=== PATIENT | female | born 1970 | race Caucasian/White ===

== ENCOUNTER 2018-07-06 10:33 | Inpatient (IN) | payer OTHER, SELFPAY ==
[2018-07-06] VITALS (21 sets, daily range): BP systolic 151–174; BP diastolic 90–113; PULSE 82–95; RESP 14–26; TEMP 36.4–37.4; O2SAT 87–100; BMI 41.1; BMI 40.1
--- NOTE | 2018-07-06 10:59 | EKG12_ITS ---
Test Reason : SOB Blood Pressure : / mmHG Vent. Rate : 084 BPM Atrial Rate : 084 BPM P-R Int : 166 ms QRS Dur : 078 ms QT Int : 422 ms P-R-T Axes : 067 046 -03 degrees QTc Int : 498 ms Normal sinus rhythm Prolonged QT Abnormal ECG Confirmed by PHAN DIAZ, NIKOLAS ([id number]), supervising film or videotape editor JUDY KAUR ([id number]) on 07/09/2018 3:34:52 PM Referred By: RITO Confirmed By:NIKOLAS CHISHOLM MD
[2018-07-06 11:41] LABS: Absolute Lymphocyte Count 0.73 X10^3/ul (0.83-4.51); Absolute Neutrophil Count 5.2 X10^3/uL (2.0-7.7); Basophil# 0.05 X10^3/uL; Basophil% 0.7 % (0-1); Hematocrit 25.5 % (37-47); Lymphocyte # 0.73 X10^3/ul (4.0); Lymphocyte % 10.9 % (19-41); Mean Corp Hgb Conc 27.5 g/gl (32-36); Mean Corpuscular Hgb 20.6 pg (27.0-32.0); Mean Corpuscular Volume 75.2 fL (81-99); Mean Platelet Vol. 8.5 fl (6.2-12.0); Monocyte# 0.42 X10^3/uL; Monocyte% 6.3 % (0-10); Neutrophil # 5.23 X10^3/uL (2.7-7.7); Neutrophil % 78.4 % (47-70); Platelet Count 166 K/mm3 (150-450); RBC Distribution Width CV 18.4 % (11.6-14.6); RBC Distribution Width SD 50.5 fl (35.1-43.9); Red Blood Count 3.39 M/mm3 (4.2-5.4); White Blood Count 6.7 K/mm3 (4.4-11.0)
[2018-07-06 11:42] LABS: POSITIVE COUNT NO; POSITIVE DIFFERENTIAL NO; POSITIVE MORPHOLOGY NO
[2018-07-06] MEDS: Acetaminophen 500 MG Tablet 1000 MG PO (11:42)
[2018-07-06] MEDS: Ondansetron 4 MG/2 ML Vial IV (11:42)
[2018-07-06] MEDS: 0.9% Normal Saline 1,000 ML 150 ML IV (11:42)
[2018-07-06] MEDS: LORazepam 2 MG/ML Syringe 1 MG IV (11:43)
[2018-07-06 11:47] LABS: International Normalized Ratio 1.1; Prothrombin Time (Protime)PT. 14.5 SECONDS (11.7-14.9)
[2018-07-06 11:48] LABS: Partial Thromboplast Time 28.6 Seconds (24.1-36.2)
[2018-07-06 11:58] LABS: Anion Gap 9 (5-15); BUN 11 mg/dL (7-18); BUN/Creat Ratio 13.4 RATIO (10-20); Calcium,Total 8.2 mg/dL (8.5-10.1); Chloride 107 mmol/L (98-107); Creatinine, Serum 0.82 mg/dL (0.55-1.02); EST Glomerular Filtration Rate 78 mL/min (>60); Est Glom Filt Rate - Afr Amer 95 mL/min (>60); Glucose 108 mg/dL (74-106); Potassium 3.5 mmol/L (3.5-5.1); Sodium Level 141 mmol/L (136-145)
--- NOTE | 2018-07-06 12:10 | RAD_ITS ---
STUDY: X-RAY CHEST REASON FOR EXAM: Female, 47 years old. Cough TECHNIQUE: Frontal and lateral views of the chest. COMPARISON: 01/24/2017 FINDINGS: Stable hiatal hernia. The lungs are clear and expanded. There is no demonstrated pleural abnormality. Stable cardiomediastinal silhouette. Normal mediastinum and mayra. Normal visualized pulmonary arteries. Normal visualized aortic arch and descending thoracic aorta. Normal visualized thoracic spine. Left rotator cuff repair. There is no demonstrated abnormality of the visualized soft tissue structures of the upper abdomen. RAD/Chest PA and Lateral IMPRESSION: No acute pulmonary findings. Stable hiatal hernia. Electronically Signed: Shaun Coleman MD at 12:44 EST Tel , Service support ,
--- NOTE | 2018-07-06 13:19 | PCM.HP.STD ---
Problem List (1) Anemia Status: Acute Qualifiers: Anemia type: iron deficiency Iron deficiency anemia type: chronic blood loss Qualified Code(s): D50.0 - Iron deficiency anemia secondary to blood loss (chronic) (2) Cardiac enzymes elevated Status: Acute (3) Iron deficiency Status: Chronic (4) Alcohol abuse Status: Chronic (5) Depression Status: Chronic Qualifiers: Depression Type: unspecified Qualified Code(s): F32.9 - Major depressive disorder, single episode, unspecified (6) GERD (gastroesophageal reflux disease) Status: Chronic Qualifiers: Esophagitis presence: esophagitis presence not specified Qualified Code(s): K21.9 - Gastro-esophageal reflux disease without esophagitis (7) Hypertension Status: Chronic Qualifiers: Hypertension type: essential hypertension Qualified Code(s): I10 - Essential (primary) hypertension (8) Pulmonary embolism Status: Chronic Qualifiers: Chronicity: chronic Acute cor pulmonale presence: without acute cor pulmonale (9) DVT (deep venous thrombosis) Status: Chronic Qualifiers: DVT location: lower extremity Affected thrombotic vein of extremity: popliteal Chronicity: chronic Laterality: right Qualified Code(s): I82.531 - Chronic embolism and thrombosis of right popliteal vein (10) Morbid obesity with BMI of 40.0-44.9, adult Status: Chronic History of Present Illness Date of Admission: 07/06/18 Chief Complaint: Dyspnea, Cough, Tarry stools. The patient is a 47 y/o F w/ PMHx: Depression and Anxiety, HTN, Tobacco use, AOCD, EtOH abuse, Suspected Chronic COPD, History of DVT/PE on Xarelto (10/2015), GERD w/ Large Hiatal Hernia, Pulmonary HTN, Morbid Obesity who presents to the [facility] ED on 07/06/18 w/ ongoing exertional dyspnea, productive cough (green and yellow sputum) x 3 weeks without any fever or chills, noting that her dyspnea symptoms have been worsening over the last 24-48 hours with recurrent dark tarry stools this past Friday and Friday. She has chronic chest pain and notes intermittent stabbing sensation chest pain, lasts seconds, usually rate3d 6-8/10, resolves completely, associated with dyspnea. Admission 01/24/17 with work-up including Fe studies consistent with Fe Deficiency anemia with administration venofer while inpatient w/ discharge on Fe sulfate and ascorbic acid BID w/ requested follow-up with Dr. King in 2 weeks for outpatient endoscopies to evaluate source of her chronic blood loss. She notes having only the upper but could not recall results. In the ED work-up included T 98, heart rate 93, BP 157/90, respiratory rate 24, 98% on room air, CBC with WBC 6.7, hemoglobin 7 ) 07/18/18 Hgb 10.8, prior to this was Hgb 8 following most recent discharge), platelet 166 without market shift, unremarkable coags, BMP with glucose 108, calcium 8.2, troponin 0.080, EKG with SR w/ T wave inversions I and aVF, chest x-ray with chronic changes with stable hiatal hernia. In the ED patient administered normal saline, Tylenol, Ativan 1 mg IV x1, Zofran. Past Medical History Past Medical History (Chronic Problems): Chronic Problems Iron deficiency (Chronic) Alcohol abuse (Chronic) Allergic rhinitis (Chronic) Depression (Chronic) GERD (gastroesophageal reflux disease) (Chronic) Tobacco user (Chronic) Hypertension (Chronic) Pulmonary embolism (Chronic) DVT (deep venous thrombosis) (Chronic) Morbid obesity with BMI of 40.0-44.9, adult (Chronic) Allergies hydrocodone [From Vicodin] Adverse Reaction (Verified 07/06/18 10:33) Itching Home Medications: Ambulatory Orders Medication Instructions Recorded Esomeprazole Mag Trihydrate 40 mg PO DAILY #30 capsule 11/09/13 [Nexium] Umeclidinium Brm/Vilanterol Tr 1 each IH DAILY 07/06/18 [Anoro Ellipta 62.5-25 Mcg INH] Surgical History: rotator cuff repair - BL, - - x 1, nasal surgery. 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 Tobacco Use: Non-smoker Alcohol: Heavy - 1/2-1 bottle wild turkey q HS. Drugs: None - *Family History Maternal History Items: Hypertension Paternal History Items: Hypertension Review of Systems Constitutional: Reports: Malaise, Weakness, Fatigue. Denies: Chills, Fever, Weight Change HEENT: Reports: Head Aches. Denies: Sinus Congestion, Sinus Drainage Cardiovascular: Reports: Chest Pain. Denies: Palpitations Respiratory: Reports: Cough, Shortness of Breath, Shortness of breath at rest, Shortness of breath upon exertion, Sputum production Gastrointestinal: Denies: Abdominal Pain, Nausea, Vomiting Genitourinary: Denies: Dysuria Musculoskeletal: Denies: Joint Pain, Joint Tenderness Skin: Denies: Rash, Wounds Neurological: Denies: Numbness, Tingling, Focal weakness Psychiatric: Reports: Depression. Denies: Anxiety, Homicidal Ideations, Suicidal Ideations Hematologic/ Lymphatic: Reports: Anemia. Denies: Easy Bruising, Easy Bleeding VTE Information - Inpt Only VTE Present on Admission: No VTE Mechan Device Prophylaxis: SCD's VTE Pharm Prophylaxis ordered?: No Reason prophylaxis not ordered:: Medical Contraindication Patient Problems: Active and Suspected Problems Cardiac enzymes elevated (Acute) Subjective: Seated upright in the ED bed, NAD, fatigued appearance, on oxygen. Objective: Physical Examination: General: awake, alert, oriented x 3 and cooperative, seated upright in the ED bed in no apparent distress. Skin: normal color, turgor, no icterus, cyanosis. HEENT: AT/NC, EOMI, PERRLA, MMM, no carotid bruits or JVD noted. Lungs: CTA bilaterally, moderate effort, mild decrease BL bases, no rales, ronchi or wheezing. Heart: Regular rate and rhythm; no gallop, rub audible. Abdomen: soft, morbidly obese, NTTP, ND, normal BS, unable to discern HSM secondary to habitus. Extremities: no cyanosis, clubbing, mild BL ankle edema. Neurological: patient awake, alert, oriented x 3; cognitive function intact; pupils equally reactive to light and accomodation; cranial nerves II-XII grossly normal, moving all 4 extremities, no focal deficits, strength moderately globally decreased secondary to acute presentation. Psychiatric: affect appears fatigued, no acute evidence of depressive or anxiety feelings. - Physical Exam Vital Signs Temp Pulse Resp BP Pulse Ox 98 F 94 24 H 174/98 H 87 07/06/18 10:34 07/06/18 10:49 07/06/18 10:49 07/06/18 10:49 07/06/18 12:19 Oxygen Delivery Method Room Air Weight: 262 lb 5.601 oz Body Mass Index (BMI) 41.1 Laboratory Tests Past 24 Hrs 1107/06/18 07/06/18 11:30 11:30 11:30 WBC 6.7 RBC 3.39 L Hgb 7.0 L Hct 25.5 L MCV 75.2 L MCH 20.6 L MCHC 27.5 L RDW 18.4 H RDW Differential 50.5 H Plt Count 166 MPV 8.5 Immature Gran % (Auto) 0.700 Neut % (Auto) 78.4 H Lymph % (Auto) 10.9 L [place] % (Auto) 6.3 Eos % (Auto) 3.0 Baso % (Auto) 0.7 Absolute Neuts (auto) 5.2 Absolute Lymphs (auto) 0.73 L Total Counted Not Reportable PT 14.5 INR 1.1 APTT 28.6 Sodium 141 Potassium 3.5 Chloride 107 Carbon Dioxide 25.0 Anion Gap 9 BUN 11 Creatinine 0.82 Estim Creat Clear Calc 80.70 Est GFR (MDRD) Af Amer 95 Est GFR (MDRD) Non-Af 78 BUN/Creatinine Ratio 13.4 Glucose 108 H Calcium 8.2 L Troponin I 0.080 H Assessment/Plan All Active Problems Cardiac enzymes elevated (Acute) Hypomagnesemia (Acute) Anemia (Acute) The patient is a 47 y/o F w/ PMHx: Depression and Anxiety, HTN, Tobacco use, AOCD, EtOH abuse, Suspected Chronic COPD, History of DVT/PE on Xarelto (10/2015), GERD w/ Large Hiatal Hernia, Pulmonary HTN, Morbid Obesity who presents to the [facility] ED on 07/06/18 w/ ongoing exertional dyspnea, productive cough (green and yellow sputum) x 3 weeks without any fever or chills, noting that her dyspnea symptoms have been worsening over the last 24-48 hours with recurrent dark tarry stools this past Friday and Friday. (1) Exertional Dyspnea, Multifactorial, Chronic COPD w/ ? Viral Bronchitis and Acute on Chronic Fe Deficiency Anemia secondary to ? GI bleed: EKG with SR w/ T wave inversions I and aVF, CXR chronic changes, initial trop 0.080, Hgb 7 decreased from prior 04/2016 10.8. Will admit to PCU, place on a monitored bed to assure no acute myocardial infarction with serial cardiac enzymes and EKGs, recent ECHO and stress testing unremarkable, does have chronic chest pain. Will place on aerosols, obtain respiratory viral panel. Recent Fe studies were remarkable for Fe deficiency anemia with placement on Fe supplementation at that time. Will maintain on IVFs, NPO after midnight, obtain serial H+H q 6 hours, T+C for 2 U per ED to continue, maintain on IV PPI. General surgery consulted for evaluation with planned prep start at 4 pm today with AM EGD/C-scope, Dr. King whom she was referred to prior. (2) Determinate cardiac enzyme: EKG with SR w/ T wave inversions I and aVF, CXR w/ chronic changes, initial trop 0.080. Will place on a monitored bed to assure no acute myocardial infarction with serial cardiac enzymes and EKGs. NG, morphine. Defer ASA given presentation. Stress testing 08/2017 unremarkable. ECHO 08/2017 w/ normal LV systolic function, EF 65%, moderate concentric LVH, mildly enlarged LA, trivial MVI, trivial TBI, trivial PVI, RVSP 51 mmHg consistent with pulmonary hypertension, impaired relaxation left ventricle. She is established w/ Dr. Lugo for her pulmonary HTN. (3) EtOH Abuse: Patient notes routine consumption of 1/2 to 1 bottle wild turkey per day. Will maintain on CIWA protocol, MVI, thiamine and folic acid. Mag, phos pending. CM consulted for sobriety information. (4) FADY: Only notes using 2L NC q HS. (5) Hypertension: Restart lisinopril which she was on prior, add low dose HCTZ if needed, PRN Hydralazine. (6) Tobacco Abuse: Encouraged continued cessation, quit in October. (7) Morbid Obesity: Weight loss and lifestyle changes encouraged, nutrition consulted. (8) GERD w/ Large Hiatal Hernia: IV PPI. (9) History of DVT/PE: Previously on Xarelto, diagnosed 10/2015. (10) DVT Prophylaxis: SCDs, hold chemoprophylaxis for acute presentation #1. Code Visit Inpatient E&M: 18242 Init Hosp L3
--- NOTE | 2018-07-06 13:36 | HP.PCM_ITS ---
Problem List (1) Anemia Status: Acute Qualifiers: Anemia type: iron deficiency Iron deficiency anemia type: chronic blood loss Qualified Code(s): D50.0 - Iron deficiency anemia secondary to blood loss (chronic) (2) Cardiac enzymes elevated Status: Acute (3) Iron deficiency Status: Chronic (4) Alcohol abuse Status: Chronic (5) Depression Status: Chronic Qualifiers: Depression Type: unspecified Qualified Code(s): F32.9 - Major depressive disorder, single episode, unspecified (6) GERD (gastroesophageal reflux disease) Status: Chronic Qualifiers: Esophagitis presence: esophagitis presence not specified Qualified Code(s): K21.9 - Gastro-esophageal reflux disease without esophagitis (7) Hypertension Status: Chronic Qualifiers: Hypertension type: essential hypertension Qualified Code(s): I10 - Essential (primary) hypertension (8) Pulmonary embolism Status: Chronic Qualifiers: Chronicity: chronic Acute cor pulmonale presence: without acute cor pulmonale (9) DVT (deep venous thrombosis) Status: Chronic Qualifiers: DVT location: lower extremity Affected thrombotic vein of extremity: popliteal Chronicity: chronic Laterality: right Qualified Code(s): I82.531 - Chronic embolism and thrombosis of right popliteal vein (10) Morbid obesity with BMI of 40.0-44.9, adult Status: Chronic History of Present Illness Date of Admission: 07/06/18 Chief Complaint: Dyspnea, Cough, Tarry stools. The patient is a 47 y/o F w/ PMHx: Depression and Anxiety, HTN, Tobacco use, AOCD, EtOH abuse, Suspected Chronic COPD, History of DVT/PE on Xarelto (10/2015), GERD w/ Large Hiatal Hernia, Pulmonary HTN, Morbid Obesity who presents to the [facility] ED on 07/06/18 w/ ongoing exertional dyspnea, productive cough (green and yellow sputum) x 3 weeks without any fever or chills, noting that her dyspnea symptoms have been worsening over the last 24-48 hours with recurrent dark tarry stools this past Friday and Friday. She has chronic chest pain and notes intermittent stabbing sensation chest pain, lasts seconds, usually rate3d 6-8/10, resolves completely, associated with dyspnea. Admission 01/24/17 with work-up including Fe studies consistent with Fe Deficiency anemia with administration venofer while inpatient w/ discharge on Fe sulfate and ascorbic acid BID w/ requested follow-up with Dr. King in 2 weeks for outpatient endoscopies to evaluate source of her chronic blood loss. She notes having only the upper but could not recall results. In the ED work-up included T 98, heart rate 93, BP 157/90, respiratory rate 24, 98% on room air, CBC with WBC 6.7, hemoglobin 7 ) 07/18/18 Hgb 10.8, prior to this was Hgb 8 following most recent discharge), platelet 166 without market shift, unremarkable coags, BMP with glucose 108, calcium 8.2, troponin 0.080, EKG with SR w/ T wave inversions I and aVF, chest x-ray with chronic changes with stable hiatal hernia. In the ED patient administered normal saline, Tylenol, Ativan 1 mg IV x1, Zofran. Past Medical History Past Medical History (Chronic Problems): Chronic Problems Iron deficiency (Chronic) Alcohol abuse (Chronic) Allergic rhinitis (Chronic) Depression (Chronic) GERD (gastroesophageal reflux disease) (Chronic) Tobacco user (Chronic) Hypertension (Chronic) Pulmonary embolism (Chronic) DVT (deep venous thrombosis) (Chronic) Morbid obesity with BMI of 40.0-44.9, adult (Chronic) Allergies hydrocodone [From Vicodin] Adverse Reaction (Verified 07/06/18 10:33) Itching Home Medications: Ambulatory Orders Medication Instructions Recorded Esomeprazole Mag Trihydrate 40 mg PO DAILY #30 capsule 11/09/13 [Nexium] Umeclidinium Brm/Vilanterol Tr 1 each IH DAILY 07/06/18 [Anoro Ellipta 62.5-25 Mcg INH] Surgical History: rotator cuff repair - BL, - - x 1, nasal surgery. 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 Tobacco Use: Non-smoker Alcohol: Heavy - 1/2-1 bottle wild turkey q HS. Drugs: None - *Family History Maternal History Items: Hypertension Paternal History Items: Hypertension Review of Systems Constitutional: Reports: Malaise, Weakness, Fatigue. Denies: Chills, Fever, Weight Change HEENT: Reports: Head Aches. Denies: Sinus Congestion, Sinus Drainage Cardiovascular: Reports: Chest Pain. Denies: Palpitations Respiratory: Reports: Cough, Shortness of Breath, Shortness of breath at rest, Shortness of breath upon exertion, Sputum production Gastrointestinal: Denies: Abdominal Pain, Nausea, Vomiting Genitourinary: Denies: Dysuria Musculoskeletal: Denies: Joint Pain, Joint Tenderness Skin: Denies: Rash, Wounds Neurological: Denies: Numbness, Tingling, Focal weakness Psychiatric: Reports: Depression. Denies: Anxiety, Homicidal Ideations, [place] Ideations Hematologic/ Lymphatic: Reports: Anemia. Denies: Easy Bruising, Easy Bleeding VTE Information - Inpt Only VTE Present on Admission: No VTE Mechan Device Prophylaxis: SCD's VTE Pharm Prophylaxis ordered?: No Reason prophylaxis not ordered:: Medical Contraindication Patient Problems: Active and Suspected Problems Cardiac enzymes elevated (Acute) Subjective: Seated upright in the ED bed, NAD, fatigued appearance, on oxygen. Objective: Physical Examination: General: awake, alert, oriented x 3 and cooperative, seated upright in the ED bed in no apparent distress. Skin: normal color, turgor, no icterus, cyanosis. HEENT: AT/NC, EOMI, PERRLA, MMM, no carotid bruits or JVD noted. Lungs: CTA bilaterally, moderate effort, mild decrease BL bases, no rales, ronch i or wheezing. Heart: Regular rate and rhythm; no gallop, rub audible. Abdomen: soft, morbidly obese, NTTP, ND, normal BS, unable to discern HSM secondary to habitus. Extremities: no cyanosis, clubbing, mild BL ankle edema. Neurological: patient awake, alert, oriented x 3; cognitive function intact; pupils equally reactive to light and accomodation; cranial nerves II-XII grossly normal, moving all 4 extremities, no focal deficits, strength moderately globally decreased secondary to acute presentation. Psychiatric: affect appears fatigued, no acute evidence of depressive or anxiety feelings. - Physical Exam Vital Signs Temp Pulse Resp BP Pulse Ox 98 F 94 24 H 174/98 H 87 07/06/18 10:34 07/06/18 10:49 07/06/18 10:49 07/06/18 10:49 07/06/18 12:19 Oxygen Delivery Method Room Air Weight: 262 lb 5.601 oz Body Mass Index (BMI) 41.1 Laboratory Tests Past 24 Hrs 07/06/18 07/06/18 07/06/18 11:30 11:30 11:30 WBC 6.7 RBC 3.39 L Hgb 7.0 L Hct 25.5 L MCV 75.2 L MCH 20.6 L MCHC 27.5 L RDW 18.4 H RDW Differential 50.5 H Plt Count 166 MPV 8.5 Immature Gran % (Auto) 0.700 Neut % (Auto) 78.4 H Lymph % (Auto) 10.9 L [place] % (Auto) 6.3 Eos % (Auto) 3.0 Baso % (Auto) 0.7 Absolute Neuts (auto) 5.2 Absolute Lymphs (auto) 0.73 L Total Counted Not Reportable PT 14.5 INR 1.1 APTT 28.6 Sodium 141 Potassium 3.5 Chloride 107 Carbon Dioxide 25.0 Anion Gap 9 BUN 11 Creatinine 0.82 Estim Creat Clear Calc 80.70 Est GFR (MDRD) Af Amer 95 Est GFR (MDRD) Non-Af 78 BUN/Creatinine Ratio 13.4 Glucose 108 H Calcium 8.2 L Troponin I 0.080 H Assessment/Plan All Active Problems Cardiac enzymes elevated (Acute) Hypomagnesemia (Acute) Anemia (Acute) The patient is a 47 y/o F w/ PMHx: Depression and Anxiety, HTN, Tobacco use, AOCD, EtOH abuse, Suspected Chronic COPD, History of DVT/PE on Xarelto (10/2015), GERD w/ Large Hiatal Hernia, Pulmonary HTN, Morbid Obesity who presents to the [facility] ED on 07/06/18 w/ ongoing exertional dyspnea, productive cough (green and yellow sputum) x 3 weeks without any fever or chills, noting that her dyspnea symptoms have been worsening over the last 24-48 hours with recurrent dark tarry stools this past Friday and Friday. (1) Exertional Dyspnea, Multifactorial, Chronic COPD w/ ? Viral Bronchitis and Acute on Chronic Fe Deficiency Anemia secondary to ? GI bleed: EKG with SR w/ T wave inversions I and aVF, CXR chronic changes, initial trop 0.080, Hgb 7 decreased from prior 04/2016 10.8. Will admit to PCU, place on a monitored bed to assure no acute myocardial infarction with serial cardiac enzymes and EKGs, recent ECHO and stress testing unremarkable, does have chronic chest pain. Will place on aerosols, obtain respiratory viral panel. Recent Fe studies were remarkable for Fe deficiency anemia with placement on Fe supplementation at that time. Will maintain on IVFs, NPO after midnight, obtain serial H+H q 6 hours, T+C for 2 U per ED to continue, maintain on IV PPI. General surgery consulted for evaluation with planned prep start at 4 pm today with AM EGD/C-scope, Dr. King whom she was referred to prior. (2) Determinate cardiac enzyme: EKG with SR w/ T wave inversions I and aVF, CXR w/ chronic changes, initial trop 0.080. Will place on a monitored bed to assure no acute myocardial infarction with serial cardiac enzymes and EKGs. NG, morphine. Defer ASA given presentation. Stress testing 08/2017 unremarkable. ECHO 08/2017 w/ normal LV systolic function, EF 65%, moderate concentric LVH, mildly enlarged LA, trivial MVI, trivial TBI, trivial PVI, RVSP 51 mmHg consistent with pulmonary hypertension, impaired relaxation left ventricle. She is established w/ Dr. Lugo for her pulmonary HTN. (3) EtOH Abuse: Patient notes routine consumption of 1/2 to 1 bottle wild turkey per day. Will maintain on CIWA protocol, MVI, thiamine and folic acid. Mag, phos pending. CM consulted for sobriety information. (4) FADY: Only notes using 2L NC q HS. (5) Hypertension: Restart lisinopril which she was on prior, add low dose HCTZ if needed, PRN Hydralazine. (6) Tobacco Abuse: Encouraged continued cessation, quit in October. (7) Morbid Obesity: Weight loss and lifestyle changes encouraged, nutrition consulted. (8) GERD w/ Large Hiatal Hernia: IV PPI. (9) History of DVT/PE: Previously on Xarelto, diagnosed 10/2015. (10) DVT Prophylaxis: SCDs, hold chemoprophylaxis for acute presentation #1. Code Visit Inpatient E&M: 67197 Init Hosp L3
[2018-07-06 14:54] LABS: Hematocrit 24.9 % (37-47); Hemoglobin 6.9 g/dl (12.0-15.0)
[2018-07-06 15:12] LABS: Magnesium 1.5 mg/dL (1.6-2.6); Phosphorus 2.8 mg/dL (2.5-4.9)
--- NOTE | 2018-07-06 17:10 | ED.VISSUMM ---
- ER Visit Summary Date of Service: 07/06/18 Chief Complaint: Shortness of breath History of Present Illness: The patient is a [address] Lugo and Dr. Pang. She reports his shortness of breath began 3 weeks ago and is gradually worsened. Severe at worst moderate currently. Is worsened by walking around. Is unchanged by lying flat. She reports is relieved by rest. She reports that she has chronic chest pain. The last episode was yesterday. It lasted seconds while she was walking. She describes as a stabbing pain was 6 out of 10 at worst. She is pain-free currently. Patient reports she has a cough productive green/yellow sputum with occasional spot of blood. She had chills, but no fever. She reports she has had nausea, but no vomiting. She states that she had a black tarry stool last week, but not since. She reports that she has a headache that stated 10 severity. She does have a history of similar headaches. Patient reports she has had similar problems with anemia in the past. She reports that she also has pulmonary hypertension. Patient reports to me that she drinks half 1/5 of liquor a day. Physical Examination: Vitals: 98.0, 174/98, 94, 24, 87% on room air which is hypoxic. General: Well-nourished and well-developed. Head: Normocephalic atraumatic. Neck: Supple, no lymphadenopathy. No JVD. Nontender. Cardiovascular: Regular rate and rhythm. No murmurs. Respiratory: No respiratory distress. Clear to auscultation bilaterally. Abdominal: Soft, nontender, nondistended, normal bowel sounds. No guarding, rebound, or peritoneal signs. Back: Nontender. Extremities: Nontender, 2+ pitting edema over lower extremities bilaterally. Skin: Normal color, no rash. Neurologic: Alert and oriented ?3. Cranial nerves II through XII are intact. Normal strength and sensation. Psych: Normal affect. Test Results: EKG is sinus at [address] changes. She has T wave inversions in leads I and aVF. Troponin 0 0.08. INR is 1.1. PTT is 28.6. Chem-7 more for calcium 8.2 glucose 108. Hemoglobin is 7.0 with hematocrit 25.5. Her last hemoglobin was in July 2017. At that time she was 10.8. 7 neutrophils 78 and lymphocytes of 11. Chest x-ray shows chronic changes. Emergency Department Course and Treatment: Patient was typed and crossed for 2 units packed red blood cells. She was given a dose of Ativan IV. She is resting comfortably. Treatment Plan: Patient was discussed with Dr. Christopher. She will be admitted to the hospital for further evaluation and treatment. Disposition: Admitted in stable condition. Impression: 1. Anemia. 2. Indeterminate troponin. 3. Hypoxia. 4. Pulmonary hypertension. 5. Critical care time 30 minutes. This note was generated with [employer] dictation software. It may contain incorrect words, spelling, and punctuation that were not noted in review of the chart prior to signing ED Disposition - Plan for ED Patient: Disposition: Acute Care Hospital [facility] Chief Complaint: Shortness of Breath
[2018-07-06] MEDS: Thiamine Hydrochloride 100 MG Tablet PO (17:22)
[2018-07-06] MEDS: Ferrous Gluconate 324 MG Tablet PO (17:22)
[2018-07-06] MEDS: Electrolyte Solution/Peg's 4000 ML PO (18:19)
[2018-07-06] MEDS: 0.9% Normal Saline 1,000 ML 125 ML IV (18:20)
[2018-07-06] MEDS: Ipratropium/Albuterol Sulfate 3 ML AMPUL.NEB INHALATION (18:44)
[2018-07-06] MEDS: 0.9% NaCl Peripheral Flush Adult/Peds IV (18:56)
[2018-07-06] MEDS: oxyCODONE 5 MG Tablet PO (20:03)
--- NOTE | 2018-07-06 21:33 | NURSING ---
2nd unit blood start time wrong, actually began at 2133
[2018-07-06] MEDS: guaiFENesin 1,200 MG Tablet 1200 MG PO (21:43)
[2018-07-07] VITALS (21 sets, daily range): BP systolic 138–166; BP diastolic 82–99; PULSE 78–105; RESP 16–21; TEMP 36.9–38.3; O2SAT 90–97
--- NOTE | 2018-07-07 | IMM_PTH ---
PATIENT: NEYMAR SHEPHERD LOC: [facility] U#:[id number] AGE/SX: 47/F ROOM: [facility] RE07/06/[address]: Dr. Reji Shay DO : 1970 BED: 1 DIS: 07/08/2018 SPEC #: [id number] RECD: 07/08/18 14:03 STATUS: DEMETRIUS REQ #: [id number] TOO: 07/07/18 00:[address]: Manuel King DEPT: IMMUNOHISTOCHEMISTRY RECD BY: Maya Cline ENTERED: 07/08/18 14:04 SP TYPE: IMMUNO OTHR DR: MD Dr. Reji Rand DO Dr. Paul Nielsen, MD Tissues: A - Stomach, NOS Procedures: H Pylori (initial) PHYSICIAN & INSTITUTION [place] [id number] SPECIMEN INFORMATION: Tissue Source: A - Antral biopsy Clinical Info: Anemia, melena Specimen Number: [id number] CPT code: 85351 METHODOLOGY: Deparaffinized sections of prefer/formalin-fixed tissue or PAP/DQ stained slides are incubated with monoclonal/polyclonal antibodies/oligonucleotide probes. Localization is made via biotin free immunoperoxidase method. Appropriate controls are performed and reacted as expected. Results on target cell population are indicated in the following table: RESULTS: ANTIBODY / CLONE RESULT Block A H Pylori (polyclonal) negative These tests were developed and their performance characteristics determined by [facility]. They may not have been cleared or approved by the U.S. Food and Drug Administration. The FDA has determined that such clearance or approval is not necessary. INTERPRETATION: A. Antral biopsy: Negative for Helicobacter pylori organisms. SJ:allie 07/09/18
[2018-07-07] MEDS: 0.9% NaCl Peripheral Flush Adult/Peds IV ×3 (00:17→20:59)
[2018-07-07] MEDS: hydrALAZINE 20 MG/ML Vial 10 MG IV (00:18)
--- NOTE | 2018-07-07 00:51 | NURSING ---
TAR vitals documented at 0034 were actually taken at 0049
[2018-07-07] MEDS: Morphine 2 MG/ML Syringe IV (01:22)
[2018-07-07 03:20] LABS: Anion Gap 8 (5-15); BUN 9 mg/dL (7-18); BUN/Creat Ratio 11.6 RATIO (10-20); Calcium,Total 7.7 mg/dL (8.5-10.1); Chloride 104 mmol/L (98-107); Creatinine, Serum 0.77 mg/dL (0.55-1.02); EST Glomerular Filtration Rate 84 mL/min (>60); Est Glom Filt Rate - Afr Amer 102 mL/min (>60); Estimated Creatinine Clearance 85.94 ml/min; Glucose 100 mg/dL (74-106); Potassium 3.8 mmol/L (3.5-5.1); Sodium Level 138 mmol/L (136-145)
[2018-07-07 03:37] LABS: Absolute Lymphocyte Count 0.74 X10^3/ul (0.83-4.51); Absolute Neutrophil Count 7.4 X10^3/uL (2.0-7.7); Basophil# 0.03 X10^3/uL; Basophil% 0.3 % (0-1); Eosinophil# 0.18 X10^3/uL; Hematocrit 29.9 % (37-47); Hemoglobin 8.6 g/dl (12.0-15.0); Lymphocyte # 0.74 X10^3/ul (4.0); Lymphocyte % 8.3 % (19-41); Mean Corp Hgb Conc 28.8 g/gl (32-36); Mean Corpuscular Hgb 22.3 pg (27.0-32.0); Mean Corpuscular Volume 77.5 fL (81-99); Mean Platelet Vol. 9.6 fl (6.2-12.0); Monocyte# 0.54 X10^3/uL; Neutrophil % 82.7 % (47-70); Platelet Count 183 K/mm3 (150-450); RBC Distribution Width CV 18.3 % (11.6-14.6); RBC Distribution Width SD 51.8 fl (35.1-43.9); Red Blood Count 3.86 M/mm3 (4.2-5.4)
[2018-07-07 03:41] LABS: POSITIVE COUNT NO; POSITIVE DIFFERENTIAL NO; POSITIVE MORPHOLOGY NO
[2018-07-07] MEDS: Acetaminophen 325 MG Tablet 650 MG PO (03:58)
[2018-07-07] MEDS: 0.9% Normal Saline 1,000 ML 125 ML IV (03:58)
[2018-07-07] MEDS: oxyCODONE 5 MG Tablet PO ×3 (03:59→20:49)
--- NOTE | 2018-07-07 04:02 | EKG12_ITS ---
Test Reason : CP/AM Blood Pressure : / mmHG Vent. Rate : 084 BPM Atrial Rate : 084 BPM P-R Int : 164 ms QRS Dur : 074 ms QT Int : 380 ms P-R-T Axes : 061 058 013 degrees QTc Int : 449 ms Normal sinus rhythm Normal ECG When compared with ECG of 06-JUL-2018 11:14, MANUAL COMPARISON REQUIRED, DATA IS UNCONFIRMED Confirmed by PHAN DIAZ, NIKOLAS ([id number]), fan mail editor JUDY KAUR ([id number]) on 07/09/2018 4:01:12 PM Referred By: ALBAN Confirmed By:NIKOLAS CHISHOLM MD
[2018-07-07] MEDS: LORazepam 1 MG Tablet 2 MG PO (04:21)
--- NOTE | 2018-07-07 04:24 | NURSING ---
This RN medicated patient for 10 headache. While doing so, patient stated she developed mild chest pain described as nonradiating, pressure to mid sternum. Stat EKG unremarkable. PRN CIWA complete, 9. PO Ativan passed per order. Patient verbalized this was a panic attack related to the onset of the chest pain which occurs for her at times at home
[2018-07-07] MEDS: Ipratropium/Albuterol Sulfate 3 ML AMPUL.NEB INHALATION ×3 (06:46→19:06)
--- NOTE | 2018-07-07 10:05 | EGD_PTH ---
PATIENT: NEYMAR SHEPHERD LOC: [facility] U#:[id number] AGE/SX: 47/F ROOM: [facility] RE07/06/[address]: Dr. Reji Shay DO : 1970 BED: 1 DIS: 07/08/2018 SPEC #: [id number] RECD: 07/07/18 12:22 STATUS: DEMETRIUS REQ #: [id number] TOO: 07/07/18 10:[address]: Manuel King DEPT: SURGICAL PATHOLOGY RECD BY: Ana Crowe ENTERED: 07/07/18 12:48 SP TYPE: EGD BIOPSY OTHR DR: MD Dr. Reji Rand DO Dr. Paul Nielsen, MD Dr. Richard Guttman, MD Tissues: A - Gastric mucous membrane B - Gastric mucous membrane Procedures: Special Stain Group II Surgery Specimen Level IV Alcian Blue/PAS (control) Comments: @ Ordering doctor for SSII edited from to DR.RGUTTM Hannah by KAVYA at 07/08/18 110 @ Ordering doctor for SUIV edited from to DR.RGUTTM Hannah by KAVYA at 07/08/18 1109 @ Ordering doctor for AB-PAS edited from to DR.RGUTTM Hannah by KAVYA at 07/08/18 1109 @ Submitting doctor edited from to DR.RGUTTM [place] HOFF at 07/08/18 1109 HEADER OPERATION: Colonoscopy, EGD ([facility]) PRE-OP DIAGNOSIS: Anemia, melena TISSUE SUBMITTED: A. Antral biopsy, B. GE junction MICROSCOPIC DIAGNOSIS A. Antral biopsy: Mild gastritis. See microscopic description and comment. B. GE junction, biopsy: A fragment of gastroesophageal mucosa with chronic inflammation. Intestinal metaplasia (goblet cell metaplasia) is not identified. See comment. SJ:rg 07/08/18 COMMENT A. The results of immunohistochemistry for Helicobacter pylori will be reported separately ([id number]). B. Alcian blue/PAS stain with matched control is used in the evaluation of the specimen. MICROSCOPIC DESCRIPTION Slides are reviewed. A. The specimen shows fragments of gastric mucosa with chronic inflammatory cell infiltrates in the lamina propria consisting of lymphocytes and plasma cells, consistent with mild chronic gastritis. GROSS DESCRIPTION A - Received in fixative is one container labeled with the patient's name and designated antral biopsy. The specimen consists of one irregular fragment of light cloud soft tissue that measures 0.6 x 0.2 x 0.1 cm. The specimen is totally submitted in one cassette. B - Received in fixative is one container labeled with the patient's name and designated GE junction biopsy. The specimen consists of one irregular fragment of light cloud soft tissue that measures 0.4 x 0.2 x 0.1 cm. The specimen is totally submitted in one cassette. / SJ:rg 07/07/18 TC:3 CPT: 81939 x2, 12478
--- NOTE | 2018-07-07 10:11 | CASEMGMT ---
This RN CM to room to complete CM assessment and pt is out of the dept for testing at this time. Will attempt again later. SStaten RN CM
--- NOTE | 2018-07-07 10:49 | PCM.CONS.GEN ---
Reason for Consult Date of Consultation: 07/07/18 History of Present Illness: The patient is a 47 year old F presents with anemia and melena. patient has a long-standing history of alcohol abuse. She notes she gets the DVTs if she stops drinking. Last week she noted black tarry stools for 2 days. She presented emerged permanent with shortness of breath. She feels this is secondary to her pulmonary hypertension which her accounts payable payroll coordinator-Dr. Moore feels is due to a previous history of smoking and probably sleep apnea. she was found to have a hemoglobin of 7. She is currently Hemoccult negative. I was contacted to because I have seen the patient in the past. she underwent upper endoscopy by Dr. Miguel Barnes in August 2015 for reflux symptoms. She was found of a moderate-sized hiatal hernia, grade 1 reflux esophagitis and mild gastritis. She denies ever having had lower endoscopy previously. I last saw the patient in October 2016 when she was complaining of left lower quadrant pain and a question of a left inguinal hernia. My note at that time demonstrated: The patient notes complaints of left lower quadrant pain which is actually more in the left inguinal area. ?This is been present for approximately 6 months. ?She will notice a stabbing pain in the left lower quadrant which occurs about 30-40 seconds. ?The pain does not radiate. ?This is not related to eating food. ?She follows up with her forging press operator-Dr. Flavia Oshea. ?She was seen by her in the office for an annual visit on September 06, 2016. ?She noted her complaint of this left lower quadrant pain. ?She had undergone a total vaginal hysterectomy in 2003. ?There were felt to be no gynecologic reasons for her symptoms. ?She was not noted to have a left inguinal hernia on exam. ?The patient was referred for CT scan of the abdomen and pelvis. ?This performed at [facility] on September 16, 2016. ?The patient was noted to have colon in the right upper quadrant interposed between her anterior liver-this was listed as chiladiti's?sign. ?But otherwise no intra-abdominal pathology was noted. ? The patient has?not had?a previous colonoscopy. ?She has had a prior history of upper GI symptoms and underwent upper endoscopy which demonstrated a hiatal hernia. ?The patient also had 2 DVTs with pulmonary emboli in October and April 2016. ?These were noted to be relatively small pulmonary emboli. ?She had a DVT in the left leg. ?She understands this was small. ?She has not had a follow-up duplex scan since that time. she notes no current issues with abdominal pain. She denies hematemesis. She does note discomfort in her umbilicus for the last 5 months and has a small umbilical hernia on exam. Past Medical History Past Medical History (Chronic Problems): Chronic Problems Iron deficiency (Chronic) Alcohol abuse (Chronic) Allergic rhinitis (Chronic) Depression (Chronic) GERD (gastroesophageal reflux disease) (Chronic) Tobacco user (Chronic) Hypertension (Chronic) Pulmonary embolism (Chronic) DVT (deep venous thrombosis) (Chronic) Morbid obesity with BMI of 40.0-44.9, adult (Chronic) Allergies hydrocodone [From Vicodin] Adverse Reaction (Verified 07/06/18 10:33) Itching Home Medications: Ambulatory Orders Medication Instructions Recorded Esomeprazole Mag Trihydrate 40 mg PO DAILY 07/06/18 [Nexium] Umeclidinium Brm/Vilanterol Tr 1 each IH DAILY 07/06/18 [Anoro Ellipta 62.5-25 Mcg INH] Surgical History: rotator cuff repair - BL, - - x 1, nasal surgery. Psychiatric History: Depression RESTORATIVE AIDE History: No pertinent RESTORATIVE AIDE history Lives: Spouse/ Significant Other, With Family Smoking Status: Former smoker Tobacco Use: Non-smoker Alcohol: Heavy - 1/2-1 bottle wild turkey q HS. Drugs: None - *Family History Maternal History Items: Hypertension Paternal History Items: Hypertension Review of Systems Constitutional: Denies: Chills, Fever, Weight Change HEENT: Denies: Head Aches, Sinus Congestion, Sinus Drainage Cardiovascular: Denies: Chest Pain, Palpitations Respiratory: Reports: Shortness of breath upon exertion. Denies: Cough, Shortness of breath at rest, Sputum production Gastrointestinal: Reports: Melena. Denies: Abdominal Pain, Nausea, Vomiting Genitourinary: Denies: Dysuria Musculoskeletal: Denies: Joint Pain, Joint Tenderness Skin: Denies: Rash, Wounds Neurological: Denies: Numbness, Tingling, Focal weakness Psychiatric: Denies: Anxiety, Depression, Homicidal Ideations, Suicidal Ideations Hematologic/ Lymphatic: Denies: Easy Bruising, Easy Bleeding Patient Problems: Active and Suspected Problems Cardiac enzymes elevated (Acute) - Physical Exam General: Alert, Oriented x3, Cooperative Lungs: Diminished, Rales Cardiovascular: Regular rate, Regular Rhythm Abdomen: Bowel Sounds Present, Soft, Non Tender Vital Signs Temp Pulse Resp BP Pulse Ox 98.6 F 92 18 151/89 H 93 07/07/18 08:25 07/07/18 08:25 07/07/18 08:26 07/07/18 08:25 07/07/18 08:25 Oxygen Flow Rate (L/min) 2 Oxygen Delivery Method Room Air Weight: 116.2 kg Body Mass Index (BMI) 40.1 Intake and Output for Last 24 Hours 07/05/18 07/06/18 07/07/18 23:59 23:59 23:59 Intake Total 5339 / 5339 595.6 / 595.6 Balance 5339 / 5339 595.6 / 595.6 Microbiology Past 72 Hours 07/06/18 17:10 Respiratory Panel (PCR) - Final Mucosa - Nose Laboratory Tests Past 24 Hrs 07/06/18 07/06/18 07/06/18 11:30 11:30 11:30 WBC 6.7 RBC 3.39 L Hgb 7.0 L Hct 25.5 L MCV 75.2 L MCH 20.6 L MCHC 27.5 L RDW 18.4 H RDW Differential 50.5 H Plt Count 166 MPV 8.5 Immature Gran % (Auto) 0.700 Neut % (Auto) 78.4 H Lymph % (Auto) 10.9 L [place] % (Auto) 6.3 Eos % (Auto) 3.0 Baso % (Auto) 0.7 Absolute Neuts (auto) 5.2 Absolute Lymphs (auto) 0.73 L Total Counted Not Reportable PT 14.5 INR 1.1 APTT 28.6 Sodium 141 Potassium 3.5 Chloride 107 Carbon Dioxide 25.0 Anion Gap 9 BUN 11 Creatinine 0.82 Estim Creat Clear Calc 80.70 Est GFR (MDRD) Af Amer 95 Est GFR (MDRD) Non-Af 78 BUN/Creatinine Ratio 13.4 Glucose 108 H Calcium 8.2 L Phosphorus Magnesium Troponin I 0.080 H Blood Type Antibody Screen Crossmatch 07/06/18 07/06/18 07/06/18 14:28 14:32 14:32 WBC RBC Hgb 6.9 L Hct 24.9 L MCV MCH MCHC RDW RDW Differential Plt Count MPV Immature Gran % (Auto) Neut % (Auto) Lymph % (Auto) [place] % (Auto) Eos % (Auto) Baso % (Auto) Absolute Neuts (auto) Absolute Lymphs (auto) Total Counted PT INR APTT Sodium Potassium Chloride Carbon Dioxide Anion Gap BUN Creatinine Estim Creat Clear Calc Est GFR (MDRD) Af Amer Est GFR (MDRD) Non-Af BUN/Creatinine Ratio Glucose Calcium Phosphorus 2.8 Magnesium 1.5 L Troponin I Blood Type A NEGATIVE Antibody Screen NEGATIVE Crossmatch See Detail 07/06/18 07/06/18 07/07/18 14:32 17:26 02:41 WBC RBC Hgb Hct MCV MCH MCHC RDW RDW Differential Plt Count MPV Immature Gran % (Auto) Neut % (Auto) Lymph % (Auto) [place] % (Auto) Eos % (Auto) Baso % (Auto) Absolute Neuts (auto) Absolute Lymphs (auto) Total Counted PT INR APTT Sodium 138 Potassium 3.8 Chloride 104 Carbon Dioxide 26.0 Anion Gap 8 BUN 9 Creatinine 0.77 Estim Creat Clear Calc 85.94 Est GFR (MDRD) Af Amer 102 Est GFR (MDRD) Non-Af 84 BUN/Creatinine Ratio 11.6 Glucose 100 Calcium 7.7 L Phosphorus Magnesium Troponin I 0.080 H 0.072 H Blood Type Antibody Screen Crossmatch 07/07/18 02:41 WBC 9.0 RBC 3.86 L Hgb 8.6 L Hct 29.9 L MCV 77.5 L MCH 22.3 L MCHC 28.8 L RDW 18.3 H RDW Differential 51.8 H Plt Count 183 MPV 9.6 Immature Gran % (Auto) 0.700 Neut % (Auto) 82.7 H Lymph % (Auto) 8.3 L [place] % (Auto) 6.0 Eos % (Auto) 2.0 Baso % (Auto) 0.3 Absolute Neuts (auto) 7.4 Absolute Lymphs (auto) 0.74 L Total Counted Not Reportable PT INR APTT Sodium Potassium Chloride Carbon Dioxide Anion Gap BUN Creatinine Estim Creat Clear Calc Est GFR (MDRD) Af Amer Est GFR (MDRD) Non-Af BUN/Creatinine Ratio Glucose Calcium Phosphorus Magnesium Troponin I Blood Type Antibody Screen Crossmatch Assessment/Plan All Active Problems Cardiac enzymes elevated (Acute) Hypomagnesemia (Acute) Anemia (Acute) anemia-episodic melena-alcohol abuse I plan to perform upper and lower endoscopy. There is somewhat increased risk due to the patient's pulmonary issues. The patient is not of a diagnosis of cirrhosis but with chronic alcohol abuse this is a consideration. The patient herself the risks, benefits, complications and possible alternatives of endoscopy. She consents to the above procedure. We proceeded with bowel prep of Gerardo yesterday and we'll proceed with endoscopy today.
--- NOTE | 2018-07-07 10:55 | CON.PCM_ITS ---
Reason for Consult Date of Consultation: 07/07/18 History of Present Illness: The patient is a 47 year old F presents with anemia and melena. patient has a long-standing history of alcohol abuse. She notes she gets the DVTs if she stops drinking. Last week she noted black tarry stools for 2 days. She pre sented emerged permanent with shortness of breath. She feels this is secondary to her pulmonary hypertension which her cotton agent-Dr. Singh of feels is due to a previous history of smoking and probably sleep apnea. she was found to have a hemoglobin of 7. She is currently Hemoccult negative. I was contacted to because I have seen the patient in the past. she underwent upper endoscopy by Dr. Miguel Barnes in August 2015 for reflux symptoms. She was found of a moderate-sized hiatal hernia, grade 1 reflux esophagitis and mild gastritis. She denies ever having had lower endoscopy pre viously. I last saw the patient in October 2016 when she was complaining of left lower quadrant pain and a question of a left inguinal hernia. My note at that time demonstrated: The patient notes complaints of left lower quadrant pain which is actually more in the left inguinal area. ?This is been present for approximately 6 months. ?She will notice a stabbing pain in the left lower quadrant which occurs about 30-40 seconds. ?The pain does not radiate. ?This is not related to eating food. ?She follows up with her auto inspection specialist-Dr. Flavia Oshea. ?She was seen by her in the office for an annual visit on September 06, 2016. ?She noted her complaint of this left lower quadrant pain. ?She had undergone a total vaginal hysterectomy in 2003. ?There were felt to be no gynecologic reasons for her symptoms. ?She was not noted to have a left inguinal hernia on exam. ?The patient was referred for CT scan of the abdomen and pelvis. ?This performed at [facility] on September 16, 2016. ?The patient was noted to have colon in the right upper quadrant interposed between her anterior liver-this was listed as chiladiti's?sign. ?But otherwise no intra-abdominal pathology was noted. ? The patient has?not had?a previous colonoscopy. ?She has had a prior history of upper GI symptoms and underwent upper endoscopy which demonstrated a hiatal hernia. ?The patient also had 2 DVTs with pulmonary emboli in October and April 2016. ?These were noted to be relatively small pulmonary emboli. ?She had a DVT in the left leg. ?She understands this was small. ?She has not had a follow-up duplex scan since that time. she notes no current issues with abdominal pain. She denies hematemesis. She does note discomfort in her umbilicus for the last 5 months and has a small umbilical hernia on exam. Past Medical History Past Medical History (Chronic Problems): Chronic Problems Iron deficiency (Chronic) Alcohol abuse (Chronic) Allergic rhinitis (Chronic) Depression (Chronic) GERD (gastroesophageal reflux disease) (Chronic) Tobacco user (Chronic) Hypertension (Chronic) Pulmonary embolism (Chronic) DVT (deep venous thrombosis) (Chronic) Morbid obesity with BMI of 40.0-44.9, adult (Chronic) Allergies hydrocodone [From Vicodin] Adverse Reaction (Verified 07/06/18 10:33) Itching Home Medications: Ambulatory Orders Medication Instructions Recorded Esomeprazole Mag Trihydrate 40 mg PO DAILY 07/06/18 [Nexium] Umeclidinium Brm/Vilanterol Tr 1 each IH DAILY 07/06/18 [Anoro Ellipta 62.5-25 Mcg INH] Surgical History: rotator cuff repair - BL, - - x 1, nasal surgery. Psychiatric History: Depression VIOLIN MAKER HAND History: No pertinent VIOLIN MAKER HAND history Lives: Spouse/ Significant Other, With Family Smoking Status: Former smoker Tobacco Use: Non-smoker Alcohol: Heavy - 1/2-1 bottle wild turkey q HS. Drugs: None - *Family History Maternal History Items: Hypertension Paternal History Items: Hypertension Review of Systems Constitutional: Denies: Chills, Fever, Weight Change HEENT: Denies: Head Aches, Sinus Congestion, Sinus Drainage Cardiovascular: Denies: Chest Pain, Palpitations Respiratory: Reports: Shortness of breath upon exertion. Denies: Cough, Shortness of breath at rest, Sputum production Gastrointestinal: Reports: Melena. Denies: Abdominal Pain, Nausea, Vomiting Genitourinary: Denies: Dysuria Musculoskeletal: Denies: Joint Pain, Joint Tenderness Skin: Denies: Rash, Wounds Neurological: Denies: Numbness, Tingling, Focal weakness Psychiatric: Denies: Anxiety, Depression, Homicidal Ideations, Suicidal Ideations Hematologic/ Lymphatic: Denies: Easy Bruising, Easy Bleeding Patient Problems: Active and Suspected Problems Cardiac enzymes elevated (Acute) - Physical Exam General: Alert, Oriented x3, Cooperative Lungs: Diminished, Rales Cardiovascular: Regular rate, Regular Rhythm Abdomen: Bowel Sounds Present, Soft, Non Tender Vital Signs Temp Pulse Resp BP Pulse Ox 98.6 F 92 18 151/89 H 93 07/07/18 08:25 07/07/18 08:25 07/07/18 08:26 07/07/18 08:25 07/07/18 08:25 Oxygen Flow Rate (L/min) 2 Oxygen Delivery Method Room Air Weight: 116.2 kg Body Mass Index (BMI) 40.1 Intake and Output for Last 24 Hours 07/05/18 07/06/18 07/07/18 23:59 23:59 23:59 Intake Total 5339 / 5339 595.6 / 595.6 Balance 5339 / 5339 595.6 / 595.6 Microbiology Past 72 Hours 07/06/18 17:10 Respiratory Panel (PCR) - Final Mucosa - Nose Laboratory Tests Past 24 Hrs 07/06/18 07/06/18 07/06/18 11:30 11:30 11:30 WBC 6.7 RBC 3.39 L Hgb 7.0 L Hct 25.5 L MCV 75.2 L MCH 20.6 L MCHC 27.5 L RDW 18.4 H RDW Differential 50.5 H Plt Count 166 MPV 8.5 Immature Gran % (Auto) 0.700 Neut % (Auto) 78.4 H Lymph % (Auto) 10.9 L Rawlins % (Auto) 6.3 Eos % (Auto) 3.0 Baso % (Auto) 0.7 Absolute Neuts (auto) 5.2 Absolute Lymphs (auto) 0.73 L Total Counted Not Reportable PT 14.5 INR 1.1 APTT 28.6 Sodium 141 Potassium 3.5 Chloride 107 Carbon Dioxide 25.0 Anion Gap 9 BUN 11 Creatinine 0.82 Estim Creat Clear Calc 80.70 Est GFR (MDRD) Af Amer 95 Est GFR (MDRD) Non-Af 78 BUN/Creatinine Ratio 13.4 Glucose 108 H Calcium 8.2 L Phosphorus Magnesium Troponin I 0.080 H Blood Type Antibody Screen Crossmatch 07/06/18 07/06/18 07/06/18 14:28 14:32 14:32 WBC RBC Hgb 6.9 L Hct 24.9 L MCV MCH MCHC RDW RDW Differential Plt Count MPV Immature Gran % (Auto) Neut % (Auto) Lymph % (Auto) Rawlins % (Auto) Eos % (Auto) Baso % (Auto) Absolute Neuts (auto) Absolute Lymphs (auto) Total Counted PT INR APTT Sodium Potassium Chloride Carbon Dioxide Anion Gap BUN Creatinine Estim Creat Clear Calc Est GFR (MDRD) Af Amer Est GFR (MDRD) Non-Af BUN/Creatinine Ratio Glucose Calcium Phosphorus 2.8 Magnesium 1.5 L Troponin I Blood Type A NEGATIVE Antibody Screen NEGATIVE Crossmatch See Detail 07/06/18 07/06/18 07/07/18 14:32 17:26 02:41 WBC RBC Hgb Hct MCV MCH MCHC RDW RDW Differential Plt Count MPV Immature Gran % (Auto) Neut % (Auto) Lymph % (Auto) Rawlins % (Auto) Eos % (Auto) Baso % (Auto) Absolute Neuts (auto) Absolute Lymphs (auto) Total Counted PT INR APTT Sodium 138 Potassium 3.8 Chloride 104 Carbon Dioxide 26.0 Anion Gap 8 BUN 9 Creatinine 0.77 Estim Creat Clear Calc 85.94 Est GFR (MDRD) Af Amer 102 Est GFR (MDRD) Non-Af 84 BUN/Creatinine Ratio 11.6 Glucose 100 Calcium 7.7 L Phosphorus Magnesium Troponin I 0.080 H 0.072 H Blood Type Antibody Screen Crossmatch 07/07/18 02:41 WBC 9.0 RBC 3.86 L Hgb 8.6 L Hct 29.9 L MCV 77.5 L MCH 22.3 L MCHC 28.8 L RDW 18.3 H RDW Differential 51.8 H Plt Count 183 MPV 9.6 Immature Gran % (Auto) 0.700 Neut % (Auto) 82.7 H Lymph % (Auto) 8.3 L Rawlins % (Auto) 6.0 Eos % (Auto) 2.0 Baso % (Auto) 0.3 Absolute Neuts (auto) 7.4 Absolute Lymphs (auto) 0.74 L Total Counted Not Reportable PT INR APTT Sodium Potassium Chloride Carbon Dioxide Anion Gap BUN Creatinine Estim Creat Clear Calc Est GFR (MDRD) Af Amer Est GFR (MDRD) Non-Af BUN/Creatinine Ratio Glucose Calcium Phosphorus Magnesium Troponin I Blood Type Antibody Screen Crossmatch Assessment/Plan All Active Problems Cardiac enzymes elevated (Acute) Hypomagnesemia (Acute) Anemia (Acute) anemia-episodic melena-alcohol abuse I plan to perform upper and lower endoscopy. There is somewhat increased risk due to the patient's pulmonary issues. The patient is not of a diagnosis of cirrhosis but with chronic alcohol abuse this is a consideration. The patient herself the risks, benefits, complications and possible alternatives of endoscopy. She consents to the above procedure. We proceeded with bowel prep of Gerardo yesterday and we'll proceed with endoscopy today.
--- NOTE | 2018-07-07 12:13 | OP.ENDO_ITS ---
Patient Name: Dee Barroso Procedure Date: 07/07/2018 10:02 AM Date of : 1970 Age: 47 Procedure: Upper GI endoscopy Indications: Melena Providers: Manuel King MD Medicines: Monitored Anesthesia Care Patient Profile: This is a 47 year old female. Refer to note in patient chart for documentation of history and physical. Patient has symptoms. Complications: No immediate complications. Procedure: Pre-Anesthesia Assessment: - Prior to the procedure, a History and Physical was performed, and patient medications and allergies were reviewed. The patient is competent. The risks and benefits of the procedure and the sedation options and risks were discussed with the patient. All questions were answered and informed consent was obtained. Patient identification and proposed procedure were verified by the physician, the nurse and the ham doctor in the procedure room. Mental Status Examination: alert and oriented. Airway Examination: normal oropharyngeal airway and neck mobility. Respiratory Examination: clear to auscultation. CV Examination: normal. Prophylactic Antibiotics: The patient does not require prophylactic antibiotics. Prior Anticoagulants: The patient has taken no previous anticoagulant or antiplatelet agents. ASA Grade Assessment: III - A patient with severe systemic disease. After reviewing the risks and benefits, the patient was deemed in satisfactory condition to undergo the procedure. The anesthesia plan was to use monitored anesthesia care (MAC). Immediately prior to administration of medications, the patient was re-assessed for adequacy to receive sedatives. The heart rate, respiratory rate, oxygen saturations, blood pressure, adequacy of pulmonary ventilation, and response to care were monitored throughout the procedure. The physical status of the patient was re-assessed after the procedure. After obtaining informed consent, the endoscope was passed under direct vision. Throughout the procedure, the patient's blood pressure, pulse, and oxygen saturations were monitored continuously. The gastroscope was introduced through the mouth, and advanced to the jejunum. The gastroscope was introduced through the and advanced to the. The upper GI endoscopy was accomplished without difficulty. The patient tolerated the procedure well. Scope In: 11:49:51 AM Scope Out: 11:56:46 AM Total Procedure Duration Time 0 hours 6 minutes 55 seconds Findings: The examined jejunum was normal. The in the duodenum was normal. Scattered mild inflammation characterized by erosions, erythema and friability was found in the entire examined stomach. Biopsies were taken with a cold forceps for Helicobacter pylori testing using PyloriTek test. Biopsies were taken with a cold forceps for histology. A medium-sized hiatal hernia was present. Mildly severe esophagitis with no bleeding was found. Biopsies were taken with a cold forceps for histology. Impression: - Normal examined jejunum. - Normal. - Gastritis. Biopsied. - Medium-sized hiatal hernia. - Mildly severe reflux esophagitis. Rule out Ramos's esophagus. Biopsied. Recommendation: - Await pathology results. - Continue present medications. Procedure Code(s): --- Professional --- 72971, Esophagogastroduodenoscopy, flexible, transoral; with biopsy, single or multiple CPT copyright 2017 [employer] [employer]. All rights reserved. The codes documented in this report are preliminary and upon digital learning platforms manager review may be revised to meet current compliance requirements. Manuel King MD 07/07/2018 12:13:27 PM This report has been signed electronically. Number of Addenda: 0 Note Initiated On: 07/07/2018 10:02 AM
--- NOTE | 2018-07-07 12:15 | OP.ENDO_ITS ---
Patient Name: Dee Barroso Procedure Date: 07/07/2018 11:57 AM Date of : 1970 Age: 47 Procedure: Colonoscopy Indications: Melena Providers: Manuel King MD Medicines: Monitored Anesthesia Care Patient Profile: This is a 47 year old female. Refer to note in patient chart for documentation of history and physical. Patient has symptoms. Last Colonoscopy: none. The patient's first colonoscopy is today. Complications: No immediate complications. Procedure: Pre-Anesthesia Assessment: - Prior to the procedure, a History and Physical was performed, and patient medications and allergies were reviewed. The patient is competent. The risks and benefits of the procedure and the sedation options and risks were discussed with the patient. All questions were answered and informed consent was obtained. Patient identification and proposed procedure were verified by the physician, the nurse and the supervisor propellant charge loading in the procedure room. Mental Status Examination: alert and oriented. Airway Examination: normal oropharyngeal airway and neck mobility. Respiratory Examination: clear to auscultation. CV Examination: normal. Prophylactic Antibiotics: The patient does not require prophylactic antibiotics. Prior Anticoagulants: The patient has taken no previous anticoagulant or antiplatelet agents. ASA Grade Assessment: III - A patient with severe systemic disease. After reviewing the risks and benefits, the patient was deemed in satisfactory condition to undergo the procedure. The anesthesia plan was to use monitored anesthesia care (MAC). Immediately prior to administration of medications, the patient was re-assessed for adequacy to receive sedatives. The heart rate, respiratory rate, oxygen saturations, blood pressure, adequacy of pulmonary ventilation, and response to care were monitored throughout the procedure. The physical status of the patient was re-assessed after the procedure. After I obtained informed consent, the scope was passed under direct vision. Throughout the procedure, the patient's blood pressure, pulse, and oxygen saturations were monitored continuously. The pediatric colonoscope was introduced through the anus and advanced to the cecum, identified by the appendiceal orifice, ileocecal valve and palpation. The colonoscopy was performed without difficulty. The patient tolerated the procedure well. The quality of the bowel preparation was good. Scope In: 12:00:03 PM Scope Withdrawal Time 0 hours 1 minute 31 seconds Scope Out: 12:08:30 PM Total Procedure Duration Time 0 hours 8 minutes 27 seconds Findings: The perianal and digital rectal examinations were normal. The entire examined colon appeared normal on direct and retroflexion views. A few small-mouthed diverticula were found in the entire colon. Impression: - The entire examined colon is normal on direct and retroflexion views. - Diverticulosis in the entire examined colon. - No specimens collected. Recommendation: - [facility]. - Resume previous diet. - Continue present medications. - Repeat colonoscopy in 10 years for screening purposes. Procedure Code(s): --- Professional --- 85586, Colonoscopy, flexible; diagnostic, including collection of specimen(s) by brushing or washing, when performed (separate procedure) CPT copyright 2017 [employer] [place] [employer]. All rights reserved. The codes documented in this report are preliminary and upon sample selector review may be revised to meet current compliance requirements. Manuel King MD 07/07/2018 12:15:34 PM This report has been signed electronically. Number of Addenda: 0 Note Initiated On: 07/07/2018 11:57 AM
[2018-07-07] MEDS: Thiamine Hydrochloride 100 MG Tablet PO ×2 (13:02→16:10)
[2018-07-07] MEDS: Folic Acid 1 MG Tablet PO (13:02)
[2018-07-07] MEDS: Multivitamins,Ther W-Minerals Tablet 1 TABLET PO (13:02)
[2018-07-07] MEDS: Ferrous Gluconate 324 MG Tablet PO ×2 (13:03→16:10)
[2018-07-07] MEDS: guaiFENesin 1,200 MG Tablet 1200 MG PO ×2 (13:03→20:59)
[2018-07-07] MEDS: Lisinopril 5 MG Tablet PO (13:08)
--- NOTE | 2018-07-07 13:31 | CASEMGMT ---
Social Work Note Attempted to see pt to address ETOH abuse. Pt presently not in room for procedure. SW to return as time allows. Shaye Pinto, CARE ASSOCIATE, GEAR SHAPER SET UP OPERATOR
--- NOTE | 2018-07-07 16:00 | CHAPLAIN ---
two attempts made to visit patient but patient was sleeping or busy with nursing staff at attempted times
[2018-07-07 16:36] LABS: Iron 139 ug/dL (50-170); Iron Binding Capacity,Total 539 ug/dL (250-450); PERCENT IRON SATURATION 25.8 % (15.0-55.0)
--- NOTE | 2018-07-07 18:12 | PN_ITS ---
Patient Problems: Active and Suspected Problems Cardiac enzymes elevated (Acute) Subjective: Patient was seen and examined today, I talked with general surgery about her endoscopy results, there was only some mild gastritis noted today no active bleeding and some distal esophageal changes that could be due to Ramos's. I talked with the patient and she states that she has been anemic for quite some time, her iron level was normal. I will repeat the patient's H&H tonight and tomorrow, patient is currently on room air. - Physical Exam General: Alert, Oriented x3, Cooperative, No apparent distress, Well developed, Well nourished HEENT: Atraumatic, PERRLA, EOMI, Normocephalic Oral: Moist Mucosa Neck: Supple, No Nuchal Rigidity, Trachea Midline, Thyroid Normal Size and Texture Lungs: Clear to auscultation, Normal air movement, No rhonchi, No wheeze, No rales Cardiovascular: Regular rate, Regular Rhythm, Normal S1, Normal S2, No murmurs, No Ectopic Activity, PMI Normal, No rub noted, No Gallop Abdomen: Bowel Sounds Present, Soft, Non Tender, Non-Distended, No hernias noted Extremities: No clubbing, No cyanosis, No edema, Capillary Refill Less than 3 Seconds Skin: No rashes, No breakdown Musculoskeletal: No Tenderness to Palpation of Joints or Extremities Neurological: Cranial nerves II-XII grossly intact, Neuro grossly intact, Sensory exam intact to light touch and pain, Coordination normal Psych/Mental Status: Normal Affect, Appropriate, Alert and oriented to time, place, person, mood and affect Vital Signs Temp Pulse Resp BP Pulse Ox 98.8 F 96 18 138/85 H 92 07/07/18 16:05 07/07/18 16:05 07/07/18 16:17 07/07/18 16:05 07/07/18 16:05 Oxygen Flow Rate (L/min) 3 Oxygen Delivery Method Room Air Weight: 116.2 kg Body Mass Index (BMI) 40.1 Intake and Output for Last 24 Hours 07/05/18 07/06/18 07/07/18 23:59 23:59 23:59 Intake Total 5339 / 5339 1595.6 / 1595.6 Balance 5339 / 5339 1595.6 / 1595.6 Microbiology Past 72 Hours 07/06/18 19:10 Gram Stain - Final Sputum, Expectorated/Coughed Respiratory Culture - Preliminary Appears to be normal respiratory charles. Further studies to follow. 07/06/18 17:10 Respiratory Panel (PCR) - Final Mucosa - Nose Laboratory Tests Past 24 Hrs 07/06/18 07/06/18 07/07/18 14:28 17:26 02:41 WBC RBC Hgb Hct MCV MCH MCHC RDW RDW Differential Plt Count MPV Immature Gran % (Auto) Neut % (Auto) Lymph % (Auto) Long % (Auto) Eos % (Auto) Baso % (Auto) Absolute Neuts (auto) Absolute Lymphs (auto) Total Counted Sodium 138 Potassium 3.8 Chloride 104 Carbon Dioxide 26.0 Anion Gap 8 BUN 9 Creatinine 0.77 Estim Creat Clear Calc 85.94 Est GFR (MDRD) Af Amer 102 Est GFR (MDRD) Non-Af 84 BUN/Creatinine Ratio 11.6 Glucose 100 Calcium 7.7 L Iron TIBC Iron Saturation Troponin I 0.072 H Blood Type A NEGATIVE Antibody Screen NEGATIVE Crossmatch See Detail 07/07/18 07/07/18 02:41 02:41 WBC 9.0 RBC 3.86 L Hgb 8.6 L Hct 29.9 L MCV 77.5 L MCH 22.3 L MCHC 28.8 L RDW 18.3 H RDW Differential 51.8 H Plt Count 183 MPV 9.6 Immature Gran % (Auto) 0.700 Neut % (Auto) 82.7 H Lymph % (Auto) 8.3 L Long % (Auto) 6.0 Eos % (Auto) 2.0 Baso % (Auto) 0.3 Absolute Neuts (auto) 7.4 Absolute Lymphs (auto) 0.74 L Total Counted Not Reportable Sodium Potassium Chloride Carbon Dioxide Anion Gap BUN Creatinine Estim Creat Clear Calc Est GFR (MDRD) Af Amer Est GFR (MDRD) Non-Af BUN/Creatinine Ratio Glucose Calcium Iron 139 TIBC 539 H Iron Saturation 25.8 Troponin I Blood Type Antibody Screen Crossmatch Medical Necessity - Tobacco Use Smoking Status: Former smoker Tobacco Use: Non-smoker Assessment/Plan All Active Problems Cardiac enzymes elevated (Acute) Hypomagnesemia (Acute) Anemia (Acute) #1 acute on chronic anemia-it appears that the patient does not have iron deficiency anemia at this point, in the past she did have a low iron level in 2017. Patient's H&H will be rechecked, she may need outpatient workup such as a capsule endoscopy. #2 exertional dyspnea-etiology unclear, possibly secondary to anemia, patient is currently on room air #3 elevated troponin-not felt to be secondary to cardiac reasons, exact etiology unclear at this point #4 hypertension #5 morbid obesity #6 hypomagnesemia-I will recheck her magnesium level tomorrow Code Visit Inpatient E&M: 01434 Subs Hosp L2
[2018-07-08] VITALS (9 sets, daily range): BP systolic 145–156; BP diastolic 78–84; PULSE 81–111; RESP 16–20; TEMP 37.2–37.5; O2SAT 93–95
[2018-07-08] MEDS: LORazepam 1 MG Tablet 2 MG PO (04:12)
[2018-07-08 06:33] LABS: Hematocrit 27.4 % (37-47); Hemoglobin 7.9 g/dl (12.0-15.0)
[2018-07-08 06:34] LABS: Magnesium 2.1 mg/dL (1.6-2.6)
[2018-07-08] MEDS: Ipratropium/Albuterol Sulfate 3 ML AMPUL.NEB INHALATION ×2 (07:05→11:17)
--- NOTE | 2018-07-08 08:02 | PCM.PN.SRG ---
Patient Problems: Active and Suspected Problems Cardiac enzymes elevated (Acute) Subjective: no complaints - Physical Exam General: Oriented x3 Abdomen: Bowel Sounds Present, Soft, Non Tender Vital Signs Temp Pulse Resp BP Pulse Ox 98.9 F 96 16 156/78 H 95 07/08/18 05:03 07/08/18 07:05 07/08/18 07:05 07/08/18 05:03 07/08/18 07:05 Oxygen Flow Rate (L/min) 2 Oxygen Delivery Method CPAP Weight: 116.2 kg Body Mass Index (BMI) 40.1 Intake and Output for Last 24 Hours 07/06/18 07/07/18 07/08/18 23:59 23:59 23:59 Intake Total 5339 / 5339 2042.6 / 2042.6 120 / 120 Balance 5339 / 5339 2042.6 / 2042.6 120 / 120 Microbiology Past 72 Hours 07/06/18 19:10 Gram Stain - Final Sputum, Expectorated/Coughed Respiratory Culture - Preliminary Appears to be normal respiratory charles. Further studies to follow. 07/06/18 17:10 Respiratory Panel (PCR) - Final Mucosa - Nose Laboratory Tests Past 24 Hrs 07/07/18 07/08/18 07/08/18 02:41 05:45 05:45 Hgb 7.9 L Hct 27.4 L Magnesium 2.1 Iron 139 TIBC 539 H Iron Saturation 25.8 Medical Necessity - Tobacco Use Smoking Status: Former smoker Tobacco Use: Non-smoker Assessment/Plan All Active Problems Cardiac enzymes elevated (Acute) Hypomagnesemia (Acute) Anemia (Acute) anemia-episodic melena-alcohol abuse s/p upper and lower endoscopy yesterday. 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 Continue PPIs. discussed with patient need to limit ETOH.
[2018-07-08] MEDS: guaiFENesin 1,200 MG Tablet 1200 MG PO (08:24)
[2018-07-08] MEDS: Thiamine Hydrochloride 100 MG Tablet PO (08:24)
[2018-07-08] MEDS: Ferrous Gluconate 324 MG Tablet PO (08:24)
[2018-07-08] MEDS: Folic Acid 1 MG Tablet PO (08:24)
[2018-07-08] MEDS: oxyCODONE 5 MG Tablet PO (08:28)
[2018-07-08] MEDS: Lisinopril 5 MG Tablet PO (08:28)
[2018-07-08 08:35] LABS: Ferritin 18 ng/mL (8-252)
--- NOTE | 2018-07-08 09:20 | CASEMGMT ---
SW reviewed chart. Met with patient, introduced self and role at [facility]. Patient was just getting ready to fall asleep. SW spoke with her briefly about her alcohol consumption. She said she has been drinking for a long time. She said she quits and then she goes back to drinking and back and forth. She said this is her stress relief. SW offered her resources and originally she did not want them, but then she agreed to let SW leave them in her room. She was not interested in talking anymore as she wanted to sleep. Melissa IZQUIERDO MSW
--- NOTE | 2018-07-08 09:50 | CASEMGMT ---
CM chart review: Pt seen by SW for ETOH abuse. Per Reina BRAND, pt has no other needs other than regarding the ETOH abuse and pt has been up ad ciro in the room with no concerns. This RN CM attempted to see pt multiple times without success and pt does not want talk at this time per SW, she wants to sleep. 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 Pt states does not currently smoke but does drink ETOH, see SW note. Pt does not have LW/HPOA paperwork on file and declined info previously during visit. CM to follow if any other needs present prior to discharge. Mariposa BRAND CM
[2018-07-08] MEDS: Pantoprazole Sodium 40 MG Tablet PO (10:13)
--- NOTE | 2018-07-08 11:25 | DCINST_ITS ---
- Discharge Diagnoses Current Active Problems: Current Active and Chronic Problems Cardiac enzymes elevated (Acute) You will use the following diet at home:: No restrictions Your food should be the consistency of: Regular Your liquids should be the consistency of: Regular/Thin Discharge Activity: Return to Normal Activity Weight Bearing Status: Full weight bearing Allergies/Adverse Reactions: Allergies hydrocodone [From Vicodin] Adverse Reaction (Verified 07/06/18 10:33) Itching Medications to take at Discharge Esomeprazole Mag Trihydrate [Nexium] 40 mg PO DAILY 07/06/18 Umeclidinium Brm/Vilanterol Tr [Anoro Ellipta 62.5-25 Mcg INH] 1 each IH DAILY 07/06/18 Acetaminophen [Tylenol Tablet] 650 mg PO Q6H PRN PRN tablet 07/08/18 Iron Poly/Vit C [Niferex-150] 150 mg PO DAILYCM #30 cap 07/08/18 The following prescriptions were given: Iron Poly/Vit C [Niferex-150] 150 mg PO DAILYCM #30 cap Primary Care Physician: Didier Watkins MD [Primary Care Provider] - Please follow up with your Primary Care Physician in: in one week-get repeat CBC done Test Results: Test results from this visit will be discussed in further detail at your follow- up appointment, if applicable.
--- NOTE | 2018-07-08 13:50 | NURSING ---
student rn charting reviewed by this rn.
--- NOTE | 2018-07-09 20:45 | PCM.DC.SUM ---
Discharge Date and Diagnosis Date of Admission: 07/06/18 Date of Discharge: 07/08/18 - Primary Discharge Diagnosis #1 acute on chronic iron deficiency anemia #2 exertional dyspnea secondary to #1 #3 hypertension #4 morbid obesity #5 hypomagnesemia #6 obstructive sleep apnea # 7 elevated troponin-etiology unclear #8 gastritis #9 reflux esophagitis #10 pulmonary hypertension - Secondary Discharge Diagnosis Chronic Problems Iron deficiency (Chronic) Alcohol abuse (Chronic) Allergic rhinitis (Chronic) Depression (Chronic) GERD (gastroesophageal reflux disease) (Chronic) Tobacco user (Chronic) Hypertension (Chronic) Pulmonary embolism (Chronic) DVT (deep venous thrombosis) (Chronic) Morbid obesity with BMI of 40.0-44.9, adult (Chronic) Hospital Course and Treatment Operations: None Procedures: Blood transfusion, Colonoscopy, EGD Summary of Care Provided: The patient is a 47 year old F seen in the emergency room at [facility] with a chief complaint of shortness of breath. Workup in the emergency room included troponin which was 0.08, hemoglobin was 7, hematocrit was 25.5, chest x-ray showed chronic changes without any acute process. EKG showed normal sinus rhythm at 84. Patient was admitted to PCU for acute on chronic anemia, patient had a history of iron deficiency anemia. She also had an indeterminate troponin, this was repeated and remained at the same level during her hospitalization. It was not felt that this indicated any coronary ischemia. Patient was seen in consultation by general surgery, she received 2 units of packed red blood cells, and patient underwent an EGD and a colonoscopy. Colonoscopy was unremarkable, EGD showed mild gastritis and some reflux esophagitis. Patient's iron level was checked and it was normal, despite this, I still feel that the patient has an underlying iron deficiency anemia, iron levels in 2017 were low. Physical exam: On examination she appeared in good health and spirits. Vital signs as documented. Skin warm and dry and without overt rashes. Neck without JVD. Lungs clear. Heart exam notable for regular rhythm, normal sounds and absence of murmurs, rubs or gallops. Abdomen unremarkable and without evidence of organomegaly, masses, or abdominal aortic enlargement. Extremities nonedematous. Neuro: Cranial nerves II through XII are grossly intact, no focal motor deficits were noted. Psych: Patient is alert and oriented x3, she did not appear depressed or anxious. On 07/08/18, patient was seen and examined felt to be in stable condition for discharge home - Physical Exam Vital Signs Temp Pulse Resp BP Pulse Ox 99.5 F H 88 20 H 154/84 H 93 07/08/18 08:19 07/08/18 11:17 07/08/18 11:17 07/08/18 08:19 07/08/18 08:19 Oxygen Flow Rate (L/min) 2 Oxygen Delivery Method Room Air Weight: 116.2 kg Body Mass Index (BMI) 40.1 Intake and Output for Last 24 Hours 07/07/18 07/08/18 07/09/18 23:59 23:59 23:59 Intake Total 2042.6 / 2042.6 120 / 120 Balance 2042.6 / 2042.6 120 / 120 Microbiology Past 72 Hours 07/06/18 19:10 Gram Stain - Final Sputum, Expectorated/Coughed Respiratory Culture - Final 07/06/18 17:10 Respiratory Panel (PCR) - Final Mucosa - Nose Discharge Activity: Return to Normal Activity Weight Bearing Status: Full weight bearing Home Medications: Medications to take at Discharge Esomeprazole Mag Trihydrate [Nexium] 40 mg PO DAILY 07/06/18 Umeclidinium Brm/Vilanterol Tr [Anoro Ellipta 62.5-25 Mcg INH] 1 each IH DAILY 07/06/18 Acetaminophen [Tylenol Tablet] 650 mg PO Q6H PRN PRN tablet 07/08/18 Iron Poly/Vit C [Niferex-150] 150 mg PO DAILYCM #30 cap 07/08/18 Following Prescrptions Were Given to Patient: Iron Poly/Vit C [Niferex-150] 150 mg PO DAILYCM #30 cap Primary Care Physician: Didier Watkins MD [Primary Care Provider] - Please follow up with your Primary Care Physician in: in one week-get repeat CBC done Disposition: Home Minutes spent on discharge:: 32 Patient Condition:: Stable Medical Necessity - Tobacco Use Smoking Status: Former smoker Tobacco Use: Non-smoker Meaningful Use Info Meaningful Use Diagnoses (Choose all that apply): None applicable Code Visit Inpatient E&M: 46915 Disch Hosp
== END 2018-07-08 14:11 | disposition home or self-care (01) | DRG 812 ==
LOC: ED 11:24 → PCU 14:02
PROVIDERS: Surgery; Admitting Provider Family Medicine; Emergency Provider Emergency Medicine; Family Provider Family Medicine; PCP Family Medicine; Visit Provider Internal Medicine
PROC: 0DJD8ZZ Inspection of Lower Intestinal Tract, Via Natural or Artificial Opening Endoscopic (ICD-10-PCS; CPT 45378; principal; 2018-07-07 10:00)
DX: D50.9 Iron deficiency anemia, unspecified (principal); Z68.41 Body mass index [BMI] 40.0-44.9, adult; E66.01 Morbid (severe) obesity due to excess calories; I27.20 Pulmonary hypertension, unspecified; G47.33 Obstructive sleep apnea (adult) (pediatric); E83.42 Hypomagnesemia; K44.9 Diaphragmatic hernia without obstruction or gangrene; K29.70 Gastritis, unspecified, without bleeding; Z23 Encounter for immunization; K57.30 Diverticulosis of large intestine without perforation or abscess without bleeding; R74.8 Abnormal levels of other serum enzymes; R06.00 Dyspnea, unspecified; F10.10 Alcohol abuse, uncomplicated; Z86.711 Personal history of pulmonary embolism; Z86.718 Personal history of other venous thrombosis and embolism; I11.9 Hypertensive heart disease without heart failure; Z87.891 Personal history of nicotine dependence; R07.89 Other chest pain; F41.9 Anxiety disorder, unspecified; K21.9 Gastro-esophageal reflux disease without esophagitis; E66.9 Obesity, unspecified; Z87.19 Personal history of other diseases of the digestive system; Z79.899 Other long term (current) drug therapy
CPT/HCPCS: 36415; 71045; 71046; 80048; 82728; 83540; 83550; 83735; 84100; 84484; 85014; 85018; 85025; 85610; 85730; 86850; 86900; 86920; 86922; 87070; 87205; 87633; 88305; 88313; 88342; 93005; 94640; 94667; 94668; 97802; 99283; 99285; J7030; J7040; P9016; 90686; A4216; J2405

== ENCOUNTER 2018-07-10 06:54 | Emergency (ER) | payer OTHER, SELFPAY ==
[2018-07-10] VITALS (7 sets, daily range): BP systolic 140–181; BP diastolic 84–93; PULSE 67–81; RESP 16–25; TEMP 36.8; O2SAT 96–99; BMI 39.9
--- NOTE | 2018-07-10 07:34 | EKG12_ITS ---
Test Reason : CHESTPRESSURE Blood Pressure : / mmHG Vent. Rate : 070 BPM Atrial Rate : 070 BPM P-R Int : 166 ms QRS Dur : 076 ms QT Int : 450 ms P-R-T Axes : 059 035 012 degrees QTc Int : 486 ms Normal sinus rhythm Prolonged QT Abnormal ECG Confirmed by PHAN DIAZ, NIKOLAS ([id number]), editorial assistant JUDY KAUR ([id number]) on 07/15/2018 11:29:16 AM Referred By: CARLA Confirmed By:NIKOLAS CHISHOLM MD
--- NOTE | 2018-07-10 07:40 | RAD_ITS ---
STUDY: X-RAY CHEST REASON FOR EXAM: Female, 47 years old. Chest pain. TECHNIQUE: Single AP portable view of the chest. COMPARISON: July 06, 2018. FINDINGS: Cardiac monitoring leads are present. There is hyperinflation of the lungs consistent with chronic obstructive lung disease (COPD). There is patchy left basilar airspace consolidation and atelectasis. There may be small left-sided pleural effusion. There is moderate cardiac enlargement. Normal mediastinum and mayra. Normal visualized pulmonary arteries. There is atherosclerotic calcification of the aortic arch with tortuosity. Normal visualized thoracic spine. Normal visualized ribs, clavicles, and shoulders. There is no demonstrated abnormality of the visualized soft tissue structures of the upper abdomen. RAD/Chest 1 View (Portable) IMPRESSION: 1. Patchy left basilar airspace disease and/or atelectasis. 2. Cardiomegaly. Electronically Signed: Denise Bustillos MD at 8:07 EST , Service support ,
[2018-07-10] MEDS: Aspirin 81 MG TAB.CHEW 324 MG PO (08:07)
--- NOTE | 2018-07-10 08:54 | ED.RN ---
md aware of pt cp after nitro and c/o the room spinning. no new orders given.
[2018-07-10 09:06] LABS: Absolute Lymphocyte Count 0.95 X10^3/ul (0.83-4.51); Absolute Neutrophil Count 6.4 X10^3/uL (2.0-7.7); Basophil# 0.05 X10^3/uL; Basophil% 0.6 % (0-1); Eosinophil# 0.26 X10^3/uL; Eosinophils% 3.1 % (0-5); Hematocrit 32.1 % (37-47); Hemoglobin 9.2 g/dl (12.0-15.0); Lymphocyte # 0.95 X10^3/ul (4.0); Lymphocyte % 11.3 % (19-41); Mean Corp Hgb Conc 28.7 g/gl (32-36); Mean Corpuscular Hgb 22.7 pg (27.0-32.0); Mean Corpuscular Volume 79.1 fL (81-99); Mean Platelet Vol. 9.8 fl (6.2-12.0); Monocyte# 0.63 X10^3/uL; Monocyte% 7.5 % (0-10); Neutrophil # 6.44 X10^3/uL (2.7-7.7); Neutrophil % 76.9 % (47-70); Platelet Count 202 K/mm3 (150-450); RBC Distribution Width CV 20.7 % (11.6-14.6); RBC Distribution Width SD 55.2 fl (35.1-43.9); Red Blood Count 4.06 M/mm3 (4.2-5.4); White Blood Count 8.4 K/mm3 (4.4-11.0)
[2018-07-10 09:07] LABS: Differential Indicated SCAN CRITERIA MET; POSITIVE COUNT NO; POSITIVE DIFFERENTIAL NO; POSITIVE MORPHOLOGY YES
[2018-07-10 09:15] LABS: Anion Gap 11 (5-15); BUN 10 mg/dL (7-18); BUN/Creat Ratio 10.1 RATIO (10-20); Calcium,Total 8.5 mg/dL (8.5-10.1); Chloride 106 mmol/L (98-107); Creatinine, Serum 0.99 mg/dL (0.55-1.02); EST Glomerular Filtration Rate 63 mL/min (>60); Est Glom Filt Rate - Afr Amer 76 mL/min (>60); Estimated Creatinine Clearance 66.85 ml/min; Glucose 97 mg/dL (74-106); Potassium 3.7 mmol/L (3.5-5.1); Sodium Level 140 mmol/L (136-145)
--- NOTE | 2018-07-10 09:37 | ED.DCSUM_ITS ---
- ER Visit Summary Date of Service: 07/10/18 Chief Complaint: I believe I am going through alcohol withdrawal and chest tightness and heaviness History of Present Illness: The patient is a 47 F who was admitted this past week for microcytic anemia. Workup revealed gastritis and reflux. She did required transfusion of 2 units of packed red blood cells. It was felt at that time that her indeterminate troponin was not cardiac in etiology. She states she has not had an alcoholic beverage since Friday. She denies fever, chills or night sweats. Denies weight gain or weight loss. She denies visual, ocular auditory symptoms. She does complain of chest pain described as a tight sensation without radiation. She does report shortness of breath and she had shortness of breath as a chief complaint prior admission was felt to be secondary to her anemia. She denies orthopnea or PND. She denies hematemesis, melena hematochezia. She denies urologic symptoms. She denies myalgias arthralgias or back pain. She denies headache, anesthesia, paresthesia or motor weakness. She denies polyuria, polydipsia or polyphagia. She denies urticaria or angioedema. When patient was informed of results she informed me that she has been under significant stress. She states in January of this year she lost half of her income. She informed me that 4-6 weeks ago her has been laid off. She admits she has been drinking and understood significant stress and concerned with finances. Physical Examination: Vital signs noted and remarkable for an elevated blood pressure of 181/88. Most recent blood pressure is 157/86. Vital signs otherwise unremarkable. BMI is elevated. Head is atraumatic normocephalic. Pupils are equal round reactive. Extraocular muscles are intact. TMs are pearly white with landmarks noted. Nares patent with no drainage. Posterior pharynx without erythema or exudate. Uvula is midline. There is no dysphonia or dysphasia. Trachea is midline. There is no stridor with auscultation of the neck. Heart is regular without murmur, gallop or rub. S1 and S2 are normal. Lungs are clear to auscultation with good movement of air bilaterally. Abdomen is soft nontender bowel sounds are present normal. There is no hepatosplenomegaly. There is no asymmetry, swelling, discoloration, leg vein distention, palpable cords or tenderness along the distribution of the deep venous system. Neuro exam is nonfocal. Test Results: EKG revealed a sinus rhythm with no acute ischemic changes. Portable chest x-ray reveals cardiomegaly. There is no evidence of congestive heart failure or infiltrate. There is no effusion noted either. H&H 9.2 and 32.1 with an MCV of 79. Basic metabolic panel is normal. Troponin is normal at 0.038. Troponin prior to today's was 0.08. Emergency Department Course and Treatment: To evaluate patient's chest discomfort and EKG and troponin was obtained. If troponin is normal would exclude coronary disease since patient's had pain for approximately 13-14 hours. Furthermore she had a nuclear stress test 2 years ago which was normal. Chest x-ray was obtained to evaluate for pneumonia, pneumothorax or CHF. Because patient does appear pale CBC was obtained. BMP was obtained to assess electrolytes and BUN to creatinine ratio to evaluate for possible GI bleed since she had documented gastritis on recent EGD. Treatment Plan: Patient was treated with aspirin and administer nitroglycerin. The nitroglycerin had minimal to some effect. In light of new data i.e. multiple stressors and the fact that her troponin is normal with greater than 12 hours of pain suspect this is secondary to her multiple stressors. Patient was informed that she is not going through alcohol withdrawal. Disposition: Discharged home Impression: Mid sternal chest pain at rest Microcytic anemia Anxiety/multiple stressors History of hypertension History of pulmonary hypertension History of obstructive sleep apnea This note was generated with CPM Brax[employer] dictation software. It may contain incorrect words, spelling, and punctuation that were not noted in review of the chart prior to signing ED Disposition - Plan for ED Patient: Disposition: Home or Assisted Living Chief Complaint: General Illness Instructions: ED Chest Pain NonCardiac, ED Stress React Referrals: Didier Watkins MD [Primary Care Provider] - 3-5 Days
== END 2018-07-10 09:51 | disposition home or self-care (01) ==
PROVIDERS: Emergency Provider Emergency Medicine; Family Provider Family Medicine; PCP Family Medicine
DX: R07.89 Other chest pain (principal); D50.9 Iron deficiency anemia, unspecified; F41.9 Anxiety disorder, unspecified; I10 Essential (primary) hypertension; I27.20 Pulmonary hypertension, unspecified; G47.33 Obstructive sleep apnea (adult) (pediatric); K21.9 Gastro-esophageal reflux disease without esophagitis; I51.7 Cardiomegaly; E66.9 Obesity, unspecified; Z87.19 Personal history of other diseases of the digestive system; Z86.718 Personal history of other venous thrombosis and embolism; Z79.899 Other long term (current) drug therapy; Z72.0 Tobacco use
CPT/HCPCS: 71045; 80048; 84484; 85025; 93005; 99285; A4216

== ENCOUNTER → 2018-07-15 09:41 | Outpatient (CLI) | payer OTHER, SELFPAY ==
[2018-07-15 12:20] LABS: Absolute Lymphocyte Count 0.69 X10^3/ul (0.83-4.51); Absolute Neutrophil Count 5.9 X10^3/uL (2.0-7.7); Basophil# 0.05 X10^3/uL; Basophil% 0.7 % (0-1); Eosinophil# 0.23 X10^3/uL; Eosinophils% 3.1 % (0-5); Hematocrit 32.4 % (37-47); Hemoglobin 9.1 g/dl (12.0-15.0); Lymphocyte # 0.69 X10^3/ul (4.0); Lymphocyte % 9.2 % (19-41); Mean Corp Hgb Conc 28.1 g/gl (32-36); Mean Corpuscular Hgb 22.4 pg (27.0-32.0); Mean Corpuscular Volume 79.8 fL (81-99); Mean Platelet Vol. 10.6 fl (6.2-12.0); Monocyte# 0.56 X10^3/uL; Monocyte% 7.5 % (0-10); Platelet Count 245 K/mm3 (150-450); RBC Distribution Width CV 20.1 % (11.6-14.6); RBC Distribution Width SD 55.8 fl (35.1-43.9); Red Blood Count 4.06 M/mm3 (4.2-5.4); White Blood Count 7.5 K/mm3 (4.4-11.0)
[2018-07-15 12:24] LABS: Differential Indicated SCAN CRITERIA MET; POSITIVE COUNT NO; POSITIVE DIFFERENTIAL NO; POSITIVE MORPHOLOGY YES
[2018-07-15 12:40] LABS: Ferritin 12 ng/mL (8-252); Iron 28 ug/dL (50-170); Iron Binding Capacity,Total 533 ug/dL (250-450); PERCENT IRON SATURATION 5.3 % (15.0-55.0)
[2018-07-15 12:41] LABS: Vitamin B12 680 pg/mL (211-911)
[2018-07-19 12:11] LABS: Vitamin B1, Thiamine 138.2 nmol/L (66.5-200.0)
== END ==
PROVIDERS: Family Medicine; Family Provider Family Medicine; PCP Family Medicine; Visit Provider Family Medicine
DX: D50.9 Iron deficiency anemia, unspecified (principal); F10.10 Alcohol abuse, uncomplicated
CPT/HCPCS: 36415; 82607; 82728; 82746; 83540; 83550; 84425; 85025

== ENCOUNTER → 2018-08-05 09:11 | Outpatient (CLI) | payer OTHER, SELFPAY ==
[2018-07-29 14:33] VITALS: BMI 39.3
--- NOTE | 2018-08-05 09:13 | NM_ITS ---
CLINICAL: 47-year-old female with reported history of clinical pulmonary hypertension. VENTILATION-PERFUSION LUNG SCINTIGRAPHY COMPARISON: Plain film chest radiograph 08/05/2018 FINDINGS: The patient was administered 49.5 mCi 99m Tc DTPA aerosol. The aerosol ventilation study demonstrates mild heterogeneous ventilation in the bilateral lung silva without corresponding radiographic changes visualized on review of plain film chest x-ray dated 08/05/2018. Central clumping of the aerosol is identified in the bilateral hemithorax. Following the intravenous administration of 5.1 mCi of 99m Tc MAA, the pulmonary perfusion study reveals matching non-uniform perfusion in the right and left lungs correlating with the previously defined ventilation pattern. No moderate subsegmental or large segmental ventilation-perfusion mismatches are noted. Review of anterior-posterior head and neck, abdomen-pelvis acquisitions demonstrate prominent radiopharmaceutical concentration within the context of the oral cavity, oropharynx, proximal esophagus as well as intestinal tract, most consistent with swallowed aerosol tracer distribution. Nonvisualization of intracranial and renal activity excludes the presence of a significant-discernible right to left shunt. NM/Lung Scan Vent/Perf IMPRESSION: 1. VERY LOW PROBABILITY FOR PULMONARY EMBOLUS (<10%) 99m Tc DTPA aerosol ventilation / 99m Tc MAA pulmonary perfusion imaging examination, according to PIOPED II interpretive criteria with regard given to the presence of > 2 ventilation-perfusion matches without corresponding radiographic changes. (Sotsman et al, Radiology 246: 941, 2008 Sosandy et al, J Nucl Med 49: 1741, 2008). 2. Central clumping of the aerosol may be secondary to obstructive airway mechanics and or clinical tachypnea. Electronically Signed: Manuel Meyer DO at 23:17 EST Tel , Service support ,
--- NOTE | 2018-08-05 10:00 | RAD_ITS ---
STUDY: X-RAY CHEST REASON FOR EXAM: Female, 47 years old. Pulmonary hypertension and chronic thrombolytic pulmonary emboli TECHNIQUE: PA and lateral views of the chest. COMPARISON: July 10, 2018. FINDINGS: There is hyperinflation of the lungs consistent with chronic obstructive lung disease (COPD). There is no demonstrated pleural abnormality. There is mild cardiac enlargement. There is a middle mediastinal mass like process probably representing a hiatal hernia. Normal visualized pulmonary arteries. There is atherosclerotic calcification of the aortic arch with tortuosity. Normal visualized thoracic spine. Patient has had previous shoulder surgery. There is no demonstrated abnormality of the visualized soft tissue structures of the upper abdomen. RAD/Chest PA and Lateral IMPRESSION: COPD and cardiomegaly without evidence of acute cardiopulmonary disease. Electronically Signed: Denise Bustillos MD at 9:01 EST , Service support ,
== END ==
PROVIDERS: Family Provider Family Medicine; PCP Family Medicine; Referring Provider Internal Medicine Pulmonary Disease; Visit Provider Internal Medicine Pulmonary Disease
DX: I27.20 Pulmonary hypertension, unspecified (principal); R06.00 Dyspnea, unspecified
CPT/HCPCS: 71046; 78582; A9540; A9567

== ENCOUNTER 2018-08-07 08:52 | Day surgery (SDC) | payer OTHER, SELFPAY ==
[2018-07-29 14:33] VITALS: BMI 39.3
[2018-08-06 07:54] VITALS: BMI 39.3
[2018-08-07 09:44] LABS: Pregnancy, Serum, hCG Quali. NEGATIVE Negative (0-9 Nonpreg)
--- NOTE | 2018-08-07 10:12 | ECHOD_ITS ---
Reason For Study: Palpitations Procedure This was a 2D Doppler, Color Flow transthoracic echocardiogram. Exam performed in department. Left Ventricle Normal LV size. Moderate concentric left ventricular hypertrophy. Left ventricular systolic function is normal. The estimated ejection fraction is 65 %. Stage 1 diastolic dysfunction. No regional wall motion abnormalities noted. Right Ventricle Normal RV size. Normal systolic function. Atria Normal left atrium. Normal right atrium. Mitral Valve Normal mitral valve. Mild (1+) eccentric mitral valve insufficiency. Tricuspid Valve Normal tricuspid valve. Mild tricuspid valve insufficiency. Pulmonary artery systolic pressure is 40 mmHg. Aortic Valve Normal aortic valve. Pulmonic Valve Normal pulmonic valve. Great Vessels Normal aortic root. The pulmonary artery is normal size. Normal inferior vena cava. Pericardium/Pleural No pericardial effusion. MMode/2D Measurements & Calculations LVIDd: 4.1 cm IVSd: 1.6 cm Ao root diam: 3.1 cm LVIDs: 2.9 cm LVPWd: 1.4 cm RVDd: 4.2 cm FS: 29.1 % LAV(MOD-bp): 44.8 ml LVAd ap4: 22.8 cm2 SV(MOD-sp4): 36.5 ml LAV(MOD-bp) Indexed: 20.1 ml/m2 EDV(MOD-sp4): 57.0 ml LAV(MOD-sp2): 40.1 ml EDV(sp4-el): 59.3 ml LAV(MOD-sp4): 50.8 ml LVAs ap4: 12.2 cm2 ESV(MOD-sp4): 20.5 ml ESV(sp4-el): 21.2 ml EF(MOD-sp4): 64.1 % EF(sp4-el): 64.3 % SV(sp4-el): 38.1 ml LA A4 area: 21.1 cm2 LA dimension(2D): 5.1 cm RA A4 area: 16.0 cm2 Doppler Measurements & Calculations MV E max nino: 85.4 cm/sec Lat Peak E' Nino: 2.6 cm/sec Med Peak E' Nino: 4.5 cm/sec MV A max nino: 118.6 cm/sec E/E' lat: 32.3 E/E' med: 18.9 MV E/A: 0.72 Ao V2 max: 142.9 cm/sec LV V1 max: 124.1 cm/sec PA V2 max: 119.2 cm/sec Ao max P.2 mmHg LV V1 max P.2 mmHg Ao V2 mean: 98.9 cm/sec Ao mean P.5 mmHg Ao V2 VTI: 27.7 cm TR max nino: 295.9 cm/sec TR max P.0 mmHg Interpretation Summary Normal LV size. Moderate concentric left ventricular hypertrophy. Left ventricular systolic function is normal. The estimated ejection fraction is 65 %. Stage 1 diastolic dysfunction. Pulmonary artery systolic pressure is 40 mmHg. Ordering Physician: Luis Benavides Referring Physician: Didier Watkins Performed By: Kena Banuelos, BAUDILIO, RVT
[2018-08-07 10:35] LABS: Blood Gas Specimen Type VEN; VBG BASE EXCESS 1 mmol/L (-1.0-3.5); VBG Bicarbonate 26 mmol/L (22-26); VBG Oxygen Content 27 mmol/L (23-33); VBG PO2 34 mmHg (25-40); VBG SO2 66 % (50-70); VBG pCO2 40.2 mmHg (41-51); VBG pH 7.41 (7.32-7.42)
[2018-08-07 10:35] LABS: Blood Gas Specimen Type VEN; VBG BASE EXCESS -2 mmol/L (-1.0-3.5); VBG Bicarbonate 22 mmol/L (22-26); VBG Oxygen Content 23 mmol/L (23-33); VBG PO2 34 mmHg (25-40); VBG SO2 66 % (50-70); VBG pCO2 35.9 mmHg (41-51)
--- NOTE | 2018-08-07 10:39 | CL.D_ITS ---
Patient Name: NEYMAR SHEPHERD Study Date: 08/07/2018 Performing: Luis Benavides MD Ht: 66.92 inches 170 cm : 1970 Wt: 251.33 lbs 114 kg Age: 47 Gender: female BSA: 2.23 PROCEDURE(S) PERFORMED [id number] ONLY CLINICAL PROFILE AND INDICATIONS Heart Failure: None Stress/Imaging Stress/Image Study Performed: No CAD Presentations: No Sxs, no angina. CONCLUSIONS The patient has pulmonary hypertension which is moderate. Normal pulmonary capillary wedge pressure of 6 RECOMMENDATIONS Refer to necktie turner DESCRIPTION OF PROCEDURE The patient arrived to the procedure lab. The risks and benefits of the procedure as well as a full d escription of our services here and current unavailability of surgical backup were fully explained to the patient and/or their significant other prior to the catheterization. The Timeout was completed, verifying the correct patient and procedure. The patient's procedural site was prepped and draped in the usual fashion. Local anesthetic was given subcutaneously to right brachial region with Lidocaine 2%. Using a modified Seldinger technique, Venous access was obtained via the right brachiocephalic v ein, a 4Fr sheath was inserted A 7Fr thermal dilution catheter was inserted and right heart pressures were recorded, it was then advanced to PA position for cardiac outputs. O2 saturations were then obt ained. Thermal dilution cardiac outputs were then recorded. The Thermal dilution catheter was then re moved.The venous sheath was then pulled and manual compression applied until hemostasis achieved CORONARY ANGIOGRAPHY RIGHT HEART ASSESSMENT Thermal CO: 6.07 Thermal CI: 2.72 PW: 6/5 2 PA: 51/20 31 RV: 48/-7 0 RA: 3/2 0 PVR: 382 Right Heart pressures - elevated COMPLICATIONS No Complications PROCEDURE MEDICATIONS Versed 1 mg IV Versed 1 mg IV Fentanyl 25 mcg IV SUMMARY OF HEMODYNAMIC DATA Time AIR REST ECG 09:45:37 PW 6/5 (2) PV 10:21:41 PA 51/20 (31) PA 10:21:51 PA 56/23 (34) 10:24:08 RV 48/-7, 0 10:25:09 RA 3/2 (0) 10:25:35 Type SV CO (l/m) CI (l/m/ HR Time AIR REST Thermal 74.00 6.07 2.72 82 09:45:37 Label % O2 Pres/Loc Time AIR REST RA 66 SV 10:32:09 PA 66 PA 10:32:12 Signed By Luis Benavides MD On 08/07/2018 10:38:19 Luis Benavides MD
== END 2018-08-07 12:40 | disposition home or self-care (01) ==
LOC: CLSP 08:53
PROVIDERS: Family Provider Family Medicine; PCP Family Medicine; Referring Provider Internal Medicine Cardiovascular Disease; Visit Provider Internal Medicine Cardiovascular Disease
DX: I27.20 Pulmonary hypertension, unspecified (principal); I10 Essential (primary) hypertension; R01.1 Cardiac murmur, unspecified; K21.9 Gastro-esophageal reflux disease without esophagitis; D64.9 Anemia, unspecified; E66.01 Morbid (severe) obesity due to excess calories; Z68.41 Body mass index [BMI] 40.0-44.9, adult; G47.33 Obstructive sleep apnea (adult) (pediatric); Z86.711 Personal history of pulmonary embolism; F10.10 Alcohol abuse, uncomplicated; Z79.899 Other long term (current) drug therapy; Z87.891 Personal history of nicotine dependence
CPT/HCPCS: 36415; 82803; 84703; 93306; 93451; 99152; 99153; J7040; C1751; C1769; C1894

== ENCOUNTER → 2018-08-28 11:11 | Outpatient (CLI) | payer OTHER, SELFPAY ==
[2018-08-06 07:54] VITALS: BMI 39.3
[2018-08-28 12:56] LABS: Cholesterol 257 mg/dL (200); High Density Lipoprotein 71 mg/dL; Triglycerides 141 mg/dL; Very Low Density Lipoprotein 28 mg/dL (5-40)
== END ==
PROVIDERS: Family Provider Family Medicine; PCP Family Medicine; Referring Provider Family Medicine; Visit Provider Family Medicine
DX: I10 Essential (primary) hypertension (principal)
CPT/HCPCS: 36415; 80061

== ENCOUNTER → 2018-11-26 16:20 | Outpatient (CLI) | payer OTHER, SELFPAY ==
[2018-08-06 07:54] VITALS: BMI 39.3
== END ==
PROVIDERS: Family Provider Family Medicine; PCP Family Medicine; Referring Provider Internal Medicine Pulmonary Disease; Visit Provider Internal Medicine Pulmonary Disease
DX: J44.9 Chronic obstructive pulmonary disease, unspecified (principal); R05 Cough
CPT/HCPCS: 87070; 87205

== ENCOUNTER → 2019-02-12 | Outpatient (CLI) | payer OTHER, SELFPAY ==
[2018-08-06 07:54] VITALS: BMI 39.3
[2019-02-12 14:27] LABS: Anion Gap 10 (5-15); BUN 35 mg/dL (7-18); BUN/Creat Ratio 18.6 RATIO (10-20); Calcium,Total 8.8 mg/dL (8.5-10.1); Chloride 108 mmol/L (98-107); Cholesterol 130 mg/dL (200); Creatinine, Serum 1.88 mg/dL (0.55-1.02); EST Glomerular Filtration Rate 30 mL/min (>60); Est Glom Filt Rate - Afr Amer 36 mL/min (>60); Glucose 116 mg/dL (74-106); High Density Lipoprotein 40 mg/dL; Potassium 4.6 mmol/L (3.5-5.1); Sodium Level 142 mmol/L (136-145); Triglycerides 201 mg/dL; Very Low Density Lipoprotein 40 mg/dL (5-40)
== END | disposition home or self-care (01) ==
LOC: MFPLAB 11:24
PROVIDERS: Family Provider Family Medicine; PCP Family Medicine; Referring Provider Family Medicine; Visit Provider Family Medicine
DX: I10 Essential (primary) hypertension (principal)
CPT/HCPCS: 36415; 80048; 80061

== ENCOUNTER 2019-03-19 09:43 | Outpatient (RCR) | payer OTHER, SELFPAY ==
[2018-08-06 07:54] VITALS: BMI 39.3
== END 2019-03-19 23:59 | disposition home or self-care (01) ==
LOC: NS 09:43
PROVIDERS: Family Provider Family Medicine; PCP Family Medicine; Visit Provider Orthopaedic Surgery
DX: E66.9 Obesity, unspecified (principal); Z68.38 Body mass index [BMI] 38.0-38.9, adult; Z71.3 Dietary counseling and surveillance
CPT/HCPCS: 97802

== ENCOUNTER → 2019-04-26 | Outpatient (CLI) | payer OTHER, SELFPAY ==
[2018-08-06 07:54] VITALS: BMI 39.3
--- NOTE | 2019-04-26 13:20 | RAD_ITS ---
We are attempting to reach an attending provider to discuss findings. An addendum with communication details will be sent when the communication is complete. STUDY: X-RAY CHEST REASON FOR EXAM: Female, 48 years old. Shortness of breath chest pain TECHNIQUE: PA and lateral views of the chest. COMPARISON: August 05, 2018 chest x-ray FINDINGS: Since prior study there is been interval development of a right middle lobe or infrahilar infiltrate. There is also visualization of a right upper lobe focal nodular density measuring 9.4 mm. There is no demonstrated pleural abnormality. There is mild to moderate cardiac enlargement. There is a visualized retrocardiac mass with an air-fluid level measuring 9 x 11 cm stable since prior study. Normal visualized pulmonary arteries. There is atherosclerotic tortuosity of the aortic arch and descending thoracic aorta. There are diffuse degenerative changes of the visualized thoracic spine. Normal visualized ribs, clavicles, and shoulders. There is no demonstrated abnormality of the visualized soft tissue structures of the upper abdomen. RAD/Chest PA and Lateral IMPRESSION: Right middle lobe density consider mass versus infiltrate. Hazy focal nodular density right apex. Consider possible infiltrates. Underlying mass is not excluded. Recommend consideration for follow up CT scan of the chest. Large hiatal hernia. [id number] cardiac enlargement. Electronically Signed: Mariana Jolley MD at 18:08 EDT Tel , Service support ,
== END | disposition home or self-care (01) ==
LOC: MTRAD 13:13
PROVIDERS: Family Provider Family Medicine; PCP Family Medicine; Referring Provider Internal Medicine Pulmonary Disease; Visit Provider Internal Medicine Pulmonary Disease
DX: J44.9 Chronic obstructive pulmonary disease, unspecified (principal)
CPT/HCPCS: 71046

== ENCOUNTER → 2019-05-28 14:12 | Outpatient (CLI) | payer OTHER, SELFPAY ==
[2018-08-06 07:54] VITALS: BMI 39.3
[2019-05-28 16:19] LABS: Anion Gap 5 (5-15); BUN 28 mg/dL (7-18); Chloride 108 mmol/L (98-107); Creatinine, Serum 1.44 mg/dL (0.55-1.02); EST Glomerular Filtration Rate 41 mL/min (>60); Est Glom Filt Rate - Afr Amer 49 mL/min (>60); Potassium 3.9 mmol/L (3.5-5.1); Sodium Level 141 mmol/L (136-145)
== END ==
PROVIDERS: Family Provider Family Medicine; PCP Family Medicine; Referring Provider Internal Medicine Pulmonary Disease; Visit Provider Internal Medicine Pulmonary Disease
DX: I27.20 Pulmonary hypertension, unspecified (principal); Z79.899 Other long term (current) drug therapy
CPT/HCPCS: 36415; 80051; 82565; 84520

== ENCOUNTER → 2019-06-01 11:17 | Outpatient (CLI) | payer OTHER, SELFPAY ==
[2018-08-06 07:54] VITALS: BMI 39.3
[2019-06-01 12:59] LABS: Creat.Clear Total Volume 2650 mL; Creatinine Clearance 66 ml/min (100-200); Creatinine Serum Creat 1.2 mg/dL (0.6-1.0); Creatinine Urine 44.4 mg/dL (NO RANGE EST.); Creatinine, Serum 1.24 mg/dL (0.55-1.02); EST Glomerular Filtration Rate 49 mL/min (>60); Est Glom Filt Rate - Afr Amer 59 mL/min (>60)
== END ==
PROVIDERS: Family Provider Family Medicine; PCP Family Medicine; Referring Provider Internal Medicine Pulmonary Disease; Visit Provider Internal Medicine Pulmonary Disease
DX: I27.20 Pulmonary hypertension, unspecified (principal); Z79.899 Other long term (current) drug therapy
CPT/HCPCS: 36415; 81050; 82565; 82575

== ENCOUNTER → 2019-06-11 13:47 | Outpatient (CLI) | payer OTHER, SELFPAY ==
[2018-08-06 07:54] VITALS: BMI 39.3
--- NOTE | 2019-06-11 13:51 | CT_ITS ---
STUDY: CT CHEST WITH CONTRAST REASON FOR EXAM: Female, 48 years old. Abnormal chest x-ray, nodule RADIATION DOSAGE (If Supplied By Facility): CTDIvol = ( 20.04 ) mGy, DLP = ( 734.26 ) mGycm TECHNIQUE: Transaxial imaging was performed following intravenous administration of IV Isovue 300 100. Multiplanar coronal and sagittal images were reformatted. Individualized dose optimization techniques were used for this CT. COMPARISON: Chest x-ray of 04/26/2019, CTA chest of 07/18/2017 FINDINGS: Mild atelectasis in the left lung base. No soft tissue pulmonary nodule. No airspace process. There is no demonstrated pleural abnormality. Normal heart and pericardium. There is a large hiatal hernia with hernia sac fluid along the right lateral border, new since the prior study. The fluid extends to the distal esophagus at the GE junction level (axial image 69 of series 2). Hernia is composed of almost the entire gastric fundus and proximal gastric body. Normal hilar regions. Normal enhanced pulmonary arteries. Normal aorta arch and descending thoracic aorta. There are multi-level degenerative changes of the thoracic spine. There is no demonstrated abnormality of the visualized upper abdomen. CT/Chest WITH Contrast IMPRESSION: 1. No pulmonary nodule/mass/airspace disease. 2. Large hiatal hernia with hernia sac fluid, new since 2017. May be reactive fluid although possibility of hernia sac inflammation should be considered. Patient may benefit from esophagram. Electronically Signed: Lane Gallegos MD ([place]) at 15:16 EDT , Service support ,
== END ==
PROVIDERS: Family Provider Family Medicine; PCP Family Medicine; Referring Provider Family Medicine; Visit Provider Family Medicine
DX: R91.8 Other nonspecific abnormal finding of lung field (principal)
CPT/HCPCS: 71260

== ENCOUNTER → 2019-06-18 09:36 | Outpatient (CLI) | payer OTHER, SELFPAY ==
[2019-06-18 09:32] VITALS: BMI 39.3
[2019-06-18 10:18] LABS: Absolute Lymphocyte Count 0.66 X10^3/uL (0.83-4.51); Absolute Neutrophil Count 5.9 X10^3/uL (2.0-7.7); Basophil# 0.05 X10^3/uL; Basophil% 0.6 % (0-1); Eosinophil# 0.53 X10^3/uL; Eosinophils% 6.8 % (0-5); Hematocrit 26.6 % (37-47); Hemoglobin 6.9 g/dL (12.0-15.0); Lymphocyte # 0.66 X10^3/ul (4.0); Lymphocyte % 8.5 % (19-41); Mean Corp Hgb Conc 25.9 g/dL (32-36); Mean Corpuscular Hgb 18.6 pg (27.0-32.0); Mean Corpuscular Volume 71.7 fL (81-99); Mean Platelet Vol. 9.5 fl (6.2-12.0); Monocyte# 0.59 X10^3/uL; Monocyte% 7.6 % (0-10); NRBC Flagged by Analyzer 0.3 % (0-5); Neutrophil # 5.87 X10^3/uL (2.7-7.7); Neutrophil % 75.6 % (47-70); POSITIVE MORPHOLOGY YES; Platelet Count 306 K/mm3 (150-450); RBC Distribution Width CV 22.6 % (11.6-14.6); RBC Distribution Width SD 57.9 fl (35.1-43.9); Red Blood Count 3.71 M/mm3 (4.2-5.4); White Blood Count 7.8 K/mm3 (4.4-11.0)
[2019-06-18 10:33] LABS: Anion Gap 5 (5-15); BUN 25 mg/dL (7-18); BUN/Creat Ratio 17.5 RATIO (10-20); Calcium,Total 8.6 mg/dL (8.5-10.1); Chloride 107 mmol/L (98-107); Creatinine, Serum 1.43 mg/dL (0.55-1.02); EST Glomerular Filtration Rate 41 mL/min (>60); Est Glom Filt Rate - Afr Amer 50 mL/min (>60); Glucose 122 mg/dL (74-106); Potassium 4.2 mmol/L (3.5-5.1); Sodium Level 138 mmol/L (136-145)
[2019-06-18 10:41] LABS: Anisocytosis 2+; Hypochromasia RARE; Ovalocyte 1+; Platelet Estimate ADEQUATE (ADEQ); Polychromasia 1+; Target Cells RARE
[2019-06-18 10:44] LABS: Differential Indicated SCAN CRITERIA MET
== END ==
PROVIDERS: Family Provider Family Medicine; PCP Family Medicine; Referring Provider Surgery; Visit Provider Surgery
DX: D64.9 Anemia, unspecified (principal); E61.1 Iron deficiency
CPT/HCPCS: 36415; 80048; 85025

== ENCOUNTER → 2019-09-03 11:02 | Outpatient (CLI) | payer OTHER, SELFPAY ==
[2019-06-18 09:32] VITALS: BMI 39.3
[2019-09-03 12:56] LABS: Absolute Lymphocyte Count 0.61 X10^3/uL (0.83-4.51); Basophil# 0.08 X10^3/uL; Eosinophil# 0.74 X10^3/uL; Eosinophils% 9.1 % (0-5); Hematocrit 43.9 % (37-47); Hemoglobin 13.6 g/dL (12.0-15.0); Lymphocyte # 0.61 X10^3/ul (4.0); Lymphocyte % 7.5 % (19-41); Mean Corpuscular Hgb 27.9 pg (27.0-32.0); Mean Corpuscular Volume 90.1 fL (81-99); Mean Platelet Vol. 9.2 fl (6.2-12.0); Monocyte# 0.74 X10^3/uL; Monocyte% 9.1 % (0-10); NRBC Flagged by Analyzer 0 % (0-5); Neutrophil # 5.95 X10^3/uL (2.7-7.7); Neutrophil % 72.7 % (47-70); POSITIVE MORPHOLOGY YES; Platelet Count 198 K/mm3 (150-450); RBC Distribution Width CV 20.8 % (11.6-14.6); RBC Distribution Width SD 71.1 fl (35.1-43.9); Red Blood Count 4.87 M/mm3 (4.2-5.4); White Blood Count 8.2 K/mm3 (4.4-11.0)
[2019-09-03 13:01] LABS: Differential Indicated SCAN CRITERIA MET
[2019-09-03 13:58] LABS: Anisocytosis 1+
== END ==
PROVIDERS: Family Provider Family Medicine; PCP Family Medicine; Referring Provider Family Medicine; Visit Provider Family Medicine
DX: R53.83 Other fatigue (principal)
CPT/HCPCS: 36415; 85025

== ENCOUNTER 2019-09-22 13:11 | Emergency (ER) | payer OTHER, SELFPAY ==
[2019-06-18 09:32] VITALS: BMI 39.3
[2019-09-22 13:12] VITALS: BP 158/106; PULSE 94; RESP 20; TEMP 36.6; O2SAT 97; BMI 42.7
--- NOTE | 2019-09-22 15:16 | CT_ITS ---
STUDY: CT BRAIN WITHOUT CONTRAST REASON FOR EXAM: Female, 48 years old. HEADACHE. PT WOKE UP WITH LARGE BUMP ON BACK OF HEAD TODAY ON RIGHT. NO INJURY RADIATION DOSAGE (If Supplied By Facility): CTDIvol = ( 44.99 ) mGy, DLP = ( 745.49 ) mGycm TECHNIQUE: Transaxial CT imaging of the brain was performed without administration of intravenous contrast material. Individualized dose optimization techniques were used for this CT. COMPARISON: Comparison is made with prior examination dated April 26, 2016. FINDINGS: Small scallop hematoma overlying the posterior right parietal occipital bones. Normal calvarium. Normal size ventricles and extra-axial spaces for the patient''s age. Normal white matter tracts of the cerebral hemispheres. Normal basal ganglia and thalami. Normal brainstem. Normal cerebellum. There is no intracranial hemorrhage. There are no findings of an acute ischemic infarction. Normal visualized paranasal sinuses. CT/Brain/Head without Contrast IMPRESSION: Small right scalp hematoma overlying the right posterior parietal occipital bones. Electronically Signed: George Kaplan, at 15:47 EST , Service support ,
--- NOTE | 2019-09-22 15:17 | ED.DCSUM_ITS ---
- ER Visit Summary Date of Service: 09/22/19 Chief Complaint: Headache History of Present Illness: The patient is a 48 F who presents with right-sided headache that began today. Patient states she woke up with pain on the right side of her head. Patient describes a sharp, dull, aching, and throbbing. Pat ient states she feels some swelling on the right side of her head. Patient states the pain is worse when she moves her head and raises her eyebrows. Patient also admits to recent sinus infection with sore throat and sinus pressure. Patient denies any fevers or chills. Patient denies any nausea or vomiting. Patient does admit to some photophobia and some blurred vision but denies any scotoma. Patient denies any paresthesias or weakness. Physical Examination: Vital signs are stable. Patient is afebrile. Patient is in no acute distress. There is some mild tenderness and edema over the right parietal area. There is no erythema or warmth. There is no discharge or drainage. Oral mucosa is pink and moist. Tympanic membranes are clear. Nasal mucosa is pink and moist. There is no tenderness over the frontal or maxillary sinuses. Neck is supple. Trachea is midline. There is no JVD. Heart was regular rate and rhythm. Lungs are clear and equal bilaterally. Abdomen is soft and nontender. Cranial nerves II through XII are intact. There are no focal motor or sensory deficits noted. Test Results: CT scan of the brain was obtained. There is a small right scalp hematoma. This was interpreted by the radiologist and reviewed by myself. Emergency Department Course and Treatment: Patient was given a dose of morphine here. Patient was instructed to use ice to the area. Patient was instructed to take Tylenol as needed for pain. Patient was instructed to return if worse in any way. Patient was instructed to follow-up with her primary care physician in 3 to 5 days. Patient understood and was agreeable with the plan. All questions were answered. Disposition: Discharge home Impression: Scalp hematoma This note was generated with [employer] dictation software. It may contain incorrect words, spelling, and punctuation that were not noted in review of the chart prior to signing ED Disposition - Plan for ED Patient: Disposition: Home or Assisted Living Diagnosis: Hematoma of right parietal scalp Instructions: SCALP CONTUSION, No Wake Up Referrals: Didier Watkins MD [Primary Care Provider] - 3-5 Days
[2019-09-22] MEDS: 0.9% Normal Saline 1,000 ML 999 ML IV (15:27)
[2019-09-22 16:47] VITALS: BP 175/94; PULSE 93; RESP 18; O2SAT 99
[2019-09-22] MEDS: Morphine 4 MG/ML Syringe IV (16:47)
== END 2019-09-22 16:49 | disposition home or self-care (01) ==
PROVIDERS: Emergency Provider Emergency Medicine; PCP Family Medicine
DX: S00.03XA Contusion of scalp, initial encounter (principal); X58.XXXA Exposure to other specified factors, initial encounter; Y93.9 Activity, unspecified; Y92.9 Unspecified place or not applicable; J32.9 Chronic sinusitis, unspecified; E66.9 Obesity, unspecified; J44.9 Chronic obstructive pulmonary disease, unspecified; I10 Essential (primary) hypertension; I27.20 Pulmonary hypertension, unspecified; K44.9 Diaphragmatic hernia without obstruction or gangrene; Z79.899 Other long term (current) drug therapy; Z87.891 Personal history of nicotine dependence
CPT/HCPCS: 70450; 96361; 96374; 99283; J7030

== ENCOUNTER → 2019-09-28 10:24 | Outpatient (CLI) | payer OTHER, SELFPAY ==
[2019-09-22 13:12] VITALS: BMI 42.7
[2019-09-28 12:17] LABS: Absolute Lymphocyte Count 0.55 X10^3/uL (0.83-4.51); Absolute Neutrophil Count 6.4 X10^3/uL (2.0-7.7); Basophil# 0.05 X10^3/uL; Basophil% 0.6 % (0-1); Eosinophil# 0.34 X10^3/uL; Eosinophils% 4.3 % (0-5); Hemoglobin 8.6 g/dL (12.0-15.0); Lymphocyte # 0.55 X10^3/ul (4.0); Lymphocyte % 6.9 % (19-41); Mean Corp Hgb Conc 28.7 g/dL (32-36); Mean Corpuscular Hgb 26.5 pg (27.0-32.0); Mean Corpuscular Volume 92.3 fL (81-99); Mean Platelet Vol. 9.5 fl (6.2-12.0); Monocyte# 0.63 X10^3/uL; Monocyte% 7.9 % (0-10); NRBC Flagged by Analyzer 0.3 % (0-5); Neutrophil # 6.38 X10^3/uL (2.7-7.7); POSITIVE DIFFERENTIAL YES; Platelet Count 216 K/mm3 (150-450); RBC Distribution Width CV 16.7 % (11.6-14.6); RBC Distribution Width SD 54.5 fl (35.1-43.9); Red Blood Count 3.25 M/mm3 (4.2-5.4)
[2019-09-28 12:28] LABS: Differential Indicated SCAN CRITERIA MET
[2019-09-28 12:56] LABS: Anisocytosis 2+; Hypochromasia 2+; Platelet Estimate ADEQUATE (ADEQ); Stomatocyte 1+
== END ==
LOC: MTLAB 10:25
PROVIDERS: PCP Family Medicine; Referring Provider Internal Medicine Pulmonary Disease; Visit Provider Internal Medicine Pulmonary Disease
DX: I27.20 Pulmonary hypertension, unspecified (principal); G47.33 Obstructive sleep apnea (adult) (pediatric); J44.9 Chronic obstructive pulmonary disease, unspecified
CPT/HCPCS: 36415; 85025

== ENCOUNTER 2020-01-07 08:40 | Emergency (ER) | payer OTHER, SELFPAY ==
[2020-01-07] VITALS (7 sets, daily range): BP systolic 148–155; BP diastolic 78–102; PULSE 89–102; RESP 17–20; TEMP 36.3–36.6; O2SAT 94–96; BMI 43.3
--- NOTE | 2020-01-07 08:50 | EKG12_ITS ---
Test Reason : SOB Blood Pressure : / mmHG Vent. Rate : 096 BPM Atrial Rate : 096 BPM P-R Int : 170 ms QRS Dur : 096 ms QT Int : 370 ms P-R-T Axes : 055 066 001 degrees QTc Int : 467 ms Normal sinus rhythm Normal ECG Confirmed by NIKOLAS CHISHOLM MD ([id number]), staff editor JUDY KAUR ([id number]) on 01/10/2020 3:14:29 PM Referred By: KATHERIN Confirmed By:NIKOLAS CHISHOLM MD
--- NOTE | 2020-01-07 08:52 | ED.VISSUMM ---
- ER Visit Summary Date of Service: 01/07/20 Chief Complaint: Shortness of breath History of Present Illness: The patient is a 49 F who presents with shortness of breath. She states she has had this for 2 days. She noticed it when she was exerting herself. Her shortness of breath gets worse with this. He gets better with rest. She has had a cough productive of sputum which she states may be due to some allergies. She has some pains in the middle part of her chest and in her bilateral rib areas which she describes as sharp. She has a history of a anemia with transfusions in the past. She denies any exposures to coronavirus. Physical Examination: Vital signs reviewed. HEENT exam unremarkable. Heart is tachycardic and regular rhythm without murmurs. Lungs are clear to auscultation. Chest is nontender. Abdomen is soft and nontender. Extremities reveal no edema. Skin exam normal. Neurologic exam normal. Test Results: EKG is sinus rhythm with a rate of 96. No ST changes. Laboratory studies are unremarkable except for d-dimer 0.71. Chest x-ray shows chronic changes. CTA of the chest shows no PE. She does have a small pericardial effusion and other chronic findings Emergency Department Course and Treatment: Patient was given albuterol and feels better. With ambulation she is 95% on room air. I will give her a dose of prednisone here and prednisone for home. I do not see any acute causes for this patient's dyspnea. She does have COPD. She also has albuterol and trilogy. Treatment Plan: [] Disposition: Discharge Impression: Dyspnea This note was generated with [employer] dictation software. It may contain incorrect words, spelling, and punctuation that were not noted in review of the chart prior to signing ED Disposition - Plan for ED Patient: Disposition: Home or Assisted Living Instructions: ED Dyspnea Prescriptions: Prednisone [Deltasone] 40 mg PO DAILY #8 tab Transmission Status: Pending to [facility] Referrals: Didier Watkins MD [Primary Care Provider] -
--- NOTE | 2020-01-07 09:20 | RAD_ITS ---
STUDY: X-RAY CHEST REASON FOR EXAM: Female, 49 years old. SOB, CHEST DISCOMFORT WITH DEEP BREATH AND LYING ON SIDE, PRODUCTIVE COUGH. HX COPD TECHNIQUE: Single AP portable view of the chest. COMPARISON: Comparison is made with prior study April 26, 2019. FINDINGS: EKG electrodes are seen. Stable mild increased markings at the lung bases slightly worse on the left side. Blunting of the left costophrenic angle. There is moderate cardiac enlargement. Normal mediastinum and mayra. Normal visualized pulmonary arteries. Normal visualized aortic arch and descending thoracic aorta. Normal visualized thoracic spine. Metallic anchor overlying the left humeral head most likely secondary to prior rotator cuff surgery. Large hiatal hernia. RAD/Chest 1 View (Portable) IMPRESSION: Stable mild increased markings at the lung bases slightly more prominent on the left side suggestive of atelectasis and/or scarring. Blunting of the left costophrenic angle. Large hiatal hernia. Cardiomegaly. Electronically Signed: George Kaplan, at 9:37 EDT , Service support ,
[2020-01-07 09:21] LABS: Absolute Lymphocyte Count 0.54 X10^3/uL (0.83-4.51); Basophil# 0.08 X10^3/uL; Basophil% 0.7 % (0-1); Eosinophil# 0.38 X10^3/uL; Eosinophils% 3.5 % (0-5); Hematocrit 39.7 % (37-47); Lymphocyte # 0.54 X10^3/ul (4.0); Mean Corp Hgb Conc 30.2 g/dL (32-36); Mean Corpuscular Hgb 26.6 pg (27.0-32.0); Mean Platelet Vol. 9.7 fl (6.2-12.0); Monocyte# 0.72 X10^3/uL; Monocyte% 6.7 % (0-10); NRBC Flagged by Analyzer 0 % (0-5); Neutrophil # 9.02 X10^3/uL (2.7-7.7); Neutrophil % 83.5 % (47-70); POSITIVE DIFFERENTIAL YES; Platelet Count 159 K/mm3 (150-450); RBC Distribution Width CV 17.3 % (11.6-14.6); RBC Distribution Width SD 52.3 fl (35.1-43.9); Red Blood Count 4.51 M/mm3 (4.2-5.4); White Blood Count 10.8 K/mm3 (4.4-11.0)
[2020-01-07 09:23] LABS: Differential Indicated SCAN CRITERIA MET
[2020-01-07 09:37] LABS: BNP,B-Type NATRIURETIC PEPTIDE 125.4 pg/mL (0-100)
[2020-01-07 09:42] LABS: Anion Gap 6 (5-15); BUN 19 mg/dL (7-18); BUN/Creat Ratio 14.8 RATIO (10-20); Calcium,Total 8.9 mg/dL (8.5-10.1); Chloride 103 mmol/L (98-107); Creatinine, Serum 1.28 mg/dL (0.55-1.02); EST Glomerular Filtration Rate 47 mL/min (>60); Est Glom Filt Rate - Afr Amer 57 mL/min (>60); Estimated Creatinine Clearance 48.68 ml/min; Glucose 123 mg/dL (74-106); Potassium 3.8 mmol/L (3.5-5.1); Sodium Level 137 mmol/L (136-145)
[2020-01-07 10:03] LABS: D-Dimer Quantitative (DVT/PE) 0.72 FEU/ug/m (0.27-0.49)
--- NOTE | 2020-01-07 10:03 | CT_ITS ---
STUDY: CTA CHEST REASON FOR EXAM: Female, 49 years old. PT STATED SHORT OF BREATH, COUGH, ELEVATED DDIMER RADIATION DOSAGE (If Supplied By Facility): CTDIvol = ( 23.05 ) mGy, DLP = ( 852.19 ) mGycm TECHNIQUE: The examination was performed with the intravenous administration of 100ML ISOVUE 370. Post-processing of the angiographic images was performed, with multiplanar reformation and 3D reconstruction. Individualized dose optimization techniques were used for this CT. COMPARISON: Comparison is made with prior chest radiograph done earlier in the day as well as prior CT scan of the chest dated July 18, 2017. FINDINGS: Normal enhancement of the main pulmonary artery and right and left pulmonary arteries. Normal enhancement of the bilateral peripheral pulmonary arteries. There is no demonstrated pulmonary embolism. Normal thoracic aorta and visualized great vessels. There is no demonstrated aortic dissection. Small pericardial effusion worse along the left cardiac border as well as at the base of the heart. There are calcifications of the coronary arteries. There are visualized mediastinal lymph nodes, which are within normal size limits, and with normal morphology. Normal hilar regions. Normal visualized trachea and bronchi. The lungs are well expanded. Linear density in the anterior aspect of the left upper lobe suggestive of a scarring. This has progressed as compared to prior study. Mild degree of increased markings at the left lung base suggestive of atelectasis and/or scarring. This is unchanged as compared to prior study. Normal pleura. Normal chest wall structures. There are degenerative changes of thoracic spine. There is a large sliding hiatal hernia. Fatty infiltration of the liver. CT/CTA Chest W/WO Contrast IMPRESSION: No evidence of pulmonary embolism. Small pericardial effusion worse along the left cardiac border as well as the base of the heart. Coronary artery calcification. Increased linear markings at the left apex suggestive of atelectasis and/or scarring. Stable mild increased markings at the left lung base. Large hiatal hernia. Fatty infiltration of the liver. Electronically Signed: George Kaplan, at 11:05 EDT , Service support ,
[2020-01-07] MEDS: Albuterol 2.5 MG/3 ML VIAL.NEB. INHALATION (11:21)
--- NOTE | 2020-01-07 12:00 | ED.RN ---
security in department. pt continues to yell and scream at staff. pt slamming doors. facility requesting covid testing. ordered
[2020-01-07] MEDS: predniSONE 20 MG Tablet 40 MG PO (12:29)
== END 2020-01-07 12:31 | disposition home or self-care (01) ==
PROVIDERS: Emergency Provider Emergency Medicine; PCP Family Medicine
DX: R06.00 Dyspnea, unspecified (principal); I31.3 Pericardial effusion (noninflammatory); J44.9 Chronic obstructive pulmonary disease, unspecified; Z86.2 Personal history of diseases of the blood and blood-forming organs and certain disorders involving the immune mechanism
CPT/HCPCS: 71045; 71275; 80048; 83880; 84484; 85025; 85379; 93005; 94640; 99285; Q9967; A4216

== ENCOUNTER → 2020-03-02 13:19 | Outpatient (CLI) | payer OTHER, SELFPAY ==
[2020-01-07 08:40] VITALS: BMI 43.3
--- NOTE | 2020-03-02 13:22 | BI_ITS ---
MAMMOGRAPHY - BILATERAL SCREENING REASON FOR EXAM: Female, 49 years old. Routine annual screening examination. PERTINENT HISTORY: Mother with breast cancer. TECHNIQUE: Digital bilateral breast abi (3D mammographic acquisition) in the CC and MLO projections. 2-D mediolateral oblique (MLO) and craniocaudad (CC) views of both breasts were obtained. CAD: Full Field Digital Mammography with Computer Added Detection was performed. COMPARISON: Comparison is made with prior examination dated October 02, 2016 FINDINGS: Breast Composition: The breasts are almost entirely fatty. There are no dominant masses or suspicious calcifications. No other significant abnormalities are identified. There has been no significant change since the prior study. BI/SCREEN MAMM (CAD) W/ABI BILAT IMPRESSION: Stable bilateral screening mammogram. Yearly follow-up mammogram recommended. (A) ASSESSMENT CATEGORY: BIRADS Category 1: Negative. A letter regarding these results will be sent to the patient by the facility within 30 days. Approximately 10% of breast cancers are not detected by mammography. A normal mammogram should not delay biopsy of a clinically suspicious abnormality. [id number] Electronically Signed: George Kpalan, at 8:18 EDT , Service support ,
--- NOTE | 2020-03-02 13:25 | BD_ITS ---
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 COMPARISON: None. FINDINGS: Lumbar Spine (L1-L4): g/cm2 (1.085) / T-score (-0.7) / Z-score (-0.2) Findings are suggestive of normal bone density with a low fracture risk. Left Femur Total: g/cm2 (1.167) / T-score (1.3) / Z-score (1.8) Left Femoral Neck: g/cm2 (0.980) / T-score (-0.4) / Z-score (0.4) Right Femur Total: g/cm2 (1.170) / T-score (1.3) / Z-score (1.8) Right Femoral Neck: g/cm2 (0.975) / T-score (-0.4) / Z-score (0.4) BD/Dexa Bone Density Study IMPRESSION: The patient is considered normal as outlined below according to World Zaki Organization (WHO) criteria with a low fracture risk. Reference Information: The T-score is the number of standard deviations above or below the standard which is normal for young adults at their peak bone mineral density. The World Health Organization (WHO) interprets the T-scores as follows: Above -1 Normal bone density Between -1 and -2.5 Osteopenia Equal to / or below -2.5 Osteoporosis As a practical clinical guideline, osteopenia may be graded as follows: Mild -1 through -1.5 Moderate -1.6 through -2.0 Severe -2.1 through -2.4 The Z-score is the number of standard deviations above or below age-matched controls. A Z-score of less than -1.5 would be considered abnormal. References: 1. NIH Osteoporosis and Related Bone Diseases http://www.osteo.org 2. International Society for Clinical Densitometry http://www.iscd.org 3. National Osteoporosis Foundation http://www.nof.org Electronically Signed: George Kaplan, at 8:54 EDT , Service support ,
[2020-03-02 13:44] LABS: Anion Gap 7 (5-15); BUN 11 mg/dL (7-18); BUN/Creat Ratio 11.5 RATIO (10-20); Calcium,Total 8.3 mg/dL (8.5-10.1); Chloride 107 mmol/L (98-107); Cholesterol 182 mg/dL (200); Creatinine, Serum 0.96 mg/dL (0.55-1.02); EST Glomerular Filtration Rate 65 mL/min (>60); Est Glom Filt Rate - Afr Amer 79 mL/min (>60); Glucose 132 mg/dL (74-106); High Density Lipoprotein 64 mg/dL; Potassium 3.4 mmol/L (3.5-5.1); Sodium Level 140 mmol/L (136-145); Thyroid Stim Hormone (TSH) 4.47 uIU/mL (0.358-3.74); Triglycerides 228 mg/dL; Very Low Density Lipoprotein 46 mg/dL (5-40)
[2020-03-02 15:18] LABS: Vitamin D,25 Hydroxy 11.3 ng/mL
== END ==
PROVIDERS: PCP Family Medicine; Referring Provider Family Medicine; Visit Provider Family Medicine
DX: Z00.00 Encounter for general adult medical examination without abnormal findings (principal); Z12.31 Encounter for screening mammogram for malignant neoplasm of breast; Z78.0 Asymptomatic menopausal state
CPT/HCPCS: 36415; 77063; 77067; 77080; 80048; 80061; 82306; 84443

== ENCOUNTER → 2020-05-29 15:45 | Outpatient (CLI) | payer OTHER, SELFPAY ==
[2020-01-07 08:40] VITALS: BMI 43.3
[2020-05-29 18:06] LABS: Absolute Lymphocyte Count 0.56 X10^3/uL (0.83-4.51); Absolute Neutrophil Count 6.8 X10^3/uL (2.0-7.7); Basophil# 0.09 X10^3/uL; Basophil% 1.1 % (0-1); Eosinophil# 0.42 X10^3/uL; Eosinophils% 4.9 % (0-5); Hematocrit 44.4 % (37-47); Hemoglobin 13.7 g/dL (12.0-15.0); Lymphocyte # 0.56 X10^3/ul (4.0); Lymphocyte % 6.5 % (19-41); Mean Corp Hgb Conc 30.9 g/dL (32-36); Mean Corpuscular Hgb 28.2 pg (27.0-32.0); Mean Corpuscular Volume 91.4 fL (81-99); Mean Platelet Vol. 10.2 fl (6.2-12.0); Monocyte# 0.64 X10^3/uL; Monocyte% 7.5 % (0-10); NRBC Flagged by Analyzer 0 % (0-5); Neutrophil # 6.78 X10^3/uL (2.7-7.7); Neutrophil % 79.3 % (47-70); POSITIVE DIFFERENTIAL YES; Platelet Count 168 K/mm3 (150-450); RBC Distribution Width CV 16.1 % (11.6-14.6); RBC Distribution Width SD 54.2 fl (35.1-43.9); Red Blood Count 4.86 M/mm3 (4.2-5.4); White Blood Count 8.6 K/mm3 (4.4-11.0)
[2020-05-29 18:15] LABS: Differential Indicated SCAN CRITERIA MET
[2020-05-29 18:40] LABS: Anion Gap 7 (5-15); BUN 15 mg/dL (7-18); Calcium,Total 9.2 mg/dL (8.5-10.1); Chloride 103 mmol/L (98-107); Cholesterol 214 mg/dL (200); Creatinine, Serum 1.07 mg/dL (0.55-1.02); EST Glomerular Filtration Rate 57 mL/min (>60); Est Glom Filt Rate - Afr Amer 69 mL/min (>60); Free T3 2.4 pg/mL (2.18-3.98); Glucose 116 mg/dL (74-106); High Density Lipoprotein 63 mg/dL; Potassium 3.8 mmol/L (3.5-5.1); Sodium Level 137 mmol/L (136-145); Thyroid Stim Hormone (TSH) 1.57 uIU/mL (0.358-3.74); Triglycerides 143 mg/dL; Very Low Density Lipoprotein 29 mg/dL (5-40)
[2020-05-29 18:49] LABS: Differential Comment SCANNED
== END ==
PROVIDERS: PCP Family Medicine; Visit Provider Family Medicine
DX: I10 Essential (primary) hypertension (principal); R73.01 Impaired fasting glucose; E61.1 Iron deficiency; E03.9 Hypothyroidism, unspecified
CPT/HCPCS: 36415; 80048; 80061; 84443; 84481; 85025

== ENCOUNTER → 2020-06-12 17:02 | Outpatient (CLI) | payer OTHER, SELFPAY ==
[2020-01-07 08:40] VITALS: BMI 43.3
--- NOTE | 2020-06-12 17:06 | RAD_ITS ---
STUDY: X-RAY CHEST REASON FOR EXAM: Female, 49 years old. ATELECTESIS, COPD, PULMONARY HYPERTENSION TECHNIQUE: Frontal view COMPARISON: 01/07/2020 FINDINGS: The lungs are clear and expanded. There is no demonstrated pleural abnormality. Cardiomegaly. Possible hiatal or left diaphragmatic hernia. Normal mediastinum and mayra. Normal visualized pulmonary arteries. Normal visualized aortic arch and descending thoracic aorta. Normal visualized thoracic spine. Normal visualized ribs, clavicles, and shoulders. There is no demonstrated abnormality of the visualized soft tissue structures of the upper abdomen. RAD/Chest PA and Lateral IMPRESSION: Cardiomegaly. Hiatal or left diaphragmatic hernia. Electronically Signed: Leighton Watson DO at 18:34 EDT Tel [phone], Service support ,
== END ==
PROVIDERS: PCP Family Medicine; Referring Provider Internal Medicine Pulmonary Disease; Visit Provider Internal Medicine Pulmonary Disease
DX: J44.9 Chronic obstructive pulmonary disease, unspecified (principal); J98.11 Atelectasis
CPT/HCPCS: 71046

== ENCOUNTER → 2020-07-17 16:11 | Outpatient (CLI) | payer OTHER, SELFPAY ==
[2020-01-07 08:40] VITALS: BMI 43.3
[2020-07-17 17:12] LABS: Hematocrit 43.8 % (37-47); Hemoglobin 13.7 g/dL (12.0-15.0); Mean Corp Hgb Conc 31.3 g/dL (32-36); Mean Corpuscular Hgb 30.6 pg (27.0-32.0); Mean Platelet Vol. 9.6 fl (6.2-12.0); Platelet Count 161 K/mm3 (150-450); RBC Distribution Width SD 57.8 fl (35.1-43.9); Red Blood Count 4.47 M/mm3 (4.2-5.4); White Blood Count 10.6 K/mm3 (4.4-11.0)
[2020-07-17 17:52] LABS: BNP,B-Type NATRIURETIC PEPTIDE 248.2 pg/mL (0-100)
== END ==
PROVIDERS: PCP Family Medicine; Visit Provider Internal Medicine Pulmonary Disease
DX: I27.20 Pulmonary hypertension, unspecified (principal); J44.9 Chronic obstructive pulmonary disease, unspecified
CPT/HCPCS: 36415; 83880; 85027

== ENCOUNTER 2020-08-01 15:59 | Emergency (ER) | payer OTHER, SELFPAY ==
[2020-01-07 08:40] VITALS: BMI 43.3
[2020-08-01 16:00] VITALS: BP 196/120; PULSE 105; RESP 17; TEMP 35.9; O2SAT 94; BMI 41.5
--- NOTE | 2020-08-01 16:16 | CT_ITS ---
STUDY: CT ABDOMEN AND PELVIS WITH CONTRAST REASON FOR EXAM: Female, 49 years old. Right upper quadrant pain for 3 days. History of alcoholism and multiple UTIs. Surgical history of hysterectomy. RADIATION DOSAGE (If Supplied By Facility): CTDIvol = ( 20.53 ) mGy, DLP = ( 1504.87 ) mGycm TECHNIQUE: Transaxial images were obtained from the dome of the diaphragm to the symphysis pubis without oral contrast. IV 100mL Isovue-370 was administered. Sagittal and coronal images were reconstructed. Individualized dose optimization techniques were used for this CT. COMPARISON: 09/16/2016. FINDINGS: The visualized lung bases are unremarkable. The visualized portions of the heart are within normal limits. The liver is diffusely fatty infiltrated but without mass. Normal gallbladder and extrahepatic biliary system. Normal spleen. Normal pancreas. Normal bilateral adrenal glands. Normal right kidney. Normal left kidney. Normal ureters. There is a large retrocardiac hiatal hernia containing the proximal stomach fluid and retroperitoneal fat. The distal stomach lies within the abdomen is unremarkable. Normal small intestine. Sigmoid diverticulosis without acute inflammatory change. The proximal colon is unremarkable. The appendix is visualized and appears normal. Normal abdominal aorta. Normal inferior vena cava. Normal retroperitoneum. Normal urinary bladder. Normal vaginal cuff. There are phleboliths in the pelvis without lymphadenopathy. No free air or free fluid is seen within the peritoneal cavity. Umbilical hernia of omental fat. The abdominal wall is otherwise grossly unremarkable. There are diffuse degenerative changes of the visualized lumbar spine. CT/Abdomen/Pelvis W IV Cont ONLY IMPRESSION: 1. Large retrocardiac hiatal hernia. There is an area of fluid in the right portion on the hernia not previously noted. No other free fluid is seen. 2. Fatty infiltration of the liver unchanged from prior study. 3. Sigmoid diverticulosis without inflammatory change. 4. No evidence of acute intra-abdominal or pelvic process or other interval change. Electronically Signed: Errol Argueta DO at 18:07 EST Tel [phone], Service support ,
--- NOTE | 2020-08-01 16:17 | ED.VIS.GEN ---
History of Present Illness Chief Complaint: Abd Pain Narrative: This patient is a 49-year-old female who presents with right upper quadrant pain. This is been present for 3 days. She describes it as aching. At rest she states is more of a nuisance or discomfort than actual pain but it is painful if she sits up or moves certain positions. She also complains of abdominal distention. No fevers nausea or vomiting.. She does report some mild diarrhea. She denies fever cough chest pain difficulty breathing or any upper respiratory symptoms. No history of abdominal surgeries. Past Medical History - Allergies and Home Meds Allergies/Adverse Reactions: Allergies tramadol Allergy (Intermediate, Verified 08/01/20 15:59) GI upset doxycycline Allergy (Verified 08/01/20 15:59) Hives hydrocodone [From Vicodin] Adverse Reaction (Verified 08/01/20 15:59) Itching Primary Care Physician: Didier Watkins MD [Primary Care Provider] - Past Medical History: - - Alcoholism, hypertension, COPD, pulmonary hypertension Surgical History: rotator cuff repair - BL, - - x 1, nasal surgery. Smoking Status: Former smoker - Family History Maternal Family History: Family History (Last Updated 06/18/19 @ 09:17 by Alaina Covarrubias) Mother Breast cancer Cancer Father Cancer Hypertension High cholesterol Family History: Reports: Hypertension Paternal Family History: Family History (Last Updated 06/18/19 @ 09:17 by Alaina Covarrubias) Mother Breast cancer Cancer Father Cancer Hypertension High cholesterol Family History: Reports: Hypertension Review of Systems All systems negative except as indicated General: Denies: Fever Eyes: Denies: Visual changes - bilaterally ENT: Denies: Bilateral ear pain Cardiovascular: Denies: Chest pain Respiratory: Denies: Dyspnea, Cough, Sputum Gastrointestinal: Reports: Abdominal pain. Denies: Nausea, Vomiting Musculoskeletal: Denies: Myalgias, Arthralgias Skin: Denies: Rash Neurological: Denies: Headache Hematologic: Denies: Easy bruising Allergy: Denies: Uticaria Physical Exam Vital Signs/Narrative: Vital Signs Temp Pulse Resp BP Pulse Ox 08/01/20 16:00 96.7 F L 105 H 17 196/120 H 94 Inital Vital Signs reviewed: Yes General: Well nourished, Well developed Head: Normocephalic Eyes: EOMI ENT: Moist mucous membranes Neck: Supple Cardiovascular: Regular rhythm, Tachycardia Respiratory: No distress, CTA bilaterally Abdomen: Soft, - - Patient does not have any reproducible abdominal tenderness no guarding no rebound she is distended Extremities: Nontender Skin: Normal color Neurological: Alert Psychological: Normal affect Diagnostic/Tx/Re-eval Impressions Abdomen/Pelvis CT 08/01/20 16:16 IMPRESSION: 1. Large retrocardiac hiatal hernia. There is an area of fluid in the right portion on the hernia not previously noted. No other free fluid is seen. 2. Fatty infiltration of the liver unchanged from prior study. 3. Sigmoid diverticulosis without inflammatory change. 4. No evidence of acute intra-abdominal or pelvic process or other interval change. Electronically Signed: Errol Argueta DO at 18:07 EST Tel [phone], Service support , 08/01/20 16:16 CT Abd [Abdomen/Pelvis W IV Cont ONLY] [CT] Stat Laboratory Results 08/01/20 08/01/20 08/01/20 16:30 16:30 16:30 WBC 6.4 RBC 4.68 Hgb 14.3 Hct 45.2 MCV 96.6 MCH 30.6 MCHC 31.6 L RDW Std Deviation 53.7 H RDW Coeff of Leighton 15.2 H Plt Count 154 MPV 9.2 Immature Gran % (Auto) 0.600 Neut % (Auto) 81.4 H Lymph % (Auto) 5.0 L Spencer % (Auto) 7.0 Eos % (Auto) 5.1 H Baso % (Auto) 0.9 Absolute Neuts (auto) 5.2 Absolute Lymphs (auto) 0.32 L Nucleated RBC % 0 Differential Comment SCANNED Sodium 138 Potassium 3.4 L Chloride 103 Carbon Dioxide 29.0 Anion Gap 6 BUN 13 Creatinine 1.02 Estim Creat Clear Calc 63.45 Est GFR (MDRD) Af Amer 73 Est GFR (MDRD) Non-Af 61 BUN/Creatinine Ratio 12.7 Glucose 132 H Calcium 9.3 Total Bilirubin 1.80 H AST 56 H ALT 85 H Alkaline Phosphatase 163 H Total Protein 7.4 Albumin 3.5 Globulin 3.9 Albumin/Globulin Ratio 0.9 Lipase 86 Ethyl Alcohol < 3.0 - Medical Decision Making Labs are notable for mild elevation of transaminases and bilirubin. CT the abdomen pelvis was obtained which does show a large retrocardiac hiatal hernia with a fluid collection on the right side of the hernia. This was not previously visualized I initially spoke to Dr. Andujar who is on-call for general surgery. He vocalized concerned that this could be a perforation. Regardless she likely requires a higher level of care and consultation from thoracic surgery. Patient was discussed with Dr. Hurt at [facility] and patient was accepted for transfer to the emergency department. ED Disposition - Plan for ED Patient: Disposition: [facility] Diagnosis: RUQ abdominal pain, Hiatal hernia Referrals: Didier Watkins MD [Primary Care Provider] -
[2020-08-01 16:49] LABS: Absolute Lymphocyte Count 0.32 X10^3/uL (0.83-4.51); Absolute Neutrophil Count 5.2 X10^3/uL (2.0-7.7); Basophil# 0.06 X10^3/uL; Basophil% 0.9 % (0-1); Eosinophil# 0.33 X10^3/uL; Eosinophils% 5.1 % (0-5); Hematocrit 45.2 % (37-47); Hemoglobin 14.3 g/dL (12.0-15.0); Lymphocyte # 0.32 X10^3/ul (4.0); Mean Corp Hgb Conc 31.6 g/dL (32-36); Mean Corpuscular Hgb 30.6 pg (27.0-32.0); Mean Corpuscular Volume 96.6 fL (81-99); Mean Platelet Vol. 9.2 fl (6.2-12.0); Monocyte# 0.45 X10^3/uL; NRBC Flagged by Analyzer 0 % (0-5); Neutrophil # 5.23 X10^3/uL (2.7-7.7); Neutrophil % 81.4 % (47-70); POSITIVE DIFFERENTIAL YES; Platelet Count 154 K/mm3 (150-450); RBC Distribution Width CV 15.2 % (11.6-14.6); RBC Distribution Width SD 53.7 fl (35.1-43.9); Red Blood Count 4.68 M/mm3 (4.2-5.4); White Blood Count 6.4 K/mm3 (4.4-11.0)
[2020-08-01 16:53] LABS: Differential Indicated SCAN CRITERIA MET
[2020-08-01 17:20] LABS: ALB/GLOB Ratio 0.9 RATIO (0.9-2.4); AST(SGOT) 56 U/L (15-37); Alanine Aminotransfer ALT/SGPT 85 U/L (13-56); Albumin, Serum 3.5 g/dL (3.2-5.0); Alkaline Phosphatase 163 U/L (45-117); Anion Gap 6 (5-15); BUN 13 mg/dL (7-18); BUN/Creat Ratio 12.7 RATIO (10-20); Calcium,Total 9.3 mg/dL (8.5-10.1); Chloride 103 mmol/L (98-107); Creatinine, Serum 1.02 mg/dL (0.55-1.02); EST Glomerular Filtration Rate 61 mL/min (>60); Est Glom Filt Rate - Afr Amer 73 mL/min (>60); Estimated Creatinine Clearance 63.45 ml/min; Globulin 3.9 g/dL (2.2-4.2); Glucose 132 mg/dL (74-106); Lipase 86 U/L (73-393); Potassium 3.4 mmol/L (3.5-5.1); Protein, Total 7.4 g/dL (6.4-8.2); Sodium Level 138 mmol/L (136-145)
[2020-08-01 17:25] LABS: Differential Comment SCANNED
[2020-08-01 17:52] LABS: Alcohol, Blood (Medical)-Serum < 3.0 mg/dL
[2020-08-01 18:00] VITALS: BP 175/118; PULSE 98; RESP 16; O2SAT 93
[2020-08-01 20:00] VITALS: BP 174/124; PULSE 101; RESP 18; O2SAT 93
[2020-08-01] MEDS: LORazepam 2 MG/ML Syringe 1 MG IV (20:03)
[2020-08-01 20:52] VITALS: BP 173/115; PULSE 100; RESP 18; O2SAT 90
--- NOTE | 2020-08-01 21:48 | ED.RN ---
report given to physicians at [id number]
== END 2020-08-01 21:48 | disposition short-term general hospital (02) ==
PROVIDERS: Emergency Provider Emergency Medicine; PCP Family Medicine
DX: K44.9 Diaphragmatic hernia without obstruction or gangrene (principal); I10 Essential (primary) hypertension; J44.9 Chronic obstructive pulmonary disease, unspecified; I27.20 Pulmonary hypertension, unspecified; F10.20 Alcohol dependence, uncomplicated; Z87.440 Personal history of urinary (tract) infections; Z79.899 Other long term (current) drug therapy; Z87.891 Personal history of nicotine dependence
CPT/HCPCS: 74177; 80053; 80320; 83690; 85025; 87426; 96374; 99285; Q9967; A4216; G0480

== ENCOUNTER 2020-11-07 23:08 | Outpatient (RCR) | payer OTHER, SELFPAY ==
[2020-11-07] MEDS: COVID-19 VACC, MRNA(PFIZER)/PF 30 MCG/0.3 ML SYRINGE IM (19:00)
[2020-11-28] MEDS: COVID-19 VACC, MRNA(PFIZER)/PF 30 MCG/0.3 ML SYRINGE IM (18:30)
== END 2021-02-06 23:59 ==
LOC: IMMUN 23:08
PROVIDERS: PCP Family Medicine; Visit Provider Family Medicine
DX: Z23 Encounter for immunization (principal)
CPT/HCPCS: 0001A; 0002A; 91300

== ENCOUNTER 2020-12-28 10:19 | Inpatient (IN) | payer OTHER, SELFPAY ==
[2020-12-28] VITALS (29 sets, daily range): BP systolic 124–178; BP diastolic 75–113; PULSE 80–155; RESP 16–32; TEMP 36.6–37.1; O2SAT 89–100; BMI 35.2; BMI 37.5
--- NOTE | 2020-12-28 10:40 | EKG12_ITS ---
Test Reason : SOB Blood Pressure : / mmHG Vent. Rate : 088 BPM Atrial Rate : 088 BPM P-R Int : 164 ms QRS Dur : 078 ms QT Int : 384 ms P-R-T Axes : 060 052 007 degrees QTc Int : 464 ms Normal sinus rhythm Normal ECG Confirmed by ANTONIO DIAZ, SARAI ([id number]), writer editor SHERYL PRAJAPATI ([id number]) on 01/01/2021 10:10:53 AM Referred By: VIGNESH Confirmed By:SARAI ALVAREZ MD
--- NOTE | 2020-12-28 10:43 | ED.VIS.DYS ---
HPI History of Present Illness Chief Complaint: Chest Pain Detail of Chief Complaint: Short of breath for 2 to 3 days. Onset/Context/Timing Onset: Yesterday Associated Symptoms cough Chest Pain: Positive for Intermittent, Sharp and Dull Narrative Narrative: Patient feels like she had 2 panic attacks 3 days ago when thought she was getting over that but then started having more shortness of breath over the last 24 hours. Patient having a cough. She has had low-grade fever up to 100.0. Patient has had prior Covid vaccine x2. Patient states that she thinks she might be having a COPD flare. Patient has history of sleep apnea, COPD, anxiety, and pulmonary hypertension. Patient denies recent travel or surgery. She also describes some retrosternal chest discomfort and some tightness especially with breathing. PFSH PFSH Medical History Alcohol abuse Allergic rhinitis Anemia Anxiety Arthritis COPD (chronic obstructive pulmonary disease) Depression Essential (primary) hypertension GERD (gastroesophageal reflux disease) Hiatal hernia History of back problems HLD (hyperlipidemia) Iron deficiency Morbid obesity with BMI of 40.0-44.9, adult Obstructive sleep apnea Pneumonia Pulmonary arterial hypertension Pulmonary embolism (04/26/16) Pulmonary hypertension Sleep apnea Tobacco user Home Medications bumetanide 0.5 mg tablet 0.5 mg PO DAILY 06/18/19 [History Last Taken 07/31/20] cyclobenzaprine 5 mg tablet 5 mg PO TID 06/18/19 [History Last Taken 08/01/20] fluticasone fur. 100 mcg-umeclid 62.5 mcg-vilant 25 mcg inhalat.powder 1 inh INHALATION DAILY 06/18/19 [History Last Taken 08/01/20] metoprolol tartrate 50 mg tablet 50 mg PO DAILY tab 06/18/19 [History Last Taken 07/31/20] nortriptyline 50 mg capsule 50 mg PO QHS 06/18/19 [History Last Taken 07/31/20] rosuvastatin 5 mg tablet 5 mg PO DAILY 06/18/19 [History Last Taken 07/31/20] sildenafil 25 mg tablet 25 mg PO TID 06/18/19 [History Last Taken 07/31/20] albuterol sulfate 1 - 2 puff IH Q4H PRN PRN 09/22/19 [History Last Taken 08/01/20] acetaminophen 1,000 mg PO DAILY PRN PRN 08/01/20 [History Last Taken 08/01/20] cholecalciferol (vitamin D3) 400 unit PO DAILY 08/01/20 [History Last Taken 07/31/20] esomeprazole magnesium 40 mg PO DAILY 08/01/20 [History Last Taken 07/31/20] folic acid 1 mg PO DAILY 08/01/20 [History Last Taken 07/31/20] levothyroxine 25 mcg PO DAILY 08/01/20 [History Last Taken 07/31/20] Allergy/AdvReac Type Severity Reaction Status Date / Time tramadol Allergy Intermediate GI upset Verified 12/28/20 10:31 doxycycline Allergy Hives Verified 12/28/20 10:31 hydrocodone [From Vicodin] AdvReac Itching Verified 12/28/20 10:31 Family History (Updated 06/18/19 @ 09:17 by Alaina Covarrubias) Mother Breast cancer Cancer lung cancer Father Cancer lung cancer Hypertension High cholesterol Surgical History (Updated 08/01/20 @ 16:[address] Elroy Blair MD) H/O repair of rotator cuff History of History of hysterectomy History of nasal surgery Social History (Updated 06/18/19 @ 09:[address] Anatoliy Gill MD) Smoking Status: Former smoker quit date: 11/10/17 alcohol intake: current alcohol intake frequency: 3 or more drinks per day Alcohol type: hard liquor substance use type: does not use ROS ROS ED Constitutional Constitutional ED: Reports systems reviewed and no addt'l complaints, except as documented; Denies body ache(s), change in weight or chills Eyes Eyes: Denies acute decrease in peripheral vision, change in vision, double vision or loss of vision ENT ENT ED: Reports none; Denies ear pain, lip swelling, loss taste/smell, neck pain, otalgia or sore throat Cardiovascular Cardiovascular: Reports none, dyspnea and dyspnea on exertion; Denies abdominal pain, chest pain with activity, leg edema, lightheadedness, palpitations, rapid heart rate or syncope Respiratory/Chest Respiratory/Chest: Reports none, cough, dry cough, dyspnea, shortness of breath at rest and shortness of breath with exertion; Denies change in mental status or hemoptysis Gastrointestinal Gastrointestinal: Reports none; Denies abdominal pain, change in stool character, diarrhea, hematemesis, hematochezia, melena, rectal bleeding or vomiting Genitourinary Genitourinary ED: Reports none; Denies abdominal discomfort, anuria, dysuria, genital pain or polyuria Musculoskeletal Musculoskeletal: Reports none; Denies arthralgias, back pain, difficulty walking, extremity pain, muscle weakness or myalgias Integumentary Reports none; Denies abscess or rash Neurologic Neurologic: Reports none; Denies abnormal gait, confusion, focal weakness, frequent falls, headache(s), loss of vision, numbness, paresthesias, radicular pain, vertigo or weakness Psychiatric Psychiatric: Reports systems reviewed and no addt'l complaints, except as documented and none; Denies behavioral changes, confusion, difficulty concentrating, hallucinations, suicidal ideation, tactile hallucinations or visual hallucinations Endocrine Endocrinology: Denies none, cold intolerance, excessive sweating, fatigue or heat intolerance Hematologic/Lymphatic Hematologic/Lymphatic: Reports none; Denies anemia, easy bleeding or easy bruising Allergic/Immunologic Allergic/Immunologic ED: Denies as per HPI, none, lip swelling, mouth swelling, throat swelling, tongue swelling or hives EXAM Physical Exam Const Vital Signs: 12/28/20 10:28 12/28/20 11:38 12/28/20 12:15 Temperature 98 F Temperature Source Temporal Pulse Rate 90 94 97 Respiratory Rate 20 H 20 H 32 H Respiratory Effort Respiratory Pattern Normal Blood Pressure 178/86 H 140/91 H Blood Pressure Mean 116 107 Pulse Ox 97 100 Oxygen Delivery Method Nasal Cannula Nasal Cannula Oxygen Flow Rate (L/min) 2.5 2 12/28/20 12:21 12/28/20 12:49 12/28/20 13:18 Temperature Temperature Source Pulse Rate 155 H 149 H Respiratory Rate 24 H 27 H Respiratory Effort Short of Breath Respiratory Pattern Blood Pressure 152/85 H 131/84 H Blood Pressure Mean 107 99 Pulse Ox 98 96 Oxygen Delivery Method Nasal Cannula Nasal Cannula Oxygen Flow Rate (L/min) 2 2 12/28/20 13:50 12/28/20 13:54 12/28/20 14:00 Temperature Temperature Source Pulse Rate 148 H 149 H Respiratory Rate 22 H 24 H Respiratory Effort Respiratory Pattern Blood Pressure 134/94 H Blood Pressure Mean 107 Pulse Ox 89 94 95 Oxygen Delivery Method Room Air Nasal Cannula Ambu-Bag Oxygen Flow Rate (L/min) 4 4 2 12/28/20 14:12 12/28/20 14:26 Temperature Temperature Source Pulse Rate 148 H 144 H Respiratory Rate 24 H 21 H Respiratory Effort Respiratory Pattern Blood Pressure 134/94 H 147/99 H Blood Pressure Mean 107 115 Pulse Ox 94 95 Oxygen Delivery Method Nasal Cannula Nasal Cannula Oxygen Flow Rate (L/min) 4 5 Positive well nourished and well developed General Appearance ED: well developed and NAD HEENT Reports TM's clear and moist mucous membranes normocephalic and atraumatic; Negative for trauma or tenderness Tympanic Membrane ED: Yes TM's clear Eyes PERRL and EOMs intact bilaterally General Eye ED: Negative for pale conjunctiva or scleral icterus Neck no lymphadenopathy, supple and no JVD General: Negative for tenderness Chest Wall inspection of chest normal and palpation of chest normal Chest: Negative for tenderness Resp normal respiratory effort Resp Narrative: Patient with some faint expiratory wheezes noted bilaterally. No accessory muscle use or retractions. She does have a mild tachypnea. Effort and Inspection: able to speak in complete sentences; Negative for respiratory distress or pain with movement Auscultation: wheezes; Negative for rhonchi or diminished lung sounds Cardio regular rate, regular rhythm, S1 normal heart sound, S2 normal heart sound and no murmurs Peripheral Pulses: pulses 2+ throughout GI normal to inspection, nondistended, normoactive bowel sounds, soft to palpation, non-tender, non-distended and no masses Back/Spine no CVA tenderness and no thoracic nor lumbar tenderness Extremity normal to inspection General Extremety ED: Negative for edema General Extremity: Negative for edema Neuro oriented x3, CN's II-XII intact bilaterally, no sensory deficits noted and gait normal Sensorium / Orientation: awake, alert, oriented to person, oriented to place and oriented to time Motor Exam: strength 5/5 throughout and strength abnormal Psych mental status grossly normal Skin no rashes or lesions noted and no wounds MDM MDM Lab Data Labs: Laboratory Results - last 24 hr 12/28/20 12/28/20 12/28/20 10:35 10:35 10:35 WBC 11.3 H RBC 4.09 L Hgb 12.3 Hct 38.0 MCV 92.9 MCH 30.1 MCHC 32.4 RDW Std Deviation 49.1 H RDW Coeff of Leighton 14.6 Plt Count 168 MPV 9.8 Immature Gran % (Auto) 0.700 Neut % (Auto) 84.2 H Lymph % (Auto) 4.6 L Day % (Auto) 8.9 Eos % (Auto) 1.2 Baso % (Auto) 0.4 Absolute Neuts (auto) 9.5 H Absolute Lymphs (auto) 0.52 L Nucleated RBC % 0 Platelet Estimate ADEQUATE D-Dimer Quant (PE/DVT) 0.64 H* Sodium 136 Potassium 3.8 Chloride 105 Carbon Dioxide 23.0 Anion Gap 8 BUN 18 Creatinine 1.04 H Estim Creat Clear Calc 61.53 Est GFR (MDRD) Af Amer 72 Est GFR (MDRD) Non-Af 59 L BUN/Creatinine Ratio 17.3 Glucose 113 H Calcium 9.3 Troponin I < 0.015 Radiography Diagnostic Testing: Radiology Impression Chest X-Ray 12/28/20 11:24 IMPRESSION: Cardiomegaly. Findings suggestive of a large hiatal hernia. Electronically Signed: George Kaplan MD at 12:05 EDT , Service support , Chest CTA 12/28/20 12:19 IMPRESSION: No evidence of pulmonary embolism. Stable linear scarring in the left upper lobe. Large hiatal hernia. Stable small pericardial effusion. Electronically Signed: George Kaplan MD at 14:46 EDT , Service support , Critical Care Time Critical Care Time: Yes Critical care time (excluding procedures): 30-74 minutes Discharge Plan Triage Chief Complaint: Chest Pain ED Provider: aDnn Madrigal Dx/Rx/DC Orders Clinical Impression: Atrial fibrillation with rapid ventricular response, Dyspnea, Chest pain in adult Primary Care Provider: Didier Watkins Disposition Disposition: Acute Care Hospital [facility]
[2020-12-28 10:50] LABS: Absolute Lymphocyte Count 0.52 X10^3/uL (0.83-4.51); Absolute Neutrophil Count 9.5 X10^3/uL (2.0-7.7); Basophil# 0.05 X10^3/uL; Basophil% 0.4 % (0-1); Eosinophil# 0.14 X10^3/uL; Eosinophils% 1.2 % (0-5); Hemoglobin 12.3 g/dL (12.0-15.0); Lymphocyte # 0.52 X10^3/ul (0.83-4.51); Lymphocyte % 4.6 % (19-41); Mean Corp Hgb Conc 32.4 g/dL (32-36); Mean Corpuscular Hgb 30.1 pg (27.0-32.0); Mean Corpuscular Volume 92.9 fL (81-99); Mean Platelet Vol. 9.8 fl (6.2-12.0); Monocyte# 1.01 X10^3/uL; Monocyte% 8.9 % (0-10); NRBC Flagged by Analyzer 0 % (0-5); Neutrophil # 9.53 X10^3/uL (2.7-7.7); Neutrophil % 84.2 % (47-70); POSITIVE DIFFERENTIAL YES; Platelet Count 168 K/mm3 (150-450); RBC Distribution Width CV 14.6 % (11.6-14.6); RBC Distribution Width SD 49.1 fl (35.1-43.9); Red Blood Count 4.09 M/mm3 (4.2-5.4); White Blood Count 11.3 K/mm3 (4.4-11.0)
[2020-12-28 10:52] LABS: Differential Indicated SCAN CRITERIA MET
[2020-12-28 11:01] LABS: D-Dimer Quantitative (DVT/PE) 0.64 FEU/ug/m (0.27-0.49)
[2020-12-28 11:03] LABS: Anion Gap 8 (5-15); BUN 18 mg/dL (7-18); BUN/Creat Ratio 17.3 RATIO (10-20); Calcium,Total 9.3 mg/dL (8.5-10.1); Chloride 105 mmol/L (98-107); Creatinine, Serum 1.04 mg/dL (0.55-1.02); EST Glomerular Filtration Rate 59 mL/min (>60); Est Glom Filt Rate - Afr Amer 72 mL/min (>60); Estimated Creatinine Clearance 61.53 ml/min; Glucose 113 mg/dL (74-106); Potassium 3.8 mmol/L (3.5-5.1); Sodium Level 136 mmol/L (136-145)
[2020-12-28 11:14] LABS: Platelet Estimate ADEQUATE (ADEQ)
--- NOTE | 2020-12-28 11:24 | RAD_ITS ---
STUDY: X-RAY CHEST REASON FOR EXAM: Female, 50 years old. Dyspnea TECHNIQUE: Single AP portable view of the chest. COMPARISON: Comparison is made with prior study dated 06/12/2020. FINDINGS: EKG electrode are seen. The lungs are clear and expanded. Stable blunting of the left costophrenic angle. There is severe cardiac enlargement. Normal mediastinum and mayra. Normal visualized pulmonary arteries. Normal visualized aortic arch and descending thoracic aorta. Normal visualized thoracic spine. Normal visualized ribs, clavicles, and shoulders. Findings suggestive of a large hiatal hernia. RAD/Chest 1 View (Portable) IMPRESSION: Cardiomegaly. Findings suggestive of a large hiatal hernia. Electronically Signed: George Kaplan MD at 12:05 EDT , Service support ,
[2020-12-28] MEDS: Ipratropium/Albuterol Sulfate 3 ML AMPUL.NEB INHALATION ×2 (11:38→20:56)
[2020-12-28] MEDS: 0.9% Normal Saline 1,000 ML 150 ML IV (12:13)
[2020-12-28] MEDS: MethylPREDNISolone 125 MG/2 ML Vial 60 MG IV (12:13)
--- NOTE | 2020-12-28 12:19 | CT_ITS ---
STUDY: CTA CHEST REASON FOR EXAM: Female, 50 years old. Dyspnea. COPD. RADIATION DOSAGE (If Supplied By Facility): CTDIvol = ( 13.76 ) mGy, DLP = ( 546.51 ) mGycm TECHNIQUE: The examination was performed with the intravenous administration of IV 100mL [id number]-[id number]. Post-processing of the angiographic images was performed, with multiplanar reformation and 3D reconstruction. Individualized dose optimization techniques were used for this CT. COMPARISON: Comparison is made with prior study dated 01/07/2020. FINDINGS: Normal enhancement of the main pulmonary artery and right and left pulmonary arteries. Normal enhancement of the bilateral peripheral pulmonary arteries. There is no demonstrated pulmonary embolism. Borderline dilatation of the pulmonary artery suggestive of possible pulmonary hypertension. Normal thoracic aorta and visualized great vessels. There is no demonstrated aortic dissection. Small pericardial effusion. This is more prominent along the right cardiac border. This is unchanged. Normal mediastinum. Normal hilar regions. Normal visualized trachea and bronchi. The lungs are well expanded. Stable area of linear scarring in the anterior aspect of the left upper lobe. Normal pleura. Normal chest wall structures. There are degenerative changes of thoracic spine. Diffuse fatty infiltration of the liver. Large hiatal hernia. CT/CTA Chest W/WO Contrast IMPRESSION: No evidence of pulmonary embolism. Stable linear scarring in the left upper lobe. Large hiatal hernia. Stable small pericardial effusion. Electronically Signed: George Kaplan MD at 14:46 EDT , Service support ,
[2020-12-28] MEDS: Ondansetron 4 MG/2 ML Vial IV (12:46)
[2020-12-28] MEDS: Morphine 4 MG/ML Syringe IV (12:46)
--- NOTE | 2020-12-28 12:47 | EKG12_ITS ---
Test Reason : REPEAT Blood Pressure : / mmHG Vent. Rate : 169 BPM Atrial Rate : 174 BPM P-R Int : 000 ms QRS Dur : 074 ms QT Int : 296 ms P-R-T Axes : 000 063 -16 degrees QTc Int : 496 ms Atrial fibrillation Nonspecific T wave abnormality Abnormal ECG Confirmed by ANTONIO DIAZ, SARAI ([id number]), editorial director SHERYL PRAJAPATI ([id number]) on 01/01/2021 10:11:12 AM Referred By: VIGNESH Confirmed By:SARAI ALVAREZ MD
[2020-12-28] MEDS: dilTIAZem 25 MG/5 ML Vial 20 MG IV BOLUS (13:09)
[2020-12-28] MEDS: HYDROmorphone 1 MG/ML Syringe IV ×2 (13:19→23:52)
[2020-12-28] MEDS: dilTIAZem 25 MG/5 ML Vial IV BOLUS (13:52)
--- NOTE | 2020-12-28 14:15 | ED.RN ---
notified of no change in HR after cardizem bolus and first 15 mins on gtt. Ok to increase gtt to 10.
--- NOTE | 2020-12-28 15:41 | PCM.HP.STD ---
Documented by User: Andi BREAUX 12/28/20 16:28 HPI - General General Date of Admission: 12/28/20 HPI Narrative Patient is a 50-year-old female presents to the ED on 12/28/2020 with a chief complaint of nonexertional chest pain and shortness of breath. Patient describes the chest pain as a crushing retrosternal chest pain with tightness. Patient reports a 3-day history of complaints and previously thought she was having a panic attack or a COPD flareup. Patient states that she took her inhalers for her COPD and initially did improve her symptoms, however her symptoms resumed this morning and is no longer responsive to medications. Patient does report a recent history of bronchitis, for which she was prescribed azithromycin and completed the course. Patient endorses feeling like she has a mild fever, but denies chills, N/V/D or problems urinating. While in the ED, EKG demonstrated atrial fibrillation with rapid ventricular response, and was initiated on diltiazem and amiodarone for rate control. Past medical history is significant for obstructive sleep apnea, COPD, anxiety and pulmonary hypertension. CBC was mildly elevated at 11.3 with 84.2% neutrophils. Coagulation studies revealed a mildly elevated D-dimer at 0.64, CT- A demonstrated no evidence of pulmonary embolism or arterial dissection. BMP unremarkable. Initial troponin not elevated. Patient will be admitted to PCU for cardiac monitoring and echocardiogram in the morning. PFSH Medical History Alcohol abuse Allergic rhinitis Anemia Anxiety COPD (chronic obstructive pulmonary disease) Depression Essential (primary) hypertension Former smoker GERD (gastroesophageal reflux disease) Hiatal hernia History of back problems HLD (hyperlipidemia) Hyperthyroidism Iron deficiency Migraines Morbid obesity with BMI of 40.0-44.9, adult Obstructive sleep apnea Pulmonary arterial hypertension Pulmonary embolism (04/26/16) Tobacco user Home Medications bumetanide 0.5 mg tablet 0.5 mg PO DAILY 06/18/19 [History Last Taken 12/26/20] cyclobenzaprine 5 mg tablet 5 mg PO TID PRN PRN 06/18/19 [History Last Taken 12/25/20] fluticasone fur. 100 mcg-umeclid 62.5 mcg-vilant 25 mcg inhalat.powder 1 inh INHALATION DAILY 06/18/19 [History Last Taken 12/27/20] metoprolol tartrate 50 mg tablet 50 mg PO DAILY tab 10/18/19 [History Last Taken 12/27/20] nortriptyline 50 mg capsule 50 mg PO QHS 06/18/19 [History Last Taken 12/27/20] rosuvastatin 5 mg tablet 5 mg PO DAILY 06/18/19 [History Last Taken 12/27/20] sildenafil 25 mg tablet 25 mg PO TID 06/18/19 [History Last Taken 12/27/20] albuterol sulfate 1 - 2 puff IH Q4H PRN PRN 09/22/19 [History Last Taken 12/26/20] acetaminophen 1,000 mg PO DAILY PRN PRN 08/01/20 [History Last Taken 12/28/20 07:55] cholecalciferol (vitamin D3) 400 unit PO DAILY 08/01/20 [History Last Taken 12/27/20] esomeprazole magnesium 40 mg PO DAILY 08/01/20 [History Last Taken 12/27/20] folic acid 1 mg PO DAILY 08/01/20 [History Last Taken 12/27/20] levothyroxine 25 mcg PO DAILY 08/01/20 [History Last Taken 12/27/20] albuterol sulfate 2.5 mg INHALATION Q6H PRN PRN 12/28/20 [History Last Taken 12/28/20] montelukast [Singulair] 10 mg PO DAILY 12/28/20 [History Last Taken 12/27/20] multivitamin 1 tab PO DAILY MDD SUPPLEMEMT 12/28/20 [History Last Taken 12/27/20] Allergy/AdvReac Type Severity Reaction Status Date / Time tramadol Allergy Intermediate GI upset Verified 12/28/20 10:31 doxycycline Allergy Hives Verified 12/28/20 10:31 hydrocodone [From Vicodin] AdvReac Itching Verified 12/28/20 10:31 Family History (Updated 06/18/19 @ 09:17 by Alaina Covarrubias) Mother Breast cancer Cancer lung cancer Father Cancer lung cancer Hypertension High cholesterol Surgical History (Updated 12/28/20 @ 15:40 by Claudia Virk) H/O repair of rotator cuff History of History of cholecystectomy History of hysterectomy History of nasal surgery Social History (Updated 06/18/19 @ 09:[address] Anatoliy Gill MD) Smoking Status: Former smoker quit date: 11/10/17 alcohol intake: current alcohol intake frequency: 3 or more drinks per day Alcohol type: hard liquor substance use type: does not use ROS Constitutional Constitutional: Reports fever(s) Eyes Eyes: Denies blurry vision, change in eye color, change in vision, discharge from eye(s), double vision, erythema, eye pain, loss of vision or other ENT HEENT: Denies abnormal hearing, dysphagia, ear pain, epistaxis, headache(s), hearing loss, nasal congestion, nasal discharge, post nasal drip, sinus pressure, sore throat or other Cardiovascular Cardiovascular: Reports chest pain, palpitations and rapid heart rate Respiratory/Chest Respiratory/Chest: Reports cough, dyspnea and productive cough Gastrointestinal Gastrointestinal: Denies abdominal pain, coffee ground emesis, constipation, diarrhea, dyspepsia, hematemesis, hematochezia, loose stools, melena, nausea, vomiting or other Genitourinary Genitourinary: Denies burning urination, difficulty urinating, dysuria, hematuria, nocturia, urinary frequency, urinary hesitancy, urinary incontinence, urinary urgency or other Musculoskeletal Musculoskeletal: Denies arthralgias, back pain, joint pain, joint stiffness, joint swelling, myalgias, neck pain or other Neurologic Neurologic: Denies abnormal gait, abnormal speech, confusion, disequilibrium, dizziness, focal weakness, headache(s), numbness, paresthesias, seizure-like activity, seizures, syncope, tingling, tremor(s) or other Psychiatric Psychiatric: Reports anxiety and depression Endocrine Endocrinology: Denies change in body appearance, cold intolerance, excessive sweating, heat intolerance, polydipsia, polyuria or other Hematologic/Lymphatic Hematologic/Lymphatic: Denies anemia, easy bleeding, easy bruising, lymphadenopathy or other Allergic/Immunologic Allergic/Immunologic: Denies rhinitis, hives, eczemia, asthma or other Vital Signs Vital Signs Vital Signs: 12/28/20 10:28 12/28/20 11:38 12/28/20 12:15 Temperature 98 F Temperature Source Temporal Pulse Rate 90 94 97 Respiratory Rate 20 H 20 H 32 H Respiratory Effort Respiratory Pattern Normal Blood Pressure 178/86 H 140/91 H Blood Pressure Mean 116 107 Pulse Ox 97 100 Oxygen Delivery Method Nasal Cannula Nasal Cannula Oxygen Flow Rate (L/min) 2.5 2 12/28/20 12:21 12/28/20 12:49 12/28/20 13:18 Temperature Temperature Source Pulse Rate 155 H 149 H Respiratory Rate 24 H 27 H Respiratory Effort Short of Breath Respiratory Pattern Blood Pressure 152/85 H 131/84 H Blood Pressure Mean 107 99 Pulse Ox 98 96 Oxygen Delivery Method Nasal Cannula Nasal Cannula Oxygen Flow Rate (L/min) 2 2 12/28/20 13:50 12/28/20 13:54 12/28/20 14:00 Temperature Temperature Source Pulse Rate 148 H 149 H Respiratory Rate 22 H 24 H Respiratory Effort Respiratory Pattern Blood Pressure 134/94 H Blood Pressure Mean 107 Pulse Ox 89 94 95 Oxygen Delivery Method Room Air Nasal Cannula Ambu-Bag Oxygen Flow Rate (L/min) 4 4 2 12/28/20 14:12 12/28/20 14:26 12/28/20 15:13 Temperature 98 F Temperature Source Temporal Pulse Rate 148 H 144 H 146 H Respiratory Rate 24 H 21 H 23 H Respiratory Effort Respiratory Pattern Blood Pressure 134/94 H 147/99 H 150/99 H Blood Pressure Mean 107 115 116 Pulse Ox 94 95 97 Oxygen Delivery Method Nasal Cannula Nasal Cannula Nasal Cannula Oxygen Flow Rate (L/min) 4 5 Physical Exam Narrative Patient is a 50-year-old female resting in bed, alert and oriented x3. Patient denies any current chest pain or shortness of breath however does report feeling anxious. Const alert and oriented x3 HEENT normocephalic, head/scalp atraumatic and hearing grossly normal bilaterally Eyes EOMs intact bilaterally Neck no lymphadenopathy, supple and no JVD Resp clear to auscultation bilaterally Cardio Cardio Narrative: Irregular rhythm w/ tachycardia. Peripheral Pulses: pulses 2+ throughout GI normal to inspection, nondistended, normoactive bowel sounds, soft to palpation and non-tender Extremity normal to inspection, full ROM and no clubbing, cyanosis or edema Peripheral Pulses: Yes pulses 2+ throughout Skin no rashes or lesions noted and no wounds Neuro CN's II-XII intact bilaterally Psych Mood & Affect: anxious Lab / Micro Data Result Diagrams: 12/28/20 10:35 12/28/20 10:35 Labs: Laboratory Results - last 24 hr 12/28/20 12/28/20 12/28/20 10:35 10:35 10:35 WBC 11.3 H RBC 4.09 L Hgb 12.3 Hct 38.0 MCV 92.9 MCH 30.1 MCHC 32.4 RDW Std Deviation 49.1 H RDW Coeff of [place] 14.6 Plt Count 168 MPV 9.8 Immature Gran % (Auto) 0.700 Neut % (Auto) 84.2 H Lymph % (Auto) 4.6 L [place] % (Auto) 8.9 Eos % (Auto) 1.2 Baso % (Auto) 0.4 Absolute Neuts (auto) 9.5 H Absolute Lymphs (auto) 0.52 L Nucleated RBC % 0 Platelet Estimate ADEQUATE D-Dimer Quant (PE/DVT) 0.64 H* Sodium 136 Potassium 3.8 Chloride 105 Carbon Dioxide 23.0 Anion Gap 8 BUN 18 Creatinine 1.04 H Estim Creat Clear Calc 61.53 Est GFR (MDRD) Af Amer 72 Est GFR (MDRD) Non-Af 59 L BUN/Creatinine Ratio 17.3 Glucose 113 H Calcium 9.3 Troponin I < 0.015 Micro: Microbiology 12/28/20 12:16 SARS-CoV-2 Antigen (Rapid) - Final Nasal Secretion Radiology Impression Chest X-Ray 12/28/20 11:24 IMPRESSION: Cardiomegaly. Findings suggestive of a large hiatal hernia. Electronically Signed: George Kaplan MD at 12:05 EDT , Service support , Chest CTA 12/28/20 12:19 IMPRESSION: No evidence of pulmonary embolism. Stable linear scarring in the left upper lobe. Large hiatal hernia. Stable small pericardial effusion. Electronically Signed: George Kaplan MD at 14:46 EDT , Service support , Assessment & Plan Assessment/Plan (1) Atrial fibrillation with rapid ventricular response: Status: Acute Code(s): I48.91 - Unspecified atrial fibrillation Plan: EKG in the ED demonstrated atrial fibrillation with rapid ventricular response, at a rate of about 145 bpm. [id number] score 2, not on home anticoagulation. Diltiazem and amiodarone initiated in the ED. Plan; admit to PCU for cardiac monitoring, continue amiodarone infusion rate/rhythm control, echocardiogram in the a.m, heparin intiated on admission. (2) Dyspnea: Status: Acute Code(s): R06.00 - Dyspnea, unspecified Plan: Chest x-ray demonstrates mild cardiomegaly and findings consistent with large hiatal hernia. No evidence of acute pulmonary pathology. D-dimer elevated in the ED at 0.64, CT?a demonstrated no evidence of pulmonary embolism or arterial dissection. Plan; same as above. (3) Chest pain in adult: Status: Acute Code(s): R07.9 - Chest pain, unspecified Plan: Troponins not currently elevated. Plan; continue to trend troponins, TSH ordered, magnesium ordered. same as above. (4) Pulmonary hypertension: Status: Acute Code(s): I27.20 - Pulmonary hypertension, unspecified Plan: Continue sildenafil (5) Essential (primary) hypertension: Status: Chronic Code(s): I10 - Essential (primary) hypertension Plan: Stable. Plan; hydralazine as needed, continue metoprolol. (6) Morbid obesity with BMI of 40.0-44.9, adult: Status: Chronic Code(s): E66.01 - Morbid (severe) obesity due to excess calories; Z68.41 - Body mass index [BMI]40.0-44.9, adult Plan: Weight loss advised. (7) GERD (gastroesophageal reflux disease): Status: Chronic Code(s): K21.9 - Gastro-esophageal reflux disease without esophagitis Qualifiers: Esophagitis presence: esophagitis presence not specified Qualified Code(s): K21.9 - Gastro-esophageal reflux disease without esophagitis Plan: Continue esomeprazole. (8) COPD (chronic obstructive pulmonary disease): Status: Chronic Code(s): J44.9 - Chronic obstructive pulmonary disease, unspecified Plan: Chest x-ray demonstrates no acute pulmonary pathology. Plan; continue albuterol inhalers, Singulair, Trelegy Ellipta and bumetanide. (9) Obstructive sleep apnea: Status: Chronic Code(s): G47.33 - Obstructive sleep apnea (adult) (pediatric) Plan: Continue CPAP at night. Procedure Criteria COVID Risk Discussion: Both doses of Pfizer vaccine received. Documented by User: Dr. Merari Borges MD 12/28/20 16:56 HPI - General General Date of Admission: 12/28/20 PFSH Medical History Alcohol abuse Allergic rhinitis Anemia Anxiety COPD (chronic obstructive pulmonary disease) Depression Essential (primary) hypertension Former smoker GERD (gastroesophageal reflux disease) Hiatal hernia History of back problems HLD (hyperlipidemia) Hyperthyroidism Iron deficiency Migraines Morbid obesity with BMI of 40.0-44.9, adult Obstructive sleep apnea Pulmonary arterial hypertension Pulmonary embolism (04/26/16) Tobacco user Home Medications bumetanide 0.5 mg tablet 0.5 mg PO DAILY 06/18/19 [History Last Taken 12/26/20] cyclobenzaprine 5 mg tablet 5 mg PO TID PRN PRN 06/18/19 [History Last Taken 12/25/20] fluticasone fur. 100 mcg-umeclid 62.5 mcg-vilant 25 mcg inhalat.powder 1 inh INHALATION DAILY 06/18/19 [History Last Taken 12/27/20] metoprolol tartrate 50 mg tablet 50 mg PO DAILY tab 06/18/19 [History Last Taken 12/27/20] nortriptyline 50 mg capsule 50 mg PO QHS 06/18/19 [History Last Taken 12/27/20] rosuvastatin 5 mg tablet 5 mg PO DAILY 06/18/19 [History Last Taken 12/27/20] sildenafil 25 mg tablet 25 mg PO TID 06/18/19 [History Last Taken 12/27/20] albuterol sulfate 1 - 2 puff IH Q4H PRN PRN 09/22/19 [History Last Taken 12/26/20] acetaminophen 1,000 mg PO DAILY PRN PRN 08/01/20 [History Last Taken 12/28/20 07:55] cholecalciferol (vitamin D3) 400 unit PO DAILY 08/01/20 [History Last Taken 12/27/20] esomeprazole magnesium 40 mg PO DAILY 08/01/20 [History Last Taken 12/27/20] folic acid 1 mg PO DAILY 08/01/20 [History Last Taken 12/27/20] levothyroxine 25 mcg PO DAILY 08/01/20 [History Last Taken 12/27/20] albuterol sulfate 2.5 mg INHALATION Q6H PRN PRN 12/28/20 [History Last Taken 12/28/20] montelukast [Singulair] 10 mg PO DAILY 12/28/20 [History Last Taken 12/27/20] multivitamin 1 tab PO DAILY MDD SUPPLEMEMT 12/28/20 [History Last Taken 12/27/20] Allergy/AdvReac Type Severity Reaction Status Date / Time tramadol Allergy Intermediate GI upset Verified 12/28/20 10:31 doxycycline Allergy Hives Verified 12/28/20 10:31 hydrocodone [From Vicodin] AdvReac Itching Verified 12/28/20 10:31 Family History (Updated 06/18/19 @ 09:17 by Alaina Covarrubias) Mother Breast cancer Cancer lung cancer Father Cancer lung cancer Hypertension High cholesterol Surgical History (Updated 12/28/20 @ 15:40 by Claudia Virk) H/O repair of rotator cuff History of History of cholecystectomy History of hysterectomy History of nasal surgery Social History (Updated 06/18/19 @ 09:[address] Anatoliy Gill MD) Smoking Status: Former smoker quit date: 11/10/17 alcohol intake: current alcohol intake frequency: 3 or more drinks per day Alcohol type: hard liquor substance use type: does not use Lab / Micro Data Result Diagrams: 12/28/20 10:35 12/28/20 10:35 Assessment & Plan Assessment/Plan (1) Atrial fibrillation with RVR: Status: Acute Code(s): I48.91 - Unspecified atrial fibrillation Plan: Hospitalist note: I am seeing this patient in conjunction with Andi Buenrostro . I independently seen and examined the patient. History and physical, laboratory data and imaging studies reviewed. Patient presented to the emergency room because of chest pain or shortness of breath. Her symptoms started 2 days ago with intermittent chest pain, nonexertional, associated with shortness of breath as well as palpitation and without aggravating or relieving factors. Initially, patient told that she may have a panic attack or COPD flareup. She used her inhalers and initially felt better. Her symptoms recur and today, she decided to come to the emergency department for evaluation. Initially in the emergency department, her vital signs were stable, heart rate was stable and she was afebrile. While in the ED, patient developed A. fib with RVR, heart rate went up to 150s. She was given 2 doses of IV Cardizem bolus and her heart rate remained in the 140s. She was started on IV Cardizem drip but again heart rate remained elevated. Cardio recommended to start patient on IV amiodarone drip. Currently, she remains in A. fib with RVR, heart rate still in the 140s. Blood pressure stable. EKG revealed A. fib with RVR, no acute ischemic changes. Routine blood work was remarkable for mild leukocytosis, otherwise normal. D-dimer was elevated for which CTA chest done and showed no PE or dissection. Chest x-ray revealed large hiatal hernia, no other acute findings. Patient is being admitted for new onset A. fib with RVR for evaluation and treatment. - Physical Exam General: Alert, Oriented x3, Cooperative, minimally short of breath. HEENT: Atraumatic, PERRLA, EOMI. Neck: Supple, No JVD, Negative Carotid Bruits, Trachea Midline, Thyroid Normal. Lungs: Diminished breath sounds bilateral, otherwise clear, No rhonchi, No wheeze, No rales. Cardiovascular: irreegular rate and rhythm, Normal S1, Normal S2, PMI Normal, tachycardia. Abdomen: Bowel Sounds Present, Soft, Non Tender, Non-Distended, No Hepato-splenomegaly, obese. Extremities: No clubbing, No cyanosis, No edema Skin: No rashes, No breakdown Neurological: Cranial nerves are intact, neuro grossly intact Assessment and plan: #1 new onset A. fib with RVR: Although patient received IV Cardizem bolus and IV Cardizem drip, she remains in A. fib with RVR and heart rate of 150s. She was started on IV amiodarone drip in the ED. Plan: Admit to PCU, cardiac monitoring, serial cardiac enzymes, continue IV amiodarone drip, start IV heparin drip, check TSH, serum magnesium, cardiology consult, 2D echocardiogram, repeat CBC and BMP tomorrow morning. #2 chest pain: Likely due to A. fib with RVR. EKG without acute ischemic changes. Troponin was negative. Plan to treat underlying A. fib with RVR, cardiac monitoring, serial cardiac enzymes, 2D echocardiogram as above. #3 other chronic medical problems: Stable, continue current medications as above. This note was generated with [employer] dictation software. It may contain incorrect words, spelling, and punctuation that were not noted in checking the note before signing. Inpatient E&M: 83833 Init Hosp L3
[2020-12-28] MEDS: Heparin Injection (Vial) 5,000 UNIT/ML VIAL 7500 UNIT IV (16:04)
[2020-12-28] MEDS: HEPARIN/D5w 25,000 UNITS 25,000 UNITS/250 ML IV.SOLN. 14 UNITS IV (16:11)
[2020-12-28] MEDS: Amiodarone 360 MG in Dextrose 5% Viaflo Bag 192.8 ML 33.3 MG CONT INF (16:32)
[2020-12-28 16:53] LABS: International Normalized Ratio 1.4; Prothrombin Time (Protime)PT. 16.5 SECONDS (11.7-14.9)
[2020-12-28 17:03] LABS: Partial Thromboplast Time 136.7 Seconds (24.1-36.2)
--- NOTE | 2020-12-28 17:23 | EKG12_ITS ---
Test Reason : CP Blood Pressure : / mmHG Vent. Rate : 082 BPM Atrial Rate : 082 BPM P-R Int : 174 ms QRS Dur : 082 ms QT Int : 376 ms P-R-T Axes : 057 055 011 degrees QTc Int : 439 ms Normal sinus rhythm Normal ECG Confirmed by ANTONIO DIAZ, SARAI ([id number]), editor index SHERYL PRAJAPATI ([id number]) on 01/01/2021 12:33:31 PM Referred By: CRISTINA Confirmed By:SARAI ALVAREZ MD
--- NOTE | 2020-12-28 17:29 | CON.PCM.CA_ITS ---
Assessment & Plan Assessment/Plan (1) COPD (chronic obstructive pulmonary disease): Status: Chronic Code(s): J44.9 - Chronic obstructive pulmonary disease, unspecified Qualifiers: COPD type: unspecified COPD Qualified Code(s): J44.9 - Chronic obstructive pulmonary disease, unspecified (2) Obstructive sleep apnea: Status: Chronic Code(s): G47.33 - Obstructive sleep apnea (adult) (pediatric) (3) Pulmonary hypertension: Status: Acute Code(s): I27.20 - Pulmonary hypertension, unspecified (4) GERD (gastroesophageal reflux disease): Status: Chronic Code(s): K21.9 - Gastro-esophageal reflux disease without esophagitis Qualifiers: Esophagitis presence: esophagitis presence not specified Qualified Code(s): K21.9 - Gastro-esophageal reflux disease without esophagitis (5) Atrial flutter: Status: Acute Code(s): I48.92 - Unspecified atrial flutter Qualifiers: Atrial flutter type: typical Qualified Code(s): I48.3 - Typical atrial flutter Plan: 50-year-old patient tented to ER with palpitation and symptoms of chest pain or shortness of breath Patient has underlying obstructive sleep apnea, chronic obstructive pulmonary disease, and history of pulmonary hypertension. 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 Currently patient is started on amiodarone and IV heparin. Plan and recommendations; 1. We will continue current treatment 2. Echocardiogram to evaluate LV function 3. Patient has underlying problems with obstructive sleep apnea and COPD. Repeat EKG showed atrial flutter with 2-1 AV block We will keep n.p.o. from midnight if she did not respond to amiodarone IV we will plan for MABEL guided cardioversion. HPI Consult Data Date of Consult: 12/28/20 HPI Narrative HPI Narrative: NEYMAR SHEPHERD, is a 50 F who presents PFS Medical History Alcohol abuse Allergic rhinitis Anemia Anxiety COPD (chronic obstructive pulmonary disease) Depression Essential (primary) hypertension Former smoker GERD (gastroesophageal reflux disease) Hiatal hernia History of back problems HLD (hyperlipidemia) Hyperthyroidism Iron deficiency Migraines Morbid obesity with BMI of 40.0-44.9, adult Obstructive sleep apnea Pulmonary arterial hypertension Pulmonary embolism (04/26/16) Tobacco user Home Medications bumetanide 0.5 mg tablet 0.5 mg PO DAILY 06/18/19 [History Last Taken 12/26/20] cyclobenzaprine 5 mg tablet 5 mg PO TID PRN PRN 06/18/19 [History Last Taken 12/25/20] fluticasone fur. 100 mcg-umeclid 62.5 mcg-vilant 25 mcg inhalat.powder 1 inh INHALATION DAILY 06/18/19 [History Last Taken 12/27/20] metoprolol tartrate 50 mg tablet 50 mg PO DAILY tab 06/18/19 [History Last Taken 12/27/20] nortriptyline 50 mg capsule 50 mg PO QHS 06/18/19 [History Last Taken 12/27/20] rosuvastatin 5 mg tablet 5 mg PO DAILY 06/18/19 [History Last Taken 12/27/20] sildenafil 25 mg tablet 25 mg PO TID 06/18/19 [History Last Taken 12/27/20] albuterol sulfate 1 - 2 puff IH Q4H PRN PRN 09/22/19 [History Last Taken 12/26/20] acetaminophen 1,000 mg PO DAILY PRN PRN 08/01/20 [History Last Taken 12/28/20 07:55] cholecalciferol (vitamin D3) 400 unit PO DAILY 08/01/20 [History Last Taken 12/27/20] esomeprazole magnesium 40 mg PO DAILY 08/01/20 [History Last Taken 12/27/20] folic acid 1 mg PO DAILY 08/01/20 [History Last Taken 12/27/20] levothyroxine 25 mcg PO DAILY 08/01/20 [History Last Taken 12/27/20] albuterol sulfate 2.5 mg INHALATION Q6H PRN PRN 12/28/20 [History Last Taken 0 12/28/20] montelukast [Singulair] 10 mg PO DAILY 12/28/20 [History Last Taken 12/27/20] multivitamin 1 tab PO DAILY MDD SUPPLEMEMT 12/28/20 [History Last Taken 12/27/20] Allergy/AdvReac Type Severity Reaction Status Date / Time tramadol Allergy Intermediate GI upset Verified 12/28/20 10:31 doxycycline Allergy Hives Verified 12/28/20 10:31 hydrocodone [From Vicodin] AdvReac Itching Verified 12/28/20 10:31 Family History Mother Breast cancer Cancer lung cancer Father Cancer lung cancer Hypertension High cholesterol Surgical History H/O repair of rotator cuff History of History of cholecystectomy History of hysterectomy History of nasal surgery Social History Smoking Status: Former smoker quit date: 11/10/17 alcohol intake: current alcohol intake frequency: 3 or more drinks per day Alcohol type: hard liquor substance use type: does not use ROS ROS Narrative 50-year-old patient, presented to the emergency department complaining of symptoms of chest pain and shortness of breath. Patient had longstanding history of COPD, obstructive sleep apnea, and she has been on home oxygen as well as CPAP. Patient is well had a history of large hiatus hernia In the ER noted she had electrocardiogram showing evidence of A. fib with RVR/atrial flutter. Tried on the different medication with Cardizem still the heart rate was fast and started on amiodarone drip. No prior history of A. fib. Constitutional Constitutional: Reports systems reviewed and no addt'l complaints, except as d ocumented and fever(s); Denies body ache(s), change in weight or chills Eyes Eyes: Denies acute decrease in peripheral vision, blurry vision, change in eye color, change in vision, discharge from eye(s), double vision, erythema, eye pain, loss of vision or other ENT HEENT: Reports none; Denies abnormal hearing, dysphagia, ear pain, epistaxis, headache(s), hearing loss, lip swelling, loss taste/smell, nasal congestion, nasal discharge, neck pain, otalgia, post nasal drip, sinus pressure, sore throat or other Cardiovascular Cardiovascular: Reports none, chest pain, dyspnea, dyspnea on exertion, palpitations and rapid heart rate; Denies abdominal pain, chest pain with activity, leg edema, lightheadedness or syncope Respiratory/Chest Respiratory/Chest: Reports none, cough, dry cough, dyspnea, productive cough, shortness of breath at rest and shortness of breath with exertion; Denies change in mental status or hemoptysis Gastrointestinal Gastrointestinal: Reports none; Denies abdominal pain, change in stool character, coffee ground emesis, constipation, diarrhea, dyspepsia, hematemesis, hematochezia, loose stools, melena, nausea, rectal bleeding, vomiting or other Genitourinary Genitourinary: Reports none; Denies abdominal discomfort, anuria, burning urination, difficulty urinating, dysuria, genital pain, hematuria, nocturia, polyuria, urinary frequency, urinary hesitancy, urinary incontinence, urinary urgency or other Musculoskeletal Musculoskeletal: Reports none; Denies arthralgias, back pain, difficulty walking, extremity pain, joint pain, joint stiffness, joint swelling, muscle weakness, myalgias, neck pain or other Integumentary Integumentary: Reports none; Denies rash Neurologic Neurologic: Reports none; Denies abnormal gait, abnormal speech, confusion, disequilibrium, dizziness, focal weakness, frequent falls, headache(s), loss of vision, numbness, paresthesias, radicular pain, seizure-like activity, seizures, syncope, tingling, tremor(s), vertigo, weakness or other Psychiatric Psychiatric: Reports systems reviewed and no addt'l complaints, except as documented, none, anxiety and depression; Denies behavioral changes, confusion, difficulty concentrating, hallucinations, suicidal ideation, tactile hallucinations or visual hallucinations Endocrine Endocrinology: Denies none, change in body appearance, cold intolerance, excessive sweating, fatigue, heat intolerance, polydipsia, polyuria or other Hematologic/Lymphatic Hematologic/Lymphatic: Reports none; Denies anemia, easy bleeding, easy bruising, lymphadenopathy or other Allergic/Immunologic Allergic/Immunologic: Denies as per HPI, none, lip swelling, rhinitis, throat swelling, tongue swelling, hives, eczemia, asthma or other Physical Exam Const alert, oriented x3, no apparent distress and healthy appearing General Appearance: other Orientation / Consciousness: awake Resp Auscultation: diminished lung sounds bilateral Cardio Cardio Narrative: Cardiac rhythm strip with A. fib with RVR GI normal to inspection, nondistended, normoactive bowel sounds, soft to palpation and non-tender Lab / Micro Data Result Diagrams: 12/28/20 10:35 12/28/20 10:35 Labs: Laboratory Results - last 24 hr 12/28/20 12/28/2021 10:35 10:35 10:35 WBC 11.3 H RBC 4.09 L Hgb 12.3 Hct 38.0 MCV 92.9 MCH 30.1 MCHC 32.4 RDW Std Deviation 49.1 H RDW Coeff of [place] 14.6 Plt Count 168 MPV 9.8 Immature Gran % (Auto) 0.700 Neut % (Auto) 84.2 H Lymph % (Auto) 4.6 L [place] % (Auto) 8.9 Eos % (Auto) 1.2 Baso % (Auto) 0.4 Absolute Neuts (auto) 9.5 H Absolute Lymphs (auto) 0.52 L Nucleated RBC % 0 Platelet Estimate ADEQUATE PT INR APTT D-Dimer Quant (PE/DVT) 0.64 H* Sodium 136 Potassium 3.8 Chloride 105 Carbon Dioxide 23.0 Anion Gap 8 BUN 18 Creatinine 1.04 H Estim Creat Clear Calc 61.53 Est GFR (MDRD) Af Amer 72 Est GFR (MDRD) Non-Af 59 L BUN/Creatinine Ratio 17.3 Glucose 113 H Calcium 9.3 Troponin I < 0.015 12/28/20 16:24 WBC RBC Hgb Hct MCV MCH MCHC RDW Std Deviation RDW Coeff of [place] Plt Count MPV Immature Gran % (Auto) Neut % (Auto) Lymph % (Auto) [place] % (Auto) Eos % (Auto) Baso % (Auto) Absolute Neuts (auto) Absolute Lymphs (auto) Nucleated RBC % Platelet Estimate PT 16.5 H INR 1.4 APTT 136.7 H* D-Dimer Quant (PE/DVT) Sodium Potassium Chloride Carbon Dioxide Anion Gap BUN Creatinine Estim Creat Clear Calc Est GFR (MDRD) Af Amer Est GFR (MDRD) Non-Af BUN/Creatinine Ratio Glucose Calcium Troponin I Micro: Microbiology 12/28/20 12:16 SARS-CoV-2 Antigen (Rapid) - Final Nasal Secretion Radiology Impression Chest X-Ray 12/28/20 11:24 IMPRESSION: Cardiomegaly. Findings suggestive of a large hiatal hernia. Electronically Signed: George Kaplan MD at 12:05 EDT , Service support , Chest CTA 12/28/20 12:19 IMPRESSION: No evidence of pulmonary embolism. Stable linear scarring in the left upper lobe. Large hiatal hernia. Stable small pericardial effusion. Electronically Signed: George Kaplan MD at 14:46 EDT , Service support ,
--- NOTE | 2020-12-28 18:02 | ECHOD_ITS ---
Reason For Study: A. fib Procedure This was a 2D Doppler, Color Flow transthoracic echocardiogram. The study was technically difficult. Exam performed in department. Left Ventricle Normal left ventricle. The estimated ejection fraction is EF 60-65% %. Right Ventricle Moderately dilated right ventricle. Moderate global right ventricular systolic dysfunction. Atria The left atrium is mildly enlarged. Mitral Valve The mitral valve is structurally normal. No prolapse or stenosis seen. Mild (1+) mitral valve insufficiency. Tricuspid Valve Normal tricuspid valve. Pulmonary artery systolic pressure is RVSP 77 mmhg mmHg. Moderate (2+) tricuspid valve insufficiency. Aortic Valve Normal aortic valve. Pulmonic Valve The pulmonic valve is not well visualized. Great Vessels Normal aortic root. Pericardium/Pleural Small pericardial effusion. MMode/2D Measurements & Calculations LVIDd: 4.3 cm IVSd: 1.3 cm Ao root diam: 3.3 cm LVIDs: 2.6 cm LVPWd: 1.2 cm RVDd: 4.5 cm FS: 38.8 % LAV(MOD-bp): 65.9 ml LA A4 area: 27.4 cm2 LA dimension(2D): 4.7 cm LAV(MOD-bp) Indexed: 30.2 ml/m2 LAV(MOD-sp2): 43.7 ml LAV(MOD-sp4): 90.5 ml RA A4 area: 23.6 cm2 Doppler Measurements & Calculations MV E max nino: 139.4 cm/sec Lat Peak E' Nino: 8.9 cm/sec Med Peak E' Nino: 6.4 cm/sec MV A max nino: 159.8 cm/sec E/E' lat: 15.7 E/E' med: 21.8 MV E/A: 0.87 MV V2 max: 183.3 cm/sec MV P1/2t max nino: 157.9 cm/sec Ao V2 max: 134.5 cm/sec MV max P.4 mmHg MV P1/2t: 77.6 msec Ao max P.2 mmHg MV V2 mean: 141.3 cm/sec MV dec slope: 596.1 cm/sec2 MV mean P.3 mmHg MVA(P1/2t): 2.8 cm2 MV V2 VTI: 38.0 cm LV V1 max: 121.5 cm/sec PA V2 max: 143.2 cm/sec TR max nino: 433.2 cm/sec LV V1 max P.9 mmHg TR max P.7 mmHg ECHO/Echo Complete Interpretation Summary Pulmonary artery systolic pressure is RVSP 77 mmhg mmHg.Severe pulmonary Hypert ension The estimated ejection fraction is EF 60-65% %. Moderate TR Small pericardial Effusion Ordering Physician: Merari Borges Referring Physician: Didier Watkins Performed By: Chantel Anthony RDCS
[2020-12-28] MEDS: 0.9% Normal Saline 1,000 ML 75 ML IV (18:27)
[2020-12-28] MEDS: Morphine 2 MG/ML Syringe IV (18:28)
[2020-12-28] MEDS: Digoxin 250 MCG Tablet PO (19:22)
[2020-12-28 20:27] LABS: Partial Thromboplast Time 86.3 Seconds (24.1-36.2)
[2020-12-28 20:34] LABS: International Normalized Ratio 1.3; Prothrombin Time (Protime)PT. 15.1 SECONDS (11.7-14.9)
--- NOTE | 2020-12-28 20:39 | EKG12_ITS ---
Test Reason : CP Blood Pressure : / mmHG Vent. Rate : 139 BPM Atrial Rate : 278 BPM P-R Int : 000 ms QRS Dur : 078 ms QT Int : 302 ms P-R-T Axes : 176 066 -07 degrees QTc Int : 459 ms Atrial flutter Nonspecific ST abnormality Abnormal ECG Confirmed by ANTONIO DIAZ, SARAI ([id number]), editorial manager SHERYL PRAJAPATI ([id number]) on 01/01/2021 12:33:45 PM Referred By: CRISTINA Confirmed By:SARAI ALVAREZ MD
[2020-12-28 20:41] LABS: Magnesium 1.7 mg/dL (1.6-2.6)
[2020-12-28] MEDS: Amiodarone 200 MG Tablet PO (21:44)
[2020-12-28] MEDS: Atorvastatin Calcium 10 MG Tablet PO (21:44)
[2020-12-28] MEDS: Nortriptyline 25 MG Capsule 50 MG PO (21:44)
[2020-12-28] MEDS: Acetaminophen 325 MG Tablet 650 MG PO (21:45)
[2020-12-28] MEDS: 0.9% Saline Lock 10 ML Syringe IV (23:53)
[2020-12-29] VITALS (15 sets, daily range): BP systolic 135–168; BP diastolic 83–108; PULSE 74–92; RESP 18–21; TEMP 36.6–36.9; O2SAT 94–99
[2020-12-29 02:54] LABS: Partial Thromboplast Time 61.7 Seconds (24.1-36.2)
[2020-12-29] MEDS: Labetalol (Prefilled) 20 MG/4 ML 10 MG IV (03:34)
[2020-12-29] MEDS: Levothyroxine 25 MCG TABLET PO (05:39)
[2020-12-29] MEDS: HYDROmorphone 1 MG/ML Syringe IV (05:40)
[2020-12-29] MEDS: 0.9% Saline Lock 10 ML Syringe IV (05:41)
[2020-12-29 06:12] LABS: Absolute Neutrophil Count 12.3 X10^3/uL (2.0-7.7); Basophil# 0.02 X10^3/uL; Basophil% 0.1 % (0-1); Eosinophil# 0.01 X10^3/uL; Eosinophils% 0.1 % (0-5); Hematocrit 37.2 % (37-47); Hemoglobin 11.7 g/dL (12.0-15.0); Lymphocyte % 2.1 % (19-41); Mean Corp Hgb Conc 31.5 g/dL (32-36); Mean Corpuscular Hgb 29.7 pg (27.0-32.0); Mean Corpuscular Volume 94.4 fL (81-99); Mean Platelet Vol. 10.1 fl (6.2-12.0); Monocyte# 1.23 X10^3/uL; Monocyte% 8.8 % (0-10); NRBC Flagged by Analyzer 0 % (0-5); POSITIVE DIFFERENTIAL YES; Platelet Count 177 K/mm3 (150-450); RBC Distribution Width CV 14.5 % (11.6-14.6); Red Blood Count 3.94 M/mm3 (4.2-5.4)
[2020-12-29 06:15] LABS: Differential Indicated SCAN CRITERIA MET
[2020-12-29 06:33] LABS: Differential Comment SCANNED
[2020-12-29 06:45] LABS: Anion Gap 7 (5-15); BUN 18 mg/dL (7-18); BUN/Creat Ratio 19.3 RATIO (10-20); Calcium,Total 8.7 mg/dL (8.5-10.1); Chloride 104 mmol/L (98-107); Creatinine, Serum 0.93 mg/dL (0.55-1.02); EST Glomerular Filtration Rate 67 mL/min (>60); Est Glom Filt Rate - Afr Amer 81 mL/min (>60); Estimated Creatinine Clearance 68.81 ml/min; Glucose 171 mg/dL (74-106); Potassium 4.5 mmol/L (3.5-5.1); Sodium Level 134 mmol/L (136-145)
[2020-12-29] MEDS: Metoprolol Tartrate 50 MG Tablet PO (07:10)
[2020-12-29] MEDS: Ipratropium/Albuterol Sulfate 3 ML AMPUL.NEB INHALATION ×2 (07:22→18:37)
[2020-12-29 09:43] LABS: Partial Thromboplast Time 50.1 Seconds (24.1-36.2)
[2020-12-29] MEDS: Folic Acid 1 MG Tablet PO (09:46)
[2020-12-29] MEDS: Pantoprazole Sodium 40 MG Tablet PO (09:46)
[2020-12-29] MEDS: Amiodarone 200 MG Tablet PO ×2 (09:56→21:00)
[2020-12-29] MEDS: Digoxin 250 MCG Tablet PO (09:56)
[2020-12-29] MEDS: Heparin Injection (Vial) 5,000 UNIT/ML VIAL IV (10:30)
[2020-12-29] MEDS: HEPARIN/D5w 25,000 UNITS 25,000 UNITS/250 ML IV.SOLN. 14 UNITS IV (10:33)
--- NOTE | 2020-12-29 13:40 | CASEMGMT ---
CATHIE GARNER Assessment: Face to Face with pt for initial transition planning/care coordination assessment. RN PASCUAL introduced self and role at [facility], pt voices understanding and consents to assessment. Pt is A/O x4 and answers all questions appropriately at this time. Pt sitting up in bed in no distress. Care providers, pharmacy, and demographics verified/updated. Admitting Dx: acute coronary syndrome PCP: June Specialists: dagoberto Lugo Preferred Pharmacy: [facility] Insurance: MMO Prescription Benefit: yes LW/HPOA: Pt denies having a LW/DPOA and denies need for info on AD. LNOK: , Jorge Barroso Living Arrangements: Pt lives with in a two story house with no steps to enter in the back. Pt is I in ADL's and denies concerns at home. Transportation: Pt drives self. Denies issues with tranpsortation. DME/HHC/SNF: Pt has a CPAP and O2 at home to use with the CPAP. Pt states she bought the O2 on her own and does not go through a DME company. 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 Pt denies previous HHC or SNF stays. Pt states no concerns with going home at time of dc. Pt states no further concerns/needs. CM to follow. Advised pt to ask CM if any further question/concerns/needs arise, voices understanding. Pt Goal: Home Plan: Home with family support
--- NOTE | 2020-12-29 13:40 | CM.UR ---
CATHIE GARNER Assessment: Face to Face with pt for initial transition planning/care coordination assessment. RN PASCUAL introduced self and role at [facility], pt voices understanding and consents to assessment. Pt is A/O x4 and answers all questions appropriately at this time. Care providers, pharmacy, and demographics verified/updated. Admitting Dx: PCP: Specialists: Preferred Pharmacy: Insurance: Prescription Benefit: LW/HPOA: LNOK: Living Arrangements: Transportation: DME/HHC/SNF: Pt states no concerns with going home at time of dc. Pt states no further concerns/needs. CM to follow. Advised pt to ask CM if any further question/concerns/needs arise, voices understanding. Pt Goal: Plan:
--- NOTE | 2020-12-29 15:48 | STRESSREP_ITS ---
Stress Test Report Pharmacologic myocardial perfusion stress test. Indication; 50-year-old patient presented with shortness of breath palpitation Patient had longstanding history of COPD, atrial flutter converted to normal sinus rhythm. Patient has obstructive sleep apnea and severe pulmonary hypertension. Has been on CPAP and home oxygen. Stress protocol: Resting EKG demonstrates. Normal sinus rhythm. 0.4 mg of regadenoson was infused per usual protocol followed by rapid intravenous saline flush injection continuous EKG monitoring was performed. The maximum heart rate attained was 93 bpm which was 55% of maximum predicted heart rate.. Stress EKG showed[, no significant change from the resting EKG, with maximum heart rate of 93 bpm Arrhythmia: No arrhythmia demonstrated Symptoms: Patient had epigastric chest discomfort Blood pressure at rest: 152/96 mmHg blood pressure at the end of stress: 150/94 mmHg Myocardial perfusion protocol. 14 mCi ]of Technetium 99m Sestamibi was injected at rest. [ 0.4 mg ]of Regadenoson was infused per usual protocol peak infusion 42 mCi of Technetium 99m sestamibi was injected. Stress images were obtained stress and rest images were reconstructed and compared in the short axis vertical and horizontal long axis. Gated images were also obtained Perfusion SPECT analysis: Review of the images demonstrate attenuation artifact noted in the anterior likely secondary to breast attenuation as well is noted in the inferior dual to large hiatus hernia. Post stress images demonstrate similar uptake of sestamibi to the resting images, no reversible myocardial ischemia noted. . Gated SPECT analysis: The gated ejection fraction is 64%, wall motion normal with normal LV thickness Conclusion: Negative Lexiscan sestamibi myocardial perfusion study for reversible myocardial ischemia Normal LV systolic function Attenuation artifact, in the anterior secondary to breast attenuation as well as in the inferior region due to large hiatus hernia. Nasima Mayorga MD,FACC,[facility]
--- NOTE | 2020-12-29 16:24 | PN.CARD_ITS ---
Subjective Subjective: This patient seen today at bedside along with the nursing staff and the medical team She had epigastric discomfort, her radiographer cardiac catheterization showed underlying normal sinus (atrial flutter with 2-1 AV block converted to normal sinus rhythm). Patient had longstanding history of COPD/obstructive sleep apnea with severe pul monary hypertension and she has been seen and followed by the production support engineer. Objective Data Vital Signs: Vital Signs Temp Pulse Resp BP Pulse Ox 98.1 F 82 18 154/90 H 98 12/29/20 13:38 12/29/20 15:00 12/29/20 13:38 12/29/20 13:38 12/29/20 13:38 Oxygen Flow Rate (L/min) 2 Oxygen Delivery Method Nasal Cannula Weight: 239 lb 6.752 oz Body Mass Index (BMI) 37.5 Intake & Output: Intake and Output for Last 24 Hours 12/27/20 12/28/20 12/29/20 23:59 23:59 23:59 Intake Total 1565.06 / 2165.06 2300.71 / 2300.71 Balance 1565.06 / 2165.06 2300.71 / 2300.71 Lab / Micro Data Result Diagrams: 12/29/20 05:50 12/29/20 05:50 Labs: Laboratory Results - last 24 hr 12/28/20 12/28/20 12/28/20 16:24 17:29 19:50 WBC RBC Hgb Hct MCV MCH MCHC RDW Std Deviation RDW Coeff of [place] Plt Count MPV Immature Gran % (Auto) Neut % (Auto) Lymph % (Auto) [place] % (Auto) Eos % (Auto) Baso % (Auto) Absolute Neuts (auto) Absolute Lymphs (auto) Nucleated RBC % Differential Comment PT 16.5 H INR 1.4 APTT 136.7 H* Sodium Potassium Chloride Carbon Dioxide Anion Gap BUN Creatinine Estim Creat Clear Calc Est GFR (MDRD) Af Amer Est GFR (MDRD) Non-Af BUN/Creatinine Ratio Glucose Calcium Magnesium 1.7 Troponin I < 0.015 < 0.015 TSH 0.80 12/28/20 12/28/20 12/28/20 19:50 19:50 22:43 WBC RBC Hgb Hct MCV MCH MCHC RDW Std Deviation RDW Coeff of [place] Plt Count MPV Immature Gran % (Auto) Neut % (Auto) Lymph % (Auto) [place] % (Auto) Eos % (Auto) Baso % (Auto) Absolute Neuts (auto) Absolute Lymphs (auto) Nucleated RBC % Differential Comment PT 15.1 H INR 1.3 APTT 86.3 H Sodium Potassium Chloride Carbon Dioxide Anion Gap BUN Creatinine Estim Creat Clear Calc Est GFR (MDRD) Af Amer Est GFR (MDRD) Non-Af BUN/Creatinine Ratio Glucose Calcium Magnesium Troponin I 0.017 TSH 12/29/20 12/29/20 12/29/20 02:30 05:50 05:50 WBC 14.0 H RBC 3.94 L Hgb 11.7 L Hct 37.2 MCV 94.4 MCH 29.7 MCHC 31.5 L RDW Std Deviation 50.0 H RDW Coeff of [place] 14.5 Plt Count 177 MPV 10.1 Immature Gran % (Auto) 0.900 Neut % (Auto) 88.0 H Lymph % (Auto) 2.1 L [place] % (Auto) 8.8 Eos % (Auto) 0.1 Baso % (Auto) 0.1 Absolute Neuts (auto) 12.3 H Absolute Lymphs (auto) 0.30 L Nucleated RBC % 0 Differential Comment SCANNED PT INR APTT 61.7 H Sodium 134 L Potassium 4.5 Chloride 104 Carbon Dioxide 23.0 Anion Gap 7 BUN 18 Creatinine 0.93 Estim Creat Clear Calc 68.81 Est GFR (MDRD) Af Amer 81 Est GFR (MDRD) Non-Af 67 BUN/Creatinine Ratio 19.3 Glucose 171 H Calcium 8.7 Magnesium Troponin I TSH 12/29/20 09:04 WBC RBC Hgb Hct MCV MCH MCHC RDW Std Deviation RDW Coeff of [place] Plt Count MPV Immature Gran % (Auto) Neut % (Auto) Lymph % (Auto) [place] % (Auto) Eos % (Auto) Baso % (Auto) Absolute Neuts (auto) Absolute Lymphs (auto) Nucleated RBC % Differential Comment PT INR APTT 50.1 H Sodium Potassium Chloride Carbon Dioxide Anion Gap BUN Creatinine Estim Creat Clear Calc Est GFR (MDRD) Af Amer Est GFR (MDRD) Non-Af BUN/Creatinine Ratio Glucose Calcium Magnesium Troponin I TSH Micro: Microbiology 12/28/20 12:16 Nasal Secretion SARS-CoV-2 Antigen (Rapid) - Final Cardiology Labs/Tests 12/28/20 16:24: PT 16.5 H, INR 1.4, APTT 136.7 H* 12/28/20 17:29: Troponin I < 0.015 12/28/20 19:50: Magnesium 1.7, Troponin I < 0.015 12/28/20 19:50: APTT 86.3 H 12/28/20 19:50: PT 15.1 H, INR 1.3 12/28/20 22:43: Troponin I 0.017 12/29/20 02:30: APTT 61.7 H 12/29/20 05:50: WBC 14.0 H, RBC 3.94 L, Hgb 11.7 L, Hct 37.2, MCV 94.4, MCH 29.7, MCHC 31.5 L, Plt Count 177, MPV 10.1, Immature Gran % (Auto) 0.900, Neut % (Auto) 88.0 H, Lymph % (Auto) 2.1 L, [place] % (Auto) 8.8, Eos % (Auto) 0.1, Baso % (Auto) 0.1, Absolute Neuts (auto) 12.3 H, Nucleated RBC % 0 12/29/20 05:50: Sodium 134 L, Potassium 4.5, Chloride 104, Carbon Dioxide 23.0, Anion Gap 7, BUN 18, Creatinine 0.93, Est GFR (MDRD) Af Amer 81, Est GFR (MDRD) Non-Af 67, BUN/Creatinine Ratio 19.3, Glucose 171 H, Calcium 8.7 12/29/20 09:04: APTT 50.1 H Rhythm: Patient has episode of atrial flutter with 2: 1 AV block converted to normal sinus rhythm EKG: Normal sinus rhythm with nonspecific change ECHO: LV systolic function preserved Moderately enlarged right ventricle, severe pulmonary hypertension with spap measuring 77 mmHg. Small pericardial effusion with no hemodynamic compromise Stress Test: Ejection fraction calculated 64%, normal perfusion with significant area of attenuation artifact noted in the anterior myocardium consistent with breast attenuation as well in the inferior segment consistent with large hiatal hernia. Radiography Diagnostic Testing: Radiology Impression Echocardiogram 12/28/20 18:02 Interpretation Summary Pulmonary artery systolic pressure is RVSP 77 mmhg mmHg.Severe pulmonary Hypertension The estimated ejection fraction is EF 60-65% %. Moderate TR Small pericardial Effusion Ordering Physician: Merari Borges Referring Physician: Didier Watkins Performed By: Chantel Anthony RDCS Physical Exam Const alert, oriented x3, no apparent distress and healthy appearing General Appearance: other Orientation / Consciousness: awake Resp Auscultation: diminished lung sounds bilateral Cardio Cardio Narrative: Cardiac rhythm strip with A. fib with RVR GI normal to inspection, nondistended, normoactive bowel sounds, soft to palpation and non-tender Assessment & Plan Assessment/Plan (1) COPD (chronic obstructive pulmonary disease): Status: Chronic Code(s): J44.9 - Chronic obstructive pulmonary disease, unspecified Qualifiers: COPD type: unspecified COPD Qualified Code(s): J44.9 - Chronic obstructive pulmonary disease, unspecified (2) Obstructive sleep apnea: Status: Chronic Code(s): G47.33 - Obstructive sleep apnea (adult) (pediatric) (3) Pulmonary hypertension: Status: Acute Code(s): I27.20 - Pulmonary hypertension, unspecified (4) GERD (gastroesophageal reflux disease): Status: Chronic Code(s): K21.9 - Gastro-esophageal reflux disease without esophagitis Qualifiers: Esophagitis presence: esophagitis presence not specified Qualified Code(s): K21.9 - Gastro-esophageal reflux disease without esophagitis (5) Atrial flutter: Status: Acute Code(s): I48.92 - Unspecified atrial flutter Qualifiers: Atrial flutter type: typical Qualified Code(s): I48.3 - Typical atrial flutter Plan: 50-year-old patient tented to ER with palpitation and symptoms of chest pain and shortness of breath also has symptoms of epigastric chest pain. Patient has underlying obstructive sleep apnea, chronic obstructive pulmonary disease, and history of pulmonary hypertension. Patient morbidly obese with underlying radiographer cardiac catheterization showing A. fib with RVR/atrial flutter did not respond well to the treatment in the ER with Cardizem. Patient converted to normal sinus rhythm today Plan and recommendations; #1 patient had evaluation by echocardiogram which showed moderately enlarged RV with severe pulmonary artery hypertension With a small pericardial effusion 2. Evaluation by Lexiscan sestamibi showed normal perfusion with significant area of attenuation artifact noted in the anterior and the inferior region. If she had further episode of chest discomfort recommendation would be to evaluate her further with cardiac catheterization due to the limitation of the nuclear stress test with attenuation artifact. 3. I reviewed and discussed the current medication in detail and also I discussed side effects of the medication in particular regarding amiodarone We will continue on amiodarone 200 mg twice daily patient did not respond very well to Cardizem. I also advised strongly to follow-up with the cardiology as an outpatient in 1 to 2 weeks for monitoring of her medication and discussing further plan for the atrial flutter. Patient has established production support engineer to follow-up with her production support engineer. 4. She is a high risk for stroke according to CHADS VASC score and restarted on Eliquis 5 mg twice daily. Patient has been tolerating low-dose beta-gisela very well and will continue on metoprolol 25 twice daily From cardiac standpoint patient can be discharged home with the plan of follow- up with cardiology as an outpatient.
--- NOTE | 2020-12-29 16:32 | PN.HOSP_ITS ---
Subjective Subjective: Patient is a 48-year-old female complete resting in bed, alert and oriented x3. Patient reports anxiety, chest pain and shortness of breath from admission have improved. Patient denies development of any other symptoms to include fevers, chills, palpitations, N/V/D. Objective Data Objective Data Vital Signs: Vital Signs Temp Pulse Resp BP Pulse Ox 98.2 F 85 18 160/94 H 97 12/29/20 16:25 12/29/20 16:25 12/29/20 16:25 12/29/20 16:25 12/29/20 16:25 Oxygen Flow Rate (L/min) 2 Oxygen Delivery Method Nasal Cannula Weight: 239 lb 6.752 oz Body Mass Index (BMI) 37.5 Intake & Output: Intake and Output for Last 24 Hours 12/27/20 12/28/20 12/29/20 23:59 23:59 23:59 Intake Total 1565.06 / 2165.06 2300.71 / 2300.71 Balance 1565.06 / 2165.06 2300.71 / 2300.71 Lab / Micro Data Result Diagrams: 12/29/20 05:50 12/29/20 05:50 Labs: Laboratory Results - last 24 hr 12/28/20 12/28/20 12/28/20 16:24 17:29 19:50 WBC RBC Hgb Hct MCV MCH MCHC RDW Std Deviation RDW Coeff of [place] Plt Count MPV Immature Gran % (Auto) Neut % (Auto) Lymph % (Auto) [place] % (Auto) Eos % (Auto) Baso % (Auto) Absolute Neuts (auto) Absolute Lymphs (auto) Nucleated RBC % Differential Comment PT 16.5 H INR 1.4 APTT 136.7 H* Sodium Potassium Chloride Carbon Dioxide Anion Gap BUN Creatinine Estim Creat Clear Calc Est GFR (MDRD) Af Amer Est GFR (MDRD) Non-Af BUN/Creatinine Ratio Glucose Calcium Magnesium 1.7 Troponin I < 0.015 < 0.015 TSH 0.80 12/28/20 12/28/20 12/28/20 19:50 19:50 22:43 WBC RBC Hgb Hct MCV MCH MCHC RDW Std Deviation RDW Coeff of [place] Plt Count MPV Immature Gran % (Auto) Neut % (Auto) Lymph % (Auto) [place] % (Auto) Eos % (Auto) Baso % (Auto) Absolute Neuts (auto) Absolute Lymphs (auto) Nucleated RBC % Differential Comment PT 15.1 H INR 1.3 APTT 86.3 H Sodium Potassium Chloride Carbon Dioxide Anion Gap BUN Creatinine Estim Creat Clear Calc Est GFR (MDRD) Af Amer Est GFR (MDRD) Non-Af BUN/Creatinine Ratio Glucose Calcium Magnesium Troponin I 0.017 TSH 12/29/20 12/29/20 12/29/20 02:30 05:50 05:50 WBC 14.0 H RBC 3.94 L Hgb 11.7 L Hct 37.2 MCV 94.4 MCH 29.7 MCHC 31.5 L RDW Std Deviation 50.0 H RDW Coeff of [place] 14.5 Plt Count 177 MPV 10.1 Immature Gran % (Auto) 0.900 Neut % (Auto) 88.0 H Lymph % (Auto) 2.1 L [place] % (Auto) 8.8 Eos % (Auto) 0.1 Baso % (Auto) 0.1 Absolute Neuts (auto) 12.3 H Absolute Lymphs (auto) 0.30 L Nucleated RBC % 0 Differential Comment SCANNED PT INR APTT 61.7 H Sodium 134 L Potassium 4.5 Chloride 104 Carbon Dioxide 23.0 Anion Gap 7 BUN 18 Creatinine 0.93 Estim Creat Clear Calc 68.81 Est GFR (MDRD) Af Amer 81 Est GFR (MDRD) Non-Af 67 BUN/Creatinine Ratio 19.3 Glucose 171 H Calcium 8.7 Magnesium Troponin I TSH 12/29/20 09:04 WBC RBC Hgb Hct MCV MCH MCHC RDW Std Deviation RDW Coeff of [place] Plt Count MPV Immature Gran % (Auto) Neut % (Auto) Lymph % (Auto) [place] % (Auto) Eos % (Auto) Baso % (Auto) Absolute Neuts (auto) Absolute Lymphs (auto) Nucleated RBC % Differential Comment PT INR APTT 50.1 H Sodium Potassium Chloride Carbon Dioxide Anion Gap BUN Creatinine Estim Creat Clear Calc Est GFR (MDRD) Af Amer Est GFR (MDRD) Non-Af BUN/Creatinine Ratio Glucose Calcium Magnesium Troponin I TSH Micro: Microbiology 12/28/20 12:16 Nasal Secretion SARS-CoV-2 Antigen (Rapid) - Final Radiography Diagnostic Testing: Radiology Impression Echocardiogram 12/28/20 18:02 Interpretation Summary Pulmonary artery systolic pressure is RVSP 77 mmhg mmHg.Severe pulmonary Hypertension The estimated ejection fraction is EF 60-65% %. Moderate TR Small pericardial Effusion Ordering Physician: Merari Borges Referring Physician: Didier Watkins Performed By: Chantel Anthony RDCS Physical Exam Narrative See subjective. Const alert, oriented x3 and no apparent distress HEENT head/scalp atraumatic Head and Scalp: normocephalic Eyes EOMs intact bilaterally Neck no lymphadenopathy, supple and no JVD Resp normal respiratory effort and no retractions Cardio regular rate, regular rhythm, no murmurs and no rub GI normal to inspection, nondistended, normoactive bowel sounds, soft to palpation and non-tender Extremity normal to inspection Skin no rashes or lesions noted and no wounds Neuro CN's II-XII intact bilaterally Psych affect normal Assessment & Plan Assessment/Plan (1) Atrial fibrillation with rapid ventricular response: Status: Acute Code(s): I48.91 - Unspecified atrial fibrillation Plan: 1) Atrial fibrillation w/ RVR Echocardiogram demonstrated moderately enlarged right ventricle, preserved EF at 60 to 65%,, small pericardial effusion and severe pulmonary artery hypertension at 77 mmHg. Plan; continue amiodarone 200 mg twice daily, initiate Eliquis 5 mg p.o. twice daily, continue metoprolol 25 mg p.o. twice daily, discontinue digoxin, monitor overnight due to medication changes and anticipate discharge tomorrow. 2) Chest pain Evaluation by nuclear stress test demonstrated normal myocardial perfusion. Etiology of chest pain unclear, either related to A. fib with RVR at presentation or chronic hiatal hernia. Plan; follow-up with cardiology outpatient. 3) Pulmonary hypertension Pulmonary artery systolic pressure is RVSP 75 mmHg; severe pulmonary hypertension. Patient currently being managed on this identifiable. Already following with outpatient pulmonology with plan to change current prescription. Recommend calcium channel gisela, per cardiology. Plan; follow-up with out patient pulmonology. DVT prophylaxis - Eliquis Patient seen by Andi Buenrostro PA-C, under the supervision of Dr. Quintana. (2) Chest pain in adult: Status: Acute Code(s): R07.9 - Chest pain, unspecified (3) Dyspnea: Status: Acute Code(s): R06.00 - Dyspnea, unspecified (4) Essential (primary) hypertension: Status: Chronic Code(s): I10 - Essential (primary) hypertension (5) Pulmonary hypertension: Status: Acute Code(s): I27.20 - Pulmonary hypertension, unspecified (6) COPD (chronic obstructive pulmonary disease): Status: Chronic Code(s): J44.9 - Chronic obstructive pulmonary disease, unspecified Qualifiers: COPD type: unspecified COPD Qualified Code(s): J44.9 - Chronic obstructive pulmonary disease, unspecified (7) Obstructive sleep apnea: Status: Chronic Code(s): G47.33 - Obstructive sleep apnea (adult) (pediatric) (8) GERD (gastroesophageal reflux disease): Status: Chronic Code(s): K21.9 - Gastro-esophageal reflux disease without esophagitis Qualifiers: Esophagitis presence: esophagitis presence not specified Qualified Code(s): K21.9 - Gastro-esophageal reflux disease without esophagitis (9) Hiatal hernia: Status: Acute Code(s): K44.9 - Diaphragmatic hernia without obstruction or gangrene
[2020-12-29] MEDS: Atorvastatin Calcium 10 MG Tablet PO (21:01)
[2020-12-29] MEDS: APIXABAN 5 MG TABLET PO (21:01)
[2020-12-29] MEDS: Metoprolol Tartrate 25 MG Tablet PO (21:01)
[2020-12-29] MEDS: Nortriptyline 25 MG Capsule 50 MG PO (21:01)
[2020-12-29] MEDS: DiphenhydrAMINE 25 MG Capsule PO (21:01)
[2020-12-29] MEDS: Mag Hydrox/Al Hydrox/Simeth 30 ML UDC PO (22:41)
[2020-12-29] MEDS: Acetaminophen 325 MG Tablet 650 MG PO (22:42)
[2020-12-29] MEDS: cycloBENZAPRine HCl 5 MG TABLET PO (22:43)
[2020-12-30] VITALS (10 sets, daily range): BP systolic 144–165; BP diastolic 84–110; PULSE 81–95; RESP 15–20; TEMP 36.8–36.9; O2SAT 93–95
[2020-12-30] MEDS: Albuterol 2.5 MG/3 ML VIAL.NEB. INHALATION (03:36)
[2020-12-30] MEDS: Levothyroxine 25 MCG TABLET PO (06:04)
[2020-12-30 06:59] LABS: Absolute Lymphocyte Count 0.62 X10^3/uL (0.83-4.51); Absolute Neutrophil Count 7.6 X10^3/uL (2.0-7.7); Basophil# 0.04 X10^3/uL; Basophil% 0.4 % (0-1); Eosinophil# 0.24 X10^3/uL; Eosinophils% 2.6 % (0-5); Hemoglobin 11.4 g/dL (12.0-15.0); Lymphocyte # 0.62 X10^3/ul (0.83-4.51); Lymphocyte % 6.7 % (19-41); Mean Corpuscular Hgb 29.9 pg (27.0-32.0); Mean Corpuscular Volume 99.7 fL (81-99); Mean Platelet Vol. 9.5 fl (6.2-12.0); Monocyte# 0.67 X10^3/uL; Monocyte% 7.3 % (0-10); NRBC Flagged by Analyzer 0 % (0-5); Neutrophil # 7.58 X10^3/uL (2.7-7.7); Neutrophil % 82.3 % (47-70); Platelet Count 167 K/mm3 (150-450); RBC Distribution Width CV 14.6 % (11.6-14.6); RBC Distribution Width SD 53.3 fl (35.1-43.9); Red Blood Count 3.81 M/mm3 (4.2-5.4); White Blood Count 9.2 K/mm3 (4.4-11.0)
[2020-12-30 07:24] LABS: Anion Gap 4 (5-15); BUN 19 mg/dL (7-18); BUN/Creat Ratio 21.7 RATIO (10-20); Calcium,Total 8.9 mg/dL (8.5-10.1); Chloride 106 mmol/L (98-107); Creatinine, Serum 0.88 mg/dL (0.55-1.02); EST Glomerular Filtration Rate 72 mL/min (>60); Est Glom Filt Rate - Afr Amer 87 mL/min (>60); Estimated Creatinine Clearance 72.72 ml/min; Glucose 113 mg/dL (74-106); Potassium 4.1 mmol/L (3.5-5.1); Sodium Level 139 mmol/L (136-145)
[2020-12-30] MEDS: Ipratropium/Albuterol Sulfate 3 ML AMPUL.NEB INHALATION (07:54)
[2020-12-30] MEDS: Folic Acid 1 MG Tablet PO (08:50)
[2020-12-30] MEDS: Metoprolol Tartrate 25 MG Tablet PO (08:50)
[2020-12-30] MEDS: APIXABAN 5 MG TABLET PO (08:50)
[2020-12-30] MEDS: Amiodarone 200 MG Tablet PO (08:50)
[2020-12-30] MEDS: Pantoprazole Sodium 40 MG Tablet PO (08:51)
--- NOTE | 2020-12-30 10:49 | PCM.DC ---
Discharge Instructions Outpatient Procedure Reason For Visit: ACUTE CORONARY SYNDROME Diet Discharge Diet: No restrictions Activity Discharge Activity: Return to Normal Activity Follow Up Care Please Follow Up With: Primary care provider When: Within the next 2 weeks. Test Results: Test results from this visit will be discussed in further detail at your follow-up appointment, if applicable. Discharge Plan Admission Admit Date/Time: 12/28/20 15:31 Primary Reason for Your Visit: Chest pain in the setting of Atrial Fibrillation w/ RVR. Attending Provider: Alis Quintana Primary Care Provider: Didier Watkins Consulting Providers: Princess Araujo ; Luis Benavides ; Yfn Brooks ; Rich Tian ; Shawn oCle ; Jonah Mitchell ; Eyad Dwyer ; Didier White ; Joseph Guerra ; Andi Banuelos NP ; Jasmyne Sparks PA Instructions Patient Instructions: ED Chest Pain, Noncardiac Discharge Orders/Prescriptions Prescriptions: New amiodarone 200 mg tablet 200 mg PO BID Qty: 60 RF: 0 Eliquis 5 mg tablet 5 mg PO BID Qty: 60 RF: 0 metoprolol tartrate 25 mg tablet 25 mg PO BID Qty: 60 RF: 0 lisinopril-hydrochlorothiazide 10-12.5 mg tablet 1 tab PO DAILY Qty: 30 RF: 0 Continued rosuvastatin [Crestor] 5 mg tablet 5 mg PO DAILY RF: 0 nortriptyline 50 mg capsule 50 mg PO QHS RF: 0 cyclobenzaprine 5 mg tablet 5 mg PO TID PRN PRN (Reason: Spasms) RF: 0 bumetanide 0.5 mg tablet 0.5 mg PO DAILY RF: 0 Trelegy Ellipta 100-62.5-25 mcg blister with device 1 inh INHALATION DAILY RF: 0 sildenafil 25 mg tablet 25 mg PO TID RF: 0 albuterol sulfate 1 PUFF inhaler 1 - 2 puff IH Q4H PRN PRN (Reason: Wheezing) RF: 0 acetaminophen 500 MG tablet 1,000 mg PO DAILY PRN PRN (Reason: Pain 1-10 Or Fever) RF: 0 levothyroxine 25 MCG tablet 25 mcg PO DAILY RF: 0 esomeprazole magnesium 40 MG capsule 40 mg PO DAILY RF: 0 folic acid 1 MG tablet 1 mg PO DAILY RF: 0 cholecalciferol (vitamin D3) 10 MCG capsule 400 unit PO DAILY RF: 0 multivitamin Tablet 1 tab PO DAILY MDD SUPPLEMEMT RF: 0 albuterol sulfate 2.5 mg /3 mL (0.083 %) solution for nebulization 2.5 mg inhalation Q6H PRN PRN (Reason: SOB) RF: 0 montelukast [Singulair] 10 mg tablet 10 mg PO DAILY RF: 0 Discontinued metoprolol tartrate 50 mg tablet 50 mg PO DAILY RF: 0 Referrals: Didier Watkins MD [Primary Care Provider] - Disposition Patient Disposition: Home, self care
--- NOTE | 2020-12-30 12:18 | DS.PCM_ITS ---
Documented by User: Andi BREAUX 12/30/20 12:30 Providers Date of Admission: 12/28/20 Primary Care Physician: Dr. Didier Watkins MD Consultations 12/28/20 18:02 Consult: Cardiology Routine Consulting Provider: [facility] Reason for Consult: New onset A. fib with RVR EMERGENT Consult: No MD Notified: Yes Date Notified:: 12/28/20 Time Notified: 15:29 Method of Notification: Verbal Comments:: Notified by ER physician Reason For Visit: ACUTE CORONARY SYNDROME Diagnosis Discharge Diagnosis (1) Atrial fibrillation with rapid ventricular response: Status: Acute Code(s): I48.91 - Unspecified atrial fibrillation (2) Chest pain in adult: Status: Acute Code(s): R07.9 - Chest pain, unspecified (3) Dyspnea: Status: Acute Code(s): R06.00 - Dyspnea, unspecified (4) Essential (primary) hypertension: Status: Chronic Code(s): I10 - Essential (primary) hypertension (5) Pulmonary hypertension: Status: Acute Code(s): I27.20 - Pulmonary hypertension, unspecified (6) COPD (chronic obstructive pulmonary disease): Status: Chronic Code(s): J44.9 - Chronic obstructive pulmonary disease, unspecified Qualifiers: COPD type: unspecified COPD Qualified Code(s): J44.9 - Chronic obstructive pulmonary disease, unspecified (7) Obstructive sleep apnea: Status: Chronic Code(s): G47.33 - Obstructive sleep apnea (adult) (pediatric) (8) GERD (gastroesophageal reflux disease): Status: Chronic Code(s): K21.9 - Gastro-esophageal reflux disease without esophagitis Qualifiers: Esophagitis presence: esophagitis presence not specified Qualified Code(s): K21.9 - Gastro-esophageal reflux disease without esophagitis (9) Hiatal hernia: Status: Acute Code(s): K44.9 - Diaphragmatic hernia without obstruction or gangrene Medications at Discharge Home Medications bumetanide 0.5 mg tablet 0.5 mg PO DAILY 06/18/19 cyclobenzaprine 5 mg tablet 5 mg PO TID PRN PRN 06/18/19 fluticasone fur. 100 mcg-umeclid 62.5 mcg-vilant 25 mcg inhalat.powder 1 inh INHALATION DAILY 06/18/19 nortriptyline 50 mg capsule 50 mg PO QHS 06/18/19 rosuvastatin 5 mg tablet 5 mg PO DAILY 06/18/19 sildenafil 25 mg tablet 25 mg PO TID 06/18/19 albuterol sulfate 1 - 2 puff IH Q4H PRN PRN 09/22/19 acetaminophen 1,000 mg PO DAILY PRN PRN 08/01/20 cholecalciferol (vitamin D3) 400 unit PO DAILY 08/01/20 esomeprazole magnesium 40 mg PO DAILY 08/01/20 folic acid 1 mg PO DAILY 08/01/20 levothyroxine 25 mcg PO DAILY 08/01/20 albuterol sulfate 2.5 mg INHALATION Q6H PRN PRN 12/28/20 montelukast [Singulair] 10 mg PO DAILY 12/28/20 multivitamin 1 tab PO DAILY MDD SUPPLEMEMT 12/28/20 amiodarone 200 mg PO BID #60 tab 12/30/20 apixaban [Eliquis] 5 mg PO BID #60 tab 12/30/20 lisinopril-hydrochlorothiazide 1 tab PO DAILY #30 tab 12/30/20 metoprolol tartrate 25 mg PO BID #60 tab 12/30/20 Hospital Course Procedures 2-D Echocardiogram and Stress test Summary of Care Provided Minutes Spent on Discharge: 35 Hospital Course: Patient is a 50-year-old female who was admitted on 12/28/2020 for atrial fibrillation with RVR. Cardiac stress test was negative for reversible myocardial ischemia demonstrated normal left ventricular systolic function with an ejection fraction of 64%. Recommendations from cardiology as below. Patient's blood pressure has remained elevated throughout admission, lisinopril and hydrochlorothiazide initiated on discharge. Recommended that patient follow-up with primary care provider within the next week to reevaluate hypertension and obtain a BMP. Recommendation changes below. 1) Atrial fibrillation w/ RVR Echocardiogram demonstrated moderately enlarged right ventricle, preserved EF at 60 to 65%,, small pericardial effusion and severe pulmonary artery hypertension at 77 mmHg. Plan; continue amiodarone 200 mg twice daily, initiate Eliquis 5 mg p.o. twice daily, continue metoprolol 25 mg p.o. twice daily. Follow-up with the [facility] within the next 2 weeks. 2) Chest pain Evaluation by nuclear stress test demonstrated normal myocardial perfusion. Etiology of chest pain unclear, either related to A. fib with RVR at presentation or chronic hiatal hernia. Plan; follow-up with cardiology within the next 2 weeks. 3) Pulmonary hypertension Pulmonary artery systolic pressure is RVSP 75 mmHg; severe pulmonary hypertension. Patient currently being managed on this identifiable. Already following with outpatient pulmonology with plan to change current prescription. Recommend calcium channel gisela, per cardiology. Plan; follow-up with outpatient pulmonology for modification of her current sildenafil prescription. Patient seen by Andi Buenrostro PA-C, under the supervision of Dr. Quintana. Physical Exam Narrative Patient is a 50-year-old female comfortably resting in bed, alert and orient x3. Patient reports resolution of chest pain and shortness of breath from admission and feel strong enough to go home. Patient denies chest pain, shortness of breath, palpitations, fever, chills, N/V/D. Const alert and oriented x3 General Appearance: cooperative HEENT normocephalic, head/scalp atraumatic and hearing grossly normal bilaterally Eyes EOMs intact bilaterally Neck no lymphadenopathy, supple and no JVD Resp normal respiratory effort and no retractions Cardio regular rate, regular rhythm, no murmurs and no rub GI normal to inspection, nondistended, normoactive bowel sounds, soft to palpation and non-tender Extremity full ROM Skin no rashes or lesions noted Neuro CN's II-XII intact bilaterally Psych affect normal ABG / Lab / Microbiology Data Result Diagrams: 12/30/20 06:40 12/30/20 06:40 Laboratory: Laboratory Results - last 24 hr 12/30/20 12/30/20 06:40 06:40 WBC 9.2 RBC 3.81 L Hgb 11.4 L Hct 38.0 MCV 99.7 H D MCH 29.9 MCHC 30.0 L RDW Std Deviation 53.3 H RDW Coeff of Leighton 14.6 Plt Count 167 MPV 9.5 Immature Gran % (Auto) 0.700 Neut % (Auto) 82.3 H Lymph % (Auto) 6.7 L Sterling % (Auto) 7.3 Eos % (Auto) 2.6 Baso % (Auto) 0.4 Absolute Neuts (auto) 7.6 Absolute Lymphs (auto) 0.62 L Nucleated RBC % 0 Sodium 139 Potassium 4.1 Chloride 106 Carbon Dioxide 29.0 Anion Gap 4 L BUN 19 H Creatinine 0.88 Estim Creat Clear Calc 72.72 Est GFR (MDRD) Af Amer 87 Est GFR (MDRD) Non-Af 72 BUN/Creatinine Ratio 21.7 H Glucose 113 H Calcium 8.9 Microbiology: Microbiology 12/28/20 11:55 Blood Culture - Preliminary Blood Culture (Wb) - Left Forearm No growth in 48 hours. Microbiology 12/28/20 11:55 Blood Culture (Wb) - Left Forearm Blood Culture - Preliminary No growth in 48 hours. 12/28/20 12:16 Nasal Secretion SARS-CoV-2 Antigen (Rapid) - Final Radiography Diagnostic Testing: Radiology Impression Echocardiogram 12/28/20 18:02 Interpretation Summary Pulmonary artery systolic pressure is RVSP 77 mmhg mmHg.Severe pulmonary Hypert ension The estimated ejection fraction is EF 60-65% %. Moderate TR Small pericardial Effusion Ordering Physician: Merari Borges Referring Physician: Didier Watkins Performed By: Chantel Anthony RDCS D/C Instructions Discharge Diet: No restrictions Discharge Activity: Return to Normal Activity Please Follow Up With: Primary care provider When: Within the next 2 weeks. Meaningful Use Info Meaningful Use Diagnoses (Choose all that apply): None applicable Discharge Plan Admission Admit Date/Time: 12/28/20 15:31 Primary Reason for Your Visit: Chest pain in the setting of Atrial Fibrillation w/ RVR. Attending Provider: Alis Quintana Primary Care Provider: Didier Watkins Consulting Providers: Princess Araujo ; Luis Benavides ; Yfn Brooks ; Rich Tian ; Shawn Cole ; Jonah Mitchell ; Eyad Dwyer ; Didier White ; Joseph Guerra ; Andi Banuelos NP ; Jasmyne Sparks PA Instructions Patient Instructions: ED Chest Pain, Noncardiac Discharge Orders/Prescriptions Prescriptions: New amiodarone 200 mg tablet 200 mg PO BID Qty: 60 RF: 0 Eliquis 5 mg tablet 5 mg PO BID Qty: 60 RF: 0 metoprolol tartrate 25 mg tablet 25 mg PO BID Qty: 60 RF: 0 lisinopril-hydrochlorothiazide 10-12.5 mg tablet 1 tab PO DAILY Qty: 30 RF: 0 Continued rosuvastatin [Crestor] 5 mg tablet 5 mg PO DAILY RF: 0 nortriptyline 50 mg capsule 50 mg PO QHS RF: 0 cyclobenzaprine 5 mg tablet 5 mg PO TID PRN PRN (Reason: Spasms) RF: 0 bumetanide 0.5 mg tablet 0.5 mg PO DAILY RF: 0 Trelegy Ellipta 100-62.5-25 mcg blister with device 1 inh INHALATION DAILY RF: 0 sildenafil 25 mg tablet 25 mg PO TID RF: 0 albuterol sulfate 1 PUFF inhaler 1 - 2 puff IH Q4H PRN PRN (Reason: Wheezing) RF: 0 acetaminophen 500 MG tablet 1,000 mg PO DAILY PRN PRN (Reason: Pain 1-10 Or Fever) RF: 0 levothyroxine 25 MCG tablet 25 mcg PO DAILY RF: 0 esomeprazole magnesium 40 MG capsule 40 mg PO DAILY RF: 0 folic acid 1 MG tablet 1 mg PO DAILY RF: 0 cholecalciferol (vitamin D3) 10 MCG capsule 400 unit PO DAILY RF: 0 multivitamin Tablet 1 tab PO DAILY MDD SUPPLEMEMT RF: 0 albuterol sulfate 2.5 mg /3 mL (0.083 %) solution for nebulization 2.5 mg inhalation Q6H PRN PRN (Reason: SOB) RF: 0 montelukast [Singulair] 10 mg tablet 10 mg PO DAILY RF: 0 Discontinued metoprolol tartrate 50 mg tablet 50 mg PO DAILY RF: 0 Referrals: Didier Watkins MD [Primary Care Provider] - Disposition Patient Disposition: Home, self care Documented by User: Dr. Alis Quintana MD 12/30/20 19:02 Providers Date of Admission: 12/28/20 Reason For Visit: ACUTE CORONARY SYNDROME Medications at Discharge Home Medications bumetanide 0.5 mg tablet 0.5 mg PO DAILY 06/18/19 cyclobenzaprine 5 mg tablet 5 mg PO TID PRN PRN 06/18/19 fluticasone fur. 100 mcg-umeclid 62.5 mcg-vilant 25 mcg inhalat.powder 1 inh INHALATION DAILY 06/18/19 nortriptyline 50 mg capsule 50 mg PO QHS 06/18/19 rosuvastatin 5 mg tablet 5 mg PO DAILY 06/18/19 sildenafil 25 mg tablet 25 mg PO TID 06/18/19 albuterol sulfate 1 - 2 puff IH Q4H PRN PRN 09/22/19 acetaminophen 1,000 mg PO DAILY PRN PRN 08/01/20 cholecalciferol (vitamin D3) 400 unit PO DAILY 08/01/20 esomeprazole magnesium 40 mg PO DAILY 08/01/20 folic acid 1 mg PO DAILY 08/01/20 levothyroxine 25 mcg PO DAILY 08/01/20 albuterol sulfate 2.5 mg INHALATION Q6H PRN PRN 12/28/20 montelukast [Singulair] 10 mg PO DAILY 12/28/20 multivitamin 1 tab PO DAILY MDD SUPPLEMEMT 12/28/20 amiodarone 200 mg PO BID #60 tab 12/30/20 apixaban [Eliquis] 5 mg PO BID #60 tab 12/30/20 lisinopril-hydrochlorothiazide 1 tab PO DAILY #30 tab 12/30/20 metoprolol tartrate 25 mg PO BID #60 tab 12/30/20 ABG / Lab / Microbiology Data Result Diagrams: 12/30/20 06:40 12/30/20 06:40 Discharge Plan Admission Admit Date/Time: 12/28/20 15:31 Primary Reason for Your Visit: Chest pain in the setting of Atrial Fibrillation w/ RVR. Attending Provider: Alis Quintana Primary Care Provider: Didier Watkins Consulting Providers: Princess Araujo ; Luis Benavides ; Yfn Brooks ; Rich Tian ; Shawn Cole ; Jonah Mitchell ; Eyad Dwyer ; Didier White ; Joseph Guerra ; Andi Banuelos NP ; Jasmyne Sparks PA Instructions Patient Instructions: ED Chest Pain, Noncardiac Discharge Orders/Prescriptions Prescriptions: New amiodarone 200 mg tablet 200 mg PO BID Qty: 60 RF: 0 Eliquis 5 mg tablet 5 mg PO BID Qty: 60 RF: 0 metoprolol tartrate 25 mg tablet 25 mg PO BID Qty: 60 RF: 0 lisinopril-hydrochlorothiazide 10-12.5 mg tablet 1 tab PO DAILY Qty: 30 RF: 0 Continued rosuvastatin [Crestor] 5 mg tablet 5 mg PO DAILY RF: 0 nortriptyline 50 mg capsule 50 mg PO QHS RF: 0 cyclobenzaprine 5 mg tablet 5 mg PO TID PRN PRN (Reason: Spasms) RF: 0 bumetanide 0.5 mg tablet 0.5 mg PO DAILY RF: 0 Trelegy Ellipta 100-62.5-25 mcg blister with device 1 inh INHALATION DAILY RF: 0 sildenafil 25 mg tablet 25 mg PO TID RF: 0 albuterol sulfate 1 PUFF inhaler 1 - 2 puff IH Q4H PRN PRN (Reason: Wheezing) RF: 0 acetaminophen 500 MG tablet 1,000 mg PO DAILY PRN PRN (Reason: Pain 1-10 Or Fever) RF: 0 levothyroxine 25 MCG tablet 25 mcg PO DAILY RF: 0 esomeprazole magnesium 40 MG capsule 40 mg PO DAILY RF: 0 folic acid 1 MG tablet 1 mg PO DAILY RF: 0 cholecalciferol (vitamin D3) 10 MCG capsule 400 unit PO DAILY RF: 0 multivitamin Tablet 1 tab PO DAILY MDD SUPPLEMEMT RF: 0 albuterol sulfate 2.5 mg /3 mL (0.083 %) solution for nebulization 2.5 mg inhalation Q6H PRN PRN (Reason: SOB) RF: 0 montelukast [Singulair] 10 mg tablet 10 mg PO DAILY RF: 0 Discontinued metoprolol tartrate 50 mg tablet 50 mg PO DAILY RF: 0 Referrals: Didier Watkins MD [Primary Care Provider] - Disposition Patient Disposition: Home, self care Addendum Addendum: This patient was seen in conjunction with SAEID Schaffer. I have independently interviewed and examined the patient and reviewed pertinent historical, laboratory, and other data. Please refer to SAEID Schaffer's note for his patient's presentation, findings, and recommendations. I have reviewed and his note and concur with his documentation 48-year-old patient with past medical history of FADY, COPD, severe pulmonary hypertension who was admitted with palpitations and chest pain. She was found to have A. fib with RVR and started on Cardizem with no improvement. She was transitioned to amiodarone and heparin drip. She was managed in the telemetry floor with no acute events. She converted to normal sinus rhythm. She was seen by cardiology. A 2D echo showed normal LV function but severe pulmonary hypertension. She underwent nuclear stress test was unremarkable. On the day of discharge, patient was seen and examined. No new complains. Physical Exam: Gen:Comfortable, not pale, not jaundiced CVS:HS I +II, regular, no murmurs RESP: Diminished GI: BS present and normal, soft, nontender, no palpable organs EXT:No edema Visit Charges Inpatient E&M: [id number] Disch Hosp
--- NOTE | 2020-12-30 14:31 | NURSING ---
RN spoke with Dr. Mayorga regarding when patient needs to follow-up in the office. Per Dr. Mayorga, patient needs to follow-up with Dr. White in 1 week. Patient updated and is aware of same.
--- NOTE | 2020-12-30 16:12 | CASEMGMT ---
CATHIE GARNER NOTE: Pt has been discharged home on Eliquis. 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 Call placed to [facility] and spoke w/Tiki. She states prior auth is required. CATHIE GARNER provided Tiki w/[employer] 30-day co-pay savings card information. Call placed to pt and she was made aware 30-day savings card info has been given to [facility] but that she will need to activate the card 1st prior to the pharmacy being able to apply it. She was provided w/the savings card information and instructed on how to activate the card. She states she has [employer]'s phone number and recommended she call them once the card has been activated to inform them she has activated it and to confirm it goes through correctly before returning to the pharmacy. Pt also provided w/[employer] CM's number to return call if there are any issues or further concerns. Pt made aware to contact her PCP to have prior auth done for refills. She voices understanding. Andreia VANG RN, CM
== END 2020-12-30 15:05 | disposition home or self-care (01) | DRG 309 ==
LOC: ED 11:45 → PCU 15:22
PROVIDERS: Internal Medicine Interventional Cardiology; Physician Assistant; Admitting Provider Hospitalist; Emergency Provider Emergency Medicine; PCP Family Medicine; Visit Provider Internal Medicine
DX: I48.91 Unspecified atrial fibrillation (principal); I31.3 Pericardial effusion (noninflammatory); Z68.41 Body mass index [BMI] 40.0-44.9, adult; R79.89 Other specified abnormal findings of blood chemistry; I48.3 Typical atrial flutter; J44.9 Chronic obstructive pulmonary disease, unspecified; I44.0 Atrioventricular block, first degree; I10 Essential (primary) hypertension; E78.00 Pure hypercholesterolemia, unspecified; E78.5 Hyperlipidemia, unspecified; F32.9 Major depressive disorder, single episode, unspecified; F41.9 Anxiety disorder, unspecified; G47.33 Obstructive sleep apnea (adult) (pediatric); E61.1 Iron deficiency; D64.9 Anemia, unspecified; E66.01 Morbid (severe) obesity due to excess calories; I27.21 Secondary pulmonary arterial hypertension; K21.9 Gastro-esophageal reflux disease without esophagitis; E05.90 Thyrotoxicosis, unspecified without thyrotoxic crisis or storm; K44.9 Diaphragmatic hernia without obstruction or gangrene; M19.90 Unspecified osteoarthritis, unspecified site; G43.909 Migraine, unspecified, not intractable, without status migrainosus; Z86.711 Personal history of pulmonary embolism; Z79.899 Other long term (current) drug therapy; Z79.01 Long term (current) use of anticoagulants; Z87.01 Personal history of pneumonia (recurrent)
CPT/HCPCS: 36415; 71045; 71275; 78452; 80048; 83735; 84443; 84484; 85025; 85379; 85610; 85730; 87040; 87426; 93005; 93017; 93306; 94640; 97162; 97166; 99251; 99285; A9500; J7030; Q9967; A4216; G0463; J2405; J2785

== ENCOUNTER → 2021-07-17 15:48 | Outpatient (CLI) | payer MEDICAID, SELFPAY ==
[2021-07-17 18:49] LABS: BNP,B-Type NATRIURETIC PEPTIDE 75.2 pg/mL (0-100)
== END ==
PROVIDERS: PCP Family Medicine; Referring Provider Internal Medicine Pulmonary Disease; Visit Provider Internal Medicine Pulmonary Disease
DX: M79.89 Other specified soft tissue disorders (principal); R60.9 Edema, unspecified
CPT/HCPCS: 36415; 83880

== ENCOUNTER 2021-09-03 08:59 | Outpatient (CLI) | payer MEDICAID, SELFPAY ==
[2021-09-03 10:20] LABS: Erythrocyte Sedimentation Rate 25 mm/hr (0-30)
[2021-09-03 13:20] LABS: ALB/GLOB Ratio 0.9 RATIO (0.9-2.4); AST(SGOT) 18 U/L (15-37); Alanine Aminotransfer ALT/SGPT 28 U/L (13-56); Albumin, Serum 3.5 g/dL (3.2-5.0); Alkaline Phosphatase 96 U/L (45-117); Anion Gap 8 (5-15); BUN 22 mg/dL (7-18); BUN/Creat Ratio 20.2 RATIO (10-20); CRP, High Sensitivity Cardiac 4.24 mg/L; Chloride 106 mmol/L (98-107); Cholesterol 239 mg/dL (200); Creatinine, Serum 1.09 mg/dL (0.55-1.02); EST Glomerular Filtration Rate 56 mL/min (>60); Est Glom Filt Rate - Afr Amer 68 mL/min (>60); Glucose 106 mg/dL (74-106); High Density Lipoprotein 63 mg/dL; Protein, Total 7.5 g/dL (6.4-8.2); Rheumatoid Factor < 10.0 IU/mL (<15); Sodium Level 138 mmol/L (136-145); Triglycerides 341 mg/dL; Very Low Density Lipoprotein 68 mg/dL (5-40)
[2021-09-04 17:32] LABS: ANTINUCLEAR ANTIBODIES DIRECT Positive (Negative); Anti-dsDNA Ab 32 IU/mL (0-9)
== END 2021-09-03 23:59 | disposition short-term general hospital (02) ==
PROVIDERS: PCP Family Medicine; Referring Provider Family Medicine; Visit Provider Family Medicine
DX: I10 Essential (primary) hypertension (principal); M19.90 Unspecified osteoarthritis, unspecified site
CPT/HCPCS: 36415; 80053; 80061; 85652; 86038; 86141; 86225; 86431

== ENCOUNTER 2021-09-11 12:30 | Outpatient (RCR) | payer MEDICAID, SELFPAY ==
--- NOTE | 2021-08-08 15:29 | HP.PTEVAL_ITS ---
Patient's Visit Information NEYMAR SHEPHERD is a 50 year old F referred to Physical Therapy by SAEID Lopez with a diagnosis of Bilateral Knee Pain. Date of Evaluation: 08/08/21 Physical Therapist: Reina Archer DPT - Visit Plan Frequency: 2x /Week Duration: 4 Weeks Plan: Aquatic- focus on LE and core strength/stabilization with functional mobility. - Subjective Patient reports that she has had knee pain for years- about 2 weeks ago she noticed that they would wake her up at night. She has flat foot and some grinding so she needs to strengthen her quad muscles. Day to day its different which one hurts worse. Pain is located around the whole thing. X-rays show OA but wants her to get tested for RA. Worst: 7/10 Agg: standing, rain Best:0/10 Eases: getting off of them and ice. Describes the pain as sharp/shooting or dul l and achy. When the rain happens she aches from head to toe. They did not do any injections in her knees but they said that she could have them if she wanted them. No loss or change in bowel or bladder. The knees do buckle or give way under her sometimes. No AD. Does have lumbar spine issues- within the last 2 months- epideral- leg still goes numb sometimes but the pain is gone. Does have stairs at home and can do them but they bother her. Work: does not work due to the pain- did work at [employer] but can't stand for that long. Sleep: wakes her up- side sleeper. PMHx/Meds: no change since saw MD. - Objective Posture: FH, RS- can correct but does not maintain. Gait: no significant deviation noted. HR/TR: able reports pulling with TR. SLS: weight shift but does not SLS. Observation: no edema noted. Palpation: not tender to touch. ROM: 0-125 degrees. Strength: Core: POOR Hip: 4+/5 throughout, Knee: 4-/5 with pain, ankle: 5/5. Flex: HS: severe, Gastroc: moderate. Special Test: Kathy: positive Slump: positive. Stairs: recip with poor control- uses bilateral HR - Balance/Special Test Scores Lower Extremity Functional Score: 49 TUG Test Time Seconds: 9.8 30 Second Chair Rise Test Seconds: 7 - Goals Goal 1:: Patient will be I with HEP and progression Goal Time Frame: 4-6 Weeks Goal 2:: Patient will maintain proper posture t/o tx to demo increased core s/s Goal Time Frame: 4-6 Weeks Goal 3:: Patient will demo 5/5 strength in bilateral LE Goal 4:: Patient will report functional improvement by 75% Goal Time Frame: 4-6 Weeks Goal 5:: Patient will perform 10 sit to stands in 30 sec - Rehabilitation Potential Physical Therapy Diagnosis: Patient presents with hypomobility- she has decreased pain free ROM, LE and core strength/stabilization, flex and muscular endurance leading to poor posture and increased pain with ADL's. Rehabilitation Potential: Fair - Anticipated Interventions Patient/Client Instruction: Educate patient on: Benefits of Fitness Program Therapeutic Exercise to Include: Strength training, Endurance training, Balance training, Coordination, Agility training, Body mechanics, Postural training, Flexibilty training, Gait and locomotor training, In an aquatic setting, Passive ROM, Active ROM, Dynamic Lumbar Stabilization, Scapular Strength/Stabilization For the Purpose of:: To improve muscle performance and motor function Thank you for the opportunity to evaluate your patient. For Medicare and Medicare HMO plans, please review the plan of care and approve it. It will need to be FAXED BACK to us at [phone] for Medicare purposes. For Medicare only, by signing this I certify the plan of care. Please let me know if there are questions or concerns regarding this plan of care. Physician Signature: Date:
--- NOTE | 2021-09-11 12:52 | HP.PTDCSUM_ITS ---
It has been my pleasure to treat NEYMAR SHEPHERD referred by SAEID Lopez, with the diagnosis of Bilateral Knee Pain for a total of 6 visit(s). Discharge Date: Please see the following information for a summary of their discharge status. Subjective: Patient reports that she was diagnosed with Lupus- so she has a lot more information about her pain. She goes to [place] in Oct to see an arthritis MD at that time. She reports that she is not very painful in her knees currently. RLE Pain Intensity (Out of 10): 3 LLE Pain Intensity (Out of 10): 3 % Improvement: 70 Objective/Function: Posture: FH, RS- can correct but does not maintain. Gait: no significant deviation noted. HR/TR: able reports pulling with TR. SLS: weight shift but does not SLS. Observation: no edema noted. Palpation: not tender to touch. ROM: 0-125 degrees. Strength: Core: fair Hip: 4+/5 throughout, Knee: 4+/5, ankle: 5/5. Flex: HS: severe, Gastroc: moderate. Stairs: recip with poor control- uses bilateral HR Goal 1:: Patient will be I with HEP and progression Goal Progress: Goal Met Goal 2:: Patient will maintain proper posture t/o tx to demo increased core s/s Goal Progress: Progressing Goal 3:: Patient will demo 5/5 strength in bilateral LE Goal Progress: Progressing Goal 4:: Patient will report functional improvement by 75% Goal Progress: Progressing Goal 5:: Patient will perform 10 sit to stands in 30 sec Goal Progress: Progressing Plan: Discharge to home exercise program- will follow up with arthritis MD. If there are questions or concerns regarding this patient's physical therapy, please feel free to call me at [phone]. Thank you for the referral of this patient. Sincerely, Reina Archer, DPT Balance/Gait/Functional tests - Balance/Special Test Scores Lower Extremity Functional Score: 48 TUG Test Time Seconds: 12.07 Tug Test: <20 sec.=mostly independent 30 Second Chair Rise Test Seconds: 8
== END 2021-09-12 15:25 | disposition home or self-care (01) ==
LOC: PT 12:30
PROVIDERS: PCP Family Medicine; Referring Provider Physician Assistant; Visit Provider Physician Assistant
DX: M25.561 Pain in right knee (principal); M25.562 Pain in left knee; M22.2X1 Patellofemoral disorders, right knee; M22.2X2 Patellofemoral disorders, left knee; M19.90 Unspecified osteoarthritis, unspecified site
CPT/HCPCS: 97113; 97162; 97164

== ENCOUNTER 2021-10-10 16:45 | Emergency (ER) | payer MEDICAID, SELFPAY ==
[2021-10-10 16:46] VITALS: BP 159/78; PULSE 81; RESP 16; TEMP 36; O2SAT 99; BMI 37.3
--- NOTE | 2021-10-10 16:59 | EKG12_ITS ---
Test Reason : CP Blood Pressure : / mmHG Vent. Rate : 079 BPM Atrial Rate : 079 BPM P-R Int : 188 ms QRS Dur : 096 ms QT Int : 400 ms P-R-T Axes : 065 052 022 degrees QTc Int : 458 ms Normal sinus rhythm Normal ECG Confirmed by ANTONIO DIAZ, SARAI ([id number]), online content editor SHERYL PRAJAPATI ([id number]) on 10/12/2021 10:15:26 AM Referred By: GUANACO Confirmed By:SARAI ALVAREZ MD
[2021-10-10 17:01] VITALS: BP 151/87; PULSE 75; RESP 19; O2SAT 98
--- NOTE | 2021-10-10 17:01 | ED.VIS.CHEST ---
HPI History of Present Illness Chief Complaint: Chest Pain Onset/Context/Timing Onset: Days (3) Activity at onset: activity on onset (can't remember) Timing: Continuous and Waxes and wanes Quality: Positive for - (squeezing, spasm-feeling) Location: - (lower mid-chest/epigastrium) Current Severity: Severe Maximum Severity: Severe Worsened By: Movement of Torso (bending forward & lying supine) and Breathing; Not Worsened By Exertion and Movement of Arm Relieved By: - (sitting ) Associated Symptoms: Positive for Dyspnea (a little, because sort of hurts worse to breathe) and Cough (chronic unchanged); Negative for Vomiting, Fever and Palpitations Narrative Narrative: 50-year-old female presenting with lower central chest discomfort that feels like squeezing without radiation for the past 3 days constantly, has not let up or gone away at all in that time. Today it is worse than it had been in the past 2 days. It is somewhat pleuritic. She has history of A. fib that she is treated with flecainide, she is also on prophylactic Eliquis. She denies any changes in her mild leg swelling, no asymmetry or pain in her legs. Remote history of a DVT/PE long before she was on Eliquis. No syncope or near syncope, a little short of breath because it uncomfortable to breathe with this today, but she has COPD, chronic cough, chronic minor white sputum production in the mornings that is unchanged. No GI symptoms. She also states that she had a hiatal hernia repair remotely and she is worried that she has ruined because of her alcohol intake. She drinks on average 5 or so drinks per day, usually wild [place] [address]. No known history of coronary disease. Has a routine cardiology appointment tomorrow. [facility] Medical History Alcohol abuse Allergic rhinitis Anemia Anxiety COPD (chronic obstructive pulmonary disease) Depression Essential (primary) hypertension Former smoker GERD (gastroesophageal reflux disease) Hiatal hernia History of back problems HLD (hyperlipidemia) Hyperthyroidism Iron deficiency Migraines Morbid obesity with BMI of 40.0-44.9, adult Obstructive sleep apnea Pulmonary arterial hypertension Pulmonary embolism (04/26/16) Tobacco user Home Medications cyclobenzaprine 5 mg tablet 5 mg PO TID PRN PRN 06/18/19 [History Last Taken 12/25/20] nortriptyline 50 mg capsule 50 mg PO QHS 06/18/19 [History Last Taken 12/27/20] rosuvastatin 5 mg tablet 5 mg PO DAILY 06/18/19 [History Last Taken 12/27/20] albuterol sulfate 1 - 2 puff IH Q4H PRN PRN 09/22/19 [History Last Taken 12/26/20] acetaminophen 1,000 mg PO DAILY PRN PRN 08/01/20 [History Last Taken 12/28/20 07:55] cholecalciferol (vitamin D3) 400 unit PO DAILY 08/01/20 [History Last Taken 12/27/20] folic acid 1 mg PO DAILY 08/01/20 [History Last Taken 12/27/20] levothyroxine 25 mcg PO DAILY 08/01/20 [History Last Taken 12/27/20] albuterol sulfate 2.5 mg INHALATION Q6H PRN PRN 12/28/20 [History Last Taken 12/28/20] montelukast [Singulair] 10 mg PO DAILY 12/28/20 [History Last Taken 12/27/20] multivitamin 1 tab PO DAILY MDD SUPPLEMEMT 12/28/20 [History Last Taken 12/27/20] metoprolol tartrate 25 mg PO BID #60 tab 12/30/20 [Rx Last Taken Unknown] apixaban 5 mg tablet 5 mg PO BID #60 tab 01/30/21 [Rx Last Taken Unknown] flecainide 100 mg tablet 100 mg PO BID #180 tab 02/01/21 [Rx Last Taken Unknown] losartan 50 mg-hydrochlorothiazide 12.5 mg tablet 1 tab PO DAILY tab 05/01/21 [History Last Taken Unknown] sildenafil (pulm.hypertension) 20 mg tablet 20 mg PO TID tab 05/01/21 [History Last Taken Unknown] fluticasone 500 mcg-salmeterol 50 mcg/dose blistr powdr for inhalation INHALATION 07/30/21 [History Last Taken Unknown] tiotropium bromide 2.5 mcg/actuation mist for inhalation gm INHALATION 07/30/21 [History Last Taken Unknown] dicyclomine 20 mg PO .q4-6h PRN #20 capsule 10/10/21 [Rx Last Taken Unknown] Allergy/AdvReac Type Severity Reaction Status Date / Time tramadol Allergy Intermediate GI upset Verified 10/10/21 16:45 doxycycline Allergy Hives Verified 10/10/21 16:45 hydrocodone [From Vicodin] AdvReac Itching Verified 10/10/21 16:45 Family History Mother Breast cancer Cancer lung cancer Father Cancer lung cancer Hypertension High cholesterol Surgical History H/O repair of rotator cuff History of History of cholecystectomy History of hysterectomy History of nasal surgery Social History Smoking Status: Former smoker quit date: 11/10/17 alcohol intake: current alcohol intake frequency: 3 or more drinks per day Alcohol type: hard liquor substance use type: does not use ROS ROS ED Constitutional Constitutional ED: Denies chills or fever(s) Eyes Eyes: Denies change in vision or diplopia ENT ENT ED: Denies rhinorrhea or sore throat Cardiovascular Cardiovascular: Reports chest pain and pedal edema; Denies palpitations Respiratory/Chest Respiratory/Chest: Reports as per HPI and dyspnea; Denies cough Gastrointestinal Gastrointestinal: Denies abdominal pain, diarrhea, nausea or vomiting Genitourinary Genitourinary ED: Denies dysuria or hematuria Musculoskeletal Musculoskeletal: Denies back pain or neck pain Integumentary Denies abscess or rash Neurologic Neurologic: Denies headache(s), paresthesias or weakness Psychiatric Psychiatric: Denies anxiety or suicidal thoughts EXAM Physical Exam Const Vital Signs: 10/10/21 16:46 10/10/21 17:01 10/10/21 17:02 Temperature 96.8 F L Temperature Source Oral Pulse Rate 81 75 Respiratory Rate 16 19 H Blood Pressure 159/78 H 151/87 H Blood Pressure Mean 105 108 Pulse Ox 99 98 99 Oxygen Delivery Method Room Air Room Air Room Air 10/10/21 18:04 10/10/21 18:05 Temperature Temperature Source Pulse Rate 69 71 Respiratory Rate 17 Blood Pressure 146/85 H 146/85 H Blood Pressure Mean 105 Pulse Ox 100 Oxygen Delivery Method Room Air Positive well nourished, well developed and obese General Appearance ED: well developed and NAD Nutritional Appearance: obese HEENT Reports moist mucous membranes normocephalic and atraumatic Eyes PERRL and EOMs intact bilaterally Neck full ROM and supple Resp normal respiratory effort and clear to auscultation bilaterally Cardio regular rate, regular rhythm and no murmurs Rate: Negative for tachycardic GI non-tender and non-distended Auscultation: normoactive bowel sounds Palpation: soft Back/Spine no CVA tenderness General Back: other FROM Extremity normal to inspection and no calf tenderness General Extremety ED: Yes edema; Negative for pulses abnormal or tenderness General Extremity: edema bilateral lower extremity Details: trace; Negative for pulses abnormal Neuro oriented x3, CN's II-XII intact bilaterally and no sensory deficits noted Sensorium / Orientation: awake and alert Motor Exam: strength 5/5 throughout Skin no rashes or lesions noted and no wounds Heart Score History: Slightly/Non-Suspicious ECG: Normal Age: >45 - <65 years Risk Factors: 1 or 2 Risk Factors Troponin: </= Normal Limit Score: 2 MDM MDM MDM Narrative Medical decision making narrative: Cardiac work-up is negative, including a troponin that is 14 after 3 days of continuous discomfort that has worsened. Her EKG is normal. Given this, I do not think she is having unstable angina. Initially gave her a GI cocktail, especially given her GI issues and alcohol intake, but it did not help at all. I then gave her nitroglycerin, thinking it may more quickly relieve esophageal spasm since she stated that there was a component of waxing and waning of this discomfort, however she felt a little worse after that. Therefore she was given a dose of morphine to take the edge off, and subsequently an injection of Bentyl which really helped almost completely resolve the discomfort. I discussed with her her elevated creatinine compared with her baseline. She states she recently was diagnosed with lupus based on blood work from her PCP and arthralgias she was having, and she has been referred to rheumatology and she sees them at the end of the month. I agree with her that it may be related, but at this level I do not think she needs to be admitted to the hospital. I will prescribe her dicyclomine to use as needed, and I gave her a report of her labs to take with her to her rheumatology appointment. I also agree with the patient that she should follow-up for another EGD at some point. She states she has not had one since her herniorrhaphy years ago and has not been on reflux medication, and given her alcohol intake I think that would be a reasonable idea. Lab Data Attestation: I reviewed the patient's lab results. Labs: Laboratory Results - last 24 hr 10/10/21 10/10/21 17:05 17:05 WBC 8.3 RBC 3.97 L Hgb 13.6 Hct 39.3 MCV 99.0 MCH 34.3 H MCHC 34.6 RDW Std Deviation 43.6 RDW Coeff of [place]ighton 11.9 Plt Count 140 L MPV 9.0 Immature Gran % (Auto) 0.800 Neut % (Auto) 81.9 H Lymph % (Auto) 7.3 L Grant % (Auto) 7.1 Eos % (Auto) 2.2 Baso % (Auto) 0.7 Absolute Neuts (auto) 6.8 Absolute Lymphs (auto) 0.60 L Nucleated RBC % 0 Differential Comment SCANNED Sodium 135 L Potassium 5.0 Chloride 105 Carbon Dioxide 22.0 Anion Gap 8 BUN 36 H Creatinine 2.02 H Estim Creat Clear Calc 30.50 Est GFR (MDRD) Af Amer 33 L Est GFR (MDRD) Non-Af 27 L BUN/Creatinine Ratio 17.8 Glucose 99 Calcium 9.0 Troponin I High Sens 14 Radiography Diagnostic Testing: Clinical Impression(s) from Imaging Studies Chest X-Ray 10/10/21 17:25 IMPRESSION: No acute process identified. Electronically Signed: Diony Otto MD at 17:45 EST , Discharge Plan Triage Chief Complaint: Chest Pain ED Provider: Bartolo Callejas Dx/Rx/DC Orders Clinical Impression: Chest pain, unspecified, Acute kidney injury Instructions: ED Chest Pain, Uncertain Cause Prescriptions: New dicyclomine 10 MG capsule 20 mg PO .q4-6h PRN (Reason: abdominal discomfort) Qty: 20 RF: 0 No Action rosuvastatin [Crestor] 5 mg tablet 5 mg PO DAILY RF: 0 nortriptyline 50 mg capsule 50 mg PO QHS RF: 0 cyclobenzaprine 5 mg tablet 5 mg PO TID PRN PRN (Reason: Spasms) RF: 0 sildenafil (pulm.hypertension) 20 mg tablet 20 mg PO TID RF: 0 losartan-hydrochlorothiazide 50-12.5 mg tablet 1 tab PO DAILY RF: 0 fluticasone propion-salmeterol 500-50 mcg/dose blister with device inhalation RF: 0 Spiriva Respimat 2.5 mcg/actuation mist inhalation RF: 0 albuterol sulfate 1 PUFF inhaler 1 - 2 puff IH Q4H PRN PRN (Reason: Wheezing) RF: 0 acetaminophen 500 MG tablet 1,000 mg PO DAILY PRN PRN (Reason: Pain 1-10 Or Fever) RF: 0 levothyroxine 25 MCG tablet 25 mcg PO DAILY RF: 0 folic acid 1 MG tablet 1 mg PO DAILY RF: 0 cholecalciferol (vitamin D3) 10 MCG capsule 400 unit PO DAILY RF: 0 multivitamin Tablet 1 tab PO DAILY MDD SUPPLEMEMT RF: 0 albuterol sulfate 2.5 mg /3 mL (0.083 %) solution for nebulization 2.5 mg inhalation Q6H PRN PRN (Reason: SOB) RF: 0 montelukast [Singulair] 10 mg tablet 10 mg PO DAILY RF: 0 metoprolol tartrate 25 mg tablet 25 mg PO BID Qty: 60 RF: 0 Eliquis 5 mg tablet 5 mg PO BID Qty: 60 RF: 11 flecainide 100 mg tablet 100 mg PO BID Qty: 180 RF: 3 Primary Care Provider: Didier Watkins Referrals: [facility], your [Other] - Keep Rac[facility] appointment Didier Watkins MD [Primary Care Provider] - 1 Week if not improving (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
[2021-10-10 17:02] VITALS: O2SAT 99
[2021-10-10] MEDS: Mag Hydrox/Al Hydrox/Simeth 30 ML UDC PO (17:09)
[2021-10-10 17:15] LABS: Absolute Neutrophil Count 6.8 X10^3/uL (2.0-7.7); Basophil# 0.06 X10^3/uL; Basophil% 0.7 % (0-1); Eosinophil# 0.18 X10^3/uL; Eosinophils% 2.2 % (0-5); Hematocrit 39.3 % (37-47); Hemoglobin 13.6 g/dL (12.0-15.0); Lymphocyte % 7.3 % (19-41); Mean Corp Hgb Conc 34.6 g/dL (32-36); Mean Corpuscular Hgb 34.3 pg (27.0-32.0); Monocyte# 0.59 X10^3/uL; Monocyte% 7.1 % (0-10); NRBC Flagged by Analyzer 0 % (0-5); Neutrophil # 6.77 X10^3/uL (2.7-7.7); Neutrophil % 81.9 % (47-70); POSITIVE DIFFERENTIAL YES; Platelet Count 140 K/mm3 (150-450); RBC Distribution Width CV 11.9 % (11.6-14.6); RBC Distribution Width SD 43.6 fl (35.1-43.9); Red Blood Count 3.97 M/mm3 (4.2-5.4); White Blood Count 8.3 K/mm3 (4.4-11.0)
--- NOTE | 2021-10-10 17:25 | RAD_ITS ---
STUDY: X-RAY CHEST REASON FOR EXAM: Female, 50 years old. Chest pain TECHNIQUE: Single frontal view of the chest. COMPARISON: 12/28/2020 FINDINGS: The lungs are clear and expanded. There is no demonstrated pleural abnormality. There is borderline cardiomegaly. Normal mediastinum and mayra. Normal visualized pulmonary arteries. Normal visualized aortic arch and descending thoracic aorta. Normal visualized thoracic spine. Normal visualized ribs, clavicles, and shoulders. There is no demonstrated abnormality of the visualized soft tissue structures of the upper abdomen. RAD/Chest 1 View (Portable) IMPRESSION: No acute process identified. Electronically Signed: Diony Otto MD at 17:45 EST ,
[2021-10-10 17:33] LABS: BUN 36 mg/dL (7-18); Creatinine, Serum 2.02 mg/dL (0.55-1.02); Glucose 99 mg/dL (74-106)
[2021-10-10 17:34] LABS: Anion Gap 8 (5-15); BUN/Creat Ratio 17.8 RATIO (10-20); Chloride 105 mmol/L (98-107); EST Glomerular Filtration Rate 27 mL/min (>60); Est Glom Filt Rate - Afr Amer 33 mL/min (>60); Sodium Level 135 mmol/L (136-145); Troponin-I HS 14 pg/mL (3.0-54.0)
[2021-10-10 18:04] VITALS: BP 146/85; PULSE 69
[2021-10-10 18:04] LABS: Differential Indicated SCAN CRITERIA MET
[2021-10-10] MEDS: Nitroglycerin SL (ED/IMG/CATH) 0.4 MG TABLET SL (18:04)
[2021-10-10 18:05] VITALS: BP 146/85; PULSE 71; RESP 17; O2SAT 100
[2021-10-10 18:26] LABS: Differential Comment SCANNED
[2021-10-10] MEDS: Morphine 4 MG/ML Syringe IV (18:26)
[2021-10-10] MEDS: Dicyclomine 20 MG/2 ML Vial IM (19:18)
[2021-10-10 20:45] VITALS: BP 159/70; PULSE 80; RESP 22; O2SAT 96
== END 2021-10-10 20:48 | disposition home or self-care (01) ==
PROVIDERS: Emergency Provider Emergency Medicine; PCP Family Medicine; Visit Provider Emergency Medicine
DX: N17.9 Acute kidney failure, unspecified (principal); J44.9 Chronic obstructive pulmonary disease, unspecified; I27.21 Secondary pulmonary arterial hypertension; I48.91 Unspecified atrial fibrillation; E66.01 Morbid (severe) obesity due to excess calories; I10 Essential (primary) hypertension; E78.5 Hyperlipidemia, unspecified; Z86.718 Personal history of other venous thrombosis and embolism; Z87.891 Personal history of nicotine dependence; F32.A Depression, unspecified; K21.9 Gastro-esophageal reflux disease without esophagitis; E05.90 Thyrotoxicosis, unspecified without thyrotoxic crisis or storm; G47.33 Obstructive sleep apnea (adult) (pediatric); Z86.711 Personal history of pulmonary embolism; Z79.899 Other long term (current) drug therapy; Z79.01 Long term (current) use of anticoagulants; F41.9 Anxiety disorder, unspecified; G43.909 Migraine, unspecified, not intractable, without status migrainosus; Z68.37 Body mass index [BMI] 37.0-37.9, adult
CPT/HCPCS: 71045; 80048; 84484; 85025; 93005; 96372; 96374; 99285; A4216

== ENCOUNTER 2021-10-11 12:20 | Outpatient (CLI) | payer MEDICAID, SELFPAY ==
[2021-10-11 15:19] LABS: D-Dimer Quantitative (DVT/PE) 0.29 FEU/ug/m (0.27-0.49)
[2021-10-11 15:35] LABS: Anion Gap 10 (5-15); BUN 36 mg/dL (7-18); BUN/Creat Ratio 23.1 RATIO (10-20); Calcium,Total 8.9 mg/dL (8.5-10.1); Chloride 106 mmol/L (98-107); Creatinine, Serum 1.56 mg/dL (0.55-1.02); EST Glomerular Filtration Rate 37 mL/min (>60); Est Glom Filt Rate - Afr Amer 45 mL/min (>60); Glucose 109 mg/dL (74-106); Potassium 4.5 mmol/L (3.5-5.1); Sodium Level 134 mmol/L (136-145)
== END 2021-10-11 23:59 | disposition home or self-care (01) ==
LOC: MFPLAB 12:21
PROVIDERS: PCP Family Medicine; Referring Provider Family Medicine; Visit Provider Family Medicine
DX: I26.99 Other pulmonary embolism without acute cor pulmonale (principal); N19 Unspecified kidney failure
CPT/HCPCS: 36415; 80048; 85379

== ENCOUNTER 2022-01-02 06:19 | Day surgery (SDC) | payer MEDICAID, SELFPAY ==
--- NOTE | 2022-01-02 | COLBX_PTH ---
PATIENT: NEYMAR SHEPHERD LOC: EN U#:[id number] AGE/SX: 51/F ROOM: RE01/02/[address]: Dr. Nick Tuttle DO : 1970 BED: DIS: 01/02/2022 SPEC #: [id number] RECD: 01/02/22 13:11 STATUS: DEMETRIUS RA #: [id number] TOO: 01/02/22 00:[address]: Nick Tuttle DEPT: SURGICAL PATHOLOGY RECD BY: Emir Alanis ENTERED: 01/03/22 07:58 SP TYPE: COLON BX OTHR DR: Dr. Didier Watkins, MD Didier Watkins Tissues: A - Duodenum, NOS B - Gastric mucous membrane C - Esophageal mucous membrane D - Sigmoid colon biopsy E - Rectum, NOS Procedures: Special Stain Group II Surgery Specimen Level IV Alcian Blue/PAS (control) HEADER OPERATION: Colonoscopy, EGD ([facility]) PRE-OP DIAGNOSIS: GERD, Esophageal spasm TISSUE SUBMITTED: A ? Duodenum Biopsy, B - Gastric Body Biopsy, C - Distal Esophagus Biopsy, D ? Sigmoid biopsy, E - Rectal polyp MICROSCOPIC DIAGNOSIS A. Duodenum, biopsy: Fragments of duodenal mucosa with mild Tr gland hyperplasia. B. Gastric body, biopsy: Mild gastritis. See microscopic description and comment. C. Distal esophagus, biopsy: Fragments of gastroesophageal mucosa with mild chronic inflammation. Intestinal metaplasia (goblet cell metaplasia) not identified. See comment. D. Sigmoid, biopsy: Fragments of colonic mucosa, no pathologic diagnosis. E. Rectal polyp, biopsy: Tubular adenoma. SJ:allie 01/04/2022 COMMENT B. The results of immunohistochemistry for Helicobacter pylori will be reported separately ([id number]). C. Alcian blue/PAS stain with matched control is used in the evaluation of the specimen. MICROSCOPIC DESCRIPTION Slides are reviewed. B. The specimen shows fragments of gastric mucosa with chronic inflammatory cell infiltrates in the lamina propria consisting of lymphocytes and plasma cells, consistent with mild chronic gastritis. GROSS DESCRIPTION A - Received in fixative is one container labeled with the patient's name and designated duodenum biopsy. The specimen consists of multiple irregular fragments of light cloud soft tissue that in aggregate measure 1 x 0.3 x 0.1 cm. The specimen is totally submitted in one cassette. B - Received in fixative is one container labeled with the patient's name and designated gastric body biopsy. The specimen consists of multiple irregular fragments of light cloud soft tissue that in aggregate measure 0.8 x 0.5 x 0.1 cm. The specimen is totally submitted in one cassette. C - Received in fixative is one container labeled with the patient's name and designated distal esophagus biopsy. The specimen consists of multiple irregular fragments of light cloud soft tissue that in aggregate measure 1 x 0.3 x 0.1 cm. The specimen is totally submitted in one cassette. D - Received in fixative is one container labeled with the patient's name and designated sigmoid biopsy. The specimen consists of two irregular fragments of light cloud soft tissue that in aggregate measure 0.7 x 0.4 x 0.1 cm. The specimen is totally submitted in one cassette. E - Received in fixative is one container labeled with the patient's name and designated rectal polyp. The specimen consists of multiple irregular fragments of light cloud soft tissue that in aggregate measure 0.5 x 0.5 x 0.1 cm. The specimen is totally submitted in one cassette. / SJ:rg 01/03/2022 TC:1 [facility]: [id number] [id number], [id number]
[2022-01-02 06:46] VITALS: BP 147/90; PULSE 88; RESP 18; TEMP 36.4; O2SAT 95; BMI 35.9
--- NOTE | 2022-01-02 07:30 | IMM_PTH ---
PATIENT: NEYMAR SHEPHERD LOC: EN U#:[id number] AGE/SX: 51/F ROOM: RE01/02/[address]: Dr. Nick Tuttle DO : 1970 BED: DIS: 01/02/2022 SPEC #: [id number] RECD: 01/02/22 13:11 STATUS: DEMETRIUS RA #: [id number] TOO: 01/02/22 07:[address]: Nick Tuttle DEPT: IMMUNOHISTOCHEMISTRY RECD BY: Carrie Alvarez ENTERED: 01/03/22 08:17 SP TYPE: IMMUNO OTHR DR: MD Didier Cruz Tissues: Gastric mucous membrane Procedures: H Pylori (initial) PHYSICIAN & INSTITUTION [place] [id number] SPECIMEN INFORMATION: Tissue Source: Gastric Body Biopsy Clinical Info: GERD Specimen Number: [id number] CPT code: 49220 METHODOLOGY: Deparaffinized sections of prefer/formalin-fixed tissue or PAP/DQ stained slides are incubated with monoclonal/polyclonal antibodies/oligonucleotide probes. Localization is made via biotin free immunoperoxidase method. Appropriate controls are performed and reacted as expected. Results on target cell population are indicated in the following table: RESULTS: ANTIBODY / CLONE RESULT Block B H Pylori (polyclonal) negative These tests were developed and their performance characteristics determined by [facility]. They may not have been cleared or approved by the U.S. Food and Drug Administration. The FDA has determined that such clearance or approval is not necessary. The above immunohistochemical/dualISH markers are ordered and reviewed by the Pathologist. INTERPRETATION: Gastric body, biopsy: Negative for Helicobacter pylori organisms. SJ:allie 01/04/2022
--- NOTE | 2022-01-02 07:32 | PCM.HP.BLA ---
History and Physical Date of Admission: 01/02/22 DEE SHEPHERD, is a 51 F who presents to the office today for Follow up visit. Dee established with this clinic 10.25.21 following presentation to [facility] ED 10.10.21 for chest pain. She has a history of alcoholism with [place] consumption. Severe hiatal hernia Valentin and Mat (states entire stomach in chest) at [facility] with Dr. Burr in bariatric surgery 01.18.2021. Cholecystectomy 2019 with liver biopsy performed at that time diagnosing fatty liver. Lupus recently diagnosed and sees nitrocellulose maker Dr. Moncada in [place] who feels this may be related to alcoholism as opposed to lupus. Plan last visit 10.25.21: Esophageal spasm, fatty liver, alcohol abuse, GERD ? focus on GERD and esophageal spasm at this time. Continue dicyclomine 20mg TID PRN, protonix 40mg QD, increase PRN nortriptyline for insomnia to routine. Recommend EGD and colonoscopy. Procedures scheduled for January 02. Reports that she is doing really well since last visit. Reflux has dissipated since Valentin and Mat. She continues with protonix 40mg QD but has not required dicyclomine or nortriptyline for esophageal spasms. Denies issues with swallowing or choking. Recently diagnosed with osteoarthritis being managed with Tylenol, CBD and warm showers. Also having difficulty with BLE vascular difficulties that are being evaluated with ultrasound soon. ROS Const Constitutional: No anorexia, fatigue, fever(s), weight change or sleep problems Eyes Eyes: No change in vision ENT ENT: No abnormal hearing, difficulty swallowing, mouth lesions, tongue swelling or throat swelling Resp Respiratory: No cough or shortness of breath Cardio Cardiology: No chest pain at rest, chest pain with exertion, shortness of breath or dyspnea on exertion Gastro GI: No difficulty swallowing Genitourinary-Female: No difficulty urinating or burning urination Musc Musculoskeletal: No joint pain, joint swelling, muscle weakness or decreased muscle mass Skin Skin: No hair loss in leg, yellowing of the eye, itchy eyes, rash, skin ulcer or skin swelling Neuro Neurology: No abnormal hearing, abnormal movements, confusion, unsteady gait/balance or memory loss Psych Psychiatric: No anxiety, No confusion and No memory loss Endo Endocrine: No fatigue or weight change Aller/Imm Allergy/Immunologic: No itchy eyes, throat swelling or tongue swelling Omega/Lymp Hematologic/Lymphatic: No easy bleeding, easy bruising or enlarged lymph nodes Exam Const General: cooperative and comfortable Nutritional Appearance: average body habitus and well nourished [facility] Head: normal to inspection Ears: hearing grossly normal bilaterally Nose: external nose normal Face and sinus: normal facial exam Mouth: oral mucosae normal Throat: posterior oropharynx normal Eyes General: appearance normal, both eyes and all related structures Neck Neck: normal visual inspection Chest Chest palpation & inspection: normal inspection of the chest and normal palpation of entire chest wall Resp Effort & Inspection: normal respiratory effort Auscultation: Bilateral: Clear to Auscultation Cardio Palpation: normal PMI Rate: regular rate Rhythm: regular rhythm GI Inspection: normal to inspection Auscultation: normal bowel sounds Percussion: normal to percussion Palpation: no hepatosplenomegaly Skin General: no rashes or lesions noted Neuro General: patient alert Extrem General: normal to inspection Psych Affect: normal affect Quality Reporting Tobacco Screening ([facility] 138) Smoking Status: Former smoker Assessment and Plan Assessment and Plan (1) Fatty liver: Status: Acute Plan - Dr. Romero Friend, DO: We will institute a work-up regarding her alcoholic fatty liver disease. She does not have any signs of fibrosis or pending cirrhosis. She has severe lung disease in the form of COPD and pulm hypertension. She also has a history of CAD, atrial fibrillation and cardiomyopathy. We will get biochemical testing along with a FibroScan. She was encouraged not to drink any alcohol or ingest any Tylenol products. At this time I do not think she has cirrhosis however work-up is in progress. (2) GERD (gastroesophageal reflux disease): Status: Acute Qualifiers: Esophagitis presence: esophagitis presence not specified Qualified Code(s): K21.9 - Gastro-esophageal reflux disease without esophagitis Plan - Dr. Nick Tuttle, DO: Signs of reflux disease at this time. We will continue PPI therapy. (3) Esophageal spasm: Status: Acute Plan - Dr. Nick Tuttle, DO: Dicyclomine and morphine. She has only had to take 3 doses of dicyclomine. We will continue that on a as needed basis. She already takes nortriptyline which also is one of the treatments for esophageal spasm. (4) Alcohol abuse: Status: Chronic Plan - Dr. Nick Friend, DO: She was told that she has not any alcohol in that any dosage due to her already diagnosis of fatty liver disease secondary to alcohol. She will need repeat imaging in approximately 4 months along with ammonia and alpha-fetoprotein testing. Whom she undergoes an upper and lower endoscopy we were able to see if she has any signs of gastropathy or any other changes specific for chronic liver disease seen in the upper GI tract. I have re-examined the patient. There are no clinical changes since date of exam.
[2022-01-02 08:17] VITALS: BP 112/73; BP 147/90; PULSE 85; RESP 18; TEMP 36.2; O2SAT 97
--- NOTE | 2022-01-02 08:19 | OP.EGD_ITS ---
Patient Name: Dee Barroso Procedure Date: 01/02/2022 7:40 AM Date of : 1970 Age: 51 Procedure: Upper GI endoscopy Indications: Epigastric abdominal pain, Functional Dyspepsia Providers: Nick Tuttle DO Referring MD: Didier Watkins Medicines: Monitored Anesthesia Care Patient Profile: This is a 51 year old female. Refer to note in patient chart for documentation of history and physical. Patient has symptoms. Complications: No immediate complications. Procedure: Pre-Anesthesia Assessment: - Prior to the procedure, a History and Physical was performed, and patient medications and allergies were reviewed. The risks and benefits of the procedure and the sedation options and risks were discussed with the patient. All questions were answered and informed consent was obtained. Patient identification and proposed procedure were verified by the physician in the pre-procedure area. Mental Status Examination: alert and oriented. Airway Examination: normal oropharyngeal airway and neck mobility. Respiratory Examination: clear to auscultation. CV Examination: normal. Prophylactic Antibiotics: The patient does not require prophylactic antibiotics. Prior Anticoagulants: The patient has taken no previous anticoagulant or antiplatelet agents. ASA Grade Assessment: II - A patient with mild systemic disease. After reviewing the risks and benefits, the patient was deemed in satisfactory condition to undergo the procedure. The anesthesia plan was to use moderate sedation / analgesia (conscious sedation). Immediately prior to administration of medications, the patient was re-assessed for adequacy to receive sedatives. The heart rate, respiratory rate, oxygen saturations, blood pressure, adequacy of pulmonary ventilation, and response to care were monitored throughout the procedure. The physical status of the patient was re-assessed after the procedure. After obtaining informed consent, the endoscope was passed under direct vision. Throughout the procedure, the patient's blood pressure, pulse, and oxygen saturations were monitored continuously. The gastroscope was introduced through the mouth, and advanced to the second part of duodenum. The upper GI endoscopy was accomplished without difficulty. The patient tolerated the procedure well. Scope In: 7:41:57 AM Scope Out: 7:51:36 AM Total Procedure Duration Time 0 hours 9 minutes 39 seconds Findings: LA Grade A (one or more mucosal breaks less than 5 mm, not extending between tops of 2 mucosal folds) esophagitis with no bleeding was found 37 to 40 cm from the incisors. Biopsies were taken with a cold forceps for histology. Verification of patient identification for the specimen was done. Estimated blood loss was minimal. Patchy mildly erythematous mucosa without bleeding was found in the gastric body. Biopsies were taken with a cold forceps for histology. Verification of patient identification for the specimen was done. Estimated blood loss was minimal. Patchy mildly erythematous mucosa without active bleeding and with no stigmata of bleeding was found in the duodenal bulb. Biopsies were taken with a cold forceps for histology. Verification of patient identification for the specimen was done. Estimated blood loss was minimal. Impression: - LA Grade A reflux esophagitis. Biopsied. - Erythematous mucosa in the gastric body. Biopsied. - Normal second portion of the duodenum. Biopsied. Recommendation: - Discharge patient to home. - Resume previous diet. - Continue present medications. - Await pathology results. - Repeat upper endoscopy in 1 year for surveillance based on pathology results. - Return to GI office. Procedure Code(s): --- Professional --- 45553, Esophagogastroduodenoscopy, flexible, transoral; with biopsy, single or multiple CPT copyright 2017 [employer]. All rights reserved. The codes documented in this report are preliminary and upon meat grinder review may be revised to meet current compliance requirements. Nick Tuttle DO 01/02/2022 8:19:21 AM This report has been signed electronically. Number of Addenda: 1 Note Initiated On: 01/02/2022 7:40 AM Addendum Number: 1 Addendum Date: 05/31/2022 6:33:00 AM MAC was used as sedation for this procedure. Nick Tuttle DO 05/31/2022 6:33:05 AM This report has been signed electronically.
[2022-01-02 08:20] VITALS: BP 117/57; BP 147/90; PULSE 83; RESP 16; O2SAT 96
--- NOTE | 2022-01-02 08:20 | OP.CCLET_ITS ---
05/31/2022 Didier Watkins MD [address] [id number] Re : Upper GI endoscopy procedure for Dee Dharmesh Dear Dr. Watkins This procedure was performed on Sunday, January 02, 2022. My impressions and recommendations are as follows: Impressions : - LA Grade A reflux esophagitis. Biopsied. - Erythematous mucosa in the gastric body. Biopsied. - Normal second portion of the duodenum. Biopsied. Recommendations : - Discharge patient to home. - Resume previous diet. - Continue present medications. - Await pathology results. - Repeat upper endoscopy in 1 year for surveillance based on pathology results. - Return to GI office. My findings are described in the full procedure note, which is enclosed. If I can be of further assistance, please feel free to contact me at . Sincerely, Nick Tuttle, 01/02/2022 8:19:21 AM This report has been signed electronically.
[2022-01-02 08:25] VITALS: BP 113/66; BP 147/90; PULSE 81; RESP 16; O2SAT 98
--- NOTE | 2022-01-02 08:26 | OP.COLON_ITS ---
Patient Name: Dee Barroso Procedure Date: 01/02/2022 7:51 AM Date of : 1970 Age: 51 Procedure: Colonoscopy Indications: Screening for colorectal malignant neoplasm Providers: Nick Tuttle DO Referring MD: Didier Watkins Medicines: Monitored Anesthesia Care Patient Profile: This is a 51 year old female. Refer to note in patient chart for documentation of history and physical. Patient has symptoms. Last Colonoscopy: 5 years ago. Complications: No immediate complications. Procedure: Pre-Anesthesia Assessment: - Prior to the procedure, a History and Physical was performed, and patient medications and allergies were reviewed. The risks and benefits of the procedure and the sedation options and risks were discussed with the patient. All questions were answered and informed consent was obtained. Patient identification and proposed procedure were verified by the physician in the pre-procedure area. Mental Status Examination: alert and oriented. Airway Examination: normal oropharyngeal airway and neck mobility. Respiratory Examination: clear to auscultation. CV Examination: normal. Prophylactic Antibiotics: The patient does not require prophylactic antibiotics. Prior Anticoagulants: The patient has taken no previous anticoagulant or antiplatelet agents. ASA Grade Assessment: II - A patient with mild systemic disease. After reviewing the risks and benefits, the patient was deemed in satisfactory condition to undergo the procedure. The anesthesia plan was to use moderate sedation / analgesia (conscious sedation). Immediately prior to administration of medications, the patient was re-assessed for adequacy to receive sedatives. The heart rate, respiratory rate, oxygen saturations, blood pressure, adequacy of pulmonary ventilation, and response to care were monitored throughout the procedure. The physical status of the patient was re-assessed after the procedure. After I obtained informed consent, the scope was passed under direct vision. Throughout the procedure, the patient's blood pressure, pulse, and oxygen saturations were monitored continuously. The Colonoscope was introduced through the anus and advanced to the terminal ileum. The colonoscopy was performed without difficulty. The patient tolerated the procedure well. The quality of the bowel preparation was good. Moderate Sedation: Moderate (conscious) sedation was administered by the endoscopy nurse and supervised by the endoscopist. The patient's oxygen saturation, heart rate, blood pressure and response to care were monitored. Total physician intraservice time was 15 minutes. Scope In: 7:54:46 AM Scope Withdrawal Time 0 hours 6 minutes 9 seconds Scope Out: 8:11:05 AM Total Procedure Duration Time 0 hours 16 minutes 19 seconds Findings: Hemorrhoids were found on perianal exam. A 5 mm polyp was found in the rectum sigmoid colon. The polyp was sessile. The polyp was removed with a cold snare. Resection and retrieval were complete. Verification of patient identification for the specimen was done. Estimated blood loss was minimal. Multiple small and large-mouthed diverticula were found in the recto-sigmoid colon, sigmoid colon and descending colon. Localized mild inflammation characterized by congestion (edema) and erosions was found in the sigmoid colon. Biopsies were taken with a cold forceps for histology. Verification of patient identification for the specimen was done. Estimated blood loss was minimal. Impression: - Hemorrhoids found on perianal exam. - One 5 mm polyp in the rectum in the sigmoid colon, removed with a cold snare. Resected and retrieved. - Diverticulosis in the recto-sigmoid colon, in the sigmoid colon and in the descending colon. - Localized mild inflammation was found in the sigmoid colon secondary to colitis. Biopsied. Recommendation: - Discharge patient to home. - Resume previous diet. - Continue present medications. - Await pathology results. - Repeat colonoscopy in 5 years for surveillance based on pathology results. - Return to GI office. Procedure Code(s): --- Professional --- 94391, Colonoscopy, flexible; with removal of tumor(s), polyp(s), or other lesion(s) by snare technique 05962, 59, Colonoscopy, flexible; with biopsy, single or multiple G0500, Moderate sedation services provided by the same physician or other qualified health child care worker performing a gastrointestinal endoscopic service that sedation supports, requiring the presence of an independent trained observer to assist in the monitoring of the patient's level of consciousness and physiological status; initial 15 minutes of intra-service time; patient age 5 years or older (additional time may be reported with 90838, as appropriate) CPT copyright 2017 [employer]. All rights reserved. The codes documented in this report are preliminary and upon spray machine operator review may be revised to meet current compliance requirements. Nick Tuttle DO 01/02/2022 8:26:24 AM This report has been signed electronically. Number of Addenda: 1 Note Initiated On: 01/02/2022 7:51 AM Addendum Number: 1 Addendum Date: 05/31/2022 6:33:13 AM MAC was used as sedation for this procedure. Nick Tuttle DO 05/31/2022 6:33:20 AM This report has been signed electronically.
--- NOTE | 2022-01-02 08:27 | OP.CCLET_ITS ---
05/31/2022 Didier Watkins MD [address] [phone] Re : Colonoscopy procedure for Dee Dharmesh Dear Dr. Watkins This procedure was performed on Sunday, January 02, 2022. My impressions and recommendations are as follows: Impressions : - Hemorrhoids found on perianal exam. - One 5 mm polyp in the rectum in the sigmoid colon, removed with a cold snare. Resected and retrieved. - Diverticulosis in the recto-sigmoid colon, in the sigmoid colon and in the descending colon. - Localized mild inflammation was found in the sigmoid colon secondary to colitis. Biopsied. Recommendations : - Discharge patient to home. - Resume previous diet. - Continue present medications. - Await pathology results. - Repeat colonoscopy in 5 years for surveillance based on pathology results. - Return to GI office. My findings are described in the full procedure note, which is enclosed. If I can be of further assistance, please feel free to contact me at . Sincerely, Nick Tuttle, 01/02/2022 8:26:24 AM This report has been signed electronically.
[2022-01-02 08:48] VITALS: BP 147/90
== END 2022-01-02 08:50 | disposition home or self-care (01) ==
LOC: EN 06:20 → AC 06:21
PROVIDERS: PCP Family Medicine; Referring Provider Family Medicine; Visit Provider Internal Medicine Gastroenterology
PROC: 0DJD8ZZ Inspection of Lower Intestinal Tract, Via Natural or Artificial Opening Endoscopic (ICD-10-PCS; CPT 45378; principal; 2022-01-02 07:25)
DX: K29.70 Gastritis, unspecified, without bleeding (principal); M32.9 Systemic lupus erythematosus, unspecified; J44.9 Chronic obstructive pulmonary disease, unspecified; I27.21 Secondary pulmonary arterial hypertension; I48.92 Unspecified atrial flutter; I48.0 Paroxysmal atrial fibrillation; Z68.41 Body mass index [BMI] 40.0-44.9, adult; E66.01 Morbid (severe) obesity due to excess calories; D12.8 Benign neoplasm of rectum; K76.0 Fatty (change of) liver, not elsewhere classified; K21.00 Gastro-esophageal reflux disease with esophagitis, without bleeding; F10.10 Alcohol abuse, uncomplicated; I10 Essential (primary) hypertension; E78.5 Hyperlipidemia, unspecified; Z79.01 Long term (current) use of anticoagulants; Z79.899 Other long term (current) drug therapy; G47.33 Obstructive sleep apnea (adult) (pediatric); F41.9 Anxiety disorder, unspecified; E05.90 Thyrotoxicosis, unspecified without thyrotoxic crisis or storm; G43.909 Migraine, unspecified, not intractable, without status migrainosus; K57.30 Diverticulosis of large intestine without perforation or abscess without bleeding; K64.9 Unspecified hemorrhoids; K52.9 Noninfective gastroenteritis and colitis, unspecified
CPT/HCPCS: 45385; 45380; 43239; 87426; 88305; 88313; 88342; J7120; J2405

== ENCOUNTER 2022-01-20 17:16 | Observation (INO) | payer MEDICAID, SELFPAY ==
[2022-01-20 17:17] VITALS: BP 181/104; PULSE 81; RESP 16; TEMP 36.5; O2SAT 97; BMI 37.3
[2022-01-20 18:30] VITALS: BP 184/116; PULSE 84; RESP 16; O2SAT 94
--- NOTE | 2022-01-20 18:35 | EKG12_ITS ---
Test Reason : DYSRYTHMIA Blood Pressure : / mmHG Vent. Rate : 075 BPM Atrial Rate : 075 BPM P-R Int : 202 ms QRS Dur : 096 ms QT Int : 392 ms P-R-T Axes : 066 053 028 degrees QTc Int : 437 ms Normal sinus rhythm Normal ECG Confirmed by PHAN DIAZ, NIKOLAS ([id number]), content editor SHERYL PRAJAPATI ([id number]) on 01/22/2022 7:18:03 AM Referred By: ROULA Confirmed By:NIKOLAS CHISHOLM MD
[2022-01-20 19:12] LABS: Absolute Neutrophil Count 5.8 X10^3/uL (2.0-7.7); Basophil# 0.06 X10^3/uL; Basophil% 0.8 % (0-1); Eosinophil# 0.22 X10^3/uL; Hematocrit 36.7 % (37-47); Hemoglobin 12.1 g/dL (12.0-15.0); Lymphocyte % 8.1 % (19-41); Mean Corpuscular Hgb 33.2 pg (27.0-32.0); Mean Corpuscular Volume 100.8 fL (81-99); Mean Platelet Vol. 9.3 fl (6.2-12.0); Monocyte# 0.58 X10^3/uL; Monocyte% 7.9 % (0-10); NRBC Flagged by Analyzer 0 % (0-5); Neutrophil # 5.83 X10^3/uL (2.7-7.7); Neutrophil % 79.1 % (47-70); POSITIVE DIFFERENTIAL YES; Platelet Count 156 K/mm3 (150-450); RBC Distribution Width CV 12.6 % (11.6-14.6); Red Blood Count 3.64 M/mm3 (4.2-5.4); White Blood Count 7.4 K/mm3 (4.4-11.0)
[2022-01-20 19:25] LABS: International Normalized Ratio 1.1; Prothrombin Time (Protime)PT. 14.2 SECONDS (11.7-14.9)
[2022-01-20 19:29] LABS: Differential Indicated SCAN CRITERIA MET
[2022-01-20 19:36] LABS: AST(SGOT) 23 U/L (15-37); Alanine Aminotransfer ALT/SGPT 30 U/L (13-56); Albumin, Serum 3.5 g/dL (3.2-5.0); Alkaline Phosphatase 102 U/L (45-117); Anion Gap 6 (5-15); BUN 30 mg/dL (7-18); BUN/Creat Ratio 18.9 RATIO (10-20); Bilirubin, Direct 0.21 mg/dL (0.00-0.30); Calcium,Total 8.9 mg/dL (8.5-10.1); Chloride 109 mmol/L (98-107); Creatinine, Serum 1.59 mg/dL (0.55-1.02); EST Glomerular Filtration Rate 36 mL/min (>60); Est Glom Filt Rate - Afr Amer 44 mL/min (>60); Estimated Creatinine Clearance 38.31 ml/min; Glucose 112 mg/dL (74-106); Lipase 108 U/L (73-393); Potassium 4.8 mmol/L (3.5-5.1); Protein, Total 7.5 g/dL (6.4-8.2); Sodium Level 137 mmol/L (136-145)
--- NOTE | 2022-01-20 20:07 | EX.ED.DYSGE1 ---
HPI History of Present Illness Chief Complaint: Lower Extremity Injury Narrative Narrative: Patient is here with 2 complaints her first complaint is her legs continue to turn blue this is chronic she has seen vascular surgery for this and had a normal work-up last month without any evidence of peripheral vascular disease. Her second complaint is alcoholism, she stopped drinking yesterday and wants detox. She says she will shake but has not had seizures in the past. [facility] Medical History Alcohol abuse Alcohol use Allergic rhinitis Anemia Anxiety Atrial fibrillation with rapid ventricular response Bilateral knee pain Cardiology follow-up encounter Chest pain COPD (chronic obstructive pulmonary disease) CPAP (continuous positive airway pressure) dependence Depression DVT (deep venous thrombosis) Esophageal spasm Essential (primary) hypertension Fatty liver Former smoker Former smoker GERD (gastroesophageal reflux disease) Hiatal hernia History of back problems History of echocardiogram History of edema History of pain when walking History of stress test HLD (hyperlipidemia) Hyperthyroidism Hypomagnesemia Iron deficiency Migraines Morbid obesity with BMI of 40.0-44.9, adult Obstructive sleep apnea Osteoarthritis Patellofemoral syndrome of both knees Pulmonary arterial hypertension Pulmonary embolism (04/26/16) Secondary pulmonary arterial hypertension Tobacco user Tubular adenoma of colon Home Medications cyclobenzaprine 5 mg tablet 5 mg PO TID PRN PRN 06/18/19 [History Last Taken 01/19/22] nortriptyline 50 mg capsule 50 mg PO QHS PRN PRN 06/18/19 [History Last Taken 01/19/22] rosuvastatin 5 mg tablet 10 mg PO DAILY 06/18/19 [History Last Taken 01/19/22] acetaminophen 1,000 mg PO DAILY PRN PRN 08/01/20 [History Last Taken 01/19/22] cholecalciferol (vitamin D3) 4,000 unit PO DAILY 08/01/20 [History Last Taken 01/19/22] folic acid 1 mg PO DAILY 08/01/20 [History Last Taken 01/19/22] levothyroxine 25 mcg PO DAILY 08/01/20 [History Last Taken 01/19/22] montelukast [Singulair] 10 mg PO DAILY 12/28/20 [History Last Taken 01/19/22] multivitamin 1 tab PO DAILY MDD SUPPLEMEMT 12/28/20 [History Last Taken 01/19/22] metoprolol tartrate 25 mg PO BID #60 tab 12/30/20 [Rx Last Taken 01/19/22] losartan 50 mg-hydrochlorothiazide 12.5 mg tablet 1 tab PO DAILY tab 05/01/21 [History Last Taken 01/19/22] sildenafil (pulm.hypertension) 20 mg tablet 20 mg PO TID tab 05/01/21 [History Last Taken 01/19/22] flecainide 100 mg tablet 100 mg PO BID #60 tab 10/11/21 [Rx Last Taken 01/19/22] pantoprazole 40 mg tablet,delayed release 40 mg PO QAM #90 tab 10/25/21 [Rx Last Taken 01/19/22] dicyclomine 20 mg PO TID PRN 12/31/21 [History Last Taken 01/19/22] apixaban [Eliquis] 5 mg PO BID 01/20/22 [History Last Taken 01/19/22] [id number]-cqhvtuqok-lbtvoqhr [Trelegy Ellipta] 1 inh INHALATION DAILY 01/20/22 [History Last Taken 01/19/22] Allergy/AdvReac Type Severity Reaction Status Date / Time tramadol Allergy Intermediate GI upset Verified 01/20/22 17:21 doxycycline Allergy Hives Verified 01/20/22 17:21 hydrocodone [From Vicodin] AdvReac Itching Verified 01/20/22 17:21 Family History Mother Breast cancer Cancer lung cancer Father Cancer lung cancer Hypertension High cholesterol Surgical History H/O repair of rotator cuff History of History of cardiac catheterization History of cholecystectomy History of hysterectomy History of nasal surgery History of repair of hiatal hernia (12/2020) Social History Smoking Status: Former smoker quit date: 11/10/17 alcohol intake: current alcohol intake frequency: 3 or more drinks per day Alcohol type: hard liquor substance use type: does not use ROS ROS ED ROS Narrative Past medical history: Reviewed Medications: Reviewed Social history: Noncontributory Review of systems: All systems negative except as indicated General: No fever Eyes: No visual changes ENT: No upper airway congestion, normal voice Neck: No neck pain Cardiovascular: No chest pain Respiratory: No shortness of breath or cough Gastrointestinal: No abdominal pain, nausea vomiting or diarrhea Genitourinary: No dysuria Musculoskeletal: Bilateral foot pain Skin: No rash Neurological: No memory loss, confusion or any focal weakness Psych: No recent behavioral changes Hematologic: No easy bleeding or easy bruising EXAM Physical Exam Narrative Exam Narrative: Physical exam General: Well nourished, Well developed, No Acute Distress she appears relatively comfortable. Head: Normocephalic, Atraumatic Eyes: Conjunctiva not pale ENT: Moist mucous membranes Neck: Supple, Nontender, No lymphadenopathy Cardiovascular: Regular rate, Regular rhythm Respiratory: No distress, CTA bilaterally Abdomen: Soft, Nontender, Nondistended Back: Nontender, Normal Inspection. Negative for: CVA tenderness Extremities: Nontender, No edema. There is slight cyanosis of the distal part of both feet, capillary refill is about 2 seconds, skin does not show any other abnormality. The skin is warm. Skin: Normal color, No rash Neurological: Alert, Normal Strength, Normal Sensation. Normal speech pattern. No asterixis. No tremor. Psychological: Normal affect Const Vital Signs: 01/20/22 17:17 01/20/22 18:30 Temperature 97.7 F L Temperature Source Temporal Pulse Rate 81 84 Respiratory Rate 16 16 Blood Pressure 181/104 H 184/116 H Blood Pressure Mean 129 138 Pulse Ox 97 94 Oxygen Delivery Method Room Air Room Air MDM MDM MDM Narrative Medical decision making narrative: Patient is medically cleared. She appears well I do not believe a vascular study is indicated emergently. She is requesting detox for alcohol. I will admit her. Lab Data Labs: Laboratory Results - last 24 hr 01/20/22 01/20/22 01/20/22 19:00 19:00 19:00 WBC 7.4 RBC 3.64 L Hgb 12.1 Hct 36.7 L MCV 100.8 H MCH 33.2 H MCHC 33.0 RDW Std Deviation 47.0 H RDW Coeff of [place] 12.6 Plt Count 156 MPV 9.3 Immature Gran % (Auto) 1.100 H Neut % (Auto) 79.1 H Lymph % (Auto) 8.1 L [place] % (Auto) 7.9 Eos % (Auto) 3.0 Baso % (Auto) 0.8 Absolute Neuts (auto) 5.8 Absolute Lymphs (auto) 0.60 L Nucleated RBC % 0 Differential Comment PT 14.2 INR 1.1 Sodium 137 Potassium 4.8 Chloride 109 H Carbon Dioxide 22.0 Anion Gap 6 BUN 30 H Creatinine 1.59 H Estim Creat Clear Calc 38.31 Est GFR (MDRD) Af Amer 44 L Est GFR (MDRD) Non-Af 36 L BUN/Creatinine Ratio 18.9 Glucose 112 H Calcium 8.9 Total Bilirubin 0.70 Direct Bilirubin 0.21 AST 23 ALT 30 Alkaline Phosphatase 102 Total Protein 7.5 Albumin 3.5 Globulin 4.0 Lipase 108 Discharge Plan Triage Chief Complaint: Lower Extremity Injury ED Provider: Didier Webber Dx/Rx/DC Orders Clinical Impression: Alcohol abuse, Acute foot pain Prescriptions: No Action rosuvastatin [Crestor] 5 mg tablet 10 mg PO DAILY RF: 0 nortriptyline 50 mg capsule 50 mg PO QHS PRN PRN (Reason: Sleep) RF: 0 cyclobenzaprine 5 mg tablet 5 mg PO TID PRN PRN (Reason: Spasms) RF: 0 sildenafil (pulm.hypertension) 20 mg tablet 20 mg PO TID RF: 0 losartan-hydrochlorothiazide 50-12.5 mg tablet 1 tab PO DAILY RF: 0 flecainide 100 mg tablet 100 mg PO BID Qty: 60 RF: 11 pantoprazole 40 mg tablet,delayed release (DR/EC) 40 mg PO QAM Qty: 90 RF: 0 acetaminophen 500 MG tablet 1,000 mg PO DAILY PRN PRN (Reason: Pain 1-10 Or Fever) RF: 0 levothyroxine 25 MCG tablet 25 mcg PO DAILY RF: 0 folic acid 1 MG tablet 1 mg PO DAILY RF: 0 cholecalciferol (vitamin D3) 10 MCG capsule 4,000 unit PO DAILY RF: 0 multivitamin Tablet 1 tab PO DAILY MDD SUPPLEMEMT RF: 0 montelukast [Singulair] 10 mg tablet 10 mg PO DAILY RF: 0 metoprolol tartrate 25 mg tablet 25 mg PO BID Qty: 60 RF: 0 dicyclomine 20 mg tablet 20 mg PO TID PRN (Reason: Cramps) RF: 0 Trelegy Ellipta 100-62.5-25 mcg blister with device 1 inh INHALATION DAILY RF: 0 Eliquis 5 mg tablet 5 mg PO BID RF: 0 Primary Care Provider: Didier Watkins Referrals: Didier Watkins MD [Primary Care Provider] - Disposition Disposition: Acute Care Hospital [facility]
[2022-01-20 20:59] LABS: Alcohol, Blood (Medical)-Serum < 3.0 mg/dL
[2022-01-20 21:01] VITALS: BP 174/103; PULSE 78; RESP 20; TEMP 36.5; O2SAT 95
[2022-01-20 21:52] VITALS: BMI 36.8
[2022-01-20 21:59] VITALS: BP 168/91; PULSE 80; RESP 16; TEMP 36.2; O2SAT 99
--- NOTE | 2022-01-20 22:07 | PCM.HP.STD ---
HPI - General General Date of Admission: 01/20/22 Date of Service: 01/20/22 Chief Complaint: Alcohol withdrawal, need for alcohol detox HPI Narrative NEYMAR SHEPHERD, is a 51 F who presents to the emergency room at [facility] initially for evaluation of chronic discoloring of her feet, she states she is seen in outpatient physician for this in the past and he told her it was due to her previous cigarette smoking. She was told it was microvascular disease. While she was here in the emergency room, she overheard another patient talking about alcohol detox and decided it was time for her to come in for alcohol detox services. Patient admits to drinking about half 1/5 of 101 proof wild [place] daily, she states last time she drank anything was yesterday, she does complain of some nervousness and tremor today. She states that if she drinks alcohol the tremor goes away. Patient was in detox previously in 2018 and . She does not follow-up with anyone as an outpatient for chronic sobriety. Labs obtained in the emergency room showed normal CBC, chemistry profile was remarkable for creatinine of 1.59 and a BUN of 30-in reviewing the patient's old lab work, it appears that she has chronic elevation in her creatinine. Blood alcohol level less than 3. Patient will be admitted to [facility] for alcohol detox services, orders were entered using the alcohol detox order set, she will meet with addiction long term care social worker tomorrow to arrange for outpatient follow-up. [facility] Medical History Alcohol abuse Alcohol use Allergic rhinitis Anemia Anxiety Atrial fibrillation with rapid ventricular response Bilateral knee pain Cardiology follow-up encounter Chest pain COPD (chronic obstructive pulmonary disease) CPAP (continuous positive airway pressure) dependence Depression DVT (deep venous thrombosis) Esophageal spasm Essential (primary) hypertension Fatty liver Former smoker Former smoker GERD (gastroesophageal reflux disease) Hiatal hernia History of back problems History of echocardiogram History of edema History of pain when walking History of stress test HLD (hyperlipidemia) Hyperthyroidism Hypomagnesemia Iron deficiency Migraines Morbid obesity with BMI of 40.0-44.9, adult Obstructive sleep apnea Osteoarthritis Patellofemoral syndrome of both knees Pulmonary arterial hypertension Pulmonary embolism (04/26/16) Secondary pulmonary arterial hypertension Tobacco user Tubular adenoma of colon Home Medications cyclobenzaprine 5 mg tablet 5 mg PO TID PRN PRN 06/18/19 [History Last Taken 01/19/22] nortriptyline 50 mg capsule 50 mg PO QHS PRN PRN 06/18/19 [History Last Taken 01/19/22] rosuvastatin 5 mg tablet 10 mg PO DAILY 06/18/19 [History Last Taken 01/19/22] acetaminophen 1,000 mg PO DAILY PRN PRN 08/01/20 [History Last Taken 01/19/22] cholecalciferol (vitamin D3) 4,000 unit PO DAILY 08/01/20 [History Last Taken 01/19/22] folic acid 1 mg PO DAILY 08/01/20 [History Last Taken 01/19/22] levothyroxine 25 mcg PO DAILY 08/01/20 [History Last Taken 01/19/22] montelukast [Singulair] 10 mg PO DAILY 12/28/20 [History Last Taken 01/19/22] multivitamin 1 tab PO DAILY MDD SUPPLEMEMT 12/28/20 [History Last Taken 01/19/22] metoprolol tartrate 25 mg PO BID #60 tab 12/30/20 [Rx Last Taken 01/19/22] losartan 50 mg-hydrochlorothiazide 12.5 mg tablet 1 tab PO DAILY tab 05/01/21 [History Last Taken 01/19/22] sildenafil (pulm.hypertension) 20 mg tablet 20 mg PO TID tab 05/01/21 [History Last Taken 01/19/22] flecainide 100 mg tablet 100 mg PO BID #60 tab 10/11/21 [Rx Last Taken 01/19/22] pantoprazole 40 mg tablet,delayed release 40 mg PO QAM #90 tab 10/25/21 [Rx Last Taken 01/19/22] dicyclomine 20 mg PO TID PRN 12/31/21 [History Last Taken 01/19/22] apixaban [Eliquis] 5 mg PO BID 01/20/22 [History Last Taken 01/19/22] oefwypnozrw-auznpsewy-vccjadur [Trelegy Ellipta] 1 inh INHALATION DAILY 01/20/22 [History Last Taken 01/19/22] Allergy/AdvReac Type Severity Reaction Status Date / Time tramadol Allergy Intermediate GI upset Verified 01/20/22 17:21 doxycycline Allergy Hives Verified 01/20/22 17:21 hydrocodone [From Vicodin] AdvReac Itching Verified 01/20/22 17:21 Family History Mother Breast cancer Cancer lung cancer Father Cancer lung cancer Hypertension High cholesterol Surgical History H/O repair of rotator cuff History of History of cardiac catheterization History of cholecystectomy History of hysterectomy History of nasal surgery History of repair of hiatal hernia (12/2020) Social History Smoking Status: Former smoker quit date: 11/10/17 alcohol intake: current alcohol intake frequency: 3 or more drinks per day Alcohol type: hard liquor substance use type: does not use ROS ROS Narrative Patient overall complains of nervousness and tremor Constitutional Constitutional: Denies anorexia, change in weight, fever(s), night sweats or weakness Eyes Eyes: Denies blurry vision, change in vision, discharge from eye(s) or eye pain Cardiovascular Cardiovascular: Denies chest pain, claudication, edema or palpitations Respiratory/Chest Respiratory/Chest: Denies cough, hemoptysis, shortness of breath at rest or shortness of breath with exertion Gastrointestinal Gastrointestinal: Denies abdominal pain, constipation, diarrhea, hematemesis, hematochezia, melena, nausea or vomiting Genitourinary Genitourinary: Denies dysuria, hematuria, urinary frequency, urinary hesitancy, urinary incontinence or urinary urgency Musculoskeletal Musculoskeletal: Denies back pain, joint pain, joint stiffness, joint swelling, myalgias or neck pain Neurologic Neurologic: Denies abnormal gait, abnormal speech, dizziness, focal weakness, headache(s), loss of vision, numbness, other visual disturbances, paresthesias, syncope or tingling Psychiatric Psychiatric: Reports other Details: Patient complains of tremor and nervousness at this time ; Denies anxiety, cognitive impairment, depression, irritability, mood swings or suicidal ideation Endocrine Endocrinology: Denies change in body appearance, cold intolerance, excessive sweating, heat intolerance, polydipsia or polyuria Hematologic/Lymphatic Hematologic/Lymphatic: Denies none, anemia, easy bleeding, easy bruising or lymphadenopathy Allergic/Immunologic Allergic/Immunologic: Denies rhinitis, urticaria, eczemia or asthma Vital Signs Vital Signs Vital Signs: 01/20/22 17:17 01/20/22 18:30 01/20/22 21:01 Temperature 97.7 F L 97.7 F L Temperature Source Temporal Oral Pulse Rate 81 84 78 Respiratory Rate 16 16 20 H Blood Pressure 181/104 H 184/116 H 174/103 H Blood Pressure Mean 129 138 126 Blood Pressure Source Blood Pressure Position Blood Pressure Location Pulse Ox 97 94 95 Oxygen Delivery Method Room Air Room Air Room Air 01/20/22 21:59 Temperature 97.2 F L Temperature Source Temporal Pulse Rate 80 Respiratory Rate 16 Blood Pressure 168/91 H Blood Pressure Mean 116 Blood Pressure Source Monitor Blood Pressure Position Semi-Fowlers Blood Pressure Location Left Arm Pulse Ox 99 Oxygen Delivery Method Room Air Weight Weight: 106.594 kg Body Mass Index (BMI) 36.8 Physical Exam Const alert, oriented x3 and no apparent distress Constitutional Narrative: Patient appears her stated age General Appearance: cooperative, well kempt and well developed Orientation / Consciousness: awake, oriented to person, oriented to place and oriented to time HEENT normocephalic, head/scalp atraumatic, hearing grossly normal bilaterally and moist oral mucous membranes Eyes PERRL, EOMs intact bilaterally and conjunctivae normal Neck nuchal rigidity, supple, no JVD, thyroid normal and no carotid bruits General: trachea midline Resp normal respiratory effort, no retractions, no use of accessory muscles and clear to auscultation bilaterally Auscultation: Negative for rales, rhonchi or wheezes Cardio regular rate, regular rhythm, S1 normal heart sound, S2 normal heart sound, no murmurs, no rub and no gallops GI normal to inspection, nondistended, normoactive bowel sounds, soft to palpation, non-tender and non-distended Extremity no clubbing, cyanosis or edema Skin no rashes or lesions noted General Skin Exam: no breakdown Neuro oriented x3, CN's II-XII intact bilaterally, no focal motor deficits and no sensory deficits noted Sensorium / Orientation: awake and alert Speech: speech normal Psych affect normal Results Lab / Micro Data Result Diagrams: 01/20/22 19:00 01/20/22 19:00 Labs: Laboratory Results - last 24 hr 01/20/22 19:00: WBC 7.4, RBC 3.64 L, Hgb 12.1, Hct 36.7 L, MCV 100.8 H, MCH 33.2 H, MCHC 33.0, RDW Std Deviation 47.0 H, RDW Coeff of [place] 12.6, Plt Count 156, MPV 9.3, Immature Gran % (Auto) 1.100 H, Neut % (Auto) 79.1 H, Lymph % (Auto) 8.1 L, [place] % (Auto) 7.9, Eos % (Auto) 3.0, Baso % (Auto) 0.8, Absolute Neuts (auto) 5.8, Absolute Lymphs (auto) 0.60 L, Nucleated RBC % 0, Differential Comment 01/20/22 19:00: PT 14.2, INR 1.1 01/20/22 19:00: Sodium 137, Potassium 4.8, Chloride 109 H, Carbon Dioxide 22.0, Anion Gap 6, BUN 30 H, Creatinine 1.59 H, Estim Creat Clear Calc 38.31, Est GFR (MDRD) Af Amer 44 L, Est GFR (MDRD) Non-Af 36 L, BUN/Creatinine Ratio 18.9, Glucose 112 H, Calcium 8.9, Total Bilirubin 0.70, Direct Bilirubin 0.21, AST 23, ALT 30, Alkaline Phosphatase 102, Total Protein 7.5, Albumin 3.5, Globulin 4.0, Lipase 108 01/20/22 20:15: Ethyl Alcohol < 3.0 Assessment & Plan Assessment/Plan (1) Alcohol abuse: PLAN: 1. Acute alcohol withdrawal-patient will be admitted to [facility] 3, entered using the alcohol detox order set, patient will be seen by addiction long term care social worker tomorrow #2 chronic kidney disease stage IIIb-complicates recovery, prognosis, and hospital course #3 paroxysmal atrial fib-patient is on Eliquis, metoprolol, and flecainide #4 chronic obstructive pulmonary disease-patient will be placed on DuoNeb aerosols and Pulmicort aerosols #5 GERD-patient will be placed on Protonix #6 pulmonary hypertension-patient's sildenafil will be held during her hospitalization #7 obstructive sleep apnea-patient brought her CPAP machine here she will be able to use it #8 hypothyroidism-patient is on Synthroid #9 essential hypertension-patient will remain on her home medication Charges/Coding Visit Charges Inpatient E&M: 30941 Init Hosp L3
[2022-01-20] MEDS: Phenobarbital 32.4 MG Tablet PO (23:06)
[2022-01-20] MEDS: hydrOXYzine PAM 25 MG Capsule 50 MG PO (23:06)
[2022-01-21] VITALS (10 sets, daily range): BP systolic 136–159; BP diastolic 81–94; PULSE 59–91; RESP 16–20; TEMP 36.6–37.4; O2SAT 93–96
[2022-01-21] MEDS: Acetaminophen 500 MG Tablet PO ×2 (00:55→10:42)
[2022-01-21] MEDS: Flecainide 100 MG Tablet PO ×3 (00:56→22:07)
[2022-01-21] MEDS: Dicyclomine 10 MG Capsule 20 MG PO (00:56)
[2022-01-21] MEDS: APIXABAN 5 MG TABLET PO ×3 (00:57→22:06)
[2022-01-21] MEDS: Metoprolol Tartrate 25 MG Tablet PO ×3 (00:57→22:11)
[2022-01-21] MEDS: Atorvastatin Calcium 20 MG Tablet PO ×2 (01:00→22:07)
[2022-01-21] MEDS: Phenobarbital 32.4 MG Tablet PO ×6 (03:15→22:11)
[2022-01-21] MEDS: Budesonide Respules 0.5 MG/2 ML AMPUL.NEB. INHALATION (06:40)
[2022-01-21] MEDS: Ipratropium/Albuterol Sulfate 3 ML AMPUL.NEB INHALATION (06:40)
[2022-01-21] MEDS: Levothyroxine 25 MCG TABLET PO (07:05)
--- NOTE | 2022-01-21 07:33 | PN.HOSP_ITS ---
Subjective Subjective Follow-up for acute acute alcohol withdrawal: Patient was seen and examined. She denied any new complaints. No acute events overnight. Objective Data Objective Data Vital Signs: Vital Signs Temp Pulse Resp BP Pulse Ox 98 F 59 L 16 136/83 H 93 01/21/22 06:58 01/21/22 06:58 01/21/22 06:58 01/21/22 06:58 01/21/22 06:58 Oxygen Delivery Method Room Air Weight: 106.594 kg Body Mass Index (BMI) 36.8 Lab / Micro Data Result Diagrams: 01/20/22 19:00 01/20/22 19:00 Labs: Laboratory Results - last 24 hr 01/20/22 19:00: WBC 7.4, RBC 3.64 L, Hgb 12.1, Hct 36.7 L, MCV 100.8 H, MCH 33.2 H, MCHC 33.0, RDW Std Deviation 47.0 H, RDW Coeff of [place] 12.6, Plt Count 156, MPV 9.3, Immature Gran % (Auto) 1.100 H, Neut % (Auto) 79.1 H, Lymph % (Auto) 8.1 L, [place] % (Auto) 7.9, Eos % (Auto) 3.0, Baso % (Auto) 0.8, Absolute Neuts (auto) 5.8, Absolute Lymphs (auto) 0.60 L, Nucleated RBC % 0, Differential Comment 01/20/22 19:00: PT 14.2, INR 1.1 01/20/22 19:00: Sodium 137, Potassium 4.8, Chloride 109 H, Carbon Dioxide 22.0, Anion Gap 6, BUN 30 H, Creatinine 1.59 H, Estim Creat Clear Calc 38.31, Est GFR (MDRD) Af Amer 44 L, Est GFR (MDRD) Non-Af 36 L, BUN/Creatinine Ratio 18.9, Glucose 112 H, Calcium 8.9, Total Bilirubin 0.70, Direct Bilirubin 0.21, AST 23, ALT 30, Alkaline Phosphatase 102, Total Protein 7.5, Albumin 3.5, Globulin 4.0, Lipase 108 01/20/22 20:15: Ethyl Alcohol < 3.0 Physical Exam Narrative Physical exam: General: Alert, Oriented x3, Cooperative, No apparent distress, obese HEENT: Atraumatic Oral: Moist Mucosa Neck: Supple Lungs: Clear to auscultation Cardiovascular: HS I+II, regular, no murmurs Abdomen:Obese,distended, bowel sounds present, soft, non tender Extremities: No edema Skin: No rashes, No breakdown Neurological: Grossly intact Psych/Mental Status: Appropriate Assessment & Plan Assessment/Plan (1) Alcohol abuse: (2) Fatty liver: PLAN: 1. Acute alcohol withdrawal, last CIWA score was 6 Continue on phenobarb taper, folic acid, multivitamin, and thiamine 2. Chronic kidney disease stage IIIb-complicates recovery, prognosis, and hospital course We will repeat blood work in a.m. 3. Fatty liver, followed up in the outpatient with GI Liver Elastoplasty is pending; will order 4. Rest of his chronic medical conditions including paroxysmal A. fib/COPD/CAD/pulm hypertension/FADY/hypothyroidism/hypertension all remained stable. Continue on apixaban, statin, Pletal, flecainide, hydrochlorothiazide, levothyroxine, losartan, metoprolol, PPI 5. DVT prophylaxis?apixaban Charges/Coding Visit Charges Inpatient E&M: 71258 Subs Hosp L2
[2022-01-21] MEDS: Folic Acid 1 MG Tablet PO (08:41)
[2022-01-21] MEDS: Thiamine Hydrochloride 100 MG Tablet PO (08:41)
--- NOTE | 2022-01-21 10:40 | ADDICTION ---
This auto service writer met with PT to conduct ASAM, MSE, AUDIT assessments and to plan for d/c. PT A+Ox4 and participated actively. All assessments completed, faxed to [facility] and placed in PT's chart. [facility] for follow-up treatment services. PT did not indicate a need for transportation post d/c from [facility].
[2022-01-21] MEDS: Losartan Potassium 50 MG Tablet PO (10:41)
[2022-01-21] MEDS: Pantoprazole Sodium 40 MG Tablet PO (10:41)
[2022-01-21] MEDS: hydroCHLOROthiazide 12.5mg 12.5 MG PO (10:41)
[2022-01-21] MEDS: hydrOXYzine PAM 25 MG Capsule 50 MG PO (10:43)
[2022-01-21] MEDS: traZODone 100 MG Tablet PO (22:16)
[2022-01-22] VITALS (10 sets, daily range): BP systolic 108–135; BP diastolic 58–87; PULSE 58–76; RESP 16–18; TEMP 36.7–37; O2SAT 92–96
[2022-01-22] MEDS: Phenobarbital 32.4 MG Tablet PO ×6 (02:52→22:22)
[2022-01-22 05:32] LABS: ALB/GLOB Ratio 0.9 RATIO (0.9-2.4); AST(SGOT) 17 U/L (15-37); Alanine Aminotransfer ALT/SGPT 25 U/L (13-56); Albumin, Serum 3.2 g/dL (3.2-5.0); Alkaline Phosphatase 91 U/L (45-117); Anion Gap 7 (5-15); BUN 25 mg/dL (7-18); BUN/Creat Ratio 18.9 RATIO (10-20); Calcium,Total 8.4 mg/dL (8.5-10.1); Chloride 106 mmol/L (98-107); Creatinine, Serum 1.32 mg/dL (0.55-1.02); EST Glomerular Filtration Rate 45 mL/min (>60); Est Glom Filt Rate - Afr Amer 54 mL/min (>60); Estimated Creatinine Clearance 47.93 ml/min; Globulin 3.7 g/dL (2.2-4.2); Glucose 118 mg/dL (74-106); Potassium 4.2 mmol/L (3.5-5.1); Protein, Total 6.9 g/dL (6.4-8.2); Sodium Level 136 mmol/L (136-145)
[2022-01-22] MEDS: Levothyroxine 25 MCG TABLET PO (06:09)
--- NOTE | 2022-01-22 07:00 | US_ITS ---
EXAM: US ABDOMEN LIMITED, LIVER ELASTOGRAPHY CLINICAL INDICATION: CIRRHOSIS -- WILL DO- 01/22 IN MORNING, PT WILL BE NPO TECHNIQUE: Real-time ultrasound of the abdomen with image documentation and elastography. This report was created using [employer] report generation technology. COMPARISON: None. FINDINGS: LIVER: 3 separate areas of sampling of the liver parenchyma to evaluate for shear wave changes demonstrate 2 areas with Metavir score of F2 to F3 compatible with significant to severe arthrosis. Third area demonstrated Metavir score of F0 to F1 which would indicate mild fibrosis. There is normal echotexture. No intrahepatic biliary ductal dilation. US/Elastography Parenchyma/Organ IMPRESSION: Abnormal liver elastography suggestive of moderate to severe liver fibrosis Electronically Signed: Amauri Dennis MD at 10:14 EDT ,
--- NOTE | 2022-01-22 07:00 | US_ITS ---
EXAM: US ABDOMEN LIMITED, RIGHT UPPER QUADRANT CLINICAL INDICATION: eval liver for elastography -- cirrhosis TECHNIQUE: Real-time ultrasound of the right upper quadrant with image documentation. This report was created using [employer] report generation technology. COMPARISON: None. FINDINGS: LIVER: Increased liver echogenicity consistent with parenchymal liver disease. No space-occupying lesions. No intrahepatic biliary ductal dilation. GALLBLADDER: Gallbladder surgically absent. No gallbladder wall thickening is demonstrated. No pericholecystic fluid. Negative sonographic Daniels''s sign. COMMON BILE DUCT: Common bile duct measures 6.6 mm in diameter. The proximal common bile duct is within normal limits for the patient''s age. PANCREAS: Unremarkable as visualized. No focal abnormality is demonstrated in the pancreas. No pancreatic ductal dilatation. RIGHT KIDNEY: Unremarkable. There is no hydronephrosis. No shadowing calculus. No focal lesion or perinephric collection is demonstrated. US/Abdomen Limited IMPRESSION: Parenchymal liver disease. Electronically Signed: Amauri Dennis MD at 10:19 EDT ,
[2022-01-22] MEDS: Budesonide Respules 0.5 MG/2 ML AMPUL.NEB. INHALATION ×2 (07:20→18:54)
[2022-01-22] MEDS: Ipratropium/Albuterol Sulfate 3 ML AMPUL.NEB INHALATION ×3 (07:20→18:54)
--- NOTE | 2022-01-22 08:01 | PCM.PN.HOSP ---
Subjective Subjective Follow-up for acute acute alcohol withdrawal: Patient was seen and examined. No new complaints, no acute events overnight. Objective Data Objective Data Vital Signs: Vital Signs Temp Pulse Resp BP Pulse Ox 98.6 F 58 L 18 135/74 H 95 01/22/22 06:13 01/22/22 07:21 01/22/22 07:21 01/22/22 06:13 01/22/22 07:21 Oxygen Delivery Method Room Air Weight: 106.594 kg Body Mass Index (BMI) 36.8 Lab / Micro Data Result Diagrams: 01/20/22 19:00 01/22/22 03:50 Labs: Laboratory Results - last 24 hr 01/22/22 03:50: Sodium 136, Potassium 4.2, Chloride 106, Carbon Dioxide 23.0, Anion Gap 7, BUN 25 H, Creatinine 1.32 H, Estim Creat Clear Calc 47.93, Est GFR (MDRD) Af Amer 54 L, Est GFR (MDRD) Non-Af 45 L, BUN/Creatinine Ratio 18.9, Glucose 118 H, Calcium 8.4 L, Total Bilirubin 0.60, AST 17, ALT 25, Alkaline Phosphatase 91, Total Protein 6.9, Albumin 3.2, Globulin 3.7, Albumin/Globulin Ratio 0.9 Physical Exam Narrative Physical exam: General: Alert, Oriented x3, Cooperative, No apparent distress, obese HEENT: Atraumatic Oral: Moist Mucosa Neck: Supple Lungs: Clear to auscultation Cardiovascular: HS I+II, regular, no murmurs Abdomen:Obese,distended, bowel sounds present, soft, non tender Extremities: No edema Skin: No rashes, No breakdown Neurological: Grossly intact Psych/Mental Status: Appropriate Assessment & Plan Assessment/Plan (1) Alcohol abuse: (2) Fatty liver: PLAN: 1. Acute alcohol withdrawal, last CIWA score was 5 Continue on phenobarb taper, folic acid, multivitamin, and thiamine 2. Chronic kidney disease stage IIIb-complicates recovery, prognosis, and hospital course Creatinine is about at the baseline, currently 1.32, down from 1.59 3. Fatty liver, followed up in the outpatient with GI Liver Elastoplasty shows moderate to severe liver fibrosis 4. Rest of his chronic medical conditions including paroxysmal A. fib/COPD/CAD/pulm hypertension/FADY/hypothyroidism/hypertension all remained stable. Continue on apixaban, statin, Pletal, flecainide, hydrochlorothiazide, levothyroxine, losartan, metoprolol, PPI 5. DVT prophylaxis?apixaban Charges/Coding Visit Charges Inpatient E&M: 28160 Subs Hosp L2
[2022-01-22] MEDS: Folic Acid 1 MG Tablet PO (09:27)
[2022-01-22] MEDS: Thiamine Hydrochloride 100 MG Tablet PO ×2 (09:28)
[2022-01-22] MEDS: hydroCHLOROthiazide 12.5mg 12.5 MG PO (09:28)
[2022-01-22] MEDS: APIXABAN 5 MG TABLET PO ×2 (09:28→22:23)
[2022-01-22] MEDS: Flecainide 100 MG Tablet PO ×2 (09:29→22:23)
[2022-01-22] MEDS: Pantoprazole Sodium 40 MG Tablet PO (09:29)
[2022-01-22] MEDS: Metoprolol Tartrate 25 MG Tablet PO ×2 (09:29→22:23)
[2022-01-22] MEDS: Losartan Potassium 50 MG Tablet PO (09:46)
[2022-01-22] MEDS: hydrOXYzine PAM 25 MG Capsule 50 MG PO (14:27)
[2022-01-22] MEDS: Acetaminophen 500 MG Tablet PO (14:27)
[2022-01-22] MEDS: traZODone 100 MG Tablet PO (22:22)
[2022-01-22] MEDS: Atorvastatin Calcium 20 MG Tablet PO (22:23)
[2022-01-23] VITALS (8 sets, daily range): BP systolic 110–136; BP diastolic 65–78; PULSE 62–85; RESP 16–20; TEMP 36.9–37.1; O2SAT 92
[2022-01-23] MEDS: Phenobarbital 32.4 MG Tablet PO ×4 (03:53→19:58)
[2022-01-23] MEDS: Acetaminophen 500 MG Tablet PO (03:55)
[2022-01-23] MEDS: hydrOXYzine PAM 25 MG Capsule 50 MG PO ×3 (05:46→19:58)
[2022-01-23] MEDS: Levothyroxine 25 MCG TABLET PO (05:47)
[2022-01-23] MEDS: Ipratropium/Albuterol Sulfate 3 ML AMPUL.NEB INHALATION ×3 (07:18→18:53)
[2022-01-23] MEDS: Budesonide Respules 0.5 MG/2 ML AMPUL.NEB. INHALATION ×2 (07:18→18:53)
--- NOTE | 2022-01-23 09:50 | PN.HOSP_ITS ---
Subjective Subjective Follow-up for acute acute alcohol withdrawal: Patient was seen and examined. No acute events overnight. Patient is very tearful today. Objective Data Objective Data Vital Signs: Vital Signs Temp Pulse Resp BP Pulse Ox 98.4 F 78 20 H 128/78 H 92 01/23/22 04:10 01/23/22 07:17 01/23/22 07:17 01/23/22 04:10 01/23/22 04:10 Oxygen Delivery Method Room Air Weight: 106.594 kg Body Mass Index (BMI) 36.8 Intake & Output: Intake and Output for Last 24 Hours 01/21/22 01/22/22 01/23/22 23:59 23:59 23:59 Intake Total 500 / 500 Balance 500 / 500 Lab / Micro Data Result Diagrams: 01/20/22 19:00 01/22/22 03:50 Radiography Diagnostic Testing: Radiology Impression Abdomen Ultrasound 01/22/22 07:00 IMPRESSION: Parenchymal liver disease. Electronically Signed: Amauri Dennis MD at 10:19 EDT , Liver Elastography 01/22/22 07:00 IMPRESSION: Abnormal liver elastography suggestive of moderate to severe liver fibrosis Electronically Signed: Amauri Dennis MD at 10:14 EDT , Physical Exam Narrative General: Alert, Oriented x3, Cooperative, No apparent distress, obese HEENT: Atraumatic Oral: Moist Mucosa Neck: Supple Lungs: Clear to auscultation Cardiovascular: HS I+II, regular, no murmurs Abdomen:Obese,distended, bowel sounds present, soft, non tender Extremities: No edema Skin: No rashes, No breakdown Neurological: Grossly intact Psych/Mental Status: Appropriate Assessment & Plan Assessment/Plan (1) Alcohol abuse: (2) Fatty liver: PLAN: 1. Acute alcohol withdrawal, last CIWA score was 9 Continue on phenobarb taper, folic acid, multivitamin, and thiamine 2. Chronic kidney disease stage IIIb-complicates recovery, prognosis, and hospital course Creatinine is about at the baseline, currently 1.32, down from 1.59 3. Fatty liver, followed up in the outpatient with GI Liver elastoplasty shows moderate to severe liver fibrosis 4. Rest of his chronic medical conditions including paroxysmal A. fib /COPD/CAD/pulm hypertension/FADY/hypothyroidism/hypertension all remained stable. Continue on apixaban, statin, Pletal, flecainide, hydrochlorothiazide, levothyroxine, losartan, metoprolol, PPI 5. DVT prophylaxis?apixaban Charges/Coding Visit Charges Inpatient E&M: 27342 Subs Hosp L2
[2022-01-23] MEDS: APIXABAN 5 MG TABLET PO ×2 (09:51→19:58)
[2022-01-23] MEDS: Pantoprazole Sodium 40 MG Tablet PO (09:51)
[2022-01-23] MEDS: Folic Acid 1 MG Tablet PO (09:51)
[2022-01-23] MEDS: Flecainide 100 MG Tablet PO ×2 (09:55→19:57)
[2022-01-23] MEDS: LORazepam 1 MG Tablet 2 MG PO ×2 (10:06→19:58)
[2022-01-23] MEDS: Metoprolol Tartrate 25 MG Tablet PO ×2 (11:01→19:58)
[2022-01-23] MEDS: Atorvastatin Calcium 20 MG Tablet PO (19:58)
[2022-01-24 00:19] VITALS: BP 125/81; PULSE 59; RESP 16; TEMP 36.9; O2SAT 92
[2022-01-24] MEDS: hydrOXYzine PAM 25 MG Capsule 50 MG PO ×3 (00:23→13:02)
[2022-01-24] MEDS: traZODone 100 MG Tablet PO (00:23)
[2022-01-24] MEDS: Phenobarbital 32.4 MG Tablet PO ×3 (00:23→13:02)
[2022-01-24 06:21] VITALS: BP 104/75; PULSE 70; RESP 16; TEMP 36.8; O2SAT 90
[2022-01-24] MEDS: Levothyroxine 25 MCG TABLET PO (06:26)
[2022-01-24] MEDS: 0.9% Saline Lock 10 ML Syringe IV (06:26)
[2022-01-24 07:32] VITALS: RESP 22
[2022-01-24] MEDS: Budesonide Respules 0.5 MG/2 ML AMPUL.NEB. INHALATION (07:32)
[2022-01-24] MEDS: Ipratropium/Albuterol Sulfate 3 ML AMPUL.NEB INHALATION (07:32)
[2022-01-24 09:02] VITALS: BP 121/63; PULSE 72; RESP 17; O2SAT 90
[2022-01-24] MEDS: Folic Acid 1 MG Tablet PO (09:06)
[2022-01-24] MEDS: Thiamine Hydrochloride 100 MG Tablet PO (09:06)
[2022-01-24] MEDS: Pantoprazole Sodium 40 MG Tablet PO (09:07)
[2022-01-24] MEDS: hydroCHLOROthiazide 12.5mg 12.5 MG PO (09:07)
[2022-01-24] MEDS: Flecainide 100 MG Tablet PO (09:07)
[2022-01-24] MEDS: Losartan Potassium 50 MG Tablet PO (09:07)
[2022-01-24 09:08] VITALS: PULSE 72
[2022-01-24] MEDS: Metoprolol Tartrate 25 MG Tablet PO (09:08)
[2022-01-24] MEDS: APIXABAN 5 MG TABLET PO (09:08)
--- NOTE | 2022-01-24 11:36 | PCM.DC ---
Discharge Instructions Diet Discharge Diet: No restrictions Activity Discharge Activity: Return to Normal Activity Follow Up Care Test Results: Test results from this visit will be discussed in further detail at your follow-up appointment, if applicable. Discharge Plan Admission Admit Date/Time: 01/20/22 22:17 Primary Reason for Your Visit: Acute alcohol withdrawal Attending Provider: Alis Quintana Primary Care Provider: Didier Watkins Consulting Providers: Reji Shay Additional Instructions / Restrictions: You are strongly advised to avoid alcohol or use of any illicit drug. Avoid smoking. Follow-up with your outpatient rehab program as scheduled. Discharge Orders/Prescriptions Prescriptions: New trazodone 100 mg Tablet 100 mg PO QHS PRN PRN (Reason: Insomnia) 14 Days Qty: 14 RF: 0 hydroxyzine HCl 50 mg tablet 50 mg PO BID PRN (Reason: anxiety) 5 Days Qty: 10 RF: 0 Continued rosuvastatin [Crestor] 5 mg tablet 10 mg PO DAILY RF: 0 nortriptyline 50 mg capsule 50 mg PO QHS PRN PRN (Reason: Sleep) RF: 0 cyclobenzaprine 5 mg tablet 5 mg PO TID PRN PRN (Reason: Spasms) RF: 0 sildenafil (pulm.hypertension) 20 mg tablet 20 mg PO TID RF: 0 losartan-hydrochlorothiazide 50-12.5 mg tablet 1 tab PO DAILY RF: 0 flecainide 100 mg tablet 100 mg PO BID Qty: 60 RF: 11 pantoprazole 40 mg tablet,delayed release (DR/EC) 40 mg PO QAM Qty: 90 RF: 0 acetaminophen 500 MG tablet 1,000 mg PO DAILY PRN PRN (Reason: Pain 1-10 Or Fever) RF: 0 levothyroxine 25 MCG tablet 25 mcg PO DAILY RF: 0 folic acid 1 MG tablet 1 mg PO DAILY RF: 0 cholecalciferol (vitamin D3) 10 MCG capsule 4,000 unit PO DAILY RF: 0 multivitamin Tablet 1 tab PO DAILY MDD SUPPLEMEMT RF: 0 montelukast [Singulair] 10 mg tablet 10 mg PO DAILY RF: 0 metoprolol tartrate 25 mg tablet 25 mg PO BID Qty: 60 RF: 0 dicyclomine 20 mg tablet 20 mg PO TID PRN (Reason: Cramps) RF: 0 Trelegy Ellipta 100-62.5-25 mcg blister with device 1 inh INHALATION DAILY RF: 0 Eliquis 5 mg tablet 5 mg PO BID RF: 0 Referrals / Follow Up: Didier Watkins MD [Primary Care Provider] - Within 1 Week Disposition Disposition (needs filled in before D/C Order can be placed): Home, Self Care
--- NOTE | 2022-01-24 11:39 | CHAPLAIN ---
Type of Pastoral Visit _x__ Initial Visit ___ Follow-up Visit ___ On-call Visit ___ General Patient Visit ___ Spiritual Assessment ___ Family Conference ___ Bereavement ___ Rapid Response ___ Code Blue ___ Other (describe below) Pastoral Care Referral From ___ Patient ___ Family _x__ Nurse ___ Physician ___ Minister Assistant ___ Program Administrator ___ Other (describe below) Sacrament/Intervention _x__ Active listening ___ Anointing ___ Jain ___ Bereavement ___ Communion ___ Gabrielle exploration ___ _x__ Life review _x__ Prayer ___ Reconciliation ___ Sacrament of Sick _x__ Supportive presence ___ Wedding ___ Other (describe below) Pastoral Comments RN recommended this visit due to patient speaking openly about her addiction and home life; patient is welcoming and open to talk; pt gives some life history and status of her home; pt expresses her need to make significant changes for her own sobriety and well being; pt has very limited support system; pt discusses reaching out to some family member; pt is open to presence and prayer for support at this time
--- NOTE | 2022-01-24 11:41 | PCM.DC.SUM ---
Providers Date of Admission: 01/20/22 Date of Discharge: 01/24/22 Primary Care Physician: Dr. Didier Watkins MD Reason For Visit: ALCOHOL WITHDRAWAL, ALCOHOLIC Diagnosis Discharge Diagnosis (1) Alcohol abuse: Status: Chronic Code(s): F10.10 - Alcohol abuse, uncomplicated (2) Fatty liver: Status: Chronic Code(s): K76.0 - Fatty (change of) liver, not elsewhere classified Medications at Discharge Home Medications cyclobenzaprine 5 mg tablet 5 mg PO TID PRN PRN 06/18/19 nortriptyline 50 mg capsule 50 mg PO QHS PRN PRN 06/18/19 rosuvastatin 5 mg tablet 10 mg PO DAILY 06/18/19 acetaminophen 1,000 mg PO DAILY PRN PRN 08/01/20 cholecalciferol (vitamin D3) 4,000 unit PO DAILY 08/01/20 folic acid 1 mg PO DAILY 08/01/20 levothyroxine 25 mcg PO DAILY 08/01/20 montelukast [Singulair] 10 mg PO DAILY 12/28/20 multivitamin 1 tab PO DAILY MDD SUPPLEMEMT 12/28/20 metoprolol tartrate 25 mg PO BID #60 tab 12/30/20 losartan 50 mg-hydrochlorothiazide 12.5 mg tablet 1 tab PO DAILY tab 05/01/21 sildenafil (pulm.hypertension) 20 mg tablet 20 mg PO TID tab 05/01/21 flecainide 100 mg tablet 100 mg PO BID #60 tab 10/11/21 pantoprazole 40 mg tablet,delayed release 40 mg PO QAM #90 tab 10/25/21 dicyclomine 20 mg PO TID PRN 12/31/21 Eliquis 5 mg PO BID 01/20/22 Trelegy Ellipta 1 inh INHALATION DAILY 01/20/22 hydroxyzine HCl 50 mg PO BID PRN 5 Days #10 tab 01/24/22 trazodone 100 mg PO QHS PRN PRN 14 Days #14 tab 01/24/22 Hospital Course Operations None Procedures None Summary of Care Provided Minutes Spent on Discharge: 35 Hospital Course: 51-year-old female with past medical history of alcohol abuse, liver cirrhosis who presented to the emergency room with chronic discoloration of her feet. Patient had noticed that her feet tended to be bluish when she sits. She had recently seen vascular surgery and was told it was due to microvascular disease and multifactorial from probable pulmonary hypertension. Patient is also following up in the outpatient with GI with a plan liver elastography. She decided in the emergency room to get help with medical stabilization from acute alcohol withdrawal. She admits to drinking half 1/5 of 101 proof [place] daily. Her last drink was a day prior to admission. She was admitted to [facility] floor and managed on alcohol withdrawal protocol. Patient did very well. She underwent ultrasound-guided liver that showed moderate to severe fibrosis. Patient will follow up with GI in the outpatient. She was seen by pony worker and outpatient follow-up was planned. Physical Exam Narrative General: Alert, Oriented x3, Cooperative, No apparent distress, obese HEENT: Atraumatic Oral: Moist Mucosa Neck: Supple Lungs: Clear to auscultation Cardiovascular: HS I+II, regular, no murmurs Abdomen:Obese,distended, bowel sounds present, soft, non tender Extremities: No edema Skin: No rashes, No breakdown Neurological: Grossly intact Psych/Mental Status: Appropriate Weight / BMI Weight Weight: 106.594 kg Body Mass Index (BMI) 36.8 ABG / Lab / Microbiology Data Result Diagrams: 01/20/22 19:00 01/22/22 03:50 D/C Instructions Discharge Diet: No restrictions Meaningful Use Info Meaningful Use Diagnoses (Choose all that apply): None applicable Discharge Plan Admission Admit Date/Time: 01/20/22 22:17 Primary Reason for Your Visit: Acute alcohol withdrawal Attending Provider: Alis Quintana Primary Care Provider: Didier Watkins Consulting Providers: Reji Shay Instructions Additional Instructions / Restrictions: You are strongly advised to avoid alcohol or use of any illicit drug. Avoid smoking. Follow-up with your outpatient rehab program as scheduled. Discharge Orders/Prescriptions Prescriptions: New trazodone 100 mg Tablet 100 mg PO QHS PRN PRN (Reason: Insomnia) 14 Days Qty: 14 RF: 0 hydroxyzine HCl 50 mg tablet 50 mg PO BID PRN (Reason: anxiety) 5 Days Qty: 10 RF: 0 Continued rosuvastatin [Crestor] 5 mg tablet 10 mg PO DAILY RF: 0 nortriptyline 50 mg capsule 50 mg PO QHS PRN PRN (Reason: Sleep) RF: 0 cyclobenzaprine 5 mg tablet 5 mg PO TID PRN PRN (Reason: Spasms) RF: 0 sildenafil (pulm.hypertension) 20 mg tablet 20 mg PO TID RF: 0 losartan-hydrochlorothiazide 50-12.5 mg tablet 1 tab PO DAILY RF: 0 flecainide 100 mg tablet 100 mg PO BID Qty: 60 RF: 11 pantoprazole 40 mg tablet,delayed release (DR/EC) 40 mg PO QAM Qty: 90 RF: 0 acetaminophen 500 MG tablet 1,000 mg PO DAILY PRN PRN (Reason: Pain 1-10 Or Fever) RF: 0 levothyroxine 25 MCG tablet 25 mcg PO DAILY RF: 0 folic acid 1 MG tablet 1 mg PO DAILY RF: 0 cholecalciferol (vitamin D3) 10 MCG capsule 4,000 unit PO DAILY RF: 0 multivitamin Tablet 1 tab PO DAILY MDD SUPPLEMEMT RF: 0 montelukast [Singulair] 10 mg tablet 10 mg PO DAILY RF: 0 metoprolol tartrate 25 mg tablet 25 mg PO BID Qty: 60 RF: 0 dicyclomine 20 mg tablet 20 mg PO TID PRN (Reason: Cramps) RF: 0 Trelegy Ellipta 100-62.5-25 mcg blister with device 1 inh INHALATION DAILY RF: 0 Eliquis 5 mg tablet 5 mg PO BID RF: 0 Referrals / Follow Up: Didier Watkins MD [Primary Care Provider] - Within 1 Week (First available March 12 @ 8:00am ) Disposition Disposition (needs filled in before D/C Order can be placed): Home, Self Care Charges/Coding Visit Charges Inpatient E&M: 61839 Disch Hosp
--- NOTE | 2022-01-24 13:09 | NURSING ---
Pt is dressed and ready to go. Waiting on Pharmacy to deliver her prescription meds and then will go over discharge paper work.
[2022-01-24 13:51] VITALS: BP 110/73; PULSE 74; RESP 16; TEMP 36.8; O2SAT 94
== END 2022-01-24 13:50 | disposition home or self-care (01) | DRG 775 ==
LOC: ED 20:59 → MS3 23:55
PROVIDERS: Admitting Provider Internal Medicine; Emergency Provider Emergency Medicine; PCP Family Medicine; Visit Provider Internal Medicine
DX: F10.239 Alcohol dependence with withdrawal, unspecified (principal); K70.30 Alcoholic cirrhosis of liver without ascites; J44.9 Chronic obstructive pulmonary disease, unspecified; I27.20 Pulmonary hypertension, unspecified; I27.21 Secondary pulmonary arterial hypertension; I48.0 Paroxysmal atrial fibrillation; E66.01 Morbid (severe) obesity due to excess calories; N18.32 Chronic kidney disease, stage 3b; K76.0 Fatty (change of) liver, not elsewhere classified; E03.9 Hypothyroidism, unspecified; I12.9 Hypertensive chronic kidney disease with stage 1 through stage 4 chronic kidney disease, or unspecified chronic kidney disease; E78.5 Hyperlipidemia, unspecified; K21.9 Gastro-esophageal reflux disease without esophagitis; I25.10 Atherosclerotic heart disease of native coronary artery without angina pectoris; G47.33 Obstructive sleep apnea (adult) (pediatric); F41.9 Anxiety disorder, unspecified; M19.90 Unspecified osteoarthritis, unspecified site; M79.671 Pain in right foot; M79.672 Pain in left foot; F32.A Depression, unspecified; Z86.718 Personal history of other venous thrombosis and embolism; Z86.711 Personal history of pulmonary embolism; Z79.899 Other long term (current) drug therapy; Z68.36 Body mass index [BMI] 36.0-36.9, adult; R23.0 Cyanosis; Z79.01 Long term (current) use of anticoagulants; Z87.891 Personal history of nicotine dependence
CPT/HCPCS: 36415; 76705; 76981; 80048; 80053; 80076; 82077; 83690; 85025; 85610; 93005; 94640; 99284; 99406; H0012; A4216

== ENCOUNTER → 2022-01-30 | Outpatient (CLI) | payer MEDICAID, SELFPAY ==
[2022-01-30 10:20] LABS: Erythrocyte Sedimentation Rate 32 mm/hr (0-30)
[2022-01-30 10:23] LABS: Absolute Lymphocyte Count 0.58 X10^3/uL (0.83-4.51); Absolute Neutrophil Count 6.5 X10^3/uL (2.0-7.7); Basophil# 0.06 X10^3/uL; Basophil% 0.7 % (0-1); Eosinophil# 0.19 X10^3/uL; Eosinophils% 2.3 % (0-5); Hematocrit 40.6 % (37-47); Hemoglobin 13.2 g/dL (12.0-15.0); Lymphocyte # 0.58 X10^3/ul (0.83-4.51); Lymphocyte % 7.1 % (19-41); Mean Corp Hgb Conc 32.5 g/dL (32-36); Mean Corpuscular Volume 101.5 fL (81-99); Mean Platelet Vol. 9.7 fl (6.2-12.0); Monocyte# 0.75 X10^3/uL; Monocyte% 9.2 % (0-10); NRBC Flagged by Analyzer 0 % (0-5); Neutrophil # 6.46 X10^3/uL (2.7-7.7); Neutrophil % 79.2 % (47-70); POSITIVE DIFFERENTIAL YES; Platelet Count 219 K/mm3 (150-450); RBC Distribution Width CV 11.9 % (11.6-14.6); RBC Distribution Width SD 45.5 fl (35.1-43.9); White Blood Count 8.2 K/mm3 (4.4-11.0)
[2022-01-30 10:25] LABS: International Normalized Ratio 1.1; Prothrombin Time (Protime)PT. 14.2 SECONDS (11.7-14.9)
[2022-01-30 10:35] LABS: Differential Indicated SCAN CRITERIA MET
[2022-01-30 10:57] LABS: Hemoglobin A1c 5.4 % (3.8-5.6)
[2022-01-30 11:03] LABS: ALB/GLOB Ratio 0.8 RATIO (0.9-2.4); AST(SGOT) 21 U/L (15-37); Alanine Aminotransfer ALT/SGPT 29 U/L (13-56); Albumin, Serum 3.7 g/dL (3.2-5.0); Alkaline Phosphatase 140 U/L (45-117); Anion Gap 9 (5-15); BUN 22 mg/dL (7-18); BUN/Creat Ratio 17.7 RATIO (10-20); Calcium,Total 9.5 mg/dL (8.5-10.1); Chloride 102 mmol/L (98-107); Creatinine, Serum 1.24 mg/dL (0.55-1.02); EST Glomerular Filtration Rate 48 mL/min (>60); Est Glom Filt Rate - Afr Amer 58 mL/min (>60); Ferritin 58 ng/mL (8-252); Globulin 4.6 g/dL (2.2-4.2); Glucose 115 mg/dL (74-106); LDH 176 U/L (84-246); Protein, Total 8.3 g/dL (6.4-8.2); Sodium Level 136 mmol/L (136-145)
[2022-01-30 11:13] LABS: HIV - WCH Non-Reactive (Nonreactive)
[2022-01-30 13:38] LABS: BNP,B-Type NATRIURETIC PEPTIDE 57.2 pg/mL (0-100)
[2022-01-31 14:10] LABS: Anti-Centromere B Ab <0.2 AI (0.0-0.9); Anti-Chromatin <0.2 AI (0.0-0.9); Anti-Jo <0.2 AI (0.0-0.9); Anti-Scleroderma-70 AB <0.2 AI (0.0-0.9); RNP Ab <0.2 AI (0.0-0.9); SJOGREN'S Anti-SS-A test < 0.2 AI (0.0-0.9); SJOGREN'S Anti-SS-B test < 0.2 AI (0.0-0.9); Smith Ab <0.2 AI (0.0-0.9)
[2022-02-01 06:09] LABS: Angiotensin Convert Enzyme 43 U/L (14-82); Ceruloplasmin 38.3 mg/dL (19.0-39.0); Cytoplasmic Ab (C-ANCA) <1:20 titer (Neg:<1:20); HEPATITIS B SURFACE AG Negative (Negative); Hep C Antibodies <0.1 s/co ratio (0.0-0.9); Hepatitis A IgM Antibody Negative (Negative); Hepatitis B Core AB IgM Negative (Negative)
[2022-02-01 08:28] LABS: Anti-Mitochondrial AB <20.0 Units (0.0-20.0); Anti-dsDNA Ab 33 IU/mL (0-9)
[2022-02-04 09:24] LABS: AFP, Tumor Marker 3.8 ng/mL (0.0-9.2); Anti-Smooth Muscle ABS 4 Units (0-19); Copper, Serum or Plasma 182 ug/dL (80-158); Haptoglobin 330 mg/dL (33-346); Perinuclear Ab (P-ANCA) <1:20 titer (Neg:<1:20)
== END | disposition home or self-care (01) ==
LOC: LAB 09:24
PROVIDERS: Nurse Practitioner Adult Health; PCP Family Medicine; Visit Provider Internal Medicine Pulmonary Disease
DX: I27.0 Primary pulmonary hypertension (principal); Z79.899 Other long term (current) drug therapy
CPT/HCPCS: 80053; 80074; 82105; 82140; 82164; 82390; 82525; 82728; 83010; 83036; 83516; 83615; 83880; 85025; 85610; 85652; 86140; 86225; 86235; 86256; 86703

== ENCOUNTER → 2022-02-12 | Outpatient (CLI) | payer MEDICAID, SELFPAY ==
[2022-02-12 15:42] LABS: GGTP 206 U/L (5-55)
[2022-02-14 17:30] LABS: Anti-Smooth Muscle ABS 4 Units (0-19)
[2022-02-14 21:47] LABS: Anti-Mitochondrial AB <20.0 Units (0.0-20.0)
== END | disposition home or self-care (01) ==
LOC: LAB 14:33
PROVIDERS: PCP Family Medicine; Referring Provider Nurse Practitioner Adult Health; Visit Provider Nurse Practitioner Adult Health
DX: R74.8 Abnormal levels of other serum enzymes (principal)
CPT/HCPCS: 36415; 82977; 83516

== ENCOUNTER → 2022-03-13 | Outpatient (CLI) | payer MEDICAID, SELFPAY ==
--- NOTE | 2022-03-13 08:58 | ECHOD_ITS ---
Reason For Study: PHTN Procedure This was a 2D Doppler, Color Flow transthoracic echocardiogram. The study was technically difficult. Definity deferred due to pulmonary pressures. Exam performed in department. Left Ventricle Normal LV size. Moderate concentric left ventricular hypertrophy. Left ventricular systolic function is normal. The estimated ejection fraction is 55 %. Right Ventricle Normal RV size. Normal systolic function. Atria The left atrium is severely enlarged. Normal right atrium. Mitral Valve There is mild mitral annular calcification. Mild-Moderate (1-2+) eccentric mitral valve insufficiency. Tricuspid Valve Normal tricuspid valve. Moderate (2+) tricuspid valve insufficiency. Pulmonary artery systolic pressure is 80 mmHg. Severe pulmonary hypertension. Aortic Valve Trisinus/trileaflet aortic valve. Pulmonic Valve Normal pulmonic valve. Mild (1+) pulmonic valve insufficiency. Great Vessels Normal aortic root. The pulmonary artery is normal size. Normal inferior vena cava. Pericardium/Pleural Trivial pericardial effusion. MMode/2D Measurements & Calculations LVIDd: 5.1 cm IVSd: 1.5 cm CO(Teich): 5.4 l/min LVIDs: 3.0 cm LVPWd: 1.3 cm FS: 42.2 % Ao root diam: 3.2 cm LAV(MOD-bp): 114.5 ml LVAd ap4: 27.6 cm2 LAV(MOD-bp) Indexed: 52.9 ml/m2 LVLd ap4: 7.5 cm LAV(MOD-sp2): 95.4 ml EDV(MOD-sp4): 81.4 ml LAV(MOD-sp4): 110.2 ml EDV(sp4-el): 85.8 ml LVAs ap4: 15.3 cm2 LVLs ap4: 6.6 cm ESV(MOD-sp4): 29.3 ml ESV(sp4-el): 30.2 ml EF(MOD-sp4): 64.0 % EF(sp4-el): 64.8 % CO(MOD-sp4): 3.1 l/min SV(sp4-el): 55.7 ml LA A4 area: 32.8 cm2 SV(MOD-sp4): 52.1 ml LA dimension(2D): 4.9 cm RA A4 area: 16.2 cm2 Time Measurements MV dec time: 0.28 sec Doppler Measurements & Calculations MV E max marjorie: 124.9 cm/sec MV V2 max: 178.4 cm/sec MV A max marjorie: 110.1 cm/sec MV max P.7 mmHg MV dec slope: 439.8 cm/sec2 MV E/A: 1.1 MV V2 mean: 96.8 cm/sec MV mean P.4 mmHg MV V2 VTI: 58.9 cm Ao V2 max: 108.8 cm/sec LV V1 max: 69.3 cm/sec MR max marjorie: 485.9 cm/sec Ao max P.7 mmHg LV V1 max P.9 mmHg MR max P.5 mmHg LV V1 mean P.2 mmHg MR mean marjorie: 383.6 cm/sec LV V1 mean: 52.4 cm/sec MR mean P.6 mmHg LV V1 VTI: 17.4 cm MR VTI: 188.3 cm PA V2 max: 97.7 cm/sec TR max marjorie: 438.8 cm/sec PA max PG (full): -0.07 mmHg TR max P.0 mmHg ECHO/Echo Complete Interpretation Summary Normal LV size. Moderate concentric left ventricular hypertrophy. Left ventricular systolic function is normal. Mild-Moderate (1-2+) eccentric mitral valve insufficiency. Pulmonary artery systolic pressure is 80 mmHg. Severe pulmonary hypertension. Ordering Physician: Jasmyne Sparks Referring Physician: Jasmyne Sparks Performed By: Elisa Rice RCS
== END | disposition home or self-care (01) ==
LOC: CVS 08:56
PROVIDERS: PCP Family Medicine; Referring Provider Physician Assistant Medical; Visit Provider Physician Assistant Medical
DX: I48.0 Paroxysmal atrial fibrillation (principal); I27.21 Secondary pulmonary arterial hypertension; I10 Essential (primary) hypertension
CPT/HCPCS: 93306

== ENCOUNTER 2022-04-20 09:35 | Emergency (ER) | payer MEDICAID, SELFPAY ==
[2022-04-20 09:37] VITALS: BP 131/95; PULSE 71; RESP 16; TEMP 36.3; O2SAT 94; BMI 37.8
--- NOTE | 2022-04-20 10:05 | EDS_ITS ---
HPI History of Present Illness Chief Complaint: Laceration Detail of Chief Complaint: Laceration left long finger Informant: patient Narrative Narrative: Patient presents the emergency department with complaint of a laceration to the left long finger that occurred last evening while cutting pepperoni between 930 and 10 PM. Patient wrapped it up and then this morning when she took the dressing off she had more bleeding. She is on Eliquis. Patient is concerned that she needs stitches. She is unsure of her last tetanus. Patient is right- hand dominant. Tetanus Immunization: Unknown [facility] Medical History Alcohol abuse Alcohol use Allergic rhinitis Anemia Anxiety Bilateral knee pain COPD (chronic obstructive pulmonary disease) CPAP (continuous positive airway pressure) dependence Depression DVT (deep venous thrombosis) Esophageal spasm Essential (primary) hypertension Extremity cyanosis Fatty liver Former smoker Former smoker GERD (gastroesophageal reflux disease) Hiatal hernia History of back problems History of echocardiogram History of edema History of pain when walking History of stress test HLD (hyperlipidemia) Hyperthyroidism Hypomagnesemia Iron deficiency Migraines Morbid obesity with BMI of 40.0-44.9, adult Obstructive sleep apnea Osteoarthritis Patellofemoral syndrome of both knees Pulmonary arterial hypertension Pulmonary embolism (04/26/16) Secondary pulmonary arterial hypertension Tobacco user Tubular adenoma of colon Home Medications cyclobenzaprine 5 mg tablet 5 mg PO TID PRN PRN Spasms 06/18/19 [History Last Taken 01/19/22] nortriptyline 50 mg capsule 50 mg PO QHS PRN PRN Sleep 06/18/19 [History Last Taken 01/19/22] rosuvastatin 5 mg tablet (Crestor) 10 mg PO DAILY 06/18/19 [History Last Taken 01/19/22] acetaminophen 500 mg tablet 1,000 mg PO DAILY PRN PRN Pain 1-10 Or Fever [History Last Taken 01/19/22] cholecalciferol (vitamin D3) 10 mcg (400 unit) capsule 4,000 unit PO DAILY supplement 08/01/20 [History Last Taken 01/19/22] folic acid 1 mg tablet 1 mg PO DAILY supplement 08/01/20 [History Last Taken 01/19/22] levothyroxine 25 mcg tablet 25 mcg PO DAILY thyroid 08/01/20 [History Last Taken 01/19/22] montelukast 10 mg tablet (Singulair) 10 mg PO DAILY 12/28/20 [History Last Taken 01/19/22] multivitamin 1 tab PO DAILY DAILY 12/28/20 [History Last Taken 01/19/22] metoprolol tartrate 25 mg tablet 25 mg PO BID #60 tabs 12/30/20 [Rx Last Taken 01/19/22] losartan 50 mg-hydrochlorothiazide 12.5 mg tablet 1 tab PO DAILY 05/01/21 [History Last Taken 01/19/22] sildenafil (pulm.hypertension) 20 mg tablet 20 mg PO TID 05/01/21 [History Last Taken 01/19/22] flecainide 100 mg tablet 100 mg PO BID #60 tabs 10/11/21 [Rx Last Taken 01/19/22] pantoprazole 40 mg tablet,delayed release 40 mg PO QAM #90 tabs 10/25/21 [Rx Last Taken 01/19/22] dicyclomine 20 mg tablet 20 mg PO TID PRN Cramps 12/31/21 [History Last Taken 01/19/22] apixaban 5 mg tablet (Eliquis) 5 mg PO BID blood thinner 01/20/22 [History Last Taken 01/19/22] fluticasone fur. 100 mcg-umeclid 62.5 mcg-vilant 25 mcg inhalat.powder (Trelegy Ellipta) 1 inh inhalation DAILY COPD 01/20/22 [History Last Taken 01/19/22] hydroxyzine HCl 50 mg tablet 50 mg PO BID PRN anxiety 5 days #10 tabs 01/24/22 [Rx Last Taken Unknown] trazodone 100 mg tablet 100 mg PO QHS PRN PRN Insomnia 14 days #14 tabs 01/24/22 [Rx Last Taken Unknown] ursodiol 300 mg capsule 300 mg PO BID #180 caps 02/04/22 [Rx Last Taken Unknown] Allergy/AdvReac Type Severity Reaction Status Date / Time doxycycline Allergy Hives Verified 04/20/22 09:37 hydrocodone [From Vicodin] AdvReac Itching Verified 04/20/22 09:37 Family History Mother Breast cancer Cancer lung cancer Father Cancer lung cancer Hypertension High cholesterol Surgical History H/O repair of rotator cuff History of History of cardiac catheterization History of cholecystectomy History of hysterectomy History of nasal surgery History of repair of hiatal hernia (12/2020) Social History Smoking Status: Former smoker quit date: 01/11/22 alcohol intake: former year quit: 2021 substance use type: does not use ROS ROS ED Review of Systems ROS Unobtainable: other Constitutional Constitutional ED: Reports lethargy; Denies chills, fever(s), sweats or weight loss Eyes Eyes: Denies blurry vision, change in vision or diplopia ENT ENT ED: Denies rhinorrhea or sore throat Cardiovascular Cardiovascular: Denies chest pain, orthopnea or racing heartbeat Respiratory/Chest Respiratory/Chest: Reports dyspnea and dyspnea on exertion; Denies cough, orthopnea or sputum Gastrointestinal Gastrointestinal: Denies abdominal pain, diarrhea, nausea or vomiting Genitourinary Genitourinary ED: Denies dysuria, hematuria or urinary frequency Musculoskeletal Musculoskeletal: Denies arthralgias, back pain, myalgias or neck pain Integumentary Reports other Details: Laceration to left long finger ; Denies abscess, Abrasions or rash Neurologic Neurologic: Denies headache(s) or weakness Psychiatric Psychiatric: Denies anxiety, depression or suicidal thoughts Endocrine Endocrinology: Denies polydipsia, polyphagia or polyuria Hematologic/Lymphatic Hematologic/Lymphatic: Denies easy bleeding, easy bruising or lymphadenopathy Allergic/Immunologic Allergic/Immunologic ED: Denies mouth swelling, tongue swelling or urticaria EXAM Physical Exam Const Vital Signs: 04/20/22 09:37 Temperature 97.4 F L Temperature Source Temporal Pulse Rate 71 Respiratory Rate 16 Blood Pressure 131/95 H Blood Pressure Mean 107 Pulse Ox 94 Oxygen Delivery Method Room Air Positive well nourished and well developed General Appearance ED: well developed and NAD HEENT Reports TM's clear and moist mucous membranes normocephalic and atraumatic; Negative for trauma or tenderness Tympanic Membrane ED: Yes TM's clear Eyes PERRL and EOMs intact bilaterally General Eye ED: Negative for pale conjunctiva or scleral icterus Neck no lymphadenopathy, supple and no JVD General: Negative for tenderness Chest Wall inspection of chest normal and palpation of chest normal Chest: Negative for tenderness Resp normal respiratory effort and clear to auscultation bilaterally Effort and Inspection: Negative for respiratory distress or pain with movement Auscultation: Negative for rhonchi, wheezes or diminished lung sounds Cardio regular rate, regular rhythm, S1 normal heart sound, S2 normal heart sound and no murmurs Peripheral Pulses: pulses 2+ throughout GI normal to inspection, nondistended, normoactive bowel sounds, soft to palpation, non-tender, non-distended and no masses Back/Spine no CVA tenderness and no thoracic nor lumbar tenderness Extremity Extremity Narrative: Evaluation of the left long finger does reveal a 2 cm laceration that is flap- like over the volar aspect of the distal phalanx over the pulp of the digit. Patient has normal range of motion at the DIP and PIP joint. She is neurovascular intact. General Extremety ED: Negative for edema General Extremity: Negative for edema Neuro oriented x3, CN's II-XII intact bilaterally, no sensory deficits noted and gait normal Sensorium / Orientation: awake, alert, oriented to person, oriented to place and oriented to time Motor Exam: strength 5/5 throughout and strength abnormal Psych mental status grossly normal Skin no rashes or lesions noted and no wounds MDM MDM MDM Narrative Medical decision making narrative: Patient has a 2 cm laceration over the distal pulp of the left long finger that is approximately 12 hours old. 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 She is concerned that is going to continue to bleed especially since she is on Eliquis. Patient was sterilely draped and prepped and laceration was repaired with good wound edge approximation. Please see procedure note. Clean dressing was applied. Patient received a tetanus booster. Patient advised to return if increasing pain, redness, swelling, purulent drainage, or condition worsen anyway. Patient have stitches removed in 10 days by her primary care physician. Procedures Lacerations Left long finger laceration: Length: 24 in Depth: Sub Q Shape: Flap Prep: Sterile Conditions and Shure-Clens Laceration repair: Digital block, Irrigated, Lidocaine and Skin sutures Irrigated (ml): 50 Number of Sutures/[place]: 3 Suture Information: Ethilon, Simple and 5-0 Discharge Plan Triage Chief Complaint: Laceration ED Provider: Dann Madrigal Dx/Rx/DC Orders Clinical Impression: Finger laceration Instructions: ED Laceration, Hand: All Closures Prescriptions: No Action rosuvastatin [Crestor] 5 mg tablet 10 mg PO DAILY nortriptyline 50 mg capsule 50 mg PO QHS PRN PRN (Reason: Sleep) cyclobenzaprine 5 mg tablet 5 mg PO TID PRN PRN (Reason: Spasms) sildenafil (pulm.hypertension) 20 mg tablet 20 mg PO TID losartan-hydrochlorothiazide 50-12.5 mg tablet 1 tab PO DAILY flecainide 100 mg tablet 100 mg PO BID Qty: 60 11RF pantoprazole 40 mg tablet,delayed release (DR/EC) 40 mg PO QAM Qty: 90 0RF acetaminophen 500 MG tablet 1,000 mg PO DAILY PRN PRN (Reason: Pain 1-10 Or Fever) levothyroxine 25 MCG tablet 25 mcg PO DAILY Label Comments: Take 1 tablet by mouth daily folic acid 1 MG tablet 1 mg PO DAILY cholecalciferol (vitamin D3) 10 MCG capsule 4,000 unit PO DAILY multivitamin Tablet 1 tab PO DAILY MDD SUPPLEMEMT montelukast [Singulair] 10 mg tablet 10 mg PO DAILY metoprolol tartrate 25 mg tablet 25 mg PO BID Qty: 60 0RF dicyclomine 20 mg tablet 20 mg PO TID PRN (Reason: Cramps) Trelegy Ellipta 100-62.5-25 mcg blister with device 1 inh INHALATION DAILY Label Comments: INHALE 1 (ONE) PUFF FOLLOWED BY [facility] Eliquis 5 mg tablet 5 mg PO BID trazodone 100 mg Tablet 100 mg PO QHS PRN PRN (Reason: Insomnia) 14 Days Qty: 14 0RF hydroxyzine HCl 50 mg tablet 50 mg PO BID PRN (Reason: anxiety) 5 Days Qty: 10 0RF ursodiol 300 mg capsule 300 mg PO BID Qty: 180 3RF Primary Care Provider: Didier Watkins Referrals: Didier Watkins MD [Primary Care Provider] - 10 Day for suture removal Disposition Disposition: Home, Self Care
[2022-04-20] MEDS: Lidocaine 1% (20 ml mdv) 20 ML Vial 8 ML INFILT (10:23)
[2022-04-20] MEDS: Diphth,Pertuss(Acell),Tet Vac 0.5 ML Vial IM (10:23)
== END 2022-04-20 10:50 | disposition home or self-care (01) ==
PROVIDERS: Emergency Provider Emergency Medicine; PCP Family Medicine; Visit Provider Emergency Medicine
DX: S61.213A Laceration without foreign body of left middle finger without damage to nail, initial encounter (principal); J44.9 Chronic obstructive pulmonary disease, unspecified; I27.21 Secondary pulmonary arterial hypertension; E66.01 Morbid (severe) obesity due to excess calories; I10 Essential (primary) hypertension; Z87.891 Personal history of nicotine dependence; E78.5 Hyperlipidemia, unspecified; W26.0XXA Contact with knife, initial encounter; Z86.718 Personal history of other venous thrombosis and embolism; F32.A Depression, unspecified; F41.9 Anxiety disorder, unspecified; K76.0 Fatty (change of) liver, not elsewhere classified; K21.9 Gastro-esophageal reflux disease without esophagitis; E05.90 Thyrotoxicosis, unspecified without thyrotoxic crisis or storm; Z86.711 Personal history of pulmonary embolism; G47.33 Obstructive sleep apnea (adult) (pediatric); Z79.899 Other long term (current) drug therapy; Z79.01 Long term (current) use of anticoagulants; Z23 Encounter for immunization
CPT/HCPCS: 12001; 90471; 90715; 99283

== ENCOUNTER 2022-05-16 08:00 | Inpatient (IN) | payer MEDICAID, SELFPAY ==
[2022-05-16] VITALS (25 sets, daily range): BP systolic 114–180; BP diastolic 58–126; PULSE 104–184; RESP 17–30; TEMP 36.2–37.3; O2SAT 92–100; BMI 38.0; BMI 38.1
--- NOTE | 2022-05-16 08:23 | EKG12_ITS ---
Test Reason : Afib Blood Pressure : / mmHG Vent. Rate : 158 BPM Atrial Rate : 000 BPM P-R Int : 000 ms QRS Dur : 076 ms QT Int : 298 ms P-R-T Axes : 000 062 007 degrees QTc Int : 483 ms Atrial fibrillation with rapid ventricular response Nonspecific ST abnormality Abnormal ECG Confirmed by PHAN DIAZ, NIKOLAS ([id number]), editor sound MARY JO LYN ([id number]) on 05/18/2022 9:30:20 AM Referred By: Confirmed By:NIKOLAS CHISHOLM MD
--- NOTE | 2022-05-16 08:25 | EDS_ITS ---
HPI History of Present Illness Chief Complaint: Palpitations Detail of Chief Complaint: Palpitations and chest discomfort since yesterday. Informant: patient Narrative Narrative: Patient presents the emergency department with palpitations and racing heart since yesterday. Patient started not feeling well about 5 or 6 days ago when she started having some shortness of breath that she thought was related to her COPD. She is intermittently had heart rates in the low 100s but then would go back into the 80s. Patient does have prior history of A. fib and was admitted for this about a year ago. Patient is on Eliquis as well as flecainide and metoprolol. Patient denies recent illness. Patient has had the COVID-vaccine. Denies cough. She describes some chest discomfort retrosternally. Patient does describe some dyspnea. Patient did not take her Eliquis dose yesterday or today. [facility] Medical History (Updated 05/16/22 @ 09:[address] Dann Madrigal, DO) Alcohol abuse Alcohol use Allergic rhinitis Anemia Anxiety Atrial fibrillation Bilateral knee pain COPD (chronic obstructive pulmonary disease) CPAP (continuous positive airway pressure) dependence Depression DVT (deep venous thrombosis) Esophageal spasm Essential (primary) hypertension Extremity cyanosis Fatty liver Former smoker Former smoker GERD (gastroesophageal reflux disease) Hiatal hernia History of back problems History of echocardiogram History of edema History of pain when walking History of stress test HLD (hyperlipidemia) Hyperthyroidism Hypomagnesemia Iron deficiency Migraines Morbid obesity with BMI of 40.0-44.9, adult Obstructive sleep apnea Osteoarthritis Patellofemoral syndrome of both knees Pulmonary arterial hypertension Pulmonary embolism (04/26/16) Secondary pulmonary arterial hypertension Tobacco user Tubular adenoma of colon Home Medications cyclobenzaprine 5 mg tablet 5 mg PO TID PRN PRN Spasms 06/18/19 [History Last Taken 01/19/22] nortriptyline 50 mg capsule 50 mg PO QHS PRN PRN Sleep 06/18/19 [History Last Taken 01/19/22] rosuvastatin 5 mg tablet (Crestor) 10 mg PO DAILY 06/18/19 [History Last Taken 01/19/22] acetaminophen 500 mg tablet 1,000 mg PO DAILY PRN PRN Pain 1-10 Or Fever 08/01/20 [History Last Taken 01/19/22] cholecalciferol (vitamin D3) 10 mcg (400 unit) capsule 4,000 unit PO DAILY supplement 08/01/20 [History Last Taken 01/19/22] folic acid 1 mg tablet 1 mg PO DAILY supplement 08/01/20 [History Last Taken 01/19/22] levothyroxine 25 mcg tablet 25 mcg PO DAILY thyroid 08/01/20 [History Last Taken 01/19/22] montelukast 10 mg tablet (Singulair) 10 mg PO DAILY 12/28/20 [History Last Taken 01/19/22] multivitamin 1 tab PO DAILY DAILY 12/28/20 [History Last Taken 01/19/22] metoprolol tartrate 25 mg tablet 25 mg PO BID #60 tabs 12/30/20 [Rx Last Taken 01/19/22] losartan 50 mg-hydrochlorothiazide 12.5 mg tablet 1 tab PO DAILY 05/01/21 [History Last Taken 01/19/22] sildenafil (pulm.hypertension) 20 mg tablet 20 mg PO TID 05/01/21 [History Last Taken 01/19/22] flecainide 100 mg tablet 100 mg PO BID #60 tabs 10/11/21 [Rx Last Taken 01/19/22] pantoprazole 40 mg tablet,delayed release 40 mg PO QAM #90 tabs 10/25/21 [Rx Last Taken 01/19/22] dicyclomine 20 mg tablet 20 mg PO TID PRN Cramps 12/31/21 [History Last Taken 01/19/22] apixaban 5 mg tablet (Eliquis) 5 mg PO BID blood thinner 01/20/22 [History Last Taken 01/19/22] fluticasone fur. 100 mcg-umeclid 62.5 mcg-vilant 25 mcg inhalat.powder (Trelegy Ellipta) 1 inh inhalation DAILY COPD 01/20/22 [History Last Taken 01/19/22] trazodone 100 mg tablet 100 mg PO QHS PRN PRN Insomnia 14 days #14 tabs 01/24/22 [Rx Last Taken Unknown] ursodiol 300 mg capsule 300 mg PO BID #180 caps 02/04/22 [Rx Last Taken Unknown] acetaminophen 300 mg-codeine 30 mg tablet 1 tab PO Q6H PRN PRN Pain 05/16/22 [History Last Taken Unknown] bupropion HCl 300 mg 24 hr tablet, extended release 300 mg PO DAILY 05/16/22 [History Last Taken Unknown] fluticasone 500 mcg-salmeterol 50 mcg/dose blistr powdr for inhalation (Advair Diskus) 1 inh inhalation BID 05/16/22 [History Last Taken Unknown] Allergy/AdvReac Type Severity Reaction Status Date / Time doxycycline Allergy Hives Verified 05/16/22 08:00 hydrocodone [From Vicodin] AdvReac Itching Verified 05/16/22 08:00 Family History Mother Breast cancer Cancer lung cancer Father Cancer lung cancer Hypertension High cholesterol Surgical History H/O repair of rotator cuff History of History of cardiac catheterization History of cholecystectomy History of hysterectomy History of nasal surgery History of repair of hiatal hernia (12/2020) Social History Smoking Status: Former smoker quit date: 01/11/22 alcohol intake: former year quit: 2021 substance use type: does not use ROS ROS ED Review of Systems ROS Unobtainable: other Constitutional Constitutional ED: Reports lethargy; Denies chills, fever(s), sweats or weight loss Eyes Eyes: Denies blurry vision, change in vision or diplopia ENT ENT ED: Denies rhinorrhea or sore throat Cardiovascular Cardiovascular: Reports chest pain, palpitations and racing heartbeat; Denies orthopnea Respiratory/Chest Respiratory/Chest: Reports dyspnea and dyspnea on exertion; Denies cough, orthopnea or sputum Gastrointestinal Gastrointestinal: Denies abdominal pain, diarrhea, nausea or vomiting Genitourinary Genitourinary ED: Denies dysuria, hematuria or urinary frequency Musculoskeletal Musculoskeletal: Denies arthralgias, back pain, myalgias or neck pain Integumentary Denies abscess, Abrasions or rash Neurologic Neurologic: Denies headache(s) or weakness Psychiatric Psychiatric: Denies anxiety, depression or suicidal thoughts Endocrine Endocrinology: Denies polydipsia, polyphagia or polyuria Hematologic/Lymphatic Hematologic/Lymphatic: Denies easy bleeding, easy bruising or lymphadenopathy Allergic/Immunologic Allergic/Immunologic ED: Denies mouth swelling, tongue swelling or urticaria EXAM Physical Exam Const Vital Signs: 05/16/22 08:02 05/16/22 08:07 05/16/22 08:07 Temperature 97.4 F L Temperature Source Temporal Pulse Rate 184 H 150 H Respiratory Rate 24 H 30 H Respiratory Effort Short of Breath Respiratory Pattern Tachypnea Blood Pressure 146/113 H 163/123 H Blood Pressure Mean 124 136 Pulse Ox 96 96 Oxygen Delivery Method Room Air Room Air Oxygen Flow Rate (L/min) 05/16/22 08:31 05/16/22 08:31 05/16/22 09:15 Temperature Temperature Source Pulse Rate 123 H 122 H Respiratory Rate 24 H 24 H Respiratory Effort Respiratory Pattern Blood Pressure 142/81 H 160/106 H Blood Pressure Mean 101 124 Pulse Ox 97 97 99 Oxygen Delivery Method Nasal Cannula Nasal Cannula Oxygen Flow Rate (L/min) 2 2 2 Positive well nourished and well developed General Appearance ED: well developed and NAD HEENT Reports TM's clear and moist mucous membranes normocephalic and atraumatic; Negative for trauma or tenderness Tympanic Membrane ED: Yes TM's clear Eyes PERRL and EOMs intact bilaterally General Eye ED: Negative for pale conjunctiva or scleral icterus Neck no lymphadenopathy, supple and no JVD General: Negative for tenderness Chest Wall inspection of chest normal and palpation of chest normal Chest: Negative for tenderness Resp normal respiratory effort and clear to auscultation bilaterally Effort and Inspection: Negative for respiratory distress or pain with movement Auscultation: Negative for rhonchi, wheezes or diminished lung sounds Cardio S1 normal heart sound, S2 normal heart sound and no murmurs Rate: tachycardic Rhythm: abnormal rhythm Peripheral Pulses: pulses 2+ throughout GI normal to inspection, nondistended, normoactive bowel sounds, soft to palpation, non-tender, non-distended and no masses Back/Spine no CVA tenderness and no thoracic nor lumbar tenderness Extremity normal to inspection General Extremety ED: Negative for edema General Extremity: Negative for edema Neuro oriented x3, CN's II-XII intact bilaterally, no sensory deficits noted and gait normal Sensorium / Orientation: awake, alert, oriented to person, oriented to place and oriented to time Motor Exam: strength 5/5 throughout and strength abnormal Psych mental status grossly normal Skin no rashes or lesions noted and no wounds MDM MDM MDM Narrative Medical decision making narrative: IV line established on arrival. Patient placed on a monitor worker. Patient received Cardizem 20 mg IV bolus which did improve her heart rate down to the low 1 teens. She was given 25 mg Cardizem bolus and started on a Cardizem drip. Patient tells me she has not been consistent in taking her Eliquis. She was given morphine and Zofran for her pain. Patient states that she did start drinking again recently and was drinking alcohol yesterday. At this point I will discuss case with hospitalist evaluate patient for admission for chest pain and A. fib RVR. I did order a BNP. I will start patient on Rocephin and Zithromax IV. After discussing case with cigarette making machine catcher was felt patient should be admitted. Discussed case with hospitalist who recommended holding off on the antibiotics at this time and he will evaluate further. Lab Data Attestation: I reviewed the patient's lab results. Labs: Laboratory Results - last 24 hr 05/16/22 05/16/22 08:15 08:15 WBC 8.0 RBC 4.25 Hgb 13.3 Hct 40.0 MCV 94.1 MCH 31.3 MCHC 33.3 RDW Std Deviation 49.4 H RDW Coeff of [place] 14.5 Plt Count 183 MPV 9.0 Immature Gran % (Auto) 0.900 Neut % (Auto) 78.2 H Lymph % (Auto) 10.7 L [place] % (Auto) 7.3 Eos % (Auto) 2.1 Baso % (Auto) 0.8 Absolute Neuts (auto) 6.2 Absolute Lymphs (auto) 0.85 Nucleated RBC % 0 Sodium 140 Potassium 4.1 Chloride 108 H Carbon Dioxide 21.0 Anion Gap 11 BUN 24 H Creatinine 1.07 H Estim Creat Clear Calc 59.13 Est GFR (MDRD) Af Amer 69 Est GFR (MDRD) Non-Af 57 L BUN/Creatinine Ratio 22.4 H Glucose 136 H Calcium 8.6 Magnesium 1.5 L Troponin I High Sens 11 Radiography Diagnostic Testing: Clinical Impression(s) from Imaging Studies Chest X-Ray 05/16/22 08:30 IMPRESSION: Findings suggestive of vascular congestion with a right middle lobe infiltrate. Mild cardiomegaly. Electronically Signed: George Kaplan MD at 8:46 EDT , Chest are obtained interpreted by myself as increased vascular congestion and increased markings in the right lower lobe. Patient x-ray interpreted by radiology as suggestive of vascular congestion with right middle lobe inf iltrate. EKG Initial EKG: Attestation: I personally reviewed and interpreted this EKG as follows: Comments: Atrial fibrillation with ventricular rate of [address] changes Discharge Plan Triage Chief Complaint: Palpitations ED Provider: Dann Madrigal Dx/Rx/DC Orders Clinical Impression: Atrial fibrillation with rapid ventricular response, Chest pain, Acute dyspnea Prescriptions: No Action rosuvastatin [Crestor] 5 mg tablet 10 mg PO DAILY nortriptyline 50 mg capsule 50 mg PO QHS PRN PRN (Reason: Sleep) cyclobenzaprine 5 mg tablet 5 mg PO TID PRN PRN (Reason: Spasms) sildenafil (pulm.hypertension) 20 mg tablet 20 mg PO TID losartan-hydrochlorothiazide 50-12.5 mg tablet 1 tab PO DAILY flecainide 100 mg tablet 100 mg PO BID Qty: 60 11RF pantoprazole 40 mg tablet,delayed release (DR/EC) 40 mg PO QAM Qty: 90 0RF acetaminophen 500 MG tablet 1,000 mg PO DAILY PRN PRN (Reason: Pain 1-10 Or Fever) levothyroxine 25 MCG tablet 25 mcg PO DAILY Label Comments: Take 1 tablet by mouth daily folic acid 1 MG tablet 1 mg PO DAILY cholecalciferol (vitamin D3) 10 MCG capsule 4,000 unit PO DAILY multivitamin Tablet 1 tab PO DAILY MDD SUPPLEMEMT montelukast [Singulair] 10 mg tablet 10 mg PO DAILY metoprolol tartrate 25 mg tablet 25 mg PO BID Qty: 60 0RF dicyclomine 20 mg tablet 20 mg PO TID PRN (Reason: Cramps) Trelegy Ellipta 100-62.5-25 mcg blister with device 1 inh INHALATION DAILY Label Comments: INHALE 1 (ONE) PUFF FOLLOWED BY [employer] [facility] Eliquis 5 mg tablet 5 mg PO BID trazodone 100 mg Tablet 100 mg PO QHS PRN PRN (Reason: Insomnia) 14 Days Qty: 14 0RF acetaminophen-codeine 300-30 mg tablet 1 tab PO Q6H PRN PRN (Reason: Pain) Label Comments: TAKE 1 TABLET EVERY 4 TO 6 HOURS fluticasone propion-salmeterol [Advair Diskus] 500-50 mcg/dose blister with device 1 inh INHALATION BID bupropion HCl 300 mg tablet extended release 24 hr 300 mg PO DAILY ursodiol 300 mg capsule 300 mg PO BID Qty: 180 3RF Primary Care Provider: Didier Watkins Referrals: Didier Watkins MD [Primary Care Provider] -
[2022-05-16] MEDS: dilTIAZem 25 MG/5 ML Vial 20 MG IV BOLUS (08:27)
[2022-05-16 08:30] LABS: Absolute Lymphocyte Count 0.85 X10^3/uL (0.83-4.51); Absolute Neutrophil Count 6.2 X10^3/uL (2.0-7.7); Basophil# 0.06 X10^3/uL; Basophil% 0.8 % (0-1); Eosinophil# 0.17 X10^3/uL; Eosinophils% 2.1 % (0-5); Hemoglobin 13.3 g/dL (12.0-15.0); Lymphocyte # 0.85 X10^3/ul (0.83-4.51); Lymphocyte % 10.7 % (19-41); Mean Corp Hgb Conc 33.3 g/dL (32-36); Mean Corpuscular Hgb 31.3 pg (27.0-32.0); Mean Corpuscular Volume 94.1 fL (81-99); Monocyte# 0.58 X10^3/uL; Monocyte% 7.3 % (0-10); NRBC Flagged by Analyzer 0 % (0-5); Neutrophil # 6.22 X10^3/uL (2.7-7.7); Neutrophil % 78.2 % (47-70); Platelet Count 183 K/mm3 (150-450); RBC Distribution Width CV 14.5 % (11.6-14.6); RBC Distribution Width SD 49.4 fl (35.1-43.9); Red Blood Count 4.25 M/mm3 (4.2-5.4)
--- NOTE | 2022-05-16 08:30 | RAD_ITS ---
STUDY: X-RAY CHEST REASON FOR EXAM: Female, 51 years old. Chest pain . Increasing shortness of breath. TECHNIQUE: Single AP portable view of the chest. COMPARISON: Comparison is made with prior study 10/10/2021. FINDINGS: EKG electrodes are seen. Increased markings in the right middle lobe suggestive of right middle lobe infiltrate. Mild degree of vascular congestion. There is no demonstrated pleural abnormality. There is mild cardiac enlargement. Normal mediastinum and mayra. Normal visualized pulmonary arteries. Normal visualized aortic arch and descending thoracic aorta. Normal visualized thoracic spine. Metallic anchor overlying the left humeral head suggestive of prior rotator cuff surgery. There is no demonstrated abnormality of the visualized soft tissue structures of the upper abdomen. RAD/Chest 1 View (Portable) IMPRESSION: Findings suggestive of vascular congestion with a right middle lobe infiltrate. Mild cardiomegaly. Electronically Signed: George Kaplan MD at 8:46 EDT ,
[2022-05-16] MEDS: 0.9% Normal Saline 1,000 ML 150 ML IV (08:38)
[2022-05-16 08:49] LABS: Anion Gap 11 (5-15); BUN 24 mg/dL (7-18); BUN/Creat Ratio 22.4 RATIO (10-20); Calcium,Total 8.6 mg/dL (8.5-10.1); Chloride 108 mmol/L (98-107); Creatinine, Serum 1.07 mg/dL (0.55-1.02); EST Glomerular Filtration Rate 57 mL/min (>60); Est Glom Filt Rate - Afr Amer 69 mL/min (>60); Estimated Creatinine Clearance 59.13 ml/min; Glucose 136 mg/dL (74-106); Magnesium 1.5 mg/dL (1.6-2.6); Potassium 4.1 mmol/L (3.5-5.1); Sodium Level 140 mmol/L (136-145); Troponin-I HS (w/2H Reflex) 11 pg/mL (3.0-54.0)
[2022-05-16] MEDS: dilTIAZem 25 MG/5 ML Vial IV BOLUS (08:53)
[2022-05-16] MEDS: Ondansetron 4 MG/2 ML Vial IV (09:01)
[2022-05-16] MEDS: Morphine 4 MG/ML Syringe IV (09:03)
[2022-05-16 09:30] LABS: BNP,B-Type NATRIURETIC PEPTIDE 230.3 pg/mL (0-100)
[2022-05-16 10:27] LABS: Reflex Troponin-HS? (from REC) Y
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
[2022-05-16 11:13] LABS: Troponin-I HS 10 pg/mL (3.0-54.0)
[2022-05-16] MEDS: oxyCODONE 5 MG Tablet 10 MG PO ×3 (11:38→21:39)
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
[2022-05-16 11:46] LABS: Thyroid Stim Hormone (TSH) 3.69 uIU/mL (0.358-3.74)
[2022-05-16] MEDS: Losartan Potassium 50 MG Tablet PO (12:58)
[2022-05-16] MEDS: Furosemide 40 MG/4 ML Vial IV (12:59)
[2022-05-16] MEDS: Amiodarone 360 MG in Dextrose 5% Viaflo Bag 192.8 ML 33.3 MG CONT INF (13:15)
[2022-05-16] MEDS: SILDENAFIL CITRATE 20 MG TABLET PO ×2 (15:01→20:00)
[2022-05-16 15:31] LABS: Troponin-I HS 11 pg/mL (3.0-54.0)
[2022-05-16] MEDS: Amiodarone 360 MG in Dextrose 5% Viaflo Bag 192.8 ML 16.7 MG CONT INF (19:53)
[2022-05-16] MEDS: APIXABAN 5 MG TABLET PO (19:58)
[2022-05-16] MEDS: Ursodiol 250 MG Tablet PO (19:58)
[2022-05-16] MEDS: Atorvastatin Calcium 10 MG Tablet PO (19:59)
[2022-05-16] MEDS: FLUTICASONE/UMECLIDIN/VILANTER 1 EACH BLST.W.DEV INHALATION (21:37)
[2022-05-17] VITALS (27 sets, daily range): BP systolic 82–125; BP diastolic 49–88; PULSE 92–127; RESP 15–24; TEMP 36.2–36.6; O2SAT 91–100
[2022-05-17] MEDS: oxyCODONE 5 MG Tablet 10 MG PO ×4 (02:48→22:12)
[2022-05-17] MEDS: Levothyroxine 25 MCG TABLET PO (05:09)
[2022-05-17] MEDS: SILDENAFIL CITRATE 20 MG TABLET PO ×3 (05:10→22:17)
[2022-05-17 05:54] LABS: Absolute Lymphocyte Count 0.79 X10^3/uL (0.83-4.51); Absolute Neutrophil Count 10.5 X10^3/uL (2.0-7.7); Basophil# 0.07 X10^3/uL; Basophil% 0.6 % (0-1); Eosinophils% 1.6 % (0-5); Hematocrit 40.8 % (37-47); Hemoglobin 13.1 g/dL (12.0-15.0); Lymphocyte # 0.79 X10^3/ul (0.83-4.51); Lymphocyte % 6.3 % (19-41); Mean Corp Hgb Conc 32.1 g/dL (32-36); Mean Corpuscular Hgb 30.5 pg (27.0-32.0); Mean Corpuscular Volume 95.1 fL (81-99); Mean Platelet Vol. 9.1 fl (6.2-12.0); Monocyte# 0.77 X10^3/uL; Monocyte% 6.2 % (0-10); NRBC Flagged by Analyzer 0 % (0-5); Neutrophil # 10.54 X10^3/uL (2.7-7.7); Neutrophil % 84.1 % (47-70); Platelet Count 196 K/mm3 (150-450); RBC Distribution Width CV 14.7 % (11.6-14.6); RBC Distribution Width SD 50.7 fl (35.1-43.9); Red Blood Count 4.29 M/mm3 (4.2-5.4); White Blood Count 12.5 K/mm3 (4.4-11.0)
[2022-05-17 06:19] LABS: Anion Gap 10 (5-15); BUN 28 mg/dL (7-18); BUN/Creat Ratio 20.9 RATIO (10-20); Calcium,Total 8.6 mg/dL (8.5-10.1); Chloride 102 mmol/L (98-107); Creatinine, Serum 1.34 mg/dL (0.55-1.02); EST Glomerular Filtration Rate 44 mL/min (>60); Est Glom Filt Rate - Afr Amer 53 mL/min (>60); Estimated Creatinine Clearance 47.22 ml/min; Glucose 128 mg/dL (74-106); Potassium 3.6 mmol/L (3.5-5.1); Sodium Level 134 mmol/L (136-145)
[2022-05-17] MEDS: Amiodarone 360 MG in Dextrose 5% Viaflo Bag 192.8 ML 16.7 MG CONT INF (08:45)
[2022-05-17] MEDS: Pantoprazole Sodium 40 MG Tablet PO (08:48)
[2022-05-17] MEDS: Losartan Potassium 50 MG Tablet PO (08:48)
[2022-05-17] MEDS: Multivitamins,Therapeutic Tablet 1 TABLET PO (08:48)
[2022-05-17] MEDS: Folic Acid 1 MG Tablet PO (08:48)
[2022-05-17] MEDS: APIXABAN 5 MG TABLET PO ×2 (08:48→22:16)
[2022-05-17] MEDS: Furosemide 40 MG Tablet PO (08:49)
[2022-05-17] MEDS: Cholecalciferol (VIT D3) 25 MCG TABLET (1,000 UNITS) 100 MCG PO (08:49)
[2022-05-17] MEDS: Montelukast 10 MG Tablet PO (08:49)
[2022-05-17] MEDS: buPROPion (XL) 300 MG TABLET.XL PO (08:49)
[2022-05-17] MEDS: Ursodiol 250 MG Tablet PO ×2 (08:50→22:16)
--- NOTE | 2022-05-17 08:58 | PCM.PN.HOSP ---
Subjective Subjective Feels ok. Objective Data Objective Data Vital Signs: Vital Signs Temp Pulse Resp BP Pulse Ox O2 Del Method O2 Flow Rate 36.6 C 118 H 20 H 113/81 H 98 Room Air 2 05/17/22 02:00 05/17/22 08:45 05/17/22 08:45 05/17/22 08:45 05/17/22 08:45 05/17/22 08:45 05/16/22 12:00 Oxygen Flow Rate (L/min) 2 Oxygen Delivery Method Room Air Weight: 110.5 kg Body Mass Index (BMI) 38.1 Intake & Output: Intake and Output for Last 24 Hours 05/15/22 05/16/22 05/17/22 23:59 23:59 23:59 Intake Total 1535.50 / 1550.50 720.00 / 720.00 Output Total 1000 / 1000 Balance 535.50 / 550.50 720.00 / 720.00 Lab / Micro Data Result Diagrams: 05/17/22 05:41 05/17/22 05:41 Labs: Laboratory Results - last 24 hr 05/16/22 08:15: B-Natriuretic Peptide 230.3 H 05/16/22 10:48: Troponin I High Sens 10 05/16/22 10:48: TSH 3.69 05/16/22 14:30: Troponin I High Sens 11 05/17/22 05:41: WBC 12.5 H, RBC 4.29, Hgb 13.1, Hct 40.8, MCV 95.1, MCH 30.5, MCHC 32.1, RDW Std Deviation 50.7 H, RDW Coeff of Leighton 14.7 H, Plt Count 196, MPV 9.1, Immature Gran % (Auto) 1.200 H, Neut % (Auto) 84.1 H, Lymph % (Auto) 6.3 L, Taliaferro % (Auto) 6.2, Eos % (Auto) 1.6, Baso % (Auto) 0.6, Absolute Neuts (auto) 10.5 H, Absolute Lymphs (auto) 0.79 L, Nucleated RBC % 0 05/17/22 05:41: Sodium 134 L, Potassium 3.6, Chloride 102, Carbon Dioxide 22.0, Anion Gap 10, BUN 28 H, Creatinine 1.34 H, Estim Creat Clear Calc 47.22, Est GFR (MDRD) Af Amer 53 L, Est GFR (MDRD) Non-Af 44 L, BUN/Creatinine Ratio 20.9 H, Glucose 128 H, Calcium 8.6 Micro: Microbiology 05/16/22 09:22 Nasal Secretion SARS-CoV-2 Antigen (Rapid) - Final Radiography Diagnostic Testing: Radiology Impression Chest X-Ray 05/16/22 08:30 IMPRESSION: Findings suggestive of vascular congestion with a right middle lobe infiltrate. Mild cardiomegaly. Electronically Signed: George Kaplan MD at 8:46 EDT , Physical Exam Const alert and no apparent distress Resp normal respiratory effort and no retractions Cardio Cardio Narrative: Irregularly irregular GI normal to inspection, nondistended, normoactive bowel sounds Psych affect normal Assessment & Plan Assessment/Plan (1) Atrial fibrillation with rapid ventricular response: PLAN: Ongoing Still on diltiazem drip at 10 mg/h Amiodarone drip discontinued and patient has been started on metoprolol titrate 50 mg twice daily (2) Heart failure with preserved ejection fraction: PLAN: Patient had a normal LV back on 2D echocardiogram from March 13. Is complicated by pulmonary artery systolic pressure of 80 mmHg. Received dose of IV furosemide. I personally reviewed the x-ray to look like more like pulmonary vascular congestion rather than pneumonia. (3) Alcohol use: PLAN: Patient has been drinking [employer] since April 15. She and her are splitting a 2 gallon bottle of [employer] and finishing that every 2 to 3 days. No clear evidence of alcohol withdrawal at this time. Patient follows with [facility] and is active in their care Will do a CIWA and treat accordingly. Patient does start going through alcohol withdrawal then will initiate phenobarbital taper PLAN: Plan Chronic conditions Pulmonary hypertension: Severe. Likely due to her underlying lung disease including FADY and COPD. That would be type III. Continue with sildenafil. Anxiety: Continue with bupropion Hyperlipidemia: Continue with statin Hypothyroidism: Continue levothyroxine History of pulmonary embolism COPD: Stable at this time. FADY: May continue with her CPAP as she takes at home so I can bring it in. Hypertension: Continue losartan. Might hold off on HCTZ as she will be receiving Lasix. VTE prophylaxis: Not indicated as patient is already anticoagulated CODE STATUS: Addressed with the patient. Patient wished to be full code. Charges/Coding Visit Charges Inpatient E&M: 31579 Subs Hosp L2
--- NOTE | 2022-05-17 10:19 | CASEMGMT ---
Patient does not have advance directives and per admission questions declined information. Melissa Cueva [employer]
--- NOTE | 2022-05-17 10:22 | PN.CARD_ITS ---
Subjective Subjective Pt seen and examined. pt notes that she is feeling better than yesterday. She is aware of her atrial fib, she notes that it feels like a squeezing in her chest and feels the irregular heart beats. Her breathing feels better. Objective Data Vital Signs: Vital Signs Temp Pulse Resp BP Pulse Ox O2 Del Method O2 Flow Rate 97.9 F 118 H 20 H 113/81 H 98 Room Air 3 05/17/22 02:00 05/17/22 08:45 05/17/22 08:45 05/17/22 08:45 05/17/22 08:45 05/17/22 08:45 05/17/22 07:50 Oxygen Flow Rate (L/min) 3 Oxygen Delivery Method Room Air Weight: 243 lb 9.773 oz Body Mass Index (BMI) 38.1 Intake & Output: Intake and Output for Last 24 Hours 05/15/22 05/16/22 05/17/22 23:59 23:59 23:59 Intake Total 1535.50 / 1550.50 720.00 / 720.00 Output Total 1000 / 1000 Balance 535.50 / 550.50 720.00 / 720.00 Lab / Micro Data Result Diagrams: 05/17/22 05:41 05/17/22 05:41 Labs: Laboratory Results - last 24 hr 05/16/22 10:48: Troponin I High Sens 10 05/16/22 10:48: TSH 3.69 05/16/22 14:30: Troponin I High Sens 11 05/17/22 05:41: WBC 12.5 H, RBC 4.29, Hgb 13.1, Hct 40.8, MCV 95.1, MCH 30.5, MCHC 32.1, RDW Std Deviation 50.7 H, RDW Coeff of Leighton 14.7 H, Plt Count 196, MPV 9.1, Immature Gran % (Auto) 1.200 H, Neut % (Auto) 84.1 H, Lymph % (Auto) 6.3 L, Dawson % (Auto) 6.2, Eos % (Auto) 1.6, Baso % (Auto) 0.6, Absolute Neuts (auto) 10.5 H, Absolute Lymphs (auto) 0.79 L, Nucleated RBC % 0 05/17/22 05:41: Sodium 134 L, Potassium 3.6, Chloride 102, Carbon Dioxide 22.0, Anion Gap 10, BUN 28 H, Creatinine 1.34 H, Estim Creat Clear Calc 47.22, Est GFR (MDRD) Af Amer 53 L, Est GFR (MDRD) Non-Af 44 L, BUN/Creatinine Ratio 20.9 H, Glucose 128 H, Calcium 8.6 Micro: Microbiology 05/16/22 09:22 Nasal Secretion SARS-CoV-2 Antigen (Rapid) - Final Cardiology Labs/Tests 05/17/22 05:41: WBC 12.5 H, RBC 4.29, Hgb 13.1, Hct 40.8, MCV 95.1, MCH 30.5, MCHC 32.1, Plt Count 196, MPV 9.1, Immature Gran % (Auto) 1.200 H, Neut % (Auto) 84.1 H, Lymph % (Auto) 6.3 L, Dawson % (Auto) 6.2, Eos % (Auto) 1.6, Baso % (Auto) 0.6, Absolute Neuts (auto) 10.5 H, Nucleated RBC % 0 05/17/22 05:41: Sodium 134 L, Potassium 3.6, Chloride 102, Carbon Dioxide 22.0, Anion Gap 10, BUN 28 H, Creatinine 1.34 H, Est GFR (MDRD) Af Amer 53 L, Est GFR (MDRD) Non-Af 44 L, BUN/Creatinine Ratio 20.9 H, Glucose 128 H, Calcium 8.6 Rhythm: Afib with HR of 106 Physical Exam Const alert, oriented x3 and no apparent distress Nutritional Appearance: obese HEENT normocephalic, head/scalp atraumatic, hearing grossly normal bilaterally, external ears normal, nasal mucous membranes and turbinates normal and moist oral mucous membranes Eyes PERRL, EOMs intact bilaterally and conjunctivae normal Neck full ROM, no lymphadenopathy, supple and no JVD Resp normal respiratory effort and clear to auscultation bilaterally Cardio Rate: tachycardic Rhythm: abnormal rhythm irregularly irregular Peripheral Pulses: pulses 2+ throughout GI normal to inspection, nondistended, normoactive bowel sounds, soft to palpation and non-tender Extremity normal to inspection, normal capillary refill and no clubbing, cyanosis or edema Neuro oriented x3, CN's II-XII intact bilaterally, moves all extremities, no focal motor deficits and no sensory deficits noted Psych mental status grossly normal Assessment & Plan Assessment/Plan (1) Atrial fibrillation with rapid ventricular response: PLAN: * HR improving, will hold Cardizem IV and increase metoprolol to 50 mg BID. Will monitor HR. If HR is controlled will then switch to oral amiodarone. * Once HR is controlled, Plan is to send home on amiodarone taper of 200 mg BID for 2 weeks, then 200 mg once a day. Metoprolol 50 mg BID and consider DCCV on OP basis. Will plan on switching back to flecainide sometime on an OP basis. * Patient will continue with Eliquis, if she remains in afib, once she has been anticoagulated for 30 days will plan of DCCV on OP basis. * It is likely that patient's EtOH use has contributed to her atrial fibrillation in addition to not being compliant with her medications. (2) Essential (primary) hypertension: PLAN: * Blood pressure on lower side. Will hold IV cardizem and monitor. Will continue with losartan. (3) Heart failure with preserved ejection fraction: PLAN: * BNP is slightly elevated, this is likely related to her atrial fib with RVR. Continue with lasix, her HCTZ was stopped. (4) Pulmonary hypertension: PLAN: * Patient does have severe pulmonary hypertension. Recommend continuing current medication for this. (5) Alcohol use: PLAN: * Encouraged patient to discontinue EtOH use. * Encourage patient to follow through with counseling on this. PLAN: Plan This case was discussed with Dr. Benavides, he agrees with plan of care. Charges/Coding Visit Charges Inpatient E&M: 25842 Subs Hosp L3
[2022-05-17] MEDS: Metoprolol Tartrate 50 MG Tablet PO ×2 (11:11→22:16)
--- NOTE | 2022-05-17 13:30 | CASEMGMT ---
CATHIE GARNER assessment: Face to Face with patient for initial transition planning/care coordination assessment. CATHIE GARNER introduced self and role at [facility], pt voices understanding and consents to assessment. Pt is sitting up in bed in no distress on room air. Pt is A/Ox4 and answers all questions appropriately.? Care providers, pharmacy,?and demographics verified. ? Presentation: Pt believes she has been back in afib for last several days, increased SOB/HR Admitting dx: Afib RVR PCP: June Specialists: Kennedy, cardio; Suzetteilia, pulm; Igoe, rheum in [place] Preferred Pharmacy: [facility]-pt is already on Eliquis for her afib Insurance: [employer] Prescription Benefit:? [facility] Living Will/HPOA: Pt does not have LW/HPOA and declines AD info. LNOK: Jorge Barroso, Living Arrangements: Pt lives with in 2 story home and states no concerns at home. Pt is independent with ADL's. Transportation: Pt states drives self and states no transportation concerns. DME/HHC: Pt owns her own cpap w/ 3L oxygen bleed in and states no need for any further DME. Pt states no hx of HHC or SNF. Pt states no concerns with going home at time of discharge. Pt is unemployed. Pt states does not smoke cigarettes but states her and drink 1/2 gallon Jean [employer] Valenzuela every couple days. Pt states is active with [facility] and plans to get sober again at discharge. Pt states she knows she needs to do more to get sober and has appt with Lorna at [facility] on friday. Pt states will be discussing with and will move out if necessary to get herself sober if he can't admit to himself that he's also an alcoholic. Pt declines any further resources regarding same. Danny.Hammad TAYLOR updated on all, voices understanding. Pt states no further concerns/needs. CM to follow for any further discharge planning/needs. Advised pt to ask for CM if any further questions/concerns/needs arise, voices understanding. Pt Goal: Home ? Plan: [place] CATHIE GARNER
[2022-05-17] MEDS: FLUTICASONE/UMECLIDIN/VILANTER 1 EACH BLST.W.DEV INHALATION (22:12)
[2022-05-17] MEDS: Atorvastatin Calcium 10 MG Tablet PO (22:16)
[2022-05-17] MEDS: Amiodarone 200 MG Tablet PO (22:16)
--- NOTE | 2022-05-17 22:20 | NURSING ---
This RN was administering PM medications per order when pt began stating that she couldn't turn her head or look at this nurse. Upon further assessment, pt explained that her neck was stiff and painful, she had difficulty swallowing, she couldn't breathe, her arms were weak, her back and right shoulder was hurting, and that she was shaking. Physical assessment performed by this nurse revealed a visible increase in anxiety, tearfulness, and tachypnea. During the assessment, patients symptoms were inconsistent and difficult to identify objectively. Vital signs were consistent in all but the respiratory rate. Initial NIHSS was attempted but pt was inconsistent and unable to reliably perform tasks as requested. MD was notified and presented at bedside. Blood glucose was checked and within range. CIWA was previously negative but in light of current symptoms were rated in the low teens. This nurse did not note any tremors, seizure activity, or sweating at this time. Patient denied visual or auditory hallucinations. Severe anxiety noted. Again, assessment was difficult to obtain accurately due to patient cooperation and consistency in subjective symptom manifestations. MD advised to begin phenobarbital taper and that CVA was not indicated at this time. Will continue to monitor.
--- NOTE | 2022-05-17 22:47 | PCM.PN.BLA ---
Progress Note Called to bedside as reportedly patient was having neck spasm. Patient reports not seeing well. Physical exams with no focal weakness. Start phenobarbital taper for possible EtOH withdrawal.
[2022-05-17 23:00] LABS: Bedside Glucose 136 mg/dL (74-106)
[2022-05-17] MEDS: Phenobarbital 32.4 MG Tablet 64.8 MG PO (23:01)
[2022-05-18] VITALS (12 sets, daily range): BP systolic 85–114; BP diastolic 60–84; PULSE 112–127; RESP 16–18; TEMP 36.2–36.8; O2SAT 92–100
--- NOTE | 2022-05-18 | NURSING ---
Addendum entered by Yfn Silva 05/18/22 04:09: Follow up CIWA noted to be a 1 based on a possible auditory hallucination of a beeping sound coming from the sink area. Pt stated that it isn't beeping anymore and this nurse did not note any while present in the room. Patient did state that perhaps she was dreaming or it was on her phone, however a conservative score was calculated to be 1 at this time. Original Note: Pt noted to be completely asymptomatic following previous episode. Symptoms resolved before phenobarbital had been administered. CIWA assessment performed and again rated patient at 0 and noted status to be consistent with prior assessments. No distress noted or voiced at this time. Will continue to monitor.
[2022-05-18] MEDS: Phenobarbital 32.4 MG Tablet 64.8 MG PO ×6 (02:26→22:58)
--- NOTE | 2022-05-18 05:18 | CT_ITS ---
STUDY: CT BRAIN WITHOUT CONTRAST REASON FOR EXAM: Female, 51 years old. Encephalopathy RADIATION DOSAGE (If Supplied By Facility): CTDIvol = ( 44.99 ) mGy, DLP = ( 782.05 ) mGycm TECHNIQUE: Transaxial CT imaging of the brain was performed without administration of intravenous contrast material. Individualized dose optimization techniques were used for this CT. COMPARISON: Head CT dated 09/22/2019 FINDINGS: Normal soft tissue structures. Normal calvarium. There is mild cerebral atrophy with widening of the extra-axial spaces and ventricular dilatation. There are areas of decreased attenuation within the white matter tracts of the supratentorial brain, consistent with microvascular disease changes. Normal basal ganglia and thalami. Normal brainstem. Normal cerebellum. There is no intracranial hemorrhage. There are no findings of an acute ischemic infarction. Normal visualized paranasal sinuses. CT/Brain/Head without Contrast IMPRESSION: Chronic involutional changes of the brain. Electronically Signed: Milo Delcid DO at 6:10 EDT ,
[2022-05-18] MEDS: Levothyroxine 25 MCG TABLET PO (06:50)
[2022-05-18] MEDS: SILDENAFIL CITRATE 20 MG TABLET PO ×3 (06:50→20:45)
[2022-05-18 07:29] LABS: Absolute Lymphocyte Count 0.77 X10^3/uL (0.83-4.51); Absolute Neutrophil Count 9.4 X10^3/uL (2.0-7.7); Basophil# 0.07 X10^3/uL; Basophil% 0.6 % (0-1); Eosinophil# 0.27 X10^3/uL; Eosinophils% 2.3 % (0-5); Hematocrit 42.5 % (37-47); Hemoglobin 13.5 g/dL (12.0-15.0); Lymphocyte # 0.77 X10^3/ul (0.83-4.51); Lymphocyte % 6.6 % (19-41); Mean Corp Hgb Conc 31.8 g/dL (32-36); Mean Corpuscular Hgb 31.4 pg (27.0-32.0); Mean Corpuscular Volume 98.8 fL (81-99); Mean Platelet Vol. 9.3 fl (6.2-12.0); Monocyte# 0.95 X10^3/uL; Monocyte% 8.2 % (0-10); NRBC Flagged by Analyzer 0 % (0-5); Neutrophil # 9.42 X10^3/uL (2.7-7.7); Neutrophil % 81.3 % (47-70); Platelet Count 196 K/mm3 (150-450); RBC Distribution Width CV 14.9 % (11.6-14.6); RBC Distribution Width SD 54.2 fl (35.1-43.9); White Blood Count 11.6 K/mm3 (4.4-11.0)
[2022-05-18 07:46] LABS: Anion Gap 10 (5-15); BUN 38 mg/dL (7-18); BUN/Creat Ratio 24.7 RATIO (10-20); Calcium,Total 8.6 mg/dL (8.5-10.1); Chloride 103 mmol/L (98-107); Creatinine, Serum 1.54 mg/dL (0.55-1.02); EST Glomerular Filtration Rate 37 mL/min (>60); Est Glom Filt Rate - Afr Amer 45 mL/min (>60); Estimated Creatinine Clearance 41.08 ml/min; Glucose 108 mg/dL (74-106); Magnesium 1.5 mg/dL (1.6-2.6); Potassium 4.3 mmol/L (3.5-5.1); Sodium Level 134 mmol/L (136-145)
--- NOTE | 2022-05-18 08:29 | PN.HOSP_ITS ---
Subjective Subjective An episode yesterday where she felt she could not move her arms and felt that her whole face went slack and had trouble breathing. Objective Data Objective Data Vital Signs: Vital Signs Temp Pulse Resp BP Pulse Ox O2 Del Method O2 Flow Rate 36.2 C L 115 H 16 95/72 100 Room Air 3 05/18/22 05:00 05/18/22 07:38 05/18/22 05:00 05/18/22 05:00 05/18/22 05:00 05/18/22 05:00 05/17/22 07:50 Oxygen Flow Rate (L/min) 3 Oxygen Delivery Method Room Air Weight: 110.5 kg Body Mass Index (BMI) 38.1 Intake & Output: Intake and Output for Last 24 Hours 05/16/22 05/17/22 05/18/22 23:59 23:59 23:59 Intake Total 1535.50 / 1550.50 1290.33 / 1290.33 Output Total 1000 / 1000 Balance 535.50 / 550.50 1290.33 / 1290.33 Lab / Micro Data Result Diagrams: 05/18/22 07:07 05/18/22 07:07 Labs: Laboratory Results - last 24 hr 05/17/22 22:39: POC Glucose 136 H 05/18/22 07:07: WBC 11.6 H, RBC 4.30, Hgb 13.5, Hct 42.5, MCV 98.8, MCH 31.4, MCHC 31.8 L, RDW Std Deviation 54.2 H, RDW Coeff of Leighton 14.9 H, Plt Count 196, MPV 9.3, Immature Gran % (Auto) 1.000 H, Neut % (Auto) 81.3 H, Lymph % (Auto) 6.6 L, Hardin % (Auto) 8.2, Eos % (Auto) 2.3, Baso % (Auto) 0.6, Absolute Neuts (auto) 9.4 H, Absolute Lymphs (auto) 0.77 L, Nucleated RBC % 0 05/18/22 07:07: Sodium 134 L, Potassium 4.3, Chloride 103, Carbon Dioxide 21.0, Anion Gap 10, BUN 38 H, Creatinine 1.54 H, Estim Creat Clear Calc 41.08, Est GFR (MDRD) Af Amer 45 L, Est GFR (MDRD) Non-Af 37 L, BUN/Creatinine Ratio 24.7 H, Glucose 108 H, Calcium 8.6, Magnesium 1.5 L Micro: Microbiology 05/16/22 09:22 Nasal Secretion SARS-CoV-2 Antigen (Rapid) - Final Radiography Diagnostic Testing: Radiology Impression Brain CT 05/18/22 05:18 IMPRESSION: Chronic involutional changes of the brain. Electronically Signed: Milo Delcid DO at 6:10 EDT , Physical Exam Const alert and no apparent distress HEENT head/scalp atraumatic and moist oral mucous membranes Resp normal respiratory effort and no retractions Cardio regular rate, regular rhythm, S1 normal heart sound and S2 normal heart sound GI normal to inspection, nondistended, normoactive bowel sounds and soft to palpation Neuro oriented x3, CN's II-XII intact bilaterally, moves all extremities and no focal motor deficits Sensorium / Orientation: awake and alert Psych affect normal Assessment & Plan Assessment/Plan (1) Atrial fibrillation with rapid ventricular response: PLAN: Ongoing On amiodarone, metoprolol tartrate 50 mg twice daily. Anticoagulated with apixaban. (2) Heart failure with preserved ejection fraction: QUALIFIERS: Heart failure chronicity: acute Qualified Code(s): I50.31 - Acute diastolic (congestive) heart failure PLAN: Resolved patient had a normal LV back on 2D echocardiogram from March 13. Is complicated by pulmonary artery systolic pressure of 80 mmHg. Received dose of IV furosemide. I personally reviewed the x-ray to look like more like pulmonary vascular congestion rather than pneumonia. (3) Alcohol use: PLAN: Patient has been drinking [employer] since April 15. She and her are splitting a 2 gallon bottle of [employer] and finishing that every 2 to 3 days. No clear evidence of alcohol withdrawal at this time. Patient follows with [facility] and is active in their care Will do a CIWA and treat accordingly. Started on phenobarbital taper on 05/17 (4) Panic attack: PLAN: Suspected Neurologically she is currently intact. Given patient's known history of A. fib and acknowledgment of not being compliant with her anticoagulation, stroke is certainly a possibility. We will check an MRI of her brain. PLAN: Plan Chronic conditions * Pulmonary hypertension: Severe. Likely due to her underlying lung disease including FADY and COPD. That would be type III. Continue with sildenafil. * Anxiety: Continue with bupropion * Hyperlipidemia: Continue with statin * Hypothyroidism: Continue levothyroxine * History of pulmonary embolism * COPD: Stable at this time. * FADY: May continue with her CPAP as she takes at home so I can bring it in. * Hypertension: Continue losartan. Might hold off on HCTZ as she will be receiving Lasix. VTE prophylaxis: Not indicated as patient is already anticoagulated CODE STATUS: Addressed with the patient. Patient wished to be full code. Charges/Coding Visit Charges Inpatient E&M: 04954 Subs Hosp L3
[2022-05-18] MEDS: Folic Acid 1 MG Tablet PO (09:02)
[2022-05-18] MEDS: Cholecalciferol (VIT D3) 25 MCG TABLET (1,000 UNITS) 100 MCG PO (09:02)
[2022-05-18] MEDS: Ursodiol 250 MG Tablet PO ×2 (09:02→20:45)
[2022-05-18] MEDS: Amiodarone 200 MG Tablet PO ×2 (09:03→20:45)
[2022-05-18] MEDS: APIXABAN 5 MG TABLET PO ×2 (09:04→20:45)
[2022-05-18] MEDS: Pantoprazole Sodium 40 MG Tablet PO (09:04)
[2022-05-18] MEDS: Furosemide 40 MG Tablet PO (09:04)
[2022-05-18] MEDS: Losartan Potassium 50 MG Tablet PO (09:04)
[2022-05-18] MEDS: Metoprolol Tartrate 50 MG Tablet PO ×2 (09:05→20:45)
[2022-05-18] MEDS: oxyCODONE 5 MG Tablet 10 MG PO ×2 (09:11→19:30)
[2022-05-18] MEDS: Montelukast 10 MG Tablet PO (09:11)
[2022-05-18] MEDS: Multivitamins,Therapeutic Tablet 1 TABLET PO (09:23)
[2022-05-18] MEDS: buPROPion (XL) 300 MG TABLET.XL PO (11:50)
--- NOTE | 2022-05-18 12:15 | MRI_ITS ---
STUDY: MRI BRAIN WITHOUT CONTRAST REASON FOR EXAM: Female, 51 years old. dysarthria. weakness TECHNIQUE: Standardized multiplanar fat and water weighted pulse sequences were obtained. COMPARISON: Head CT dated May 18, 2022 FINDINGS: Normal size of the ventricles and extra-axial spaces for the patient''s age. There are a limited number of small white matter hyperintensities, distributed throughout the deep white matter tracts of the cerebral hemispheres, consistent with mild chronic white matter ischemic changes. There is no evidence for recent intracranial ischemia or other cause of cytotoxic edema on diffusion weighted imaging (DWI). Normal T2* images of the brain without demonstrated susceptibility artifact. There is no demonstrated hemosiderin stain. Normal bilateral basal ganglia. Normal thalami. There is no extra-axial fluid accumulation. Normal flow voids within the major intracranial circulation suggesting patency by spin echo criteria. Normal sella turcica, pituitary gland, infundibular stalk, optic chiasm and hypothalamus. Normal tectal plate and pineal gland. Normal midbrain, alyssa and medulla. Normal cerebellum. Normal basal cisterns. Normal bilateral temporal bones. Normal bilateral internal auditory canals. No demonstrated orbital abnormality, within the constraints of a routine brain study. Normal visualized paranasal sinuses. Normal calvarium and skull base. Normal visualized soft tissue structures. Normal visualized upper cervical spine. MRI/Brain without Contrast IMPRESSION: 1. Mild chronic ischemic changes of the brain, as described above. 2. No demonstrated acute infarct or intracranial hemorrhage Electronically Signed: Andre Crawford MD at 13:13 EDT ,
[2022-05-18] MEDS: Atorvastatin Calcium 10 MG Tablet PO (20:45)
[2022-05-18] MEDS: FLUTICASONE/UMECLIDIN/VILANTER 1 EACH BLST.W.DEV INHALATION (20:45)
[2022-05-18] MEDS: traZODone 100 MG Tablet PO (20:53)
[2022-05-18] MEDS: Senna/Docusate Sodium 1 Tablet 2 TABLET PO (21:08)
[2022-05-18] MEDS: 0.9% Saline Lock 10 ML Syringe IV (23:27)
[2022-05-19] VITALS (12 sets, daily range): BP systolic 97–108; BP diastolic 71–86; PULSE 111–125; RESP 16–20; TEMP 36.1–36.8; O2SAT 96–98
[2022-05-19] MEDS: Phenobarbital 32.4 MG Tablet 64.8 MG PO ×6 (03:12→22:44)
[2022-05-19] MEDS: Levothyroxine 25 MCG TABLET PO (06:46)
[2022-05-19] MEDS: SILDENAFIL CITRATE 20 MG TABLET PO ×3 (06:46→22:44)
[2022-05-19] MEDS: Folic Acid 1 MG Tablet PO (09:09)
[2022-05-19] MEDS: Amiodarone 200 MG Tablet PO ×2 (09:09→22:44)
[2022-05-19] MEDS: Furosemide 40 MG Tablet PO (09:10)
[2022-05-19] MEDS: Montelukast 10 MG Tablet PO (09:10)
[2022-05-19] MEDS: Multivitamins,Therapeutic Tablet 1 TABLET PO (09:10)
[2022-05-19] MEDS: APIXABAN 5 MG TABLET PO ×2 (09:10→22:44)
[2022-05-19] MEDS: Pantoprazole Sodium 40 MG Tablet PO (09:11)
[2022-05-19] MEDS: Ursodiol 250 MG Tablet PO ×2 (09:11→22:44)
[2022-05-19] MEDS: buPROPion (XL) 300 MG TABLET.XL PO (09:11)
[2022-05-19] MEDS: Metoprolol Tartrate 50 MG Tablet PO ×2 (09:12→22:44)
[2022-05-19] MEDS: Cholecalciferol (VIT D3) 25 MCG TABLET (1,000 UNITS) 100 MCG PO (09:13)
[2022-05-19] MEDS: Losartan Potassium 50 MG Tablet PO (09:13)
--- NOTE | 2022-05-19 09:32 | PN.HOSP_ITS ---
Subjective Subjective Feels better but still tachycardic Objective Data Objective Data Vital Signs: Vital Signs Temp Pulse Resp BP Pulse Ox O2 Del Method O2 Flow Rate 36.8 C 122 H 16 102/71 97 Room Air 3 05/19/22 09:15 05/19/22 09:15 05/19/22 09:15 05/19/22 09:15 05/19/22 09:15 05/19/22 09:15 05/18/22 22:21 Oxygen Flow Rate (L/min) 3 Oxygen Delivery Method Room Air Weight: 110.5 kg Body Mass Index (BMI) 38.1 Intake & Output: Intake and Output for Last 24 Hours 05/17/22 05/18/22 05/19/22 23:59 23:59 23:59 Intake Total 1290.33 / 1290.33 600 / 940 340 / 340 Balance 1290.33 / 1290.33 600 / 940 340 / 340 Lab / Micro Data Result Diagrams: 05/18/22 07:07 05/18/22 07:07 Micro: Microbiology 05/16/22 09:46 Blood Culture (Wb) - Anticubital Left Blood Culture - Preliminary No growth in 48 hours. 05/16/22 09:10 Blood Culture (Wb) - Anticubital Left Blood Culture - Preliminary No growth in 48 hours. 05/16/22 09:22 Nasal Secretion SARS-CoV-2 Antigen (Rapid) - Final Radiography Diagnostic Testing: Radiology Impression Brain MRI 05/18/22 12:15 IMPRESSION: 1. Mild chronic ischemic changes of the brain, as described above. 2. No demonstrated acute infarct or intracranial hemorrhage Electronically Signed: Andre Crawford MD at 13:13 EDT , Physical Exam Const alert and no apparent distress Resp normal respiratory effort and no retractions Cardio Cardio Narrative: Irregularly irregular GI normal to inspection, nondistended, normoactive bowel sounds Assessment & Plan Assessment/Plan (1) Atrial fibrillation with rapid ventricular response: PLAN: Ongoing On amiodarone, metoprolol tartrate 50 mg twice daily. Anticoagulated with apixaban. Discussed with Dr. Mayorga, will give a dose of 125 mcg of digoxin. (2) Heart failure with preserved ejection fraction: QUALIFIERS: Heart failure chronicity: acute Qualified Code(s): I50.31 - Acute diastolic (congestive) heart failure PLAN: Resolved patient had a normal LV back on 2D echocardiogram from March 13. Is complicated by pulmonary artery systolic pressure of 80 mmHg. Received dose of IV furosemide. I personally reviewed the x-ray to look like more like pulmonary vascular congestion rather than pneumonia. (3) Alcohol use: PLAN: Patient has been drinking Jean Carlos Valenzuela since April 15. She and her are splitting a 2 gallon bottle of Jean Carlos Valenzuela and finishing that every 2 to 3 days. No clear evidence of alcohol withdrawal at this time. Patient follows with [facility] and is active in their care Will do a CIWA and treat accordingly. Started on phenobarbital taper on 05/17 (4) Panic attack: PLAN: Suspected Neurologically she is currently intact. Given patient's known history of A. fib and acknowledgment of not being compliant with her anticoagulation, stroke is certainly a possibility. MRI brain negative, therefore CVA ruled out PLAN: Plan Chronic conditions * Pulmonary hypertension: Severe. Likely due to her underlying lung disease including FADY and COPD. That would be type III. Continue with sildenafil. * Anxiety: Continue with bupropion * Hyperlipidemia: Continue with statin * Hypothyroidism: Continue levothyroxine * History of pulmonary embolism * COPD: Stable at this time. * FADY: May continue with her CPAP as she takes at home so I can bring it in. * Hypertension: Continue losartan. Might hold off on HCTZ as she will be receiving Lasix. VTE prophylaxis: Not indicated as patient is already anticoagulated CODE STATUS: Addressed with the patient. Patient wished to be full code. Charges/Coding Visit Charges Inpatient E&M: 98858 Subs Hosp L2
[2022-05-19] MEDS: Digoxin 125 MCG Tablet PO (11:27)
[2022-05-19] MEDS: Bisacodyl 5 MG Tablet PO (11:29)
[2022-05-19] MEDS: Acetaminophen 500 MG Tablet 1000 MG PO (15:04)
[2022-05-19] MEDS: FLUTICASONE/UMECLIDIN/VILANTER 1 EACH BLST.W.DEV INHALATION (22:44)
[2022-05-19] MEDS: traZODone 100 MG Tablet PO (22:44)
[2022-05-19] MEDS: Atorvastatin Calcium 10 MG Tablet PO (22:44)
[2022-05-20] MEDS: Phenobarbital 32.4 MG Tablet 64.8 MG PO ×2 (02:56→06:40)
[2022-05-20 02:59] VITALS: PULSE 118
[2022-05-20 03:00] VITALS: BP 120/70; PULSE 120; RESP 18; TEMP 36.1; O2SAT 96
[2022-05-20] MEDS: SILDENAFIL CITRATE 20 MG TABLET PO (06:40)
[2022-05-20] MEDS: Levothyroxine 25 MCG TABLET PO (06:40)
[2022-05-20 07:00] VITALS: PULSE 123
[2022-05-20 07:28] VITALS: O2SAT 92
--- NOTE | 2022-05-20 08:00 | PN.HOSP_ITS ---
Subjective Subjective Patient very upset and was yelling this morning. I walked into the room and patient was yelling stating that I ignored her right ankle pain and just told her that she had A. fib with RVR when she thought she was just having tachycardia. I told her that I did explain to her that she did have A. fib with RVR. Objective Data Objective Data Vital Signs: Vital Signs Temp Pulse Resp BP Pulse Ox O2 Del Method O2 Flow Rate 36.1 C L 123 H 18 120/70 96 Room Air 3 05/20/22 03:00 05/20/22 07:00 05/20/22 03:00 05/20/22 03:00 05/20/22 03:00 05/20/22 03:00 05/18/22 22:21 Oxygen Flow Rate (L/min) 3 Oxygen Delivery Method Room Air Weight: 110.5 kg Body Mass Index (BMI) 38.1 Intake & Output: Intake and Output for Last 24 Hours 05/18/22 05/19/22 05/20/22 23:59 23:59 23:59 Intake Total 600 / 940 980 / 1180 200 / 200 Balance 600 / 940 980 / 1180 200 / 200 Lab / Micro Data Result Diagrams: 05/18/22 07:07 05/18/22 07:07 Micro: Microbiology 05/16/22 09:46 Blood Culture (Wb) - Anticubital Left Blood Culture - Preliminary No growth in 48 hours. 05/16/22 09:10 Blood Culture (Wb) - Anticubital Left Blood Culture - Preliminary No growth in 48 hours. 05/16/22 09:22 Nasal Secretion SARS-CoV-2 Antigen (Rapid) - Final Physical Exam Narrative Very anxious and angry yelling. Assessment & Plan Assessment/Plan (1) Atrial fibrillation with rapid ventricular response: PLAN: Ongoing On amiodarone, metoprolol tartrate 50 mg twice daily. Anticoagulated with apixaban. Discussed with Dr. Mayorga, will give a dose of 125 mcg of digoxin. Seen by cardiology today and they recommended increasing her beta-gisela and then proceed with MABEL cardioversion on the . Cardiology changed her metoprolol to 100 twice daily. We will send that to her pharmacy. Unclear the patient will actually can pick that up. Patient will need follow-up with cardiology for further evaluation. (2) Heart failure with preserved ejection fraction: QUALIFIERS: Heart failure chronicity: acute Qualified Code(s): I50.31 - Acute diastolic (congestive) heart failure PLAN: Resolved patient had a normal LV back on 2D echocardiogram from March 13. Is complicated by pulmonary artery systolic pressure of 80 mmHg. Received dose of IV furosemide. I personally reviewed the x-ray to look like more like pulmonary vascular congestion rather than pneumonia. (3) Alcohol use: PLAN: Patient has been drinking Jean Carlos Valenzuela since April 15. She and her are splitting a 2 gallon bottle of Jean Carlos Valenzuela and finishing that every 2 to 3 days. No clear evidence of alcohol withdrawal at this time. [facility] and is active in their care Will do a CIWA and treat accordingly. Started on phenobarbital taper on 05/17 (4) Panic attack: PLAN: Suspected Neurologically she is currently intact. Given patient's known history of A. fib and acknowledgment of not being compliant with her anticoagulation, stroke is certainly a possibility. MRI brain negative, therefore CVA ruled out PLAN: Plan Chronic conditions * Pulmonary hypertension: Severe. Likely due to her underlying lung disease including FADY and COPD. That would be type III. Continue with sildenafil. * Anxiety: Continue with bupropion * Hyperlipidemia: Continue with statin * Hypothyroidism: Continue levothyroxine * History of pulmonary embolism * COPD: Stable at this time. * FADY: May continue with her CPAP as she takes at home so I can bring it in. * Hypertension: Continue losartan. Might hold off on HCTZ as she will be receiving Lasix. VTE prophylaxis: Not indicated as patient is already anticoagulated CODE STATUS: Addressed with the patient. Patient wished to be full code. Patient leaving AGAINST MEDICAL ADVICE. Despite continued to be tachycardic. It is highly suspected the patient is getting go back to drinking alcohol again. Patient was accusing myself of not telling her that she was in A. fib with RVR. I told the patient specifically that yesterday and I told her I was not sure who told her she was just having tachycardia Charges/Coding Visit Charges Inpatient E&M: 77653 Disch Hosp
--- NOTE | 2022-05-20 08:07 | PN.CARD_ITS ---
Subjective Subjective Patient seen and evaluated. Still in atrial fibrillation with rapid ventricular response rate despite increasing doses of beta-gisela. No complaints other than leg discomfort. Objective Data Vital Signs: Vital Signs Temp Pulse Resp BP Pulse Ox O2 Del Method O2 Flow Rate 97.0 F L 123 H 18 120/70 96 Room Air 3 05/20/22 03:00 05/20/22 07:00 05/20/22 03:00 05/20/22 03:00 05/20/22 03:00 05/20/22 03:00 05/18/22 22:21 Oxygen Flow Rate (L/min) 3 Oxygen Delivery Method Room Air Weight: 243 lb 9.773 oz Body Mass Index (BMI) 38.1 Intake & Output: Intake and Output for Last 24 Hours 05/18/22 05/19/22 05/20/22 23:59 23:59 23:59 Intake Total 600 / 940 980 / 1180 200 / 200 Balance 600 / 940 980 / 1180 200 / 200 Lab / Micro Data Result Diagrams: 05/18/22 07:07 05/18/22 07:07 Cardiology Labs/Tests Rhythm: EKG: ECHO: Stress Test: Cardiac Cath: PCI: CT Surgery: Holter monitor: EPS: PPM: CXR: Chest CT Scan: Physical Exam Const alert, oriented x3 and no apparent distress General Appearance: cooperative HEENT hearing grossly normal bilaterally Head and Scalp: atraumatic Eyes EOMs intact bilaterally Neck General: normal visual inspection Chest inspection of chest normal and palpation of chest normal Resp normal respiratory effort Auscultation: clear to auscultation bilaterally Cardio S1 normal heart sound and S2 normal heart sound Jugular Venous Distention: JVD Rhythm: abnormal rhythm irregularly irregular GI normal to inspection, nondistended, normoactive bowel sounds Extremity normal capillary refill and no pedal edema Peripheral Pulses: Yes pulses 2+ throughout and femoral pulses present Skin no rashes or lesions noted Neuro oriented x3 and CN's II-XII intact bilaterally Psych Appearance: grossly normal and appropriate Assessment & Plan Assessment/Plan (1) Paroxysmal atrial fibrillation: PLAN: She does have evidence of atrial fibrillation which at this time appears to be persistent. She has not been therapeutically anticoagulated for more than 3 weeks and therefore to get her back in sinus rhythm we may need to consider a MABEL guided cardioversion. * I would recommend increasing the dose of her beta-gisela today and see how she does * Consider n.p.o. after midnight for a MABEL cardioversion tomorrow around noon * Will then consider reducing the dose of her beta-gisela then and also put her back on the flecainide. That is if she converts back to sinus rhythm. * Continue on anticoagulation for now (2) Essential (primary) hypertension: PLAN: Continue medical therapy for now.
--- NOTE | 2022-05-20 08:27 | NURSING ---
Called to room by nurse. Patient upset regarding Dr. and dietary. States she wants a new Dr. and that dietary broke the camels back by never sending the correct food. Attempted to order her food for her and assist her is getting what she needed for her foot pain. Stated I'm leaving and will go to another hospital. Patient getting dressed. Nurse informed of need to remove IV.
--- NOTE | 2022-05-20 08:36 | NURSING ---
Upon entering patient's room this morning, patient is very upset screaming at staff using foul language. State she has not been happy with her meal trays and does not want to be at this hospital anymore. Lizzie Guillory RN and Dr. Workman in to talk with patient and still wanted to leave. AMA paper signed by patient and RN.
--- NOTE | 2022-05-20 12:20 | PCM.DC.SUM ---
Providers Date of Admission: 05/16/22 Primary Care Physician: Dr. Didier Watkins MD Consultations 05/16/22 11:13 Consult: Cardiology Routine Consulting Provider: Luis Benavides Reason for Consult: afib rvr EMERGENT Consult: No MD Notified: Yes Date Notified: 05/16/22 Time Notified: 11:09 Method of Notification: Verbal Reason For Visit: A FIB WITH RVR Diagnosis Discharge Diagnosis (1) Atrial fibrillation with rapid ventricular response: Status: Acute Code(s): I48.91 - Unspecified atrial fibrillation Plan: Ongoing On amiodarone, metoprolol tartrate 50 mg twice daily. Anticoagulated with apixaban. Discussed with Dr. Mayorga, will give a dose of 125 mcg of digoxin. Seen by cardiology today and they recommended increasing her beta-gisela and then proceed with MABEL cardioversion on the . Cardiology changed her metoprolol to 100 twice daily. We will send that to her pharmacy. Unclear the patient will actually can pick that up. Patient will need follow-up with cardiology for further evaluation. (2) Heart failure with preserved ejection fraction: Status: Acute Code(s): I50.30 - Unspecified diastolic (congestive) heart failure Qualifiers: Heart failure chronicity: acute Qualified Code(s): I50.31 - Acute diastolic (congestive) heart failure Plan: Resolved patient had a normal LV back on 2D echocardiogram from March 13. Is complicated by pulmonary artery systolic pressure of 80 mmHg. Received dose of IV furosemide. I personally reviewed the x-ray to look like more like pulmonary vascular congestion rather than pneumonia. (3) Alcohol use: Status: Acute Code(s): Z72.89 - Other problems related to lifestyle Plan: Patient has been drinking Jean Carlos Valenzuela since April 15. She and her are splitting a 2 gallon bottle of Jean Carlos Valenzuela and finishing that every 2 to 3 days. No clear evidence of alcohol withdrawal at this time. Patient follows with [facility] and is active in their care Will do a CIWA and treat accordingly. Started on phenobarbital taper on 05/17 (4) Panic attack: Status: Acute Code(s): F41.0 - Panic disorder [episodic paroxysmal anxiety] Plan: Suspected Neurologically she is currently intact. Given patient's known history of A. fib and acknowledgment of not being compliant with her anticoagulation, stroke is certainly a possibility. MRI brain negative, therefore CVA ruled out Plan Chronic conditions Pulmonary hypertension: Severe. Likely due to her underlying lung disease including FADY and COPD. That would be type III. Continue with sildenafil. Anxiety: Continue with bupropion Hyperlipidemia: Continue with statin Hypothyroidism: Continue levothyroxine History of pulmonary embolism COPD: Stable at this time. FADY: May continue with her CPAP as she takes at home so I can bring it in. Hypertension: Continue losartan. Might hold off on HCTZ as she will be receiving Lasix. VTE prophylaxis: Not indicated as patient is already anticoagulated CODE STATUS: Addressed with the patient. Patient wished to be full code. Patient leaving AGAINST MEDICAL ADVICE. Despite continued to be tachycardic. It is highly suspected the patient is getting go back to drinking alcohol again. Patient was accusing myself of not telling her that she was in A. fib with RVR. I told the patient specifically that yesterday and I told her I was not sure who told her she was just having tachycardia Medications at Discharge Home Medications cyclobenzaprine 5 mg tablet 5 mg PO TID PRN PRN Spasms 06/18/19 rosuvastatin 5 mg tablet (Crestor) 10 mg PO DAILY cholesterol 06/18/19 acetaminophen 500 mg tablet 1,000 mg PO DAILY PRN PRN Pain 1-10 Or Fever 08/01/20 cholecalciferol (vitamin D3) 10 mcg (400 unit) capsule 4,000 unit PO DAILY supplement 08/01/20 folic acid 1 mg tablet 1 mg PO DAILY supplement 08/01/20 levothyroxine 25 mcg tablet 25 mcg PO DAILY thyroid 08/01/20 montelukast 10 mg tablet (Singulair) 10 mg PO DAILY asthma 12/28/20 multivitamin 1 tab PO DAILY DAILY 12/28/20 sildenafil (pulm.hypertension) 20 mg tablet 20 mg PO TID pulmonary HTN 05/01/21 pantoprazole 40 mg tablet,delayed release 40 mg PO QAM #90 tabs 10/25/21 dicyclomine 20 mg tablet 20 mg PO TID PRN Cramps 12/31/21 apixaban 5 mg tablet (Eliquis) 5 mg PO BID blood thinner 01/20/22 fluticasone fur. 100 mcg-umeclid 62.5 mcg-vilant 25 mcg inhalat.powder (Trelegy Ellipta) 1 inh inhalation DAILY COPD 01/20/22 trazodone 100 mg tablet 100 mg PO QHS PRN PRN Insomnia 14 days #14 tabs 01/24/22 ursodiol 300 mg capsule 300 mg PO BID #180 caps 02/04/22 acetaminophen 300 mg-codeine 30 mg tablet 1 tab PO Q6H PRN PRN Pain 05/16/22 bupropion HCl 300 mg 24 hr tablet, extended release 300 mg PO DAILY mood 05/16/22 metoprolol tartrate 100 mg tablet 100 mg PO Q12H #60 tabs 05/20/22 Hospital Course Operations None Procedures None Weight / BMI Weight Weight: 110.5 kg Body Mass Index (BMI) 38.1 ABG / Lab / Microbiology Data Result Diagrams: 05/18/22 07:07 05/18/22 07:07 Microbiology: Microbiology 05/16/22 09:46 Blood Culture (Wb) - Anticubital Left Blood Culture - Preliminary No growth in 48 hours. 05/16/22 09:10 Blood Culture (Wb) - Anticubital Left Blood Culture - Preliminary No growth in 48 hours. 05/16/22 09:22 Nasal Secretion SARS-CoV-2 Antigen (Rapid) - Final D/C Instructions Discharge Diet: Low fat / Low cholesterol Meaningful Use Info Meaningful Use Diagnoses (Choose all that apply): None applicable Discharge Plan Admission Admit Date/Time: 05/16/22 10:46 Primary Reason for Your Visit: atrial fibrillation with RVR. alcohol withdrawal. Attending Provider: Shawn Workman Primary Care Provider: Didier Watkins Consulting Providers: Luis Benavides Discharge Orders/Prescriptions Prescriptions: New metoprolol tartrate 100 mg tablet 100 mg PO Q12H Qty: 60 0RF Continued rosuvastatin [Crestor] 5 mg tablet 10 mg PO DAILY cyclobenzaprine 5 mg tablet 5 mg PO TID PRN PRN (Reason: Spasms) sildenafil (pulm.hypertension) 20 mg tablet 20 mg PO TID pantoprazole 40 mg tablet,delayed release (DR/EC) 40 mg PO QAM Qty: 90 0RF acetaminophen 500 MG tablet 1,000 mg PO DAILY PRN PRN (Reason: Pain 1-10 Or Fever) levothyroxine 25 MCG tablet 25 mcg PO DAILY Label Comments: Take 1 tablet by mouth daily folic acid 1 MG tablet 1 mg PO DAILY cholecalciferol (vitamin D3) 10 MCG capsule 4,000 unit PO DAILY multivitamin Tablet 1 tab PO DAILY MDD SUPPLEMEMT montelukast [Singulair] 10 mg tablet 10 mg PO DAILY dicyclomine 20 mg tablet 20 mg PO TID PRN (Reason: Cramps) Trelegy Ellipta 100-62.5-25 mcg blister with device 1 inh INHALATION DAILY Label Comments: INHALE 1 (ONE) PUFF FOLLOWED BY [facility] Eliquis 5 mg tablet 5 mg PO BID trazodone 100 mg Tablet 100 mg PO QHS PRN PRN (Reason: Insomnia) 14 Days Qty: 14 0RF acetaminophen-codeine 300-30 mg tablet 1 tab PO Q6H PRN PRN (Reason: Pain) Label Comments: TAKE 1 TABLET EVERY 4 TO 6 HOURS bupropion HCl 300 mg tablet extended release 24 hr 300 mg PO DAILY ursodiol 300 mg capsule 300 mg PO BID Qty: 180 3RF Discontinued losartan-hydrochlorothiazide 50-12.5 mg tablet 1 tab PO DAILY flecainide 100 mg tablet 100 mg PO BID Qty: 60 11RF metoprolol tartrate 25 mg tablet 25 mg PO BID Qty: 60 0RF Referrals / Follow Up: [facility] [Provider Group] - Within 1 Month Didier Watkins MD [Primary Care Provider] - Within 2 Weeks Disposition Disposition (needs filled in before D/C Order can be placed): Home, Self Care Charges/Coding Visit Charges Inpatient E&M: 33370 Disch Hosp
--- NOTE | 2022-05-20 18:28 | NURSING ---
Patient called in wanting her trelegy inhaler that was brought from home. Pharmacy called and medication had already been destroyed. Patient informed of this and patient very angry accusing Dr. Workman of telling the pharmacy to destroy it. Voicing concern again regarding and dietary meals. Apologized to this nurse regarding yelling and stated that nurses were great. Given patient advocates name and number to call to voice concerns.
== END 2022-05-20 09:02 | disposition home or self-care (01) | DRG 201 ==
LOC: ED 08:44 → PCU 11:14
PROVIDERS: Hospitalist; Emergency Provider Emergency Medicine; PCP Family Medicine
DX: I48.0 Paroxysmal atrial fibrillation (principal); I50.31 Acute diastolic (congestive) heart failure; I27.20 Pulmonary hypertension, unspecified; K74.00 Hepatic fibrosis, unspecified; J44.9 Chronic obstructive pulmonary disease, unspecified; I11.0 Hypertensive heart disease with heart failure; F10.130 Alcohol abuse with withdrawal, uncomplicated; K76.0 Fatty (change of) liver, not elsewhere classified; E78.5 Hyperlipidemia, unspecified; K21.9 Gastro-esophageal reflux disease without esophagitis; G47.33 Obstructive sleep apnea (adult) (pediatric); E03.9 Hypothyroidism, unspecified; M62.838 Other muscle spasm; D64.9 Anemia, unspecified; E66.9 Obesity, unspecified; F32.A Depression, unspecified; Z86.718 Personal history of other venous thrombosis and embolism; Z87.891 Personal history of nicotine dependence; Z86.711 Personal history of pulmonary embolism; Z86.010 Personal history of colon polyps; Z79.899 Other long term (current) drug therapy; Z79.01 Long term (current) use of anticoagulants; Z72.89 Other problems related to lifestyle; F41.0 Panic disorder [episodic paroxysmal anxiety]; Z68.38 Body mass index [BMI] 38.0-38.9, adult
CPT/HCPCS: 36415; 70450; 70551; 71045; 80048; 82962; 83735; 83880; 84443; 84484; 85025; 87040; 87811; 93005; 99285; 99406; J7030; A4216; J1940; J2405

== ENCOUNTER 2022-05-21 16:53 | Observation (INO) | payer MEDICAID, SELFPAY ==
[2022-05-21 16:55] VITALS: BP 113/83; PULSE 115; RESP 23; TEMP 36.8; O2SAT 100; BMI 37.5
--- NOTE | 2022-05-21 20:03 | CT_ITS ---
STUDY: CT BRAIN WITHOUT CONTRAST REASON FOR EXAM: Female, 51 years old. Weakness, headache RADIATION DOSAGE (If Supplied By Facility): CTDIvol = ( 44.99 ) mGy, DLP = ( 779.24 ) mGycm TECHNIQUE: Transaxial CT imaging of the brain was performed without administration of intravenous contrast material. Individualized dose optimization techniques were used for this CT. COMPARISON: May 18, 2022 FINDINGS: Normal soft tissue structures. Normal calvarium. Normal size ventricles and extra-axial spaces for the patient''s age. Normal white matter tracts of the cerebral hemispheres. Normal basal ganglia and thalami. Normal brainstem. Normal cerebellum. There is no intracranial hemorrhage. There are no findings of an acute ischemic infarction. Normal visualized paranasal sinuses. CT/Brain/Head without Contrast IMPRESSION: Normal unenhanced CT scan of the brain. Electronically Signed: Bartolo Loaiza MD at 21:27 EDT ,
--- NOTE | 2022-05-21 20:06 | EX.ED.DYSGE1 ---
HPI History of Present Illness Chief Complaint: General Illness Detail of Chief Complaint: Near syncope Informant: patient Onset/Context/Timing Onset: Today Narrative Narrative: Patient was recently admitted to the hospital secondary to shortness of breath with ABrooke pulido RVR. She states due to several frustrating times in the hospital she got upset yesterday and signed out AGAINST MEDICAL ADVICE. She states that her understanding was they were going to do a MABEL yesterday for possible cardioversion. Patient states that today she tried to go next-door to the grocery store. With any exertion she became very lightheaded. She felt like he was going to pass out. She had to call her to come pick her up. He states when she got in the car she was just limp with weakness throughout. She would rest with her eyes closed but answer questions. Patient states she felt like she was going to pass out. Patient states had a similar episode while she was in the hospital Friday evening. She had shaking with this episode. She states that she had a CT scan and MRI following this. [facility] Medical History Alcohol abuse Alcohol use Allergic rhinitis Anemia Anxiety Atrial fibrillation Bilateral knee pain COPD (chronic obstructive pulmonary disease) CPAP (continuous positive airway pressure) dependence Depression DVT (deep venous thrombosis) Esophageal spasm Essential (primary) hypertension Extremity cyanosis Fatty liver Former smoker Former smoker GERD (gastroesophageal reflux disease) Heart failure with preserved ejection fraction Hiatal hernia History of back problems History of echocardiogram History of edema History of pain when walking History of stress test HLD (hyperlipidemia) Hyperthyroidism Hypomagnesemia Iron deficiency Migraines Morbid obesity with BMI of 40.0-44.9, adult Obstructive sleep apnea Osteoarthritis Patellofemoral syndrome of both knees Pulmonary arterial hypertension Pulmonary embolism (04/26/16) Secondary pulmonary arterial hypertension Tobacco user Tubular adenoma of colon Home Medications cyclobenzaprine 5 mg tablet 5 mg PO TID PRN PRN Spasms 06/18/19 [History Last Taken 05/14/22] rosuvastatin 5 mg tablet (Crestor) 10 mg PO DAILY cholesterol 06/18/19 [History Last Taken 05/14/22] acetaminophen 500 mg tablet 1,000 mg PO DAILY PRN PRN Pain 1-10 Or Fever 08/01/20 [History Last Taken 01/19/22] cholecalciferol (vitamin D3) 10 mcg (400 unit) capsule 4,000 unit PO DAILY supplement 08/01/20 [History Last Taken 05/14/22] folic acid 1 mg tablet 1 mg PO DAILY supplement 08/01/20 [History Last Taken 05/14/22] levothyroxine 25 mcg tablet 25 mcg PO DAILY thyroid 08/01/20 [History Last Taken 05/14/22] montelukast 10 mg tablet (Singulair) 10 mg PO DAILY asthma 12/28/20 [History Last Taken 01/19/22] multivitamin 1 tab PO DAILY DAILY 12/28/20 [History Last Taken 05/14/22] sildenafil (pulm.hypertension) 20 mg tablet 20 mg PO TID pulmonary HTN 05/01/21 [History Last Taken 05/14/22] pantoprazole 40 mg tablet,delayed release 40 mg PO QAM #90 tabs 10/25/21 [Rx Last Taken 05/14/22] dicyclomine 20 mg tablet 20 mg PO TID PRN Cramps 12/31/21 [History Last Taken 01/19/22] fluticasone fur. 100 mcg-umeclid 62.5 mcg-vilant 25 mcg inhalat.powder (Trelegy Ellipta) 1 inh inhalation DAILY COPD 01/20/22 [History Last Taken 05/14/22] trazodone 100 mg tablet 100 mg PO QHS PRN PRN Insomnia 14 days #14 tabs 01/24/22 [Rx Last Taken 05/14/22] ursodiol 300 mg capsule 300 mg PO BID #180 caps 02/04/22 [Rx Last Taken 05/14/22] acetaminophen 300 mg-codeine 30 mg tablet 1 tab PO Q6H PRN PRN Pain 05/16/22 [History Last Taken Unknown] bupropion HCl 300 mg 24 hr tablet, extended release 300 mg PO DAILY mood 05/16/22 [History Last Taken 05/14/22] amiodarone 200 mg tablet 200 mg PO .COMPLEX #60 tabs 05/20/22 [Rx Last Taken Unknown] apixaban 5 mg tablet (Eliquis) 5 mg PO BID blood thinner #60 tabs 05/20/22 [Rx Last Taken Unknown] metoprolol tartrate 50 mg tablet 50 mg PO Q12H #60 tabs 05/20/22 [Rx Last Taken Unknown] Allergy/AdvReac Type Severity Reaction Status Date / Time doxycycline Allergy Hives Verified 05/21/22 16:55 hydrocodone [From Vicodin] AdvReac Itching Verified 05/21/22 16:55 Family History Mother Breast cancer Cancer lung cancer Father Cancer lung cancer Hypertension High cholesterol Surgical History H/O repair of rotator cuff History of History of cardiac catheterization History of cholecystectomy History of hysterectomy History of nasal surgery History of repair of hiatal hernia (12/2020) Social History Smoking Status: Former smoker quit date: 01/11/22 alcohol intake: current alcohol intake frequency: 3 or more drinks per day Alcohol type: hard liquor substance use type: does not use ROS ROS ED Constitutional Constitutional ED: Denies chills or fever(s) Eyes Eyes: Denies change in vision or discharge from eye(s) ENT ENT ED: Denies discharge from eye(s), rhinorrhea or sore throat Cardiovascular Cardiovascular: Reports chest pain and palpitations Respiratory/Chest Respiratory/Chest: Reports dyspnea; Denies cough Gastrointestinal Gastrointestinal: Denies abdominal pain, diarrhea, nausea or vomiting Genitourinary Genitourinary ED: Denies difficulty urinating or dysuria Musculoskeletal Musculoskeletal: Denies back pain or extremity pain Integumentary Denies Abrasions or rash Neurologic Neurologic: Reports headache(s); Denies weakness Psychiatric Psychiatric: Denies anxiety or depression Allergic/Immunologic Allergic/Immunologic ED: Denies lip swelling or urticaria EXAM Physical Exam Const Vital Signs: 05/21/22 16:55 05/21/22 21:06 Temperature 98.2 F Temperature Source Temporal Pulse Rate 115 H 104 H Respiratory Rate 23 H 18 Blood Pressure 113/83 H Blood Pressure Mean 93 Pulse Ox 100 99 Oxygen Delivery Method Room Air Room Air Positive well nourished and well developed General Appearance ED: well developed HEENT Reports normocephalic and head/scalp atraumatic Eyes PERRL and EOMs intact bilaterally Neck supple Chest Wall inspection of chest normal and palpation of chest normal Resp normal respiratory effort and clear to auscultation bilaterally Cardio regular rhythm Rate: tachycardic GI normal to inspection, nondistended, normoactive bowel sounds Palpation: soft Extremity normal to inspection Neuro oriented x3 and no sensory deficits noted Sensorium / Orientation: alert Motor Exam: strength 5/5 throughout Psych mental status grossly normal Skin no rashes or lesions noted MDM MDM MDM Narrative Medical decision making narrative: Patient placed on we[employer] narrow [employer]. EKG, chest x-ray, lab work obtained. Head CT ordered. Lab Data Attestation: I reviewed the patient's lab results. Labs: Laboratory Results - last 24 hr 05/21/22 05/21/22 20:22 20:22 WBC 10.3 RBC 4.15 L Hgb 12.7 Hct 38.9 MCV 93.7 D MCH 30.6 MCHC 32.6 RDW Std Deviation 50.4 H RDW Coeff of Leighton 14.6 Plt Count 257 MPV 9.4 Immature Gran % (Auto) 2.100 H Neut % (Auto) 77.6 H Lymph % (Auto) 7.8 L [place] % (Auto) 10.2 H Eos % (Auto) 1.5 Baso % (Auto) 0.8 Absolute Neuts (auto) 8.0 H Absolute Lymphs (auto) 0.80 L Nucleated RBC % 0 Sodium 135 L Potassium 4.5 Chloride 101 Carbon Dioxide 24.0 Anion Gap 10 BUN 38 H Creatinine 1.52 H Estim Creat Clear Calc 41.62 Est GFR (MDRD) Af Amer 46 L Est GFR (MDRD) Non-Af 38 L BUN/Creatinine Ratio 25.0 H Glucose 103 Calcium 9.5 Total Bilirubin 0.60 Direct Bilirubin 0.23 AST 11 L ALT 19 Alkaline Phosphatase 174 H Troponin I High Sens 16 Total Protein 7.9 Albumin 3.1 L Globulin 4.8 H Radiography Chest X-Ray - ED: 1 View, Read by ED Physician and Cardiomegaly Diagnostic Testing: Clinical Impression(s) from Imaging Studies Brain CT 05/21/22 20:03 IMPRESSION: Normal unenhanced CT scan of the brain. Electronically Signed: Bartolo Loaiza MD at 21:27 EDT , Chest X-Ray 05/21/22 20:39 IMPRESSION: Cardiac enlargement. Lower lung scarring or atelectasis. Electronically Signed: Bartolo Loaiza MD at 21:31 EDT , EKG Initial EKG: Attestation: I personally reviewed and interpreted this EKG as follows: Interpretation: Atrial Flutter (Atrial flutter at 113. No obvious ischemia.) Follow-up EKG: Attestation: I personally reviewed and interpreted this EKG as follows: Interpretation: Atrial Flutter (Atrial flutter at 116 with no acute ischemia.) Treatment and Re-Evaluation Narrative: Patient's recent hospitalization was reviewed. CBC is unremarkable. Chemistry studies significant for mild renal insufficiency, consistent with her baseline values. LFTs significant for alk phos of 174, otherwise unremarkable. EKG reveals atrial flutter with no acute ischemia. Chest x-ray reveals cardiomegaly. Head CT read by radiology as normal. Patient discussed with hospitalist for admission. She is in agreement with staying and receiving the full appropriate work-up. Discharge Plan Triage Chief Complaint: General Illness ED Provider: Claudia Carft Dx/Rx/DC Orders Clinical Impression: Near syncope, Atrial flutter, Chest pain Prescriptions: No Action rosuvastatin [Crestor] 5 mg tablet 10 mg PO DAILY cyclobenzaprine 5 mg tablet 5 mg PO TID PRN PRN (Reason: Spasms) sildenafil (pulm.hypertension) 20 mg tablet 20 mg PO TID pantoprazole 40 mg tablet,delayed release (DR/EC) 40 mg PO QAM Qty: 90 0RF acetaminophen 500 MG tablet 1,000 mg PO DAILY PRN PRN (Reason: Pain 1-10 Or Fever) levothyroxine 25 MCG tablet 25 mcg PO DAILY Label Comments: Take 1 tablet by mouth daily folic acid 1 MG tablet 1 mg PO DAILY cholecalciferol (vitamin D3) 10 MCG capsule 4,000 unit PO DAILY multivitamin Tablet 1 tab PO DAILY MDD SUPPLEMEMT montelukast [Singulair] 10 mg tablet 10 mg PO DAILY dicyclomine 20 mg tablet 20 mg PO TID PRN (Reason: Cramps) Trelegy Ellipta 100-62.5-25 mcg blister with device 1 inh INHALATION DAILY Label Comments: INHALE 1 (ONE) PUFF FOLLOWED BY [employer]AL CARe trazodone 100 mg Tablet 100 mg PO QHS PRN PRN (Reason: Insomnia) 14 Days Qty: 14 0RF acetaminophen-codeine 300-30 mg tablet 1 tab PO Q6H PRN PRN (Reason: Pain) Label Comments: TAKE 1 TABLET EVERY 4 TO 6 HOURS bupropion HCl 300 mg tablet extended release 24 hr 300 mg PO DAILY ursodiol 300 mg capsule 300 mg PO BID Qty: 180 3RF metoprolol tartrate 50 mg tablet 50 mg PO Q12H Qty: 60 11RF amiodarone 200 mg tablet 200 mg PO .COMPLEX Qty: 60 11RF Rx Instructions: 200 mg orally twice a day for 2 weeks, then starting 06/03 decrease to once a day Eliquis 5 mg tablet 5 mg PO BID Qty: 60 11RF Primary Care Provider: Didier Watkins Referrals: Didier Watkins MD [Primary Care Provider] - Disposition Disposition: Acute Care Hospital [facility]
[2022-05-21] MEDS: 0.9% Normal Saline 1,000 ML 150 ML IV (20:30)
[2022-05-21 20:31] LABS: Basophil# 0.08 X10^3/uL; Basophil% 0.8 % (0-1); Eosinophil# 0.15 X10^3/uL; Eosinophils% 1.5 % (0-5); Hematocrit 38.9 % (37-47); Hemoglobin 12.7 g/dL (12.0-15.0); Lymphocyte % 7.8 % (19-41); Mean Corp Hgb Conc 32.6 g/dL (32-36); Mean Corpuscular Hgb 30.6 pg (27.0-32.0); Mean Corpuscular Volume 93.7 fL (81-99); Mean Platelet Vol. 9.4 fl (6.2-12.0); Monocyte# 1.05 X10^3/uL; Monocyte% 10.2 % (0-10); NRBC Flagged by Analyzer 0 % (0-5); Neutrophil # 7.95 X10^3/uL (2.7-7.7); Neutrophil % 77.6 % (47-70); Platelet Count 257 K/mm3 (150-450); RBC Distribution Width CV 14.6 % (11.6-14.6); RBC Distribution Width SD 50.4 fl (35.1-43.9); Red Blood Count 4.15 M/mm3 (4.2-5.4); White Blood Count 10.3 K/mm3 (4.4-11.0)
--- NOTE | 2022-05-21 20:39 | RAD_ITS ---
STUDY: X-RAY CHEST REASON FOR EXAM: Female, 51 years old. Chest pain TECHNIQUE: Single AP portable view of the chest. COMPARISON: May 16, 2022 FINDINGS: There are mild linear increased opacities with scarring or atelectasis of the lower lungs. There is no demonstrated pleural abnormality. There is moderate cardiac enlargement. Normal mediastinum and mayra. Normal visualized pulmonary arteries. Normal visualized aortic arch and descending thoracic aorta. Normal visualized thoracic spine. Normal visualized ribs, clavicles, and shoulders. There is no demonstrated abnormality of the visualized soft tissue structures of the upper abdomen. RAD/Chest 1 View (Portable) IMPRESSION: Cardiac enlargement. Lower lung scarring or atelectasis. Electronically Signed: Bartolo Loaiza MD at 21:31 EDT ,
[2022-05-21 20:51] LABS: AST(SGOT) 11 U/L (15-37); Alanine Aminotransfer ALT/SGPT 19 U/L (13-56); Albumin, Serum 3.1 g/dL (3.2-5.0); Alkaline Phosphatase 174 U/L (45-117); Anion Gap 10 (5-15); BUN 38 mg/dL (7-18); Bilirubin, Direct 0.23 mg/dL (0.00-0.30); Calcium,Total 9.5 mg/dL (8.5-10.1); Chloride 101 mmol/L (98-107); Creatinine, Serum 1.52 mg/dL (0.55-1.02); EST Glomerular Filtration Rate 38 mL/min (>60); Est Glom Filt Rate - Afr Amer 46 mL/min (>60); Estimated Creatinine Clearance 41.62 ml/min; Globulin 4.8 g/dL (2.2-4.2); Glucose 103 mg/dL (74-106); Potassium 4.5 mmol/L (3.5-5.1); Protein, Total 7.9 g/dL (6.4-8.2); Sodium Level 135 mmol/L (136-145); Troponin-I HS 16 pg/mL (3.0-54.0)
[2022-05-21 21:06] VITALS: PULSE 104; RESP 18; O2SAT 99
--- NOTE | 2022-05-21 22:18 | HP.PCM_ITS ---
Documented by User: Sonya Ferguson NP-C 05/21/22 22:32 HPI - General General Date of Admission: 05/21/22 Date of Service: 05/21/22 Chief Complaint: Near syncope HPI Narrative NEYMAR SHEPHERD, is a 51 F who presents following a near syncopal episode. Patient had a similar episode on Friday and was admitted to the hospital by patient left AMA yesterday. Patient states that she just felt overwhelmed with everything that was going on and left. Patient states that today while she was out grocery shopping she had a near syncopal episode and her family brought her back to the ER. Patient states that she wants to complete work-up and that she is concerned regarding these episodes as they are happening frequently. Patient has a history of GERD, hyperlipidemia, hypertension, pulmonary arterial hypertension, paroxysmal atrial fibrillation. Patient states that she also has a history of alcohol abuse however she has not had any alcoholic beverages since Friday as she has been feeling so awful with the syncopal episodes. Patient is currently following with [facility] for assistance with her alcohol abuse. [facility] Medical History Alcohol abuse Alcohol use Allergic rhinitis Anemia Anxiety Atrial fibrillation Bilateral knee pain COPD (chronic obstructive pulmonary disease) CPAP (continuous positive airway pressure) dependence Depression DVT (deep venous thrombosis) Esophageal spasm Essential (primary) hypertension Extremity cyanosis Fatty liver Former smoker Former smoker GERD (gastroesophageal reflux disease) Heart failure with preserved ejection fraction Hiatal hernia History of back problems History of echocardiogram History of edema History of pain when walking History of stress test HLD (hyperlipidemia) Hyperthyroidism Hypomagnesemia Iron deficiency Migraines Morbid obesity with BMI of 40.0-44.9, adult Obstructive sleep apnea Osteoarthritis Patellofemoral syndrome of both knees Pulmonary arterial hypertension Pulmonary embolism (04/26/16) Secondary pulmonary arterial hypertension Tobacco user Tubular adenoma of colon Home Medications cyclobenzaprine 5 mg tablet 5 mg PO TID PRN PRN Spasms 06/18/19 [History Last Taken 05/14/22] rosuvastatin 5 mg tablet (Crestor) 10 mg PO DAILY cholesterol 06/18/19 [History Last Taken 05/21/22 0900] acetaminophen 500 mg tablet 1,000 mg PO DAILY PRN PRN Pain 1-10 Or Fever 08/01/20 [History Last Taken 01/19/22] cholecalciferol (vitamin D3) 10 mcg (400 unit) capsule 4,000 unit PO DAILY supplement 08/01/20 [History Last Taken 05/20/22 09:00] folic acid 1 mg tablet 1 mg PO DAILY supplement 08/01/20 [History Last Taken 05/14/22] levothyroxine 25 mcg tablet 25 mcg PO DAILY thyroid 08/01/20 [History Last Taken 05/20/22 06:00] montelukast 10 mg tablet (Singulair) 10 mg PO DAILY asthma 12/28/20 [History Last Taken 05/20/22 21:00] multivitamin 1 tab PO DAILY DAILY 12/28/20 [History Last Taken 05/20/22 0900] sildenafil (pulm.hypertension) 20 mg tablet 20 mg PO TID pulmonary HTN 05/01/21 [History Last Taken 05/20/22 09:00] pantoprazole 40 mg tablet,delayed release 40 mg PO QAM #90 tabs 10/25/21 [Rx Last Taken 05/20/22 09:00] dicyclomine 20 mg tablet 20 mg PO TID PRN Cramps 12/31/21 [History Last Taken 01/19/22] fluticasone fur. 100 mcg-umeclid 62.5 mcg-vilant 25 mcg inhalat.powder (Trelegy Ellipta) 1 inh inhalation DAILY COPD 01/20/22 [History Last Taken 05/19/22 2100] trazodone 100 mg tablet 100 mg PO QHS PRN PRN Insomnia 14 days #14 tabs 01/24/22 [Rx Last Taken 05/14/22] ursodiol 300 mg capsule 300 mg PO BID #180 caps 02/04/22 [Rx Last Taken 05/21/22 09:00] acetaminophen 300 mg-codeine 30 mg tablet 1 tab PO Q6H PRN PRN Pain 05/16/22 [History Last Taken Unknown] bupropion HCl 300 mg 24 hr tablet, extended release 300 mg PO DAILY mood 05/16/22 [History Last Taken 05/21/22 09:00] amiodarone 200 mg tablet 200 mg PO .COMPLEX #60 tabs 05/20/22 [Rx Last Taken 05/21/22 09:00] apixaban 5 mg tablet (Eliquis) 5 mg PO BID blood thinner #60 tabs 05/20/22 [Rx Last Taken 05/21/22 09:00] metoprolol tartrate 50 mg tablet 50 mg PO Q12H #60 tabs 05/20/22 [Rx Last Taken 05/21/22 0900] Allergy/AdvReac Type Severity Reaction Status Date / Time doxycycline Allergy Hives Verified 05/21/22 16:55 hydrocodone [From Vicodin] AdvReac Itching Verified 05/21/22 16:55 Family History Mother Breast cancer Cancer lung cancer Father Cancer lung cancer Hypertension High cholesterol Surgical History H/O repair of rotator cuff History of History of cardiac catheterization History of cholecystectomy History of hysterectomy History of nasal surgery History of repair of hiatal hernia (12/2020) Social History Smoking Status: Former smoker quit date: 01/11/22 alcohol intake: current alcohol intake frequency: 3 or more drinks per day Alcohol type: hard liquor substance use type: does not use Vital Signs Vital Signs Vital Signs: 05/21/22 16:55 05/21/22 21:06 Temperature 98.2 F Temperature Source Temporal Pulse Rate 115 H 104 H Respiratory Rate 23 H 18 Blood Pressure 113/83 H Blood Pressure Mean 93 Pulse Ox 100 99 Oxygen Delivery Method Room Air Room Air Weight Weight: 240 lb Body Mass Index (BMI) 37.5 Physical Exam Const alert and oriented x3 General Appearance: cooperative HEENT normocephalic, head/scalp atraumatic and moist oral mucous membranes Eyes conjunctivae normal and no scleral icterus Neck no lymphadenopathy and supple General: trachea midline Lymph Lymphatic: no lymphadenopathy noted Resp normal respiratory effort, normal air movement and clear to auscultation bilaterally Cardio regular rate, S1 normal heart sound, S2 normal heart sound and peripheral pulses 2+ throughout GI normal to inspection, nondistended, normoactive bowel sounds, soft to palpation and non-tender Extremity normal capillary refill and no clubbing, cyanosis or edema Skin General Skin Exam: no breakdown Lesions: no lesions Rashes: no rashes Neuro no focal motor deficits and no sensory deficits noted Speech: speech normal Psych thought process normal, cooperative and affect normal Results Lab / Micro Data Result Diagrams: 05/21/22 20:22 05/21/22 20:22 Labs: Laboratory Results - last 24 hr 05/21/22 20:22: WBC 10.3, RBC 4.15 L, Hgb 12.7, Hct 38.9, MCV 93.7 D, MCH 30.6, MCHC 32.6, RDW Std Deviation 50.4 H, RDW Coeff of [place]ight[place] 14.6, Plt Count 257, MPV 9.4, Immature Gran % (Auto) 2.100 H, Neut % (Auto) 77.6 H, Lymph % (Auto) 7.8 L, [place] % (Auto) 10.2 H, Eos % (Auto) 1.5, Baso % (Auto) 0.8, Absolute Neuts (auto) 8.0 H, Absolute Lymphs (auto) 0.80 L, Nucleated RBC % 0 05/21/22 20:22: Sodium 135 L, Potassium 4.5, Chloride 101, Carbon Dioxide 24.0, Anion Gap 10, BUN 38 H, Creatinine 1.52 H, Estim Creat Clear Calc 41.62, Est GFR (MDRD) Af Amer 46 L, Est GFR (MDRD) Non-Af 38 L, BUN/Creatinine Ratio 25.0 H, Glucose 103, Calcium 9.5, Total Bilirubin 0.60, Direct Bilirubin 0.23, AST 11 L, ALT 19, Alkaline Phosphatase 174 H, Troponin I High Sens 16, Total Protein 7.9, Albumin 3.1 L, Globulin 4.8 H Radiology Impression Brain CT 05/21/22 20:03 IMPRESSION: Normal unenhanced CT scan of the brain. Electronically Signed: Bartolo Loaiza MD at 21:27 EDT , Chest X-Ray 05/21/22 20:39 IMPRESSION: Cardiac enlargement. Lower lung scarring or atelectasis. Electronically Signed: Bartolo Loaiza MD at 21:31 EDT , Assessment & Plan Assessment/Plan (1) Near syncope: (2) Atrial flutter: PLAN: Plan 1.Near Syncope -Admit to PCU -Consult cardiology, could discuss case with Dr. White per on-call cardiology request [facility] discussed plan of care with Dr. Benavides as patient is known to him -Trend cardiac enzymes -Orthostatic vitals x1 -Oxygen per protocol -EEG ordered for a.m. -CBC, BMP, magnesium, phosphorus, TSH, T4 ordered for a.m. 2. Atrial fibrillation/flutter -Currently rate controlled -Continue Eliquis, metoprolol, amiodarone -EKG in a.m. 3. COPD -Currently stable -Continue Trelegy, Singulair 4. Depression -Continue losartan and trazodone 5. Pulmonary hypertension -Continue sildenafil 6. Hyperlipidemia -Continue rosuvastatin 7. Chronic kidney disease stage III -Creatinine 1.52, baseline appears to be 1.24-1.34 -BMP daily DVT prophylaxis-not indicated, chronically anticoagulated with Eliquis This patient was seen by Sonya Ferguson NP-C under the supervision of Dr. Christopher. 31 minutes spent in clinical coordination of patient's plan of care. Documented by User: Dr. Jennifer Chrsitopher MD 05/22/22 00:40 HPI - General General Date of Admission: 05/21/22 [facility] Medical History Alcohol abuse Alcohol use Allergic rhinitis Anemia Anxiety Atrial fibrillation Bilateral knee pain COPD (chronic obstructive pulmonary disease) CPAP (continuous positive airway pressure) dependence Depression DVT (deep venous thrombosis) Esophageal spasm Essential (primary) hypertension Extremity cyanosis Fatty liver Former smoker Former smoker GERD (gastroesophageal reflux disease) Heart failure with preserved ejection fraction Hiatal hernia History of back problems History of echocardiogram History of edema History of pain when walking History of stress test HLD (hyperlipidemia) Hyperthyroidism Hypomagnesemia Iron deficiency Migraines Morbid obesity with BMI of 40.0-44.9, adult Obstructive sleep apnea Osteoarthritis Patellofemoral syndrome of both knees Pulmonary arterial hypertension Pulmonary embolism (04/26/16) Secondary pulmonary arterial hypertension Tobacco user Tubular adenoma of colon Home Medications cyclobenzaprine 5 mg tablet 5 mg PO TID PRN PRN Spasms 06/18/19 [History Last Taken 05/14/22] rosuvastatin 5 mg tablet (Crestor) 10 mg PO DAILY cholesterol 06/18/19 [History Last Taken 05/21/22 0900] acetaminophen 500 mg tablet 1,000 mg PO DAILY PRN PRN Pain 1-10 Or Fever 08/01/20 [History Last Taken 01/19/22] cholecalciferol (vitamin D3) 10 mcg (400 unit) capsule 4,000 unit PO DAILY supplement 08/01/20 [History Last Taken 05/20/22 09:00] folic acid 1 mg tablet 1 mg PO DAILY supplement 08/01/20 [History Last Taken 05/14/22] levothyroxine 25 mcg tablet 25 mcg PO DAILY thyroid 08/01/20 [History Last Taken 05/20/22 06:00] montelukast 10 mg tablet (Singulair) 10 mg PO DAILY asthma 12/28/20 [History Last Taken 05/20/22 21:00] multivitamin 1 tab PO DAILY DAILY 12/28/20 [History Last Taken 05/20/22 0900] sildenafil (pulm.hypertension) 20 mg tablet 20 mg PO TID pulmonary HTN 05/01/21 [History Last Taken 05/20/22 09:00] pantoprazole 40 mg tablet,delayed release 40 mg PO QAM #90 tabs 10/25/21 [Rx Last Taken 05/20/22 09:00] dicyclomine 20 mg tablet 20 mg PO TID PRN Cramps 12/31/21 [History Last Taken 01/19/22] fluticasone fur. 100 mcg-umeclid 62.5 mcg-vilant 25 mcg inhalat.powder (Trelegy Ellipta) 1 inh inhalation DAILY COPD 01/20/22 [History Last Taken 05/19/22 2100] trazodone 100 mg tablet 100 mg PO QHS PRN PRN Insomnia 14 days #14 tabs 01/24/22 [Rx Last Taken 05/14/22] ursodiol 300 mg capsule 300 mg PO BID #180 caps 02/04/22 [Rx Last Taken 05/21/22 09:00] acetaminophen 300 mg-codeine 30 mg tablet 1 tab PO Q6H PRN PRN Pain 05/16/22 [History Last Taken Unknown] bupropion HCl 300 mg 24 hr tablet, extended release 300 mg PO DAILY mood 05/16/22 [History Last Taken 05/21/22 09:00] amiodarone 200 mg tablet 200 mg PO .COMPLEX #60 tabs 05/20/22 [Rx Last Taken 05/21/22 09:00] apixaban 5 mg tablet (Eliquis) 5 mg PO BID blood thinner #60 tabs 05/20/22 [Rx Last Taken 05/21/22 09:00] metoprolol tartrate 50 mg tablet 50 mg PO Q12H #60 tabs 05/20/22 [Rx Last Taken 05/21/22 0900] Allergy/AdvReac Type Severity Reaction Status Date / Time doxycycline Allergy Hives Verified 05/21/22 16:55 hydrocodone [From Vicodin] AdvReac Itching Verified 05/21/22 16:55 Family History Mother Breast cancer Cancer lung cancer Father Cancer lung cancer Hypertension High cholesterol Surgical History H/O repair of rotator cuff History of History of cardiac catheterization History of cholecystectomy History of hysterectomy History of nasal surgery History of repair of hiatal hernia (12/2020) Social History Smoking Status: Former smoker quit date: 01/11/22 alcohol intake: current alcohol intake frequency: 3 or more drinks per day Alcohol type: hard liquor substance use type: does not use Results Lab / Micro Data Result Diagrams: 05/21/22 20:22 05/21/22 20: Assessment & Plan Assessment/Plan (1) Near syncope: (2) Atrial flutter:
[2022-05-21 22:48] VITALS: BP 115/78; PULSE 107; RESP 18; TEMP 36.8; O2SAT 99
[2022-05-21 23:09] VITALS: BP 112/78; BP 116/89; BP 117/86; PULSE 107; PULSE 113; PULSE 114
[2022-05-21 23:14] VITALS: BMI 37.7
[2022-05-21 23:26] VITALS: BP 109/80; PULSE 111; RESP 18; TEMP 36.8; O2SAT 98
[2022-05-22] VITALS (18 sets, daily range): BP systolic 93–113; BP diastolic 56–92; PULSE 98–114; RESP 16–18; TEMP 36.8–37.1; O2SAT 96–100
--- NOTE | 2022-05-22 00:33 | TELEMED_ITS ---
[facility] has confirmed receipt of a request for visit. This document confirms receipt of the order initiating the consult. To find the results of the consultation, please view the patient's reports for the scanned Tele[facility] Consult.
[2022-05-22 00:56] LABS: Troponin-I HS 16 pg/mL (3.0-54.0)
[2022-05-22] MEDS: Acetaminophen 325 MG Tablet 650 MG PO (01:08)
[2022-05-22] MEDS: APIXABAN 5 MG TABLET PO ×3 (01:09→22:30)
[2022-05-22] MEDS: Metoprolol Tartrate 100 MG Tablet PO ×3 (01:09→22:30)
[2022-05-22] MEDS: traZODone 100 MG Tablet PO (01:09)
[2022-05-22] MEDS: Amiodarone 200 MG Tablet PO ×3 (01:57→16:31)
--- NOTE | 2022-05-22 02:19 | CPS ---
Patient's home cpap unit at bedside. Pt able to place on independently when ready
[2022-05-22 04:05] LABS: Absolute Lymphocyte Count 1.08 X10^3/uL (0.83-4.51); Absolute Neutrophil Count 6.8 X10^3/uL (2.0-7.7); Basophil# 0.07 X10^3/uL; Basophil% 0.7 % (0-1); Eosinophil# 0.21 X10^3/uL; Eosinophils% 2.2 % (0-5); Hematocrit 37.1 % (37-47); Hemoglobin 11.7 g/dL (12.0-15.0); Lymphocyte # 1.08 X10^3/ul (0.83-4.51); Lymphocyte % 11.4 % (19-41); Mean Corp Hgb Conc 31.5 g/dL (32-36); Mean Corpuscular Hgb 30.5 pg (27.0-32.0); Mean Corpuscular Volume 96.6 fL (81-99); Mean Platelet Vol. 9.5 fl (6.2-12.0); Monocyte# 1.13 X10^3/uL; Monocyte% 11.9 % (0-10); NRBC Flagged by Analyzer 0 % (0-5); Neutrophil # 6.79 X10^3/uL (2.7-7.7); Neutrophil % 71.5 % (47-70); Platelet Count 247 K/mm3 (150-450); RBC Distribution Width CV 14.4 % (11.6-14.6); RBC Distribution Width SD 51.6 fl (35.1-43.9); Red Blood Count 3.84 M/mm3 (4.2-5.4); White Blood Count 9.5 K/mm3 (4.4-11.0)
[2022-05-22 04:23] LABS: Alcohol, Blood (Medical)-Serum < 3.0 mg/dL
[2022-05-22 04:26] LABS: Troponin-I HS 16 pg/mL (3.0-54.0)
[2022-05-22 04:38] LABS: Anion Gap 11 (5-15); BUN 36 mg/dL (7-18); Chloride 104 mmol/L (98-107); EST Glomerular Filtration Rate 39 mL/min (>60); Est Glom Filt Rate - Afr Amer 47 mL/min (>60); Estimated Creatinine Clearance 42.18 ml/min; Glucose 102 mg/dL (74-106); Magnesium 1.9 mg/dL (1.6-2.6); Sodium Level 135 mmol/L (136-145); T4 Free Direct 1.23 ng/dL (0.76-1.46); Thyroid Stim Hormone (TSH) 2.64 uIU/mL (0.358-3.74)
[2022-05-22] MEDS: Levothyroxine 25 MCG TABLET PO (06:57)
--- NOTE | 2022-05-22 07:25 | PCM.PN.HOSP ---
Subjective Subjective Patient is a 51-year-old lady who recently signed herself AGAINST MEDICAL ADVICE following admission for A. fib with RVR and shortness of breath presented to the emergency department with near syncope Objective Data Objective Data Vital Signs: Vital Signs Temp Pulse Resp BP Pulse Ox O2 Del Method 98.3 F 107 H 16 93/58 L 97 Room Air 05/22/22 06:51 05/22/22 06:51 05/22/22 06:51 05/22/22 06:51 05/22/22 06:51 05/22/22 06:51 Oxygen Delivery Method Room Air Weight: 109.316 kg Body Mass Index (BMI) 37.7 Intake & Output: Intake and Output for Last 24 Hours 05/20/22 05/21/22 05/22/22 23:59 23:59 23:59 Intake Total 787.5 / 787.5 Output Total 0 / 0 Balance 787.5 / 787.5 Lab / Micro Data Result Diagrams: 05/22/22 03:45 05/22/22 03:45 Labs: Laboratory Results - last 24 hr 05/21/22 20:22: WBC 10.3, RBC 4.15 L, Hgb 12.7, Hct 38.9, MCV 93.7 D, MCH 30.6, MCHC 32.6, RDW Std Deviation 50.4 H, RDW Coeff of Leighton 14.6, Plt Count 257, MPV 9.4, Immature Gran % (Auto) 2.100 H, Neut % (Auto) 77.6 H, Lymph % (Auto) 7.8 L, [place] % (Auto) 10.2 H, Eos % (Auto) 1.5, Baso % (Auto) 0.8, Absolute Neuts (auto) 8.0 H, Absolute Lymphs (auto) 0.80 L, Nucleated RBC % 0 05/21/22 20:22: Sodium 135 L, Potassium 4.5, Chloride 101, Carbon Dioxide 24.0, Anion Gap 10, BUN 38 H, Creatinine 1.52 H, Estim Creat Clear Calc 41.62, Est GFR (MDRD) Af Amer 46 L, Est GFR (MDRD) Non-Af 38 L, BUN/Creatinine Ratio 25.0 H, Glucose 103, Calcium 9.5, Total Bilirubin 0.60, Direct Bilirubin 0.23, AST 11 L, ALT 19, Alkaline Phosphatase 174 H, Troponin I High Sens 16, Total Protein 7.9, Albumin 3.1 L, Globulin 4.8 H 05/22/22 00:05: Troponin I High Sens 16 05/22/22 03:45: Sodium 135 L, Potassium 4.0, Chloride 104, Carbon Dioxide 20.0 L, Anion Gap 11, BUN 36 H, Creatinine 1.50 H, Estim Creat Clear Calc 42.18, Est GFR (MDRD) Af Amer 47 L, Est GFR (MDRD) Non-Af 39 L, BUN/Creatinine Ratio 24.0 H, Glucose 102, Calcium 9.0, Magnesium 1.9, TSH 2.64, Free T4 1.23 05/22/22 03:45: WBC 9.5, RBC 3.84 L, Hgb 11.7 L, Hct 37.1, MCV 96.6, MCH 30.5, MCHC 31.5 L, RDW Std Deviation 51.6 H, RDW Coeff of [place]ight[place] 14.4, Plt Count 247, MPV 9.5, Immature Gran % (Auto) 2.300 H, Neut % (Auto) 71.5 H, Lymph % (Auto) 11.4 L, [place] % (Auto) 11.9 H, Eos % (Auto) 2.2, Baso % (Auto) 0.7, Absolute Neuts (auto) 6.8, Absolute Lymphs (auto) 1.08, Nucleated RBC % 0 05/22/22 03:45: Phosphorus 4.0 05/22/22 03:45: Troponin I High Sens 16 05/22/22 03:45: Ethyl Alcohol < 3.0 Radiography Diagnostic Testing: Radiology Impression Brain CT 05/21/22 20:03 IMPRESSION: Normal unenhanced CT scan of the brain. Electronically Signed: Bartolo Loaiza MD at 21:27 EDT , Chest X-Ray 05/21/22 20:39 IMPRESSION: Cardiac enlargement. Lower lung scarring or atelectasis. Electronically Signed: Bartolo Loaiza MD at 21:31 EDT , Physical Exam Narrative GENERAL: cooperative HEENT: Atraumatic; normocephalic EYES; Anicteric, Normal Conjunctiva NECK; supple, normal thyroid, RESPIRATORY: Diminished to auscultation CARDIOVASCULAR: Regular S1 S2, GI: soft, normoactive bowel sounds, : No Renal angle tenderness; EXTREMITIES: No edema, no clubbing, MUSCULOSKELETAL: no muscle wasting NEURO: Awake; no lateralizing signs. SKIN: No Rash PSYCH; Flat affect Assessment & Plan Assessment/Plan (1) Near syncope: (2) Atrial flutter: PLAN: Plan Patient is a 51-year-old lady who recently signed herself AGAINST MEDICAL ADVICE following admission for A. fib with RVR and shortness of breath presented to the emergency department with near syncope 1. Near syncope ? Patient has been admitted to a monitored bed for continuous telemetry. As part of her management every shift orthostatic checks ordered consult placed to neuro by admitting physician and EEG ordered. We will follow-up on the results as well as consultation from neurology 2. Paroxysmal A. fib/flutter ? Patient is on amiodarone and metoprolol as well as systemic anticoagulation with Eliquis. Consult was placed to cardiology Case discussed with Dr. Benavides plan for patient to undergo MABEL with cardioversion on 05/23/2022 3. Pulmonary hypertension ? Patient is on refashion did continue 4. Chronic alcohol dependence ? Counseled on cessation 5. COPD ? Currently not in exacerbation did continue patient home regimen including Trelegy Ellipta 6. Class II obesity with BMI of 37.7 ? Weight loss advised 7. Dyslipidemia -Patient is on statin therapy, continued at home dose 8. Chronic kidney disease stage III ? Kidney function at baseline 9. GERD ? On PPI 10. Hypothyroidism - Patient is on levothyroxine home dose continued 11. DVT prophylaxis ? On apixaban Charges/Coding Visit Charges Inpatient E&M: 78999 Subs Hosp L2
--- NOTE | 2022-05-22 07:57 | CON.PCM.CA_ITS ---
Assessment & Plan Assessment/Plan (1) Paroxysmal atrial fibrillation: PLAN: She does have evidence of paroxysmal atrial fibrillation. I suspect this is contributed to by her pulmonary hypertension as well as her alcohol abuse. She is quite uncomfortable at this time her ejection fraction is noted to be preserved I would recommend that we continue anticoagulation and perform a MABEL guided cardioversion on her in a.m. (2) Heart failure with preserved ejection fraction: QUALIFIERS: Heart failure chronicity: acute Qualified Code(s): I50.31 - Acute diastolic (congestive) heart failure PLAN: She does have evidence of heart failure with preserved ejection fraction. I would recommend that we continue her on the current medical therapy with no changes. (3) Secondary pulmonary arterial hypertension: PLAN: She does have evidence of secondary pulmonary hypertension. The etiology is not entirely clear she is on sildenafil which I would recommend continuing for now. (4) Essential (primary) hypertension: PLAN: She does have a history of hypertension. The plan to be to continue her on the current medical therapy. HPI Consult Data Date of Consult: 05/22/22 HPI Narrative HPI Narrative: NEYMAR SHEPHERD, is a 51 F who presents to the emergency room again with palpitations. She was recently admitted to the hospital with atrial fibrillation with rapid ventricular response rate and had not been very compliant with her medications. Her ventricular response rate medications were being adjusted and she signed out AGAINST MEDICAL ADVICE and went home. She decided to present again after 48 hours. She is now remorseful and says that she will follow medical advice. She also has a history of paroxysmal atrial fibrillation, pulmonary hypertension, essential hypertension and previous pulmonary embolism. She also has a history of alcohol abuse. She had been on Eliquis flecainide and metoprolol. While she was hospitalized her ventricular response rate remained high and she was put on intravenous amiodarone and sub sequently switched to oral amiodarone. There were plans to perform a MABEL guided cardioversion and she signed out AGAINST MEDICAL ADVICE. [facility] Medical History Alcohol abuse Alcohol use Allergic rhinitis Anemia Anxiety Atrial fibrillation Bilateral knee pain COPD (chronic obstructive pulmonary disease) CPAP (continuous positive airway pressure) dependence Depression DVT (deep venous thrombosis) Esophageal spasm Essential (primary) hypertension Extremity cyanosis Fatty liver Former smoker Former smoker GERD (gastroesophageal reflux disease) Heart failure with preserved ejection fraction Hiatal hernia History of back problems History of echocardiogram History of edema History of pain when walking History of stress test HLD (hyperlipidemia) Hyperthyroidism Hypomagnesemia Iron deficiency Migraines Morbid obesity with BMI of 40.0-44.9, adult Obstructive sleep apnea Osteoarthritis Patellofemoral syndrome of both knees Pulmonary arterial hypertension Pulmonary embolism (04/26/16) Secondary pulmonary arterial hypertension Tobacco user Tubular adenoma of colon Home Medications cyclobenzaprine 5 mg tablet 5 mg PO TID PRN PRN Spasms 06/18/19 [History Last Taken 05/14/22] rosuvastatin 5 mg tablet (Crestor) 10 mg PO DAILY cholesterol 06/18/19 [History Last Taken 05/21/22 0900] acetaminophen 500 mg tablet 1,000 mg PO DAILY PRN PRN Pain 1-10 Or Fever 08/01/20 [History Last Taken 01/19/22] cholecalciferol (vitamin D3) 10 mcg (400 unit) capsule 4,000 unit PO DAILY supplement 08/01/20 [History Last Taken 05/20/22 09:00] folic acid 1 mg tablet 1 mg PO DAILY supplement 08/01/20 [History Last Taken 05/14/22] levothyroxine 25 mcg tablet 25 mcg PO DAILY thyroid 08/01/20 [History Last Taken 05/20/22 06:00] montelukast 10 mg tablet (Singulair) 10 mg PO DAILY asthma 12/28/20 [History Last Taken 05/20/22 21:00] multivitamin 1 tab PO DAILY DAILY 12/28/20 [History Last Taken 05/20/22 0900] sildenafil (pulm.hypertension) 20 mg tablet 20 mg PO TID pulmonary HTN 05/01/21 [History Last Taken 05/20/22 09:00] pantoprazole 40 mg tablet,delayed release 40 mg PO QAM #90 tabs 10/25/21 [Rx Last Taken 05/20/22 09:00] dicyclomine 20 mg tablet 20 mg PO TID PRN Cramps 12/31/21 [History Last Taken 01/19/22] fluticasone fur. 100 mcg-umeclid 62.5 mcg-vilant 25 mcg inhalat.powder (Trelegy Ellipta) 1 inh inhalation DAILY COPD 01/20/22 [History Last Taken 05/19/22 2100] trazodone 100 mg tablet 100 mg PO QHS PRN PRN Insomnia 14 days #14 tabs 01/24/22 [Rx Last Taken 05/14/22] ursodiol 300 mg capsule 300 mg PO BID #180 caps 02/04/22 [Rx Last Taken 05/21/22 09:00] acetaminophen 300 mg-codeine 30 mg tablet 1 tab PO Q6H PRN PRN Pain 05/16/22 [History Last Taken Unknown] bupropion HCl 300 mg 24 hr tablet, extended release 300 mg PO DAILY mood 2 [History Last Taken 05/21/22 09:00] amiodarone 200 mg tablet 200 mg PO .COMPLEX #60 tabs 05/20/22 [Rx Last Taken 05/21/22 09:00] apixaban 5 mg tablet (Eliquis) 5 mg PO BID blood thinner #60 tabs 05/20/22 [Rx Last Taken 05/21/22 09:00] metoprolol tartrate 50 mg tablet 50 mg PO Q12H #60 tabs 05/20/22 [Rx Last Taken 05/21/22 0900] Allergy/AdvReac Type Severity Reaction Status Date / Time doxycycline Allergy Hives Verified 05/21/22 16:55 hydrocodone [From Vicodin] AdvReac Itching Verified 05/21/22 16:55 Family History Mother Breast cancer Cancer lung cancer Father Cancer lung cancer Hypertension High cholesterol Surgical History H/O repair of rotator cuff History of History of cardiac catheterization History of cholecystectomy History of hysterectomy History of nasal surgery History of repair of hiatal hernia (12/2020) Social History Smoking Status: Former smoker quit date: 01/11/22 alcohol intake: current alcohol intake frequency: 3 or more drinks per day Alcohol type: hard liquor substance use type: does not use ROS Constitutional Constitutional: Denies fever(s) or weight loss Eyes Eyes: Reports systems reviewed and no addt'l complaints, except as documented ENT HEENT: Reports systems reviewed and no addt'l complaints, except as documented Cardiovascular Cardiovascular: Reports palpitations; Denies chest pain at rest, chest pain with activity, dyspnea at rest, dyspnea on exertion, edema or paroxysmal nocturnal dyspnea Respiratory/Chest Respiratory/Chest: Denies dyspnea on exertion, productive cough, shortness of breath at rest or shortness of breath with exertion Gastrointestinal Gastrointestinal: Denies change in bowel habits, nausea, vomiting or weight changes Genitourinary Genitourinary: Denies difficulty urinating Musculoskeletal Musculoskeletal: Denies joint stiffness or muscle weakness Integumentary Integumentary: Denies lesions Neurologic Neurologic: Denies dizziness or syncope Psychiatric Psychiatric: Denies anxiety Endocrine Endocrinology: Denies excessive sweating or fatigue Hematologic/Lymphatic Hematologic/Lymphatic: Denies anemia Allergic/Immunologic Allergic/Immunologic: Denies seasonal rhinorrhea Physical Exam Const alert and oriented x3 General Appearance: cooperative HEENT normocephalic, head/scalp atraumatic and moist oral mucous membranes Eyes conjunctivae normal and no scleral icterus Neck no lymphadenopathy and supple General: trachea midline Lymph Lymphatic: no lymphadenopathy noted Resp normal respiratory effort, normal air movement and clear to auscultation bilaterally Cardio regular rate, S1 normal heart sound, S2 normal heart sound and peripheral pulses 2+ throughout Rhythm: abnormal rhythm GI normal to inspection, nondistended, normoactive bowel sounds, soft to palpation and non-tender Extremity normal capillary refill and no clubbing, cyanosis or edema Skin General Skin Exam: no breakdown Lesions: no lesions Rashes: no rashes Neuro no focal motor deficits and no sensory deficits noted Speech: speech normal Psych thought process normal, cooperative and affect normal Risk Stratification Risk Stratification Applicable: No Objective Data Vital Signs: Vital Signs Temp Pulse Resp BP Pulse Ox O2 Del Method 98.3 F 107 H 16 93/58 L 97 Room Air 05/22/22 06:51 05/22/22 06:51 05/22/22 06:51 05/22/22 06:51 05/22/22 06:51 05/22/22 06:51 Oxygen Delivery Method Room Air Weight: 241 lb Body Mass Index (BMI) 37.7 Intake & Output: Intake and Output for Last 24 Hours 05/20/22 05/21/22 05/22/22 23:59 23:59 23:59 Intake Total 787.5 / 787.5 Output Total 0 / 0 Balance 787.5 / 787.5 Lab / Micro Data Result Diagrams: 05/22/22 03:45 05/22/22 03:45 Labs: Laboratory Results - last 24 hr 05/21/22 20:22: WBC 10.3, RBC 4.15 L, Hgb 12.7, Hct 38.9, MCV 93.7 D, MCH 30.6, MCHC 32.6, RDW Std Deviation 50.4 H, RDW Coeff of Leight[place] 14.6, Plt Count 257, MPV 9.4, Immature Gran % (Auto) 2.100 H, Neut % (Auto) 77.6 H, Lymph % (Auto) 7.8 L, [place] % (Auto) 10.2 H, Eos % (Auto) 1.5, Baso % (Auto) 0.8, Absolute Neuts (auto) 8.0 H, Absolute Lymphs (auto) 0.80 L, Nucleated RBC % 0 05/21/22 20:22: Sodium 135 L, Potassium 4.5, Chloride 101, Carbon Dioxide 24.0, Anion Gap 10, BUN 38 H, Creatinine 1.52 H, Estim Creat Clear Calc 41.62, Est GFR (MDRD) Af Amer 46 L, Est GFR (MDRD) Non-Af 38 L, BUN/Creatinine Ratio 25.0 H, Glucose 103, Calcium 9.5, Total Bilirubin 0.60, Direct Bilirubin 0.23, AST 11 L, ALT 19, Alkaline Phosphatase 174 H, Troponin I High Sens 16, Total Protein 7.9, Albumin 3.1 L, Globulin 4.8 H 05/22/22 00:05: Troponin I High Sens 16 05/22/22 03:45: Sodium 135 L, Potassium 4.0, Chloride 104, Carbon Dioxide 20.0 L , Anion Gap 11, BUN 36 H, Creatinine 1.50 H, Estim Creat Clear Calc 42.18, Est GFR (MDRD) Af Amer 47 L, Est GFR (MDRD) Non-Af 39 L, BUN/Creatinine Ratio 24.0 H , Glucose 102, Calcium 9.0, Magnesium 1.9, TSH 2.64, Free T4 1.23 05/22/22 03:45: WBC 9.5, RBC 3.84 L, Hgb 11.7 L, Hct 37.1, MCV 96.6, MCH 30.5, MCHC 31.5 L, RDW Std Deviation 51.6 H, RDW Coeff of [place]ight[place] 14.4, Plt Count 247, MPV 9.5, Immature Gran % (Auto) 2.300 H, Neut % (Auto) 71.5 H, Lymph % (Auto) 11.4 L , [place] % (Auto) 11.9 H, Eos % (Auto) 2.2, Baso % (Auto) 0.7, Absolute Neuts (auto) 6.8, Absolute Lymphs (auto) 1.08, Nucleated RBC % 0 05/22/22 03:45: Phosphorus 4.0 05/22/22 03:45: Troponin I High Sens 16 05/22/22 03:45: Ethyl Alcohol < 3.0 Cardiology Labs/Tests 05/21/22 20:22: WBC 10.3, RBC 4.15 L, Hgb 12.7, Hct 38.9, MCV 93.7 D, MCH 30.6, MCHC 32.6, Plt Count 257, MPV 9.4, Immature Gran % (Auto) 2.100 H, Neut % (Auto) 77.6 H, Lymph % (Auto) 7.8 L, [place] % (Auto) 10.2 H, Eos % (Auto) 1.5, Baso % (Auto) 0.8, Absolute Neuts (auto) 8.0 H, Nucleated RBC % 0 05/21/22 20:22: Sodium 135 L, Potassium 4.5, Chloride 101, Carbon Dioxide 24.0, Anion Gap 10, BUN 38 H, Creatinine 1.52 H, Est GFR (MDRD) Af Amer 46 L, Est GFR (MDRD) Non-Af 38 L, BUN/Creatinine Ratio 25.0 H, Glucose 103, Calcium 9.5, Total Bilirubin 0.60, Direct Bilirubin 0.23 05/22/22 03:45: Sodium 135 L, Potassium 4.0, Chloride 104, Carbon Dioxide 20.0 L , Anion Gap 11, BUN 36 H, Creatinine 1.50 H, Est GFR (MDRD) Af Amer 47 L, Est GFR (MDRD) Non-Af 39 L, BUN/Creatinine Ratio 24.0 H, Glucose 102, Calcium 9.0, Magnesium 1.9 05/22/22 03:45: WBC 9.5, RBC 3.84 L, Hgb 11.7 L, Hct 37.1, MCV 96.6, MCH 30.5, MCHC 31.5 L, Plt Count 247, MPV 9.5, Immature Gran % (Auto) 2.300 H, Neut % (Auto) 71.5 H, Lymph % (Auto) 11.4 L, [place] % (Auto) 11.9 H, Eos % (Auto) 2.2, Baso % (Auto) 0.7, Absolute Neuts (auto) 6.8, Nucleated RBC % 0 05/22/22 03:45: Phosphorus 4.0 Rhythm: EKG: ECHO: Stress Test: Cardiac Cath: PCI: CT Surgery: Holter monitor: EPS: PPM: CXR: Chest CT Scan: Radiography Diagnostic Testing: Radiology Impression Brain CT 05/21/22 20:03 IMPRESSION: Normal unenhanced CT scan of the brain. Electronically Signed: Bartolo Loaiza MD at 21:27 EDT , Chest X-Ray 05/21/22 20:39 IMPRESSION: Cardiac enlargement. Lower lung scarring or atelectasis. Electronically Signed: Bartolo Loaiza MD at 21:31 EDT ,
[2022-05-22] MEDS: Folic Acid 1 MG Tablet PO (09:17)
[2022-05-22] MEDS: Montelukast 10 MG Tablet PO (09:17)
[2022-05-22] MEDS: buPROPion (XL) 300 MG TABLET.XL PO (09:17)
[2022-05-22] MEDS: Multivitamins,Therapeutic Tablet 1 TABLET PO (09:17)
[2022-05-22] MEDS: Ursodiol 250 MG Tablet PO ×2 (09:17→16:31)
[2022-05-22] MEDS: Pantoprazole Sodium 40 MG Tablet PO (09:18)
[2022-05-22] MEDS: Atorvastatin Calcium 20 MG Tablet PO (09:32)
[2022-05-22] MEDS: SILDENAFIL CITRATE 20 MG TABLET PO (22:39)
[2022-05-22] MEDS: FLUTICASONE/UMECLIDIN/VILANTER 1 EACH BLST.W.DEV INHALATION (22:40)
[2022-05-23] VITALS (20 sets, daily range): BP systolic 100–126; BP diastolic 68–94; PULSE 73–115; RESP 14–22; TEMP 35.8–36.9; O2SAT 89–100
[2022-05-23] MEDS: Acetaminophen 325 MG Tablet 650 MG PO (02:49)
[2022-05-23 03:17] LABS: Amphetamine Urine VISTA NEGATIVE (<1000 ng/mL); Barbiturate Urine VISTA POSITIVE (< 200 ng/mL); Benzodiazepine Urine VISTA NEGATIVE (< 200 ng/mL); Cocaine Urine VISTA NEGATIVE (< 300 ng/mL); Ecstacy Urine VISTA POSITIVE (< 500 ng/mL); Methadone Urine VISTA NEGATIVE (< 300 ng/mL); PCP Urine VISTA NEGATIVE (< 25 ng/mL); THC Urine VISTA NEGATIVE (< 50 ng/mL); Vista UDS pH Range 5
[2022-05-23] MEDS: APIXABAN 5 MG TABLET PO (07:50)
[2022-05-23] MEDS: Metoprolol Tartrate 100 MG Tablet PO (07:50)
[2022-05-23] MEDS: Amiodarone 200 MG Tablet PO ×2 (07:50→16:32)
--- NOTE | 2022-05-23 08:30 | ECHOTEE_ITS ---
Reason For Study: Afib/Flutter Medication MABEL probe 6VT-D (SN [id number]) passed with minimal difficulty. No complications were noted. Cetacaine Topical [place] given X3 orally. Versed 1 mg given slow IVP. Fentanyl 50 mcg given slow IVP. Performed a rapid injection of agitated mix of 9 cc saline and 1cc air to assess for atrial septal defect. Left Ventricle Normal LV size. The estimated ejection fraction is 40 %. There is mild to moderate global hypokinesis of the left ventricle. Right Ventricle Moderately dilated right ventricle. Moderate global right ventricular systolic dysfunction. Atria Patent foramen ovale. The left atrium is moderately enlarged. Normal right atrium. Mitral Valve Normal mitral valve. Mild (1+) eccentric mitral valve insufficiency. Tricuspid Valve Normal tricuspid valve. Moderate (2+) tricuspid valve insufficiency. Aortic Valve Trisinus/trileaflet aortic valve. Pulmonic Valve Normal pulmonic valve. Pericardium Small pericardial effusion. ECHO/Echo Transesophageal (MABEL) Interpretation Summary Normal LV size. The estimated ejection fraction is 40 %. There is mild to moderate global hypokinesis of the left ventricle. Moderate global right ventricular systolic dysfunction. Moderately dilated right ventricle. The left atrium is moderately enlarged. Patent foramen ovale. Small pericardial effusion. Ordering Physician: Luis Benavides Referring Physician: Didier Watkins Performed By: Trip Jurado RCS
--- NOTE | 2022-05-23 09:55 | EKG12_ITS ---
Test Reason : AFIB Blood Pressure : / mmHG Vent. Rate : 113 BPM Atrial Rate : 113 BPM P-R Int : 226 ms QRS Dur : 102 ms QT Int : 380 ms P-R-T Axes : 000 100 -05 degrees QTc Int : 521 ms Atrial Flutter with variable block T wave abnormality, consider anterior ischemia Prolonged QT Abnormal ECG Confirmed by PHAN DIAZ, NIKOLAS ([id number]), news videotape editor SHERYL PRAJAPATI ([id number]) on 05/23/2022 10:25:01 AM Referred By: PHAN Confirmed By:NIKOLAS CHISHOLM MD
--- NOTE | 2022-05-23 12:50 | CASEMGMT ---
SW met with patient. Introduced self and role at [facility]. SW asked patient about her alcohol intake. Patient confirmed she is active with [facility] [employer] and she sees Lorna. Patient knows she needs to go see her counselor. Patient has not had a drink since she left the hospital last time (05-20-22). Patient found out she has a cousin that has issues with drinking as well and they have been talking a lot. Patient opened up and shared some information that happened when she was a teenager and how she is working through it. SW listened and provided emotional support. Patient was appreciative of SW's visit. Melissa Cueva [facility]
--- NOTE | 2022-05-23 13:23 | PCM.OP.PRO ---
Procedure Report Date of Procedure: 05/23/22 CONSCIOUS SEDATION REPORT DATE OF SERVICE: May 23, 2022 BRIEF HISTORY OF PRESENT ILLNESS: The patient is a 51-year-old female who is currently admitted to the hospital after presenting with near syncope. The patient does have a history of paroxysmal atrial fibrillation, along with COPD and obstructive sleep apnea, for which she reportedly utilizes nocturnal CPAP therapy. She is currently anticoagulated on Eliquis with an ejection fraction of 55% on her echocardiogram. She denied any prior anesthetic complications. PHYSICAL EXAMINATION: VITAL SIGNS: Reviewed and were acceptable. GENERAL: The patient is an obese female, in no apparent distress, speaking in full sentences. HEENT: Normocephalic, atraumatic. Mucous membranes are moist and pink. Good mouth opening noted. Trachea is midline. Good neck mobility. CHEST: S1, S2 irregularly irregular. No murmurs, rubs or gallops were noted. LUNGS: Clear to auscultation bilaterally without appreciable wheezes, rales or rhonchi. ABDOMEN: Soft, nontender, nondistended. Positive bowel sounds. EXTREMITIES: There is no clubbing, cyanosis or edema. ASA Class: II DESCRIPTION OF PROCEDURE: After confirmation of informed consent, the patient's anesthesia plan was reviewed in detail. Propofol was chosen. Risks and benefits were reviewed and the patient agreed to proceed. At 1310, the patient was given her first bolus of propofol. In total, the patient required 100 mg of propofol to achieve an appropriate level of sedation, after which time she was given a 200 joule synchronized cardioversion by Dr. Benavides at the bedside. This was successful in achieving normal sinus rhythm. The patient was monitored until 1323, at which time she reached her baseline mental status and function. The patient tolerated the procedure well. COMPLICATIONS: None ESTIMATED BLOOD LOSS: None RECOMMENDATIONS: Okay to recover in usual fashion. Procedures Pulmonary 9xxxx: [id number] Con Sedation
--- NOTE | 2022-05-23 13:27 | PCM.OP.BLANK ---
Operative Report Date of Procedure: 05/23/22 Direct-current cardioversion. The patient was brought to the cardiac catheterization lab in the postabsorptive nonsedated state. The patient had undergone a transesophageal echocardiogram earlier in the day which had demonstrated no evidence of left atrial appendage thrombus. Informed consent was obtained. The patient was seen by Dr. Baez of the critical care division. Anterior-posterior pads were applied. The patient was administered 100 mg of intravenous propofol. 200 J of biphasic energy were applied with prompt reversal to sinus rhythm. Patient tolerated the procedure well. Conclusion: Successful cardioversion from atrial fibrillation to sinus rhythm.
--- NOTE | 2022-05-23 13:29 | PN.CARD_ITS ---
Subjective Subjective Patient seen and evaluated. Objective Data Vital Signs: Vital Signs Temp Pulse Resp BP Pulse Ox O2 Del Method 97.2 F L 115 H 19 H 102/92 H 100 Room Air 05/23/22 10:30 05/23/22 11:37 05/23/22 11:37 05/23/22 11:37 05/23/22 11:37 05/23/22 11:37 Oxygen Delivery Method Room Air Weight: 241 lb Body Mass Index (BMI) 37.7 Intake & Output: Intake and Output for Last 24 Hours 05/21/22 05/22/22 05/23/22 23:59 23:59 23:59 Intake Total 1687.5 / 1687.5 Output Total 0 / 0 Balance 1687.5 / 1687.5 Lab / Micro Data Result Diagrams: 05/22/22 03:45 05/22/22 03:45 Labs: Laboratory Results - last 24 hr 05/23/22 03:00: Urine Opiates Screen NEGATIVE, Urine Methadone Screen NEGATIVE, Ur Barbiturates Screen POSITIVE H, Ur Phencyclidine Scrn NEGATIVE, Ur Amphetamines Screen NEGATIVE, MDMA (Ecstasy) Screen POSITIVE H, U Benzodiazepines Scrn NEGATIVE, Urine Cocaine Screen NEGATIVE, U Cannabinoids Screen NEGATIVE, Ur Drug Screen Comment Cardiology Labs/Tests Rhythm: EKG: ECHO: Stress Test: Cardiac Cath: PCI: CT Surgery: Holter monitor: EPS: PPM: CXR: Chest CT Scan: Radiography Diagnostic Testing: Radiology Impression Transesophageal Echocardiogram 05/23/22 08:30 Interpretation Summary Normal LV size. The estimated ejection fraction is 40 %. There is mild to moderate global hypokinesis of the left ventricle. Moderate global right ventricular systolic dysfunction. Moderately dilated right ventricle. The left atrium is moderately enlarged. Patent foramen ovale. Small pericardial effusion. Ordering Physician: Luis Benavides Referring Physician: Didier Watkins Performed By: Trip Jurado RCS Physical Exam Const alert and oriented x3 General Appearance: cooperative HEENT normocephalic, head/scalp atraumatic and moist oral mucous membranes Eyes conjunctivae normal and no scleral icterus Neck no lymphadenopathy and supple General: trachea midline Lymph Lymphatic: no lymphadenopathy noted Resp normal respiratory effort, normal air movement and clear to auscultation bilaterally Cardio regular rate, S1 normal heart sound, S2 normal heart sound and peripheral pulses 2+ throughout Rhythm: abnormal rhythm GI normal to inspection, nondistended, normoactive bowel sounds, soft to palpation and non-tender Extremity normal capillary refill and no clubbing, cyanosis or edema Skin General Skin Exam: no breakdown Lesions: no lesions Rashes: no rashes Neuro no focal motor deficits and no sensory deficits noted Speech: speech normal Psych thought process normal, cooperative and affect normal Assessment & Plan Assessment/Plan (1) Paroxysmal atrial fibrillation: PLAN: She does have evidence of paroxysmal atrial fibrillation. I suspect this is contributed to by her pulmonary hypertension as well as her alcohol abuse. She underwent a transesophageal echocardiogram which was free of any left atrial appendage thrombus and she underwent a successful DC cardioversion. * I would recommend at this time that we continue her on anticoagulation with amiodarone 200 mg twice daily until she is seen in the office * Continue metoprolol 100 mg twice a day (2) Heart failure with preserved ejection fraction: QUALIFIERS: Heart failure chronicity: acute Qualified Code(s): I50.31 - Acute diastolic (congestive) heart failure PLAN: She does have evidence of heart failure with preserved ejection fraction. I would recommend that we continue her on the current medical therapy with no changes. (3) Secondary pulmonary arterial hypertension: PLAN: She does have evidence of secondary pulmonary hypertension. The etiology is not entirely clear she is on sildenafil which I would recommend continuing for now. (4) Essential (primary) hypertension: PLAN: She does have a history of hypertension. The plan to be to continue her on the current medical therapy.
[2022-05-23] MEDS: Multivitamins,Therapeutic Tablet 1 TABLET PO (13:53)
[2022-05-23] MEDS: Pantoprazole Sodium 40 MG Tablet PO (13:53)
[2022-05-23] MEDS: buPROPion (XL) 300 MG TABLET.XL PO (13:53)
[2022-05-23] MEDS: Folic Acid 1 MG Tablet PO (13:53)
[2022-05-23] MEDS: Montelukast 10 MG Tablet PO (13:53)
--- NOTE | 2022-05-23 14:02 | PCM.DC.SUM ---
Providers Date of Admission: 05/21/22 Date of Discharge: 05/23/22 Primary Care Physician: Dr. Didier Watkins MD Consultations 05/21/22 23:09 Consult: Cardiology Routine Consulting Provider: Didier White Reason for Consult: Syncope EMERGENT Consult: No Notified: Yes Date Notified: 05/21/22 Time Notified: 22:16 Method of Notification: Text Reason For Visit: NEAR SYNCOPE Diagnosis Discharge Diagnosis (1) Paroxysmal atrial fibrillation: Status: Chronic Code(s): I48.0 - Paroxysmal atrial fibrillation (2) Heart failure with preserved ejection fraction: Status: Acute Code(s): I50.30 - Unspecified diastolic (congestive) heart failure Qualifiers: Heart failure chronicity: acute Qualified Code(s): I50.31 - Acute diastolic (congestive) heart failure (3) Secondary pulmonary arterial hypertension: Status: Chronic Code(s): I27.21 - Secondary pulmonary arterial hypertension (4) Essential (primary) hypertension: Status: Chronic Code(s): I10 - Essential (primary) hypertension Medications at Discharge Home Medications cyclobenzaprine 5 mg tablet 5 mg PO TID PRN PRN Spasms 06/18/19 rosuvastatin 5 mg tablet (Crestor) 10 mg PO DAILY cholesterol 06/18/19 acetaminophen 500 mg tablet 1,000 mg PO DAILY PRN PRN Pain 1-10 Or Fever 08/01/20 cholecalciferol (vitamin D3) 10 mcg (400 unit) capsule 4,000 unit PO DAILY supplement 08/01/20 folic acid 1 mg tablet 1 mg PO DAILY supplement 08/01/20 levothyroxine 25 mcg tablet 25 mcg PO DAILY thyroid 08/01/20 montelukast 10 mg tablet (Singulair) 10 mg PO DAILY asthma 12/28/20 multivitamin 1 tab PO DAILY DAILY 12/28/20 sildenafil (pulm.hypertension) 20 mg tablet 20 mg PO TID pulmonary HTN 05/01/21 pantoprazole 40 mg tablet,delayed release 40 mg PO QAM #90 tabs 10/25/21 dicyclomine 20 mg tablet 20 mg PO TID PRN Cramps 12/31/21 fluticasone fur. 100 mcg-umeclid 62.5 mcg-vilant 25 mcg inhalat.powder (Trelegy Ellipta) 1 inh inhalation DAILY COPD 01/20/22 trazodone 100 mg tablet 100 mg PO QHS PRN PRN Insomnia 14 days #14 tabs 01/24/22 ursodiol 300 mg capsule 300 mg PO BID #180 caps 02/04/22 acetaminophen 300 mg-codeine 30 mg tablet 1 tab PO Q6H PRN PRN Pain 05/16/22 bupropion HCl 300 mg 24 hr tablet, extended release 300 mg PO DAILY mood 05/16/22 apixaban 5 mg tablet (Eliquis) 5 mg PO BID blood thinner #60 tabs 05/20/22 metoprolol tartrate 50 mg tablet 50 mg PO Q12H #60 tabs 05/20/22 losartan 50 mg-hydrochlorothiazide 12.5 mg tablet 1 tab PO DAILY bp 05/22/22 amiodarone 200 mg tablet 200 mg PO BID #60 tabs 05/23/22 metoprolol tartrate 100 mg tablet 100 mg PO Q12 #60 tabs 05/23/22 Hospital Course Operations None Procedures Cardioversion, EKG and Transesophageal Echo Summary of Care Provided Minutes Spent on Discharge: 33 Hospital Course: Mrs. Barroso is a 51-year-old female who presented to the emergency department at [facility] on 05/21/2022 with the chief complaint of presyncope. The patient had recently been admitted here from 05/16/2022 through 05/20/2022 at which time she left AGAINST MEDICAL ADVICE. During that hospitalization she presented for palpitations and chest heaviness and noted she had not been feeling well for approximately 3 weeks prior to presentation. She noted her heart rate was 155 bpm upon presentation the emergency department and was found to be in A. fib with RVR. She has a known history of paroxysmal atrial fibrillation which is likely related to her pulmonary hypertension and alcohol use. She had been on Eliquis, flecainide, and metoprolol at home. She was seen in the office approximately 6 weeks prior to presentation felt okay at that time but did note that she resumed utilizing alcohol since that appointment. She also admitted not to taking her medications routinely since she was last seen in the office. The plan prior to her leaving AMA was a MABEL with cardioversion considering she had be refractory to medication at that time but she left AMA and her work-up was halted. She represented to the emergency department on the and noted that she felt overwhelmed and that is why she left AGAINST MEDICAL ADVICE. She evidently had been out grocery shopping when she had a near syncopal event and the family brought her back to the emergency department. Her last alcoholic beverage was reported by her to be on Friday prior to admission and she is following with 180 as an outpatient for her alcohol abuse. EEG was done on 05/22/2022 and was negative for any signs of epileptiform activity or other abnormalities. A MABEL was performed on 05/23/2022 and showed an EF of 40% with mild to moderate global hypokinesis of the left ventricle and moderate global right ventricular systolic dysfunction and dilation. She had a patent foramen ovale and the left atrium is moderately enlarged. She was also noted to have a small pericardial effusion at that time. No clots were noted and therefore she was taken for cardioversion with successful synchronized cardioversion into normal sinus rhythm. Cardiology initiated amiodarone 200 mg p.o. twice daily and she is to be maintained on her oral anticoagulation of Eliquis 5 mg p.o. twice daily. We strongly encouraged her to stop utilizing alcohol and continue outpatient follow-up with 180. She was evaluated by [facility]y during her hospitalization and they feel that her presyncopal episodes are likely related to alcohol withdrawal and possibly alcohol withdrawal seizures or related to her paroxysmal atrial fibrillation. I strongly recommended to her complete alcohol cessation and outpatient follow-up that she is currently doing.. Is recommended she follow-up with her primary care physician within the next 1 to 2 weeks and with cardiology within the next 4 weeks. She was discharged home in stable condition on 05/23/2022 with prescriptions for her change in medications including amiodarone 200 mg p.o. twice daily until she follows up with cardiology and her metoprolol was increased from 50 mg p.o. twice daily to 100 mg p.o. twice daily. Her losartan HCTZ was on hold until she follows up with cardiology. Discharge diagnoses: Presyncope A. fib with RVR HFrEF Patent foramen ovale Pulmonary artery hypertension Small pericardial effusion Alcohol abuse Asthma Seasonal allergies Anxiety Chronic pain GERD Anemia History of tobacco abuse Obesity OA History of pulmonary embolism FADY Physical Exam Narrative Patient reports no issues overnight. Cardioversion was done this afternoon at noon with subsequent normal sinus rhythm being maintained. Okay with cardiology for discharge and patient anxious to go home however awaiting follow-up from [facility] neurology Const alert, oriented x3, no apparent distress, no limitations, healthy appearing and well nourished Constitutional Narrative: Obese, middle-aged, white female sitting up in bed, appears comfortable nontoxic, nursing at bedside, awaiting [facility] neurology evaluation General Appearance: cooperative, comfortable, well kempt and well developed Orientation / Consciousness: awake, oriented to person, oriented to place and oriented to time Exam Limitations: no limitations Nutritional Appearance: obese HEENT normocephalic, head/scalp atraumatic, hearing grossly normal bilaterally and moist oral mucous membranes HEENT Narrative: Mallampati 3, no thrush Resp normal respiratory effort, no retractions, no use of accessory muscles and clear to auscultation bilaterally Auscultation: Negative for crackles, rales, rhonchi or wheezes Cardio regular rate, regular rhythm, S1 normal heart sound, S2 normal heart sound, no murmurs, no rub, no gallops and no clicks Cardio Narrative: Cardiac exam was done after cardioversion GI normal to inspection, nondistended, normoactive bowel sounds, soft to palpation and non-distended Extremity no clubbing, cyanosis or edema Skin no rashes or lesions noted, no wounds, skin turgor normal and no jaundice Neuro oriented x3, CN's II-XII intact bilaterally, moves all extremities, no focal motor deficits and no sensory deficits noted Speech: speech normal Psych affect normal Psych Narrative: Appropriately interactive Weight / BMI Weight Weight: 109.316 kg Body Mass Index (BMI) 37.7 ABG / Lab / Microbiology Data Result Diagrams: 05/22/22 03:45 05/22/22 03:45 Laboratory: Laboratory Results - last 24 hr 05/23/22 03:00: Urine Opiates Screen NEGATIVE, Urine Methadone Screen NEGATIVE, Ur Barbiturates Screen POSITIVE H, Ur Phencyclidine Scrn NEGATIVE, Ur Amphetamines Screen NEGATIVE, MDMA (Ecstasy) Screen POSITIVE H, U Benzodiazepines Scrn NEGATIVE, Urine Cocaine Screen NEGATIVE, U Cannabinoids Screen NEGATIVE, Ur Drug Screen Comment Radiography Diagnostic Testing: Radiology Impression Transesophageal Echocardiogram 05/23/22 08:30 Interpretation Summary Normal LV size. The estimated ejection fraction is 40 %. There is mild to moderate global hypokinesis of the left ventricle. Moderate global right ventricular systolic dysfunction. Moderately dilated right ventricle. The left atrium is moderately enlarged. Patent foramen ovale. Small pericardial effusion. Ordering Physician: Luis Benavides Referring Physician: Didier Watkins Performed By: Trip Jurado RCS D/C Instructions Discharge Diet: Low fat / Low cholesterol Discharge Activity: Return to Normal Activity Return to work on: 05/25/22 Meaningful Use Info Meaningful Use Diagnoses (Choose all that apply): None applicable Discharge Plan Admission Admit Date/Time: 05/21/22 22:08 Primary Reason for Your Visit: Near syncope Attending Provider: Anya Julio Primary Care Provider: Didier Watkins Consulting Providers: Didier White ; Jennifer Christopher ; Henrik Werner Instructions Additional Instructions / Restrictions: 1. Strongly recommend ongoing alcohol cessation and outpatient follow-up with 180 as it is likely that these are attributing to your atrial fibrillation as well as your episodes that cause you to present to the hospital Discharge Orders/Prescriptions Prescriptions: New amiodarone 200 mg Tablet 200 mg PO BID Qty: 60 0RF metoprolol tartrate 100 mg Tablet 100 mg PO Q12 Qty: 60 0RF Continued rosuvastatin [Crestor] 5 mg tablet 10 mg PO DAILY cyclobenzaprine 5 mg tablet 5 mg PO TID PRN PRN (Reason: Spasms) sildenafil (pulm.hypertension) 20 mg tablet 20 mg PO TID pantoprazole 40 mg tablet,delayed release (DR/EC) 40 mg PO QAM Qty: 90 0RF acetaminophen 500 MG tablet 1,000 mg PO DAILY PRN PRN (Reason: Pain 1-10 Or Fever) levothyroxine 25 MCG tablet 25 mcg PO DAILY Label Comments: Take 1 tablet by mouth daily folic acid 1 MG tablet 1 mg PO DAILY cholecalciferol (vitamin D3) 10 MCG capsule 4,000 unit PO DAILY multivitamin Tablet 1 tab PO DAILY MDD SUPPLEMEMT montelukast [Singulair] 10 mg tablet 10 mg PO DAILY dicyclomine 20 mg tablet 20 mg PO TID PRN (Reason: Cramps) Trelegy Ellipta 100-62.5-25 mcg blister with device 1 inh INHALATION DAILY Label Comments: INHALE 1 (ONE) PUFF FOLLOWED BY [facility] trazodone 100 mg Tablet 100 mg PO QHS PRN PRN (Reason: Insomnia) 14 Days Qty: 14 0RF acetaminophen-codeine 300-30 mg tablet 1 tab PO Q6H PRN PRN (Reason: Pain) Label Comments: TAKE 1 TABLET EVERY 4 TO 6 HOURS bupropion HCl 300 mg tablet extended release 24 hr 300 mg PO DAILY ursodiol 300 mg capsule 300 mg PO BID Qty: 180 3RF metoprolol tartrate 50 mg tablet 50 mg PO Q12H Qty: 60 11RF Eliquis 5 mg tablet 5 mg PO BID Qty: 60 11RF Held losartan-hydrochlorothiazide 50-12.5 mg tablet 1 tab PO DAILY Hold Instructions: Until evaluated by cardiology Label Comments: TAKE 1 TABLET BY MOUTH DAILY Discontinued amiodarone 200 mg tablet 200 mg PO .COMPLEX Qty: 60 11RF Rx Instructions: 200 mg orally twice a day for 2 weeks, then starting 103 decrease to once a day Referrals / Follow Up: Didier Watkins MD [Primary Care Provider] - Within 1 Week Jasmyne Sparks PA [Med Staff - [facility]] - Within 1 Month (Call for appointment) Disposition Disposition (needs filled in before D/C Order can be placed): Home, Self Care Charges/Coding Visit Charges OBSV E&M: 31345 Observation care discharge
[2022-05-23] MEDS: SILDENAFIL CITRATE 20 MG TABLET PO (14:30)
[2022-05-23] MEDS: Ursodiol 250 MG Tablet PO (16:32)
== END 2022-05-23 15:22 | disposition home or self-care (01) ==
LOC: ED 22:05 → PCU 22:30
PROVIDERS: Nurse Practitioner Family; Admitting Provider Family Medicine; Emergency Provider Emergency Medicine; PCP Family Medicine; Visit Provider Internal Medicine
DX: I48.0 Paroxysmal atrial fibrillation (principal); J44.9 Chronic obstructive pulmonary disease, unspecified; I13.0 Hypertensive heart and chronic kidney disease with heart failure and stage 1 through stage 4 chronic kidney disease, or unspecified chronic kidney disease; I50.31 Acute diastolic (congestive) heart failure; I27.21 Secondary pulmonary arterial hypertension; I48.92 Unspecified atrial flutter; N18.30 Chronic kidney disease, stage 3 unspecified; Q21.1 Atrial septal defect; G47.33 Obstructive sleep apnea (adult) (pediatric); K21.9 Gastro-esophageal reflux disease without esophagitis; Z79.01 Long term (current) use of anticoagulants; E66.9 Obesity, unspecified; E78.5 Hyperlipidemia, unspecified; Z87.891 Personal history of nicotine dependence; F32.A Depression, unspecified; F10.10 Alcohol abuse, uncomplicated; M19.90 Unspecified osteoarthritis, unspecified site; F41.9 Anxiety disorder, unspecified; Z68.37 Body mass index [BMI] 37.0-37.9, adult; Z79.899 Other long term (current) drug therapy; Z79.890 Hormone replacement therapy; Z86.718 Personal history of other venous thrombosis and embolism; Z86.711 Personal history of pulmonary embolism; R55 Syncope and collapse; E03.9 Hypothyroidism, unspecified
CPT/HCPCS: 36415; 70450; 71045; 80048; 80076; 80307; 82077; 83735; 84100; 84439; 84443; 84484; 85025; 92960; 93005; 93312; 93320; 93325; 95819; 96360; 96361; 99218; 99284; 99406; J7030; J7040; A4216; G0378

== ENCOUNTER → 2022-06-10 | Outpatient (CLI) | payer MEDICAID, SELFPAY ==
[2022-06-10 16:49] LABS: Anion Gap 6 (5-15); BUN 31 mg/dL (7-18); BUN/Creat Ratio 17.7 RATIO (10-20); Calcium,Total 9.3 mg/dL (8.5-10.1); Chloride 106 mmol/L (98-107); Creatinine, Serum 1.75 mg/dL (0.55-1.02); EST Glomerular Filtration Rate 32 mL/min (>60); Est Glom Filt Rate - Afr Amer 39 mL/min (>60); Glucose 90 mg/dL (74-106); Sodium Level 140 mmol/L (136-145)
== END | disposition home or self-care (01) ==
LOC: LAB 14:53
PROVIDERS: PCP Family Medicine; Referring Provider Internal Medicine Cardiovascular Disease; Visit Provider Internal Medicine Cardiovascular Disease
DX: I48.3 Typical atrial flutter (principal); I50.20 Unspecified systolic (congestive) heart failure; I42.8 Other cardiomyopathies; I27.21 Secondary pulmonary arterial hypertension; E66.01 Morbid (severe) obesity due to excess calories; Z68.41 Body mass index [BMI] 40.0-44.9, adult; E78.5 Hyperlipidemia, unspecified; K22.4 Dyskinesia of esophagus; K76.0 Fatty (change of) liver, not elsewhere classified; K74.00 Hepatic fibrosis, unspecified; R74.8 Abnormal levels of other serum enzymes; F10.10 Alcohol abuse, uncomplicated
CPT/HCPCS: 36415; 80048

== ENCOUNTER → 2022-06-18 | Outpatient (CLI) | payer MEDICAID, SELFPAY ==
[2022-06-18 13:47] LABS: Anion Gap 5 (5-15); BUN 25 mg/dL (7-18); BUN/Creat Ratio 19.7 RATIO (10-20); Calcium,Total 9.2 mg/dL (8.5-10.1); Chloride 106 mmol/L (98-107); Creatinine, Serum 1.27 mg/dL (0.55-1.02); EST Glomerular Filtration Rate 47 mL/min (>60); Est Glom Filt Rate - Afr Amer 57 mL/min (>60); Glucose 106 mg/dL (74-106); Potassium 4.8 mmol/L (3.5-5.1); Sodium Level 139 mmol/L (136-145)
== END | disposition home or self-care (01) ==
LOC: LAB 12:38
PROVIDERS: PCP Family Medicine; Referring Provider Physician Assistant Medical; Visit Provider Physician Assistant Medical
DX: I42.8 Other cardiomyopathies (principal); I48.3 Typical atrial flutter; N18.9 Chronic kidney disease, unspecified
CPT/HCPCS: 36415; 80048

== ENCOUNTER 2022-07-18 09:20 | Outpatient (CLI) | payer MEDICAID, SELFPAY ==
[2022-07-18 09:40] LABS: Erythrocyte Sedimentation Rate 19 mm/hr (0-30)
[2022-07-18 09:41] LABS: Absolute Lymphocyte Count 0.94 X10^3/uL (0.83-4.51); Absolute Neutrophil Count 4.3 X10^3/uL (2.0-7.7); Basophil# 0.07 X10^3/uL; Basophil% 1.1 % (0-1); Eosinophil# 0.29 X10^3/uL; Eosinophils% 4.6 % (0-5); Hematocrit 42.4 % (37-47); Hemoglobin 13.6 g/dL (12.0-15.0); Lymphocyte # 0.94 X10^3/ul (0.83-4.51); Mean Corp Hgb Conc 32.1 g/dL (32-36); Mean Corpuscular Hgb 30.5 pg (27.0-32.0); Mean Corpuscular Volume 95.1 fL (81-99); Mean Platelet Vol. 9.5 fl (6.2-12.0); Monocyte# 0.62 X10^3/uL; Monocyte% 9.9 % (0-10); NRBC Flagged by Analyzer 0 % (0-5); Neutrophil # 4.32 X10^3/uL (2.7-7.7); Neutrophil % 68.9 % (47-70); Platelet Count 168 K/mm3 (150-450); RBC Distribution Width CV 13.5 % (11.6-14.6); RBC Distribution Width SD 47.7 fl (35.1-43.9); Red Blood Count 4.46 M/mm3 (4.2-5.4); White Blood Count 6.3 K/mm3 (4.4-11.0)
[2022-07-18 09:55] LABS: International Normalized Ratio 1.2; Prothrombin Time (Protime)PT. 15.4 SECONDS (11.7-14.9)
[2022-07-18 10:07] LABS: ALB/GLOB Ratio 1.1 RATIO (0.9-2.4); AST(SGOT) 11 U/L (15-37); Alanine Aminotransfer ALT/SGPT 21 U/L (13-56); Albumin, Serum 3.9 g/dL (3.2-5.0); Alkaline Phosphatase 67 U/L (45-117); Anion Gap 6 (5-15); BUN 29 mg/dL (7-18); BUN/Creat Ratio 20.7 RATIO (10-20); CRP < 2.90 mg/L (0.0-3.0); Calcium,Total 9.5 mg/dL (8.5-10.1); Chloride 107 mmol/L (98-107); EST Glomerular Filtration Rate 42 mL/min (>60); Est Glom Filt Rate - Afr Amer 51 mL/min (>60); Ferritin 22 ng/mL (8-252); GGTP 50 U/L (5-55); Globulin 3.7 g/dL (2.2-4.2); Glucose 110 mg/dL (74-106); LDH 150 U/L (84-246); Potassium 4.3 mmol/L (3.5-5.1); Protein, Total 7.6 g/dL (6.4-8.2); Sodium Level 141 mmol/L (136-145)
[2022-07-22 10:29] LABS: Copper, Serum or Plasma 107 ug/dL (80-158); Haptoglobin 114 mg/dL (33-346)
== END 2022-07-18 23:59 | disposition home or self-care (01) ==
PROVIDERS: PCP Family Medicine; Referring Provider Nurse Practitioner Adult Health; Visit Provider Nurse Practitioner Adult Health
DX: K74.00 Hepatic fibrosis, unspecified (principal); I42.8 Other cardiomyopathies
CPT/HCPCS: 36415; 80053; 82140; 82525; 82728; 82977; 83010; 83615; 85025; 85610; 85652; 86140

== ENCOUNTER → 2022-08-09 | Outpatient (CLI) | payer MEDICAID, SELFPAY ==
--- NOTE | 2022-08-09 08:03 | US_ITS ---
STUDY: ABDOMINAL ULTRASOUND - RIGHT UPPER QUADRANT REASON FOR VISIT: Female, 51 years old liver cirrhosis. TECHNIQUE: Ultrasound evaluation of the right upper quadrant was performed with real-time and static dailey-scale imaging. TECHNICAL QUALITY: Adequate. COMPARISON: Comparison is made with prior study dated 01/22/2022. FINDINGS: Liver: The liver is enlarged and measures 19.6 cm. There is increased echogenicity consistent with fatty infiltration. The bile ducts are within normal limits. There is hepatic color flow. The direction of portal flow is hepatopetal. There is no demonstrated mass lesion. Gallbladder: The patient is status post cholecystectomy. Common Bile Duct (C.B.D.): The common bile duct measures 7 mm. Pancreas: Normal size of the head, body and tail of the pancreas. There is normal echogenicity of the pancreas. There is no demonstrated pancreatic mass or cyst. Right Kidney: Normal size of the right kidney. The right kidney measures 9.9 cm x 5.3 cm by 5.2 cm. Normal renal cortex. The right cortex measures 1.4 cm. There is no demonstrated renal mass or cyst. There is no right hydronephrosis. US/Abdomen Limited IMPRESSION: Hepatomegaly and fatty infiltration of the liver. Electronically Signed: George Kaplan MD at 10:36 EST ,
--- NOTE | 2022-08-09 08:03 | US_ITS ---
STUDY: ABDOMINAL ULTRASOUND - ELASTOGRAPHY REASON FOR VISIT: Female, 51 years old. Fatty infiltration of the liver. TECHNIQUE: Liver stiffness measurements were obtained on a SkuServe RS 85 ultrasound machine using a CA 1-7 probe following the SRU guidelines. 3 measurements were obtained using a 2-D-SWE method. The IQR/M was 20% suggesting a quality data set. TECHNICAL QUALITY: Adequate. COMPARISON: Comparison is made with prior study done earlier today. FINDINGS: Liver: Hepatomegaly and fatty infiltration of the liver. Median liver stiffness measured 7 kPa. US/Elastography Parenchyma/Organ IMPRESSION: Liver stiffness measures 7 kPa compatible with F2-F3 (Mild to moderate liver fibrosis) Metavir score. Electronically Signed: George Kaplan MD at 10:38 EST ,
== END | disposition home or self-care (01) ==
LOC: US 08:02
PROVIDERS: PCP Family Medicine; Referring Provider Nurse Practitioner Adult Health; Visit Provider Nurse Practitioner Adult Health
DX: K74.00 Hepatic fibrosis, unspecified (principal); K74.60 Unspecified cirrhosis of liver; K76.0 Fatty (change of) liver, not elsewhere classified; R16.0 Hepatomegaly, not elsewhere classified
CPT/HCPCS: 76705; 76981

== ENCOUNTER → 2022-09-11 | Outpatient (CLI) | payer MEDICAID, SELFPAY ==
--- NOTE | 2022-09-11 15:35 | RAD_ITS ---
INDICATION: ANGELO EXAMINATION/TECHNIQUE: X-RAY - XR Chest 2 Views COMPARISON: May 21, 2022 FINDINGS: LINES/DEVICES: None. LUNGS: There is discoid atelectasis in the left lower lobe.. No pneumothorax. MEDIASTINUM AND CARDIOVASCULAR STRUCTURES: Cardiac silhouette is enlarged. Central airways and mediastinal contour are unremarkable. BONES AND SOFT TISSUES: Degenerative changes of the shoulders. RAD/Chest PA and Lateral IMPRESSION: Discoid atelectasis in the left lower lobe. Electronically Signed: Edinson Smith MD at 16:50 EST ,
[2022-09-11 17:10] LABS: Absolute Lymphocyte Count 0.58 X10^3/uL (0.83-4.51); Absolute Neutrophil Count 5.5 X10^3/uL (2.0-7.7); Basophil# 0.04 X10^3/uL; Basophil% 0.6 % (0-1); Eosinophil# 0.27 X10^3/uL; Eosinophils% 3.8 % (0-5); Hematocrit 42.7 % (37-47); Hemoglobin 13.4 g/dL (12.0-15.0); Lymphocyte # 0.58 X10^3/ul (0.83-4.51); Lymphocyte % 8.2 % (19-41); Mean Corp Hgb Conc 31.4 g/dL (32-36); Mean Corpuscular Hgb 30.5 pg (27.0-32.0); Mean Corpuscular Volume 97.3 fL (81-99); Mean Platelet Vol. 9.6 fl (6.2-12.0); Monocyte% 8.5 % (0-10); NRBC Flagged by Analyzer 0 % (0-5); Neutrophil % 77.8 % (47-70); POSITIVE DIFFERENTIAL YES; Platelet Count 140 K/mm3 (150-450); RBC Distribution Width CV 15.8 % (11.6-14.6); RBC Distribution Width SD 56.1 fl (35.1-43.9); Red Blood Count 4.39 M/mm3 (4.2-5.4); White Blood Count 7.1 K/mm3 (4.4-11.0)
[2022-09-11 17:39] LABS: Differential Indicated SCAN CRITERIA MET
[2022-09-11 17:40] LABS: Differential Comment SCANNED
[2022-09-11 17:45] LABS: BNP,B-Type NATRIURETIC PEPTIDE 313.6 pg/mL (0-100)
[2022-09-11 17:48] LABS: Anion Gap 6 (5-15); BUN 25 mg/dL (7-18); BUN/Creat Ratio 18.2 RATIO (10-20); Calcium,Total 8.9 mg/dL (8.5-10.1); Chloride 107 mmol/L (98-107); Creatinine, Serum 1.37 mg/dL (0.55-1.02); EST Glomerular Filtration Rate 43 mL/min (>60); Est Glom Filt Rate - Afr Amer 52 mL/min (>60); Glucose 106 mg/dL (74-106); Potassium 4.6 mmol/L (3.5-5.1); Sodium Level 139 mmol/L (136-145)
== END | disposition home or self-care (01) ==
PROVIDERS: PCP Family Medicine; Referring Provider Physician Assistant Medical; Visit Provider Physician Assistant Medical
DX: M19.011 Primary osteoarthritis, right shoulder (principal); J98.11 Atelectasis; M19.012 Primary osteoarthritis, left shoulder
CPT/HCPCS: 36415; 71046; 85025; 83880; 80048

== ENCOUNTER 2022-09-13 11:47 | Inpatient (IN) | payer MEDICAID, SELFPAY ==
[2022-09-13] VITALS (14 sets, daily range): BP systolic 116–147; BP diastolic 52–84; PULSE 57–88; RESP 16–23; TEMP 36–37.2; O2SAT 70–99; BMI 39.1; BMI 39.3
--- NOTE | 2022-09-13 13:15 | EKG12_ITS ---
Test Reason : SOB Blood Pressure : / mmHG Vent. Rate : 066 BPM Atrial Rate : 066 BPM P-R Int : 192 ms QRS Dur : 102 ms QT Int : 418 ms P-R-T Axes : 054 085 019 degrees QTc Int : 438 ms Normal sinus rhythm Normal ECG Confirmed by PHAN DIAZ, NIKOLAS ([id number]), editor magazine SHERYL PRAJAPATI ([id number]) on 09/16/2022 11:47:01 AM Referred By: LUISA/VIN Confirmed By:NIKOLAS CHISHOLM MD
--- NOTE | 2022-09-13 13:15 | EDS_ITS ---
HPI History of Present Illness Chief Complaint: Shortness of Breath Narrative Narrative: 51-year-old female presenting with shortness of breath. She states that she was diagnosed in bronchitis and she has had some chest discomfort in her chest since then. She describes it as chest heaviness. She has been a little bit short of breath but today began worsening when she woke up this morning. She states she feels like she cannot catch her breath so she pulled out her pulse ox and noted that her pulse ox was low. She uses CPAP at night but she does not wear oxygen throughout the day typically. She denies any fever. She states that with her symptoms recently she did follow-up with cardiology on 09/11/2022. She states she had lab work drawn and imaging done then and was told to start Lasix due to the water on her lungs. She does not recall how much Lasix she was told to take . She states she is taken Lasix in the past but she does not take it chronically. She states she was taken off of the Lasix because of her kidneys. Patient does have history of DVT and paroxysmal A. fib and is on Eliquis. [facility] Medical History Alcohol abuse Allergic rhinitis Anemia Anxiety Atrial fibrillation Atrial flutter Bilateral knee pain Chronic kidney disease (CKD) COPD (chronic obstructive pulmonary disease) CPAP (continuous positive airway pressure) dependence Depression DVT (deep venous thrombosis) Esophageal spasm Essential (primary) hypertension Extremity cyanosis Fatty liver Former smoker Former smoker GERD (gastroesophageal reflux disease) Heart failure with preserved ejection fraction HFrEF (heart failure with reduced ejection fraction) Hiatal hernia History of back problems History of edema History of pain when walking HLD (hyperlipidemia) HTN (hypertension), benign Hyperthyroidism Hypomagnesemia Iron deficiency Migraines Morbid obesity with BMI of 40.0-44.9, adult Non-ischemic cardiomyopathy Obstructive sleep apnea Osteoarthritis PAF (paroxysmal atrial fibrillation) Panic attack Paroxysmal atrial fibrillation Patellofemoral syndrome of both knees PFO (patent foramen ovale) Pulmonary embolism (04/26/16) Secondary pulmonary arterial hypertension Tobacco user Tubular adenoma of colon Home Medications rosuvastatin 5 mg tablet (Crestor) 10 mg PO DAILY cholesterol 06/18/19 [History Last Taken 09/12/22] acetaminophen 500 mg tablet 1,000 mg PO DAILY PRN PRN Pain 1-10 Or Fever 08/01/20 [History Last Taken 09/13/22] cholecalciferol (vitamin D3) 10 mcg (400 unit) capsule 4,000 unit PO DAILY supplement 08/01/20 [History Last Taken 09/12/22] folic acid 1 mg tablet 1 mg PO DAILY supplement 08/01/20 [History Last Taken 09/12/22] montelukast 10 mg tablet (Singulair) 10 mg PO DAILY asthma 12/28/20 [History Last Taken 05/20/22 21:00] multivitamin 1 tab PO DAILY DAILY 12/28/20 [History Last Taken 09/12/22] sildenafil (pulm.hypertension) 20 mg tablet 20 mg PO TID pulmonary HTN 05/01/21 [History Last Taken 09/12/22] fluticasone fur. 100 mcg-umeclid 62.5 mcg-vilant 25 mcg inhalat.powder (Trelegy Ellipta) 1 inh inhalation DAILY COPD 01/20/22 [History Last Taken 09/12/22] trazodone 100 mg tablet 100 mg PO QHS PRN PRN Insomnia 14 days #14 tabs 01/24/22 [Rx Last Taken 3 Days Ago ~09/10/22] ursodiol 300 mg capsule 300 mg PO BID #180 caps 02/04/22 [Rx Last Taken 09/12/22] bupropion HCl 300 mg 24 hr tablet, extended release 300 mg PO DAILY mood 05/16/22 [History Last Taken 09/12/22] apixaban 5 mg tablet (Eliquis) 5 mg PO BID blood thinner #60 tabs 05/20/22 [Rx Last Taken 09/12/22] flecainide 100 mg tablet 100 mg PO BID #60 tabs 06/11/22 [Rx Last Taken 09/12/22] furosemide 40 mg tablet 40 mg PO DAILY PRN edema #30 tabs 06/11/22 [Rx Last Taken 09/12/22] celecoxib 100 mg capsule (Celebrex) 100 mg PO DAILY 07/18/22 [History Last Taken 09/12/22] empagliflozin 10 mg tablet (Jardiance) 10 mg PO DAILY #90 tabs 07/18/22 [Rx Last Taken 09/12/22] metoprolol tartrate 50 mg tablet 25 mg PO Q12 #60 tabs 07/18/22 [Rx Last Taken 09/12/22] pantoprazole 40 mg tablet,delayed release 40 mg PO QAM #30 tabs 08/13/22 [Rx Last Taken 09/12/22] amlodipine 5 mg tablet (Norvasc) 5 mg PO DAILY #30 tabs 09/11/22 [Rx Last Taken 09/13/22] Allergy/AdvReac Type Severity Reaction Status Date / Time doxycycline Allergy Hives Verified 09/13/22 11:52 hydrocodone [From Vicodin] AdvReac Itching Verified 09/13/22 11:52 Family History Mother Breast cancer Cancer lung cancer Father Cancer lung cancer Hypertension High cholesterol Surgical History H/O repair of rotator cuff History of History of cardiac catheterization History of cardioversion (05/23/22) History of cholecystectomy History of hysterectomy History of nasal surgery History of repair of hiatal hernia (12/2020) History of transesophageal echocardiography (MABEL) (05/23/22) Social History Smoking Status: Former smoker quit date: 01/11/22 alcohol intake: current alcohol intake frequency: 3 or more drinks per day Alcohol type: hard liquor substance use type: does not use ROS ROS ED Constitutional Constitutional ED: Denies chills or fever(s) Eyes Eyes: Denies change in vision or diplopia ENT ENT ED: Denies rhinorrhea or sore throat Cardiovascular Cardiovascular: Reports chest pain Respiratory/Chest Respiratory/Chest: Reports cough, dyspnea and dyspnea on exertion Gastrointestinal Gastrointestinal: Reports abdominal pain; Denies nausea or vomiting Musculoskeletal Musculoskeletal: Denies back pain or myalgias Integumentary Denies abscess or Abrasions Neurologic Neurologic: Reports headache(s); Denies paresthesias or weakness Psychiatric Psychiatric: Denies anxiety or depression EXAM Physical Exam Const Vital Signs: 09/13/22 11:50 09/13/22 11:56 09/13/22 12:05 Temperature 96.8 F L Temperature Source Temporal Pulse Rate 84 Respiratory Rate 22 H Respiratory Effort Short of Breath Labored Respiratory Pattern Tachypnea Blood Pressure 147/84 H Blood Pressure Mean 105 Pulse Ox 70 88 Oxygen Delivery Method Room Air Nasal Cannula Oxygen Flow Rate (L/min) 6 09/13/22 12:14 09/13/22 12:14 09/13/22 13:12 Temperature Temperature Source Pulse Rate 67 Respiratory Rate 16 20 H Respiratory Effort Respiratory Pattern Blood Pressure 116/79 Blood Pressure Mean 91 Pulse Ox 90 90 94 Oxygen Delivery Method Nasal Cannula Nasal Cannula Oxygen Flow Rate (L/min) 7 7 09/13/22 15:41 09/13/22 15:41 09/13/22 16:28 Temperature Temperature Source Pulse Rate 61 62 Respiratory Rate 23 H 20 H Respiratory Effort Respiratory Pattern Blood Pressure Blood Pressure Mean Pulse Ox 96 Oxygen Delivery Method High Flow Oxygen Flow Rate (L/min) 9 09/13/22 16:38 09/13/22 16:39 Temperature Temperature Source Pulse Rate Respiratory Rate Respiratory Effort Respiratory Pattern Blood Pressure Blood Pressure Mean Pulse Ox 98 97 Oxygen Delivery Method Nasal Cannula High Flow Oxygen Flow Rate (L/min) 8 7 Positive well nourished HEENT Reports dry mucous membranes atraumatic Mouth ED: Yes dry mucous membranes Mouth: dry mucous membranes Eyes PERRL and EOMs intact bilaterally General Eye ED: Negative for pale conjunctiva or scleral icterus Neck no lymphadenopathy and supple Resp Auscultation: diminished lung sounds bilateral lower Cardio regular rate and regular rhythm GI non-tender Extremity normal to inspection Neuro oriented x3 and CN's II-XII intact bilaterally Sensorium / Orientation: alert, oriented to person, oriented to place and oriented to time Motor Exam: strength 5/5 throughout Psych mental status grossly normal Skin no wounds and skin turgor normal MDM MDM MDM Narrative Medical decision making narrative: 51-year-old female presenting with shortness of breath. She significantly hypoxic on arrival at 70%. She reports that he is having chest heaviness since mid August. She was told she had bronchitis. She also followed up with Dr. Benavides's office and had a recent x-ray which showed concern for volume overload and she was started on Lasix which she has been taking. Patient is anticoagulated on Eliquis so I have low clinical suspicion for PE causing her pain and dyspnea. Patient reports no fevers, chills, body aches. She is on her home CPAP at night but does not wear oxygen at home. CBC was obtained to assess for elevated white blood cell count and hemoglobin levels. This shows elevated blood cell count of 15.9. Hemoglobin normal at 13.7. Platelets are low at 148. They were 140 on her last presentation. BMP was obtained to assess for renal function and her creatinine is acutely elevated at 1.97. GFR is down to 28. EKG was obtained and on my interpretation this is a normal sinus rhythm with a ventricular rate of 66 bpm. There are T wave inversions noted in V1, V2, lead III. As were noticed on previous EKG in June 2022. BNP elevated at 328.4. Initial high-sensitivity troponin was 9 and her 2-hour troponin is 8. Chest x- ray looks consistent with CHF on my interpretation with mild pulmonary vascular congestion. The radiologist interpreted this and agrees. No evidence of pneumonia on the chest x-ray. Rapid COVID and rapid influenza were negative. Given patient has a history of COPD she was given breathing treatments and does look like she is improving. She is not in any respiratory distress. She speaking in full sentences. She is currently on 7 L nasal cannula has been weaned down from 9. I did obtain a noncontrast CT scan to assess for pneumonia and this shows a small pericardial effusion and mild bilateral subsegmental atelectasis versus pneumonitis. After speaking with the hospitalist we opted to start Levaquin. She was also given 40 mg of Lasix IV due to her history of CHF on her elevated BNP. Impression: 1. Chest pain 2. Hypoxic respiratory failure 3. Acute kidney injury 4. Thrombocytopenia 5 Pneumonitis 6. Pericardial effusion 7. CHF exacerbation 8. History of COPD Lab Data Attestation: I reviewed the patient's lab results. Labs: Laboratory Results - last 24 hr 09/13/22 09/13/22 09/13/22 12:10 12:10 12:10 WBC 15.9 H RBC 4.50 Hgb 13.7 Hct 43.3 MCV 96.2 MCH 30.4 MCHC 31.6 L RDW Std Deviation 55.0 H RDW Coeff of [place] 15.9 H Plt Count 148 L MPV 9.7 Immature Gran % (Auto) 0.600 Neut % (Auto) 93.4 H Lymph % (Auto) 1.8 L [place] % (Auto) 3.0 Eos % (Auto) 0.9 Baso % (Auto) 0.3 Absolute Neuts (auto) 14.8 H Absolute Lymphs (auto) 0.28 L Nucleated RBC % 0 Sodium 139 Potassium 4.8 Chloride 107 Carbon Dioxide 24.0 Anion Gap 8 BUN 38 H Creatinine 1.97 H Estim Creat Clear Calc 32.12 Est GFR (MDRD) Af Amer 34 L Est GFR (MDRD) Non-Af 28 L BUN/Creatinine Ratio 19.3 Glucose 101 Calcium 8.7 Troponin I High Sens 9 B-Natriuretic Peptide 328.4 H 09/13/22 15:30 WBC RBC Hgb Hct MCV MCH MCHC RDW Std Deviation RDW Coeff of [place] Plt Count MPV Immature Gran % (Auto) Neut % (Auto) Lymph % (Auto) [place] % (Auto) Eos % (Auto) Baso % (Auto) Absolute Neuts (auto) Absolute Lymphs (auto) Nucleated RBC % Sodium Potassium Chloride Carbon Dioxide Anion Gap BUN Creatinine Estim Creat Clear Calc Est GFR (MDRD) Af Amer Est GFR (MDRD) Non-Af BUN/Creatinine Ratio Glucose Calcium Troponin I High Sens 8 B-Natriuretic Peptide Radiography Diagnostic Testing: Clinical Impression(s) from Imaging Studies Chest X-Ray 09/13/22 13:35 IMPRESSION: Mild degree of vascular congestion with mild increased markings at the lung bases and blunting of the left costophrenic angle. Electronically Signed: George Kaplan MD at 13:59 EST , Chest CT 09/13/22 15:08 IMPRESSION: 1. Mild bilateral subsegmental atelectasis or pneumonitis. 2. Mild emphysema with a thick left upper lobe scar. 3. Suspect pulmonary arterial hypertension. 4. Small pericardial effusion. Electronically Signed: Manuel Ley MD at 16:34 EST , Discharge Plan Triage Chief Complaint: Shortness of Breath ED Provider: Jason Reardon Dx/Rx/DC Orders Primary Care Provider: Didier Watkins
[2022-09-13 13:29] LABS: Absolute Lymphocyte Count 0.28 X10^3/uL (0.83-4.51); Absolute Neutrophil Count 14.8 X10^3/uL (2.0-7.7); Basophil# 0.05 X10^3/uL; Basophil% 0.3 % (0-1); Eosinophil# 0.15 X10^3/uL; Eosinophils% 0.9 % (0-5); Hematocrit 43.3 % (37-47); Hemoglobin 13.7 g/dL (12.0-15.0); Lymphocyte # 0.28 X10^3/ul (0.83-4.51); Lymphocyte % 1.8 % (19-41); Mean Corp Hgb Conc 31.6 g/dL (32-36); Mean Corpuscular Hgb 30.4 pg (27.0-32.0); Mean Corpuscular Volume 96.2 fL (81-99); Mean Platelet Vol. 9.7 fl (6.2-12.0); Monocyte# 0.47 X10^3/uL; NRBC Flagged by Analyzer 0 % (0-5); Neutrophil # 14.82 X10^3/uL (2.7-7.7); Neutrophil % 93.4 % (47-70); POSITIVE DIFFERENTIAL YES; Platelet Count 148 K/mm3 (150-450); RBC Distribution Width CV 15.9 % (11.6-14.6); White Blood Count 15.9 K/mm3 (4.4-11.0)
[2022-09-13 13:30] LABS: Differential Indicated SCAN CRITERIA MET
--- NOTE | 2022-09-13 13:35 | RAD_ITS ---
STUDY: X-RAY CHEST REASON FOR EXAM: Female, 51 years old. Chest pain and shortness of breath. Decrease pulse oximetry. TECHNIQUE: Single AP portable view of the chest. COMPARISON: Comparison is made with prior study dated 09/11/2022. FINDINGS: EKG electrodes are seen. Mild degree of vascular congestion. Mild increased markings at the lung bases suggestive of atelectasis. There is blunting of the left costophrenic angle. There is mild cardiac enlargement. Normal mediastinum and mayra. Normal visualized pulmonary arteries. There is atherosclerotic tortuosity of the aortic arch and descending thoracic aorta. Normal visualized thoracic spine. Normal visualized ribs, clavicles, and shoulders. There is no demonstrated abnormality of the visualized soft tissue structures of the upper abdomen. RAD/Chest 1 View (Portable) IMPRESSION: Mild degree of vascular congestion with mild increased markings at the lung bases and blunting of the left costophrenic angle. Electronically Signed: George Kaplan MD at 13:59 EST ,
[2022-09-13 13:46] LABS: Anion Gap 8 (5-15); BUN 38 mg/dL (7-18); BUN/Creat Ratio 19.3 RATIO (10-20); Calcium,Total 8.7 mg/dL (8.5-10.1); Chloride 107 mmol/L (98-107); Creatinine, Serum 1.97 mg/dL (0.55-1.02); EST Glomerular Filtration Rate 28 mL/min (>60); Est Glom Filt Rate - Afr Amer 34 mL/min (>60); Estimated Creatinine Clearance 32.12 ml/min; Glucose 101 mg/dL (74-106); Potassium 4.8 mmol/L (3.5-5.1); Sodium Level 139 mmol/L (136-145); Troponin-I HS (w/2H Reflex) 9 pg/mL (3.0-54.0)
[2022-09-13 13:47] LABS: BNP,B-Type NATRIURETIC PEPTIDE 328.4 pg/mL (0-100)
[2022-09-13] MEDS: Acetaminophen 500 MG Tablet 1000 MG PO (15:06)
--- NOTE | 2022-09-13 15:08 | CT_ITS ---
INDICATION: hypoxic respiratory failure EXAMINATION: CT CHEST WITHOUT CONTRAST - CT Chest W/O Contrast Injection TECHNIQUE: Helically acquired images were obtained of the chest. A radiation dose optimization technique was used for this scan. IV Contrast dosage and agent: None. COMPARISON: 12/28/2020 FINDINGS: LUNGS, PLEURA AND LARGE AIRWAYS: Mild emphysema. Mild bilateral apical scarring. Bilateral patchy groundglass opacities consistent with subsegmental atelectasis or pneumonitis. Thick left upper lobe scar. No pleural effusion or thickening. No pneumothorax. Enlarged central pulmonary arteries suggestive of pulmonary arterial hypertension. THYROID: No thyroid lesions. HEART AND PERICARDIUM: Heart size is normal. Small pericardial effusion. CORONARY ARTERIES: Coronary artery calcification is seen. VESSELS: Thoracic aorta is not dilated. MEDIASTINUM AND JAIME: No mediastinal or hilar adenopathy. Esophagus is unremarkable. No hiatal hernia. UPPER ABDOMEN: Sutures of the gastroesophageal junction. BONES: No suspicious lytic or blastic abnormality. CT/Chest without Contrast IMPRESSION: 1. Mild bilateral subsegmental atelectasis or pneumonitis. 2. Mild emphysema with a thick left upper lobe scar. 3. Suspect pulmonary arterial hypertension. 4. Small pericardial effusion. Electronically Signed: Manuel Ley MD at 16:34 EST ,
[2022-09-13 15:25] LABS: Reflex Troponin-HS? (from REC) Y
[2022-09-13] MEDS: Ipratropium/Albuterol Sulfate 3 ML AMPUL.NEB INHALATION ×3 (15:38→23:10)
[2022-09-13] MEDS: Albuterol 2.5 MG/3 ML VIAL.NEB. INHALATION (15:38)
[2022-09-13 16:25] LABS: Troponin-I HS 8 pg/mL (3.0-54.0)
[2022-09-13] MEDS: levoFLOXacin IV 500 MG/100 ML BAG 100 MG IV (16:48)
[2022-09-13] MEDS: Furosemide 40 MG/4 ML Vial IV (16:48)
[2022-09-13 18:09] LABS: Magnesium 1.5 mg/dL (1.6-2.6); Phosphorus 3.5 mg/dL (2.5-4.9)
[2022-09-13] MEDS: 0.9% Saline Lock 10 ML Syringe IV ×2 (18:34→22:59)
[2022-09-13 18:50] LABS: Procalcitonin 0.43 ng/mL (0.00-0.09)
[2022-09-13 19:01] LABS: Troponin-I HS 11 pg/mL (3.0-54.0)
--- NOTE | 2022-09-13 19:39 | HP.PCM.HOS_ITS ---
HPI - General General Date of Admission: 09/13/22 Date of Service: 09/13/22 Chief Complaint: Dyspnea, cough, headache, worsening. HPI Narrative The patient is a 51 y/o F w/ PMHx: Morbid Obesity, Chronic anemia/Fe deficiency anemia, Hx VTE (DVT, PE), COPD, FADY on CPAP, PAF/Flutter, GERD, Depression and Anxiety w/ panic attacks, CKD stage III unclear subtype, Diastolic CHF, Former tobacco use, Hx PFO, EtOH Abuse w/ Alcoholic liver fibrosis following w/ Dr. Tuttle who presents to the [facility] ED on 09/13/22 with history of progressively worsening dyspnea with recent diagnosis of bronchitis with chest heaviness ongoing since then with intermittent pleuritic discomfort especially with cough, headache, fatigue and malaise; however, worsened upon awakening this morning with significant inability to even catch her breath and reporting a low pulse oximeter at home normally only using her CPAP at night with no recent fevers or chills but did have recent cardiology evaluation 09/11/2022 with lab work and imaging done at that time with recommendation to start Lasix secondary to concerns for overload however given ongoing decline prompted ED evaluation. She states in the past she had also been on Lasix but had been taken off secondary to renal dysfunction associated. She does report that her cough is not markedly productive but she does have occasional wheezing and feels tight as though she is not gotten over her prior acute bronchitis that was approximately 1 to 2 weeks prior. She does report mild edema and orthopnea. Work-up in the ED included T96.8 Temporally, heart rate 84, BP 147/84 initially with most recent repeat 116/79, respiratory rate 22, initially 70% on room air with improvement to 90% on 7 L nasal cannula, CBC with WC 15.9, hemoglobin 13.7, platelet 148 with left shift and lymphopenia, BMP with BUN/creat 38/1.97, troponin 9->repeat delta 9, BNP 328.4, chest x-ray with mild degree of vascular congestion with mi ld increased markings lung bases and blunting of the left costophrenic angle, EKG w/ SR without acute evidence of ischemia, COVID/influenza rapid antigens pending per ED, CT chest with mild BL segmental lateral phthisis or pneumonitis, mild emphysematous change with thick left upper lobe scar, suspected pulmonary artery hypertension, small pericardial effusion. In the ED patient administered duoneb and albuterol therapies, levaquin, lasix 40 mg IV x1. Discussed with ED physician and given significant oxygen requirements ABG as well as BiPAP ordered. [facility] Medical History Alcohol abuse Allergic rhinitis Anemia Anxiety Atrial fibrillation Atrial flutter Bilateral knee pain Chronic kidney disease (CKD) COPD (chronic obstructive pulmonary disease) CPAP (continuous positive airway pressure) dependence Depression DVT (deep venous thrombosis) Esophageal spasm Essential (primary) hypertension Extremity cyanosis Fatty liver Former smoker Former smoker GERD (gastroesophageal reflux disease) Heart failure with preserved ejection fraction HFrEF (heart failure with reduced ejection fraction) Hiatal hernia History of back problems History of edema History of pain when walking HLD (hyperlipidemia) HTN (hypertension), benign Hyperthyroidism Hypomagnesemia Iron deficiency Migraines Morbid obesity with BMI of 40.0-44.9, adult Non-ischemic cardiomyopathy Obstructive sleep apnea Osteoarthritis PAF (paroxysmal atrial fibrillation) Panic attack Paroxysmal atrial fibrillation Patellofemoral syndrome of both knees PFO (patent foramen ovale) Pulmonary embolism (04/26/16) Secondary pulmonary arterial hypertension Tobacco user Tubular adenoma of colon Home Medications rosuvastatin 5 mg tablet (Crestor) 10 mg PO DAILY cholesterol 06/18/19 [History Last Taken 09/12/22] acetaminophen 500 mg tablet 1,000 mg PO DAILY PRN PRN Pain 1-10 Or Fever 08/01/20 [History Last Taken 09/13/22] cholecalciferol (vitamin D3) 10 mcg (400 unit) capsule 4,000 unit PO DAILY supplement 08/01/20 [History Last Taken 09/12/22] folic acid 1 mg tablet 1 mg PO DAILY supplement 08/01/20 [History Last Taken 09/12/22] montelukast 10 mg tablet (Singulair) 10 mg PO DAILY asthma 12/28/20 [History Last Taken 05/20/22 21:00] multivitamin 1 tab PO DAILY DAILY 12/28/20 [History Last Taken 09/12/22] sildenafil (pulm.hypertension) 20 mg tablet 20 mg PO TID pulmonary HTN 05/01/21 [History Last Taken 09/12/22] fluticasone fur. 100 mcg-umeclid 62.5 mcg-vilant 25 mcg inhalat.powder (Trelegy Ellipta) 1 inh inhalation DAILY COPD 01/20/22 [History Last Taken 09/12/22] trazodone 100 mg tablet 100 mg PO QHS PRN PRN Insomnia 14 days #14 tabs 01/24/22 [Rx Last Taken 3 Days Ago ~09/10/22] ursodiol 300 mg capsule 300 mg PO BID #180 caps 02/04/22 [Rx Last Taken 09/12/22] bupropion HCl 300 mg 24 hr tablet, extended release 300 mg PO DAILY mood 05/16/22 [History Last Taken 09/12/22] apixaban 5 mg tablet (Eliquis) 5 mg PO BID blood thinner #60 tabs 05/20/22 [Rx Last Taken 09/12/22] flecainide 100 mg tablet 100 mg PO BID #60 tabs 06/11/22 [Rx Last Taken 09/12/22] furosemide 40 mg tablet 40 mg PO DAILY PRN edema #30 tabs 06/11/22 [Rx Last Taken 09/12/22] celecoxib 100 mg capsule (Celebrex) 100 mg PO DAILY 07/18/22 [History Last Taken 09/12/22] empagliflozin 10 mg tablet (Jardiance) 10 mg PO DAILY #90 tabs 07/18/22 [Rx Last Taken 09/12/22] metoprolol tartrate 50 mg tablet 25 mg PO Q12 #60 tabs 07/18/22 [Rx Last Taken 09/12/22] pantoprazole 40 mg tablet,delayed release 40 mg PO QAM #30 tabs 08/13/22 [Rx Last Taken 09/12/22] amlodipine 5 mg tablet (Norvasc) 5 mg PO DAILY #30 tabs 09/11/22 [Rx Last Taken 09/13/22] Allergy/AdvReac Type Severity Reaction Status Date / Time doxycycline Allergy Hives Verified 09/13/22 11:52 hydrocodone [From Vicodin] AdvReac Itching Verified 09/13/22 11:52 Family History Mother Breast cancer Cancer lung cancer Father Cancer lung cancer Hypertension High cholesterol Surgical History H/O repair of rotator cuff History of History of cardiac catheterization History of cardioversion (05/23/22) History of cholecystectomy History of hysterectomy History of nasal surgery History of repair of hiatal hernia (12/2020) History of transesophageal echocardiography (MABEL) (05/23/22) Social History (Updated 09/13/22 @ 19:[address] Jennifer Christopher MD) household members: spouse Smoking Status: Former smoker quit date: 01/11/22 alcohol intake: current alcohol intake frequency: 3 or more drinks per day Alcohol type: hard liquor details: Started drinking again recently, has been intermittent. Hard liquor drinks. substance use type: does not use ROS ROS Narrative Admission Review of Systems: CONSTITUTIONAL: No weight loss, fever, chills, + weakness or fatigue. HEENT: + Congestion. Eyes: No visual loss, blurred vision, double vision or yellow sclerae. Ears, Nose, Throat: No hearing loss, sneezing, sore throat. SKIN: No rash or itching, lesions, wounds. CARDIOVASCULAR: + Pleuritic chest pain, edema, orthopnea, No syncopal events. RESPIRATORY: + Shortness of breath, cough without marked sputum, wheezing, No hemoptysis. GASTROINTESTINAL: + anorexia, N0 nausea, vomiting or diarrhea, abdominal pain, melena, BRBPR. GENITOURINARY: No dysuria, frequency, urgency or retention. NEUROLOGICAL: + headache, No dizziness, syncope, paralysis, ataxia, numbness or tingling in the extremities, focal weakness, change in bowel or bladder control, seizure. MUSCULOSKELETAL: + muscle, back pain, joint pain or stiffness. HEMATOLOGIC: + easy bleeding or bruising. LYMPHATICS: No enlarged nodes. No history of splenectomy. PSYCHIATRIC: + history of depression or anxiety. ENDOCRINOLOGIC: No reports of sweating, cold or heat intolerance. No polyuria or polydipsia. ALLERGIES: + history of hives, rhinitis. Vital Signs Vital Signs Vital Signs: 09/13/22 11:50 09/13/22 11:56 09/13/22 12:05 Temperature 96.8 F L Temperature Source Temporal Pulse Rate 84 Respiratory Rate 22 H Respiratory Effort Short of Breath Labored Respiratory Pattern Tachypnea Blood Pressure 147/84 H Blood Pressure Mean 105 Pulse Ox 70 88 Oxygen Delivery Method Room Air Nasal Cannula Oxygen Flow Rate (L/min) 6 09/13/22 12:14 09/13/22 12:14 09/13/22 13:12 Temperature Temperature Source Pulse Rate 67 Respiratory Rate 16 20 H Respiratory Effort Respiratory Pattern Blood Pressure 116/79 Blood Pressure Mean 91 Pulse Ox 90 90 94 Oxygen Delivery Method Nasal Cannula Nasal Cannula Oxygen Flow Rate (L/min) 7 7 09/13/22 15:41 09/13/22 15:41 Temperature Temperature Source Pulse Rate 61 Respiratory Rate 23 H Respiratory Effort Respiratory Pattern Blood Pressure Blood Pressure Mean Pulse Ox 96 Oxygen Delivery Method High Flow Oxygen Flow Rate (L/min) 9 Weight Weight: 250 lb Body Mass Index (BMI) 39.1 Physical Exam Narrative Physical Examination: General: Awake, alert, oriented to self, place and recent events, seated upright in ED bed, following commands, fatigued, mild increased respiratory rate and on significantly elevated oxygen requirements although physical appearance appears better than her actual values. Skin: Normal color, normal turgor, no icterus, no cyanosis except occasional staged ecchymoses, venous stasis skin changes. HEENT: AT/NC, EOMI, PERRLA, dry MM, no carotid bruits, + JVD noted; however, thickened neck makes evaluation difficult. Lungs: Diminished throughout, greater bases, mildly increased respiratory rate, currently on high flow, occasional end expiratory wheeze but very tight, no rhonchi or marked rales. Heart: Currently regular rate and rhythm; no gallop, rub audible. Abdomen: Soft, morbidly obese, NTTP, ND, distant normal BS, no obvious evidence of HSM; however, habitus makes evaluation difficult Extremities: No cyanosis, no clubbing, bilateral pedal to distal carreno edema. Neurological: Patient awake, alert, oriented as noted cognitive function intact; pupils equally reactive to light and accommodation, cranial nerves II-XII grossly normal, moving all 4 extremities, no focal deficits, strength severely global decrease secondary to acute presentation and respiratory failure Psychiatric: Affect appears fatigued, no acute evidence of depressive or anxiety feelings. Results Lab / Micro Data Result Diagrams: 09/13/22 12:10 09/13/22 12:10 Labs: Laboratory Results - last 24 hr 09/13/22 12:10: WBC 15.9 H, RBC 4.50, Hgb 13.7, Hct 43.3, MCV 96.2, MCH 30.4, MCHC 31.6 L, RDW Std Deviation 55.0 H, RDW Coeff of Leighton 15.9 H, Plt Count 148 L, MPV 9.7, Immature Gran % (Auto) 0.600, Neut % (Auto) 93.4 H, Lymph % (Auto) 1.8 L, [place]upe % (Auto) 3.0, Eos % (Auto) 0.9, Baso % (Auto) 0.3, Absolute Neuts (auto) 14.8 H, Absolute Lymphs (auto) 0.28 L, Nucleated RBC % 0 09/13/22 12:10: Sodium 139, Potassium 4.8, Chloride 107, Carbon Dioxide 24.0, Anion Gap 8, BUN 38 H, Creatinine 1.97 H, Estim Creat Clear Calc 32.12, Est GFR (MDRD) Af Amer 34 L, Est GFR (MDRD) Non-Af 28 L, BUN/Creatinine Ratio 19.3, Glucose 101, Calcium 8.7, Troponin I High Sens 9 09/13/22 12:10: B-Natriuretic Peptide 328.4 H 09/13/22 15:30: Troponin I High Sens 8 Micro: Microbiology 09/13/22 15:10 Nasal Secretion SARS-CoV-2 & FLU Antigen (Rapid) - Final Radiology Impression Chest X-Ray 09/13/22 13:35 IMPRESSION: Mild degree of vascular congestion with mild increased markings at the lung bases and blunting of the left costophrenic angle. Electronically Signed: George Kaplan MD at 13:59 EST Reading Location ID and State: [address] [place] [address] , Service support , Assessment & Plan Assessment/Plan (1) Acute respiratory failure with hypoxia: PLAN: Plan The patient is a 51 y/o F w/ PMHx: Morbid Obesity, Chronic anemia/Fe deficiency anemia, Hx VTE (DVT, PE), COPD, FADY on CPAP, PAF/Flutter, GERD, Depression and Anxiety w/ panic attacks, CKD stage III unclear subtype, Diastolic CHF, Former tobacco use, Hx PFO, EtOH Abuse w/ Alcoholic liver fibrosis following w/ Friend who presents to the [facility] ED on 09/13/22 with history of progressively worsening dyspnea with recent diagnosis of bronchitis with chest heaviness ongoing since then with intermittent pleuritic discomfort especially with cough, headache, fatigue and malaise; however, worsened upon awakening this morning with significant inability to even catch her breath and reporting a low pulse oximeter at home. #1. Acute Hypoxic Respiratory Failure secondary to Possibly component Acute Decompensated Diastolic CHF and Acute on Chronic COPD Exacerbation/Acute bronchitis: Will admit to PCU, will initiate on BIPAP given severity of ED presentation and oxygen requirements, will obtain ABG, will maintain on cardiac telemetry, obtain cardiac enzyme series, obtain serial EKGs, continue IV lasix diuresis, monitor I/Os, maintain on intake restriction, continue medical ther apy, obtain TSH and magnesium level. Most recent ECHO noted MABEL 05/23/22 w/ normal LV size, EF 40%, mild to moderate global hypokinesis LV, moderate global RV systolic dysfunction, moderately dilated RV, LA moderately enlarged, patent foramen ovale, small pericardial effusion at that time. Will maintain on duoneb ATC, PRN albuterol, IV methylprednisolone, continue IV levaquin with renally dosing pending procalcitonin, sputum, urine antigens, full respiratory viral panel, HOB, IS parameters, will request sputum Cx, full respiratory viral panel and COVID PCR to be cautious as well as procalcitonin and if notably elevated will add abx therapy. If patient clinically not improving or slow to improve, low threshold to involve pulmonary medicine. #2. Acute Renal Insufficiency on Chronic Kidney Disease Stage III, unclear subtype: Likely related with acute presentation, admission BUN/Cr 38/1.97, baseline renal function primarily 1.2-1.5, repeat BMP in AM. #3. Thrombocytopenia, mild: Admission Plts 148, prior to 09/11/22 patient had normal values, does have history of EtOH abuse, certainly could be associate with acute infection, continued evaluation as noted #1, will continue to trend. #4. Alcoholic liver fibrosis: Patient following outpatient with gastroenterology, most recent visit 08/13/2022 with reported history of being on ursodiol 300 mg twice daily and vitamin e-800 IU daily x6 months, tolerated medication with recent repeat elastography with improvement with liver stiffness going from moderate to severe down to mild to moderate although reports still drinking alcohol. #5. EtOH Abuse: Patient notes intermittent alcohol intake although she reports trying to quit with last drink the evening prior (anitra mathur). Will maintain on CIWA protocol, MVI, thiamine and folic acid. We will request case management consultation. Magnesium and phosphorus levels requested. Hepatic profile requested is not performed in ED. #6. Morbid Obesity: Weight loss and lifestyle changes encouraged. #7. GERD: Patient status post Valentin and Mat surgery secondary to severe hiatal hernia 01/18/2021 at [facility], continue home PPI. #8. PAF/flutter: We will continue patient home flecainide regimen as well as metoprolol and chronic apixaban regimen. #9. Hypothyroidism: Continue home levothyroxine regimen, TSH requested. #10. Hypertension: Maintain short course IV Lasix as noted, continue home metoprolol, amlodipine, not on PARAM or ARB, PRN hydralazine. #11. Hyperlipidemia: We will continue patient on statin therapy. #12. History of VTE: Patient with history DVT, PE, we will continue patient on Eliquis therapy. #13. Anxiety and depression: We will continue patient on bupropion and trazodone regimen. #14. Allergic rhinitis: We will continue patient on Singulair regimen. #15. FADY: Given current presentation will place on BiPAP, transition to CPAP nightly once amenable. #16. Former tobacco use: Encourage continued tobacco cessation. #17. DVT prophylaxis: SCDs, continue patient home chronic apixaban regimen. #18. 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 Given notable hypoxia upon presentation, discussed CODE status at length including difference between FULL code, DNR-CCA and DNR-CC status. Following discussions about the differences in these status, requested Full Code status. Advanced Care Planning Face to Face Time: 17 minutes. Admission Evaluation Time spent evaluating chart, patient history, patient evaluation, care planning and discussion with specialists: 78 minutes. Charges/Coding Visit Charges Inpatient E&M: 28044 Init Hosp L3 Procedures Hospitalists Procedures: 73043 Advncd Care Plan 30 Min
[2022-09-13] MEDS: Flecainide 100 MG Tablet PO (22:53)
[2022-09-13] MEDS: Ursodiol 250 MG Tablet PO (22:53)
[2022-09-13] MEDS: guaiFENesin 1,200 MG Tablet 1200 MG PO (22:53)
[2022-09-13] MEDS: Metoprolol Tartrate 25 MG Tablet PO (22:53)
[2022-09-13] MEDS: APIXABAN 5 MG TABLET PO (22:54)
[2022-09-13] MEDS: Atorvastatin Calcium 20 MG Tablet PO (22:54)
[2022-09-13] MEDS: SILDENAFIL CITRATE 20 MG TABLET PO (23:02)
[2022-09-13] MEDS: Acetaminophen 325 MG Tablet 650 MG PO (23:18)
[2022-09-14] VITALS (17 sets, daily range): BP systolic 124–139; BP diastolic 65–86; PULSE 55–72; RESP 16–20; TEMP 36.5–36.9; O2SAT 90–97
[2022-09-14] MEDS: LORazepam 1 MG Tablet 2 MG PO ×3 (01:27→19:46)
[2022-09-14] MEDS: Ipratropium/Albuterol Sulfate 3 ML AMPUL.NEB INHALATION ×6 (02:50→23:54)
[2022-09-14] MEDS: SILDENAFIL CITRATE 20 MG TABLET PO ×3 (05:22→21:18)
[2022-09-14] MEDS: 0.9% Saline Lock 10 ML Syringe IV ×2 (05:27→21:19)
[2022-09-14] MEDS: Acetaminophen 325 MG Tablet 650 MG PO ×3 (05:31→23:47)
[2022-09-14 06:26] LABS: Absolute Lymphocyte Count 0.28 X10^3/uL (0.83-4.51); Absolute Neutrophil Count 12.8 X10^3/uL (2.0-7.7); Basophil# 0.02 X10^3/uL; Basophil% 0.2 % (0-1); Eosinophil# 0.01 X10^3/uL; Eosinophils% 0.1 % (0-5); Hematocrit 45.1 % (37-47); Hemoglobin 14.7 g/dL (12.0-15.0); Lymphocyte # 0.28 X10^3/ul (0.83-4.51); Lymphocyte % 2.1 % (19-41); Mean Corp Hgb Conc 32.6 g/dL (32-36); Mean Corpuscular Volume 95.1 fL (81-99); Mean Platelet Vol. 9.8 fl (6.2-12.0); Monocyte# 0.09 X10^3/uL; Monocyte% 0.7 % (0-10); NRBC Flagged by Analyzer 0 % (0-5); Neutrophil # 12.81 X10^3/uL (2.7-7.7); Neutrophil % 96.2 % (47-70); POSITIVE DIFFERENTIAL YES; Platelet Count 153 K/mm3 (150-450); RBC Distribution Width CV 15.9 % (11.6-14.6); RBC Distribution Width SD 55.9 fl (35.1-43.9); Red Blood Count 4.74 M/mm3 (4.2-5.4); White Blood Count 13.3 K/mm3 (4.4-11.0)
[2022-09-14 06:38] LABS: Differential Indicated SCAN CRITERIA MET
[2022-09-14 06:48] LABS: Differential Comment SCANNED
[2022-09-14 07:19] LABS: ALB/GLOB Ratio 0.7 RATIO (0.9-2.4); AST(SGOT) 13 U/L (15-37); Alanine Aminotransfer ALT/SGPT 19 U/L (13-56); Albumin, Serum 3.4 g/dL (3.2-5.0); Alkaline Phosphatase 80 U/L (45-117); Anion Gap 14 (5-15); BUN 41 mg/dL (7-18); BUN/Creat Ratio 21.7 RATIO (10-20); Calcium,Total 8.8 mg/dL (8.5-10.1); Chloride 100 mmol/L (98-107); Cholesterol 182 mg/dL (200); Creatinine, Serum 1.89 mg/dL (0.55-1.02); EST Glomerular Filtration Rate 30 mL/min (>60); Est Glom Filt Rate - Afr Amer 36 mL/min (>60); Estimated Creatinine Clearance 33.48 ml/min; Globulin 4.8 g/dL (2.2-4.2); Glucose 154 mg/dL (74-106); High Density Lipoprotein 109 mg/dL; Potassium 3.9 mmol/L (3.5-5.1); Protein, Total 8.2 g/dL (6.4-8.2); Sodium Level 135 mmol/L (136-145); Thyroid Stim Hormone (TSH) 1.17 uIU/mL (0.358-3.74); Triglycerides 97 mg/dL; Very Low Density Lipoprotein 19 mg/dL (5-40)
[2022-09-14] MEDS: Pantoprazole Sodium 40 MG Tablet PO (08:50)
[2022-09-14] MEDS: Montelukast 10 MG Tablet PO (08:50)
[2022-09-14] MEDS: Multivitamins,Therapeutic Tablet 1 TABLET PO (08:50)
[2022-09-14] MEDS: amLODIPine 5 MG Tablet PO (08:50)
[2022-09-14] MEDS: guaiFENesin 1,200 MG Tablet 1200 MG PO ×2 (08:50→21:19)
[2022-09-14] MEDS: Ursodiol 250 MG Tablet PO ×2 (08:51→21:18)
[2022-09-14] MEDS: Furosemide 40 MG/4 ML Vial IV ×2 (08:51→18:15)
[2022-09-14] MEDS: buPROPion (XL) 300 MG TABLET.XL PO (08:52)
[2022-09-14] MEDS: Metoprolol Tartrate 25 MG Tablet PO ×2 (08:52→21:20)
[2022-09-14] MEDS: Folic Acid 1 MG Tablet PO (08:53)
[2022-09-14] MEDS: APIXABAN 5 MG TABLET PO ×2 (08:53→21:18)
[2022-09-14] MEDS: Flecainide 100 MG Tablet PO ×2 (08:54→21:19)
[2022-09-14] MEDS: Celecoxib 100 MG Capsule PO (09:03)
--- NOTE | 2022-09-14 10:00 | EKG12_ITS ---
Test Reason : AM EKG Blood Pressure : / mmHG Vent. Rate : 063 BPM Atrial Rate : 063 BPM P-R Int : 200 ms QRS Dur : 102 ms QT Int : 456 ms P-R-T Axes : 048 049 010 degrees QTc Int : 466 ms Normal sinus rhythm Poor R wave progression Confirmed by ANTONIO DIAZ, SARAI ([id number]), editor magazine SHERYL PRAJAPATI ([id number]) on 09/18/2022 9:57:43 AM Referred By: Confirmed By:SARAI ALVAREZ MD
--- NOTE | 2022-09-14 10:04 | PCM.PN.HOSP ---
Subjective Subjective Follow-up acute hypoxic respiratory failure Patient is a 51-year-old lady with multiple comorbidities admitted with progressive shortness of breath. Patient was found to be hypoxic with oxygen saturation in the 70s. An assessment of acute hypoxic respiratory failure secondary to combination of decompensated CHF as well as COPD with acute exacerbation made admitted to a monitored bed for further management Objective Data Objective Data Vital Signs: Vital Signs Temp Pulse Resp BP Pulse Ox O2 Del Method O2 Flow Rate 97.7 F L 61 18 136/86 H 93 Nasal Cannula 2 09/14/22 08:47 09/14/22 08:52 09/14/22 08:47 09/14/22 08:47 09/14/22 08:47 09/14/22 08:47 09/14/22 08:47 Oxygen Flow Rate (L/min) 2 Oxygen Delivery Method Nasal Cannula Weight: 113.4 kg Body Mass Index (BMI) 39.3 Intake & Output: Intake and Output for Last 24 Hours 09/12/22 09/13/22 09/14/22 23:59 23:59 23:59 Intake Total 1175 / 1175 300 / 300 Balance 1175 / 1175 300 / 300 Lab / Micro Data Result Diagrams: 09/14/22 05:25 09/14/22 05:25 Labs: Laboratory Results - last 24 hr 09/13/22 12:10: WBC 15.9 H, RBC 4.50, Hgb 13.7, Hct 43.3, MCV 96.2, MCH 30.4, MCHC 31.6 L, RDW Std Deviation 55.0 H, RDW Coeff of Leighton 15.9 H, Plt Count 148 L, MPV 9.7, Immature Gran % (Auto) 0.600, Neut % (Auto) 93.4 H, Lymph % (Auto) 1.8 L, White % (Auto) 3.0, Eos % (Auto) 0.9, Baso % (Auto) 0.3, Absolute Neuts (auto) 14.8 H, Absolute Lymphs (auto) 0.28 L, Nucleated RBC % 0 09/13/22 12:10: Sodium 139, Potassium 4.8, Chloride 107, Carbon Dioxide 24.0, Anion Gap 8, BUN 38 H, Creatinine 1.97 H, Estim Creat Clear Calc 32.12, Est GFR (MDRD) Af Amer 34 L, Est GFR (MDRD) Non-Af 28 L, BUN/Creatinine Ratio 19.3, Glucose 101, Calcium 8.7, Troponin I High Sens 9 09/13/22 12:10: B-Natriuretic Peptide 328.4 H 09/13/22 15:30: Troponin I High Sens 8 09/13/22 15:30: Phosphorus 3.5, Magnesium 1.5 L 09/13/22 18:05: Procalcitonin 0.43 H 09/13/22 18:05: Troponin I High Sens 11 09/13/22 18:55: COVID-19 (BATSHEVA) Not Detected 09/14/22 05:25: WBC 13.3 H, RBC 4.74, Hgb 14.7, Hct 45.1, MCV 95.1, MCH 31.0, MCHC 32.6, RDW Std Deviation 55.9 H, RDW Coeff of Leighton 15.9 H, Plt Count 153, MPV 9.8, Immature Gran % (Auto) 0.700, Neut % (Auto) 96.2 H, Lymph % (Auto) 2.1 L, White % (Auto) 0.7, Eos % (Auto) 0.1, Baso % (Auto) 0.2, Absolute Neuts (auto) 12.8 H, Absolute Lymphs (auto) 0.28 L, Nucleated RBC % 0, Differential Comment SCANNED 09/14/22 05:25: Sodium 135 L, Potassium 3.9, Chloride 100, Carbon Dioxide 21.0, Anion Gap 14, BUN 41 H, Creatinine 1.89 H, Estim Creat Clear Calc 33.48, Est GFR (MDRD) Af Amer 36 L, Est GFR (MDRD) Non-Af 30 L, BUN/Creatinine Ratio 21.7 H, Glucose 154 H, Calcium 8.8, Total Bilirubin 1.50 H, AST 13 L, ALT 19, Alkaline Phosphatase 80, Total Protein 8.2, Albumin 3.4, Globulin 4.8 H, Albumin/Globulin Ratio 0.7 L, Triglycerides 97, Cholesterol 182, LDL Cholesterol 54, VLDL Cholesterol 19, HDL Cholesterol 109, TSH 1.17 Micro: Microbiology 09/13/22 23:00 Urine, Clean Catch Streptococcus pneumoniae Antigen (M - Final 09/13/22 23:00 Urine, Clean Catch Legionella Antigen - Final 09/13/22 18:55 Mucosa - Nasopharyngeal Respiratory Panel (PCR) - Final 09/13/22 15:10 Nasal Secretion SARS-CoV-2 & FLU Antigen (Rapid) - Final Radiography Diagnostic Testing: Radiology Impression Chest X-Ray 09/13/22 13:35 IMPRESSION: Mild degree of vascular congestion with mild increased markings at the lung bases and blunting of the left costophrenic angle. Electronically Signed: George Kaplan MD at 13:59 EST , Chest CT 09/13/22 15:08 IMPRESSION: 1. Mild bilateral subsegmental atelectasis or pneumonitis. 2. Mild emphysema with a thick left upper lobe scar. 3. Suspect pulmonary arterial hypertension. 4. Small pericardial effusion. Electronically Signed: Manuel Ley MD at 16:34 EST , Physical Exam Narrative GENERAL: cooperative HEENT: Atraumatic; normocephalic EYES; Anicteric, Normal Conjunctiva NECK; supple, normal thyroid, RESPIRATORY: Diminished to auscultation CARDIOVASCULAR: Regular S1 S2, GI: soft, normoactive bowel sounds, : No Renal angle tenderness; EXTREMITIES: edema, no clubbing, MUSCULOSKELETAL: no muscle wasting NEURO: Awake; no lateralizing signs. SKIN: No Rash PSYCH; Flat affect Assessment & Plan Assessment/Plan (1) Acute respiratory failure with hypoxia: PLAN: Plan Patient is a 51-year-old lady with multiple comorbidities admitted with progressive shortness of breath. Patient was found to be hypoxic with oxygen saturation in the 70s. An assessment of acute hypoxic respiratory failure secondary to combination of decompensated CHF as well as COPD with acute exacerbation made admitted to a monitored bed for further management 1. 1. Acute hypoxic respiratory failure secondary to combination of CHF and COPD ? Patient admitted to monitored bed for treatment of underlying etiology 2. Acute on chronic congestive heart failure with reduced ejection fraction ? Patient had echo performed on 05/23/2022 which demonstrated EF of 40%. Admitted to a monitored bed managed with fluid restriction, strict input and output, daily weights, low-salt diet. Patient was placed on furosemide. Response to therapy being monitored with measures listed above as well as daily BMPs 3. COPD with acute exacerbation ? Managed with aerosol treatment as well as systemic steroid and antibiotic therapy with Levaquin. Patient is on supplemental oxygen currently being titrated to keep saturation greater than 90 4. Paroxysmal A. fib/flutter ? Patient is on flecainide and metoprolol as well as systemic anticoagulation with Eliquis.? Consult was placed to cardiology Case discussed with Dr. Benavides? plan for patient to undergo MABEL with cardioversion on 05/23/2022 5.? Pulmonary hypertension ? Patient is on Revatio did continue 6.? Chronic alcohol dependence ? Counseled on cessation 7.? Dyslipidemia -Patient is on statin therapy, continued at home dose 8.? Chronic kidney disease stage III ? Kidney function at baseline 9.? GERD ? On PPI 10.? Hypothyroidism - Patient is on levothyroxine home dose continued 11. Class II obesity with BMI of 39.2 ? Weight loss advised 12. DVT prophylaxis ? On apixaban Time spent in the patient's overall evaluation,decision-making process, review of diagnostic data, adjustment of management, discussion with other providers, nursing nursing and ancillary staff involved in patient's care documentation, 56 Minutes Charges/Coding Visit Charges Inpatient E&M: 69287 [facility] Hosp L3
--- NOTE | 2022-09-14 14:16 | CASEMGMT ---
Social Work SW met w/pt in room, reviewed prior level of care, anticipated discharge plan, and history of alcohol abuse. PCP: Dr. Watkins Specialists: Dr. Tuttle--GI, Dr. Moncada--rheumatology, Dr. Benavides--cardiology, Dr. Lugo--pulmonology, Dr. Gerber--pain management [facility] 3 grown children, LW/POA: Pt has not completed these documents, pt states would be her decision maker if needed Living arrangements/Prior level of function: Pt lives home w/ in 2 floor home, flight to bedrooms. Normally pt can get up and down the steps. Pt's son and his girlfriend live there intermittently. Pt is independent with all ADLs, drives. DME: Pt uses a CPAP, no other DME needed SNF/HHC: No history of either. Pt open to HHC should it be needed History of alcohol use: Pt explains came here in December and went through detox. She states stayed sober until May, was celebrating and decided to drink. She ended up coming in here and detoxing again. She remained sober until August, then started drinking again to celebrate that her first grandchild will be born in March. Pt recognizes that drinking impacts her health, and once she starts she cannot stop. She states she does see Lorna at [facility] and plans to continue to see her. Pt denies having any mental health issues at this time. She also does acknowledge that her drinks, smokes, and has a gambling addiction which makes it difficult at times to not drink. SW asked about additional resources, such as AA. Pt states she can find the AA meetings and does plan to follow up w/AA. She also states may go to see Lorna at [facility] more often. Otherwise, pt declines any additional resources or referrals. Plan: Home at discharge, open to HHC should it be needed. IRENE Sosa
[2022-09-14] MEDS: Atorvastatin Calcium 20 MG Tablet PO (21:19)
[2022-09-15] VITALS (12 sets, daily range): BP systolic 122–135; BP diastolic 72–79; PULSE 60–73; RESP 16–18; TEMP 36.3–36.9; O2SAT 90–97
[2022-09-15] MEDS: oxyCODONE 5 MG Tablet PO ×3 (02:16→21:21)
[2022-09-15] MEDS: Ipratropium/Albuterol Sulfate 3 ML AMPUL.NEB INHALATION ×5 (03:24→19:17)
[2022-09-15] MEDS: 0.9% Saline Lock 10 ML Syringe IV ×3 (05:12→21:22)
[2022-09-15] MEDS: SILDENAFIL CITRATE 20 MG TABLET PO ×3 (05:12→21:19)
[2022-09-15] MEDS: LORazepam 1 MG Tablet 2 MG PO ×3 (05:20→21:20)
[2022-09-15 07:32] LABS: Absolute Lymphocyte Count 0.31 X10^3/uL (0.83-4.51); Absolute Neutrophil Count 18.8 X10^3/uL (2.0-7.7); Basophil# 0.02 X10^3/uL; Basophil% 0.1 % (0-1); Hematocrit 45.2 % (37-47); Hemoglobin 14.7 g/dL (12.0-15.0); Lymphocyte # 0.31 X10^3/ul (0.83-4.51); Lymphocyte % 1.6 % (19-41); Mean Corp Hgb Conc 32.5 g/dL (32-36); Mean Corpuscular Hgb 31.3 pg (27.0-32.0); Mean Corpuscular Volume 96.2 fL (81-99); Mean Platelet Vol. 10.2 fl (6.2-12.0); Monocyte# 0.53 X10^3/uL; Monocyte% 2.7 % (0-10); NRBC Flagged by Analyzer 0 % (0-5); Neutrophil # 18.81 X10^3/uL (2.7-7.7); Neutrophil % 94.9 % (47-70); POSITIVE DIFFERENTIAL YES; Platelet Count 199 K/mm3 (150-450); RBC Distribution Width CV 16.2 % (11.6-14.6); RBC Distribution Width SD 57.5 fl (35.1-43.9); White Blood Count 19.8 K/mm3 (4.4-11.0)
--- NOTE | 2022-09-15 07:50 | PCM.PN.HOSP ---
Subjective Subjective Follow-up hypoxia Patient seen currently of oxygen at rest. Plan is for patient to be assessed for home oxygen with a 6-minute walk. Her WBC count is trending up attributed to patient being on steroids Objective Data Objective Data Vital Signs: Vital Signs Temp Pulse Resp BP Pulse Ox O2 Del Method O2 Flow Rate 98.4 F 60 18 135/79 H 95 Nasal Cannula 2 09/15/22 03:15 09/15/22 03:26 09/15/22 03:26 09/15/22 03:15 09/15/22 03:26 09/15/22 03:26 09/15/22 03:26 Oxygen Flow Rate (L/min) 2 Oxygen Delivery Method Nasal Cannula Weight: 111.8 kg Body Mass Index (BMI) 39.3 Intake & Output: Intake and Output for Last 24 Hours 09/13/22 09/14/22 09/15/22 23:59 23:59 23:59 Intake Total 1175 / 1175 780 / 855 75 / 75 Balance 1175 / 1175 780 / 855 75 / 75 Lab / Micro Data Result Diagrams: 09/15/22 06:03 09/15/22 06:03 Micro: Microbiology 09/13/22 23:00 Urine, Clean Catch Streptococcus pneumoniae Antigen (M - Final 09/13/22 23:00 Urine, Clean Catch Legionella Antigen - Final 09/13/22 18:55 Mucosa - Nasopharyngeal Respiratory Panel (PCR) - Final 09/13/22 15:10 Nasal Secretion SARS-CoV-2 & FLU Antigen (Rapid) - Final Physical Exam Narrative GENERAL: cooperative HEENT: Atraumatic; normocephalic EYES; Anicteric, Normal Conjunctiva NECK; supple, normal thyroid, RESPIRATORY: Diminished to auscultation CARDIOVASCULAR: Regular S1 S2, GI: soft, normoactive bowel sounds, : No Renal angle tenderness; EXTREMITIES: edema, no clubbing, MUSCULOSKELETAL: no muscle wasting NEURO: Awake; no lateralizing signs. SKIN: No Rash PSYCH; Flat affect Assessment & Plan Assessment/Plan (1) Acute respiratory failure with hypoxia: PLAN: Plan Patient is a 51-year-old lady with multiple comorbidities admitted with progressive shortness of breath. Patient was found to be hypoxic with oxygen saturation in the 70s. An assessment of acute hypoxic respiratory failure secondary to combination of decompensated CHF as well as COPD with acute exacerbation made admitted to a monitored bed for further management 1. 1. Acute hypoxic respiratory failure secondary to combination of CHF and COPD ? Patient admitted to monitored bed for treatment of underlying etiology ? 09/15/2021; patient is currently off oxygen at rest. Plan is for patient to be assessed for home oxygen with a 6-minute walk. 2. Acute on chronic congestive heart failure with reduced ejection fraction ? Patient had echo performed on 05/23/2022 which demonstrated EF of 40%. Admitted to a monitored bed managed with fluid restriction, strict input and output, daily weights, low-salt diet. Patient was placed on furosemide. Response to therapy being monitored with measures listed above as well as daily BMPs 3. COPD with acute exacerbation ? Managed with aerosol treatment as well as systemic steroid and antibiotic therapy with Levaquin. Patient is on supplemental oxygen currently being titrated to keep saturation greater than 90 4. Paroxysmal A. fib/flutter ? Patient is on flecainide and metoprolol as well as systemic anticoagulation with Eliquis.? Consult was placed to cardiology Case discussed with Dr. Benavides? plan for patient to undergo MABEL with cardioversion on 05/23/2022 5.? Pulmonary hypertension ? Patient is on Revatio did continue 6.? Chronic alcohol dependence ? Counseled on cessation 7.? Dyslipidemia -Patient is on statin therapy, continued at home dose 8.? Chronic kidney disease stage III ? Kidney function at baseline 9.? GERD ? On PPI 10.? Hypothyroidism - Patient is on levothyroxine home dose continued 11. Class II obesity with BMI of 39.2 ? Weight loss advised 12. DVT prophylaxis ? On apixaban Time spent in the patient's overall evaluation,decision-making process, review of diagnostic data, adjustment of management, discussion with other providers, nursing nursing and ancillary staff involved in patient's care documentation, 36 Minutes Charges/Coding Visit Charges Inpatient E&M: 87059 Subs Hosp L2
[2022-09-15 07:52] LABS: Differential Indicated SCAN CRITERIA MET
[2022-09-15 07:59] LABS: Anion Gap 10 (5-15); BUN 53 mg/dL (7-18); BUN/Creat Ratio 25.9 RATIO (10-20); Calcium,Total 9.5 mg/dL (8.5-10.1); Chloride 100 mmol/L (98-107); Creatinine, Serum 2.05 mg/dL (0.55-1.02); EST Glomerular Filtration Rate 27 mL/min (>60); Est Glom Filt Rate - Afr Amer 33 mL/min (>60); Estimated Creatinine Clearance 30.86 ml/min; Glucose 180 mg/dL (74-106); Magnesium 2.1 mg/dL (1.6-2.6); Phosphorus 3.8 mg/dL (2.5-4.9); Potassium 4.1 mmol/L (3.5-5.1); Sodium Level 133 mmol/L (136-145)
[2022-09-15] MEDS: Multivitamins,Therapeutic Tablet 1 TABLET PO (08:00)
[2022-09-15] MEDS: Folic Acid 1 MG Tablet PO (08:00)
[2022-09-15] MEDS: Acetaminophen 325 MG Tablet 650 MG PO ×2 (08:09→21:13)
[2022-09-15 09:47] LABS: Differential Comment SCANNED
[2022-09-15] MEDS: APIXABAN 5 MG TABLET PO ×2 (09:56→21:21)
[2022-09-15] MEDS: Metoprolol Tartrate 25 MG Tablet PO ×2 (09:57→21:20)
[2022-09-15] MEDS: levoFLOXacin 750 MG Tablet PO (09:57)
[2022-09-15] MEDS: guaiFENesin 1,200 MG Tablet 1200 MG PO ×2 (09:57→21:20)
[2022-09-15] MEDS: amLODIPine 5 MG Tablet PO (09:57)
[2022-09-15] MEDS: buPROPion (XL) 300 MG TABLET.XL PO (09:58)
[2022-09-15] MEDS: Ursodiol 250 MG Tablet PO ×2 (09:58→21:20)
[2022-09-15] MEDS: Montelukast 10 MG Tablet PO (09:58)
[2022-09-15] MEDS: Pantoprazole Sodium 40 MG Tablet PO (09:58)
[2022-09-15] MEDS: Flecainide 100 MG Tablet PO ×2 (09:58→21:21)
--- NOTE | 2022-09-15 10:00 | EKG12_ITS ---
Test Reason : cp Blood Pressure : / mmHG Vent. Rate : 055 BPM Atrial Rate : 055 BPM P-R Int : 212 ms QRS Dur : 100 ms QT Int : 494 ms P-R-T Axes : 055 067 024 degrees QTc Int : 472 ms Sinus bradycardia with 1st degree A-V block Otherwise normal ECG Confirmed by ANTONIO DIAZ, SARAI ([id number]), editor sound SHERYL PRAJAPATI ([id number]) on 09/18/2022 10:00:33 AM Referred By: Ashwin Confirmed By:SARAI ALVAREZ MD
[2022-09-15] MEDS: Celecoxib 100 MG Capsule PO (10:07)
[2022-09-15] MEDS: Atorvastatin Calcium 20 MG Tablet PO (21:21)
[2022-09-16] VITALS (11 sets, daily range): BP systolic 140–149; BP diastolic 81–83; PULSE 53–77; RESP 16–21; TEMP 36.4–36.7; O2SAT 90–99
[2022-09-16] MEDS: Ipratropium/Albuterol Sulfate 3 ML AMPUL.NEB INHALATION ×3 (01:50→10:26)
[2022-09-16] MEDS: LORazepam 1 MG Tablet 2 MG PO (04:06)
[2022-09-16] MEDS: oxyCODONE 5 MG Tablet PO (04:07)
[2022-09-16] MEDS: Acetaminophen 325 MG Tablet 650 MG PO (04:07)
[2022-09-16] MEDS: SILDENAFIL CITRATE 20 MG TABLET PO (05:58)
[2022-09-16] MEDS: 0.9% Saline Lock 10 ML Syringe IV (06:01)
[2022-09-16 06:37] LABS: Absolute Lymphocyte Count 0.29 X10^3/uL (0.83-4.51); Absolute Neutrophil Count 16.9 X10^3/uL (2.0-7.7); Basophil# 0.03 X10^3/uL; Basophil% 0.2 % (0-1); Hematocrit 47.1 % (37-47); Lymphocyte # 0.29 X10^3/ul (0.83-4.51); Lymphocyte % 1.6 % (19-41); Mean Corp Hgb Conc 31.8 g/dL (32-36); Mean Corpuscular Volume 97.3 fL (81-99); Mean Platelet Vol. 9.6 fl (6.2-12.0); Monocyte# 0.78 X10^3/uL; Monocyte% 4.3 % (0-10); NRBC Flagged by Analyzer 0 % (0-5); Neutrophil # 16.85 X10^3/uL (2.7-7.7); Neutrophil % 92.6 % (47-70); POSITIVE DIFFERENTIAL YES; Platelet Count 219 K/mm3 (150-450); RBC Distribution Width CV 15.9 % (11.6-14.6); RBC Distribution Width SD 57.4 fl (35.1-43.9); Red Blood Count 4.84 M/mm3 (4.2-5.4); White Blood Count 18.2 K/mm3 (4.4-11.0)
[2022-09-16 06:57] LABS: Differential Indicated SCAN CRITERIA MET
[2022-09-16 07:02] LABS: Anion Gap 9 (5-15); BUN 49 mg/dL (7-18); BUN/Creat Ratio 30.8 RATIO (10-20); Calcium,Total 9.2 mg/dL (8.5-10.1); Chloride 102 mmol/L (98-107); Creatinine, Serum 1.59 mg/dL (0.55-1.02); EST Glomerular Filtration Rate 36 mL/min (>60); Est Glom Filt Rate - Afr Amer 44 mL/min (>60); Estimated Creatinine Clearance 39.79 ml/min; Glucose 155 mg/dL (74-106); Sodium Level 135 mmol/L (136-145)
[2022-09-16 07:17] LABS: Anisocytosis 1+
[2022-09-16] MEDS: Folic Acid 1 MG Tablet PO (09:49)
[2022-09-16] MEDS: guaiFENesin 1,200 MG Tablet 1200 MG PO (09:49)
[2022-09-16] MEDS: Ursodiol 250 MG Tablet PO (09:49)
[2022-09-16] MEDS: amLODIPine 5 MG Tablet PO (09:49)
[2022-09-16] MEDS: APIXABAN 5 MG TABLET PO (09:49)
[2022-09-16] MEDS: Celecoxib 100 MG Capsule PO (09:49)
[2022-09-16] MEDS: Flecainide 100 MG Tablet PO (09:49)
[2022-09-16] MEDS: Multivitamins,Therapeutic Tablet 1 TABLET PO (09:49)
[2022-09-16] MEDS: buPROPion (XL) 300 MG TABLET.XL PO (09:49)
[2022-09-16] MEDS: Montelukast 10 MG Tablet PO (09:50)
[2022-09-16] MEDS: Metoprolol Tartrate 25 MG Tablet PO (09:50)
[2022-09-16] MEDS: Pantoprazole Sodium 40 MG Tablet PO (09:50)
--- NOTE | 2022-09-16 11:41 | DCINST_ITS ---
Discharge Instructions Diet Discharge Diet: Low fat / Low cholesterol and 6 Cup Fluid Restriction Dressing / Incision Call your doctor if you observe: Fever of 101 or Higher, Shortness of breath, Dizziness, Fainting spells, Swelling in the ankles, Chest pain and Increased palpitations (irregular heartbeat) Follow Up Care Test Results: Test results from this visit will be discussed in further detail at your follow- up appointment, if applicable. Discharge Plan Admission Admit Date/Time: 09/13/22 16:48 Attending Provider: Maurice Barrientos Primary Care Provider: Didier Watkins Consulting Providers: Jennifer Christopher ; Henrik Werner Discharge Orders/Prescriptions Prescriptions: New levofloxacin 750 mg Tablet 750 mg PO Q48 Qty: 3 0RF prednisone 20 mg tablet 40 mg PO DAILY Qty: 14 0RF Continued rosuvastatin [Crestor] 5 mg tablet 10 mg PO DAILY sildenafil (pulm.hypertension) 20 mg tablet 20 mg PO TID pantoprazole 40 mg tablet,delayed release (DR/EC) 40 mg PO QAM Qty: 30 12RF furosemide 40 mg tablet 40 mg PO DAILY PRN (Reason: edema) Qty: 30 3RF flecainide 100 mg tablet 100 mg PO BID Qty: 60 11RF celecoxib [Celebrex] 100 mg capsule 100 mg PO DAILY Jardiance 10 mg tablet 10 mg PO DAILY Qty: 90 3RF metoprolol tartrate 50 mg tablet 25 mg PO Q12 Qty: 60 0RF amlodipine [Norvasc] 5 mg tablet 5 mg PO DAILY Qty: 30 11RF acetaminophen 500 MG tablet 1,000 mg PO DAILY PRN PRN (Reason: Pain 1-10 Or Fever) folic acid 1 MG tablet 1 mg PO DAILY cholecalciferol (vitamin D3) 10 MCG capsule 4,000 unit PO DAILY multivitamin Tablet 1 tab PO DAILY MDD SUPPLEMEMT montelukast [Singulair] 10 mg tablet 10 mg PO DAILY Trelegy Ellipta 100-62.5-25 mcg blister with device 1 inh INHALATION DAILY Label Comments: INHALE 1 (ONE) PUFF FOLLOWED BY GOOD [facility]AL CARe trazodone 100 mg Tablet 100 mg PO QHS PRN PRN (Reason: Insomnia) 14 Days Qty: 14 0RF bupropion HCl 300 mg tablet extended release 24 hr 300 mg PO DAILY ursodiol 300 mg capsule 300 mg PO BID Qty: 180 3RF Eliquis 5 mg tablet 5 mg PO BID Qty: 60 11RF Referrals / Follow Up: Didier Watkins MD [Primary Care Provider] - Within 1 Week Disposition Disposition (needs filled in before D/C Order can be placed): Home, Self Care
--- NOTE | 2022-09-16 12:03 | CASEMGMT ---
RN CM reviewed documentation and patient does not qualify for home oxygen. RN CM in to discuss discharge needs with patient. Patient denies needs at this time. CM advised patient to follow up with PCP. Patient voiced understanding. Patient had no further questions or concerns at this time.
--- NOTE | 2022-09-16 12:52 | PCM.DC.SUM ---
Providers Date of Admission: 09/13/22 Primary Care Physician: Dr. Didier Watkins MD Reason For Visit: RESP FAILURE, POSS CHF EXAC/COPD EXAC, BRONCHITIS Diagnosis Discharge Diagnosis (1) Acute respiratory failure with hypoxia: Status: Acute Code(s): J96.01 - Acute respiratory failure with hypoxia Medications at Discharge Home Medications rosuvastatin 5 mg tablet (Crestor) 10 mg PO DAILY cholesterol 06/18/19 acetaminophen 500 mg tablet 1,000 mg PO DAILY PRN PRN Pain 1-10 Or Fever 08/01/20 cholecalciferol (vitamin D3) 10 mcg (400 unit) capsule 4,000 unit PO DAILY supplement 08/01/20 folic acid 1 mg tablet 1 mg PO DAILY supplement 08/01/20 montelukast 10 mg tablet (Singulair) 10 mg PO DAILY asthma 12/28/20 multivitamin 1 tab PO DAILY DAILY 12/28/20 sildenafil (pulm.hypertension) 20 mg tablet 20 mg PO TID pulmonary HTN 05/01/21 fluticasone fur. 100 mcg-umeclid 62.5 mcg-vilant 25 mcg inhalat.powder (Trelegy Ellipta) 1 inh inhalation DAILY COPD 01/20/22 trazodone 100 mg tablet 100 mg PO QHS PRN PRN Insomnia 14 days #14 tabs 01/24/22 ursodiol 300 mg capsule 300 mg PO BID #180 caps 02/04/22 bupropion HCl 300 mg 24 hr tablet, extended release 300 mg PO DAILY mood 05/16/22 apixaban 5 mg tablet (Eliquis) 5 mg PO BID blood thinner #60 tabs 05/20/22 flecainide 100 mg tablet 100 mg PO BID #60 tabs 06/11/22 furosemide 40 mg tablet 40 mg PO DAILY PRN edema #30 tabs 06/11/22 celecoxib 100 mg capsule (Celebrex) 100 mg PO DAILY 07/18/22 empagliflozin 10 mg tablet (Jardiance) 10 mg PO DAILY #90 tabs 07/18/22 metoprolol tartrate 50 mg tablet 25 mg PO Q12 #60 tabs 07/18/22 pantoprazole 40 mg tablet,delayed release 40 mg PO QAM #30 tabs 08/13/22 amlodipine 5 mg tablet (Norvasc) 5 mg PO DAILY #30 tabs 09/11/22 levofloxacin 750 mg tablet 750 mg PO Q48 #3 tabs 09/16/22 prednisone 20 mg tablet 40 mg PO DAILY #14 tabs 09/16/22 Hospital Course Operations None Procedures None Summary of Care Provided Minutes Spent on Discharge: 45 Hospital Course: Per HPI: The patient is a 51 y/o F w/ PMHx: Morbid Obesity, Chronic anemia/Fe deficiency anemia, Hx VTE (DVT, PE), COPD, FADY on CPAP, PAF/Flutter, GERD, Depression and Anxiety w/ panic attacks, CKD stage III unclear subtype, Diastolic CHF, Former tobacco use, Hx PFO, EtOH Abuse w/ Alcoholic liver fibrosis following w/ Dr. Tuttle who presents to the [facility] ED on 09/13/22 with history of progressively worsening dyspnea with recent diagnosis of bronchitis with chest heaviness ongoing since then with intermittent pleuritic discomfort especially with cough, headache, fatigue and malaise; however, worsened upon awakening this morning with significant inability to even catch her breath and reporting a low pulse oximeter at home normally only using her CPAP at night with no recent fevers or chills but did have recent cardiology evaluation 09/11/2022 with lab work and imaging done at that time with recommendation to start Lasix secondary to concerns for overload however given ongoing decline prompted ED evaluation.? She states in the past she had also been on Lasix but had been taken off secondary to renal dysfunction associated.? She does report that her cough is not markedly productive but she does have occasional wheezing and feels tight as though she is not gotten over her prior acute bronchitis that was approximately 1 to 2 weeks prior.? She does report mild edema and orthopnea.? Work-up in the ED included T96.8 Temporally, heart rate 84, BP 147/84 initially with most recent repeat 116/79, respiratory rate 22, initially 70% on room air with improvement to 90% on 7 L nasal cannula, CBC with WC 15.9, hemoglobin 13.7, platelet 148 with left shift and lymphopenia, BMP with BUN/creat 38/1.97, troponin 9->repeat delta 9, BNP 328.4, chest x-ray with mild degree of vascular congestion with mild increased markings lung bases and blunting of the left costophrenic angle, EKG w/ SR without acute evidence of ischemia, COVID/influenza rapid antigens pending per ED, CT chest with mild BL segmental lateral phthisis or pneumonitis, mild emphysematous change with thick left upper lobe scar, suspected pulmonary artery hypertension, small pericardial effusion. In the ED patient administered duoneb and albuterol therapies, levaquin, lasix 40 mg IV x1. Discussed with ED physician and given significant oxygen requirements ABG as well as BiPAP ordered. Hospital Course: 1. Acute hypoxic respiratory failure secondary to acute on chronic systolic CHF and a COPD exacerbation/pulmonary hypertension?51-year-old female who had an echo in May 23, 2022 with an EF of 40% as well as right ventricular dysfunction presents to the hospital with increased shortness of breath. It was thought that she had a combination of CHF and COPD as a cause. She has been diuresed and also placed on steroids. She has had significant improvement during her hospitalization, today she was able to ambulate without requiring any oxygen. I discussed with her at length the idea of a fluid restriction as well as the need for diuretics on outpatient follow-up. She expressed understanding of the risk benefits of going home and wants to go home today. We will plan for 7 days of steroid's as well as resumption of Lasix on discharge. Did also her with 3 tablets of Levaquin 750 mg p.o. every other day given her COPD. Also continue with her's sildenafil for her history of pulmonary hypertension. I discussed with her at length as well as the need for weight loss and to stop her alcohol dependence. She did express understanding of this and states that she is can have difficulty convincing her potentially to stop drinking as well. 2. Paroxysmal A. fib, hypertension, hyperlipidemia, CKD 3B, GERD, hypothyroidism are all chronic medical conditions which complicates her care. Her home medications were continued where appropriate Physical Exam Narrative General: Alert, Oriented x3, Cooperative, No apparent distress HEENT: Atraumatic, PERRLA, EOMI, Normocephalic Oral: Moist Mucosa Neck: Supple, No JVD Lungs: Diminished, Normal air movement, No rhonchi, No wheeze, No rales Cardiovascular: Regular rate, Regular Rhythm, Normal S1, Normal S2, No murmurs Abdomen: Soft, Non Tender, Non-Distended, No Hepato-splenomegaly Extremities: Edema, Capillary Refill Less than 3 Seconds Skin: No rashes, No breakdown Musculoskeletal: No Tenderness to Palpation of Joints or Extremities Neurological: Cranial nerves II-XII grossly intact, Motor Exam 5/5 strength throughout, Sensory exam intact to light touch and pain Psych/Mental Status: Normal Affect, Appropriate Weight / BMI Weight Weight: 247 lb 12.793 oz Body Mass Index (BMI) 39.3 ABG / Lab / Microbiology Data Result Diagrams: 09/16/22 05:50 09/16/22 05:50 Laboratory: Laboratory Results - last 24 hr 09/16/22 05:50: WBC 18.2 H, RBC 4.84, Hgb 15.0, Hct 47.1 H, MCV 97.3, MCH 31.0, MCHC 31.8 L, RDW Std Deviation 57.4 H, RDW Coeff of Leighton 15.9 H, Plt Count 219, MPV 9.6, Immature Gran % (Auto) 1.300 H, Neut % (Auto) 92.6 H, Lymph % (Auto) 1.6 L, [place] % (Auto) 4.3, Eos % (Auto) 0.0, Baso % (Auto) 0.2, Absolute Neuts (auto) 16.9 H, Absolute Lymphs (auto) 0.29 L, Nucleated RBC % 0, Anisocytosis 1+ 09/16/22 05:50: Sodium 135 L, Potassium 5.0, Chloride 102, Carbon Dioxide 24.0, Anion Gap 9, BUN 49 H, Creatinine 1.59 H, Estim Creat Clear Calc 39.79, Est GFR (MDRD) Af Amer 44 L, Est GFR (MDRD) Non-Af 36 L, BUN/Creatinine Ratio 30.8 H, Glucose 155 H, Calcium 9.2 Microbiology: Microbiology 09/14/22 14:26 Sputum, Expectorated/Coughed Gram Stain - Final 09/14/22 14:26 Sputum, Expectorated/Coughed Respiratory Culture - Final Mixed normal respiratory charles. No Streptococcus pneumoniae, beta-hemolytic Streptococcus or Staphylococcus aureus isolated. 09/13/22 23:00 Urine, Clean Catch Streptococcus pneumoniae Antigen (M - Final 09/13/22 23:00 Urine, Clean Catch Legionella Antigen - Final 09/13/22 18:55 Mucosa - Nasopharyngeal Respiratory Panel (PCR) - Final 09/13/22 15:10 Nasal Secretion SARS-CoV-2 & FLU Antigen (Rapid) - Final D/C Instructions Discharge Diet: Low fat / Low cholesterol and 6 Cup Fluid Restriction Call your doctor if you observe: Fever of 101 or Higher, Shortness of breath, Dizziness, Fainting spells, Swelling in the ankles, Chest pain and Increased palpitations (irregular heartbeat) Meaningful Use Info Meaningful Use Diagnoses (Choose all that apply): None applicable Discharge Plan Admission Admit Date/Time: 09/13/22 16:48 Attending Provider: Maurice Barrientos Primary Care Provider: Didier Watkins Consulting Providers: Jennifer Christopher ; Henrik Werner Discharge Orders/Prescriptions Prescriptions: New levofloxacin 750 mg Tablet 750 mg PO Q48 Qty: 3 0RF prednisone 20 mg tablet 40 mg PO DAILY Qty: 14 0RF Continued rosuvastatin [Crestor] 5 mg tablet 10 mg PO DAILY sildenafil (pulm.hypertension) 20 mg tablet 20 mg PO TID pantoprazole 40 mg tablet,delayed release (DR/EC) 40 mg PO QAM Qty: 30 12RF furosemide 40 mg tablet 40 mg PO DAILY PRN (Reason: edema) Qty: 30 3RF flecainide 100 mg tablet 100 mg PO BID Qty: 60 11RF celecoxib [Celebrex] 100 mg capsule 100 mg PO DAILY Jardiance 10 mg tablet 10 mg PO DAILY Qty: 90 3RF metoprolol tartrate 50 mg tablet 25 mg PO Q12 Qty: 60 0RF amlodipine [Norvasc] 5 mg tablet 5 mg PO DAILY Qty: 30 11RF acetaminophen 500 MG tablet 1,000 mg PO DAILY PRN PRN (Reason: Pain 1-10 Or Fever) folic acid 1 MG tablet 1 mg PO DAILY cholecalciferol (vitamin D3) 10 MCG capsule 4,000 unit PO DAILY multivitamin Tablet 1 tab PO DAILY MDD SUPPLEMEMT montelukast [Singulair] 10 mg tablet 10 mg PO DAILY Trelegy Ellipta 100-62.5-25 mcg blister with device 1 inh INHALATION DAILY Label Comments: INHALE 1 (ONE) PUFF FOLLOWED BY [facility]e trazodone 100 mg Tablet 100 mg PO QHS PRN PRN (Reason: Insomnia) 14 Days Qty: 14 0RF bupropion HCl 300 mg tablet extended release 24 hr 300 mg PO DAILY ursodiol 300 mg capsule 300 mg PO BID Qty: 180 3RF Eliquis 5 mg tablet 5 mg PO BID Qty: 60 11RF Referrals / Follow Up: Didier Watkins MD [Primary Care Provider] - Within 1 Week (Office closed at this time. Please call to schedule appointment.) Disposition Disposition (needs filled in before D/C Order can be placed): Home, Self Care Charges/Coding Visit Charges Inpatient E&M: 84651 Disch Hosp >30min
== END 2022-09-16 12:50 | disposition home or self-care (01) | DRG 194 ==
LOC: ED 13:19 → PCU 16:53
PROVIDERS: Internal Medicine; Admitting Provider Family Medicine; Emergency Provider Student in an Organized Health Care Education/Training Program; PCP Family Medicine; Visit Provider Family Medicine
DX: I13.0 Hypertensive heart and chronic kidney disease with heart failure and stage 1 through stage 4 chronic kidney disease, or unspecified chronic kidney disease (principal); J96.01 Acute respiratory failure with hypoxia; I27.20 Pulmonary hypertension, unspecified; J44.0 Chronic obstructive pulmonary disease with (acute) lower respiratory infection; D69.6 Thrombocytopenia, unspecified; J44.1 Chronic obstructive pulmonary disease with (acute) exacerbation; I50.23 Acute on chronic systolic (congestive) heart failure; I48.0 Paroxysmal atrial fibrillation; E66.01 Morbid (severe) obesity due to excess calories; N18.32 Chronic kidney disease, stage 3b; G47.33 Obstructive sleep apnea (adult) (pediatric); J30.9 Allergic rhinitis, unspecified; K44.9 Diaphragmatic hernia without obstruction or gangrene; J20.9 Acute bronchitis, unspecified; K74.00 Hepatic fibrosis, unspecified; F10.10 Alcohol abuse, uncomplicated; K21.9 Gastro-esophageal reflux disease without esophagitis; E78.5 Hyperlipidemia, unspecified; E03.9 Hypothyroidism, unspecified; Z68.39 Body mass index [BMI] 39.0-39.9, adult; Z79.01 Long term (current) use of anticoagulants; Z87.891 Personal history of nicotine dependence; F41.0 Panic disorder [episodic paroxysmal anxiety]
CPT/HCPCS: 36415; 71045; 71046; 71250; 80048; 80053; 80061; 83735; 83880; 84100; 84145; 84443; 84484; 85025; 87070; 87205; 87428; 87449; 87633; 87635; 93005; 94640; 94667; 94668; 99252; 99284; 99406; A4216; G0463; J1940; U0003; U0005

== ENCOUNTER 2022-09-28 09:45 | Emergency (ER) | payer MEDICAID, SELFPAY ==
[2022-09-28 09:46] VITALS: BP 123/86; PULSE 54; RESP 16; TEMP 35.7; O2SAT 97; BMI 39.1
--- NOTE | 2022-09-28 09:59 | EX.ED.DYSGE1 ---
HPI History of Present Illness Chief Complaint: Lower Extremity Injury Detail of Chief Complaint: Bilateral lower extremity pain Informant: patient Onset/Context/Timing Onset: Days (4 days) Current Severity: Moderate Maximum Severity: Moderate Narrative Narrative: Patient presents secondary to bilateral lower extremity pain. She states she has pain in both legs distal to the knees. Pain started 3 days ago. She denies any injury. She is a history of DVTs and is currently on Eliquis. She denies missing any doses. She denies back pain. She denies having paresthesias. Patient has been taking Tylenol for pain. She did take a few of her husbands muscle relaxers as well in an attempt to help without improvement. She is on Celebrex chronically. [facility] Medical History Alcohol abuse Allergic rhinitis Anemia Anxiety Atrial fibrillation Atrial flutter Bilateral knee pain Chronic kidney disease (CKD) COPD (chronic obstructive pulmonary disease) CPAP (continuous positive airway pressure) dependence Depression DVT (deep venous thrombosis) Esophageal spasm Essential (primary) hypertension Extremity cyanosis Fatty liver Former smoker Former smoker GERD (gastroesophageal reflux disease) Heart failure with preserved ejection fraction HFrEF (heart failure with reduced ejection fraction) Hiatal hernia History of back problems History of edema History of pain when walking HLD (hyperlipidemia) HTN (hypertension), benign Hyperthyroidism Hypomagnesemia Iron deficiency Migraines Morbid obesity with BMI of 40.0-44.9, adult Non-ischemic cardiomyopathy Obstructive sleep apnea Osteoarthritis PAF (paroxysmal atrial fibrillation) Panic attack Paroxysmal atrial fibrillation Patellofemoral syndrome of both knees PFO (patent foramen ovale) Pulmonary embolism (04/26/16) Secondary pulmonary arterial hypertension Tobacco user Tubular adenoma of colon Home Medications rosuvastatin 5 mg tablet (Crestor) 10 mg PO DAILY cholesterol 06/18/19 [History Last Taken 09/12/22] acetaminophen 500 mg tablet 1,000 mg PO DAILY PRN PRN Pain 1-10 Or Fever 08/01/20 [History Last Taken 09/13/22] cholecalciferol (vitamin D3) 10 mcg (400 unit) capsule 4,000 unit PO DAILY supplement 08/01/20 [History Last Taken 09/12/22] folic acid 1 mg tablet 1 mg PO DAILY supplement 08/01/20 [History Last Taken 09/12/22] multivitamin 1 tab PO DAILY DAILY 12/28/20 [History Last Taken 09/12/22] sildenafil (pulm.hypertension) 20 mg tablet 20 mg PO TID pulmonary HTN 05/01/21 [History Last Taken 09/12/22] fluticasone fur. 100 mcg-umeclid 62.5 mcg-vilant 25 mcg inhalat.powder (Trelegy Ellipta) 1 inh inhalation DAILY COPD 01/20/22 [History Last Taken 09/12/22] trazodone 100 mg tablet 100 mg PO QHS PRN PRN Insomnia 14 days #14 tabs 01/24/22 [Rx Last Taken 3 Days Ago ~09/10/22] ursodiol 300 mg capsule 300 mg PO BID #180 caps 02/04/22 [Rx Last Taken 09/12/22] bupropion HCl 300 mg 24 hr tablet, extended release 300 mg PO DAILY mood 05/16/22 [History Last Taken 09/12/22] apixaban 5 mg tablet (Eliquis) 5 mg PO BID blood thinner #60 tabs 05/20/22 [Rx Last Taken 09/12/22] flecainide 100 mg tablet 100 mg PO BID #60 tabs 06/11/22 [Rx Last Taken 09/12/22] celecoxib 100 mg capsule (Celebrex) 100 mg PO DAILY 07/18/22 [History Last Taken 09/12/22] empagliflozin 10 mg tablet (Jardiance) 10 mg PO DAILY #90 tabs 07/18/22 [Rx Last Taken 09/12/22] metoprolol tartrate 50 mg tablet 25 mg PO Q12 #60 tabs 07/18/22 [Rx Last Taken 09/12/22] pantoprazole 40 mg tablet,delayed release 40 mg PO QAM #30 tabs 08/13/22 [Rx Last Taken 09/12/22] amlodipine 5 mg tablet (Norvasc) 5 mg PO DAILY #30 tabs 09/11/22 [Rx Last Taken 09/13/22] furosemide 40 mg tablet 40 mg PO DAILY edema #90 tabs 09/18/22 [Rx Last Taken Unknown] oxycodone 5 mg tablet 5 mg PO Q8H PRN pain 3 days #10 tabs 09/28/22 [Rx Last Taken Unknown] prednisone 10 mg tablet 10 mg PO UD #33 tabs 09/28/22 [Rx Last Taken Unknown] Allergy/AdvReac Type Severity Reaction Status Date / Time doxycycline Allergy Hives Verified 09/28/22 09:46 hydrocodone [From Vicodin] AdvReac Itching Verified 09/28/22 09:46 Family History Mother Breast cancer Cancer lung cancer Father Cancer lung cancer Hypertension High cholesterol Surgical History H/O repair of rotator cuff History of History of cardiac catheterization History of cardioversion (05/23/22) History of cholecystectomy History of hysterectomy History of nasal surgery History of repair of hiatal hernia (12/2020) History of transesophageal echocardiography (MABEL) (05/23/22) Social History household members: spouse Smoking Status: Former smoker quit date: 01/11/22 alcohol intake: current alcohol intake frequency: 3 or more drinks per day Alcohol type: hard liquor details: Started drinking again recently, has been intermittent. Hard liquor drinks. substance use type: does not use ROS ROS ED Constitutional Constitutional ED: Denies chills or fever(s) Eyes Eyes: Denies change in vision or discharge from eye(s) ENT ENT ED: Denies discharge from eye(s), rhinorrhea or sore throat Cardiovascular Cardiovascular: Denies chest pain or palpitations Respiratory/Chest Respiratory/Chest: Denies cough or dyspnea Gastrointestinal Gastrointestinal: Denies abdominal pain, diarrhea, nausea or vomiting Genitourinary Genitourinary ED: Denies dysuria Musculoskeletal Musculoskeletal: Reports extremity pain; Denies back pain Integumentary Denies Abrasions or rash Neurologic Neurologic: Denies headache(s) or weakness Psychiatric Psychiatric: Denies anxiety or depression Allergic/Immunologic Allergic/Immunologic ED: Denies lip swelling or urticaria EXAM Physical Exam Const Vital Signs: 09/28/22 09:46 Temperature 96.3 F L Temperature Source Temporal Pulse Rate 54 L Respiratory Rate 16 Blood Pressure 123/86 H Blood Pressure Mean 98 Pulse Ox 97 Oxygen Delivery Method Room Air Positive well nourished and well developed General Appearance ED: well developed HEENT Reports moist mucous membranes Eyes PERRL and EOMs intact bilaterally Neck no lymphadenopathy Chest Wall inspection of chest normal and palpation of chest normal Resp normal respiratory effort and clear to auscultation bilaterally Cardio regular rate and regular rhythm GI normal to inspection, nondistended, normoactive bowel sounds Extremity Extremity Narrative: Strong distal pulses bilateral lower extremities. No significant calf tenderness or edema. No rash or skin lesion noted. Neuro oriented x3 and no sensory deficits noted Neuro Narrative: Patient has good strength on testing, but does report pain to the lower legs and feels that her legs may buckle when she stands. Psych mental status grossly normal Skin no rashes or lesions noted MDM MDM MDM Narrative Medical decision making narrative: Patient was given a dose of oxycodone. Lab work obtained to evaluate for electrolyte derangement. She has been very consistent with taking her Eliquis and has bilateral leg symptoms. We discussed possibility of DVT, but I believe this is very unlikely and I do not believe she needs venous ultrasound at this time. She has no back pain and I do not believe imaging of her back will be beneficial. Lab Data Attestation: I reviewed the patient's lab results. Labs: Laboratory Results - last 24 hr 09/28/22 09/28/22 10:11 10:11 WBC 11.9 H RBC 4.30 Hgb 13.2 Hct 40.8 MCV 94.9 MCH 30.7 MCHC 32.4 RDW Std Deviation 51.0 H RDW Coeff of [place] 14.6 Plt Count 187 MPV 9.6 Immature Gran % (Auto) 3.900 H Neut % (Auto) 77.7 H Lymph % (Auto) 7.4 L [place] % (Auto) 6.7 Eos % (Auto) 3.5 Baso % (Auto) 0.8 Absolute Neuts (auto) 9.2 H Absolute Lymphs (auto) 0.88 Nucleated RBC % 0 ESR 7 Sodium 137 Potassium 4.1 Chloride 99 Carbon Dioxide 26.0 Anion Gap 12 BUN 47 H Creatinine 1.83 H Estim Creat Clear Calc 34.57 Est GFR (MDRD) Af Amer 37 L Est GFR (MDRD) Non-Af 31 L BUN/Creatinine Ratio 25.7 H Glucose 114 H Calcium 8.5 Magnesium 1.4 L C-React Prot Ext Range 13.70 H Treatment and Re-Evaluation Narrative: White blood cell count is slightly elevated 11.9, however this is improved when compared to her prior values. Chemistry studies consistent with chronic renal failure, creatinine 1.83. This is near her baseline as well. Her sed rate is normal at 7 but CRP is slightly elevated at 13.7. I did review the patient's recent hospital records. She was admitted to the hospital and discharged on the . She was on steroids while she was in the hospital and discharged with 7 days of prednisone, 40 mg daily. Patient stopped this medication 2 days before her leg pain started. I do question as to whether she is getting a rebound inflammation after being on steroids for quite some time. I do not believe she has a DVT or acute bony injury causing her pain. She has no paresthesias. I do believe it is worth putting the patient back on steroids with a slow taper to see if this helps her symptoms. I will also write her oxycodone to help control symptoms. Patient is comfortable with this plan. Discharge Plan Triage Chief Complaint: Lower Extremity Injury ED Provider: Claudia Crfat Dx/Rx/DC Orders Clinical Impression: Arthralgia Instructions: ED Arthralgia Prescriptions: New prednisone 10 mg tablet 10 mg PO UD Qty: 33 0RF Rx Instructions: Take 4 tablets daily for 3 days, then 3 daily for 3 days, then 2 daily for 3 days, then 1 a day for 3 days then 1 QOD for 3 doses. oxycodone 5 mg tablet 5 mg PO Q8H PRN (Reason: pain) 3 Days Qty: 10 0RF No Action rosuvastatin [Crestor] 5 mg tablet 10 mg PO DAILY sildenafil (pulm.hypertension) 20 mg tablet 20 mg PO TID pantoprazole 40 mg tablet,delayed release (DR/EC) 40 mg PO QAM Qty: 30 12RF flecainide 100 mg tablet 100 mg PO BID Qty: 60 11RF celecoxib [Celebrex] 100 mg capsule 100 mg PO DAILY Jardiance 10 mg tablet 10 mg PO DAILY Qty: 90 3RF metoprolol tartrate 50 mg tablet 25 mg PO Q12 Qty: 60 0RF amlodipine [Norvasc] 5 mg tablet 5 mg PO DAILY Qty: 30 11RF acetaminophen 500 MG tablet 1,000 mg PO DAILY PRN PRN (Reason: Pain 1-10 Or Fever) folic acid 1 MG tablet 1 mg PO DAILY cholecalciferol (vitamin D3) 10 MCG capsule 4,000 unit PO DAILY multivitamin Tablet 1 tab PO DAILY MDD SUPPLEMEMT Trelegy Ellipta 100-62.5-25 mcg blister with device 1 inh INHALATION DAILY Label Comments: INHALE 1 (ONE) PUFF FOLLOWED BY [employer] trazodone 100 mg Tablet 100 mg PO QHS PRN PRN (Reason: Insomnia) 14 Days Qty: 14 0RF bupropion HCl 300 mg tablet extended release 24 hr 300 mg PO DAILY ursodiol 300 mg capsule 300 mg PO BID Qty: 180 3RF Eliquis 5 mg tablet 5 mg PO BID Qty: 60 11RF furosemide 40 mg tablet 40 mg PO DAILY Qty: 90 3RF Primary Care Provider: Didier Watkins Referrals: Didier Watkins MD [Primary Care Provider] - 1-2 Weeks Disposition Disposition: Home, Self Care
[2022-09-28] MEDS: oxyCODONE 5 MG Tablet PO ×2 (10:05→11:21)
[2022-09-28 10:30] LABS: Erythrocyte Sedimentation Rate 7 mm/hr (0-30)
[2022-09-28 10:31] LABS: Absolute Lymphocyte Count 0.88 X10^3/uL (0.83-4.51); Absolute Neutrophil Count 9.2 X10^3/uL (2.0-7.7); Basophil# 0.09 X10^3/uL; Basophil% 0.8 % (0-1); Eosinophil# 0.41 X10^3/uL; Eosinophils% 3.5 % (0-5); Hematocrit 40.8 % (37-47); Hemoglobin 13.2 g/dL (12.0-15.0); Lymphocyte # 0.88 X10^3/ul (0.83-4.51); Lymphocyte % 7.4 % (19-41); Mean Corp Hgb Conc 32.4 g/dL (32-36); Mean Corpuscular Hgb 30.7 pg (27.0-32.0); Mean Corpuscular Volume 94.9 fL (81-99); Mean Platelet Vol. 9.6 fl (6.2-12.0); Monocyte# 0.79 X10^3/uL; Monocyte% 6.7 % (0-10); NRBC Flagged by Analyzer 0 % (0-5); Neutrophil # 9.22 X10^3/uL (2.7-7.7); Neutrophil % 77.7 % (47-70); Platelet Count 187 K/mm3 (150-450); RBC Distribution Width CV 14.6 % (11.6-14.6); White Blood Count 11.9 K/mm3 (4.4-11.0)
[2022-09-28 10:36] LABS: Anion Gap 12 (5-15); BUN 47 mg/dL (7-18); BUN/Creat Ratio 25.7 RATIO (10-20); Calcium,Total 8.5 mg/dL (8.5-10.1); Chloride 99 mmol/L (98-107); Creatinine, Serum 1.83 mg/dL (0.55-1.02); EST Glomerular Filtration Rate 31 mL/min (>60); Est Glom Filt Rate - Afr Amer 37 mL/min (>60); Estimated Creatinine Clearance 34.57 ml/min; Glucose 114 mg/dL (74-106); Magnesium 1.4 mg/dL (1.6-2.6); Potassium 4.1 mmol/L (3.5-5.1); Sodium Level 137 mmol/L (136-145)
[2022-09-28] MEDS: predniSONE 20 MG Tablet 40 MG PO (11:21)
[2022-09-28 11:23] VITALS: BP 115/77; PULSE 50; RESP 16; O2SAT 97
== END 2022-09-28 11:24 | disposition home or self-care (01) ==
PROVIDERS: Emergency Provider Emergency Medicine; PCP Family Medicine; Visit Provider Emergency Medicine
DX: M79.605 Pain in left leg (principal); E66.01 Morbid (severe) obesity due to excess calories; Z68.41 Body mass index [BMI] 40.0-44.9, adult; M79.604 Pain in right leg; Z87.891 Personal history of nicotine dependence; Z86.718 Personal history of other venous thrombosis and embolism; Z79.01 Long term (current) use of anticoagulants; Z79.899 Other long term (current) drug therapy; F41.9 Anxiety disorder, unspecified
CPT/HCPCS: 80048; 83735; 85025; 85652; 86140; 99284; A4216

== ENCOUNTER 2022-10-10 09:14 | Emergency (ER) | payer MEDICAID, SELFPAY ==
[2022-10-10 09:15] VITALS: BP 150/77; PULSE 76; RESP 26; TEMP 36.1; O2SAT 98; BMI 39.4
--- NOTE | 2022-10-10 09:33 | EKG12_ITS ---
Test Reason : CP Blood Pressure : / mmHG Vent. Rate : 073 BPM Atrial Rate : 073 BPM P-R Int : 176 ms QRS Dur : 082 ms QT Int : 404 ms P-R-T Axes : 051 056 023 degrees QTc Int : 445 ms Normal sinus rhythm Nonspecific ST abnormality Abnormal ECG Confirmed by PHAN DIAZ, NIKOLAS ([id number]), food expeditor SHERYL PRAJAPATI ([id number]) on 10/11/2022 9:56:56 AM Referred By: MEENA Confirmed By:NIKOLAS CHISHOLM MD
--- NOTE | 2022-10-10 09:33 | RAD_ITS ---
STUDY: X-RAY CHEST REASON FOR EXAM: Female, 51 years old. Chest pain TECHNIQUE: Single AP portable view of the chest. COMPARISON: Comparison is made with prior examination dated 09/13/2022. FINDINGS: EKG electrodes are seen. Mild increased linear markings at the left lung base with blunting of the left costophrenic angle. This may represent left basilar atelectasis. There is moderate cardiac enlargement. Normal mediastinum and myara. Normal visualized pulmonary arteries. There is atherosclerotic tortuosity of the aortic arch and descending thoracic aorta. There are diffuse degenerative changes of the visualized thoracic spine. Metallic pin is seen in the left humeral head suggestive of prior rotator cuff surgery. There is no demonstrated abnormality of the visualized soft tissue structures of the upper abdomen. RAD/Chest 1 View (Portable) IMPRESSION: Cardiomegaly. Mild increased markings at the left lung base with blunting of left costophrenic angle suggestive of atelectasis. Electronically Signed: George Kaplan MD at 10:37 EST ,
--- NOTE | 2022-10-10 09:35 | EDS_ITS ---
HPI History of Present Illness Chief Complaint: Chest Pain Informant: patient and spouse/S.O. Narrative Narrative: Persistent axial waning left-sided chest pressure since yesterday 5 AM. There are throughout the day. Overnight symptoms are left shoulder. Denies nausea. Denies pain down the arms. No history of [place]. History of hypertension hyperlipidemia. Remote tobacco in the past. History of paroxysmal A-fib on Eliquis. No history of heart cath. Stress test in the past. She states had walking pneumonia in September finished antibiotics was admitted for hypoxia. No current oxygenation requirements. Prior Similar Symptoms: No CVD Risk Factors: Positive for Hypertension and Hypercholesterolemia; Negative for Diabetes, Family History 1' </=55 or Smoking [facility] Medical History Alcohol abuse Allergic rhinitis Anemia Anxiety Atrial fibrillation Atrial flutter Bilateral knee pain Chronic kidney disease (CKD) COPD (chronic obstructive pulmonary disease) CPAP (continuous positive airway pressure) dependence Depression DVT (deep venous thrombosis) Esophageal spasm Essential (primary) hypertension Extremity cyanosis Fatty liver Former smoker Former smoker GERD (gastroesophageal reflux disease) Heart failure with preserved ejection fraction HFrEF (heart failure with reduced ejection fraction) Hiatal hernia History of back problems History of edema History of pain when walking HLD (hyperlipidemia) HTN (hypertension), benign Hyperthyroidism Hypomagnesemia Iron deficiency Migraines Morbid obesity with BMI of 40.0-44.9, adult Non-ischemic cardiomyopathy Obstructive sleep apnea Osteoarthritis PAF (paroxysmal atrial fibrillation) Panic attack Paroxysmal atrial fibrillation Patellofemoral syndrome of both knees PFO (patent foramen ovale) Pulmonary embolism (04/26/16) Secondary pulmonary arterial hypertension Tobacco user Tubular adenoma of colon Home Medications rosuvastatin 5 mg tablet (Crestor) 10 mg PO DAILY cholesterol 06/18/19 [History Last Taken 09/12/22] acetaminophen 500 mg tablet 1,000 mg PO DAILY PRN PRN Pain 1-10 Or Fever 08/01/20 [History Last Taken 09/13/22] cholecalciferol (vitamin D3) 10 mcg (400 unit) capsule 4,000 unit PO DAILY supplement 08/01/20 [History Last Taken 09/12/22] folic acid 1 mg tablet 1 mg PO DAILY supplement 08/01/20 [History Last Taken 09/12/22] multivitamin 1 tab PO DAILY DAILY 04/29/21 [History Last Taken 09/12/22] sildenafil (pulm.hypertension) 20 mg tablet 20 mg PO TID pulmonary HTN 05/01/21 [History Last Taken 09/12/22] fluticasone fur. 100 mcg-umeclid 62.5 mcg-vilant 25 mcg inhalat.powder (Trelegy Ellipta) 1 inh inhalation DAILY COPD 01/20/22 [History Last Taken 09/12/22] trazodone 100 mg tablet 100 mg PO QHS PRN PRN Insomnia 14 days #14 tabs 01/24/22 [Rx Last Taken 3 Days Ago ~09/10/22] ursodiol 300 mg capsule 300 mg PO BID #180 caps 02/04/22 [Rx Last Taken 09/12/22] bupropion HCl 300 mg 24 hr tablet, extended release 300 mg PO DAILY mood 05/16/22 [History Last Taken 09/12/22] apixaban 5 mg tablet (Eliquis) 5 mg PO BID blood thinner #60 tabs 05/20/22 [Rx Last Taken 09/12/22] flecainide 100 mg tablet 100 mg PO BID #60 tabs 06/11/22 [Rx Last Taken 09/12/22] celecoxib 100 mg capsule (Celebrex) 100 mg PO DAILY 07/18/22 [History Last Taken 09/12/22] empagliflozin 10 mg tablet (Jardiance) 10 mg PO DAILY #90 tabs 07/18/22 [Rx Last Taken 09/12/22] metoprolol tartrate 50 mg tablet 25 mg PO Q12 #60 tabs 07/18/22 [Rx Last Taken 09/12/22] pantoprazole 40 mg tablet,delayed release 40 mg PO QAM #30 tabs 08/13/22 [Rx Last Taken 09/12/22] amlodipine 5 mg tablet (Norvasc) 5 mg PO DAILY #30 tabs 09/11/22 [Rx Last Taken 09/13/22] furosemide 40 mg tablet 40 mg PO DAILY edema #90 tabs 09/18/22 [Rx Last Taken Unknown] oxycodone 5 mg tablet 5 mg PO Q8H PRN pain 3 days #10 tabs 09/28/22 [Rx Last Taken Unknown] prednisone 10 mg tablet 10 mg PO UD #33 tabs 09/28/22 [Rx Last Taken Unknown] Allergy/AdvReac Type Severity Reaction Status Date / Time doxycycline Allergy Hives Verified 10/10/22 09:15 hydrocodone [From Vicodin] AdvReac Itching Verified 10/10/22 09:15 Family History Mother Breast cancer Cancer lung cancer Father Cancer lung cancer Hypertension High cholesterol Surgical History H/O repair of rotator cuff History of History of cardiac catheterization History of cardioversion (05/23/22) History of cholecystectomy History of hysterectomy History of nasal surgery History of repair of hiatal hernia (12/2020) History of transesophageal echocardiography (MABEL) (05/23/22) Social History household members: spouse Smoking Status: Former smoker quit date: 01/11/22 alcohol intake: current alcohol intake frequency: 3 or more drinks per day Alcohol type: hard liquor details: Started drinking again recently, has been intermittent. Hard liquor drinks. substance use type: does not use ROS ROS ED Constitutional Constitutional ED: Denies chills, fever(s) or sweats Eyes Eyes: Denies change in vision ENT ENT ED: Denies dysphagia or sore throat Cardiovascular Cardiovascular: Reports chest pain; Denies leg edema, palpitations or racing heartbeat Respiratory/Chest Respiratory/Chest: Denies cough, dyspnea or dyspnea on exertion Gastrointestinal Gastrointestinal: Denies abdominal pain, diarrhea, nausea or vomiting Genitourinary Genitourinary ED: Denies dysuria, hematuria or urinary frequency Musculoskeletal Musculoskeletal: Denies back pain, extremity pain or neck pain Integumentary Denies rash or wounds Neurologic Neurologic: Denies headache(s), paresthesias or weakness EXAM Physical Exam Const Vital Signs: 10/10/22 09:15 10/10/22 09:19 10/10/22 09:57 Temperature 97.0 F L Temperature Source Temporal Pulse Rate 76 71 Respiratory Rate 26 H Respiratory Effort Short of Breath Respiratory Pattern Tachypnea Blood Pressure 150/77 H 125/66 H Blood Pressure Mean 101 Pulse Ox 98 Oxygen Delivery Method Room Air 10/10/22 10:05 10/10/22 12:46 10/10/22 13:45 Temperature Temperature Source Pulse Rate 72 Respiratory Rate 18 Respiratory Effort Respiratory Pattern Blood Pressure 125/65 H 112/51 L 124/69 H Blood Pressure Mean 71 87 Pulse Ox 95 Oxygen Delivery Method Room Air Positive well nourished and well developed General Appearance ED: well developed and NAD HEENT Reports moist mucous membranes normocephalic and atraumatic Eyes PERRL, EOMs intact bilaterally and conjunctivae normal General Eye ED: Yes normal appearance of both eyes Neck no lymphadenopathy and supple General: Negative for tenderness Chest Wall Chest: Negative for tenderness Resp normal respiratory effort and normal air movement Effort and Inspection: symmetric chest movement; Negative for respiratory distress Cardio regular rate, regular rhythm and no murmurs Peripheral Pulses: pulses 2+ throughout GI normal to inspection, nondistended, normoactive bowel sounds and non-tender Palpation: Negative for guarding or rebound tenderness present Back/Spine no CVA tenderness and no thoracic nor lumbar tenderness Extremity normal to inspection General Extremety ED: Negative for edema or tenderness General Extremity: Negative for edema Neuro oriented x3 and no sensory deficits noted Sensorium / Orientation: awake and alert Skin no rashes or lesions noted and no wounds Heart Score History: Slightly/Non-Suspicious ECG: Normal Age: >45 - <65 years Risk Factors: >/= 3 Risk Factors or History of CAD Troponin: </= Normal Limit Score: 3 MDM MDM MDM Narrative Medical decision making narrative: Interventions / MDM: Differential diagnosis: ACS, musculoskeletal chest pain, atypical chest pain, pericarditis, pulmonary embolism Diagnosis considered but do not suspect: My EKG interpretation: Normal sinus rhythm chronic changes. Imaging independently reviewed and interpreted by myself: 1 view chest x-ray atelectasis noted lower base. External documents reviewed: Hospitalization from last month and previous cardiology notes from September also last month. May 2022, admitted atrial fibrillation and MABEL with cardioversion. EF was 40% at that time. Sent home on metoprolol, Eliquis, flecainide. Test considered but not ordered:N/A ED course: Patient treated with nitroglycerin with no improvement. She was given morphine for symptom control cardio work-up: Negative x2. She reporting sharp symptoms shortness of breath, she is on Eliquis therefore less likely PE. She had recent illness with symptoms started yesterday pericarditis was in the differential. She had mild pericardial effusion from her MABEL this past May. I reperformed bedside ultrasound noted minimal pericardial effusion. I added a CRP that was elevated at 17. Currently on steroids. I spoke with on-call continuous improvement specialist Dr. Dwyer agreed with performing echocardiogram through the ED this was obtained, discussed with him findings there is mild pericardial effusion however not enlarged, she her EF is now 55 to 60%. Discussed plan of care for creatinine now 1.3 she is typically higher. He recommended as needed NSAIDs for short-term and rechecking her BMP as an outpatient. She is on Celebrex previously that she has at home she will use this once a day as needed. She will follow with Dr. Benavides. Discussed the possibility of pericarditis with no EKG changes with her symptoms. Negative troponin therefore no myocarditis. return precaution discussed. All questions were answered. Re-evaluation: stable and improved Disposition discussed with patient/family/significant other: Patient and significant other Case discussed with consulting clinician: Cardiology, Dr. Dwyer Lab Data Attestation: I reviewed the patient's lab results. Labs: Laboratory Results - last 24 hr 10/10/22 10/10/22 10/10/22 09:23 09:23 09:23 WBC 11.0 RBC 4.51 Hgb 14.1 Hct 43.9 MCV 97.3 MCH 31.3 MCHC 32.1 RDW Std Deviation 53.3 H RDW Coeff of [place] 14.9 H Plt Count 175 MPV 9.5 Immature Gran % (Auto) 1.900 H Neut % (Auto) 81.7 H Lymph % (Auto) 8.0 L [place] % (Auto) 5.8 Eos % (Auto) 2.1 Baso % (Auto) 0.5 Absolute Neuts (auto) 9.0 H Absolute Lymphs (auto) 0.88 Nucleated RBC % 0 Sodium 139 Potassium 4.0 Chloride 102 Carbon Dioxide 25.0 Anion Gap 12 BUN 27 H Creatinine 1.33 H Estim Creat Clear Calc 47.57 Est GFR (MDRD) Af Amer 54 L Est GFR (MDRD) Non-Af 44 L BUN/Creatinine Ratio 20.3 H Glucose 104 Calcium 9.2 Troponin I High Sens 11 C-React Prot Ext Range 17.60 H 10/10/22 12:00 WBC RBC Hgb Hct MCV MCH MCHC RDW Std Deviation RDW Coeff of [place] Plt Count MPV Immature Gran % (Auto) Neut % (Auto) Lymph % (Auto) [place] % (Auto) Eos % (Auto) Baso % (Auto) Absolute Neuts (auto) Absolute Lymphs (auto) Nucleated RBC % Sodium Potassium Chloride Carbon Dioxide Anion Gap BUN Creatinine Estim Creat Clear Calc Est GFR (MDRD) Af Amer Est GFR (MDRD) Non-Af BUN/Creatinine Ratio Glucose Calcium Troponin I High Sens 9 C-React Prot Ext Range Radiography Diagnostic Testing: Clinical Impression(s) from Imaging Studies Chest X-Ray 10/10/22 09:33 IMPRESSION: Cardiomegaly. Mild increased markings at the left lung base with blunting of left costophrenic angle suggestive of atelectasis. Electronically Signed: George Kaplan MD at 10:37 EST , Echocardiogram 10/10/22 10:30 Interpretation Summary The estimated ejection fraction is 55-60 %. Trivial pericardial effusion. Ordering Physician: Michael Valdez Referring Physician: Didier Watkins Performed By: Trip Jurado RCS Initial EKG: Attestation: I personally reviewed and interpreted this EKG as follows: Comments: Sinus rate of 73, no ST changes or T wave inversions V1 V2,isolated V3. Similar changes from September 15, 2022. Discharge Plan Triage Chief Complaint: Chest Pain ED Provider: Michael Valdez Dx/Rx/DC Orders Clinical Impression: Chest pain of pericarditis, Non-ischemic cardiomyopathy, PAF (paroxysmal atrial fibrillation) Instructions: ED Chest Pain, Uncertain Cause, ED Pericarditis Prescriptions: No Action rosuvastatin [Crestor] 5 mg tablet 10 mg PO DAILY sildenafil (pulm.hypertension) 20 mg tablet 20 mg PO TID pantoprazole 40 mg tablet,delayed release (DR/EC) 40 mg PO QAM Qty: 30 12RF flecainide 100 mg tablet 100 mg PO BID Qty: 60 11RF celecoxib [Celebrex] 100 mg capsule 100 mg PO DAILY Jardiance 10 mg tablet 10 mg PO DAILY Qty: 90 3RF metoprolol tartrate 50 mg tablet 25 mg PO Q12 Qty: 60 0RF amlodipine [Norvasc] 5 mg tablet 5 mg PO DAILY Qty: 30 11RF acetaminophen 500 MG tablet 1,000 mg PO DAILY PRN PRN (Reason: Pain 1-10 Or Fever) folic acid 1 MG tablet 1 mg PO DAILY cholecalciferol (vitamin D3) 10 MCG capsule 4,000 unit PO DAILY multivitamin Tablet 1 tab PO DAILY MDD SUPPLEMEMT Trelegy Ellipta 100-62.5-25 mcg blister with device 1 inh INHALATION DAILY Label Comments: INHALE 1 (ONE) PUFF FOLLOWED BY [facility] [employer]e trazodone 100 mg Tablet 100 mg PO QHS PRN PRN (Reason: Insomnia) 14 Days Qty: 14 0RF bupropion HCl 300 mg tablet extended release 24 hr 300 mg PO DAILY prednisone 10 mg tablet 10 mg PO UD Qty: 33 0RF Rx Instructions: Take 4 tablets daily for 3 days, then 3 daily for 3 days, then 2 daily for 3 days, then 1 a day for 3 days then 1 QOD for 3 doses. oxycodone 5 mg tablet 5 mg PO Q8H PRN (Reason: pain) 3 Days Qty: 10 0RF ursodiol 300 mg capsule 300 mg PO BID Qty: 180 3RF Eliquis 5 mg tablet 5 mg PO BID Qty: 60 11RF furosemide 40 mg tablet 40 mg PO DAILY Qty: 90 3RF Primary Care Provider: Didier Watkins Referrals: Luis Benavides MD [Med Staff - Active Staff] - 1 Week Didier Watkins MD [Primary Care Provider] - 1 Week Activity Restrictions/Additional Instructions: Creatinine 1.33 today. Cardiac work-up is negative. Your echocardiogram performed in the ED discussion with Dr. Dwyer, residual mild pericardial effusion. Ejection fraction now 55 to 60%. Discussed restarting your NSAID as needed for which he of Celebrex use once a day as needed recheck your creatinine in 1 week. \Her EKG does not show any objective pericarditis, finish your steroids. Follow-up with Dr. Benavides. Return if worsening symptoms. Disposition Disposition: Home, Self Care Discharge Date/Time: 10/10/22 13:47
[2022-10-10 09:46] LABS: Absolute Lymphocyte Count 0.88 X10^3/uL (0.83-4.51); Basophil# 0.05 X10^3/uL; Basophil% 0.5 % (0-1); Eosinophil# 0.23 X10^3/uL; Eosinophils% 2.1 % (0-5); Hematocrit 43.9 % (37-47); Hemoglobin 14.1 g/dL (12.0-15.0); Lymphocyte # 0.88 X10^3/ul (0.83-4.51); Mean Corp Hgb Conc 32.1 g/dL (32-36); Mean Corpuscular Hgb 31.3 pg (27.0-32.0); Mean Corpuscular Volume 97.3 fL (81-99); Mean Platelet Vol. 9.5 fl (6.2-12.0); Monocyte# 0.64 X10^3/uL; Monocyte% 5.8 % (0-10); NRBC Flagged by Analyzer 0 % (0-5); Neutrophil # 8.99 X10^3/uL (2.7-7.7); Neutrophil % 81.7 % (47-70); Platelet Count 175 K/mm3 (150-450); RBC Distribution Width CV 14.9 % (11.6-14.6); RBC Distribution Width SD 53.3 fl (35.1-43.9); Red Blood Count 4.51 M/mm3 (4.2-5.4)
[2022-10-10] MEDS: 0.9% Normal Saline 1,000 ML 30 ML IV (09:53)
[2022-10-10] MEDS: Aspirin 81 MG TAB.CHEW 324 MG PO (09:53)
[2022-10-10 09:57] VITALS: BP 125/66; PULSE 71
[2022-10-10] MEDS: Nitroglycerin SL (ED/IMG/CATH) 0.4 MG TABLET SL ×2 (09:57→10:05)
[2022-10-10 10:03] LABS: Anion Gap 12 (5-15); BUN 27 mg/dL (7-18); BUN/Creat Ratio 20.3 RATIO (10-20); Calcium,Total 9.2 mg/dL (8.5-10.1); Chloride 102 mmol/L (98-107); Creatinine, Serum 1.33 mg/dL (0.55-1.02); EST Glomerular Filtration Rate 44 mL/min (>60); Est Glom Filt Rate - Afr Amer 54 mL/min (>60); Estimated Creatinine Clearance 47.57 ml/min; Glucose 104 mg/dL (74-106); Sodium Level 139 mmol/L (136-145); Troponin-I HS (w/2H Reflex) 11 pg/mL (3.0-54.0)
[2022-10-10 10:05] VITALS: BP 125/65; PULSE 72
[2022-10-10] MEDS: Morphine 4 MG/ML Syringe IV (10:22)
--- NOTE | 2022-10-10 10:30 | ECHOCS_ITS ---
Reason For Study: SOB Procedure This was a 2D Doppler, Color Flow transthoracic echocardiogram. The study was technically difficult. Contrast injection was performed. Pt had a hard time in proper position due to extreme pain. Exam performed portable in ED. Left Ventricle Normal LV size. The estimated ejection fraction is 55-60 %. Unable to assess diastolic dysfunction. No regional wall motion abnormalities noted. Right Ventricle Normal RV size. Normal systolic function. Atria Normal left atrium. Normal right atrium. No doppler evidence for ASD. Mitral Valve There is no mitral valve stenosis. No mitral valve insufficiency. Tricuspid Valve There is no tricuspid stenosis. Unable to estimate RV systolic pressure due to insufficient tricuspid regurgitant envelope. Trivial tricuspid valve insufficiency. Aortic Valve Trisinus/trileaflet aortic valve. There is no aortic stenosis. No aortic valve insufficiency. Pulmonic Valve There is no pulmonic valvular stenosis. No pulmonic valve insufficiency. Great Vessels Normal aortic root. Pericardium/Pleural Trivial pericardial effusion. Medication Diluted definity 2ml given slow IV push to enhance endocardial definition. MMode/2D Measurements & Calculations LVIDd: 5.0 cm IVSd: 1.2 cm LA dimension: 5.0 cm LVIDs: 3.4 cm LVPWd: 1.1 cm FS: 33.0 % LAV(MOD-bp): 57.1 ml LA A4 area: 21.8 cm2 LAV(MOD-bp) Indexed: 25.6 ml/m2 LAV(MOD-sp2): 43.2 ml LAV(MOD-sp4): 65.3 ml Time Measurements MV dec time: 0.32 sec Doppler Measurements & Calculations MV E max nino: 114.6 cm/sec Lat Peak E' Nino: 3.4 cm/sec Med Peak E' Nino: 7.1 cm/sec MV A max nino: 128.4 cm/sec E/E' lat: 33.4 E/E' med: 16.1 MV E/A: 0.89 MV V2 max: 141.8 cm/sec MV P1/2t max nino: 121.4 cm/sec Ao V2 max: 142.5 cm/sec MV max P.0 mmHg MV P1/2t: 112.8 msec Ao max P.1 mmHg MV V2 mean: 82.7 cm/sec MV dec slope: 315.2 cm/sec2 MV mean P.1 mmHg MV V2 VTI: 46.0 cm MVA(P1/2t): 1.9 cm2 LV V1 max: 123.0 cm/sec PA V2 max: 113.1 cm/sec LV V1 max P.1 mmHg ECHO/Echo Complete W/ Contrast Interpretation Summary The estimated ejection fraction is 55-60 %. Trivial pericardial effusion. Ordering Physician: Michael Valdez Referring Physician: Didier Watkins Performed By: Trip uJrado RCS
[2022-10-10 11:40] LABS: Reflex Troponin-HS? (from REC) Y
[2022-10-10 12:23] LABS: Troponin-I HS 9 pg/mL (3.0-54.0)
[2022-10-10 12:46] VITALS: BP 112/51; RESP 18; O2SAT 95
[2022-10-10 13:45] VITALS: BP 124/69
== END 2022-10-10 13:47 | disposition home or self-care (01) ==
PROVIDERS: Emergency Provider Emergency Medicine; PCP Family Medicine; Visit Provider Emergency Medicine
DX: I31.9 Disease of pericardium, unspecified (principal); J44.9 Chronic obstructive pulmonary disease, unspecified; I13.0 Hypertensive heart and chronic kidney disease with heart failure and stage 1 through stage 4 chronic kidney disease, or unspecified chronic kidney disease; I42.8 Other cardiomyopathies; I50.42 Chronic combined systolic (congestive) and diastolic (congestive) heart failure; I27.21 Secondary pulmonary arterial hypertension; I48.0 Paroxysmal atrial fibrillation; E78.00 Pure hypercholesterolemia, unspecified; N18.9 Chronic kidney disease, unspecified; Z79.01 Long term (current) use of anticoagulants; Z79.899 Other long term (current) drug therapy; Z87.891 Personal history of nicotine dependence
CPT/HCPCS: 71045; 80048; 84484; 85025; 86140; 93005; 93306; 96374; 99284; J7030; Q9957; A4216; C8929

== ENCOUNTER → 2022-10-17 | Outpatient (CLI) | payer MEDICAID, SELFPAY ==
[2022-10-17 17:54] LABS: Anion Gap 8 (5-15); BUN 25 mg/dL (7-18); BUN/Creat Ratio 18.7 RATIO (10-20); Calcium,Total 8.6 mg/dL (8.5-10.1); Chloride 107 mmol/L (98-107); Creatinine, Serum 1.34 mg/dL (0.55-1.02); EST Glomerular Filtration Rate 44 mL/min (>60); Est Glom Filt Rate - Afr Amer 53 mL/min (>60); Glucose 97 mg/dL (74-106); Potassium 4.3 mmol/L (3.5-5.1); Sodium Level 138 mmol/L (136-145)
== END | disposition home or self-care (01) ==
PROVIDERS: PCP Family Medicine; Visit Provider Nurse Practitioner Family
DX: M51.37 Other intervertebral disc degeneration, lumbosacral region (principal)
CPT/HCPCS: 36415; 80048

== ENCOUNTER 2022-11-09 12:38 | Emergency (ER) | payer MEDICAID, SELFPAY ==
[2022-11-09 12:40] VITALS: BP 150/83; PULSE 97; RESP 18; TEMP 36.1; O2SAT 94; BMI 40.2
--- NOTE | 2022-11-09 13:27 | RAD_ITS ---
EXAM: XR CHEST, 2 VIEWS CLINICAL INDICATION: cough TECHNIQUE: Frontal and lateral views of the chest. This report was created using [employer] report generation technology. COMPARISON: 10/10/2022. CT scan of the chest 09/13/2022. FINDINGS: LUNGS AND PLEURAL SPACES: Coarse linear opacities in the left upper lobe corresponding to some scarring seen on the prior CT scan. Mild prominence of interstitial markings unchanged. No pneumothorax. No effusion. HEART: Stable cardiomegaly. MEDIASTINUM: Central airways and mediastinal contour are unremarkable. BONES/JOINTS: Unremarkable. SOFT TISSUES: Unremarkable. RAD/Chest PA and Lateral IMPRESSION: 1. Coarse linear opacities in the left upper lobe corresponding to some scarring seen on the prior CT scan. 2. Stable cardiomegaly. 3. Mild prominence of interstitial markings unchanged. Electronically Signed: García Acevedo MD at 15:02 EST ,
--- NOTE | 2022-11-09 13:27 | CT_ITS ---
EXAM: CT ABDOMEN AND PELVIS WITH INTRAVENOUS CONTRAST CLINICAL INDICATION: RUQ abd pain TECHNIQUE: Helically acquired images were obtained of the abdomen and pelvis with intravenous contrast. This CT exam was performed using one or more of the following dose reduction techniques: automated exposure control, adjustment of the mA and/or kV according to patient size, and/or use of iterative reconstruction technique. This report was created using [employer] report generation technology. CONTRAST: 100 cc of Isovue-370 IV. RADIATION DOSE: CTDIvol = 17.09 mGy, DLP = 2313.75 mGy-cm. COMPARISON: 08/01/2020. FINDINGS: LOWER THORAX: Postoperative changes of the gastroesophageal junction status post hiatal hernia repair. Lung bases are clear. No cardiomegaly. No significant pericardial effusion. ABDOMEN: LIVER: Unremarkable. Homogeneous. No focal mass. GALLBLADDER AND BILE DUCTS: Cholecystectomy. No intra- or extrahepatic biliary ductal dilation. PANCREAS: Unremarkable. No focal cystic or solid mass. SPLEEN: Unremarkable. Normal size without focal cystic or solid mass. ADRENALS: Unremarkable. No nodules. KIDNEYS AND URETERS: Unremarkable. Normal renal size and position. No hydronephrosis. STOMACH AND BOWEL: Scattered diverticula without diverticulitis. No stomach or bowel distention. PELVIS: APPENDIX: Normal appendix. BLADDER: Unremarkable. REPRODUCTIVE: Hysterectomy. ABDOMEN and PELVIS: INTRAPERITONEAL SPACE: Unremarkable. No ascites or other fluid collection. No free air. BONES/JOINTS: Unremarkable. No suspicious lytic or blastic abnormality. SOFT TISSUES: Unremarkable. No discrete abdominal or pelvic wall hernia. VASCULATURE: Unremarkable. Abdominal aorta is non-dilated. LYMPH NODES: Unremarkable. No enlarged lymph nodes. CT/Abdomen/Pelvis W IV Cont ONLY IMPRESSION: 1. Scattered diverticula without diverticulitis. 2. Hysterectomy. 3. Cholecystectomy. 4. No acute abdominal pelvic abnormality. Electronically Signed: García Acevedo MD at 15:09 EST ,
[2022-11-09] MEDS: Acetaminophen 325 MG Tablet 650 MG PO (13:32)
[2022-11-09 13:34] LABS: Absolute Lymphocyte Count 0.42 X10^3/uL (0.83-4.51); Absolute Neutrophil Count 6.8 X10^3/uL (2.0-7.7); Basophil# 0.07 X10^3/uL; Basophil% 0.9 % (0-1); Eosinophil# 0.12 X10^3/uL; Eosinophils% 1.5 % (0-5); Hemoglobin 13.3 g/dL (12.0-15.0); Lymphocyte # 0.42 X10^3/ul (0.83-4.51); Lymphocyte % 5.2 % (19-41); Mean Corp Hgb Conc 32.4 g/dL (32-36); Mean Corpuscular Volume 98.8 fL (81-99); Mean Platelet Vol. 9.1 fl (6.2-12.0); Monocyte# 0.58 X10^3/uL; Monocyte% 7.2 % (0-10); NRBC Flagged by Analyzer 0 % (0-5); Neutrophil # 6.83 X10^3/uL (2.7-7.7); Neutrophil % 84.5 % (47-70); POSITIVE DIFFERENTIAL YES; Platelet Count 187 K/mm3 (150-450); RBC Distribution Width CV 14.6 % (11.6-14.6); RBC Distribution Width SD 52.5 fl (35.1-43.9); Red Blood Count 4.15 M/mm3 (4.2-5.4); White Blood Count 8.1 K/mm3 (4.4-11.0)
[2022-11-09 13:35] VITALS: BP 123/70; PULSE 56; RESP 16; O2SAT 93
[2022-11-09 13:36] LABS: Differential Indicated SCAN CRITERIA MET
[2022-11-09 13:51] LABS: ALB/GLOB Ratio 0.8 RATIO (0.9-2.4); AST(SGOT) 13 U/L (15-37); Alanine Aminotransfer ALT/SGPT 16 U/L (13-56); Albumin, Serum 3.4 g/dL (3.2-5.0); Alkaline Phosphatase 93 U/L (45-117); Anion Gap 8 (5-15); BUN 22 mg/dL (7-18); BUN/Creat Ratio 17.5 RATIO (10-20); Calcium,Total 8.9 mg/dL (8.5-10.1); Chloride 107 mmol/L (98-107); Creatinine, Serum 1.26 mg/dL (0.55-1.02); EST Glomerular Filtration Rate 47 mL/min (>60); Est Glom Filt Rate - Afr Amer 57 mL/min (>60); Estimated Creatinine Clearance 49.64 ml/min; Glucose 114 mg/dL (74-106); Lipase 108 U/L (73-393); Potassium 4.2 mmol/L (3.5-5.1); Protein, Total 7.4 g/dL (6.4-8.2); Sodium Level 139 mmol/L (136-145)
[2022-11-09 14:08] LABS: Differential Comment SCANNED
[2022-11-09 15:00] VITALS: BP 121/68; PULSE 56; RESP 18; O2SAT 92
[2022-11-09 15:01] LABS: Mucous, Urine 0 SEEN /hpf (<or=2+); Red Blood Cells-Urine 0 SEEN /hpf (0-5); White Blood Cells 0 SEEN /hpf (0-5)
[2022-11-09 15:05] LABS: Color, Urine Yellow (Yellow); Glucose, Dipstick 1000 mg/dl (Normal); Ketone-Dipstick Negative (Negative); Leukocyte Esterase-Dipstick Negative /ul (Negative); Nitrite-Dipstick Negative (Negative); Occult Blood-Urine 10 /ul (Negative); Protein-Dipstick 15 mg/dl (Negative); Urine Bilirubin Dipstick Negative (Negative); Urine Clarity Clear (Clear); Urine Urobilinogen Normal (Normal)
--- NOTE | 2022-11-09 15:07 | EDS_ITS ---
HPI HPI - GI History of Present Illness Chief Complaint: Abd Pain Informant: patient Narrative Narrative: Patient is a 52-year-old female with history of atrial fibrillation, CKD, hypertension, nonischemic cardiomyopathy, heart failure with reduced ejection fraction, esophageal spasm and fatty liver/liver fibrosis presenting with right- sided abdominal pain. She states she woke up with that on (2 days ago). It seems to be worse with movements especially if she sneezes or coughs. It is better with rest. She denies any nausea, vomiting, diarrhea or constipation. Denies any urinary symptoms. Does have a history of cholec ystectomy. She initially went to urgent care who then instructed her to come to the emergency room for further evaluation. Patient does not take anything for medicine prior to arrival. She states she takes a lot of medicine at baseline and is often worried about taking additional medicines. Denies any fever or chills. Patient denies any trauma or injury. She denies any physical activities. Denies any associated rash. No other complaints at this time. [facility] Medical History Alcohol abuse Allergic rhinitis Anemia Anxiety Atrial fibrillation Atrial flutter Bilateral knee pain Chronic kidney disease (CKD) COPD (chronic obstructive pulmonary disease) CPAP (continuous positive airway pressure) dependence Depression DVT (deep venous thrombosis) Esophageal spasm Essential (primary) hypertension Extremity cyanosis Fatty liver Former smoker Former smoker GERD (gastroesophageal reflux disease) Heart failure with preserved ejection fraction HFrEF (heart failure with reduced ejection fraction) Hiatal hernia History of back problems History of edema History of pain when walking HLD (hyperlipidemia) HTN (hypertension), benign Hyperthyroidism Hypomagnesemia Iron deficiency Migraines Morbid obesity with BMI of 40.0-44.9, adult Non-ischemic cardiomyopathy Obstructive sleep apnea Osteoarthritis PAF (paroxysmal atrial fibrillation) Panic attack Paroxysmal atrial fibrillation Patellofemoral syndrome of both knees PFO (patent foramen ovale) Pulmonary embolism (04/26/16) Secondary pulmonary arterial hypertension Tobacco user Tubular adenoma of colon Home Medications rosuvastatin 5 mg tablet (Crestor) 10 mg PO DAILY cholesterol 06/18/19 [History Last Taken 09/12/22] acetaminophen 500 mg tablet 1,000 mg PO DAILY PRN PRN Pain 1-10 Or Fever 08/01/20 [History Last Taken 09/13/22] cholecalciferol (vitamin D3) 10 mcg (400 unit) capsule 4,000 unit PO DAILY supplement 08/01/20 [History Last Taken 09/12/22] folic acid 1 mg tablet 1 mg PO DAILY supplement 08/01/20 [History Last Taken 09/12/22] multivitamin 1 tab PO DAILY DAILY 12/28/20 [History Last Taken 09/12/22] sildenafil (pulm.hypertension) 20 mg tablet 20 mg PO TID pulmonary HTN 05/01/21 [History Last Taken 09/12/22] fluticasone fur. 100 mcg-umeclid 62.5 mcg-vilant 25 mcg inhalat.powder (Trelegy Ellipta) 1 inh inhalation DAILY COPD 01/20/22 [History Last Taken 09/12/22] trazodone 100 mg tablet 100 mg PO QHS PRN PRN Insomnia 14 days #14 tabs 01/24/22 [Rx Last Taken 3 Days Ago ~09/10/22] ursodiol 300 mg capsule 300 mg PO BID #180 caps 02/04/22 [Rx Last Taken 09/12/22] bupropion HCl 300 mg 24 hr tablet, extended release 300 mg PO DAILY mood 05/16/22 [History Last Taken 09/12/22] apixaban 5 mg tablet (Eliquis) 5 mg PO BID blood thinner #60 tabs 05/20/22 [Rx Last Taken 09/12/22] celecoxib 100 mg capsule (Celebrex) 100 mg PO DAILY 07/18/22 [History Last Taken 09/12/22] empagliflozin 10 mg tablet (Jardiance) 10 mg PO DAILY #90 tabs 07/18/22 [Rx Last Taken 09/12/22] pantoprazole 40 mg tablet,delayed release 40 mg PO QAM #30 tabs 08/13/22 [Rx Last Taken 09/12/22] amlodipine 5 mg tablet (Norvasc) 5 mg PO DAILY #30 tabs 09/11/22 [Rx Last Taken 09/13/22] oxycodone 5 mg tablet 5 mg PO Q8H PRN pain 3 days #10 tabs 09/28/22 [Rx Last Taken Unknown] furosemide 40 mg tablet 40 mg PO DAILY PRN edema #90 tabs 10/23/22 [Rx Last Taken Unknown] metoprolol tartrate 25 mg tablet 25 mg PO Q12 #180 tabs 10/23/22 [Rx Last Taken Unknown] flecainide 100 mg tablet 50 mg PO BID #60 tabs 10/28/22 [Rx Last Taken Unknown] Allergy/AdvReac Type Severity Reaction Status Date / Time doxycycline Allergy Hives Verified 11/09/22 12:42 hydrocodone [From Vicodin] AdvReac Itching Verified 11/09/22 12:42 Family History Mother Breast cancer Cancer lung cancer Father Cancer lung cancer Hypertension High cholesterol Surgical History H/O repair of rotator cuff History of History of cardiac catheterization History of cardioversion (05/23/22) History of cholecystectomy History of hysterectomy History of nasal surgery History of repair of hiatal hernia (12/2020) History of transesophageal echocardiography (MABEL) (05/23/22) Social History household members: spouse Smoking Status: Former smoker quit date: 01/11/22 alcohol intake: current alcohol intake frequency: 3 or more drinks per day Alcohol type: hard liquor details: Started drinking again recently, has been intermittent. Hard liquor drinks. substance use type: does not use ROS ROS ED Constitutional Constitutional ED: Denies chills or fever(s) ENT ENT ED: Reports other Details: Chronic allergies ; Denies sore throat Cardiovascular Cardiovascular: Denies chest pain Respiratory/Chest Respiratory/Chest: Reports cough; Denies dyspnea Gastrointestinal Gastrointestinal: Reports abdominal pain; Denies constipation, diarrhea, nausea or vomiting Genitourinary Genitourinary ED: Denies dysuria or hematuria Musculoskeletal Musculoskeletal: Denies arthralgias or myalgias Integumentary Denies rash Neurologic Neurologic: Denies headache(s) Hematologic/Lymphatic Hematologic/Lymphatic: Reports easy bleeding and easy bruising EXAM Physical Exam Const Vital Signs: 11/09/22 12:40 11/09/22 13:35 11/09/22 15:00 Temperature 97 F L Temperature Source Temporal Pulse Rate 97 56 L 56 L Respiratory Rate 18 16 18 Blood Pressure 150/83 H 123/70 H 121/68 H Blood Pressure Mean 105 87 85 Pulse Ox 94 93 92 Oxygen Delivery Method Room Air Room Air Room Air 11/09/22 16:19 Temperature Temperature Source Pulse Rate 80 Respiratory Rate 16 Blood Pressure 120/80 Blood Pressure Mean Pulse Ox 99 Oxygen Delivery Method Positive well nourished and well developed General Appearance ED: well developed and NAD; Negative for pallor HEENT Reports moist mucous membranes normocephalic Eyes PERRL and EOMs intact bilaterally Neck supple Resp normal respiratory effort and clear to auscultation bilaterally Auscultation: Negative for wheezes Cardio regular rate, regular rhythm and no murmurs GI Inspection: Negative for abdominal distention Auscultation: normoactive bowel sounds Palpation: soft and tender RUQ; Negative for guarding, rigid or rebound tenderness present Back/Spine no CVA tenderness Thoracic Spine / Upper Back: Negative for thoracic spinal tenderness Lumbar Spine / Lower Back: Negative for lumbar spinal tenderness Extremity full ROM General Extremety ED: Negative for edema General Extremity: Negative for edema Neuro moves all extremities Sensorium / Orientation: alert, oriented to person, oriented to place and oriented to time Motor Exam: Negative for general weakness Psych mental status grossly normal and thought process normal Skin General Skin Exam: Negative for jaundice or pallor Rashes: no rashes MDM MDM MDM Narrative Medical decision making narrative: Patient is evaluated for right-sided abdominal pain. She has pain in the right upper quadrant with palpation but her pain seems to be worse with movement. Differential includes muscle skeletal pain, choledocholithiasis, acute hepatitis, abdominal wall hematoma, pyelonephritis, referred pleuritic pain and shingles prodrome. Patient's vital signs on arrival are significant for mild hypertension however her vital signs normalized while in the emergency room. Patient declines pain medicine in the ER states she drove here. She is given a dose of Tylenol in the ER. She states that she is feeling better because she is not really moving around is not sure if the Tylenol helped. CBC, CMP and lipase largely unremarkable. She is mildly elevated creatinine 1.26 which is her baseline. Urinalysis consistent with contamination and not consistent with infection. Chest x-ray returned by myself as well as radiology does not show any acute process including infiltrate to explain her symptoms. She is chronically anticoagulated with Eliquis and have a low suspicion for pulmonary emboli as a cause of her pain. It is not particularly pleuritic. CT of the abdomen pelvis is obtained which shows prior hysterectomy cholecystectomy, scattered diverticula without diverticulitis and no other acute process. Patient counseled this time we will treat as muscle skeletal pain as I do not have an other obvious cause. No signs of ischemia based on lab work, vital signs or imaging. She is comfortable with this. She is counseled that this pain could be the prodrome of shingles but given that has been present for 3 days and there is no rash of the lower suspicion for this. Counseled to keep an eye out for rash. Given return precautions. She verbalizes agreement understanding with this plan. She will use Lidoderm patches at home as well as Tylenol. She states she has Lidoderm patches and does not need one here. Lab Data Attestation: I reviewed the patient's lab results. Labs: Laboratory Results - last 24 hr 11/09/22 11/09/22 11/09/22 13:27 13:27 14:57 WBC 8.1 RBC 4.15 L Hgb 13.3 Hct 41.0 MCV 98.8 MCH 32.0 MCHC 32.4 RDW Std Deviation 52.5 H RDW Coeff of [place] 14.6 Plt Count 187 MPV 9.1 Immature Gran % (Auto) 0.700 Neut % (Auto) 84.5 H Lymph % (Auto) 5.2 L [place] % (Auto) 7.2 Eos % (Auto) 1.5 Baso % (Auto) 0.9 Absolute Neuts (auto) 6.8 Absolute Lymphs (auto) 0.42 L Nucleated RBC % 0 Differential Comment SCANNED Sodium 139 Potassium 4.2 Chloride 107 Carbon Dioxide 24.0 Anion Gap 8 BUN 22 H Creatinine 1.26 H Estim Creat Clear Calc 49.64 Est GFR (MDRD) Af Amer 57 L Est GFR (MDRD) Non-Af 47 L BUN/Creatinine Ratio 17.5 Glucose 114 H Calcium 8.9 Total Bilirubin 1.00 AST 13 L ALT 16 Alkaline Phosphatase 93 Total Protein 7.4 Albumin 3.4 Globulin 4.0 Albumin/Globulin Ratio 0.8 L Lipase 108 Urine Color Yellow Urine Clarity Clear Urine pH 5.0 Ur Specific [place] 1.020 Urine Protein 15 H Urine Glucose (UA) 1000 H Urine Ketones Negative Urine Occult Blood 10 H Urine Nitrite Negative Urine Bilirubin Negative Urine Urobilinogen Normal Ur Leukocyte Esterase Negative Urine RBC 0 SEEN Urine WBC 0 SEEN Ur Squamous Epith Cells 5-10 SEEN Urine Bacteria 1+ Urine Mucus 0 SEEN Radiography Chest X-Ray - ED: 2 View, Read by ED Physician, Read by Radiologist and No Acute Disease Diagnostic Testing: Clinical Impression(s) from Imaging Studies Abdomen/Pelvis CT 11/09/22 13:27 IMPRESSION: 1. Scattered diverticula without diverticulitis. 2. Hysterectomy. 3. Cholecystectomy. 4. No acute abdominal pelvic abnormality. Electronically Signed: García Acevedo MD at 15:09 EST , Chest X-Ray 11/09/22 13:27 IMPRESSION: 1. Coarse linear opacities in the left upper lobe corresponding to some scarring seen on the prior CT scan. 2. Stable cardiomegaly. 3. Mild prominence of interstitial markings unchanged. Electronically Signed: García Acevedo MD at 15:02 EST , Discharge Plan Triage Chief Complaint: Abd Pain ED Provider: Giovanna Hernandez Dx/Rx/DC Orders Clinical Impression: Abdominal pain of unknown cause, Strain of abdominal wall Instructions: ED Abdominal Pain Unkn Cause Fem, ED Muscle Strain, Abdomen Prescriptions: No Action rosuvastatin [Crestor] 5 mg tablet 10 mg PO DAILY sildenafil (pulm.hypertension) 20 mg tablet 20 mg PO TID pantoprazole 40 mg tablet,delayed release (DR/EC) 40 mg PO QAM Qty: 30 12RF celecoxib [Celebrex] 100 mg capsule 100 mg PO DAILY Hold Instructions: MANJINDER Jardiance 10 mg tablet 10 mg PO DAILY Qty: 90 3RF amlodipine [Norvasc] 5 mg tablet 5 mg PO DAILY Qty: 30 11RF furosemide 40 mg tablet 40 mg PO DAILY PRN (Reason: edema) Qty: 90 3RF metoprolol tartrate 25 mg tablet 25 mg PO Q12 Qty: 180 3RF flecainide 100 mg tablet 50 mg PO BID Qty: 60 11RF acetaminophen 500 MG tablet 1,000 mg PO DAILY PRN PRN (Reason: Pain 1-10 Or Fever) folic acid 1 MG tablet 1 mg PO DAILY cholecalciferol (vitamin D3) 10 MCG capsule 4,000 unit PO DAILY multivitamin Tablet 1 tab PO DAILY MDD SUPPLEMEMT Trelegy Ellipta 100-62.5-25 mcg blister with device 1 inh INHALATION DAILY Label Comments: INHALE 1 (ONE) PUFF FOLLOWED BY [employer] [facility]e trazodone 100 mg Tablet 100 mg PO QHS PRN PRN (Reason: Insomnia) 14 Days Qty: 14 0RF bupropion HCl 300 mg tablet extended release 24 hr 300 mg PO DAILY oxycodone 5 mg tablet 5 mg PO Q8H PRN (Reason: pain) 3 Days Qty: 10 0RF ursodiol 300 mg capsule 300 mg PO BID Qty: 180 3RF Eliquis 5 mg tablet 5 mg PO BID Qty: 60 11RF Primary Care Provider: Didier Watkins Referrals: Didier Watkins MD [Primary Care Provider] - Activity Restrictions/Additional Instructions: Your work-up today was largely normal. The exact cause of your pain is not clear however there do not appear to be any acute surgical abnormalities. If you have worsening of your symptoms, develop overlying rash, fever or other GI symptoms such as nausea, vomiting and or diarrhea please return to the emergency room. Use the Lidoderm patches and Tylenol like we discussed. Please follow-up with your primary care doctor early next week for repeat evaluation. Disposition Disposition: Home, Self Care Discharge Date/Time: 11/09/22 16:21
[2022-11-09 15:15] LABS: Bacteria 1+ /hpf (None Seen)
[2022-11-09 15:16] LABS: Squamous Epithelial Cells - UA 5-10 SEEN /hpf (5-10)
[2022-11-09 16:19] VITALS: BP 120/80; PULSE 80; RESP 16; O2SAT 99
--- NOTE | 2022-11-09 16:19 | ED.RN ---
this rn pulled meds. order not on this pt. meds wasted. pt discharged home.
== END 2022-11-09 16:21 | disposition home or self-care (01) ==
PROVIDERS: Emergency Provider Emergency Medicine; PCP Family Medicine; Visit Provider Emergency Medicine
DX: R10.11 Right upper quadrant pain (principal); J44.9 Chronic obstructive pulmonary disease, unspecified; I13.0 Hypertensive heart and chronic kidney disease with heart failure and stage 1 through stage 4 chronic kidney disease, or unspecified chronic kidney disease; I50.40 Unspecified combined systolic (congestive) and diastolic (congestive) heart failure; N18.9 Chronic kidney disease, unspecified; R21 Rash and other nonspecific skin eruption; S39.011A Strain of muscle, fascia and tendon of abdomen, initial encounter; E78.5 Hyperlipidemia, unspecified; Z79.01 Long term (current) use of anticoagulants; Z87.891 Personal history of nicotine dependence; Z90.49 Acquired absence of other specified parts of digestive tract; X58.XXXA Exposure to other specified factors, initial encounter
CPT/HCPCS: 71046; 74177; 80053; 81001; 83690; 85025; 99283; Q9967; J2405

== ENCOUNTER → 2022-12-24 | Outpatient (CLI) | payer MEDICAID, SELFPAY ==
--- NOTE | 2022-12-24 14:45 | RAD_ITS ---
EXAM: XR CHEST, 2 VIEWS CLINICAL INDICATION: ongoing cough; rule out pneumonia TECHNIQUE: Frontal and lateral views of the chest. This report was created using [employer] report generation technology. COMPARISON: November 09, 2022. FINDINGS: LUNGS AND PLEURAL SPACES: Linear scarring or discoid atelectasis at the periphery of the left lower lung. No consolidation. No pleural effusion or pneumothorax. HEART: Enlarged cardiac silhouette concerning for cardiomegaly and/or pericardial effusion. MEDIASTINUM: Central airways and mediastinal contour are unremarkable. BONES/JOINTS: Suture anchor projects over the left humeral head. SOFT TISSUES: Unremarkable. RAD/Chest PA and Lateral IMPRESSION: Stable enlarged cardiac silhouette. No pneumonia or other acute disease. Electronically Signed: Larry Smith MD at 3:51 EDT ,
== END | disposition home or self-care (01) ==
LOC: MTRAD 14:43
PROVIDERS: PCP Family Medicine; Referring Provider Nurse Practitioner Family; Visit Provider Nurse Practitioner Family
DX: J40 Bronchitis, not specified as acute or chronic (principal)
CPT/HCPCS: 71046

== ENCOUNTER → 2023-01-03 | Outpatient (CLI) | payer MEDICAID, SELFPAY ==
--- NOTE | 2023-01-03 09:55 | US_ITS ---
STUDY: ABDOMINAL ULTRASOUND - ELASTOGRAPHY REASON FOR VISIT: Female, 52 years old. Hepatic fibrosis. TECHNIQUE: Liver stiffness measurements were obtained on a [employer] RS 85 ultrasound machine using a CA 1-7 probe following the SRU guidelines. 3 measurements were obtained using a 2-D-SWE method. TheIQR/M was 14 % suggesting a quality data set. TECHNICAL QUALITY: Adequate. COMPARISON: None. FINDINGS: Liver: There is no demonstrated mass lesion. Median liver stiffness measured 9.1 kPa. Abdomen: There is no demonstrated mass lesion. US/Elastography Parenchyma/Organ IMPRESSION: Liver stiffness measures 9.1 kPa compatible with F2-F3 (Mild to moderate liver fibrosis) Metavir score. Electronically Signed: George Kaplan MD at 10:31 EDT ,
--- NOTE | 2023-01-03 09:55 | US_ITS ---
STUDY: ABDOMINAL ULTRASOUND - RIGHT UPPER QUADRANT REASON FOR VISIT: Female, 52 years old hep fibrosis TECHNIQUE: Ultrasound evaluation of the right upper quadrant was performed with real-time and static dailey-scale imaging. TECHNICAL QUALITY: Adequate. COMPARISON: Comparison is made with prior study dated August 09, 2022. FINDINGS: Liver: The liver is enlarged and measures 19.6 cm. There is increased echogenicity consistent with fatty infiltration. The bile ducts are within normal limits. There is hepatic color flow. The direction of portal flow is hepatopetal. There is no demonstrated mass lesion. Gallbladder: The patient is status post cholecystectomy. Common Bile Duct (C.B.D.): The common bile duct measures 7.6 mm. Pancreas: Normal size of the head, body and tail of the pancreas. There is normal echogenicity of the pancreas. There is no demonstrated pancreatic mass or cyst. Right Kidney: Normal size of the right kidney. The right kidney measures 10.9 cm x 4.8 cm x 5 cm. Normal renal cortex. The right cortex measures 1.4 cm. There is no demonstrated renal mass or cyst. There is no right hydronephrosis. There is a 4 mm x 4 mm x 5 mm nonobstructive calculus in the upper pole calyx of the right kidney. US/Abdomen Limited IMPRESSION: Hepatomegaly and fatty infiltration of the liver. Small nonobstructive calculus in the upper pole of the right kidney. Electronically Signed: George Kaplan MD at 8:32 EDT ,
== END | disposition home or self-care (01) ==
PROVIDERS: PCP Family Medicine; Referring Provider Nurse Practitioner Adult Health; Visit Provider Nurse Practitioner Adult Health
DX: I27.20 Pulmonary hypertension, unspecified (principal); K74.00 Hepatic fibrosis, unspecified
CPT/HCPCS: 36415; 76705; 76981

== ENCOUNTER → 2023-02-06 | Outpatient (CLI) | payer MEDICAID, SELFPAY ==
[2023-02-06 18:17] LABS: BNP,B-Type NATRIURETIC PEPTIDE 97.7 pg/mL (0-100)
[2023-02-06 18:27] LABS: ALB/GLOB Ratio 0.7 RATIO (0.9-2.4); AST(SGOT) 17 U/L (15-37); Alanine Aminotransfer ALT/SGPT 18 U/L (13-56); Albumin, Serum 2.9 g/dL (3.2-5.0); Alkaline Phosphatase 93 U/L (45-117); Anion Gap 6 (5-15); BUN 17 mg/dL (7-18); BUN/Creat Ratio 13.6 RATIO (10-20); Calcium,Total 8.7 mg/dL (8.5-10.1); Chloride 113 mmol/L (98-107); Creatinine, Serum 1.25 mg/dL (0.55-1.02); EST Glomerular Filtration Rate 47 mL/min (>60); Est Glom Filt Rate - Afr Amer 57 mL/min (>60); Free T3 2.1 pg/mL (2.18-3.98); GGTP 52 U/L (5-55); Glucose 114 mg/dL (74-106); Potassium 4.2 mmol/L (3.5-5.1); Protein, Total 6.9 g/dL (6.4-8.2); Sodium Level 140 mmol/L (136-145); Thyroid Stim Hormone (TSH) 1.76 uIU/mL (0.358-3.74)
== END | disposition home or self-care (01) ==
LOC: MFPLAB 16:05
PROVIDERS: PCP Family Medicine; Visit Provider Family Medicine
DX: I50.9 Heart failure, unspecified (principal); E03.9 Hypothyroidism, unspecified; F10.10 Alcohol abuse, uncomplicated
CPT/HCPCS: 36415; 80053; 82977; 83880; 84439; 84443; 84481

== ENCOUNTER → 2023-06-04 | Outpatient (CLI) | payer MEDICAID, SELFPAY ==
--- NOTE | 2023-06-04 15:25 | RAD_ITS ---
STUDY: X-RAY CHEST REASON FOR EXAM: Female, 52 years old. SOB/ COUGH TECHNIQUE: PA and lateral views of the chest. COMPARISON: Comparison is made with prior study dated December 24, 2022. FINDINGS: Stable increased markings at the lung bases suggestive of bibasilar scarring. There is no demonstrated pleural abnormality. There is moderate cardiac enlargement. Normal mediastinum and mayra. Normal visualized pulmonary arteries. There is atherosclerotic calcification of the aortic arch with tortuosity. There are diffuse degenerative changes of the visualized thoracic spine. Normal visualized ribs, clavicles, and shoulders. There is no demonstrated abnormality of the visualized soft tissue structures of the upper abdomen. RAD/Chest PA and Lateral IMPRESSION: Cardiomegaly. Stable increased markings at the lung bases suggestive of bibasilar scarring. Electronically Signed: George Kaplan MD at 15:17 EDT ,
== END | disposition home or self-care (01) ==
LOC: RAD 15:15
PROVIDERS: PCP Family Medicine; Referring Provider Internal Medicine Pulmonary Disease; Visit Provider Internal Medicine Pulmonary Disease
DX: R06.02 Shortness of breath (principal); R05.9 Cough, unspecified
CPT/HCPCS: 71046; 87070; 87205

== ENCOUNTER 2023-06-24 17:30 | Inpatient (IN) | payer MEDICAID, SELFPAY ==
[2023-06-24] VITALS (13 sets, daily range): BP systolic 115–136; BP diastolic 55–83; PULSE 59–77; RESP 16–30; TEMP 36.1–37.5; O2SAT 83–96; BMI 40.0; BMI 41.5
--- NOTE | 2023-06-24 17:43 | EDS_ITS ---
HPI History of Present Illness Chief Complaint: Asthma Informant: patient Narrative Narrative: 52-year-old female with a history of COPD and pulmonary hypertension as well as A-fib/flutter and nonischemic cardiomyopathy presenting with shortness of breath that started today gradually and is gradually become worse, occasionally felt like she was wheezing but states she mostly just feels like she cannot catch her breath. Uses 2 L nasal cannula at nighttime only, she states she checked her pulse oximetry at home and she was 70% on room air so she put her oxygen on. It helped a little but not very much. No chest discomfort, no chest tightness. Chronic edema in her legs is no different for the last couple months. She states she smoked last night and she thinks that is the cause of this. She did not have dyspnea last night while smoking. She states she has her Trelegy and she has been compliant with that, but although she has albuterol inhaler at home, she has not used any type of rescue breathing treatment or inhaler today with the symptoms. She has developed hemoptysis. She is anticoagulated on apixaban and is also on flecainide for her A-fib and does not feel like she has been in A-fib. [facility] Medical History Alcohol abuse Allergic rhinitis Anemia Anxiety Atrial fibrillation Atrial flutter Bilateral knee pain Chronic kidney disease (CKD) COPD (chronic obstructive pulmonary disease) CPAP (continuous positive airway pressure) dependence Depression DVT (deep venous thrombosis) Esophageal spasm Essential (primary) hypertension Extremity cyanosis Fatty liver Former smoker Former smoker GERD (gastroesophageal reflux disease) Heart failure with preserved ejection fraction HFrEF (heart failure with reduced ejection fraction) Hiatal hernia History of back problems History of edema History of pain when walking HLD (hyperlipidemia) HTN (hypertension), benign Hyperthyroidism Hypomagnesemia Iron deficiency Migraines Morbid obesity with BMI of 40.0-44.9, adult Non-ischemic cardiomyopathy Obstructive sleep apnea Osteoarthritis PAF (paroxysmal atrial fibrillation) Panic attack Paroxysmal atrial fibrillation Patellofemoral syndrome of both knees PFO (patent foramen ovale) Pulmonary embolism (04/26/16) Secondary pulmonary arterial hypertension Tobacco user Tubular adenoma of colon Home Medications rosuvastatin 5 mg tablet (Crestor) 10 mg PO DAILY cholesterol 06/18/19 [History Last Taken 09/12/22] acetaminophen 500 mg tablet 1,000 mg PO DAILY PRN PRN Pain 1-10 Or Fever 08/01/20 [History Last Taken 09/13/22] cholecalciferol (vitamin D3) 10 mcg (400 unit) capsule 4,000 unit PO DAILY supplement 08/01/20 [History Last Taken 09/12/22] folic acid 1 mg tablet 1 mg PO DAILY supplement 08/01/20 [History Last Taken 09/12/22] multivitamin 1 tab PO DAILY DAILY 12/28/20 [History Last Taken 09/12/22] sildenafil (pulm.hypertension) 20 mg tablet 20 mg PO TID pulmonary HTN 05/01/21 [History Last Taken 09/12/22] fluticasone fur. 100 mcg-umeclid 62.5 mcg-vilant 25 mcg inhalat.powder (Trelegy Ellipta) 1 inh inhalation DAILY COPD 01/20/22 [History Last Taken 09/12/22] trazodone 100 mg tablet 100 mg PO QHS PRN PRN Insomnia 14 days #14 tabs 01/24/22 [Rx Last Taken 3 Days Ago ~09/10/22] bupropion HCl 300 mg 24 hr tablet, extended release 300 mg PO DAILY mood 05/16/22 [History Last Taken 09/12/22] celecoxib 100 mg capsule (Celebrex) 100 mg PO DAILY 07/18/22 [History Last Taken 09/12/22] empagliflozin 10 mg tablet (Jardiance) 10 mg PO DAILY #90 tabs 07/18/22 [Rx Last Taken 09/12/22] pantoprazole 40 mg tablet,delayed release 40 mg PO QAM #30 tabs 08/13/22 [Rx Last Taken 09/12/22] amlodipine 5 mg tablet (Norvasc) 5 mg PO DAILY #30 tabs 09/11/22 [Rx Last Taken 09/13/22] oxycodone 5 mg tablet 5 mg PO Q8H PRN pain 3 days #10 tabs 09/28/22 [Rx Last Taken Unknown] metoprolol tartrate 25 mg tablet 25 mg PO Q12 #180 tabs 10/23/22 [Rx Last Taken Unknown] flecainide 100 mg tablet 50 mg (1/2 x 100 mg) PO BID #60 tabs 10/28/22 [Rx Last Taken Unknown] ursodiol 300 mg capsule 300 mg PO BID #180 caps 03/07/23 [Rx Last Taken Unknown] furosemide 40 mg tablet 40 mg PO .COMPLEX edema #14 tabs 04/29/23 [Rx Last Taken Unknown] apixaban 5 mg tablet (Eliquis) 5 mg PO BID blood thinner #60 tabs 06/02/23 [Rx Last Taken Unknown] cefuroxime axetil 500 mg tablet 500 mg PO BID 06/13/23 [History Last Taken Unknown] hydroxychloroquine 200 mg tablet (Plaquenil) 400 mg (2 x 200 mg) PO DAILY #1 TAB 06/13/23 [Rx Last Taken Unknown] Allergy/AdvReac Type Severity Reaction Status Date / Time doxycycline Allergy Hives Verified 06/24/23 17:34 hydrocodone [From Vicodin] AdvReac Itching Verified 06/24/23 17:34 Family History Mother Breast cancer Cancer lung cancer Father Cancer lung cancer Hypertension High cholesterol Surgical History H/O repair of rotator cuff History of History of cardiac catheterization History of cardioversion (05/23/22) History of cholecystectomy History of hysterectomy History of nasal surgery History of repair of hiatal hernia (12/2020) History of transesophageal echocardiography (MABEL) (05/23/22) Social History household members: spouse Smoking Status: Current some day smoker tobacco type: cigarettes alcohol intake: current alcohol intake frequency: 3 or more drinks per day Alcohol type: hard liquor details: Started drinking again recently, has been intermittent. Hard liquor drinks. substance use type: does not use ROS ROS ED Constitutional Constitutional ED: Denies chills or fever(s) Eyes Eyes: Denies change in vision or diplopia ENT ENT ED: Denies rhinorrhea or sore throat Cardiovascular Cardiovascular: Reports leg edema; Denies chest pain or palpitations Respiratory/Chest Respiratory/Chest: Reports cough, dyspnea and hemoptysis Gastrointestinal Gastrointestinal: Denies abdominal pain, diarrhea, nausea or vomiting Genitourinary Genitourinary ED: Denies dysuria or hematuria Musculoskeletal Musculoskeletal: Denies back pain or neck pain Integumentary Denies abscess or rash Neurologic Neurologic: Denies headache(s), paresthesias or weakness Psychiatric Psychiatric: Denies anxiety or suicidal thoughts EXAM Physical Exam Const Vital Signs: 06/24/23 17:30 06/24/23 17:35 06/24/23 17:36 Temperature 99.5 F H Temperature Source Temporal Pulse Rate 77 73 Respiratory Rate 30 H 18 Respiratory Effort Short of Breath Labored Respiratory Depth Shallow Respiratory Pattern Tachypnea Blood Pressure 127/73 H Blood Pressure Mean 91 Pulse Ox 90 92 Oxygen Delivery Method Nasal Cannula Nasal Cannula Nasal Cannula Oxygen Flow Rate (L/min) 6 6 6 06/24/23 17:50 06/24/23 18:03 06/24/23 19:40 Temperature Temperature Source Pulse Rate 71 66 Respiratory Rate 16 21 H Respiratory Effort Respiratory Depth Respiratory Pattern Normal Blood Pressure Blood Pressure Mean Pulse Ox 91 83 Oxygen Delivery Method Nasal Cannula Room Air Oxygen Flow Rate (L/min) 6 06/24/23 19:43 Temperature Temperature Source Pulse Rate 59 L Respiratory Rate 18 Respiratory Effort Respiratory Depth Respiratory Pattern Blood Pressure Blood Pressure Mean Pulse Ox 90 Oxygen Delivery Method Nasal Cannula Oxygen Flow Rate (L/min) 2 Positive well nourished, well developed and obese General Appearance ED: well developed and NAD Nutritional Appearance: obese HEENT Reports moist mucous membranes normocephalic and atraumatic Eyes PERRL and EOMs intact bilaterally Neck full ROM, no lymphadenopathy, supple and no JVD Resp clear to auscultation bilaterally Resp Narrative: Tachypnea but without respiratory distress or retractions Cardio regular rate, regular rhythm and no murmurs GI non-tender and non-distended Auscultation: normoactive bowel sounds Palpation: soft Back/Spine no CVA tenderness General Back: other FROM Extremity normal to inspection General Extremety ED: Yes edema; Negative for pulses abnormal or tenderness General Extremity: edema bilateral lower extremity Details: moderate (Symmetric without signs of cellulitis or tenderness); Negative for pulses abnormal Neuro oriented x3, CN's II-XII intact bilaterally and no sensory deficits noted Sensorium / Orientation: awake and alert Motor Exam: strength 5/5 throughout Skin no rashes or lesions noted and no wounds MDM MDM MDM Narrative Medical decision making narrative: Differential here includes infectious etiologies, reactive airway/COPD, cardiogenic pulmonary edema, noncardiogenic pulmonary edema. Work-up does not prove 1 over another; she is a leukocytosis, to be chest x-ray my interpretation shows edema versus atypical infection as reported by radiology, this could be either 1. She sounds clear does not sound wet. Her BNP is slightly elevated but not extremely high as would be the case with severe acute decompensated congestive heart failure, her troponin is normal, her EKG is unremarkable, and the rest of her work-up is unremarkable except for mild prerenal azotemia. I am going to cover her for both with antibiotics Levaquin and Lasix, however her IV blew and so she was feeling better after the nebulizers and we ambulated her. She is very hypoxic on 2 L. She preferred to try to go home, so we ambulated her on 5 L which is what her concentrator goes up to and she still desatted down to 87%, and was dyspneic with a short walk. At rest she is recovered, plan is for admission. History & Record Review Additional record(s) reviewed:: Prior outpatient record (echo: EF 55-60% in Oct this year) Lab Data Attestation: I reviewed the patient's lab results. Labs: Laboratory Results - last 24 hr 06/24/23 17:30 WBC 18.2 H RBC 4.05 L Hgb 12.5 Hct 39.6 MCV 97.8 MCH 30.9 MCHC 31.6 L RDW Std Deviation 46.1 H RDW Coeff of Leighton 12.9 Plt Count 205 MPV 9.7 Immature Gran % (Auto) 0.900 Neut % (Auto) 93.5 H Lymph % (Auto) 1.8 L [place] % (Auto) 3.3 Eos % (Auto) 0.1 Baso % (Auto) 0.4 Absolute Neuts (auto) 17.0 H Absolute Lymphs (auto) 0.33 L Nucleated RBC % 0 Differential Comment Sodium 140 Potassium 4.7 Chloride 111 H Carbon Dioxide 23.0 Anion Gap 6 BUN 22 H Creatinine 1.11 H Estim Creat Clear Calc 56.34 Est GFR (MDRD) Af Amer 66 Est GFR (MDRD) Non-Af 54 L BUN/Creatinine Ratio 19.8 Glucose 154 H Calcium 8.9 Troponin I High Sens 7 B-Natriuretic Peptide 347.8 H Radiography Diagnostic Testing: Clinical Impression(s) from Imaging Studies Chest X-Ray 06/24/23 18:08 IMPRESSION: Findings which may be consistent with congestive failure although pneumonia or other nonspecific causes of pulmonary edema not excluded. Electronically Signed: Edinson Smiht MD at 18:23 EDT , Rhythm Strip Rhythm Strip: Sinus Rhythm Rate: 65 Ectopy: None EKG Initial EKG: Attestation: I personally reviewed and interpreted this EKG as follows: Interpretation: Sinus Rhythm and No Acute Injury Pattern Management Discussion w/another healthcare provider: Hospitalist Discharge Plan Dx/Rx/DC Orders Clinical Impression: Hypoxemia, Non-ischemic cardiomyopathy, Secondary pulmonary arterial hypertension, Atypical pneumonia Disposition Disposition: Acute Care Hospital [facility]
[2023-06-24] MEDS: Ipratropium/Albuterol Sulfate 3 ML AMPUL.NEB INHALATION (17:49)
[2023-06-24] MEDS: Albuterol 2.5 MG/3 ML VIAL.NEB. INHALATION (17:49)
[2023-06-24 18:02] LABS: Absolute Lymphocyte Count 0.33 X10^3/uL (0.83-4.51); Basophil# 0.07 X10^3/uL; Basophil% 0.4 % (0-1); Eosinophil# 0.01 X10^3/uL; Eosinophils% 0.1 % (0-5); Hematocrit 39.6 % (37-47); Hemoglobin 12.5 g/dL (12.0-15.0); Lymphocyte # 0.33 X10^3/ul (0.83-4.51); Lymphocyte % 1.8 % (19-41); Mean Corp Hgb Conc 31.6 g/dL (32-36); Mean Corpuscular Hgb 30.9 pg (27.0-32.0); Mean Corpuscular Volume 97.8 fL (81-99); Mean Platelet Vol. 9.7 fl (6.2-12.0); Monocyte% 3.3 % (0-10); NRBC Flagged by Analyzer 0 % (0-5); Neutrophil # 17.02 X10^3/uL (2.7-7.7); Neutrophil % 93.5 % (47-70); POSITIVE DIFFERENTIAL YES; Platelet Count 205 K/mm3 (150-450); RBC Distribution Width CV 12.9 % (11.6-14.6); RBC Distribution Width SD 46.1 fl (35.1-43.9); Red Blood Count 4.05 M/mm3 (4.2-5.4); White Blood Count 18.2 K/mm3 (4.4-11.0)
--- NOTE | 2023-06-24 18:08 | RAD_ITS ---
STUDY: X-RAY CHEST REASON FOR EXAM: Female, 52 years old. sob TECHNIQUE: PA and lateral COMPARISON: June 04, 2023 FINDINGS: Bilateral perihilar interstitial reticulonodular infiltrates or pulmonary edema.. Small bilateral pleural effusions. Heart is enlarged.. Normal mediastinum and mayra. Normal visualized pulmonary arteries. Normal visualized aortic arch and descending thoracic aorta. Dorsal spine and shoulders demonstrate degenerative change. Normal visualized ribs, and clavicles.. There is no demonstrated abnormality of the visualized soft tissue structures of the upper abdomen. RAD/Chest PA and Lateral IMPRESSION: Findings which may be consistent with congestive failure although pneumonia or other nonspecific causes of pulmonary edema not excluded. Electronically Signed: Edinson Smith MD at 18:23 EDT ,
[2023-06-24 18:09] LABS: Differential Indicated SCAN CRITERIA MET
[2023-06-24 18:11] LABS: Anion Gap 6 (5-15); BUN 22 mg/dL (7-18); BUN/Creat Ratio 19.8 RATIO (10-20); Calcium,Total 8.9 mg/dL (8.5-10.1); Chloride 111 mmol/L (98-107); Creatinine, Serum 1.11 mg/dL (0.55-1.02); EST Glomerular Filtration Rate 54 mL/min (>60); Est Glom Filt Rate - Afr Amer 66 mL/min (>60); Estimated Creatinine Clearance 56.34 ml/min; Glucose 154 mg/dL (74-106); Potassium 4.7 mmol/L (3.5-5.1); Sodium Level 140 mmol/L (136-145); Troponin-I HS 7 pg/mL (3.0-54.0)
[2023-06-24 18:59] LABS: BNP,B-Type NATRIURETIC PEPTIDE 347.8 pg/mL (0-100)
[2023-06-24] MEDS: Furosemide 20 MG/2 ML VIAL IV (20:32)
--- NOTE | 2023-06-24 20:54 | PCM.HP.STD ---
[facility] - General General Date of Admission: 06/24/23 Date of Service: 06/24/23 Chief Complaint: Shortness of breath HPI Narrative NEYMAR SHEPHERD, is a 52 F with a significant history of COPD; nonischemic cardiomyopathy; alcoholism; atrial fibrillation on flecainide and Eliquis who presents to the emergency department with persistent shortness of breath above her baseline. Patient's symptoms started on the same day of presentation. Associated with her symptoms is hemoptysis. Of note patient took some NyQuil but thinks that the hemoptysis was real since the hematemesis persisted even about 4 hours after taking the NyQuil. Chronically at night patient uses a CPAP with oxygen 2 L bled in. Patient checked her oxygen saturations and it was about 70%. She reports drinking and smoking and night before presentation. She thinks that her cough is from smoking. She reports home temperature of more than 100 Fahrenheit. She reports chills more than her baseline on the day of presentation. She reports headaches She has chronic swelling of bilateral lower extremities last no change. She reports wheezing which is not above her baseline She sleeps on her side chronically because she cannot sleep on her back secondary to pain. She denies paroxysmal nocturnal dyspnea saying that she is always inebriated with sleeping. Patient reported the day before presentation she had a repeat pulmonary function tests. Patient's commercial loan specialist is Dr. Lugo. [facility] Medical History Alcohol abuse Allergic rhinitis Anemia Anxiety Atrial fibrillation Atrial flutter Bilateral knee pain Chronic kidney disease (CKD) COPD (chronic obstructive pulmonary disease) CPAP (continuous positive airway pressure) dependence Depression DVT (deep venous thrombosis) Esophageal spasm Essential (primary) hypertension Extremity cyanosis Fatty liver Former smoker Former smoker GERD (gastroesophageal reflux disease) Heart failure with preserved ejection fraction HFrEF (heart failure with reduced ejection fraction) Hiatal hernia History of back problems History of edema History of pain when walking HLD (hyperlipidemia) HTN (hypertension), benign Hyperthyroidism Hypomagnesemia Iron deficiency Migraines Morbid obesity with BMI of 40.0-44.9, adult Non-ischemic cardiomyopathy Obstructive sleep apnea Osteoarthritis PAF (paroxysmal atrial fibrillation) Panic attack Paroxysmal atrial fibrillation Patellofemoral syndrome of both knees PFO (patent foramen ovale) Pulmonary embolism (04/26/16) Secondary pulmonary arterial hypertension Tobacco user Tubular adenoma of colon Home Medications rosuvastatin 5 mg tablet (Crestor) 10 mg PO DAILY cholesterol 06/18/19 [History Last Taken 09/12/22] acetaminophen 500 mg tablet 1,000 mg PO DAILY PRN PRN Pain 1-10 Or Fever 08/01/20 [History Last Taken 09/13/22] cholecalciferol (vitamin D3) 10 mcg (400 unit) capsule 4,000 unit PO DAILY supplement 08/01/20 [History Last Taken 09/12/22] folic acid 1 mg tablet 1 mg PO DAILY supplement 08/01/20 [History Last Taken 09/12/22] multivitamin 1 tab PO DAILY DAILY 12/28/20 [History Last Taken 09/12/22] sildenafil (pulm.hypertension) 20 mg tablet 20 mg PO TID pulmonary HTN 05/01/21 [History Last Taken 09/12/22] fluticasone fur. 100 mcg-umeclid 62.5 mcg-vilant 25 mcg inhalat.powder (Trelegy Ellipta) 1 inh inhalation DAILY COPD 01/20/22 [History Last Taken 09/12/22] trazodone 100 mg tablet 100 mg PO QHS PRN PRN Insomnia 14 days #14 tabs 01/24/22 [Rx Last Taken 3 Days Ago ~09/10/22] bupropion HCl 300 mg 24 hr tablet, extended release 300 mg PO DAILY mood 05/16/22 [History Last Taken 09/12/22] celecoxib 100 mg capsule (Celebrex) 100 mg PO DAILY pain 07/18/22 [History Last Taken 09/12/22] empagliflozin 10 mg tablet (Jardiance) 10 mg PO DAILY diabetes #90 tabs 07/18/22 [Rx Last Taken 09/12/22] pantoprazole 40 mg tablet,delayed release 40 mg PO QAM #30 tabs 08/13/22 [Rx Last Taken 09/12/22] amlodipine 5 mg tablet (Norvasc) 5 mg PO DAILY pain #30 tabs 09/11/22 [Rx Last Taken 09/13/22] oxycodone 5 mg tablet 5 mg PO Q8H PRN pain 3 days #10 tabs 09/28/22 [Rx Last Taken Unknown] metoprolol tartrate 25 mg tablet 25 mg PO Q12 #180 tabs 10/23/22 [Rx Last Taken Unknown] flecainide 100 mg tablet 50 mg (1/2 x 100 mg) PO BID heart rhythm #60 tabs 10/28/22 [Rx Last Taken 06/24/23] ursodiol 300 mg capsule 300 mg PO BID #180 caps 03/07/23 [Rx Last Taken Unknown] furosemide 40 mg tablet 40 mg PO .COMPLEX edema #14 tabs 04/29/23 [Rx Last Taken Unknown] apixaban 5 mg tablet (Eliquis) 5 mg PO BID blood thinner #60 tabs 06/02/23 [Rx Last Taken Unknown] hydroxychloroquine 200 mg tablet (Plaquenil) 400 mg (2 x 200 mg) PO DAILY #1 TAB 06/13/23 [Rx Last Taken Unknown] Allergy/AdvReac Type Severity Reaction Status Date / Time doxycycline Allergy Hives Verified 06/24/23 17:34 hydrocodone [From Vicodin] AdvReac Itching Verified 06/24/23 17:34 Family History Mother Breast cancer Cancer lung cancer Father Cancer lung cancer Hypertension High cholesterol Surgical History H/O repair of rotator cuff History of History of cardiac catheterization History of cardioversion (05/23/22) History of cholecystectomy History of hysterectomy History of nasal surgery History of repair of hiatal hernia (12/2020) History of transesophageal echocardiography (MABEL) (05/23/22) Social History household members: spouse Smoking Status: Current some day smoker tobacco type: cigarettes alcohol intake: current alcohol intake frequency: 3 or more drinks per day Alcohol type: hard liquor details: Started drinking again recently, has been intermittent. Hard liquor drinks. substance use type: does not use ROS ROS Narrative Pertinent positives and pertinent negatives as noted in HPI. All other systems were reviewed and are negative Vital Signs Vital Signs Vital Signs: 06/24/23 17:30 06/24/23 17:35 06/24/23 17:36 Temperature 99.5 F H Temperature Source Temporal Pulse Rate 77 73 Respiratory Rate 30 H 18 Respiratory Effort Short of Breath Labored Respiratory Depth Shallow Respiratory Pattern Tachypnea Blood Pressure 127/73 H Blood Pressure Mean 91 Pulse Ox 90 92 Oxygen Delivery Method Nasal Cannula Nasal Cannula Nasal Cannula Oxygen Flow Rate (L/min) 6 6 6 06/24/23 17:50 06/24/23 18:03 06/24/23 19:40 Temperature Temperature Source Pulse Rate 71 66 Respiratory Rate 16 21 H Respiratory Effort Respiratory Depth Respiratory Pattern Normal Blood Pressure Blood Pressure Mean Pulse Ox 91 83 Oxygen Delivery Method Nasal Cannula Room Air Oxygen Flow Rate (L/min) 6 06/24/23 19:43 Temperature Temperature Source Pulse Rate 59 L Respiratory Rate 18 Respiratory Effort Respiratory Depth Respiratory Pattern Blood Pressure Blood Pressure Mean Pulse Ox 90 Oxygen Delivery Method Nasal Cannula Oxygen Flow Rate (L/min) 2 Weight Weight: 115.666 kg Body Mass Index (BMI) 40.0 Physical Exam Narrative Physical exam: General: Well-nourished, well-developed. Head: Normocephalic, atraumatic, no tenderness Eyes: Vision is grossly intact. EOMI ENT, no trauma, mildly dry mucous membranes, no rhinorrhea Neck: Nontender, No thyromegaly. CVS: Regular rate and rhythm. S1-S2 present. No murmur, gallop or rub. Respiratory : Diminished lung sounds bilaterally, chest wall nontender Abdomen: Soft, nontender, nondistended, normal bowel sounds, no masses : Deferred Back: Nontender, no CVA tenderness, no midline spinal tenderness, deformities, step-offs Extremities: Nontender full range of motion, no trauma. Nonpitting edema of bilateral lower legs Skin: Normal color, no trauma, abrasions Neuro: Alert, oriented, cranial nerves II through XII grossly intact. Psychiatry: Normal mood. Normal affect. Not depressed. Not anxious. Results Lab / Micro Data 06/24/23 17:30 06/24/23 17:30 Labs: Laboratory Results - last 24 hr 06/24/23 17:30: WBC 18.2 H, RBC 4.05 L, Hgb 12.5, Hct 39.6, MCV 97.8, MCH 30.9, MCHC 31.6 L, RDW Std Deviation 46.1 H, RDW Coeff of [place] 12.9, Plt Count 205, MPV 9.7, Immature Gran % (Auto) 0.900, Neut % (Auto) 93.5 H, Lymph % (Auto) 1.8 L, [place] % (Auto) 3.3, Eos % (Auto) 0.1, Baso % (Auto) 0.4, Absolute Neuts (auto) 17.0 H, Absolute Lymphs (auto) 0.33 L, Nucleated RBC % 0, Differential Comment , Sodium 140, Potassium 4.7, Chloride 111 H, Carbon Dioxide 23.0, Anion Gap 6, BUN 22 H, Creatinine 1.11 H, Estim Creat Clear Calc 56.34, Est GFR (MDRD) Af Amer 66, Est GFR (MDRD) Non-Af 54 L, BUN/Creatinine Ratio 19.8, Glucose 154 H, Calcium 8.9, Troponin I High Sens 7, B-Natriuretic Peptide 347.8 H Micro: Microbiology 06/24/23 17:30 Nasal Secretion SARS-CoV-2 & FLU Antigen (Rapid) - Final Radiology Impression Chest X-Ray 06/24/23 18:08 IMPRESSION: Findings which may be consistent with congestive failure although pneumonia or other nonspecific causes of pulmonary edema not excluded. Electronically Signed: Edinson Smith MD at 18:23 EDT , Assessment & Plan Assessment/Plan (1) Non-ischemic cardiomyopathy: (2) HFrEF (heart failure with reduced ejection fraction): (3) Atypical pneumonia: PLAN: Plan Worsening respiratory failure Like secondary to atypical pneumonia. Impression of chest x-ray by radiologist: Findings which may be consistent with congestive heart failure although pneumonia or other nonspecific causes of pulm edema not excluded. Chest x-ray was independently interpreted by hospitalist: Bilateral pulmonary infiltrate noted. Of note patient had low grade fever at the Hospital; and high grade fever at home. She reports she is above her baseline. White count of 18.2 with neutrophilia and lymphopenia. Trend CBC Legionella antigen screen and Strep antigen ordered. Headaches PRN Tylenol ordered. Chronic heart failure with improved ejection fraction/nonischemic cardiomyopathy Transthoracic echocardiogram on 10/10/2022 showed ejection fraction of 55 to 60%. Transesophageal echocardiogram on 05/23/2022 showed estimate ejection fraction of 40%. Doubt acute on chronic heart failure send patient denies change in weight or change in swelling. BNP is mildly elevated at 347.8. However of note her BNP on 02/06/2023 was 97.7. Received Lasix 20 mg IV at the emergency department. Patient reports that if he takes Lasix for a long time, but for about a week she develops kidney disease. She takes Lasix only as needed. We will hold off further Lasix at this time. Trend BMP. Daily weights. Fluid restriction. Alcoholism Patient reports drinking about half to a third of a fifth of whiskey every night. She is concerned that she may go into withdrawal with admission. CIWA protocol with as needed Ativan ordered. Thiamine and folic acid p.o. ordered. Paroxysmal A-fib Patient in sinus rhythm at her presentation. Resume home Eliquis; and flecainide. Placed on telemetry. Hypertension Blood pressure is stable. Continue home blood pressure medications when verified. Monitor. CKD stage IIIa Stable Trend BMP. Tobacco abuse Counseled. DVT prophylaxis: Not indicated as patient is on home Eliquis. Resume home Eliquis when medication verified Time spent in the patient's overall evaluation,decision-making process, review of diagnostic data, adjustment of management, discussion with other providers, nursing and ancillary staff involved in patient's care documentation, 72 minutes. Charges/Coding Visit Charges Inpatient E&M: 24093 Init Hosp L3
--- NOTE | 2023-06-24 21:04 | NURSING ---
4l spo2 removed from pt and she desatted to 86% quickly. 2l applied and pt was unable to maintain spo2 >90%. o2 increased to 3l. pt indicayted she had 5l of o2 at home. dr coronado agreeable to walking pt with 5l o2 applied to evaluate for hypoxia. pt was able to ambulate to/from the bathroom, but did drop to 87% after returning to her bed. dr coronado made aware. 3l nc reapplied.
[2023-06-24] MEDS: levoFLOXacin IV 750 MG/150 ML BAG 100 MG IV (21:23)
[2023-06-24] MEDS: Acetaminophen 325 MG Tablet 650 MG PO (23:36)
[2023-06-25] VITALS (12 sets, daily range): BP systolic 115–129; BP diastolic 54–80; PULSE 59–73; RESP 16–24; TEMP 36.1–37.1; O2SAT 92–96; BMI 41.3
[2023-06-25] MEDS: LORazepam 1 MG Tablet 2 MG PO ×2 (01:41→04:50)
[2023-06-25 06:15] LABS: Absolute Lymphocyte Count 0.51 X10^3/uL (0.83-4.51); Absolute Neutrophil Count 5.8 X10^3/uL (2.0-7.7); Basophil# 0.04 X10^3/uL; Basophil% 0.6 % (0-1); Eosinophil# 0.04 X10^3/uL; Eosinophils% 0.6 % (0-5); Hemoglobin 11.6 g/dL (12.0-15.0); Lymphocyte # 0.51 X10^3/ul (0.83-4.51); Lymphocyte % 7.4 % (19-41); Mean Corp Hgb Conc 33.1 g/dL (32-36); Mean Corpuscular Hgb 32.3 pg (27.0-32.0); Mean Corpuscular Volume 97.5 fL (81-99); Mean Platelet Vol. 9.3 fl (6.2-12.0); Monocyte# 0.47 X10^3/uL; Monocyte% 6.8 % (0-10); NRBC Flagged by Analyzer 0 % (0-5); Neutrophil # 5.77 X10^3/uL (2.7-7.7); POSITIVE DIFFERENTIAL YES; Platelet Count 159 K/mm3 (150-450); RBC Distribution Width SD 46.2 fl (35.1-43.9); Red Blood Count 3.59 M/mm3 (4.2-5.4); White Blood Count 6.9 K/mm3 (4.4-11.0)
[2023-06-25 06:45] LABS: Differential Indicated SCAN CRITERIA MET
[2023-06-25 06:47] LABS: Anion Gap 7 (5-15); BUN 19 mg/dL (7-18); BUN/Creat Ratio 17.6 RATIO (10-20); Calcium,Total 8.6 mg/dL (8.5-10.1); Chloride 107 mmol/L (98-107); Creatinine, Serum 1.08 mg/dL (0.55-1.02); EST Glomerular Filtration Rate 56 mL/min (>60); Est Glom Filt Rate - Afr Amer 68 mL/min (>60); Estimated Creatinine Clearance 55.75 ml/min; Glucose 98 mg/dL (74-106); Potassium 3.5 mmol/L (3.5-5.1); Sodium Level 138 mmol/L (136-145)
[2023-06-25 07:24] LABS: Differential Comment SCANNED
--- NOTE | 2023-06-25 07:56 | PN.HOSP_ITS ---
Reason for Visit Reason for Visit: Diagnoses Other cardiomyopathies (06/24/23) Unspecified systolic (congestive) heart failure (06/24/23) Pneumonia, unspecified organism (06/24/23) Subjective Subjective Still short of breath, may be slightly better than previous though still not close to baseline and feels unwell, cough has improved significantly however with only 1 episode of coughing up/spitting up blood-tinged sputum, was feeling somewhat sweaty and shaky yesterday Objective Data Objective Data Vital Signs: Vital Signs Temp Pulse Resp BP Pulse Ox O2 Del Method O2 Flow Rate 97.9 F 66 22 H 117/54 L 96 Nasal Cannula 3 06/25/23 04:52 06/25/23 04:52 06/25/23 04:52 06/25/23 04:52 06/25/23 04:52 06/25/23 04:52 06/25/23 04:52 Oxygen Flow Rate (L/min) 3 Oxygen Delivery Method Nasal Cannula Weight: 116.2 kg Body Mass Index (BMI) 41.3 Intake & Output: Intake and Output for Last 24 Hours 06/23/23 06/24/23 06/25/23 23:59 23:59 23:59 Intake Total 270 / 270 400 / 400 Balance 270 / 270 400 / 400 Lab / Micro Data 06/25/23 06:01 06/25/23 06:01 Labs: Laboratory Results - last 24 hr 06/24/23 17:30: WBC 18.2 H, RBC 4.05 L, Hgb 12.5, Hct 39.6, MCV 97.8, MCH 30.9, MCHC 31.6 L, RDW Std Deviation 46.1 H, RDW Coeff of Leighton 12.9, Plt Count 205, MPV 9.7, Immature Gran % (Auto) 0.900, Neut % (Auto) 93.5 H, Lymph % (Auto) 1.8 L, [place] % (Auto) 3.3, Eos % (Auto) 0.1, Baso % (Auto) 0.4, Absolute Neuts (auto) 17.0 H, Absolute Lymphs (auto) 0.33 L, Nucleated RBC % 0, Differential Comment , Sodium 140, Potassium 4.7, Chloride 111 H, Carbon Dioxide 23.0, Anion Gap 6, BUN 22 H, Creatinine 1.11 H, Estim Creat Clear Calc 56.34, Est GFR (MDRD) Af Amer 66, Est GFR (MDRD) Non-Af 54 L, BUN/Creatinine Ratio 19.8, Glucose 154 H, Calcium 8.9, Troponin I High Sens 7, B-Natriuretic Peptide 347.8 H 06/25/23 06:01: WBC 6.9, RBC 3.59 L, Hgb 11.6 L, Hct 35.0 L, MCV 97.5, MCH 32.3 H, MCHC 33.1, RDW Std Deviation 46.2 H, RDW Coeff of Leighton 13.0, Plt Count 159, MPV 9.3, Immature Gran % (Auto) 0.600, Neut % (Auto) 84.0 H, Lymph % (Auto) 7.4 L, [place] % (Auto) 6.8, Eos % (Auto) 0.6, Baso % (Auto) 0.6, Absolute Neuts (auto) 5.8, Absolute Lymphs (auto) 0.51 L, Nucleated RBC % 0, Differential Comment SCANNED, Sodium 138, Potassium 3.5, Chloride 107, Carbon Dioxide 24.0, Anion Gap 7, BUN 19 H, Creatinine 1.08 H, Estim Creat Clear Calc 55.75, Est GFR (MDRD) Af Amer 68, Est GFR (MDRD) Non-Af 56 L, BUN/Creatinine Ratio 17.6, Glucose 98, Calcium 8.6 Micro: Microbiology 06/25/23 02:10 Urine, Clean Catch Legionella Antigen - Final 06/25/23 02:10 Urine, Clean Catch Streptococcus pneumoniae Antigen (M - Final 06/24/23 23:25 Mucosa - Nasopharyngeal Respiratory Panel (PCR) - Final 06/24/23 17:30 Nasal Secretion SARS-CoV-2 & FLU Antigen (Rapid) - Final Radiography Diagnostic Testing: Radiology Impression Chest X-Ray 06/24/23 18:08 IMPRESSION: Findings which may be consistent with congestive failure although pneumonia or other nonspecific causes of pulmonary edema not excluded. Electronically Signed: Edinson Smith MD at 18:23 EDT , Rhythm Strip Rhythm Strip: Sinus Rhythm Rate: 65 Ectopy: None Physical Exam Narrative General: Alert, oriented, appears tired HEENT: Atraumatic, normocephalic Eyes: Anicteric, normal conjunctiva, extraocular movements grossly intact Neck: Supple Respiratory: Somewhat diminished bilaterally, increased respiratory effort with movement Cardiovascular: Regular rate GI: Soft, nontender, nondistended Extremities: No edema Musculoskeletal: Moving all extremities Neuro: No overt focal neurological deficits, no tremor in hands Skin: No rashes appreciated Psych: Cooperative Assessment & Plan Assessment/Plan (1) Non-ischemic cardiomyopathy: (2) HFrEF (heart failure with reduced ejection fraction): (3) Atypical pneumonia: PLAN: Plan #Hypoxia with increasing SOB and history of COPD and hemoptysis -Reports O2 sat was 70% at home and in the ED she was 87% on 5 L with ambulation and dyspneic necessitating admission -Thought to be due to to atypical pneumonia, bilateral pulmonary infiltrates noted on chest x-ray and had low-grade temp at hospital with reported high-grade fever at home -White count 18 with neutrophilia that is resolved with antibiotics -Legionella and strep negative -Nebs, Rocephin and azithromycin?Daily EKGs to assess QTc given patient also on flecainide. Holding hydroxychloroquine at this time. Unable to substitute azithromycin for doxycycline due to hives and Levaquin can also prolong QTc. Monitor closely -Respiratory panel and COVID negative -Follows with Dr. Lugo -Given reports of hemoptysis and patient saying this has been going on for a month with waxing and waning symptoms as well as unclear underlying primary etiology will obtain CT with contrast #FADY/chronic respiratory failure -NIPPV nightly with 2 L O2 #hx non ischemic cardiomyopathy/pulmonary hypertension -Transthoracic echocardiogram on 10/10/2022 showed ejection fraction of 55 to 60%. -Transesophageal echocardiogram on 05/23/2022 showed estimate ejection fraction of 40% -Less likely acute on chronic heart failure with no weight change or swelling and concern for infectious signs and symptoms BNP is mildly elevated however so cannot yet rule this out -Did get Lasix x1 in ED and then was started on IV twice daily however will decrease to IV once daily given she only uses as needed and did not appear to be grossly overloaded on presentation -Continue other home meds #Alcohol use disorder -Drinks 1/2-1/3 of the fifth of whiskey every night, CIWA, as needed Ativan, thiamine and folate #hx ckd stage IIIa -Continue to monitor #afib and history of PE 2016 -flecainide -eliquis #Hypertension -Continue present medications #DVT ppx: Continue Eliquis Rose Marie Serrano MD Time spent in the patient's overall evaluation,decision-making process, review of diagnostic data, adjustment of management, discussion with other providers, nursing nursing and ancillary staff involved in patient's care documentation, 45 Minutes Charges/Coding Visit Charges Inpatient E&M: 35963 Subs Hosp L2
[2023-06-25 08:23] LABS: BNP,B-Type NATRIURETIC PEPTIDE 284.3 pg/mL (0-100)
[2023-06-25] MEDS: Folic Acid 1 MG Tablet PO (09:41)
[2023-06-25] MEDS: APIXABAN 5 MG TABLET PO ×2 (09:42→22:23)
[2023-06-25] MEDS: Thiamine Hydrochloride 100 MG Tablet PO (09:42)
[2023-06-25] MEDS: Empagliflozin 10 MG Tablet PO (09:42)
[2023-06-25] MEDS: Influenza Virus Vac Quad 23-24 60 MCG/0.5 ML SYRINGE IM (09:42)
[2023-06-25] MEDS: Flecainide 100 MG Tablet 50 MG PO ×2 (09:43→22:23)
[2023-06-25] MEDS: Metoprolol Tartrate 25 MG Tablet PO ×2 (09:43→22:27)
[2023-06-25] MEDS: Furosemide 40 MG/4 ML Vial IV (09:43)
[2023-06-25] MEDS: Pantoprazole Sodium 40 MG Tablet PO (09:43)
[2023-06-25] MEDS: buPROPion (XL) 300 MG TABLET.XL PO (09:44)
[2023-06-25] MEDS: Ursodiol 250 MG Tablet PO ×2 (09:44→22:29)
[2023-06-25] MEDS: Ceftriaxone 1 GM/50 ML BAG IV (09:55)
--- NOTE | 2023-06-25 11:15 | CASEMGMT ---
RN PASCUAL Face to Face with patient for initial transition planning/care coordination assessment. RN CM introduced self and role at [facility]. Patient lying in bed, alert and oriented. Patient willing to participate in assessment and is able to answer all questions appropriately. Care providers, pharmacy, and demographics verified. Patient wishes to discharge home, denies need for home health at this time. Patient states she has no further needs or concerns at this time. CM to follow for discharge planning needs that may arise. PCP: June Specialists: Brittney, pulmonology; Murray, pain; KARLA, cardiology; Rosario, GI; Coral, rhuematologist Preferred Pharmacy: [facility] Insurance: [employer] Prescription Benefit: yes Living Will/HPOA: none LNOK: Living Arrangements: Patient lives with in a 2 story home with bed and bath on first floor. Patient is independent at home. Transportation: self, DME/HHC: Patient has cane, walker, shower chair, cpap, nebulizer, pulse ox, and owns her own concentrator for at HS at 2lpm, no portability. Patient prefer [employer] for DME. No previous HHC or SNF. Paitent states that she drinks 1/3 or 1/2 of a 5th of whiskey daily. Patient has followed at [facility] in the past and will follow-up when ready. Patient declined resources Disposition Plan: Patient to discharge home with family support and follow-up plans in place. Greta VANG, RN, CM
--- NOTE | 2023-06-25 11:55 | CT_ITS ---
STUDY: CT CHEST WITH CONTRAST REASON FOR EXAM: Female, 52 years old. Hemoptysis RADIATION DOSAGE (If Supplied By Facility): CTDIvol = ( 23.10 ) mGy, DLP = ( 723.34 ) mGycm TECHNIQUE: Transaxial imaging was performed following intravenous administration of IV 100mL Isovue-300. Multiplanar coronal and sagittal images were reformatted. Individualized dose optimization techniques were used for this CT. COMPARISON: Comparison is made with prior study dated September 13, 2022 and prior chest radiograph from June 24, 2023.. FINDINGS: CHEST Stable linear scarring in the anterior aspect of the left upper lobe. Minimal linear scarring at the lung bases. There is no demonstrated pleural abnormality. Normal heart and pericardium. Normal mediastinum. Normal hilar regions. Normal unenhanced pulmonary arteries. Normal aorta arch and descending thoracic aorta. There are mild degenerative changes of the thoracic spine. Evidence of prior surgery at the gastroesophageal junction. CT/Chest WITH Contrast IMPRESSION: Stable linear scarring in the anterior aspect of the left upper lobe. Minimal scarring at the lung bases. Evidence of prior surgery at the gastroesophageal junction. Electronically Signed: George Kaplan MD at 12:30 EDT ,
[2023-06-25] MEDS: Loratadine 10 MG Tablet PO (12:47)
[2023-06-25] MEDS: Azithromycin 500 MG in Dextrose 5%-Water (250mL Bag) 250 ML 250 MG IV (12:47)
[2023-06-25] MEDS: Ipratropium/Albuterol Sulfate 3 ML AMPUL.NEB INHALATION ×2 (13:15→20:25)
[2023-06-25] MEDS: LORazepam 1 MG Tablet PO ×2 (16:12→22:48)
[2023-06-25] MEDS: Budesonide Respules 0.5 MG/2 ML AMPUL.NEB. INHALATION (20:25)
[2023-06-25] MEDS: SILDENAFIL CITRATE 20 MG TABLET PO (22:23)
[2023-06-25] MEDS: Atorvastatin Calcium 20 MG Tablet PO (22:23)
[2023-06-26] VITALS (8 sets, daily range): BP systolic 97–121; BP diastolic 53–84; PULSE 62–71; RESP 16–18; TEMP 35.8–36.8; O2SAT 87–96; BMI 40.4
[2023-06-26] MEDS: SILDENAFIL CITRATE 20 MG TABLET PO ×2 (05:37→13:50)
[2023-06-26 07:42] LABS: Absolute Lymphocyte Count 0.53 X10^3/uL (0.83-4.51); Absolute Neutrophil Count 4.4 X10^3/uL (2.0-7.7); Basophil# 0.05 X10^3/uL; Basophil% 0.9 % (0-1); Eosinophil# 0.08 X10^3/uL; Eosinophils% 1.4 % (0-5); Hematocrit 38.8 % (37-47); Hemoglobin 12.3 g/dL (12.0-15.0); Lymphocyte # 0.53 X10^3/ul (0.83-4.51); Lymphocyte % 9.4 % (19-41); Mean Corp Hgb Conc 31.7 g/dL (32-36); Mean Corpuscular Hgb 30.9 pg (27.0-32.0); Mean Corpuscular Volume 97.5 fL (81-99); Mean Platelet Vol. 9.4 fl (6.2-12.0); Monocyte# 0.52 X10^3/uL; Monocyte% 9.2 % (0-10); NRBC Flagged by Analyzer 0 % (0-5); POSITIVE DIFFERENTIAL YES; Platelet Count 159 K/mm3 (150-450); RBC Distribution Width SD 46.5 fl (35.1-43.9); Red Blood Count 3.98 M/mm3 (4.2-5.4); White Blood Count 5.6 K/mm3 (4.4-11.0)
[2023-06-26 08:08] LABS: Anion Gap 8 (5-15); BUN 23 mg/dL (7-18); BUN/Creat Ratio 18.4 RATIO (10-20); Calcium,Total 8.6 mg/dL (8.5-10.1); Chloride 105 mmol/L (98-107); Creatinine, Serum 1.25 mg/dL (0.55-1.02); EST Glomerular Filtration Rate 47 mL/min (>60); Est Glom Filt Rate - Afr Amer 57 mL/min (>60); Estimated Creatinine Clearance 48.16 ml/min; Glucose 109 mg/dL (74-106); Potassium 3.4 mmol/L (3.5-5.1); Sodium Level 139 mmol/L (136-145)
[2023-06-26 08:21] LABS: Differential Indicated SCAN CRITERIA MET
--- NOTE | 2023-06-26 08:25 | PCM.PN.HOSP ---
Reason for Visit Reason for Visit: Diagnoses Other cardiomyopathies (06/24/23) Unspecified systolic (congestive) heart failure (06/24/23) Pneumonia, unspecified organism (06/24/23) Objective Data Objective Data Vital Signs: Vital Signs Temp Pulse Resp BP Pulse Ox O2 Del Method O2 Flow Rate 97.5 F L 62 17 121/84 H 94 Bi-pap 2 06/26/23 00:00 06/26/23 00:00 06/26/23 00:00 06/26/23 00:00 06/26/23 00:00 06/26/23 06:47 06/26/23 06:47 Oxygen Flow Rate (L/min) 2 Oxygen Delivery Method Bi-pap Weight: 113.8 kg Body Mass Index (BMI) 40.4 Intake & Output: Intake and Output for Last 24 Hours 06/24/23 06/25/23 06/26/23 23:59 23:59 23:59 Intake Total 270 / 270 1755 / 1755 Balance 270 / 270 1755 / 1755 Lab / Micro Data 06/26/23 07:25 06/26/23 07:25 Labs: Laboratory Results - last 24 hr 06/26/23 07:25: WBC 5.6, RBC 3.98 L, Hgb 12.3, Hct 38.8, MCV 97.5, MCH 30.9, MCHC 31.7 L, RDW Std Deviation 46.5 H, RDW Coeff of Leighton 13.0, Plt Count 159, MPV 9.4, Immature Gran % (Auto) 1.100 H, Neut % (Auto) 78.0 H, Lymph % (Auto) 9.4 L, Glenn % (Auto) 9.2, Eos % (Auto) 1.4, Baso % (Auto) 0.9, Absolute Neuts (auto) 4.4, Absolute Lymphs (auto) 0.53 L, Nucleated RBC % 0, Sodium 139, Potassium 3.4 L, Chloride 105, Carbon Dioxide 26.0, Anion Gap 8, BUN 23 H, Creatinine 1.25 H, Estim Creat Clear Calc 48.16, Est GFR (MDRD) Af Amer 57 L, Est GFR (MDRD) Non-Af 47 L, BUN/Creatinine Ratio 18.4, Glucose 109 H, Calcium 8.6 Micro: Microbiology 06/25/23 02:10 Urine, Clean Catch Legionella Antigen - Final 06/25/23 02:10 Urine, Clean Catch Streptococcus pneumoniae Antigen (M - Final 06/24/23 23:25 Mucosa - Nasopharyngeal Respiratory Panel (PCR) - Final 06/24/23 17:30 Nasal Secretion SARS-CoV-2 & FLU Antigen (Rapid) - Final Radiography Diagnostic Testing: Radiology Impression Chest CT 06/25/23 11:55 IMPRESSION: Stable linear scarring in the anterior aspect of the left upper lobe. Minimal scarring at the lung bases. Evidence of prior surgery at the gastroesophageal junction. Electronically Signed: George Kaplan MD at 12:30 EDT , Rhythm Strip Rhythm Strip: Sinus Rhythm Rate: 65 Ectopy: None Assessment & Plan Assessment/Plan (1) Non-ischemic cardiomyopathy: (2) HFrEF (heart failure with reduced ejection fraction): (3) Atypical pneumonia: PLAN: Plan #Hypoxia with increasing SOB and history of COPD and hemoptysis -Reports O2 sat was 70% at home and in the ED she was 87% on 5 L with ambulation and dyspneic necessitating admission -Thought to be due to to atypical pneumonia, bilateral pulmonary infiltrates noted on chest x-ray and had low-grade temp at hospital with reported high-grade fever at home -White count 18 with neutrophilia that is resolved with antibiotics -Legionella and strep negative -Nebs, Rocephin and azithromycin?Daily EKGs to assess QTc given patient also on flecainide. Holding hydroxychloroquine at this time. Unable to substitute azithromycin for doxycycline due to hives and Levaquin can also prolong QTc. Monitor closely -Respiratory panel and COVID negative -Follows with Dr. Lugo -Given reports of hemoptysis and patient saying this has been going on for a month with waxing and waning symptoms as well as unclear underlying primary etiology will obtain CT with contrast -06/26: CT with contrast unrevealing, appears similar to previous. Still requiring O2, will add oral steroid with plan for long taper she frequently requires these as outpatient and this may be contributing to symptoms. De-escalating Lasix, given kidney function BUN suspect patient has been diuresing, continue antibiotics. Will need walk test prior to discharge. Continue nebs #FADY/chronic respiratory failure -NIPPV nightly with 2 L O2 #hx non ischemic cardiomyopathy/pulmonary hypertension -Transthoracic echocardiogram on 10/10/2022 showed ejection fraction of 55 to 60%. -Transesophageal echocardiogram on 05/23/2022 showed estimate ejection fraction of 40% -Less likely acute on chronic heart failure with no weight change or swelling and concern for infectious signs and symptoms BNP is mildly elevated however so cannot yet rule this out -Did get Lasix x1 in ED and then was started on IV twice daily however will decrease to IV once daily given she only uses as needed and did not appear to be grossly overloaded on presentation -Continue other home meds -06/26: Transition to oral Lasix #Alcohol use disorder -Drinks 1/2-1/3 of the fifth of whiskey every night, CIWA, as needed Ativan, thiamine and folate #hx ckd stage IIIa -Continue to monitor #afib and history of PE 2015 -flecainide -eliquis #Hypertension -Continue present medications #DVT ppx: Continue Candequis Rose Marie Serrano MD Time spent in the patient's overall evaluation,decision-making process, review of diagnostic data, adjustment of management, discussion with other providers, nursing nursing and ancillary staff involved in patient's care documentation, 35 Minutes Charges/Coding Visit Charges Inpatient E&M: 69316 Subs Hosp L2
[2023-06-26 09:02] LABS: Differential Comment SCANNED
[2023-06-26] MEDS: APIXABAN 5 MG TABLET PO (10:36)
[2023-06-26] MEDS: Folic Acid 1 MG Tablet PO (10:36)
[2023-06-26] MEDS: Thiamine Hydrochloride 100 MG Tablet PO (10:36)
[2023-06-26] MEDS: predniSONE 20 MG Tablet 60 MG PO (10:36)
[2023-06-26] MEDS: Empagliflozin 10 MG Tablet PO (10:36)
[2023-06-26] MEDS: Loratadine 10 MG Tablet PO (10:36)
[2023-06-26] MEDS: Metoprolol Tartrate 25 MG Tablet PO (10:37)
[2023-06-26] MEDS: Furosemide 40 MG Tablet PO (10:37)
[2023-06-26] MEDS: Potassium Chloride Oral Tablet 20 MEQ 40 MEQ PO (10:37)
[2023-06-26] MEDS: Ceftriaxone 1 GM/50 ML BAG IV (10:38)
[2023-06-26] MEDS: Flecainide 100 MG Tablet 50 MG PO (10:38)
[2023-06-26] MEDS: Pantoprazole Sodium 40 MG Tablet PO (10:38)
[2023-06-26] MEDS: 0.9% Saline Lock 10 ML Syringe IV (10:39)
[2023-06-26] MEDS: Ursodiol 250 MG Tablet PO (10:39)
[2023-06-26] MEDS: buPROPion (XL) 300 MG TABLET.XL PO (10:39)
[2023-06-26] MEDS: Budesonide Respules 0.5 MG/2 ML AMPUL.NEB. INHALATION ×2 (11:17→16:30)
[2023-06-26] MEDS: Ipratropium/Albuterol Sulfate 3 ML AMPUL.NEB INHALATION ×2 (11:17→16:30)
[2023-06-26] MEDS: Azithromycin 500 MG in Dextrose 5%-Water (250mL Bag) 250 ML 250 MG IV (12:43)
[2023-06-26 13:07] LABS: Mycoplasma Pneum AB IgG < 100 U/mL (0-99); Mycoplasma pneum. AB IgM < 770 U/mL (0-769)
--- NOTE | 2023-06-26 16:13 | PCM.DC.SUM ---
Providers Date of Admission: 06/24/23 Date of Discharge: 06/26/23 Primary Care Physician: Dr. Didier Watkins MD Reason For Visit: WORSENING RESPIRATORY FAILURE WITH HYPOXIA Diagnosis Discharge Diagnosis (1) Non-ischemic cardiomyopathy: Status: Acute Code(s): I42.8 - Other cardiomyopathies (2) HFrEF (heart failure with reduced ejection fraction): Status: Acute Code(s): I50.20 - Unspecified systolic (congestive) heart failure (3) Atypical pneumonia: Status: Acute Code(s): J18.9 - Pneumonia, unspecified organism (4) Hypoxemia: Status: Acute Code(s): R09.02 - Hypoxemia (5) HTN (hypertension), benign: Status: Acute Code(s): I10 - Essential (primary) hypertension (6) Morbid obesity with BMI of 40.0-44.9, adult: Status: Chronic Code(s): E66.01 - Morbid (severe) obesity due to excess calories; Z68.41 - Body mass index [BMI] 40.0-44.9, adult Plan #Hypoxia 2/2 atypical pneumonia and COPD exacerbation w/ hemoptysis #FADY/chronic respiratory failure #hx non ischemic cardiomyopathy/pulmonary hypertension #Alcohol use disorder #hx ckd stage IIIa #afib and history of PE 2015 #Hypertension Medications at Discharge Home Medications rosuvastatin 5 mg tablet (Crestor) 10 mg PO DAILY cholesterol 06/18/19 acetaminophen 500 mg tablet 1,000 mg PO DAILY PRN PRN Pain 1-10 Or Fever 08/01/20 cholecalciferol (vitamin D3) 10 mcg (400 unit) capsule 4,000 unit PO DAILY supplement 08/01/20 folic acid 1 mg tablet 1 mg PO DAILY supplement 08/01/20 sildenafil (pulm.hypertension) 20 mg tablet 20 mg PO TID pulmonary HTN 05/01/21 fluticasone fur. 100 mcg-umeclid 62.5 mcg-vilant 25 mcg inhalat.powder (Trelegy Ellipta) 1 inh inhalation DAILY COPD 01/20/22 trazodone 100 mg tablet 100 mg PO QHS PRN PRN Insomnia 14 days #14 tabs 01/24/22 bupropion HCl 300 mg 24 hr tablet, extended release 300 mg PO DAILY mood 05/16/22 empagliflozin 10 mg tablet (Jardiance) 10 mg PO DAILY diabetes #90 tabs 07/18/22 pantoprazole 40 mg tablet,delayed release 40 mg PO QAM acid reflux #30 tabs 08/13/22 metoprolol tartrate 25 mg tablet 25 mg PO Q12 high blood pressure #180 tabs 10/23/22 flecainide 100 mg tablet 50 mg (1/2 x 100 mg) PO BID heart rhythm #60 tabs 10/28/22 ursodiol 300 mg capsule 300 mg PO BID heart #180 caps 03/07/23 apixaban 5 mg tablet (Eliquis) 5 mg PO BID blood thinner #60 tabs 06/02/23 hydroxychloroquine 200 mg tablet (Plaquenil) 400 mg (2 x 200 mg) PO DAILY arthritis #1 TAB 06/13/23 albuterol sulfate 90 mcg/actuation breath activated powder inhaler 2 inh inhalation Q4H PRN shortness of breath 06/24/23 vitamin E mixed 1,000 unit capsule 400 unit PO DAILY general health 06/24/23 amoxicillin 875 mg-potassium clavulanate 125 mg tablet 1 tab PO BID 5 days #10 tabs 06/26/23 furosemide 40 mg tablet 40 mg PO DAILY PRN weight gain #30 tabs 06/26/23 prednisone 20 mg tablet See Taper PO BREAKFAST #32 tabs 06/26/23 Hospital Course Summary of Care Provided Minutes Spent on Discharge: 36 Hospital Course: Patient is a 52-year-old female history of alcohol abuse, atrial fibrillation, COPD, CKD, DVT, FADY on CPAP, nonischemic cardiomyopathy who presented to [facility] 06/24/2023 with increasing shortness of breath above her baseline. Symptoms started same day of presentation and she had associated hemoptysis. She had been having increasing shortness of breath over the past month with multiple pulmonology evaluations with her corporate strategy intern Dr. Lugo and thinks she had been on steroids and noted in the past couple weeks that she had pulmonary function test which had worsened. On presentation she said she had a temp of more than 100.4 ?F at home and some chills and she has been having cough with posttussis gagging and some hemoptysis more so over the past 24 to 48 hours and additionally had a white blood cell count of 18.2. Denies any weight gain or any increase in swelling, only takes Lasix as needed at home at baseline. Based on her symptoms and initial imaging there was concern she had an atypical pneumonia, also had slight increase in BNP and some lower extremity swelling and was given IV Lasix which quickly improved without aspect, she did improve some on antibiotics but had slow to improve symptoms and was placed on a steroid taper given her history which significantly improved respiratory and clinical status and was felt there is component of acute exacerbation of COPD. Patient was ambulated in ED and could not maintain O2 sats even on 6 L of O2 but was ambulated day of discharge and needed 2 L with ambulation, much improved, will likely only need the short-term at home and patient verbalized understanding. Patient is ambulatory in the home and in the community and requires home oxygen with portability. Additionally she was placed on CIWA during her admission and symptoms did begin to improve from a withdrawal standpoint and patient reports intent to quit drinking and smoking and will discuss this with her primary care physician. On day of discharge feeling significantly better, discharge instructions as follows: -You will be discharged on Augmentin 875 mg twice daily for another 5 days -Please follow-up with your lung and heart doctors upon discharge -You will be discharged on a prednisone taper: -60 mg daily x3 days -50mg daily x3 days -40mg daily x3 days -30mg daily x3 days -20mg daily x3 days -10mg daily x3 days -Weigh yourself every day. A sudden weight gain can mean you are retaining fluid. Weigh yourself at the same time of day and in the same kind of clothes. Ideally, weigh yourself first thing in the morning after you empty your bladder, but before you eat breakfast. -Please call your physician if your weight goes up by more than 2 pounds in 1 day or 5 pounds in 1 week. This can be a sign that you are retaining more fluid than you should be. Clues to weight gain include checking your ankles for swelling, or noticing you are short of breath when you lie down -Please limit your sodium intake to less than 3 g/day. Here are tips: Limit canned, dried, packaged, and fast foods. Don't add salt to your food at the table. Season foods with herbs instead of salt when you cook. When you eat out, ask that the page makeup system operator not add any salt to your dish. Don't eat fried or greasy foods. Be careful of bottled beverages. They can contain a lot of salt -Call 911 right away if you have: -Severe shortness of breath, such that you can't catch your breath even while resting -Severe chest pain that does not resolve with rest or nitroglycerin -Colo, foamy mucus with cough and shortness of breath -An ongoing rapid or irregular heartbeat -Passing out or fainting -Stroke symptoms such as sudden numbness or weakness on one side of your face, arm, or leg or sudden confusion, trouble speaking or vision changes - It is strongly advised that you refrain from any further alcohol use. Please call [facility] located at [address] [place] [phone] (ph [phone]) if you are interested in further resources -Please call your primary care provider's office upon discharge to schedule a hospital follow up within 1 week. -For any concerning signs or symptoms please call 911 or proceed to the nearest emergency department Physical Exam Narrative General: Alert, oriented, appears tired HEENT: Atraumatic, normocephalic Eyes: Anicteric, normal conjunctiva, extraocular movements grossly intact Neck: Supple Respiratory: Somewhat diminished bilaterally but improving air movement, normal respiratory effort Cardiovascular: Regular rate GI: Soft, nontender, nondistended Extremities: No edema, slight wrinkling Musculoskeletal: Moving all extremities Neuro: No overt focal neurological deficits, no tremor in hands Skin: No rashes appreciated Psych: Cooperative Weight / BMI Weight Weight: 113.8 kg Body Mass Index (BMI) 40.4 ABG / Lab / Microbiology Data 06/26/23 07:25 06/26/23 07:25 Laboratory: Laboratory Results - last 24 hr 06/24/23 17:30: Mycoplasma pneumon IgG < 100, Mycoplasma pneumon IgM < 770 06/26/23 07:25: WBC 5.6, RBC 3.98 L, Hgb 12.3, Hct 38.8, MCV 97.5, MCH 30.9, MCHC 31.7 L, RDW Std Deviation 46.5 H, RDW Coeff of Leighton 13.0, Plt Count 159, MPV 9.4, Immature Gran % (Auto) 1.100 H, Neut % (Auto) 78.0 H, Lymph % (Auto) 9.4 L, [place] % (Auto) 9.2, Eos % (Auto) 1.4, Baso % (Auto) 0.9, Absolute Neuts (auto) 4.4, Absolute Lymphs (auto) 0.53 L, Nucleated RBC % 0, Differential Comment SCANNED, Sodium 139, Potassium 3.4 L, Chloride 105, Carbon Dioxide 26.0, Anion Gap 8, BUN 23 H, Creatinine 1.25 H, Estim Creat Clear Calc 48.16, Est GFR (MDRD) Af Amer 57 L, Est GFR (MDRD) Non-Af 47 L, BUN/Creatinine Ratio 18.4, Glucose 109 H, Calcium 8.6 Microbiology: Microbiology 06/25/23 02:10 Urine, Clean Catch Legionella Antigen - Final 06/25/23 02:10 Urine, Clean Catch Streptococcus pneumoniae Antigen (M - Final 06/24/23 23:25 Mucosa - Nasopharyngeal Respiratory Panel (PCR) - Final 06/24/23 17:30 Nasal Secretion SARS-CoV-2 & FLU Antigen (Rapid) - Final D/C Instructions Discharge Diet: - (-DASH diet, 3000 mg sodium restriction, 2 L fluid restriction) Meaningful Use Info Meaningful Use Diagnoses (Choose all that apply): None applicable Discharge Plan Admission Admit Date/Time: 06/24/23 21:01 Primary Reason for Your Visit: Shortness of breath Attending Provider: Rose Marie Serrano Primary Care Provider: Didier Watkins Consulting Providers: Hung Vinson Instructions Patient Instructions: Asthma and COPD Additional Instructions / Restrictions: DISCHARGE INSTRUCTIONS PLEASE READ *Please take this with you to your next doctors appointment* -You will be discharged on Augmentin 875 mg twice daily for another 5 days -Please follow-up with your lung and heart doctors upon discharge -You will be discharged on a prednisone taper: -60 mg daily x3 days -50mg daily x3 days -40mg daily x3 days -30mg daily x3 days -20mg daily x3 days -10mg daily x3 days -Weigh yourself every day. A sudden weight gain can mean you are retaining fluid. Weigh yourself at the same time of day and in the same kind of clothes. Ideally, weigh yourself first thing in the morning after you empty your bladder, but before you eat breakfast. -Please call your physician if your weight goes up by more than 2 pounds in 1 day or 5 pounds in 1 week. This can be a sign that you are retaining more fluid than you should be. Clues to weight gain include checking your ankles for swelling, or noticing you are short of breath when you lie down -Please limit your sodium intake to less than 3 g/day. Here are tips: Limit canned, dried, packaged, and fast foods. Don't add salt to your food at the table. Season foods with herbs instead of salt when you cook. When you eat out, ask that the page makeup system operator not add any salt to your dish. Don't eat fried or greasy foods. Be careful of bottled beverages. They can contain a lot of salt -Call 911 right away if you have: -Severe shortness of breath, such that you can't catch your breath even while resting -Severe chest pain that does not resolve with rest or nitroglycerin -Colo, foamy mucus with cough and shortness of breath -An ongoing rapid or irregular heartbeat -Passing out or fainting -Stroke symptoms such as sudden numbness or weakness on one side of your face, arm, or leg or sudden confusion, trouble speaking or vision changes - It is strongly advised that you refrain from any further alcohol use. Please call [facility] located at [address] [place] [phone] (ph [phone]) if you are interested in further resources -Please call your primary care provider's office upon discharge to schedule a hospital follow up within 1 week. -For any concerning signs or symptoms please call 911 or proceed to the nearest emergency department Discharge Orders/Prescriptions Prescriptions: New prednisone 20 mg Tablet See Taper PO BREAKFAST Qty: 32 0RF Taper: Prednisone Taper 60 mg WITH BREAKFAST for 3 Days and 0 Hour 50 mg WITH BREAKFAST for 3 Days and 0 Hour 40 mg WITH BREAKFAST for 3 Days and 0 Hour 30 mg WITH BREAKFAST for 3 Days and 0 Hour 20 mg WITH BREAKFAST for 3 Days and 0 Hour 10 mg WITH BREAKFAST for 3 Days and 0 Hour amoxicillin-pot clavulanate 875-125 mg tablet 1 tab PO BID 5 Days Qty: 10 0RF Continued rosuvastatin [Crestor] 5 mg tablet 10 mg PO DAILY sildenafil (pulm.hypertension) 20 mg tablet 20 mg PO TID pantoprazole 40 mg tablet,delayed release (DR/EC) 40 mg PO QAM Qty: 30 12RF Jardiance 10 mg tablet 10 mg PO DAILY Qty: 90 3RF metoprolol tartrate 25 mg tablet 25 mg PO Q12 Qty: 180 3RF flecainide 100 mg tablet 50 mg PO BID Qty: 60 11RF hydroxychloroquine [Plaquenil] 200 mg tablet 400 mg PO DAILY Qty: 1 0RF acetaminophen 500 MG tablet 1,000 mg PO DAILY PRN PRN (Reason: Pain 1-10 Or Fever) folic acid 1 MG tablet 1 mg PO DAILY cholecalciferol (vitamin D3) 10 MCG capsule 4,000 unit PO DAILY Trelegy Ellipta 100-62.5-25 mcg blister with device 1 inh INHALATION DAILY Patient Comments: INHALE 1 (ONE) PUFF FOLLOWED BY [facility] trazodone 100 mg Tablet 100 mg PO QHS PRN PRN (Reason: Insomnia) 14 Days Qty: 14 0RF bupropion HCl 300 mg tablet extended release 24 hr 300 mg PO DAILY vitamin E mixed 1,000 unit capsule 400 unit PO DAILY albuterol sulfate 90 mcg/actuation aerosol powdr breath activated 2 inh inhalation Q4H PRN (Reason: shortness of breath) ursodiol 300 mg capsule 300 mg PO BID Qty: 180 3RF Eliquis 5 mg tablet 5 mg PO BID Qty: 60 11RF Changed furosemide 40 mg tablet 40 mg PO DAILY PRN (Reason: weight gain) Qty: 30 0RF Patient Comments: for ankle swelling. pt has pills from old script and takes on occasion Discontinued celecoxib [Celebrex] 100 mg capsule 100 mg PO DAILY Hold Instructions: MANJINDER amlodipine [Norvasc] 5 mg tablet 5 mg PO DAILY Qty: 30 11RF Referrals / Follow Up: Didier Watkins MD [Primary Care Provider] - 07/09/23 9:30 am Disposition Disposition (needs filled in before D/C Order can be placed): Home, Self Care Charges/Coding Visit Charges Inpatient E&M: 12350 Disch Hosp >30min
--- NOTE | 2023-06-26 16:23 | CASEMGMT ---
CATHIE CM NOTE: Pt being discharged. Home O2 testing has been completed and pt qualifies for O2 @ 2 l/m w/exertion. CATHIE CM to room. Questions answered re: Home O2 set up. Pt denies having any other discharge planning needs or concerns. Script obtained and sent to [facility] via [facility]. Call to Mariann @ [facility] and she was made aware of need of new O2 set up and states Eduardo will be up to meet w/pt and will deliver portable O2 tank to pt's room. Andreia DE LA TORREN RN CM
== END 2023-06-26 17:12 | disposition home or self-care (01) | DRG 139 ==
LOC: ED 20:30 → PCU 21:26
PROVIDERS: Admitting Provider Hospitalist; Emergency Provider Emergency Medicine; PCP Family Medicine; Visit Provider Internal Medicine
DX: J18.9 Pneumonia, unspecified organism (principal); I13.0 Hypertensive heart and chronic kidney disease with heart failure and stage 1 through stage 4 chronic kidney disease, or unspecified chronic kidney disease; I42.8 Other cardiomyopathies; J96.11 Chronic respiratory failure with hypoxia; I50.32 Chronic diastolic (congestive) heart failure; J44.1 Chronic obstructive pulmonary disease with (acute) exacerbation; N18.31 Chronic kidney disease, stage 3a; E66.01 Morbid (severe) obesity due to excess calories; J44.0 Chronic obstructive pulmonary disease with (acute) lower respiratory infection; I48.91 Unspecified atrial fibrillation; E78.5 Hyperlipidemia, unspecified; G47.33 Obstructive sleep apnea (adult) (pediatric); Z79.51 Long term (current) use of inhaled steroids; F41.0 Panic disorder [episodic paroxysmal anxiety]; Z79.01 Long term (current) use of anticoagulants; R04.2 Hemoptysis; Z86.711 Personal history of pulmonary embolism
CPT/HCPCS: 36415; 71046; 71260; 80048; 83880; 84484; 85025; 86738; 87428; 87449; 87633; 93005; 94640; 99285; 99406; J7050; Q9967; 90686; A4216; J1940

== ENCOUNTER → 2023-06-30 | Outpatient (CLI) | payer MEDICAID, SELFPAY ==
--- NOTE | 2023-06-30 11:53 | RAD_ITS ---
EXAM: XR RIGHT HIP WITH PELVIS WHEN PERFORMED, 2 OR 3 VIEWS CLINICAL INDICATION: PAIN TECHNIQUE: Two or three views of the right hip with pelvis when performed. COMPARISON: No relevant prior studies available. FINDINGS: BONES/JOINTS: Old, healed right inferior pubic ramus fracture. No destructive or sclerotic lesions. Note that overlapping bowel shadows may however obscure fine detail. Sacroiliac joint is unremarkable. No widening of the pubic symphysis. The articular structures are unremarkable. SOFT TISSUES: Unremarkable. No soft tissue swelling or gas. RAD/HIP, UNI W/ Pelvis 2-3 Views IMPRESSION: 1. No acute abnormalities identified involving the pelvis or right hip. 2. Old, healed right inferior pubic ramus fracture. Electronically Signed: Imer Moy MD at 3:22 EDT ,
--- NOTE | 2023-06-30 11:53 | RAD_ITS ---
EXAM: XR LUMBOSACRAL SPINE, 2 OR 3 VIEWS CLINICAL INDICATION: LUMBAR STENOSIS TECHNIQUE: Frontal and lateral views of the lumbar spine and sacrum. COMPARISON: No relevant prior studies available. FINDINGS: VERTEBRAE: Facet joint hypertrophy. Preserved vertebral body height. No fracture. No spondylolisthesis. Preservation of the normal lumbar lordosis. DISC SPACES: Degenerative changes of the intervertebral discs. GASTROINTESTINAL TRACT: Unremarkable as visualized. Included bowel gas pattern is non-obstructive. RAD/Lumbar Spine 2 or 3 Views IMPRESSION: 1. No acute injuries identified involving the lumbar spine. 2. Degenerative changes. Electronically Signed: Imer Moy MD at 0:53 EDT ,
--- NOTE | 2023-06-30 12:00 | RAD_ITS ---
EXAM: XR LEFT HIP WITH PELVIS WHEN PERFORMED, 2 OR 3 VIEWS CLINICAL INDICATION: PAIN TECHNIQUE: Two or three views of the left hip with pelvis when performed. COMPARISON: No relevant prior studies available. FINDINGS: BONES/JOINTS: Old, healed right inferior pubic ramus fracture. No destructive or sclerotic lesions. Note that overlapping bowel shadows may however obscure fine detail. Sacroiliac joint is unremarkable. No widening of the pubic symphysis. The articular structures are unremarkable. SOFT TISSUES: Unremarkable. No soft tissue swelling or gas. RAD/HIP, UNI W/ Pelvis 2-3 Views IMPRESSION: No significant abnormalities identified involving the left hip. Electronically Signed: Imer Moy MD at 3:23 EDT ,
== END | disposition home or self-care (01) ==
LOC: MTRAD 11:52
PROVIDERS: PCP Family Medicine; Referring Provider Nurse Practitioner Acute Care; Visit Provider Nurse Practitioner Acute Care
DX: M46.96 Unspecified inflammatory spondylopathy, lumbar region (principal); M51.37 Other intervertebral disc degeneration, lumbosacral region; M25.559 Pain in unspecified hip; M54.17 Radiculopathy, lumbosacral region; M47.817 Spondylosis without myelopathy or radiculopathy, lumbosacral region; M48.07 Spinal stenosis, lumbosacral region
CPT/HCPCS: 72100; 73502

== ENCOUNTER → 2023-07-01 | Outpatient (CLI) | payer MEDICAID, SELFPAY ==
[2023-07-01 16:31] LABS: BNP,B-Type NATRIURETIC PEPTIDE 67.2 pg/mL (0-100)
[2023-07-01 16:32] LABS: BUN 50 mg/dL (7-18); Creatinine, Serum 1.55 mg/dL (0.55-1.02); EST Glomerular Filtration Rate 37 mL/min (>60); Est Glom Filt Rate - Afr Amer 45 mL/min (>60)
== END | disposition home or self-care (01) ==
PROVIDERS: PCP Family Medicine; Referring Provider Internal Medicine Pulmonary Disease; Visit Provider Internal Medicine Pulmonary Disease
DX: I27.0 Primary pulmonary hypertension (principal); J44.9 Chronic obstructive pulmonary disease, unspecified
CPT/HCPCS: 36415; 82565; 83880; 84520

== ENCOUNTER → 2023-07-30 | Outpatient (CLI) | payer MEDICAID, SELFPAY ==
[2023-07-30 17:59] LABS: ALB/GLOB Ratio 0.7 RATIO (0.9-2.4); AST(SGOT) 18 U/L (15-37); Alanine Aminotransfer ALT/SGPT 22 U/L (13-56); Albumin, Serum 3.3 g/dL (3.2-5.0); Alkaline Phosphatase 96 U/L (45-117); Anion Gap 7 (5-15); BUN 15 mg/dL (7-18); BUN/Creat Ratio 11.2 RATIO (10-20); Calcium,Total 8.8 mg/dL (8.5-10.1); Chloride 107 mmol/L (98-107); Creatinine, Serum 1.34 mg/dL (0.55-1.02); EST Glomerular Filtration Rate 44 mL/min (>60); Est Glom Filt Rate - Afr Amer 53 mL/min (>60); Globulin 4.5 g/dL (2.2-4.2); Glucose 107 mg/dL (74-106); Protein, Total 7.8 g/dL (6.4-8.2); Sodium Level 136 mmol/L (136-145)
== END | disposition home or self-care (01) ==
LOC: MTLAB 15:57
PROVIDERS: PCP Family Medicine; Referring Provider Family Medicine; Visit Provider Family Medicine
DX: N19 Unspecified kidney failure (principal)
CPT/HCPCS: 36415; 80053

== ENCOUNTER → 2023-10-10 | Outpatient (CLI) | payer MEDICAID, SELFPAY ==
[2023-10-10 17:45] LABS: ALB/GLOB Ratio 0.8 RATIO (0.9-2.4); AST(SGOT) 13 U/L (15-37); Alanine Aminotransfer ALT/SGPT 19 U/L (13-56); Albumin, Serum 3.3 g/dL (3.2-5.0); Alkaline Phosphatase 83 U/L (45-117); Anion Gap 6 (5-15); BUN 15 mg/dL (7-18); Chloride 110 mmol/L (98-107); Cholesterol 136 mg/dL (200); Creatinine, Serum 1.07 mg/dL (0.55-1.02); EST Glomerular Filtration Rate 57 mL/min (>60); Est Glom Filt Rate - Afr Amer 69 mL/min (>60); Globulin 3.9 g/dL (2.2-4.2); Glucose 100 mg/dL (74-106); High Density Lipoprotein 66 mg/dL; Potassium 3.8 mmol/L (3.5-5.1); Protein, Total 7.2 g/dL (6.4-8.2); Sodium Level 140 mmol/L (136-145); Triglycerides 160 mg/dL; Very Low Density Lipoprotein 32 mg/dL (5-40)
== END | disposition home or self-care (01) ==
LOC: MFPLAB 14:58
PROVIDERS: PCP Family Medicine; Visit Provider Family Medicine
DX: I50.9 Heart failure, unspecified (principal)
CPT/HCPCS: 36415; 80053; 80061

== ENCOUNTER → 2023-12-11 | Outpatient (CLI) | payer MEDICAID, SELFPAY ==
--- NOTE | 2023-12-11 13:43 | ECHOD_ITS ---
Reason For Study: CHF Procedure This was a 2D Doppler, Color Flow transthoracic echocardiogram. The study was technically difficult. Due to respiratory interference. Exam performed in department. Left Ventricle Normal LV size. The estimated ejection fraction is 55 %. Unable to assess diastolic dysfunction. No regional wall motion abnormalities noted. Right Ventricle Normal RV size. Normal systolic function. Atria The left atrium is mildly enlarged. Normal right atrium. No doppler evidence for ASD. Mitral Valve There is moderate mitral annular calcification. There is no mitral valve stenosis. No mitral valve insufficiency. Tricuspid Valve There is no tricuspid stenosis. Trivial tricuspid valve insufficiency. Unable to estimate RV systolic pressure due to insufficient tricuspid regurgitant envelope. Aortic Valve Trisinus/trileaflet aortic valve. There is no aortic stenosis. No aortic valve insufficiency. Pulmonic Valve There is no pulmonic valvular stenosis. Trivial pulmonic valve insufficiency. Great Vessels Normal aortic root. Pericardium/Pleural No pericardial effusion. MMode/2D Measurements & Calculations LVIDd: 5.2 cm IVSd: 1.2 cm Ao root diam: 3.6 cm LVIDs: 3.9 cm LVPWd: 1.0 cm FS: 25.7 % LAV(MOD-bp): 115.9 ml LVAd ap4: 29.3 cm2 SV(MOD-sp4): 56.9 ml LAV(MOD-bp) Indexed: 51.4 ml/m2 LVLd ap4: 7.0 cm LAV(MOD-sp2): 112.2 ml EDV(MOD-sp4): 101.7 ml LAV(MOD-sp4): 116.7 ml EDV(sp4-el): 104.8 ml LVAs ap4: 17.5 cm2 LVLs ap4: 5.9 cm ESV(MOD-sp4): 44.8 ml ESV(sp4-el): 44.3 ml EF(MOD-sp4): 55.9 % EF(sp4-el): 57.8 % SV(sp4-el): 60.5 ml LA A4 area: 31.6 cm2 LA dimension(2D): 6.1 cm RA A4 area: 18.6 cm2 TAPSE: 2.1 cm Time Measurements MV dec time: 0.31 sec Doppler Measurements & Calculations MV E max nino: 101.5 cm/sec Lat Peak E' Nino: 7.0 cm/sec Med Peak E' Nino: 5.7 cm/sec MV A max nino: 117.7 cm/sec E/E' lat: 14.5 E/E' med: 17.8 MV E/A: 0.86 MV V2 max: 121.4 cm/sec MV P1/2t max nino: 105.3 cm/sec Ao V2 max: 114.9 cm/sec MV max P.9 mmHg MV P1/2t: 106.7 msec Ao max P.3 mmHg MV V2 mean: 65.5 cm/sec Ao V2 mean: 78.7 cm/sec MV mean P.0 mmHg MV dec slope: 289.2 cm/sec2 Ao mean P.7 mmHg MV V2 VTI: 42.1 cm MVA(P1/2t): 2.1 cm2 Ao V2 VTI: 22.9 cm PA V2 max: 122.3 cm/sec TR max nino: 304.5 cm/sec PA V2 mean: 74.9 cm/sec TR max P.1 mmHg PA V2 VTI: 29.2 cm ECHO/Echo Complete Interpretation Summary The estimated ejection fraction is 55 %. Unable to assess diastolic dysfunction. The left atrium is mildly enlarged. Ordering Physician: Didier Watkins Referring Physician: Didier Watkins Performed By: Alaina Posadas, BAUDILIO, RVT
== END | disposition home or self-care (01) ==
PROVIDERS: PCP Family Medicine; Referring Provider Family Medicine; Visit Provider Family Medicine
DX: I50.9 Heart failure, unspecified (principal); I51.7 Cardiomegaly
CPT/HCPCS: 93306

== ENCOUNTER → 2023-12-24 | Outpatient (CLI) | payer MEDICAID, SELFPAY ==
--- NOTE | 2023-12-24 09:19 | US_ITS ---
STUDY: ABDOMINAL ULTRASOUND REASON FOR EXAM: Female, 53 years old. NAFLD -- R/O liver mass. ascites TECHNIQUE: Transabdominal ultrasound was performed with real-time and static dailey scale imaging. TECHNICAL QUALITY: Adequate. COMPARISON: Comparison is made with prior study dated January 03, 2023. FINDINGS: Liver: The liver is enlarged and measures 19.8 cm. There is increased echogenicity consistent with a mild degree of fatty infiltration of the liver. Fatty infiltration. The bile ducts are within normal limits. There is hepatic color flow. The direction of portal flow is hepatopetal. There is no demonstrated mass lesion. Gallbladder: The patient is status post cholecystectomy. Common Bile Duct (C.B.D.): The common bile duct measures 3.7 mm. Pancreas: Normal size of the head, body and tail of the pancreas. There is increased echogenicity of the pancreas. There is no demonstrated pancreatic mass or cyst. Spleen: There is splenomegaly. The spleen measures 13.1 cm x 5.4 cm x 4.6 cm. Right Kidney: Normal size of the right kidney. The right kidney measures 10.5 cm x 5.5 cm x 4.9 cm. Normal renal cortex. The right cortex measures 1.3 cm. 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 There is no right hydronephrosis. Left Kidney: Normal size of the left kidney. The left kidney measures 11.9 cm x 5.3 cm x 5.5 cm. Normal renal cortex. The left cortex measures 1.3 cm. There is no demonstrated renal mass or cyst. There is no left hydronephrosis. Aorta: Unremarkable I.V.C.: The IVC is patent. There is no ascites. IMPRESSION: Hepatomegaly and mild degree of fatty infiltration of the liver. Status post cholecystectomy. Mild splenomegaly. Electronically Signed: George Kaplan MD at 15:11 EDT , STUDY: ABDOMINAL ULTRASOUND - ELASTOGRAPHY REASON FOR VISIT: Female, 53 years old. NAFLD. TECHNIQUE: Liver stiffness measurements were obtained on a IQcard 85 ultrasound machine using a CA 1-7 probe following the SRU guidelines. 3 measurements were obtained using a 2-D-SWE method. TheIQR/M was 12% suggesting a quality data set. TECHNICAL QUALITY: Adequate. COMPARISON: None. FINDINGS: Liver: There is no demonstrated mass lesion. Median liver stiffness measured 9.6 kPa. Abdomen: There is no demonstrated mass lesion. US/ABD Complete w/ Elastography IMPRESSION: Liver stiffness measures 9.6 kPa compatible with F2-F3 (Mild to moderate liver fibrosis) Metavir score. Electronically Signed: George Kaplan MD at 15:12 EDT ,
== END | disposition home or self-care (01) ==
PROVIDERS: PCP Family Medicine; Referring Provider Internal Medicine; Visit Provider Internal Medicine
DX: K76.0 Fatty (change of) liver, not elsewhere classified (principal); K74.00 Hepatic fibrosis, unspecified
CPT/HCPCS: 76700; 76981

== ENCOUNTER → 2024-02-23 | Outpatient (CLI) | payer OTHER, SELFPAY ==
--- NOTE | 2024-02-23 09:04 | NM_ITS ---
CLINICAL: 53-year-old female with history of pulmonary hypertension. VENTILATION-PERFUSION LUNG SCINTIGRAPHY COMPARISON: Previous perfusion lung scintigraphy study report dated 08/05/2018 FINDINGS: The patient was administered 49.3 mCi 99m Tc DTPA aerosol. The aerosol ventilation study demonstrates heterogeneous ventilation defined in the right height and left lung silva. Central clumping of aerosol is identified in the bilateral hemithorax. Following the intravenous administration of 5.3 mCi of 99m Tc MAA, the pulmonary perfusion study reveals nonuniform perfusion defined in the right-left lung silva of less significant severity than the ventilation pattern. There are no moderate subsegmental or large segmental ventilation-perfusion mismatches identified. NM/Lung Scan Vent/Perf IMPRESSION: 1. VERY LOW PROBABILITY FOR PULMONARY EMBOLUS (<10%) 99m Tc DTPA aerosol ventilation / 99m Tc MAA pulmonary perfusion imaging examination, according to PIOPED II interpretive criteria with regard given to the presence of 1-3 small subsegmental matched perfusion defects. (Sotsman et al, Radiology 246: 941, 2008 Sosandy et al, J Nucl Med 49: 1741, 2008). 2. Central clumping of aerosol is consistent with obstructive airway mechanics or clinical tachypnea. 3. Overall compared to the previous ventilation-perfusion lung scan report dated 08/05/2018, there is minimal interval change. Electronically Signed: Manuel Meyer DO at 10:47 EDT ,
== END | disposition home or self-care (01) ==
PROVIDERS: PCP Family Medicine; Referring Provider Internal Medicine Pulmonary Disease; Visit Provider Internal Medicine Pulmonary Disease
DX: I27.20 Pulmonary hypertension, unspecified (principal)
CPT/HCPCS: 78582; A9540; A9567

== ENCOUNTER → 2024-04-19 | Outpatient (CLI) | payer OTHER, SELFPAY ==
[2024-04-19 10:33] LABS: Anion Gap 6 (5-15); BUN 27 mg/dL (7-18); BUN/Creat Ratio 24.8 RATIO (10-20); Calcium,Total 9.2 mg/dL (8.5-10.1); Chloride 107 mmol/L (98-107); Cholesterol 207 mg/dL (200); Creatinine, Serum 1.09 mg/dL (0.55-1.02); EST Glomerular Filtration Rate 55 mL/min (>60); Est Glom Filt Rate - Afr Amer 67 mL/min (>60); Glucose 108 mg/dL (74-106); High Density Lipoprotein 118 mg/dL; Potassium 4.2 mmol/L (3.5-5.1); Sodium Level 139 mmol/L (136-145); Triglycerides 113 mg/dL; Very Low Density Lipoprotein 23 mg/dL (5-40)
== END | disposition home or self-care (01) ==
LOC: MTLAB 08:17
PROVIDERS: PCP Family Medicine; Referring Provider Family Medicine; Visit Provider Family Medicine
DX: I50.9 Heart failure, unspecified (principal)
CPT/HCPCS: 36415; 80048; 80061

== ENCOUNTER → 2024-06-28 | Outpatient (CLI) | payer OTHER, SELFPAY ==
[2024-06-28 18:12] LABS: Prothrombin Time (Protime)PT. 30.8 SECONDS (11.7-14.9)
[2024-06-28 18:17] LABS: Hematocrit 39.6 % (37-47); Hemoglobin 12.7 g/dL (12.0-15.0); Mean Corp Hgb Conc 32.1 g/dL (32-36); Mean Corpuscular Hgb 31.1 pg (27.0-32.0); Mean Corpuscular Volume 97.1 fL (81-99); Mean Platelet Vol. 9.4 fl (6.2-12.0); Platelet Count 179 K/mm3 (150-450); RBC Distribution Width CV 13.3 % (11.6-14.6); RBC Distribution Width SD 47.8 fl (35.1-43.9); Red Blood Count 4.08 M/mm3 (4.2-5.4); White Blood Count 5.3 K/mm3 (4.4-11.0)
[2024-06-28 18:45] LABS: BNP,B-Type NATRIURETIC PEPTIDE 267.9 pg/mL (0-100)
[2024-06-28 18:51] LABS: Cholesterol 178 mg/dL (200); High Density Lipoprotein 106 mg/dL; Triglycerides 241 mg/dL; Very Low Density Lipoprotein 48 mg/dL (5-40)
== END | disposition home or self-care (01) ==
LOC: MFPLAB 16:22
PROVIDERS: PCP Family Medicine; Referring Provider Family Medicine; Visit Provider Family Medicine
DX: R06.02 Shortness of breath (principal); I48.0 Paroxysmal atrial fibrillation; Z79.01 Long term (current) use of anticoagulants
CPT/HCPCS: 36415; 80061; 83880; 85027; 85610

== ENCOUNTER 2024-07-08 06:12 | Outpatient (RCR) | payer OTHER, SELFPAY ==
[2024-07-06 17:31] LABS: International Normalized Ratio 2.1; Prothrombin Time (Protime)PT. 23.5 SECONDS (11.7-14.9)
[2024-07-08 08:08] LABS: International Normalized Ratio 1.5; Prothrombin Time (Protime)PT. 18.3 SECONDS (11.7-14.9)
== END 2024-07-31 18:00 | disposition home or self-care (01) ==
LOC: LAB 06:12
PROVIDERS: PCP Family Medicine; Referring Provider Physician Assistant Medical; Visit Provider Physician Assistant Medical
DX: I48.0 Paroxysmal atrial fibrillation (principal); Z79.01 Long term (current) use of anticoagulants
CPT/HCPCS: 36415; 85610

== ENCOUNTER → 2024-08-06 | Outpatient (CLI) | payer OTHER, SELFPAY ==
[2024-08-06 17:36] LABS: Anion Gap 5 (5-15); BUN 21 mg/dL (7-18); BUN/Creat Ratio 18.1 RATIO (10-20); Calcium,Total 8.8 mg/dL (8.5-10.1); Chloride 109 mmol/L (98-107); Creatinine, Serum 1.16 mg/dL (0.55-1.02); EST Glomerular Filtration Rate 51 mL/min (>60); Est Glom Filt Rate - Afr Amer 62 mL/min (>60); Glucose 107 mg/dL (74-106); Potassium 4.1 mmol/L (3.5-5.1); Sodium Level 140 mmol/L (136-145)
== END | disposition home or self-care (01) ==
LOC: MFPLAB 16:08
PROVIDERS: PCP Family Medicine; Referring Provider Family Medicine; Visit Provider Family Medicine
DX: R60.9 Edema, unspecified (principal)
CPT/HCPCS: 36415; 80048

== ENCOUNTER → 2024-09-10 | Outpatient (CLI) | payer OTHER, SELFPAY ==
[2024-09-10 16:48] LABS: Absolute Lymphocyte Count 0.42 X10^3/uL (0.83-4.51); Basophil# 0.04 X10^3/uL; Basophil% 0.8 % (0-1); Eosinophil# 0.01 X10^3/uL; Eosinophils% 0.2 % (0-5); Hematocrit 34.6 % (37-47); Hemoglobin 11.3 g/dL (12.0-15.0); Lymphocyte # 0.42 X10^3/ul (0.83-4.51); Lymphocyte % 8.3 % (19-41); Mean Corp Hgb Conc 32.7 g/dL (32-36); Mean Platelet Vol. 9.2 fl (6.2-12.0); Monocyte# 0.55 X10^3/uL; Monocyte% 10.8 % (0-10); NRBC Flagged by Analyzer 0 % (0-5); Neutrophil # 4.02 X10^3/uL (2.7-7.7); Neutrophil % 79.3 % (47-70); POSITIVE DIFFERENTIAL YES; Platelet Count 161 K/mm3 (150-450); RBC Distribution Width CV 14.3 % (11.6-14.6); Red Blood Count 3.53 M/mm3 (4.2-5.4); White Blood Count 5.1 K/mm3 (4.4-11.0)
[2024-09-10 16:59] LABS: Prothrombin Time (Protime)PT. 42.9 SECONDS (11.7-14.9)
[2024-09-10 17:13] LABS: ALB/GLOB Ratio 0.9 RATIO (0.9-2.4); AST(SGOT) 22 U/L (15-37); Alanine Aminotransfer ALT/SGPT 21 U/L (13-56); Albumin, Serum 3.1 g/dL (3.2-5.0); Alkaline Phosphatase 92 U/L (45-117); Anion Gap 5 (5-15); BUN 14 mg/dL (7-18); BUN/Creat Ratio 15.1 RATIO (10-20); Calcium,Total 8.7 mg/dL (8.5-10.1); Chloride 110 mmol/L (98-107); Creatinine, Serum 0.93 mg/dL (0.55-1.02); EST Glomerular Filtration Rate 67 mL/min (>60); Est Glom Filt Rate - Afr Amer 81 mL/min (>60); Globulin 3.4 g/dL (2.2-4.2); Glucose 108 mg/dL (74-106); Lipase 39 U/L (13-75); Potassium 3.6 mmol/L (3.5-5.1); Protein, Total 6.5 g/dL (6.4-8.2); Sodium Level 140 mmol/L (136-145)
[2024-09-10 17:14] LABS: Vitamin D,25 Hydroxy 43.8 ng/mL
[2024-09-10 17:24] LABS: Hemoglobin A1c 5.2 % (3.8-5.6)
[2024-09-10 17:30] LABS: International Normalized Ratio 4.4
[2024-09-10 19:40] LABS: CRP < 2.90 mg/L (0.0-3.0)
[2024-09-13 15:07] LABS: ANTINUCLEAR ANTIBODIES DIRECT Positive (Negative); Anti-Centromere B Ab <0.2 AI (0.0-0.9); Anti-Chromatin <0.2 AI (0.0-0.9); Anti-Jo <0.2 AI (0.0-0.9); Anti-Mitochondrial AB <20.0 Units (0.0-20.0); Anti-Scleroderma-70 AB <0.2 AI (0.0-0.9); Anti-dsDNA Ab 20 IU/mL (0-9); RNP Ab <0.2 AI (0.0-0.9); SJOGREN'S Anti-SS-A test < 0.2 AI (0.0-0.9); SJOGREN'S Anti-SS-B test < 0.2 AI (0.0-0.9); Smith Ab <0.2 AI (0.0-0.9)
[2024-09-13 15:07] LABS: ANTINUCLEAR ANTIBODIES DIRECT Positive (Negative); Anti-Centromere B Ab <0.2 AI (0.0-0.9); Anti-Chromatin <0.2 AI (0.0-0.9); Anti-Jo <0.2 AI (0.0-0.9); Anti-Scleroderma-70 AB <0.2 AI (0.0-0.9); Anti-dsDNA Ab 21 IU/mL (0-9); RNP Ab <0.2 AI (0.0-0.9); SJOGREN'S Anti-SS-A test < 0.2 AI (0.0-0.9); SJOGREN'S Anti-SS-B test < 0.2 AI (0.0-0.9); Smith Ab <0.2 AI (0.0-0.9)
[2024-09-16 04:07] LABS: AFP, Tumor Marker 5.3 ng/mL (0.0-9.2); Albumin 3.4 g/dL (2.9-4.4); Alpha-1-Globulins 0.2 g/dL (0.0-0.4); Alpha-2-Globulins 0.7 g/dL (0.4-1.0); Anti-Smooth Muscle ABS 1 Units (0-19); Endomysial Antibody IgA Negative (Negative); Gamma Globulin 0.7 g/dL (0.4-1.8); Immunoglobulin A 300 mg/dL (87-352); Immunoglobulin E 12 IU/mL (6-495); Immunoglobulin G 821 mg/dL (586-1602); Immunoglobulin M 81 mg/dL (26-217); PROEL- TOTAL PROTEIN 6.1 g/dL (6.0-8.5); t-Transglutaminase IgA <2 U/mL (0-3)
== END | disposition home or self-care (01) ==
LOC: LAB 15:58
PROVIDERS: PCP Family Medicine; Referring Provider Internal Medicine; Visit Provider Internal Medicine
DX: R19.5 Other fecal abnormalities (principal); I50.810 Right heart failure, unspecified; K76.0 Fatty (change of) liver, not elsewhere classified; K70.0 Alcoholic fatty liver; F10.10 Alcohol abuse, uncomplicated; K58.9 Irritable bowel syndrome, unspecified
CPT/HCPCS: 36415; 80053; 82105; 82274; 82306; 82784; 82785; 83036; 83516; 83630; 83690; 84165; 85025; 85610; 86038; 86140; 86225; 86235; 86255; 86334

== ENCOUNTER → 2024-09-17 | Outpatient (CLI) | payer BC, SELFPAY ==
[2024-09-17 17:25] LABS: International Normalized Ratio 1.3; Prothrombin Time (Protime)PT. 16.2 SECONDS (11.7-14.9)
== END | disposition home or self-care (01) ==
PROVIDERS: PCP Family Medicine; Referring Provider Physician Assistant Medical; Visit Provider Physician Assistant Medical
DX: Z79.01 Long term (current) use of anticoagulants (principal); I48.91 Unspecified atrial fibrillation
CPT/HCPCS: 36415; 85610

== ENCOUNTER 2024-09-27 08:41 | Inpatient (IN) | payer BC, SELFPAY ==
[2024-09-27] VITALS (9 sets, daily range): BP systolic 143–169; BP diastolic 65–138; PULSE 59–66; RESP 16–26; TEMP 36.2–37; O2SAT 92–100; BMI 46.3; BMI 43.8
--- NOTE | 2024-09-27 09:25 | EKG12_ITS ---
Test Reason : SOB Blood Pressure : */* mmHG Vent. Rate : 67 BPM Atrial Rate : 67 BPM P-R Int : 182 ms QRS Dur : 88 ms QT Int : 422 ms P-R-T Axes : 57 49 17 degrees QTcB Int : 445 ms Normal sinus rhythm Low voltage QRS Borderline ECG Confirmed by LEONIDES DIAZ, GENNARO ([id number]), editor at large SHERYL PRAJAPATI ([id number]) on 09/29/2024 6:19:12 AM Referred By: BB/CHELY Confirmed By: GENNARO COYLE MD
[2024-09-27 09:41] LABS: Absolute Lymphocyte Count 0.52 X10^3/uL (0.83-4.51); Basophil# 0.06 X10^3/uL; Basophil% 1.1 % (0-1); Eosinophils% 3.8 % (0-5); Lymphocyte # 0.52 X10^3/ul (0.83-4.51); Lymphocyte % 9.8 % (19-41); Mean Corp Hgb Conc 32.4 g/dL (32-36); Mean Corpuscular Hgb 31.7 pg (27.0-32.0); Mean Platelet Vol. 9.3 fl (6.2-12.0); Monocyte# 0.47 X10^3/uL; Monocyte% 8.8 % (0-10); NRBC Flagged by Analyzer 0 % (0-5); Neutrophil # 4.03 X10^3/uL (2.7-7.7); Neutrophil % 75.6 % (47-70); POSITIVE DIFFERENTIAL YES; Platelet Count 189 K/mm3 (150-450); RBC Distribution Width CV 13.3 % (11.6-14.6); RBC Distribution Width SD 47.2 fl (35.1-43.9); Red Blood Count 3.47 M/mm3 (4.2-5.4); White Blood Count 5.3 K/mm3 (4.4-11.0)
--- NOTE | 2024-09-27 09:50 | RAD_ITS ---
STUDY: X-RAY CHEST REASON FOR EXAM: Female, 53 years old. Dyspnea, ANGELO, edema with 20 pound weight gain TECHNIQUE: PA and lateral views of the chest. COMPARISON: Comparison is made with prior study dated June 24, 2023. FINDINGS: EKG electrodes are seen. Increased interstitial markings suggests a mild degree of CHF. There is no demonstrated pleural abnormality. There is moderate cardiac enlargement. Normal mediastinum and mayra. Normal visualized pulmonary arteries. There is atherosclerotic tortuosity of the aortic arch and descending thoracic aorta. There are diffuse degenerative changes of the visualized thoracic spine. Normal visualized ribs, clavicles, and shoulders. There is no demonstrated abnormality of the visualized soft tissue structures of the upper abdomen. RAD/Chest PA and Lateral IMPRESSION: Cardiomegaly. Mild CHF. Electronically Signed: George Kaplan MD at 10:52 EST ,
[2024-09-27 09:59] LABS: International Normalized Ratio 1.5
[2024-09-27 10:00] LABS: BNP,B-Type NATRIURETIC PEPTIDE 401.6 pg/mL (0-100)
--- NOTE | 2024-09-27 10:08 | ED.VIS.DYS ---
HPI History of Present Illness Chief Complaint: Shortness of Breath Detail of Chief Complaint: Patient was sent from GI office for dyspnea. Informant: patient Onset/Context/Timing Onset: Month(s) (Gradually worse over the past month.) Context: gradual Timing: Continuous and Waxes and wanes Quality: Positive for Dyspnea on exertion and PND; Negative for Orthopnea or Wheezing Current Severity: Mild Maximum Severity: Severe (Having patient rise from 45 degrees to upright causes her to become quite tachypneic. She also has conversational dyspnea.) Worsened by: Exertion and Lying flat Relieved by: Nothing Associated Symptoms Negative for cough, rhinorrhea, post nasal drip, ear pain, fever, sore throat, subjective or chills Chest Pain: Positive for None Narrative Narrative: Patient is a 53-year-old woman. She is known to the heart group. GI contacted [facility]. They recommended she go to the emergency department. Patient's had a 20 pound weight gain over the past 1 month. When asked if she is compliant with her medication and diet she responded she is taking her spironolactone daily. Her last dose of furosemide was 1 week ago. There was no comment regarding compliance with diet. She does admit to swelling of her legs. She does admit to bruising easily since she is on Coumadin. She states she is compliant with her Coumadin. She was following up with GI because of liver issues. She has history of fatty liver per review of old records. Per old records she has history of right-sided heart failure. Patient's blood pressure is elevated. Patient is tachypneic. She is not hypoxic. 1 patient has similar episode she weighed 273 pounds. She was diuresed down to 263. She states her weight today was 283 at the GI office. PE Risk Factors: Negative for Cancer, OCP + Smoking + > 35, Prior DVT or PE, Recent immobilization, Recent surgery or Recent travel Prior similar symptoms: Yes Recent Illness/Hospitalization: Yes PFSH PFSH Medical History Left shoulder pain HTN (hypertension), benign PFO (patent foramen ovale) PAF (paroxysmal atrial fibrillation) Chronic kidney disease (CKD) Secondary pulmonary arterial hypertension HFrEF (heart failure with reduced ejection fraction) Non-ischemic cardiomyopathy Atrial flutter Panic attack Heart failure with preserved ejection fraction Atrial fibrillation Esophageal spasm Osteoarthritis Tubular adenoma of colon Extremity cyanosis Fatty liver Former smoker CPAP (continuous positive airway pressure) dependence History of pain when walking History of edema Patellofemoral syndrome of both knees Bilateral knee pain Paroxysmal atrial fibrillation Hyperthyroidism Former smoker Migraines HLD (hyperlipidemia) Hiatal hernia COPD (chronic obstructive pulmonary disease) Anxiety History of back problems Obstructive sleep apnea Essential (primary) hypertension Hypomagnesemia Iron deficiency Morbid obesity with BMI of 40.0-44.9, adult DVT (deep venous thrombosis) Anemia Pulmonary embolism (04/26/16) Tobacco user GERD (gastroesophageal reflux disease) Depression Allergic rhinitis Alcohol abuse Home Medications ?Medication ?Instructions ?Recorded ?Last Taken ?Type rosuvastatin 5 mg tablet (Crestor) 10 mg PO DAILY cholesterol 06/18/19 09/27/24 History acetaminophen 500 mg tablet 1,000 mg PO DAILY PRN Pain 1- Or 08/01/20 09/13/22 History Fever cholecalciferol (vitamin D3) 10 4,000 unit PO DAILY supplement 08/01/20 09/27/24 History mcg (400 unit) capsule folic acid 1 mg tablet 1 mg PO DAILY supplement 08/01/20 09/27/24 History sildenafil (pulm.hypertension) 20 20 mg PO TID pulmonary HTN 05/01/21 09/27/24 History mg tablet fluticasone fur. 100 mcg-umeclid 1 inh inhalation DAILY COPD 01/20/22 09/27/24 History 62.5 mcg-vilant 25 mcg inhalat.powder (Trelegy Ellipta) bupropion HCl 300 mg 24 hr tablet, 300 mg PO DAILY mood 05/16/22 09/27/24 History extended release hydroxychloroquine 200 mg tablet 400 mg (2 x 200 mg) PO DAILY 06/13/23 09/27/24 Rx (Plaquenil) arthritis #1 TAB albuterol sulfate 90 mcg/actuation 2 inh inhalation Q4H PRN shortness 06/24/23 Unknown History breath activated powder inhaler of breath naltrexone 50 mg tablet 50 mg PO DAILY 08/29/23 09/27/24 History flecainide 50 mg tablet 50 mg PO Q12H #180 tabs 01/14/24 09/27/24 Rx furosemide 40 mg tablet 40 mg PO DAILY PRN weight gain 1 01/19/24 Unknown Rx month #30 tabs ursodiol 300 mg capsule 300 mg PO BID heart 90 days #180 01/19/24 09/27/24 Rx caps pantoprazole 40 mg tablet,delayed 40 mg PO QAM acid reflux 1 month 09/16/24 09/27/24 Rx release #30 tabs metoprolol tartrate 25 mg tablet 25 mg PO Q12H high blood pressure 09/27/24 09/27/24 History spironolactone 25 mg tablet 12.5 mg PO DAILY 09/27/24 09/27/24 History trazodone 100 mg tablet 100 mg PO QHS PRN Insomnia 09/27/24 09/26/24 History vitamin E (dl, acetate) 180 mg 180 mg PO DAILY 09/27/24 09/27/24 History (400 unit) capsule warfarin 4 mg tablet 4 mg PO QPM 09/27/24 09/26/24 History Allergy/AdvReac Type Severity Reaction Status Date / Time doxycycline Allergy Hives Verified 09/27/24 08:42 hydrocodone (From Vicodin) AdvReac Itching Verified 09/27/24 08:42 Family History Mother Breast cancer Cancer lung cancer Father Cancer lung cancer Hypertension High cholesterol Surgical History History of transesophageal echocardiography ([facility]ABEL) (05/23/22) History of cardioversion (05/23/22) History of cardiac catheterization History of repair of hiatal hernia (12/2020) History of cholecystectomy History of nasal surgery History of hysterectomy H/O repair of rotator cuff History of Social History household members: spouse Smoking Status: Former smoker quit date: 06/01/23 alcohol intake: current alcohol intake frequency: 3 or more drinks per day Alcohol type: hard liquor details: Started drinking again recently, has been intermittent. Hard liquor drinks. substance use type: does not use ROS ROS ED Constitutional Constitutional ED: Reports other Details: 20 pound weight gain. ; Denies chills, fever(s), sweats or weight loss Eyes Eyes: Denies blurry vision or change in vision ENT ENT ED: Denies ear pain, rhinorrhea or sore throat Cardiovascular Cardiovascular: Reports orthopnea and paroxysmal nocturnal dyspnea; Denies chest pain, palpitations or racing heartbeat Respiratory/Chest Respiratory/Chest: Reports dyspnea, dyspnea on exertion, orthopnea and paroxysmal nocturnal dyspnea; Denies cough or sputum Gastrointestinal Gastrointestinal: Denies abdominal pain, melena, nausea or vomiting Genitourinary Genitourinary ED: Denies dysuria, hematuria or urinary frequency Musculoskeletal Musculoskeletal: Denies arthralgias, back pain or myalgias Neurologic Neurologic: Denies headache(s) or paresthesias Psychiatric Psychiatric: Denies anxiety or depression Endocrine Endocrinology: Denies cold intolerance or heat intolerance Hematologic/Lymphatic Hematologic/Lymphatic: Reports easy bruising; Denies easy bleeding EXAM Physical Exam Const Vital Signs: 09/27/24 08:42 09/27/24 08:47 09/27/24 09:41 Temperature 98.1 F Temperature Source Oral Pulse Rate 65 60 Respiratory Rate 26 H 20 H Respiratory Effort Short of Breath Labored Respiratory Depth Shallow Respiratory Pattern Tachypnea Blood Pressure 151/90 H 169/138 H Blood Pressure Mean 110 148 Pulse Ox 98 96 Oxygen Delivery Method Room Air Room Air 09/27/24 10:00 Temperature Temperature Source Pulse Rate 60 Respiratory Rate 20 H Respiratory Effort Respiratory Depth Respiratory Pattern Blood Pressure 151/71 H Blood Pressure Mean 97 Pulse Ox 95 Oxygen Delivery Method Positive well nourished and well developed Constitutional Narrative: Patient has conversational dyspnea. Having her rise from 45 degrees to 90 degrees causes her to have significant dyspnea with rate of 31. Patient's BMI is 46.3. General Appearance ED: well developed; Negative for pallor HEENT Reports moist mucous membranes HEENT Narrative: Head is atraumatic normocephalic. Ears normal. Nares patent. Eyes PERRL and EOMs intact bilaterally General Eye ED: Negative for pale conjunctiva or scleral icterus Neck no lymphadenopathy, supple and no meningeal signs Neck Narrative: Unable to assess for JVD due to body habitus. Resp No normal respiratory effort and No clear to auscultation bilaterally Resp Narrative: Respiration is slightly labored. Patient has bilateral rales. There is no expiratory wheezing. Cardio regular rate, regular rhythm, S1 normal heart sound, S2 normal heart sound and no murmurs GI non-tender, non-distended and no masses Auscultation: hypoactive bowel sounds Palpation: soft Back/Spine no CVA tenderness and normal to inspection Back/Spine Narrative: No sacral pitting edema noted. Extremity Negative for normal to inspection Extremity Narrative: Marked edema of the right and left lower extremity. Difficult to palpate pulse because of edema. Neuro oriented x3 and CN's II-XII intact bilaterally Whiting Coma Scale: document GCS findings Spontaneous Obeys Commands Oriented 15 Speech: speech normal Skin no wounds and skin turgor normal General Skin Exam: Negative for jaundice or pallor MDM MDM MDM Narrative Medical decision making narrative: Suspect patient is in congestive heart failure due to noncompliance. Clinically she is fluid overloaded. Woodson was placed and patient received 40 mg of Lasix and she has not taken Lasix since Friday. And I believe that is 9 days ago. Troponin was obtained to rule out recent cardiac ischemic event. Chest x-ray to confirm heart failure and specifically left heart failure. Clinically she has right heart failure. CBC was obtained assess H&H since she has history of anemia. Since she is on Coumadin PT/INR was obtained since she is reporting to bruise easily and to evaluate for over coagulation. History & Record Review Additional record(s) reviewed:: Prior outpatient record (Most recent cardiac echo was performed December 2023. The estimated ejection fraction was 55%. Because of body habitus unable to assess for diastolic dysfunction. Left atrium appeared slightly enlarged.), Prior ED visit and Prior labs Lab Data Attestation: I reviewed the patient's lab results. Lab results narrative: CBC reveals anemia with normal indices. BNP is elevated at 401 and is elevated for patient. INR is subtherapeutic at 1.5. Troponin is normal at 13. Electrolyte panel is unremarkable. Chloride is low elevated 111. Labs: Laboratory Results - last 24 hr 09/27/24 09:05 WBC 5.3 RBC 3.47 L Hgb 11.0 L Hct 34.0 L MCV 98.0 MCH 31.7 MCHC 32.4 RDW Std Deviation 47.2 H RDW Coeff of Leighton 13.3 Plt Count 189 MPV 9.3 Immature Gran % (Auto) 0.900 Neut % (Auto) 75.6 H Lymph % (Auto) 9.8 L [place] % (Auto) 8.8 Eos % (Auto) 3.8 Baso % (Auto) 1.1 H Absolute Neuts (auto) 4.0 Absolute Lymphs (auto) 0.52 L Nucleated RBC % 0 PT 18.0 H INR 1.5 Sodium 141 Potassium 4.0 Chloride 111 H Carbon Dioxide 22.0 Anion Gap 8 BUN 16 Creatinine 0.92 Estim Creat Clear Calc 98.82 Est GFR (MDRD) Af Amer 81 Est GFR (MDRD) Non-Af 67 BUN/Creatinine Ratio 17.3 Glucose 90 Calcium 8.8 Total Bilirubin 0.90 AST 24 ALT 21 Alkaline Phosphatase 101 Troponin I High Sens 13 B-Natriuretic Peptide 401.6 H Total Protein 6.4 Albumin 2.8 L Globulin 3.6 Albumin/Globulin Ratio 0.8 L Radiography Chest X-Ray - ED: 2 View, Read by ED Physician (1008 time of interpretation. 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 Case was discussed with Dr. Henrik alvarado who accepted patient. 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 naltrexone 50 mg tablet 50 mg PO DAILY furosemide 40 mg tablet 40 mg PO DAILY PRN (Reason: weight gain) 30 Days Qty: 30 3RF Patient Comments: for ankle swelling. pt takes on occasion ursodiol 300 mg capsule 300 mg PO BID 90 Days Qty: 180 6RF acetaminophen 500 MG tablet 1,000 mg PO DAILY PRN (Reason: Pain 1-10 Or Fever) folic acid 1 MG tablet 1 mg PO DAILY cholecalciferol (vitamin D3) 10 MCG capsule 4,000 unit PO DAILY Trelegy Ellipta 100-62.5-25 mcg blister with device 1 inh INHALATION DAILY Patient Comments: PT AWARE FAMILY HAS TO BRING. bupropion HCl 300 mg tablet extended release 24 hr 300 mg PO DAILY albuterol sulfate 90 mcg/actuation aerosol powdr breath activated 2 inh inhalation Q4H PRN (Reason: shortness of breath) vitamin E (dl, acetate) 180 mg (400 unit) capsule 180 mg PO DAILY spironolactone 25 mg tablet 12.5 mg PO DAILY Rx Instructions: Hold if serum potassium more than 5.0. warfarin 4 mg tablet 4 mg PO QPM Protocol: Dose Management Condition: Friday Dose/Route: 4 mg Instruction: 1 x 4 mg tablet Condition: Friday Dose/Route: 4 mg Instruction: 1 x 4 mg tablet Condition: Friday Dose/Route: 4 mg Instruction: 1 x 4 mg tablet Condition: Friday Dose/Route: 4 mg Instruction: 1 x 4 mg tablet Condition: Dose/Route: 4 mg Instruction: 1 x 4 mg tablet Condition: Friday Dose/Route: 4 mg Instruction: 1 x 4 mg tablet Condition: Friday Dose/Route: 4 mg Instruction: 1 x 4 mg tablet Protocol Text: Adjustment Start Date: Friday09/17/24 INR Value: 1.3 INR Date: 09/17/24 Recheck Date: 09/24/24 trazodone 100 mg Tablet 100 mg PO QHS PRN (Reason: Insomnia) metoprolol tartrate 25 mg tablet 25 mg PO Q12H flecainide 50 mg tablet 50 mg PO Q12H Qty: 180 3RF pantoprazole 40 mg tablet,delayed release (DR/EC) 40 mg PO QAM 30 Days Qty: 30 6RF Primary Care Provider: Didier Watkins Referrals: Didier Watkins MD [Primary Care Provider] - Print Language: Belarusian
[2024-09-27] MEDS: Furosemide 40 MG/4 ML Vial IV ×3 (10:10→21:10)
[2024-09-27 10:19] LABS: ALB/GLOB Ratio 0.8 RATIO (0.9-2.4); AST(SGOT) 24 U/L (15-37); Alanine Aminotransfer ALT/SGPT 21 U/L (13-56); Albumin, Serum 2.8 g/dL (3.2-5.0); Alkaline Phosphatase 101 U/L (45-117); Anion Gap 8 (5-15); BUN 16 mg/dL (7-18); BUN/Creat Ratio 17.3 RATIO (10-20); Calcium,Total 8.8 mg/dL (8.5-10.1); Chloride 111 mmol/L (98-107); Creatinine, Serum 0.92 mg/dL (0.55-1.02); EST Glomerular Filtration Rate 67 mL/min (>60); Est Glom Filt Rate - Afr Amer 81 mL/min (>60); Estimated Creatinine Clearance 98.82 ml/min; Globulin 3.6 g/dL (2.2-4.2); Glucose 90 mg/dL (74-106); Protein, Total 6.4 g/dL (6.4-8.2); Sodium Level 141 mmol/L (136-145); Troponin-I HS 13 pg/mL (3.0-54.0)
--- NOTE | 2024-09-27 10:39 | PCM.HP.STD ---
HPI - General General Date of Admission: 09/27/24 Date of Service: 09/27/24 HPI Narrative NEYMAR SHEPHERD, is a 53 F with multiple comorbidities including chronic congestive heart failure, paroxysmal atrial fibrillation, pulmonary hypertension who was sent from her hospital superintendent office to the emergency department with complaints of increasing shortness of breath as well as 20 pound weight gain for the past couple of weeks. Patient reported being compliant with her diuretics. Her assessment in the emergency department came back consistent with acute congestive heart failure. Admitted to monitored bed for further management PFSH Medical History Left shoulder pain HTN (hypertension), benign PFO (patent foramen ovale) PAF (paroxysmal atrial fibrillation) Chronic kidney disease (CKD) Secondary pulmonary arterial hypertension HFrEF (heart failure with reduced ejection fraction) Non-ischemic cardiomyopathy Atrial flutter Panic attack Heart failure with preserved ejection fraction Atrial fibrillation Esophageal spasm Osteoarthritis Tubular adenoma of colon Extremity cyanosis Fatty liver Former smoker CPAP (continuous positive airway pressure) dependence History of pain when walking History of edema Patellofemoral syndrome of both knees Bilateral knee pain Paroxysmal atrial fibrillation Hyperthyroidism Former smoker Migraines HLD (hyperlipidemia) Hiatal hernia COPD (chronic obstructive pulmonary disease) Anxiety History of back problems Obstructive sleep apnea Essential (primary) hypertension Hypomagnesemia Iron deficiency Morbid obesity with BMI of 40.0-44.9, adult DVT (deep venous thrombosis) Anemia Pulmonary embolism (04/26/16) Tobacco user GERD (gastroesophageal reflux disease) Depression Allergic rhinitis Alcohol abuse Home Medications ?Medication ?Instructions ?Recorded ?Last Taken ?Type rosuvastatin 5 mg tablet (Crestor) 10 mg PO DAILY cholesterol 06/18/19 09/27/24 History acetaminophen 500 mg tablet 1,000 mg PO DAILY PRN Pain 1-10 Or 08/01/20 09/13/22 History Fever cholecalciferol (vitamin D3) 10 4,000 unit PO DAILY supplement 08/01/20 09/27/24 History mcg (400 unit) capsule folic acid 1 mg tablet 1 mg PO DAILY supplement 08/01/20 09/27/24 History sildenafil (pulm.hypertension) 20 20 mg PO TID pulmonary HTN 05/01/21 09/27/24 History mg tablet fluticasone fur. 100 mcg-umeclid 1 inh inhalation DAILY COPD 01/20/22 09/27/24 History 62.5 mcg-vilant 25 mcg inhalat.powder (Trelegy Ellipta) bupropion HCl 300 mg 24 hr tablet, 300 mg PO DAILY mood 05/16/22 09/27/24 History extended release hydroxychloroquine 200 mg tablet 400 mg (2 x 200 mg) PO DAILY 06/13/23 09/27/24 Rx (Plaquenil) arthritis #1 TAB albuterol sulfate 90 mcg/actuation 2 inh inhalation Q4H PRN shortness 06/24/23 Unknown History breath activated powder inhaler of breath naltrexone 50 mg tablet 50 mg PO DAILY 08/29/23 09/27/24 History flecainide 50 mg tablet 50 mg PO Q12H #180 tabs 01/14/24 09/27/24 Rx furosemide 40 mg tablet 40 mg PO DAILY PRN weight gain 1 01/19/24 Unknown Rx month #30 tabs ursodiol 300 mg capsule 300 mg PO BID heart 90 days #180 01/19/24 09/27/24 Rx caps pantoprazole 40 mg tablet,delayed 40 mg PO QAM acid reflux 1 month 09/16/24 09/27/24 Rx release #30 tabs metoprolol tartrate 25 mg tablet 25 mg PO Q12H high blood pressure 09/27/24 09/27/24 History spironolactone 25 mg tablet 12.5 mg PO DAILY 09/27/24 09/27/24 History trazodone 100 mg tablet 100 mg PO QHS PRN Insomnia 09/27/24 09/26/24 History vitamin E (dl, acetate) 180 mg 180 mg PO DAILY 09/27/24 09/27/24 History (400 unit) capsule warfarin 4 mg tablet 4 mg PO QPM 09/27/24 09/26/24 History Allergy/AdvReac Type Severity Reaction Status Date / Time doxycycline Allergy Hives Verified 09/27/24 08:42 hydrocodone (From Vicodin) AdvReac Itching Verified 09/27/24 08:42 Family History Mother Breast cancer Cancer lung cancer Father Cancer lung cancer Hypertension High cholesterol Surgical History History of transesophageal echocardiography (MABEL) (05/23/22) History of cardioversion (05/23/22) History of cardiac catheterization History of repair of hiatal hernia (12/2020) History of cholecystectomy History of nasal surgery History of hysterectomy H/O repair of rotator cuff History of Social History household members: spouse Smoking Status: Former smoker quit date: 06/01/23 alcohol intake: current alcohol intake frequency: 3 or more drinks per day Alcohol type: hard liquor details: Started drinking again recently, has been intermittent. Hard liquor drinks. substance use type: does not use ROS ROS Narrative GENERAL: denies fever, chills, night sweats, weight loss, anorexia HEENT: denies headache, sinus congestion, or drainage, dysphagia RESPIRATORY: shortness of breath, dyspnea on exertion CARDIAC: chest pain, denies palpitations, orthopnea, PND GASTROINTESTINAL: denies abdominal pain, nausea, vomiting, melena, GENITOURINARY: denies dysuria, urgency, frequency, heamaturia EXTREMITY: swelling MUSCULOSKELETAL: denies current joint pain or tenderness NEUROLOGIC: denies focal numbness, weakness, tingling HEMATOLOGIC: denies easy bruising and/or hemorrhage INTEGUMENT: denies rashes PSYCHIATRIC: denies suicidal or homicidal ideation Vital Signs Vital Signs Vital Signs: 09/27/24 08:42 09/27/24 08:47 09/27/24 09:41 Temperature 98.1 F Temperature Source Oral Pulse Rate 65 60 Respiratory Rate 26 H 20 H Respiratory Effort Short of Breath Labored Respiratory Depth Shallow Respiratory Pattern Tachypnea Blood Pressure 151/90 H 169/138 H Blood Pressure Mean 110 148 Pulse Ox 98 96 Oxygen Delivery Method Room Air Room Air 09/27/24 10:00 Temperature Temperature Source Pulse Rate 60 Respiratory Rate 20 H Respiratory Effort Respiratory Depth Respiratory Pattern Blood Pressure 151/71 H Blood Pressure Mean 97 Pulse Ox 95 Oxygen Delivery Method Weight Weight: 134.1 kg Body Mass Index (BMI) 46.3 Physical Exam Narrative GENERAL: cooperative HEENT: Atraumatic; normocephalic EYES; Anicteric, Normal Conjunctiva NECK; supple, normal thyroid, RESPIRATORY: Diminished to auscultation CARDIOVASCULAR: Regular S1 S2, GI: soft, normoactive bowel sounds, : No Renal angle tenderness; EXTREMITIES: Bipedal edema, no clubbing, MUSCULOSKELETAL: no muscle wasting NEURO: Awake; no lateralizing signs. SKIN: No Rash PSYCH; Flat affect Results Lab / Micro Data 09/27/24 09:05 09/27/24 09:05 Labs: Laboratory Results - last 24 hr 09/27/24 09:05: WBC 5.3, RBC 3.47 L, Hgb 11.0 L, Hct 34.0 L, MCV 98.0, MCH 31.7, MCHC 32.4, RDW Std Deviation 47.2 H, RDW Coeff of [place] 13.3, Plt Count 189, MPV 9.3, Immature Gran % (Auto) 0.900, Neut % (Auto) 75.6 H, Lymph % (Auto) 9.8 L, [place] % (Auto) 8.8, Eos % (Auto) 3.8, Baso % (Auto) 1.1 H, Absolute Neuts (auto) 4.0, Absolute Lymphs (auto) 0.52 L, Nucleated RBC % 0, PT 18.0 H, INR 1.5, Sodium 141, Potassium 4.0, Chloride 111 H, Carbon Dioxide 22.0, Anion Gap 8, BUN 16, Creatinine 0.92, Estim Creat Clear Calc 98.82, Est GFR (MDRD) Af Amer 81, Est GFR (MDRD) Non-Af 67, BUN/Creatinine Ratio 17.3, Glucose 90, Calcium 8.8, Total Bilirubin 0.90, AST 24, ALT 21, Alkaline Phosphatase 101, Troponin I High Sens 13, B-Natriuretic Peptide 401.6 H, Total Protein 6.4, Albumin 2.8 L, Globulin 3.6, Albumin/Globulin Ratio 0.8 L Assessment & Plan Assessment/Plan (1) Acute exacerbation of CHF (congestive heart failure): (2) Metabolic dysfunction-associated steatotic liver disease (MASLD): (3) PAF (paroxysmal atrial fibrillation): (4) Secondary pulmonary arterial hypertension: (5) Alcoholic fatty liver: PLAN: Plan Patient is a 53-year-old lady presenting with progressive shortness of breath and weight gain 1. Acute congestive heart failure with preserved ejection fraction 2D echo from 12/11/2023 demonstrated estimated EF of 55%. Patient has been admitted to monitored bed started on strict input and output, daily weight, fluid restriction as well as IV diuretics. Repeat echo ordered for subsequent assessment 2. Paroxysmal A. fib/flutter ? Patient is on flecainide and metoprolol as well as systemic anticoagulation with warfarin with subtherapeutic INR. Did continue with patient home meds daily INR ordered for monitoring 3. Pulmonary hypertension ? Patient is on sildenafil, did continue 4. Chronic alcohol dependence ? Counseled on cessation. Patient reported being at risk for possible withdrawal was subsequently placed on a CIWA protocol with phenobarb taper 5. COPD ? Currently not in exacerbation did continue patient home regimen including Trelegy Ellipta 6. Class III obesity with BMI of 46.3 ? Weight loss advised 7. Dyslipidemia -Patient is on statin therapy, continued at home dose 8. Anemia ? Secondary to chronic disorder monitoring H&H and transfuse if patient becomes symptomatic or hemoglobin falls below 7 9. GERD with history of reflux esophagitis ? On PPI 10. Hypothyroidism - Patient is on levothyroxine home dose continued 11. Metabolic dysfunction with associated steatotic liver disease ? Patient is followed by hepatology as outpatient patient is on estradiol did continue plan is patient to resume care following her discharge 12. Depression with anxiety ? Patient is appropriate. 13. Rheumatoid arthritis ? Patient is on hydroxychloroquine 14. DVT prophylaxis ? Patient is on warfarin Time spent in the patient's overall evaluation,decision-making process, review of diagnostic data, adjustment of management, discussion with other providers, nursing nursing and ancillary staff involved in patient's care documentation, 75 minutes Advance planning; did discuss with the patient and family regarding advanced directives as well as CODE STATUS. Did explain the various scenarios involved ( FULL CODE, DNR CCA, DNR CCA with no intubation, and DNR CC and what each meant) patient elected full code with CPR and intubation if needed. Order was placed. Time spent on discussion 18 minutes. Charges/Coding Multi Select Codes Visit Charges Visit Charges: 17966 Init Hosp L3 Hospitalists' Procedures Procedures: 87381 Advncd Care Plan 30 Min
[2024-09-27 10:49] LABS: Lactic Acid 1.4 mmol/L (0.4-1.9)
--- NOTE | 2024-09-27 11:35 | ECHOCS_ITS ---
Reason For Study: CONGESTIVE HEART FAILURE Procedure This was a 2D Doppler, Color Flow transthoracic echocardiogram. The study was technically difficult. Contrast injection was performed. Exam performed portable in patient room. Left Ventricle Normal LV size. The estimated ejection fraction is 65 %. Diastolic function is indeterminate. No regional wall motion abnormalities noted. Right Ventricle Normal RV size. Normal systolic function. Atria The left atrium is mildly enlarged. Normal right atrium. No doppler evidence for ASD. Mitral Valve Moderate focal mitral valve calcification of the posterior leaflet. There is no mitral valve stenosis. No mitral valve insufficiency. Tricuspid Valve There is no tricuspid stenosis. Unable to estimate RV systolic pressure due to insufficient tricuspid regurgitant envelope. Trivial tricuspid valve insufficiency. Aortic Valve Trisinus/trileaflet aortic valve. There is no aortic stenosis. No aortic valve insufficiency. Pulmonic Valve There is no pulmonic valvular stenosis. No pulmonic valve insufficiency. Great Vessels Normal aortic root. Pericardium/Pleural No pericardial effusion. Medication Diluted definity 2ml given slow IV push to enhance endocardial definition. MMode/2D Measurements & Calculations LVIDd: 5.1 cm IVSd: 1.5 cm LVOT diam: 2.0 cm LVIDs: 3.0 cm LVPWd: 1.4 cm RVDd: 4.1 cm FS: 41.5 % LVOT area: 3.1 cm2 asc Aorta Diam: 3.5 cm LAV(MOD-bp): 61.3 ml LVAd ap4: 38.7 cm2 LAV(MOD-bp) Indexed: 26.3 ml/m2 LVLd ap4: 8.8 cm LAV(MOD-sp2): 66.3 ml EDV(MOD-sp4): 137.6 ml LAV(MOD-sp4): 54.2 ml EDV(sp4-el): 143.9 ml LVAs ap4: 21.1 cm2 LVLs ap4: 7.2 cm ESV(MOD-sp4): 49.9 ml ESV(sp4-el): 52.6 ml EF(MOD-sp4): 63.7 % EF(sp4-el): 63.5 % LVAd ap2: 39.0 cm2 SV(MOD-sp4): 87.7 ml SV(MOD-sp2): 85.7 ml LVLd ap2: 9.0 cm SI(MOD-sp4): 37.6 ml/m2 SI(MOD-sp2): 36.8 ml/m2 EDV(MOD-sp2): 132.8 ml EDV(sp2-el): 143.1 ml LVAs ap2: 19.6 cm2 LVLs ap2: 6.7 cm ESV(MOD-sp2): 47.1 ml ESV(sp2-el): 48.9 ml EF(MOD-sp2): 64.5 % SV(sp4-el): 91.3 ml Ao sinus diam: 3.[address] Junction: 3.0 cm LA dimension(2D): 5.8 cm LA A4 area: 21.0 cm2 RA A4 area: 17.7 cm2 TAPSE: 1.9 cm Time Measurements MV dec time: 0.36 sec Doppler Measurements & Calculations MV E max nino: 128.6 cm/sec Lat Peak E' Inno: 7.3 cm/sec Med Peak E' Nino: 5.8 cm/sec MV A max nino: 137.9 cm/sec E/E' lat: 17.6 E/E' med: 22.3 MV E/A: 0.93 MV V2 max: 132.7 cm/sec MV dec slope: 357.5 cm/sec2 Ao V2 max: 145.0 cm/sec MV max P.0 mmHg Ao max P.4 mmHg MV V2 mean: 94.3 cm/sec Ao V2 mean: 97.7 cm/sec MV mean P.8 mmHg Ao mean P.3 mmHg MV V2 VTI: 48.7 cm Ao V2 VTI: 28.2 cm MVA(VTI): 1.6 cm2 AV (velocity ratio): 0.93 RADHA(I,D): 2.8 cm2 RADHA(V,D): 2.8 cm2 LV V1 max: 132.0 cm/sec SV(LVOT): 79.9 ml PA V2 max: 106.7 cm/sec LV V1 max P.0 mmHg LV V1 mean P.9 mmHg LV V1 mean: 93.6 cm/sec LV V1 VTI: 26.2 cm TR max nino: 293.4 cm/sec TR max P.4 mmHg ECHO/Echo Complete W/ Contrast Interpretation Summary The estimated ejection fraction is 65 %. Diastolic function is indeterminate. The left atrium is mildly enlarged. Ordering Physician: Henrik Werner Referring Physician: Didier Watkins Performed By: Juliann Flores RDCS
[2024-09-27] MEDS: Phenobarbital 32.4 MG Tablet 64.8 MG PO ×4 (12:33→23:33)
[2024-09-27] MEDS: SILDENAFIL CITRATE 20 MG TABLET PO ×2 (16:03→21:13)
[2024-09-27] MEDS: Acetaminophen 325 MG Tablet 650 MG PO (16:04)
[2024-09-27] MEDS: Metoprolol Tartrate 25 MG Tablet PO (21:13)
[2024-09-27] MEDS: Flecainide 100 MG Tablet 50 MG PO (21:13)
[2024-09-27] MEDS: Ursodiol 250 MG Tablet PO (21:13)
[2024-09-28] VITALS (11 sets, daily range): BP systolic 107–141; BP diastolic 56–73; PULSE 56–65; RESP 15–18; TEMP 36.1–36.8; O2SAT 90–97; BMI 42.7
[2024-09-28] MEDS: Phenobarbital 32.4 MG Tablet 64.8 MG PO ×5 (03:31→20:16)
[2024-09-28] MEDS: Acetaminophen 325 MG Tablet 650 MG PO ×3 (03:33→22:14)
[2024-09-28] MEDS: SILDENAFIL CITRATE 20 MG TABLET PO ×3 (05:55→20:25)
[2024-09-28] MEDS: Furosemide 40 MG/4 ML Vial IV ×3 (05:55→20:16)
[2024-09-28 07:51] LABS: Absolute Lymphocyte Count 0.48 X10^3/uL (0.83-4.51); Absolute Neutrophil Count 3.8 X10^3/uL (2.0-7.7); Basophil# 0.04 X10^3/uL; Basophil% 0.8 % (0-1); Eosinophil# 0.16 X10^3/uL; Eosinophils% 3.2 % (0-5); Hematocrit 36.5 % (37-47); Hemoglobin 11.9 g/dL (12.0-15.0); Lymphocyte # 0.48 X10^3/ul (0.83-4.51); Lymphocyte % 9.5 % (19-41); Mean Corp Hgb Conc 32.6 g/dL (32-36); Mean Corpuscular Hgb 31.5 pg (27.0-32.0); Mean Corpuscular Volume 96.6 fL (81-99); Mean Platelet Vol. 9.1 fl (6.2-12.0); Monocyte# 0.53 X10^3/uL; Monocyte% 10.5 % (0-10); NRBC Flagged by Analyzer 0 % (0-5); Neutrophil # 3.83 X10^3/uL (2.7-7.7); Neutrophil % 75.4 % (47-70); POSITIVE DIFFERENTIAL YES; Platelet Count 184 K/mm3 (150-450); RBC Distribution Width CV 13.2 % (11.6-14.6); RBC Distribution Width SD 47.3 fl (35.1-43.9); Red Blood Count 3.78 M/mm3 (4.2-5.4); White Blood Count 5.1 K/mm3 (4.4-11.0)
[2024-09-28 08:32] LABS: Anion Gap 10 (5-15); BUN 18 mg/dL (7-18); BUN/Creat Ratio 14.6 RATIO (10-20); Calcium,Total 8.8 mg/dL (8.5-10.1); Chloride 100 mmol/L (98-107); Creatinine, Serum 1.23 mg/dL (0.55-1.02); EST Glomerular Filtration Rate 48 mL/min (>60); Est Glom Filt Rate - Afr Amer 58 mL/min (>60); Estimated Creatinine Clearance 70.55 ml/min; Glucose 114 mg/dL (74-106); Magnesium 1.2 mg/dL (1.6-2.6); Phosphorus 4.4 mg/dL (2.5-4.9); Sodium Level 138 mmol/L (136-145)
[2024-09-28 08:38] LABS: International Normalized Ratio 1.5; Prothrombin Time (Protime)PT. 17.9 SECONDS (11.7-14.9)
[2024-09-28] MEDS: Cholecalciferol (VIT D3) 25 MCG TABLET (1,000 UNITS) 100 MCG PO (08:56)
[2024-09-28] MEDS: Folic Acid 1 MG Tablet PO (08:57)
[2024-09-28] MEDS: Ursodiol 250 MG Tablet PO ×2 (08:57→20:21)
[2024-09-28] MEDS: Flecainide 100 MG Tablet 50 MG PO ×2 (08:58→20:20)
[2024-09-28] MEDS: Pantoprazole Sodium 40 MG Tablet PO (08:58)
[2024-09-28] MEDS: buPROPion (XL) 300 MG TABLET.XL PO (08:58)
[2024-09-28] MEDS: Spironolactone 25 MG Tablet 12.5 MG PO (08:59)
[2024-09-28] MEDS: Hydroxychloroquine 200 MG Tablet 400 MG PO (09:00)
[2024-09-28] MEDS: Metoprolol Tartrate 25 MG Tablet PO ×2 (09:00→20:22)
[2024-09-28] MEDS: Thiamine Hydrochloride 100 MG Tablet PO (09:01)
[2024-09-28] MEDS: Atorvastatin Calcium 20 MG Tablet PO (09:01)
--- NOTE | 2024-09-28 09:45 | PCM.PN.HOSP ---
Reason for Visit Reason for Visit: Diagnoses Secondary pulmonary arterial hypertension (09/27/24) Paroxysmal atrial fibrillation (09/27/24) Heart failure, unspecified (09/27/24) Alcoholic fatty liver (09/27/24) Fatty (change of) liver, not elsewhere classified (09/27/24) Subjective Subjective Patient is a 53-year-old lady who was admitted with progressive generalized weakness and shortness of breath diagnosed with acute congestive heart failure admitted to a monitored bed started on diuretic therapy patient had a significant response to therapy. Objective Data Objective Data Vital Signs: Vital Signs Temp Pulse Resp BP Pulse Ox O2 Del Method 96.9 F L 65 18 141/68 H 93 Room Air 09/28/24 03:29 09/28/24 09:00 09/28/24 03:29 09/28/24 09:00 09/28/24 03:29 09/28/24 03:29 Oxygen Delivery Method Room Air Weight: 123.8 kg Body Mass Index (BMI) 42.7 Intake & Output: Intake and Output for Last 24 Hours 09/26/24 09/27/24 09/28/24 23:59 23:59 23:59 Intake Total 700 / 700 Output Total 6850 / 6850 500 / 500 Balance -6150 / -6150 -500 / -500 Lab / Micro Data 09/28/24 07:07 09/28/24 07:07 Labs: Laboratory Results - last 24 hr 09/27/24 09:05: WBC 5.3, RBC 3.47 L, Hgb 11.0 L, Hct 34.0 L, MCV 98.0, MCH 31.7, MCHC 32.4, RDW Std Deviation 47.2 H, RDW Coeff of [place]ight[place] 13.3, Plt Count 189, MPV 9.3, Immature Gran % (Auto) 0.900, Neut % (Auto) 75.6 H, Lymph % (Auto) 9.8 L, [place] % (Auto) 8.8, Eos % (Auto) 3.8, Baso % (Auto) 1.1 H, Absolute Neuts (auto) 4.0, Absolute Lymphs (auto) 0.52 L, Nucleated RBC % 0, PT 18.0 H, INR 1.5, Sodium 141, Potassium 4.0, Chloride 111 H, Carbon Dioxide 22.0, Anion Gap 8, BUN 16, Creatinine 0.92, Estim Creat Clear Calc 98.82, Est GFR (MDRD) Af Amer 81, Est GFR (MDRD) Non-Af 67, BUN/Creatinine Ratio 17.3, Glucose 90, Calcium 8.8, Total Bilirubin 0.90, AST 24, ALT 21, Alkaline Phosphatase 101, Troponin I High Sens 13, B-Natriuretic Peptide 401.6 H, Total Protein 6.4, Albumin 2.8 L, Globulin 3.6, Albumin/Globulin Ratio 0.8 L 09/27/24 10:15: Lactic Acid 1.4 09/28/24 07:07: WBC 5.1, RBC 3.78 L, Hgb 11.9 L, Hct 36.5 L, MCV 96.6, MCH 31.5, MCHC 32.6, RDW Std Deviation 47.3 H, RDW Coeff of [place] 13.2, Plt Count 184, MPV 9.1, Immature Gran % (Auto) 0.600, Neut % (Auto) 75.4 H, Lymph % (Auto) 9.5 L, [place] % (Auto) 10.5 H, Eos % (Auto) 3.2, Baso % (Auto) 0.8, Absolute Neuts (auto) 3.8, Absolute Lymphs (auto) 0.48 L, Nucleated RBC % 0, PT 17.9 H, INR 1.5, Sodium 138, Potassium 3.0 L, Chloride 100, Carbon Dioxide 28.0, Anion Gap 10, BUN 18, Creatinine 1.23 H, Estim Creat Clear Calc 70.55, Est GFR (MDRD) Af Amer 58 L, Est GFR (MDRD) Non-Af 48 L, BUN/Creatinine Ratio 14.6, Glucose 114 H, Calcium 8.8, Phosphorus 4.4, Magnesium 1.2 L Radiography Diagnostic Testing: Radiology Impression Chest X-Ray 09/27/24 09:50 IMPRESSION: Cardiomegaly. Mild CHF. Electronically Signed: George Kaplan MD at 10:52 EST , Physical Exam Narrative GENERAL: cooperative HEENT: Atraumatic; normocephalic EYES; Anicteric, Normal Conjunctiva NECK; supple, normal thyroid, RESPIRATORY: Diminished to auscultation CARDIOVASCULAR: Regular S1 S2, GI: soft, normoactive bowel sounds, : No Renal angle tenderness; EXTREMITIES: Bipedal edema, no clubbing, MUSCULOSKELETAL: no muscle wasting NEURO: Awake; no lateralizing signs. SKIN: No Rash PSYCH; Flat affect Assessment & Plan Assessment/Plan (1) Acute exacerbation of CHF (congestive heart failure): (2) Metabolic dysfunction-associated steatotic liver disease (MASLD): (3) PAF (paroxysmal atrial fibrillation): (4) Secondary pulmonary arterial hypertension: (5) Alcoholic fatty liver: PLAN: Plan Patient is a 53-year-old lady presenting with progressive shortness of breath and weight gain 1. Acute congestive heart failure with preserved ejection fraction 2D echo from 12/11/2023 demonstrated estimated EF of 55%. Patient has been admitted to monitored bed started on strict input and output, daily weight, fluid restriction as well as IV diuretics. Repeat echo ordered for subsequent assessment ? 09/28/2024; patient 2D echo demonstrated EF of 55% with mildly enlarged left atrium. Diastolic dysfunction was not able to be assessed. Patient responded to diuretic therapy with a negative fluid balance of 6.6 L over the past 24 hours 2. Paroxysmal A. fib/flutter ? Patient is on flecainide and metoprolol as well as systemic anticoagulation with warfarin with subtherapeutic INR. Did continue with patient home meds daily INR ordered for monitoring 3. Pulmonary hypertension ? Patient is on sildenafil, did continue 4. Chronic alcohol dependence ? Counseled on cessation. Patient reported being at risk for possible withdrawal was subsequently placed on a CIWA protocol with phenobarb taper 5. COPD ? Currently not in exacerbation did continue patient home regimen including Trelegy Ellipta 6. Class III obesity with BMI of 46.3 ? Weight loss advised 7. Dyslipidemia -Patient is on statin therapy, continued at home dose 8. Anemia ? Secondary to chronic disorder monitoring H&H and transfuse if patient becomes symptomatic or hemoglobin falls below 7 9. GERD with history of reflux esophagitis ? On PPI 10. Hypothyroidism - Patient is on levothyroxine home dose continued 11. Metabolic dysfunction with associated steatotic liver disease ? Patient is followed by hepatology as outpatient patient is on estradiol did continue plan is patient to resume care following her discharge 12. Depression with anxiety ? Patient is appropriate. 13. Rheumatoid arthritis ? Patient is on hydroxychloroquine 14. DVT prophylaxis ? Patient is on warfarin 15. Hypokalemia -Corrected per protocol, repeat labs ordered in a.m. for response to therapy 16. Hypomagnesemia ? Corrected for protocol repeat labs ordered in a.m. for follow-up Time spent in the patient's overall evaluation,decision-making process, review of diagnostic data, adjustment of management, discussion with other providers, nursing nursing and ancillary staff involved in patient's care documentation, 50 minutes Charges/Coding Visit Charges Inpatient E&M: 19119 [facility] Hosp L3
[2024-09-28] MEDS: Potassium Chloride Oral Tablet 20 MEQ 40 MEQ PO (10:34)
[2024-09-28] MEDS: Magnesium Chloride 64 MG Delay Rel.Tablet 256 MG PO ×2 (10:34→20:19)
[2024-09-28] MEDS: FLUTICASONE/UMECLIDIN/VILANTER 1 EACH BLST.W.DEV INHALATION (10:35)
--- NOTE | 2024-09-28 10:57 | ADDICTION ---
Attempted to meet w/pt to offer resources to help with her alcohol use hx. She declined.
--- NOTE | 2024-09-28 11:10 | CASEMGMT ---
CATHIE CM Face to Face with patient for initial transition planning/care coordination assessment. RN CM introduced self and role at [facility]. Patient lying in bed, alert and oriented. Patient willing to participate in assessment and is able to answer all questions appropriately. Care providers, pharmacy, and demographics verified. Strata: 2 PCP: June Specialists: Kennedy, sleeve tailor; Brittney, electrotyper helper; orthopedic shoe maker in [place] Preferred Pharmacy:[facility] Insurance: [employer] Prescription Benefit: yes Living Will/HPOA: none LNOK: Living Arrangements: Patient lives with in a 2 story home. Patient is independent and able to ambulate stairs. Transportation: self, DME/HHC: Patient has shower chair, cpap, pulse ox, and owns her own concentrator that she bleeds into her cpap. No previous HHC or SNF. Will monitor for portable oxygen. Patient wishes to discharge home, denies need for home health at this time. Patient states she has no further needs or concerns at this time. CM to follow for discharge planning needs that may arise. Disposition Plan: Patient to discharge home with family support and follow-up plans in place. Greta VANG, RN, CM
[2024-09-28] MEDS: Potassium Chloride Oral Tablet 20 MEQ PO (17:12)
[2024-09-28] MEDS: traZODone 100 MG Tablet PO (22:13)
[2024-09-29] VITALS (7 sets, daily range): BP systolic 109–125; BP diastolic 55–74; PULSE 52–64; RESP 14–18; TEMP 36.3–36.8; O2SAT 89–97; BMI 42.6
[2024-09-29] MEDS: Phenobarbital 32.4 MG Tablet 64.8 MG PO ×4 (00:10→13:27)
[2024-09-29] MEDS: Acetaminophen 325 MG Tablet 650 MG PO (04:17)
[2024-09-29 05:27] LABS: Absolute Lymphocyte Count 0.67 X10^3/uL (0.83-4.51); Absolute Neutrophil Count 3.2 X10^3/uL (2.0-7.7); Basophil# 0.04 X10^3/uL; Basophil% 0.8 % (0-1); Eosinophil# 0.19 X10^3/uL; Hematocrit 37.9 % (37-47); Lymphocyte # 0.67 X10^3/ul (0.83-4.51); Mean Corp Hgb Conc 31.7 g/dL (32-36); Mean Corpuscular Hgb 30.7 pg (27.0-32.0); Mean Corpuscular Volume 96.9 fL (81-99); Mean Platelet Vol. 9.3 fl (6.2-12.0); Monocyte# 0.65 X10^3/uL; Monocyte% 13.6 % (0-10); NRBC Flagged by Analyzer 0 % (0-5); Neutrophil # 3.18 X10^3/uL (2.7-7.7); Neutrophil % 66.6 % (47-70); Platelet Count 191 K/mm3 (150-450); RBC Distribution Width CV 13.4 % (11.6-14.6); RBC Distribution Width SD 47.8 fl (35.1-43.9); Red Blood Count 3.91 M/mm3 (4.2-5.4); White Blood Count 4.8 K/mm3 (4.4-11.0)
[2024-09-29 05:42] LABS: International Normalized Ratio 1.7
[2024-09-29 05:49] LABS: Anion Gap 10 (5-15); BUN 27 mg/dL (7-18); BUN/Creat Ratio 16.8 RATIO (10-20); Calcium,Total 8.6 mg/dL (8.5-10.1); Chloride 99 mmol/L (98-107); Creatinine, Serum 1.61 mg/dL (0.55-1.02); EST Glomerular Filtration Rate 35 mL/min (>60); Est Glom Filt Rate - Afr Amer 43 mL/min (>60); Glucose 107 mg/dL (74-106); Potassium 3.4 mmol/L (3.5-5.1); Sodium Level 137 mmol/L (136-145)
[2024-09-29] MEDS: Furosemide 40 MG/4 ML Vial IV (06:08)
[2024-09-29] MEDS: SILDENAFIL CITRATE 20 MG TABLET PO (06:08)
--- NOTE | 2024-09-29 07:52 | PN.HOSP_ITS ---
Reason for Visit Reason for Visit: Diagnoses Secondary pulmonary arterial hypertension (09/27/24) Paroxysmal atrial fibrillation (09/27/24) Heart failure, unspecified (09/27/24) Alcoholic fatty liver (09/27/24) Fatty (change of) liver, not elsewhere classified (09/27/24) Objective Data Objective Data Vital Signs: Vital Signs Temp Pulse Resp BP Pulse Ox O2 Del Method 97.8 F 59 L 14 117/70 92 Room Air 09/29/24 03:00 09/29/24 03:00 09/29/24 03:00 09/29/24 03:00 09/29/24 03:00 09/29/24 03:00 Oxygen Delivery Method Room Air Weight: 272 lb 0.807 oz Body Mass Index (BMI) 42.6 Intake & Output: Intake and Output for Last 24 Hours 09/27/24 09/28/24 09/29/24 23:59 23:59 23:59 Intake Total 700 / 700 1200 / 1200 Output Total 6850 / 6850 1300 / 1300 650 / 650 Balance -6150 / -6150 -100 / -100 -650 / -650 Lab / Micro Data 09/29/24 04:46 09/29/24 04:46 Labs: Laboratory Results - last 24 hr 09/28/24 07:07: WBC 5.1, RBC 3.78 L, Hgb 11.9 L, Hct 36.5 L, MCV 96.6, MCH 31.5, MCHC 32.6, RDW Std Deviation 47.3 H, RDW Coeff of Leighton 13.2, Plt Count 184, MPV 9.1, Immature Gran % (Auto) 0.600, Neut % (Auto) 75.4 H, Lymph % (Auto) 9.5 L, M anne % (Auto) 10.5 H, Eos % (Auto) 3.2, Baso % (Auto) 0.8, Absolute Neuts (auto) 3.8, Absolute Lymphs (auto) 0.48 L, Nucleated RBC % 0, PT 17.9 H, INR 1.5, Sodium 138, Potassium 3.0 L, Chloride 100, Carbon Dioxide 28.0, Anion Gap 10, BUN 18, Creatinine 1.23 H, Estim Creat Clear Calc 70.55, Est GFR (MDRD) Af Amer 58 L, Est GFR (MDRD) Non-Af 48 L, BUN/Creatinine Ratio 14.6, Glucose 114 H, Calcium 8.8, Phosphorus 4.4, Magnesium 1.2 L 09/29/24 04:46: WBC 4.8, RBC 3.91 L, Hgb 12.0, Hct 37.9, MCV 96.9, MCH 30.7, M CHC 31.7 L, RDW Std Deviation 47.8 H, RDW Coeff of Leighton 13.4, Plt Count 191, MPV 9.3, Immature Gran % (Auto) 1.000 H, Neut % (Auto) 66.6, Lymph % (Auto) 14.0 L, Mcleod % (Auto) 13.6 H, Eos % (Auto) 4.0, Baso % (Auto) 0.8, Absolute Neuts (auto) 3.2, Absolute Lymphs (auto) 0.67 L, Nucleated RBC % 0, PT 20.0 H, INR 1.7, Sodium 137, Potassium 3.4 L, Chloride 99, Carbon Dioxide 28.0, Anion Gap 10, BUN 27 H, Creatinine 1.61 H, Estim Creat Clear Calc 53.80, Est GFR (MDRD) Af Amer 43 L, Est GFR (MDRD) Non-Af 35 L, BUN/Creatinine Ratio 16.8, Glucose 107 H, Calcium 8.6 Radiography Diagnostic Testing: Radiology Impression Echocardiogram 09/27/24 11:35 Interpretation Summary The estimated ejection fraction is 65 %. Diastolic function is indeterminate. The left atrium is mildly enlarged. Ordering Physician: Henrik Werner Referring Physician: Didier Watkins Performed By: Juliann Flores RDCS Assessment & Plan Assessment/Plan (1) Acute exacerbation of CHF (congestive heart failure): (2) Metabolic dysfunction-associated steatotic liver disease (MASLD): (3) PAF (paroxysmal atrial fibrillation): (4) Secondary pulmonary arterial hypertension: (5) Alcoholic fatty liver: PLAN: Plan Patient is a 53-year-old lady presenting with progressive shortness of breath and weight gain 1. Acute congestive heart failure with preserved ejection fraction 2D echo from 12/11/2023 demonstrated estimated EF of 55%. Patient has been admitted to monitored bed started on strict input and output, daily weight, fluid restriction as well as IV diuretics. Repeat echo ordered for subsequent assessment ? 09/28/2024; patient 2D echo demonstrated EF of 55% with mildly enlarged left atrium. Diastolic dysfunction was not able to be assessed. Patient responded to diuretic therapy with a negative fluid balance of 6.6 L over the past 24 hours 2. Paroxysmal A. fib/flutter ? Patient is on flecainide and metoprolol as well as systemic anticoagulation with warfarin with subtherapeutic INR. Did continue with patient home meds daily INR ordered for monitoring 3. Pulmonary hypertension ? Patient is on sildenafil, did continue 4. Chronic alcohol dependence ? Counseled on cessation. Patient reported being at risk for possible withdrawal was subsequently placed on a CIWA protocol with phenobarb taper 5. COPD ? Currently not in exacerbation did continue patient home regimen including Trelegy Ellipta 6. Class III obesity with BMI of 46.3 ? Weight loss advised 7. Dyslipidemia -Patient is on statin therapy, continued at home dose 8. Anemia ? Secondary to chronic disorder monitoring H&H and transfuse if patient becomes symptomatic or hemoglobin falls below 7 9. GERD with history of reflux esophagitis ? On PPI 10. Hypothyroidism - Patient is on levothyroxine home dose continued 11. Metabolic dysfunction with associated steatotic liver disease ? Patient is followed by hepatology as outpatient patient is on estradiol did continue plan is patient to resume care following her discharge 12. Depression with anxiety ? Patient is appropriate. 13. Rheumatoid arthritis ? Patient is on hydroxychloroquine 14. DVT prophylaxis ? Patient is on warfarin 15. Hypokalemia -Corrected per protocol, repeat labs ordered in a.m. for response to therapy 16. Hypomagnesemia ? Corrected for protocol repeat labs ordered in a.m. for follow-up Time spent in the patient's overall evaluation,decision-making process, review of diagnostic data, adjustment of management, discussion with other providers, nursing nursing and ancillary staff involved in patient's care documentation, 50 minutes
[2024-09-29] MEDS: Thiamine Hydrochloride 100 MG Tablet PO (08:36)
[2024-09-29] MEDS: Folic Acid 1 MG Tablet PO (08:36)
[2024-09-29] MEDS: Atorvastatin Calcium 20 MG Tablet PO (08:36)
[2024-09-29] MEDS: Magnesium Chloride 64 MG Delay Rel.Tablet 256 MG PO (08:37)
[2024-09-29] MEDS: Pantoprazole Sodium 40 MG Tablet PO (08:38)
[2024-09-29] MEDS: Cholecalciferol (VIT D3) 25 MCG TABLET (1,000 UNITS) 100 MCG PO (08:38)
[2024-09-29] MEDS: Ursodiol 250 MG Tablet PO (08:38)
[2024-09-29] MEDS: buPROPion (XL) 300 MG TABLET.XL PO (08:39)
[2024-09-29] MEDS: Spironolactone 50 MG Tablet PO (09:05)
[2024-09-29] MEDS: FLUTICASONE/UMECLIDIN/VILANTER 1 EACH BLST.W.DEV INHALATION (09:05)
--- NOTE | 2024-09-29 09:35 | DCINST_ITS ---
Discharge Instructions Diet Discharge Diet: Low fat / Low cholesterol and 2000 mg Sodium Diet DC O2, CPAP, BIPAP needs Home O2 Discharge instructions: No Dressing / Incision Discharge Activity: Return to Normal Activity Weight Bearing Status: Weight bearing as tolerated Dressing / Incision Call your doctor if you observe: Fever of 101 or Higher, Coldness, Increased Pain, Numbness or Tingling, Change in Color, Inability to urinate, Inability to have a bowel movement, Shortness of breath, Dizziness, Fainting spells, Swelling in the ankles, Chest pain, Prolonged hiccupping, Increased palpitations (irregular heartbeat) and Calf discomfort Follow Up Care When: IN 2 WEEKS Test Results: Test results from this visit will be discussed in further detail at your follow- up appointment, if applicable. Discharge Plan Admission Admit Date/Time: 09/27/24 10:41 Attending Provider: Ike Gibbs Primary Care Provider: Didier Watkins Consulting Providers: Henrik Werner Instructions Additional Instructions / Restrictions: Advised to start furosemide and spironolactone from 10/03/2024 after repeating labs in 3 days and follow with PCP Discharge Orders/Prescriptions Prescriptions: New furosemide 40 mg tablet 40 mg PO DAILY 30 Days Qty: 30 2RF Rx Instructions: Start from 10/03/2024. Take extra 40 mg dose at 5 PM for increased leg swelling or weight gain 5 pounds in 1 week. magnesium chloride 64 mg tablet,delayed release (DR/EC) 128 mg PO BID 30 Days Qty: 120 0RF Continued rosuvastatin [Crestor] 5 mg tablet 10 mg PO DAILY sildenafil (pulm.hypertension) 20 mg tablet 40 mg PO TID hydroxychloroquine [Plaquenil] 200 mg tablet 400 mg PO DAILY Qty: 1 0RF Patient Comments: PT OUT OF MEDS. naltrexone 50 mg tablet 50 mg PO DAILY ursodiol 300 mg capsule 300 mg PO BID 90 Days Qty: 180 6RF acetaminophen 500 MG tablet 1,000 mg PO DAILY PRN (Reason: Pain 1-10 Or Fever) folic acid 1 MG tablet 1 mg PO DAILY cholecalciferol (vitamin D3) 10 MCG capsule 4,000 unit PO DAILY Trelegy Ellipta 100-62.5-25 mcg blister with device 1 inh INHALATION DAILY Patient Comments: PT AWARE FAMILY HAS TO BRING. bupropion HCl 300 mg tablet extended release 24 hr 300 mg PO DAILY albuterol sulfate 90 mcg/actuation aerosol powdr breath activated 2 inh inhalation Q4H PRN (Reason: shortness of breath) warfarin 4 mg tablet 4 mg PO QPM Protocol: Dose Management Condition: Friday Dose/Route: 4 mg Instruction: 1 x 4 mg tablet Condition: Friday Dose/Route: 4 mg Instruction: 1 x 4 mg tablet Condition: Friday Dose/Route: 4 mg Instruction: 1 x 4 mg tablet Condition: Friday Dose/Route: 4 mg Instruction: 1 x 4 mg tablet Condition: Dose/Route: 4 mg Instruction: 1 x 4 mg tablet Condition: Friday Dose/Route: 4 mg Instruction: 1 x 4 mg tablet Condition: Friday Dose/Route: 4 mg Instruction: 1 x 4 mg tablet Protocol Text: Adjustment Start Date: Friday09/17/24 INR Value: 1.3 INR Date: 09/17/24 Recheck Date: 09/24/24 trazodone 100 mg Tablet 100 mg PO QHS PRN (Reason: Insomnia) metoprolol tartrate 25 mg tablet 25 mg PO Q12H flecainide 50 mg tablet 50 mg PO Q12H Qty: 180 3RF pantoprazole 40 mg tablet,delayed release (DR/EC) 40 mg PO QAM 30 Days Qty: 30 6RF Held spironolactone 25 mg tablet 12.5 mg PO DAILY Hold Instructions: Hold for 3 days and then restart from 10-03-24 Rx Instructions: Hold if serum potassium more than 5.0. Discontinued furosemide 40 mg tablet 40 mg PO DAILY PRN (Reason: weight gain) 30 Days Qty: 30 3RF Patient Comments: for ankle swelling. pt takes on occasion vitamin E (dl, acetate) 180 mg (400 unit) capsule 180 mg PO DAILY Other Ambulatory Orders: Basic Metabolic Profile (BMP) (Routine) Timeframe: 3 Days Facility: [facility] - Location: Laboratory Ordered By: Dr. Ike Gibbs Magnesium (Routine) Timeframe: 3 Days Facility: [facility] - Location: Laboratory Ordered By: Dr. Ike Gibbs Referrals / Follow Up: Didier Watkins MD [Primary Care Provider] - Within 1 Week Jasmyne Sparks PA [Med Staff - Adv Practice Prof] - 11/12/24 9:30 am Disposition Disposition (needs filled in before D/C Order can be placed): Home, Self Care
[2024-09-29] MEDS: oxyCODONE 5 MG Tablet PO (11:04)
[2024-09-29] MEDS: Flecainide 100 MG Tablet 50 MG PO (11:05)
[2024-09-29] MEDS: Metoprolol Tartrate 25 MG Tablet PO (11:06)
[2024-09-29] MEDS: SILDENAFIL CITRATE 20 MG TABLET 40 MG PO (13:29)
[2024-09-29 13:54] LABS: Anion Gap 11 (5-15); BUN 28 mg/dL (7-18); BUN/Creat Ratio 15.6 RATIO (10-20); Calcium,Total 8.7 mg/dL (8.5-10.1); Chloride 101 mmol/L (98-107); Creatinine, Serum 1.79 mg/dL (0.55-1.02); EST Glomerular Filtration Rate 31 mL/min (>60); Est Glom Filt Rate - Afr Amer 38 mL/min (>60); Estimated Creatinine Clearance 48.39 ml/min; Glucose 148 mg/dL (74-106); Potassium 3.9 mmol/L (3.5-5.1); Sodium Level 137 mmol/L (136-145)
--- NOTE | 2024-09-29 15:20 | DS.PCM_ITS ---
Providers Date of Admission: 09/27/24 Date of Discharge: 09/29/24 Primary Care Physician: Dr. Didier Watkins MD Reason For Visit: ACUTE CONGESTIVE HEART FAILURE Diagnosis Discharge Diagnosis (1) Acute exacerbation of CHF (congestive heart failure): Status: Chronic Code(s): I50.9 - Heart failure, unspecified (2) Metabolic dysfunction-associated steatotic liver disease (MASLD): Status: Chronic Code(s): K76.0 - Fatty (change of) liver, not elsewhere classified (3) PAF (paroxysmal atrial fibrillation): Status: Acute Code(s): I48.0 - Paroxysmal atrial fibrillation (4) Secondary pulmonary arterial hypertension: Status: Chronic Code(s): I27.21 - Secondary pulmonary arterial hypertension (5) Alcoholic fatty liver: Status: Chronic Code(s): K70.0 - Alcoholic fatty liver Plan Patient is a 53-year-old lady presenting with progressive shortness of breath and weight gain 1. Acute congestive heart failure with preserved ejection fraction 2D echo from 12/11/2023 demonstrated estimated EF of 55%. Patient has been admitted to monitored bed started on strict input and output, daily weight, fluid restriction as well as IV diuretics. Repeat echo ordered for subsequent assessment ? 09/28/2024; patient 2D echo demonstrated EF of 55% with mildly enlarged left atrium. Diastolic dysfunction was not able to be assessed. Patient responded to diuretic therapy with a negative fluid balance of 6.6 L over the past 24 hours. 09/29: Since patient was rapidly vigorously diuresed. Her creatinine went up from 1.23?1.6 1 in the morning. Diuretics furosemide were held. Patient wanted to go home therefore repeat BMP was done in afternoon and is still shows 1.79. Advised to hold furosemide and spironolactone for 3 days, repeat BMP and magnesium and then call PCP to resume or titrate the dose of diuretics. Follow- up in cardiology office Jasmyne Sparks. 2. Paroxysmal A. fib/flutter ? Patient is on flecainide and metoprolol as well as systemic anticoagulation with warfarin with subtherapeutic INR. Did continue with patient home meds daily INR ordered for monitoring 3. Pulmonary hypertension ? Patient is on sildenafil, did continue 4. Chronic alcohol dependence ? Counseled on cessation. Patient reported being at risk for possible withdrawal was subsequently placed on a CIWA protocol with phenobarb taper 09/29: Patient has naltrexone at home. Advised to continue weight. Alcohol cessation advised and reinforced. 5. COPD ? Currently not in exacerbation did continue patient home regimen including Trelegy Ellipta 6. Class III obesity with BMI of 46.3 ? Weight loss advised 7. Dyslipidemia -Patient is on statin therapy, continued at home dose 8. Anemia ? Secondary to chronic disorder monitoring H&H and transfuse if patient becomes symptomatic or hemoglobin falls below 7 9. GERD with history of reflux esophagitis ? On PPI 10. Hypothyroidism - Patient is on levothyroxine home dose continued 11. Metabolic dysfunction with associated steatotic liver disease ? Patient is followed by hepatology as outpatient patient. On ursodiol. Advised to follow-up in GI/hepatology clinic 12. Depression with anxiety ? Patient is appropriate. 13. Rheumatoid arthritis ? Patient is on hydroxychloroquine 14. DVT prophylaxis ? Patient is on warfarin 15. Hypokalemia -Corrected per protocol, Hypokalemia corrected. Potassium supplement was discontinued and spironolactone dose increased 16. Hypomagnesemia Magnesium was low 1.4 and then 1.4. Getting replaced. Prescription for magnesium sulfate given. Patient is also alcoholic. Discharge medication reconciliation done. Discharge follow-up instructions completed. Discharge process discussed with the patient and all questions were answered to patient's satisfaction. Follow with PCP in 1 to 2 weeks Total time spent, exact 35 minutes on discharge meds reconciliation, examination, coordination of care with nurses and ancillary staff, review of imaging and blood test and discussion with the patient on follow-up instructions. Medications at Discharge Home Medications rosuvastatin 5 mg tablet (Crestor) 10 mg PO DAILY cholesterol 06/18/19 acetaminophen 500 mg tablet 1,000 mg PO DAILY PRN Pain 1-10 Or Fever 08/01/20 cholecalciferol (vitamin D3) 10 mcg (400 unit) capsule 4,000 unit PO DAILY supplement 08/01/20 folic acid 1 mg tablet 1 mg PO DAILY supplement 08/01/20 sildenafil (pulm.hypertension) 20 mg tablet 40 mg PO TID pulmonary HTN 05/01/21 fluticasone fur. 100 mcg-umeclid 62.5 mcg-vilant 25 mcg inhalat.powder (Trelegy Ellipta) 1 inh inhalation DAILY COPD 01/20/22 bupropion HCl 300 mg 24 hr tablet, extended release 300 mg PO DAILY mood 05/16/22 hydroxychloroquine 200 mg tablet (Plaquenil) 400 mg (2 x 200 mg) PO DAILY arthritis #1 TAB 06/13/23 albuterol sulfate 90 mcg/actuation breath activated powder inhaler 2 inh inhalation Q4H PRN shortness of breath 06/24/23 naltrexone 50 mg tablet 50 mg PO DAILY 08/29/23 flecainide 50 mg tablet 50 mg PO Q12H #180 tabs 01/14/24 ursodiol 300 mg capsule 300 mg PO BID heart 90 days #180 caps 01/19/24 pantoprazole 40 mg tablet,delayed release 40 mg PO QAM acid reflux 1 month #30 tabs 09/16/24 metoprolol tartrate 25 mg tablet 25 mg PO Q12H high blood pressure 09/27/24 spironolactone 25 mg tablet 12.5 mg PO DAILY 09/27/24 trazodone 100 mg tablet 100 mg PO QHS PRN Insomnia 09/27/24 warfarin 4 mg tablet 4 mg PO QPM 09/27/24 furosemide 40 mg tablet 40 mg PO DAILY 1 month #30 tabs 09/29/24 magnesium chloride 64 mg (magnesium chloride) tablet,delayed release 128 mg (2 x 64 mg) PO BID 1 month #120 tabs 09/29/24 Physical Exam Narrative Seen and examined Patient is well diuresed. Compared to Friday on 09/27 she lost about 20 to 23 pounds mainly fluid weight. Her legs were smaller in size. She also had facial and upper extremity edema. Physical exam General: Alert, Oriented x3, Cooperative HEENT: Atraumatic, PERRLA, EOMI, Normocephalic Oral: No Gingival or Mucosal Lesions/ Ulcerations Neck: Supple, No JVD, Negative Carotid Bruits Chest wall/Lungs: Air entry diminished in bilateral lung bases. No crepitation/rhonchi Cardiovascular: Regular rate, Regular Rhythm, Normal S1, Normal S2, No M/G/R Abdomen: Bowel Sounds Present, Soft, Non Tender, Non-Distended : No dysuria. No renal angle tenderness. No suprapubic tenderness. Extremities: No edema, Capillary Refill Less than 3 Seconds Skin: No rashes, No breakdown Musculoskeletal: No Tenderness to Palpation of Joints or Extremities Neurological: Cranial nerves II-XII grossly intact, DTR 2+/4. No acute focal neurological deficit. Psych/Mental Status: Normal Affect, Appropriate. Weight / BMI Weight Weight: 272 lb 0.807 oz Body Mass Index (BMI) 42.6 ABG / Lab / Microbiology Data 09/29/24 04:46 09/29/24 13:32 Laboratory: Laboratory Results - last 24 hr 09/29/24 04:46: WBC 4.8, RBC 3.91 L, Hgb 12.0, Hct 37.9, MCV 96.9, MCH 30.7, M CHC 31.7 L, RDW Std Deviation 47.8 H, RDW Coeff of Leighton 13.4, Plt Count 191, MPV 9.3, Immature Gran % (Auto) 1.000 H, Neut % (Auto) 66.6, Lymph % (Auto) 14.0 L, [place] % (Auto) 13.6 H, Eos % (Auto) 4.0, Baso % (Auto) 0.8, Absolute Neuts (auto) 3.2, Absolute Lymphs (auto) 0.67 L, Nucleated RBC % 0, PT 20.0 H, INR 1.7, Sodium 137, Potassium 3.4 L, Chloride 99, Carbon Dioxide 28.0, Anion Gap 10, BUN 27 H, Creatinine 1.61 H, Estim Creat Clear Calc 53.80, Est GFR (MDRD) Af Amer 43 L, Est GFR (MDRD) Non-Af 35 L, BUN/Creatinine Ratio 16.8, Glucose 107 H, Calcium 8.6 09/29/24 13:32: Sodium 137, Potassium 3.9, Chloride 101, Carbon Dioxide 25.0, Anion Gap 11, BUN 28 H, Creatinine 1.79 H, Estim Creat Clear Calc 48.39, Est GFR (MDRD) Af Amer 38 L, Est GFR (MDRD) Non-Af 31 L, BUN/Creatinine Ratio 15.6, G lucose 148 H, Calcium 8.7 D/C Instructions Discharge Diet: Low fat / Low cholesterol and 2000 mg Sodium Diet Weight Bearing Status: Weight bearing as tolerated Call your doctor if you observe: Fever of 101 or Higher, Coldness, Increased Pain, Numbness or Tingling, Change in Color, Inability to urinate, Inability to have a bowel movement, Shortness of breath, Dizziness, Fainting spells, Swelling in the ankles, Chest pain, Prolonged hiccupping, Increased palpitations (irregular heartbeat) and Calf discomfort DC O2, CPAP, BIPAP Needs Home O2 Discharge instructions: No When: IN 2 WEEKS Meaningful Use Info Meaningful Use Meaningful Use Diagnoses (Choose all that apply): CHF CHF PARAM/ARB ordered at discharge?: No Reason PARAM/ARB not ordered?: Worsening renal disease Documented LVEF (%): 55 Ischemic Stroke Statin Dosing Therapy Reference: STATIN DOSE THERAPY REFERENCE: * Patients > 75 years receive moderate or high dose statin therapy. * Patients 75 years or YOUNGER should receive HIGH intensity statin dose unless contraindicated. You will be required to document reason for non-treatment if statin daily dose does not meet guidelines. HIGH DOSE STATIN THERAPY DAILY Atorvastatin > than or = to 40 mg Rosuvastatin > than or = to 20 mg Amlodipine + Atorvastatin > than or = to 2.5/40 mg Ezetimibe + Simvastatin 10/80 mg Simvastatin 80mg Discharge Plan Admission Admit Date/Time: 09/27/24 10:41 Attending Provider: Ike Gibbs Primary Care Provider: Didier Watkins Consulting Providers: Henrik Werner Instructions Additional Instructions / Restrictions: Advised to start furosemide and spironolactone from 10/03/2024 after repeating labs in 3 days and follow with PCP Discharge Orders/Prescriptions Prescriptions: New furosemide 40 mg tablet 40 mg PO DAILY 30 Days Qty: 30 2RF Rx Instructions: Start from 10/03/2024. Take extra 40 mg dose at 5 PM for increased leg swelling or weight gain 5 pounds in 1 week. magnesium chloride 64 mg tablet,delayed release (DR/EC) 128 mg PO BID 30 Days Qty: 120 0RF Continued rosuvastatin [Crestor] 5 mg tablet 10 mg PO DAILY sildenafil (pulm.hypertension) 20 mg tablet 40 mg PO TID hydroxychloroquine [Plaquenil] 200 mg tablet 400 mg PO DAILY Qty: 1 0RF Patient Comments: PT OUT OF MEDS. naltrexone 50 mg tablet 50 mg PO DAILY ursodiol 300 mg capsule 300 mg PO BID 90 Days Qty: 180 6RF acetaminophen 500 MG tablet 1,000 mg PO DAILY PRN (Reason: Pain 1-10 Or Fever) folic acid 1 MG tablet 1 mg PO DAILY cholecalciferol (vitamin D3) 10 MCG capsule 4,000 unit PO DAILY Trelegy Ellipta 100-62.5-25 mcg blister with device 1 inh INHALATION DAILY Patient Comments: PT AWARE FAMILY HAS TO BRING. bupropion HCl 300 mg tablet extended release 24 hr 300 mg PO DAILY albuterol sulfate 90 mcg/actuation aerosol powdr breath activated 2 inh inhalation Q4H PRN (Reason: shortness of breath) warfarin 4 mg tablet 4 mg PO QPM Protocol: Dose Management Condition: Friday Dose/Route: 4 mg Instruction: 1 x 4 mg tablet Condition: Friday Dose/Route: 4 mg Instruction: 1 x 4 mg tablet Condition: Friday Dose/Route: 4 mg Instruction: 1 x 4 mg tablet Condition: Friday Dose/Route: 4 mg Instruction: 1 x 4 mg tablet Condition: Dose/Route: 4 mg Instruction: 1 x 4 mg tablet Condition: Friday Dose/Route: 4 mg Instruction: 1 x 4 mg tablet Condition: Friday Dose/Route: 4 mg Instruction: 1 x 4 mg tablet Protocol Text: Adjustment Start Date: Friday09/17/24 INR Value: 1.3 INR Date: 09/17/24 Recheck Date: 09/24/24 trazodone 100 mg Tablet 100 mg PO QHS PRN (Reason: Insomnia) metoprolol tartrate 25 mg tablet 25 mg PO Q12H flecainide 50 mg tablet 50 mg PO Q12H Qty: 180 3RF pantoprazole 40 mg tablet,delayed release (DR/EC) 40 mg PO QAM 30 Days Qty: 30 6RF Held spironolactone 25 mg tablet 12.5 mg PO DAILY Hold Instructions: Hold for 3 days and then restart from -25 Rx Instructions: Hold if serum potassium more than 5.0. Discontinued furosemide 40 mg tablet 40 mg PO DAILY PRN (Reason: weight gain) 30 Days Qty: 30 3RF Patient Comments: for ankle swelling. pt takes on occasion vitamin E (dl, acetate) 180 mg (400 unit) capsule 180 mg PO DAILY Other Ambulatory Orders: Basic Metabolic Profile (BMP) (Routine) Timeframe: 3 Days Facility: [facility] - Location: Laboratory Ordered By: Dr. Ike Gibbs Magnesium (Routine) Timeframe: 3 Days Facility: [facility] - Location: Laboratory Ordered By: Dr. Ike Gibbs Referrals / Follow Up: Didier Watkins MD [Primary Care Provider] - Within 1 Week Jasmyne Sparks, PA [Med Staff - Pending Sale To [facility] Prof] - 11/12/24 9:30 am Disposition Disposition (needs filled in before D/C Order can be placed): Home, Self Care Charges/Coding Visit Charges Inpatient E&M: 54741 Disch Hosp >30min
--- NOTE | 2024-09-29 16:32 | CASEMGMT ---
Patient has order for discharge. RN CM in to discuss needs at discharge. Patient denies needs or help at discharge. Patient had no further questions or concerns.
[2024-09-29 20:29] LABS: Magnesium 1.7 mg/dL (1.6-2.6)
== END 2024-09-29 17:40 | disposition home or self-care (01) | DRG 291 ==
LOC: ED 09:17 → PCU 11:14
PROVIDERS: Admitting Provider Internal Medicine; Emergency Provider Emergency Medicine; PCP Family Medicine; Visit Provider Internal Medicine
DX: I13.0 Hypertensive heart and chronic kidney disease with heart failure and stage 1 through stage 4 chronic kidney disease, or unspecified chronic kidney disease (principal); I50.31 Acute diastolic (congestive) heart failure; Z68.42 Body mass index [BMI] 45.0-49.9, adult; N17.9 Acute kidney failure, unspecified; D63.1 Anemia in chronic kidney disease; I27.21 Secondary pulmonary arterial hypertension; Z79.01 Long term (current) use of anticoagulants; J44.9 Chronic obstructive pulmonary disease, unspecified; M06.9 Rheumatoid arthritis, unspecified; F10.20 Alcohol dependence, uncomplicated; E03.9 Hypothyroidism, unspecified; N18.9 Chronic kidney disease, unspecified; K70.0 Alcoholic fatty liver; I48.0 Paroxysmal atrial fibrillation; F41.8 Other specified anxiety disorders; K21.9 Gastro-esophageal reflux disease without esophagitis; E78.5 Hyperlipidemia, unspecified; E87.6 Hypokalemia; G47.33 Obstructive sleep apnea (adult) (pediatric); E83.42 Hypomagnesemia; Z79.51 Long term (current) use of inhaled steroids; Z87.891 Personal history of nicotine dependence; Z90.710 Acquired absence of both cervix and uterus; E66.813 Obesity, class 3; Z99.89 Dependence on other enabling machines and devices; Z79.899 Other long term (current) drug therapy; Z90.49 Acquired absence of other specified parts of digestive tract; Z79.890 Hormone replacement therapy
CPT/HCPCS: 36415; 51702; 71046; 80048; 80053; 83605; 83735; 83880; 84100; 84484; 85025; 85610; 93005; 93306; 94668; 97802; 99252; 99285; Q9957; A4216; C8929; G0463; J1940

== ENCOUNTER → 2024-09-28 | Outpatient (CLI) | payer BC, SELFPAY ==
[2024-10-01 00:07] LABS: Pancreatic Elastase, Fecal > 800 (>200)
[2024-10-01 09:07] LABS: Calprotectin, Stool 34 ug/g (0-120); Fats, Neutral Normal (.); Fats, Total Normal (.)
== END | disposition home or self-care (01) ==
LOC: LABSPEC 10:51
PROVIDERS: PCP Family Medicine; Referring Provider Internal Medicine; Visit Provider Internal Medicine
DX: K58.9 Irritable bowel syndrome, unspecified (principal); I50.810 Right heart failure, unspecified; R19.5 Other fecal abnormalities; K76.0 Fatty (change of) liver, not elsewhere classified; K70.0 Alcoholic fatty liver; F10.10 Alcohol abuse, uncomplicated
CPT/HCPCS: 82653; 82705; 83993; 87506

== ENCOUNTER → 2024-10-18 | Outpatient (CLI) | payer BC, SELFPAY ==
[2024-10-18 10:57] LABS: Prothrombin Time (Protime)PT. 23.5 SECONDS (11.7-14.9)
[2024-10-18 11:07] LABS: Anion Gap 13 (5-15); BUN 34 mg/dL (7-18); BUN/Creat Ratio 26.2 RATIO (10-20); Calcium,Total 8.9 mg/dL (8.5-10.1); Chloride 101 mmol/L (98-107); Cholesterol 209 mg/dL (200); EST Glomerular Filtration Rate 45 mL/min (>60); Est Glom Filt Rate - Afr Amer 55 mL/min (>60); Free T3 2.9 pg/mL (2.18-3.98); Glucose 100 mg/dL (74-106); High Density Lipoprotein 126 mg/dL; Potassium 3.6 mmol/L (3.5-5.1); Sodium Level 136 mmol/L (136-145); T4 Free Direct 1.04 ng/dL (0.76-1.46); Triglycerides 126 mg/dL; Very Low Density Lipoprotein 25 mg/dL (5-40)
== END | disposition home or self-care (01) ==
PROVIDERS: Internal Medicine Cardiovascular Disease; PCP Family Medicine; Referring Provider Family Medicine; Visit Provider Family Medicine
DX: I10 Essential (primary) hypertension (principal); I48.91 Unspecified atrial fibrillation; E03.9 Hypothyroidism, unspecified; Z79.01 Long term (current) use of anticoagulants
CPT/HCPCS: 36415; 80048; 80061; 84439; 84443; 84481; 85610

== ENCOUNTER 2024-11-05 16:32 | Outpatient (RCR) | payer BC, SELFPAY ==
[2024-11-05 18:52] LABS: International Normalized Ratio 4.1; Prothrombin Time (Protime)PT. 40.4 SECONDS (11.7-14.9)
[2024-11-09 09:25] LABS: INR Fingerstick 4.5; Prothrombin Time Fingerstick 43.9 SEC (11.7-14.9)
== END 2024-11-05 18:00 | disposition home or self-care (01) ==
LOC: LAB 16:32
PROVIDERS: PCP Family Medicine; Referring Provider Physician Assistant Medical; Visit Provider Physician Assistant Medical
DX: I48.0 Paroxysmal atrial fibrillation (principal); Z79.01 Long term (current) use of anticoagulants
CPT/HCPCS: 36415; 36416; 85610

== ENCOUNTER → 2024-12-07 | Outpatient (CLI) | payer BC, SELFPAY ==
[2024-12-07 08:36] LABS: Hematocrit 38.5 % (37-47); Hemoglobin 12.7 g/dL (12.0-15.0); Mean Corpuscular Hgb 30.8 pg (27.0-32.0); Mean Corpuscular Volume 93.4 fL (81-99); Platelet Count 173 K/mm3 (150-450); RBC Distribution Width CV 13.7 % (11.6-14.6); RBC Distribution Width SD 46.7 fl (35.1-43.9); Red Blood Count 4.12 M/mm3 (4.2-5.4); White Blood Count 6.2 K/mm3 (4.4-11.0)
== END | disposition home or self-care (01) ==
LOC: LAB 08:02
PROVIDERS: Internal Medicine Cardiovascular Disease; PCP Family Medicine; Referring Provider Physician Assistant Medical; Visit Provider Physician Assistant Medical
DX: I48.91 Unspecified atrial fibrillation (principal); I48.3 Typical atrial flutter; I10 Essential (primary) hypertension; Z79.01 Long term (current) use of anticoagulants
CPT/HCPCS: 36415; 85027

== ENCOUNTER 2024-12-14 07:58 | Outpatient (RCR) | payer BC, SELFPAY ==
[2024-12-06 09:16] LABS: Prothrombin Time (Protime)PT. 105.9 SECONDS (11.7-14.9)
[2024-12-06 09:35] LABS: International Normalized Ratio 13.8
[2024-12-09 08:12] LABS: INR Fingerstick 3.1; Prothrombin Time Fingerstick 32.2 SEC (11.7-14.9)
[2024-12-14 08:21] LABS: INR Fingerstick 1.2; Prothrombin Time Fingerstick 13.9 SEC (11.7-14.9)
== END 2024-12-29 18:00 | disposition home or self-care (01) ==
LOC: LAB 07:58
PROVIDERS: PCP Family Medicine; Referring Provider Physician Assistant Medical; Visit Provider Physician Assistant Medical
DX: I48.0 Paroxysmal atrial fibrillation (principal); Z79.01 Long term (current) use of anticoagulants; I50.810 Right heart failure, unspecified; E66.01 Morbid (severe) obesity due to excess calories; Z68.41 Body mass index [BMI] 40.0-44.9, adult; K74.00 Hepatic fibrosis, unspecified; R63.4 Abnormal weight loss; R79.1 Abnormal coagulation profile
CPT/HCPCS: 36416; 85610

== ENCOUNTER 2025-06-23 07:24 | Outpatient (CLI) | payer BC, SELFPAY ==
--- NOTE | 2025-06-23 07:26 | US_ITS ---
PROCEDURE: ABD LIMITED W/ ELASTOGRAPHY REASON FOR EXAM: ALCOHOLIC HEPATITIS/FIBROSIS COMPARISON: Prior study dated December 24, 2023. TECHNIQUE: Procedure Code: [id number] Modality: US Procedure: ABD LIMITED W/ ELASTOGRAPHY Right upper quadrant abdominal ultrasound. [facility] ElastQ Imaging shear wave elastography for non-invasive assessment of liver tissue stiffness. [facility] EPIQ Elite. FINDINGS: LIVER: Size: Unremarkable Length: 16.3 cm Echotexture: Diffusely echogenic suggesting fatty infiltration Contour: Normal Lesions: None identified Elastography: EQI Med: 3.8 kPa EQI Med Nino: 1.13 m/s IQR/Med: 25.3 %* GALLBLADDER: Surgically absent. COMMON BILE DUCT: Normal measuring 5.6 mm. . PANCREAS: Normal Visualized portions of the right kidney are unremarkable. No right upper quadrant ascites. Spleen: The spleen measures 12.7 cm 5.6 cm 4.6 cm. It is unremarkable. US/ABD Limited w/ Elastography IMPRESSION: NO TO MILD HEPATIC FIBROSIS Diffuse fatty infiltration of the liver. Reference Values: SRU <1.37 m/s (5.7kPa): No to mild fibrosis 1.37 m/s - 2.2 m/s: Moderate to severe fibrosis >2.2 m/s (15kPa): Significant fibrosis / cirrhosis METAVIR Score F2 or higher: 1.34 m/s (5.7kPa) F3 or higher: 1.55 m/s (7.3kPa) F4: 1.80 m/s (10kPa) * If the IQR/Med is >30%, the variance in the measurements is a large and the a ccuracy of the measurement may be in question. Reading Location: [id number]
--- OUTSIDE RECORDS SUMMARY | 2025-06-23 07:29 | XMS RPT_ITS | CCD ---
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 Sarai Villalobos Primary Care Provider Dr. Sarai Watkins Referring Provider Dr. Luis Benavides Attending Provider Cindy MIKE, CURER FOAM RUBBER-C Gris Shine Attending Provider [phone] Attending Provider Dr[address] Nick Ruffin Other Provider Sarai Watkins Referring Provider Unavailable Dr. Anatoliy Gill Attending Provider [phone] Sarai Webber Emergency Provider Dr. Sumeet Shay Admit Provider Dr. Sumeet Shay Attending Provider Dr. Sumeet Shay Other Provider Dr. Alis Quintana Attending Provider Dr. Alis Quintana Other Provider Bridger BREAUX, SAEID Shine Attending Provider Dr. Sarai Watkins Primary Care Provider Dr. Sarai Watkins Referring Provider Dr. Sarai Watkins Primary Care Provider Dr. Sarai Watkins Referring Provider Cindy MIKE, CURER FOAM RUBBER-C Gris Shine Attending Provider [phone] Dr. Luis Benavides Attending Provider Dr. Sarai Watkins Primary Care Provider Friend, Dr. Romero Attending Provider June, Dr. Velásquez Referring Provider Dr. Sarai Watkins Primary Care Provider June, Dr. Velásquez Referring Provider Cindy MIKE, CURER FOAM RUBBER-C Gris Shine Attending Provider Dr. Dann Madrigal Emergency Provider Dr. Shawn Workman Admit Provider Dr. Shawn Workman Attending Provider Dr. Shawn Workman Other Provider Dr. Luis Benavides Other Provider Dr. Sarai Watkins Primary Care Provider Dr. Sarai Webber Emergency Provider Dr. Sumeet Shay Admit Provider Dr. Sumeet Shay Other Provider Dr. Sarai Watkins Primary Care Provider Dr. Sarai Webber Emergency Provider Dr. Sumeet Shay Admit Provider Dr. Sumeet Shay Other Provider Dr. Alis Quintana Attending Provider Dr. Alis Quintana Other Provider Dr. Claudia Craft Emergency Provider Dr. Jennifer Christopher Admit Provider Dr. Jennifer Christopher Other Provider Dr. Sarai White Other Provider DEANNA Ferguson Attending Provider Unavail able Dr. Henrik Werner Attending Provider Unavailable Dr. Henrik Werner Other Provider Unavailable Dr. Anya Julio Other Provider Dr. Brett Baez Attending Provider Dr. Anya Julio Attending Provider Dr. Sarai Watkins Primary Care Provider Dr. Sarai Watkins Referring Provider Bridger BREAUX PA Jasmyne Shine Attending Provider Dr. Jennifer Christopher Attending Provider Dr. Luis Benavides Referring Provider Dr. Sarai Watkins Primary Care Provider Dr. Sarai Watkins Referring Provider Bridger BREAUX PA Jasmyne Shine Attending Provider Dr. Dann Madrigal Emergency Provider Dr. Shawn Workman Admit Provider Dr. Shawn Workman Attending Provider Dr. Shawn Workman Other Provider Dr. Luis Benavides Other Provider Dr. Luis Benavides Attending Provider Dr. Claudia Craft Emergency Provider Dr. Jennifer Christopher Admit Provider Dr. Jennifer Christopher Attending Provider Dr. Jennifer Christopher Other Provider Dr. Sarai White Other Provider Dr. Henrik Werner Attending Provider Unavailable Dr. Henrik Werner Other Provider Unavailable Dr. Anya Julio Other Provider Dr. Brett Baez Attending Provider Dr. Luis Benavides Referring Provider Dr. Anya Julio Attending Provider Dr. Sarai Watkins Primary Care Provider SAEID Amado Attending Provider Dr. Sarai Watkins Referring Provider Cindy CURER FOAM RUBBER, CURER FOAM RUBBER-Brian Shine Attending Provider Dr. Sarai Watkins Primary Care Provider SAEID Amado Attending Provider Dr. Jason Reardon Emergency Provider [phone] Jennifer Christopher Admit Provider Dr. Jennifer Christopher Attending Provider Dr. Jennifer Christopher Other Provider Dr. Henrik Werner Attending Provider Unavailable Dr. Henrik Werner Other Provider Unavailable Dr. Maurice Barrientos Attending Provider Dr. Maurice Barrientos Other Provider Dr. Saria Watkins Primary Care Provider Dr. Sarai Watkins Referring Provider SAEID Amado Attending Provider Dr. Sarai White Attending Provider Dr. Jennifer Christopher Referring Provider Dr. Sarai White Referring Provider Dr. Eyad Dwyer Attending Provider Sarai Watkins MD Primary Care Provider [phone] Sarai Watkins MD Primary Care Provider Dr. Sarai Watkins Primary Care Provider Dr. Sarai Watkins Referring Provider SAEID Amado Attending Provider Dr. Jason Reardon Emergency Provider Dr. Jennifer Christopher Admit Provider Dr. Jennifer Christopher Attending Provider Dr. Jennifer Christopher Other Provider Dr. Sarai White Attending Provider Dr. Jennifer Christopher Referring Provider Dr. Henrik Werner Attending Provider Unavailable Dr. Henrik Werner Other Provider Unavailable Dr. Sarai White Referring Provider Dr. Maurice Barrientos Attending Provider Dr. Maurice Barrientos Other Provider Dr. Eyad Dwyer Attending Provider Dr. Sarai Watkins Primary Care Provider Dr. Sarai Watkins Referring Provider Bridger BREAUX PA Jasmyne Shine Attending Provider Dr. Bartolo Callejas Emergency Provider Dr. Hung Vinson Admit Provider Dr. Hung Vinson Other Provider Dr. Rose Marie Baker Attending Provider Dr. Rose Marie Baker Other Provider Dr. Sarai Watkins Primary Care Provider Dr. Sarai Watkins Referring Provider Bridger BREAUX PA Jasmyne Shine Attending Provider Dr. Bartolo Callejas Emergency Provider Dr. Hung Vinson Admit Provider Dr. Hung Vinson Other Provider Dr. Rose Marie Baker Attending Provider Dr. Rose Marie Baker Other Provider Dr. Sarai Watkins Primary Care Provider Dr. Sarai Watkins Referring Provider Bridger BREAUX PA Jasmyne Shine Attending Provider SARAI WATKINS Primary Care Unavailable SARAI WATKINS Primary Care Unavailable SARAI WATKINS Primary Care Unavailable CLEMONS, SHANE R Referring Unavailable WATKINS, SARAI R Primary Care Unavailable SHREWSBURY, SHANE R Referring Unavailable WATKINS, SARAI R Primary Care Unavailable SHREWSBURY, SHANE R Referring Unavailable RONAL MACDONALD Attending Unavailable WATKINS, SARAI R Primary Care Unavailable SAMUEL, BARTOLO Referring Unavailable WATKINS, SARAI R Primary Care Unavailable WATKINS, SARAI R Primary Care Unavailable SAMUEL, BARTOLO Attending Unavailable BAKER, BARTOLO Referring Unavailable WATKINS, SARAI R Primary Care Unavailable SHREWSBURY, SHANE Casillas Referring Unavailable June, Dr. Velásquez Primary Care Provider June, Dr. Velásquez Referring Provider SAEID Amado Attending Provider Dr. Ike Gibbs Attending Provider Dr. Eyad Dwyer Attending Provider June, Dr. Velásquez Primary Care Provider June, Dr. Velásquez Referring Provider June DIAZ, Sarai Casillas Primary Care Provider June DIAZ, Dr. Velásquez Primary Care Provider June DIAZ, Dr. Velásquez Attending Provider June DIAZ, Dr. Velásquez Referring Provider Sai DIAZ, Dr. Ramires Attending Provider Sai DIAZ, Dr. Ramires Referring Provider Jasmyne Amado Other Provider Jasmyne Amado Attending Provider Jasmyne Amado Referring Provider Sander DIAZ, Dr. Barrera Emergency Provider Debbi DIAZ, Dr. Chester Admit Provider Unavailable Debbi DIAZ, Dr. Chester Other Provider Unavailable Reymundo DIAZ, Dr. Castano Attending Provider Debbi DIAZ, Dr. Chester Attending Provider Unavailricardo Gibbs MD, Dr. Ramires Other Provider Kennedy DIAZ, Dr. [place] Other Provider June DIAZ, Dr. Velásquez Primary Care Provider [phone] June DIAZ, Dr. Velásquez Referring Provider June DIAZ, Dr. Velásquez Attending Provider June DIAZ, Dr. Velásquez Primary Care Provider June DIAZ, Dr. Velásquez Referring Provider Jasmyne Amado Attending Provider Jasmyne Amado Referring Provider Sai DIAZ, Dr. Ramires Attending Provider June DIAZ, Dr. Velásquez Primary Care Physician [phone] June DIAZ, Dr. Velásquez Referring Provider Sai DIAZ, Dr. Ramires Attending Physician Jasmyne Amado Attending Physician Jasmyne Amado Referring Unavail able Jasmyne Amado Attending Unavail able Watkins, Sarai Primary Care Unavailable Watkins, Sarai Referring Unavailable Watkins, Sarai Primary Care Unavailable Jasmyne Amado Attending Unavail able Watkins, Sarai Referring Unavailable Sai, Ike Attending Unavailable Watkins, Sarai Primary Care Unavailable Watkins, Sarai Referring Unavailable Watkins, Sarai Primary Care Unavailable Sai, Ike Attending Unavailable Watkins, Sarai Primary Care Unavailable Sai, Ike Referring Unavailable Sai, Ike Attending Unavailable Jasmyne Amado Attending Unavail able Jasmyne Amado Referring Unavail able Watkins, Sarai Primary Care Unavailable Jasmyne Amado Referring Unavail able Watkins, Sarai Primary Care Unavailable Jasmyne Amado Attending Unavail able Watkins, Sarai Referring Unavailable Kennedy, Luis Consulting Unavailable Watkins, Sarai Primary Care Unavailable Watkins, Sarai Attending Unavailable Jasmyne Amado Referring Unavail able Watkins, Sarai Primary Care Unavailable Jasmyne Amado Attending Unavail able Watkins, Sarai Referring Unavailable Watkins, Sarai Primary Care Unavailable Jasmyne Amado Attending Unavail able Jasmyne Amado Consulting Unavail able Sai, Ike Referring Unavailable Sai, Ike Attending Unavailable Watkins, Sarai Primary Care Unavailable Caleber Eyad Attending Unavailabl e Watkins, Sarai Primary Care Unavailable Watkins, Sarai Referring Unavailable Watkins, Sarai Primary Care Unavailable Sai, Ike Attending Unavailable Watkins, Sarai Primary Care Unavailable Kittodanny, Henrik Admitting Unavailable Kittodanny, Henrik Attending Unavailable Kittoe, Henrik Consulting Unavailable Sai, Ike Attending Unavailable Sai, Ike Consulting Unavailable Watkins, Sarai Referring Unavailable Watkins, Sarai Primary Care Unavailable Sai, Ike Attending Unavailable Watkins, Sarai Referring Unavailable Watkins, Sarai Attending Unavailable Watkins, Sarai Primary Care Unavailable Jasmyne Amado Referring Unavail able Watkins, Sarai Primary Care Unavailable Bridger BREAUX, Jasmyne Shine Attending Unavail able Watkins, Sarai Referring Unavailable Watkins, Sarai Attending Unavailable Watkins, Sarai Primary Care Unavailable Bridger BREAUX, Jasmyne Shine Referring Unavail able Bridger BREAUX, Jasmyne Shine Attending Unavail able Watkins, Sarai Primary Care Unavailable Watkins, Sarai Primary Care Unavailable Kittodanny, Henrik Consulting Unavailable Kittoe, Henrik Admitting Unavailable Sai, Ike Attending Unavailable Watkins, Sarai Primary Care Unavailable Sai, Ike Referring Unavailable Sai, Ike Attending Unavailable WATKINSSARAI CLARK Primary Care Unavailable DENISE KLINE Attending Unavailabl e WATKINS, SARAI LUND Primary Care Unavailable DENISE KLINE Attending Unavailabl e Allergies Allergy Classification Reported Allergen(s) Allergy Type Date of Onset Reaction(s) Facility Acetaminophen / HYDROcodone (2 sources) Acetaminophen / HYDROcodone Drug Allergy 0 Itching [facility] cow milk allergenic extract (2 sources) cow milk allergenic extract Drug Allergy 5 [facility] cultivated mushroom extract (2 sources) cultivated mushroom extract Drug Allergy 5 [facility] Doxycycline (2 sources) Doxycycline Drug Allergy 0 Rash [facility] Opioid Agonists (4 sources) HYDROcodone Drug Allergy 7 Itching, Other (See Comments) [facility] Pollen (2 sources) bee pollen Substance Allergy 5 Other (See Comments) [facility] (15 sources) Acetaminophen / HYDROcodone; Translations: [HYDROCODONE-ACET AMINOPHEN] Drug Allergy 0 Itching [place], [place] (20 sources) Doxycycline; Translations: [DOXYCYCLINE] Drug Allergy 0 Rash, Hives [place], [place] (20 sources) traMADol; Translations: [TRAMADOL] Drug Allergy 0 Other (See Comments), GI Intolerance, Itching, GI Upset [place], [place] (1 source) bee pollen Propensity to adverse reactions to drug 5 [facility] Work Phone: (20 sources) cow milk allergenic extract Drug Allergy 5 Other (See Comments) [facility] Work Phone: (1 source) cultivated mushroom extract Drug Allergy [facility]: (20 sources) HYDROcodone; Translations: [HYDROCODONE] Drug Allergy 7 [facility]ching [facility] Work [facility]: (2 sources) Other; Translations: [OTHER] Propensity to adverse reactions 5 [facility] Work Phone: (12 sources) Pollen; Translations: [POLLEN] Propensity to adverse reactions 5 [facility] Work Phone: (11 sources) environmental [Other] Propensity to adverse reactions 5 [facility] Work Phone: (11 sources) mushrooms [Other] Propensity to adverse reactions 5 [facility] Work Phone: [phone] (3 sources) Milk; Translations: [MILK] Propensity to adverse reactions to drug (disorder) 5 [facility] Repository (1 source) Doxycycline Drug Allergy 5 [facility] Repository (1 source) HYDROcodone Drug Allergy 5 [facility] Medications Current Medications Medication Drug Class(es) Dates Sig (Normalized) Sig (Original) acetaminophen 325 mg oral tablet (20 sources) Start: 08-02-2020 End: 08-03-2020 take 650 mg by mouth every four hours for pain 650 mg, Oral, EVERY 4 HOURS PRN, Other, Pain (1-10), Starting [facility] 08/03/20 at 1644 Give in addition to any other pain medication ordered at same time for any pain indication. Start: 08-01-2020 take 1000 mg by mout h once daily as needed Acetaminophen Active 1000 MG PO DAILY NEEDED August 01, 2020 1:00am Start: 07-08-2018 acetaminophen (TYLENOL) 500 MG tablet Take by mouth as needed . 07/08/2018 Active Start: 07-08-2018 acetaminophen (TYLENOL) 325 mg tablet acetaminophen Acetaminophen 650 MG PO EVERY 6 HOURS NEEDED PRN For Mild Pain (scale 0-3)/T>100.7 July 08, 2018 Active 07-08-2018 [facility] ([id number]) 07/08/2018 Active Comment on above: acetaminophen Acetam inophen 650 MG PO EVERY 6 HOURS NEEDED PRN For Mild Pain (scale 0-3)/T>100.7 July 08, 2018 Active 07-08-2018 [facility] ([id number]) Take by mouth as nee ded. acetaminophen 300 mg / codeine phosphate 30 mg oral tablet (8 sources) Opioid Agonist Start: 2 take 1 tablet by mouth every six hours as needed Acetaminophen-Cod eine Active 1 TABLET PO EVERY 6 HOURS NEEDED May 15, 2022 11:00pm Acetaminophen / oxyCODONE (4 sources) Opioid Agonist Start: 1 oxyCODONE-acetami nophen (PERCOCET) 5-325 MG per tablet 1 tablet Start: 01-18-2021 End: 01-23-2021 oxyCODONE-acetaminophen (PER COCET) 5-325 MG per tablet Indications: Hiatal hernia Take 1 tablet by mouth every 6 hours as needed for Pain for up to 2 days. Intended supply: 3 days. Take lowest dose possible to manage pain 8 tablet 0 01/20/2021 01/22/2021 Active Start: 08-03-2020 End: 08-10-2020 take 1 tablet by mouth every six hours as needed for pain, then take 1 tablet by mouth as needed for pain oxyCODONE-acetaminophen (PERCOCET) 5-325 MG per tablet Indications: Intractable abdominal pain Take 1 tablet by mouth every 6 hours as needed for Pain for up to 7 days. Intended supply: 7 days. Take lowest dose possible to manage pain 20 tablet 0 08/03/2020 08/10/2020 Active 200 actuat albuterol 0.09 mg/actuat dry powder inhaler (20 sources) beta2-Adrenergic Agonist Start: 06-24-2023 Albut gus Sulfate 90 mcg/actuation aerosol powdr breath activated Active 2 NMA INHALATION Q4H as needed for shortness of breath June 24, 2023 12:00am Complies with drug therapy Start: 06-24-2023 Albuterol Sulf ate Active 2 INH INHALATION Q4H June 24, 2023 12:00am Start: 01-18-2021 take 1 puff(s) by in halation four times daily 1 puff, Inhalation, 4 TIMES DAILY, First dose on [facility] 01/18/21 at 1999 Start: 01-18-2021 End: 01-19-2021 2.5 mg, Nebulization, 4 TIME S DAILY, First dose on [facility] 01/18/21 at 1999 Start: 06-26-2020 take 2.5 mg by inhal ation every six hours as needed Albuterol Sulfate Active 2.5 MG INHALATION EVERY 6 HOURS NEEDED December 28, 2020 3:17pm Start: 06-13-2020 PROAIR HFA 108 (90 Base) MCG/ACT inhaler Start: 09-22-2019 take 1 puff(s) by in halation every four hours as needed Albuterol Sulfate Active 1 - 2 PUFF IH EVERY 4 HOURS NEEDED September 22, 2019 4:15pm Start: 06-08-2019 albuterol (PRO VENTIL) 2.5 mg /3 mL (0.083 %) nebulizer solution Inhale 1 Unspecified as needed . 06/08/2019 Active Start: 06-08-2019 PROAIR HFA 90 mcg/actuation inhaler as needed. 2 06/08/2019 Active Comment on above: as needed. albuterol 0.833 mg/ml / ipratropium bromide 0.167 mg/ml inhalant solution (2 sources) Anticholinergic, beta2-Adrenergic Agonist Start: 0 End: 0 ipratropium-albuter ol (DUONEB) nebulizer solution 1 ampule aluminum hydroxide 40 mg/ml / magnesium hydroxide 40 mg/ml / simethicone 4 mg/ml oral suspension (1 source) Start: 0 aluminum & magnesium hydroxide-simethico ne (MAALOX) 200-200-20 MG/5ML suspension 30 mL apixaban 5 mg oral tablet (20 sources) Factor Xa Inhibitor Start: 1 End: 4 take 1 tablet by mouth twice daily Apixaban (Eliquis) 5 mg tablet Active 5 mg PO TWICE A DAY 180 3 December 02, 2024 12:00am Complies with drug therapy Comment on above: Take 1 tablet by marla th twice daily. Take 5 mg by mouth t wo times a day. ascorbic acid 60 mg / beta carotene 5000 unt / copper sulfate 40 mg / dl-alpha tocopheryl acetate 30 unt / sodium selenite 0.04 mg / zinc oxide 40 mg oral tablet (1 source) Vitamin C Start: 0 therapeutic multivitamin-minera ls 1 tablet benzonatate 100 mg oral capsule (11 sources) Non-narcotic Antitussive Start: 9 take 1 capsule by mouth every eight hours as needed benzonatate (TESSALON PERLE) 100 mg capsule Take 1 capsule by mouth three times daily as needed. 30 capsule 01/09/2019 Active Comment on above: Take 1 capsule by mo [facility] three times daily as needed. 24 hr buPROPion hydrochloride 300 mg extended release oral tablet (20 sources) Aminoketone Start: 1 take 1 tablet by mouth once daily buPROPion (WELLBUTRIN XL) 300 MG 24 hr tablet Take 1 (one) tablet (300 mg total) by mouth daily . 08/29/2021 Active Start: 08-29-2021 take 1 tablet by marla every twenty-four hours buPROPion XL (WELLBUTRIN XL) 300 mg 24 hr tablet Take by mouth. 0 08/29/2021 Active Comment on above: Take by mouth. Take 300 mg by mouth once daily. diphenhydrAMINE hydrochloride 25 mg oral tablet (14 sources) Histamine-1 Receptor Antagonist Start: 08-03-2020 diphenhydrAMINE (BENADRYL) tablet 50 mg Start: 08-02-2020 End: 08-03-2020 take 50 mg by mouth twice daily 50 mg, Oral, 2 TIMES DAILY, First dose on Fri08/02/20 at 2100 End: 11-16-2023 diphenhydrAMINE (BENADRYL) 2 5 mg capsule Take 50 mg by mouth as needed. 0 Active Comment on above: Take 50 mg by mouth. Take 50 mg by mouth as needed. 0.4 ml enoxaparin sodium 100 mg/ml prefilled syringe (2 sources) Low Molecular Weight Heparin Start: 01-19-2021 inject 40 mg by subcutaneous injection once daily 40 mg, Subcutaneous, DAILY, First dose on 01/19/21 at 0900 Start: 08-03-2020 inject 40 mg by subc utaneous injection once daily 40 mg, Subcutaneous, DAILY, First dose on [place] 08/03/20 at 1700 flecainide acetate 50 mg oral tablet (20 sources) Antiarrhythmic Start: 01-14-2024 End: 04-20-2025 take 1 tablet by mouth every twelve hours Flecainide 50 mg tablet Active 50 mg PO Q12H 180 3 April 20, 2025 4:53pm Complies with drug therapy Start: 10-28-2022 take 50 mg by mouth twice mila y Flecainide Active 50 MG PO TWICE A DAY 60 October 28, 2022 10:35am Start: 01-05-2021 End: 01-14-2024 Flecainide 100 mg tablet Discontinued 50 mg PO TWICE A DAY 60 11 October 28, 2022 10:35am January 14, 2024 10:22am heart rhythm Start: 01-05-2021 End: 10-28-2022 take 1 tablet by mouth twice daily flecainide (TAMBOCOR) 100 MG tablet Take 1 (one) tablet (100 mg total) by mouth 2 (two) times a day . 10/11/2021 Active Comment on above: Take 1 tablet by marla twice daily. Take 50 mg by mouth two times a day. 120 actuat fluticasone propionate 0.22 mg/actuat metered dose inhaler (1 source) Corticosteroid Start: 08-04-2020 fluticasone (FLOVENT HFA) 220 MCG/ACT inhaler 1 puff Fluticasone Propion-Salmeterol (9 sources) Corticosteroid, beta2-Adrenergic Agonist Start: 05-16-2022 Fluticasone Propion-Salmeterol (Advair Diskus) 500-50 mcg/dose blister with device Active 1 INH INHALATION TWICE A DAY May 16, 2022 12:00am Start: 09-30-2021 End: 11-16-2023 Advair Diskus 500-50 mcg/dos e diskus inhaler Inhale 2 (two) times a day . 0 09/30/2021 11/16/2023 Discontinued Start: 07-30-2021 Fluticasone Pr opion-Salmeterol Active 2 INH INHALATION TWICE A DAY July 30, 2021 2:29pm Zxaloasnhoz-Jgxjuztic-Hyxxvk er (20 sources) Anticholinergic, Corticosteroid, beta2-Adrenergic Agonist Start: 01-20-2022 Hqgbgtqdaig-Bkxaabkze-Yfyjgj er (Trelegy Ellipta) 100-62.5-25 mcg blister with device Active 1 INH INHALATION DAILY January 20, 2022 7:21pm Start: 01-20-2022 Fluticasone-Um eclidin-Vilanter (Trelegy Ellipta) 100-62.5-25 mcg blister with device Active 1 NMA INHALATION DAILY January 20, 2022 12:00am COPD Complies with drug therapy Start: 01-20-2022 Fluticasone-Um eclidin-Vilanter (Trelegy Ellipta) 100-62.5-25 mcg blister with device Active 1 NMA INHALATION DAILY January 20, 2022 12:00am Start: 01-20-2022 Fluticasone-Um eclidin-Vilanter (Trelegy Ellipta) 100-62.5-25 mcg blister with device Active 1 INH INHALATION DAILY January 19, 2022 11:00pm Start: 01-20-2022 Fluticasone-Um eclidin-Vilanter (Trelegy Ellipta) 100-62.5-25 mcg blister with device Active 1 INH INHALATION DAILY January 20, 2022 12:00am Start: 01-18-2021 fluticasone-um eclidin-vilant (TRELEGY ELLIPTA) 100-62.5-25 MCG/INH inhaler 1 puff Start: 07-04-2020 take 1 puff(s) by inhalation once daily TRELEGY ELLIPTA 100-62.5-25 MCG/INH AEPB Inhale 1 puff into the lungs daily 0 07/04/2020 Active Start: 07-04-2020 TRELEGY ELLIPT A 100-62.5-25 MCG/INH AEPB Start: 06-18-2019 End: 07-30-2021 Socbyeqkhgt-Ckwyytvuq-Yacofi er (Trelegy Ellipta) 100-62.5-25 mcg blister with device Discontinued 1 INH INHALATION DAILY June 18, 2019 9:31am July 30, 2021 2:29pm Start: 06-18-2019 End: 07-30-2021 Ibgyjeazsqe-Ksgpgmhve-Qqifbh er (Trelegy Ellipta) 100-62.5-25 mcg blister with device Discontinued 1 NMA INHALATION DAILY June 18, 2019 12:00am July 30, 2021 2:29pm Start: 06-18-2019 End: 07-30-2021 Qaslkzosjaa-Yghplcgqy-Ruhuni er (Trelegy Ellipta) 100-62.5-25 mcg blister with device Discontinued 1 INH INHALATION DAILY June 17, 2019 11:00pm July 30, 2021 1:29pm Start: 06-18-2019 End: 07-30-2021 Ubsgdqxwego-Fmkvlplia-Ksgudh er (Trelegy Ellipta) 100-62.5-25 mcg blister with device Discontinued 1 INH INHALATION DAILY June 18, 2019 12:00am July 30, 2021 2:29pm Start: 06-13-2019 TRELEGY ELLIPT A 100-62.5-25 mcg dsdv 1 Puff once daily. 3 06/13/2019 Active Comment on above: 1 Puff once daily. folic acid 1 mg oral tablet (20 sources) Start: 04-28-2016 take 1 tablet by mouth once daily folic acid (FOLVITE) 1 MG tablet Take 1 (one) tablet (1 mg total) by mouth daily . 04/28/2016 Active Comment on above: Take 1 mg by mouth o nce daily. furosemide 40 mg oral tablet (20 sources) Loop Diuretic Start: 10-05-2024 furosemide (LASIX) 40 MG tablet TAKE 1 TABLET BY MOUTH DTAKE AN EXTRA TABLET IF THER IS AN INCREASE OF LEG SWELLING OVER 5 (FIVE) POUNDS 10/05/2024 Active Start: 06-26-2023 End: 09-29-2024 take 1 tablet by mouth once daily as needed Furosemide 40 mg tablet Discontinued 40 mg PO DAILY as needed for weight gain 30 30 3 January 19, 2024 4:05pm September 29, 2024 4:10pm Start: 06-24-2023 End: 06-26-2023 take 1 tablet by mouth every eight hours as needed for edema Furosemide 40 mg tablet Discontinued 40 mg PO Q8H as needed for edema June 24, 2023 12:00am June 26, 2023 4:11pm Start: 04-29-2023 End: 06-24-2023 Furosemide 40 mg tablet Disc ontinued 40 mg PO .COMPLEX 14 2 April 29, 2023 3:56pm June 24, 2023 10:09pm edema 40 mg orally twice daily for next 3 days, then once daily; Start: 06-03-2022 End: 04-29-2023 take 1 tablet by mouth once daily Furosemide 40 mg tablet Discontinued 40 mg PO DAILY 90 3 September 18, 2022 10:14am October 23, 2022 3:58pm edema 250 ml glucose 50 mg/ml / sodium chloride 4.5 mg/ml injection (1 source) Start: 01-19-2021 dextrose 5 % and 0.45 % sodium chloride infusion hydroxychloroquine sulfate 200 mg oral tablet (20 sources) Antimalarial, Antirheumatic Agent Start: 06-07-2025 take 2 tablets by mouth once daily hydroxychloroquine (PLAQUENIL) 200 mg tablet Indications: Anti-phospholipid antibody syndrome Take 2 (two) tablets (400 mg total) by mouth daily . 60 tablet 5 06/07/2025 Active Start: 12-23-2022 End: 06-07-2025 take 2 tablets by mouth once daily hydroxychloroquine (PLAQUENIL) 200 mg tablet Indications: Anti-phospholipid antibody syndrome Take 2 (two) tablets (400 mg total) by mouth daily . 60 tablet 2 01/06/2025 06/07/2025 Discontinued (Reorder (Suppress CancelRx Message to Pharmacy)) Comment on above: Take 400 mg by mouth . Take 400 mg by mouth once daily. hydrOXYzine hydrochloride 50 mg oral tablet (5 sources) Antihistamine Start: 01-25-20 22 take 50 mg by mouth twice daily Hydroxyzine Hcl Active 50 MG PO TWICE A DAY 10 January 24, 2022 12:00am LORazepam (7 sources) Benzodiazepine Start: 05-20-20 21 LORazepam (ATIVAN) tablet 1 mg Start: 01-18-2021 End: 01-18-2021 LORazepam (ATIVAN) injection 0.5 mg Start: 08-04-2020 End: 08-04-2020 LORazepam (ATIVAN) tablet 1 mg Start: 08-02-2020 End: 08-03-2020 LORazepam (ATIVAN) tablet 2 mg Start: 08-02-2020 End: 08-02-2020 LORazepam (ATIVAN) 2 MG/ML i njection Start: 08-02-2020 End: 08-02-2020 LORazepam (ATIVAN) injection 2 mg Start: 08-02-2020 End: 08-02-2020 LORazepam (ATIVAN) injection 1 mg magnesium chloride 598 mg delayed release oral tablet (4 sources) Start: 09-29-2024 take 2 tablets by mouth twice daily Magnesium Chloride 64 mg tablet,delayed release (DR/EC) Active 128 mg PO TWICE A DAY 120 30 0 September 29, 2024 1:00am Complies with drug therapy melatonin 12 mg oral tablet (15 sources) End: 11-16-2023 take 2 tablets by mouth every twenty-fou r hours as needed melatonin 12 mg tab Take 2 tablets by mouth at bedtime as needed for for insomnia. Active Comment on above: Take 2 tablets by [facility] at bedtime as needed for for insomnia. methocarbamol 750 mg oral tablet (11 sources) Muscle Relaxant Start: 01-07-2019 methocarbamol (ROBAXIN) 750 mg tablet 01/07/2019 Active methylPREDNISolone (11 sources) Corticosteroid Start: 07-14-2019 methylPREDNISolone (MEDROL, JORDAN,) 4 mg Dose-Pack Take as directed 1 Package 07/14/2019 Active Start: 07-14-2019 methylPREDNISo lone (MEDROL, JORDAN,) 4 mg Dose-Pack Take as directed 1 Package 0 07/14/2019 Active Comment on above: Take as directed montelukast 10 mg oral tablet (20 sources) Leukotriene Receptor Antagonist Start: take 1 tablet by mouth once daily Montelukast (Singulair) 10 mg tablet Active 10 MG PO DAILY December 27, 2020 11:00pm Start: 08-02-2020 End: 08-03-2020 montelukast (SINGULAIR) tabl et 10 mg Comment on above: Take 10 mg by mouth daily at bedtime. morphine sulfate (PF) injection 2 mg (1 source) Start: 01-18-2021 morphine sulfate (PF) injection 2 mg multivitamin (THERAGRAN) per tablet (11 sources) Start: 12-28-2020 multivitamin (THERAGRAN) per tablet Take by mouth daily . 12/28/2020 Active Start: 12-28-2020 multivitamin ( THERAGRAN) per tablet Take by mouth daily . 0 12/28/2020 Active Multivitamin preparation (20 sources) Start: 12-28-2020 take 1 tablet by mouth once daily Multivitamin Active 1 TABLET PO DAILY December 28, 2020 3:17pm Start: 12-28-2020 End: 06-24-2023 take 1 tablet by mouth once daily Multivitamin Discontinued 1 TABLET PO DAILY December 27, 2020 11:00pm June 24, 2023 9:06pm Start: 12-28-2020 End: 06-24-2023 take 1 tablet by mouth once daily Multivitamin Discontinued 1 TABLET PO DAILY December 28, 2020 12:00am June 24, 2023 10:06pm Start: 12-28-2020 take 1 tablet by marla th once daily Multivitamin Active 1 TABLET PO DAILY December 27, 2020 11:00pm Start: 12-28-2020 take 1 tablet by marla th once daily Multivitamin Active 1 TABLET PO DAILY December 28, 2020 12:00am naltrexone hydrochloride 50 mg oral tablet (10 sources) Opioid Antagonist Start: 08-29-2023 take 1 tablet by mouth once daily Naltrexone 50 mg tablet Active 50 mg PO DAILY August 29, 2023 1:00am Complies with drug therapy nortriptyline 25 mg oral capsule (20 sources) Tricyclic Antidepressant Start: 01-19-2021 take 100 mg by mouth once daily 100 mg, Oral, NIGHTLY, First dose on Fri01/19/21 at 2100 Start: 06-07-2020 take 2 capsules by m outh once daily nortriptyline (PAMELOR) 50 MG capsule Take 100 mg by mouth nightly 0 06/07/2020 Active Start: 06-18-2019 End: 11-16-2023 take 1 capsule by mouth once daily nortriptyline (PAMELOR) 50 MG capsule Take 50 mg by mouth daily . 0 06/18/2019 11/16/2023 Discontinued ondansetron (ZOFRAN-ODT) disintegrating tablet 4 mg (1 source) Start: 01-18-2021 ondansetron (ZOFRAN-ODT) disintegrating tablet 4 mg pantoprazole 40 mg delayed release oral tablet (20 sources) Proton Pump Inhibitor Start: 10-25-2020 End: 12-01-2024 take 1 tablet by mouth once daily pantoprazole (PROTONIX) 40 MG tablet Take 1 (one) tablet (40 mg total) by mouth daily . 10/25/2020 Active Start: 08-03-2020 End: 08-03-2020 pantoprazole (PROTONIX) tabl et 40 mg Comment on above: Take 40 mg by mouth once daily. perflutren lipid microspheres 1.3 mL in NaCl (PF) 0.9% 10 mL injection (DEFINITY) (7 sources) Start: 11-02-19 End: 01-31-20 24 perflutren lipid microspheres 1.3 mL in NaCl (PF) 0.9% 10 mL injection (DEFINITY) polysaccharide iron complex 150 mg oral capsule (11 sources) Start: 06-24-20 19 take 1 capsule by mouth once daily iron polysaccharide complex (FERREX 150) 150 mg iron capsule Take 1 capsule by mouth once daily. 30 capsule 06/24/2019 Active Comment on above: Take 1 capsule by mo [facility] once daily. rosuvastatin calcium 10 mg oral tablet (20 sources) HMG-CoA Reductase Inhibitor Start: 09-07-19 22 take 1 tablet by mouth once daily rosuvastatin (CRESTOR) 10 MG tablet Take 1 (one) tablet (10 mg total) by mouth daily . 09/07/2021 Active Start: 01-19-2021 take 10 mg by mouth once daily 10 mg, Oral, DAILY, First dose on 01/19/21 at 2100 Start: 08-02-2020 End: 08-03-2020 take 10 mg by mouth once daily 10 mg, Oral, NIGHTLY, F irst dose on [place] 08/03/20 at 2100 Start: 06-18-2019 take 2 tablets by mo uth once daily Rosuvastatin (Crestor) 5 mg tablet Active 10 mg PO DAILY June 18, 2019 12:00am cholesterol Complies with drug therapy Start: 01-07-2019 rosuvastatin ( CRESTOR) 5 mg tablet 5 mg once daily. 01/07/2019 Active Comment on above: 5 mg once daily. Take 10 mg by mouth once daily. sildenafil 20 mg oral tablet (20 sources) Phosphodiesterase 5 Inhibitor Start: 05-01-2021 Sildenafil (Pulm.Hypertension) 20 mg tablet Active 40 mg PO THREE TIMES A DAY May 01, 2021 12:00am pulmonary HTN Complies with drug therapy Start: 07-14-2020 take 1 tablet by marla th three times daily sildenafil, antihypertens, (REVATIO) 20 mg tablet Take 1 (one) tablet (20 mg total) by mouth 3 (three) times a day . 07/14/2020 Active Start: 06-18-2019 End: 05-01-2021 take 1 tablet by mouth three times daily Sildenafil 25 mg tablet Discontinued 25 mg PO THREE TIMES A DAY June 18, 2019 12:00am May 01, 2021 2:53pm htn Comment on above: Take 20 mg by mouth three times daily. Take 40 mg by mouth three times a day. 125 ml sodium chloride 9 mg/ml prefilled syringe (16 sources) Start: 11-01-2022 End: 01-31-2024 sodium chloride 0.9 % (flush) 10 mL (BD POSIFLUSH) Start: 01-19-2021 End: 01-19-2021 0.9 % sodium chloride bolus Start: 01-18-2021 take 1 dose intraven ously twice daily 5-40 mL, Intravenous, EVERY 12 HOURS SCHEDULED (2 times per day), First dose on [place] 01/18/21 at 2100 For Line Patency: Peripheral IV = 5 mL; Midline or Central Line = 10 mL/lumen. If following IV push medication, administer flush at same rate as the IV push. Flush volume is determined by type of infusion therapy being given. For non-viscous solutions use: Peripheral IV = 5 mL Midline or Central Line = 10 mL/lumen For viscous solutions (i.e. blood components, parenteral nutrition, contrast media, or after obtaining blood sample) use: Peripheral IV = 10 mL Midline or Central Line = 20 mL/lumen Start: 01-18-2021 take 5-40 mL intrave nously once as needed 5-40 mL, Intravenous, PRN, Line Care, After every IV line use, Starting on [place] 01/18/21 at 1634 For Line Patency: Peripheral IV = 5 mL; Midline or Central Line = 10 mL/lumen. If following IV push medication, administer flush at same rate as the IV push. Flush volume is determined by type of infusion therapy being given. For non-viscous solutions use: Peripheral IV = 5 mL Midline or Central Line = 10 mL/lumen For viscous solutions (i.e. blood components, parenteral nutrition, contrast media, or after obtaining blood sample) use: Peripheral IV = 10 mL Midline or Central Line = 20 mL/lumen Start: 01-18-2021 take 25 mL intraveno usly every hour as needed 25 mL, Intravenous, at 100 mL/hr, PRN, If patient receiving piggyback infusions without ordered maintenance IV fluids or with frequent/long duration piggyback infusions, Starting on [place] 01/18/21 at 1634 Administer at the same rate as the piggyback being infused. Start: 08-03-2020 10 mL, Intrave nous, EVERY 12 HOURS SCHEDULED (2 times per day), First dose on [place] 08/03/20 at 2100 Start: 08-03-2020 take 10 mL intraveno us route once as needed 10 mL, Intravenous, PRN, Line Care, After every IV line use, Starting [place] 08/03/20 at 1644 spironolactone 25 mg oral tablet (19 sources) Aldosterone Antagonist Start: 09-27-2024 End: 04-21-2025 Spironolactone 25 mg tablet Active 12.5 mg PO DAILY April 21, 2025 12:00am Complies with drug therapy Start: 01-19-2024 End: 09-27-2024 take 1 tablet by mouth once daily Spironolactone 25 mg tablet Discontinued 25 mg PO DAILY 30 30 January 19, 2024 3:53pm September 27, 2024 11:28am Hold if serum potassium more than 5.0. Start: 10-15-2023 take 0.5 tablet by m outh once daily spironolactone (ALDACTONE) 25 MG tablet Take 0.5 (one-half) tablet (12.5 mg total) by mouth daily . 10/15/2023 Active Start: 10-15-2023 End: 01-19-2024 Spironolactone 25 mg tablet Discontinued 12.5 mg PO DAILY 28 11October 15, 2023 1:00am January 19, 2024 4:07pm Hold if serum potassium more than 5.0. Start: 10-15-2023 take 12.5 mg by mout h once daily Spironolactone Active 12.5 MG PO DAILY October 15, 2023 1:00am Hold if serum potassium more than 5.0. Comment on above: Take 0.5 tablets by mouth once daily. thiamine hydrochloride 100 mg/ml injectable solution (14 sources) Start: 01-18-2021 100 mg, Intravenous, DAILY, First dose on [facility] 01/18/21 at 1700 Start: 08-04-2020 vitamin B-1 (T HIAMINE) tablet 100 mg Start: 08-03-2020 End: 08-03-2020 thiamine (B-1) injection 100 mg THIAMINE HCL ORA L Take by mouth. Active THIAMINE HCL ORA L Take by mouth. 0 Active Comment on above: Take by mouth. traZODone hydrochloride 100 mg oral tablet (20 sources) Serotonin Reuptake Inhibitor Start: End: take 1 tablet by mouth once daily at bedtime traZODone (DESYREL) 100 MG tablet Take 1 (one) tablet (100 mg total) by mouth every night at bedtime . 01/24/2022 Active Comment on above: Take 100 mg by mouth daily at bedtime. Completed/Discontinued Medications Medication Drug Class(es) Dates Sig (Normalized) Sig (Original) ALPRAZolam 0.25 mg disintegrating oral tablet (1 source) Benzodiazepine Start: 01-18-2021 End: 01-18-2021 ALPRAZolam (NIRAVAM) dissolvable tablet 0.25 mg amiodarone hydrochloride 200 mg oral tablet (20 sources) Antiarrhythmic Start: 06-11-2022 End: 06-11-2022 take 1 tablet by mouth once Amiodarone 200 mg tablet Discontinued 200 mg PO ONCE June 11, 2022 1:05pm June 11, 2022 9:04pm Start: 05-20-2022 End: 06-11-2022 take 1 tablet by mouth twice daily Amiodarone 200 mg Tablet Discontinued 200 mg PO TWICE A DAY 60 0 May 23, 2022 12:00am June 11, 2022 1:08pm Start: 12-30-2020 End: 01-05-2021 take 1 tablet by mouth twice daily Amiodarone 200 mg tablet Discontinued 200 mg PO TWICE A DAY 60 0 December 30, 2020 12:00am January 05, 2021 1:53pm amLODIPine 5 mg oral tablet (20 sources) Dihydropyridine Calcium Channel [place] Start: 09-11-2022 End: 06-26-2023 take 1 tablet by mouth once daily Amlodipine (Norvasc) 5 mg tablet Discontinued 5 mg PO DAILY 30 September 11, 2022 1:00am June 26, 2023 4:06pm pain amoxicillin 875 mg / clavulanate 125 mg oral tablet (11 sources) Penicillin-class Antibacterial Start: 06-26-2023 End: 08-29-2023 Amoxicillin-Pot Clavulanate 875-125 mg tablet Discontinued 1 {tbl} PO TWICE A DAY 10 5 0 June 26, 2023 12:00am August 29, 2023 2:34pm Start: 06-26-2023 End: 08-29-2023 take 1 tablet by mouth twice daily Amoxicillin-Pot Clavulanate Discontinued 1 TABLET PO TWICE A DAY 10 5 June 26, 2023 12:00am August 29, 2023 2:34pm ascorbic acid 500 mg oral tablet (8 sources) Vitamin C Start: 01-25-2017 End: 11-16-2023 ascorbic acid, vitamin C, (VITAMIN C) 500 mg tablet Take 500 mg by mouth. 0 01/25/2017 Active Comment on above: Take 500 mg by mouth . betamethasone 3 mg/ml / betamethasone acetate 3 mg/ml injectable suspension (1 source) Corticosteroid Start: 01-09-2023 End: 01-09-2023 betamethasone acetate-betamethasone sodium phosphate 6 mg injection (CELESTONE) Start: 01-09-2023 End: 01-09-2023 betamethasone acetate-betame thasone sodium phosphate 6 mg injection (CELESTONE) bumetanide 0.5 mg oral tablet (20 sources) Loop Diuretic Start: 06-18-2019 End: 05-01-2021 take 1 tablet by mouth once daily Bumetanide 0.5 mg tablet Discontinued 0.5 mg PO DAILY June 18, 2019 12:00am May 01, 2021 2:54pm On Hold: Pt. concerns with BP Start: 12-22-2018 bumetanide (BU MIRIAM) 1 mg tablet 1 mg once daily. 12/22/2018 Active Comment on above: 1 mg once daily. calcium ascorbate 50 mg / ferrous asparto glycinate 50 mg / polysaccharide iron complex 100 mg / succinic acid 50 mg oral capsule (2 sources) Start: 07-08-2018 Iron AspGl and PS Cm-Vit C-Ca-SA 150-50-50 mg cap Take 150 mg by mouth. 0 07/08/2018 Active Comment on above: Take 150 mg by mouth . calcium chloride 0.0014 meq/ml / potassium chloride 0.004 meq/ml / sodium chloride 0.103 meq/ml / sodium lactate 0.028 meq/ml injectable solution (3 sources) Start: 01-18-2021 End: 01-19-2021 Intravenous, at 125 mL/hr, CONTINUOUS, Starting on Fri01/18/21 at 1700 Start: 01-18-2021 End: 01-18-2021 lactated ringers infusion Start: 08-03-2020 End: 08-03-2020 lactated ringers infusion cefuroxime 500 mg oral tablet (12 sources) Cephalosporin Antibacterial Start: 06-13-2023 End: 06-24-2023 take 1 tablet by mouth twice daily Cefuroxime Axetil 500 mg tablet Discontinued 500 mg PO TWICE A DAY June 13, 2023 12:00am June 24, 2023 9:59pm celecoxib 100 mg oral capsule (20 sources) Nonsteroidal Anti-inflammatory Drug Start: 07-18-2022 End: 06-26-2023 take 1 capsule by mouth once daily Celecoxib (Celebrex) 100 mg capsule Discontinued 100 mg PO DAILY July 18, 2022 1:00am June 26, 2023 4:06pm pain On Hold: MANJINDER Start: 01-18-2021 End: 01-18-2021 celecoxib (CELEBREX) capsule 400 mg cholecalciferol 0.125 mg oral capsule (20 sources) Vitamin D Start: 07-02-2022 take 1 capsule by mouth twice daily Cholecalciferol, Vitamin D3, (D3-5000) 125 mcg (5,000 unit) cap Take 1 capsule by mouth two times a day. 0 07/02/2022 Active Start: 08-01-2020 take 400 [IU] by [facility] once daily Cholecalciferol (Vitamin D3) Active 400 UNIT PO DAILY August 01, 2020 8:16pm Start: 08-01-2020 Cholecalcifero l (Vitamin D3) 10 MCG capsule Active 4000 U PO DAILY August 01, 2020 1:00am supplement Complies with drug therapy Start: 08-01-2020 take 4000 [IU] by [facility] once daily Cholecalciferol (Vitamin D3) Active 4000 UNIT PO DAILY August 01, 2020 1:00am Start: 06-11-2020 take 2 tablets by [facility] once daily vitamin D (CHOLECALCIFEROL) 50 MCG (2000 UT) TABS tablet TAKE 2 TABLETS BY MOUTH DAILY 0 06/11/2020 Active take 2 capsules by [facility] once daily cholecalciferol, vitamin D3, 50 mcg (2,000 unit) cap Take 2 (two) capsules by mouth daily . Active take 4000 [IU] by [facility] once daily Cholecalciferol (VITAMIN D3 PO) Take 4,000 Units by mouth daily 0 Active take 4000 [IU] by [facility] once daily Cholecalciferol (VITAMIN D3 PO) Take 4,000 Units by mouth daily 0 Active Comment on above: Take 2 capsules by out once daily. Take 1 capsule by [facility] two times a day. cyclobenzaprine hydrochloride 5 mg oral tablet (20 sources) Muscle Relaxant Start: 019 End: 024 take 1 tablet by mouth three times daily cyclobenzaprine (FLEXERIL) 5 MG tablet Take 5 mg by mouth 3 (three) times a day . 0 09/30/2021 11/16/2023 Discontinued Comment on above: Take 5 mg by mouth t hree times daily as needed. diatrizoate meglumine-sodium (GASTROGRAFIN) 66-10 % solution 30 mL (1 source) Start: End: diatrizoate meglumine-sodium (GASTROGRAFIN) 66-10 % solution 30 mL dicyclomine hydrochloride 20 mg oral tablet (20 sources) Anticholinergic Start: End: take 1 tablet by mouth three times daily Dicyclomine 20 mg tablet Discontinued 20 mg PO THREE TIMES A DAY 90 October 25, 2021 1:00am December 31, 2021 2:16pm Start: 10-10-2021 End: 10-25-2021 take 2 capsules by mouth every four to six hours as needed Dicyclomine 10 MG capsule Discontinued 20 mg PO .q4-6h as needed for abdominal discomfort 20 0 October 10, 2021 9:29pm October 25, 2021 4:05pm Start: 10-10-2021 End: 10-25-2021 take 20 mg by mouth every four to six hours Dicyclomine Discontinued 20 MG PO .q4-6h October 10, 2021 9:29pm October 25, 2021 4:05pm empagliflozin 10 mg oral tablet (20 sources) Sodium-Glucose Cotransporter 2 Inhibitor Start: 07-18-2022 End: 01-14-2024 take 1 tablet by mouth once daily Empagliflozin (Jardiance) 10 mg tablet Discontinued 10 mg PO DAILY 90 January 12, 2024 4:25pm January 14, 2024 10:19am Comment on above: Take 10 mg by mouth once daily. esomeprazole 40 mg delayed release oral capsule (20 sources) Proton Pump Inhibitor Start: 01-03-2015 End: 07-30-2021 take 1 capsule by mouth once daily Esomeprazole Magnesium 40 MG capsule Discontinued 40 mg PO DAILY August 01, 2020 1:00am July 30, 2021 2:29pm gerd Start: 11-09-2013 End: 07-06-2018 take 2 capsules by mouth once daily Esomeprazole Magnesium (Nexium) 20 MG capsule Discontinued 40 mg PO DAILY 30 0 November 09, 2013 11:30am July 06, 2018 3:28pm Start: 2013 End: 11-09-2013 take 1 capsule by mouth once daily Esomeprazole Magnesium (Nexium) 20 MG capsule Discontinued 20 mg PO DAILY 2013 12:00am November 09, 2013 11:31am take 40 mg by mouth once daily E someprazole Magnesium (NEXIUM PO) Take 40 mg by mouth daily 0 Active Comment on above: Take 1 capsule by [facility] daily before breakfast. etodolac 500 mg oral tablet (20 sources) Nonsteroidal Anti-inflammatory Drug Start : 11-08 End: 11-09 take 1 tablet by mouth twice daily Etodolac 500 MG tablet Discontinued 500 mg PO TWICE A DAY 2013 12:00am November 09, 2013 11:27am famotidine 20 mg oral tablet (1 source) Histamine-2 Receptor Antagonist Start : 01-18 End: 01-18 famotidine (PEPCID) tablet 20 mg 2 ml fentaNYL 0.05 mg/ml injection (1 source) Opioid Agonist Start : 08-03 End: 08-03 fentaNYL (SUBLIMAZE) injection 50 mcg gabapentin 100 mg oral capsule (1 source) Anti-epileptic Agent Start : 01-18 End: 01-18 gabapentin (NEURONTIN) capsule 100 mg 1 ml heparin sodium, porcine 5000 unt/ml prefilled syringe (1 source) Unfractionated Heparin, Anti-coagulant Start : 01-18 End: 01-18 heparin (porcine) injection 5,000 Units 1 ml hydrALAZINE hydrochloride 20 mg/ml injection (1 source) Arteriolar Vasodilator Start : 08-03 End: 08-03 hydrALAZINE (APRESOLINE) injection 10 mg hydroCHLOROthiazide 25 mg oral tablet (20 sources) Thiazide Diuretic Start : 07-29 End: 06-18 take 1 tablet by mouth once daily Hydrochlorothiazide 25 mg tablet Discontinued 25 mg PO DAILY 90 July 29, 2018 1:00am June 18, 2019 9:27am hydroCHLOROthiazide 12.5 mg / lisinopril 10 mg oral tablet (20 sources) Thiazide Diuretic, Angiotensin Converting Enzyme Inhibitor Start : 12-30 End: 05-01 Lisinopril-Hydrochloroth iazide 10-12.5 mg tablet Discontinued 1 {tbl} PO DAILY 30 January 30, 2021 4:44pm May 01, 2021 2:54pm Start: 12-30-2020 End: 05-01-2021 take 1 tablet by mouth once daily Lisinopril-Hydrochlorothiazide Discontin ued 1 TABLET PO DAILY January 30, 2021 4:44pm May 01, 2021 2:54pm hydroCHLOROthiazide 12.5 mg / losartan potassium 50 mg oral tablet (20 sources) Thiazide Diuretic, Angiotensin 2 Receptor [place] Start: 05-22-2022 End: 06-11-2022 take 1 tablet by mouth once daily Losartan-Hydrochlorothiazide Discontinued 1 TABLET PO DAILY May 22, 2022 12:00am June 11, 2022 1:33pm Start: 05-01-2021 End: 11-16-2023 Losartan-Hydrochlorothiazide 50-12.5 mg tablet Discontinued 1 {tbl} PO DAILY May 22, 2022 12:00am June 11, 2022 1:33pm bp On Hold: Until evaluated by cardiology Start: 05-01-2021 End: 05-20-2022 take 1 tablet by mouth once daily Losartan-Hydrochlorothiazide Discontinue d 1 TABLET PO DAILY May 01, 2021 12:00am May 20, 2022 12:16pm hydroCHLOROthiazide 25 mg / spironolactone 25 mg oral tablet (6 sources) Thiazide Diuretic, Aldosterone Antagonist Start: 10-15-2023 End: 10-15-2023 take 1 tablet by mouth once daily Spironolacton-Hydrochlorothiaz 25-25 mg tablet Discontinued 0.5 {tbl} PO DAILY October 15, 2023 1:00am October 15, 2023 5:09pm Hold if serum potassium more than 5.0. Start: 10-15-2023 End: 10-15-2023 take 0.5 tablet by mouth once daily Spironolacton-Hydrochlorothiaz Discontin ued 0.5 TABLET PO DAILY October 15, 2023 1:00am October 15, 2023 5:09pm Hold if serum potassium more than 5.0. 1 ml HYDROmorphone hydrochloride 1 mg/ml cartridge (3 sources) Opioid Agonist Start: 01-18-2021 End: 01-18-2021 HYDROmorphone (DILAUDID) injection 0.5 mg Start: 08-03-2020 End: 08-03-2020 HYDROmorphone (DILAUDID) inj ection 0.5 mg Start: 08-03-2020 End: 08-03-2020 HYDROmorphone (DILAUDID) 1 M G/ML injection levothyroxine sodium 0.025 mg oral tablet (20 sources) l-Thyroxine Start: 07-04-2020 End: 11-16-2023 take 1 tablet by mouth once daily levothyroxine (SYNTHROID, LEVOTHROID) 25 MCG tablet Take 25 mcg by mouth daily . 0 07/04/2020 11/16/2023 Discontinued 10 ml lidocaine hydrochloride 10 mg/ml injection (1 source) Antiarrhythmic, Amide Local Anesthetic Start: 01-09-2023 End: 01-09-2023 lidocaine (PF) 10 mg/mL (1 %) 4 mL injection (XYLOCAINE) Start: 01-09-2023 End: 01-09-2023 lidocaine (PF) 10 mg/mL (1 % ) 4 mL injection (XYLOCAINE) lisinopril 20 mg oral tablet (20 sources) Angiotensin Converting Enzyme Inhibitor Start: 07-29-2018 End: 06-18-2019 take 1 tablet by mouth once daily Lisinopril 20 mg tablet Discontinued 20 mg PO DAILY July 29, 2018 1:00am June 18, 2019 9:27am 50 ml magnesium sulfate 40 mg/ml injection (3 sources) Start: 01-19-2021 End: 01-19-2021 magnesium sulfate 2000 mg in 50 mL IVPB premix Start: 08-03-2020 End: 08-04-2020 magnesium sulfate 2 g in 50 mL IVPB premix metoprolol tartrate 25 mg oral tablet (20 sources) beta-Adrenergic [place] Start: 10-23-2022 End: 04-20-2025 take 1 tablet by mouth every twelve hours Metoprolol Tartrate 25 mg tablet Discontinued 25 mg PO EVERY 12 HOURS 180 3 January 14, 2024 10:20am September 27, 2024 11:28am high blood pressure Start: 07-18-2022 End: 10-23-2022 Metoprolol Tartrate 50 mg ta blet Discontinued 25 mg PO EVERY 12 HOURS 60 0 July 18, 2022 10:05am October 23, 2022 3:58pm Start: 07-18-2022 End: 10-23-2022 take 25 mg by mouth every twelve hours Metoprolol Tartrate Discontinued 25 MG PO EVERY 12 HOURS 60 July 18, 2022 10:05am October 23, 2022 3:58pm Start: 06-21-2022 End: 07-18-2022 take 1 tablet by mouth every twelve hours Metoprolol Tartrate 50 mg tablet Discontinued 50 mg PO EVERY 12 HOURS 60 0 June 21, 2022 12:00pm July 18, 2022 10:05am Start: 05-23-2022 End: 06-21-2022 take 1 tablet by mouth every twelve hours Metoprolol Tartrate 100 mg Tablet Discontinued 100 mg PO EVERY 12 HOURS 60 0 May 23, 2022 12:00am June 21, 2022 12:01pm Start: 05-20-2022 End: 06-11-2022 take 1 tablet by mouth every twelve hours Metoprolol Tartrate 50 mg tablet Discontinued 50 mg PO Q12H 60 May 20, 2022 1:52pm June 11, 2022 1:07pm Start: 05-20-2022 End: 05-20-2022 take 1 tablet by mouth every twelve hours Metoprolol Tartrate 100 mg tablet Discontinued 100 mg PO Q12H 60 0 May 20, 2022 12:00am May 20, 2022 1:55pm Start: 01-18-2021 End: 01-19-2021 5 mg, Intravenous, EVERY 6 H OURS, First dose on Fri01/18/21 at 1700 Hold for HR < 70 Start: 12-30-2020 End: 05-20-2022 take 1 tablet by mouth twice daily Metoprolol Tartrate 25 mg tablet Discontinued 25 mg PO TWICE A DAY 60 0 December 30, 2020 12:00am May 20, 2022 12:16pm Start: 08-03-2020 End: 08-04-2020 take 50 mg by mouth once daily 50 mg, Oral, DAILY, [facility] dose on [place] 08/03/20 at 1700 Start: 08-02-2020 End: 08-02-2020 metoprolol (LOPRESSOR) injec tion 5 mg Start: 06-18-2019 End: 12-30-2020 take 1 tablet by mouth once daily Metoprolol Tartrate 50 mg tablet Discontinued 50 mg PO DAILY June 18, 2019 12:00am December 30, 2020 10:56am Start: 01-07-2019 take 1 tablet by marla th once daily metoprolol succinate (TOPROL-XL) 50 MG 24 hr tablet Take 1 (one) tablet (50 mg total) by mouth daily . 01/07/2019 Active Start: 01-07-2019 take 1 tablet by marla th twice daily metoprolol succinate ER (TOPROL XL) 50 mg 24 hr tablet Take 50 mg by mouth two times a day. 0 01/07/2019 Active Comment on above: 50 mg once daily. ta kes 25 mg daily Take 50 mg by mouth two times a day. Multivitamin Tablet (4 sources) Start: 12-28-2020 End: 06-24-2023 Multivitamin Tablet Discontinued 1 {tbl} PO DAILY December 28, 2020 12:00am June 24, 2023 10:06pm DAILY Start: 12-28-2020 End: 06-24-2023 Multivitamin Tablet Disconti nued 1 {tbl} PO DAILY December 28, 2020 12:00am June 24, 2023 10:06pm ondansetron 4 mg oral tablet (5 sources) Serotonin-3 Receptor Antagonist Start: 08-03-2020 ondansetron (ZOFRAN) 4 mg tablet Take 4 mg by mouth as needed. 0 08/03/2020 Active Comment on above: Take 4 mg by mouth a s needed. oxyCODONE hydrochloride 5 mg oral tablet (19 sources) Opioid Agonist Start: 09-28-2022 End: 06-24-2023 take 1 tablet by mouth every eight hours as needed for pain Oxycodone 5 mg tablet Discontinued 5 mg PO Q8H as needed for pain 10 3 0 September 28, 2022 June 24, 2023 10:06pm Arthralgia Pain in unspecified joint Start: 08-03-2020 oxyCODONE (LAURA ICODONE) immediate release tablet 5 mg predniSONE 20 mg oral tablet (20 sources) Start: 06-26-2023 End: 10-15-2023 Prednisone 20 mg Tablet Discontinued 0 mg PO WITH BREAKFAST Taper: Frequency: BREAKFAST Days: 3 Hours: 0 Dose: 60 Frequency: BREAKFAST Days: 3 Hours: 0 Dose: 50 Frequency: BREAKFAST Days: 3 Hours: 0 Dose: 40 Frequency: BREAKFAST Days: 3 Hours: 0 Dose: 30 Frequency: BREAKFAST Days: 3 Hours: 0 Dose: 20 Frequency: BREAKFAST Days: 3 Hours: 0 Dose: 10 32 0 June 26, 2023 12:00am October 15, 2023 3:57pm Please contact the information source for Taper Schedule details. Start: 06-26-2023 End: 10-15-2023 Prednisone 20 mg Tablet Disc ontinued 0 mg PO WITH BREAKFAST June 26, 2023 12:00am October 15, 2023 3:57pm Please contact the information source for Taper Schedule details. Start: 06-26-2023 End: 10-15-2023 Prednisone Discontinued 0 MG PO WITH BREAKFAST June 26, 2023 12:00am October 15, 2023 3:57pm Start: 09-28-2022 End: 10-23-2022 take 4 tablets by mouth once daily, then take 3 tablets by mouth once daily, then take 2 tablets by mouth once daily, then take 1 tablet by mouth once daily, then take 1 tablet by mouth every other day Prednisone 10 mg tablet Discontinued 10 mg PO DIRECTED 33 September 28, 2022 1:00am October 23, 2022 3:57pm Take 4 tablets daily for 3 days, then 3 daily for 3 days, then 2 daily for 3 days, then 1 a day for 3 days then 1 QOD for 3 doses. rivaroxaban 15 mg oral tablet (20 sources) Factor Xa Inhibitor Start: 04-28-2016 End: 01-25-2017 take 1 tablet by mouth once daily Rivaroxaban (Xarelto) 15 MG tablet Discontinued 15 mg PO DAILY January 24, 2017 6:23pm January 25, 2017 4:15pm Start: 04-26-2016 End: 04-28-2016 take 1 tablet by mouth once daily Rivaroxaban (Xarelto) 20 MG tablet Discontinued 20 mg PO DAILY April 26, 2016 12:00am April 28, 2016 10:16am 10 actuat tiotropium 0.0025 mg/actuat inhalation spray (17 sources) Anticholinergic Start: 09-30-2021 End: 11-16-2023 Spiriva Respimat 2.5 mcg/actuation Mist Inhale 2 (two) times a day . 0 09/30/2021 11/16/2023 Discontinued Start: 07-30-2021 take 1 puff(s) by in halation once daily Tiotropium [place] (Spiriva Respimat) 2.5 mcg/actuation mist Active 2 PUFF INHALATION DAILY July 30, 2021 2:29pm take 2 puff(s) by in halation once daily tiotropium bromide (SPIRIVA RESPIMAT) 2.5 mcg/actuation inhaler Inhale 2 Puffs as instructed once daily. Active Comment on above: Inhale 2 Puffs as in structed once daily. ursodiol 300 mg oral capsule (20 sources) Bile Acid Start: 2 End: 5 take 1 capsule by mouth twice daily Ursodiol 300 mg capsule Discontinued 300 mg PO TWICE A DAY 180 3 March 07, 2023 1:45pm January 19, 2024 4:07pm heart Comment on above: Take 300 mg by mouth two times a day. vitamin b12 1 mg oral tablet (2 sources) Vitamin B12 Start: 3 cyanocobalamin (VITAMIN B-12) 1,000 mcg tab vitamin e 180 mg oral capsule (17 sources) Start: 5 End: 5 take 1 capsule by mouth once daily Vitamin E (Dl, Acetate) 180 mg (400 unit) capsule Discontinued 180 mg PO DAILY September 27, 2024 1:00am September 29, 2024 4:12pm Start: 06-24-2023 End: 09-27-2024 Vitamin E Mixed 1,000 unit c apsule Discontinued 400 U PO DAILY June 24, 2023 12:00am September 27, 2024 11:26am general health Start: 06-24-2023 [facility] 400 [facility] Vitamin E Mixed Active 400 UNIT PO DAILY June 24, 2023 12:00am Start: 01-21-2022 take 1 capsule by [facility] once daily Vitamin E, dl, acetate, (VITAMIN E) 400 unit capsule Take 1 capsule by mouth once daily. 0 01/21/2022 Active Comment on above: Take 1 capsule by [facility] once daily. warfarin sodium 4 mg oral tablet (8 sources) Vitamin K Antagonist Start: 04-22-2024 End: 12-02-2024 take 1 tablet by mouth once daily in the evening Warfarin 4 mg tablet Discontinued 4 mg PO EVERY EVENING Protocol: Adjustment Start Date: Friday10/18/24INR Value: 2.0INR Date: 10/18/24Recheck Date: 11/01/24 Condition: Friday Dose/Route: 4 mg Instructions: 1 x 4 mg tablet Condition: Friday Dose/Route: 4 mg Instructions: 1 x 4 mg tablet Condition: Friday Dose/Route: 4 mg Instructions: 1 x 4 mg tablet Condition: Friday Dose/Route: 4 mg Instructions: 1 x 4 mg tablet Condition: Dose/Route: 4 mg Instructions: 1 x 4 mg tablet Condition: Friday Dose/Route: 4 mg Instructions: 1 x 4 mg tablet Condition: Friday Dose/Route: 4 mg Instructions: 1 x 4 mg tablet September 27, 2024 1:00am December 02, 2024 7:21am Please contact the information source for Protocol details. Problems Active Problems Problem Classification Problem Date Documented Da te Episodic/Chronic Abdominal hernia (20 sources) Hiatal hernia; Translations: [Irreducible hernia of anterior abdominal wall] Onset: 9 Resolved: 0 08-02-2020 Episodic Abdominal pain (20 sources) Intractable abdominal pain; Translations: [Unspecified abdominal pain] Onset: 0 08-02-2020 Episodic Abdominal pain (3 sources) Intractable abdominal pain; Translations: [Intractable abdominal pain] Onset: 0 08-02-2020 Acute and unspecified renal failure (20 sources) Injury of kidney; Translations: [Acute kidney failure, unspecified] 10-18-2021 Episodic Alcohol-related disorders (20 sources) Alcohol abuse; Translations: [Alcohol abuse, uncomplicated] Onset: 0 08-02-2020 Chronic Anxiety disorders (20 sources) Panic attack; Translations: [Panic disorder [episodic paroxysmal anxiety]] Chronic Cardiac and circulatory congenital anomalies (20 sources) Patent foramen ovale; Translations: [Patent foramen ovale] Chronic Cardiac dysrhythmias (20 sources) Atrial flutter; Translations: [Unspecified atrial flutter] Onset: 4 Chronic Chronic kidney disease (20 sources) Chronic kidney disease; Translations: [Chronic kidney disease, unspecified] Chronic Chronic obstructive pulmonary disease and bronchiectasis (20 sources) Chronic obstructive lung disease; Translations: [Chronic obstructive pulmonary disease, unspecified] 02-14-2022 Chronic Comment on above: INHALERS Coagulation and hemorrhagic disorders (10 sources) Antiphospholipid syndrome; Translations: [Antiphospholipid syndrome] Onset: 5 Chronic Congestive heart failure; nonhypertensive (20 sources) Heart failure with normal ejection fraction; Translations: [Unspecified diastolic (congestive) heart failure] Onset: 5 Chronic Deficiency and other anemia (20 sources) Anemia; Translations: [Anemia, unspecified] Onset: 5 10-10-2021 Episodic Disorders of lipid metabolism (20 sources) Hyperlipidemia; Translations: [Hyperlipidemia, unspecified] Onset: 4 08-02-2020 Chronic Esophageal disorders (20 sources) Gastroesophageal reflux disease; Translations: [Gastro-esophageal reflux disease without esophagitis] Onset: 5 Resolved: 5 Chronic Essential hypertension (20 sources) Hypertensive disorder; Translations: [Essential (primary) hypertension] Onset: 4 08-02-2020 Chronic Headache; including migraine (11 sources) Migraine with aura; Translations: [Migraine with aura] 05-29-2005 Chronic Hypertension with complications and secondary hypertension (1 source) Hypertensive heart and chronic kidney disease with heart failure and stage 1 through stage 4 chronic kidney disease, or unspecified chronic kidney disease; Translations: [Hypertensive heart and chronic kidney disease with heart failure and stage 1 through stage 4 chronic kidney disease, or unspecified chronic kidney disease] Onset: 5 Chronic Joint disorders and dislocations; trauma-related (20 sources) Patellofemoral stress syndrome; Translations: [Patellofemoral disorders, right knee] 10-10-2021 Chronic Mood disorders (20 sources) Depressive disorder; Translations: [Depression] 10-10-2021 Chronic Nonspecific chest pain (20 sources) Chest pain; Translations: [Chest pain, unspecified] Episodic Nutritional deficiencies (20 sources) Iron deficiency; Translations: [Iron deficiency] 10-10-2021 Episodic Open wounds of extremities (20 sources) Laceration of finger; Translations: [Laceration without foreign body of unspecified finger without damage to nail, initial encounter] 04-28-2022 Episodic Other aftercare (2 sources) Taking high risk medication; Translations: [Other group home (current) drug therapy] 11-16-2023 Episodic Other aftercare (6 sources) Long-term current use of anticoagulant; 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] 04-22-2024 Episodic Other and unspecified benign neoplasm (20 sources) Tubular adenoma of colon; Translations: [Benign neoplasm of colon, unspecified] 05-23-2022 Episodic Other and unspecified benign neoplasm (7 sources) Benign neoplasm of colon, unspecified; Translations: [Benign neoplasm of colon] Episodic Other bone disease and musculoskeletal deformities (13 sources) Degenerative joint disease involving multiple joints; Translations: [Other hypertrophic osteoarthropathy, multiple sites] Onset: Chronic Other connective tissue disease (20 sources) Foot pain; Translations: [Pain in unspecified foot] 02-14-2022 Episodic Other connective tissue disease (5 sources) Pain in unspecified foot; Translations: [Pain in limb] Episodic Other diseases of veins and lymphatics (8 sources) Lymphedema; Translations: [Lymphedema, not elsewhere classified] 11-05-2024 Chronic Other diseases of veins and lymphatics (20 sources) Vascular insufficiency; Translations: [Venous insufficiency (chronic) (peripheral)] 02-14-2022 Episodic Other diseases of veins and lymphatics (2 sources) Venous insufficiency (chronic) (peripheral); Translations: [Venous (peripheral) insufficiency, unspecified] Episodic Other diseases of veins and lymphatics (8 sources) Peripheral venous insufficiency; Translations: [Venous insufficiency (chronic) (peripheral)] 11-05-2024 Episodic Other gastrointestinal disorders (1 source) Irritable bowel syndrome without diarrhea; Translations: [Irritable bowel syndrome, unspecified] Onset: Chronic Other gastrointestinal disorders (11 sources) Heartburn; Translations: [Heartburn] 08-27-2021 Episodic Other gastrointestinal disorders (6 sources) Diarrhea; Translations: [Diarrhea, unspecified] 09-27-2024 Episodic Other gastrointestinal disorders (4 sources) Mucus in stool; Translations: [Other fecal abnormalities] 05-26-2024 Episodic Other hereditary and degenerative nervous system conditions (11 sources) Restless legs; Translations: [Restless legs syndrome] Onset: 1 03-20-2011 Chronic Other injuries and conditions due to external causes (1 source) Injury of right hand; Translations: [Unspecified injury of right wrist, hand and finger(s), initial encounter] 09-26-2021 Episodic Other injuries and conditions due to external causes (1 source) Injury of left hand; Translations: [Unspecified injury of left wrist, hand and finger(s), initial encounter] 02-23-2021 Episodic Other liver diseases (20 sources) Steatosis of liver; Translations: [Fatty (change of) liver, not elsewhere classified] Onset: 1 01-24-2022 Chronic Other liver diseases (20 sources) Fatty (change of) liver, not elsewhere classified; Translations: [Other chronic nonalcoholic liver disease] Onset: Chronic Other liver diseases (20 sources) Hepatic fibrosis; Translations: [Hepatic fibrosis] Chronic Other liver diseases (20 sources) Raised cardiac enzyme or marker; Translations: [Abnormal levels of other serum enzymes] 10-10-2021 Episodic Other liver diseases (20 sources) Alkaline phosphatase raised; Translations: [Abnormal levels of other serum enzymes] 02-04-2022 Episodic Other lower respiratory disease (20 sources) Peripheral cyanosis; Translations: [Cyanosis] 02-14-2022 Episodic Other lower respiratory disease (5 sources) Cyanosis; Translations: [Cyanosis] Episodic Other lower respiratory disease (20 sources) Dyspnea; Translations: [Dyspnea, unspecified] 05-28-2022 Episodic Other lower respiratory disease (9 sources) Dyspnea, unspecified; Translations: [Other respiratory abnormalities] Episodic Other lower respiratory disease (12 sources) Hypoxemia; Translations: [Hypoxemia] 06-24-2023 Episodic Other lower respiratory disease (6 sources) Hypoxemia; Translations: [Hypoxemia] 06-24-2023 Episodic Other nervous system disorders (11 sources) Ulnar nerve entrapment; Translations: [Lesion of ulnar nerve, unspecified upper limb] Onset: 2 02-11-2012 Chronic Other non-traumatic joint disorders (20 sources) Pain in right knee; Translations: [Pain in both knees] 10-10-2021 Episodic Other non-traumatic joint disorders (18 sources) Joint pain; Translations: [Pain in unspecified joint] 09-28-2022 Episodic Other non-traumatic joint disorders (1 source) Chronic pain of left upper limb; Translations: [Pain in left shoulder] Episodic Other non-traumatic joint disorders (1 source) Disorder of shoulder; Translations: [Other specified joint disorders, unspecified shoulder] Episodic Other non-traumatic joint disorders (5 sources) Pain in left shoulder; Translations: [Pain in joint, shoulder region] 01-09-2023 Episodic Other nutritional; endocrine; and metabolic disorders (20 sources) Hypomagnesemia; Translations: [Hypomagnesemia] Onset: 0 08-03-2020 Chronic Other nutritional; endocrine; and metabolic disorders (20 sources) Body mass index 40+ - severely obese; Translations: [Morbid (severe) obesity due to excess calories] Onset: 4 07-29-2018 Chronic Other nutritional; endocrine; and metabolic disorders (14 sources) Morbid (severe) obesity due to excess calories; Translations: [Morbid obesity] Chronic Other screening for suspected conditions (not mental disorders or infectious disease) (1 source) Decreased vitamin D; Translations: [Other specified abnormal findings of blood chemistry] Episodic Other upper respiratory disease (20 sources) Allergic rhinitis; Translations: [Allergic rhinitis, unspecified] 10-10-2021 Chronic Other upper respiratory disease (11 sources) Allergic disorder of respiratory system; Translations: [Allergic rhinitis, unspecified] Onset: 5 09-28-2014 Chronic Swathi-; endo-; and myocarditis; cardiomyopathy (except that caused by tuberculosis or sexually transmitted disease) (20 sources) Cardiomyopathy; Translations: [Other cardiomyopathies] Onset: 5 Chronic Swathi-; endo-; and myocarditis; cardiomyopathy (except that caused by tuberculosis or sexually transmitted disease) (17 sources) Chest pain due to pericarditis; Translations: [Disease of pericardium, unspecified] 10-10-2022 Episodic Phlebitis; thrombophlebitis and thromboembolism (20 sources) Deep venous thrombosis; Translations: [Acute embolism and thrombosis of unspecified deep veins of unspecified lower extremity] 12-31-2021 Episodic Comment on above: MANY YRS AGO Pneumonia (except that caused by tuberculosis or sexually transmitted disease) (18 sources) Atypical pneumonia; Translations: [Pneumonia, unspecified organism] 06-24-2023 Episodic Pulmonary heart disease (20 sources) Pulmonary arterial hypertension; Translations: [Secondary pulmonary arterial hypertension] Onset: 6 Chronic Residual codes; unclassified (20 sources) Obstructive sleep apnea syndrome; Translations: [Obstructive sleep apnea (adult) (pediatric)] Onset: 1 08-02-2020 Chronic Residual codes; unclassified (20 sources) Tobacco user; Translations: [Tobacco use] 10-10-2021 Episodic Residual codes; unclassified (3 sources) Current drinker; Translations: [Other problems related to lifestyle] Episodic Residual codes; unclassified (3 sources) Other problems related to lifestyle; Translations: [Other specified conditions influencing health status] Episodic Respiratory failure; insufficiency; arrest (adult) (20 sources) Acute respiratory failure; Translations: [Acute respiratory failure with hypoxia] 09-19-2022 Episodic Respiratory failure; insufficiency; arrest (adult) (3 sources) Respiratory failure; insufficiency; arrest (adult) Spondylosis; intervertebral disc disorders; other back problems (11 sources) Degeneration of lumbar intervertebral disc; Translations: [Other intervertebral disc degeneration, lumbar region] 05-14-2010 Chronic Sprains and strains (14 sources) Injury of abdominal wall; Translations: [Strain of muscle, fascia and tendon of abdomen, initial encounter] 11-17-2022 Episodic Substance-related disorders (11 sources) Tobacco user; Translations: [Nicotine dependence, unspecified, uncomplicated] 08-27-2021 Chronic Superficial injury; contusion (20 sources) Hematoma of scalp; Translations: [Contusion of scalp, initial encounter] 09-23-2019 Episodic Syncope (20 sources) Near syncope; Translations: [Syncope and collapse] Episodic Past or Other Problems Problem Classification Problem Date Documented Da te Episodic/Chronic Biliary tract disease (3 sources) Cholecystitis; Translations: [Cholecystitis, unspecified] Resolved: 08-16-2020 08-16-2020 Episodic Deficiency and other anemia (11 sources) Iron deficiency anemia secondary to inadequate dietary iron intake; Translations: [Other iron deficiency anemias] Onset: 06-25-2019 06-25-2019 Episodic Diabetes mellitus without complication (11 sources) Impaired fasting glycemia; Translations: [Impaired fasting glucose] Onset: 11-29-2009 11-29-2009 Episodic Immunizations and screening for infectious disease (9 sources) Antibody studies abnormal; Translations: [Raised antibody titer] Onset: 11-13-2023 05-21-2023 Episodic Other aftercare (1 source) snf (current) use of anticoagulants; Translations: [snf (current) use of anticoagulants] Onset: 10-11-2024 Episodic Other connective tissue disease (20 sources) Calcific tendinitis of shoulder; Translations: [Calcific tendinitis of unspecified shoulder] Onset: 05-18-2010 05-18-2010 Episodic Other connective tissue disease (11 sources) Impingement syndrome of shoulder region; Translations: [Impingement syndrome of unspecified shoulder] Onset: 05-18-2010 05-18-2010 Episodic Other gastrointestinal disorders (1 source) Diarrhea, unspecified; Translations: [Diarrhea, unspecified] Onset: 09-27-2024 Episodic Other gastrointestinal disorders (1 source) Other fecal abnormalities; Translations: [Other fecal abnormalities] Onset: 11-12-2024 Episodic Other lower respiratory disease (1 source) Shortness of breath; Translations: [Shortness of breath] Onset: 07-20-2024 Episodic Other non-traumatic joint disorders (12 sources) Shoulder pain; Translations: [Pain in unspecified shoulder] Onset: 06-21-2011 06-21-2011 Episodic Other upper respiratory disease (11 sources) Deviated nasal septum; Translations: [Deviated nasal septum] Onset: 03-20-2011 03-20-2011 Episodic Pulmonary heart disease (20 sources) Pulmonary embolism; Translations: [Other pulmonary embolism without acute cor pulmonale] Onset: 04-26-2016 10-10-2021 Episodic Residual codes; unclassified (1 source) Edema, unspecified; Translations: [Edema, unspecified] Onset: 09-08-2024 Episodic Results Test Name Value Interpretation Reference Range Facility Cardiology Visit Reporton Cardiology Visit Report [facility] [address] [place] [address] OFFICE VISIT Date of Service: 05/20/25 MR#: [id number] Acct: [id number] Name: DEE SHEPHERD Rep #: [id number] 7 : 1970 Provider: SAEID Begum Age/Sex: 54/F Location[place] [facility] [place] Status: Signed HPI HPI History of Present Illness Details: DEE SHEPHERD, is a 53 F that presents here today for a cardiovascular follow-up. She has a history of paroxysmal atrial fibrillation, severe pulmonary hypertension, hypertension, previous pulmonary embolism in 2015, tobacco abuse, anemia and obesity. She did have her large hiatal hernia repair done in December of 2020. She presented to [facility] on 05/16/2022 for palpitations, chest heaviness. She was noted to be in atrial fibrillation with RVR. During that hospitalization it was noted that she had resumed EtOH use and had not been compliant with her medications. The initial plan was to proceed with a MABEL cardioversion however patient left AMA prior to proceeding with this. She then presented back to the hospital on May 21, 2022 for near syncope. A MABEL was performed on 05/23/2022 and showed an EF of 40% with mild to moderate global hypokinesis of the left ventricle and moderate global right ventricular systolic dysfunction and dilation.??? She had a patent foramen ovale and the left atrium is moderately enlarged.??? She was also noted to have a small pericardial effusion at that time.??? No clots were noted and therefore she was taken for cardioversion with successful synchronized cardioversion into normal sinus rhythm.??? She was discharged home on amiodarone 200 mg twice a day, Eliquis 5 mg twice a day, metoprolol 100 mg twice a day. Her losartan and hydrochlorothiazide were held due to her renal insufficiency. She was switched back to her flecainide. Her metoprolol has been decreased. Repeat echocardiogram in 2022 demonstrated and improved EF of 55-60%. She was in the hospital in 06/2023 for Acute CHF. Patient was hospitalized on September 27, 2023 for acute congestive heart failure with preserved ejection fraction. Echocardiogram demonstrated an ejection fraction of 55% with mildly enlarged left atrium, diastolic dysfunction was unable to be assessed. Patient was started on diuretic therapy. Swelling is better now with support stockings. She does not alway take her lasix. She does not have any palpitations. She does not have any chest pain or working SOB. She does not have any light headedness/dizziness. She is working FT. 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: No Is patient in pain?: No Allergies doxycycline Allergy (Verified 02/08/25 07:50) Hives hydrocodone (From Vicodin) Adverse Reaction (Verified 02/08/25 07:50) Itching Medications ???Medication ???Instructions ???Recorded ???Confirmed ???Type rosuvastatin 5 mg tablet (Crestor) 10 mg PO DAILY cholesterol 06/1805/20/25 History acetaminophen 500 mg tablet 1,000 mg PO DAILY PRN Pain 1-10 Or 08/01/20 05/20/25 History Fever cholecalciferol (vitamin D3) 10 4,000 unit PO DAILY supplement 09/2005/20/25 History mcg (400 unit) capsule folic acid 1 mg tablet 1 mg PO DAILY supplement 08/01/20 05/20/25 History sildenafil (pulm.hypertension) 20 40 mg PO TID pulmonary HTN 05/20/25 History mg tablet fluticasone fur. 100 mcg-umeclid 1 inh inhalation DAILY COPD 05/20/25 History 62.5 mcg-vilant 25 mcg inhalat.powder (Trelegy Ellipta) bupropion HCl 300 mg 24 hr tablet, 300 mg PO DAILY mood 05/16/22 History extended release hydroxychloroquine 200 mg tablet 400 mg (2 x 200 mg) PO DAILY 06/1305/20/25 Rx (Plaquenil) arthritis #1 TAB albuterol sulfate 90 mcg/actuation 2 inh inhalation Q4H PRN shortne ss 06/24/23 05/20/25 History breath activated powder inhaler of breath naltrexone 50 mg tablet 50 mg PO DAILY 08/29/23 05/20/25 H istory trazodone 100 mg tablet 100 mg PO QHS PRN Insomnia 5 05/20/25 History furosemide 40 mg tablet 40 mg PO DAILY 1 month #30 tabs 05/20/25 Rx magnesium chloride 64 mg 128 mg (2 x 64 mg) PO BID 1 month 09/29/24 05/20/25 Rx (magnesium chloride) #120 tabs tablet,delayed release pantoprazole 40 mg tablet,delayed 40 mg PO QAM acid reflux 1 month 12/01/24 05/20/25 Rx release #30 tabs apixaban 5 mg tablet (Eliquis) 5 mg PO BID #180 tabs 12/02/24 Rx flecain (more content not included)... Normal [facility] Gastroenterology Visit Repor ton 02-08-2025 Gastroenterology Visit Report [facility] Gastroenterology [address] [place] [address] OFFICE VISIT Date of Service: 02/08/25 MR#: [id number] Acct: [id number] Name: DEE SHEPHERD Rep #: [id number] : 1970 Provider: Dr. Ike garcia MD Age/Sex: 54/F [place] [facility] [place]: [place] Intake Vital Signs 11/05/24 07:53 02/08/25 07:52 Height 5 ft 7 in 5 ft 7 in Weight: 274 lb BMI 42.9 BP 107/91 H Blood Pressure Location Rt brachial Position Sitting Pulse 60 Pulse Oximetry (%) 90 Oxygen Delivery Method room air Intake Visit Reasons: Follow up Chief Complaint: f/u fatty liver Allergies doxycycline Allergy (Verified 02/08/25 07:50) Hives hydrocodone (From Vicodin) Adverse Reaction (Verified 02/08/25 07:50) Itching Medications ???Medication ???Instructions ???Recorded ???Confirmed ???Type rosuvastatin 5 mg tablet (Crestor) 10 mg PO DAILY cholesterol 06/1802/08/25 History acetaminophen 500 mg tablet 1,000 mg PO DAILY PRN Pain 1-10 Or 08/01/20 02/08/25 History Fever cholecalciferol (vitamin D3) 10 4,000 unit PO DAILY supplement 09/2002/08/25 History mcg (400 unit) capsule folic acid 1 mg tablet 1 mg PO DAILY supplement 08/01/20 02/08/25 History sildenafil (pulm.hypertension) 20 40 mg PO TID pulmonary HTN 02/08/25 History mg tablet fluticasone fur. 100 mcg-umeclid 1 inh inhalation DAILY COPD 02/08/25 History 62.5 mcg-vilant 25 mcg inhalat.powder (Trelegy Ellipta) bupropion HCl 300 mg 24 hr tablet, 300 mg PO DAILY mood 05/16/22 History extended release hydroxychloroquine 200 mg tablet 400 mg (2 x 200 mg) PO DAILY 06/1302/08/25 Rx (Plaquenil) arthritis #1 TAB albuterol sulfate 90 mcg/actuation 2 inh inhalation Q4H PRN shortne ss 06/24/23 02/08/25 History breath activated powder inhaler of breath naltrexone 50 mg tablet 50 mg PO DAILY 08/29/23 02/08/25 H istory flecainide 50 mg tablet 50 mg PO Q12H #180 tabs 01/14/24 0 02/08/25 Rx metoprolol tartrate 25 mg tablet 25 mg PO Q12H high blood pressure 09/27/24 02/08/25 History spironolactone 25 mg tablet 12.5 mg PO DAILY 09/27/24 02/08/25 History Held on 09/29/24. Instructions: Hold for 3 days and then restart from 10-03-24 trazodone 100 mg tablet 100 mg PO QHS PRN Insomnia 5 02/08/25 History furosemide 40 mg tablet 40 mg PO DAILY 1 month #30 tabs 02/08/25 Rx magnesium chloride 64 mg 128 mg (2 x 64 mg) PO BID 1 month 09/29/24 02/08/25 Rx (magnesium chloride) #120 tabs tablet,delayed release pantoprazole 40 mg tablet,delayed 40 mg PO QAM acid reflux 1 month 12/01/24 02/08/25 Rx release #30 tabs apixaban 5 mg tablet (Eliquis) 5 mg PO BID #180 tabs 12/02/2406/25 Rx PFSH Medical History Acute exacerbation of CHF (congestive heart failure) Left shoulder pain HTN (hypertension), benign PFO (patent foramen ovale) PAF (paroxysmal atrial fibrillation) Chronic kidney disease (CKD) Secondary pulmonary arterial hypertension HFrEF (heart failure with reduced ejection fraction) Non-ischemic cardiomyopathy Atrial flutter Panic attack Heart failure with preserved ejection fraction Atrial fibrillation Esophageal spasm Osteoarthritis Tubular adenoma of colon Extremity cyanosis Fatty liver Former smoker CPAP (continuous positive airway pressure) dependence History of pain when walking History of edema Patellofemoral syndrome of both knees Bilateral knee pain Paroxysmal atrial fibrillation Hyperthyroidism Former smoker Migraines HLD (hyperlipidemia) Hiatal hernia COPD (chronic obstructive pulmonary disease) Anxiety History of back problems Obstructive sleep apnea Essential (primary) hypertension Hypomagnesemia Iron deficiency Morbid obesity with BMI of 40.0-44.9, adult DVT (deep venous thrombosis) Anemia Pulmonary embolism (04/26/16) Tobacco user GERD (gastroesophageal reflux disease) Depression Allergic rhinitis Alcohol abuse Surgical History History of transesophageal echocardiography (MABEL) (05/23/22) History of cardioversion (05/23/22) History of cardiac catheterization History of repair of hiatal hernia (12/2020) History of cholecystectomy History of nasal surgery History of hysterectomy H/O repair of rotator cuff History of Family History Mother Breast cancer Cancer lung cancer Father Cancer lung cancer Hypertension High cholesterol Social History household members: spouse Smoking Status: Former smoker quit date: 06/01/23 alcohol intake: current alcohol intake frequency: 3 or more drink (more content not included)... Normal [facility] C-REACTIVE PROTEINon 025 CRP [Mass/Vol] 3.0 mg/L Normal <8.0 [facility] Comment on above: Performed By: #### 3 53, 4420, 375, 6399, 809, 23333 #### [facility] [place] [address] Senior Ui Developer: Mynor Garvey MD #### %[id number], [id number] #### [facility], [address] [place] [address] Senior Ui Developer: Roxana Chandler MD,PhD,DEREK CBC (INCLUDES DIFF/PLT)on Basophils (Bld) [#/Vol] 0.038 10*3/uL Normal 0-200 [facility] Comment on above: Performed By: #### 3 53, 4420, 375, 6399, 809, 80551 #### [facility] [address], [address] [place] [address] Senior Ui Developer: Mynor Garvey MD #### %[id number], [id number] #### [facility], [address] [place] [address] Senior Ui Developer: Roxana Chandler MD,PhD,DEREK Basophils/100 WBC (Bld) 0.8 % Normal [facility] Comment on above: Performed By: #### 3 53, 4420, 375, 6399, 809, 64762 #### [facility] of [address], [address] [place] [address] Senior Ui Developer: Mynor Garvey MD #### %[id number], [phone] #### [facility], [address] [place] [address] Senior Ui Developer: Roxana Chandler MD,PhD,DEREK Eosinophils (Bld) [#/Vol] 0.173 10*3/uL Normal 15-500 [facility] Comment on above: Performed By: #### 3 53, 4420, 375, 6399, 809, 09420 #### [facility] [address], [address] [place] [address] Senior Ui Developer: Mynor Garvey MD #### %[id number], 36812 #### [facility], [facility] [place] [address] Senior Ui Developer: Roxana Chandler MD,PhD,DEREK Eosinophils/100 WBC (Bld) 3.6 % Normal [facility] Comment on above: Performed By: #### 3 53, 4420, 375, 6399, 809, 48363 #### [facility] [address], [address] [place] [address] Senior Ui Developer: Mynor Garvey MD #### %[id number], 73982 #### [facility], [address] [place] [address] Senior Ui Developer: Roxana Chandler MD,PhD,DEREK Erythrocyte distribution width (RBC) [Ratio] 13.8 % Normal 11.0-15.0 [facility] Comment on above: Performed By: #### 3 53, 4420, 375, 6399, 809, 25113 #### [facility] [address], [address] [place] [address] Senior Ui Developer: Mynor Garvey MD #### %[id number], 48625 #### [facility], [address] [place], [place] [address] Senior Ui Developer: Roxana Chandler MD,PhD,DEREK Hematocrit (Bld) [Volume fraction] 37.8 % Normal 35.0-45.0 [facility] Comment on above: Performed By: #### 3 53, 4420, 375, 6399, 809, 62648 #### [facility] [place] [address] Senior Ui Developer: Mynor Garvey MD #### %07152, 56068 #### [facility], [facility] [place] [address] Senior Ui Developer: Roxana Chandler MD,PhD,DEREK Hemoglobin (Bld) [Mass/Vol] 12.4 g/dL Normal 11.7-15.5 [facility] Comment on above: Performed By: #### 3 53, 4420, 375, 6399, 809, 11438 #### [facility] [address], [address] [place] [address] Senior Ui Developer: Mynor Garvey MD #### %[id number], 08355 #### [facility], [address] [place] [address] Senior Ui Developer: Roxana Chandler MD,PhD,DEREK Lymphocytes (Bld) [#/Vol] 0.504 10*3/uL Low 850-3900 [facility] Comment on above: Performed By: #### 3 53, 4420, 375, 6399, 809, 33805 #### [facility] of [address], [address] [place] [address] Senior Ui Developer: Mynor Garvey MD #### %[id number], 91460 #### [facility], [address] [place] [address] Senior Ui Developer: Roxana Chandler MD,PhD,DEREK Lymphocytes/100 WBC (Bld) 10.5 % Normal [facility] Comment on above: Performed By: #### 3 53, 4420, 375, 6399, 809, 58591 #### [facility] [place] [address] Senior Ui Developer: Mynor Garvey MD #### %[id number], 82158 #### [facility], [address] [place] [address] Senior Ui Developer: Roxana Chandler MD,PhD,DEREK MCH (RBC) [Entitic mass] 31.4 pg Normal 27.0-33.0 [facility] Comment on above: Performed By: #### 3 53, 4420, 375, 6399, 809, 79654 #### [facility] [place] [address] Senior Ui Developer: Mynor Garvey MD #### %23751, 81574 #### [facility], [address] [place] [address] Senior Ui Developer: Roxana Chandler MD,PhD,DEREK MCHC (RBC) [Mass/Vol] 32.8 g/dL Normal 32.0-36.[address] [facility] Comment on above: Result Comment: For adults, a slight decrease in the calculated MCHC value (in the range of 30 to 32 g/dL) is most likely not clinically significant; however, it should be interpreted with caution in correlation with other red cell parameters and the patient's clinical condition. Performed By: #### 3 53, 4420, 375, 6399, 809, 89121 #### [facility] of [place] [address] [place] , [address] [place] [address] Senior Ui Developer: Mynor Garvey MD #### %53259, 78624 #### [facility], [address] [place] [address] Senior Ui Developer: Roxana Chandler MD,PhD,DEREK MCV (RBC) [Entitic vol] 95.7 fL Normal 80.0-100.0 [facility] Comment on above: Performed By: #### 3 53, 4420, 375, 6399, 809, 95302 #### [facility] of [place] [address] Senior Ui Developer: Mynor Garvey MD #### %52061, 95240 #### [facility], [facility] [place] [address] Senior Ui Developer: Roxana Chandler MD,PhD,DEREK Monocytes (Bld) [#/Vol] 0.514 10*3/uL Normal 200-950 [facility] Comment on above: Performed By: #### 3 53, 4420, 375, 6399, 809, 63159 #### [facility] of [place] [address] [place] [address] Senior Ui Developer: Mynor Garvey MD #### %06078, 17828 #### [facility], [address] [place] [address] Senior Ui Developer: Roxana Chandler MD,PhD,DEREK Monocytes/100 WBC (Bld) 10.7 % Normal [facility] Comment on above: Performed By: #### 3 53, 4420, 375, 6399, 809, 70877 #### [facility] of [place] [address], [address] [place] [address] Senior Ui Developer: Mynor Garvey MD #### %77696, 37187 #### [facility], [address] [place] [address] Senior Ui Developer: Roxana Chandler MD,PhD,DEREK Neutrophils (Bld) [#/Vol] 3.571 10*3/uL Normal 6590-3814 [facility] Comment on above: Performed By: #### 3 53, 4420, 375, 6399, 809, 28637 #### [facility] [place] [address] Senior Ui Developer: Mynor Garvey MD #### %60632, 36784 #### [facility], [facility] [place] [address] Senior Ui Developer: Roxana Chandler MD,PhD,DEREK Neutrophils/100 WBC (Bld) 74.4 % Normal [facility] Comment on above: Performed By: #### 3 53, 4420, 375, 6399, 809, 23125 #### [facility] [place] [address] Senior Ui Developer: Mynor Garvey MD #### %43936, 47943 #### [facility], [facility] [address] Senior Ui Developer: Roxana Chandler MD,PhD,DEREK Platelet mean volume (Bld) [Entitic vol] 10.0 fL Normal 7.5-12.5 [facility] Comment on above: Performed By: #### 3 53, 4420, 375, 6399, 809, 16767 #### [facility] of [place] [address] [place] , [address] [place] [address] Senior Ui Developer: Mynor Garvey MD #### %87566, 40905 #### [facility], [address] [facility] [place] Senior Ui Developer: Roxana Chandler MD,PhD,DEREK Platelets (Bld) [#/Vol] 142 10*3/uL Normal 140-400 [facility] Comment on above: Performed By: #### 3 53, 4420, 375, 6399, 809, 34102 #### [facility] of [place] [address], [address] [place] [address] Senior Ui Developer: Mynor Garvey MD #### %09963, 25811 #### [facility], [address] [place] [id number] Senior Ui Developer: Roxana Chandler MD,PhD,DEREK RBC (Bld) [#/Vol] 3.95 10*6/uL Normal 3.80-5.10 [facility] Comment on above: Performed By: #### 3 53, 4420, 375, 6399, 809, 91484 #### [facility] of [place] [address] [place] , [address] [place] [address] Senior Ui Developer: Mynor Garvey MD #### %91295, 07797 #### [facility], [address] [place] [address] Senior Ui Developer: Roxana Chandler MD,PhD,DEREK WBC (Bld) [#/Vol] 4.8 10*3/uL Normal 3.8-10.8 [facility] Comment on above: Performed By: #### 3 53, 4420, 375, 6399, 809, 86774 #### [facility] [place] [address] [place] , [address] [place] [address] Senior Ui Developer: Mynor Garvey MD #### %79877, 36977 #### [facility], [address] [place], [place] Senior Ui Developer: Roxana Chandler MD,PhD,DEREK COMPLEMENT COMPONENT C3Con 0 01-12-2025 COMPLEMENT COMPONENT C3C 161 mg/dL Normal 83-193 [facility] Comment on above: Performed By: #### 3 53, 4420, 375, 6399, 809, 05649 #### [facility] [place] [address] [place] , [address] [place] [address] Senior Ui Developer: Mynor Garvey MD #### %36461, 38361 #### [facility], [address] [place] [address] Senior Ui Developer: Roxana Chandler MD,PhD,DEREK COMPLEMENT COMPONENT C4Con 0 01-12-2025 COMPLEMENT COMPONENT C4C 31 mg/dL Normal 15-57 [facility] Comment on above: Performed By: #### 3 53, 4420, 375, 6399, 809, 55981 #### [facility] [address], [address] [place] [address] Senior Ui Developer: Mynor Garvey MD #### %33962, 66588 #### [facility], [address] [place] [address] Senior Ui Developer: Roxana Chandler MD,PhD,DEREK CREATININEon 01-12-2025 Creatinine [Mass/Vol] 1.05 mg/dL High 0.50-1.[address] [facility] Comment on above: Order Comment: FASTI NG:UNKNOWN FASTING: UNKNOWN Performed By: #### 3 53, 4420, 375, 6399, 809, 14719 #### [facility] [address], [address] [place] [address] Senior Ui Developer: Mynor Garvey MD #### %20625, 14968 #### [facility], [address] [place] [address] Senior Ui Developer: Roxana Chandler MD,PhD,DEREK GFR/1.73 sq M.predicted among non-blacks MDRD (S/P/Bld) [Vol rate/Area] 62 mL/min/{1.73_m2} Normal > OR = 60 [facility] Comment on above: Order Comment: FASTI NG:UNKNOWN FASTING: UNKNOWN Performed By: #### 3 53, 4420, 375, 6399, 809, 07037 #### [facility] [address], [address] [place] [address] Senior Ui Developer: Mynor Garvey MD #### %83021, 82440 #### [facility], [address] [place] [address] Senior Ui Developer: Roxana Chandler MD,PhD,DEREK DNA (DS) ANTIBODY, CRITHIDIA , IFA W/REFLon 01-12-2025 DNA AB (DS) CRITHIDIA,IFA Positive Abnormal NEGATIVE [facility] Comment on above: Performed By: #### 3 53, 4420, 375, 6399, 809, 77844 #### [facility] of [address], [address] [place] [address] Senior Ui Developer: Mynor Garvey MD #### %78259, 43378 #### [facility], [address] [place] [address] Senior Ui Developer: Roxana Chandler MD,PhD,DEREK DNA AB (DS) CRITHIDIA TITERo 01-12-2025 DNA AB (DS) CRITHIDIA TITER 1:80 High <1:10 [facility] Comment on above: Performed By: #### 3 53, 4420, 375, 6399, 809, 70787 #### [facility] [address], [address] [place] [address] Senior Ui Developer: Mynor Garvey MD #### %70774, 70004 #### [facility], [address] [place] [address] Senior Ui Developer: Roxana Chandler MD,PhD,DEREK HEPATIC FUNCTION PANELon Albumin [Mass/Vol] 4.2 g/dL Normal 3.6-5.1 [facility] Comment on above: Performed By: #### 3 53, 4420, 375, 6399, 809, 45230 #### [facility] of [address], [address] [place] [address] Senior Ui Developer: Mynor Garvey MD #### %05301, 18629 #### [facility], [address] [place] [address] Senior Ui Developer: Roxana Chandler MD,PhD,DEREK Albumin/Globulin [Mass ratio] 1.8 {ratio} Normal 1.0-2.5 [facility] Comment on above: Performed By: #### 3 53, 4420, 375, 6399, 809, 00249 #### [facility] of [place] [address] Senior Ui Developer: Mynor Garvey MD #### %07579, 55812 #### [facility], [address] [place] [address] Senior Ui Developer: Roxana Chandler MD,PhD,DEREK ALP [Catalytic activity/Vol] 72 U/L Normal 37-153 [facility] Comment on above: Performed By: #### 3 53, 4420, 375, 6399, 809, 54941 #### [facility] of [place] [address] Senior Ui Developer: Mynor Garvey MD #### %90089, 38160 #### [facility], [address] [place] [address] Senior Ui Developer: Roxana Chandler MD,PhD,DEREK ALT [Catalytic activity/Vol] 17 U/L Normal 6-29 [facility] Comment on above: Performed By: #### 3 53, 4420, 375, 6399, 809, 59966 #### [facility] of [place] [address] [place] , [address] [place] [address] Senior Ui Developer: Mynor Garvey MD #### %71525, 14082 #### [facility], [address] [place] [address] Senior Ui Developer: Roxana Chandler MD,PhD,DEREK AST [Catalytic activity/Vol] 15 U/L Normal 10-35 [facility] Comment on above: Performed By: #### 3 53, 4420, 375, 6399, 809, 46719 #### [facility] of [address] , [address] [place] [address] Senior Ui Developer: Mynor Garvey MD #### %45355, 69691 #### [facility], [facility] [place] [address] Senior Ui Developer: Roxana Chandler MD,PhD,DEREK Bilirubin [Mass/Vol] 0.9 mg/dL Normal 0.2-1.2 [facility] Comment on above: Performed By: #### 3 53, 4420, 375, 6399, 809, 05685 #### [facility] of [address] , [address] [place] [address] Senior Ui Developer: Mynor Garvey MD #### %96713, 79767 #### [facility], [address] [place] [address] Senior Ui Developer: Roxana Chandler MD,PhD,DEREK BILIRUBIN, INDIRECT 0.7 mg/dL (calc) Normal 0.2-1.2 [facility] Comment on above: Performed By: #### 3 53, 4420, 375, 6399, 809, 31178 #### [facility] of [place] [address] [place] , [address] [place] [address] Senior Ui Developer: Mynor Garvey MD #### %18177, 63437 #### [facility], [address] [place] [address] Senior Ui Developer: Roxana Chandler MD,PhD,DEREK Bilirubin.indirect [Mass/Vol] 0.2 mg/dL Normal < OR = 0.2 [facility] Comment on above: Performed By: #### 3 53, 4420, 375, 6399, 809, 32603 #### [facility] of [place] [address], [address] [place] [address] Senior Ui Developer: Mynor Garvey MD #### %23924, 87458 #### [facility], [address] [address] Senior Ui Developer: Roxana Chandler MD,PhD,DEREK Globulin (S) [Mass/Vol] 2.4 g/dL Normal 1.9-3.7 [facility] Comment on above: Performed By: #### 3 53, 4420, 375, 6399, 809, 00830 #### [facility] [place] [address] Senior Ui Developer: Mynor Garvey MD #### %06824, 25085 #### [facility], [address] [place] [address] Senior Ui Developer: Roxana Chandler MD,PhD,DEREK Protein [Mass/Vol] 6.6 g/dL Normal 6.1-8.1 [facility] Comment on above: Performed By: #### 3 53, 4420, 375, 6399, 809, 40380 #### [facility] [address], [address] [place] [address] Senior Ui Developer: Mynor Garvey MD #### %28073, 69972 #### [facility], [address] [place] [address] Senior Ui Developer: Roxana Chandler MD,PhD,DEREK SED RATE BY MODIFIED WESTERG RENon 01-12-2025 SED RATE BY MODIFIED WESTERGREN 25 mm/h Normal < OR = 30 [facility] Comment on above: Performed By: #### 3 53, 4420, 375, 6399, 809, 36155 #### [facility] [address] [facility], [address] [place] [address] Senior Ui Developer: Mynor Garvey MD #### %15459, 18755 #### [facility], [address] [place] [address] Senior Ui Developer: Roxana Chandler MD,PhD,DEREK C3 Complementon 01-07-2025 Complement C3 [Mass/Vol] 161 mg/dL 83 - 193 mg/dL [facility] C4 Complementon 01-07-2025 Complement C4 [Mass/Vol] 31 mg/dL 15 - 57 mg/dL [facility] CBC and Differentialon 01-07 Basophils (Bld) [#/Vol] 38 10*3/uL [facility] Basophils/100 WBC (Bld) 0.8 % [facility] Eosinophils (Bld) [#/Vol] 173 10*3/uL [facility] Eosinophils/100 WBC (Bld) 3.6 % [facility] Erythrocyte distribution width (RBC) [Ratio] 13.8 % 11.0 - 15.0 % [facility] Hematocrit (Bld) [Volume fraction] 37.8 % 35.0 - 45.0 % [facility] Hemoglobin (Bld) [Mass/Vol] 12.4 g/dL 11.7 - 15.5 g/dL [facility] Interpretation and review of laboratory results Abnormal [facility] Lymphocytes (Bld) [#/Vol] 504 10*3/uL Low [facility] Lymphocytes/100 WBC (Bld) 10.5 % [facility] MCH (RBC) [Entitic mass] 31.4 pg 27.0 - 33.0 pg [facility] MCHC (RBC) [Mass/Vol] 32.8 g/dL 32.0 - 36.0 g/dL [facility] Comment on above: For adults, a slight decrease in the calculated MCHC value (in the range of 30 to 32 g/dL) is most likely not clinically significant; however, it should be interpreted with caution in correlation with other red cell parameters and the patient's clinical condition. MCV (RBC) [Entitic vol] 95.7 fL 80.0 - 100.0 fL [facility] Monocytes (Bld) [#/Vol] 514 10*3/uL [facility] Monocytes/100 WBC (Bld) 10.7 % [facility] Neutrophils (Bld) [#/Vol] 3571 10*3/uL [facility] Neutrophils/100 WBC (Bld) 74.4 % [facility] Platelet mean volume (Bld) [Entitic vol] 10 fL 7.5 - 12.5 fL [facility] Platelets (Bld) [#/Vol] 142 10*3/uL [facility] RBC (Bld) [#/Vol] 3.95 10*6/[facility]L [facility] ([facility] [#/Vol] 4.8 10*3/uL [facility]th FASTING:UNKNOWN FASTING: UNKNOWN [facility] [facility] CRP [Mass/Vol]on 01-07-2025 FASTING:UNKNOWN FASTING: UNKNOWN [facility] CRP, Inflammationon 01-08-20 25 CRP [Mass/Vol] 3 mg/L NINF - 8.0 mg/L [facility] Creatinine [Mass/Vol]on GFR/1.73 sq M.predicted among non-blacks MDRD (S/P/Bld) [Vol rate/Area] 62 mL/min/{1.73_m2} > OR = 60 mL/min/1.73m 2 [facility] Interpretation and review of laboratory results Abnormal [facility] Creatinine, serumon 01-08-20 25 Creatinine [Mass/Vol] 1.05 mg/dL High 0.50 - 1.03 mg/dL [facility] ESR Westergren method (Bld) [Velocity]on 01-07-2025 ESR (Bld) [Velocity] 25 mm/h < OR = 30 [facility] Hepatic function 2000 panelo n 01-07-2025 Albumin [Mass/Vol] 4.2 g/dL 3.6 - 5.1 g/dL [facility] Albumin/Globulin [Mass ratio] 1.8 {ratio} [facility] ALP [Catalytic activity/Vol] 72 U/L 37 - 153 U/L [facility] ALT [Catalytic activity/Vol] 17 U/L 6 - 29 U/L [facility] AST [Catalytic activity/Vol] 15 U/L 10 - 35 U/L [facility] Bilirubin [Mass/Vol] 0.9 mg/dL 0.2 - 1 .2 mg/dL [facility] Bilirubin.direct [Mass/Vol] 0.2 mg/dL < OR = 0.2 [facility] Bilirubin.indirect [Mass/Vol] 0.7 mg/dL [facility] Globulin (S) [Mass/Vol] 2.4 g/dL [facility] Protein [Mass/Vol] 6.6 g/dL 6.1 - 8.1 g/dL [facility] No Panel Informationon 01-07 FASTING:UNKNOWN FASTING: UNKNOWN [facility] FASTING:UNKNOWN FASTING: UNKNOWN [facility] PROTEIN, TOTAL W/CREAT, RAND OM URINEon 01-07-2025 Creatinine (U) [Mass/Vol] 231 mg/dL Normal 20-275 [facility] Comment on above: Order Comment: FASTI NG:UNKNOWN FASTING: UNKNOWN Performed By: #### 1 715 #### [facility] [address], [address] [place] [address] Senior Ui Developer: Mynor Garvey MD Protein (U) [Mass/Vol] 25 mg/dL High 5-24 [facility] Comment on above: Order Comment: FASTI NG:UNKNOWN FASTING: UNKNOWN Performed By: #### 1 715 #### [facility] [place] [address] Senior Ui Developer: Mynor Garvey MD PROTEIN/CREATININE RATIO 108 mg/g creat Normal 24-184 [facility] Comment on above: Order Comment: FASTI NG:UNKNOWN FASTING: UNKNOWN Performed By: #### 1 715 #### [facility] [address], [address] [place] [address] Senior Ui Developer: Mynor Garvey MD PROTEIN/CREATININE RATIO 0.108 mg/mg creat Normal 0.024-0.184 [facility] Comment on above: Order Comment: FASTI NG:UNKNOWN FASTING: UNKNOWN Performed By: #### 1 715 #### [facility] [place] [address] Senior Ui Developer: Mynor Garvey MD Protein/Creatinine (U) [Rati o]on 01-07-2025 Creatinine (U) [Mass/Vol] 231 mg/dL 20 - 275 mg/dL [facility] Interpretation and review of laboratory results Abnormal [facility] Protein (U) [Mass/Vol] 25 mg/dL High 5 - 24 mg/dL [facility] Protein/Creatinine (U) [Mass ratio] 108 mg/g [facility] Protein/Creatinine (U) [Mass ratio] 0.108 mg/g [facility] FASTING:UNKNOWN FASTING: UNKNOWN [facility] URINALYSIS, COMPLETEon 01-07 Appearance (U) CLEAR Normal CLEAR [facility] Comment on above: Order Comment: FASTI NG:UNKNOWNFASTING: UNKNOWN Performed By: #### 3 53, 4420, 375, 6399, 809, 42939 #### [facility] [address], [address] [place] [address] Senior Ui Developer: Mynor Garvey MD #### %[id number] #### [facility], [address] [place] [address] Senior Ui Developer: Roxana Chandler MD,PhD,DEREK BACTERIA MANY Abnormal NONE SEEN [facility] Comment on above: Order Comment: FASTI NG:UNKNOWNFASTING: UNKNOWN Performed By: #### 3 53, 4420, 375, 6399, 809, 37587 #### [facility] [address], [address] [place] [address] Senior Ui Developer: Mynor Garvey MD #### %[id number] #### [facility], [address] [place] [address] Senior Ui Developer: Roxana Chandler MD,PhD,DEREK Bilirubin Ql (U) Negative Normal NEGATIVE [facility] Comment on above: Order Comment: FASTI NG:UNKNOWNFASTING: UNKNOWN Performed By: #### 3 53, 4420, 375, 6399, 809, 62102 #### [facility] of [address], [address] [place] [address] Senior Ui Developer: Mynor Garvey MD #### %[id number] #### [facility], [address] [place] [address] Senior Ui Developer: Roxana Chandler MD,PhD,DEREK CALCIUM OXALATE CRYSTALS MODERATE Abnormal NONE OR FEW [facility] Comment on above: Order Comment: FASTI NG:UNKNOWNFASTING: UNKNOWN Performed By: #### 3 53, 4420, 375, 6399, 809, 14102 #### [facility] [address], [address] [place] [address] Senior Ui Developer: Mynor Garvey MD #### %[id number] [phone] #### [facility], [address] [place] [address] Senior Ui Developer: Roxana Chandler MD,PhD,DEREK Color (U) YELLOW Normal YELLOW [facility] Comment on above: Order Comment: FASTI NG:UNKNOWNFASTING: UNKNOWN Performed By: #### 3 53, 4420, 375, 6399, 809, 75898 #### [facility] [address], [address] [place] [address] Senior Ui Developer: Mynor Garvey MD #### %[id number] #### [facility], [address] [place] [address] Senior Ui Developer: Roxana Chandler MD,PhD,DEREK Glucose Ql (U) Negative Normal NEGATIVE [facility] Comment on above: Order Comment: FASTI NG:UNKNOWNFASTING: UNKNOWN Performed By: #### 3 53, 4420, 375, 6399, 809, 52686 #### [facility] [address], [address] [place] [address] Senior Ui Developer: Mynor Garvey MD #### %[phone] [phone] #### [facility], [address] [place] [address] Senior Ui Developer: Roxana Chandler MD,PhD,DEREK HYALINE CAST NONE SEEN Normal NONE SEEN [facility] Comment on above: Order Comment: FASTI NG:UNKNOWNFASTING: UNKNOWN Performed By: #### 3 53, 4420, 375, 6399, 809, 84364 #### [facility] of [place] [address], [address] [place] [address] Senior Ui Developer: Mynor Garvey MD #### %[id number], [id number] #### [facility], [address] [address] [place] [address] Senior Ui Developer: Roxana Chandler MD,PhD,DEREK Ketones Ql (U) TRACE Abnormal NEGATIVE [facility] Comment on above: Order Comment: FASTI NG:UNKNOWNFASTING: UNKNOWN Performed By: #### 3 53, 4420, 375, 6399, 809, 27227 #### [facility] [place] [address] [address] , [address] [place] [address] Senior Ui Developer: Mynor Garvey MD #### %[id number] #### [facility], [address] [place] [place] [address] Senior Ui Developer: Roxana Chandler MD,PhD,DEREK Leukocyte esterase Test strip Ql (U) 1+ Abnormal NEGATIVE [facility] Comment on above: Order Comment: FASTI NG:UNKNOWNFASTING: UNKNOWN Performed By: #### 3 53, 4420, 375, 6399, 809, 57318 #### [facility] [place] [address] [address] , [address] [place] [address] Senior Ui Developer: Mynor Garvey MD #### %[id number] [phone] #### [facility], [address] [place] [address] Senior Ui Developer: Roxana Chandler MD,PhD,DEREK Nitrite Ql (U) Negative Normal NEGATIVE [facility] Comment on above: Order Comment: FASTI NG:UNKNOWNFASTING: UNKNOWN Performed By: #### 3 53, 4420, 375, 6399, 809, 57481 #### [facility] [place] [address] [address] , [address] [place] [address] Senior Ui Developer: Mynor Garvey MD #### %[id number], [phone] #### [facility], [address] [place], [place] [address] Senior Ui Developer: Roxana Chandler MD,PhD,DEREK NOTE Normal [facility] Comment on above: Order Comment: FASTI NG:UNKNOWNFASTING: UNKNOWN Result Comment: This urine was analyzed for the presence of WBC, RBC, bacteria, casts, and other formed elements. Only those elements seen were reported. Performed By: #### 3 53, 4420, 375, 6399, 809, 43683 #### [facility] [address], [address] [place] [address] Senior Ui Developer: Mynor Garvey MD #### %[id number], [phone] #### [facility], [address] [place] [address] Senior Ui Developer: Roxana Chandler MD,PhD,DEREK OCCULT BLOOD Negative Normal NEGATIVE [facility] Comment on above: Order Comment: FASTI NG:UNKNOWNFASTING: UNKNOWN Performed By: #### 3 53, 4420, 375, 6399, 809, 86000 #### [facility] [address], [address] [place] [address] Senior Ui Developer: Mynor Garvey MD #### %[id number] #### [facility], [address] [place] [address] Senior Ui Developer: Roxana Chandler MD,PhD,DEREK pH (U) [pH] Low 5.0-8.0 [facility] Comment on above: Order Comment: FASTI NG:UNKNOWNFASTING: UNKNOWN Performed By: #### 3 53, 4420, 375, 6399, 809, 16075 #### [facility] [address], [address] [place] [address] Senior Ui Developer: Mynor Garvey MD #### %[id number], [phone] #### [facility], [address] [place] [address] Senior Ui Developer: Roxana Chandler MD,PhD,DEREK Protein Ql (U) TRACE Abnormal NEGATIVE [facility] Comment on above: Order Comment: FASTI NG:UNKNOWNFASTING: UNKNOWN Performed By: #### 3 53, 4420, 375, 6399, 809, 67387 #### [facility] [place] [address] Senior Ui Developer: Mynor Garvey MD #### %[id number], [phone] #### [facility], [facility] [place] [address] Senior Ui Developer: Roxana Chandler MD,PhD,DEREK RBC NONE SEEN Normal < OR = 2 [facility] Comment on above: Order Comment: FASTI NG:UNKNOWNFASTING: UNKNOWN Performed By: #### 3 53, 4420, 375, 6399, 809, 67540 #### [facility] [place] [address] Senior Ui Developer: Mynor Garvey MD #### %[id number], [phone] #### [facility], [address] [place] [address] Senior Ui Developer: Roxana Chandler MD,PhD,DEREK Specific gravity (U) [Rel density] 1.025 Normal 1.001-1.035 [facility] Comment on above: Order Comment: FASTI NG:UNKNOWNFASTING: UNKNOWN Performed By: #### 3 53, 4420, 375, 6399, 809, 27943 #### [facility] [address], [address] [place] [address] Senior Ui Developer: Mynor Garvey MD #### %[id number] [phone] #### [facility], [address] [place] [address] Senior Ui Developer: Roxana Chandler MD,PhD,DEREK SQUAMOUS EPITHELIAL CELLS 20-40 Abnormal < OR = 5 [facility] Comment on above: Order Comment: FASTI NG:UNKNOWNFASTING: UNKNOWN Performed By: #### 3 53, 4420, 375, 6399, 809, 81920 #### [facility] [address], [address] [place] [address] Senior Ui Developer: Mynor Garvey MD #### %[id number], [phone] #### [facility], [address] [place] [address] Senior Ui Developer: Roxana Chandler MD,PhD,DEREK WBC 6-10 Abnormal < OR = 5 [facility] Comment on above: Order Comment: FASTI NG:UNKNOWNFASTING: UNKNOWN Performed By: #### 3 53, 4420, 375, 6399, 809, 56873 #### [facility] [address], [address] [place] [address] Senior Ui Developer: Mynor Garvey MD #### %[id number], [phone] #### [facility], [address] [place] [address] Senior Ui Developer: Roxana Chandler MD,PhD,DEREK Urinalysison 01-07-2025 Appearance (U) CLEAR CLEAR [facility] Bacteria LM.HPF (Urine sed) [#/Area] MANY Abnormal NONE SEEN /HPF [facility] Bilirubin Ql (U) Negative [facility]GATIVE [facility] Calcium oxalate crystals LM.HPF (Urine sed) [#/Area] MODERATE Abnormal NONE OR FEW /HPF [facility] Color (U) YELLOW YELLOW [facility] Epithelial cells.squamous LM.HPF (Urine sed) [#/Area] 20-40 Abnormal < OR = 5 /HPF [facility] Glucose Ql (U) Negative NEGATIVE [facility] Hemoglobin Ql (U) Negative NEGATIVE [facility] Hyaline casts (Urine sed) [#/Area] NONE SEEN NONE SEEN /LPF [facility] Interpretation and review of laboratory results Abnormal [facility] Ketones Ql (U) TRACE Abnormal NEGATIVE [facility] Leukocyte esterase Test strip Ql (U) 1+ Abnormal NEGATIVE [facility] Nitrite Ql (U) Negative NEGATIVE [facility] pH (U) [pH] Low 5.0 - 8.0 [facility] Protein Ql (U) TRACE Abnormal NEGATIVE [facility] RBC LM.HPF (Urine sed) [#/Area] NONE SEEN < OR = 2 /HPF [facility] Service comment (Unsp spec) [Interp] [facility] Comment on above: This urine was nelly zed for the presence of WBC, RBC, bacteria, casts, and other formed elements. Only those elements seen were reported. Specific gravity (U) [Rel density] 1.025 1.001 - 1.035 [facility] WBC LM.HPF (Urine sed) [#/Area] 6-10 Abnormal < OR = 5 /HPF [facility] FASTING:UNKNOWN FASTING: UNKNOWN [employer] [facility] normalized rat io (INR) measurement by fingerstickOrdered By: Jasmyne Sparks on 12-14-2024 INR Coag (BldC) [Relative time] 1.2 [facility] Comment on above: Critical Value > 4.0 Prothrombin Time w/INRon INR Normal [facility] Comment on above: Result Comment: FINF GERSTICK Performed By: #### L 506.0400, L500.4100, L501.9520, L501.62158, L500.2500 #### [facility] [address] [place], [address] PROTIME Normal 11.7-14.9 [facility] Comment on above: Result Comment: FINF GERSTICK Performed By: #### L 506.0400, L500.4100, L501.9520, L501.22000, L500.2500 #### [facility] [address] [place], [address] Protime w/INR Fingerstickon 12-14-2024 INR Coag (PPP) [Relative time] 1.2 {INR} Normal [facility] Comment on above: Result Comment: Crit ical Value > 4.0 Performed By: #### L 506.0400, L500.4100, L501.9520, L501.89347, L500.2500 #### [facility] [address] [place], [address] Protime Coagsen 13.9 SEC Normal 11.7-14.9 [facility] Comment on above: Performed By: #### L 506.0400, L500.4100, L501.9520, L501.55486, L500.2500 #### [facility] [address] [place], [address] INR Normal [facility] Comment on above: Result Comment: FING ERSTICK Performed By: #### L 506.0400, L500.4100, L501.9520, L501.92107, L500.2500 #### [facility] [address] [place], [address] Protime Coagsen Normal 11.7-14.9 [facility] Comment on above: Result Comment: FING ERSTICK Performed By: #### L 506.0400, L500.4100, L501.9520, L501.20579, L500.2500 #### [facility] [address] [place], [address] Whole blood prothrombin time Ordered By: Jasmyne Sparks on 12-14-2024 PT Coag (Bld) [Time] 13.9 s 11.7-14.9 [facility] INR Coag (BldC) [Relative ti me]Ordered By: Jasmyne Sparks on 12-09-2024 INR Coag (Bld) [Relative time] 3.1 {INR} [facility] Comment on above: Critical Value > 4.0 PT Coag (Bld) [Time]Ordered By: Jasmyne Sparks on 12-09-2024 Bedside Prothrombin Time 32.2 SEC High 11.7-14.9 [facility] Protime w/INR Fingerstickon 12-09-2024 INR Coag (PPP) [Relative time] 3.1 {INR} Normal [facility] Comment on above: Result Comment: Crit ical Value > 4.0 Performed By: #### L 500.2500 #### [facility] [address] [place], [address] Protime Coagsen 32.2 SEC High 11.7-14.9 [facility] Comment on above: Performed By: #### L 500.2500 #### [facility] [address] [place], [address] CBC-Complete Blood Cnt No Di ffon 12-07-2024 Erythrocyte distribution width (RBC) [Ratio] 13.7 % Normal 11.6-14.6 [facility] Comment on above: Performed By: #### L 506.0400, L500.4100, L501.9520, L501.32229, L500.2500 #### [facility] [address] [place], [address] Hematocrit (Bld) [Volume fraction] 38.5 % Normal 37-47 [facility] Comment on above: Performed By: #### L 506.0400, L500.4100, L501.9520, L501.67841, L500.2500 #### [facility] [address] [place], [address] Hemoglobin (Bld) [Mass/Vol] 12.7 g/dL Normal 12.0-15.0 [facility] Comment on above: Performed By: #### L 506.0400, L500.4100, L501.9520, L501.92033, L500.2500 #### [facility] [address] [place], [address] MCH (RBC) [Entitic mass] 30.8 pg Normal 27.0-32.0 [facility] Comment on above: Performed By: #### L 506.0400, L500.4100, L501.9520, L501.89566, L500.2500 #### [facility] [address] [place], [address] MCHC (RBC) [Mass/Vol] 33.0 g/dL Normal 32-36 [facility] Comment on above: Performed By: #### L 506.0400, L500.4100, L501.9520, L501.63803, L500.2500 #### [facility] [address] [place], [address] MCV (RBC) [Entitic vol] 93.4 fL Normal 81-99 [facility] Comment on above: Performed By: #### L 506.0400, L500.4100, L501.9520, L501.16705, L500.2500 #### [facility] [address] [place], [address] Platelet mean volume (Bld) [Entitic vol] 9.0 fL Normal 6.2-12.0 [facility] Comment on above: Performed By: #### L 506.0400, L500.4100, L501.9520, L501.88711, L500.2500 #### [facility] [address] [place], [address] Platelets (Bld) [#/Vol] 173 10*3/uL Normal 150-450 [facility] Comment on above: Performed By: #### L 506.0400, L500.4100, L501.9520, L501.28322, L500.2500 #### [facility] [address] [place], [address] RBC (Bld) [#/Vol] 4.12 10*6/uL Low 4.2-5.4 [facility] Comment on above: Performed By: #### L 506.0400, L500.4100, L501.9520, L501.53684, L500.2500 #### [facility] [address] [place], [address] RDW SD 46.7 fl High 35.1-43.9 [facility] Comment on above: Performed By: #### L 506.0400, L500.4100, L501.9520, L501.82699, L500.2500 #### [facility] [address] [place], [address] WBC (Bld) [#/Vol] 6.2 10*3/uL Normal 4.4-11.0 [facility] Comment on above: Performed By: #### L 506.0400, L500.4100, L501.9520, L501.09296, L500.2500 #### [facility] [address] [place], [address] Erythrocyte distribution wid th (RBC) [Ratio]Ordered By: Luis Benavides on 12-07-2024 Erythrocyte distribution width (RBC) [Entitic vol] 46.7 fL High 35.1-43.9 [facility] Erythrocyte distribution wid th ratioOrdered By: Luis Kennedy on 12-07-2024 Erythrocyte distribution width (RBC) [Ratio] 13.7 % 11.6-14.6 [facility] Erythrocyte distribution wid th standard deviationOrdered By: Luis Kennedy on 12-07-2024 Erythrocyte distribution width (RBC) [Ratio] 46.7 fl High 35.1-43.9 [facility] Hematocrit Auto (Bld) [Volum e fraction]Ordered By: Luis Kennedy on 12-07-2024 Hematocrit (Bld) [Volume fraction] 38.5 % 37-47 [facility] Hemoglobin measurementOrdere d By: Luis Benavides on 12-07-2024 Hemoglobin (Bld) [Mass/Vol] 12.7 g/dL 12.0-15.0 [facility] MCV (mean corpuscular volume ) determinationOrdered By: Luis Kennedy on 12-07-2024 MCV (RBC) [Entitic vol] 93.4 fL 81-99 [facility] Mean corpuscular hemoglobin (MCH) determinationOrdered By: [place] Kennedy on 12-07-2024 MCH (RBC) [Entitic mass] 30.8 pg 27.0-32.0 [facility] Mean corpuscular hemoglobin concentration (MCHC) determinationOrdered By: Luis Kennedy on 12-07-2024 MCHC (RBC) [Mass/Vol] 33.0 g/dL 32-36 [facility] Mean platelet volume determi nationOrdered By: Luis Kennedy on 12-07-2024 Platelet mean volume (Bld) [Entitic vol] 9.0 fL 6.2-12.0 [facility] Platelet countOrdered By: Cy ril Kennedy on 12-07-2024 Platelets (Bld) [#/Vol] 173 10*3/uL 150-450 [facility] RBC Auto (Bld) [#/Vol]Ordere d By: Luis Kennedy on 12-07-2024 RBC (Bld) [#/Vol] 4.12 10*6/uL Low 4.2-5.4 [facility] White blood cell (WBC) count Ordered By: Luis Kennedy on 12-07-2024 WBC (Bld) [#/Vol] 6.2 10*3/uL 4.4-11.0 [facility] INGE w/ Reflex Mult Confirmon 12-06-2024 INGE TABLE Normal [facility] Comment on above: Result Comment: SHAGGY RS EZXPIRED ON 10/15/24 Performed By: #### L 506.0400, L500.4100, L501.9520, L501.85825, L500.2500 #### [facility] [address] [place], [place], [id number] INGE,DIRECT Normal [facility] Comment on above: Result Comment: SHAGGY RS EZXPIRED ON 10/15/24 Performed By: #### L 506.0400, L500.4100, L501.9520, L501.11540, L500.2500 #### [facility] [address] [place], [address] INGE-D See below Normal [facility] Comment on above: Result Comment: SHAGGY RS EZXPIRED ON 10/15/24 Performed By: #### L 506.0400, L500.4100, L501.9520, L501.54267, L500.2500 #### [facility] [address] [place], [address] ANTI-CENT B AB Normal [facility] Comment on above: Result Comment: SHAGGY RS EZXPIRED ON 10/15/24 Performed By: #### L 506.0400, L500.4100, L501.9520, L501.65695, L500.2500 #### [facility] [address] [place], [address] ANTI-DNA (DS)AB Normal [facility] Comment on above: Result Comment: SHAGGY RS EZXPIRED ON 10/15/24 Performed By: #### L 506.0400, L500.4100, L501.9520, L501.95230, L500.2500 #### [facility] [address] [place], [address] ANTI-CRYSTAL-1 Normal [facility] Comment on above: Result Comment: TIANAE RS EZXPIRED ON 10/15/24 Performed By: #### L 506.0400, L500.4100, L501.9520, L501.19546, L500.2500 #### [facility] [address] [place], [address] ANTI-SS-A Normal [facility] Comment on above: Result Comment: ORDE RS EZXPIRED ON 10/15/24 Performed By: #### L 506.0400, L500.4100, L501.9520, L501.73175, L500.2500 #### [facility] [address] [place], [address] ANTI-SS-B Normal [facility] Comment on above: Result Comment: ORDE RS EZXPIRED ON 10/15/24 Performed By: #### L 506.0400, L500.4100, L501.9520, L501.75304, L500.2500 #### [facility] [address] [place], [address] ANTICHROMATIN Normal [facility] Comment on above: Result Comment: ORDE RS EZXPIRED ON 10/15/24 Performed By: #### L 506.0400, L500.4100, L501.9520, L501.71809, L500.2500 #### [facility] [address] [place], [address] ANTISCLERODERM Normal [facility] Comment on above: Result Comment: ORDE RS EZXPIRED ON 10/15/24 Performed By: #### L 506.0400, L500.4100, L501.9520, L501.96241, L500.2500 #### [facility] [address] [place], [address] HEMATOLOGY SUPERVISOR Ab Normal [facility] Comment on above: Result Comment: ORDE RS EZXPIRED ON 10/15/24 Performed By: #### L 506.0400, L500.4100, L501.9520, L501.34893, L500.2500 #### [facility] [address] [place], [address] LAMB Ab Normal [facility] Comment on above: Result Comment: ORDE RS EZXPIRED ON 10/15/24 Performed By: #### L 506.0400, L500.4100, L501.9520, L501.71999, L500.2500 #### [facility] [address] [place], [address] CBC W/Diff, Automatedon 04-0 Absolute Neut Normal 2.0-7.7 [facility] Comment on above: Result Comment: ORDE RS EZXPIRED ON 10/15/24 Performed By: #### L 506.0400, L500.4100, L501.9520, L501.32545, L500.2500 #### [facility] [address] [place], [address] HCT Normal 37-47 [facility] Comment on above: Result Comment: ORDE RS EZXPIRED ON 10/15/24 Performed By: #### L 506.0400, L500.4100, L501.9520, L501.32530, L500.2500 #### [facility] [address] [place], [address] HGB Normal 12.0-15.0 [facility] Comment on above: Result Comment: ORDE RS EZXPIRED ON 10/15/24 Performed By: #### L 506.0400, L500.4100, L501.9520, L501.50797, L500.2500 #### [facility] [address] [place], [address] MCH Normal 27.0-32.0 [facility] Comment on above: Result Comment: ORDE RS EZXPIRED ON 10/15/24 Performed By: #### L 506.0400, L500.4100, L501.9520, L501.34927, L500.2500 #### [facility] [address] [place], [address] MCHC Normal 32-36 [facility] Comment on above: Result Comment: ORDE RS EZXPIRED ON 10/15/24 Performed By: #### L 506.0400, L500.4100, L501.9520, L501.43032, L500.2500 #### [facility] [address] [place], [address] MCV Normal 81-99 [facility] Comment on above: Result Comment: ORDE RS EZXPIRED ON 10/15/24 Performed By: #### L 506.0400, L500.4100, L501.9520, L501.65132, L500.2500 #### [facility] [address] [place], [address] NEUT% Normal 47-70 [facility] Comment on above: Result Comment: ORDE RS EZXPIRED ON 10/15/24 Performed By: #### L 506.0400, L500.4100, L501.9520, L501.50197, L500.2500 #### [facility] [address] [place], [address] PLT Normal 150-450 [facility] Comment on above: Result Comment: ORDE RS EZXPIRED ON 10/15/24 Performed By: #### L 506.0400, L500.4100, L501.9520, L501.17896, L500.2500 #### [facility] [address] [place], [address] RBC Normal 4.2-5.4 [facility] Comment on above: Result Comment: ORDE RS EZXPIRED ON 10/15/24 Performed By: #### L 506.0400, L500.4100, L501.9520, L501.52941, L500.2500 #### [facility] [address] [place], [address] RDW CV Normal 11.6-14.6 [facility] Comment on above: Result Comment: ORDE RS EZXPIRED ON 10/15/24 Performed By: #### L 506.0400, L500.4100, L501.9520, L501.94326, L500.2500 #### [facility] [address] [place], [address] RDW SD Normal 35.1-43.9 [facility] Comment on above: Result Comment: ORDE RS EZXPIRED ON 10/15/24 Performed By: #### L 506.0400, L500.4100, L501.9520, L501.91628, L500.2500 #### [facility] [address] [place], [address] WBC Normal 4.4-11.0 [facility] Comment on above: Result Comment: ORDE RS EZXPIRED ON 10/15/24 Performed By: #### L 506.0400, L500.4100, L501.9520, L501.63513, L500.2500 #### [facility] [address] [place], [address] Comprehensive Metabolic Prof ilon 12-06-2024 ALB Normal 3.5-5.0 [facility] Comment on above: Result Comment: ORDE RS EZXPIRED ON 10/15/24 Performed By: #### L 506.0400, L500.4100, L501.9520, L501.37129, L500.2500 #### [facility] [address] [place], [address] ALK PHOS Normal 35-104 [facility] Comment on above: Result Comment: ORDE RS EZXPIRED ON 10/15/24 Performed By: #### L 506.0400, L500.4100, L501.9520, L501.21387, L500.2500 #### [facility] [address] [place], [address] ALT Normal <=34 [facility] Comment on above: Result Comment: ORDE RS EZXPIRED ON 10/15/24 Performed By: #### L 506.0400, L500.4100, L501.9520, L501.77374, L500.2500 #### [facility] [address] [place], [address] AST Normal <=31 [facility] Comment on above: Result Comment: ORDE RS EZXPIRED ON 10/15/24 Performed By: #### L 506.0400, L500.4100, L501.9520, L501.70303, L500.2500 #### [facility] [address] [place], [address] BUN Normal 4-19 [facility] Comment on above: Result Comment: ORDE RS EZXPIRED ON 10/15/24 Performed By: #### L 506.0400, L500.4100, L501.9520, L501.21748, L500.2500 #### [facility] [address] [place], [address] BUN/CRE Normal 10-20 [facility] Comment on above: Result Comment: ORDE RS EZXPIRED ON 10/15/24 Performed By: #### L 506.0400, L500.4100, L501.9520, L501.35910, L500.2500 #### [facility] [address] [place], [address] Calcium Normal 7.6-11.0 [facility] Comment on above: Result Comment: ORDE RS EZXPIRED ON 10/15/24 Performed By: #### L 506.0400, L500.4100, L501.9520, L501.83341, L500.2500 #### [facility] [address] [place], [address] CL Normal 98-108 [facility] Comment on above: Result Comment: ORDE RS EZXPIRED ON 10/15/24 Performed By: #### L 506.0400, L500.4100, L501.9520, L501.83981, L500.2500 #### [facility] [address] [place], [address] CO2 Normal 21.0-32.0 [facility] Comment on above: Result Comment: ORDE RS EZXPIRED ON 10/15/24 Performed By: #### L 506.0400, L500.4100, L501.9520, L501.86700, L500.2500 #### [facility] [address] [place], [address] CREAT,SERUM Normal 0.70-1.20 [facility] Comment on above: Result Comment: ORDE RS EZXPIRED ON 10/15/24 Performed By: #### L 506.0400, L500.4100, L501.9520, L501.93234, L500.2500 #### [facility] [address] [place], [address] eGFR Normal >60 [facility] Comment on above: Result Comment: ORDE RS EZXPIRED ON 10/15/24 Performed By: #### L 506.0400, L500.4100, L501.9520, L501.56691, L500.2500 #### [facility] [address] [place], [address] GAP Normal 5-15 [facility] Comment on above: Result Comment: ORDE RS EZXPIRED ON 10/15/24 Performed By: #### L 506.0400, L500.4100, L501.9520, L501.22454, L500.2500 #### [facility] [address] [place], [address] GLU Normal 70-99 [facility] Comment on above: Result Comment: ORDE RS EZXPIRED ON 10/15/24 Performed By: #### L 506.0400, L500.4100, L501.9520, L501.91918, L500.2500 #### [facility] [address] [place], [address] Potassium Normal 3.3-5.1 [facility] Comment on above: Result Comment: ORDE RS EZXPIRED ON 10/15/24 Performed By: #### L 506.0400, L500.4100, L501.9520, L501.18580, L500.2500 #### [facility] [address] [place], [address] T BILI Normal 0.00-1.30 [facility] Comment on above: Result Comment: ORDE RS EZXPIRED ON 10/15/24 Performed By: #### L 506.0400, L500.4100, L501.9520, L501.74032, L500.2500 #### [facility] [address] [place], [address] T PROT Normal 5.9-8.4 [facility] Comment on above: Result Comment: ORDE RS EZXPIRED ON 10/15/24 Performed By: #### L 506.0400, L500.4100, L501.9520, L501.44317, L500.2500 #### [facility] [address] [place], [address] Comprehensive Metabolic Profil Normal 133-145 [facility] Comment on above: Result Comment: ORDE RS EZXPIRED ON 10/15/24 Performed By: #### L 506.0400, L500.4100, L501.9520, L501.58184, L500.2500 #### [facility] [address] [place], [address] Iron+Iron Binding Capacityon 12-06-2024 IRON Normal 50-170 [facility] Comment on above: Result Comment: ORDE RS EZXPIRED ON 10/15/24 Performed By: #### L 506.0400, L500.4100, L501.9520, L501.56336, L500.2500 #### [facility] [address] [place], [address] IRON SATURATION Normal 13-59 [facility] Comment on above: Result Comment: ORDE RS EZXPIRED ON 10/15/24 Performed By: #### L 506.0400, L500.4100, L501.9520, L501.92395, L500.2500 #### [facility] [address] [place], [address] TIBC Normal 250-450 [facility] Comment on above: Result Comment: ORDE RS EZXPIRED ON 10/15/24 Performed By: #### L 506.0400, L500.4100, L501.9520, L501.98245, L500.2500 #### [facility] [address] [place], [address] UIBC Normal 228-428 [facility] Comment on above: Result Comment: ORDE RS EZXPIRED ON 10/15/24 Performed By: #### L 506.0400, L500.4100, L501.9520, L501.85856, L500.2500 #### [facility] [address] [place], [address] Prothrombin Time w/INRon INR Coag (PPP) [Relative time] 13.8 {INR} Invalid Interpretation Code [facility] Comment on above: Order Comment: This critical result is preliminary and not confirmed. Venous sample sent to main laboratory for confirmation. A call with confirmation result will follow. See specimen #: for confirmation result. Preliminary critical result Call to/Read back by . 12/06/24 0831 IESHA. Result Comment: CRIT ICAL VALUE CALLED TO ESPERANZA VILLELA 12/06/24 0930 Danielle Gu. RESULTS READ BACK BY ESPERANZA VILLELA. Performed By: #### L 300.3900 #### [facility] [address] [place], [address] PT Coag (PPP) [Time] 105.9 s High 11.7-14.9 [facility] Comment on above: Order Comment: This critical result is preliminary and not confirmed. Venous sample sent to main laboratory for confirmation. A call with confirmation result will follow. See specimen #: for confirmation result. Preliminary critical result Call to/Read back by . 12/06/24 0831 CLAUDIA. Performed By: #### L 300.3900 #### [facility] [address] [place], [place], [address] Prothrombin timeOrdered By: Jasmyne Sparks on 12-06-2024 PT Coag (PPP) [Time] 105.9 s High 11.7-14.9 [facility] Protime w/INR Fingerstickon 11-09-2024 INR Coag (PPP) [Relative time] 4.5 {INR} Invalid Interpretation Code [facility] Comment on above: Result Comment: Crit ical Value > 4.0 Performed By: #### L 9200.0000 #### [facility] [address] [place], [place], [address] Protime Coagsen 43.9 SEC High 11.7-14.9 [facility] Comment on above: Performed By: #### L 9200.0000 #### [facility] [address] [place], [place], [address] 12 Lead EKG performed by [facility] on 11-05-2024 12 Lead EKG performed by [facility] [address] [place] [address] 12 Lead EKG performed by [facility] 11/05/24 1524 MR#: [id number] Acct: [id number] Name: DEE SHEPHERD Rep #: [id number] : 1970 53 From: Jasmyne Nowak Attending Dr: SAEID Jackson Status: DEP AMB Ordering Dr: Jasmyne Sparks Date: 03/25 Location: [facility] Sex: F C Admitted: BMS/12 Lead EKG performed by [facility] ECG Report Interpretation --Sinus Rhythm - Negative precordial T-waves -Probably normal -consider anteroseptal ischemia. PROBABLY NORMAL FOR AGEElectronically signed on 2024 at 15:31 by Luis Benavideswood Software Version 8610 11/08/24 1536 Date Jasmyne BREAUX CC: Dr. Sarai Watkins MD Date Dictated: 11/05/241523 Date Transcribed: 11/05/241523 Bias Cutter Helper: LLOYD Signed Normal [facility] Cardiology Visit Reporton Cardiology Visit Report [facility] [place] [address] OFFICE VISIT Date of Service: 11/05/24 MR#: [id number] Acct: [id number] Name: DEE SHEPHERD Rep #: [id number] : 1970 Provider: SAEID Begum Age/Sex: 53/F Location: [facility] Status: Signed HPI HPI History of Present Illness Details: DEE SHEPHERD, is a 53 F that presents here today for a cardiovascular follow-up. She has a history of paroxysmal atrial fibrillation, severe pulmonary hypertension, hypertension, previous pulmonary embolism in 2016, tobacco abuse, anemia and obesity. She did have her large hiatal hernia repair done in December of 2020. She presented to [facility] on 05/16/2022 for palpitations, chest heaviness. She was noted to be in atrial fibrillation with RVR. During that hospitalization it was noted that she had resumed EtOH use and had not been compliant with her medications. The initial plan was to proceed with a MABEL cardioversion however patient left AMA prior to proceeding with this. She then presented back to the hospital on May 21, 2022 for near syncope. A MABEL was performed on 05/23/2022 and showed an EF of 40% with mild to moderate global hypokinesis of the left ventricle and moderate global right ventricular systolic dysfunction and dilation.??? She had a patent foramen ovale and the left atrium is moderately enlarged.??? She was also noted to have a small pericardial effusion at that time.??? No clots were noted and therefore she was taken for cardioversion with successful synchronized cardioversion into normal sinus rhythm.??? She was discharged home on amiodarone 200 mg twice a day, Eliquis 5 mg twice a day, metoprolol 100 mg twice a day. Her losartan and hydrochlorothiazide were held due to her renal insufficiency. She was switched back to her flecainide. Her metoprolol has been decreased. Repeat echocardiogram in 2022 demonstrated and improved EF of 55-60%. She was in the hospital in 06/2023 for Acute CHF. Patient was hospitalized on September 27, 2023 for acute congestive heart failure with preserved ejection fraction. Echocardiogram demonstrated an ejection fraction of 55% with mildly enlarged left atrium, diastolic dysfunction was unable to be assessed. Patient was started on diuretic therapy. She is still having swelling in her legs at the end of the day. She does not take her lasix routinely during the week. She is concerned about her renal function. It is difficult for her to put on support stockings. She is working with pulmonary for her PHTN. She does have questions for her eliquis, she has switched insurances. She is now working. Her legs are swollen from sitting, in the morning they have improved. She is having issues with her husbands health. Intake Vital Signs 09/27/24 15:31 11/05/24 07:53 Height 5 ft 7 in 5 ft 7 in Weight: 272 lb BMI 42.5 BP 124/82 H Blood Pressure Location Lt brachial Position Sitting Respiration 18 Pulse 62 Pulse Source Monitor Pulse Oximetry (%) 6 Intake Visit Reasons: S/P 09/28 CHF Sales And Service Representative Required: No Is patient in pain?: No Allergies doxycycline Allergy (Verified 11/05/24 15:42) Hives hydrocodone (From Vicodin) Adverse Reaction (Verified 11/05/24 15:42) Itching Medications ???Medication ???Instructions ???Recorded ???Confirmed ???Type rosuvastatin 5 mg tablet (Crestor) 10 mg PO DAILY cholesterol 06/1809/27/24 History acetaminophen 500 mg tablet 1,000 mg PO DAILY PRN Pain 1-10 Or 08/01/20 09/27/24 History Fever cholecalciferol (vitamin D3) 10 4,000 unit PO DAILY supplement 09/2009/27/24 History mcg (400 unit) capsule folic acid 1 mg tablet 1 mg PO DAILY supplement 08/01/20 11/05/24 History sildenafil (pulm.hypertension) 20 40 mg PO TID pulmonary HTN 11/05/24 History mg tablet fluticasone fur. 100 mcg-umeclid 1 inh inhalation DAILY COPD 09/27/24 History 62.5 mcg-vilant 25 mcg inhalat.powder (Trelegy Ellipta) bupropion HCl 300 mg 24 hr tablet, 300 mg PO DAILY mood 05/16/22 History extended release hydroxychloroquine 200 mg tablet 400 mg (2 x 200 mg) PO DAILY 06/1309/27/24 Rx (Plaquenil) arthritis #1 TAB albuterol sulfate 90 mcg/actuation 2 inh inhalation Q4H PRN shortne ss 06/24/23 09/27/24 History breath activated powder inhaler of breath naltrexone 50 mg tablet 50 mg PO DAILY 08/29/23 11/05/24 H istory flecainide 50 mg tablet 50 mg PO Q12H #180 tabs 01/14/24 0 11/05/24 Rx ursodiol 300 mg capsule 300 mg PO BID heart 90 days #180 0 01/19/24 11/05/24 Rx caps pantoprazole 40 mg tablet,delayed 40 mg PO QAM acid reflux 1 month 09/16/24 09/27/24 Rx release #30 tabs metoprolol tartrate 25 mg tablet 25 mg PO Q12H high blood pressure 09/27 (more content not included)... Normal [facility] INR Coag (BldC) [Relative ti me]Ordered By: Jasmyne Sparks on 11-05-2024 INR Coag (Bld) [Relative time] 4.5 {INR} High [facility] Comment on above: Critical Value > 4.0 International normalized rat io (INR) measurement by fingerstickOrdered By: Jasmyne Sparks on 11-05-2024 INR Coag (BldC) [Relative time] 4.5 High [facility] Comment on above: Critical Value > 4.0 PT Coag (Bld) [Time]Ordered By: Jasmyne Sparks on 11-05-2024 Bedside Prothrombin Time 43.9 SEC High 11.7-14.9 [facility] Prothrombin Time w/INRon INR Coag (PPP) [Relative time] 4.1 {INR} Invalid Interpretation Code [facility] Comment on above: Order Comment: CRITICAL VALUE CALLED TO DR. JYOTSNA TOMLIN 11/05/241914 Judy Darden. RESULTS READ BACK BY SAME. Result Comment: FING ERSTICK Performed By: #### L 300.3900 #### [facility] [address] [place], [address] PT Coag (PPP) [Time] 40.4 s High 11.7-14.9 [facility] Comment on above: Order Comment: CRITICAL VALUE CALLED TO DR. JYOTSNA TOMLIN 11/05/241914 Judy Darden. RESULTS READ BACK BY SAME. Result Comment: FING ERSTICK Performed By: #### L 300.3900 #### [facility] [address] [place], [address] Prothrombin timeOrdered By: Jasmyne Sparks on 11-05-2024 PT Coag (PPP) [Time] 40.4 s High 11.7-14.9 [facility] Whole blood prothrombin time Ordered By: Jasmyne Sparks on 11-05-2024 PT Coag (Bld) [Time] 43.9 s High 11.7-14.9 [facility] Basic Metabolic Profile (BMP )on 10-18-2024 BUN/CRE 26.2 RATIO High 10-20 [facility] Comment on above: Performed By: #### L 506.0400, L500.4100, L501.9520, L501.69918, L500.2500 #### [facility] [address] [place], [address] CA,Total 8.9 mg/dL Normal 8.5-10.1 [facility] Comment on above: Performed By: #### L 506.0400, L500.4100, L501.9520, L501.23416, L500.2500 #### [facility] [address] [place], [address] Chloride [Moles/Vol] 101 mmol/L Normal 98-107 [facility] Comment on above: Performed By: #### L 506.0400, L500.4100, L501.9520, L501.93367, L500.2500 #### [facility] [address] [place], [address] CO2 [Moles/Vol] 22.0 mmol/L Normal 21.0-32.0 [facility] Comment on above: Performed By: #### L 506.0400, L500.4100, L501.9520, L501.32622, L500.2500 #### [facility] [address] [place], [address] Creatinine [Mass/Vol] 1.30 mg/dL High 0.55-1.02 [facility] Comment on above: Result Comment: The validity of the calculated GFR GFRAA in patients over 70 years has not been determined. Clinical correlation is essential. Performed By: #### L 506.0400, L500.4100, L501.9520, L501.89467, L500.2500 #### [facility] [address] [place], [address] EST GFR - AA 55 mL/min Low >60 [facility] Comment on above: Result Comment: Afri can Kenyan GFR Calc Performed By: #### L 506.0400, L500.4100, L501.9520, L501.03112, L500.2500 #### [facility] [address] [place], [address] GAP 13 Normal 5-15 [facility] Comment on above: Performed By: #### L 506.0400, L500.4100, L501.9520, L501.40236, L500.2500 #### [facility] [address] [place], [address] GFR/1.73 sq M.predicted among non-blacks MDRD (S/P/Bld) [Vol rate/Area] 45 mL/min/{1.73_m2} Low >60 [facility] Comment on above: Result Comment: Non- GFR Calc Performed By: #### L 506.0400, L500.4100, L501.9520, L501.35634, L500.2500 #### [facility] [address] [place], [address] Glucose [Mass/Vol] 100 mg/dL Normal 74-106 [facility] Comment on above: Result Comment: Fast ing Glucose result from 100 to 125 mg/dL suggests IMPAIRED HOMEOSTASIS per A.D.A. criteria. Performed By: #### L 506.0400, L500.4100, L501.9520, L501.07660, L500.2500 #### [facility] [address] [place], [address] Potassium [Moles/Vol] 3.6 mmol/L Normal 3.5-5.1 [facility] Comment on above: Performed By: #### L 506.0400, L500.4100, L501.9520, L501.60216, L500.2500 #### [facility] [address] [place], [address] Sodium [Moles/Vol] 136 mmol/L Normal 136-145 [facility] Comment on above: Performed By: #### L 506.0400, L500.4100, L501.9520, L501.81560, L500.2500 #### [facility] [address] [place], [address] Urea nitrogen [Mass/Vol] 34 mg/dL High 7-18 [facility] Comment on above: Performed By: #### L 506.0400, L500.4100, L501.9520, L501.93493, L500.2500 #### [facility] [address] [place], [place], [address] Blood urea nitrogen (BUN)/cr eatinine ratioOrdered By: Sarai Watkins on 10-18-2024 Urea nitrogen/Creatinine [Mass ratio] 26.2 mg/mg High 10-20 [facility] Carbon dioxide measurementOr dered By: Sarai Watkins on 10-18-2024 CO2 [Moles/Vol] 22.0 mmol/L 21.0-32.0 [facility] Chloride measurementOrdered By: Sarai Waktins on 10-18-2024 Chloride [Moles/Vol] 101 mmol/L 98-107 [facility] Direct serum free thyroxine (FT4) measurementOrdered By: Sarai Watkins on 10-18-2024 Free T4 [Mass/Vol] 1.04 ng/dL 0.76-1.46 [facility] Estimated glomerular filtrat ion rate (GFR) AmericanOrdered By: Sarai Watkins on 10-18-2024 Estimated GFR (MDRD) Amer 55 mL/min Low >60 [facility] Comment on above: GFR Calc Free T3on 10-18-2024 Free T3 [Mass/Vol] 2.9 pg/mL Normal 2.18-3.98 [facility] Comment on above: Performed By: #### L 506.0400, L500.4100, L501.9520, L501.69384, L500.2500 #### [facility] [address] [place], [place], [address] Free V5Ogwnszt By: Sarai wood on 10-18-2024 Free T3 [Mass/Vol] 2.9 pg/mL 2.18-3.98 [facility] Free Triiodothyronine (T3) pg/dL 2.9 pg/mL 2.18-3.98 [facility] Glomerular filtration rate ( GFR) estimationOrdered By: Sarai Watkins on 10-18-2024 Estimated GFR (MDRD) Non-Af Amer 45 mL/min Low >60 [facility] Comment on above: Non- GFR Calc GFR/1.73 sq M.predicted among non-blacks MDRD (S/P/Bld) [Vol rate/Area] 45 mL/min/{1.73_m2} Low >60 [facility] Comment on above: Non- GFR Calc Glucose measurementOrdered B y: Sarai Watkins on 10-18-2024 Glucose [Mass/Vol] 100 mg/dL 74-106 [facility] Comment on above: Fasting Glucose resu lt from 100 to 125 mg/dL suggests IMPAIRED HOMEOSTASIS per A.D.A. criteria. High density lipoprotein (HD L) measurementOrdered By: Sarai Watkins on 10-18-2024 Cholesterol in HDL [Mass/Vol] 126 mg/dL >40 [facility] Comment on above: The drugs N-Acetylcy steine and Metamizole may falsely depress this assay. Reference Range HDL <40 mg/dL Low HDL Cholesterol HDL >or= 60 mg/dL High HDL Cholesterol International normalized rat io (INR) calculationOrdered By: Luis Benavides on 10-18-2024 INR Coag (Bld) [Relative time] 2.0 {INR} [facility] Lipid Profileon 10-18-2024 Cholesterol [Mass/Vol] 209 mg/dL High 200 [facility] Comment on above: Result Comment: <200 mg/dL Desirable 200-240 mg/dL Borderline >240 mg/dL High Risk Performed By: #### L 506.0400, L500.4100, L501.9520, L501.35618, L500.2500 #### [facility] [address] [facility] [place], [address] Cholesterol in HDL [Mass/Vol] 126 mg/dL Normal [facility] Comment on above: Result Comment: The drugs N-Acetylcysteine and Metamizole may falsely depress this assay. Reference Range HDL <40 mg/dL Low HDL Cholesterol HDL >or= 60 mg/dL High HDL Cholesterol Performed By: #### L 506.0400, L500.4100, L501.9520, L501.11390, L500.2500 #### [facility] [address] [place], [address] Cholesterol in LDL [Mass/Vol] 58 mg/dL Normal 0-130 [facility] Comment on above: Performed By: #### L 506.0400, L500.4100, L501.9520, L501.77455, L500.2500 #### [facility] [address] [place], [address] Cholesterol in VLDL [Mass/Vol] 25 mg/dL Normal 5-40 [facility] Comment on above: Performed By: #### L 506.0400, L500.4100, L501.9520, L501.04680, L500.2500 #### [facility] [address] [place], [address] Triglyceride [Mass/Vol] 126 mg/dL Normal [facility] Comment on above: Result Comment: The drugs N-Acetylcysteine and Metamizole may falsely depress this assay. Serum Triglycerides Reference Interval Normal <150 mg/dL Borderline high 150 - 199 mg/dL High 200 - 499 mg/dL Very High > or = 500 mg/dL Performed By: #### L 506.0400, L500.4100, L501.9520, L501.30953, L500.2500 #### [facility] [address] [place], [address] Low density lipoprotein (LDL ) cholesterol measurementOrdered By: Sarai Watkins on 10-18-2024 Cholesterol in LDL [Mass/Vol] 58 mg/dL 0-130 [facility] Potassium measurementOrdered By: Sarai Watkins on 10-18-2024 Potassium [Moles/Vol] 3.6 mmol/L 3.5-5.1 [facility] Prothrombin Time w/INRon INR Coag (PPP) [Relative time] 2.0 {INR} Normal [facility] Comment on above: Order Comment: Comme nts: STANDING ORDER: FINGERSTICK IS OK Fax to [phone] Performed By: #### L 506.0400, L500.4100, L501.9520, L501.49404, L500.2500 #### [facility] [address] [facility] [place], [address] PT Coag (PPP) [Time] 23.5 s High 11.7-14.9 [facility] Comment on above: Order Comment: Comme nts: STANDING ORDER: FINGERSTICK IS OK Fax to [phone] Performed By: #### L 506.0400, L500.4100, L501.9520, L501.10129, L500.2500 #### [facility] [address] [facility] [place], [place], [address] Prothrombin timeOrdered By: Luis Benavides on 10-18-2024 PT Coag (PPP) [Time] 23.5 s High 11.7-14.9 [facility] Serum anion gap measurementO rdered By: Sarai Watkins on 10-18-2024 Anion gap [Moles/Vol] 13 mmol/L 5-15 [facility] Serum or plasma calcium otoniel urement (mass/volume)Ordered By: Sarai Watkins on 10-18-2024 Calcium [Mass/Vol] 8.9 mg/dL 8.5-10.1 [facility] Serum or plasma cholesterol measurement (mass/volume)Ordered By: Sarai Watkins on 10-18-2024 Cholesterol [Mass/Vol] 209 mg/dL High <200 [facility] Comment on above: <200 mg/dL Desirable 200-240 mg/dL Borderline >240 mg/dL High Risk Serum or plasma creatinine m easurement (mass/volume)Ordered By: Sarai Watkins on 10-18-2024 Creatinine [Mass/Vol] 1.30 mg/dL High 0.55-1.02 [facility] Comment on above: The validity of the calculated GFR & GFRAA in patients over 70 years has not been determined. Clinical correlation is essential. Serum or plasma thyroid stim ulating hormone (TSH) measurement (units/volume)Ordered By: Sarai Watkins on 10-18-2024 TSH Qn 2.960 uIU/mL 0.358-3.740 [facility] Serum or plasma urea nitroge n measurement (mass/volume)Ordered By: Sarai Watkins on 10-18-2024 Urea nitrogen [Mass/Vol] 34 mg/dL High 7-18 [facility] Sodium levelOrdered By: Sarai Watkins on 10-18-2024 Sodium [Moles/Vol] 136 mmol/L 136-145 [facility] T4 Free Directon 10-18-2024 T4 FREE DIRECT 1.04 ng/dL Normal 0.76-1.46 [facility] Comment on above: Performed By: #### L 506.0400, L500.4100, L501.9520, L501.00867, L500.2500 #### [facility] [address] [place], [place], [id number] TSH QnOrdered By: Sarai long on 10-18-2024 Thyroid Stimulating Hormone (TSH) 2.960 uIU/mL 0.358-3.740 [facility] Thyroid Stim Hormone (TSH)on 10-18-2024 TSH 2.960 uIU/mL Normal 0.358-3.740 [facility] Comment on above: Performed By: #### L 506.0400, L500.4100, L501.9520, L501.38440, L500.2500 #### [facility] [address] [place], [place], [address] Triglycerides measurementOrd ered By: Sarai Watkins on 10-18-2024 Triglyceride [Mass/Vol] 126 mg/dL <199 [facility] Comment on above: The drugs N-Acetylcy steine and Metamizole may falsely depress this assay.Serum Triglycerides Reference Interval Normal <150 mg/dL Borderline high 150 - 199 mg/dL High 200 - 499 mg/dL Very High > or = 500 mg/dL Very low density lipoprotein (VLDL) cholesterol measurementOrdered By: Sarai Watkins on 10-18-2024 Very low density lipoprotein (VLDL) cholesterol measurement 25 mg/dL 5-40 [facility] VLDL Cholesterol 25 mg/dL 5-40 [facility] Calprotectin, Stoolon [address] 34 ug/g Normal 0-120 [facility] Comment on above: Order Comment: Test( s) [id number], Neutral; [id number], Totalwas developed and its performance characteristicsdetermined by [employer]. It has not been cleared or approvedby the Food and Drug Administration. Result Comment: Conc entration Interpretation Follow-Up < 5 - 50 ug/g Normal None >50 -120 ug/g Borderline Re-evaluate in 4-6 weeks >120 ug/g Abnormal Repeat as clinically indicated Performed at: [address] [id number] State Archivist: Barrington Iraheta PhD, Phone: [phone] Performed at: [address] [id number] State Archivist: Angeles Garsia MD, Phone: [phone] Performed By: #### L 506.0400, L500.4100, L501.9520, L501.52565, L500.2500 #### [facility] [address] [place], [address] Fecal Fat, Qualitativeon FATS, NEUTRAL Normal Normal . [facility] Comment on above: Order Comment: Test( s) [id number]-Mhjk, Neutral; [id number]-Xmlo, Totalwas developed and its performance characteristicsdetermined by [employer]. It has not been cleared or approvedby the Food and Drug Administration. Result Comment: Norm al (<60 Droplets/HPF) Performed By: #### L 506.0400, L500.4100, L501.9520, L501.24907, L500.2500 #### [facility] [address] [place], [address] FATS, TOTAL Normal Normal . [facility] Comment on above: Order Comment: Test( s) [id number]-Kvja, Neutral; [id number]-Pegu, Totalwas developed and its performance characteristicsdetermined by [employer]. It has not been cleared or approvedby the Food and Drug Administration. Result Comment: Norm al (<100 Droplets/HPF) Performed By: #### L 506.0400, L500.4100, L501.9520, L501.95313, L500.2500 #### [facility] [address] [place], [address] L7000.0750on 10-01-2024 P ELASTASE,FECA > 800 Normal >200 [facility] Comment on above: Result Comment: Resu lt Units: ug Elast./g Severe Pancreatic Insufficiency: <100 Moderate Pancreatic Insufficiency: 100 - 200 Normal: >200 Performed at: [facility] [id number] State Archivist: Angeles Garsia MD, Phone: [phone] Performed By: #### L 506.0400, L500.4100, L501.9520, L501.84136, L500.2500 #### [facility] [address] [place], [address] Basic Metabolic Profile (BMP )on 09-30-2024 BUN Normal 7-18 [facility] Comment on above: Result Comment: Canc elled via OM: Order cancelled - Patient discharged Performed By: #### L 300.3900 #### [facility] [address] [place], [address] BUN/CRE Normal 10-20 [facility] Comment on above: Result Comment: Canc elled via OM: Order cancelled - Patient discharged Performed By: #### L 300.3900 #### [facility] [address] [place], [address] CA,Total Normal 8.5-10.1 [facility] Comment on above: Result Comment: Canc elled via OM: Order cancelled - Patient discharged Performed By: #### L 300.3900 #### [facility] [address] [place], [address] CL Normal 98-107 [facility] Comment on above: Result Comment: Canc elled via OM: Order cancelled - Patient discharged Performed By: #### L 300.3900 #### [facility] [address] [place], [address] CO2 Normal 21.0-32.0 [facility] Comment on above: Result Comment: Canc elled via OM: Order cancelled - Patient discharged Performed By: #### L 300.3900 #### [facility] [address] [place], [address] CREAT,SERUM Normal 0.55-1.02 [facility] Comment on above: Result Comment: Canc elled via OM: Order cancelled - Patient discharged Performed By: #### L 300.3900 #### [facility] [address] [place], [address] EST GFR Normal >60 [facility] Comment on above: Result Comment: Canc elled via OM: Order cancelled - Patient discharged Performed By: #### L 300.3900 #### [facility] [address] [place], [address] EST GFR - AA Normal >60 [facility] Comment on above: Result Comment: Canc elled via OM: Order cancelled - Patient discharged Performed By: #### L 300.3900 #### [facility] [address] [place], [address] GAP Normal 5-15 [facility] Comment on above: Result Comment: Canc elled via OM: Order cancelled - Patient discharged Performed By: #### L 300.3900 #### [facility] [address] [place], [address] GLU Normal 74-106 [facility] Comment on above: Result Comment: Canc elled via OM: Order cancelled - Patient discharged Performed By: #### L 300.3900 #### [facility] [address] [place], [address] Potassium Normal 3.5-5.1 [facility] Comment on above: Result Comment: Canc elled via OM: Order cancelled - Patient discharged Performed By: #### L 300.3900 #### [facility] [address] [place], [address] Basic Metabolic Profile (BMP) Normal 136-145 [facility] Comment on above: Result Comment: Canc elled via OM: Order cancelled - Patient discharged Performed By: #### L 300.3900 #### [facility] [address] [place], [address] CBC W/Diff, Automatedon -3 -2024 Absolute Neut Normal 2.0-7.7 [facility] Comment on above: Result Comment: Canc elled via OM: Order cancelled - Patient discharged Performed By: #### L 300.3900 #### [facility] [address] [place], [address] HCT Normal 37-47 [facility] Comment on above: Result Comment: Canc elled via OM: Order cancelled - Patient discharged Performed By: #### L 300.3900 #### [facility] [address] [place], [address] HGB Normal 12.0-15.0 [facility] Comment on above: Result Comment: Canc elled via OM: Order cancelled - Patient discharged Performed By: #### L 300.3900 #### [facility] [address] [place], [address] MCH Normal 27.0-32.0 [facility] Comment on above: Result Comment: Canc elled via OM: Order cancelled - Patient discharged Performed By: #### L 300.3900 #### [facility] [address] [place], [address] MCHC Normal 32-36 [facility] Comment on above: Result Comment: Canc elled via OM: Order cancelled - Patient discharged Performed By: #### L 300.3900 #### [facility] [address] [place], [address] MCV Normal 81-99 [facility] Comment on above: Result Comment: Canc elled via OM: Order cancelled - Patient discharged Performed By: #### L 300.3900 #### [facility] [address] [place], [address] NEUT% Normal 47-70 [facility] Comment on above: Result Comment: Canc elled via OM: Order cancelled - Patient discharged Performed By: #### L 300.3900 #### [facility] [address] [place], [address] PLT Normal 150-450 [facility] Comment on above: Result Comment: Canc elled via OM: Order cancelled - Patient discharged Performed By: #### L 300.3900 #### [facility] [address] [place], [address] RBC Normal 4.2-5.4 [facility] Comment on above: Result Comment: Canc elled via OM: Order cancelled - Patient discharged Performed By: #### L 300.3900 #### [facility] [address] [place], [address] RDW CV Normal 11.6-14.6 [facility] Comment on above: Result Comment: Canc elled via OM: Order cancelled - Patient discharged Performed By: #### L 300.3900 #### [facility] [address] [place], [address] RDW SD Normal 35.1-43.9 [facility] Comment on above: Result Comment: Canc elled via OM: Order cancelled - Patient discharged Performed By: #### L 300.3900 #### [facility] [address] [place], [address] WBC Normal 4.4-11.0 [facility] Comment on above: Result Comment: Canc elled via OM: Order cancelled - Patient discharged Performed By: #### L 300.3900 #### [facility] [address] [place], [address] Prothrombin Time w/INRon INR Normal [facility] Comment on above: Result Comment: Canc elled via OM: Order cancelled - Patient discharged Performed By: #### L 300.3900 #### [facility] [address] [place], [address] PROTIME Normal 11.7-14.9 [facility] Comment on above: Result Comment: Canc elled via OM: Order cancelled - Patient discharged Performed By: #### L 300.3900 #### [facility] [address] [place], [address] Absolute neutrophil countOrd ered By: Henrik Werner on 09-29-2024 Neutrophils (Bld) [#/Vol] 3.2 10*3/uL 2.0-7.7 [facility] Basic Metabolic Profile (BMP )on 09-29-2024 BUN/CRE 15.6 RATIO Normal 10-20 [facility] Comment on above: Performed By: #### L 500.2500 #### [facility] [address] [place], [address] CA,Total 8.7 mg/dL Normal 8.5-10.1 [facility] Comment on above: Performed By: #### L 500.2500 #### [facility] [address] [place], [address] Chloride [Moles/Vol] 101 mmol/L Normal 98-107 [facility] Comment on above: Performed By: #### L 500.2500 #### [facility] [address] [place], [address] CO2 [Moles/Vol] 25.0 mmol/L Normal 21.0-32.0 [facility] Comment on above: Performed By: #### L 500.2500 #### [facility] [address] [place], [address] Creatinine [Mass/Vol] 1.79 mg/dL High 0.55-1.02 [facility] Comment on above: Result Comment: The validity of the calculated GFR GFRAA in patients over 70 years has not been determined. Clinical correlation is essential. Performed By: #### L 500.2500 #### [facility] [address] [place], [address] ECRCL 48.39 ml/min Normal [facility] Comment on above: Performed By: #### L 500.2500 #### [facility] [address] [place], [address] EST GFR - AA 38 mL/min Low >60 [facility] Comment on above: Result Comment: Afri can Kenyan GFR Calc Performed By: #### L 500.2500 #### [facility] [address] [place], [address] GAP 11 Normal 5-15 [facility] Comment on above: Performed By: #### L 500.2500 #### [facility] [address] [place], [address] GFR/1.73 sq M.predicted among non-blacks MDRD (S/P/Bld) [Vol rate/Area] 31 mL/min/{1.73_m2} Low >60 [facility] Comment on above: Result Comment: Non- GFR Calc Performed By: #### L 500.2500 #### [facility] [address] [place], [address] Glucose [Mass/Vol] 148 mg/dL High 74-106 [facility] Comment on above: Result Comment: Fast ing Glucose result greater than or equal to 126 mg/dL suggests DIABETES MELLITUS per A.D.A. criteria. Performed By: #### L 500.2500 #### [facility] [address] [place], [address] Potassium [Moles/Vol] 3.9 mmol/L Normal 3.5-5.1 [facility] Comment on above: Performed By: #### L 500.2500 #### [facility] [address] [place], [address] Sodium [Moles/Vol] 137 mmol/L Normal 136-145 [facility] Comment on above: Performed By: #### L 500.2500 #### [facility] [address] [place], [address] Urea nitrogen [Mass/Vol] 28 mg/dL High 7-18 [facility] Comment on above: Performed By: #### L 500.2500 #### [facility] [address] [place], [address] BUN/CRE 16.8 RATIO Normal 10-20 [facility] Comment on above: Performed By: #### L 506.0400, L500.4100, L501.9520, L501.67037, L500.2500 #### [facility] [address] [place], [address] CA,Total 8.6 mg/dL Normal 8.5-10.1 [facility] Comment on above: Performed By: #### L 506.0400, L500.4100, L501.9520, L501.71693, L500.2500 #### [facility] [address] [place], [address] Chloride [Moles/Vol] 99 mmol/L Normal 98-107 [facility] Comment on above: Performed By: #### L 506.0400, L500.4100, L501.9520, L501.76903, L500.2500 #### [facility] [address] [place], [address] CO2 [Moles/Vol] 28.0 mmol/L Normal 21.0-32.0 [facility] Comment on above: Performed By: #### L 506.0400, L500.4100, L501.9520, L501.65229, L500.2500 #### [facility] [address] [place], [address] Creatinine [Mass/Vol] 1.61 mg/dL High 0.55-1.02 [facility] Comment on above: Result Comment: The validity of the calculated GFR GFRAA in patients over 70 years has not been determined. Clinical correlation is essential. Performed By: #### L 506.0400, L500.4100, L501.9520, L501.97020, L500.2500 #### [facility] [address] [place], [address] ECRCL 53.80 ml/min Normal [facility] Comment on above: Performed By: #### L 506.0400, L500.4100, L501.9520, L501.96309, L500.2500 #### [facility] [address] [place], [address] EST GFR - AA 43 mL/min Low >60 [facility] Comment on above: Result Comment: Afri can Kenyan GFR Calc Performed By: #### L 506.0400, L500.4100, L501.9520, L501.12704, L500.2500 #### [facility] [address] [place], [address] GAP 10 Normal 5-15 [facility] Comment on above: Performed By: #### L 506.0400, L500.4100, L501.9520, L501.59532, L500.2500 #### [facility] [address] [place], [address] GFR/1.73 sq M.predicted among non-blacks MDRD (S/P/Bld) [Vol rate/Area] 35 mL/min/{1.73_m2} Low >60 [facility] Comment on above: Result Comment: Non- GFR Calc Performed By: #### L 506.0400, L500.4100, L501.9520, L501.28051, L500.2500 #### [facility] [address] [place], [address] Glucose [Mass/Vol] 107 mg/dL High 74-106 [facility] Comment on above: Result Comment: Fast ing Glucose result from 100 to 125 mg/dL suggests IMPAIRED HOMEOSTASIS per A.D.A. criteria. Performed By: #### L 506.0400, L500.4100, L501.9520, L501.79383, L500.2500 #### [facility] [address] [place], [address] Potassium [Moles/Vol] 3.4 mmol/L Low 3.5-5.1 [facility] Comment on above: Performed By: #### L 506.0400, L500.4100, L501.9520, L501.23076, L500.2500 #### [facility] [address] [place], [address] Sodium [Moles/Vol] 137 mmol/L Normal 136-145 [facility] Comment on above: Performed By: #### L 506.0400, L500.4100, L501.9520, L501.81261, L500.2500 #### [facility] [address] [place], [address] Urea nitrogen [Mass/Vol] 27 mg/dL High 7-18 [facility] Comment on above: Performed By: #### L 506.0400, L500.4100, L501.9520, L501.89325, L500.2500 #### [facility] [address] [place], [address] Basophil percentageOrdered B y: Henrik Werner on 09-29-2024 Basophils/100 WBC (Bld) 0.8 % 0-1 [facility] Blood urea nitrogen (BUN)/cr eatinine ratioOrdered By: Ike Gibbs on 09-29-2024 Urea nitrogen/Creatinine [Mass ratio] 15.6 mg/mg 10-20 [facility] CBC W/Diff, Automatedon 09-02 Absolute Lymph 0.67 X10 3/uL Low 0.83-4.51 [facility] Comment on above: Performed By: #### L 506.0400, L500.4100, L501.9520, L501.49368, L500.2500 #### [facility] [address] [place], [address] Absolute Neut 3.2 X10 3/uL Normal 2.0-7.7 [facility] Comment on above: Performed By: #### L 506.0400, L500.4100, L501.9520, L501.70787, L500.2500 #### [facility] [address] [place], [address] Basophils/100 WBC (Bld) 0.8 % Normal 0-1 [facility] Comment on above: Performed By: #### L 506.0400, L500.4100, L501.9520, L501.45660, L500.2500 #### [facility] [address] [place], [address] Eosinophils/100 WBC (Bld) 4.0 % Normal 0-5 [facility] Comment on above: Performed By: #### L 506.0400, L500.4100, L501.9520, L501.56338, L500.2500 #### [facility] [address] [place], [address] Erythrocyte distribution width (RBC) [Ratio] 13.4 % Normal 11.6-14.6 [facility] Comment on above: Performed By: #### L 506.0400, L500.4100, L501.9520, L501.57062, L500.2500 #### [facility] [address] [place], [address] Hematocrit (Bld) [Volume fraction] 37.9 % Normal 37-47 [facility] Comment on above: Performed By: #### L 506.0400, L500.4100, L501.9520, L501.51002, L500.2500 #### [facility] [address] [place], [address] Hemoglobin (Bld) [Mass/Vol] 12.0 g/dL Normal 12.0-15.0 [facility] Comment on above: Performed By: #### L 506.0400, L500.4100, L501.9520, L501.77964, L500.2500 #### [facility] [address] [place], [address] IG% 1.000 High 0.0-0.9 [facility] Comment on above: Result Comment: IG% - Immature Granulocytes (promyelocytes, myelocytes and metamyelocytes) > 1% indicates that a LEFT SHIFT is Present. Performed By: #### L 506.0400, L500.4100, L501.9520, L501.92853, L500.2500 #### [facility] [address] [place], [address] Lymphocytes/100 WBC (Bld) 14.0 % Low 19-41 [facility] Comment on above: Performed By: #### L 506.0400, L500.4100, L501.9520, L501.84840, L500.2500 #### [facility] [address] [place], [address] MCH (RBC) [Entitic mass] 30.7 pg Normal 27.0-32.0 [facility] Comment on above: Performed By: #### L 506.0400, L500.4100, L501.9520, L501.74756, L500.2500 #### [facility] [address] [place], [address] MCHC (RBC) [Mass/Vol] 31.7 g/dL Low 32-36 [facility] Comment on above: Performed By: #### L 506.0400, L500.4100, L501.9520, L501.54487, L500.2500 #### [facility] [address] [place], [address] MCV (RBC) [Entitic vol] 96.9 fL Normal 81-99 [facility] Comment on above: Performed By: #### L 506.0400, L500.4100, L501.9520, L501.97199, L500.2500 #### [facility] [address] [place], [address] Monocytes/100 WBC (Bld) 13.6 % High 0-10 [facility] Comment on above: Performed By: #### L 506.0400, L500.4100, L501.9520, L501.63781, L500.2500 #### [facility] [address] [place], [address] Neutrophils/100 WBC (Bld) 66.6 % Normal 47-70 [facility] Comment on above: Performed By: #### L 506.0400, L500.4100, L501.9520, L501.77921, L500.2500 #### [facility] [address] [place], [address] Nucleated RBC (Bld) [#/Vol] 0 10*3/uL Normal 0-5 [facility] Comment on above: Performed By: #### L 506.0400, L500.4100, L501.9520, L501.20614, L500.2500 #### [facility] [address] [place], [address] Platelet mean volume (Bld) [Entitic vol] 9.3 fL Normal 6.2-12.0 [facility] Comment on above: Performed By: #### L 506.0400, L500.4100, L501.9520, L501.23089, L500.2500 #### [facility] [address] [place], [address] Platelets (Bld) [#/Vol] 191 10*3/uL Normal 150-450 [facility] Comment on above: Performed By: #### L 506.0400, L500.4100, L501.9520, L501.62952, L500.2500 #### [facility] [address] [place], [address] RBC (Bld) [#/Vol] 3.91 10*6/uL Low 4.2-5.4 [facility] Comment on above: Performed By: #### L 506.0400, L500.4100, L501.9520, L501.34590, L500.2500 #### [facility] [address] [place], [address] RDW SD 47.8 fl High 35.1-43.9 [facility] Comment on above: Performed By: #### L 506.0400, L500.4100, L501.9520, L501.64952, L500.2500 #### [facility] [address] [place], [address] WBC (Bld) [#/Vol] 4.8 10*3/uL Normal 4.4-11.0 [facility] Comment on above: Performed By: #### L 506.0400, L500.4100, L501.9520, L501.39568, L500.2500 #### [facility] [address] [place], [address] Carbon dioxide measurementOr dered By: Ike Gibbs on 09-29-2024 CO2 [Moles/Vol] 25.0 mmol/L 21.0-32.0 [facility] Chloride measurementOrdered By: Ike Gibbs on 09-29-2024 Chloride [Moles/Vol] 101 mmol/L 98-107 [facility] Discharge Instructionon 09-02 Discharge Instruction [facility] Medical Records Department [address] [place] [address] Instructions for Home/Discharge Instructions 09/29/24 0935 MR#: [id number] Acct: [id number] Name: DEE SHEPHERD Rep #: [id number] : 1970 53 From: Ike Gibbs MD PCP: Dr. Sarai Watkins MD Status:ADM IN Discharge Instructions Diet Discharge Diet: Low fat / Low cholesterol and 2000 mg Sodium Diet DC O2, CPAP, BIPAP needs Home O2 Discharge instructions: No Dressing / Incision Discharge Activity: Return to Normal Activity Weight Bearing Status: Weight bearing as tolerated Dressing / Incision Call your doctor if you observe: Fever of 101 or Higher, Coldness, Increased Pain, Numbness or Tingling, Change in Color, Inability to urinate, Inability to have a bowel movement, Shortness of breath, Dizziness, Fainting spells, Swelling in the ankles, Chest pain, Prolonged hiccupping, Increased palpitations (irregular heartbeat) and Calf discomfort Follow Up Care When: IN 2 WEEKS Test Results: Test results from this visit will be discussed in further detail at your follow-up appointment, if applicable. Discharge Plan Admission Admit Date/Time: 09/27/24 10:41 Attending Provider: Ike Gibbs Primary Care Provider: Sarai Watkins Consulting Providers: Henrik Werner Instructions Additional Instructions / Restrictions: Advised to start furosemide and spironolactone from 10/03/2024 after repeating labs in 3 days and follow with PCP Discharge Orders/Prescriptions Prescriptions: New furosemide 40 mg tablet 40 mg PO DAILY 30 Days Qty: 30 2RF Rx Instructions: Start from 10/03/2024. Take extra 40 mg dose at 5 PM for increased leg swelling or weight gain 5 pounds in 1 week. magnesium chloride 64 mg tablet,delayed release (DR/EC) 128 mg PO BID 30 Days Qty: 120 0RF Continued rosuvastatin [Crestor] 5 mg tablet 10 mg PO DAILY sildenafil (pulm.hypertension) 20 mg tablet 40 mg PO TID hydroxychloroquine [Plaquenil] 200 mg tablet 400 mg PO DAILY Qty: 1 0RF Patient Comments: PT OUT OF MEDS. naltrexone 50 mg tablet 50 mg PO DAILY ursodiol 300 mg capsule 300 mg PO BID 90 Days Qty: 180 6RF acetaminophen 500 MG tablet 1,000 mg PO DAILY PRN (Reason: Pain 1-10 Or Fever) folic acid 1 MG tablet 1 mg PO DAILY cholecalciferol (vitamin D3) 10 MCG capsule 4,000 unit PO DAILY Trelegy Ellipta 100-62.5-25 mcg blister with device 1 inh INHALATION DAILY Patient Comments: PT AWARE FAMILY HAS TO BRING. bupropion HCl 300 mg tablet extended release 24 hr 300 mg PO DAILY albuterol sulfate 90 mcg/actuation aerosol powdr breath activated 2 inh inhalation Q4H PRN (Reason: shortness of breath) warfarin 4 mg tablet 4 mg PO QPM Protocol: Dose Management Condition: Friday Dose/Route: 4 mg Instruction: 1 x 4 mg tablet Condition: Friday Dose/Route: 4 mg Instruction: 1 x 4 mg tablet Condition: Friday Dose/Route: 4 mg Instruction: 1 x 4 mg tablet Condition: Friday Dose/Route: 4 mg Instruction: 1 x 4 mg tablet Condition: Dose/Route: 4 mg Instruction: 1 x 4 mg tablet Condition: Friday Dose/Route: 4 mg Instruction: 1 x 4 mg tablet Condition: Friday Dose/Route: 4 mg Instruction: 1 x 4 mg tablet Protocol Text: Adjustment Start Date: Friday09/17/24 INR Value: 1.3 INR Date: 09/17/24 Recheck Date: 09/24/24 trazodone 100 mg Tablet 100 mg PO QHS PRN (Reason: Insomnia) metoprolol tartrate 25 mg tablet 25 mg PO Q12H flecainide 50 mg tablet 50 mg PO Q12H Qty: 180 3RF pantoprazole 40 mg tablet,delayed release (DR/EC) 40 mg PO QAM 30 Days Qty: 30 6RF Held spironolactone 25 mg tablet 12.5 mg PO DAILY Hold Instructions: Hold for 3 days and then restart from 10-03-24 Rx Instructions: Hold if serum potassium more than 5.0. Discontinued furosemide 40 mg tablet 40 mg PO DAILY PRN (Reason: weight gain) 30 Days Qty: 30 3RF Patient Comments: for ankle swelling. pt takes on occasion vitamin E (dl, acetate) 180 mg (400 unit) capsule 180 mg PO DAILY Other Ambulatory Orders: Basic Metabolic Profile (BMP) (Routine) Timeframe: 3 Days Facility: [facility] - Location: Laboratory Ordered By: Dr. Ike Gibbs Magnesium (Routine) Timeframe: 3 Days Facility: [facility] - Location: Laboratory Ordered By: Dr. Ike Gibbs Referrals / Follow Up: Sarai Watkins MD [Primary Care Provider] - Within 1 Week Jasmyne Sparks PA [Med Staff - [facility] Practice Prof] - 11/12/24 9:30 am Disposition Disposition (needs filled in before D/C Order can be placed): Home, Self Care 09/29/24 1520 Ike Gibbs MD CC: Dr. Henrik Werner MD; Dr. Sarai Watkins MD Signed Normal [facility] Eosinophil percentageOrdered By: Henrik Werner on 09-29-2024 Eosinophils/100 WBC (Bld) 4.0 % 0-5 [facility] Erythrocyte distribution wid th ratioOrdered By: Henrik Werner on 09-29-2024 Erythrocyte distribution width (RBC) [Ratio] 13.4 % 11.6-14.6 [facility] Erythrocyte distribution wid th standard deviationOrdered By: Henrik Werner on 09-29-2024 Erythrocyte distribution width (RBC) [Entitic vol] 47.8 fL High 35.1-43.9 [facility] Estimated glomerular filtrat ion rate (GFR) AmericanOrdered By: Ike Gibbs on 09-29-2024 Estimated GFR (MDRD) Amer 38 mL/min Low >60 [facility] Comment on above: GFR Calc Estimation of creatinine asael aranceOrdered By: Ike Gibbs on 09-29-2024 Estimated Creatinine Clearance Calc 48.39 ml/min [facility] Glomerular filtration rate ( GFR) estimationOrdered By: Ike Gibbs on 01-29-2025 Estimated GFR (MDRD) Non-Af Amer 31 mL/min Low >60 [facility] Comment on above: Non- GFR Calc Glucose measurementOrdered B y: Ike Gibbs on 09-29-2024 Glucose [Mass/Vol] 148 mg/dL High 74-106 [facility] Comment on above: Fasting Glucose resu lt greater than or equal to 126 mg/dL suggests DIABETES MELLITUS per A.D.A. criteria. Hematocrit Auto (Bld) [Volum e fraction]Ordered By: Henrik Werner on 09-29-2024 Hematocrit (Bld) [Volume fraction] 37.9 % 37-47 [facility] Hemoglobin measurementOrdere d By: Henrik Werner on 09-29-2024 Hemoglobin (Bld) [Mass/Vol] 12.0 g/dL 12.0-15.0 [facility] Immature granulocytes/100 WB C Auto (Bld)Ordered By: Henrik Werner on 09-29-2024 Immature granulocytes/100 WBC (Bld) 1.000 % High 0.0-0.9 [facility] Comment on above: IG% - Immature Granu locytes (promyelocytes, myelocytes and metamyelocytes) > 1% indicates that a LEFT SHIFT is Present. International normalized rat io (INR) calculationOrdered By: Henrik Werner on 09-29-2024 INR Coag (Bld) [Relative time] 1.7 {INR} [facility] Lymphocytes Auto (Unsp spec) [#/Vol]Ordered By: Henrik Werner on 09-29-2024 Lymphocytes (Bld) [#/Vol] 0.67 10*3/uL Low 0.83-4.51 [facility] Lymphocytes/100 WBC Auto (Un sp spec)Ordered By: Henrik Werner on 09-29-2024 Lymphocytes/100 WBC (Bld) 14.0 % Low 19-41 [facility] MCV (mean corpuscular volume ) determinationOrdered By: Henrik Werner on 09-29-2024 MCV (RBC) [Entitic vol] 96.9 fL 81-99 [facility] Magnesiumon 09-29-2024 Magnesium [Mass/Vol] 1.7 mg/dL Normal 1.6-2.6 [facility] Comment on above: Performed By: #### L 500.2500 #### [facility] [address] [place], [address] Magnesium measurementOrdered By: Ike Gibbs on 09-29-2024 Magnesium [Mass/Vol] 1.7 mg/dL 1.6-2.6 [facility] Mean corpuscular hemoglobin (MCH) determinationOrdered By: Henrik Werner on 09-29-2024 MCH (RBC) [Entitic mass] 30.7 pg 27.0-32.0 [facility] Mean corpuscular hemoglobin concentration (MCHC) determinationOrdered By: Henrik Werner on 09-29-2024 MCHC (RBC) [Mass/Vol] 31.7 g/dL Low 32-36 [facility] Mean platelet volume determi nationOrdered By: Henrik Werner on 09-29-2024 Platelet mean volume (Bld) [Entitic vol] 9.3 fL 6.2-12.0 [facility] Monocyte percentageOrdered B y: Henrik Werner on 09-29-2024 Monocytes/100 WBC (Bld) 13.6 % High 0-10 [facility] Neutrophil percentageOrdered By: Henrik Werner on 09-29-2024 Neutrophils/100 WBC (Bld) 66.6 % 47-70 [facility] Nucleated red blood cell per centageOrdered By: Henrik Werner on 09-29-2024 Nucleated RBC/100 WBC (Bld) [Ratio] 0 % 0-5 [facility] Platelet countOrdered By: Jean Werner on 09-29-2024 Platelets (Bld) [#/Vol] 191 10*3/uL 150-450 [facility] Potassium measurementOrdered By: Ike Gibbs on 09-29-2024 Potassium [Moles/Vol] 3.9 mmol/L 3.5-5.1 [facility] Prothrombin Time w/INRon INR Coag (PPP) [Relative time] 1.7 {INR} Normal [facility] Comment on above: Performed By: #### L 506.0400, L500.4100, L501.9520, L501.79976, L500.2500 #### [facility] [address] [place], [address] PT Coag (PPP) [Time] 20.0 s High 11.7-14.9 [facility] Comment on above: Performed By: #### L 506.0400, L500.4100, L501.9520, L501.09973, L500.2500 #### [facility] [address] [place], [address] Prothrombin timeOrdered By: Henrik Werner on 09-29-2024 PT Coag (PPP) [Time] 20.0 s High 11.7-14.9 [facility] RBC Auto (Bld) [#/Vol]Ordere d By: Henrik Werner on 09-29-2024 RBC (Bld) [#/Vol] 3.91 10*6/uL Low 4.2-5.4 [facility] Serum anion gap measurementO rdered By: Ike Gibbs on 09-29-2024 Anion gap [Moles/Vol] 11 mmol/L 5-15 [facility] Serum or plasma calcium otoniel urement (mass/volume)Ordered By: Ike Gibbs on 09-29-2024 Calcium [Mass/Vol] 8.7 mg/dL 8.5-10.1 [facility] Serum or plasma creatinine m easurement (mass/volume)Ordered By: Ike Gibbs on 09-29-2024 Creatinine [Mass/Vol] 1.79 mg/dL High 0.55-1.02 [facility] Comment on above: The validity of the calculated GFR & GFRAA in patients over 70 years has not been determined. Clinical correlation is essential. Serum or plasma urea nitroge n measurement (mass/volume)Ordered By: Ike Gibbs on 09-29-2024 Urea nitrogen [Mass/Vol] 28 mg/dL High 7-18 [facility] Sodium levelOrdered By: Sylvia Gibbs on 09-29-2024 Sodium [Moles/Vol] 137 mmol/L 136-145 [facility] White blood cell (WBC) count Ordered By: Henrik Werner on 09-29-2024 WBC (Bld) [#/Vol] 4.8 10*3/uL 4.4-11.0 [facility] Basic Metabolic Profile (BMP )on 09-28-2024 BUN/CRE 14.6 RATIO Normal 10-20 [facility] Comment on above: Performed By: #### L 506.0400, L500.4100, L501.9520, L501.16615, L500.2500 #### [facility] [address] [place], [address] CA,Total 8.8 mg/dL Normal 8.5-10.1 [facility] Comment on above: Performed By: #### L 506.0400, L500.4100, L501.9520, L501.64081, L500.2500 #### [facility] [address] [place], [address] Chloride [Moles/Vol] 100 mmol/L Normal 98-107 [facility] Comment on above: Performed By: #### L 506.0400, L500.4100, L501.9520, L501.22260, L500.2500 #### [facility] [address] [place], [address] CO2 [Moles/Vol] 28.0 mmol/L Normal 21.0-32.0 [facility] Comment on above: Performed By: #### L 506.0400, L500.4100, L501.9520, L501.70055, L500.2500 #### [facility] [address] [place], [address] Creatinine [Mass/Vol] 1.23 mg/dL High 0.55-1.02 [facility] Comment on above: Result Comment: The validity of the calculated GFR GFRAA in patients over 70 years has not been determined. Clinical correlation is essential. Performed By: #### L 506.0400, L500.4100, L501.9520, L501.82581, L500.2500 #### [facility] [address] [place], [address] ECRCL 70.55 ml/min Normal [facility] Comment on above: Performed By: #### L 506.0400, L500.4100, L501.9520, L501.79462, L500.2500 #### [facility] [address] [place], [address] EST GFR - AA 58 mL/min Low >60 [facility] Comment on above: Result Comment: Afri can Ken[place] GFR Calc Performed By: #### L 506.0400, L500.4100, L501.9520, L501.57515, L500.2500 #### [facility] [address] [place], [address] GAP 10 Normal 5-15 [facility] Comment on above: Performed By: #### L 506.0400, L500.4100, L501.9520, L501.13315, L500.2500 #### [facility] [address] [place], [address] GFR/1.73 sq M.predicted among non-blacks MDRD (S/P/Bld) [Vol rate/Area] 48 mL/min/{1.73_m2} Low >60 [facility] Comment on above: Result Comment: Non- GFR Calc Performed By: #### L 506.0400, L500.4100, L501.9520, L501.27565, L500.2500 #### [facility] [address] [place], [address] Glucose [Mass/Vol] 114 mg/dL High 74-106 [facility] Comment on above: Result Comment: Fast ing Glucose result from 100 to 125 mg/dL suggests IMPAIRED HOMEOSTASIS per A.D.A. criteria. Performed By: #### L 506.0400, L500.4100, L501.9520, L501.92331, L500.2500 #### [facility] [address] [place], [address] Potassium [Moles/Vol] 3.0 mmol/L Low 3.5-5.1 [facility] Comment on above: Performed By: #### L 506.0400, L500.4100, L501.9520, L501.57458, L500.2500 #### [facility] [address] [place], [address] Sodium [Moles/Vol] 138 mmol/L Normal 136-145 [facility] Comment on above: Performed By: #### L 506.0400, L500.4100, L501.9520, L501.46682, L500.2500 #### [facility] [address] [place], [address] Urea nitrogen [Mass/Vol] 18 mg/dL Normal 7-18 [facility] Comment on above: Performed By: #### L 506.0400, L500.4100, L501.9520, L501.94112, L500.2500 #### [facility] [address] [place], [address] CBC W/Diff, Automatedon 01-2 Absolute Lymph 0.48 X10 3/uL Low 0.83-4.51 [facility] Comment on above: Performed By: #### L 506.0400, L500.4100, L501.9520, L501.73446, L500.2500 #### [facility] [address] [place], [address] Absolute Neut 3.8 X10 3/uL Normal 2.0-7.7 [facility] Comment on above: Performed By: #### L 506.0400, L500.4100, L501.9520, L501.19861, L500.2500 #### [facility] [address] [place], [address] Basophils/100 WBC (Bld) 0.8 % Normal 0-1 [facility] Comment on above: Performed By: #### L 506.0400, L500.4100, L501.9520, L501.38141, L500.2500 #### [facility] [address] [place], [address] Eosinophils/100 WBC (Bld) 3.2 % Normal 0-5 [facility] Comment on above: Performed By: #### L 506.0400, L500.4100, L501.9520, L501.57451, L500.2500 #### [facility] [address] [place], [address] Erythrocyte distribution width (RBC) [Ratio] 13.2 % Normal 11.6-14.6 [facility] Comment on above: Performed By: #### L 506.0400, L500.4100, L501.9520, L501.79741, L500.2500 #### [facility] [address] [place], [address] Hematocrit (Bld) [Volume fraction] 36.5 % Low 37-47 [facility] Comment on above: Performed By: #### L 506.0400, L500.4100, L501.9520, L501.29363, L500.2500 #### [facility] [address] [place], [address] Hemoglobin (Bld) [Mass/Vol] 11.9 g/dL Low 12.0-15.0 [facility] Comment on above: Performed By: #### L 506.0400, L500.4100, L501.9520, L501.72714, L500.2500 #### [facility] [address] [place], [address] IG% 0.600 Normal 0.0-0.9 [facility] Comment on above: Result Comment: IG% - Immature Granulocytes (promyelocytes, myelocytes and metamyelocytes) > 1% indicates that a LEFT SHIFT is Present. Performed By: #### L 506.0400, L500.4100, L501.9520, L501.27635, L500.2500 #### [facility] [address] [place], [address] Lymphocytes/100 WBC (Bld) 9.5 % Low 19-41 [facility] Comment on above: Performed By: #### L 506.0400, L500.4100, L501.9520, L501.37550, L500.2500 #### [facility] [address] [place], [address] MCH (RBC) [Entitic mass] 31.5 pg Normal 27.0-32.0 [facility] Comment on above: Performed By: #### L 506.0400, L500.4100, L501.9520, L501.04574, L500.2500 #### [facility] [address] [place], [address] MCHC (RBC) [Mass/Vol] 32.6 g/dL Normal 32-36 [facility] Comment on above: Performed By: #### L 506.0400, L500.4100, L501.9520, L501.15393, L500.2500 #### [facility] [address] [place], [address] MCV (RBC) [Entitic vol] 96.6 fL Normal 81-99 [facility] Comment on above: Performed By: #### L 506.0400, L500.4100, L501.9520, L501.19003, L500.2500 #### [facility] [address] [place], [address] Monocytes/100 WBC (Bld) 10.5 % High 0-10 [facility] Comment on above: Performed By: #### L 506.0400, L500.4100, L501.9520, L501.77073, L500.2500 #### [facility] [address] [place], [address] Neutrophils/100 WBC (Bld) 75.4 % High 47-70 [facility] Comment on above: Performed By: #### L 506.0400, L500.4100, L501.9520, L501.28674, L500.2500 #### [facility] [address] [place], [address] Nucleated RBC (Bld) [#/Vol] 0 10*3/uL Normal 0-5 [facility] Comment on above: Performed By: #### L 506.0400, L500.4100, L501.9520, L501.14499, L500.2500 #### [facility] [address] [place], [address] Platelet mean volume (Bld) [Entitic vol] 9.1 fL Normal 6.2-12.0 [facility] Comment on above: Performed By: #### L 506.0400, L500.4100, L501.9520, L501.34392, L500.2500 #### [facility] [address] [place], [address] Platelets (Bld) [#/Vol] 184 10*3/uL Normal 150-450 [facility] Comment on above: Performed By: #### L 506.0400, L500.4100, L501.9520, L501.06808, L500.2500 #### [facility] [address] [place], [address] RBC (Bld) [#/Vol] 3.78 10*6/uL Low 4.2-5.4 [facility] Comment on above: Performed By: #### L 506.0400, L500.4100, L501.9520, L501.38774, L500.2500 #### [facility] [address] [place], [address] RDW SD 47.3 fl High 35.1-43.9 [facility] Comment on above: Performed By: #### L 506.0400, L500.4100, L501.9520, L501.01627, L500.2500 #### [facility] [address] [place], [address] WBC (Bld) [#/Vol] 5.1 10*3/uL Normal 4.4-11.0 [facility] Comment on above: Performed By: #### L 506.0400, L500.4100, L501.9520, L501.19402, L500.2500 #### [facility] [address] [place], [address] Calprotectin stoolOrdered By : Ike Gibbs on 09-28-2024 Stool Calprotectin 34 ug/g 0-120 [facility] Comment on above: Concentration Interp retation Follow-Up< 5 - 50 ug/g Normal None>50 -120 ug/g Borderline Re-evaluate in 4-6 weeks >120 ug/g Abnormal Repeat as clinically indicatedPerformed at: [facility] [address] [id number] Director: Barrington Iraheta PhD, Phone: [phone] at: [facility] Lab[address] [id number] Director: Angeles Garsia MD, Phone: [phone] ENTERIC PATHOGEN PANEL STOOL on 09-28-2024 EP PANEL Normal Reference Ran ge = Not Detected Nucleic acid amplification test method Not detected for Campylobacter group, Salmonella species, Shigella species, Vibrio Group, Yersinia enterocolitica, EHEC (Shiga Toxin 1, Shiga Toxin 2), Norovirus Gl/Gll, and Rotavirus A. Other common stool pathogens are not detected on this panel include: Aeromonas/Plesiomonas or parasites. Order testing for these organisms separately if suspected. This is an amplified DNA test which makes it both specific and sensitive. CAMPYLOBACTER Not Detected Norovirus Not Detected Rotavirus Not Detected Salmonella Not Detected Shiga Toxin Not Detected Shigella sp. Not Detected VIBRIO Not Detected Yersinia Not Detected Normal [facility] Comment on above: Performed By: #### L 506.0400, L500.4100, L501.9520, L501.51057, L500.2500 #### [facility] [address] [place], [place], [address] Elastase.pancreatic (Stl) [M ass/Mass]Ordered By: Ike Gibbs on 09-28-2024 Stool Pancreatic Elastase > 800 >200 [facility] Comment on above: Result Units: ug Karyn st./g Severe Pancreatic Insufficiency: <100 Moderate Pancreatic Insufficiency: 100 - 200 Normal: >200Performed at: [facility] [address] [id number] Director: Angeles Garsia MD, Phone: [phone] Fat Ql (Stl)Ordered By: Sylvia Gibbs on 09-28-2024 Stool Total Fats Normal . [facility] Comment on above: Normal (<100 Droplet s/HPF) Magnesiumon 09-28-2024 Magnesium [Mass/Vol] 1.2 mg/dL Low 1.6-2.6 [facility] Comment on above: Performed By: #### L 506.0400, L500.4100, L501.9520, L501.55762, L500.2500 #### [facility] [address] [place], [place], [id number] No Panel InformationOrdered By: Ike Gibbs on 09-28-2024 Stool Neutral Fats Normal . [facility] Comment on above: Normal (<60 Droplets /HPF) Phosphoruson 09-28-2024 Phosphate [Mass/Vol] 4.4 mg/dL Normal 2.5-4.9 [facility] Comment on above: Performed By: #### L 506.0400, L500.4100, L501.9520, L501.36112, L500.2500 #### [facility] [address] [place], [address] Phosphorus measurementOrdere d By: Henrik Werner on 09-28-2024 Phosphorus Level 4.4 mg/dL 2.5-4.9 [facility] Prothrombin Time w/INRon INR Coag (PPP) [Relative time] 1.5 {INR} Normal [facility] Comment on above: Performed By: #### L 506.0400, L500.4100, L501.9520, L501.34768, L500.2500 #### [facility] [address] [place], [address] PT Coag (PPP) [Time] 17.9 s High 11.7-14.9 [facility] Comment on above: Performed By: #### L 506.0400, L500.4100, L501.9520, L501.79818, L500.2500 #### [facility] [address] [place], [address] Stool enteric pathogen panel by probe and target amplification methodOrdered By: Ike Gibbs on 09-28-2024 Enteric Bacteriology [facility] 12 Lead EKGon 09-27-2024 12 Lead EKG [facility] Cardiovascular Services [address] [facility] [place] [address] 12 Lead EKG 09/27/24 0840 MR#: [id number] Acct: [id number] Name: DEE SHEPHERD Rep #: [id number] : 1970 53 From: Eyad Dwyer MD Attending Dr: Dr. Henrik Werner MD Status: ADM IN Ordering Dr: Bruce Boucher MD Date: 09/27/24 Location: [facility] Sex: F C Admitted: 09/27/24 Test Reason : SOB Blood Pressure : */* mmHG Vent. Rate : 67 BPM Atrial Rate : 67 BPM P-R Int : 182 ms QRS Dur : 88 ms QT Int : 422 ms P-R-T Axes : 57 49 17 degrees QTcB Int : 445 ms Normal sinus rhythm Low voltage QRS Borderline ECG Confirmed by REYMUNDO DIAZ, KRISTIAN ([id number]), medical transcription editor SHERYL PRAJAPATI ([id number]) on 09/29/2024 6:19:12 AM Referred By: LOBO/CHELY Confirmed By: KRISTIAN DWYER MD 09/29/24 0619 Date Eyad Dwyer MD CC: Dr. Henrik Werner MD; Dr. Sarai Watkins MD; Dr. Bruce Boucher MD Signed Normal [facility] Albumin to globulin ratioOrd ered By: Bruce Boucher on 09-27-2024 Albumin/Globulin [Mass ratio] 0.8 {ratio} Low 0.9-2.4 [facility] BNP (brain natriuretic pepti de measurement)Ordered By: Bruce Boucher on 09-27-2024 Natriuretic peptide B (Bld) [Mass/Vol] 401.6 pg/mL High 0-100 [facility] Comment on above: Performed By: #### L 500.2500 #### [facility] [address] [place], [place], [id number] Bilirubin, totalOrdered By: Bruce Boucher on 09-27-2024 Bilirubin [Mass/Vol] 0.90 mg/dL 0.20-1.00 [facility] Comment on above: For patients on eltr ombopag therapy, use of Dimension [place] TBIL is not recommended. CBC W/Diff, Automatedon 09-02 Absolute Lymph 0.52 X10 3/uL Low 0.83-4.51 [facility] Comment on above: Performed By: #### L 500.2500 #### [facility] [address] [place], [place], [id number] Absolute Neut 4.0 X10 3/uL Normal 2.0-7.7 [facility] Comment on above: Performed By: #### L 500.2500 #### [facility] [address] [place], [address] Basophils/100 WBC (Bld) 1.1 % High 0-1 [facility] Comment on above: Performed By: #### L 500.2500 #### [facility] [address] [place], [address] Eosinophils/100 WBC (Bld) 3.8 % Normal 0-5 [facility] Comment on above: Performed By: #### L 500.2500 #### [facility] [address] [place], [address] Erythrocyte distribution width (RBC) [Ratio] 13.3 % Normal 11.6-14.6 [facility] Comment on above: Performed By: #### L 500.2500 #### [facility] [place], [address] Hematocrit (Bld) [Volume fraction] 34.0 % Low 37-47 [facility] Comment on above: Performed By: #### L 500.2500 #### [facility] [address] [place], [address] Hemoglobin (Bld) [Mass/Vol] 11.0 g/dL Low 12.0-15.0 [facility] Comment on above: Performed By: #### L 500.2500 #### [facility] [address] [place], [address] IG% 0.900 Normal 0.0-0.9 [facility] Comment on above: Result Comment: IG% - Immature Granulocytes (promyelocytes, myelocytes and metamyelocytes) > 1% indicates that a LEFT SHIFT is Present. Performed By: #### L 500.2500 #### [facility] [address] [place], [address] Lymphocytes/100 WBC (Bld) 9.8 % Low 19-41 [facility] Comment on above: Performed By: #### L 500.2500 #### [facility] [address] [place], [address] MCH (RBC) [Entitic mass] 31.7 pg Normal 27.0-32.0 [facility] Comment on above: Performed By: #### L 500.2500 #### [facility] [address] [place], [address] MCHC (RBC) [Mass/Vol] 32.4 g/dL Normal 32-36 [facility] Comment on above: Performed By: #### L 500.2500 #### [facility] [address] [place], [address] MCV (RBC) [Entitic vol] 98.0 fL Normal 81-99 [facility] Comment on above: Performed By: #### L 500.2500 #### [facility] [place], [address] Monocytes/100 WBC (Bld) 8.8 % Normal 0-10 [facility] Comment on above: Performed By: #### L 500.2500 #### [facility] [address] [place], [address] Neutrophils/100 WBC (Bld) 75.6 % High 47-70 [facility] Comment on above: Performed By: #### L 500.2500 #### [facility] [address] [place], [address] Nucleated RBC (Bld) [#/Vol] 0 10*3/uL Normal 0-5 [facility] Comment on above: Performed By: #### L 500.2500 #### [facility] [address] [place], [address] Platelet mean volume (Bld) [Entitic vol] 9.3 fL Normal 6.2-12.0 [facility] Comment on above: Performed By: #### L 500.2500 #### [facility] [address] [place], [address] Platelets (Bld) [#/Vol] 189 10*3/uL Normal 150-450 [facility] Comment on above: Performed By: #### L 500.2500 #### [facility] [address] [place], [address] RBC (Bld) [#/Vol] 3.47 10*6/uL Low 4.2-5.4 [facility] Comment on above: Performed By: #### L 500.2500 #### [facility] [address] [place], [address] RDW SD 47.2 fl High 35.1-43.9 [facility] Comment on above: Performed By: #### L 500.2500 #### [facility] [address] [place], [address] WBC (Bld) [#/Vol] 5.3 10*3/uL Normal 4.4-11.0 [facility] Comment on above: Performed By: #### L 500.2500 #### [facility] [address] [place], [address] Chest PA and Lateralon 09-27 Chest PA and Lateral [facility] Imaging Services [address] [place] [address] Chest PA and Lateral MR#: [id number] Acct: [id number] Name: DEE SHEPHERD Rep #: [id number] : 1970 F 53 From: George rossi MD PCP: Dr. Sarai Watkins MD Status: [facility] ER Study: Chest PA and Lateral Date of Exam: 09/27/24 Exam# [id number] Ordering Dr: Bruce Boucher MD [id number] STUDY: X-RAY CHEST REASON FOR EXAM: Female, 53 years old. Dyspnea, ANGELO, edema with 20 pound weight gain TECHNIQUE: PA and lateral views of the chest. COMPARISON: Comparison is made with prior study dated June 24, 2023. FINDINGS: EKG electrodes are seen. Increased interstitial markings suggests a mild degree of CHF. There is no demonstrated pleural abnormality. There is moderate cardiac enlargement. Normal mediastinum and mayra. Normal visualized pulmonary arteries. There is atherosclerotic tortuosity of the aortic arch and descending thoracic aorta. There are diffuse degenerative changes of the visualized thoracic spine. Normal visualized ribs, clavicles, and shoulders. There is no demonstrated abnormality of the visualized soft tissue structures of the upper abdomen. RAD/Chest PA and Lateral IMPRESSION: Cardiomegaly. Mild CHF. Electronically Signed: George Kaplan MD at 10:52 [facility] Reading Location ID and State: [address] [place] [address] , Service support , CC: Dr. Sarai Watkins MD; Dr. Bruce Boucher MD Bias Cutter Helper: Signed Normal [facility] Comprehensive Metabolic Prof ilon 09-27-2024 Albumin [Mass/Vol] 2.8 g/dL Low 3.2-5.0 [facility] Comment on above: Order Comment: 'TROP ' Serial specimen #1, #2 or #3: 1 Performed By: #### L 500.2500 #### [facility] [address] [place], [address] Albumin/Globulin [Mass ratio] 0.8 {ratio} Low 0.9-2.4 [facility] Comment on above: Order Comment: 'TROP ' Serial specimen #1, #2 or #3: 1 Performed By: #### L 500.2500 #### [facility] [address] [place], [address] ALK P 101 U/L Normal 45-117 [facility] Comment on above: Order Comment: 'TROP ' Serial specimen #1, #2 or #3: 1 Performed By: #### L 500.2500 #### [facility] [address] [place], [address] ALT [Catalytic activity/Vol] 21 U/L Normal 13-56 [facility] Comment on above: Order Comment: 'TROP ' Serial specimen #1, #2 or #3: 1 Performed By: #### L 500.2500 #### [facility] [address] [place], [address] AST [Catalytic activity/Vol] 24 U/L Normal 15-37 [facility] Comment on above: Order Comment: 'TROP ' Serial specimen #1, #2 or #3: 1 Performed By: #### L 500.2500 #### [facility] [address] [place], [address] Bilirubin [Mass/Vol] 0.90 mg/dL Normal 0.20-1.00 [facility] Comment on above: Order Comment: 'TROP ' Serial specimen #1, #2 or #3: 1 Result Comment: For patients on eltrombopag therapy, use of Dimension [place] TBIL is not recommended. Performed By: #### L 500.2500 #### [facility] [address] [place], [address] BUN/CRE 17.3 RATIO Normal 10-20 [facility] Comment on above: Order Comment: 'TROP ' Serial specimen #1, #2 or #3: 1 Performed By: #### L 500.2500 #### [facility] [address] [place], [address] CA,Total 8.8 mg/dL Normal 8.5-10.1 [facility] Comment on above: Order Comment: 'TROP ' Serial specimen #1, #2 or #3: 1 Performed By: #### L 500.2500 #### [facility] [address] [place], [address] Chloride [Moles/Vol] 111 mmol/L High 98-107 [facility] Comment on above: Order Comment: 'TROP ' Serial specimen #1, #2 or #3: 1 Performed By: #### L 500.2500 #### [facility] [address] [place], [address] CO2 [Moles/Vol] 22.0 mmol/L Normal 21.0-32.0 [facility] Comment on above: Order Comment: 'TROP ' Serial specimen #1, #2 or #3: 1 Performed By: #### L 500.2500 #### [facility] [address] [place], [address] Creatinine [Mass/Vol] 0.92 mg/dL Normal 0.55-1.02 [facility] Comment on above: Order Comment: 'TROP ' Serial specimen #1, #2 or #3: 1 Result Comment: The validity of the calculated GFR GFRAA in patients over 70 years has not been determined. Clinical correlation is essential. Performed By: #### L 500.2500 #### [facility] [address] [place], [address] ECRCL 98.82 ml/min Normal [facility] Comment on above: Order Comment: 'TROP ' Serial specimen #1, #2 or #3: 1 Performed By: #### L 500.2500 #### [facility] [address] [place], [address] EST GFR - AA 81 mL/min Normal >60 [facility] Comment on above: Order Comment: 'TROP ' Serial specimen #1, #2 or #3: 1 Result Comment: Afri can [place] GFR Calc Performed By: #### L 500.2500 #### [facility] [address] [place], [address] GAP 8 Normal 5-15 [facility] Comment on above: Order Comment: 'TROP ' Serial specimen #1, #2 or #3: 1 Performed By: #### L 500.2500 #### [facility] [address] [place], [address] GFR/1.73 sq M.predicted among non-blacks MDRD (S/P/Bld) [Vol rate/Area] 67 mL/min/{1.73_m2} Normal >60 [facility] Comment on above: Order Comment: 'TROP ' Serial specimen #1, #2 or #3: 1 Result Comment: Non- GFR Calc Performed By: #### L 500.2500 #### [facility] [address] [place], [address] Globulin (S) [Mass/Vol] 3.6 g/dL Normal 2.2-4.2 [facility] Comment on above: Order Comment: 'TROP ' Serial specimen #1, #2 or #3: 1 Performed By: #### L 500.2500 #### [facility] [address] [place], [address] Glucose [Mass/Vol] 90 mg/dL Normal 74-106 [facility] Comment on above: Order Comment: 'TROP ' Serial specimen #1, #2 or #3: 1 Performed By: #### L 500.2500 #### [facility] [address] [place], [address] Potassium [Moles/Vol] 4.0 mmol/L Normal 3.5-5.1 [facility] Comment on above: Order Comment: 'TROP ' Serial specimen #1, #2 or #3: 1 Performed By: #### L 500.2500 #### [facility] [address] [place], [address] Sodium [Moles/Vol] 141 mmol/L Normal 136-145 [facility] Comment on above: Order Comment: 'TROP ' Serial specimen #1, #2 or #3: 1 Performed By: #### L 500.2500 #### [facility] [address] [place], [place], [address] T PROT 6.4 g/dL Normal 6.4-8.2 [facility] Comment on above: Order Comment: 'TROP ' Serial specimen #1, #2 or #3: 1 Performed By: #### L 500.2500 #### [facility] [address] [place], [place], [address] Urea nitrogen [Mass/Vol] 16 mg/dL Normal 7-18 [facility] Comment on above: Order Comment: 'TROP ' Serial specimen #1, #2 or #3: 1 Performed By: #### L 500.2500 #### [facility] [address] [place], [place], [address] Echo Complete W/ Contraston 09-27-2024 Echo Complete W/ Contrast [facility] Cardiovascular Services [address] [place] [address] Echo Complete W/ Contrast 09/27/24 1522 MR#: [id number] Acct: [id number] Name: DEE SHEPHERD Rep #: [id number] : 1970 53 From: Eyad Dwyer MD Attending Dr: Dr. Henrik Werner MD Status: ADM IN Ordering Dr: Henrik Werner MD Date: 09/27/24 Location: U Sex: F C Admitted: 09/27/24 Reason For Study: CONGESTIVE HEART FAILURE Procedure This was a 2D Doppler, Color Flow transthoracic echocardiogram. The study was technically difficult. Contrast injection was performed. Exam performed portable in patient room. Left Ventricle Normal LV size. The estimated ejection fraction is 65 %. Diastolic function is indeterminate. No regional wall motion abnormalities noted. Right Ventricle Normal RV size. Normal systolic function. Atria The left atrium is mildly enlarged. Normal right atrium. No doppler evidence for ASD. Mitral Valve Moderate focal mitral valve calcification of the posterior leaflet. There is no mitral valve stenosis. No mitral valve insufficiency. Tricuspid Valve There is no tricuspid stenosis. Unable to estimate RV systolic pressure due to insufficient tricuspid regurgitant envelope. Trivial tricuspid valve insufficiency. Aortic Valve Trisinus/trileaflet aortic valve. There is no aortic stenosis. No aortic valve insufficiency. Pulmonic Valve There is no pulmonic valvular stenosis. No pulmonic valve insufficiency. Great Vessels Normal aortic root. Pericardium/Pleural No pericardial effusion. Medication Diluted definity 2ml given slow IV push to enhance endocardial definition. MMode/2D Measurements Calculations LVIDd: 5.1 cm IVSd: 1.5 cm LVOT diam: 2.0 cm LVIDs: 3.0 cm LVPWd: 1.4 cm RVDd: 4.1 cm FS: 41.5 % LVOT area: 3.1 cm2 asc Aorta Diam: 3.5 cm LAV(MOD-bp): 61.3 ml LVAd ap4: 38.7 cm2 LAV(MOD-bp) Indexed: 26.3 ml/m2 LVLd ap4: 8.8 cm LAV(MOD-sp2): 66.3 ml EDV(MOD-sp4): 137.6 ml LAV(MOD-sp4): 54.2 ml EDV(sp4-el): 143.9 ml LVAs ap4: 21.1 cm2 LVLs ap4: 7.2 cm ESV(MOD-sp4): 49.9 ml ESV(sp4-el): 52.6 ml EF(MOD-sp4): 63.7 % EF(sp4-el): 63.5 % LVAd ap2: 39.0 cm2 SV(MOD-sp4): 87.7 ml SV(MOD-sp2): 85.7 ml LVLd ap2: 9.0 cm SI(MOD-sp4): 37.6 ml/m2 SI(MOD-sp2): 36.8 ml/m2 EDV(MOD-sp2): 132.8 ml EDV(sp2-el): 143.1 ml LVAs ap2: 19.6 cm2 LVLs ap2: 6.7 cm ESV(MOD-sp2): 47.1 ml ESV(sp2-el): 48.9 ml EF(MOD-sp2): 64.5 % SV(sp4-el): 91.3 ml Ao sinus diam: 3.[address] Junction: 3.0 cm LA dimension(2D): 5.8 cm LA A4 area: 21.0 cm2 RA A4 area: 17.7 cm2 TAPSE: 1.9 cm Time Measurements MV dec time: 0.36 sec Doppler Measurements Calculations MV E max marjorie: 128.6 cm/sec Lat Peak E' Marjorie: 7.3 cm/sec Med Peak E' Marjorie: 5.8 cm/sec MV A max marjorie: 137.9 cm/sec E/E' lat: 17.6 E/E' med: 22.3 MV E/A: 0.93 MV V2 max: 132.7 cm/sec MV dec slope: 357.5 cm/sec2 Ao V2 max: 145.0 cm/sec MV max P.0 mmHg Ao max P.4 mmHg MV V2 mean: 94.3 cm/sec Ao V2 mean: 97.7 cm/sec MV mean P.8 mmHg Ao mean P.3 mmHg MV V2 VTI: 48.7 cm Ao V2 VTI: 28.2 cm MVA(VTI): 1.6 cm2 AV (velocity ratio): 0.93 RADHA(I,D): 2.8 cm2 RADHA(V,D): 2.8 cm2 LV V1 max: 132.0 cm/sec SV(LVOT): 79.9 ml PA V2 max: 106.7 cm/sec LV V1 max P.0 mmHg LV V1 mean P.9 mmHg LV V1 mean: 93.6 cm/sec LV V1 VTI: 26.2 cm TR max marjorie: 293.4 cm/sec TR max P.4 mmHg ECHO/Echo Complete W/ Contrast Interpretation Summary The estimated ejection fraction is 65 %. Diastolic function is indeterminate. The left atrium is mildly enlarged. Ordering Physician: Henrik Werner Referring Physician: Sarai Watkins Performed By: Juliann Flores, [facility] 09/28/24 1423 Date Eyad Dwyer MD CC: Dr. Henrik Werner MD; Dr. Sarai Watkins MD Date Dictated: 09/27/24 1522 Date Transcribed: 09/28/24 142 Bias Cutter Helper: Signed Normal [facility] Emergency Department Summary on 09-27-2024 Emergency Department Summary [facility] Medical Records Department [address] [place] [address] Emergency Department Summary 09/27/24 MR#: [id number] Acct: [id number] Name: DEE SHEPHERD Rep #: [id number] : 1970 53 From: Bruce Boucher MD PCP: Dr. Sarai Watkins MD Status:REG ER Location: ED HPI History of Present Illness Chief Complaint: Shortness of Breath Detail of Chief Complaint: Patient was sent from GI office for dyspnea. Informant: patient Onset/Context/Timing Onset: Month(s) (Gradually worse over the past month.) Context: gradual Timing: Continuous and Waxes and wanes Quality: Positive for Dyspnea on exertion and PND; Negative for Orthopnea or Wheezing Current Severity: Mild Maximum Severity: Severe (Having patient rise from 45 degrees to upright causes her to become quite tachypneic. She also has conversational dyspnea.) Worsened by: Exertion and Lying flat Relieved by: Nothing Associated Symptoms Negative for cough, rhinorrhea, post nasal drip, ear pain, fever, sore throat, subjective or chills Chest Pain: Positive for None Narrative Narrative: Patient is a 53-year-old woman. She is known to the heart group. GI contacted [place] [facility]. They recommended she go to the emergency department. Patient's had a 20 pound weight gain over the past 1 month. When asked if she is compliant with her medication and diet she responded she is taking her spironolactone daily. Her last dose of furosemide was 1 week ago. There was no comment regarding compliance with diet. She does admit to swelling of her legs. She does admit to bruising easily since she is on Coumadin. She states she is compliant with her Coumadin. She was following up with GI because of liver issues. She has history of fatty liver per review of old records. Per old records she has history of right-sided heart failure. Patient's blood pressure is elevated. Patient is tachypneic. She is not hypoxic. 1 patient has similar episode she weighed 273 pounds. She was diuresed down to 263. She states her weight today was 283 at the GI office. PE Risk Factors: Negative for Cancer, OCP + Smoking + > 35, Prior DVT or PE, Recent immobilization, Recent surgery or Recent travel Prior similar symptoms: Yes Recent Illness/Hospitalization: Yes PFSH PFSH Medical History Left shoulder pain HTN (hypertension), benign PFO (patent foramen ovale) PAF (paroxysmal atrial fibrillation) Chronic kidney disease (CKD) Secondary pulmonary arterial hypertension HFrEF (heart failure with reduced ejection fraction) Non-ischemic cardiomyopathy Atrial flutter Panic attack Heart failure with preserved ejection fraction Atrial fibrillation Esophageal spasm Osteoarthritis Tubular adenoma of colon Extremity cyanosis Fatty liver Former smoker CPAP (continuous positive airway pressure) dependence History of pain when walking History of edema Patellofemoral syndrome of both knees Bilateral knee pain Paroxysmal atrial fibrillation Hyperthyroidism Former smoker Migraines HLD (hyperlipidemia) Hiatal hernia COPD (chronic obstructive pulmonary disease) Anxiety History of back problems Obstructive sleep apnea Essential (primary) hypertension Hypomagnesemia Iron deficiency Morbid obesity with BMI of 40.0-44.9, adult DVT (deep venous thrombosis) Anemia Pulmonary embolism (04/26/16) Tobacco user GERD (gastroesophageal reflux disease) Depression Allergic rhinitis Alcohol abuse Home Medications ???Medication ???Instructions ???Recorded ???Last Taken ???Type rosuvastatin 5 mg tablet (Crestor) 10 mg PO DAILY cholesterol 06/18/19 09/27/24 History acetaminophen 500 mg tablet 1,000 mg PO DAILY PRN Pain 1-10 Or 08/01/20 09/13/22 History Fever cholecalciferol (vitamin D3) 10 4,000 unit PO DAILY supplement 08/01/20 09/27/24 History mcg (400 unit) capsule folic acid 1 mg tablet 1 mg PO DAILY supplement 08/01/20 09/27/24 History sildenafil (pulm.hypertension) 20 20 mg PO TID pulmonary HTN 05/01/21 09/27/24 History mg tablet fluticasone fur. 100 mcg-umeclid 1 inh inhalation DAILY COPD 01/20/22 09/27/24 History 62.5 mcg-vilant 25 mcg inhalat.powder (Trelegy Ellipta) bupropion HCl 300 mg 24 hr tablet, 300 mg PO DAILY mood 05/16/22 09/27/24 History extended release hydroxychloroquine 200 mg tablet 400 mg (2 x 200 mg) PO DAILY 06/13/23 09/27/24 Rx (Plaquenil) arthritis #1 TAB albuterol sulfate 90 mcg/actuation 2 inh inhalation Q4H PRN shortness 06/24/23 Unknown History breath activated powder inhaler of breath naltrexone 50 mg tablet 50 mg PO DAILY 08/29/23 09/27/24 History flecainide 50 mg tablet 50 mg PO Q12H #180 tabs 01/14/24 09/27/24 Rx furosemide 40 mg tablet 40 mg PO DAILY PRN weight gain 1 01/19/24 Unknown Rx month #30 tabs ursodiol 300 mg capsule 300 mg PO BID heart 90 days #180 01/18 (more content not included)... Normal [facility] Gastroenterology Visit Repor ton 09-27-2024 Gastroenterology Visit Report [facility] Gastroenterology [address] [place] [address] OFFICE VISIT Date of Service: 09/27/24 MR#: [id number] Acct: [id number] Name: DEE SHEPHERD Rep #: [id number] : 1970 Provider: Dr. Ike garcia MD Age/Sex: 53/F Location[place] [facility] [place] Status: Signed Intake Vital Signs 05/26/24 15:49 09/27/24 08:03 Height 5 ft 6 in 5 ft 6 in Weight: 284 lb BMI 45.8 BP 144/87 H Blood Pressure Location Rt brachial Position Sitting Pulse 68 Pulse Oximetry (%) 94 Oxygen Delivery Method room air Intake Visit Reasons: 4 M FU Chief Complaint: f/u fatty liver Allergies doxycycline Allergy (Verified 09/27/24 08:42) Hives hydrocodone (From Vicodin) Adverse Reaction (Verified 09/27/24 08:42) Itching PFSH Medical History Left shoulder pain HTN (hypertension), benign PFO (patent foramen ovale) PAF (paroxysmal atrial fibrillation) Chronic kidney disease (CKD) Secondary pulmonary arterial hypertension HFrEF (heart failure with reduced ejection fraction) Non-ischemic cardiomyopathy Atrial flutter Panic attack Heart failure with preserved ejection fraction Atrial fibrillation Esophageal spasm Osteoarthritis Tubular adenoma of colon Extremity cyanosis Fatty liver Former smoker CPAP (continuous positive airway pressure) dependence History of pain when walking History of edema Patellofemoral syndrome of both knees Bilateral knee pain Paroxysmal atrial fibrillation Hyperthyroidism Former smoker Migraines HLD (hyperlipidemia) Hiatal hernia COPD (chronic obstructive pulmonary disease) Anxiety History of back problems Obstructive sleep apnea Essential (primary) hypertension Hypomagnesemia Iron deficiency Morbid obesity with BMI of 40.0-44.9, adult DVT (deep venous thrombosis) Anemia Pulmonary embolism (04/26/16) Tobacco user GERD (gastroesophageal reflux disease) Depression Allergic rhinitis Alcohol abuse Surgical History History of transesophageal echocardiography (MABEL) (05/23/22) History of cardioversion (05/23/22) History of cardiac catheterization History of repair of hiatal hernia (12/2020) History of cholecystectomy History of nasal surgery History of hysterectomy H/O repair of rotator cuff History of Family History Mother Breast cancer Cancer lung cancer Father Cancer lung cancer Hypertension High cholesterol Social History household members: spouse Smoking Status: Former smoker quit date: 06/01/23 alcohol intake: current alcohol intake frequency: 3 or more drinks per day Alcohol type: hard liquor details: Started drinking again recently, has been intermittent. Hard liquor drinks. substance use type: does not use HPI HPI Chief Complaint: f/u fatty liver Details: DEE SHEPHERD, is a 53 F who presents to the office today for follow up. Dee established with our office on 10/25/2021 following presentation to the [facility] ED on 10/10/2021 for chest pain where she was diagnosed with esophageal spasms, the spasms have not been a problem since then. She has a history of GERD. No heartburn since she had Roddy and Sidra surgery for her severe hiatal hernia on 01/18/2021 at [facility]. Cholecystectomy in 2019 with liver biopsy at the same time, diagnosed fatty liver. EGD 01.02.22- LA Grade A reflux esophagitis, erythematous mucosa Colon- Perianal hemorrhoids, One sigmoid polyp- TA, Diverticulosis, Localized mild inflammation in sigmoid colon secondary to colitis Pathology: Duodenal mucosa with Tr gland hyperplasia, Mild gastritis, Gastroesophageal mucosa with chronic inflammation US abd/ elastography 5.24.22- Parenchymal liver disease, Metavir score of F2 to F3 US abd/ elastography 12.9.22- Hepatomegaly and fatty infiltration of liver. Liver measures 19.6cm 7kPa CT abd/pel w/contrast 3.22.23- Scattered diverticula without diverticulitis, hysterectomy, cholecystectomy, No acute pelvic abnormality US abd/ elastography 5.3.23- Hepatomegaly and fatty infiltration of liver, Small nonobstructive calcus in the upper pole of right kidney Liver measures 19.6 cm 9.1 kPa FIB-4 1.16 which excludes advanced fibrosis OV 6.13.24- At her last visit she had improvement in degree of liver fibrosis per repeat elastography done after 6 mos of ursodiol 300 mg bid and vitamin E 800 IU daily. She continues to drink alcohol. She has been on ursodiol 300 mg twice daily and vitamin E 800 IU daily for 12 months. Denies adverse effects from the medications today OV 2.14.24- Continues ursodiol 300 bid and vit E 800 IU daily. Drinks alcohol a few times a week. She states she did take 1/10 of t (more content not included)... Normal [facility] H AND P Exam - Hospitaliston 09-27-2024 H&P Exam - Hospitalist [facility] Medical Records Department [address] [place] [address] H P Exam - Hospitalist 09/27/24 1039 MR#: [id number] Acct: [id number] Name: DEE SHEPHERD Rep #: [id number] : 1970 53 From: Henrik Werner MD PCP: Dr. 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 Patient reported being compliant with her diuretics. Her assessment in the emergency department came back consistent with acute congestive heart failure. Admitted to monitored bed for further management PFSH Medical History Left shoulder pain HTN (hypertension), benign PFO (patent foramen ovale) PAF (paroxysmal atrial fibrillation) Chronic kidney disease (CKD) Secondary pulmonary arterial hypertension HFrEF (heart failure with reduced ejection fraction) Non-ischemic cardiomyopathy Atrial flutter Panic attack Heart failure with preserved ejection fraction Atrial fibrillation Esophageal spasm Osteoarthritis Tubular adenoma of colon Extremity cyanosis Fatty liver Former smoker CPAP (continuous positive airway pressure) dependence History of pain when walking History of edema Patellofemoral syndrome of both knees Bilateral knee pain Paroxysmal atrial fibrillation Hyperthyroidism Former smoker Migraines HLD (hyperlipidemia) Hiatal hernia COPD (chronic obstructive pulmonary disease) Anxiety History of back problems Obstructive sleep apnea Essential (primary) hypertension Hypomagnesemia Iron deficiency Morbid obesity with BMI of 40.0-44.9, adult DVT (deep venous thrombosis) Anemia Pulmonary embolism (04/26/16) Tobacco user GERD (gastroesophageal reflux disease) Depression Allergic rhinitis Alcohol abuse Home Medications ???Medication ???Instructions ???Recorded ???Last Taken ???Type rosuvastatin 5 mg tablet (Crestor) 10 mg PO DAILY cholesterol 06/18/19 09/27/24 History acetaminophen 500 mg tablet 1,000 mg PO DAILY PRN Pain 1-10 Or 08/01/20 09/13/22 History Fever cholecalciferol (vitamin D3) 10 4,000 unit PO DAILY supplement 08/01/20 09/27/24 History mcg (400 unit) capsule folic acid 1 mg tablet 1 mg PO DAILY supplement 08/01/20 09/27/24 History sildenafil (pulm.hypertension) 20 20 mg PO TID pulmonary HTN 05/01/21 09/27/24 History mg tablet fluticasone fur. 100 mcg-umeclid 1 inh inhalation DAILY COPD 01/20/22 09/27/24 History 62.5 mcg-vilant 25 mcg inhalat.powder (Trelegy Ellipta) bupropion HCl 300 mg 24 hr tablet, 300 mg PO DAILY mood 05/16/22 09/27/24 History extended release hydroxychloroquine 200 mg tablet 400 mg (2 x 200 mg) PO DAILY 06/13/23 09/27/24 Rx (Plaquenil) arthritis #1 TAB albuterol sulfate 90 mcg/actuation 2 inh inhalation Q4H PRN shortness 06/24/23 Unknown History breath activated powder inhaler of breath naltrexone 50 mg tablet 50 mg PO DAILY 08/29/23 09/27/24 History flecainide 50 mg tablet 50 mg PO Q12H #180 tabs 01/14/24 09/27/24 Rx furosemide 40 mg tablet 40 mg PO DAILY PRN weight gain 1 01/19/24 Unknown Rx month #30 tabs ursodiol 300 mg capsule 300 mg PO BID heart 90 days #180 01/19/24 09/27/24 Rx caps pantoprazole 40 mg tablet,delayed 40 mg PO QAM acid reflux 1 month 09/16/24 09/27/24 Rx release #30 tabs metoprolol tartrate 25 mg tablet 25 mg PO Q12H high blood pressure 09/27/24 09/27/24 History spironolactone 25 mg tablet 12.5 mg PO DAILY 09/27/24 09/27/24 History trazodone 100 mg tablet 100 mg PO QHS PRN Insomnia 09/27/24 09/26/24 History vitamin E (dl, acetate) 180 mg 180 mg PO DAILY 09/27/24 09/27/24 History (400 unit) capsule warfarin 4 mg tablet 4 mg PO QPM 09/27/24 09/26/24 History Allergy/AdvReac Type Severity Reaction Status Date / Time doxycycline Allergy Hives Verified 09/27/24 08:42 hydrocodone (From Vicodin) AdvReac Itching Verified 09/27/24 08:42 Family History Mother Breast cancer Cancer lung cancer Father Cancer lung cancer Hypertension High cholesterol Surgical History History of transesophageal echocardiography (MABEL) (05/23/22) History of cardioversion (05/23/22) History of cardiac catheterization History of repair of hiatal hernia (12/2020) History of cholecystectomy History of nasal surgery History of hysterectomy H/O repair of rotator cuff History of Social History (Reviewed (more content not included)... Normal [facility] L501.4020on 09-27-2024 TROPONIN-I HS 13 pg/mL Normal 3.0-54.0 [facility] Comment on above: Order Comment: 'TROP ' Serial specimen #1, #2 or #3: 1 Result Comment: Fabian kincaid Note: New Test Units and Gender Specific Reference Ranges. For more information see Policy Stat Procedure [place] High Sensitivity Troponin (TNIH) and attachments. Performed By: #### L 500.2500 #### [facility] [address] [place], [place], [address] Laboratory - Chemistry and C hemistry - challengeOrdered By: Bruce Boucher on 09-27-2024 AST [Catalytic activity/Vol] 24 U/L 15-37 [facility] Lactic Acidon 09-27-2024 Lactate [Moles/Vol] 1.4 mmol/L Normal 0.4-1.9 [facility] Comment on above: Order Comment: Y Performed By: #### L 500.2500 #### [facility] [address] [place], [place], [address] Lactic acid measurementOrder ed By: Bruce Boucher on 09-27-2024 Lactate [Moles/Vol] 1.4 mmol/L 0.4-2.0 [facility] Lactoferrin IA Ql (Stl)Order ed By: Ike Gibbs on 09-27-2024 Stool Lactoferrin [facility] Lower GI hemoglobin IA Ql (S tl)Ordered By: Ike Gibbs on 09-27-2024 Stool Occult Blood (VICTORIA) [facility] Prothrombin Time w/INRon INR Coag (PPP) [Relative time] 1.5 {INR} Normal [facility] Comment on above: Performed By: #### L 500.2500 #### [facility] [address] [place], [place], [id number] PT Coag (PPP) [Time] 18.0 s High 11.7-14.9 [facility] Comment on above: Performed By: #### L 500.2500 #### [facility] [address] [place], [place], [address] Serum globulin measurementOr dered By: [facility] 09-27-[facility] Globulin (S) [Mass/Vol] 3.6 g/dL 2.2-4.2 [facility] Serum or plasma alanine khalil otransferase (ALT) measurementOrdered By: [facility] on 09-27-2024 ALT [Catalytic activity/Vol] 21 U/L 13-56 [facility] Serum or plasma albumin otoniel urement (mass/volume)Ordered By: [facility] on 09-27-2024 Albumin [Mass/Vol] 2.8 g/dL Low 3.2-5.0 [facility] Serum or plasma alkaline sage sphatase measurementOrdered By: [facility] on 09-27-2024 ALP [Catalytic activity/Vol] 101 U/L 45-117 [facility] Stool Lactoferrin/WBCon 09-02 WBCST Normal Reference Ran ge = Negative Fecal WBC Lactoferrin A Positive: Fecal WBC Lactoferrin present A Normal [facility] Comment on above: Performed By: #### L 506.0400, L500.4100, L501.9520, L501.94526, L500.2500 #### [facility] [address] [place], [place], [address] Stool Occult Blood iFOBon STOB Negative Normal [facility] Comment on above: Performed By: #### L 506.0400, L500.4100, L501.9520, L501.31321, L500.2500 #### [facility] [address] [place], [address] Total proteinOrdered By: Bruce Boucher on 09-27-2024 Protein [Mass/Vol] 6.4 g/dL 6.4-8.2 [facility] Troponin IOrdered By: Bruce Jalloh keyla on 09-27-2024 Troponin I High Sensitivity 13 pg/mL 3.0-54.0 [facility] Comment on above: Please Note: New Rush t Units and Gender Specific Reference Ranges. For more information see Policy Stat Procedure [place] High Sensitivity Troponin (TNIH) and attachments. International normalized rat io (INR) calculationOrdered By: Jasmyne Sparks on 09-17-2024 INR Coag (Bld) [Relative time] 1.3 {INR} [facility] Prothrombin Time w/INRon INR Coag (PPP) [Relative time] 1.3 {INR} Normal [facility] Comment on above: Performed By: #### L 506.0400, L500.4100, L501.9520, L501.06137, L500.2500 #### [facility] [address] [place], [address] PT Coag (PPP) [Time] 16.2 s High 11.7-14.9 [facility] Comment on above: Performed By: #### L 506.0400, L500.4100, L501.9520, L501.61228, L500.2500 #### [facility] [address] [place], [address] Prothrombin timeOrdered By: Jasmyne Sparks on 09-17-2024 PT Coag (PPP) [Time] 16.2 s High 11.7-14.9 [facility] AFP, Tumor Markeron 09-16-19 25 AFP TUMOR SUMEET 5.3 ng/mL Normal 0.0-9.2 [facility] Comment on above: Order Comment: NN Result Comment: [employer] Electrochemiluminescence Immunoassay (ECLIA) Values obtained with different assay methods or kits cannot be used interchangeably. Results cannot be interpreted as absolute evidence of the presence or absence of malignant disease. This test is not interpretable in females. Performed By: #### L 506.0400, L500.4100, L501.9520, L501.86939, L500.2500 #### [facility] [address] [place], [place], [address] Anti-Smooth Muscle ABSon ANTISMOOTH MUSC 1 Units Normal 0-19 [facility] Comment on above: Order Comment: NN Result Comment: Nega tive 0 - 19 Weak positive 20 - 30 Moderate to strong positive >30 Actin Antibodies are found in 52-85% of patients with autoimmune hepatitis or chronic active hepatitis and in 22% of patients with primary biliary cirrhosis. Performed at: [facility] [address] [id number] State Archivist: Barrington Iraheta PhD, Phone: [phone] Performed at: [facility] [address] [id number] State Archivist: Angeles Garsia MD, Phone: [phone] Performed By: #### L 506.0400, L500.4100, L501.9520, L501.95081, L500.2500 #### [facility] [address] [place], [place], [address] Celiac Disease Profileon ENDOMYSIAL IGA Negative Normal Negative [facility] Comment on above: Order Comment: NN Performed By: #### L 506.0400, L500.4100, L501.9520, L501.19242, L500.2500 #### [facility] [address] [place], [address] tTG IGA <2 Normal 0-3 [facility] Comment on above: Order Comment: NN Result Comment: Nega tive 0 - 3 Weak Positive 4 - 10 Positive >10 Tissue Transglutaminase (tTG) has been identified as the endomysial antigen. Studies have demonstr- ated that endomysial IgA antibodies have over 99% specificity for gluten sensitive enteropathy. Performed By: #### L 506.0400, L500.4100, L501.9520, L501.53523, L500.2500 #### [facility] [address] [place], [address] TR + Protein Elect, Serumon 09-16-2024 Albumin [Mass/Vol] 3.4 g/dL Normal 2.9-4.4 [facility] Comment on above: Order Comment: NN Performed By: #### L 506.0400, L500.4100, L501.9520, L501.59194, L500.2500 #### [facility] [address] [place], [address] Albumin/Globulin [Mass ratio] 1.3 {ratio} Normal 0.7-1.7 [facility] Comment on above: Order Comment: NN Performed By: #### L 506.0400, L500.4100, L501.9520, L501.53827, L500.2500 #### [facility] [address] [place], [address] EJHEU-1-RIYJ 0.2 g/dL Normal 0.0-0.4 [facility] Comment on above: Order Comment: NN Performed By: #### L 506.0400, L500.4100, L501.9520, L501.40721, L500.2500 #### [facility] [address] [place], [address] VOMBO-9-FBDS 0.7 g/dL Normal 0.4-1.0 [facility] Comment on above: Order Comment: NN Performed By: #### L 506.0400, L500.4100, L501.9520, L501.00932, L500.2500 #### [facility] [address] [place], [address] BETA GLOBULIN 1.1 g/dL Normal 0.7-1.3 [facility] Comment on above: Order Comment: NN Performed By: #### L 506.0400, L500.4100, L501.9520, L501.75649, L500.2500 #### [facility] [address] [place], [address] GAMMA GLOBULIN 0.7 g/dL Normal 0.4-1.8 [facility] Comment on above: Order Comment: NN Performed By: #### L 506.0400, L500.4100, L501.9520, L501.66577, L500.2500 #### [facility] [address] [place], [address] Globulin (S) [Mass/Vol] 2.7 g/dL Normal 2.2-3.9 [facility] Comment on above: Order Comment: NN Performed By: #### L 506.0400, L500.4100, L501.9520, L501.86369, L500.2500 #### [facility] [address] [place], [address] TR RESULT,S Comment Normal . [facility] Comment on above: Order Comment: NN Result Comment: No m onoclonality detected. Performed By: #### L 506.0400, L500.4100, L501.9520, L501.62472, L500.2500 #### [facility] [address] [place], [address] IMMUNOGLOB A QN 300 mg/dL Normal 87-352 [facility] Comment on above: Order Comment: NN Performed By: #### L 506.0400, L500.4100, L501.9520, L501.53720, L500.2500 #### [facility] [address] [place], [address] IMMUNOGLOB G QN 821 mg/dL Normal 586-1602 [facility] Comment on above: Order Comment: NN Performed By: #### L 506.0400, L500.4100, L501.9520, L501.20040, L500.2500 #### [facility] [address] [place], [address] IMMUNOGLOB M QN 81 mg/dL Normal 26-217 [facility] Comment on above: Order Comment: NN Performed By: #### L 506.0400, L500.4100, L501.9520, L501.97292, L500.2500 #### [facility] [address] [place], [address] M-James Not Observed Normal Not Observed [facility] Comment on above: Order Comment: NN Performed By: #### L 506.0400, L500.4100, L501.9520, L501.90189, L500.2500 #### [facility] [address] [place], [address] NOTE: Comment Normal . [facility] Comment on above: Order Comment: NN Result Comment: Prot ein electrophoresis scan will follow via computer, mail, or assistant loan processor delivery. Performed By: #### L 506.0400, L500.4100, L501.9520, L501.10633, L500.2500 #### [facility] [address] [place], [address] Protein [Mass/Vol] 6.1 g/dL Normal 6.0-8.5 [facility] Comment on above: Order Comment: NN Performed By: #### L 506.0400, L500.4100, L501.9520, L501.52953, L500.2500 #### [facility] [address] [place], [address] Immunoglobulins G/A/M/Alan IMMUNOGLOB E QN 12 IU/mL Normal 6-495 [facility] Comment on above: Order Comment: NN Performed By: #### L 506.0400, L500.4100, L501.9520, L501.73391, L500.2500 #### [facility] [place], [address] INGE w/ Reflex Mult Confirmon 09-13-2024 INGE TABLE Comment Normal . [facility] Comment on above: Result Comment: Auto antibody Disease Association Condition Frequency --------- Antinuclear Antibody, SLE, mixed connective Direct (INGE-D) tissue diseases --------- dsDNA SLE 40 - 60% --------- Chromatin Drug induced SLE 90% SLE 48 - 97% --------- SSA (Ro) SLE 25 - 35% Sjogren's Syndrome 40 - 70% Lupus 100% --------- SSB (La) SLE 10% Sjogren's Syndrome 30% --------- Sm (anti-Lamb) SLE 15 - 30% --------- HEMATOLOGY SUPERVISOR Mixed Connective Tissue Disease 95% (U1 nRNP, SLE 30 - 50% anti-ribonucleoprotein) Polymyositis and/or Dermatomyositis 20% --------- Scl-70 (antiDNA Scleroderma (diffuse) 20 - 35% topoisomerase) Crest 13% --------- Crystal-1 Polymyositis and/or Dermatomyositis 20 - 40% --------- Centromere B Scleroderma - Crest variant 80% Performed at: [address] [id number] State Archivist: Barrington Iraheta PhD, Phone: [phone] Performed By: #### L 541.6913 #### [facility] [address] [place] [address], [address] Result Comment: Auto antibody Disease Association Condition Frequency --------- Antinuclear Antibody, SLE, mixed connective Direct (INGE-D) tissue diseases --------- dsDNA SLE 40 - 60% --------- Chromatin Drug induced SLE 90% SLE 48 - 97% --------- SSA (Ro) SLE 25 - 35% Sjogren's Syndrome 40 - 70% Lupus 100% --------- SSB (La) SLE 10% Sjogren's Syndrome 30% --------- Sm (anti-Lamb) SLE 15 - 30% --------- HEMATOLOGY SUPERVISOR Mixed Connective Tissue Disease 95% (U1 nRNP, SLE 30 - 50% anti-ribonucleoprotein) Polymyositis and/or Dermatomyositis 20% --------- Scl-70 (antiDNA Scleroderma (diffuse) 20 - 35% topoisomerase) Crest 13% --------- Crystal-1 Polymyositis and/or Dermatomyositis 20 - 40% --------- Centromere B Scleroderma - Crest variant 80% INGE,DIRECT Positive Abnormal Negative [facility] Comment on above: Performed By: #### L 300.3900 #### [facility] [address] [facility] [address] [place], [place], [id number] Anti-Mitochondrial ABon 09-01 ANTIMITOCHON AB <20.0 Normal 0.0-20.0 [facility] Comment on above: Result Comment: Nega tive 0.0 - 20.0 Equivocal 20.1 - 24.9 Positive >24.9 Mitochondrial (M2) Antibodies are found in 90-96% of patients with primary biliary cirrhosis. Performed By: #### L 506.0400, L500.4100, L501.9520, L501.93195, L500.2500 #### [facility] [address] [place], [place], [address] [id number]-WE-Lqybbps DOrdered By: Lucero Gibbs on 09-10-2024 Vitamin D 25-Hydroxy 43.8 ng/mL [facility] Comment on above: Vitamin D 25(OH) Sta tus Range Deficiency <20 ng/mL (50nmol/L) Insufficiency 20 - 30 ng/mL (50 - 75 nmol/L) Sufficiency 30 - 100 ng/mL (75 - 250 nmol/L) Toxicity >100 ng/mL (>250 nmol/L) INGE serumOrdered By: Ike Gibbs on 09-10-2024 Anti-Nuclear Antibody Screen Positive High Negative [facility] Absolute neutrophil countOrd ered By: Ike Gibbs on 09-10-2024 Neutrophils (Bld) [#/Vol] 4.0 10*3/uL 2.0-7.7 [facility] Actin IgG QnOrdered By: Sylvia Gibbs on 09-10-2024 Anti-Smooth Muscle Antibody 1 Units 0-19 [facility] Comment on above: Negative 0 - 19 Weak positive 20 - 30 Moderate to strong positive >30 Actin Antibodies are found in 52-85% of patients with autoimmune hepatitis or chronic active hepatitis and in 22% of patients with primary biliary cirrhosis.Performed at: - [facility] [id number] Director: Barrington Iraheta PhD, Phone: [phone] at: - [facility] [id number] Director: Angeles Garsia MD, Phone: [phone] Addendum DocumentOrdered By: Ike Gibbs on 09-10-2024 Serum Immunofixation Comments Comment . [facility] Comment on above: Protein electrophore sis scan will follow via computer,mail, or assistant loan processor delivery. Albumin Elph [Mass/Vol]Order ed By: Ike Gibbs on 09-10-2024 Albumin [Mass/Vol] 3.4 g/dL 2.9-4.4 [facility] Albumin to globulin ratioOrd ered By: Ike Gibbs on 09-10-2024 Albumin/Globulin [Mass ratio] 0.9 {ratio} 0.9-2.4 [facility] Alpha 1 globulin Elph [Mass/ Vol]Ordered By: Ike Gibbs on 09-10-2024 Lapwf-1-Fygyjhvrh (TR) 0.2 g/dL 0.0-0.4 [facility] Kanmx-9-Aceqxvkbo (TR) 0.7 g/dL 0.4-1.0 [facility] Alpha fetoprotein measuremen t as tumor markerOrdered By: Ike Gibbs on 09-10-2024 Tumor Marker Alpha Fetoprotein 5.3 ng/mL 0.0-9.2 [facility] Comment on above: [employer] El ectrochemiluminescence Immunoassay(ECLIA)Values obtained with different assay methods or kits cannotbe used interchangeably. Results cannot be interpreted asabsolute evidence of the presence or absence of malignantdisease.This test is not interpretable in females. Basophil percentageOrdered B y: Ike Gibbs on 09-10-2024 Basophils/100 WBC (Bld) 0.8 % 0-1 [facility] Beta globulin Elph [Mass/Vol ]Ordered By: Ike Gibbs on 09-10-2024 Beta-Globulins (TR) 1.1 g/dL 0.7-1.3 [facility] Bilirubin, totalOrdered By: Ike Gibbs on 09-10-2024 Bilirubin [Mass/Vol] 1.40 mg/dL High 0.20-1.00 [facility] Comment on above: For patients on eltr ombopag therapy, use of Dimension [place] TBIL is not recommended. Blood urea nitrogen (BUN)/cr eatinine ratioOrdered By: Ike Gibbs on 09-10-2024 Urea nitrogen/Creatinine [Mass ratio] 15.1 mg/mg 06-20 [facility] C-reactive protein measureme nt by high sensitivity methodOrdered By: Ike Gibbs on 09-10-2024 C-Reactive Protein Extended Range < 2.90 mg/L 0.0-3.0 [facility] Comment on above: C-Reactive Protein ( CRP) provides useful information for thediagnosis, therapy and monitoring of inflammatory processesand associated diseases. For the evaluation of Relative Riskfor Cardiovascular Disease, a High Sensitivity CRP (HSCRP)should be ordered. CBC W/Diff, Automatedon 09-01 Absolute Lymph 0.42 X10 3/uL Low 0.83-4.51 [facility] Comment on above: Performed By: #### L 300.3900 #### [facility] [address] [place], [place], [id number] Absolute Neut 4.0 X10 3/uL Normal 2.0-7.7 [facility] Comment on above: Performed By: #### L 300.3900 #### [facility] [address] [place], [address] Basophils/100 WBC (Bld) 0.8 % Normal 0-1 [facility] Comment on above: Performed By: #### L 300.3900 #### [facility] [address] [place], [address] Eosinophils/100 WBC (Bld) 0.2 % Normal 0-5 [facility] Comment on above: Performed By: #### L 300.3900 #### [facility] [address] [place], [address] Erythrocyte distribution width (RBC) [Ratio] 14.3 % Normal 11.6-14.6 [facility] Comment on above: Performed By: #### L 300.3900 #### [facility] [address] [place], [address] Hematocrit (Bld) [Volume fraction] 34.6 % Low 37-47 [facility] Comment on above: Performed By: #### L 300.3900 #### [facility] [address] [place], [address] Hemoglobin (Bld) [Mass/Vol] 11.3 g/dL Low 12.0-15.0 [facility] Comment on above: Performed By: #### L 300.3900 #### [facility] [address] [place], [address] IG% 0.600 Normal 0.0-0.9 [facility] Comment on above: Result Comment: IG% - Immature Granulocytes (promyelocytes, myelocytes and metamyelocytes) > 1% indicates that a LEFT SHIFT is Present. Performed By: #### L 300.3900 #### [facility] [address] [place], [address] Lymphocytes/100 WBC (Bld) 8.3 % Low 19-41 [facility] Comment on above: Performed By: #### L 300.3900 #### [facility] [address] [place], [address] MCH (RBC) [Entitic mass] 32.0 pg Normal 27.0-32.0 [facility] Comment on above: Performed By: #### L 300.3900 #### [facility] [address] [place], [address] MCHC (RBC) [Mass/Vol] 32.7 g/dL Normal 32-36 [facility] Comment on above: Performed By: #### L 300.3900 #### [facility] [address] [place], [address] MCV (RBC) [Entitic vol] 98.0 fL Normal 81-99 [facility] Comment on above: Performed By: #### L 300.3900 #### [facility] [address] [place], [address] Monocytes/100 WBC (Bld) 10.8 % High 0-10 [facility] Comment on above: Performed By: #### L 300.3900 #### [facility] [place], [address] Neutrophils/100 WBC (Bld) 79.3 % High 47-70 [facility] Comment on above: Performed By: #### L 300.3900 #### [facility] [address] [place], [address] Nucleated RBC (Bld) [#/Vol] 0 10*3/uL Normal 0-5 [facility] Comment on above: Performed By: #### L 300.3900 #### [facility] [address] [place], [address] Platelet mean volume (Bld) [Entitic vol] 9.2 fL Normal 6.2-12.0 [facility] Comment on above: Performed By: #### L 300.3900 #### [facility] [address] [place], [address] Platelets (Bld) [#/Vol] 161 10*3/uL Normal 150-450 [facility] Comment on above: Performed By: #### L 300.3900 #### [facility] [address] [place], [address] RBC (Bld) [#/Vol] 3.53 10*6/uL Low 4.2-5.4 [facility] Comment on above: Performed By: #### L 300.3900 #### [facility] [address] [place], [address] RDW SD 50.0 fl High 35.1-43.9 [facility] Comment on above: Performed By: #### L 300.3900 #### [facility] [address] [place], [address] WBC (Bld) [#/Vol] 5.1 10*3/uL Normal 4.4-11.0 [facility] Comment on above: Performed By: #### L 300.3900 #### [facility] [address] [place], [address] Absolute Neut Normal 2.0-7.7 [facility] Comment on above: Result Comment: DUPL ICATE Performed By: #### L 300.3900 #### [facility] [address] [place], [address] HCT Normal 37-47 [facility] Comment on above: Result Comment: DUPL ICATE Performed By: #### L 300.3900 #### [facility] [address] [place], [address] HGB Normal 12.0-15.0 [facility] Comment on above: Result Comment: DUPL ICATE Performed By: #### L 300.3900 #### [facility] [address] [place], [address] MCH Normal 27.0-32.0 [facility] Comment on above: Result Comment: DUPL ICATE Performed By: #### L 300.3900 #### [facility] [address] [place], [address] MCHC Normal 32-36 [facility] Comment on above: Result Comment: DUPL ICATE Performed By: #### L 300.3900 #### [facility] [address] [place], [address] MCV Normal 81-99 [facility] Comment on above: Result Comment: DUPL ICATE Performed By: #### L 300.3900 #### [facility] [address] [place], [address] NEUT% Normal 47-70 [facility] Comment on above: Result Comment: DUPL ICATE Performed By: #### L 300.3900 #### [facility] [address] [place], [address] PLT Normal 150-450 [facility] Comment on above: Result Comment: DUPL ICATE Performed By: #### L 300.3900 #### [facility] [address] [place], [address] RBC Normal 4.2-5.4 [facility] Comment on above: Result Comment: DUPL ICATE Performed By: #### L 300.3900 #### [facility] [address] [place], [address] RDW CV Normal 11.6-14.6 [facility] Comment on above: Result Comment: DUPL ICATE Performed By: #### L 300.3900 #### [facility] [address] [place], [address] RDW SD Normal 35.1-43.9 [facility] Comment on above: Result Comment: DUPL ICATE Performed By: #### L 300.3900 #### [facility] [address] [place], [place], [address] WBC Normal 4.4-11.0 [facility] Comment on above: Result Comment: DUPL ICATE Performed By: #### L 300.3900 #### [facility] [address] [place], [address] CRPon 09-10-2024 C-REACTIVE PROT < 2.90 Normal 0.0-3.0 [facility] Comment on above: Result Comment: C-Re active Protein (CRP) provides useful information for the diagnosis, therapy and monitoring of inflammatory processes and associated diseases. For the evaluation of Relative Risk for Cardiovascular Disease, a High Sensitivity CRP (HSCRP) should be ordered. Performed By: #### L 300.3900 #### [facility] [address] [place], [place], [id number] Carbon dioxide measurementOr dered By: Ike Gibbs on 09-10-2024 CO2 [Moles/Vol] 25.0 mmol/L 21.0-32.0 [facility] Centromere B antibody assayO rdered By: Ike Gibbs on 09-10-2024 Centromere B Antibody <0.2 AI 0.0-0.9 [facility] Comment on above: Previous reported re sult: TNP AIEdited by: HERMELINDO on 09/13/24:1507 AMENDED REPORT 09/13/24 1507 ANTI-CENT B previously reported as: Test not performed Chloride measurementOrdered By: Ike Gibbs on 09-10-2024 Chloride [Moles/Vol] 110 mmol/L High 98-107 [facility] Chromatin antibody assayOrde red By: Ike Gibbs on 09-10-2024 Antichromatin Antibodies <0.2 AI 0.0-0.9 [facility] Comment on above: Previous reported re sult: TNP AIEdited by: HERMELINDO on 09/13/24:1507 AMENDED REPORT 09/13/24 1507 ANTICHROMATIN previously reported as: Test not performed Comprehensive Metabolic Prof ilon 09-10-2024 Albumin [Mass/Vol] 3.1 g/dL Low 3.2-5.0 [facility] Comment on above: Performed By: #### L 300.3900 #### [facility] [address] [place], [address] Albumin/Globulin [Mass ratio] 0.9 {ratio} Normal 0.9-2.4 [facility] Comment on above: Performed By: #### L 300.3900 #### [facility] [address] [place], [address] ALK P 92 U/L Normal 45-117 [facility] Comment on above: Performed By: #### L 300.3900 #### [facility] [address] [place], [address] ALT [Catalytic activity/Vol] 21 U/L Normal 13-56 [facility] Comment on above: Performed By: #### L 300.3900 #### [facility] [address] [place], [address] AST [Catalytic activity/Vol] 22 U/L Normal 15-37 [facility] Comment on above: Performed By: #### L 300.3900 #### [facility] [address] [place], [address] Bilirubin [Mass/Vol] 1.40 mg/dL High 0.20-1.00 [facility] Comment on above: Result Comment: For patients on eltrombopag therapy, use of Dimension [place] TBIL is not recommended. Performed By: #### L 300.3900 #### [facility] [address] [place], [address] BUN/CRE 15.1 RATIO Normal 10-20 [facility] Comment on above: Performed By: #### L 300.3900 #### [facility] [address] [place], [address] CA,Total 8.7 mg/dL Normal 8.5-10.1 [facility] Comment on above: Performed By: #### L 300.3900 #### [facility] [address] [place], [address] Chloride [Moles/Vol] 110 mmol/L High 98-107 [facility] Comment on above: Performed By: #### L 300.3900 #### [facility] [address] [place], [address] CO2 [Moles/Vol] 25.0 mmol/L Normal 21.0-32.0 [facility] Comment on above: Performed By: #### L 300.3900 #### [facility] [address] [place], [address] Creatinine [Mass/Vol] 0.93 mg/dL Normal 0.55-1.02 [facility] Comment on above: Result Comment: The validity of the calculated GFR GFRAA in patients over 70 years has not been determined. Clinical correlation is essential. Performed By: #### L 300.3900 #### [facility] [address] [place], [address] EST GFR - AA 81 mL/min Normal >60 [facility] Comment on above: Result Comment: Afri can Kenyan GFR Calc Performed By: #### L 300.3900 #### [facility] [address] [place], [address] GAP 5 Normal 5-15 [facility] Comment on above: Performed By: #### L 300.3900 #### [facility] [address] [place], [address] GFR/1.73 sq M.predicted among non-blacks MDRD (S/P/Bld) [Vol rate/Area] 67 mL/min/{1.73_m2} Normal >60 [facility] Comment on above: Result Comment: Non- GFR Calc Performed By: #### L 300.3900 #### [facility] [address] [place], [address] Globulin (S) [Mass/Vol] 3.4 g/dL Normal 2.2-4.2 [facility] Comment on above: Performed By: #### L 300.3900 #### [facility] [address] [place], [address] Glucose [Mass/Vol] 108 mg/dL High 74-106 [facility] Comment on above: Result Comment: Fast ing Glucose result from 100 to 125 mg/dL suggests IMPAIRED HOMEOSTASIS per A.D.A. criteria. Performed By: #### L 300.3900 #### [facility] [address] [place], [address] Potassium [Moles/Vol] 3.6 mmol/L Normal 3.5-5.1 [facility] Comment on above: Performed By: #### L 300.3900 #### [facility] [address] [place], [address] Sodium [Moles/Vol] 140 mmol/L Normal 136-145 [facility] Comment on above: Performed By: #### L 300.3900 #### [facility] [address] [place], [address] T PROT 6.5 g/dL Normal 6.4-8.2 [facility] Comment on above: Performed By: #### L 300.3900 #### [facility] [address] [place], [address] Urea nitrogen [Mass/Vol] 14 mg/dL Normal 7-18 [facility] Comment on above: Performed By: #### L 300.3900 #### [facility] [address] [place], [address] DNA double strand Ab Qn (S)O rdered By: Ike Gibbs on 09-10-2024 Anti-Double Strand DNA Antibody 21 IU/mL High 0-9 [facility] Comment on above: Negative <5 Equivoca l 5 - 9 Positive >9Previous reported result: TNP IU/mLEdited by: HERMELINDO on 09/13/24:1507 AMENDED REPORT 09/13/24 1507 dsDNA AB previously reported as: Test not performed Endomysial IgA antibody assa yOrdered By: Ike Gibbs on 09-10-2024 Endomysial IgA Antibody Negative Negative [facility] Eosinophil percentageOrdered By: Ike Gibbs on 09-10-2024 Eosinophils/100 WBC (Bld) 0.2 % 0-5 [facility] Erythrocyte distribution wid th ratioOrdered By: Ike Gibbs on 09-10-2024 Erythrocyte distribution width (RBC) [Ratio] 14.3 % 11.6-14.6 [facility] Erythrocyte distribution wid th standard deviationOrdered By: Ike Gibbs on 09-10-2024 Erythrocyte distribution width (RBC) [Entitic vol] 50.0 fL High 35.1-43.9 [facility] Estimated glomerular filtrat ion rate (GFR) AmericanOrdered By: Ike Gibbs on 09-10-2024 Estimated GFR (MDRD) Amer 81 mL/min >60 [facility] Comment on above: GFR Calc Gamma globulin Elph [Mass/Vo l]Ordered By: Ike Gibbs on 09-10-2024 Gamma Globulins (TR) 0.7 g/dL 0.4-1.8 [facility] Glomerular filtration rate ( GFR) estimationOrdered By: Ike Gibbs on 09-10-2024 Estimated GFR (MDRD) Non-Af Amer 67 mL/min >60 [facility] Comment on above: Non- GFR Calc Glucose measurementOrdered B y: Ike Gibbs on 09-10-2024 Glucose [Mass/Vol] 108 mg/dL High 74-106 [facility] Comment on above: Fasting Glucose resu lt from 100 to 125 mg/dL suggests IMPAIRED HOMEOSTASIS per A.D.A. criteria. Hematocrit Auto (Bld) [Volum e fraction]Ordered By: Ike Gibbs on 09-10-2024 Hematocrit (Bld) [Volume fraction] 34.6 % Low 37-47 [facility] Hemoglobin A1con 09-10-2024 HbA1c (Bld) [Mass fraction] 5.2 % Normal 3.8-5.6 [facility] Comment on above: Result Comment: Norm al < 5.7 % Prediabetic 5.7 - 6.4 % Diabetic >or= 6.5 % Please note range changes. Performed By: #### L 506.0400, L500.4100, L501.9520, L501.18140, L500.2500 #### [facility] [address] [place], [address] Hemoglobin A1c percentageOrd ered By: Ike Gibbs on 09-10-2024 HbA1c (Bld) [Mass fraction] 5.2 % 3.8-5.6 [facility] Comment on above: Normal < 5.7 % Predi abetic 5.7 - 6.4 % Diabetic >or= 6.5 % Please note range changes. Hemoglobin measurementOrdere d By: Ike Gibbs on 09-10-2024 Hemoglobin (Bld) [Mass/Vol] 11.3 g/dL Low 12.0-15.0 [facility] IgA [Mass/Vol]Ordered By: Tracee Gibbs on 09-10-2024 Immunoglobulin A 300 mg/dL 87-352 [facility] IgEOrdered By: Ike Gibbs on 09-10-2024 Immunoglobulin E 12 IU/mL 6-495 [facility] IgG [Mass/Vol]Ordered By: Tracee Gibbs on 09-10-2024 Immunoglobulin G 821 mg/dL [phone] [facility] Immature granulocytes/100 WB C Auto (Bld)Ordered By: kIe Gibbs on 09-10-2024 Immature granulocytes/100 WBC (Bld) 0.600 % 0.0-0.9 [facility] Comment on above: IG% - Immature Granu locytes (promyelocytes, myelocytes and metamyelocytes) > 1% indicates that a LEFT SHIFT is Present. Immunoglobulin M measurement Ordered By: Ike Gibbs on 09-10-2024 Immunoglobulin M 81 mg/dL 26-217 [facility] International normalized rat io (INR) calculationOrdered By: Ike Gibbs on 09-10-2024 INR Coag (Bld) [Relative time] 4.4 {INR} High [facility] Comment on above: CRITICAL VALUE ALAS D TO DR. RUFFIN09/10/24 6165 Judie Prather.RESULTS READ BACK BY SAME. Interpretation IEP [Interp]O rdered By: Ike Gibbs on 09-10-2024 Immunofixation Screen Comment . [facility] Comment on above: No monoclonality det ected. Crystal-1 antibody assayOrdered B y: Ike Gibbs on 09-10-2024 CRYSTAL-1 Antibody <0.2 AI 0.0-0.9 [facility] Comment on above: Previous reported re sult: TNP AIEdited by: HERMELINDO on 09/13/24:1507 AMENDED REPORT 09/13/24 1507 ANTI-CRYSTAL previously reported as: Test not performed Laboratory - Chemistry and C hemistry - challengeOrdered By: Ike Gibbs on 09-10-2024 AST [Catalytic activity/Vol] 22 U/L 15-37 [facility] Lipaseon 09-10-2024 Lipase [Catalytic activity/Vol] 39 U/L Normal 13-75 [facility] Comment on above: Result Comment: Fabian kincaid note: LIPASE revised reference range effective 22. New Lipase methodology. Expected to produce lower values than the previous assay method. NEW Reference Range: 13 - 75 U/L Performed By: #### L 506.0400, L500.4100, L501.9520, L501.76195, L500.2500 #### [facility] [address] [facility] [place], [place], [address] Lipase measurementOrdered By : Ike Gibbs on 09-10-2024 Lipase [Catalytic activity/Vol] 39 U/L 13-75 [facility] Comment on above: Please note:LIPASE r evised reference range effective 22. New Lipase methodology. Expected to produce lower values than the previous assay method. NEW Reference Range: 13 - 75 U/L Lymphocytes Auto (Unsp spec) [#/Vol]Ordered By: Ike Gibbs on 09-10-2024 Lymphocytes (Bld) [#/Vol] 0.42 10*3/uL Low 0.83-4.51 [facility] Lymphocytes/100 WBC Auto (Un sp spec)Ordered By: Ike Gibbs on 09-10-2024 Lymphocytes/100 WBC (Bld) 8.3 % Low 19-41 [facility] MCV (mean corpuscular volume ) determinationOrdered By: Ike Gibbs on 09-10-2024 MCV (RBC) [Entitic vol] 98.0 fL 81-99 [facility] Mean corpuscular hemoglobin (MCH) determinationOrdered By: Ike Gibbs on 09-10-2024 MCH (RBC) [Entitic mass] 32.0 pg 27.0-32.0 [facility] Mean corpuscular hemoglobin concentration (MCHC) determinationOrdered By: Ike Gibbs on 09-10-2024 MCHC (RBC) [Mass/Vol] 32.7 g/dL 32-36 [facility] Mean platelet volume determi nationOrdered By: Ike Gibbs on 09-10-2024 Platelet mean volume (Bld) [Entitic vol] 9.2 fL 6.2-12.0 [facility] Mitochondria Ab Ql (S)Ordere d By: Ike Gibbs on 09-10-2024 Anti-Mitochondrial Antibody <20.0 Units 0.0-20.0 [facility] Comment on above: Negative 0.0 - 20.0 Equivocal 20.1 - 24.9 Positive >24.9Mitochondrial (M2) Antibodies are found in 90-96% ofpatients with primary biliary cirrhosis. Monocyte percentageOrdered B y: Ike Gibbs on 09-10-2024 Monocytes/100 WBC (Bld) 10.8 % High 0-10 [facility] Neutrophil percentageOrdered By: Ike Gibbs on 09-10-2024 Neutrophils/100 WBC (Bld) 79.3 % High 47-70 [facility] Nucleated red blood cell per centageOrdered By: Ike Gibbs on 09-10-2024 Nucleated RBC/100 WBC (Bld) [Ratio] 0 % 0-5 [facility] Platelet countOrdered By: Tracee Gibbs on 09-10-2024 Platelets (Bld) [#/Vol] 161 10*3/uL 150-450 [facility] Potassium measurementOrdered By: Ike Gibbs on 09-10-2024 Potassium [Moles/Vol] 3.6 mmol/L 3.5-5.1 [facility] Protein Fractions Immunofixa tion Duglas [Interp]Ordered By: Ike Gibbs on 09-10-2024 M-James (TR) Not Observed g/dL Not Observed [facility] Prothrombin Time w/INRon INR Coag (PPP) [Relative time] 4.4 {INR} Invalid Interpretation Code [facility] Comment on above: Result Comment: CRIT ICAL VALUE CALLED TO DR. RUFFIN 09/10/24 0562 Judie Prather. RESULTS READ BACK BY SAME. Performed By: #### L 506.0400, L500.4100, L501.9520, L501.64122, L500.2500 #### [facility] [address] [place], [address] PT Coag (PPP) [Time] 42.9 s High 11.7-14.9 [facility] Comment on above: Performed By: #### L 506.0400, L500.4100, L501.9520, L501.35693, L500.2500 #### [facility] [address] [place], [address] Prothrombin timeOrdered By: Ike Gibbs on 09-10-2024 PT Coag (PPP) [Time] 42.9 s High 11.7-14.9 [facility] RBC Auto (Bld) [#/Vol]Ordere d By: Ike Gibbs on 09-10-2024 RBC (Bld) [#/Vol] 3.53 10*6/uL Low 4.2-5.4 [facility] HEMATOLOGY SUPERVISOR abOrdered By: Ike Burt and on 09-10-2024 HEMATOLOGY SUPERVISOR Antibody <0.2 AI 0.0-0.9 [facility] Comment on above: Previous reported re sult: TNP AIEdited by: HERMELINDO on 09/13/24:1507 AMENDED REPORT 09/13/24 1507 HEMATOLOGY SUPERVISOR Ab previously reported as: Test not performed SCL-70 extractable nuclear A b Qn (S)Ordered By: Ike Gibbs on 09-10-2024 Scl-70 (Scleroderma) Antibody <0.2 AI 0.0-0.9 [facility] Comment on above: Previous reported re sult: TNP AIEdited by: HERMELINDO on 09/13/24:1507 AMENDED REPORT 09/13/24 1507 ANTISCLER previously reported as: Test not performed SS-A IgG antibody assayOrder ed By: Ike Gibbs on 09-10-2024 SS-A/Ro IgG Antibody < 0.2 AI 0.0-0.9 [facility] Comment on above: Previous reported re sult: TNP AIEdited by: HERMELINDO on 09/13/24:1507 AMENDED REPORT 09/13/24 1507 Anti-SS-A previously reported as: Test not performed SS-B IgG antibody assayOrder ed By: Ike Gibbs on 09-10-2024 SS-B/La IgG Antibody < 0.2 AI 0.0-0.9 [facility] Comment on above: Previous reported re sult: TNP AIEdited by: HERMELINDO on 09/13/24:1507 AMENDED REPORT 09/13/24 1507 Anti-SS-B previously reported as: Test not performed Serum albumin/globulin ratio Ordered By: Ike Gibbs on 09-10-2024 Albumin/Globulin (TR) 1.3 0.7-1.7 [facility] Serum anion gap measurementO rdered By: Ike Gibbs on 09-10-2024 Anion gap [Moles/Vol] 5 mmol/L 5-15 [facility] Serum globulin measurement ( mass/volume)Ordered By: Ike Gibbs on 09-10-2024 Globulin (S) [Mass/Vol] 2.7 g/dL 2.2-3.9 [facility] Serum or plasma alanine khalil otransferase (ALT) measurementOrdered By: Ike Gibbs on 09-10-2024 ALT [Catalytic activity/Vol] 21 U/L 13-56 [facility] Serum or plasma albumin otoniel urement (mass/volume)Ordered By: Ike Gibbs on 09-10-2024 Albumin [Mass/Vol] 3.1 g/dL Low 3.2-5.0 [facility] Serum or plasma alkaline sage sphatase measurementOrdered By: Ike Gibbs on 09-10-2024 ALP [Catalytic activity/Vol] 92 U/L 45-117 [facility] Serum or plasma calcium otoniel urement (mass/volume)Ordered By: Ike Gibbs on 09-10-2024 Calcium [Mass/Vol] 8.7 mg/dL 8.5-10.1 [facility] Serum or plasma creatinine m easurement (mass/volume)Ordered By: Ike Gibbs on 09-10-2024 Creatinine [Mass/Vol] 0.93 mg/dL 0.55-1.02 [facility] Comment on above: The validity of the calculated GFR & GFRAA in patients over 70 years has not been determined. Clinical correlation is essential. Serum or plasma protein otoniel urement (mass/volume)Ordered By: Ike Gibbs on 09-10-2024 Protein [Mass/Vol] 6.1 g/dL 6.0-8.5 [facility] Serum or plasma urea nitroge n measurement (mass/volume)Ordered By: Ike Gibbs on 09-10-2024 Urea nitrogen [Mass/Vol] 14 mg/dL 7-18 [facility] Lamb antibody assayOrdered By: Ike Gibbs on 09-10-2024 SM Antibody <0.2 AI 0.0-0.9 [facility] Comment on above: Previous reported re sult: TNP AIEdited by: HERMELINDO on 09/13/24:1507 AMENDED REPORT 09/13/24 1507 TAN Ab previously reported as: Test not performed Sodium levelOrdered By: Sylvia Gibbs on 09-10-2024 Sodium [Moles/Vol] 140 mmol/L 136-145 [facility] Total proteinOrdered By: Kisha Gibbs on 09-10-2024 Protein [Mass/Vol] 6.5 g/dL 6.4-8.2 [facility] Vitamin D,25 Hydroxyon 09-10 Vitamin D 25-OH 43.8 ng/mL Normal [facility] Comment on above: Result Comment: Adelaida min D 25(OH) Status Range Deficiency <20 ng/mL (50nmol/L) Insufficiency 20 - 30 ng/mL (50 - 75 nmol/L) Sufficiency 30 - 100 ng/mL (75 - 250 nmol/L) Toxicity >100 ng/mL (>250 nmol/L) Performed By: #### L 300.3900 #### [facility] [address] [place], [address] White blood cell (WBC) count Ordered By: Ike Gibbs on 09-10-2024 WBC (Bld) [#/Vol] 5.1 10*3/uL 4.4-11.0 [facility] tTG IgA Qn (S)Ordered By: Tracee Gibbs on 09-10-2024 Tissue Transglutaminase IgA Ab <2 U/mL 0-3 [facility] Comment on above: Negative 0 - 3 Weak Positive 4 - 10 Positive >10 Tissue Transglutaminase (tTG) has been identified as the endomysial antigen. Studies have demonstr- ated that endomysial IgA antibodies have over 99% specificity for gluten sensitive enteropathy. Basic Metabolic Profile (BMP )on 08-06-2024 BUN/CRE 18.1 RATIO Normal - [facility] Comment on above: Performed By: #### L 506.0400, L500.4100, L501.9520, L501.76198, L500.2500 #### [facility] [address] [place], [address] CA,Total 8.8 mg/dL Normal 8.5-10.1 [facility] Comment on above: Performed By: #### L 506.0400, L500.4100, L501.9520, L501.00261, L500.2500 #### [facility] [address] [place], [address] Chloride [Moles/Vol] 109 mmol/L High 98-107 [facility] Comment on above: Performed By: #### L 506.0400, L500.4100, L501.9520, L501.38985, L500.2500 #### [facility] [address] [place], [address] CO2 [Moles/Vol] 25.0 mmol/L Normal 21.0-32.0 [facility] Comment on above: Performed By: #### L 506.0400, L500.4100, L501.9520, L501.97999, L500.2500 #### [facility] [address] [place], [address] Creatinine [Mass/Vol] 1.16 mg/dL High 0.55-1.02 [facility] Comment on above: Result Comment: The validity of the calculated GFR GFRAA in patients over 70 years has not been determined. Clinical correlation is essential. Performed By: #### L 506.0400, L500.4100, L501.9520, L501.55643, L500.2500 #### [facility] [address] [place], [address] EST GFR - AA 62 mL/min Normal >60 [facility] Comment on above: Result Comment: Afri can Kenyan GFR Calc Performed By: #### L 506.0400, L500.4100, L501.9520, L501.39664, L500.2500 #### [facility] [address] [place], [address] GAP 5 Normal 5-15 [facility] Comment on above: Performed By: #### L 506.0400, L500.4100, L501.9520, L501.53504, L500.2500 #### [facility] [address] [place], [address] GFR/1.73 sq M.predicted among non-blacks MDRD (S/P/Bld) [Vol rate/Area] 51 mL/min/{1.73_m2} Low >60 [facility] Comment on above: Result Comment: Non- GFR Calc Performed By: #### L 506.0400, L500.4100, L501.9520, L501.74827, L500.2500 #### [facility] [address] [place], [address] Glucose [Mass/Vol] 107 mg/dL High 74-106 [facility] Comment on above: Result Comment: Fast ing Glucose result from 100 to 125 mg/dL suggests IMPAIRED HOMEOSTASIS per A.D.A. criteria. Performed By: #### L 506.0400, L500.4100, L501.9520, L501.27233, L500.2500 #### [facility] [address] [place], [address] Potassium [Moles/Vol] 4.1 mmol/L Normal 3.5-5.1 [facility] Comment on above: Performed By: #### L 506.0400, L500.4100, L501.9520, L501.29484, L500.2500 #### [facility] [address] [place], [address] Sodium [Moles/Vol] 140 mmol/L Normal 136-145 [facility] Comment on above: Performed By: #### L 506.0400, L500.4100, L501.9520, L501.28565, L500.2500 #### [facility] [address] [place], [address] Urea nitrogen [Mass/Vol] 21 mg/dL High 7-18 [facility] Comment on above: Performed By: #### L 506.0400, L500.4100, L501.9520, L501.99998, L500.2500 #### [facility] [address] [place], [address] Blood urea nitrogen (BUN)/cr eatinine ratioOrdered By: Sarai Watkins on 08-06-2024 Urea nitrogen/Creatinine [Mass ratio] 18.1 mg/mg 10-20 [facility] Carbon dioxide measurementOr dered By: Sarai Watkins on 08-06-2024 CO2 [Moles/Vol] 25.0 mmol/L 21.0-32.0 [facility] Chloride measurementOrdered By: Sarai Watkins on 08-06-2024 Chloride [Moles/Vol] 109 mmol/L High 98-107 [facility] Estimated glomerular filtrat ion rate (GFR) AmericanOrdered By: Sarai Watkins on 08-06-2024 Estimated GFR (MDRD) Amer 62 mL/min >60 [facility] Comment on above: GFR Calc Glomerular filtration rate ( GFR) estimationOrdered By: Sarai Watkins on 08-06-2024 Estimated GFR (MDRD) Non-Af Amer 51 mL/min Low >60 [facility] Comment on above: Non- GFR Calc Glucose measurementOrdered B y: Sarai Watkins on 08-06-2024 Glucose [Mass/Vol] 107 mg/dL High 74-106 [facility] Comment on above: Fasting Glucose resu lt from 100 to 125 mg/dL suggests IMPAIRED HOMEOSTASIS per A.D.A. criteria. Potassium measurementOrdered By: Sarai Watkins on 08-06-2024 Potassium [Moles/Vol] 4.1 mmol/L 3.5-5.1 [facility] Serum anion gap measurementO rdered By: Sarai Watkins on 08-06-2024 Anion gap [Moles/Vol] 5 mmol/L 5-15 [facility] Serum or plasma calcium otoniel urement (mass/volume)Ordered By: Sarai Watkins on 08-06-2024 Calcium [Mass/Vol] 8.8 mg/dL 8.5-10.1 [facility] Serum or plasma creatinine m easurement (mass/volume)Ordered By: Sarai Watkins on 08-06-2024 Creatinine [Mass/Vol] 1.16 mg/dL High 0.55-1.02 [facility] Comment on above: The validity of the calculated GFR & GFRAA in patients over 70 years has not been determined. Clinical correlation is essential. Serum or plasma urea nitroge n measurement (mass/volume)Ordered By: Sarai Watkins on 08-06-2024 Urea nitrogen [Mass/Vol] 21 mg/dL High 7-18 [facility] Sodium levelOrdered By: Sarai Watkins on 08-06-2024 Sodium [Moles/Vol] 140 mmol/L 136-145 [facility] Prothrombin Time w/INRon INR Coag (PPP) [Relative time] 1.5 {INR} Normal [facility] Comment on above: Performed By: #### L 500.2500 #### [facility] [address] [place], [address] PT Coag (PPP) [Time] 18.3 s High 11.7-14.9 [facility] Comment on above: Performed By: #### L 500.2500 #### [facility] [address] [place], [address] Prothrombin Time w/INRon INR Coag (PPP) [Relative time] 2.1 {INR} Normal [facility] Comment on above: Performed By: #### L 300.3900 #### [facility] [address] [place], [address] PT Coag (PPP) [Time] 23.5 s High 11.7-14.9 [facility] Comment on above: Performed By: #### L 300.3900 #### [facility] [address] [place], [address] BNP,B-Type NATRIURETIC PEPTI Jb 06-28-2024 Natriuretic peptide B (Bld) [Mass/Vol] 267.9 pg/mL High 0-100 [facility] Comment on above: Order Comment: DR. Rl LOYA ORDERED PTDR. WATKINS ORDERED CBC, LIPID, BTNP Performed By: #### L 506.0400, L500.4100, L501.9520, L501.92050, L500.2500 #### [facility] [address] [place], [address] CBC-Complete Blood Cnt No Di ffon 06-28-2024 Erythrocyte distribution width (RBC) [Ratio] 13.3 % Normal 11.6-14.6 [facility] Comment on above: Performed By: #### L 506.0400, L500.4100, L501.9520, L501.45486, L500.2500 #### [facility] [address] [place], [address] Hematocrit (Bld) [Volume fraction] 39.6 % Normal 37-47 [facility] Comment on above: Performed By: #### L 506.0400, L500.4100, L501.9520, L501.07295, L500.2500 #### [facility] [address] [place], [address] Hemoglobin (Bld) [Mass/Vol] 12.7 g/dL Normal 12.0-15.0 [facility] Comment on above: Performed By: #### L 506.0400, L500.4100, L501.9520, L501.01014, L500.2500 #### [facility] [address] [place], [address] MCH (RBC) [Entitic mass] 31.1 pg Normal 27.0-32.0 [facility] Comment on above: Performed By: #### L 506.0400, L500.4100, L501.9520, L501.47319, L500.2500 #### [facility] [address] [place], [address] MCHC (RBC) [Mass/Vol] 32.1 g/dL Normal 32-36 [facility] Comment on above: Performed By: #### L 506.0400, L500.4100, L501.9520, L501.25741, L500.2500 #### [facility] [address] [place], [address] MCV (RBC) [Entitic vol] 97.1 fL Normal 81-99 [facility] Comment on above: Performed By: #### L 506.0400, L500.4100, L501.9520, L501.64992, L500.2500 #### [facility] [address] [place], [address] Platelet mean volume (Bld) [Entitic vol] 9.4 fL Normal 6.2-12.0 [facility] Comment on above: Performed By: #### L 506.0400, L500.4100, L501.9520, L501.90024, L500.2500 #### [facility] [address] [place], [address] Platelets (Bld) [#/Vol] 179 10*3/uL Normal 150-450 [facility] Comment on above: Performed By: #### L 506.0400, L500.4100, L501.9520, L501.83623, L500.2500 #### [facility] [address] [place], [address] RBC (Bld) [#/Vol] 4.08 10*6/uL Low 4.2-5.4 [facility] Comment on above: Performed By: #### L 506.0400, L500.4100, L501.9520, L501.99988, L500.2500 #### [facility] [address] [place], [address] RDW SD 47.8 fl High 35.1-43.9 [facility] Comment on above: Performed By: #### L 506.0400, L500.4100, L501.9520, L501.75779, L500.2500 #### [facility] [address] [place], [address] WBC (Bld) [#/Vol] 5.3 10*3/uL Normal 4.4-11.0 [facility] Comment on above: Performed By: #### L 506.0400, L500.4100, L501.9520, L501.16665, L500.2500 #### [facility] [address] [place], [address] Lipid Profileon 06-28-2024 Cholesterol [Mass/Vol] 178 mg/dL Normal 200 [facility] Comment on above: Result Comment: <200 mg/dL Desirable 200-240 mg/dL Borderline >240 mg/dL High Risk Performed By: #### L 506.0400, L500.4100, L501.9520, L501.63782, L500.2500 #### [facility] [address] [place], [address] Cholesterol in HDL [Mass/Vol] 106 mg/dL Normal [facility] Comment on above: Result Comment: The drugs N-Acetylcysteine and Metamizole may falsely depress this assay. Reference Range HDL <40 mg/dL Low HDL Cholesterol HDL >or= 60 mg/dL High HDL Cholesterol Performed By: #### L 506.0400, L500.4100, L501.9520, L501.85795, L500.2500 #### [facility] [address] [place], [address] Cholesterol in LDL [Mass/Vol] 24 mg/dL Normal 0-130 [facility] Comment on above: Performed By: #### L 506.0400, L500.4100, L501.9520, L501.40889, L500.2500 #### [facility] [address] [place], [address] Cholesterol in VLDL [Mass/Vol] 48 mg/dL High 5-40 [facility] Comment on above: Performed By: #### L 506.0400, L500.4100, L501.9520, L501.40421, L500.2500 #### [facility] [address] [place], [address] Triglyceride [Mass/Vol] 241 mg/dL High [facility] Comment on above: Result Comment: The drugs N-Acetylcysteine and Metamizole may falsely depress this assay. Serum Triglycerides Reference Interval Normal <150 mg/dL Borderline high 150 - 199 mg/dL High 200 - 499 mg/dL Very High > or = 500 mg/dL Performed By: #### L 506.0400, L500.4100, L501.9520, L501.08279, L500.2500 #### [facility] [address] [place], [place], [address] Prothrombin Time w/INRon INR Coag (PPP) [Relative time] 3.0 {INR} Normal [facility] Comment on above: Order Comment: Comme nts: STANDING ORDER: Fax to [phone] (pt stopped Eliquis) Performed By: #### L 506.0400, L500.4100, L501.9520, L501.85362, L500.2500 #### [facility] [address] [place], [place], [address] PT Coag (PPP) [Time] 30.8 s High 11.7-14.9 [facility] Comment on above: Order Comment: Comme nts: STANDING ORDER: Fax to [phone] (pt stopped Eliquis) Performed By: #### L 506.0400, L500.4100, L501.9520, L501.59819, L500.2500 #### [facility] [address] [facility] [place], [place], [address] CNOVSPon 12-09-2023 CNOVS Visit (SP) Office (HEMAWS) -------- DEE SHEPHERD ([id number]) 1970 F Date Time Provider Department 12/09/23 9:00 AM RONAL MACDONALD During your visit today, we recorded the following information about you: Temperature Pulse Blood pressure Weight 97.5 degrees 58/minute 125/84 116.8 kg Height 1.68 m Ronal Macdonald MD 12/09/2023 12:33 PM Signed HISTORY OF PRESENT ILLNESS: Dee Shepherd is a 53 year old female remote history of DVT (possibly 10 years ago) on short course (3 months) of ac at that time, now here with newer dx APS, has been on eliquis for past 5 years, has been on for recurrent atrial fibrillation. Has pulmonary hypertension, dx on basis of heart catheterization. Done around time of atrial fibrillation was diagnosed. No history of miscarriage. Mention made in PMH re PE, but I see no scan results, pt unaware CLINICAL IMPRESSION: Pulmonary HTN IgG positive anticardiolipin antibodies RECOMMENDATION/PLAN: 1. She requires indefinite anticoagulation from a cardiac standpoint, this will cover us from a hypercoagulable standpoint. 2. No further work up needed 3. See back prn Written and verbal health teaching given to patient, patient verbalizes understanding and agrees with treatment plan. PAST MEDICAL HISTORY Diagnosis Date Atrial fibrillation (HCC) COPD (chronic obstructive pulmonary disease) (HCC) DDD (degenerative disc disease), lumbar Deep vein thrombosis (HCC) 04/2016 right leg Dysthymic disorder Depression (non-psychotic) Generalized anxiety disorder Anxiety, Generalized Heartburn Hypertension 11/12/2013 Iron deficiency anemia secondary to inadequate dietary iron intake 06/25/2019 Liver fibrosis Migraine with aura Obstructive sleep apnea Other and unspecified alcohol dependence, unspecified drinking behavior ETOH depend. syn. Pulmonary emboli (HCC) 04/2016 Pulmonary hypertension (HCC) Systemic lupus erythematosus (HCC) Tobacco use disorder PAST SURGICAL HISTORY Procedure Laterality Date DELIVERY ONLY , low cervical COLONOSCOPY FLX DX W/COLLJ SPEC WHEN PFRMD 07/07/2018 normal - 10 year follow up EGD TRANSORAL BIOPSY SINGLE/MULTIPLE 07/07/2018 gastritis ESOPHAGOGASTRODUODENOSCO PY TRANSORAL DIAGNOSTIC 08/23/2015 EGD PAST SURGICAL HISTORY OF dr yates 06/29/2010 left shoulder repair, tendon repair, calcium deposits removed PAST SURGICAL HISTORY OF 07/2011 nasal surgery PAST SURGICAL HISTORY OF Right 2011 right shoulder surgery PAST SURGICAL HISTORY OF 01/18/2021 lap roddy fundiplication REMOVAL GALLBLADDER 2020 VAGINAL HYSTERECTOMY UTERUS 250 GM/< 2004 Hysterectomy, vaginal cervix and uterus FAMILY HISTORY Problem Relation Age of Onset Cancer Mother metastatic cancer- unsure of origin Cancer Father lung Alcohol/Drug Father Cataract Paternal Grandfather Glaucoma Paternal Grandfather Alzheimer's Disease Paternal Grandfather Social History Tobacco Use Smoking status: Former Packs/day: 0.50 Years: 20.00 Additional pack years: 0.00 Total pack years: 10.00 Types: Cigarettes Smokeless tobacco: Never Tobacco comments: 09/04 to 09/02 ppd Vaping Use Vaping Use: Never used Substance Use Topics Alcohol use: Yes Comment: OCC quit december 08, 2018 Drug use: No ALLERGIES: ALLERGIES Allergen Reactions Doxycycline Rash Palmar rash/discolration/blood blisters - occurred on two separate occasions Environmental [Othe* Hydrocodone Itching Milk Mushrooms [Other] Pollen CURRENT OUTPATIENT MEDICATIONS: rosuvastatin (CRESTOR) 10 mg tabletTake 10 mg by mouth once daily.Disp: Rfl: metoprolol succinate ER (TOPROL XL) 50 mg 24 hr tabletTake 50 mg by mouth two times a day.Disp: Rfl: Cholecalciferol, Vitamin D3, (D3-5000) 125 mcg (5,000 unit) capTake 1 capsule by mouth two times a day.Disp: Rfl: acetaminophen (TYLENOL) 500 mg tabletTake by mouth as needed.Disp: Rfl: Vitamin E, dl, acetate, (VITAMIN E) 400 unit capsuleTake 1 capsule by mouth once daily.Disp: Rfl: ursodiol (ACTIGALL) 300 mg capsuleTake 300 mg by mouth two times a day.Disp: Rfl: traZODone (DESYREL) 100 mg tabletTake 100 mg by mouth daily at bedtime.Disp: Rfl: spironolactone (ALDACTONE) 25 mg tabletTake 0.5 tablets by mouth once daily.Disp: Rfl: pantoprazole DR (PROTONIX) 40 mg tabletTake 40 mg by mouth once daily.Disp: Rfl: ondansetron (ZOFRAN) 4 mg tabletTake 4 mg by mouth as needed.Disp: Rfl: buPROPion XL (WELLBUTRIN XL) 300 mg 24 hr tabletTake 300 mg by mouth once daily.Disp: Rfl: diphenhydrAMINE (BENADRYL) 25 mg capsuleTake 50 mg by mouth as needed.Disp: Rfl: JARDIANCE 10 mg tabletTake 10 mg by mouth once daily.Disp: Rfl: hydrOXYchloroQUINE (PLAQUENIL) 200 mg tabletTake 400 mg by mouth once daily.Disp: Rfl: sildenafil (REVATIO) 20 mg tabletTake 40 mg by mouth three times a day.Disp: Rfl: ELIQ (more content not included)... Normal [facility] CNPNon 11-26-2023 CNPN Telephone (SAMMIE) -------- DEE SHEPHERD ([id number]) 1970 F Date Time Provider Department 11/26/23 RONAL MACDONALD During your visit today, we recorded the following information about you: Yas Junior 11/26/2023 1:54 PM Signed Received fax with referral for patient to see hematology. Referral is in scanned documents DX: antiphospholipid antibody positive Insurance: [employer] Medicaid [facility] Please review and advise Yue Loaiza LPN 11/26/2023 2:39 PM Signed Records in Care Everywhere. PSS- please schedule with Dr. Macdonald. TRICIA Santamaria Brandy 11/26/2023 2:56 PM Signed I called and left a message for patient to call back and schedule her new patient consult. [facility]milayo [facility] Leana Russell 11/27/2023 11:19 AM Signed Called and spoke with patient. Scheduled first available for new patient with Dr. Macdonald on 12/08. Leana Hardin Allergies As of Date: 11/26/2023 Noted Allergy Reaction DOXYCYCLINE 09/04/2019 2 - Rash Comments: Palmar rash/discolration/blood blisters - occurred on two separate occasions environmental [Other] 05/29/2005 HYDROCODONE 01/24/2017 9 - Itching MILK 05/29/2005 mushrooms [Other] 05/29/2005 POLLEN 05/29/2005 Date Reviewed: 01/09/2023 Reviewed by: Cecilia Gomez MA - Fully Assessed Reason for Visit: New Patient [172] Prescriptions as of 11/27/2023 - amLODIPine (NORVASC) 5 mg tablet - ascorbic acid, vitamin C, (VITAMIN C) 500 mg tablet Take 500 mg by mouth. - buPROPion XL (WELLBUTRIN XL) 300 mg 24 hr tablet Take by mouth. - cyanocobalamin (VITAMIN B-12) 1,000 mcg tab - diphenhydrAMINE (BENADRYL) 25 mg capsule Take 50 mg by mouth. - JARDIANCE 10 mg tablet Take 10 mg by mouth once daily. - hydrOXYchloroQUINE (PLAQUENIL) 200 mg tablet Take 400 mg by mouth. - Iron AspGl and PS Cm-Vit C-Ca-SA 150-50-50 mg cap Take 150 mg by mouth. - montelukast (SINGULAIR) 10 mg tablet Take 10 mg by mouth daily at bedtime. - Cholecalciferol, Vitamin D3, (VITAMIN D-3) 50 mcg (2,000 unit) cap Take 2 capsules by mouth once daily. - melatonin 12 mg tab Take 2 tablets by mouth at bedtime as needed for for insomnia. - tiotropium bromide (SPIRIVA RESPIMAT) 2.5 mcg/actuation inhaler Inhale 2 Puffs as instructed once daily. - sildenafil (REVATIO) 20 mg tablet Take 20 mg by mouth three times daily. - ELIQUIS 5 mg tab(s) Take 1 tablet by mouth twice daily. - flecainide (TAMBOCOR) 100 mg tablet Take 1 tablet by mouth twice daily. - cyclobenzaprine (FLEXERIL) 5 mg tablet Take 5 mg by mouth three times daily as needed. - methylPREDNISolone (MEDROL, JORDAN,) 4 mg Dose-Pack Take as directed - TRELEGY ELLIPTA 100-62.5-25 mcg dsdv 1 Puff once daily. - PROAIR HFA 90 mcg/actuation inhaler as needed. - iron polysaccharide complex (FERREX 150) 150 mg iron capsule Take 1 capsule by mouth once daily. - acetaminophen (TYLENOL) 325 mg tablet acetaminophen Acetaminophen 650 MG PO EVERY 6 HOURS NEEDED PRN For Mild Pain (scale 0-3)/T>100.7 July 08, 2018 Active 07-08-2018 [facility] ([id number]) - bumetanide (BUMEX) 1 mg tablet 1 mg once daily. - methocarbamol (ROBAXIN) 750 mg tablet - metoprolol succinate ER (TOPROL XL) 50 mg 24 hr tablet 50 mg once daily. takes 25 mg daily - rosuvastatin (CRESTOR) 5 mg tablet 5 mg once daily. - benzonatate (TESSALON PERLE) 100 mg capsule Take 1 capsule by mouth three times daily as needed. - folic acid 1 mg tablet Take 1 mg by mouth once daily. - THIAMINE HCL ORAL Take by mouth. - esomeprazole (NEXIUM) 40 mg capsule Take 1 capsule by mouth daily before breakfast. Facility-Administered Medications as of 11/27/2023 - perflutren lipid microspheres 1.3 mL in NaCl (PF) 0.9% 10 mL injection (DEFINITY) - sodium chloride 0.9 % (flush) 10 mL (BD POSIFLUSH) Problem List As Of Date 11/26/2023 Noted Resolved Tobacco use disorder [F17.200] Other and unspecified alcohol dependence, unspe* DYSTHYMIC DISORDER [F34.1] GENERALIZED ANXIETY DIS [F41.1] CLASSICAL MIGRAINE [346.0] GENERAL OSTEOARTHROSIS [M15.9] 12/05/2006 Impaired Fasting Glucose [R73.01] 11/29/2009 Heartburn [R12] DDD (Degenerative Disc Disease), Lumbar [M51.36] Calcific Tendinitis of Shoulder [M75.30] 05/18/2010 Impingement Syndrome of Shoulder Region [M75.40]05/18/2010 Calcifying tendinitis of shoulder [M75.30] 08/13/2010 Fatty liver [K76.0] 01/08/2011 FADY (obstructive sleep apnea) [G47.33] 03/20/2011 Restless legs syndrome [G25.81] 03/20/2011 Nasal septal deviation [J34.2] 03/20/2011 Shoulder pain [M25.519] 06/21/2011 Ulnar nerve compression [G56.20] 02/11/2012 Hypertension [I10] 11/12/2013 BMI 40.0-44.9, adult [Z68.41] 11/12/2013 Hyperlipemia [E78.5] 11/12/2013 Multiple respiratory allergies [J30.9] 09/28/2014 Anemia [D64.9] 04/06/2015 Reflux e (more content not included)... Normal [facility] ANAon 11-14-2023 Interpretation and review of laboratory results Normal [facility] Nuclear Ab Hep2 substrate (S) [Titer] [facility] Test performed using [employer] by [facility] Anti-DNA Double-Stranded Ant ibodyOrdered By: Jenny Pink on 11-14-2023 DNA double strand Ab (S) [Titer] High [facility] Interpretation and review of laboratory results Abnormal [facility] Test performed using [employer] by [facility] C3 Complementon 11-13-2023 Complement C3 [Mass/Vol] 179.9 mg/dL 73.0 - 183.0 mg/dL [facility] C4 Complementon 11-13-2023 Complement C4 [Mass/Vol] 35.4 mg/dL 16.0 - 47.0 mg/dL [facility] Creatinine [Mass/Vol]on 10-30 GFR/1.73 sq M.predicted CKD-EPI (S/P/Bld) [Vol rate/Area] 51 Low - PINF [facility] Comment on above: Estimated GFR was ca lculated using the 2020 CKD-EPI creatinine equation. Interpretation and review of laboratory results Abnormal [facility] has implemented the eGFR calculation approach that does not have a coefficient for race that conforms to the NKF-ASN Task Force Recommendations. [facility] Creatinine, serumon 11-13-19 Creatinine [Mass/Vol] 1.26 mg/dL High 0.40 - 1.10 mg/dL [facility] No Panel Informationon 11-12 Interpretation and review of laboratory results Normal [facility] Basophil percentageOrdered B y: Sarai Watkins on 10-10-2023 Bilirubin [Mass/Vol] 1.00 mg/dL 0.20-1.00 [facility] Comment on above: For patients on eltr ombopag therapy, use of Dimension [place] TBIL is not recommended. Chloride [Moles/Vol] 110 mmol/L 98-107 [facility] Cholesterol [Mass/Vol] 136 mg/dL <200 [facility] Comment on above: <200 mg/dL Desirable 200-240 mg/dL Borderline >240 mg/dL High Risk Glucose [Mass/Vol] 100 mg/dL 74-106 [facility] Comment on above: Fasting Glucose resu lt from 100 to 125 mg/dL suggests IMPAIRED HOMEOSTASIS per A.D.A. criteria. Potassium [Moles/Vol] 3.8 mmol/L 3.5-5.1 [facility] Protein [Mass/Vol] 7.2 g/dL 6.4-8.2 [facility] Sodium [Moles/Vol] 140 mmol/L 136-145 [facility] Triglyceride [Mass/Vol] 160 mg/dL <199 [facility] Comment on above: The drugs N-Acetylcy steine and Metamizole may falsely depress this assay.Serum Triglycerides Reference Interval Normal <150 mg/dL Borderline high 150 - 199 mg/dL High 200 - 499 mg/dL Very High > or = 500 mg/dL Laboratory - Chemistry and C hemistry - challengeOrdered By: Sarai Watkins on 10-10-2023 Albumin/Globulin [Mass ratio] 0.8 {ratio} 0.9-2.4 [facility] ALP [Catalytic activity/Vol] 83 U/L 45-117 [facility] ALT [Catalytic activity/Vol] 19 U/L 13-56 [facility] Cholesterol in HDL [Mass/Vol] 66 mg/dL >40 [facility] Comment on above: The drugs N-Acetylcy steine and Metamizole may falsely depress this assay. Reference Range HDL <40 mg/dL Low HDL Cholesterol HDL >or= 60 mg/dL High HDL Cholesterol Cholesterol in LDL [Mass/Vol] 38 mg/dL 0-130 [facility] CO2 [Moles/Vol] 24.0 mmol/L 21.0-32.0 [facility] Globulin (S) [Mass/Vol] 3.9 g/dL 2.2-4.2 [facility] Urea nitrogen/Creatinine [Mass ratio] 14.0 mg/mg 10-20 [facility] No Panel InformationOrdered By: Sarai Watkins on 10-10-2023 Estimated GFR (MDRD) Amer 69 mL/min >60 [facility] Comment on above: GFR Calc Estimated GFR (MDRD) Non-Af Amer 57 mL/min >60 [facility] Comment on above: Non- GFR Calc VLDL Cholesterol 32 mg/dL 5-40 [facility] Serum or plasma calcium otoniel urement (mass/volume)Ordered By: Sarai Watkins on 10-10-2023 Calcium [Mass/Vol] 9.0 mg/dL 8.5-10.1 [facility] Serum or plasma creatinine m easurement (mass/volume)Ordered By: Sarai Watkins on 10-10-2023 Creatinine [Mass/Vol] 1.07 mg/dL 0.55-1.02 [facility] Comment on above: The validity of the calculated GFR & GFRAA in patients over 70 years has not been determined. Clinical correlation is essential. Serum or plasma urea nitroge n measurement (mass/volume)Ordered By: Sarai Watkins on 10-10-2023 Urea nitrogen [Mass/Vol] 15 mg/dL 7-18 [facility] Thin prep Papanicolaou smear with manual screeningOrdered By: Sarai Watkins on 10-10-2023 Thin prep Papanicolaou smear with manual screening 3.3 g/dL 3.2-5.0 [facility] Thin prep Papanicolaou smear with manual screening 13 U/L 15-37 [facility] Thin prep Papanicolaou smear with manual screening 6 5-15 [facility] Basophil percentageOrdered B y: Sarai Watkins on 07-30-2023 Bilirubin [Mass/Vol] 1.00 mg/dL 0.20-1.00 [facility] Comment on above: For patients on eltr ombopag therapy, use of Dimension [place] TBIL is not recommended. Chloride [Moles/Vol] 107 mmol/L 98-107 [facility] Glucose [Mass/Vol] 107 mg/dL 74-106 [facility] Comment on above: Fasting Glucose resu lt from 100 to 125 mg/dL suggests IMPAIRED HOMEOSTASIS per A.D.A. criteria. Potassium [Moles/Vol] 4.0 mmol/L 3.5-5.1 [facility] Comment on above: Slight Hemolysis, Re sult may be falsely increased. Protein [Mass/Vol] 7.8 g/dL 6.4-8.2 [facility] Sodium [Moles/Vol] 136 mmol/L 136-145 [facility] Laboratory - Chemistry and C hemistry - challengeOrdered By: Sarai Watkins on 07-30-2023 ALP [Catalytic activity/Vol] 96 U/L 45-117 [facility] ALT [Catalytic activity/Vol] 22 U/L 13-56 [facility] CO2 [Moles/Vol] 22.0 mmol/L 21.0-32.0 [facility] Globulin (S) [Mass/Vol] 4.5 g/dL 2.2-4.2 [facility] Urea nitrogen/Creatinine [Mass ratio] 11.2 mg/mg 10-20 [facility] No Panel InformationOrdered By: Sarai Watkins on 07-30-2023 Estimated GFR (MDRD) Amer 53 mL/min >60 [facility] Comment on above: GFR Calc Estimated GFR (MDRD) Non-Af Amer 44 mL/min >60 [facility] Comment on above: Non- GFR Calc Serum or plasma albumin otoniel urement (mass/volume)Ordered By: Sarai Watkins on 07-30-2023 Albumin [Mass/Vol] 3.3 g/dL 3.2-5.0 [facility] Serum or plasma albumin/glob ulin mass ratioOrdered By: Sarai Watkins on 07-30-2023 Albumin/Globulin [Mass ratio] 0.7 {ratio} 0.9-2.4 [facility] Serum or plasma calcium otoniel urement (mass/volume)Ordered By: Sarai Watkins on 07-30-2023 Calcium [Mass/Vol] 8.8 mg/dL 8.5-10.1 [facility] Serum or plasma creatinine m easurement (mass/volume)Ordered By: Sarai Watkins on 07-30-2023 Creatinine [Mass/Vol] 1.34 mg/dL 0.55-1.02 [facility] Comment on above: The validity of the calculated GFR & GFRAA in patients over 70 years has not been determined. Clinical correlation is essential. Serum or plasma urea nitroge n measurement (mass/volume)Ordered By: Sarai Watkins on 07-30-2023 Urea nitrogen [Mass/Vol] 15 mg/dL 7-18 [facility] Thin prep Papanicolaou smear with manual screeningOrdered By: Sarai Watkins on 07-30-2023 Thin prep Papanicolaou smear with manual screening 18 U/L 15- [facility] Comment on above: Slight Hemolysis, Re sult may be falsely increased. Thin prep Papanicolaou smear with manual screening 7 5-15 [facility] Laboratory - Chemistry and C hemistry - challengeOrdered By: Anatoliy Lugo on 07-01-2023 Natriuretic peptide B (Bld) [Mass/Vol] 67.2 pg/mL 0-100 [facility] No Panel InformationOrdered By: Anatoliy Lugo on 07-01-2023 Estimated GFR (MDRD) Amer 45 mL/min >60 [facility] Comment on above: GFR Calc Estimated GFR (MDRD) Non-Af Amer 37 mL/min >60 [facility] Comment on above: Non- GFR Calc Serum or plasma creatinine m easurement (mass/volume)Ordered By: Anatoliy Lugo on 07-01-2023 Creatinine [Mass/Vol] 1.55 mg/dL 0.55-1.02 [facility] Comment on above: The validity of the calculated GFR & GFRAA in patients over 70 years has not been determined. Clinical correlation is essential. Serum or plasma urea nitroge n measurement (mass/volume)Ordered By: Anatoliy Lugo on 07-01-2023 Urea nitrogen [Mass/Vol] 50 mg/dL 7- [facility] Absolute lymphocyte countOrd ered By: Rose Marie Baker on 06-26-2023 Lymphocytes Auto (Unsp spec) [#/Vol] 0.53 10*3/uL 0.83-4.51 [facility] Basophil percentageOrdered B y: Rose Marie Baker on 06-26-2023 Basophils/100 WBC (Bld) 0.9 % 0-1 [facility] Chloride [Moles/Vol] 105 mmol/L 98-107 [facility] Eosinophils/100 WBC (Bld) 1.4 % 0-5 [facility] Glucose [Mass/Vol] 109 mg/dL 74-106 [facility] Comment on above: Fasting Glucose resu lt from 100 to 125 mg/dL suggests IMPAIRED HOMEOSTASIS per A.D.A. criteria. Neutrophils (Bld) [#/Vol] 4.4 10*3/uL 2.0-7.7 [facility] Neutrophils/100 WBC (Bld) 78.0 % 47-70 [facility] Potassium [Moles/Vol] 3.4 mmol/L 3.5-5.1 [facility] Sodium [Moles/Vol] 139 mmol/L 136-145 [facility] WBC (Bld) [#/Vol] 5.6 10*3/uL 4.4-11.0 [facility] Blood erythrocytes count (nu mber/volume)Ordered By: Rose Marie Baker on 06-26-2023 RBC (Bld) [#/Vol] 3.98 10*6/uL 4.2-5.4 [facility] Blood hemoglobin measurement (mass/volume)Ordered By: Rose Marie Baker on 06-26-2023 Hemoglobin (Bld) [Mass/Vol] 12.3 g/dL 12.0-15.0 [facility] Blood lymphocytes/100 leukoc ytesOrdered By: Rose Marie Baker on 06-26-2023 Lymphocytes/100 WBC (Bld) 9.4 % 19-41 [facility] Blood manual differential co mment interpretation (narrative result)Ordered By: Rose Marie Baker on 06-26-2023 Manual differential comment Duglas (Bld) [Interp] SCANNED [facility] Blood monocytes/100 leukocyt esOrdered By: Rose Marie Baker on 06-26-2023 Monocytes/100 WBC (Bld) 9.2 % 0-10 [facility] Blood platelet mean volumeOr dered By: Rose Marie Baker on 06-26-2023 Platelet mean volume (Bld) [Entitic vol] 9.4 fL 6.2-12.0 [facility] Determination of erythrocyte mean corpuscular volume (MCV)Ordered By: Rose Marie Baker on 06-26-2023 MCV (RBC) [Entitic vol] 97.5 fL 81-99 [facility] Hematocrit Auto (Bld) [Volum e fraction]Ordered By: Rose Marie Baker on 06-26-2023 Hematocrit (Bld) [Volume fraction] 38.8 % 37-47 [facility] Laboratory - Chemistry and C hemistry - challengeOrdered By: Rose Marie Baker on 06-26-2023 CO2 [Moles/Vol] 26.0 mmol/L 21.0-32.0 [facility] Urea nitrogen/Creatinine [Mass ratio] 18.4 mg/mg 10-20 [facility] Laboratory - Hematology and Cell countsOrdered By: Rose Marie Baker on 06-26-2023 Erythrocyte distribution width (RBC) [Entitic vol] 46.5 fL 35.1-43.9 [facility] Erythrocyte distribution width (RBC) [Ratio] 13.0 % 11.6-14.6 [facility] Immature granulocytes/100 WBC (Bld) 1.100 % 0.0-0.9 [facility] Comment on above: IG% - Immature Granu locytes (promyelocytes, myelocytes and metamyelocytes) > 1% indicates that a LEFT SHIFT is Present. MCH (RBC) [Entitic mass] 30.9 pg 27.0-32.0 [facility] Nucleated RBC/100 WBC (Bld) [Ratio] 0 % 0-5 [facility] MCHC Auto (RBC) [Mass/Vol]Or dered By: Rose Marie Baker on 06-26-2023 MCHC (RBC) [Mass/Vol] 31.7 g/dL 32-36 [facility] No Panel InformationOrdered By: Rose Marie Baker on 06-26-2023 Estimated Creatinine Clearance Calc 48.16 ml/min [facility] Estimated GFR (MDRD) Amer 57 mL/min >60 [facility] Comment on above: GFR Calc Estimated GFR (MDRD) Non-Af Amer 47 mL/min >60 [facility] Comment on above: Non- GFR Calc Platelets bldOrdered By: Sarita Baker on 06-26-2023 Platelets (Bld) [#/Vol] 159 10*3/uL 150-450 [facility] Serum or plasma calcium otoniel urement (mass/volume)Ordered By: Rose Marie Baker on 06-26-2023 Calcium [Mass/Vol] 8.6 mg/dL 8.5-10.1 [facility] Serum or plasma creatinine m easurement (mass/volume)Ordered By: Rose Marie Baker on 06-26-2023 Creatinine [Mass/Vol] 1.25 mg/dL 0.55-1.02 [facility] Comment on above: The validity of the calculated GFR & GFRAA in patients over 70 years has not been determined. Clinical correlation is essential. Serum or plasma urea nitroge n measurement (mass/volume)Ordered By: Rose Marie Baker on 06-26-2023 Urea nitrogen [Mass/Vol] 23 mg/dL 7-18 [facility] Thin prep Papanicolaou smear with manual screeningOrdered By: Rose Marie Baker on 06-26-2023 Thin prep Papanicolaou smear with manual screening 8 5-15 [facility] Laboratory - Chemistry and C hemistry - challengeOrdered By: Hung Vinson on 06-25-2023 Natriuretic peptide B (Bld) [Mass/Vol] 284.3 pg/mL 0-100 [facility] No Panel InformationOrdered By: Hung Vinson on 06-25-2023 Streptococcus pneumoniae Antigen (M [facility] Streptococcus pneumoniae Antigen (M [facility] Respiratory pathogens detect ion panel by molecular detection methodOrdered By: Hung Vinson on 06-25-2023 Respiratory pathogens DNA and RNA panel BATSHEVA+probe (Resp) [facility] Urine Legionella pneumophila antigen detectionOrdered By: Hung Vinson on 06-25-2023 L. pneumophila Ag Ql (U) [facility] L. pneumophila Ag Ql (U) [facility] Absolute lymphocyte countOrd ered By: Bartolo Callejas on 06-24-2023 Lymphocytes Auto (Unsp spec) [#/Vol] 0.33 10*3/uL 0.83-4.51 [facility] Basophil percentageOrdered B y: Bartolo Callejas on 06-24-2023 Basophils/100 WBC (Bld) 0.4 % 0-1 [facility] Chloride [Moles/Vol] 111 mmol/L 98-107 [facility] Eosinophils/100 WBC (Bld) 0.1 % 0-5 [facility] Glucose [Mass/Vol] 154 mg/dL 74-106 [facility] Comment on above: Fasting Glucose resu lt greater than or equal to 126 mg/dL suggests DIABETES MELLITUS per A.D.A. criteria. Neutrophils (Bld) [#/Vol] 17.0 10*3/uL 2.0-7.7 [facility] Neutrophils/100 WBC (Bld) 93.5 % 47-70 [facility] Potassium [Moles/Vol] 4.7 mmol/L 3.5-5.1 [facility] Sodium [Moles/Vol] 140 mmol/L 136-145 [facility] WBC (Bld) [#/Vol] 18.2 10*3/uL 4.4-11.0 [facility] Blood erythrocytes count (nu mber/volume)Ordered By: Bartolo Callejas on 06-24-2023 RBC (Bld) [#/Vol] 4.05 10*6/uL 4.2-5.4 [facility] Blood hemoglobin measurement (mass/volume)Ordered By: Bartolo Callejas on 06-24-2023 Hemoglobin (Bld) [Mass/Vol] 12.5 g/dL 12.0-15.0 [facility] Blood lymphocytes/100 leukoc ytesOrdered By: Bartolo Callejas on 06-24-2023 Lymphocytes/100 WBC (Bld) 1.8 % 19-41 [facility] Blood manual differential co mment interpretation (narrative result)Ordered By: Bartolo Callejas on 06-24-2023 Manual differential comment Duglas (Bld) [Interp] See comment [facility] Comment on above: LYMPHOPENIA NOTED Blood monocytes/100 leukocyt esOrdered By: Bartolo Callejas on 06-24-2023 Monocytes/100 WBC (Bld) 3.3 % 0-10 [facility] Blood platelet mean volumeOr dered By: Bartolo Callejas on 06-24-2023 Platelet mean volume (Bld) [Entitic vol] 9.7 fL 6.2-12.0 [facility] Determination of erythrocyte mean corpuscular volume (MCV)Ordered By: Bartolo Callejas on 06-24-2023 MCV (RBC) [Entitic vol] 97.8 fL 81-99 [facility] Hematocrit Auto (Bld) [Volum e fraction]Ordered By: Bartolo Callejas on 06-24-2023 Hematocrit (Bld) [Volume fraction] 39.6 % 37-47 [facility] Influenza virus A and B and SARS-CoV-2 (COVID-19) Ag panel - Upper respiratory specimOrdered By: Bartolo Callejas on 06-24-2023 SARS-CoV-2 (COVID-19) RNA BATSHEVA+probe Ql (Resp) [facility] Laboratory - Chemistry and C hemistry - challengeOrdered By: Bartolo Callejas on 06-24-2023 CO2 [Moles/Vol] 23.0 mmol/L 21.0-32.0 [facility] Natriuretic peptide B (Bld) [Mass/Vol] 347.8 pg/mL 0-100 [facility] Urea nitrogen/Creatinine [Mass ratio] 19.8 mg/mg 10-20 [facility] Laboratory - Hematology and Cell countsOrdered By: Bartolo Callejas on 06-24-2023 Erythrocyte distribution width (RBC) [Entitic vol] 46.1 fL 35.1-43.9 [facility] Erythrocyte distribution width (RBC) [Ratio] 12.9 % 11.6-14.6 [facility] Immature granulocytes/100 WBC (Bld) 0.900 % 0.0-0.9 [facility] Comment on above: IG% - Immature Granu locytes (promyelocytes, myelocytes and metamyelocytes) > 1% indicates that a LEFT SHIFT is Present. MCH (RBC) [Entitic mass] 30.9 pg 27.0-32.0 [facility] Nucleated RBC/100 WBC (Bld) [Ratio] 0 % 0-5 [facility] MCHC Auto (RBC) [Mass/Vol]Or dered By: Bartolo Callejas on 06-24-2023 MCHC (RBC) [Mass/Vol] 31.6 g/dL 32-36 [facility] No Panel InformationOrdered By: Bartolo Callejas on 06-24-2023 Estimated Creatinine Clearance Calc 56.34 ml/min [facility] Estimated GFR (MDRD) Amer 66 mL/min >60 [facility] Comment on above: GFR Calc Estimated GFR (MDRD) Non-Af Amer 54 mL/min >60 [facility] Comment on above: Non- GFR Calc Troponin I High Sensitivity 7 pg/mL 3.0-54.0 [facility] Comment on above: Please Note: New Rush t Units and Gender Specific Reference Ranges. For more information see Policy Stat Procedure [place] High Sensitivity Troponin (TNIH) and attachments. Platelets bldOrdered By: Lynn Callejas on 06-24-2023 Platelets (Bld) [#/Vol] 205 10*3/uL 150-450 [facility] Respiratory pathogens detect ion panel by molecular detection methodOrdered By: Hung Vinson on 06-24-2023 Respiratory pathogens DNA and RNA panel BATSHEVA+probe (Resp) [facility] Serum Mycoplasma pneumoniae IgG antibody detectionOrdered By: Hung Vinson on 06-24-2023 M. pneumoniae IgG Ql (S) < 100 U/mL 0-99 [facility] Comment on above: Negative: <100 Indet erminate: 100 - 320 Positive: >320The reference interval established is intended as abaseline only. Values >100 may indicate a recentinfection with Mycoplasma pneumoniae and need to beconfirmed either by a positive IgM result and/or anadditional specimen drawn 2-4 weeks later showing asignificant increase in antibody levels. Serum Mycoplasma pneumoniae IgM antibody detectionOrdered By: Hung Vinson on 06-24-2023 M. pneumoniae IgM Ql (S) < 770 U/mL 0-769 [facility] Comment on above: Negative <770Clinica lly significant amount of M. pneumoniae antibodynot detected. Low Positive 770 - 950M. pneumoniae specific IgM presumptively detected. Itis recommended that another sample be collected 1-2weeks later to assure reactivity. Positive >950Highly significant amount of M. pneumoniae specificIgM antibody detected.Performed at: [id number] Director: Barrington Iraheta PhD, Phone: [phone] Serum or plasma calcium otoniel urement (mass/volume)Ordered By: Bartolo Callejas on 06-24-2023 Calcium [Mass/Vol] 8.9 mg/dL 8.5-10.1 [facility] Serum or plasma creatinine m easurement (mass/volume)Ordered By: Bartolo Callejas on 06-24-2023 Creatinine [Mass/Vol] 1.11 mg/dL 0.55-1.02 [facility] Comment on above: The validity of the calculated GFR & GFRAA in patients over 70 years has not been determined. Clinical correlation is essential. Serum or plasma urea nitroge n measurement (mass/volume)Ordered By: Bartolo Callejas on 06-24-2023 Urea nitrogen [Mass/Vol] 22 mg/dL 7-18 [facility] Thin prep Papanicolaou smear with manual screeningOrdered By: Bartolo Callejas on 06-24-2023 Thin prep Papanicolaou smear with manual screening 6 5-15 [facility] Gram stain for investigation of transfusion reactionOrdered By: Anatoliy Lugo on 06-04-2023 Microscopic observation Gram stain Nom (Unsp spec) [facility] Microscopic observation Gram stain Nom (Unsp spec) [facility] Microbial respiratory cultur eOrdered By: Anatoliy Lugo on 06-04-2023 Bacteria identified Respiratory culture Nom (Unsp spec) or Staphylococcus aureus isolated. [facility] Bacteria identified Respiratory culture Nom (Unsp spec) or Staphylococcus aureus isolated. [facility] CNOVon 01-09-2023 CNOV Office Visit (ORTHWS ) -------- DEE SHEPHERD ([id number]) 1970 F Date Time Provider Department 01/09/23 11:30 AM BARTOLO BAKER During your visit today, we recorded the following information about you: Bartolo Baker MD 02/12/2023 11:22 PM Signed Bartolo Baker MD Department of Orthopaedics Orthopaedics [address] [facility] [address] Dept: [phone] Dept January 09, 2023 CHIEF COMPLAINT: Established Patient of the Left Shoulder and Last seen 09/27/21 Right 5th MC fracture HPI Patient here for evaluation left shoulder pain. Patient states the pain started about 7-8 months ago. No specific injury. She has had an injection in her shoulder in the past and help. Patient states her pain can come and go. Depends on her activities. Taking Tylenol for the pain and does help. X-rays done today. ASSESSMENT: M25.512, G89.29 Chronic left shoulder pain (primary encounter diagnosis) M25.819 Shoulder impingement PLAN: She is interested in a cortisone injection today. Ms. Dee Lynn Dharmesh was advised as to contrast therapies and/or to take analgesics/anti-inflamma tories as needed and all contraindications were reviewed. OBJECTIVE: Ms. Dee Shepherd is a pleasant 52 year old in no apparent distress. Gen:There were no vitals taken for this visit. nl development, obese, no deformities ENT: Normocephalic, normal hearing, moist mucosa CV: Pulses:Radial= 2+ and symmetric, capillary refill < 2 secs, no peripheral edema/varicosities Skin: no rash, bruising or lesions. Good turgor. Psych: cooperative and appropriate, alert and oriented x 3, good mood and affect. Musculoskeletal: Supple range of motion of the cervical spine without pain. Spurling signs are negative. No atrophy of the deltoid and shoulder musculature. left shoulder is nontender to palpation over the SC joint, clavicle and AC joint. no tenderness to palpation over the posterior shoulder, postitive tenderness to palpation over the anterior lateral corner of the shoulder and greater tuberosity. nontender at the bicipital groove and coracoid. Active range of motion is 160 of forward elevation, 60 external rotation, and internal rotation to the low thoracic. Passive range of motion is symmetrical, limited by some pain, respectively. No laxity with anterior and posterior stress. positive Neer and Murdock impingement signs. 4+/5 strength with supraspinatus, infraspinatus and subscapularis. Sensation is intact in the axillary, radial, median and ulnar nerve distribution Large Joint Arthro/Inj: L subacromial bursa Informed Consent Consent Obtained: Verbal [place] Protocol A moment to CARE was completed. SIGN IN Sign in communication not applicable due to emergent procedure. Personnel directly involved with the procedure wore the appropriate PPE. Special Equipment: N/A Patient/Surrogate Stated/Verified: Patient name, Date of , Relevant allergies and Intended procedure TIME OUT Intended patient and procedure match the source document(s). Consent documented and matches the intended procedure. Relevant labs, photos, and/or imaging studies have been reviewed. Correct side/site marked and visible. Medications required for procedure verified. No fire risk assessment and interventions applicable. No implant(s) inserted. 01/09/2023 12:09 PM The procedure site was prepped in the usual sterile fashion. Site: L subacromial bursa Medications: 6 mg betamethasone acetate-betamethasone sodium phosphate 6 mg/mL Anesthetics: 4 mL lidocaine (PF) 10 mg/mL (1 %) Outcome: Tolerated well, no immediate complications Post-injection instructions were reviewed with the patient and the patient voiced understanding of these instructions. SIGN OUT No instruments, equipment or retained foreign bodies applicable. Imaging: IMPRESSION: Degenerative changes in the left shoulder as described above. Bias Cutter Helper: DORON Transcribe Date/Time: Jan 14 2023 8:30A Dictated by : RUFINO VILLEGAS MD This examination was interpreted and the report reviewed and electronically signed by: RUFINO VILLEGAS MD on Jan 14 2023 8:35AM EST Results-Findings * * *Final Report* * * DATE OF EXAM: Jan 09 2023 11:23AM [id number] - XR SHLDR >/=3V AP/JAVON AP/OTHR LT / PROCEDURE REASON: Left shoulder pain, unspecified chronicity * * * * Physician Interpretation * * * * EXAM TITLE: XR SHLDR >/=3V AP/JAVON AP/OTHR LT EXAM DATE/TIME: 01/09/2023 11:23 AM COMPARISON: X-ray shoulder on 05/14/2010 CLINICAL INDICATION/HISTORY: Shoulder pain. TECHNIQUE: AP, true AP and axillary views of the left shoulder are presented FINDINGS: No acute fractures or subluxations are noted. Acromioclavicular joint space narrowing is demonstrated, with associated osteophyte formation. The glenohumeral joint space is maintained however mini (more content not included)... Normal [facility] XR SHLDR >/=3V AP/JAVON AP/OTH R LTon 01-09-2023 XR SHLDR >/=3V AP/JAVON AP/OTHR LT * * *Final Report* * * DATE OF EXAM: Jan 09 2023 11:23AM WRX 5252 - XR SHLDR >/=3V AP/JAVON AP/OTHR LT / PROCEDURE REASON: Left shoulder pain, unspecified chronicity * * * * Physician Interpretation * * * * EXAM TITLE: XR SHLDR >/=3V AP/JAVON AP/OTHR LT EXAM DATE/TIME: 01/09/2023 11:23 AM COMPARISON: X-ray shoulder on 05/14/2010 CLINICAL INDICATION/HISTORY: Shoulder pain. TECHNIQUE: AP, true AP and axillary views of the left shoulder are presented FINDINGS: No acute fractures or subluxations are noted. Acromioclavicular joint space narrowing is demonstrated, with associated osteophyte formation. The glenohumeral joint space is maintained however minimal osteophyte formation is noted. There is a suture anchor in the humeral head. Normal acromiohumeral interval. The mineralization of the bones is normal. There is no significant soft tissue swelling. Probably mild supraspinatus tendon calcification. IMPRESSION: Degenerative changes in the left shoulder as described above. Bias Cutter Helper: PSCB Transcribe Date/Time: Jan 14 2023 8:30A Dictated by : RUFINO VILLEGAS MD This examination was interpreted and the report reviewed and electronically signed by: RUFINO VILLEGAS MD on Jan 14 2023 8:35AM EST [id number] Normal [facility] XR SHOULDER GENERAL 3V OR MO RE AP/TRUE AP/OTHER LEFTon 01-09-2023 [facility] SPIROMETRY WITH DILATOR IF O BSTRUCTEDon 12-19-2022 DLCO (ml/min/mmHg) 14.62 ml/min/mmHg [facility] DLCO/VA (ml/min/mmHg/L) 3.32 ml/min/mmHg/L [facility] ERV BOX (L) 0.60 L [facility] [id number]% POST (L/S) 1.12 [facility] [id number]% PRE (L/S) 1.14 L/S [facility] FEV1 PRE (L) 2.11 L [facility] FEV1/FVC POST (%) 68 % [facility] FEV1/FVC PRE (%) 67 % [facility] d [facility] FEV1_POST (L) 2.10 L [facility] FRC Box (L) 2.91 L [facility] FVC POST (L) 3.07 L [facility] FVC PRE (L) 3.16 L [facility] IC BOX (L) 2.22 L [facility] PEF POST (L/S) 4.46 L/S [facility] PEF PRE (L/S) 4.56 L/S [facility] RV Box (L) 2.20 L [facility] RV/TLC Box (%) 44 % [facility] TLC Box (L) 5.01 L [facility] VA (L) 4.40 L [facility] VC (L) BOX 2.82 L [facility] Absolute lymphocyte countOrd ered By: Dr. Hernandez on 11-09-2022 Lymphocytes Auto (Unsp spec) [#/Vol] 0.42 10*3/uL 0.83-4.51 [facility] Basophil percentageOrdered B y: Dr. Hernandez on 11-09-2022 Basophil percentage 0 SEEN /hpf 0-5 [facility] Basophils/100 WBC (Bld) 0.9 % 0-1 [facility] Bilirubin [Mass/Vol] 1.00 mg/dL 0.20-1.00 [facility] Comment on above: For patients on eltr ombopag therapy, use of Dimension [place] TBIL is not recommended. Chloride [Moles/Vol] 107 mmol/L 98-107 [facility] Eosinophils/100 WBC (Bld) 1.5 % 0-5 [facility] Glucose [Mass/Vol] 114 mg/dL 74-106 [facility] Comment on above: Fasting Glucose resu lt from 100 to 125 mg/dL suggests IMPAIRED HOMEOSTASIS per A.D.A. criteria. Neutrophils (Bld) [#/Vol] 6.8 10*3/uL 2.0-7.7 [facility] Neutrophils/100 WBC (Bld) 84.5 % 47-70 [facility] Potassium [Moles/Vol] 4.2 mmol/L 3.5-5.1 [facility] Protein [Mass/Vol] 7.4 g/dL 6.4-8.2 [facility] Sodium [Moles/Vol] 139 mmol/L 136-145 [facility] WBC (Bld) [#/Vol] 8.1 10*3/uL 4.4-11.0 [facility] Bilirubin Test strip Ql (U)O rdered By: Dr. Hernandez on 11-09-2022 Bilirubin Ql (U) Negative Negative [facility] Blood erythrocytes count (nu mber/volume)Ordered By: Dr. Hernandez on 11-09-2022 RBC (Bld) [#/Vol] 4.15 10*6/uL 4.2-5.4 [facility] Blood hemoglobin measurement (mass/volume)Ordered By: Dr. Hernandez on 11-09-2022 Hemoglobin (Bld) [Mass/Vol] 13.3 g/dL 12.0-15.0 [facility] Blood lymphocytes/100 leukoc ytesOrdered By: Dr. Hernandez on 11-09-2022 Lymphocytes/100 WBC (Bld) 5.2 % 19-41 [facility] Blood manual differential co mment interpretation (narrative result)Ordered By: Dr. Hernandez on 11-09-2022 Manual differential comment Duglas (Bld) [Interp] SCANNED [facility] Blood monocytes/100 leukocyt esOrdered By: Dr. Hernandez on 11-09-2022 Monocytes/100 WBC (Bld) 7.2 % 0-10 [facility] Blood platelet mean volumeOr dered By: Dr. Hernandez on 11-09-2022 Platelet mean volume (Bld) [Entitic vol] 9.1 fL 6.2-12.0 [facility] Determination of erythrocyte mean corpuscular volume (MCV)Ordered By: Dr. Hernandez on 11-09-2022 MCV (RBC) [Entitic vol] 98.8 fL 81-99 [facility] Hematocrit Auto (Bld) [Volum e fraction]Ordered By: Dr. Hernandez on 11-09-2022 Hematocrit (Bld) [Volume fraction] 41.0 % 37-47 [facility] Ketones Test strip Ql (U)Ord ered By: Dr. Hernandez on 11-09-2022 Ketones Ql (U) Negative Negative [facility] Laboratory - Chemistry and C hemistry - challengeOrdered By: Dr. Hernandez on 11-09-2022 ALP [Catalytic activity/Vol] 93 U/L 45-117 [facility] ALT [Catalytic activity/Vol] 16 U/L 13-56 [facility] CO2 [Moles/Vol] 24.0 mmol/L 21.0-32.0 [facility] Globulin (S) [Mass/Vol] 4.0 g/dL 2.2-4.2 [facility] Lipase [Catalytic activity/Vol] 108 U/L 73-393 [facility] Urea nitrogen/Creatinine [Mass ratio] 17.5 mg/mg 10-20 [facility] Laboratory - Hematology and Cell countsOrdered By: Dr. Hernandez on 11-09-2022 Erythrocyte distribution width (RBC) [Entitic vol] 52.5 fL 35.1-43.9 [facility] Erythrocyte distribution width (RBC) [Ratio] 14.6 % 11.6-14.6 [facility] Immature granulocytes/100 WBC (Bld) 0.700 % 0.0-0.9 [facility] Comment on above: IG% - Immature Granu locytes (promyelocytes, myelocytes and metamyelocytes) > 1% indicates that a LEFT SHIFT is Present. MCH (RBC) [Entitic mass] 32.0 pg 27.0-32.0 [facility] Nucleated RBC/100 WBC (Bld) [Ratio] 0 % 0-5 [facility] MCHC Auto (RBC) [Mass/Vol]Or dered By: Dr. Hernandez on 11-09-2022 MCHC (RBC) [Mass/Vol] 32.4 g/dL 32-36 [facility] Mucus LM Ql (Urine sed)Order ed By: Dr. Hernandez on 11-09-2022 Mucus Ql (Urine sed) 0 SEEN /hpf [facility] Nitrite Test strip Ql (U)Ord ered By: Dr. Hernandez on 11-09-2022 Nitrite Ql (U) Negative Negative [facility] No Panel InformationOrdered By: Dr. Hernandez on 11-09-2022 Estimated Creatinine Clearance Calc 49.64 ml/min [facility] Estimated GFR (MDRD) Amer 57 mL/min >60 [facility] Comment on above: GFR Calc Estimated GFR (MDRD) Non-Af Amer 47 mL/min >60 [facility] Comment on above: Non- GFR Calc Platelets bldOrdered By: Dr. Hernandez on 11-09-2022 Platelets (Bld) [#/Vol] 187 10*3/uL 150-450 [facility] Protein Test strip Ql (U)Ord ered By: Dr. Hernandez on 11-09-2022 Protein Ql (U) 15 mg/dl Negative [facility] Serum or plasma albumin otoniel urement (mass/volume)Ordered By: Dr. Hernandez on 11-09-2022 Albumin [Mass/Vol] 3.4 g/dL 3.2-5.0 [facility] Serum or plasma albumin/glob ulin mass ratioOrdered By: Dr. Hernandez on 11-09-2022 Albumin/Globulin [Mass ratio] 0.8 {ratio} 0.9-2.4 [facility] Serum or plasma calcium otoniel urement (mass/volume)Ordered By: Dr. Hernandez on 11-09-2022 Calcium [Mass/Vol] 8.9 mg/dL 8.5-10.1 [facility] Serum or plasma creatinine m easurement (mass/volume)Ordered By: Dr. Hernandez on 11-09-2022 Creatinine [Mass/Vol] 1.26 mg/dL 0.55-1.02 [facility] Comment on above: The validity of the calculated GFR & GFRAA in patients over 70 years has not been determined. Clinical correlation is essential. Serum or plasma urea nitroge n measurement (mass/volume)Ordered By: Dr. Hernandez on 11-09-2022 Urea nitrogen [Mass/Vol] 22 mg/dL 7-18 [facility] Squamous epithelial cells de tection in urine sediment by light microscopyOrdered By: Dr. Hernandez on 11-09-2022 Epithelial cells.squamous LM Ql (Urine sed) 5-10 SEEN /hpf 5-10 [facility] Thin prep Papanicolaou smear with manual screeningOrdered By: Dr. Hernandez on 11-09-2022 Thin prep Papanicolaou smear with manual screening 13 U/L 15-37 [facility] Thin prep Papanicolaou smear with manual screening 8 5-15 [facility] Urine blood detectionOrdered By: Dr. Hernandez on 11-09-2022 RBC Ql (U) 10 /ul Negative [facility] RBC Ql (U) 0 SEEN /hpf 0-5 [facility] Urine clarityOrdered By: Dr. Hernandez on 11-09-2022 Clarity (U) Clear Clear [facility] Urine color determinationOrd ered By: Dr. Hernandez on 11-09-2022 Color (U) Yellow Yellow [facility] Urine glucose detectionOrder ed By: Dr. Hernandez on 11-09-2022 Glucose Ql (U) 1000 mg/dl Normal [facility] Urine leukocyte esterase det ection by dipstickOrdered By: Dr. Hernandez on 11-09-2022 Leukocyte esterase Test strip Ql (U) Negative Negative [facility] Urine pHOrdered By: Dr. Ivan sen on 11-09-2022 pH (U) 5.0 [pH] 5.0 - 8.0 [facility] Urine sediment bacteria coun t by microscopy (number/high power field)Ordered By: Dr. Hernandez on 11-09-2022 Bacteria LM.HPF (Urine sed) [#/Area] 1 /[HPF] None Seen [facility] Urine specific gravity measu rementOrdered By: Dr. Hernandez on 11-09-2022 Specific gravity (U) [Rel density] 1.020 1.002-1.030 [facility] Urobilinogen Auto test strip Ql (U)Ordered By: Dr. Hernandez on 11-09-2022 Urobilinogen Ql (U) Normal mg/dl Normal [facility] Basophil percentageOrdered B y: Simran Bravo on 10-17-2022 Chloride [Moles/Vol] 107 mmol/L 98-107 [facility] Glucose [Mass/Vol] 97 mg/dL 74-106 [facility] Potassium [Moles/Vol] 4.3 mmol/L 3.5-5.1 [facility] Sodium [Moles/Vol] 138 mmol/L 136-145 [facility] Laboratory - Chemistry and C hemistry - challengeOrdered By: Simran Bravo on 10-17-2022 CO2 [Moles/Vol] 23.0 mmol/L 21.0-32.0 [facility] Urea nitrogen/Creatinine [Mass ratio] 18.7 mg/mg 10-20 [facility] No Panel InformationOrdered By: Simran Bravo on 10-17-2022 Estimated GFR (MDRD) Amer 53 mL/min >60 [facility] Comment on above: GFR Calc Estimated GFR (MDRD) Non-Af Amer 44 mL/min >60 [facility] Comment on above: Non- GFR Calc Serum or plasma calcium otoniel urement (mass/volume)Ordered By: Simran Bravo on 10-17-2022 Calcium [Mass/Vol] 8.6 mg/dL 8.5-10.1 [facility] Serum or plasma creatinine m easurement (mass/volume)Ordered By: Simran Bravo on 10-17-2022 Creatinine [Mass/Vol] 1.34 mg/dL 0.55-1.02 [facility] Comment on above: The validity of the calculated GFR & GFRAA in patients over 70 years has not been determined. Clinical correlation is essential. Serum or plasma urea nitroge n measurement (mass/volume)Ordered By: Simran Bravo on 10-17-2022 Urea nitrogen [Mass/Vol] 25 mg/dL 7-18 [facility] Thin prep Papanicolaou smear with manual screeningOrdered By: Simran Bravo on 10-17-2022 Thin prep Papanicolaou smear with manual screening 8 5-15 [facility] Absolute lymphocyte countOrd ered By: Dr. Valdez on 10-10-2022 Lymphocytes Auto (Unsp spec) [#/Vol] 0.88 10*3/uL 0.83-4.51 [facility] Basophil percentageOrdered B y: Dr. Valdez on 10-10-2022 Basophils/100 WBC (Bld) 0.5 % 0-1 [facility] Chloride [Moles/Vol] 102 mmol/L 98-107 [facility] Eosinophils/100 WBC (Bld) 2.1 % 0-5 [facility] Glucose [Mass/Vol] 104 mg/dL 74-106 [facility] Comment on above: Fasting Glucose resu lt from 100 to 125 mg/dL suggests IMPAIRED HOMEOSTASIS per A.D.A. criteria. Neutrophils (Bld) [#/Vol] 9.0 10*3/uL 2.0-7.7 [facility] Neutrophils/100 WBC (Bld) 81.7 % 47-70 [facility] Potassium [Moles/Vol] 4.0 mmol/L 3.5-5.1 [facility] Sodium [Moles/Vol] 139 mmol/L 136-145 [facility] WBC (Bld) [#/Vol] 11.0 10*3/uL 4.4-11.0 [facility] Blood erythrocytes count (nu mber/volume)Ordered By: Dr. Valdez on 10-10-2022 RBC (Bld) [#/Vol] 4.51 10*6/uL 4.2-5.4 [facility] Blood hemoglobin measurement (mass/volume)Ordered By: Dr. Valdez on 10-10-2022 Hemoglobin (Bld) [Mass/Vol] 14.1 g/dL 12.0-15.0 [facility] Blood lymphocytes/100 leukoc ytesOrdered By: Dr. Valdez on 10-10-2022 Lymphocytes/100 WBC (Bld) 8.0 % 19-41 [facility] Blood monocytes/100 leukocyt esOrdered By: Dr. Valdez on 10-10-2022 Monocytes/100 WBC (Bld) 5.8 % 0-10 [facility] Blood platelet mean volumeOr dered By: Dr. Valdez on 10-10-2022 Platelet mean volume (Bld) [Entitic vol] 9.5 fL 6.2-12.0 [facility] Determination of erythrocyte mean corpuscular volume (MCV)Ordered By: Dr. Valdez on 10-10-2022 MCV (RBC) [Entitic vol] 97.3 fL 81-99 [facility] Hematocrit Auto (Bld) [Volum e fraction]Ordered By: Dr. Valdez on 10-10-2022 Hematocrit (Bld) [Volume fraction] 43.9 % 37-47 [facility] Laboratory - Chemistry and C hemistry - challengeOrdered By: Dr. Valdez on 10-10-2022 CO2 [Moles/Vol] 25.0 mmol/L 21.0-32.0 [facility] Urea nitrogen/Creatinine [Mass ratio] 20.3 mg/mg 10-20 [facility] Laboratory - Hematology and Cell countsOrdered By: Dr. Valdez on 10-10-2022 Erythrocyte distribution width (RBC) [Entitic vol] 53.3 fL 35.1-43.9 [facility] Erythrocyte distribution width (RBC) [Ratio] 14.9 % 11.6-14.6 [facility] Immature granulocytes/100 WBC (Bld) 1.900 % 0.0-0.9 [facility] Comment on above: IG% - Immature Granu locytes (promyelocytes, myelocytes and metamyelocytes) > 1% indicates that a LEFT SHIFT is Present. MCH (RBC) [Entitic mass] 31.3 pg 27.0-32.0 [facility] Nucleated RBC/100 WBC (Bld) [Ratio] 0 % 0-5 [facility] Auto (RBC) [Mass/Vol]Or dered By: Dr. Valdez on 10-10-2022 MCHC (RBC) [Mass/Vol] 32.1 g/dL 32-36 [facility] No Panel InformationOrdered By: Dr. Valdez on 10-10-2022 Troponin I High Sensitivity 9 pg/mL 3.0-54.0 [facility] Comment on above: Please Note: New Rush t Units and Gender Specific Reference Ranges. For more information see Policy Stat Procedure [place] High Sensitivity Troponin (TNIH) and attachments. Estimated Creatinine Clearance Calc 47.57 ml/min [facility] Estimated GFR (MDRD) Amer 54 mL/min >60 [facility] Comment on above: GFR Calc Estimated GFR (MDRD) Non-Af Amer 44 mL/min >60 [facility] Comment on above: Non- GFR Calc Platelets bldOrdered By: Dr. Valdez on 10-10-2022 Platelets (Bld) [#/Vol] 175 10*3/uL 150-450 [facility] Serum or plasma C reactive p rotein measurement (mass/volume)Ordered By: Dr. Valdez on 10-10-2022 CRP [Mass/Vol] 17.60 mg/L 0.0-3.0 [facility] Comment on above: C-Reactive Protein ( CRP) provides useful information for thediagnosis, therapy and monitoring of inflammatory processesand associated diseases. For the evaluation of Relative Riskfor Cardiovascular Disease, a High Sensitivity CRP (HSCRP)should be ordered. Serum or plasma calcium otoniel urement (mass/volume)Ordered By: Dr. Valdez on 10-10-2022 Calcium [Mass/Vol] 9.2 mg/dL 8.5-10.1 [facility] Serum or plasma creatinine m easurement (mass/volume)Ordered By: Dr. Valdez on 10-10-2022 Creatinine [Mass/Vol] 1.33 mg/dL 0.55-1.02 [facility] Comment on above: The validity of the calculated GFR & GFRAA in patients over 70 years has not been determined. Clinical correlation is essential. Serum or plasma urea nitroge n measurement (mass/volume)Ordered By: Dr. Valdez on 10-10-2022 Urea nitrogen [Mass/Vol] 27 mg/dL 7-18 [facility] Thin prep Papanicolaou smear with manual screeningOrdered By: Dr. Valdez on 10-10-2022 Thin prep Papanicolaou smear with manual screening 12 5-15 [facility] Absolute lymphocyte countOrd ered By: Dr. Craft on 09-28-2022 Lymphocytes Auto (Unsp spec) [#/Vol] 0.88 10*3/uL 0.83-4.51 [facility] Basophil percentageOrdered B y: Dr. Craft on 09-28-2022 Basophils/100 WBC (Bld) 0.8 % 0-1 [facility] Chloride [Moles/Vol] 99 mmol/L 98-107 [facility] Eosinophils/100 WBC (Bld) 3.5 % 0-5 [facility] Glucose [Mass/Vol] 114 mg/dL 74-106 [facility] Comment on above: Fasting Glucose resu lt from 100 to 125 mg/dL suggests IMPAIRED HOMEOSTASIS per A.D.A. criteria. Neutrophils (Bld) [#/Vol] 9.2 10*3/uL 2.0-7.7 [facility] Neutrophils/100 WBC (Bld) 77.7 % 47-70 [facility] Potassium [Moles/Vol] 4.1 mmol/L 3.5-5.1 [facility] Comment on above: Slight Hemolysis, Re sult may be falsely increased. Sodium [Moles/Vol] 137 mmol/L 136-145 [facility] WBC (Bld) [#/Vol] 11.9 10*3/uL 4.4-11.0 [facility] Blood erythrocytes count (nu mber/volume)Ordered By: Dr. Craft on 09-28-2022 RBC (Bld) [#/Vol] 4.30 10*6/uL 4.2-5.4 [facility] Blood hemoglobin measurement (mass/volume)Ordered By: Dr. Craft on 09-28-2022 Hemoglobin (Bld) [Mass/Vol] 13.2 g/dL 12.0-15.0 [facility] Blood lymphocytes/100 leukoc ytesOrdered By: Dr. Craft on 09-28-2022 Lymphocytes/100 WBC (Bld) 7.4 % 19-41 [facility] Blood monocytes/100 leukocyt esOrdered By: Dr. Craft on 09-28-2022 Monocytes/100 WBC (Bld) 6.7 % 0-10 [facility] Blood platelet mean volumeOr dered By: Dr. Craft on 09-28-2022 Platelet mean volume (Bld) [Entitic vol] 9.6 fL 6.2-12.0 [facility] Determination of erythrocyte mean corpuscular volume (MCV)Ordered By: Dr. Craft on 09-28-2022 MCV (RBC) [Entitic vol] 94.9 fL 81-99 [facility] Erythrocyte sedimentation ra teOrdered By: Dr. Craft on 09-28-2022 ESR (Bld) [Velocity] 7 mm/h 0-30 [facility] Hematocrit Auto (Bld) [Volum e fraction]Ordered By: Dr. Craft on 09-28-2022 Hematocrit (Bld) [Volume fraction] 40.8 % 37-47 [facility] Laboratory - Chemistry and C hemistry - challengeOrdered By: Dr. Craft on 09-28-2022 CO2 [Moles/Vol] 26.0 mmol/L 21.0-32.0 [facility] Magnesium [Mass/Vol] 1.4 mg/dL 1.6-2.6 [facility] Comment on above: Slight Hemolysis, Re sult may be falsely increased. Urea nitrogen/Creatinine [Mass ratio] 25.7 mg/mg 10-20 [facility] Laboratory - Hematology and Cell countsOrdered By: Dr. Craft on 09-28-2022 Erythrocyte distribution width (RBC) [Entitic vol] 51.0 fL 35.1-43.9 [facility] Erythrocyte distribution width (RBC) [Ratio] 14.6 % 11.6-14.6 [facility] Immature granulocytes/100 WBC (Bld) 3.900 % 0.0-0.9 [facility] Comment on above: IG% - Immature Granu locytes (promyelocytes, myelocytes and metamyelocytes) > 1% indicates that a LEFT SHIFT is Present. MCH (RBC) [Entitic mass] 30.7 pg 27.0-32.0 [facility] Nucleated RBC/100 WBC (Bld) [Ratio] 0 % 0-5 [facility] Auto (RBC) [Mass/Vol]Or dered By: Dr. Craft on 09-28-2022 MCHC (RBC) [Mass/Vol] 32.4 g/dL 32-36 [facility] No Panel InformationOrdered By: Dr. Craft on 09-28-2022 Estimated Creatinine Clearance Calc 34.57 ml/min [facility] Estimated GFR (MDRD) Amer 37 mL/min >60 [facility] Comment on above: GFR Calc Estimated GFR (MDRD) Non-Af Amer 31 mL/min >60 [facility] Comment on above: Non- GFR Calc Platelets bldOrdered By: Dr. Craft on 09-28-2022 Platelets (Bld) [#/Vol] 187 10*3/uL 150-450 [facility] Serum or plasma C reactive p rotein measurement (mass/volume)Ordered By: Dr. Craft on 09-28-2022 CRP [Mass/Vol] 13.70 mg/L 0.0-3.0 [facility] Comment on above: C-Reactive Protein ( CRP) provides useful information for thediagnosis, therapy and monitoring of inflammatory processesand associated diseases. For the evaluation of Relative Riskfor Cardiovascular Disease, a High Sensitivity CRP (HSCRP)should be ordered. Serum or plasma calcium otoniel urement (mass/volume)Ordered By: Dr. Craft on 09-28-2022 Calcium [Mass/Vol] 8.5 mg/dL 8.5-10.1 [facility] Serum or plasma creatinine m easurement (mass/volume)Ordered By: Dr. Craft on 09-28-2022 Creatinine [Mass/Vol] 1.83 mg/dL 0.55-1.02 [facility] Comment on above: The validity of the calculated GFR & GFRAA in patients over 70 years has not been determined. Clinical correlation is essential. Serum or plasma urea nitroge n measurement (mass/volume)Ordered By: Dr. Craft on 09-28-2022 Urea nitrogen [Mass/Vol] 47 mg/dL 7-18 [facility] Thin prep Papanicolaou smear with manual screeningOrdered By: Dr. Craft on 09-28-2022 Thin prep Papanicolaou smear with manual screening 12 5-15 [facility] Absolute lymphocyte countOrd ered By: Dr. Werner on 09-16-2022 Lymphocytes Auto (Unsp spec) [#/Vol] 0.29 10*3/uL 0.83-4.51 [facility] Basophil percentageOrdered B y: Dr. Werner on 09-16-2022 Basophils/100 WBC (Bld) 0.2 % 0-1 [facility] Chloride [Moles/Vol] 102 mmol/L 98-107 [facility] Eosinophils/100 WBC (Bld) 0.0 % 0-5 [facility] Glucose [Mass/Vol] 155 mg/dL 74-106 [facility] Comment on above: Fasting Glucose resu lt greater than or equal to 126 mg/dL suggests DIABETES MELLITUS per A.D.A. criteria. Neutrophils (Bld) [#/Vol] 16.9 10*3/uL 2.0-7.7 [facility] Neutrophils/100 WBC (Bld) 92.6 % 47-70 [facility] Potassium [Moles/Vol] 5.0 mmol/L 3.5-5.1 [facility] Sodium [Moles/Vol] 135 mmol/L 136-145 [facility] WBC (Bld) [#/Vol] 18.2 10*3/uL 4.4-11.0 [facility] Blood erythrocytes count (nu mber/volume)Ordered By: Dr. Werner on 09-16-2022 RBC (Bld) [#/Vol] 4.84 10*6/uL 4.2-5.4 [facility] Blood hemoglobin measurement (mass/volume)Ordered By: Dr. Werner on 09-16-2022 Hemoglobin (Bld) [Mass/Vol] 15.0 g/dL 12.0-15.0 [facility] Blood lymphocytes/100 leukoc ytesOrdered By: Dr. Werner on 09-16-2022 Lymphocytes/100 WBC (Bld) 1.6 % 19-41 [facility] Blood monocytes/100 leukocyt esOrdered By: Dr. Werner on 09-16-2022 Monocytes/100 WBC (Bld) 4.3 % 0-10 [facility] Blood platelet mean volumeOr dered By: Dr. Werner on 09-16-2022 Platelet mean volume (Bld) [Entitic vol] 9.6 fL 6.2-12.0 [facility] Determination of erythrocyte mean corpuscular volume (MCV)Ordered By: Dr. Werner on 09-16-2022 MCV (RBC) [Entitic vol] 97.3 fL 81-99 [facility] Hematocrit Auto (Bld) [Volum e fraction]Ordered By: Dr. Werner on 09-16-2022 Hematocrit (Bld) [Volume fraction] 47.1 % 37-47 [facility] Laboratory - Chemistry and C hemistry - challengeOrdered By: Dr. Werner on 09-16-2022 CO2 [Moles/Vol] 24.0 mmol/L 21.0-32.0 [facility] Urea nitrogen/Creatinine [Mass ratio] 30.8 mg/mg 10-20 [facility] Laboratory - Hematology and Cell countsOrdered By: Dr. Werner on 09-16-2022 Anisocytosis Ql (Bld) 1+ [facility] Erythrocyte distribution width (RBC) [Entitic vol] 57.4 fL 35.1-43.9 [facility] Erythrocyte distribution width (RBC) [Ratio] 15.9 % 11.6-14.6 [facility] Immature granulocytes/100 WBC (Bld) 1.300 % 0.0-0.9 [facility] Comment on above: IG% - Immature Granu locytes (promyelocytes, myelocytes and metamyelocytes) > 1% indicates that a LEFT SHIFT is Present. MCH (RBC) [Entitic mass] 31.0 pg 27.0-32.0 [facility] Nucleated RBC/100 WBC (Bld) [Ratio] 0 % 0-5 [facility] MCHC Auto (RBC) [Mass/Vol]Or dered By: Dr. Werner on 09-16-2022 MCHC (RBC) [Mass/Vol] 31.8 g/dL 32-36 [facility] Microbial respiratory cultur eOrdered By: Dr. Christopher on 09-16-2022 Bacteria identified Respiratory culture Nom (Unsp spec) or Staphylococcus aureus isolated. [facility] No Panel InformationOrdered By: Dr. Werner on 09-16-2022 Estimated Creatinine Clearance Calc 39.79 ml/min [facility] Estimated GFR (MDRD) Amer 44 mL/min >60 [facility] Comment on above: GFR Calc Estimated GFR (MDRD) Non-Af Amer 36 mL/min >60 [facility] Comment on above: Non- GFR Calc Platelets bldOrdered By: Dr. Werner on 09-16-2022 Platelets (Bld) [#/Vol] 219 10*3/uL 150-450 [facility] Serum or plasma calcium otoniel urement (mass/volume)Ordered By: Dr. Werner on 09-16-2022 Calcium [Mass/Vol] 9.2 mg/dL 8.5-10.1 [facility] Serum or plasma creatinine m easurement (mass/volume)Ordered By: Dr. Werner on 09-16-2022 Creatinine [Mass/Vol] 1.59 mg/dL 0.55-1.02 [facility] Comment on above: The validity of the calculated GFR & GFRAA in patients over 70 years has not been determined. Clinical correlation is essential. Serum or plasma urea nitroge n measurement (mass/volume)Ordered By: Dr. Werner on 09-16-2022 Urea nitrogen [Mass/Vol] 49 mg/dL 7-18 [facility] Thin prep Papanicolaou smear with manual screeningOrdered By: Dr. Werner on 09-16-2022 Thin prep Papanicolaou smear with manual screening 9 5-15 [facility] Basophil percentageOrdered B y: Dr. Werner on 09-15-2022 Basophil percentage 3.8 mg/dL 2.5-4.9 [facility] Blood manual differential co mment interpretation (narrative result)Ordered By: Dr. Werner on 09-15-2022 Manual differential comment Duglas (Bld) [Interp] SCANNED [facility] Gram stain for investigation of transfusion reactionOrdered By: Dr. Christopher on 09-15-2022 Microscopic observation Gram stain Nom (Unsp spec) [facility] Laboratory - Chemistry and C hemistry - challengeOrdered By: Dr. Werner on 09-15-2022 Magnesium [Mass/Vol] 2.1 mg/dL 1.6-2.6 [facility] Basophil percentageOrdered B y: Dr. Christopher on 09-14-2022 Bilirubin [Mass/Vol] 1.50 mg/dL 0.20-1.00 [facility] Comment on above: For patients on eltr ombopag therapy, use of Dimension [place] TBIL is not recommended. Cholesterol [Mass/Vol] 182 mg/dL <200 [facility] Comment on above: <200 mg/dL Desirable 200-240 mg/dL Borderline >240 mg/dL High Risk Protein [Mass/Vol] 8.2 g/dL 6.4-8.2 [facility] Triglyceride [Mass/Vol] 97 mg/dL <199 [facility] Comment on above: The drugs N-Acetylcy steine and Metamizole may falsely depress this assay.Serum Triglycerides Reference Interval Normal <150 mg/dL Borderline high 150 - 199 mg/dL High 200 - 499 mg/dL Very High > or = 500 mg/dL Laboratory - Chemistry and C hemistry - challengeOrdered By: Dr. Christopher on 09-14-2022 ALP [Catalytic activity/Vol] 80 U/L 45-117 [facility] ALT [Catalytic activity/Vol] 19 U/L 13-56 [facility] Globulin (S) [Mass/Vol] 4.8 g/dL 2.2-4.2 [facility] No Panel InformationOrdered By: Dr. Christopher on 09-14-2022 Thyroid Stimulating Hormone (TSH) 1.17 uIU/mL 0.358-3.74 [facility] Streptococcus pneumoniae Antigen (M [facility] Serum or plasma albumin otoniel urement (mass/volume)Ordered By: Dr. Christopher on 09-14-2022 Albumin [Mass/Vol] 3.4 g/dL 3.2-5.0 [facility] Serum or plasma albumin/glob ulin mass ratioOrdered By: Dr. Christopher on 09-14-2022 Albumin/Globulin [Mass ratio] 0.7 {ratio} 0.9-2.4 [facility] Serum or plasma cholesterol in HDL measurement (mass/volume)Ordered By: Dr. Christopher on 09-14-2022 Cholesterol in HDL [Mass/Vol] 109 mg/dL >40 [facility] Comment on above: The drugs N-Acetylcy steine and Metamizole may falsely depress this assay. Reference Range HDL <40 mg/dL Low HDL Cholesterol HDL >or= 60 mg/dL High HDL Cholesterol Serum or plasma cholesterol in VLDL measurement (mass/volume)Ordered By: Dr. Christopher on 09-14-2022 Cholesterol in VLDL [Mass/Vol] 19 mg/dL 5-40 [facility] Serum or plasma low density lipoprotein (LDL) cholesterol measurement (mass/volume)Ordered By: Dr. Christopher on 09-14-2022 Cholesterol in LDL [Mass/Vol] 54 mg/dL 0-130 [facility] Thin prep Papanicolaou smear with manual screeningOrdered By: Dr. Christopher on 09-14-2022 Thin prep Papanicolaou smear with manual screening 13 U/L 15-37 [facility] Absolute lymphocyte counton 09-13-2022 Lymphocytes Auto (Unsp spec) [#/Vol] 0.28 10*3/uL 0.83-4.51 [facility] Work Phone: Basophil percentageon 2022 Basophils/100 WBC (Bld) 0.3 % 0-1 [facility] Work Phone: Chloride [Moles/Vol] 107 mmol/L 98-107 [facility] Work Phone: Eosinophils/100 WBC (Bld) 0.9 % 0-5 [facility] Work Phone: Glucose [Mass/Vol] 101 mg/dL 74-106 [facility] Work Phone: Comment on above: Fasting Glucose resu lt from 100 to 125 mg/dL suggests IMPAIRED HOMEOSTASIS per A.D.A. criteria. Neutrophils (Bld) [#/Vol] 14.8 10*3/uL 2.0-7.7 [facility] Work Phone: Neutrophils/100 WBC (Bld) 93.4 % 47-70 [facility] Work Phone: Potassium [Moles/Vol] 4.8 mmol/L 3.5-5.1 [facility] Work Phone: Comment on above: Slight Hemolysis, Re sult may be falsely increased. Sodium [Moles/Vol] 139 mmol/L 136-145 [facility]: [phone] WBC (Bld) [#/Vol] 15.9 10*3/uL 4.4-11.0 [facility] Work Phone: [phone] Blood erythrocytes count (nu mber/volume)on 09-13-2022 RBC (Bld) [#/Vol] 4.50 10*6/uL 4.2-5.4 [facility] Work Phone: [phone] Blood hemoglobin measurement (mass/volume)on 09-13-2022 Hemoglobin (Bld) [Mass/Vol] 13.7 g/dL 12.0-15.0 [facility] Work Phone: [phone] Blood lymphocytes/100 leukoc yteson 09-13-2022 Lymphocytes/100 WBC (Bld) 1.8 % 19-41 [facility] Work Phone: [phone] Blood monocytes/100 leukocyt eson 09-13-2022 Monocytes/100 WBC (Bld) 3.0 % 0-10 [facility] Work Phone: [phone] Blood platelet mean volumeon 09-13-2022 Platelet mean volume (Bld) [Entitic vol] 9.7 fL 6.2-12.0 [facility] Work Phone: [phone] Determination of erythrocyte mean corpuscular volume (MCV)on 09-13-2022 MCV (RBC) [Entitic vol] 96.2 fL 81-99 [facility] Work Phone: [phone] Hematocrit Auto (Bld) [Volum e fraction]on 09-13-2022 Hematocrit (Bld) [Volume fraction] 43.3 % 37-47 [facility] Work Phone: [phone] Laboratory - Chemistry and C hemistry - challengeon 09-13-2022 CO2 [Moles/Vol] 24.0 mmol/L 21.0-32.0 [facility] Work Phone: [phone] Urea nitrogen/Creatinine [Mass ratio] 19.3 mg/mg 10-20 [facility] Work Phone: [phone] Laboratory - Chemistry and C hemistry - challengeOrdered By: Dr. Reardon on 09-13-2022 Natriuretic peptide B (Bld) [Mass/Vol] 328.4 pg/mL 0-100 [facility] Laboratory - Hematology and Cell countson 09-13-2022 Erythrocyte distribution width (RBC) [Entitic vol] 55.0 fL 35.1-43.9 [facility] Work Phone: [phone] Erythrocyte distribution width (RBC) [Ratio] 15.9 % 11.6-14.6 [facility] Work Phone: [phone] Immature granulocytes/100 WBC (Bld) 0.600 % 0.0-0.9 [facility] Work Phone: [phone] Comment on above: IG% - Immature Granu locytes (promyelocytes, myelocytes and metamyelocytes) > 1% indicates that a LEFT SHIFT is Present. MCH (RBC) [Entitic mass] 30.4 pg 27.0-32.0 [facility] Work Phone: [phone] Nucleated RBC/100 WBC (Bld) [Ratio] 0 % 0-5 [facility] Work Phone: [phone] Laboratory - Microbiology an d Antimicrobial susceptibilityOrdered By: Dr. Christopher on 09-13-2022 SARS-CoV-2 (COVID-19) RNA BATSHEVA+probe Ql (Unsp spec) Not detected Not Detect [facility] Comment on above: Normal Reference Ran ge: Not DetectedMethod:(RT-PCR) real-time reverse transcriptase PCRLuminex BAY Instrument*The Food and Drug Administration (FDA) has issued an Emergency Use Authorization (EAU) for the BAY SARS-CoV-2 Assay for the rapid detection of the virus that causes COVID-19. This test has been validated, but the FDAs independent review of this validation is pending.*Negative results do not preclude infection and should not be used as the sole basis for treatment or patient management. Optimum specimen types and timing for peak viral levels during infections caused by SARS-CoV-2 have not been determined. Collection of multiple specimens from the same patient may be necessary to detect the virus. The possibility of a false negative result should be considered if the patient has clinical presentation or has had recent exposure. MCHC Auto (RBC) [Mass/Vol]on 09-13-2022 MCHC (RBC) [Mass/Vol] 31.6 g/dL 32-36 [facility] Work Phone: No Panel InformationOrdered By: Dr. Christopher on 09-13-2022 Troponin I High Sensitivity 11 pg/mL 3.0-54.0 [facility] Comment on above: Please Note: New Rush t Units and Gender Specific Reference Ranges. For more information see Policy Stat Procedure [place] High Sensitivity Troponin (TNIH) and attachments. No Panel Informationon 09-13 Troponin I High Sensitivity 8 pg/mL 3.0-54.0 [facility] Work Phone: Comment on above: Please Note: New Rush t Units and Gender Specific Reference Ranges. For more information see Policy Stat Procedure [place] High Sensitivity Troponin (TNIH) and attachments. Estimated Creatinine Clearance Calc 32.12 ml/min [facility] Work Phone: [phone] Estimated GFR (MDRD) Amer 34 mL/min >60 [facility] Work Phone: Comment on above: GFR Calc Estimated GFR (MDRD) Non-Af Amer 28 mL/min >60 [facility] Work Phone: Comment on above: Non- GFR Calc Platelets bldon 09-13-2022 Platelets (Bld) [#/Vol] 148 10*3/uL 150-450 [facility] Work Phone: [phone] Serum or plasma calcium otoniel urement (mass/volume)on 09-13-2022 Calcium [Mass/Vol] 8.7 mg/dL 8.5-10.1 [facility] Work Phone: [phone] Serum or plasma creatinine m easurement (mass/volume)on 09-13-2022 Creatinine [Mass/Vol] 1.97 mg/dL 0.55-1.02 [facility] Work Phone: Comment on above: The validity of the calculated GFR & GFRAA in patients over 70 years has not been determined. Clinical correlation is essential. Serum or plasma urea nitroge n measurement (mass/volume)on 09-13-2022 Urea nitrogen [Mass/Vol] 38 mg/dL 7-18 [facility] Work Phone: Serum procalcitonin measurem entOrdered By: Dr. Christopher on 09-13-2022 Procalcitonin [Mass/Vol] 0.43 ng/mL 0.00-0.09 [facility] Comment on above: A procalcitonin (PCT ) level above 2.0 ng/mL on the first day of ICU admission is associated with a high risk for progression to severe sepsis and/or septic shock. A PCT level below 0.5 ng/mL on the first day of ICU admission is associated with a low risk for progression to severe and/or septic shock. Note: Concentrations <0.5 ng/mL do not exclude an infection on account of localized infections (without systemic signs) which can be associated with such low concentrations, or a systemic infection in its initial stages (<6 hours). Furthermore, increased procalcitonin can occur without infection. PCT concentrations between 0.5 and 2.0 ng/mL should be interpreted taking into account the patient's history. It is recommended to retest PCT within 6-24 hours if any concentrations <2 ng/mL are obtained. Thin prep Papanicolaou smear with manual screeningon 09-13-2022 Thin prep Papanicolaou smear with manual screening 8 5-15 [facility] Work Phone: Absolute lymphocyte countOrd ered By: Jasmyne Sparks on 09-11-2022 Lymphocytes Auto (Unsp spec) [#/Vol] 0.58 10*3/uL 0.83-4.51 [facility] Basophil percentageOrdered B y: Jasmyne Sparks on 09-11-2022 Basophils/100 WBC (Bld) 0.6 % 0-1 [facility] Chloride [Moles/Vol] 107 mmol/L 98-107 [facility] Eosinophils/100 WBC (Bld) 3.8 % 0-5 [facility] Glucose [Mass/Vol] 106 mg/dL 74-106 [facility] Comment on above: Fasting Glucose resu lt from 100 to 125 mg/dL suggests IMPAIRED HOMEOSTASIS per A.D.A. criteria. Neutrophils (Bld) [#/Vol] 5.5 10*3/uL 2.0-7.7 [facility] Neutrophils/100 WBC (Bld) 77.8 % 47-70 [facility] Potassium [Moles/Vol] 4.6 mmol/L 3.5-5.1 [facility] Sodium [Moles/Vol] 139 mmol/L 136-145 [facility] WBC (Bld) [#/Vol] 7.1 10*3/uL 4.4-11.0 [facility] Blood erythrocytes count (nu mber/volume)Ordered By: Jasmyne Sparks on 09-11-2022 RBC (Bld) [#/Vol] 4.39 10*6/uL 4.2-5.4 [facility] Blood hemoglobin measurement (mass/volume)Ordered By: Jasmyne Sparks on 09-11-2022 Hemoglobin (Bld) [Mass/Vol] 13.4 g/dL 12.0-15.0 [facility] Blood lymphocytes/100 leukoc ytesOrdered By: Jasmyne Sparks on 09-11-2022 Lymphocytes/100 WBC (Bld) 8.2 % 19-41 [facility] Blood manual differential co mment interpretation (narrative result)Ordered By: Jasmyne Sparks on 09-11-2022 Manual differential comment Duglas (Bld) [Interp] SCANNED [facility] Comment on above: LYMPHOPENIA NOTED Blood monocytes/100 leukocyt esOrdered By: Jasmyne Sparks on 09-11-2022 Monocytes/100 WBC (Bld) 8.5 % 0-10 [facility] Blood platelet mean volumeOr dered By: Jasmyne Sparks on 09-11-2022 Platelet mean volume (Bld) [Entitic vol] 9.6 fL 6.2-12.0 [facility] Determination of erythrocyte mean corpuscular volume (MCV)Ordered By: Jasmyne Sparks on 09-11-2022 MCV (RBC) [Entitic vol] 97.3 fL 81-99 [facility] Hematocrit Auto (Bld) [Volum e fraction]Ordered By: Jasmyne Sparks on 09-11-2022 Hematocrit (Bld) [Volume fraction] 42.7 % 37-47 [facility] Laboratory - Chemistry and C hemistry - challengeOrdered By: Jasmyne Sparks on 09-11-2022 CO2 [Moles/Vol] 26.0 mmol/L 21.0-32.0 [facility] Natriuretic peptide B (Bld) [Mass/Vol] 313.6 pg/mL 0-100 [facility] Urea nitrogen/Creatinine [Mass ratio] 18.2 mg/mg 10-20 [facility] Laboratory - Hematology and Cell countsOrdered By: Jasmyne Sparks on 09-11-2022 Erythrocyte distribution width (RBC) [Entitic vol] 56.1 fL 35.1-43.9 [facility] Erythrocyte distribution width (RBC) [Ratio] 15.8 % 11.6-14.6 [facility] Immature granulocytes/100 WBC (Bld) 1.100 % 0.0-0.9 [facility] Comment on above: IG% - Immature Granu locytes (promyelocytes, myelocytes and metamyelocytes) > 1% indicates that a LEFT SHIFT is Present. MCH (RBC) [Entitic mass] 30.5 pg 27.0-32.0 [facility] Nucleated RBC/100 WBC (Bld) [Ratio] 0 % 0-5 [facility] MCHC Auto (RBC) [Mass/Vol]Or dered By: Jasmyne Sparks on 09-11-2022 MCHC (RBC) [Mass/Vol] 31.4 g/dL 32-36 [facility] No Panel InformationOrdered By: Jasmyne Sparks on 09-11-2022 Estimated GFR (MDRD) Amer 52 mL/min >60 [facility] Comment on above: GFR Calc Estimated GFR (MDRD) Non-Af Amer 43 mL/min >60 [facility] Comment on above: Non- GFR Calc Platelets bldOrdered By: Victoria Sparks on 09-11-2022 Platelets (Bld) [#/Vol] 140 10*3/uL 150-450 [facility] Serum or plasma calcium otoniel urement (mass/volume)Ordered By: Jasmyne Sparks on 09-11-2022 Calcium [Mass/Vol] 8.9 mg/dL 8.5-10.1 [facility] Serum or plasma creatinine m easurement (mass/volume)Ordered By: Jasmyne Sparks on 09-11-2022 Creatinine [Mass/Vol] 1.37 mg/dL 0.55-1.02 [facility] Comment on above: The validity of the calculated GFR & GFRAA in patients over 70 years has not been determined. Clinical correlation is essential. Serum or plasma urea nitroge n measurement (mass/volume)Ordered By: Jasmyne Sparks on 09-11-2022 Urea nitrogen [Mass/Vol] 25 mg/dL 7-18 [facility] Thin prep Papanicolaou smear with manual screeningOrdered By: Jasmyne Sparks on 09-11-2022 Thin prep Papanicolaou smear with manual screening 6 5-15 [facility] Absolute lymphocyte countOrd ered By: Gris White on 07-18-2022 Lymphocytes Auto (Unsp spec) [#/Vol] 0.94 10*3/uL 0.83-4.51 [facility] Basophil percentageOrdered B y: Girs White on 07-18-2022 Ammonia (P) [Moles/Vol] 22.0 umol/L 11-32 [facility] Basophils/100 WBC (Bld) 1.1 % 0-1 [facility] Bilirubin [Mass/Vol] 0.80 mg/dL 0.20-1.00 [facility] Comment on above: For patients on eltr ombopag therapy, use of Dimension [place] TBIL is not recommended. Chloride [Moles/Vol] 107 mmol/L 98-107 [facility] Eosinophils/100 WBC (Bld) 4.6 % 0-5 [facility] Glucose [Mass/Vol] 110 mg/dL 74-106 [facility] Comment on above: Fasting Glucose resu lt from 100 to 125 mg/dL suggests IMPAIRED HOMEOSTASIS per A.D.A. criteria. Neutrophils (Bld) [#/Vol] 4.3 10*3/uL 2.0-7.7 [facility] Neutrophils/100 WBC (Bld) 68.9 % 47-70 [facility] Potassium [Moles/Vol] 4.3 mmol/L 3.5-5.1 [facility] Protein [Mass/Vol] 7.6 g/dL 6.4-8.2 [facility] Sodium [Moles/Vol] 141 mmol/L 136-145 [facility] WBC (Bld) [#/Vol] 6.3 10*3/uL 4.4-11.0 [facility] Blood erythrocytes count (nu mber/volume)Ordered By: Gris White on 07-18-2022 RBC (Bld) [#/Vol] 4.46 10*6/uL 4.2-5.4 [facility] Blood hemoglobin measurement (mass/volume)Ordered By: Gris White on 07-18-2022 Hemoglobin (Bld) [Mass/Vol] 13.6 g/dL 12.0-15.0 [facility] Blood lymphocytes/100 leukoc ytesOrdered By: Girs White on 07-18-2022 Lymphocytes/100 WBC (Bld) 15.0 % 19-41 [facility] Blood monocytes/100 leukocyt esOrdered By: Gris White on 07-18-2022 Monocytes/100 WBC (Bld) 9.9 % 0-10 [facility] Blood platelet mean volumeOr dered By: Gris White on 07-18-2022 Platelet mean volume (Bld) [Entitic vol] 9.5 fL 6.2-12.0 [facility] Determination of erythrocyte mean corpuscular volume (MCV)Ordered By: Gris White on 07-18-2022 MCV (RBC) [Entitic vol] 95.1 fL 81-99 [facility] Erythrocyte sedimentation ra teOrdered By: Gris White on 07-18-2022 ESR (Bld) [Velocity] 19 mm/h 0-30 [facility] Hematocrit Auto (Bld) [Volum e fraction]Ordered By: Gris White on 07-18-2022 Hematocrit (Bld) [Volume fraction] 42.4 % 37-47 [facility] INR in Blood by Coagulation assayOrdered By: Gris White on 07-18-2022 INR Coag (Bld) [Relative time] 1.2 {INR} [facility] Laboratory - Chemistry and C hemistry - challengeOrdered By: Gris White on 07-18-2022 ALP [Catalytic activity/Vol] 67 U/L 45-117 [facility] ALT [Catalytic activity/Vol] 21 U/L 13-56 [facility] Amylase [Catalytic activity/Vol] 50 U/L 5-55 [facility] CO2 [Moles/Vol] 28.0 mmol/L 21.0-32.0 [facility] Globulin (S) [Mass/Vol] 3.7 g/dL 2.2-4.2 [facility] Urea nitrogen/Creatinine [Mass ratio] 20.7 mg/mg 10-20 [facility] Laboratory - CoagulationOrde red By: Gris White on 07-18-2022 PT Coag (PPP) [Time] 15.4 s 11.7-14.9 [facility] Laboratory - Hematology and Cell countsOrdered By: Gris White on 07-18-2022 Erythrocyte distribution width (RBC) [Entitic vol] 47.7 fL 35.1-43.9 [facility] Erythrocyte distribution width (RBC) [Ratio] 13.5 % 11.6-14.6 [facility] Immature granulocytes/100 WBC (Bld) 0.500 % 0.0-0.9 [facility] Comment on above: IG% - Immature Granu locytes (promyelocytes, myelocytes and metamyelocytes) > 1% indicates that a LEFT SHIFT is Present. MCH (RBC) [Entitic mass] 30.5 pg 27.0-32.0 [facility] Nucleated RBC/100 WBC (Bld) [Ratio] 0 % 0-5 [facility] MCHC Auto (RBC) [Mass/Vol]Or dered By: Gris White on 07-18-2022 MCHC (RBC) [Mass/Vol] 32.1 g/dL 32-36 [facility] No Panel InformationOrdered By: Gris White on 07-18-2022 Estimated GFR (MDRD) Amer 51 mL/min >60 [facility] Comment on above: GFR Calc Estimated GFR (MDRD) Non-Af Amer 42 mL/min >60 [facility] Comment on above: Non- GFR Calc Haptoglobin 114 mg/dL 33-346 [facility] Comment on above: Performed at: [address] [id number] Director: Angeles Garsia MD, Phone: [phone] at: CB - [facility] [address] [id number] Director: Barrington Iraheta PhD, Phone: [phone] Platelets bldOrdered By: Esther White on 07-18-2022 Platelets (Bld) [#/Vol] 168 10*3/uL 150-450 [facility] Serum or plasma C reactive p rotein measurement (mass/volume)Ordered By: Gris White on 07-18-2022 CRP [Mass/Vol] mg/L 0.0-3.0 [facility] Comment on above: C-Reactive Protein ( CRP) provides useful information for thediagnosis, therapy and monitoring of inflammatory processesand associated diseases. For the evaluation of Relative Riskfor Cardiovascular Disease, a High Sensitivity CRP (HSCRP)should be ordered. Serum or plasma albumin otoniel urement (mass/volume)Ordered By: Gris White on 07-18-2022 Albumin [Mass/Vol] 3.9 g/dL 3.2-5.0 [facility] Serum or plasma albumin/glob ulin mass ratioOrdered By: Gris White on 07-18-2022 Albumin/Globulin [Mass ratio] 1.1 {ratio} 0.9-2.4 [facility] Serum or plasma calcium otoniel urement (mass/volume)Ordered By: Gris White on 07-18-2022 Calcium [Mass/Vol] 9.5 mg/dL 8.5-10.1 [facility] Serum or plasma creatinine m easurement (mass/volume)Ordered By: Gris White on 07-18-2022 Creatinine [Mass/Vol] 1.40 mg/dL 0.55-1.02 [facility] Comment on above: The validity of the calculated GFR & GFRAA in patients over 70 years has not been determined. Clinical correlation is essential. Serum or plasma ferritin lei surement (mass/volume)Ordered By: Gris White on 07-18-2022 Ferritin [Mass/Vol] 22 ng/mL 8-252 [facility] Serum or plasma urea nitroge n measurement (mass/volume)Ordered By: Gris White on 07-18-2022 Urea nitrogen [Mass/Vol] 29 mg/dL 7-18 [facility] Thin prep Papanicolaou smear with manual screeningOrdered By: Gris White on 07-18-2022 Thin prep Papanicolaou smear with manual screening 11 U/L 15-37 [facility] Thin prep Papanicolaou smear with manual screening 6 5-15 [facility] Thin prep Papanicolaou smear with manual screening 150 U/L 84-246 [facility] Thin prep Papanicolaou smear with manual screening 107 ug/dL 80-158 [facility] Comment on above: Detection Limit = 5 Basophil percentageOrdered B y: Jasmyne Sparks on 06-18-2022 Chloride [Moles/Vol] 106 mmol/L 98-107 [facility] Glucose [Mass/Vol] 106 mg/dL 74-106 [facility] Comment on above: Fasting Glucose resu lt from 100 to 125 mg/dL suggests IMPAIRED HOMEOSTASIS per A.D.A. criteria. Potassium [Moles/Vol] 4.8 mmol/L 3.5-5.1 [facility] Sodium [Moles/Vol] 139 mmol/L 136-145 [facility] Laboratory - Chemistry and C hemistry - challengeOrdered By: Jasmyne Sparks on 06-18-2022 CO2 [Moles/Vol] 28.0 mmol/L 21.0-32.0 [facility] Urea nitrogen/Creatinine [Mass ratio] 19.7 mg/mg 10-20 [facility] No Panel InformationOrdered By: Jasmyne Sparks on 06-18-2022 Estimated GFR (MDRD) Amer 57 mL/min >60 [facility] [facility] Comment on above: GFR Calc Estimated GFR (MDRD) Non-Af Amer 47 mL/min >60 [facility] Comment on above: Non- GFR Calc Serum or plasma calcium otoniel urement (mass/volume)Ordered By: Jasmyne Sparks on 06-18-2022 Calcium [Mass/Vol] 9.2 mg/dL 8.5-10.1 [facility] Serum or plasma creatinine m easurement (mass/volume)Ordered By: Jasmyne Sparks on 06-18-2022 Creatinine [Mass/Vol] 1.27 mg/dL 0.55-1.02 [facility] Comment on above: The validity of the calculated GFR & GFRAA in patients over 70 years has not been determined. Clinical correlation is essential. Serum or plasma urea nitroge n measurement (mass/volume)Ordered By: Jasmyne Sparks on 06-18-2022 Urea nitrogen [Mass/Vol] 25 mg/dL -18 [facility] Thin prep Papanicolaou smear with manual screeningOrdered By: Jasmyne Sparks on 06-18-2022 Thin prep Papanicolaou smear with manual screening 5 5-15 [facility] Basophil percentageOrdered B y: Dr. Benavides on 06-10-2022 Chloride [Moles/Vol] 106 mmol/L 98-107 [facility] Glucose [Mass/Vol] 90 mg/dL 74-106 [facility] Potassium [Moles/Vol] 4.0 mmol/L 3.5-5.1 [facility] Sodium [Moles/Vol] 140 mmol/L 136-145 [facility] Laboratory - Chemistry and C hemistry - challengeOrdered By: Dr. Benavides on 06-10-2022 CO2 [Moles/Vol] 28.0 mmol/L 21.0-32.0 [facility] Urea nitrogen/Creatinine [Mass ratio] 17.7 mg/mg 06-20 [facility] No Panel InformationOrdered By: Dr. Benavides on 06-10-2022 Estimated GFR (MDRD) Amer 39 mL/min >60 [facility] Comment on above: GFR Calc Estimated GFR (MDRD) Non-Af Amer 32 mL/min >60 [facility] Comment on above: Non- GFR Calc Serum or plasma calcium otoniel urement (mass/volume)Ordered By: Dr. Benavides on 06-10-2022 Calcium [Mass/Vol] 9.3 mg/dL 8.5-10.1 [facility] Serum or plasma creatinine m easurement (mass/volume)Ordered By: Dr. Benavides on 06-10-2022 Creatinine [Mass/Vol] 1.75 mg/dL 0.55-1.02 [facility] Comment on above: The validity of the calculated GFR & GFRAA in patients over 70 years has not been determined. Clinical correlation is essential. Serum or plasma urea nitroge n measurement (mass/volume)Ordered By: Dr. Benavides on 06-10-2022 Urea nitrogen [Mass/Vol] 31 mg/dL 7-18 [facility] Thin prep Papanicolaou smear with manual screeningOrdered By: Dr. Benavides on 06-10-2022 Thin prep Papanicolaou smear with manual screening 6 5-15 [facility] Laboratory - Drug toxicology on 05-23-2022 Amphetamines Ql (U) Negative <1000 ng/mL [facility] Work Phone: Benzodiazepines Ql (U) Negative < 200 ng/mL [facility] Work Phone: [phone] Cannabinoids Screen Ql (U) Negative < 50 ng/mL [facility] Work Phone: [phone] Cocaine Ql (U) Negative < 300 ng/mL [facility] Work Phone: Opiates Ql (U) Negative < 300 ng/mL [facility] Work Phone: No Panel Informationon 05-23 MDMA (Ecstasy) Screen Positive < 500 ng/mL [facility] Work Phone: Urine Barbiturates Screen Positive < 200 ng/mL [facility] Work Phone: Urine Drug Screen Comment [facility] Work Phone: Comment on above: CONFIRMATORY TESTING FOR ALL POSITIVE URINE DRUG SCREENRESULTS WILL ONLY BE SENT OUT UPON PHYSICIAN ORDER. VISTA Urine Drug Screen methods provide only preliminaryanalytical test results. A more specific alternate chemicalmethod must be used in order to obtain a confirmedanalytical result. Gas chromatography/mass spectrometery(GC/MS) is the preferred confirmatory method. Clinicalconsideration and professional judgement should be appliedto any drug of abuse test result, particularly whenpreliminary positive results are used. URINE TCA TESTING MUST BE ORDERED SEPARATELY. USE TESTMNEMONIC: [facility] Urine Methadone Screen Negative < 300 ng/mL [facility] Work Phone: Urine phencyclidine (PCP) de tectionon 05-23-2022 Phencyclidine Ql (U) Negative < 25 ng/mL [facility] Work Phone: Absolute lymphocyte counton 05-22-2022 Lymphocytes Auto (Unsp spec) [#/Vol] 1.08 10*3/uL 0.83-4.51 [facility] Work Phone: Basophil percentageon 2021 Basophil percentage 4.0 mg/dL 2.5-4.9 [facility] Work Phone: Basophils/100 WBC (Bld) 0.7 % 0-1 [facility] Work Phone: Chloride [Moles/Vol] 104 mmol/L 98-107 [facility] Work Phone: Eosinophils/100 WBC (Bld) 2.2 % 0-5 [facility] Work Phone: Glucose [Mass/Vol] 102 mg/dL 74-106 [facility] Work Phone: Comment on above: Fasting Glucose resu lt from 100 to 125 mg/dL suggests IMPAIRED HOMEOSTASIS per A.D.A. criteria. Neutrophils (Bld) [#/Vol] 6.8 10*3/uL 2.0-7.7 [facility] Work Phone: Neutrophils/100 WBC (Bld) 71.5 % 47-70 [facility] Work Phone: Potassium [Moles/Vol] 4.0 mmol/L 3.5-5.1 [facility] Work Phone: Sodium [Moles/Vol] 135 mmol/L 136-145 [facility] Work Phone: WBC (Bld) [#/Vol] 9.5 10*3/uL 4.4-11.0 [facility] Work Phone: Blood erythrocytes count (nu mber/volume)on 05-22-2022 RBC (Bld) [#/Vol] 3.84 10*6/uL 4.2-5.4 [facility] Work Phone: Blood hemoglobin measurement (mass/volume)on 05-22-2022 Hemoglobin (Bld) [Mass/Vol] 11.7 g/dL 12.0-15.0 [facility] Work Phone: Blood lymphocytes/100 leukoc yteson 05-22-2022 Lymphocytes/100 WBC (Bld) 11.4 % 19-41 [facility] Work Phone: Blood monocytes/100 leukocyt eson 05-22-2022 Monocytes/100 WBC (Bld) 11.9 % 0-10 [facility] Work Phone: Blood platelet mean volumeon 05-22-2022 Platelet mean volume (Bld) [Entitic vol] 9.5 fL 6.2-12.0 [facility] Work Phone: Determination of erythrocyte mean corpuscular volume (MCV)on 05-22-2022 MCV (RBC) [Entitic vol] 96.6 fL 81-99 [facility] Work Phone: Hematocrit Auto (Bld) [Volum e fraction]on 05-22-2022 Hematocrit (Bld) [Volume fraction] 37.1 % 37-47 [facility] Work Phone: Laboratory - Chemistry and C hemistry - challengeon 05-22-2022 CO2 [Moles/Vol] 20.0 mmol/L 21.0-32.0 [facility] Work Phone: Free T4 [Mass/Vol] 1.23 ng/dL 0.76-1.[address] [facility] r [facility] Work Phone: [phone] Magnesium [Mass/Vol] 1.9 mg/dL 1.6-2.[address] [facility] Work Phone: Urea nitrogen/Creatinine [Mass ratio] 24.0 mg/mg 10-20 [facility] Work Phone: Laboratory - Hematology and Cell countson 05-22-2022 Erythrocyte distribution width (RBC) [Entitic vol] 51.6 fL 35.1-43.9 [facility] Work Phone: [phone] Erythrocyte distribution width (RBC) [Ratio] 14.4 % 11.6-14.6 [facility] Work Phone: [phone] Immature granulocytes/100 WBC (Bld) 2.300 % 0.0-0.9 [facility] Work Phone: [phone] Comment on above: IG% - Immature Granu locytes (promyelocytes, myelocytes and metamyelocytes) > 1% indicates that a LEFT SHIFT is Present. MCH (RBC) [Entitic mass] 30.5 pg 27.0-32.0 [facility] Work Phone: [phone] Nucleated RBC/100 WBC (Bld) [Ratio] 0 % 0-5 [facility] Work Phone: [phone] MCHC Auto (RBC) [Mass/Vol]on 05-22-2022 MCHC (RBC) [Mass/Vol] 31.5 g/dL 32-36 [facility] Work Phone: No Panel Informationon 05-22 Estimated Creatinine Clearance Calc 42.18 ml/min [facility] Work Phone: [phone] Estimated GFR (MDRD) Amer 47 mL/min >60 [facility] Work Phone: [phone] Comment on above: GFR Calc Estimated GFR (MDRD) Non-Af Amer 39 mL/min >60 [facility] Work Phone: [phone] Comment on above: Non- GFR Calc Ethyl Alcohol Level < 3.0 mg/dL [facility] Work Phone: [phone] Comment on above: The serum:whole bloo d ethanol ratio is approximately 1.14and varies slightly with hematocrit. Medical Alcohol reference interval and critical value innon-tolerant individuals; 50 - 100 Impairment 100 Intoxication 100 - 250 Severe Poisoning 250 - 400 Deep/possible fatal coma Thyroid Stimulating Hormone (TSH) 2.64 uIU/mL 0.358-3.74 [facility] Work Phone: Troponin I High Sensitivity 16 pg/mL 3.0-54.0 [facility] Work Phone: [phone] Comment on above: Please Note: New Rush t Units and Gender Specific Reference Ranges. For more information see Policy Stat Procedure [place] High Sensitivity Troponin (TNIH) and attachments. Platelets bldon 05-22-2022 Platelets (Bld) [#/Vol] 247 10*3/uL 150-450 [facility] Work Phone: Serum or plasma calcium otoniel urement (mass/volume)on 05-22-2022 Calcium [Mass/Vol] 9.0 mg/dL 8.5-10.[address] [facility] r [facility] Work Phone: [phone] Serum or plasma creatinine m easurement (mass/volume)on 05-22-2022 Creatinine [Mass/Vol] 1.50 mg/dL 0.55-1.02 [facility] Work Phone: [phone] Comment on above: The validity of the calculated GFR & GFRAA in patients over 70 years has not been determined. Clinical correlation is essential. Serum or plasma urea nitroge n measurement (mass/volume)on 05-22-2022 Urea nitrogen [Mass/Vol] 36 mg/dL 7-18 [facility] Work Phone: Thin prep Papanicolaou smear with manual screeningon 05-22-2022 Thin prep Papanicolaou smear with manual screening 11 5-15 [facility] Work Phone: [phone] Absolute lymphocyte counton 05-21-2022 Lymphocytes Auto (Unsp spec) [#/Vol] 0.80 10*3/uL 0.83-4.51 [facility] Work Phone: Basophil percentageon 2021 Basophils/100 WBC (Bld) 0.8 % 0-1 [facility] Work Phone: [phone] Bilirubin [Mass/Vol] 0.60 mg/dL 0.20-1.00 [facility] Work Phone: [phone] Comment on above: For patients on eltr ombopag therapy, use of Dimension [place] TBIL is not recommended. Chloride [Moles/Vol] 101 mmol/L 98-107 [facility] Work Phone: Eosinophils/100 WBC (Bld) 1.5 % 0-5 [facility] Work Phone: Glucose [Mass/Vol] 103 mg/dL 74-106 [facility] Work Phone: Comment on above: Fasting Glucose resu lt from 100 to 125 mg/dL suggests IMPAIRED HOMEOSTASIS per A.D.A. criteria. Neutrophils (Bld) [#/Vol] 8.0 10*3/uL 2.0-7.7 [facility] Work Phone: Neutrophils/100 WBC (Bld) 77.6 % 47-70 [facility] Work Phone: Potassium [Moles/Vol] 4.5 mmol/L 3.5-5.1 [facility] Work Phone: Protein [Mass/Vol] 7.9 g/dL 6.4-8.2 [facility] Work Phone: Sodium [Moles/Vol] 135 mmol/L 136-145 [facility] Work Phone: WBC (Bld) [#/Vol] 10.3 10*3/uL 4.4-11.0 [facility] Work Phone: Blood erythrocytes count (nu mber/volume)on 05-21-2022 RBC (Bld) [#/Vol] 4.15 10*6/uL 4.2-5.4 [facility] Work Phone: Blood hemoglobin measurement (mass/volume)on 05-21-2022 Hemoglobin (Bld) [Mass/Vol] 12.7 g/dL 12.0-15.0 [facility] Work Phone: Blood lymphocytes/100 leukoc yteson 05-21-2022 Lymphocytes/100 WBC (Bld) 7.8 % 19-41 [facility] Work Phone: Blood monocytes/100 leukocyt eson 05-21-2022 Monocytes/100 WBC (Bld) 10.2 % 0-10 [facility] Work Phone: Blood platelet mean volumeon 05-21-2022 Platelet mean volume (Bld) [Entitic vol] 9.4 fL 6.2-12.0 [facility] Work Phone: [phone] Determination of erythrocyte mean corpuscular volume (MCV)on 05-21-2022 MCV (RBC) [Entitic vol] 93.7 fL 81-99 [facility] Work Phone: [phone] Comment on above: Delta: 98.8 on 05/18-07 Direct bilirubinon Bilirubin.direct [Mass/Vol] 0.23 mg/dL 0.00-0.30 [facility] Work Phone: [phone] Hematocrit Auto (Bld) [Volum e fraction]on 05-21-2022 Hematocrit (Bld) [Volume fraction] 38.9 % 37-47 [facility] Work Phone: [phone] Laboratory - Chemistry and C hemistry - challengeon 05-21-2022 ALP [Catalytic activity/Vol] 174 U/L 45-117 [facility] Work Phone: [phone] ALT [Catalytic activity/Vol] 19 U/L 13-56 [facility] Work Phone: [phone] CO2 [Moles/Vol] 24.0 mmol/L 21.0-32.0 [facility] Work Phone: [phone] Globulin (S) [Mass/Vol] 4.8 g/dL 2.2-4.2 [facility] Work Phone: [phone] Urea nitrogen/Creatinine [Mass ratio] 25.0 mg/mg 10-20 [facility] Work Phone: [phone] Laboratory - Hematology and Cell countson 05-21-2022 Erythrocyte distribution width (RBC) [Entitic vol] 50.4 fL 35.1-43.9 [facility] Work Phone: [phone] Erythrocyte distribution width (RBC) [Ratio] 14.6 % 11.6-14.6 [facility] Work Phone: [phone] Immature granulocytes/100 WBC (Bld) 2.100 % 0.0-0.9 [facility] Work Phone: [phone] Comment on above: IG% - Immature Granu locytes (promyelocytes, myelocytes and metamyelocytes) > 1% indicates that a LEFT SHIFT is Present. MCH (RBC) [Entitic mass] 30.6 pg 27.0-32.0 [facility] Work Phone: Nucleated RBC/100 WBC (Bld) [Ratio] 0 % 0-5 [facility] Work Phone: [phone] MCHC Auto (RBC) [Mass/Vol]on 05-21-2022 MCHC (RBC) [Mass/Vol] 32.6 g/dL 32-36 [facility] Work Phone: No Panel Informationon 05-21 Estimated Creatinine Clearance Calc 41.62 ml/min [facility] Work Phone: [phone] Estimated GFR (MDRD) Amer 46 mL/min >60 [facility] Work Phone: [phone] Comment on above: GFR Calc Estimated GFR (MDRD) Non-Af Amer 38 mL/min >60 [facility] Work Phone: [phone] Comment on above: Non- GFR Calc Troponin I High Sensitivity 16 pg/mL 3.0-54.0 [facility] Work Phone: Comment on above: Please Note: New Rush t Units and Gender Specific Reference Ranges. For more information see Policy Stat Procedure [place] High Sensitivity Troponin (TNIH) and attachments. Platelets bldon 05-21-2022 Platelets (Bld) [#/Vol] 257 10*3/uL 150-450 [facility] Work Phone: [phone] Serum or plasma albumin otoniel urement (mass/volume)on 05-21-2022 Albumin [Mass/Vol] 3.1 g/dL 3.2-5.0 [facility] Work Phone: [phone] Serum or plasma calcium otoniel urement (mass/volume)on 05-21-2022 Calcium [Mass/Vol] 9.5 mg/dL 8.5-10.1 [facility] Work Phone: [phone] Serum or plasma creatinine m easurement (mass/volume)on 05-21-2022 Creatinine [Mass/Vol] 1.52 mg/dL 0.55-1.02 [facility] Work Phone: Comment on above: The validity of the calculated GFR & GFRAA in patients over 70 years has not been determined. Clinical correlation is essential. Serum or plasma urea nitroge n measurement (mass/volume)on 05-21-2022 Urea nitrogen [Mass/Vol] 38 mg/dL 7-18 [facility] Work Phone: Thin prep Papanicolaou smear with manual screeningon 05-21-2022 Thin prep Papanicolaou smear with manual screening 11 U/L 15-37 [facility] Work Phone: Thin prep Papanicolaou smear with manual screening 10 5-15 [facility] Work Phone: Absolute lymphocyte counton 05-18-2022 Lymphocytes Auto (Unsp spec) [#/Vol] 0.77 10*3/uL 0.83-4.51 [facility] Work Phone: Basophil percentageon 2021 Basophils/100 WBC (Bld) 0.6 % 0-1 [facility] Work Phone: Chloride [Moles/Vol] 103 mmol/L 98-107 [facility] Work Phone: Eosinophils/100 WBC (Bld) 2.3 % 0-5 [facility] Work Phone: Glucose [Mass/Vol] 108 mg/dL 74-106 [facility] Work Phone: Comment on above: Fasting Glucose resu lt from 100 to 125 mg/dL suggests IMPAIRED HOMEOSTASIS per A.D.A. criteria. Neutrophils (Bld) [#/Vol] 9.4 10*3/uL 2.0-7.7 [facility] Work Phone: Neutrophils/100 WBC (Bld) 81.3 % 47-70 [facility] Work Phone: Potassium [Moles/Vol] 4.3 mmol/L 3.5-5.1 [facility] Work Phone: Sodium [Moles/Vol] 134 mmol/L 136-145 [facility] Work Phone: WBC (Bld) [#/Vol] 11.6 10*3/uL 4.4-11.0 [facility] Work Phone: Blood erythrocytes count (nu mber/volume)on 05-18-2022 RBC (Bld) [#/Vol] 4.30 10*6/uL 4.2-5.4 [facility] Work Phone: Blood hemoglobin measurement (mass/volume)on 05-18-2022 Hemoglobin (Bld) [Mass/Vol] 13.5 g/dL 12.0-15.0 [facility] Work Phone: Blood lymphocytes/100 leukoc yteson 05-18-2022 Lymphocytes/100 WBC (Bld) 6.6 % 19-41 [facility] Work Phone: [phone] Blood monocytes/100 leukocyt eson 05-18-2022 Monocytes/100 WBC (Bld) 8.2 % 0-10 [facility] Work Phone: Blood platelet mean volumeon 05-18-2022 Platelet mean volume (Bld) [Entitic vol] 9.3 fL 6.2-12.0 [facility] Work Phone: Determination of erythrocyte mean corpuscular volume (MCV)on 05-18-2022 MCV (RBC) [Entitic vol] 98.8 fL 81-99 [facility] Work Phone: Hematocrit Auto (Bld) [Volum e fraction]on 05-18-2022 Hematocrit (Bld) [Volume fraction] 42.5 % 37-47 [facility] Work Phone: Laboratory - Chemistry and C hemistry - challengeon 05-18-2022 CO2 [Moles/Vol] 21.0 mmol/L 21.0-32.0 [facility] Work Phone: Magnesium [Mass/Vol] 1.5 mg/dL 1.6-2.6 [facility] Work Phone: Urea nitrogen/Creatinine [Mass ratio] 24.7 mg/mg 10-20 [facility] Work Phone: Laboratory - Hematology and Cell countson 05-18-2022 Erythrocyte distribution width (RBC) [Entitic vol] 54.2 fL 35.1-43.9 [facility] Work Phone: [phone] Erythrocyte distribution width (RBC) [Ratio] 14.9 % 11.6-14.6 [facility] Work Phone: [phone] Immature granulocytes/100 WBC (Bld) 1.000 % 0.0-0.9 [facility] Work Phone: Comment on above: IG% - Immature Granu locytes (promyelocytes, myelocytes and metamyelocytes) > 1% indicates that a LEFT SHIFT is Present. MCH (RBC) [Entitic mass] 31.4 pg 27.0-32.0 [facility] Work Phone: Nucleated RBC/100 WBC (Bld) [Ratio] 0 % 0-5 [facility] Work Phone: MCHC Auto (RBC) [Mass/Vol]on 05-18-2022 MCHC (RBC) [Mass/Vol] 31.8 g/dL 32-36 [facility] Work Phone: No Panel Informationon 05-18 Estimated Creatinine Clearance Calc 41.08 ml/min [facility] Work Phone: Estimated GFR (MDRD) Amer 45 mL/min >60 [facility] Work Phone: [phone] Comment on above: GFR Calc Estimated GFR (MDRD) Non-Af Amer 37 mL/min >60 [facility] Work Phone: [phone] Comment on above: Non- GFR Calc Platelets bldon 05-18-2022 Platelets (Bld) [#/Vol] 196 10*3/uL 150-450 [facility] Work Phone: Serum or plasma calcium otoniel urement (mass/volume)on 05-18-2022 Calcium [Mass/Vol] 8.6 mg/dL 8.5-10.1 [facility] Work Phone: Serum or plasma creatinine m easurement (mass/volume)on 05-18-2022 Creatinine [Mass/Vol] 1.54 mg/dL 0.55-1.02 [facility] Work Phone: Comment on above: The validity of the calculated GFR & GFRAA in patients over 70 years has not been determined. Clinical correlation is essential. Serum or plasma urea nitroge n measurement (mass/volume)on 05-18-2022 Urea nitrogen [Mass/Vol] 38 mg/dL 7-18 [facility] Work Phone: Thin prep Papanicolaou smear with manual screeningon 05-18-2022 Thin prep Papanicolaou smear with manual screening 10 5-15 [facility] Work Phone: Glucose Glucometer (BldC) [M ass/Vol]on 05-17-2022 Glucose [Mass/Vol] 136 mg/dL 74-106 [facility] Work Phone: Comment on above: MANAGEMENT OF PATIEN T CARE PER NURSING PROTOCOL Absolute lymphocyte counton 05-16-2022 Lymphocytes Auto (Unsp spec) [#/Vol] 0.85 10*3/uL 0.83-4.51 [facility] Work Phone: Basophil percentageon 2021 Basophils/100 WBC (Bld) 0.8 % 0-1 [facility] Work Phone: Chloride [Moles/Vol] 108 mmol/L 98-107 [facility] Work Phone: Eosinophils/100 WBC (Bld) 2.1 % 0-5 [facility] Work Phone: Glucose [Mass/Vol] 136 mg/dL 74-106 [facility] Work Phone: Comment on above: Fasting Glucose resu lt greater than or equal to 126 mg/dL suggests DIABETES MELLITUS per A.D.A. criteria. Neutrophils (Bld) [#/Vol] 6.2 10*3/uL 2.0-7.7 [facility] Work Phone: Neutrophils/100 WBC (Bld) 78.2 % 47-70 [facility] Work Phone: Potassium [Moles/Vol] 4.1 mmol/L 3.5-5.1 [facility] Work Phone: Sodium [Moles/Vol] 140 mmol/L 136-145 [facility] Work Phone: WBC (Bld) [#/Vol] 8.0 10*3/uL 4.4-11.0 [facility] Work Phone: Blood erythrocytes count (nu mber/volume)on 05-16-2022 RBC (Bld) [#/Vol] 4.25 10*6/uL 4.2-5.4 [facility] Work Phone: Blood hemoglobin measurement (mass/volume)on 05-16-2022 Hemoglobin (Bld) [Mass/Vol] 13.3 g/dL 12.0-15.0 [facility] Work Phone: [phone] Blood lymphocytes/100 leukoc yteson 05-16-2022 Lymphocytes/100 WBC (Bld) 10.7 % 19-41 [facility] Work Phone: [phone] Blood monocytes/100 leukocyt eson 05-16-2022 Monocytes/100 WBC (Bld) 7.3 % 0-10 [facility] Work Phone: Blood platelet mean volumeon 05-16-2022 Platelet mean volume (Bld) [Entitic vol] 9.0 fL 6.2-12.0 [facility] Work Phone: Determination of erythrocyte mean corpuscular volume (MCV)on 05-16-2022 MCV (RBC) [Entitic vol] 94.1 fL 81-99 [facility] Work Phone: Hematocrit Auto (Bld) [Volum e fraction]on 05-16-2022 Hematocrit (Bld) [Volume fraction] 40.0 % 37-47 [facility] Work Phone: Laboratory - Chemistry and C hemistry - challengeon 05-16-2022 CO2 [Moles/Vol] 21.0 mmol/L 21.0-32.0 [facility] Work Phone: [phone] Magnesium [Mass/Vol] 1.5 mg/dL 1.6-2.6 [facility] Work Phone: [phone] Natriuretic peptide B (Bld) [Mass/Vol] 230.3 pg/mL 0-100 [facility] Work Phone: [phone] Urea nitrogen/Creatinine [Mass ratio] 22.4 mg/mg 10-20 [facility] Work Phone: [phone] Laboratory - Hematology and Cell countson 05-16-2022 Erythrocyte distribution width (RBC) [Entitic vol] 49.4 fL 35.1-43.9 [facility] Work Phone: [phone] Erythrocyte distribution width (RBC) [Ratio] 14.5 % 11.6-14.6 [facility] Work Phone: [phone] Immature granulocytes/100 WBC (Bld) 0.900 % 0.0-0.9 [facility] Work Phone: [phone] Comment on above: IG% - Immature Granu locytes (promyelocytes, myelocytes and metamyelocytes) > 1% indicates that a LEFT SHIFT is Present. MCH (RBC) [Entitic mass] 31.3 pg 27.0-32.0 [facility] Work Phone: [phone] Nucleated RBC/100 WBC (Bld) [Ratio] 0 % 0-5 [facility] Work Phone: [phone] MCHC Auto (RBC) [Mass/Vol]on 05-16-2022 MCHC (RBC) [Mass/Vol] 33.3 g/dL 32-36 [facility] Work Phone: [phone] Panel Informationon 05-16 Troponin I High Sensitivity 11 pg/mL 3.0-54.0 [facility] Work Phone: [phone] Comment on above: Please Note: New Rush t Units and Gender Specific Reference Ranges. For more information see Policy Stat Procedure [place] High Sensitivity Troponin (TNIH) and attachments. Thyroid Stimulating Hormone (TSH) 3.69 uIU/mL 0.358-3.74 [facility] Work Phone: Estimated Creatinine Clearance Calc 59.13 ml/min [facility] Work Phone: Estimated GFR (MDRD) Amer 69 mL/min >60 [facility] Work Phone: Comment on above: GFR Calc Estimated GFR (MDRD) Non-Af Amer 57 mL/min >60 [facility] Work Phone: Comment on above: Non- GFR Calc Troponin I High Sensitivity 11 pg/mL 3.0-54.0 [facility] Work Phone: Comment on above: Please Note: New Rush t Units and Gender Specific Reference Ranges. For more information see Policy Stat Procedure [place] High Sensitivity Troponin (TNIH) and attachments. Platelets bldon 05-16-2022 Platelets (Bld) [#/Vol] 183 10*3/uL 150-450 [facility] Work Phone: Serum or plasma calcium otoniel urement (mass/volume)on 05-16-2022 Calcium [Mass/Vol] 8.6 mg/dL 8.5-10.1 [facility] Work Phone: Serum or plasma creatinine m easurement (mass/volume)on 05-16-2022 Creatinine [Mass/Vol] 1.07 mg/dL 0.55-1.02 [facility] Work Phone: Comment on above: The validity of the calculated GFR & GFRAA in patients over 70 years has not been determined. Clinical correlation is essential. Serum or plasma urea nitroge n measurement (mass/volume)on 05-16-2022 Urea nitrogen [Mass/Vol] 24 mg/dL 7-18 [facility] Work Phone: [phone] Thin prep Papanicolaou smear with manual screeningon 05-16-2022 Thin prep Papanicolaou smear with manual screening 11 01-13 [facility] Work Phone: Laboratory - Chemistry and C hemistry - challengeon 02-12-2022 Amylase [Catalytic activity/Vol] 206 U/L [facility] Work Phone: Serum mitochondria antibody detectionon 02-12-2022 Mitochondria Ab Ql (S) <20.0 Units 0.0-20.0 [facility] Work Phone: Comment on above: Negative 0.0 - 20.0 Equivocal 20.1 - 24.9 Positive >24.9Mitochondrial (M2) Antibodies are found in 90-96% ofpatients with primary biliary cirrhosis.Performed at: [facility] [place], [place] [id number] Director: Barrington Iraheta PhD, Phone: [phone] Serum or plasma actin IgG an tibody assay (units/volume)on 02-12-2022 Actin IgG Qn 4 Units 0-19 [facility] Work Phone: Comment on above: Negative 0 - 19 Weak positive 20 - 30 Moderate to strong positive >30 Actin Antibodies are found in 52-85% of patients with autoimmune hepatitis or chronic active hepatitis and in 22% of patients with primary biliary cirrhosis.Performed at: [facility] [place], [place] [id number] Director: Barrington Iraheta PhD, Phone: [phone] Absolute lymphocyte counton 01-30-2022 Lymphocytes Auto (Unsp spec) [#/Vol] 0.58 10*3/uL 0.83-4.51 [facility] Work Phone: Atypical perinuclear antineu trophil cytoplasmic antibodies measurementon 01-30-2022 Neutrophil cytoplasmic Ab.perinuclear.atypica l IF (S) [Titer] <1:20 titer Neg:<1:20 [facility] Work Phone: Comment on above: The atypical pANCA p attern has been observed in asignificant percentage of patients with ulcerative colitis,primary sclerosing cholangitis and autoimmune hepatitis. Basophil percentageon 2021 Ammonia (P) [Moles/Vol] 40.0 umol/L 11-32 [facility] Work Phone: Basophil percentage < 0.2 AI 0.0-0.9 [facility]: Basophils/100 WBC (Bld) 0.7 % 0-1 [facility] Work Phone: Bilirubin [Mass/Vol] 0.50 mg/dL 0.20-1.00 [facility] Work Phone: Comment on above: For patients on eltr ombopag therapy, use of Dimension [place] TBIL is not recommended. Chloride [Moles/Vol] 102 mmol/L 98-107 [facility] Work Phone: Eosinophils/100 WBC (Bld) 2.3 % 0-5 [facility] Work Phone: Glucose [Mass/Vol] 115 mg/dL 74-106 [facility] Work Phone: Comment on above: Fasting Glucose resu lt from 100 to 125 mg/dL suggests IMPAIRED HOMEOSTASIS per A.D.A. criteria. Neutrophils (Bld) [#/Vol] 6.5 10*3/uL 2.0-7.7 [facility] Work Phone: Neutrophils/100 WBC (Bld) 79.2 % 47-70 [facility] Work Phone: Potassium [Moles/Vol] 4.0 mmol/L 3.5-5.1 [facility] Work Phone: Protein [Mass/Vol] 8.3 g/dL 6.4-8.2 [facility] Work Phone: [phone] Sodium [Moles/Vol] 136 mmol/L 136-145 [facility] Work Phone: [phone] WBC (Bld) [#/Vol] 8.2 10*3/uL 4.4-11.0 [facility] Work Phone: [phone] Blood erythrocytes count (nu mber/volume)on 01-30-2022 RBC (Bld) [#/Vol] 4.00 10*6/uL 4.2-5.4 [facility] Work Phone: Blood hemoglobin measurement (mass/volume)on 06-01-2022 Hemoglobin (Bld) [Mass/Vol] 13.2 g/dL 12.0-15.0 [facility] Work Phone: Blood lymphocytes/100 leukoc yteson 01-30-2022 Lymphocytes/100 WBC (Bld) 7.1 % 19-41 [facility] Work Phone: Blood monocytes/100 leukocyt eson 01-30-2022 Monocytes/100 WBC (Bld) 9.2 % 0-10 [facility] Work Phone: Blood platelet mean volumeon 01-30-2022 Platelet mean volume (Bld) [Entitic vol] 9.7 fL 6.2-12.0 [facility] Work Phone: Determination of erythrocyte mean corpuscular volume (MCV)on 01-30-2022 MCV (RBC) [Entitic vol] 101.5 fL 81-99 [facility] Work Phone: Erythrocyte sedimentation ra bharti 01-30-2022 ESR (Bld) [Velocity] 32 mm/h 0-30 [facility] Work Phone: HIV 1 and HIV-2 antibody ass ay with HIV-1 p24 antigen detectionon 01-30-2022 HIV 1+2 Ab+HIV1 p24 Ag IA Ql Non-Reactive Nonreactive [facility] Work Phone: Hematocrit Auto (Bld) [Volum e fraction]on 01-30-2022 Hematocrit (Bld) [Volume fraction] 40.6 % 37-47 [facility] Work Phone: [phone] INR in Blood by Coagulation assayon 01-30-2022 INR Coag (Bld) [Relative time] 1.1 {INR} [facility] Work Phone: Laboratory - Chemistry and C hemistry - challengeon 01-30-2022 Natriuretic peptide B (Bld) [Mass/Vol] 57.2 pg/mL 0-100 [facility] Work Phone: ALP [Catalytic activity/Vol] 140 U/L 45-117 [facility] Work Phone: ALT [Catalytic activity/Vol] 29 U/L 13-56 [facility] Work Phone: [phone] CO2 [Moles/Vol] 25.0 mmol/L 21.0-32.0 [facility] Work Phone: [phone] Globulin (S) [Mass/Vol] 4.6 g/dL 2.2-4.2 [facility] Work Phone: [phone] Urea nitrogen/Creatinine [Mass ratio] 17.7 mg/mg 10-20 [facility] Work Phone: [phone] Laboratory - Coagulationon 0 01-30-2022 PT Coag (PPP) [Time] 14.2 s 11.7-14.9 [facility] Work Phone: [phone] Laboratory - Hematology and Cell countson 01-30-2022 Erythrocyte distribution width (RBC) [Entitic vol] 45.5 fL 35.1-43.9 [facility] Work Phone: [phone] Erythrocyte distribution width (RBC) [Ratio] 11.9 % 11.6-14.6 [facility] Work Phone: [phone] Immature granulocytes/100 WBC (Bld) 1.500 % 0.0-0.9 [facility] Work Phone: [phone] Comment on above: IG% - Immature Granu locytes (promyelocytes, myelocytes and metamyelocytes) > 1% indicates that a LEFT SHIFT is Present. MCH (RBC) [Entitic mass] 33.0 pg 27.0-32.0 [facility] Work Phone: [phone] Nucleated RBC/100 WBC (Bld) [Ratio] 0 % 0-5 [facility] Work Phone: [phone] MCHC Auto (RBC) [Mass/Vol]on 01-30-2022 MCHC (RBC) [Mass/Vol] 32.5 g/dL 32-36 [facility] Work Phone: [phone] Panel Informationon 01-30 Centromere B Antibody <0.2 AI 0.0-0.9 [facility] Work Phone: [phone] Ceruloplasmin 38.3 mg/dL 19.0-39.0 [facility] Work Phone: [phone] Estimated GFR (MDRD) Amer 58 mL/min >60 [facility] Work Phone: [phone] Comment on above: GFR Calc Estimated GFR (MDRD) Non-Af Amer 48 mL/min >60 [facility] Work Phone: [phone] Comment on above: Non- GFR Calc Haptoglobin 330 mg/dL 33-346 [facility] Work Phone: [phone] Comment on above: Performed at: [facility] [address] [id number] Director: Barrington Iraheta PhD, Phone: [phone] at: [facility] [id number] Director: Angeles Garsia MD, Phone: [phone] Hepatitis A IgM Antibody Negative Negative [facility] Work Phone: [phone] Hepatitis B Core IgM Antibody Negative Negative [facility] Work Phone: [phone] Hepatitis C Antibody (EIA) <0.1 s/co ratio 0.0-0.9 [facility] Work Phone: [phone] Hepatitis C Antibody Comment Comment . [facility] Work Phone: [phone] Comment on above: NegativeNot infected with HCV, unless recent infection issuspected or other evidence exists to indicate HCVinfection. HEMATOLOGY SUPERVISOR Antibody <0.2 AI 0.0-0.9 [facility] Work Phone: [phone] Platelets bldon 01-30-2022 Platelets (Bld) [#/Vol] 219 10*3/uL 150-450 [facility] Work Phone: [phone] Serum DNA double strand anti body assay (units/volume)on 01-30-2022 DNA double strand Ab Qn (S) 33 [IU]/mL 0-9 [facility] Work Phone: [phone] Comment on above: Negative <5 Equivoca l 5 - 9 Positive >9 Serum Crystal-1 antibody assay (u nits/volume)on 01-30-2022 Crystal-1 extractable nuclear Ab Qn (S) <0.2 AI 0.0-0.9 [facility] Work Phone: Serum Scl-70 extractable nuc lear antibody assay (units/volume)on 01-30-2022 SCL-70 extractable nuclear Ab Qn (S) <0.2 AI 0.0-0.9 [facility] Work Phone: Serum Lamb extractable nucl ear antibody detectionon 01-30-2022 Lamb extractable nuclear Ab Ql (S) <0.2 AI 0.0-0.9 [facility] Work Phone: Serum classic neutrophil cyt oplasmic antibody assay (units/volume)on 01-30-2022 Neutrophil cytoplasmic Ab.classic Qn (S) <1:20 titer Neg:<1:20 [facility] Work Phone: Serum mitochondria antibody detectionon 01-30-2022 Mitochondria Ab Ql (S) <20.0 Units 0.0-20.0 [facility] Work Phone: Comment on above: Negative 0.0 - 20.0 Equivocal 20.1 - 24.9 Positive >24.9Mitochondrial (M2) Antibodies are found in 90-96% ofpatients with primary biliary cirrhosis.Performed at: [address] [id number] Director: Barrington Iraheta PhD, Phone: [phone] Serum or plasma C reactive p rotein measurement (mass/volume)on 01-30-2022 CRP [Mass/Vol] 44.70 mg/L 0.0-3.0 [facility] Work Phone: Comment on above: C-Reactive Protein ( CRP) provides useful information for thediagnosis, therapy and monitoring of inflammatory processesand associated diseases. For the evaluation of Relative Riskfor Cardiovascular Disease, a High Sensitivity CRP (HSCRP)should be ordered. Serum or plasma actin IgG an tibody assay (units/volume)on 01-30-2022 Actin IgG Qn 4 Units 0-19 [facility] Work Phone: Comment on above: Negative 0 - 19 Weak positive 20 - 30 Moderate to strong positive >30 Actin Antibodies are found in 52-85% of patients with autoimmune hepatitis or chronic active hepatitis and in 22% of patients with primary biliary cirrhosis. Serum or plasma albumin otoniel urement (mass/volume)on 01-30-2022 Albumin [Mass/Vol] 3.7 g/dL 3.2-5.0 [facility] Work Phone: Serum or plasma albumin/glob ulin mass ratioon 01-30-2022 Albumin/Globulin [Mass ratio] 0.8 {ratio} 0.9-2.4 [facility] Work Phone: [phone] Serum or plasma xynug-1-osmd protein tumor marker measurement (units/volume)on 01-30-2022 AFP.tumor marker Qn 3.8 ng/mL 0.0-9.2 [facility] Work Phone: Comment on above: [employer] El ectrochemiluminescence Immunoassay(ECLIA)Values obtained with different assay methods or kits cannotbe used interchangeably. Results cannot be interpreted asabsolute evidence of the presence or absence of malignantdisease.This test is not interpretable in females. Serum or plasma angiotensin converting enzyme measurement (enzymatic activity/volume)on 01-30-2022 Angiotensin converting enzyme [Catalytic activity/Vol] 43 U/L 14-82 [facility] Work Phone: [phone] Serum or plasma calcium otoniel urement (mass/volume)on 01-30-2022 Calcium [Mass/Vol] 9.5 mg/dL 8.5-10.1 [facility] Work Phone: [phone] Serum or plasma creatinine m easurement (mass/volume)on 01-30-2022 Creatinine [Mass/Vol] 1.24 mg/dL 0.55-1.02 [facility] Work Phone: Comment on above: The validity of the calculated GFR & GFRAA in patients over 70 years has not been determined. Clinical correlation is essential. Serum or plasma ferritin lei surement (mass/volume)on 01-30-2022 Ferritin [Mass/Vol] 58 ng/mL 8-252 [facility] Work Phone: [phone] Serum or plasma hepatitis B virus surface antigen detection by immunoassayon 01-30-2022 HBV surface Ag IA Ql Negative Negative [facility] Work Phone: [phone] Serum or plasma urea nitroge n measurement (mass/volume)on 01-30-2022 Urea nitrogen [Mass/Vol] 22 mg/dL 7-18 [facility] Work Phone: Serum perinuclear neutrophil cytoplasmic antibody titer by immunofluorescenceon 01-30-2022 Neutrophil cytoplasmic Ab.perinuclear IF (S) [Titer] <1:20 titer Neg:<1:20 [facility] Work Phone: Comment on above: The presence of posi tive fluorescence exhibiting P-ANCA orC-ANCA patterns alone is not specific for the diagnosis ofWegener's Granulomatosis (WG) or microscopic polyangiitis.Decisions about treatment should not be based solely onANCA IFA results. The [employer] ANCA [employer] Consensusrecommends follow up testing of positive sera with both NM-3 and MPO-ANCA enzyme immunoassays. As many as 5% serumsamples are positive only by EIA. Ref. AM J Clin [id number];111:507-513. Thin prep Papanicolaou smear with manual screeningon 01-30-2022 Thin prep Papanicolaou smear with manual screening 21 U/L 15-37 [facility] Work Phone: [phone] Thin prep Papanicolaou smear with manual screening 9 5-15 [facility] Work Phone: [phone] Thin prep Papanicolaou smear with manual screening 176 U/L 84-246 [facility] Work Phone: [phone] Thin prep Papanicolaou smear with manual screening 182 ug/dL 80-158 [facility] Work Phone: [phone] Comment on above: Detection Limit = 5 Whole blood hemoglobin A1c/t otal hemoglobin ratio (mass fraction)on 01-30-2022 HbA1c (Bld) [Mass fraction] 5.4 % 3.8-5.6 [facility] Work Phone: Comment on above: Normal < 5.7 % Predi abetic 5.7 - 6.4 % Diabetic >or= 6.5 % Please note range changes. Basophil percentageon 2021 Bilirubin [Mass/Vol] 0.60 mg/dL 0.20-1.00 [facility] Work Phone: Comment on above: For patients on eltr ombopag therapy, use of [place]ension [place] TBIL is not recommended. Chloride [Moles/Vol] 106 mmol/L 98-107 [facility] Work Phone: Glucose [Mass/Vol] 118 mg/dL 74-106 [facility] Work Phone: Comment on above: Fasting Glucose resu lt from 100 to 125 mg/dL suggests IMPAIRED HOMEOSTASIS per A.D.A. criteria. Potassium [Moles/Vol] 4.2 mmol/L 3.5-5.1 [facility] Work Phone: [phone] Protein [Mass/Vol] 6.9 g/dL 6.4-8.2 [facility] Work Phone: [phone] Sodium [Moles/Vol] 136 mmol/L 136-145 [facility] Work Phone: Laboratory - Chemistry and C hemistry - challengeon 01-22-2022 ALP [Catalytic activity/Vol] 91 U/L 45-117 [facility] Work Phone: ALT [Catalytic activity/Vol] 25 U/L 13-56 [facility] Work Phone: [phone] CO2 [Moles/Vol] 23.0 mmol/L 21.0-32.0 [facility] Work Phone: Globulin (S) [Mass/Vol] 3.7 g/dL 2.2-4.2 [facility] Work Phone: Urea nitrogen/Creatinine [Mass ratio] 18.9 mg/mg 10-20 [facility] Work Phone: No Panel Informationon 01-22 Estimated Creatinine Clearance Calc 47.93 ml/min [facility] Work Phone: Estimated GFR (MDRD) Amer 54 mL/min >60 [facility] Work Phone: Comment on above: GFR Calc Estimated GFR (MDRD) Non-Af Amer 45 mL/min >60 [facility] Work Phone: Comment on above: Non- GFR Calc Serum or plasma albumin otoniel urement (mass/volume)on 01-22-2022 Albumin [Mass/Vol] 3.2 g/dL 3.2-5.0 [facility] Work Phone: [phone] Serum or plasma albumin/glob ulin mass ratioon 01-22-2022 Albumin/Globulin [Mass ratio] 0.9 {ratio} 0.9-2.4 [facility] Work Phone: Serum or plasma calcium otoniel urement (mass/volume)on 01-22-2022 Calcium [Mass/Vol] 8.4 mg/dL 8.5-10.1 [facility] Work Phone: Serum or plasma creatinine m easurement (mass/volume)on 01-22-2022 Creatinine [Mass/Vol] 1.32 mg/dL 0.55-1.02 [facility] Work Phone: Comment on above: The validity of the calculated GFR & GFRAA in patients over 70 years has not been determined. Clinical correlation is essential. Serum or plasma urea nitroge n measurement (mass/volume)on 01-22-2022 Urea nitrogen [Mass/Vol] 25 mg/dL 7-18 [facility] Work Phone: [phone] Thin prep Papanicolaou smear with manual screeningon 01-22-2022 Thin prep Papanicolaou smear with manual screening 17 U/L 15-37 [facility] Work Phone: [phone] Thin prep Papanicolaou smear with manual screening 7 5-15 [facility] Work Phone: [phone] Absolute lymphocyte counton 01-20-2022 Lymphocytes Auto (Unsp spec) [#/Vol] 0.60 10*3/uL 0.83-4.51 [facility] Work Phone: [phone] Basophil percentageon 2021 Basophils/100 WBC (Bld) 0.8 % 0-1 [facility] Work Phone: Bilirubin [Mass/Vol] 0.70 mg/dL 0.20-1.00 [facility] Work Phone: Comment on above: For patients on eltr ombopag therapy, use of [place] TBIL is not recommended. Chloride [Moles/Vol] 109 mmol/L 98-107 [facility] Work Phone: Eosinophils/100 WBC (Bld) 3.0 % 0-5 [facility] Work Phone: Glucose [Mass/Vol] 112 mg/dL 74-106 [facility] Work Phone: Comment on above: Fasting Glucose resu lt from 100 to 125 mg/dL suggests IMPAIRED HOMEOSTASIS per A.D.A. criteria. Neutrophils (Bld) [#/Vol] 5.8 10*3/uL 2.0-7.7 [facility] Work Phone: Neutrophils/100 WBC (Bld) 79.1 % 47-70 [facility] Work Phone: Potassium [Moles/Vol] 4.8 mmol/L 3.5-5.1 [facility] Work Phone: Protein [Mass/Vol] 7.5 g/dL 6.4-8.2 [facility] Work Phone: Sodium [Moles/Vol] 137 mmol/L 136-145 [facility] Work Phone: WBC (Bld) [#/Vol] 7.4 10*3/uL 4.4-11.0 [facility] Work Phone: Blood erythrocytes count (nu mber/volume)on 01-20-2022 RBC (Bld) [#/Vol] 3.64 10*6/uL 4.2-5.4 [facility] Work Phone: Blood hemoglobin measurement (mass/volume)on 01-20-2022 Hemoglobin (Bld) [Mass/Vol] 12.1 g/dL 12.0-15.0 [facility] Work Phone: Blood lymphocytes/100 leukoc yteson 01-20-2022 Lymphocytes/100 WBC (Bld) 8.1 % 19-41 [facility] Work Phone: Blood manual differential co mment interpretation (narrative result)on 01-20-2022 Manual differential comment Duglas (Bld) [Interp] See comment [facility] Work Phone: Comment on above: LYMPHOPENIA NOTED Blood monocytes/100 leukocyt eson 01-20-2022 Monocytes/100 WBC (Bld) 7.9 % 0-10 [facility] Work Phone: Blood platelet mean volumeon 01-20-2022 Platelet mean volume (Bld) [Entitic vol] 9.3 fL 6.2-12.0 [facility] Work Phone: Determination of erythrocyte mean corpuscular volume (MCV)on 01-20-2022 MCV (RBC) [Entitic vol] 100.8 fL 81-99 [facility] Work Phone: Direct bilirubinon Bilirubin.direct [Mass/Vol] 0.21 mg/dL 0.00-0.30 [facility] Work Phone: Hematocrit Auto (Bld) [Volum e fraction]on 01-20-2022 Hematocrit (Bld) [Volume fraction] 36.7 % 37-47 [facility] Work Phone: INR in Blood by Coagulation assayon 01-20-2022 INR Coag (Bld) [Relative time] 1.1 {INR} [facility] Work Phone: [phone] Laboratory - Chemistry and C hemistry - challengeon 01-20-2022 ALP [Catalytic activity/Vol] 102 U/L 45-117 [facility] Work Phone: ALT [Catalytic activity/Vol] 30 U/L 13-56 [facility] Work Phone: CO2 [Moles/Vol] 22.0 mmol/L 21.0-32.0 [facility] Work Phone: [phone] Globulin (S) [Mass/Vol] 4.0 g/dL 2.2-4.2 [facility] Work Phone: [phone] Lipase [Catalytic activity/Vol] 108 U/L 73-393 [facility] Work Phone: [phone] Urea nitrogen/Creatinine [Mass ratio] 18.9 mg/mg 10-20 [facility] Work Phone: [phone] Laboratory - Coagulationon 0 01-20-2022 PT Coag (PPP) [Time] 14.2 s 11.7-14.9 [facility] Work Phone: [phone] Laboratory - Hematology and Cell countson 01-20-2022 Erythrocyte distribution width (RBC) [Entitic vol] 47.0 fL 35.1-43.9 [facility] Work Phone: [phone] Erythrocyte distribution width (RBC) [Ratio] 12.6 % 11.6-14.6 [facility] Work Phone: [phone] Immature granulocytes/100 WBC (Bld) 1.100 % 0.0-0.9 [facility] Work Phone: [phone] Comment on above: IG% - Immature Granu locytes (promyelocytes, myelocytes and metamyelocytes) > 1% indicates that a LEFT SHIFT is Present. MCH (RBC) [Entitic mass] 33.2 pg 27.0-32.0 [facility] Work Phone: [phone] Nucleated RBC/100 WBC (Bld) [Ratio] 0 % 0-5 [facility] Work Phone: [phone] MCHC Auto (RBC) [Mass/Vol]on 01-20-2022 MCHC (RBC) [Mass/Vol] 33.0 g/dL 32-36 [facility] Work Phone: [phone] Panel Informationon 01-20 Ethyl Alcohol Level < 3.0 mg/dL [facility] Work Phone: [phone] Comment on above: The serum:whole bloo d ethanol ratio is approximately 1.14and varies slightly with hematocrit. Medical Alcohol reference interval and critical value innon-tolerant individuals; 50 - 100 Impairment 100 Intoxication 100 - 250 Severe Poisoning 250 - 400 Deep/possible fatal coma Estimated Creatinine Clearance Calc 38.31 ml/min [facility] Work Phone: Estimated GFR (MDRD) Amer 44 mL/min >60 [facility] Work Phone: Comment on above: GFR Calc Estimated GFR (MDRD) Non-Af Amer 36 mL/min >60 [facility] Work Phone: Comment on above: Non- GFR Calc Platelets bldon 01-20-2022 Platelets (Bld) [#/Vol] 156 10*3/uL 150-450 [facility] Work Phone: Serum or plasma albumin otoniel urement (mass/volume)on 01-20-2022 Albumin [Mass/Vol] 3.5 g/dL 3.2-5.0 [facility] Work Phone: [phone] Serum or plasma calcium otoniel urement (mass/volume)on 01-20-2022 Calcium [Mass/Vol] 8.9 mg/dL 8.5-10.1 [facility] Work Phone: Serum or plasma creatinine m easurement (mass/volume)on 01-20-2022 Creatinine [Mass/Vol] 1.59 mg/dL 0.55-1.02 [facility] Work Phone: Comment on above: The validity of the calculated GFR & GFRAA in patients over 70 years has not been determined. Clinical correlation is essential. Serum or plasma urea nitroge n measurement (mass/volume)on 01-20-2022 Urea nitrogen [Mass/Vol] 30 mg/dL 7-18 [facility] Work Phone: [phone] Thin prep Papanicolaou smear with manual screeningon 01-20-2022 Thin prep Papanicolaou smear with manual screening 23 U/L 15-37 [facility] Work Phone: [phone] Thin prep Papanicolaou smear with manual screening 6 5-15 [facility] Work Phone: Basophil percentageon 2021 Chloride [Moles/Vol] 106 mmol/L 98-107 [facility] Work Phone: Glucose [Mass/Vol] 109 mg/dL 74-106 [facility] Work Phone: Comment on above: Fasting Glucose resu lt from 100 to 125 mg/dL suggests IMPAIRED HOMEOSTASIS per A.D.A. criteria. Potassium [Moles/Vol] 4.5 mmol/L 3.5-5.1 [facility] Work Phone: Comment on above: Moderate Hemolysis, Result may be falsely increased. Sodium [Moles/Vol] 134 mmol/L 136-145 [facility] Work Phone: Laboratory - Chemistry and C hemistry - challengeon 10-11-2021 CO2 [Moles/Vol] 18.0 mmol/L 21.0-32.0 [facility] Work Phone: Urea nitrogen/Creatinine [Mass ratio] 23.1 mg/mg 10-20 [facility] Work Phone: [phone] Panel Informationon 10-11 D-Dimer Quantitative (PE/DVT) 0.29 FEU/ug/m 0.27-0.49 [facility] Work Phone: Comment on above: NORMAL D-Dimer level (<0.50) indicates no DVT or PE. Estimated GFR (MDRD) Amer 45 mL/min >60 [facility] Work Phone: Comment on above: GFR Calc Estimated GFR (MDRD) Non-Af Amer 37 mL/min >60 [facility] Work Phone: Comment on above: Non- GFR Calc Serum or plasma calcium otoniel urement (mass/volume)on 10-11-2021 Calcium [Mass/Vol] 8.9 mg/dL 8.5-10.1 [facility] Work Phone: [phone] Serum or plasma creatinine m easurement (mass/volume)on 10-11-2021 Creatinine [Mass/Vol] 1.56 mg/dL 0.55-1.02 [facility] Work Phone: Comment on above: The validity of the calculated GFR & GFRAA in patients over 70 years has not been determined. Clinical correlation is essential. Serum or plasma urea nitroge n measurement (mass/volume)on 10-11-2021 Urea nitrogen [Mass/Vol] 36 mg/dL 7-18 [facility] Work Phone: Thin prep Papanicolaou smear with manual screeningon 10-11-2021 Thin prep Papanicolaou smear with manual screening 10 5-15 [facility] Work Phone: Absolute lymphocyte counton 10-10-2021 Lymphocytes Auto (Unsp spec) [#/Vol] 0.60 10*3/uL 0.83-4.51 [facility] Work Phone: Basophil percentageon 2021 Basophils/100 WBC (Bld) 0.7 % 0-1 [facility] Work Phone: Chloride [Moles/Vol] 105 mmol/L 98-107 [facility] Work Phone: Eosinophils/100 WBC (Bld) 2.2 % 0-5 [facility] Work Phone: Glucose [Mass/Vol] 99 mg/dL 74-106 [facility] Work Phone: Neutrophils (Bld) [#/Vol] 6.8 10*3/uL 2.0-7.7 [facility] Work Phone: Neutrophils/100 WBC (Bld) 81.9 % 47-70 [facility] Work Phone: Potassium [Moles/Vol] 5.0 mmol/L 3.5-5.1 [facility] Work Phone: Comment on above: Moderate Hemolysis, Result may be falsely increased. Sodium [Moles/Vol] 135 mmol/L 136-145 [facility] Work Phone: WBC (Bld) [#/Vol] 8.3 10*3/uL 4.4-11.0 [facility] Work Phone: Blood erythrocytes count (nu mber/volume)on 10-10-2021 RBC (Bld) [#/Vol] 3.97 10*6/uL 4.2-5.4 [facility] Work Phone: Blood hemoglobin measurement (mass/volume)on 10-10-2021 Hemoglobin (Bld) [Mass/Vol] 13.6 g/dL 12.0-15.0 [facility] Work Phone: [phone] Blood lymphocytes/100 leukoc yteson 10-10-2021 Lymphocytes/100 WBC (Bld) 7.3 % 19-41 [facility] Work Phone: Blood manual differential co mment interpretation (narrative result)on 10-10-2021 Manual differential comment Duglas (Bld) [Interp] SCANNED [facility] Work Phone: Comment on above: LYMPHOPENIA NOTED Blood monocytes/100 leukocyt eson 10-10-2021 Monocytes/100 WBC (Bld) 7.1 % 0-10 [facility] Work Phone: Blood platelet mean volumeon 10-10-2021 Platelet mean volume (Bld) [Entitic vol] 9.0 fL 6.2-12.0 [facility] Work Phone: Determination of erythrocyte mean corpuscular volume (MCV)on 10-10-2021 MCV (RBC) [Entitic vol] 99.0 fL 81-99 [facility] Work Phone: [phone] Hematocrit Auto (Bld) [Volum e fraction]on 10-10-2021 Hematocrit (Bld) [Volume fraction] 39.3 % 37-47 [facility] Work Phone: [phone] Laboratory - Chemistry and C hemistry - challengeon 10-10-2021 CO2 [Moles/Vol] 22.0 mmol/L 21.0-32.0 [facility] Work Phone: [phone] Urea nitrogen/Creatinine [Mass ratio] 17.8 mg/mg 10-20 [facility] Work Phone: [phone] Laboratory - Hematology and Cell countson 10-10-2021 Erythrocyte distribution width (RBC) [Entitic vol] 43.6 fL 35.1-43.9 [facility] Work Phone: [phone] Erythrocyte distribution width (RBC) [Ratio] 11.9 % 11.6-14.6 [facility] Work Phone: [phone] Immature granulocytes/100 WBC (Bld) 0.800 % 0.0-0.9 [facility] Work Phone: [phone] Comment on above: IG% - Immature Granu locytes (promyelocytes, myelocytes and metamyelocytes) > 1% indicates that a LEFT SHIFT is Present. MCH (RBC) [Entitic mass] 34.3 pg 27.0-32.0 [facility] Work Phone: [phone] Nucleated RBC/100 WBC (Bld) [Ratio] 0 % 0-5 [facility] Work Phone: [phone] MCHC Auto (RBC) [Mass/Vol]on 10-10-2021 MCHC (RBC) [Mass/Vol] 34.6 g/dL 32-36 [facility] Work Phone: No Panel Informationon 10-10 Estimated Creatinine Clearance Calc 30.50 ml/min [facility] Work Phone: [phone] Estimated GFR (MDRD) Amer 33 mL/min >60 [facility] Work Phone: [phone] Comment on above: GFR Calc Estimated GFR (MDRD) Non-Af Amer 27 mL/min >60 [facility] Work Phone: [phone] Comment on above: Non- GFR Calc Troponin I High Sensitivity 14 pg/mL 3.0-54.0 [facility] Work Phone: [phone] Comment on above: Please Note: New Rush t Units and Gender Specific Reference Ranges. For more information see Policy Stat Procedure [place] High Sensitivity Troponin (TNIH) and attachments. Platelets bldon 10-10-2021 Platelets (Bld) [#/Vol] 140 10*3/uL 150-450 [facility] Work Phone: [phone] Serum or plasma calcium otoniel urement (mass/volume)on 10-10-2021 Calcium [Mass/Vol] 9.0 mg/dL 8.5-10.1 [facility] Work Phone: Serum or plasma creatinine m easurement (mass/volume)on 10-10-2021 Creatinine [Mass/Vol] 2.02 mg/dL 0.55-1.02 [facility] Work Phone: Comment on above: The validity of the calculated GFR & GFRAA in patients over 70 years has not been determined. Clinical correlation is essential. Serum or plasma urea nitroge n measurement (mass/volume)on 10-10-2021 Urea nitrogen [Mass/Vol] 36 mg/dL 7-18 [facility] Work Phone: Thin prep Papanicolaou smear with manual screeningon 10-10-2021 Thin prep Papanicolaou smear with manual screening 8 5-15 [facility] Work Phone: XR Hand - right PA and Later al and Obliqueon 09-26-2021 IMPRESSION: Acute fifth metacarpal neck fracture Bias Cutter Helper: DORON Transcribe Date/Time: Sep 26 2021 4:35P Dictated by : NADEGE GIL MD This examination was interpreted and the report reviewed and electronically signed by: NADEGE GIL MD on Sep 26 2021 4:36PM [facility] DIVISION OF RADIOLOGY * * *Final Report* * * DATE OF EXAM: Sep 26 2021 4:25PM WOX 5346 - XR HAND 3V PA/LAT/OBL RT / PROCEDURE REASON: Hand injury, right, initial encounter * * * * Physician Interpretation * * * * CLINICAL INDICATION: Injury TECHNIQUE: 3 view radiographic study of the right hand COMPARISON: None FINDINGS: There is an acute, mildly impacted fracture of the fifth metacarpal neck with dorsal apex angulation. Surrounding soft tissue swelling. No additional acute osseous injury. Mild to moderate first carpal metacarpal joint degenerative changes with joint space narrowing, subchondral sclerosis and hypertrophic change. DIVISION OF RADIOLOGY Provider, [facility] - 09/26/2021 * * *Final Report* * * DATE OF EXAM: Sep 26 2021 4:25PM WOX 5346 - XR HAND 3V PA/LAT/OBL RT / PROCEDURE REASON: Hand injury, right, initial encounter * * * * Physician Interpretation * * * * CLINICAL INDICATION: Injury TECHNIQUE: 3 view radiographic study of the right hand COMPARISON: None FINDINGS: There is an acute, mildly impacted fracture of the fifth metacarpal neck with dorsal apex angulation. Surrounding soft tissue swelling. No additional acute osseous injury. Mild to moderate first carpal metacarpal joint degenerative changes with joint space narrowing, subchondral sclerosis and hypertrophic change. IMPRESSION IMPRESSION: Acute fifth metacarpal neck fracture Bias Cutter Helper: DORON Transcribe Date/Time: Sep 26 2021 4:35P Dictated by : NADEGE GIL MD This examination was interpreted and the report reviewed and electronically signed by: NADEGE GIL MD on Sep 26 2021 4:36PM EST [facility] Radiology Study observation (narrative) [facility] XR Hand - right PA and Later al and ObliqueOrdered By: Ccf Provider on 09-26-2021 [facility] Basophil percentageon 2021 Bilirubin [Mass/Vol] 0.70 mg/dL 0.20-1.00 [facility] Work Phone: Comment on above: For patients on eltr ombopag therapy, use of Dimension [place] TBIL is not recommended. Chloride [Moles/Vol] 106 mmol/L 98-107 [facility] Work Phone: Cholesterol [Mass/Vol] 239 mg/dL <200 [facility] Work Phone: Comment on above: <200 mg/dL Desirable 200-240 mg/dL Borderline >240 mg/dL High Risk Glucose [Mass/Vol] 106 mg/dL 74-106 [facility] Work Phone: Comment on above: Fasting Glucose resu lt from 100 to 125 mg/dL suggests IMPAIRED HOMEOSTASIS per A.D.A. criteria.Please note revised GLUCOSE reference range effective 2017. Potassium [Moles/Vol] 4.0 mmol/L 3.5-5.1 [facility] Work Phone: Protein [Mass/Vol] 7.5 g/dL 6.4-8.2 [facility] Work Phone: [phone] Sodium [Moles/Vol] 138 mmol/L 136-145 [facility] Work Phone: [phone] Triglyceride [Mass/Vol] 341 mg/dL [facility] Work Phone: [phone] Comment on above: The drugs N-Acetylcy steine and Metamizole may falsely depress this assay.Serum Triglycerides Reference Interval Normal <150 mg/dL Borderline high 150 - 199 mg/dL High 200 - 499 mg/dL Very High > or = 500 mg/dL Erythrocyte sedimentation ra bharti 09-03-2021 ESR (Bld) [Velocity] 25 mm/h 0-30 [facility] Work Phone: [phone] Laboratory - Chemistry and C hemistry - challengeon 09-03-2021 ALP [Catalytic activity/Vol] 96 U/L 45-117 [facility] Work Phone: [phone] ALT [Catalytic activity/Vol] 28 U/L 13-56 [facility] Work Phone: [phone] CO2 [Moles/Vol] 24.0 mmol/L 21.0-32.0 [facility] Work Phone: [phone] Globulin (S) [Mass/Vol] 4.0 g/dL 2.2-4.2 [facility] Work Phone: [phone] Urea nitrogen/Creatinine [Mass ratio] 20.2 mg/mg 10-20 [facility] Work Phone: [phone] No Panel Informationon 09-03 Anti-Nuclear Antibody Screen Positive Negative [facility] Work Phone: [phone] Comment on above: Performed at: [address] [id number] Director: Barrington Iraheta PhD, Phone: [phone] C-Reactive Protein High Sensitivity 4.24 mg/L [facility] Work Phone: [phone] Comment on above: Low Relative Risk of CVD <1.0 mg/L Average Relative Risk of CVD 1.0 - 3.0 mg/L High Relative Risk of CVD >3.0 mg/L Estimated GFR (MDRD) Amer 68 mL/min >60 [facility] Work Phone: Comment on above: GFR Calc Estimated GFR (MDRD) Non-Af Amer 56 mL/min >60 [facility] Work Phone: Comment on above: Non- GFR Calc Serum DNA double strand anti body assay (units/volume)on 09-03-2021 DNA double strand Ab Qn (S) 32 [IU]/mL [facility] Work Phone: Comment on above: Negative <5 Equivoca l 5 - 9 Positive >9 Serum or plasma albumin otoniel urement (mass/volume)on 09-03-2021 Albumin [Mass/Vol] 3.5 g/dL 3.2-5.0 [facility] Work Phone: Serum or plasma albumin/glob ulin mass ratioon 09-03-2021 Albumin/Globulin [Mass ratio] 0.9 {ratio} 0.9-2.4 [facility] Work Phone: Serum or plasma calcium otoniel urement (mass/volume)on 09-03-2021 Calcium [Mass/Vol] 9.0 mg/dL 8.5-10.1 [facility] Work Phone: Serum or plasma cholesterol in HDL measurement (mass/volume)on 09-03-2021 Cholesterol in HDL [Mass/Vol] 63 mg/dL [facility] Work Phone: Comment on above: The drugs N-Acetylcy steine and Metamizole may falsely depress this assay. Reference Range HDL <40 mg/dL Low HDL Cholesterol HDL >or= 60 mg/dL High HDL Cholesterol Serum or plasma cholesterol in VLDL measurement (mass/volume)on 09-03-2021 Cholesterol in VLDL [Mass/Vol] 68 mg/dL 5-40 [facility] Work Phone: [phone] Serum or plasma creatinine m easurement (mass/volume)on 09-03-2021 Creatinine [Mass/Vol] 1.09 mg/dL 0.55-1.02 [facility] Work Phone: Comment on above: The validity of the calculated GFR & GFRAA in patients over 70 years has not been determined. Clinical correlation is essential. Serum or plasma low density lipoprotein (LDL) cholesterol measurement (mass/volume)on 09-03-2021 Cholesterol in LDL [Mass/Vol] 108 mg/dL 0-130 [facility] Work Phone: Serum or plasma urea nitroge n measurement (mass/volume)on 09-03-2021 Urea nitrogen [Mass/Vol] 22 mg/dL 7-18 [facility] Work Phone: Serum rheumatoid factor dete ctionon 09-03-2021 Rheumatoid factor Ql (S) < 10.0 IU/mL <15 [facility] Work Phone: Thin prep Papanicolaou smear with manual screeningon 09-03-2021 Thin prep Papanicolaou smear with manual screening 18 U/L 15-37 [facility] Work Phone: Thin prep Papanicolaou smear with manual screening 8 5-15 [facility] Work Phone: XR Hand - left PA and Latera l and Obliqueon 02-23-2021 IMPRESSION: Possible small avulsion fragment at the ulnar aspect of third metacarpal head. Correlate with symptoms. Osteoarthritis. Bias Cutter Helper: DORON Transcribe Date/Time: Feb 23 2021 4:08P Dictated by : Chelsea SKY MD This examination was interpreted and the report reviewed and electronically signed by: Chelsea SKY MD on Feb 23 2021 4:14PM [facility] DIVISION OF RADIOLOGY * * *Final Report* * * DATE OF EXAM: Feb 23 2021 4:04PM WOX 5345 - XR HAND 3V PA/LAT/OBL LT / PROCEDURE REASON: Hand injury, left, initial encounter * * * * Physician Interpretation * * * * EXAM: XR HAND 3V PA/LAT/OBL LT HISTORY: Hand injury, left, initial encounter. Caught left middle finger in dog leash today. VIEWS: PA, oblique and lateral left hand. COMPARISON: No relevant comparison. FINDINGS: Possible small avulsion fragment at the ulnar aspect of third metacarpal head. Minimal spurring at second and third metacarpal heads with maintained joint spaces. Narrowed basilar thumb joint with osteophytes. Narrowed distal interphalangeal joint spaces with subtle osteophytes. DIVISION OF RADIOLOGY Provider, Geno Sundar man Malin - 02/23/2021 * * *Final Report* * * DATE OF EXAM: Feb 23 2021 4:04PM WOX 5345 - XR HAND 3V PA/LAT/OBL LT / PROCEDURE REASON: Hand injury, left, initial encounter * * * * Physician Interpretation * * * * EXAM: XR HAND 3V PA/LAT/OBL LT HISTORY: Hand injury, left, initial encounter. Caught left middle finger in dog leash today. VIEWS: PA, oblique and lateral left hand. COMPARISON: No relevant comparison. FINDINGS: Possible small avulsion fragment at the ulnar aspect of third metacarpal head. Minimal spurring at second and third metacarpal heads with maintained joint spaces. Narrowed basilar thumb joint with osteophytes. Narrowed distal interphalangeal joint spaces with subtle osteophytes. IMPRESSION IMPRESSION: Possible small avulsion fragment at the ulnar aspect of third metacarpal head. Correlate with symptoms. Osteoarthritis. Bias Cutter Helper: PSCB Transcribe Date/Time: Feb 23 2021 4:08P Dictated by : Chelsea SKY MD This examination was interpreted and the report reviewed and electronically signed by: Chelsea SKY MD on Feb 23 2021 4:14PM [facility] Radiology Study observation (narrative) [facility] XR Hand - left PA and Latera l and ObliqueOrdered By: Ccf Provider on 02-23-2021 [facility] Basic Metabolic Panelon 05-2 Calcium [Mass/Vol] 8.7 mg/dL Normal 8.4-10.4 [facility] Comment on above: Performed By: #### B MP3M, HEMDF, PHOS3, MG3 #### [facility] [address] [place] [address] Glucose [Mass/Vol] 107 mg/dL High 70-100 [facility] Comment on above: Performed By: #### B MP3M, HEMDF, PHOS3, MG3 #### [facility] [address] [place] [address] Anion gap [Moles/Vol] 11 mmol/L Normal 3-13 [facility] Comment on above: Performed By: #### B MP3M, HEMDF, PHOS3, MG3 #### [facility] [address] [place], [place] CO2 [Moles/Vol] 21 mmol/L Low 22-30 [facility] Comment on above: Performed By: #### B MP3M, HEMDF, PHOS3, MG3 #### [facility] [address] [place], [place] Creatinine [Mass/Vol] 1.46 mg/dL High 0.52-1.25 [facility] Comment on above: Performed By: #### B MP3M, HEMDF, PHOS3, MG3 #### [place] [address] [place], [place] GFR/1.73 sq M.predicted among blacks MDRD (S/P/Bld) [Vol rate/Area] 47.4 mL/min/{1.73_m2} Abnormal >60 [facility] Comment on above: Performed By: #### B MP3M, HEMDF, PHOS3, MG3 #### [place] [address] [address] [place], [place] GFR/1.73 sq M.predicted among non-blacks MDRD (S/P/Bld) [Vol rate/Area] 40.9 mL/min/{1.73_m2} Abnormal >60 [facility] Comment on above: Result Comment: KDIG O guidelines provide the following GFR categories: Stage GFR(ml/min/1.73 m2) Terms G1 >=90 Normal or high G2 60-89 Mildly decreased* G3a 45-59 Mildly to moderately decreased G3b 30-44 Moderately to severely decreased G4 15-29 Severely decreased G5 <15 Kidney failure *Relative to young adult level. In the absence of evidence of kidney damage, neither GFR category G1 nor G2 fulfill the criteria for CKD. The CKD-EPI equation is validated in individuals 18 years of age and older. Currently the best equation for estimating glomerular filtration rate (GFR) from serum creatinine in children is the [place]side [place] equation. It is less accurate in patients with extremes of muscle mass, restriction of dietary protein, ingestion of creatine, extra-renal metabolism of creatinine, or treatment with medications that affect renal tubular creatinine secretion. Performed By: #### B MP3M, HEMDF, PHOS3, MG3 #### [facility] [address] [place], [place] Urea nitrogen [Mass/Vol] 33 mg/dL High 7-20 [facility] Comment on above: Performed By: #### B MP3M, HEMDF, PHOS3, MG3 #### [facility] [address], [place] Chloride [Moles/Vol] 102 mmol/L Normal 98-107 [facility] Comment on above: Performed By: #### B MP3M, HEMDF, PHOS3, MG3 #### [place] [address] [address] [place], [place] Potassium [Moles/Vol] 5.0 mmol/L Normal 3.5-5.1 [facility] Comment on above: Performed By: #### B MP3M, HEMDF, PHOS3, MG3 #### [place] [address] [address] [place], [place] Sodium [Moles/Vol] 134 mmol/L Low 135-145 [facility] Comment on above: Performed By: #### B MP3M, HEMDF, PHOS3, MG3 #### [place] [address] [address] [place], [place] Basic Metabolic Panel w/ Ref nella to MGOrdered By: Liliana Martinez on 01-20-2021 Anion gap [Moles/Vol] 11 mmol/L 3 - 13 mmol/L [facility] Work Phone: Calcium [Mass/Vol] 8.7 mg/dL 8.4 - 10. 4 mg/dL [facility] Work Phone: Chloride [Moles/Vol] 102 mmol/L 98 - 10 7 mmol/L [facility] Work Phone: CO2 [Moles/Vol] 21 mmol/L Low 22 - 30 mmol/L [facility] Work Phone: Creatinine [Mass/Vol] 1.46 mg/dL High 0.52 - 1.25 mg/dL [facility] Work Phone: EGFR IF NonAfrican [place]yan 40.9 mL/min Abnormal >60 [facility] Work Phone: [phone] Comment on above: KDIGO guidelines pro vide the following GFR categories: Stage GFR(ml/min/1.73 m2) Terms G1 >=90 Normal or high G2 60-89 Mildly decreased* G3a 45-59 Mildly to moderately decreased G3b 30-44 Moderately to severely decreased G4 15-29 Severely decreased G5 <15 Kidney failure *Relative to young adult level. In the absence of evidence of kidney damage, neither GFR category G1 nor G2 fulfill the criteria for CKD. The CKD-EPI equation is validated in individuals 18 years of age and older. Currently the best equation for estimating glomerular filtration rate (GFR) from serum creatinine in children is the Bedside Corral equation. It is less accurate in patients with extremes of muscle mass, restriction of dietary protein, ingestion of creatine, extra-renal metabolism of creatinine, or treatment with medications that affect renal tubular creatinine secretion. GFR/1.73 sq M.predicted among blacks MDRD (S/P/Bld) [Vol rate/Area] 47.4 mL/min/{1.73_m2} Abnormal >60 [facility] Work Phone: [phone] Glucose [Mass/Vol] 107 mg/dL High 70 - 100 mg/dL [facility] Work Phone: [phone] Interpretation and review of laboratory results Abnormal [facility] Work Phone: [phone] Potassium [Moles/Vol] 5.0 mmol/L 3.5 - 5.1 mmol/L [facility] Work Phone: [phone] Sodium [Moles/Vol] 134 mmol/L Low 135 - 145 mmol/L [facility] Work Phone: [phone] Urea nitrogen (BldV) [Mass/Vol] 33 mg/dL High 7 - 20 mg/dL [facility] Work Phone: [phone] CBC auto differentialOrdered By: Liliana Martinez on 01-20-2021 Absolute Baso # 0.0 10*3/uL 0.0 - 0.2 10*3/uL [facility] Work Phone: [phone] Absolute Neut # 7.9 10*3/uL High 1.8 - 7.0 10*3/uL [facility] Work Phone: [phone] Basophils/100 WBC (Bld) 0.1 % 0.0 - 2.0 % [facility] Work Phone: Eosinophils (Bld) [#/Vol] 0.1 10*3/uL 0.0 - 0.5 10*3/uL [facility] Work Phone: Eosinophils/100 WBC (Bld) 1.3 % 1.0 - 6.0 % [facility] Work Phone: Granulocytes/100 WBC (Bld) 80.4 % High 40.0 - 80.0 % [facility] Work Phone: Hematocrit (Bld) [Volume fraction] 34.8 % Low 35.0 - 47.0 % [facility] Work Phone: Hemoglobin.gastrointes tinal spec 1 Ql (Stl) 11.1 g/dL Low 11.7 - 16.0 g/dL [facility] Work Phone: Interpretation and review of laboratory results Abnormal [facility] Work Phone: Lymphocytes (Bld) [#/Vol] 0.6 10*3/uL Low 1.0 - 4.3 10*3/uL [facility] Work Phone: Lymphocytes/100 WBC (Bld) 6.5 % Low 20.0 - 40.0 % [facility] Work Phone: MCH (RBC) [Entitic mass] 30.8 pg 26.0 - 34.0 pg [facility] Work Phone: MCHC (RBC) [Mass/Vol] 31.7 % Low 32.0 - 36.0 % [facility] Work Phone: MCV (RBC) [Entitic vol] 96.9 fL 79.0 - 98.0 fL [facility] Work Phone: Monocytes (Bld) [#/Vol] 1.1 10*3/uL High 0.0 - 0.8 10*3/uL [facility] Work Phone: Monocytes/100 WBC (Bld) 11.7 % High 2.0 - 10.0 % [facility] Work Phone: [phone] Platelet distribution width (Bld) [Ratio] 16.4 % High 11.5 - 14.5 % [facility] Work Phone: Platelet mean volume (Bld) [Entitic vol] 8.4 fL 7.4 - 10.4 fL [facility] Work Phone: 1 Platelets (Bld) [#/Vol] 143 10*3/uL 140 - 440 10*3/uL [facility] Work Phone: 1 RBC (Bld) [#/Vol] 3.59 10*6/uL Low 3.80 - 5.2 0 10*6/uL [facility] Work Phone: WBC (Bld) [#/Vol] 9.8 10*3/uL 3.6 - 10.7 10*3/uL [facility] Work Phone: 1 Test Performed by [facility], [address] [place] [id number] [facility] Work Phone: [facility] Work Phone: Hemogram w/ Autodiffon 01-20 Abs Baso Cnt 0.0 10*3/uL Normal 0.0-0.2 [facility] Comment on above: Performed By: #### B MP3M, HEMDF, PHOS3, MG3 #### [facility] [address] [place] [id number] Abs Neutrophile Cnt 7.9 10*3/uL High 1.8-7.0 [facility] Comment on above: Performed By: #### B MP3M, HEMDF, PHOS3, MG3 #### [facility] [place] [address] Basophils/100 WBC (Bld) 0.1 % Normal 0.0-2.0 [facility] [facility] Comment on above: Performed By: #### B MP3M, HEMDF, PHOS3, MG3 #### [facility] [place] [address] Eosinophils (Bld) [#/Vol] 0.1 10*3/uL Normal 0.0-0.5 [facility] Comment on above: Performed By: #### B MP3M, HEMDF, PHOS3, MG3 #### [place] [address] [place] [address] Eosinophils/100 WBC (Bld) 1.3 % Normal 1.0-6.0 [facility] Comment on above: Performed By: #### B MP3M, HEMDF, PHOS3, MG3 #### [place] [address] [address] [place], [place] Erythrocyte distribution width (RBC) [Ratio] 16.4 % High 11.5-14.5 [facility] Comment on above: Performed By: #### B MP3M, HEMDF, PHOS3, MG3 #### [place] [address] [address] [place], [place] Granulocytes/100 WBC (Bld) 80.4 % High 40.0-80.0 [facility] Comment on above: Performed By: #### B MP3M, HEMDF, PHOS3, MG3 #### [place] [address] [address] [place], [place] Hematocrit (Bld) [Volume fraction] 34.8 % Low 35.0-47.0 [facility] Comment on above: Performed By: #### B MP3M, HEMDF, PHOS3, MG3 #### [place] [address] [address] [place], [place] Hemoglobin (Bld) [Mass/Vol] 11.1 g/dL Low 11.7-16.0 [facility] Comment on above: Performed By: #### B MP3M, HEMDF, PHOS3, MG3 #### [place] [address] [address] [place], [place] Lymphocytes (Bld) [#/Vol] 0.6 10*3/uL Low 1.0-4.3 [facility] Comment on above: Performed By: #### B MP3M, HEMDF, PHOS3, MG3 #### [place] [place] [address] [place] [address] Lymphocytes/100 WBC (Bld) 6.5 % Low 20.0-40.0 [facility] Comment on above: Performed By: #### B MP3M, HEMDF, PHOS3, MG3 #### [place] [address] [address] [place], [place] MCH (RBC) [Entitic mass] 30.8 pg Normal 26.0-34.0 [facility] Comment on above: Performed By: #### B MP3M, HEMDF, PHOS3, MG3 #### [place] [address] [address] [place], [place] MCHC 31.7 % Low 32.0-36.0 [facility] Comment on above: Performed By: #### B MP3M, HEMDF, PHOS3, MG3 #### [address] [address] [place], [place] MCV (RBC) [Entitic vol] 96.9 fL Normal 79.0-98.0 [facility] Comment on above: Performed By: #### B MP3M, HEMDF, PHOS3, MG3 #### [address] [address] [place], [place] Monocytes (Bld) [#/Vol] 1.1 10*3/uL High 0.0-0.8 [facility] Comment on above: Performed By: #### B MP3M, HEMDF, PHOS3, MG3 #### [address] [address] [place], [place] Monocytes/100 WBC (Bld) 11.7 % High 2.0-10.0 [facility] Comment on above: Performed By: #### B MP3M, HEMDF, PHOS3, MG3 #### [address] [address] [place], [place] Platelet mean volume (Bld) [Entitic vol] 8.4 fL Normal 7.4-10.4 [facility] Comment on above: Performed By: #### B MP3M, HEMDF, PHOS3, MG3 #### [address] [address] [place], [place] Platelets (Bld) [#/Vol] 143 10*3/uL Normal 140-440 [facility] Comment on above: Performed By: #### B MP3M, HEMDF, PHOS3, MG3 #### [address] [address] [place] [address] RBC (Bld) [#/Vol] 3.59 10*6/uL Low 3.80-5.20 [facility] Comment on above: Performed By: #### B MP3M, HEMDF, PHOS3, MG3 #### [address] [address] [place] [address] WBC (Bld) [#/Vol] 9.8 10*3/uL Normal 3.6-10.7 [facility] Comment on above: Performed By: #### B MP3M, HEMDF, PHOS3, MG3 #### [address] [address] [place] [address] Magnesiumon 01-20-2021 Magnesium [Mass/Vol] 1.8 mg/dL Normal 1.6-2.3 [facility] Comment on above: Performed By: #### B MP3M, HEMDF, PHOS3, MG3 #### [address] [address] [place] [address] MagnesiumOrdered By: Liliana Martinez on 01-20-2021 Magnesium [Mass/Vol] 1.8 mg/dL 1.6 - 2 .3 mg/dL [facility] Work Phone: No Panel InformationOrdered By: Liliana Martinez on 01-20-2021 Test Performed by [facility], [facility] [place], [place] [id number] [place] [address] Work Phone: [facility] Work Phone: Phosphoruson 01-20-2021 Phosphate [Mass/Vol] 3.9 mg/dL Normal 2.5-4.5 [facility] Comment on above: Performed By: #### B MP3M, HEMDF, PHOS3, MG3 #### [address] [address] [place] [address] PhosphorusOrdered By: Fer Martinez on 01-20-2021 Phosphate [Mass/Vol] 3.9 mg/dL 2.5 - 4 .5 mg/dL [facility] Work Phone: Add On Lab TestOrdered By: Danny jennifer Do on 01-19-2021 Add On Accepted [facility] Work Phone: Comment on above: Specimen available & acceptable for analysis. Test Performed by [facility], [address] [place] [address] [facility] Work Phone: [facility] Work Phone: Add on test from HISon 01-19 Add on test from HIS Accepted Normal [facility] Comment on above: Result Comment: Spec imen available & acceptable for analysis. Performed By: #### B MP3M, HEMDF, PHOS3, MG3 #### [address] Basic Metabolic Panelon - Calcium [Mass/Vol] 8.9 mg/dL Normal 8.4-10.4 [facility] Comment on above: Performed By: #### B MP3M, HEMDF, PHOS3, MG3 #### [address] [address] [place], [place] Anion gap [Moles/Vol] 9 mmol/L Normal 3-13 [facility] Comment on above: Performed By: #### B MP3M, HEMDF, PHOS3, MG3 #### [address] [address] [place], [place] CO2 [Moles/Vol] 22 mmol/L Normal 22-30 [facility] Comment on above: Performed By: #### B MP3M, HEMDF, PHOS3, MG3 #### [address] [address] [place], [place] Creatinine [Mass/Vol] 1.36 mg/dL High 0.52-1.25 [facility] Comment on above: Performed By: #### B MP3M, HEMDF, PHOS3, MG3 #### [address] [address] [place] [address] GFR/1.73 sq M.predicted among blacks MDRD (S/P/Bld) [Vol rate/Area] 51.7 mL/min/{1.73_m2} Abnormal >60 [facility] Comment on above: Performed By: #### B MP3M, HEMDF, PHOS3, MG3 #### [employer] [address] [address] GFR/1.73 sq M.predicted among non-blacks MDRD (S/P/Bld) [Vol rate/Area] 44.6 mL/min/{1.73_m2} Abnormal >60 [facility] Comment on above: Result Comment: KDIG O guidelines provide the following GFR categories: Stage GFR(ml/min/1.73 m2) Terms G1 >=90 Normal or high G2 60-89 Mildly decreased* G3a 45-59 Mildly to moderately decreased G3b 30-44 Moderately to severely decreased G4 15-29 Severely decreased G5 <15 Kidney failure *Relative to young adult level. In the absence of evidence of kidney damage, neither GFR category G1 nor G2 fulfill the criteria for CKD. The CKD-EPI equation is validated in individuals 18 years of age and older. Currently the best equation for estimating glomerular filtration rate (GFR) from serum creatinine in children is the Bedside Corral equation. It is less accurate in patients with extremes of muscle mass, restriction of dietary protein, ingestion of creatine, extra-renal metabolism of creatinine, or treatment with medications that affect renal tubular creatinine secretion. Performed By: #### B MP3M, HEMDF, PHOS3, MG3 #### [facility] [employer] [address] Glucose [Mass/Vol] 163 mg/dL High 70-100 [facility] Comment on above: Performed By: #### B MP3M, HEMDF, PHOS3, MG3 #### [facility] [employer] [facility] [address] [address] [place], [place] Urea nitrogen [Mass/Vol] 35 mg/dL High 7-20 [facility] Comment on above: Performed By: #### B MP3M, HEMDF, PHOS3, MG3 #### [facility] [employer] [address] [address] Chloride [Moles/Vol] 104 mmol/L Normal 98-107 [facility] Comment on above: Performed By: #### B MP3M, HEMDF, PHOS3, MG3 #### [address] [address] [place], [place] Potassium [Moles/Vol] 5.0 mmol/L Normal 3.5-5.1 [facility] Comment on above: Performed By: #### B MP3M, HEMDF, PHOS3, MG3 #### [address] [address] [place], [place] Sodium [Moles/Vol] 135 mmol/L Normal 135-145 [facility] Comment on above: Performed By: #### B MP3M, HEMDF, PHOS3, MG3 #### [address] [address] [place], [place] Calcium [Mass/Vol] 9.2 mg/dL Normal 8.4-10.4 [facility] Comment on above: Performed By: #### B MP3M, HEMDF, PHOS3, MG3 #### [address] [address] [place], [place] Glucose [Mass/Vol] 144 mg/dL High 70-100 [facility] Comment on above: Performed By: #### B MP3M, HEMDF, PHOS3, MG3 #### [address] [address] [place], [place] Anion gap [Moles/Vol] 15 mmol/L High 3-13 [facility] Comment on above: Performed By: #### B MP3M, HEMDF, PHOS3, MG3 #### [address] [address] [address] [place], [place] CO2 [Moles/Vol] 18 mmol/L Low 22-30 [facility] Comment on above: Performed By: #### B MP3M, HEMDF, PHOS3, MG3 #### [address] [address] [place], [place] Creatinine [Mass/Vol] 1.58 mg/dL High 0.52-1.25 [facility] Comment on above: Performed By: #### B MP3M, HEMDF, PHOS3, MG3 #### [facility] [address] [place] [address] GFR/1.73 sq M.predicted among blacks MDRD (S/P/Bld) [Vol rate/Area] 43.1 mL/min/{1.73_m2} Abnormal >60 [facility] Comment on above: Performed By: #### B MP3M, HEMDF, PHOS3, MG3 #### [facility] [address] [place] [address] GFR/1.73 sq M.predicted among non-blacks MDRD (S/P/Bld) [Vol rate/Area] 37.2 mL/min/{1.73_m2} Abnormal >60 [facility] Comment on above: Result Comment: KDIG O guidelines provide the following GFR categories: Stage GFR(ml/min/1.73 m2) Terms G1 >=90 Normal or high G2 60-89 Mildly decreased* G3a 45-59 Mildly to moderately decreased G3b 30-44 Moderately to severely decreased G4 15-29 Severely decreased G5 <15 Kidney failure *Relative to young adult level. In the absence of evidence of kidney damage, neither GFR category G1 nor G2 fulfill the criteria for CKD. The CKD-EPI equation is validated in individuals 18 years of age and older. Currently the best equation for estimating glomerular filtration rate (GFR) from serum creatinine in children is the Bedside Corral equation. It is less accurate in patients with extremes of muscle mass, restriction of dietary protein, ingestion of creatine, extra-renal metabolism of creatinine, or treatment with medications that affect renal tubular creatinine secretion. Performed By: #### B MP3M, HEMDF, PHOS3, MG3 #### [facility] [address] [place] [address] Urea nitrogen [Mass/Vol] 42 mg/dL High 7-20 [facility] Comment on above: Performed By: #### B MP3M, HEMDF, PHOS3, MG3 #### [facility] [address] [place] [address] Chloride [Moles/Vol] 105 mmol/L Normal 98-107 [facility] Comment on above: Performed By: #### B MP3M, HEMDF, PHOS3, MG3 #### [facility] [address] [place], [place] Potassium [Moles/Vol] 5.6 mmol/L High 3.5-5.1 [facility] Comment on above: Performed By: #### B MP3M, HEMDF, PHOS3, MG3 #### [facility] [address] [place], [place] Sodium [Moles/Vol] 137 mmol/L Normal 135-145 [facility] Comment on above: Performed By: #### B MP3M, HEMDF, PHOS3, MG3 #### [facility] [address] [place], [place] Basic Metabolic Panel w/ Ref nella to MGOrdered By: Julian Padilla on 01-19-2021 Anion gap [Moles/Vol] 9 mmol/L 3 - 13 mmol/L [facility] Work Phone: Calcium [Mass/Vol] 8.9 mg/dL 8.4 - 10. 4 mg/dL [facility] Work Phone: Chloride [Moles/Vol] 104 mmol/L 98 - 10 7 mmol/L [facility] Work Phone: CO2 [Moles/Vol] 22 mmol/L 22 - 30 mmol/L [facility] Work Phone: Creatinine [Mass/Vol] 1.36 mg/dL High 0.52 - 1.25 mg/dL [facility] Work Phone: EGFR IF NonAfrican [place]yan 44.6 mL/min Abnormal >60 [facility] Work Phone: Comment on above: KDIGO guidelines pro vide the following GFR categories: Stage GFR(ml/min/1.73 m2) Terms G1 >=90 Normal or high G2 60-89 Mildly decreased* G3a 45-59 Mildly to moderately decreased G3b 30-44 Moderately to severely decreased G4 15-29 Severely decreased G5 <15 Kidney failure *Relative to young adult level. In the absence of evidence of kidney damage, neither GFR category G1 nor G2 fulfill the criteria for CKD. The CKD-EPI equation is validated in individuals 18 years of age and older. Currently the best equation for estimating glomerular filtration rate (GFR) from serum creatinine in children is the Bedside Corral equation. It is less accurate in patients with extremes of muscle mass, restriction of dietary protein, ingestion of creatine, extra-renal metabolism of creatinine, or treatment with medications that affect renal tubular creatinine secretion. GFR/1.73 sq M.predicted among blacks MDRD (S/P/Bld) [Vol rate/Area] 51.7 mL/min/{1.73_m2} Abnormal >60 [facility] Work Phone: Glucose [Mass/Vol] 163 mg/dL High 70 - 100 mg/dL [facility] Work Phone: Interpretation and review of laboratory results Abnormal [facility] Work Phone: Potassium [Moles/Vol] 5.0 mmol/L 3.5 - 5.1 mmol/L [facility] Work Phone: Sodium [Moles/Vol] 135 mmol/L 135 - 145 mmol/L [facility] Work Phone: Urea nitrogen (BldV) [Mass/Vol] 35 mg/dL High 7 - 20 mg/dL [facility] Work Phone: Test Performed by [facility], [address] [place] [address] [facility] Work Phone: [facility] Work Phone: Basic Metabolic Panel w/ Ref nella to MGOrdered By: Liliana Martinez on 01-19-2021 Anion gap [Moles/Vol] 15 mmol/L High 3 - 13 mmol/L [facility] Work Phone: Calcium [Mass/Vol] 9.2 mg/dL 8.4 - 10. 4 mg/dL [facility] Work Phone: Chloride [Moles/Vol] 105 mmol/L 98 - 10 7 mmol/L [facility] Work Phone: CO2 [Moles/Vol] 18 mmol/L Low 22 - 30 mmol/L [facility] Work Phone: Creatinine [Mass/Vol] 1.58 mg/dL High 0.52 - 1.25 mg/dL [facility] Work Phone: EGFR IF NonAfrican [place] 37.2 mL/min Abnormal >60 [facility] Work Phone: [phone] Comment on above: KDIGO guidelines pro vide the following GFR categories: Stage GFR(ml/min/1.73 m2) Terms G1 >=90 Normal or high G2 60-89 Mildly decreased* G3a 45-59 Mildly to moderately decreased G3b 30-44 Moderately to severely decreased G4 15-29 Severely decreased G5 <15 Kidney failure *Relative to young adult level. In the absence of evidence of kidney damage, neither GFR category G1 nor G2 fulfill the criteria for CKD. The CKD-EPI equation is validated in individuals 18 years of age and older. Currently the best equation for estimating glomerular filtration rate (GFR) from serum creatinine in children is the Bedside Corral equation. It is less accurate in patients with extremes of muscle mass, restriction of dietary protein, ingestion of creatine, extra-renal metabolism of creatinine, or treatment with medications that affect renal tubular creatinine secretion. GFR/1.73 sq M.predicted among blacks MDRD (S/P/Bld) [Vol rate/Area] 43.1 mL/min/{1.73_m2} Abnormal >60 [facility] Work Phone: [phone] Glucose [Mass/Vol] 144 mg/dL High 70 - 100 mg/dL [facility] Work Phone: [phone] Potassium [Moles/Vol] 5.6 mmol/L High 3.5 - 5.1 mmol/L [facility] Work Phone: [phone] Sodium [Moles/Vol] 137 mmol/L 135 - 145 mmol/L [facility] Work Phone: [phone] Urea nitrogen (BldV) [Mass/Vol] 42 mg/dL High 7 - 20 mg/dL [facility] Work Phone: [phone] CBC auto differentialOrdered By: Liliana Martinez on 01-19-2021 Absolute Baso # 0.0 10*3/uL 0.0 - 0.2 10*3/uL [facility] Work Phone: [phone] Absolute Neut # 9.3 10*3/uL High 1.8 - 7.0 10*3/uL [facility] Work Phone: [phone] Basophils/100 WBC (Bld) 0.1 % 0.0 - 2.0 % [facility] Work Phone: [phone] Eosinophils (Bld) [#/Vol] 0.0 10*3/uL 0.0 - 0.5 10*3/uL [facility] Work Phone: Eosinophils/100 WBC (Bld) 0.0 % Low 1.0 - 6.0 % [facility] Work Phone: Granulocytes/100 WBC (Bld) 90.2 % High 40.0 - 80.0 % [facility] Work Phone: Hematocrit (Bld) [Volume fraction] 35.2 % 35.0 - 47.0 % [facility] Work Phone: Hemoglobin.gastrointes tinal spec 1 Ql (Stl) 11.3 g/dL Low 11.7 - 16.0 g/dL [facility] Work Phone: Interpretation and review of laboratory results Abnormal [facility] Work Phone: Lymphocytes (Bld) [#/Vol] 0.3 10*3/uL Low 1.0 - 4.3 10*3/uL [facility] Work Phone: Lymphocytes/100 WBC (Bld) 2.6 % Low 20.0 - 40.0 % [facility] Work Phone: MCH (RBC) [Entitic mass] 30.4 pg 26.0 - 34.0 pg [facility] Work Phone: MCHC (RBC) [Mass/Vol] 32.0 % 32.0 - 36.0 % [facility] Work Phone: MCV (RBC) [Entitic vol] 95.0 fL 79.0 - 98.0 fL [facility] Work Phone: Monocytes (Bld) [#/Vol] 0.7 10*3/uL 0.0 - 0.8 10*3/uL [facility] Work Phone: Monocytes/100 WBC (Bld) 7.1 % 2.0 - 10.0 % [facility] Work Phone: Platelet distribution width (Bld) [Ratio] 15.4 % High 11.5 - 14.5 % [facility] Work Phone: [phone] Platelet mean volume (Bld) [Entitic vol] 8.0 fL 7.4 - 10.4 fL [facility] Work Phone: [phone] Platelets (Bld) [#/Vol] 148 10*3/uL 140 - 440 10*3/uL [facility] Work Phone: [phone] RBC (Bld) [#/Vol] 3.71 10*6/uL Low 3.80 - 5.2 0 10*6/uL [facility] Work Phone: [phone] WBC (Bld) [#/Vol] 10.3 10*3/uL 3.6 - 10.7 10*3/uL [facility] Work Phone: [phone] Performed by [address] [address] [facility] Work Phone: [phone] [facility] Work Phone: [phone] UGIOrdered By: Liliana jauregui on 01-19-2021 Patient Name: DEE SHEPHERD Fluoroscopy ACCESSION EXAM DATE/TIME PROCEDURE ORDERING PROVIDER [id number] 01/19/2021 08:58 EDT RF UGI w/o KUB & w/ or Naida MARTINEZ, w/o Delay Flm LILIANA CPT code 28796 Reason For Exam (RF UGI w/o KUB & w/ or w/o Delay Flm) s/p hiatal hernia repair with roddy Report GASTROGRAFIN UPPER GI SERIES CLINICAL INDICATIONS: Postop day one Roddy fundoplication. Evaluate for leak. COMPARISON: 11/27/2020 FLUOROSCOPY TIME: 0.30 Minutes FLUOROSCOPIC SPOT IMAGES: 43 FINDINGS: The exam was performed using Gastrografin orally as requested. There is narrowing of the distal end of the esophagus and deformity of the gastric fundus consistent with post surgical changes in accordance with Roddy fundoplication. There are no contrast extravasation or obstruction. The remainder of the esophagus is otherwise unremarkable. There is limited visualization of the stomach that shows contrast emptying into the duodenum without obstruction. There are surgical clips in the upper abdomen. A surgical drain is seen within the left upper quadrant. There are atelectasis/infiltrate in the partially visualized lung bases. IMPRESSION: Changes consistent with Roddy fundoplication. No extravasation or obstruction. Basilar atelectasis/infiltrates. Report Dictated on --- Final --- Dictated: 01/19/2021 9:27 am Dictating Physician: MD COBOS JOHN Signed Date and Time: 01/19/2021 12:11 pm Signed by: MD COBOS JOHN Transcribed Date and Time: 01/19/2021 10:16 [facility] Work Phone: [facility], [facility] Incoming Radiology Results From [facility] - 01/19/2021 12:12 PM EDT Patient Name: DEE SHEPHERD Fluoroscopy ACCESSION EXAM DATE/TIME PROCEDURE ORDERING PROVIDER [id number] 01/19/2021 08:58 EDT RF UGI w/o KUB & w/ or Naida MARTINEZ, w/o Delay Flm LILIANA CPT code 21640 Reason For Exam (RF UGI w/o KUB & w/ or w/o Delay Flm) s/p hiatal hernia repair with roddy Report GASTROGRAFIN UPPER GI SERIES CLINICAL INDICATIONS: Postop day one Roddy fundoplication. Evaluate for leak. COMPARISON: 11/27/2020 FLUOROSCOPY TIME: 0.30 Minutes FLUOROSCOPIC SPOT IMAGES: 43 FINDINGS: The exam was performed using Gastrografin orally as requested. There is narrowing of the distal end of the esophagus and deformity of the gastric fundus consistent with post surgical changes in accordance with Roddy fundoplication. There are no contrast extravasation or obstruction. The remainder of the esophagus is otherwise unremarkable. There is limited visualization of the stomach that shows contrast emptying into the duodenum without obstruction. There are surgical clips in the upper abdomen. A surgical drain is seen within the left upper quadrant. There are atelectasis/infiltrate in the partially visualized lung bases. IMPRESSION: Changes consistent with Roddy fundoplication. No extravasation or obstruction. Basilar atelectasis/infiltrates. Report Dictated on --- Final --- Dictated: 01/19/2021 9:27 am Dictating Physician: MD COBOS JOHN Signed Date and Time: 01/19/2021 12:11 pm Signed by: MD COBOS JOHN Transcribed Date and Time: 01/19/2021 10:16 [facility] Work Phone: [facility] Work Phone: Hemogram w/ Autodiffon 01-19 Abs Baso Cnt 0.0 10*3/uL Normal 0.0-0.2 [facility] Comment on above: Performed By: #### B MP3M, HEMDF, PHOS3, MG3 #### [address] [address] [place] [address] Abs Neutrophile Cnt 9.3 10*3/uL High 1.8-7.0 [facility] Comment on above: Performed By: #### B MP3M, HEMDF, PHOS3, MG3 #### [address] [address] [place] [address] Basophils/100 WBC (Bld) 0.1 % Normal 0.0-2.0 [facility] Comment on above: Performed By: #### B MP3M, HEMDF, PHOS3, MG3 #### [address] [address] [place] [address] Eosinophils (Bld) [#/Vol] 0.0 10*3/uL Normal 0.0-0.5 [facility] Comment on above: Performed By: #### B MP3M, HEMDF, PHOS3, MG3 #### [address] [address] [place] [address] Eosinophils/100 WBC (Bld) 0.0 % Low 1.0-6.0 [facility] Comment on above: Performed By: #### B MP3M, HEMDF, PHOS3, MG3 #### [address] [address] [place] [address] Erythrocyte distribution width (RBC) [Ratio] 15.4 % High 11.5-14.5 [facility] Comment on above: Performed By: #### B MP3M, HEMDF, PHOS3, MG3 #### [address] [address] [place], [place] Granulocytes/100 WBC (Bld) 90.2 % High 40.0-80.0 [facility] Comment on above: Performed By: #### B MP3M, HEMDF, PHOS3, MG3 #### [address] [address] [place], [place] Hematocrit (Bld) [Volume fraction] 35.2 % Normal 35.0-47.0 [facility] Comment on above: Performed By: #### B MP3M, HEMDF, PHOS3, MG3 #### [address] [address] [place], [place] Hemoglobin (Bld) [Mass/Vol] 11.3 g/dL Low 11.7-16.0 [facility] Comment on above: Performed By: #### B MP3M, HEMDF, PHOS3, MG3 #### [address] [address] [place], [place] Lymphocytes (Bld) [#/Vol] 0.3 10*3/uL Low 1.0-4.3 [facility] Comment on above: Performed By: #### B MP3M, HEMDF, PHOS3, MG3 #### [address] [address] [place], [place] Lymphocytes/100 WBC (Bld) 2.6 % Low 20.0-40.0 [facility] Comment on above: Performed By: #### B MP3M, HEMDF, PHOS3, MG3 #### [address] [address] [place], [place] MCH (RBC) [Entitic mass] 30.4 pg Normal 26.0-34.0 [facility] Comment on above: Performed By: #### B MP3M, HEMDF, PHOS3, MG3 #### [address] [address] [place] MCHC 32.0 % Normal 32.0-36.0 [facility] Comment on above: Performed By: #### B MP3M, HEMDF, PHOS3, MG3 #### [address] [address] [place], [place] MCV (RBC) [Entitic vol] 95.0 fL Normal 79.0-98.0 [facility] Comment on above: Performed By: #### B MP3M, HEMDF, PHOS3, MG3 #### [address] [address] [place], [place] Monocytes (Bld) [#/Vol] 0.7 10*3/uL Normal 0.0-0.8 [facility] Comment on above: Performed By: #### B MP3M, HEMDF, PHOS3, MG3 #### [address] [address] [place], [place] Monocytes/100 WBC (Bld) 7.1 % Normal 2.0-10.0 [facility] Comment on above: Performed By: #### B MP3M, HEMDF, PHOS3, MG3 #### [address] [address] [place], [place] Platelet mean volume (Bld) [Entitic vol] 8.0 fL Normal 7.4-10.4 [facility] Comment on above: Performed By: #### B MP3M, HEMDF, PHOS3, MG3 #### [address] [address] [place], [place] Platelets (Bld) [#/Vol] 148 10*3/uL Normal 140-440 [facility] Comment on above: Performed By: #### B MP3M, HEMDF, PHOS3, MG3 #### [address] [address] [place], [place] RBC (Bld) [#/Vol] 3.71 10*6/uL Low 3.80-5.20 [facility] Comment on above: Performed By: #### B MP3M, HEMDF, PHOS3, MG3 #### [address] [address] [address] [place], [place] WBC (Bld) [#/Vol] 10.3 10*3/uL Normal 3.6-10.7 [facility] Comment on above: Performed By: #### B MP3M, HEMDF, PHOS3, MG3 #### [address] [address] Magnesiumon 01-19-2021 Magnesium [Mass/Vol] 1.5 mg/dL Low 1.6-2.3 [facility] Comment on above: Performed By: #### B MP3M, HEMDF, PHOS3, MG3 #### [address] [address] MagnesiumOrdered By: Liliana Martinez on 01-19-2021 Magnesium [Mass/Vol] 1.5 mg/dL Low 1.6 - 2 .3 mg/dL [facility] Work Phone: No Panel InformationOrdered By: Liliana Martinez on 01-19-2021 Interpretation and review of laboratory results Abnormal [facility] Work Phone: Test Performed by [facility], [address] [place] [id number] [place] [address] Work Phone: [facility] Work Phone: Phosphoruson 01-19-2021 Phosphate [Mass/Vol] 4.1 mg/dL Normal 2.5-4.5 [facility] Comment on above: Performed By: #### B MP3M, HEMDF, PHOS3, MG3 #### [address] [address] PhosphorusOrdered By: Fer Martinez on 01-19-2021 Phosphate [Mass/Vol] 4.1 mg/dL 2.5 - 4 .5 mg/dL [facility] Work Phone: RF UGI w/o KUB w/ or w/o Del ay Flmon 01-19-2021 RF UGI w/o KUB w/ or w/o Delay Fl Patient Name: DEE SHEPHERD Fluoroscopy ACCESSION EXAM DATE/TIME PROCEDURE ORDERING PROVIDER [id number] 01/19/2021 08:58 EDT RF UGI w/o KUB and w/ or Naida MARTINEZ, w/o Delay Flm LILIANA CPT code 63204 Reason For Exam (RF UGI w/o KUB and w/ or w/o Delay Flm) s/p hiatal hernia repair with roddy Report GASTROGRAFIN UPPER GI SERIES CLINICAL INDICATIONS: Postop day one Roddy fundoplication. Evaluate for leak. COMPARISON: 11/27/2020 FLUOROSCOPY TIME: 0.30 Minutes FLUOROSCOPIC SPOT IMAGES: 43 FINDINGS: The exam was performed using Gastrografin orally as requested. There is narrowing of the distal end of the esophagus and deformity of the gastric fundus consistent with post surgical changes in accordance with Roddy fundoplication. There are no contrast extravasation or obstruction. The remainder of the esophagus is otherwise unremarkable. There is limited visualization of the stomach that shows contrast emptying into the duodenum without obstruction. There are surgical clips in the upper abdomen. A surgical drain is seen within the left upper quadrant. There are atelectasis/infiltrate in the partially visualized lung bases. IMPRESSION: Changes consistent with Roddy fundoplication. No extravasation or obstruction. Basilar atelectasis/infiltrates. Report Dictated on Final Dictated: 01/19/2021 9:27 am Dictating Physician: MD COBOS JOHN Signed Date and Time: 01/19/2021 12:11 pm Signed by: MD COBOS JOHN Transcribed Date and Time: 01/19/2021 10:16 Normal [facility] Surgical PathologyOrdered By : Sumeet Street on 01-19-2021 Surgical Pathology Report SEE BELOW [facility] Work Phone: [phone] [facility]ATORY [facility]IC[facility] [address] [place], [place] [id number] FINAL SURGICAL PATHOLOGY REPORT NAME: DEE SHEPHERD : 1970 50 Y F DONALD NO.: [id number] LOCATION: [facility] 6116 01 PROCEDURE 01/18/2021 DATE: SURGEON: SUMEET STREET DO RECEIVED 01/18/2021 DATE: ATTENDING: SUMEET STREET DO REPORT DATE: 01/19/2021 COPIES TO: DIAGNOSIS: STOMACH, SIDRA GASTROPLASTY - PORTION OF UNREMARKABLE GASTRIC MUCOSA. CRH/CRH Signature> ABBE OCONNOR M.D. CLINICAL INFORMATION: Hiatal hernia, GERD SPECIMEN: TISSUE NOS GROSS DESCRIPTION: Received in formalin labeled Sidra gastroplasty is a portion of tissue measuring 4.5 x 2 x 2 cm. There is a row of metallic nelsy present along two edges of the specimen. Upon opening the specimen it is filled with thick, hemorrhagic, mucoid contents. The mucosa is granular and pink-cloud with prominent, rugal folds. No polyps, ulcers, or defects are identified. Drawing In Machine Tender sections are submitted in a single cassette. JCK/GREGORY Disclaimer: The following statement applies to all immunohistochemistry, in situ hybridization, molecular studies, and immunofluorescence testing. The use of one or more reagents in the above tests is regulated as an analyte specific reagent (ASR). These tests were developed and their performance characteristics determined by the clinical laboratories of [facility]. They have not been cleared by the US Food and Drug Administration (FDA). The FDA has determined that such clearance or approval is not necessary. All the above immunostains were performed on paraffin embedded tissue. Appropriate positive and negative controls (where applicable) were run in parallel with the patient's specimen; these controls showed expected staining pattern, with acceptable intensity of staining. Immunohistochemical assays have not been validated on decalcified tissues. Results should be interpreted with caution given the raised possibility of false negativity on decalcified specimens. Professional Performing Location: [address] [address]. DEPARTMENT OF PATHOLOGY AND LABORATORY MEDICINE [place], [place] [address] [facility] Work Phone: [phone] [facility] Work Phone: TroponinOrdered By: Liliana Martinez on 01-19-2021 Troponin I.cardiac [Mass/Vol] ng/mL 0.000 - 0.034 ng/mL [facility] Work Phone: Comment on above: . Test Performed by [facility], [address] [place] [id number] [place] [address] Work Phone: [phone] [facility] Work Phone: Troponin Ion 01-19-2021 Troponin I.cardiac [Mass/Vol] ng/mL Normal 0.000-0.034 [facility] Comment on above: Result Comment: . Performed By: #### B MP3M, HEMDF, PHOS3, MG3 #### [address] [address] OPERATIVE REPORTOrdered By: 3m Scanning on 01-18-2021 [facility] Work Phone: Surgical Pathologyon 021 Surgical Pathology [id number] [facility] PATHOLOGY AND LABORATORY MEDICINE [address] [place], [place] [id number] FINAL SURGICAL PATHOLOGY REPORT NAME: DEE SHEPHERD : 1970 50 Y Lynne BENNETT NO.: [id number] LOCATION: O 6116 01 PROCEDURE 01/18/2021 DATE: SURGEON: SUMEET STREET DO RECEIVED 01/18/2021 DATE: ATTENDING: SUMEET STREET DO REPORT DATE: 01/19/2021 COPIES TO: DIAGNOSIS: STOMACH, SIDRA GASTROPLASTY - PORTION OF UNREMARKABLE GASTRIC MUCOSA. CRH/CRH Signature> ABBE OCONNOR M.D. CLINICAL INFORMATION: Hiatal hernia, GERD SPECIMEN: TISSUE NOS GROSS DESCRIPTION: Received in formalin labeled Sidra gastroplasty is a portion of tissue measuring 4.5 x 2 x 2 cm. There is a row of metallic nelsy present along two edges of the specimen. Upon opening the specimen it is filled with thick, hemorrhagic, mucoid contents. The mucosa is granular and pink-cloud with prominent, rugal folds. No polyps, ulcers, or defects are identified. Drawing In Machine Tender sections are submitted in a single cassette. JCK/GREGORY Disclaimer: The following statement applies to all immunohistochemistry, in situ hybridization, molecular studies, and immunofluorescence testing. The use of one or more reagents in the above tests is regulated as an analyte specific reagent (ASR). These tests were developed and their performance characteristics determined by the clinical laboratories of [facility]. They have not been cleared by the US Food and Drug Administration (FDA). The FDA has determined that such clearance or approval is not necessary. All the above immunostains were performed on paraffin embedded tissue. Appropriate positive and negative controls (where applicable) were run in parallel with the patient's specimen; these controls showed expected staining pattern, with acceptable intensity of staining. Immunohistochemical assays have not been validated on decalcified tissues. Results should be interpreted with caution given the raised possibility of false negativity on decalcified specimens. Professional Performing Location: [place] [address]. DEPARTMENT OF PATHOLOGY AND LABORATORY MEDICINE [place], [place] [address] [email or web address] Normal [facility] Surgical Pathologyon 021 Surgical Pathology [id number] [facility] PATHOLOGY AND LABORATORY MEDICINE [address] [place], [place] [id number] FINAL SURGICAL PATHOLOGY REPORT NAME: DEE SHEPHERD : 1970 50 Y F BILLING NO.: [id number] LOCATION: 1XEO PROCEDURE 11/30/2020 DATE: SURGEON: ERIBERTO HINES DO RECEIVED 11/30/2020 DATE: ATTENDING: ERIBERTO HINES DO REPORT DATE: 12/10/2020 COPIES TO: DIAGNOSIS: A. DUODENAL BIOPSY - FRAGMENTS OF DUODENAL MUCOSA WITH GASTRIC METAPLASIA AND CHRONIC INFLAMMATION. Comment: Differential diagnostic considerations include peptic duodenitis, NSAID therapy, and bile reflux disorders. B. GASTRIC BIOPSY - FRAGMENTS OF GASTRIC MUCOSA WITH CHANGES OF REACTIVE GASTROPATHY AND CHRONIC INFLAMMATION. C. FOCUSES GASTROESOPHAGEAL JUNCTION BIOPSY - FRAGMENTS OF ESOPHAGEAL SQUAMOUS MUCOSA WITH BLOOD DEMARCO FORMATION BASILAR HYPERPLASIA, AND MILD CHRONIC INFLAMMATION CONSISTENT WITH REFLUX-RELATED INJURY. GASTRIC GLANDULAR MUCOSA WITH CHRONIC INFLAMMATION. Comment: No evidence of intestinal metaplasia or malignancy. AHD/AHD Signature> SUN SIFUENTES M.D. CLINICAL INFORMATION: GERD, hiatal hernia SPECIMEN: (A) DUODENUM, BIOPSY (B) GASTRIC BIOPSY (C) GASTRO-ESOPHAGEAL JUNCTION, BIOPSY GROSS DESCRIPTION: A. Received in formalin labeled duodenal polyp is a segment of cloud tissue 0.4 cm. The specimen is entirely submitted in a single cassette. B. Received in formalin labeled antral biopsy is a segment of cloud tissue 0.4 cm. The specimen is entirely submitted in a single cassette. C. Received in formalin labeled GE junction biopsy is a segment of cloud tissue 0.3 cm. The specimen is entirely submitted in a single cassette. JCK/KMS1 Disclaimer: The following statement applies to all immunohistochemistry, in situ hybridization, molecular studies, and immunofluorescence testing. The use of one or more reagents in the above tests is regulated as an analyte specific reagent (ASR). These tests were developed and their performance characteristics determined by the clinical laboratories of [facility]. They have not been cleared by the US Food and Drug Administration (FDA). The FDA has determined that such clearance or approval is not necessary. All the above immunostains were performed on paraffin embedded tissue. Appropriate positive and negative controls (where applicable) were run in parallel with the patient's specimen; these controls showed expected staining pattern, with acceptable intensity of staining. Immunohistochemical assays have not been validated on decalcified tissues. Results should be interpreted with caution given the raised possibility of false negativity on decalcified specimens. Professional Performing Location: [address] [address]. DEPARTMENT OF PATHOLOGY AND LABORATORY MEDICINE [place], [place] [address] [email or web address] Normal [facility] RF UGI w/o KUB w/ or w/o Del ay Flmon 11-27-2020 RF UGI w/o KUB w/ or w/o Delay Flm Patient Name: DEE SHEPHERD Fluoroscopy ACCESSION EXAM DATE/TIME PROCEDURE ORDERING PROVIDER [id number] 11/27/2020 11:12 EDT RF UGI w/o KUB and w/ or WILLARD NAQVI w/o Delay Flm CPT code 20136 Reason For Exam (RF UGI w/o KUB and w/ or w/o Delay Flm) Gerd, HH Report AIR CONTRAST UGI SERIES with MARSHMALLOW/BAGEL PROTOCOL CLINICAL INDICATIONS: GERD. History of hiatal hernia. COMPARISON: CT chest 08/02/2020 FLUOROSCOPY TIME: 1.49 minutes. FLUOROSCOPIC EXPOSURES: 23 fluoroscopic spot images and 2 cine loops were obtained. TECHNIQUE: Biphasic exam was performed with barium and air. Marshmallow/bagel protocol per physician request. FINDINGS: Barium and air are administered. The esophagus is studied in the upright as well as the horizontal positions. The esophagus is normal in course and caliber. There is a large hiatal hernia. No free gastroesophageal reflux is seen at this time. Barium flows freely from the esophagus into the stomach. The stomach and duodenum show normal mucosal pattern, with no discrete ulcer or mass. The visualized proximal jejunum is unremarkable. The marshmallow bolus passes during the initial peristaltic waves. There is incomplete stripping and redirection of the bagel bolus through the thoracic esophagus. IMPRESSION: 1. Large hiatal hernia. 2. The marshmallow bolus passes during the initial peristaltic wave. There is incomplete stripping and redirection of the bagel bolus through the thoracic esophagus. Report Dictated on Final Dictated: 11/27/2020 12:22 pm Dictating Physician: DO REESE ANTHONY Signed Date and Time: 11/27/2020 3:47 pm Signed by: DO REESE ANTHONY Transcribed Date and Time: 11/27/2020 12:28 Normal [facility] XR Hand - left PA and Latera l and Obliqueon 09-05-2020 IMPRESSION: No Acute Fracture. Bias Cutter Helper: DORON Transcribe Date/Time: Sep 05 2020 5:09P Dictated by : JHONNY CARUSO MD This examination was interpreted and the report reviewed and electronically signed by: JHONNY CARUSO MD on Sep 05 2020 5:12PM [facility] DIVISION OF RADIOLOGY * * *Final Report* * * DATE OF EXAM: Sep 05 2020 5:06PM WOX 5345 - XR HAND 3V PA/LAT/OBL LT / PROCEDURE REASON: Thumb pain, left * * * * Physician Interpretation * * * * EXAMINATION: XR HAND 3V PA/LAT/OBL LT HISTORY: pt states walking dog about an hour ago and the leash hyperextended the left thumb back. pain in the thumb only Thumb pain, left. TECHNIQUE: XR HAND 3V PA/LAT/OBL LT Laterality: LEFT Number of different views (projections): 3 M: XB_1 COMPARISON: There are no prior studies for comparison. RESULT: AP, oblique and lateral radiographs of the left hand show no acute osseous, articular or soft tissue process. Mild scattered degenerative change of the IP joints as well as the first metacarpal carpal joint with marginal spurring noted.. DIVISION OF RADIOLOGY Provider, [facility] - 09/05/2020 * * *Final Report* * * DATE OF EXAM: Sep 05 2020 5:06PM WOX 5345 - XR HAND 3V PA/LAT/OBL LT / PROCEDURE REASON: Thumb pain, left * * * * Physician Interpretation * * * * EXAMINATION: XR HAND 3V PA/LAT/OBL LT HISTORY: pt states walking dog about an hour ago and the leash hyperextended the left thumb back. pain in the thumb only Thumb pain, left. TECHNIQUE: XR HAND 3V PA/LAT/OBL LT Laterality: LEFT Number of different views (projections): 3 M: XB_1 COMPARISON: There are no prior studies for comparison. RESULT: AP, oblique and lateral radiographs of the left hand show no acute osseous, articular or soft tissue process. Mild scattered degenerative change of the IP joints as well as the first metacarpal carpal joint with marginal spurring noted.. IMPRESSION IMPRESSION: No Acute Fracture. Bias Cutter Helper: PSCB Transcribe Date/Time: Sep 05 2020 5:09P Dictated by : JHONNY CARUSO MD This examination was interpreted and the report reviewed and electronically signed by: JOHNNY CARUSO MD on Sep 05 2020 5:12PM EST [facility] Radiology Study observation (narrative) [facility] XR Hand - left PA and Latera l and ObliqueOrdered By: Ccf Provider on 09-05-2020 [facility] Basic Metabolic Panelon 12-0 Anion Gap 15 Normal [facility] Comment on above: Performed By: #### B MP3M, HEMDF, PHOS3, MG3 #### [facility] [address] [place] [address] Calcium [Mass/Vol] 9.0 mg/dL Normal 8.4-10.4 [facility] Comment on above: Performed By: #### B MP3M, HEMDF, PHOS3, MG3 #### [facility] [address] [place] [address] CO2 [Moles/Vol] 20 mmol/L Low 22-30 [facility] Comment on above: Performed By: #### B MP3M, HEMDF, PHOS3, MG3 #### [facility] [address] [place] [address] Glucose [Mass/Vol] 156 mg/dL High 70-100 [facility] Comment on above: Performed By: #### B MP3M, HEMDF, PHOS3, MG3 #### [facility] [address] [place] [address] Urea nitrogen [Mass/Vol] 22 mg/dL High 7-20 [facility] Comment on above: Performed By: #### B MP3M, HEMDF, PHOS3, MG3 #### [address] [address] Creatinine [Mass/Vol] 1.14 mg/dL Normal 0.52-1.25 [facility] Comment on above: Performed By: #### B MP3M, HEMDF, PHOS3, MG3 #### [address] [address] GFR/1.73 sq M.predicted among blacks MDRD (S/P/Bld) [Vol rate/Area] 64.1 mL/min/{1.73_m2} Normal >60 [facility] Comment on above: Performed By: #### B MP3M, HEMDF, PHOS3, MG3 #### [address] [address] GFR/1.73 sq M.predicted among non-blacks MDRD (S/P/Bld) [Vol rate/Area] 55.3 mL/min/{1.73_m2} Abnormal >60 [facility] Comment on above: Result Comment: KDIG O guidelines provide the following GFR categories: Stage GFR(ml/min/1.73 m2) Terms G1 >=90 Normal or high G2 60-89 Mildly decreased* G3a 45-59 Mildly to moderately decreased G3b 30-44 Moderately to severely decreased G4 15-29 Severely decreased G5 <15 Kidney failure *Relative to young adult level. In the absence of evidence of kidney damage, neither GFR category G1 nor G2 fulfill the criteria for CKD. The CKD-EPI equation is validated in individuals 18 years of age and older. Currently the best equation for estimating glomerular filtration rate (GFR) from serum creatinine in children is the Bedside Corral equation. It is less accurate in patients with extremes of muscle mass, restriction of dietary protein, ingestion of creatine, extra-renal metabolism of creatinine, or treatment with medications that affect renal tubular creatinine secretion. Performed By: #### B MP3M, HEMDF, PHOS3, MG3 #### [facility] [address] [place] [address] Chloride [Moles/Vol] 100 mmol/L Normal 98-107 [facility] Comment on above: Performed By: #### B MP3M, HEMDF, PHOS3, MG3 #### [facility] [address] [place], [place] Potassium [Moles/Vol] 4.7 mmol/L Normal 3.5-5.1 [facility] Comment on above: Performed By: #### B MP3M, HEMDF, PHOS3, MG3 #### [facility] [address] [place], [place] Sodium [Moles/Vol] 135 mmol/L Normal 135-145 [facility] Comment on above: Performed By: #### B MP3M, HEMDF, PHOS3, MG3 #### [facility] [address] [place], [place] Anion gap [Moles/Vol] 15 mmol/L [place], [place] Calcium [Mass/Vol] 9.0 mg/dL 8.4 - 10. 4 mg/dL [place], [place] Chloride [Moles/Vol] 100 mmol/L 98 - 10 7 mmol/L [place] CO2 [Moles/Vol] 20 mmol/L Low 22 - 30 mmol/L [place] Creatinine [Mass/Vol] 1.14 mg/dL 0.52 - 1.25 mg/dL [place] EGFR IF NonAfrican [place] 55.3 mL/min Abnormal >60 [place] Comment on above: KDIGO guidelines pro vide the following GFR categories: Stage GFR(ml/min/1.73 m2) Terms G1 >=90 Normal or high G2 60-89 Mildly decreased* G3a 45-59 Mildly to moderately decreased G3b 30-44 Moderately to severely decreased G4 15-29 Severely decreased G5 <15 Kidney failure *Relative to young adult level. In the absence of evidence of kidney damage, neither GFR category G1 nor G2 fulfill the criteria for CKD. The CKD-EPI equation is validated in individuals 18 years of age and older. Currently the best equation for estimating glomerular filtration rate (GFR) from serum creatinine in children is the Bedside Corral equation. It is less accurate in patients with extremes of muscle mass, restriction of dietary protein, ingestion of creatine, extra-renal metabolism of creatinine, or treatment with medications that affect renal tubular creatinine secretion. GFR/1.73 sq M predicted among blacks MDRD (S/P/Bld) [Vol rate/Area] 64.1 mL/min/{1.73_m2} >60 [place] Glucose [Mass/Vol] 156 mg/dL High 70 - 100 mg/dL [place] Interpretation and review of laboratory results Abnormal [place] Potassium [Moles/Vol] 4.7 mmol/L 3.5 - 5.1 mmol/L [place] Sodium [Moles/Vol] 135 mmol/L 135 - 145 mmol/L [place] Urea nitrogen [Mass/Vol] 22 mg/dL High 7 - 20 mg/dL [place] CBC auto differentialon 12-0 Absolute Baso # 0.1 10*3/uL 0 - 0.2 10*3/uL [place] Absolute Neut # 16.0 10*3/uL High 1.8 - 7 10*3/uL [place] Basophils/100 WBC (Bld) 0.3 % 0 - 2 % [place] Eosinophils (Bld) [#/Vol] 0.0 10*3/uL 0 - 0.5 10*3/uL [place] Eosinophils/100 WBC (Bld) 0.1 % Low 1 - 6 % [place] Erythrocyte distribution width (RBC) [Ratio] 16.5 % High 11.5 - 14.5 % [place] Granulocytes/100 WBC (Bld) 89.6 % High 40 - 80 % [place] Hematocrit (Bld) [Volume fraction] 43.2 % 35 - 47 % [place] Hemoglobin (Bld) [Mass/Vol] 14.1 g/dL 11.7 - 16 g/dL [place] Interpretation and review of laboratory results Abnormal [place] Lymphocytes (Bld) [#/Vol] 0.4 10*3/uL Low 1 - 4.3 10*3/uL [place] Lymphocytes/100 WBC (Bld) 2.4 % Low 20 - 40 % [place] MCH (RBC) [Entitic mass] 31.1 pg 26 - 34 pg [place] MCHC (RBC) [Mass/Vol] 32.6 % 32 - 36 % [place] MCV (RBC) [Entitic vol] 95.4 fL 79 - 98 fL [place] Monocytes (Bld) [#/Vol] 1.4 10*3/uL High 0 - 0.8 10*3/uL [place] Monocytes/100 WBC (Bld) 7.6 % 2 - 10 % [place] Platelet mean volume (Bld) [Entitic vol] 7.8 fL 7.4 - 10.4 fL [place] Platelets (Bld) [#/Vol] 181 10*3/uL 140 - 440 10*3/uL [place] RBC (Bld) [#/Vol] 4.53 10*6/uL 3.8 - 5.2 10*6/uL [place] WBC (Bld) [#/Vol] 17.9 10*3/uL High 3.6 - 10.7 10*3/uL [place] Test Performed by [facility], [address] [place] [id number] [place] Hemogram w/ Autodiffon 08-04 Abs Baso Cnt 0.1 10*3/uL Normal 0.0-0.2 [facility] Comment on above: Performed By: #### B MP3M, HEMDF, PHOS3, MG3 #### [address] [address] Abs Neutrophile Cnt 16.0 10*3/uL High 1.8-7.0 [facility] Comment on above: Performed By: #### B MP3M, HEMDF, PHOS3, MG3 #### [address] [place] Basophils/100 WBC (Bld) 0.3 % Normal 0.0-2.0 [facility] Comment on above: Performed By: #### B MP3M, HEMDF, PHOS3, MG3 #### [address] Eosinophils (Bld) [#/Vol] 0.0 10*3/uL Normal 0.0-0.5 [facility] Comment on above: Performed By: #### B MP3M, HEMDF, PHOS3, MG3 #### [address] Eosinophils/100 WBC (Bld) 0.1 % Low 1.0-6.0 [facility] Comment on above: Performed By: #### B MP3M, HEMDF, PHOS3, MG3 #### [address] Erythrocyte distribution width (RBC) [Ratio] 16.5 % High 11.5-14.5 [facility] Comment on above: Performed By: #### B MP3M, HEMDF, PHOS3, MG3 #### [address] Granulocytes/100 WBC (Bld) 89.6 % High 40.0-80.0 [facility] Comment on above: Performed By: #### B MP3M, HEMDF, PHOS3, MG3 #### [address] Hematocrit (Bld) [Volume fraction] 43.2 % Normal 35.0-47.0 [facility] Comment on above: Performed By: #### B MP3M, HEMDF, PHOS3, MG3 #### [address] Hemoglobin (Bld) [Mass/Vol] 14.1 g/dL Normal 11.7-16.0 [facility] Comment on above: Performed By: #### B MP3M, HEMDF, PHOS3, MG3 #### [address] Lymphocytes (Bld) [#/Vol] 0.4 10*3/uL Low 1.0-4.3 [facility] Comment on above: Performed By: #### B MP3M, HEMDF, PHOS3, MG3 #### [place] [address] [address] [place], [place] Lymphocytes/100 WBC (Bld) 2.4 % Low 20.0-40.0 [facility] Comment on above: Performed By: #### B MP3M, HEMDF, PHOS3, MG3 #### [place] [address] [address] [place], [place] MCH (RBC) [Entitic mass] 31.1 pg Normal 26.0-34.0 [facility] Comment on above: Performed By: #### B MP3M, HEMDF, PHOS3, MG3 #### [place] [address] [address] [place], [place] MCHC 32.6 % Normal 32.0-36.0 [facility] Comment on above: Performed By: #### B MP3M, HEMDF, PHOS3, MG3 #### [address] [place], [place] MCV (RBC) [Entitic vol] 95.4 fL Normal 79.0-98.0 [facility] Comment on above: Performed By: #### B MP3M, HEMDF, PHOS3, MG3 #### [place] [address] [address] [place], [place] Monocytes (Bld) [#/Vol] 1.4 10*3/uL High 0.0-0.8 [facility] Comment on above: Performed By: #### B MP3M, HEMDF, PHOS3, MG3 #### [address] Monocytes/100 WBC (Bld) 7.6 % Normal 2.0-10.0 [facility] Comment on above: Performed By: #### B MP3M, HEMDF, PHOS3, MG3 #### [place] [address] [address] [place], [place] Platelet mean volume (Bld) [Entitic vol] 7.8 fL Normal 7.4-10.4 [facility] Comment on above: Performed By: #### B MP3M, HEMDF, PHOS3, MG3 #### [place] [address] [address] [place], [place] Platelets (Bld) [#/Vol] 181 10*3/uL Normal 140-440 [facility] Comment on above: Performed By: #### B MP3M, HEMDF, PHOS3, MG3 #### [place] [address] [address] [place], [place] RBC (Bld) [#/Vol] 4.53 10*6/uL Normal 3.80-5.20 [facility] Comment on above: Performed By: #### B MP3M, HEMDF, PHOS3, MG3 #### [place] [address] [address] [place], [place] WBC (Bld) [#/Vol] 17.9 10*3/uL High 3.6-10.7 [facility] Comment on above: Performed By: #### B MP3M, HEMDF, PHOS3, MG3 #### [place] [address] [address] [place], [place] Magnesiumon 08-04-2020 Magnesium [Mass/Vol] 2.3 mg/dL Normal 1.6-2.3 [facility] Comment on above: Performed By: #### B MP3M, HEMDF, PHOS3, MG3 #### [place] [address] [address] [place], [place] Magnesium [Mass/Vol] 2.3 mg/dL 1.6 - 2 .3 mg/dL [place] Magnesium [Mass/Vol] 1.5 mg/dL Low 1.6-2.3 [facility] Comment on above: Result Comment: Slig htly hemolysed, interpret with caution. Performed By: #### B MP3M, HEMDF, PHOS3, MG3 #### [place] [address] [address] [place], [place] Otheron 08-04-2020 Test Performed by [facility], [address] [place] [address] [address] [place], [place] Surgical Pathologyon 020 Sodium [Moles/Vol] SEE BELOW [place], [place] 1 [id number] [facility] OF [facility] PATHOLOGY AND LABORATORY MEDICINE [address] [place] [address] FINAL SURGICAL PATHOLOGY REPORT NAME: DEE SHEPHERD : 1970 49 Y F BILLING NO.: [id number] LOCATION: [facility] PROCEDURE 08/03/2020 DATE: SURGEON: SUMEET STREET DO RECEIVED 08/03/2020 DATE: ATTENDING: MAGALI ANDRES M.D. REPORT DATE: 08/04/2020 COPIES TO: DIAGNOSIS: A. GALLBLADDER - CHRONIC CHOLECYSTITIS B. LIVER, WEDGE BIOPSY - MODERATE MACROVESICULAR STEATOSIS, SEE COMMENT Comment: This adequate wedge biopsy of liver shows normal architecture, as confirmed on the trichrome stain. There is no significant fibrosis. Macrovesicular steatosis involving 60% of the hepatocytes is present. There is no significant portal or lobular inflammation. Iron stain shows no stainable iron.. NM/NM Signature> AKBAR FREDERICK M.D. CLINICAL INFORMATION:Not provided SPECIMEN: (A) GALLBLADDER (B) LIVER NEEDLE OR WEDGE BIOPSY, MEDICAL GROSS DESCRIPTION: A. Gallbladder Received in formalin is a partially collapsed gallbladder measuring 9 x 3 x 1.5 cm. The serosal surface is pink dailey with adherent adipose tissue. Upon opening the specimen is filled with thick hemorrhagic mucoid content. The mucosa is hemorrhagic. The wall of the gallbladder averages 0.3 cm in thickness and contains no nodules. No calculi are identified within the cystic duct, gallbladder, or within the container. Drawing In Machine Tender sections are submitted in a single cassette. B. Liver biopsy Received in formalin is a red tissue segment 0.5 cm in greatest dimension. The specimen is entirely submitted in a single cassette. JCK/JAMARI Disclaimer: The following statement applies to all immunohistochemistry, in situ hybridization, molecular studies, and immunofluorescence testing. The use of one or more reagents in the above tests is regulated as an analyte specific reagent (ASR). These tests were developed and their performance characteristics determined by the clinical laboratories of [facility]. They have not been cleared by the US Food and Drug Administration (FDA). The FDA has determined that such clearance or approval is not necessary. All the above immunostains were performed on paraffin embedded tissue. Appropriate positive and negative controls (where applicable) were run in parallel with the patient's specimen; these controls showed expected staining pattern, with acceptable intensity of staining. Immunohistochemical assays have not been validated on decalcified tissues. Results should be interpreted with caution given the raised possibility of false negativity on decalcified specimens. Professional Performing Location: [address] [address]. DEPARTMENT OF PATHOLOGY AND LABORATORY MEDICINE [place], [place] [address] [place], [place] Add On Lab Teston 08-03-2020 Sodium [Moles/Vol] Accepted [place], [place] Comment on above: Specimen available & acceptable for analysis. Test Performed by [facility], [facility] [place] [address] [facility] [place], [place] Add on test from HISon 08-03 Add on test from HIS Accepted Normal [facility] Comment on above: Result Comment: Spec imen available & acceptable for analysis. Performed By: #### A DDON #### [facility] [address], [place] Basic Metabolic Panelon 12 Calcium [Mass/Vol] 8.7 mg/dL Normal 8.4-10.4 [facility] Comment on above: Performed By: #### B MP3M, HEMDF, PHOS3, MG3 #### [place] [address] [address], [place] Anion Gap 10 Normal [facility] Comment on above: Performed By: #### B MP3M, HEMDF, PHOS3, MG3 #### [place] [address] [address], [place] CO2 [Moles/Vol] 25 mmol/L Normal 22-30 [facility] Comment on above: Performed By: #### B MP3M, HEMDF, PHOS3, MG3 #### [place] [address] [address], [place] Creatinine [Mass/Vol] 0.93 mg/dL Normal 0.52-1.25 [facility] Comment on above: Performed By: #### B MP3M, HEMDF, PHOS3, MG3 #### [place] [address] [address], [place] GFR/1.73 sq M.predicted among blacks MDRD (S/P/Bld) [Vol rate/Area] 82.0 mL/min/{1.73_m2} Normal >60 [facility] Comment on above: Performed By: #### B MP3M, HEMDF, PHOS3, MG3 #### [place] [address] [address], [place] GFR/1.73 sq M.predicted among non-blacks MDRD (S/P/Bld) [Vol rate/Area] 70.8 mL/min/{1.73_m2} Normal >60 [facility] Comment on above: Result Comment: KDIG O guidelines provide the following GFR categories: Stage GFR(ml/min/1.73 m2) Terms G1 >=90 Normal or high G2 60-89 Mildly decreased* G3a 45-59 Mildly to moderately decreased G3b 30-44 Moderately to severely decreased G4 15-29 Severely decreased G5 <15 Kidney failure *Relative to young adult level. In the absence of evidence of kidney damage, neither GFR category G1 nor G2 fulfill the criteria for CKD. The CKD-EPI equation is validated in individuals 18 years of age and older. Currently the best equation for estimating glomerular filtration rate (GFR) from serum creatinine in children is the Bedside Corral equation. It is less accurate in patients with extremes of muscle mass, restriction of dietary protein, ingestion of creatine, extra-renal metabolism of creatinine, or treatment with medications that affect renal tubular creatinine secretion. Performed By: #### B MP3M, HEMDF, PHOS3, MG3 #### [facility] [address] [place] [address] Glucose [Mass/Vol] 108 mg/dL High 70-100 [facility] Comment on above: Performed By: #### B MP3M, HEMDF, PHOS3, MG3 #### [address] [address] Urea nitrogen [Mass/Vol] 15 mg/dL Normal 7-20 [facility] Comment on above: Performed By: #### B MP3M, HEMDF, PHOS3, MG3 #### [place] [address] [place] [address] Chloride [Moles/Vol] 102 mmol/L Normal 98-107 [facility] Comment on above: Performed By: #### B MP3M, HEMDF, PHOS3, MG3 #### [place] [address] [place] [address] Potassium [Moles/Vol] 4.0 mmol/L Normal 3.5-5.1 [facility] Comment on above: Performed By: #### B MP3M, HEMDF, PHOS3, MG3 #### [place] [address] [place] [address] Sodium [Moles/Vol] 138 mmol/L Normal 135-145 [facility] Comment on above: Performed By: #### B MP3M, HEMDF, PHOS3, MG3 #### [facility] [address] [place] [address] Anion gap [Moles/Vol] 10 mmol/L [place], [place] Calcium [Mass/Vol] 8.7 mg/dL 8.4 - 10. 4 mg/dL [place], [place] Chloride [Moles/Vol] 102 mmol/L 98 - 10 7 mmol/L [place] CO2 [Moles/Vol] 25 mmol/L 22 - 30 mmol/L [place] Creatinine [Mass/Vol] 0.93 mg/dL 0.52 - 1.25 mg/dL [place] EGFR IF NonAfrican [place] 70.8 mL/min >60 [place] Comment on above: KDIGO guidelines pro vide the following GFR categories: Stage GFR(ml/min/1.73 m2) Terms G1 >=90 Normal or high G2 60-89 Mildly decreased* G3a 45-59 Mildly to moderately decreased G3b 30-44 Moderately to severely decreased G4 15-29 Severely decreased G5 <15 Kidney failure *Relative to young adult level. In the absence of evidence of kidney damage, neither GFR category G1 nor G2 fulfill the criteria for CKD. The CKD-EPI equation is validated in individuals 18 years of age and older. Currently the best equation for estimating glomerular filtration rate (GFR) from serum creatinine in children is the Bedside Corral equation. It is less accurate in patients with extremes of muscle mass, restriction of dietary protein, ingestion of creatine, extra-renal metabolism of creatinine, or treatment with medications that affect renal tubular creatinine secretion. GFR/1.73 sq M predicted among blacks MDRD (S/P/Bld) [Vol rate/Area] 82.0 mL/min/{1.73_m2} >60 [place], [place] Glucose [Mass/Vol] 108 mg/dL High 70 - 100 mg/dL [place] Interpretation and review of laboratory results Abnormal [place] Potassium [Moles/Vol] 4.0 mmol/L 3.5 - 5.1 mmol/L [place] Sodium [Moles/Vol] 138 mmol/L 135 - 145 mmol/L [place] Urea nitrogen [Mass/Vol] 15 mg/dL 7 - 20 mg/dL [place] Test Performed by [facility], [address] [place] [address] [place], [place] CBC Auto Differentialon 12-0 Absolute Baso # 0.0 10*3/uL 0 - 0.2 10*3/uL [place] Absolute Neut # 6.4 10*3/uL 1.8 - 7 10*3/uL [place] Basophils/100 WBC (Bld) 0.2 % 0 - 2 % [place] Eosinophils (Bld) [#/Vol] 0.4 10*3/uL 0 - 0.5 10*3/uL [place] Eosinophils/100 WBC (Bld) 4.8 % 1 - 6 % [place] Erythrocyte distribution width (RBC) [Ratio] 16.1 % High 11.5 - 14.5 % [place] Granulocytes/100 WBC (Bld) 78.0 % 40 - 80 % [place] Hematocrit (Bld) [Volume fraction] 44.1 % 35 - 47 % [place] Hemoglobin (Bld) [Mass/Vol] 14.2 g/dL 11.7 - 16 g/dL [place] Interpretation and review of laboratory results Abnormal [place] Lymphocytes (Bld) [#/Vol] 0.6 10*3/uL Low 1 - 4.3 10*3/uL [place] Lymphocytes/100 WBC (Bld) 7.8 % Low 20 - 40 % [place] MCH (RBC) [Entitic mass] 30.8 pg 26 - 34 pg [place] MCHC (RBC) [Mass/Vol] 32.2 % 32 - 36 % [place] MCV (RBC) [Entitic vol] 95.6 fL 79 - 98 fL [place] Monocytes (Bld) [#/Vol] 0.8 10*3/uL 0 - 0.8 10*3/uL [place] Monocytes/100 WBC (Bld) 9.2 % 2 - 10 % [place] Platelet mean volume (Bld) [Entitic vol] 8.1 fL 7.4 - 10.4 fL [place] Platelets (Bld) [#/Vol] 168 10*3/uL 140 - 440 10*3/uL [place] RBC (Bld) [#/Vol] 4.61 10*6/uL 3.8 - 5.2 10*6/uL [place] WBC (Bld) [#/Vol] 8.2 10*3/uL 3.6 - 10.7 10*3/uL [place] Test Performed by [id number] [place] [address] HCG Qualitative, Serumon hCG Qual Negative m[IU]/mL [place], [place] Comment on above: Reference Range: NEG ATIVE Effective 12/07/2019, the reference interval for the qualitative test has been updated. This test detects hCG at concentrations of 10 mIU/mL or greater in serum. Test Performed by [id number] [place] [address] Hemogram w/ Autodiffon 08-03 Abs Baso Cnt 0.0 10*3/uL Normal 0.0-0.2 [facility] Comment on above: Performed By: #### B MP3M, HEMDF, PHOS3, MG3 #### [address] [address] Abs Neutrophile Cnt 6.4 10*3/uL Normal 1.8-7.0 [facility] Comment on above: Performed By: #### B MP3M, HEMDF, PHOS3, MG3 #### [address] [address] Basophils/100 WBC (Bld) 0.2 % Normal 0.0-2.0 [facility] Comment on above: Performed By: #### B MP3M, HEMDF, PHOS3, MG3 #### [address] [place], [place] Eosinophils (Bld) [#/Vol] 0.4 10*3/uL Normal 0.0-0.5 [facility] Comment on above: Performed By: #### B MP3M, HEMDF, PHOS3, MG3 #### [place] [address] [place], [place] Eosinophils/100 WBC (Bld) 4.8 % Normal 1.0-6.0 [facility] Comment on above: Performed By: #### B MP3M, HEMDF, PHOS3, MG3 #### [address] Erythrocyte distribution width (RBC) [Ratio] 16.1 % High 11.5-14.5 [facility] Comment on above: Performed By: #### B MP3M, HEMDF, PHOS3, MG3 #### [address] Granulocytes/100 WBC (Bld) 78.0 % Normal 40.0-80.0 [facility] Comment on above: Performed By: #### B MP3M, HEMDF, PHOS3, MG3 #### [address] Hematocrit (Bld) [Volume fraction] 44.1 % Normal 35.0-47.0 [facility] Comment on above: Performed By: #### B MP3M, HEMDF, PHOS3, MG3 #### [address] Hemoglobin (Bld) [Mass/Vol] 14.2 g/dL Normal 11.7-16.0 [facility] Comment on above: Performed By: #### B MP3M, HEMDF, PHOS3, MG3 #### [address] Lymphocytes (Bld) [#/Vol] 0.6 10*3/uL Low 1.0-4.3 [facility] Comment on above: Performed By: #### B MP3M, HEMDF, PHOS3, MG3 #### [place] [address] [address], [place] Lymphocytes/100 WBC (Bld) 7.8 % Low 20.0-40.0 [facility] Comment on above: Performed By: #### B MP3M, HEMDF, PHOS3, MG3 #### [place] [address], [place] MCH (RBC) [Entitic mass] 30.8 pg Normal 26.0-34.0 [facility] Comment on above: Performed By: #### B MP3M, HEMDF, PHOS3, MG3 #### [place] [address] [place], [place] MCHC 32.2 % Normal 32.0-36.0 [facility] Comment on above: Performed By: #### B MP3M, HEMDF, PHOS3, MG3 #### [place] [address] [place], [place] MCV (RBC) [Entitic vol] 95.6 fL Normal 79.0-98.0 [facility] Comment on above: Performed By: #### B MP3M, HEMDF, PHOS3, MG3 #### [place] [address], [place] Monocytes (Bld) [#/Vol] 0.8 10*3/uL Normal 0.0-0.8 [facility] Comment on above: Performed By: #### B MP3M, HEMDF, PHOS3, MG3 #### [place] [address], [place] Monocytes/100 WBC (Bld) 9.2 % Normal 2.0-10.0 [facility] Comment on above: Performed By: #### B MP3M, HEMDF, PHOS3, MG3 #### [place] [address], [place] Platelet mean volume (Bld) [Entitic vol] 8.1 fL Normal 7.4-10.4 [facility] Comment on above: Performed By: #### B MP3M, HEMDF, PHOS3, MG3 #### [facility] [address], [place] Platelets (Bld) [#/Vol] 168 10*3/uL Normal 140-440 [facility] Comment on above: Performed By: #### B MP3M, HEMDF, PHOS3, MG3 #### [facility] [address], [place] RBC (Bld) [#/Vol] 4.61 10*6/uL Normal 3.80-5.20 [facility] Comment on above: Performed By: #### B MP3M, HEMDF, PHOS3, MG3 #### [facility] [address], [place] WBC (Bld) [#/Vol] 8.2 10*3/uL Normal 3.6-10.7 [facility] Comment on above: Performed By: #### B MP3M, HEMDF, PHOS3, MG3 #### [place] [address] [address], [place] Hepatic Functionon 0 ALP [Catalytic activity/Vol] 117 U/L Normal 38-126 [facility] Comment on above: Performed By: #### B MP3M, HEMDF, PHOS3, MG3 #### [facility] [address], [place] ALT [Catalytic activity/Vol] 57 U/L High 0-34 [facility] Comment on above: Result Comment: The ALT test is performed by an updated assay method. Please note that the reference intervals have been changed and are now sex specific. Performed By: #### B MP3M, HEMDF, PHOS3, MG3 #### [facility] [address], [place] AST [Catalytic activity/Vol] 65 U/L High 15-46 [facility] Comment on above: Performed By: #### B MP3M, HEMDF, PHOS3, MG3 #### [facility] [address], [place] Bilirubin [Mass/Vol] 1.6 mg/dL High 0.2-1.3 [facility] Comment on above: Performed By: #### B MP3M, HEMDF, PHOS3, MG3 #### [place] [address] [address], [place] Bilirubin.indirect [Mass/Vol] 0.0 mg/dL Normal 0.0-0.3 [facility] Comment on above: Performed By: #### B MP3M, HEMDF, PHOS3, MG3 #### [place] [address], [place] Protein [Mass/Vol] 7.1 g/dL Normal 6.3-8.2 [facility] Comment on above: Performed By: #### B MP3M, HEMDF, PHOS3, MG3 #### [place] [address], [place] Albumin [Mass/Vol] 3.8 g/dL Normal 3.5-5.0 [facility] Comment on above: Performed By: #### B MP3M, HEMDF, PHOS3, MG3 #### [place] [address], [place] Hepatic Function Panelon Albumin [Mass/Vol] 3.8 g/dL 3.5 - 5 g/dL [place], [place] ALP [Catalytic activity/Vol] 117 U/L 38 - 126 U/L [place] ALT [Catalytic activity/Vol] 57 U/L High 0 - 34 U/L [place] Comment on above: The ALT test is perf ormed by an updated assay method. Please note that the reference intervals have been changed and are now sex specific. AST [Catalytic activity/Vol] 65 U/L High 15 - 46 U/L [place] Bilirubin Ql (U) 1.6 mg/dL High 0.2 - 1.3 mg/dL [place] Bilirubin.direct [Mass/Vol] 0.0 mg/dL 0 - 0.3 mg/dL [place] Protein [Mass/Vol] 7.1 g/dL 6.3 - 8.2 g/dL [place] Magnesiumon 08-03-2020 Interpretation and review of laboratory results Abnormal [place] Magnesium [Mass/Vol] 1.5 mg/dL Low 1.6 - 2 .3 mg/dL [place], [place] Comment on above: Slightly hemolysed, interpret with caution. Test Performed by [facility], [address] [place] [id number] [place] [address] Magnesium [Mass/Vol] 1.4 mg/dL Low 1.6-2.3 [facility] Comment on above: Performed By: #### B MP3M, HEMDF, PHOS3, MG3 #### [address] [address] Magnesium [Mass/Vol] 1.4 mg/dL Low 1.6 - 2 .3 mg/dL [place] Otheron 08-03-2020 Interpretation and review of laboratory results Abnormal [place] Test Performed by [facility], [address] [place] [id number] [place] [address] [facility] Surgical Pathology [id number] [facility] PATHOLOGY AND LABORATORY MEDICINE [address] [place] [address] FINAL SURGICAL PATHOLOGY REPORT NAME: DEE SHEPHERD : 1970 49 Y F BILLING NO.: [id number] LOCATION: [address] PROCEDURE 08/03/2020 DATE: SURGEON: DO MADIHA RANGEL 08/03/2020 DATE: ATTENDING: MAGALI ANDRES M.D. REPORT DATE: 08/04/2020 COPIES TO: DIAGNOSIS: A. GALLBLADDER - CHRONIC CHOLECYSTITIS B. LIVER, WEDGE BIOPSY - MODERATE MACROVESICULAR STEATOSIS, SEE COMMENT Comment: This adequate wedge biopsy of liver shows normal architecture, as confirmed on the trichrome stain. There is no significant fibrosis. Macrovesicular steatosis involving 60% of the hepatocytes is present. There is no significant portal or lobular inflammation. Iron stain shows no stainable iron.. NM/NM Signature> AKBAR FREDERICK M.D. CLINICAL INFORMATION:Not provided SPECIMEN: (A) GALLBLADDER (B) LIVER NEEDLE OR WEDGE BIOPSY, MEDICAL GROSS DESCRIPTION: A. Gallbladder Received in formalin is a partially collapsed gallbladder measuring 9 x 3 x 1.5 cm. The serosal surface is pink dailey with adherent adipose tissue. Upon opening the specimen is filled with thick hemorrhagic mucoid content. The mucosa is hemorrhagic. The wall of the gallbladder averages 0.3 cm in thickness and contains no nodules. No calculi are identified within the cystic duct, gallbladder, or within the container. Drawing In Machine Tender sections are submitted in a single cassette. B. Liver biopsy Received in formalin is a red tissue segment 0.5 cm in greatest dimension. The specimen is entirely submitted in a single cassette. JCK/JAMARI Disclaimer: The following statement applies to all immunohistochemistry, in situ hybridization, molecular studies, and immunofluorescence testing. The use of one or more reagents in the above tests is regulated as an analyte specific reagent (ASR). These tests were developed and their performance characteristics determined by the clinical laboratories of [facility]. They have not been cleared by the US Food and Drug Administration (FDA). The FDA has determined that such clearance or approval is not necessary. All the above immunostains were performed on paraffin embedded tissue. Appropriate positive and negative controls (where applicable) were run in parallel with the patient's specimen; these controls showed expected staining pattern, with acceptable intensity of staining. Immunohistochemical assays have not been validated on decalcified tissues. Results should be interpreted with caution given the raised possibility of false negativity on decalcified specimens. Professional Performing Location: [address] [address]. DEPARTMENT OF PATHOLOGY AND LABORATORY MEDICINE [place], [place] [address] Normal [facility] TSH without Reflexon 020 TSH Qn 3.347 u[IU]/mL 0.465 - 4.68 u[IU]/mL [place], [place] Test Performed by [place] [address] [place], [place] [id number] [place] [address] Thyroid Stim. Hormoneon Thyroid Stim. Hormone 3.347 u[IU]/mL Normal 0.465-4.68 0 [facility] Comment on above: Performed By: #### B MP3M, HEMDF, PHOS3, MG3 #### [address] [address] hCG Qual [place] 08-03-2020 hCG Qual Preg Negative Normal [facility] Comment on above: Result Comment: Refe rence Range: NEGATIVE Effective 12/07/2019, the reference interval for the qualitative test has been updated. This test detects hCG at concentrations of 10 mIU/mL or greater in serum. Performed By: #### B MP3M, HEMDF, PHOS3, MG3 #### [address] [address] [address] CHEST W CONTRASTon 2019 Patient Name: DEE SHEPHERD ---CT--- Exam Date/Time 08/02/2020 03:08:[address] Chest w/ Contrast Ordering Physician DO DO ELISABETH Accession Number [id number] CPT4 Codes 87714 (), Q9967 (CT ISOVUE 370MG/[id number]& 1) Reason For Exam fluid collection in mediastinum, hiatal hernia, evaluate for leak Report CLINICAL HISTORY: fluid collection in mediastinum, hiatal hernia, evaluate for leak COMPARISON: Fluid collection in mediastinum, hiatal hernia Technique: Axial CT images were obtained of the chest. Images were reformatted in coronal and sagittal projections. Intravenous contrast: 75 mL Isovue 370 FINDINGS: Lungs: Scattered linear atelectasis and scarring is seen throughout the lungs. No sizable nodules or masses identified. No acute consolidative process. Tracheobronchial tree remains patent. Pleura: No pleural thickening or effusion Heart/Great vessels: The heart is mildly enlarged with no pericardial effusion. There is mild coronary artery calcification. The aorta and pulmonary arteries are normal in caliber. Mediastinum/Mayra: A moderate to large hiatal hernia is present. A 7.9 x 3.9 x 9.2 cm irregularly shaped complex fluid collection without clear rim enhancement is seen within the right mediastinum which appears to arise or at least abut the mid to distal esophagus. No pneumomediastinum is seen. No enlarged mediastinal, hilar, or axillary lymph nodes. Visualized Upper Abdomen: Hyperdense contents are seen within the gallbladder, likely excretion of contrast from prior study. No other significant abnormalities. Chest wall/Lower neck: Thyroid is normal in appearance. Bones: No suspicious osseous lesions. IMPRESSION: 1. 9.2 cm fluid collection in the mediastinum measuring just above simple fluid attenuation which appears to at least abut if not arise from the mid to distal esophagus. Etiology is uncertain given lack of oral contrast or air within this collection which would be expected in the setting of Boerhaave syndrome. Findings may still relate to esophageal rupture or rupture of paraesophageal cyst among other possibilities. 2. Moderate to large hiatal hernia. 3. Mild cardiomegaly. Critical findings discussed with Dr. Easley at time of interpretation. Report Dictated on --- Final --- Dictated: 08/02/2020 4:03 am Dictating Physician: MD LEE JAMES Signed Date and Time: 08/02/2020 4:17 am Signed by: MD LEE JAMES Transcribed Date and Time: 08/02/2020 4:03 [facility] [place] [place] Incoming Radiology Results From [facility] - 08/02/2020 4:19 AM EST Patient Name: DEE SHEPHERD ---CT--- Exam Date/Time 08/02/2020 03:08:[address] Chest w/ Contrast Ordering Physician DO DO ELISABETH Accession Number [id number] CPT4 Codes 94100 (), Q9967 (CT ISOVUE 370MG/[id number]& [id number]) Reason For Exam fluid collection in mediastinum, hiatal hernia, evaluate for leak Report CLINICAL HISTORY: fluid collection in mediastinum, hiatal hernia, evaluate for leak COMPARISON: Fluid collection in mediastinum, hiatal hernia Technique: Axial CT images were obtained of the chest. Images were reformatted in coronal and sagittal projections. Intravenous contrast: 75 mL Isovue 370 FINDINGS: Lungs: Scattered linear atelectasis and scarring is seen throughout the lungs. No sizable nodules or masses identified. No acute consolidative process. Tracheobronchial tree remains patent. Pleura: No pleural thickening or effusion Heart/Great vessels: The heart is mildly enlarged with no pericardial effusion. There is mild coronary artery calcification. The aorta and pulmonary arteries are normal in caliber. Mediastinum/Mayra: A moderate to large hiatal hernia is present. A 7.9 x 3.9 x 9.2 cm irregularly shaped complex fluid collection without clear rim enhancement is seen within the right mediastinum which appears to arise or at least abut the mid to distal esophagus. No pneumomediastinum is seen. No enlarged mediastinal, hilar, or axillary lymph nodes. Visualized Upper Abdomen: Hyperdense contents are seen within the gallbladder, likely excretion of contrast from prior study. No other significant abnormalities. Chest wall/Lower neck: Thyroid is normal in appearance. Bones: No suspicious osseous lesions. IMPRESSION: 1. 9.2 cm fluid collection in the mediastinum measuring just above simple fluid attenuation which appears to at least abut if not arise from the mid to distal esophagus. Etiology is uncertain given lack of oral contrast or air within this collection which would be expected in the setting of Boerhaave syndrome. Findings may still relate to esophageal rupture or rupture of paraesophageal cyst among other possibilities. 2. Moderate to large hiatal hernia. 3. Mild cardiomegaly. Critical findings discussed with Dr. Easley at time of interpretation. Report Dictated on --- Final --- Dictated: 08/02/2020 4:03 am Dictating Physician: MD LEE JAMES Signed Date and Time: 08/02/2020 4:17 am Signed by: MD LEE JAMES Transcribed Date and Time: 08/02/2020 4:03 [place] CT Chest w/ Contraston 08-02 CT Chest w/ Contrast Patient Name: DEE MITCHELL CT Exam Date/Time 08/02/2020 03:08:[address] Chest w/ Contrast Ordering Physician DO DO ELISABETH Accession Number [id number] CPT4 Codes 63938 (), Q9967 (CT ISOVUE 370MG/[id number] dMLand1) Reason For Exam fluid collection in mediastinum, hiatal hernia, evaluate for leak Report CLINICAL HISTORY: fluid collection in mediastinum, hiatal hernia, evaluate for leak COMPARISON: Fluid collection in mediastinum, hiatal hernia Technique: Axial CT images were obtained of the chest. Images were reformatted in coronal and sagittal projections. Intravenous contrast: 75 mL Isovue 370 FINDINGS: Lungs: Scattered linear atelectasis and scarring is seen throughout the lungs. No sizable nodules or masses identified. No acute consolidative process. Tracheobronchial tree remains patent. Pleura: No pleural thickening or effusion Heart/Great vessels: The heart is mildly enlarged with no pericardial effusion. There is mild coronary artery calcification. The aorta and pulmonary arteries are normal in caliber. Mediastinum/Mayra: A moderate to large hiatal hernia is present. A 7.9 x 3.9 x 9.2 cm irregularly shaped complex fluid collection without clear rim enhancement is seen within the right mediastinum which appears to arise or at least abut the mid to distal esophagus. No pneumomediastinum is seen. No enlarged mediastinal, hilar, or axillary lymph nodes. Visualized Upper Abdomen: Hyperdense contents are seen within the gallbladder, likely excretion of contrast from prior study. No other significant abnormalities. Chest wall/Lower neck: Thyroid is normal in appearance. Bones: No suspicious osseous lesions. IMPRESSION: 1. 9.2 cm fluid collection in the mediastinum measuring just above simple fluid attenuation which appears to at least abut if not arise from the mid to distal esophagus. Etiology is uncertain given lack of oral contrast or air within this collection which would be expected in the setting of Boerhaave syndrome. Findings may still relate to esophageal rupture or rupture of paraesophageal cyst among other possibilities. 2. Moderate to large hiatal hernia. 3. Mild cardiomegaly. Critical findings discussed with Dr. Easley at time of interpretation. Report Dictated on Final Dictated: 08/02/2020 4:03 am Dictating Physician: MD LEE JAMES Signed Date and Time: 08/02/2020 4:17 am Signed by: MD LEE JAMES Transcribed Date and Time: 08/02/2020 4:03 Normal [facility] ED Provider Noteon 0 ED Provider Note [facility] EMERGENCY DEPARTMENT ENCOUNTER Pt Name: Dee Shepherd Birthdate 1970 Date of evaluation: 08/01/2020 Provider: Magali Easley MD CHIEF COMPLAINT Chief Complaint Patient presents with ? Abdominal Pain Patient stated she started having ABD pain friday on the right side. Patient states that she is distended. Patient has a history of hernias. Patient was sent here from [facility] for fluid in the abdomen and further evaulation. HISTORY OF PRESENT ILLNESS (Location/Symptom, Timing/Onset,Context/Set ting, Quality, Duration, Modifying Factors, Severity) Note limiting factors. HPI Dee Sehpherd is a 49 y.o. female who presents to the emergency department patient presents with abdominal pain. Location is right upper quadrant. Was seen at an outside emergency department for this and was found to have a computed tomography scan concerning for free fluid outside of a hiatal hernia. Was transferred here for surgical evaluation. Onset of her pain as days ago. Duration constant since onset. Location right side of the abdomen. Severity is moderate severe. Nursing Notes were reviewed. REVIEW OFSYSTEMS (2+ for level 4; 10+ for level 5) Review of Systems Constitutional: Negative for chills and fever. HENT: Negative for congestion and rhinorrhea. Eyes: Negative for discharge and redness. Respiratory: Negative for chest tightness and shortness of breath. Cardiovascular: Negative for chest pain and palpitations. Gastrointestinal: Positive for abdominal pain and nausea. Negative for diarrhea and vomiting. Genitourinary: Negative for dysuria and hematuria. Musculoskeletal: Negative for arthralgias and joint swelling. Skin: Negative for color change and rash. Neurological: Negative for light-headedness and headaches. Psychiatric/Behavioral: Negative for agitation and behavioral problems. PAST MEDICAL HISTORY Past Medical History: Diagnosis Date ? COPD (chronic obstructive pulmonary disease) (HCC) ? Hypertension SURGICAL HISTORY History reviewed. No pertinent surgical history. CURRENT MEDICATIONS Previous Medications No medications on file ALLERGIES Doxycycline; Vicodin [hydrocodone-acetaminoph en]; and Tramadol FAMILY HISTORY History reviewed. No pertinent family history. SOCIAL HISTORY Social History Socioeconomic History ? Marital status: Spouse name: None ? Number of children: None ? Years of education: None ? Highest education level: None Occupational History ? None Social Needs ? Financial resource strain: None ? Food insecurity Worry: None Inability: None ? Transportation needs Medical: None Non-medical: None Tobacco Use ? Smoking status: Never Smoker ? Smokeless tobacco: Never Used Substance and Sexual Activity ? Alcohol use: Yes Comment: 1/2 bottle of wild turkey ? Drug use: Yes Types: Marijuana Comment: occasionally ? Sexual activity: None Lifestyle ? Physical activity Days per week: None Minutes per session: None ? Stress: None Relationships ? Social connections Talks on phone: None Gets together: None Attends oriental orthodox service: None Active member of club or organization: None Attends meetings of clubs or organizations: None Relationship status: None ? Intimate partner violence Fear of current or ex partner: None Emotionally abused: None Physically abused: None Forced sexual activity: None Other Topics Concern ? None Social History Narrative ? None SCREENINGS PHYSICAL EXAM (up to 7 for level 4, 8 or more for level 5) ED Triage Vitals [08/01/20 2306] BP Temp Temp Source Pulse Resp SpO2 Height Weight (!) 174/124 98.6 ?F (37 ?C) Oral 109 18 93 % 5' 7 (1.702 m) 265 lb (120.2 kg) Physical Exam Constitutional: General: She is not in acute distress. Appearance: She is well-developed. She is not diaphoretic. HENT: Head: Normocephalic and atraumatic. Mouth/Throat: Mouth: Mucous membranes are moist. Pharynx: No posterior oropharyngeal erythema. Eyes: Extraocular Movements: Extraocular movements intact. Conjunctiva/sclera: Conjunctivae normal. Neck: Musculoskeletal: Normal range of motion and neck supple. Trachea: No tracheal deviation. Cardiovascular: Rate and Rhythm: Regular rhythm. Tachycardia present. Pulmonary: Effort: Pulmonary effort is normal. No respiratory distress. Abdominal: Palpations: Abdomen is soft. Tenderness: There is abdominal tenderness in the right upper quadrant. Musculoskeletal: Normal range of motion. General: No deformity. Skin: General: Skin is warm and dry. Neurological: General: No focal deficit present. Mental Status: She is alert and oriented to person, place, and time. Psychiatric: Mood and Affect: Mood normal. Behavior: Behavior normal. DIAGNOSTIC RESULTS EKG (Per Emergency Physician): RADIOLOGY (Per Emergency Physician): Interpretation per the Radiologist below, (more content not included)... Normal [facility] ED Provider Note Emergency Department Encounter Location: [facility] EMERGENCY DEPT Patient: Dee Shepherd : 1970 Date of evaluation: 08/01/2020 ED Provider: De Jimenez MD 0700 Dee Shepherd was checked out to me by Dr Easley. Please see his/her initial documentation for details of the patient's initial ED presentation, physical exam and completed studies. In brief, Dee Shepherd is a 49 y.o. female that presented to the emergency department with abdominal pain, some concern for esophageal tear versus cyst/hiatal hernia, cardiothoracic surgeon overnight says does not operate on esophagus, the cardiothoracic surgeon [address] Lennon who will evaluate the patient I have reviewed and interpreted all of the currently available lab results and diagnostics from this visit: Results for orders placed or performed during the hospital encounter of 08/01/20 LACTIC ACID, PLASMA Result Value Ref Range Lactic Acid 1.1 0.7 - 2.0 mmol/L Ct Chest W Contrast Result Date: 08/02/2020 Patient Name: DEE SHEPHERD ---CT--- Exam Date/Time 08/02/2020 03:08:[address] Chest w/ Contrast Ordering Physician DO DO ELISABETH Accession Number [id number] CPT4 Codes 61540 (), Q9967 (CT ISOVUE 370MG/ML&[id number]&ML& 1) Reason For Exam fluid collection in mediastinum, hiatal hernia, evaluate for leak Report CLINICAL HISTORY: fluid collection in mediastinum, hiatal hernia, evaluate for leak COMPARISON: Fluid collection in mediastinum, hiatal hernia Technique: Axial CT images were obtained of the chest. Images were reformatted in coronal and sagittal projections. Intravenous contrast: 75 mL Isovue 370 FINDINGS: Lungs: Scattered linear atelectasis and scarring is seen throughout the lungs. No sizable nodules or masses identified. No acute consolidative process. Tracheobronchial tree remains patent. Pleura: No pleural thickening or effusion Heart/Great vessels: The heart is mildly enlarged with no pericardial effusion. There is mild coronary artery calcification. The aorta and pulmonary arteries are normal in caliber. Mediastinum/Mayra: A moderate to large hiatal hernia is present. A 7.9 x 3.9 x 9.2 cm irregularly shaped complex fluid collection without clear rim enhancement is seen within the right mediastinum which appears to arise or at least abut the mid to distal esophagus. No pneumomediastinum is seen. No enlarged mediastinal, hilar, or axillary lymph nodes. Visualized Upper Abdomen: Hyperdense contents are seen within the gallbladder, likely excretion of contrast from prior study. No other significant abnormalities. Chest wall/Lower neck: Thyroid is normal in appearance. Bones: No suspicious osseous lesions. IMPRESSION: 1. 9.2 cm fluid collection in the mediastinum measuring just above simple fluid attenuation which appears to at least abut if not arise from the mid to distal esophagus. Etiology is uncertain given lack of oral contrast or air within this collection which would be expected in the setting of Boerhaave syndrome. Findings may still relate to esophageal rupture or rupture of paraesophageal cyst among other possibilities. 2. Moderate to large hiatal hernia. 3. Mild cardiomegaly. Critical findings discussed with Dr. Easley at time of interpretation. Report Dictated on --- Final --- Dictated: 08/02/2020 4:03 am Dictating Physician: MD LEE JAMES Signed Date and Time: 08/02/2020 4:17 am Signed by: MD LEE JAMES Transcribed Date and Time: 08/02/2020 4:03 Us Abdomen Limited Specify Organ? Gallbladder Result Date: 08/02/2020 Patient Name: DEE SHEPHERD ---Ultrasound--- Exam Date/Time 08/02/2020 01:35:00 EST Exam US Abdomen Limited Ordering Physician DO EDUARDO ONDINA Accession Number [id number] CPT4 Codes 11052 () Reason For Exam RUQ pain, evaluate gallbladder Addendum Impression point #2: Exam suggestive of hepatic steatosis. Report Dictated on ---Final Addendum--- Dictated: 08/02/2020 2:42 am Addendum Dictating Physician: MD LEE JAMES Signed Date and Time: 08/02/2020 2:42 am Signed by: MD LEE JAMES Transcribed Date and Time: 08/02/2020 2:42 Report Exam type: Ultrasound abdomen RUQ CLINICAL HISTORY:RUQ pain, evaluate gallbladder COMPARISON: None Technique: Grayscale sonographic images were obtained of the right upper quadrant. Color Doppler was utilized. FINDINGS: Liver: Diffusely increased echogenicity of the liver with decreased through transmission. No focal lesions identified. No intra or extrahepatic biliary ductal dilatation is identified. The common bile duct is appropriate in size for the patient's age and measures six mm in diameter. Gallbladder: The gallbladder is unremarkable with no gallbladder wall thickening, pericholecystic fluid, or gallstones. There was a negative sonographic Daniels's sign. Right Kidn (more content not included)... Normal [facility] Hepatic Functionon 0 ALT [Catalytic activity/Vol] 68 U/L High 0-34 [facility] Comment on above: Result Comment: The ALT test is performed by an updated assay method. Please note that the reference intervals have been changed and are now sex specific. Performed By: #### B MP3M, HEMDF, PHOS3, MG3 #### [facility] [address] [place] [address] ALP [Catalytic activity/Vol] 132 U/L High 38-126 [facility] Comment on above: Performed By: #### B MP3M, HEMDF, PHOS3, MG3 #### [facility] [address] [place] [address] AST [Catalytic activity/Vol] 61 U/L High 15-46 [facility] Comment on above: Performed By: #### B MP3M, HEMDF, PHOS3, MG3 #### [facility] [address] [place], [place] Bilirubin [Mass/Vol] 2.0 mg/dL High 0.2-1.3 [facility] Comment on above: Performed By: #### B MP3M, HEMDF, PHOS3, MG3 #### [facility] [address], [place] Bilirubin.indirect [Mass/Vol] 0.0 mg/dL Normal 0.0-0.3 [facility] Comment on above: Performed By: #### B MP3M, HEMDF, PHOS3, MG3 #### [place] [address] [address], [place] Protein [Mass/Vol] 7.5 g/dL Normal 6.3-8.2 [facility] Comment on above: Performed By: #### B MP3M, HEMDF, PHOS3, MG3 #### [place] [address] [address] [place], [place] Albumin [Mass/Vol] 4.1 g/dL Normal 3.5-5.0 [facility] Comment on above: Performed By: #### B MP3M, HEMDF, PHOS3, MG3 #### [place] [address] [address] [place], [place] Hepatic Function Panelon Albumin [Mass/Vol] 4.1 g/dL 3.5 - 5 g/dL [place], [place] ALP [Catalytic activity/Vol] 132 U/L High 38 - 126 U/L [place], [place] ALT [Catalytic activity/Vol] 68 U/L High 0 - 34 U/L [place] Comment on above: The ALT test is perf ormed by an updated assay method. Please note that the reference intervals have been changed and are now sex specific. AST [Catalytic activity/Vol] 61 U/L High 15 - 46 U/L [place], [place] Bilirubin Ql (U) 2.0 mg/dL High 0.2 - 1.3 mg/dL [place] Bilirubin.direct [Mass/Vol] 0.0 mg/dL 0 - 0.3 mg/dL [place], [place] Interpretation and review of laboratory results Abnormal [place], [place] Protein [Mass/Vol] 7.5 g/dL 6.3 - 8.2 g/dL [place] Test Performed by [facility], [address] [place] [id number] [place], [place] LACTIC ACID, PLASMAon 2019 Lactate [Moles/Vol] 1.1 mmol/L 0.7 - 2 mmol/L [place], [place] Test Performed by [facility], [address] [place] [address] [place], [place] Lactic Acidon 08-02-2020 Lactate [Moles/Vol] 1.1 mmol/L Normal 0.7-2.0 [facility] Comment on above: Performed By: #### B MP3M, HEMDF, PHOS3, MG3 #### [address] [address] Metabolic Panelon 08-02-2020 Sodium [Moles/Vol] Negative [place], [place] NM HEPATOBILIARY SCAN W EJEC TION FRACTION W/ CCKon 08-02-2020 [place], [facility] Incoming Radiology Results From [facility] - 08/02/2020 4:42 PM EST Patient Name: DEE SHEPHERD ---Nuc Med--- Exam Date/Time 08/02/2020 16:21:42 EST Exam NM Hepatobiliary Duct System Imaging Ordering Physician MD FAGAN LORNA Accession Number [id number] CPT4 Codes 83409 () Reason For Exam RUQ pain Report Indication: Right upper quadrant pain. The patient was injected with 3.5 mCi of tech 99m Choletec and serial images of the right upper quadrant were obtained for 1 hour. There is prompt uptake of radiotracer by the liver. The small bowel is visualized by one hour. Gallbladder was not visualized during the first hour of the study. The patient was then injected with a booster dose of 1 mCi of tech 99m Choletec. The patient returned to the department for 4 hour delayed images. Gallbladder is not definitively visualized on the 4 hour delayed images. Impression: 1. No definitive gallbladder visualization at 4 hours. These findings are suspicious for cystic duct obstruction. However, false positive studies may be seen in patients with gallbladder sludge which increases the intraluminal pressure of the gallbladder and does not allow the radiotracer to enter. 2. No evidence of common duct obstruction. Report Dictated on --- Final --- Dictated: 08/02/2020 1:08 pm Dictating Physician: DO REESE ANTHONY Signed Date and Time: 08/02/2020 4:41 pm Signed by: DO REESE ANTHONY Transcribed Date and Time: 08/02/2020 1:08 [place], [place] Patient Name: DEE SHEPHERD ---Nuc Med--- Exam Date/Time 08/02/2020 16:21:42 EST Exam NM Hepatobiliary Duct System Imaging Ordering Physician MD FAGAN LORNA Accession Number [id number] CPT4 Codes 84195 () Reason For Exam RUQ pain Report Indication: Right upper quadrant pain. The patient was injected with 3.5 mCi of tech 99m Choletec and serial images of the right upper quadrant were obtained for 1 hour. There is prompt uptake of radiotracer by the liver. The small bowel is visualized by one hour. Gallbladder was not visualized during the first hour of the study. The patient was then injected with a booster dose of 1 mCi of tech 99m Choletec. The patient returned to the department for 4 hour delayed images. Gallbladder is not definitively visualized on the 4 hour delayed images. Impression: 1. No definitive gallbladder visualization at 4 hours. These findings are suspicious for cystic duct obstruction. However, false positive studies may be seen in patients with gallbladder sludge which increases the intraluminal pressure of the gallbladder and does not allow the radiotracer to enter. 2. No evidence of common duct obstruction. Report Dictated on --- Final --- Dictated: 08/02/2020 1:08 pm Dictating Physician: DO REESE ANTHONY Signed Date and Time: 08/02/2020 4:41 pm Signed by: DO REESE ANTHONY Transcribed Date and Time: 08/02/2020 1:08 [place] NM Hepatobiliary System w/ P jacobson 08-02-2020 NM Hepatobiliary System w/ Pharm Patient Name: DEE SHEPHERD Nuc Med Exam Date/Time 08/02/2020 16:21:42 EST Exam NM Hepatobiliary Duct System Imaging Ordering Physician MD FAGAN LORNA Accession Number [id number] CPT4 Codes 08685 () Reason For Exam RUQ pain Report Indication: Right upper quadrant pain. The patient was injected with 3.5 mCi of tech 99m Choletec and serial images of the right upper quadrant were obtained for 1 hour. There is prompt uptake of radiotracer by the liver. The small bowel is visualized by one hour. Gallbladder was not visualized during the first hour of the study. The patient was then injected with a booster dose of 1 mCi of tech 99m Choletec. The patient returned to the department for 4 hour delayed images. Gallbladder is not definitively visualized on the 4 hour delayed images. Impression: 1. No definitive gallbladder visualization at 4 hours. These findings are suspicious for cystic duct obstruction. However, false positive studies may be seen in patients with gallbladder sludge which increases the intraluminal pressure of the gallbladder and does not allow the radiotracer to enter. 2. No evidence of common duct obstruction. Report Dictated on Final Dictated: 08/02/2020 1:08 pm Dictating Physician: DO REESE ANTHONY Signed Date and Time: 08/02/2020 4:41 pm Signed by: DO REESE ANTHONY Transcribed Date and Time: 08/02/2020 1:08 Normal [facility] PROTIME/INR & PTTon 08-02-20 20 aPTT Coag (Bld) [Time] 25.1 s 20 - 30.5 s M [place], [place] Comment on above: NOTE: The therapeuti c time for Heparin anticoagulation, based on Xa activity inhibition, is an APTT of 46-80 seconds. INR Coag (PPP) [Relative time] 1.1 {INR} [place], [place] Comment on above: Recommended Anticoag ulant Therapy: SEE BELOW ----- INR of 2.0 - 3.0 : - Prophylaxis of Venous Thrombosis (high-risk surgery) - Treatment of Venous Thrombosis - Treatment of Pulmonary Embolism (Includes tissue heart valves, Acute Myocardial Infarction to prevent systemic embolism, Valvular Heart Disease, and Atrial Fibrillation) ----- INR of 2.5 - 3.5 : - Mechanical Prosthetic Valves (high risk) - If oral anticoagulant therapy is used to prevent Myocardial Infarction PT Coag (PPP) [Time] 11.9 s 9 - 12 s [place], [place] Comment on above: . Test Performed by [facility], [address] [place] [address] Protime AND APTTon 0 aPTT Coag (Bld) [Time] 25.1 s Normal 20.0-30.5 [facility] Comment on above: Result Comment: NOTE : The therapeutic time for Heparin anticoagulation, based on Xa activity inhibition, is an APTT of 46-80 seconds. Performed By: #### B MP3M, HEMDF, PHOS3, MG3 #### [address] INR 1.1 Normal 0.9-1.1 [facility] Comment on above: Result Comment: George mmended Anticoagulant Therapy: SEE BELOW ----- INR of 2.0 - 3.0 : - Prophylaxis of Venous Thrombosis (high-risk surgery) - Treatment of Venous Thrombosis - Treatment of Pulmonary Embolism (Includes tissue heart valves, Acute Myocardial Infarction to prevent systemic embolism, Valvular Heart Disease, and Atrial Fibrillation) ----- INR of 2.5 - 3.5 : - Mechanical Prosthetic Valves (high risk) - If oral anticoagulant therapy is used to prevent Myocardial Infarction Performed By: #### B MP3M, HEMDF, PHOS3, MG3 #### [facility] [address] [place], [place] PT Coag (PPP) [Time] 11.9 s Normal 9.0-12.0 [facility] Comment on above: Result Comment: . Performed By: #### B MP3M, HEMDF, PHOS3, MG3 #### [facility] [address] [place] [address] TS GELon 08-02-2020 TS GEL ABO Group: A Rh, Gel: NEG Antibody Screen Gel: NEG Normal [facility] Comment on above: Performed By: #### T SGL #### [facility] [address] [place] [address] [facility] TYPE AND SCREENon 08-02-2020 Sodium [Moles/Vol] A [facility], [place] Test Performed by [facility], [address] [facility] [place], [place] [address] [facility], [place] US ABDOMEN LIMITED Specify o rgan? GALLBLADDERon 08-02-2020 [place], [facility] Incoming Radiology Results From [facility] - 08/02/2020 2:44 AM EST Patient Name: DEE SHEPHERD ---Ultrasound--- Exam Date/Time 08/02/2020 01:35:00 EST Exam US Abdomen Limited Ordering Physician DO DO ELISABETH Accession Number [id number] CPT4 Codes 86303 () Reason For Exam RUQ pain, evaluate gallbladder Addendum Impression point #2: Exam suggestive of hepatic steatosis. Report Dictated on ---Final Addendum--- Dictated: 08/02/2020 2:42 am Addendum Dictating Physician: MD LEE JAMES Signed Date and Time: 08/02/2020 2:42 am Signed by: MD LEE JAMES Transcribed Date and Time: 08/02/2020 2:42 Report Exam type: Ultrasound abdomen RUQ CLINICAL HISTORY:RUQ pain, evaluate gallbladder COMPARISON: None Technique: Grayscale sonographic images were obtained of the right upper quadrant. Color Doppler was utilized. FINDINGS: Liver: Diffusely increased echogenicity of the liver with decreased through transmission. No focal lesions identified. No intra or extrahepatic biliary ductal dilatation is identified. The common bile duct is appropriate in size for the patient's age and measures six mm in diameter. Gallbladder: The gallbladder is unremarkable with no gallbladder wall thickening, pericholecystic fluid, or gallstones. There was a negative sonographic Daniels's sign. Right Kidney: The right kidney is normal in contour, echogenicity, and size with no hydronephrosis or shadowing renal calculi. Overall, the right kidney measures 10.1 cm in length. Additional structures: Visualized pancreas is normal in appearance. Part of the pancreatic head and tail are obscured. IMPRESSION: No cholelithiasis or evidence of acute cholecystitis. Report Dictated on --- Final --- Dictated: 08/02/2020 2:06 am Dictating Physician: MD LEE JAMES Signed Date and Time: 08/02/2020 2:17 am Signed by: MD LEE JAMES Transcribed Date and Time: 08/02/2020 2:08 [place], [place] Patient Name: DEE SHEPHERD ---Ultrasound--- Exam Date/Time 08/02/2020 01:35:00 EST Exam US Abdomen Limited Ordering Physician DO DO ELISABETH Accession Number [id number] CPT4 Codes 14081 () Reason For Exam RUQ pain, evaluate gallbladder Addendum Impression point #2: Exam suggestive of hepatic steatosis. Report Dictated on ---Final Addendum--- Dictated: 08/02/2020 2:42 am Addendum Dictating Physician: MD LEE JAMES Signed Date and Time: 08/02/2020 2:42 am Signed by: MD LEE JAMES Transcribed Date and Time: 08/02/2020 2:42 Report Exam type: Ultrasound abdomen RUQ CLINICAL HISTORY:RUQ pain, evaluate gallbladder COMPARISON: None Technique: Grayscale sonographic images were obtained of the right upper quadrant. Color Doppler was utilized. FINDINGS: Liver: Diffusely increased echogenicity of the liver with decreased through transmission. No focal lesions identified. No intra or extrahepatic biliary ductal dilatation is identified. The common bile duct is appropriate in size for the patient's age and measures six mm in diameter. Gallbladder: The gallbladder is unremarkable with no gallbladder wall thickening, pericholecystic fluid, or gallstones. There was a negative sonographic Daniels's sign. Right Kidney: The right kidney is normal in contour, echogenicity, and size with no hydronephrosis or shadowing renal calculi. Overall, the right kidney measures 10.1 cm in length. Additional structures: Visualized pancreas is normal in appearance. Part of the pancreatic head and tail are obscured. IMPRESSION: No cholelithiasis or evidence of acute cholecystitis. Report Dictated on --- Final --- Dictated: 08/02/2020 2:06 am Dictating Physician: MD LEE JAMES Signed Date and Time: 08/02/2020 2:17 am Signed by: MD LEE JAMES Transcribed Date and Time: 08/02/2020 2:08 [place], [place] US Abdomen Limitedon 020 US Abdomen Limited Patient Name: DEE SHEPHERD Ultrasound Exam Date/Time 08/02/2020 01:35:00 EST Exam US Abdomen Limited Ordering Physician DO OD ELISABETH Accession Number [id number] CPT4 Codes 10633 () Reason For Exam RUQ pain, evaluate gallbladder Addendum Impression point #2: Exam suggestive of hepatic steatosis. Report Dictated on Final Addendum Dictated: 08/02/2020 2:42 am Addendum Dictating Physician: MD LEE JAMES Signed Date and Time: 08/02/2020 2:42 am Signed by: MD LEE JAMES Transcribed Date and Time: 08/02/2020 2:42 Report Exam type: Ultrasound abdomen RUQ CLINICAL HISTORY:RUQ pain, evaluate gallbladder COMPARISON: None Technique: Grayscale sonographic images were obtained of the right upper quadrant. Color Doppler was utilized. FINDINGS: Liver: Diffusely increased echogenicity of the liver with decreased through transmission. No focal lesions identified. No intra or extrahepatic biliary ductal dilatation is identified. The common bile duct is appropriate in size for the patient's age and measures six mm in diameter. Gallbladder: The gallbladder is unremarkable with no gallbladder wall thickening, pericholecystic fluid, or gallstones. There was a negative sonographic Daniels's sign. Right Kidney: The right kidney is normal in contour, echogenicity, and size with no hydronephrosis or shadowing renal calculi. Overall, the right kidney measures 10.1 cm in length. Additional structures: Visualized pancreas is normal in appearance. Part of the pancreatic head and tail are obscured. IMPRESSION: No cholelithiasis or evidence of acute cholecystitis. Report Dictated on Final Dictated: 08/02/2020 2:06 am Dictating Physician: MD LEE JAMES Signed Date and Time: 08/02/2020 2:17 am Signed by: MD LEE JAMES Transcribed Date and Time: 08/02/2020 2:08 Normal [facility] UGI AIR CONTRAST W KUBon UGI AIR CONTRAST W KUB *FINAL Date of Service: 11/11/2019 10:37 Adm #: [id number] Reading Dr:TAYLOR PRESTON Signoff Dr: TAYLOR PRESTON PROCEDURE: UGI AIR CONTRAST W KUB - WXR 0133 REASON FOR EXAM: K44.9 HIATAL HERNIA RESULT: UGI AIR CONTRAST W KUB: 11/11/2019 10:37 AM CLINICAL HISTORY: Hiatal hernia COMPARISON: None TECHNIQUE: Multiple fluoroscopic spot images were obtained during a contrast upper GI with KUB. 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 FINDINGS: Fluoroscopic and radiographic evaluation of the thoracic esophagus is within normal limits. The stomach, duodenal bulb, and duodenal c-loop are normal in appearance. IMPRESSION: No pathologic findings are identified within limits of the study. [id number] This report has been produced using speech recognition. Original Interpreting Physician: TAYLOR PRESTON MD Original Transcribed [facility]/Date[facility] Nov 11 2019 2:13P Original Electronically Signed by/Date: TAYLOR PRESTON MD Nov 11 2019 2:13P Addendum Interpreting Physician: Addendum Transcribed by/Date: NO ADDENDUM Addendum Electronically Signed by/Date: [facility] Basic Metabolicon 01-04-2019 Anion gap molar conc 17 mmol/L High 0-15 [facility] Comment on above: Performed By: #### U A, CBCDIF, PT, GBCHEM, CK, GBTSH, HCGQT, MG, RPR #### [facility] [address] [place] [address] Calcium mass conc 8.8 mg/dL Normal 8.4-10.2 [facility] Comment on above: Performed By: #### U A, CBCDIF, PT, GBCHEM, CK, GBTSH, HCGQT, MG, RPR #### [facility] [address] [place], [place] [id number] Chloride molar conc 104 mmol/L Normal 98-107 [facility] Comment on above: Performed By: #### U A, CBCDIF, PT, GBCHEM, CK, GBTSH, HCGQT, MG, RPR #### [facility] [address] [place], [place] [id number] CO2 molar conc 23 mmol/L Normal 22-30 [facility] Comment on above: Performed By: #### U A, CBCDIF, PT, GBCHEM, CK, GBTSH, HCGQT, MG, RPR #### [facility] [address] [place] [address] Creatinine mass conc 1.56 mg/dL High 0.52-1.04 [facility] Comment on above: Performed By: #### U A, CBCDIF, PT, GBCHEM, CK, GBTSH, HCGQT, MG, RPR #### [facility] [address] [place], [place] [id number] eGFR Amer 45 mL/min/1.73 2 Low >60 [facility] Comment on above: Result Comment: MDRD calculation used for eGFR results. Performed By: #### U A, CBCDIF, PT, GBCHEM, CK, GBTSH, HCGQT, MG, RPR #### [facility] [address] [place], [place] [id number] eGFR non Am 37 mL/min/1.73 2 Low >60 [facility] Comment on above: Performed By: #### U A, CBCDIF, PT, GBCHEM, CK, GBTSH, HCGQT, MG, RPR #### [facility] [address] [place], [place] [id number] Glucose mass conc 107 mg/dL High 74-106 [facility] Comment on above: Performed By: #### U A, CBCDIF, PT, GBCHEM, CK, GBTSH, HCGQT, MG, RPR #### [facility] [address] [facility] [place] [address] Potassium molar conc 4.4 mmol/L Normal 3.5-5.1 [facility] Comment on above: Performed By: #### U A, CBCDIF, PT, GBCHEM, CK, GBTSH, HCGQT, MG, RPR #### [facility] [address] [facility] [place] [address] Sodium molar conc 140 mmol/L Normal 137-145 [facility] Comment on above: Performed By: #### U A, CBCDIF, PT, GBCHEM, CK, GBTSH, HCGQT, MG, RPR #### [facility] [address] [facility] [place] [address] Urea nitrogen mass conc 28 mg/dL High 7-17 [facility] Comment on above: Performed By: #### U A, CBCDIF, PT, GBCHEM, CK, GBTSH, HCGQT, MG, RPR #### [facility] [address] [place] [address] Basic Metabolicon 12-29-2018 Anion gap molar conc 15 mmol/L Normal 0-15 [facility] Comment on above: Performed By: #### U A, CBCDIF, PT, GBCHEM, CK, GBTSH, HCGQT, MG, RPR #### [facility] [address] [place], [place] [id number] Calcium mass conc 9.0 mg/dL Normal 8.4-10.2 [facility] Comment on above: Performed By: #### U A, CBCDIF, PT, GBCHEM, CK, GBTSH, HCGQT, MG, RPR #### [facility] [address] [place], [place] [id number] Chloride molar conc 108 mmol/L High 98-107 [facility] Comment on above: Performed By: #### U A, CBCDIF, PT, GBCHEM, CK, GBTSH, HCGQT, MG, RPR #### [facility] [address] [place] [address] CO2 molar conc 23 mmol/L Normal 22-30 [facility] Comment on above: Performed By: #### U A, CBCDIF, PT, GBCHEM, CK, GBTSH, HCGQT, MG, RPR #### [facility] [address] [place] [address] Creatinine mass conc 1.67 mg/dL High 0.52-1.04 [facility] Comment on above: Performed By: #### U A, CBCDIF, PT, GBCHEM, CK, GBTSH, HCGQT, MG, RPR #### [facility] [address] [place] [address] eGFR Amer 42 mL/min/1.73 2 Low >60 [facility] Comment on above: Result Comment: MDRD calculation used for eGFR results. Performed By: #### U A, CBCDIF, PT, GBCHEM, CK, GBTSH, HCGQT, MG, RPR #### [facility] [address] [place], [place] [id number] eGFR non Am 35 mL/min/1.73 2 Low >60 [facility] Comment on above: Performed By: #### U A, CBCDIF, PT, GBCHEM, CK, GBTSH, HCGQT, MG, RPR #### [facility] [address] [place] [address] Glucose mass conc 104 mg/dL Normal 74-106 [facility] Comment on above: Performed By: #### U A, CBCDIF, PT, GBCHEM, CK, GBTSH, HCGQT, MG, RPR #### [facility] [address] [place] [address] Potassium molar conc 4.9 mmol/L Normal 3.5-5.1 [facility] Comment on above: Performed By: #### U A, CBCDIF, PT, GBCHEM, CK, GBTSH, HCGQT, MG, RPR #### [facility] [address] [place] [address] Sodium molar conc 141 mmol/L Normal 137-145 [facility] Comment on above: Performed By: #### U A, CBCDIF, PT, GBCHEM, CK, GBTSH, HCGQT, MG, RPR #### [facility] [address] [place] [address] Urea nitrogen mass conc 26 mg/dL High 7-17 [facility] Comment on above: Performed By: #### U A, CBCDIF, PT, GBCHEM, CK, GBTSH, HCGQT, MG, RPR #### [facility] [address] [place] [address] Basic Metabolicon 12-24-2018 Anion gap molar conc 16 mmol/L High 0-15 [facility] Comment on above: Performed By: #### U A, CBCDIF, PT, GBCHEM, CK, GBTSH, HCGQT, MG, RPR #### [facility] [address] [place] [address] Calcium mass conc 9.6 mg/dL Normal 8.4-10.2 [facility] Comment on above: Performed By: #### U A, CBCDIF, PT, GBCHEM, CK, GBTSH, HCGQT, MG, RPR #### [facility] [address] [place] [address] Chloride molar conc 107 mmol/L Normal 98-107 [facility] Comment on above: Performed By: #### U A, CBCDIF, PT, GBCHEM, CK, GBTSH, HCGQT, MG, RPR #### [facility] [address] [place] [address] CO2 molar conc 22 mmol/L Normal 22-30 [facility] Comment on above: Performed By: #### U A, CBCDIF, PT, GBCHEM, CK, GBTSH, HCGQT, MG, RPR #### [facility] [address] [place] [address] Creatinine mass conc 2.28 mg/dL High 0.52-1.04 [facility] Comment on above: Performed By: #### U A, CBCDIF, PT, GBCHEM, CK, GBTSH, HCGQT, MG, RPR #### [facility] [address] [place] [address] eGFR Amer 29 mL/min/1.73 2 Low >60 [facility] Comment on above: Result Comment: MDRD calculation used for eGFR results. Performed By: #### U A, CBCDIF, PT, GBCHEM, CK, GBTSH, HCGQT, MG, RPR #### [facility] [address] [place] [address] eGFR non Am 24 mL/min/1.73 2 Low >60 [facility] Comment on above: Performed By: #### U A, CBCDIF, PT, GBCHEM, CK, GBTSH, HCGQT, MG, RPR #### [facility] [address] [place] [address] Glucose mass conc 94 mg/dL Normal 74-106 [facility] Comment on above: Performed By: #### U A, CBCDIF, PT, GBCHEM, CK, GBTSH, HCGQT, MG, RPR #### [facility] [address] [place] [address] Potassium molar conc 4.4 mmol/L Normal 3.5-5.1 [facility] Comment on above: Performed By: #### U A, CBCDIF, PT, GBCHEM, CK, GBTSH, HCGQT, MG, RPR #### [facility] [address] [place] [address] Sodium molar conc 141 mmol/L Normal 137-145 [facility] Comment on above: Performed By: #### U A, CBCDIF, PT, GBCHEM, CK, GBTSH, HCGQT, MG, RPR #### [facility] [address] [place] [address] Urea nitrogen mass conc 33 mg/dL High 7-17 [facility] Comment on above: Performed By: #### U A, CBCDIF, PT, GBCHEM, CK, GBTSH, HCGQT, MG, RPR #### [facility] [address] [place] [address] US KIDNEY/BLADDERon 12-25-19 19 US KIDNEY/BLADDER * * *Final Report* * * DATE OF EXAM: Dec 24 2018 2:27PM ASU 1055 - US KIDNEY/BLADDER / PROCEDURE REASON: ACUTE RENAL FAILURE * * * * Physician Interpretation * * * * EXAMINATION: RENAL ULTRASOUND US KIDNEY/BLADDER HISTORY: ACUTE RENAL FAILURE TECHNIQUE: Sonography of the kidneys and urinary bladder was performed. Images were obtained and stored in a permanent archive. MQ: UR_1 COMPARISON: None RESULT: Right Kidney: -Renal length: 11.7 cm -Parenchyma: Normal parenchymal echogenicity. Normal parenchymal thickness. -Collecting system: No hydronephrosis. -Calculus: No echogenic, shadowing calculus. -Lesion: None. Left Kidney: -Renal length: 12.5 cm -Parenchyma: Normal parenchymal echogenicity. Normal parenchymal thickness. -Collecting system: No hydronephrosis. -Calculus: No echogenic, shadowing calculus. -Lesion: None. Bladder: Normal sonographic appearance. Pre-void bladder volume measures 165 cc. Post void bladder volume measures 0 cc. IMPRESSION: No sonographic abnormalities. Bias Cutter Helper: PSCB Transcribe Date/Time: Dec 24 2018 2:51P Dictated by : CINDY STORY MD This examination was interpreted and the report reviewed and electronically signed by: CINDY STORY MD on Dec 24 2018 2:52PM EST [id number] Normal [facility] Basic Metabolicon 12-15-2018 Anion gap molar conc 17 mmol/L High 0-15 [facility] Comment on above: Performed By: #### U A, CBCDIF, PT, GBCHEM, CK, GBTSH, HCGQT, MG, RPR #### [facility] [address] [place] [address] Calcium mass conc 9.5 mg/dL Normal 8.4-10.2 [facility] Comment on above: Performed By: #### U A, CBCDIF, PT, GBCHEM, CK, GBTSH, HCGQT, MG, RPR #### [facility] [address] [place] [address] Chloride molar conc 109 mmol/L High 98-107 [facility] Comment on above: Performed By: #### U A, CBCDIF, PT, GBCHEM, CK, GBTSH, HCGQT, MG, RPR #### [facility] [address] [place] [address] CO2 molar conc 21 mmol/L Low 22-30 [facility] Comment on above: Performed By: #### U A, CBCDIF, PT, GBCHEM, CK, GBTSH, HCGQT, MG, RPR #### [facility] [address] [place] [address] Creatinine mass conc 4.28 mg/dL Critically high 0.52-1.04 [facility] Comment on above: Result Comment: JAI 0 750 Performed By: #### U A, CBCDIF, PT, GBCHEM, CK, GBTSH, HCGQT, MG, RPR #### [facility] [address] [place] [address] eGFR Amer 14 mL/min/1.73 2 Low >60 A [facility] Comment on above: Result Comment: MDRD calculation used for eGFR results. Performed By: #### U A, CBCDIF, PT, GBCHEM, CK, GBTSH, HCGQT, MG, RPR #### [facility] [address] [place] [address] eGFR non Am 12 mL/min/1.73 2 Low >60 [facility] Comment on above: Performed By: #### U A, CBCDIF, PT, GBCHEM, CK, GBTSH, HCGQT, MG, RPR #### [facility] [address] [place] [address] Glucose mass conc 100 mg/dL Normal 74-106 [facility] Comment on above: Performed By: #### U A, CBCDIF, PT, GBCHEM, CK, GBTSH, HCGQT, MG, RPR #### [facility] [address] [place] [address] Potassium molar conc 5.1 mmol/L Normal 3.5-5.1 [facility] Comment on above: Performed By: #### U A, CBCDIF, PT, GBCHEM, CK, GBTSH, HCGQT, MG, RPR #### [facility] [address] [place] [address] Sodium molar conc 142 mmol/L Normal 137-145 [facility] Comment on above: Performed By: #### U A, CBCDIF, PT, GBCHEM, CK, GBTSH, HCGQT, MG, RPR #### [facility] [address] [place] [address] Urea nitrogen mass conc 56 mg/dL High 7-17 [facility] Comment on above: Performed By: #### U A, CBCDIF, PT, GBCHEM, CK, GBTSH, HCGQT, MG, RPR #### [facility] [address] [place] [address] Basic Metabolicon 12-12-2018 Anion gap molar conc 17 mmol/L High 0-15 [facility] Comment on above: Performed By: #### U A, CBCDIF, PT, GBCHEM, CK, GBTSH, HCGQT, MG, RPR #### [facility] [address] [place] [address] Calcium mass conc 9.4 mg/dL Normal 8.4-10.2 [facility] Comment on above: Performed By: #### U A, CBCDIF, PT, GBCHEM, CK, GBTSH, HCGQT, MG, RPR #### [facility] [address] [place] [address] Chloride molar conc 107 mmol/L Normal 98-107 [facility] Comment on above: Performed By: #### U A, CBCDIF, PT, GBCHEM, CK, GBTSH, HCGQT, MG, RPR #### [facility] [address] [place] [address] CO2 molar conc 22 mmol/L Normal 22-30 [facility] Comment on above: Performed By: #### U A, CBCDIF, PT, GBCHEM, CK, GBTSH, HCGQT, MG, RPR #### [facility] [address] [place] [address] Creatinine mass conc 4.04 mg/dL Critically high 0.52-1.04 [facility] Comment on above: Result Comment: [place] 0845 Performed By: #### U A, CBCDIF, PT, GBCHEM, CK, GBTSH, HCGQT, MG, RPR #### [facility] [address] [place] [address] eGFR Amer 15 mL/min/1.73 2 Low >60 [facility] Comment on above: Result Comment: MDRD calculation used for eGFR results. Performed By: #### U A, CBCDIF, PT, GBCHEM, CK, GBTSH, HCGQT, MG, RPR #### [facility] [address] [place] [address] eGFR non Am 12 mL/min/1.73 2 Low >60 [facility] Comment on above: Performed By: #### U A, CBCDIF, PT, GBCHEM, CK, GBTSH, HCGQT, MG, RPR #### [facility] [address] [place], [place] [address] Glucose mass conc 95 mg/dL Normal 74-106 [facility] Comment on above: Performed By: #### U A, CBCDIF, PT, GBCHEM, CK, GBTSH, HCGQT, MG, RPR #### [facility] [address] [place] [address] Potassium molar conc 5.0 mmol/L Normal 3.5-5.1 [facility] Comment on above: Performed By: #### U A, CBCDIF, PT, GBCHEM, CK, GBTSH, HCGQT, MG, RPR #### [facility] [address] [place] [address] Sodium molar conc 141 mmol/L Normal 137-145 [facility] Comment on above: Performed By: #### U A, CBCDIF, PT, GBCHEM, CK, GBTSH, HCGQT, MG, RPR #### [facility] [address] [place] [address] Urea nitrogen mass conc 48 mg/dL High 7-17 [facility] Comment on above: Performed By: #### U A, CBCDIF, PT, GBCHEM, CK, GBTSH, HCGQT, MG, RPR #### [facility] [address] [place] [address] CBCDIFon 12-12-2018 Abs Baso 0.05 k/uL Normal 0-0.2 [facility] Comment on above: Performed By: #### C BCHUGO BMP #### [facility] [address] [place] [address] Abs [place] 0.58 k/uL Normal 0-0.8 [facility] Comment on above: Performed By: #### C BCDIF, BMP #### [facility] [address] [place] [address] Abs Neut 5.76 k/uL Normal 1.8-7.7 [facility] Comment on above: Performed By: #### C BCDILynne, BMP #### [facility] [address] [place] [address] Basophils/100 WBC (Bld) 0.6 % Normal 0-1 [facility] Comment on above: Performed By: #### C BCDIF, BMP #### [facility] [address] [place] [address] Eosinophils #/vol (Bld) 0.37 10*3/uL Normal 0-0.4 [facility] Comment on above: Performed By: #### C BCDIF, BMP #### [facility] [address] [place] [address] Eosinophils/100 WBC (Bld) 4.6 % High 0-4 [facility] Comment on above: Performed By: #### C BCDIF, BMP #### [facility] [address] [place] [address] Erythrocyte distribution width Ratio (RBC) 16.5 % High 11.5-14.5 [facility] Comment on above: Performed By: #### C BCDIF, BMP #### [facility] [address] [place] [address] Hematocrit Volume Fraction (Bld) 29.1 % Low 36.0-46.0 [facility] Comment on above: Performed By: #### C BCDIF, BMP #### [facility] [address] [place] [address] Hemoglobin mass conc (Bld) 8.8 g/dL Low 12.0-16.0 [facility] Comment on above: Performed By: #### C BCDIF, BMP #### [facility] [address] [place] [address] Immature Gran 0.50 % Normal 0-1.9 [facility] Comment on above: Performed By: #### C BCDIF, BMP #### [facility] [address] [place] [address] Lymphocytes #/vol (Bld) 1.24 10*3/uL Normal 1.0-4.0 [facility] Comment on above: Performed By: #### C BCDIF, BMP #### [facility] [address] [place] [address] Lymphocytes/100 WBC (Bld) 15.4 % Low 22-44 [facility] Comment on above: Performed By: #### C BCDIF, BMP #### [facility] [address] [place] [address] MCH Entitic mass (RBC) 27.1 pG Normal 26-34 [facility] Comment on above: Performed By: #### C BCDIF, BMP #### [facility] [address] [place] [address] MCHC mass conc (RBC) 30.2 g/dL Low 31-37 [facility] Comment on above: Performed By: #### C BCDIF, BMP #### [facility] [address] [place] [address] MCV Entitic volume (RBC) 89.5 fL Normal 80-100 [facility] Comment on above: Performed By: #### C BCDIF, BMP #### [facility] [address] [place] [address] Monocytes/100 WBC (Bld) 7.2 % Normal 4-12 [facility] Comment on above: Performed By: #### C BCDIF, BMP #### [facility] [address] [place] [address] Neutrophils/100 WBC (Bld) 71.7 % High 40-70 [facility] Comment on above: Performed By: #### C BCDIF, BMP #### [facility] [address] [facility] [place] [address] NRBCs 0 /100 WBC Normal 0-0.9 [facility] Comment on above: Performed By: #### C BCDIF, BMP #### [facility] [address] [place] [address] Platelets #/vol (Bld) 277 10*3/uL Normal 150-450 [facility] Comment on above: Performed By: #### C MICHAEL BMP #### [facility] [address] [place] [address] RBC #/vol (Bld) 3.25 10*6/uL Low 4.00-5.20 [facility] Comment on above: Performed By: #### C BCDILynne, BMP #### [facility] [address] [place] [address] WBC #/vol (Bld) 8.04 10*3/uL Normal 4.5-11.0 [facility] Comment on above: Performed By: #### C BCHUGO, BMP #### [facility] [address] [place], [place] [id number] RPRon 12-10-2018 Reagin Ab RPR Ql (S) Nonreactive Normal Nonreactive [facility] Comment on above: Performed By: #### U A, CBCDIF, PT, GBCHEM, CK, GBTSH, HCGQT, MG, RPR #### [facility] [address] [place], [place] [address] CBCDIFon 12-09-2018 Abs Baso 0.04 k/uL Normal 0-0.2 [facility] Comment on above: Performed By: #### U A, CBCDIF, PT, GBCHEM, CK, GBTSH, HCGQT, MG, RPR #### [facility] [address] [place], [place] [id number] Abs [place] 0.57 k/uL Normal 0-0.8 [facility] Comment on above: Performed By: #### U A, CBCDIF, PT, GBCHEM, CK, GBTSH, HCGQT, MG, RPR #### [facility] [address] [place], [place] [id number] Abs Neut 5.71 k/uL Normal 1.8-7.7 [facility] Comment on above: Performed By: #### U A, CBCDIF, PT, GBCHEM, CK, GBTSH, HCGQT, MG, RPR #### [facility] [address] [place] [address] Basophils/100 WBC (Bld) 0.6 % Normal 0-1 [facility] Comment on above: Performed By: #### U A, CBCDIF, PT, GBCHEM, CK, GBTSH, HCGQT, MG, RPR #### [facility] [id number] [place] [address] Eosinophils #/vol (Bld) 0.14 10*3/uL Normal 0-0.4 [facility] Comment on above: Performed By: #### U A, CBCDIF, PT, GBCHEM, CK, GBTSH, HCGQT, MG, RPR #### [facility] [address] [place] [address] Eosinophils/100 WBC (Bld) 1.9 % Normal 0-4 [facility] Comment on above: Performed By: #### U A, CBCDIF, PT, GBCHEM, CK, GBTSH, HCGQT, MG, RPR #### [facility] Lab [address] [place], [place] [id number] Erythrocyte distribution width Ratio (RBC) 16.5 % High 11.5-14.5 [facility] Comment on above: Performed By: #### U A, CBCDIF, PT, GBCHEM, CK, GBTSH, HCGQT, MG, RPR #### [facility] [address] [place] [address] Hematocrit Volume Fraction (Bld) 29.1 % Low 36.0-46.0 [facility] Comment on above: Performed By: #### U A, CBCDIF, PT, GBCHEM, CK, GBTSH, HCGQT, MG, RPR #### [facility] [address] [place] [address] Hemoglobin mass conc (Bld) 9.0 g/dL Low 12.0-16.0 [facility] Comment on above: Performed By: #### U A, CBCDIF, PT, GBCHEM, CK, GBTSH, HCGQT, MG, RPR #### [facility] [address] [place] [address] Immature Gran 0.40 % Normal 0-1.9 [facility] Comment on above: Performed By: #### U A, CBCDIF, PT, GBCHEM, CK, GBTSH, HCGQT, MG, RPR #### [facility] Clinical Lab [address] [place] [address] Lymphocytes #/vol (Bld) 0.75 10*3/uL Low 1.0-4.0 [facility] Comment on above: Performed By: #### U A, CBCDIF, PT, GBCHEM, CK, GBTSH, HCGQT, MG, RPR #### [facility] Lab [address] [place] [address] Lymphocytes/100 WBC (Bld) 10.4 % Low 22-44 [facility] Comment on above: Performed By: #### U A, CBCDIF, PT, GBCHEM, CK, GBTSH, HCGQT, MG, RPR #### [facility] Lab [address] [place] [address] MCH Entitic mass (RBC) 27.4 pG Normal 26-34 [facility] Comment on above: Performed By: #### U A, CBCDIF, PT, GBCHEM, CK, GBTSH, HCGQT, MG, RPR #### [facility] Lab [address] [place] [address] MCHC mass conc (RBC) 30.9 g/dL Low 31-37 [facility] Comment on above: Performed By: #### U A, CBCDIF, PT, GBCHEM, CK, GBTSH, HCGQT, MG, RPR #### [facility] Clinical Lab [address] [place] [address] MCV Entitic volume (RBC) 88.4 fL Normal 80-100 [facility] Comment on above: Performed By: #### U A, CBCDIF, PT, GBCHEM, CK, GBTSH, HCGQT, MG, RPR #### [facility] Clinical Lab [address] [place] [address] Monocytes/100 WBC (Bld) 7.9 % Normal 4-12 [facility] Comment on above: Performed By: #### U A, CBCDIF, PT, GBCHEM, CK, GBTSH, HCGQT, MG, RPR #### [facility] Clinical Lab [address] [place] [address] Neutrophils/100 WBC (Bld) 78.8 % High 40-70 [facility] Comment on above: Performed By: #### U A, CBCDIF, PT, GBCHEM, CK, GBTSH, HCGQT, MG, RPR #### [facility] Lab [address] [place] [address] NRBCs 0 /100 WBC Normal 0-0.9 [facility] Comment on above: Performed By: #### U A, CBCDIF, PT, GBCHEM, CK, GBTSH, HCGQT, MG, RPR #### [facility] Lab [address] [place] [address] Platelets #/vol (Bld) 219 10*3/uL Normal 150-450 [facility] Comment on above: Performed By: #### U A, CBCDIF, PT, GBCHEM, CK, GBTSH, HCGQT, MG, RPR #### [facility] Clinical Lab [address] [place] [address] RBC #/vol (Bld) 3.29 10*6/uL Low 4.00-5.20 [facility] Comment on above: Performed By: #### U A, CBCDIF, PT, GBCHEM, CK, GBTSH, HCGQT, MG, RPR #### [facility] Clinical Lab [address] [place], [place] [id number] WBC #/vol (Bld) 7.24 10*3/uL Normal 4.5-11.0 [facility] Comment on above: Performed By: #### U A, CBCDIF, PT, GBCHEM, CK, GBTSH, HCGQT, MG, RPR #### [facility] [address] [place], [place] [id number] CKon 12-09-2018 CK enzyme act/vol 48 U/L Normal 30-135 [facility] Comment on above: Performed By: #### U A, CBCDIF, PT, GBCHEM, CK, GBTSH, HCGQT, MG, RPR #### [facility] Clinical Lab [address] [place], [place] [id number] [facility] Anne 2018 Albumin mass conc 4.3 g/dL Normal 3.5-5.0 [facility] Comment on above: Performed By: #### U A, CBCDIF, PT, GBCHEM, CK, GBTSH, HCGQT, MG, RPR #### [facility] Clinical Lab [address] [place], [place] [id number] Alkaline Phos 90 U/L Normal 38-125 [facility] Comment on above: Performed By: #### U A, CBCDIF, PT, GBCHEM, CK, GBTSH, HCGQT, MG, RPR #### [facility] [address] [place], [place] [id number] ALT enzyme act/vol 29 U/L Normal 9-52 [facility] Comment on above: Performed By: #### U A, CBCDIF, PT, GBCHEM, CK, GBTSH, HCGQT, MG, RPR #### [facility] [address] [place], [place] [address] Amylase enzyme act/vol 91 U/L Normal 30-110 [facility] Comment on above: Performed By: #### U A, CBCDIF, PT, GBCHEM, CK, GBTSH, HCGQT, MG, RPR #### [facility] [address] [place] [address] Anion gap molar conc 19 mmol/L High 0-15 [facility] Comment on above: Performed By: #### U A, CBCDIF, PT, GBCHEM, CK, GBTSH, HCGQT, MG, RPR #### [facility] [address] [place] [address] AST enzyme act/vol 33 U/L Normal 17-59 [facility] Comment on above: Performed By: #### U A, CBCDIF, PT, GBCHEM, CK, GBTSH, HCGQT, MG, RPR #### [facility] [address] [place] [address] Bilirubin Ql (U) 0.8 mg/dL Normal 0.2-1.3 [facility] Comment on above: Performed By: #### U A, CBCDIF, PT, GBCHEM, CK, GBTSH, HCGQT, MG, RPR #### [facility] [address] [place] [address] Calcium mass conc 9.2 mg/dL Normal 8.4-10.2 [facility] Comment on above: Performed By: #### U A, CBCDIF, PT, GBCHEM, CK, GBTSH, HCGQT, MG, RPR #### [facility] [address] [place] [address] Chloride molar conc 102 mmol/L Normal 98-107 [facility] Comment on above: Performed By: #### U A, CBCDIF, PT, GBCHEM, CK, GBTSH, HCGQT, MG, RPR #### [facility] [address] [place] [address] Cholesterol mass conc 193 mg/dL Normal 100-199 [facility] Comment on above: Performed By: #### U A, CBCDIF, PT, GBCHEM, CK, GBTSH, HCGQT, MG, RPR #### [facility] [address] [place], [place] [id number] CO2 molar conc 22 mmol/L Normal 22-30 [facility] Comment on above: Performed By: #### U A, CBCDIF, PT, GBCHEM, CK, GBTSH, HCGQT, MG, RPR #### [facility] [address] [place] [address] Creatinine mass conc 3.00 mg/dL High 0.52-1.04 [facility] Comment on above: Performed By: #### U A, CBCDIF, PT, GBCHEM, CK, GBTSH, HCGQT, MG, RPR #### [facility] Lab [address] [place] [address] eGFR Amer 21 mL/min/1.73 2 Low >60 A [facility] Comment on above: Result Comment: MDRD calculation used for eGFR results. Performed By: #### U A, CBCDIF, PT, GBCHEM, CK, GBTSH, HCGQT, MG, RPR #### [facility] [address] [place], [place] [id number] eGFR non Am 18 mL/min/1.73 2 Low >60 [facility] Comment on above: Performed By: #### U A, CBCDIF, PT, GBCHEM, CK, GBTSH, HCGQT, MG, RPR #### [facility] [address] [place], [place] [id number] Gamma glutamyl transferase enzyme act/vol 187 U/L High 12-43 [facility] Comment on above: Performed By: #### U A, CBCDIF, PT, GBCHEM, CK, GBTSH, HCGQT, MG, RPR #### [facility] [address] [place] [address] Glucose mass conc 102 mg/dL Normal 74-106 [facility] Comment on above: Performed By: #### U A, CBCDIF, PT, GBCHEM, CK, GBTSH, HCGQT, MG, RPR #### [facility] [address] [place] [address] LDH 456 U/L Normal 318-618 [facility] Comment on above: Performed By: #### U A, CBCDIF, PT, GBCHEM, CK, GBTSH, HCGQT, MG, RPR #### [facility] [address] [place] [address] Phosphate mass conc 3.3 mg/dL Normal 2.5-4.5 [facility] Comment on above: Performed By: #### U A, CBCDIF, PT, GBCHEM, CK, GBTSH, HCGQT, MG, RPR #### [facility] [address] [place] [address] Potassium molar conc 4.5 mmol/L Normal 3.5-5.1 [facility] Comment on above: Performed By: #### U A, CBCDIF, PT, GBCHEM, CK, GBTSH, HCGQT, MG, RPR #### [facility] [address] [place] [address] Protein mass conc 7.8 g/dL Normal 6.2-8.2 [facility] Comment on above: Performed By: #### U A, CBCDIF, PT, GBCHEM, CK, GBTSH, HCGQT, MG, RPR #### [facility] [address] [place] [address] Sodium molar conc 138 mmol/L Normal 137-145 [facility] Comment on above: Performed By: #### U A, CBCDIF, PT, GBCHEM, CK, GBTSH, HCGQT, MG, RPR #### [facility] [address] [place] [address] Triglyceride mass conc 154 mg/dL High 35-150 [facility] Comment on above: Performed By: #### U A, CBCDIF, PT, GBCHEM, CK, GBTSH, HCGQT, MG, RPR #### [facility] [address] [place], [place] 0[address]24 Urate mass conc 11.5 mg/dL High 2.5-6.2 [facility] Comment on above: Performed By: #### U A, CBCDIF, PT, GBCHEM, CK, GBTSH, HCGQT, MG, RPR #### [facility] [address] [place], [place] [id number] Urea nitrogen mass conc 42 mg/dL High 7-17 [facility] Comment on above: Performed By: #### U A, CBCDIF, PT, GBCHEM, CK, GBTSH, HCGQT, MG, RPR #### [facility] [address] [place], [place] [id number] [facility]-09-2018 Thyrotropin Qn 3.360 uU/mL Normal 0.465-4.680 [facility] Comment on above: Performed By: #### U A, CBCDIF, PT, GBCHEM, CK, GBTSH, HCGQT, MG, RPR #### [facility] [address] [place], [place] [id number] HCG, Serum Quanton 9 HCG, Serum Quant <2.[address] [facility] Comment on above: Result Comment: Bonifacio titative HCG Interpretation Gestational Age HCG Range 4 Weeks 4700-105334 5 Weeks 3660-145833 6 Weeks 86923-356706 7 Weeks 04944-250809 8 Weeks 82046-577794 9 Weeks 80350-713560 10 Weeks 02731-267243 11 Weeks 6180-435985 12 Weeks 6740-087244 2nd Trimester 8200-035882 3rd Trimester 2320-57642 Non females or males: <6.0 Biotin (Vitamin B7) is known to potentially cause an interfering NEGATIVE bias with this assay. If this result does not correlate clinically with your patient's presentation, it is suggested that Biotin use be discontinued for 2 days prior to re-testing. Performed By: #### U A, CBCDIF, PT, GBCHEM, CK, GBTSH, HCGQT, MG, RPR #### [facility] [address] [place], [place] [id number] Magnesiumon 12-09-2018 Magnesium mass conc 1.5 mg/dL Normal 1.3-2.3 [facility] Comment on above: Performed By: #### U A, CBCDIF, PT, GBCHEM, CK, GBTSH, HCGQT, MG, RPR #### [facility] [address] [place] [address] Protimeon 12-09-2018 Prothrombin time (PT) Coag time (PPP) 1.1 s Normal 0.6-1.1 [facility] Comment on above: Result Comment: The PT/INR can be used to monitor the therapeutic effect of oral anticoagulants, such as warfarin. The recommended therapeutic range is an INR of 2.0 to 3.0 for most applications, including treatment and prevention of venous thrombosis, treatment of pulmonary embolism, prevention of strokes/TIA in patients with atrial fibrillation, prevention and treatment of thrombosis in patients with a lupus anticoagulant and prevention of systemic embolization in patients with heart valve disorders. There are certain conditions where clinicians may decide to use a lower or higher therapeutic range eg. 1.5 to 1.9 for secondary prevention of idiopathic venous thromboembolism and an INR 2.5 to 3.5 for older generation mechanical heart valves. Nessell, et al. Chest 2004: 126:204S to 233S. Performed By: #### U A, CBCDIF, PT, GBCHEM, CK, GBTSH, HCGQT, MG, RPR #### [facility] [address] [place] [address] Prothrombin time (PT) Coag time (PPP) 13.8 s Normal 11.8-14.1 [facility] Comment on above: Performed By: #### U A, CBCDIF, PT, GBCHEM, CK, GBTSH, HCGQT, MG, RPR #### [facility] [address] [place] [address] Urinalysison 12-09-2018 Bilirubin mass conc Negative Normal Negative [facility] Comment on above: Performed By: #### U A, CBCDIF, PT, GBCHEM, CK, GBTSH, HCGQT, MG, RPR #### [facility] [address] [place] [address] Clarity Nom (U) Clear Normal Clear [facility] Comment on above: Performed By: #### U A, CBCDIF, PT, GBCHEM, CK, GBTSH, HCGQT, MG, RPR #### [facility] [address] [place] [address] Color Nom (U) Yellow Normal Yellow [facility] Comment on above: Performed By: #### U A, CBCDIF, PT, GBCHEM, CK, GBTSH, HCGQT, MG, RPR #### [facility] [address] [place] [address] Comments MICROSCOPIC ANALYSIS NOT DONE ON URINES WITH NEGATIVE BIOCHEMICAL TESTS Normal [facility] Comment on above: Performed By: #### U A, CBCDIF, PT, GBCHEM, CK, GBTSH, HCGQT, MG, RPR #### [facility] [address] [place] [address] Glucose mass conc Negative Normal Negative [facility] Comment on above: Performed By: #### U A, CBCDIF, PT, GBCHEM, CK, GBTSH, HCGQT, MG, RPR #### [facility] [address] [place] [address] Hemoglobin/Blood Negative Normal Negative [facility] Comment on above: Performed By: #### U A, CBCDIF, PT, GBCHEM, CK, GBTSH, HCGQT, MG, RPR #### [facility] [address] [place] [address] Ketone Negative Normal Negative [facility] Comment on above: Performed By: #### U A, CBCDIF, PT, GBCHEM, CK, GBTSH, HCGQT, MG, RPR #### [facility] [address] [place] [address] Leukest Negative Normal Negative [facility] Comment on above: Performed By: #### U A, CBCDIF, PT, GBCHEM, CK, GBTSH, HCGQT, MG, RPR #### [facility] [address] [place] [address] Nitrite Ql (U) Negative Normal Negative [facility] Comment on above: Performed By: #### U A, CBCDIF, PT, GBCHEM, CK, GBTSH, HCGQT, MG, RPR #### [facility] [address] [place] [address] pH (U) 5.0 [pH] Normal 5-7 [facility] Comment on above: Performed By: #### U A, CBCDIF, PT, GBCHEM, CK, GBTSH, HCGQT, MG, RPR #### [facility] [address] [place] [address] Protein mass conc (U) Negative Normal Negative [facility] Comment on above: Performed By: #### U A, CBCDIF, PT, GBCHEM, CK, GBTSH, HCGQT, MG, RPR #### [facility] [address] [place] [address] Urine Spec [place] 1.012 Normal 1.005-1.030 [facility] Comment on above: Performed By: #### U A, CBCDIF, PT, GBCHEM, CK, GBTSH, HCGQT, MG, RPR #### [facility] [address] [place] [address] Urobilinogen Qn (U) <2.0 Normal 0.0-1.0 [facility] Comment on above: Performed By: #### U A, CBCDIF, PT, GBCHEM, CK, GBTSH, HCGQT, MG, RPR #### [facility] [address] [place] [address] COVID-19 virus antigen assay SARS-CoV-2 (COVID-19) Ag IA.rapid Ql (Resp) [facility] Work Phone: Influenza virus A and B and SARS-CoV-2 (COVID-19) Ag panel - Upper respiratory specim SARS-CoV-2 (COVID-19) RNA BATSHEVA+probe Ql (Resp) [facility] Work Phone: Laboratory - Microbiology an d Antimicrobial susceptibility Bacteria identified Cx Nom (Bld) No growth in 5 days. [facility] Work Phone: Large Joint Arthro/Inj: L tam bacromial bursa [facility] Vital Signs Date Time Vital Sign Value Performing Clinician Facility 05-20-2025 13:53-0400 Body height 170.[address] Sarai Watkins MD Work Phone: [facility] 05-20-2025 13:53-0400 Body mass index (BMI) [Ratio] 42.1 kg/m2 Dr. Sarai Watkins MD Work Phone: [facility] 05-20-2025 13:53-0400 Body weight 122.[address] Sarai Watkins MD Work Phone: [facility] 05-20-2025 13:53-0400 Diastolic blood pressure 82 mm[Hg] Dr. Sarai Watkins MD Work Phone: [facility] 05-20-2025 13:53-0400 Heart rate 67 /min Dr. Sarai Watkins MD Work Phone: [facility] 05-20-2025 13:53-0400 Respiratory rate 18 /min Dr. Sarai Watkins MD Work Phone: [facility] 05-20-2025 13:53-0400 SaO2% (BldA) [Mass fraction] 95 % Dr. Sarai Watkins MD Work Phone: [facility] 05-20-2025 13:53-0400 Systolic blood pressure 125 mm[Hg] Dr. Sarai Watkins MD Work Phone: [facility] 02-08-2025 07:52-0400 Body height 170.[address] Sarai Watkins MD Work Phone: [facility] 02-08-2025 07:52-0400 Body mass index (BMI) [Ratio] 42.9 kg/m2 Dr. Sarai Watkins MD Work Phone: [facility] 02-08-2025 07:52-0400 Body weight 124.[address] Sarai Watkins MD Work Phone: [facility] 02-08-2025 07:52-0400 Diastolic blood pressure 91 mm[Hg] Dr. Sarai Watkins MD Work Phone: [facility] 02-08-2025 07:52-0400 Heart rate 60 /min Dr. Sarai Watkins MD Work Phone: [facility] 02-08-2025 07:52-0400 SaO2% (BldA) [Mass fraction] 90 % Dr. Sarai Watkins MD Work Phone: [facility] 02-08-2025 07:52-0400 Systolic blood pressure 107 mm[Hg] Dr. Sarai Watkins MD Work Phone: [facility] 01-06-2025 15:09-0400 Body mass index (BMI) [Ratio] 42.61 kg/m2 Denise Falls DO Work Phone: [facility] 01-06-2025 15:09-0400 Body weight 122.47 kg Denise Falls DO Work Phone: [facility] 01-06-2025 15:09-0400 Diastolic blood pressure 79 mm[Hg] Denise Falls DO Work Phone: [facility] 01-06-2025 15:09-0400 Heart rate 91 /min Denise Falls DO Work Phone: [facility] 01-06-2025 15:09-0400 Systolic blood pressure 145 mm[Hg] Denise Kline DO Work Phone: [facility] 11-05-2024 07:53-0500 Body mass index (BMI) [Ratio] 42.5 kg/m2 Dr. Sarai Watkins MD Work Phone: [facility] 11-05-2024 07:53-0500 Body weight 123.[address] Sarai Watkins MD Work Phone: [facility] 11-05-2024 07:53-0500 Diastolic blood pressure 82 mm[Hg] Dr. Sarai Watkins MD Work Phone: [facility] 11-05-2024 07:53-0500 Heart rate 62 /min Dr. Sarai Watkins MD Work Phone: [facility] 11-05-2024 07:53-0500 Respiratory rate 18 /min Dr. Sarai Watkins MD Work Phone: [facility] 11-05-2024 07:53-0500 SaO2% (BldA) [Mass fraction] 6 % Dr. Sarai Watkins MD Work Phone: [facility] 11-05-2024 07:53-0500 Systolic blood pressure 124 mm[Hg] Dr. Sarai Watkins MD Work Phone: [facility] 09-29-2024 16:11-0500 Body temperature 98.3 [degF] Dr. Sarai Watkins MD Work Phone: [facility] 09-29-2024 16:11-0500 Diastolic blood pressure 67 mm[Hg] Dr. Sarai Watkins MD Work Phone: [facility] 09-29-2024 16:11-0500 Heart rate 55 /min Dr. Sarai Watkins MD Work Phone: [facility] 09-29-2024 16:11-0500 Respiratory rate 18 /min Dr. Sarai Watkins MD Work Phone: [facility] 09-29-2024 16:11-0500 SaO2% (BldA) [Mass fraction] 92 % Dr. Sarai Watkins MD Work Phone: [facility] 09-29-2024 16:11-0500 Systolic blood pressure 125 mm[Hg] Dr. Sarai Watkins MD Work Phone: [facility] 09-29-2024 04:10-0500 Body mass index (BMI) [Ratio] 42.6 kg/m2 Dr. Sarai Watkins MD Work Phone: 8(539)936-190919 [place] [address] 09-29-2024 04:10-0500 Body weight 123.[address] Sarai Watkins MD Work Phone: 0(720)621-315981 [place] [address] 09-27-2024 15:31-0500 Body height 170.[address] Sarai Watkins MD Work Phone: 7(864)723-642436 [address] 09-27-2024 08:03-0500 Body mass index (BMI) [Ratio] 45.8 kg/m2 Dr. Sarai Watkins MD Work Phone: 9(463)747-979336 [address] 09-27-2024 08:03-0500 Body weight 128.[address] Sarai Watkins MD Work Phone: 1(083)664-832619 [place] [address] 09-27-2024 08:03-0500 Diastolic blood pressure 87 mm[Hg] Dr. Sarai Watkins MD Work Phone: [facility] 09-27-2024 08:03-0500 Heart rate 68 /min Dr. Sarai Watkins MD Work Phone: [facility] 09-27-2024 08:03-0500 SaO2% (BldA) [Mass fraction] 94 % Dr. Sarai Watkins MD Work Phone: [facility] 09-27-2024 08:03-0500 Systolic blood pressure 144 mm[Hg] Dr. Sarai Watkins MD Work Phone: [facility] 12-09-2023 09:00-0400 Body height 168 cm Ronal Macdonald MD Work Phone: [facility] 12-09-2023 09:00-0400 Body temperature 97.5 [degF] Ronal Macdonald MD Work Phone: [facility] 12-09-2023 09:00-0400 Body weight 116.8 kg Ronal Macdonald MD Work Phone: [facility] 12-09-2023 09:00-0400 Diastolic blood pressure 84 mm[Hg] Ronal Macdonald MD Work Phone: [facility] 12-09-2023 09:00-0400 Heart rate 58 /min Ronal Macdonald MD Work Phone: [facility] 12-09-2023 09:00-0400 SaO2% (BldA) [Mass fraction] 97 % Ronal Macdonald MD Work Phone: [facility] 12-09-2023 09:00-0400 Systolic blood pressure 125 mm[Hg] Ronal Macdonald MD Work Phone: [facility] 11-13-2023 08:34-0400 Body mass index (BMI) [Ratio] 40.74 kg/m2 Denise Falls DO Work Phone: [facility] 11-13-2023 08:34-0400 Body weight 117.12 kg Denise Falls DO Work Phone: [facility] 11-13-2023 08:34-0400 Diastolic blood pressure 64 mm[Hg] Denise Falls DO Work Phone: [facility] 11-13-2023 08:34-0400 Heart rate 55 /min Denise Falls DO Work Phone: [facility] 11-13-2023 08:34-0400 Systolic blood pressure 133 mm[Hg] Denise Falls DO Work Phone: [facility] 10-15-2023 14:56-0500 Body height [address] Sarai Watkins Work Phone: [facility] 10-15-2023 14:56-0500 Body mass index (BMI) [Ratio] 41.4 kg/m2 Dr. Sarai Watkins Work Phone: [facility] 10-15-2023 14:56-0500 Body temperature 98 [degF] Dr. Sarai Watkins Work Phone: [facility] 10-15-2023 14:56-0500 Body weight 115.[address] Sarai Watkins Work Phone: [facility] 10-15-2023 14:56-0500 Diastolic blood pressure 83 mm[Hg] Dr. Sarai Watkins Work Phone: [facility] 10-15-2023 14:56-0500 Heart rate 48 /min Dr. Sarai Watkins Work Phone: [facility] 10-15-2023 14:56-0500 Respiratory rate 16 /min Dr. Sarai Watkins Work Phone: [facility] 10-15-2023 14:56-0500 SaO2% (BldA) [Mass fraction] 93 % Dr. Sarai Watkins Work Phone: [facility] 10-15-2023 14:56-0500 Systolic blood pressure 118 mm[Hg] Dr. Sarai Watkins Work Phone: [facility] 08-29-2023 13:05-0500 Body height 167.[address] Sarai Watkins Work Phone: [facility] 08-29-2023 13:05-0500 Body mass index (BMI) [Ratio] 40.5 kg/m2 Dr. Sarai Watkins Work Phone: [facility] 08-29-2023 13:05-0500 Body weight 113.[address] Sarai Watkins Work Phone: [facility] 08-29-2023 13:05-0500 Diastolic blood pressure 73 mm[Hg] Dr. Sarai Watkins Work Phone: [facility] 08-29-2023 13:05-0500 Heart rate 53 /min Dr. Sarai Watkins Work Phone: [facility] 08-29-2023 13:05-0500 Respiratory rate 18 /min Dr. Sarai Watkins Work Phone: [facility] 08-29-2023 13:05-0500 SaO2% (BldA) [Mass fraction] 93 % Dr. Sarai Watkins Work Phone: [facility] 08-29-2023 13:05-0500 Systolic blood pressure 140 mm[Hg] Dr. Sarai Watkins Work Phone: [facility] 06-26-2023 16:52-0400 Body temperature 98.2 [degF] Dr. Sarai Watkins Work Phone: [facility] 06-26-2023 16:52-0400 Diastolic blood pressure 78 mm[Hg] Dr. Sarai Watkins Work Phone: 8(818)522-061319 [place] [address] 06-26-2023 16:52-0400 Heart rate 71 /min Dr. Sarai Watkins Work Phone: 3(486)349-727719 [place] [address] 06-26-2023 16:52-0400 Inhaled oxygen flow rate 2 L/min Dr. Sarai Watkins Work Phone: [facility] 06-26-2023 16:52-0400 Respiratory rate 16 /min Dr. Sarai Watkins Work Phone: 1(967)575-152219 [place] [address] 06-26-2023 16:52-0400 SaO2% (BldA) [Mass fraction] 95 % Dr. Sarai Watkins Work Phone: [facility] 06-26-2023 16:52-0400 Systolic blood pressure 113 mm[Hg] Dr. Sarai Watkins Work Phone: [facility] 06-26-2023 02:40-0400 Body mass index (BMI) [Ratio] 40.4 kg/m2 Dr. Sarai Watkins Work Phone: [facility] 06-26-2023 02:40-0400 Body weight 113.[address] Sarai Watkins Work Phone: 4(040)428-926019 [place] [address] 06-25-2023 14:22-0400 Body height 167.[address] Sarai Watkins Work Phone: 2(534)894-991919 [place] [address] 06-24-2023 22:10-0400 Body temperature 97.8 [degF] Dr. Sarai Watkins Work Phone: [facility] 06-24-2023 22:10-0400 Diastolic blood pressure 75 mm[Hg] Dr. Sarai Watkins Work Phone: [facility] 06-24-2023 22:10-0400 Heart rate 65 /min Dr. Sarai Watkins Work Phone: 8(144)445-604319 [place] [address] 06-24-2023 22:10-0400 Respiratory rate 22 /min Dr. Sarai Watkins Work Phone: 4(700)181-218936 [address] 06-24-2023 22:10-0400 SaO2% (BldA) [Mass fraction] 94 % Dr. Sarai Watkins Work Phone: 2(633)251-138919 [place] [address] 06-24-2023 22:10-0400 Systolic blood pressure 115 mm[Hg] Dr. Sarai Watkins Work Phone: 9(345)258-976719 [place] [address] 06-24-2023 21:27-0400 Inhaled oxygen flow rate 3 L/min Dr. Sarai Watkins Work Phone: 3(468)192-788019 [place] [address] 06-24-2023 18:04-0400 Body mass index (BMI) [Ratio] 40 kg/m2 Dr. Sarai Watkins Work Phone: 3(081)673-283619 [place] [address] 06-24-2023 18:04-0400 Body weight 115.[address] Sarai Watkins Work Phone: 3(597)504-627419 [place] [address] 06-24-2023 17:30-0400 Body height 170.[address] Sarai Watkins Work Phone: 6(024)878-282719 [place] [address] 06-13-2023 14:13-0400 Body mass index (BMI) [Ratio] 40.7 kg/m2 Dr. Sarai Watkins Work Phone: 4(109)752-166219 [place] [address] 06-13-2023 14:13-0400 Body weight 117.[address] Sarai Watkins Work Phone: 2(520)410-282619 [place] [address] 06-13-2023 14:13-0400 Diastolic blood pressure 82 mm[Hg] Dr. Sarai Watkins Work Phone: [facility] 06-13-2023 14:13-0400 Heart rate 61 /min Dr. Sarai Watkins Work Phone: [facility] 06-13-2023 14:13-0400 Respiratory rate 18 /min Dr. Sarai Watkins Work Phone: [facility] 06-13-2023 14:13-0400 SaO2% (BldA) [Mass fraction] 91 % Dr. Sarai Watkins Work Phone: [facility] 06-13-2023 14:13-0400 Systolic blood pressure 130 mm[Hg] Dr. Sarai Watkins Work Phone: [facility] 05-21-2023 14:16-0400 Body mass index (BMI) [Ratio] 39.92 kg/m2 Mili Moncada MD Work Phone: [facility] 05-21-2023 14:16-0400 Body weight 114.76 kg Mili Moncada MD Work Phone: [facility] 05-21-2023 14:16-0400 Diastolic blood pressure 90 mm[Hg] Mili Moncada MD Work Phone: [facility] 05-21-2023 14:16-0400 Heart rate 53 /min Mili Moncada MD Work Phone: [facility] 05-21-2023 14:16-0400 Systolic blood pressure 145 mm[Hg] Mili Moncada MD Work Phone: [facility] 12-19-2022 11:28-0400 Body height 170.5 cm Pulm Wstr Work Phone: [facility] 12-19-2022 11:28-0400 Body weight 115.67 kg Pulm Wstr Work Phone: [facility] 12-19-2022 11:28-0400 Heart rate 50 /min Pulm Wstr Work Phone: [facility] 12-19-2022 11:28-0400 Respiratory rate 12 /min Pulm Wstr Work Phone: [facility] 12-19-2022 11:28-0400 SaO2% (BldA) [Mass fraction] 95 % Pulm Wstr Work Phone: [facility] 11-09-2022 16:19-0500 Diastolic blood pressure 80 mm[Hg] Dr. Sarai Watkins Work Phone: [facility] 11-09-2022 16:19-0500 Heart rate 80 /min Dr. Sarai Watkins Work Phone: [facility] 11-09-2022 16:19-0500 Respiratory rate 16 /min Dr. Sarai Watkins Work Phone: [facility] 11-09-2022 16:19-0500 SaO2% (BldA) [Mass fraction] 99 % Dr. Sarai Watkins Work Phone: [facility] 11-09-2022 16:19-0500 Systolic blood pressure 120 mm[Hg] Dr. Sarai Watkins Work Phone: [facility] 11-09-2022 12:40-0500 Body height 170.[address] Sarai Watkins Work Phone: [facility] 11-09-2022 12:40-0500 Body mass index (BMI) [Ratio] 40.2 kg/m2 Dr. Sarai Watkins Work Phone: [facility] 11-09-2022 12:40-0500 Body temperature 97 [degF] Dr. Sarai Watkins Work Phone: [facility] 11-09-2022 12:40-0500 Body weight 116.[address] Sarai Watkins Work Phone: [facility] 10-23-2022 14:35-0500 Body height 170.[address] Sarai Watkins Work Phone: [facility] 10-23-2022 14:31-0500 Body mass index (BMI) [Ratio] 39.9 kg/m2 Dr. Sarai Watkins Work Phone: [facility] 10-23-2022 14:31-0500 Body weight 115.[address] Sarai Watkins Work Phone: [facility] 10-23-2022 14:31-0500 Diastolic blood pressure 84 mm[Hg] Dr. Sarai Watkins Work Phone: [facility] 10-23-2022 14:31-0500 Heart rate 66 /min Dr. Sarai Watkins Work Phone: [facility] 10-23-2022 14:31-0500 Respiratory rate 20 /min Dr. Sarai Watkins Work Phone: [facility] 10-23-2022 14:31-0500 SaO2% (BldA) [Mass fraction] 92 % Dr. Sarai Watkins Work Phone: [facility] 10-23-2022 14:31-0500 Systolic blood pressure 133 mm[Hg] Dr. Sarai Watkins Work Phone: [facility] 10-10-2022 13:45-0500 Diastolic blood pressure 69 mm[Hg] Dr. Sarai Watkins Work Phone: [facility] 10-10-2022 13:45-0500 Systolic blood pressure 124 mm[Hg] Dr. Sarai Watkins Work Phone: [facility] 10-10-2022 12:46-0500 Respiratory rate 18 /min Dr. Sarai Watkins Work Phone: [facility] 10-10-2022 12:46-0500 SaO2% (BldA) [Mass fraction] 95 % Dr. Sarai Watkins Work Phone: [facility] 10-10-2022 10:05-0500 Heart rate 72 /min Dr. Sarai Watkins Work Phone: [facility] 10-10-2022 09:15-0500 Body height 170.[address] Sarai Watkins Work Phone: [facility] 10-10-2022 09:15-0500 Body mass index (BMI) [Ratio] 39.4 kg/m2 Dr. Sarai Watkins Work Phone: [facility] 10-10-2022 09:15-0500 Body temperature 97 [degF] Dr. Sarai Watkins Work Phone: [facility] 10-10-2022 09:15-0500 Body weight 114.[address] Sarai Watkins Work Phone: [facility] 09-28-2022 11:23-0500 Diastolic blood pressure 77 mm[Hg] Dr. Sarai Watkins Work Phone: [facility] 09-28-2022 11:23-0500 Heart rate 50 /min Dr. Sarai Watkins Work Phone: [facility] 09-28-2022 11:23-0500 Respiratory rate 16 /min Dr. Sarai Watkins Work Phone: [facility] 09-28-2022 11:23-0500 SaO2% (BldA) [Mass fraction] 97 % Dr. Sarai Watkins Work Phone: [facility] 09-28-2022 11:23-0500 Systolic blood pressure 115 mm[Hg] Dr. Sarai Watkins Work Phone: [facility] 09-28-2022 09:46-0500 Body height 170.[address] Sarai Watkins Work Phone: [facility] 09-28-2022 09:46-0500 Body mass index (BMI) [Ratio] 39.1 kg/m2 Dr. Sarai Watkins Work Phone: [facility] 09-28-2022 09:46-0500 Body temperature 96.3 [degF] Dr. Sarai Watkins Work Phone: [facility] 09-28-2022 09:46-0500 Body weight 113.[address] Sarai Watkins Work Phone: [facility] 09-16-2022 10:57-0500 Heart rate 77 /min Dr. Sarai Watkins Work Phone: [facility] 09-16-2022 10:57-0500 Respiratory rate 17 /min Dr. Sarai Watkins Work Phone: [facility] 09-16-2022 10:00-0500 SaO2% (BldA) [Mass fraction] 90 % Dr. Sarai Watkins Work Phone: [facility] 09-16-2022 09:46-0500 Body temperature 98.1 [degF] Dr. Sarai Watkins Work Phone: [facility] 09-16-2022 09:46-0500 Diastolic blood pressure 83 mm[Hg] Dr. Sarai Watkins Work Phone: [facility] 09-16-2022 09:46-0500 Systolic blood pressure 140 mm[Hg] Dr. Sarai Watkins Work Phone: 1(294)576-845919 [place] [address] 09-16-2022 08:03-0500 Inhaled oxygen flow rate 2 L/min Dr. Sarai Watkins Work Phone: [facility] 09-16-2022 03:52-0500 Body weight 112.[address] Sarai Watkins Work Phone: [facility] 09-13-2022 17:11-0500 Body mass index (BMI) [Ratio] 39.3 kg/m2 Dr. Sarai Watkins Work Phone: [facility] 09-13-2022 17:07-0500 Body temperature 97.9 [degF] Dr. Sarai Watkins Work Phone: [facility] Work Phone: 09-13-2022 17:07-0500 Diastolic blood pressure 68 mm[Hg] Dr. Sarai Watkins Work Phone: [facility] Work Phone: 09-13-2022 17:07-0500 Heart rate 66 /min Dr. Sarai Watkins Work Phone: [facility] Work Phone: 09-13-2022 17:07-0500 Inhaled oxygen flow rate 7 L/min Dr. Sarai Watkins Work Phone: [facility] Work Phone: 09-13-2022 17:07-0500 Respiratory rate 17 /min Dr. Sarai Watkins Work Phone: [facility] Work Phone: 09-13-2022 17:07-0500 SaO2% (BldA) [Mass fraction] 96 % Dr. Sarai Watkins Work Phone: [facility] Work Phone: 09-13-2022 17:07-0500 Systolic blood pressure 123 mm[Hg] Dr. Sarai Watkins Work Phone: [facility] Work Phone: 09-13-2022 11:50-0500 Body height 170.[address] Sarai Watkins Work Phone: [facility] Work Phone: 09-13-2022 11:50-0500 Body mass index (BMI) [Ratio] 39.1 kg/m2 Dr. Sarai Watkins Work Phone: [facility] Work Phone: 09-13-2022 11:50-0500 Body weight 113.[address] Sarai Watkins Work Phone: [facility] Work Phone: 09-11-2022 14:57-0500 Body mass index (BMI) [Ratio] 39.6 kg/m2 Dr. Sarai Watkins Work Phone: [facility] 09-11-2022 14:57-0500 Body weight 114.[address] Sarai Watkins Work Phone: [facility] 09-11-2022 14:57-0500 Diastolic blood pressure 97 mm[Hg] Dr. Sarai Watkins Work Phone: [facility] 09-11-2022 14:57-0500 Heart rate 59 /min Dr. Sarai Watkins Work Phone: [facility] 09-11-2022 14:57-0500 Respiratory rate 20 /min Dr. Sarai Watkins Work Phone: [facility] 09-11-2022 14:57-0500 SaO2% (BldA) [Mass fraction] 96 % Dr. Sarai Watkins Work Phone: [facility] 09-11-2022 14:57-0500 Systolic blood pressure 150 mm[Hg] Dr. Sarai Watkins Work Phone: [facility] 08-13-2022 08:27-0500 Body mass index (BMI) [Ratio] 38.8 kg/m2 Dr. Sarai Watkins Work Phone: [facility] 08-13-2022 08:27-0500 Body weight 112.[address] Sarai Watkins Work Phone: [facility] 08-13-2022 08:27-0500 Diastolic blood pressure 100 mm[Hg] Dr. Sarai Watkins Work Phone: [facility] 08-13-2022 08:27-0500 Heart rate 67 /min Dr. Sarai Watkins Work Phone: [facility] 08-13-2022 08:27-0500 SaO2% (BldA) [Mass fraction] 88 % Dr. Sarai Watkins Work Phone: [facility] 08-13-2022 08:27-0500 Systolic blood pressure 164 mm[Hg] Dr. Sarai Watkins Work Phone: [facility] 07-18-2022 08:40-0500 Body height 170.[address] Sarai Watkins Work Phone: [facility] Work Phone: 07-18-2022 08:40-0500 Body mass index (BMI) [Ratio] 39.3 kg/m2 Dr. Sarai Watkins Work Phone: [facility] 07-18-2022 08:40-0500 Body weight 113.[address] Sarai Watkins Work Phone: [facility] 07-18-2022 08:40-0500 Diastolic blood pressure 86 mm[Hg] Dr. Sarai Watkins Work Phone: [facility] 07-18-2022 08:40-0500 Heart rate 49 /min Dr. Sarai Watkins Work Phone: [facility] 07-18-2022 08:40-0500 Respiratory rate 20 /min Dr. Sarai Watkins Work Phone: [facility] 07-18-2022 08:40-0500 SaO2% (BldA) [Mass fraction] 97 % Dr. Sarai Watkins Work Phone: [facility] 07-18-2022 08:40-0500 Systolic blood pressure 138 mm[Hg] Dr. Sarai Watkins Work Phone: [facility] 06-11-2022 13:02-0400 Body height 170.[address] Sarai Watkins Work Phone: [facility] Work Phone: 06-11-2022 13:02-0400 Body mass index (BMI) [Ratio] 37.7 kg/m2 Dr. Sarai Watkins Work Phone: [facility] 06-11-2022 13:02-0400 Body weight 109.[address] Sarai Watkins Work Phone: [facility] 06-11-2022 13:02-0400 Diastolic blood pressure 71 mm[Hg] Dr. Sarai Watkins Work Phone: [facility] 06-11-2022 13:02-0400 Heart rate 51 /min Dr. Sarai Watkins Work Phone: [facility] 06-11-2022 13:02-0400 Respiratory rate 18 /min Dr. Sarai Watkins Work Phone: [facility] 06-11-2022 13:02-0400 SaO2% (BldA) [Mass fraction] 99 % Dr. Sarai Watkins Work Phone: [facility] 06-11-2022 13:02-0400 Systolic blood pressure 118 mm[Hg] Dr. Sarai Watkins Work Phone: [facility] 05-23-2022 16:29-0400 Body temperature 98.2 [degF] Dr. Sarai Watkins Work Phone: [facility] Work Phone: 05-23-2022 16:29-0400 Diastolic blood pressure 71 mm[Hg] Dr. Sarai Watkins Work Phone: [facility] Work Phone: 05-23-2022 16:29-0400 Heart rate 73 /min Dr. Sarai Watkins Work Phone: [facility] Work Phone: 05-23-2022 16:29-0400 Respiratory rate 16 /min Dr. Sarai Watkins Work Phone: [facility] Work Phone: 05-23-2022 16:29-0400 SaO2% (BldA) [Mass fraction] 97 % Dr. Sarai Watkins Work Phone: [facility] Work Phone: 05-23-2022 16:29-0400 Systolic blood pressure 103 mm[Hg] Dr. Sarai Watkins Work Phone: [facility] Work Phone: 05-21-2022 23:14-0400 Body height 170.[address] Sarai Watkins Work Phone: [facility] Work Phone: 05-21-2022 23:14-0400 Body mass index (BMI) [Ratio] 37.7 kg/m2 Dr. Sarai Watkins Work Phone: [facility] Work Phone: 05-21-2022 23:14-0400 Body weight 109.[address] Sarai Watkins Work Phone: [facility] Work Phone: 05-21-2022 22:48-0400 Body temperature 98.2 [degF] Dr. Sarai Watkins Work Phone: [facility] Work Phone: 05-21-2022 22:48-0400 Diastolic blood pressure 78 mm[Hg] Dr. Sarai Watkins Work Phone: [facility] Work Phone: 05-21-2022 22:48-0400 Heart rate 107 /min Dr. Sarai Watkins Work Phone: [facility] Work Phone: 05-21-2022 22:48-0400 Respiratory rate 18 /min Dr. Sarai Watkins Work Phone: [facility] Work Phone: 05-21-2022 22:48-0400 SaO2% (BldA) [Mass fraction] 99 % Dr. Sarai Watkins Work Phone: [facility] Work Phone: 05-21-2022 22:48-0400 Systolic blood pressure 115 mm[Hg] Dr. Sarai Watkins Work Phone: [facility] Work Phone: 05-21-2022 16:55-0400 Body height 170.[address] Sarai Watkins Work Phone: [facility] Work Phone: 05-21-2022 16:55-0400 Body mass index (BMI) [Ratio] 37.5 kg/m2 Dr. Sarai Watkins Work Phone: [facility] Work Phone: 05-21-2022 16:55-0400 Body weight 108.[address] Sarai Watkins Work Phone: [facility] Work Phone: 05-20-2022 07:28-0400 SaO2% (BldA) [Mass fraction] 92 % Dr. Sarai Watkins Work Phone: [facility] Work Phone: 05-20-2022 07:00-0400 Heart rate 123 /min Dr. Sarai Watkins Work Phone: [facility] Work Phone: 05-20-2022 03:00-0400 Body temperature 97 [degF] Dr. Sarai Watkins Work Phone: [facility] Work Phone: 05-20-2022 03:00-0400 Diastolic blood pressure 70 mm[Hg] Dr. Sarai Watkins Work Phone: [facility] Work Phone: 05-20-2022 03:00-0400 Respiratory rate 18 /min Dr. Sarai Watkins Work Phone: [facility] Work Phone: 05-20-2022 03:00-0400 Systolic blood pressure 120 mm[Hg] Dr. Sarai Watkins Work Phone: [facility] Work Phone: 05-19-2022 11:33-0400 Body height 170.[address] Sarai Watkins Work Phone: [facility] Work Phone: 05-19-2022 11:33-0400 Body weight 110.[address] Sarai Watkins Work Phone: [facility] Work Phone: 05-18-2022 22:21-0400 Inhaled oxygen flow rate 3 L/min Dr. Sarai Watkins Work Phone: [facility] Work Phone: 05-16-2022 10:38-0400 Body mass index (BMI) [Ratio] 38.1 kg/m2 Dr. Sarai Watkins Work Phone: [facility] Work Phone: 05-16-2022 09:46-0400 Body temperature 99.1 [degF] Dr. Sarai Watkins Work Phone: [facility] Work Phone: 05-16-2022 09:46-0400 Diastolic blood pressure 93 mm[Hg] Dr. Sarai Watkins Work Phone: [facility] Work Phone: 05-16-2022 09:46-0400 Heart rate 116 /min Dr. Sarai Watkins Work Phone: [facility] Work Phone: 05-16-2022 09:46-0400 Inhaled oxygen flow rate 2 L/min Dr. Sarai Watkins Work Phone: [facility] Work Phone: 05-16-2022 09:46-0400 Respiratory rate 28 /min Dr. Sarai Watkins Work Phone: [facility] Work Phone: 05-16-2022 09:46-0400 SaO2% (BldA) [Mass fraction] 100 % Dr. Sarai Watkins Work Phone: [facility] Work Phone: 05-16-2022 09:46-0400 Systolic blood pressure 149 mm[Hg] Dr. Sarai Watkins Work Phone: [facility] Work Phone: 05-16-2022 08:02-0400 Body height 170.[address] Sarai Watkins Work Phone: [facility] Work Phone: 05-16-2022 08:02-0400 Body mass index (BMI) [Ratio] 38 kg/m2 Dr. Sarai Watkins Work Phone: [facility] Work Phone: 05-16-2022 08:02-0400 Body weight [address] Sarai Watkins Work Phone: [facility] Work Phone: 04-20-2022 09:37-0400 Body height 170.[address] Sarai Watkins Work Phone: [facility] Work Phone: 04-20-2022 09:37-0400 Body mass index (BMI) [Ratio] 37.8 kg/m2 Dr. Sarai Watkins Work Phone: [facility] Work Phone: 04-20-2022 09:37-0400 Body temperature 97.4 [degF] Dr. Sarai Watkins Work Phone: [facility] Work Phone: 04-20-2022 09:37-0400 Body weight 109.[address] Sarai Watkins Work Phone: [facility] Work Phone: 04-20-2022 09:37-0400 Diastolic blood pressure 95 mm[Hg] Dr. Sarai Watkins Work Phone: [facility] Work Phone: 04-20-2022 09:37-0400 Heart rate 71 /min Dr. Sarai Watkins Work Phone: [facility] Work Phone: 04-20-2022 09:37-0400 Respiratory rate 16 /min Dr. Sarai Watkins Work Phone: [facility] Work Phone: 04-20-2022 09:37-0400 SaO2% (BldA) [Mass fraction] 94 % Dr. Sarai Watkins Work Phone: [facility] Work Phone: 04-20-2022 09:37-0400 Systolic blood pressure 131 mm[Hg] Dr. Sarai Watkins Work Phone: [facility] Work Phone: 04-10-2022 15:28-0400 Body mass index (BMI) [Ratio] 38.3 kg/m2 Dr. Sarai Watkins Work Phone: [facility] Work Phone: 04-10-2022 15:28-0400 Body weight 111.[address] Sarai Watkins Work Phone: [facility] Work Phone: 04-10-2022 15:28-0400 Diastolic blood pressure 73 mm[Hg] Dr. Sarai Watkins Work Phone: [facility] Work Phone: 04-10-2022 15:28-0400 Heart rate 59 /min Dr. Sarai Watkins Work Phone: [facility] Work Phone: 04-10-2022 15:28-0400 Respiratory rate 18 /min Dr. Sarai Watkins Work Phone: [facility] Work Phone: 04-10-2022 15:28-0400 SaO2% (BldA) [Mass fraction] 96 % Dr. Sarai Watkins Work Phone: [facility] Work Phone: 04-10-2022 15:28-0400 Systolic blood pressure 113 mm[Hg] Dr. Sarai Watkins Work Phone: [facility] Work Phone: 03-12-2022 07:59-0400 Body height 170.[address] Sarai Watkins Work Phone: [facility] Work Phone: 03-12-2022 07:59-0400 Body mass index (BMI) [Ratio] 37.4 kg/m2 Dr. Sarai Watkins Work Phone: [facility] Work Phone: 03-12-2022 07:59-0400 Body weight 108.[address] Sarai Watkins Work Phone: [facility] Work Phone: 03-12-2022 07:59-0400 Diastolic blood pressure 75 mm[Hg] Dr. Sarai Watkins Work Phone: [facility] Work Phone: 03-12-2022 07:59-0400 Heart rate 76 /min Dr. Sarai Watkins Work Phone: [facility] Work Phone: 03-12-2022 07:59-0400 SaO2% (BldA) [Mass fraction] 92 % Dr. Sarai Watkins Work Phone: [facility] Work Phone: 03-12-2022 07:59-0400 Systolic blood pressure 113 mm[Hg] Dr. Sarai Watkins Work Phone: [facility] Work Phone: 01-30-2022 08:29-0400 Body height 170.[address] Sarai Watkins Work Phone: [facility] Work Phone: 01-30-2022 08:29-0400 Body mass index (BMI) [Ratio] 36.1 kg/m2 Dr. Sarai Watkins Work Phone: [facility] Work Phone: 01-30-2022 08:29-0400 Body weight 104.[address] Sarai Watkins Work Phone: [facility] Work Phone: 01-30-2022 08:29-0400 Diastolic blood pressure 77 mm[Hg] Dr. Sarai Watkins Work Phone: [facility] Work Phone: 01-30-2022 08:29-0400 Heart rate 73 /min Dr. Sarai Watkins Work Phone: [facility] Work Phone: 01-30-2022 08:29-0400 Respiratory rate 18 /min Dr. Sarai Watkins Work Phone: [facility] Work Phone: 01-30-2022 08:29-0400 SaO2% (BldA) [Mass fraction] 95 % Dr. Sarai Watkins Work Phone: [facility] Work Phone: 01-30-2022 08:29-0400 Systolic blood pressure 117 mm[Hg] Dr. Sarai Watkins Work Phone: [facility] Work Phone: 01-30-2022 08:29-0400 Body height 170.[address] Sarai Watkins Work Phone: [facility] Work Phone: 01-30-2022 08:29-0400 Body mass index (BMI) [Ratio] 36.1 kg/m2 Dr. Sarai Watkins Work Phone: [facility] Work Phone: 01-30-2022 08:29-0400 Body weight 104.[address] Sarai Watkins Work Phone: [facility] Work Phone: 01-30-2022 08:29-0400 Diastolic blood pressure 77 mm[Hg] Dr. Sarai Watkins Work Phone: [facility] Work Phone: 01-30-2022 08:29-0400 Heart rate 73 /min Dr. Sarai Watkins Work Phone: [facility] Work Phone: 01-30-2022 08:29-0400 Respiratory rate 18 /min Dr. Sarai Watkins Work Phone: [facility] Work Phone: 01-30-2022 08:29-0400 SaO2% (BldA) [Mass fraction] 95 % Dr. Sarai Watkins Work Phone: [facility] Work Phone: 01-30-2022 08:29-0400 Systolic blood pressure 117 mm[Hg] Dr. Sarai Watkins Work Phone: [facility] Work Phone: 01-24-2022 13:51-0400 Body temperature 98.2 [degF] Dr. Sarai Watkins Work Phone: [facility] Work Phone: 01-24-2022 13:51-0400 Diastolic blood pressure 73 mm[Hg] Dr. Sarai Watkins Work Phone: [facility] Work Phone: 01-24-2022 13:51-0400 Heart rate 74 /min Dr. Sarai Watkins Work Phone: [facility] Work Phone: 01-24-2022 13:51-0400 Respiratory rate 16 /min Dr. Sarai Watkins Work Phone: [facility] Work Phone: 01-24-2022 13:51-0400 SaO2% (BldA) [Mass fraction] 94 % Dr. Sarai Watkins Work Phone: [facility] Work Phone: 01-24-2022 13:51-0400 Systolic blood pressure 110 mm[Hg] Dr. Sarai Watkins Work Phone: [facility] Work Phone: 01-21-2022 06:58-0400 Body temperature 98 [degF] Dr. Sarai Watkins Work Phone: [facility] Work Phone: 01-21-2022 06:58-0400 Diastolic blood pressure 83 mm[Hg] Dr. Sarai Watkins Work Phone: [facility] Work Phone: 01-21-2022 06:58-0400 Heart rate 59 /min Dr. Sarai Watkins Work Phone: [facility] Work Phone: 01-21-2022 06:58-0400 Respiratory rate 16 /min Dr. Sarai Watkins Work Phone: [facility] Work Phone: 01-21-2022 06:58-0400 SaO2% (BldA) [Mass fraction] 93 % Dr. Sarai Watkins Work Phone: [facility] Work Phone: 01-21-2022 06:58-0400 Systolic blood pressure 136 mm[Hg] Dr. Sarai Watkins Work Phone: [facility] Work Phone: 01-20-2022 21:52-0400 Body height 170.[address] Sarai Watkins Work Phone: [facility] Work Phone: 01-20-2022 21:52-0400 Body mass index (BMI) [Ratio] 36.8 kg/m2 Dr. Sarai Watkins Work Phone: [facility] Work Phone: 01-20-2022 21:52-0400 Body weight 106.[address] Sarai Watkins Work Phone: [facility] Work Phone: 01-20-2022 21:01-0400 Body temperature 97.7 [degF] Dr. Sarai Watkins Work Phone: [facility] Work Phone: 01-20-2022 21:01-0400 Diastolic blood pressure 103 mm[Hg] Dr. Sarai Watkins Work Phone: [facility] Work Phone: 01-20-2022 21:01-0400 Heart rate 78 /min Dr. Sarai Watkins Work Phone: [facility] Work Phone: 01-20-2022 21:01-0400 Respiratory rate 20 /min Dr. Sarai Watkins Work Phone: [facility] Work Phone: 01-20-2022 21:01-0400 SaO2% (BldA) [Mass fraction] 95 % Dr. Sarai Watkins Work Phone: [facility] Work Phone: 01-20-2022 21:01-0400 Systolic blood pressure 174 mm[Hg] Dr. Sarai Watkins Work Phone: [facility] Work Phone: 01-20-2022 17:17-0400 Body height 167.[address] Sarai Watkins Work Phone: [facility] Work Phone: 01-20-2022 17:17-0400 Body mass index (BMI) [Ratio] 37.3 kg/m2 Dr. Sarai Watkins Work Phone: [facility] Work Phone: 01-20-2022 17:17-0400 Body weight 104.[address] Sarai Watkins Work Phone: [facility] Work Phone: 01-15-2022 14:30-0400 Diastolic blood pressure 88 mm[Hg] Dr. Sarai Watkins Work Phone: [facility] Work Phone: 01-15-2022 14:30-0400 Systolic blood pressure 152 mm[Hg] Dr. Sarai Watkins Work Phone: [facility] Work Phone: 01-15-2022 14:30-0400 Diastolic blood pressure 88 mm[Hg] Dr. Sarai Watkins Work Phone: [facility] Work Phone: 01-15-2022 14:30-0400 Systolic blood pressure 152 mm[Hg] Dr. Sarai Watkins Work Phone: [facility] Work Phone: 01-15-2022 13:56-0400 Body weight 107.[address] Sarai Watkins Work Phone: [facility] Work Phone: 01-15-2022 13:56-0400 Heart rate 86 /min Dr. Sarai Watkins Work Phone: [facility] Work Phone: 01-15-2022 13:56-0400 SaO2% (BldA) [Mass fraction] 91 % Dr. Sarai Watkins Work Phone: [facility] Work Phone: 01-15-2022 13:56-0400 Body weight 107.[address] Sarai Watkins Work Phone: [facility] Work Phone: 01-15-2022 13:56-0400 Heart rate 86 /min Dr. Sarai Watkins Work Phone: [facility] Work Phone: 01-15-2022 13:56-0400 SaO2% (BldA) [Mass fraction] 91 % Dr. Sarai Watkins Work Phone: [facility] Work Phone: 01-11-2022 12:47-0400 Body mass index (BMI) [Ratio] 36.4 kg/m2 Dr. Sarai Watkins Work Phone: [facility] Work Phone: 01-11-2022 12:47-0400 Body temperature 98.1 [degF] Dr. Sarai Watkins Work Phone: [facility] Work Phone: 01-11-2022 12:47-0400 Body weight 104.[address] Sarai Watkins Work Phone: [facility] Work Phone: 01-11-2022 12:47-0400 Diastolic blood pressure 91 mm[Hg] Dr. Sarai Watkins Work Phone: [facility] Work Phone: 01-11-2022 12:47-0400 Heart rate 94 /min Dr. Sarai Watkins Work Phone: [facility] Work Phone: 01-11-2022 12:47-0400 Respiratory rate 18 /min Dr. Sarai Watkins Work Phone: [facility] Work Phone: 01-11-2022 12:47-0400 SaO2% (BldA) [Mass fraction] 94 % Dr. Sarai Watkins Work Phone: [facility] Work Phone: 01-11-2022 12:47-0400 Systolic blood pressure 146 mm[Hg] Dr. Sarai Watkins Work Phone: [facility] Work Phone: 01-11-2022 12:47-0400 Body mass index (BMI) [Ratio] 36.4 kg/m2 Dr. Sarai Watkins Work Phone: [facility] Work Phone: 01-11-2022 12:47-0400 Body temperature 98.1 [degF] Dr. Sarai Watkins Work Phone: [facility] Work Phone: 01-11-2022 12:47-0400 Body weight 104.[address] Sarai Watkins Work Phone: [facility] Work Phone: 01-11-2022 12:47-0400 Diastolic blood pressure 91 mm[Hg] Dr. Sarai Watkins Work Phone: [facility] Work Phone: 01-11-2022 12:47-0400 Heart rate 94 /min Dr. Sarai Watkins Work Phone: [facility] Work Phone: 01-11-2022 12:47-0400 Respiratory rate 18 /min Dr. Sarai Watkins Work Phone: [facility] Work Phone: 01-11-2022 12:47-0400 SaO2% (BldA) [Mass fraction] 94 % Dr. Sarai Watkins Work Phone: [facility] Work Phone: 01-11-2022 12:47-0400 Systolic blood pressure 146 mm[Hg] Dr. Sarai Watkins Work Phone: [facility] Work Phone: 01-02-2022 08:25-0400 Diastolic blood pressure 66 mm[Hg] Dr. Sarai Watkins Work Phone: [facility] Work Phone: 01-02-2022 08:25-0400 Heart rate 81 /min Dr. Sarai Watkins Work Phone: [facility] Work Phone: 01-02-2022 08:25-0400 Respiratory rate 16 /min Dr. Sarai Watkins Work Phone: [facility] Work Phone: 01-02-2022 08:25-0400 SaO2% (BldA) [Mass fraction] 98 % Dr. Sarai Watkins Work Phone: [facility] Work Phone: 01-02-2022 08:25-0400 Systolic blood pressure 113 mm[Hg] Dr. Sarai Watkins Work Phone: [facility] Work Phone: 01-02-2022 08:17-0400 Body temperature 97.1 [degF] Dr. Sarai Watkins Work Phone: [facility] Work Phone: 01-02-2022 06:46-0400 Body height 170.[address] Sarai Watkins Work Phone: [facility] Work Phone: 01-02-2022 06:46-0400 Body mass index (BMI) [Ratio] 35.9 kg/m2 Dr. Sarai Watkins Work Phone: [facility] Work Phone: 01-02-2022 06:46-0400 Body weight [address] Sarai Watkins Work Phone: [facility] Work Phone: 10-11-2021 11:39-0500 Body weight 104.[address] Sarai Watkins Work Phone: [facility] Work Phone: 10-11-2021 11:39-0500 Diastolic blood pressure 68 mm[Hg] Dr. Sarai Watkins Work Phone: [facility] Work Phone: 10-11-2021 11:39-0500 Heart rate 100 /min Dr. Sarai Watkins Work Phone: [facility] Work Phone: 10-11-2021 11:39-0500 Respiratory rate 18 /min Dr. Sarai Watkins Work Phone: [facility] Work Phone: 10-11-2021 11:39-0500 SaO2% (BldA) [Mass fraction] 95 % Dr. Sarai Watkins Work Phone: [facility] Work Phone: 10-11-2021 11:39-0500 Systolic blood pressure 132 mm[Hg] Dr. Sarai Watkins Work Phone: [facility] Work Phone: 10-10-2021 19:45-0500 Diastolic blood pressure 70 mm[Hg] Dr. Sarai Watkins Work Phone: [facility] Work Phone: 10-10-2021 19:45-0500 Heart rate 80 /min Dr. Sarai Watkins Work Phone: [facility] Work Phone: 10-10-2021 19:45-0500 Respiratory rate 22 /min Dr. Sarai Watkins Work Phone: [facility] Work Phone: 10-10-2021 19:45-0500 SaO2% (BldA) [Mass fraction] 96 % Dr. Sarai Watkins Work Phone: [facility] Work Phone: 10-10-2021 19:45-0500 Systolic blood pressure 159 mm[Hg] Dr. Sarai Watkins Work Phone: [facility] Work Phone: 10-10-2021 15:46-0500 Body mass index (BMI) [Ratio] 37.3 kg/m2 Dr. Sarai Watkins Work Phone: [facility] Work Phone: 10-10-2021 15:46-0500 Body temperature 96.8 [degF] Dr. Sarai Watkins Work Phone: [facility] Work Phone: 10-10-2021 15:46-0500 Body weight 104.[address] Sarai Watkins Work Phone: [facility] Work Phone: 01-20-2021 13:14-0400 Body temperature 97.39 [degF] Sumeet FlockTAG Work Phone: [employer] Work Phone: 01-20-2021 13:14-0400 Diastolic blood pressure 50 mm[Hg] Sumeet Pozsgay DO Work Phone: [facility] Work Phone: 01-20-2021 13:14-0400 Heart rate 65 /min Sumeet Pozsgay DO Work Phone: [facility] Work Phone: 01-20-2021 13:14-0400 Respiratory rate 18 /min Sumeet Pozsgay DO Work Phone: [facility] Work Phone: 01-20-2021 13:14-0400 SaO2% (BldA) [Mass fraction] 95 % Sumeet Pozsgay DO Work Phone: [facility] Work Phone: 01-20-2021 13:14-0400 Systolic blood pressure 108 mm[Hg] Sumeet Pozsgay DO Work Phone: [facility] Work Phone: 01-18-2021 05:45-0400 Body height 170.2 cm Sumeet Pozsgay DO Work Phone: [facility] Work Phone: 01-18-2021 05:45-0400 Body mass index (BMI) [Ratio] 39.63 kg/m2 Sumeet Pozsgay DO Work Phone: [facility] Work Phone: 01-18-2021 05:45-0400 Body weight 114.76 kg Sumeet Pozsgay DO Work Phone: [facility] Work Phone: 01-11-2021 10:45-0400 SaO2% (BldA) [Mass fraction] 93 % Sumeet Moffettsgay DO Work Phone: [facility] Work Phone: 01-11-2021 10:14-0400 Body height 170.2 cm Sumeet Mckeonzsgay DO Work Phone: [facility] Work Phone: 01-11-2021 10:14-0400 Body mass index (BMI) [Ratio] 39.63 kg/m2 Sumeet Mckeonzsgay DO Work Phone: [facility] Work Phone: 01-11-2021 10:14-0400 Body temperature 97.7 [degF] Sumeet Pozsgay DO Work Phone: [facility] Work Phone: 01-11-2021 10:14-0400 Body weight 114.76 kg Sumeet Mckeonzsgay DO Work Phone: [facility] Work Phone: 01-11-2021 10:14-0400 Diastolic blood pressure 98 mm[Hg] Sumeet Pozsgay DO Work Phone: [facility] Work Phone: 01-11-2021 10:14-0400 Heart rate 67 /min Sumeet Pozsgay DO Work Phone: [facility] Work Phone: 01-11-2021 10:14-0400 Respiratory rate 22 /min Sumeet Pozsgay DO Work Phone: [facility] Work Phone: 01-11-2021 10:14-0400 Systolic blood pressure 161 mm[Hg] Sumeet Pozsgay DO Work Phone: [facility] Work Phone: 01-03-2021 08:25-0400 Body mass index (BMI) [Ratio] 38.8 kg/m2 Dr. Sarai Watkins Work Phone: [facility] Work Phone: 11-30-2020 09:26-0400 BP Diastolic 100 mm[Hg] Eriberto ALAMOA Work Phone: 11-30-2020 09:26-0400 BP Systolic 162 mm[Hg] Eriberto ALAMOA Work Phone: 11-30-2020 09:26-0400 Pulse (Heart Rate) 97 /min Eriberto ALAMOA Work Phone: 11-30-2020 09:26-0400 Pulse Oximetry 94 % Eriberto ALAMOA Work Phone: 11-30-2020 09:26-0400 Respiratory Rate 18 /min Eriberto ALAMOA Work Phone: 11-30-2020 08:16-0400 BMI (Body Mass Index) 39.94 kg/m2 Eriberto ALAMOA Work Phone: 11-30-2020 08:16-0400 Body Temperature 98.4 [degF] Eriberto ALAMOA Work Phone: 11-30-2020 08:16-0400 Body weight 115.67 kg Eriberto ALAMOA Work Phone: 11-30-2020 08:16-0400 Height 170.2 cm Eriberto DIANE Work Phone: 08-04-2020 14:34-0500 Body Temperature 97.39 [degF] [facility] [place] 08-04-2020 14:34-0500 BP Diastolic 87 mm[Hg] [facility] , [place] 08-04-2020 14:34-0500 BP Systolic 135 mm[Hg] [facility] [place] 08-04-2020 14:34-0500 Pulse (Heart Rate) 89 /min [facility] [place] 08-04-2020 14:34-0500 Pulse Oximetry 94 % [facility] [place] 08-04-2020 14:34-0500 Respiratory Rate 20 /min [facility] [place] 08-04-2020 06:00-0500 BMI (Body Mass Index) 42.02 kg/m2 [facility] [place] 08-04-2020 06:00-0500 Body weight 121.7 kg [facility] , [place] 08-01-2020 23:06-0500 Height 170.2 cm [place], [place] Encounters Encounter Date Encounter Type Care Provider Facility Start: 06-15-2025 ambulatory SARAI LUND [facility] Start: 06-07-2025 End: 06-07-2025 Refill Denisericardo Villalpando Raisa DO Work Phone: [facility] Rhe[facility]ology Comment on above: Anti-phospholipid an tibody syndrome Start: 05-20-2025 End: 05-20-2025 Patient encounter procedure Jasmyne BREAUX -[facility] Work Phone: Start: 05-20-2025 End: 05-20-[address] Sarai Watkins MD Work Phone: -[facility] Start: 05-05-2025 ambulatory Sarai Watkins Facility:[facility] Start: 02-08-2025 End: 02-08-[address] Ike Gibbs MD -[facility] Work Phone: Start: 02-08-2025 End: 02-08-[address] Sarai Watkins MD Work Phone: [facility] Work Phone: Start: 01-26-2025 ambulatory Sarai Watkins Facility:[facility] Start: 01-11-2025 End: 03-13-2025 Follow-up encounter Denise Kline Work Phone: [facility] Comment on above: CBC and Differential , Creatinine, serum, Hepatic Function Panel, Additional followed-up results: 7 Start: 01-06-2025 End: 01-06-2025 ambulatory SARAI WATKINS [facility] Start: 01-06-2025 End: 01-06-2025 Office outpatient visit 25 minutes Denise Kline Work Phone: [facility] Comment on above: Anti-phospholipid an tibody syndrome (Primary Dx); Positive double stranded DNA antibody test; Severe pulmonary hypertension (HCC); High risk medication use Start: 12-30-2024 ambulatory Jasmyne BREAUX Facility:[facility] Start: 12-14-2024 End: 12-29-2024 ambulatory Jasmyne BREAUX Facility:[facility] Start: 12-14-2024 End: 12-29-2024 Discharged Recurring Jasmyne Sparks PA -Laboratory Work Phone: Start: 12-09-2024 Registered Recurring Jasmyne Sparks PA -Laboratory Work Phone: Start: 12-07-2024 End: 12-07-[address] Sarai Watkins MD Work Phone: [facility] Work Phone: Start: 12-07-2024 End: 12-07-2024 Patient encounter procedure Jasmyne Sparks PA -Laboratory Work Phone: Start: 12-07-2024 End: 12-07-2024 ambulatory Jasmyne BREAUX Facility:[facility] Start: 11-05-2024 End: 11-05-2024 Discharged Recurring Jasmyne BREAUX -Laboratory Work Phone: Start: 11-05-2024 End: 11-05-2024 Patient encounter procedure Jasmyne BREAUX -[facility] Work Phone: Start: 11-05-2024 End: 11-05-[address] Sarai Watkins MD Work Phone: [facility] Work Phone: Start: 10-18-2024 End: 10-18-[address] Sarai Watkins MD -Laboratory, [facility] Start: 10-18-2024 End: 10-18-2024 ambulatory Sarai Watkins Facility:[facility] Start: 09-29-2024 Non-patient / Non-visit Dr. Tracee Gibbs MD -[facility] Work Phone: Start: 09-28-2024 End: 09-28-[address] Ike Gibbs MD -Laboratory, Specimen Work Phone: Start: 09-28-2024 Non-patient / Non-visit Dr. Lisha DIAZ -[facility] Work Phone: Start: 09-27-2024 Non-patient / Non-visit Dr. Kay Dwyer MD -[facility] Start: 09-27-2024 End: 09-29-2024 Evaluation and management of inpatient Dr. Ike Gibbs MD -Progressive Care Unit Work Phone: Start: 09-27-2024 End: 09-27-[address] Ike Gibbs MD -[facility] Work Phone: Start: 09-27-2024 End: 09-28-2024 ambulatory Sarai Watkins Facility:[facility] Start: 09-17-2024 End: 09-17-2024 Patient encounter procedure Jasmyne BREAUX -Laboratory Work Phone: Start: 09-17-2024 End: 09-17-2024 ambulatory Jasmyne BREAUX Facility:[facility] Start: 09-10-2024 End: 09-10-[address] Ike Gibbs MD -Laboratory Work Phone: Start: 09-10-2024 End: 09-10-2024 ambulatory Jasmyne BREAUX Facility:[facility] Start: 08-06-2024 End: 08-06-[address] Sarai Watkins MD -Laboratory, [facility] Start: 08-06-2024 End: 08-06-2024 ambulatory Sarai Watkins Facility:[facility] Start: 07-08-2024 End: 07-31-2024 ambulatory Jasmyne BREAUX Facility:[facility] Start: 06-28-2024 End: 06-28-2024 ambulatory Sarai Watkins Facility:[facility] Start: 01-08-2024 Refill Denise Kline DO Work Phone: [facility] Comment on above: Anti-phospholipid an tibody syndrome (HCC) Start: 01-06-2024 Refill Denise Kline DO Work Phone: [facility] Comment on above: Anti-phospholipid an tibody syndrome (HCC) (Primary Dx) Start: 12-24-2023 End: 12-24-[address] Sarai Watkins Work Phone: [facility] Work Phone: Start: 12-24-2023 End: 12-24-[address] Sarai Watkins Work Phone: [facility], [facility] Work Phone: Start: 12-11-2023 Non-patient / Non-visit Dr. Saeid Watkins Work Phone: [facility] Start: 12-11-2023 End: 12-11-[address] Sarai Watkins Work Phone: [facility] Work Phone: Start: 12-11-2023 End: 12-11-[address] Sarai Watkins Work Phone: [facility]-Cardiovascular Services Work Phone: Start: 12-09-2023 End: 12-09-2023 ambulatory RONAL MACDONALD Facility:[facility] Comment on above: Antiphospholipid ant ibody positive (Primary Dx) Start: 12-09-2023 End: 12-09-2023 Patient encounter procedure Ronal Macdonald MD Work Phone: [facility] Start: 11-13-2023 End: 11-17-2023 ambulatory SARAI LUND [facility] Start: 11-13-2023 End: 11-13-2023 Office outpatient visit 25 minutes Denise Kline DO Work Phone: [facility] Comment on above: Antiphospholipid ant ibody positive (Primary Dx); Positive double stranded DNA antibody test; Severe pulmonary hypertension (HCC); High risk medication use Start: 10-15-2023 End: 10-15-[address] Sarai Watkins Work Phone: [facility] Work Phone: Start: 10-10-2023 End: 10-10-[address] Sarai Watkins Work Phone: [facility] Work Phone: Start: 10-10-2023 End: 10-10-[address] Sarai Watkins Work Phone: [facility] Start: 08-29-2023 End: 08-29-[address] Sarai Watkins Work Phone: [facility] Work Phone: Start: 07-30-2023 End: 07-30-[address] Sarai Watkins Work Phone: [facility] Work Phone: Start: 07-30-2023 End: 07-30-[address] Sarai Watkins Work Phone: [facility]-Laboratory, [place] Work Phone: Start: 07-01-2023 End: 07-01-[address] Sarai Watkins Work Phone: [facility] Work Phone: Start: 07-01-2023 End: 07-01-[address] Sarai Watkins Work Phone: [facility]-Laboratory Work Phone: Start: 06-30-2023 End: 06-30-[address] Sarai Watkins Work Phone: [facility] Work Phone: Start: 06-30-2023 End: 06-30-[address] [facility] [place] Work Phone: Start: 06-26-2023 Non-patient / Non-visit Dr. Saeid Watkins Work Phone: [facility] Work Phone: Start: 06-25-2023 Non-patient / Non-visit Dr. Saeid Watkins Work Phone: [facility] Work Phone: Start: 06-24-2023 End: 06-26-2023 Evaluation and management of inpatient Dr. Sarai Watkins Work Phone: [facility]-Progressive Care Unit Work Phone: Start: 06-13-2023 End: 06-13-[address] Sarai Watkins Work Phone: [facility] Work Phone: Start: 06-04-2023 End: 06-04-[address] Sarai Watkins Work Phone: [facility]-Radiology, [facility] Work Phone: Start: 05-21-2023 End: 05-25-2023 ambulatory SARAI WATKINS [facility] Start: 05-21-2023 End: 05-21-2023 Office outpatient visit 40 minutes Mili Moncada MD Work Phone: [facility] Comment on above: Antiphospholipid ant ibody positive (Primary Dx); Severe pulmonary hypertension (HCC) Start: 01-09-2023 End: 01-09-2023 ambulatory SARAI WATKINS Facility:[facility] Start: 01-09-2023 End: 01-09-2023 Patient encounter procedure Bartolo Baker MD Work Phone: Orthopaedics Comment on above: Chronic left shoulde r pain (Primary Dx); Shoulder impingement Start: 01-09-2023 End: 01-09-2023 Subsequent hospital visit by physician [facility] Work Phone: Radiology Comment on above: Left shoulder pain, unspecified chronicity [M25.512] Start: 01-03-2023 End: 01-03-[address] Sarai Watkins Work Phone: [facility] Work Phone: Start: 01-03-2023 End: 01-03-[address] Sarai Watkins Work Phone: [facility] Start: 01-02-2023 Orders Only Bartolo Baker MD Work Phone: Orthopaedics Comment on above: Left shoulder pain, unspecified chronicity (Primary Dx) Start: 12-24-2022 End: 12-24-[address] Sarai Watkins Work Phone: [facility] Work Phone: Start: 12-24-2022 End: 12-24-[address] Sraai Watkins Work Phone: [facility]-Radiology, [place] Start: 12-23-2022 Refill Mili Moncada MD Work Phone: [facility] Comment on above: Primary osteoarthrit is involving multiple joints (Primary Dx); Anti-phospholipid antibody syndrome (HCC) Start: 12-19-2022 End: 12-19-2022 ambulatory SARAI WATKINS Facility:[facility] Start: 12-19-2022 End: 12-19-2022 ambulatory Pulm Lab [facility] Work Phone: [facility] Comment on above: Spirometry Start: 12-19-2022 End: 12-19-2022 Patient encounter procedure Pulm Lab [facility] Work Phone: [facility] Start: 11-09-2022 End: 11-09-2022 Emergency department patient visit Dr. Sarai Watkins Work Phone: [facility]-Emergency Department Start: 11-09-2022 End: 11-09-2022 Patient encounter procedure Emerson BREAUX Work Phone: [facility] Comment on above: Abdominal pain, unsp ecified abdominal location (Primary Dx) Start: 10-31-2022 Chart abstracting Shane Clemons APRN.CNP Work Phone: Pulmonary Medicine Start: 10-23-2022 End: 10-23-[address] Sarai Watkins Work Phone: [facility] Start: 10-17-2022 End: 10-17-[address] Sarai Watkins Work Phone: [facility] Work Phone: Start: 10-17-2022 End: 10-17-[address] Sarai Watkins Work Phone: [facility]-Laboratory Start: 10-17-2022 Telephone encounter Melanie Posadas MD Work Phone: Pulmonary Medicine Comment on above: New PH Referral Start: 10-17-2022 End: 10-17-2022 Office outpatient visit 25 minutes Mili Moncada MD Work Phone: [facility] Comment on above: Severe pulmonary hyp ertension (HCC) (Primary Dx); Anti-phospholipid antibody syndrome (HCC) Start: 10-10-2022 Non-patient / Non-visit Dr. Saeid Watkins Work Phone: [facility] Start: 10-10-2022 End: 10-10-2022 Emergency department patient visit Dr. Sarai Watkins Work Phone: [facility]-Emergency Department Start: 09-28-2022 End: 09-28-2022 Emergency department patient visit Dr. Sarai Watkins Work Phone: [facility]-Emergency Department Start: 09-16-2022 Non-patient / Non-visit Dr. Saeid Watkins Work Phone: [facility] Start: 09-15-2022 Non-patient / Non-visit Dr. Saeid Watkins Work Phone: [facility] Start: 09-15-2022 End: 09-15-2022 Non-patient / Non-visit Dr. Sarai Watkins Work Phone: [facility] Start: 09-14-2022 Non-patient / Non-visit Dr. Saeid Watkins Work Phone: [facility] Start: 09-14-2022 End: 09-14-2022 Non-patient / Non-visit Dr. Sarai Watkins Work Phone: [facility] Start: 09-13-2022 Non-patient / Non-visit Dr. Saeid Watkins Work Phone: [facility] Start: 09-13-2022 End: 09-16-2022 Evaluation and management of inpatient Dr. Sarai Watkins Work Phone: [facility]-Progressive Care Unit Start: 09-11-2022 End: 09-11-[address] Sarai Watkins Work Phone: [facility] Work Phone: Start: 09-11-2022 End: 09-11-[address] Sarai Watkins Work Phone: [facility], [facility] Start: 08-13-2022 End: 08-13-[address] Sarai Watkins Work Phone: [facility] Start: 08-09-2022 End: 08-09-[address] Sarai Watkins Work Phone: [facility] Work Phone: Start: 08-09-2022 End: 08-09-[address] Sarai Watkins Work Phone: [facility] Start: 07-18-2022 End: 07-18-[address] Sarai Watkins Work Phone: [facility] [facility] Work Phone: Start: 07-18-2022 End: 07-18-[address] Sarai Watkins Work Phone: [facility] Start: 06-18-2022 End: 06-18-[address] Sarai Watkins Work Phone: [facility] Work Phone: Start: 06-18-2022 End: 06-18-[address] Sarai Watkins Work Phone: [facility]Laboratory Start: 06-11-2022 End: 06-11-[address] Sarai Watkins Work Phone: [facility] Start: 06-10-2022 End: 06-10-[address] Sarai Watkins Work Phone: [facility] Work Phone: Start: 06-10-2022 End: 06-10-[address] Sarai Watikns Work Phone: [facility] Start: 05-31-2022 End: 05-31-[address] Sarai Watkins Work Phone: [facility] Start: 05-23-2022 Non-patient / Non-visit Dr. Saeid Watkins Work Phone: [facility] Inpatient Physicians Start: 05-23-2022 Non-patient / Non-visit Dr. Saeid Watkins Work Phone: [facility] Start: 05-22-2022 Non-patient / Non-visit Dr. Saeid Watkins Work Phone: [facility] Start: 05-21-2022 Non-patient / Non-visit Dr. Saeid Watkins Work Phone: [facility] Start: 05-21-2022 End: 05-23-2022 Evaluation and management of inpatient Dr. Sarai Watkins Work Phone: [facility]-Progressive Care Unit Start: 05-21-2022 End: 05-23-[address] Sarai Watkins Work Phone: [facility] Work Phone: Start: 05-20-2022 Non-patient / Non-visit Dr. Saeid Watkins Work Phone: [facility] Start: 05-19-2022 Non-patient / Non-visit Dr. Saeid Watkins Work Phone: [facility] In[facility] Start: 05-18-2022 Non-patient / Non-visit Dr. Saeid Watkins Work Phone: [facility] Start: 05-17-2022 Non-patient / Non-visit Dr. Saeid Watkins Work Phone: [facility] Start: 05-17-2022 Non-patient / Non-visit Dr. Saeid Watkins Work Phone: [facility] In[facility] Start: 05-16-2022 Non-patient / Non-visit Dr. Saeid Watkins Work Phone: [facility] Start: 05-16-2022 End: 05-20-2022 Evaluation and management of inpatient [facility] Start: 05-16-2022 Evaluation and manag ement of inpatient Dr. Sarai Watkins [facility] Start: 04-20-2022 End: 04-20-2022 Emergency department patient visit Dr. Sarai Watkins Work Phone: [facility]Emergency Department Start: 04-10-2022 End: 04-10-[address] Sarai Watkins Work Phone: [facility] Start: 03-13-2022 Non-patient / Non-visit Dr. Saeid Watkins Work Phone: [facility] Start: 03-13-2022 End: 03-13-[address] Sarai Watkins Work Phone: [facility]Cardiovascular Services Start: 03-12-2022 End: 03-12-[address] Sarai Watkins Work Phone: [facility] Gastroenterology Start: 02-13-2022 End: 02-13-2022 Phys/qhp telephone evaluation 11-20 min Mili Moncada MD Work Phone: [facility] Comment on above: Anti-phospholipid an tibody syndrome (HCC) (Primary Dx); Thrombocytopenia (HCC); Low serum vitamin D; Pulmonary arterial hypertension (HCC) Start: 02-12-2022 End: 02-12-[address] Sarai Watkins Work Phone: [facility] Start: 01-30-2022 End: 01-30-[address] Sarai Watkins Work Phone: [facility] Start: 01-30-2022 End: 01-30-[address] Sarai Watkins Work Phone: [facility] Start: 01-24-2022 Non-patient / Non-visit Dr. Saeid Watkins Work Phone: [facility] Inpatient Physicians Start: 01-23-2022 Non-patient / Non-visit Dr. Saeid Watkins Work Phone: [facility] Start: 01-22-2022 Non-patient / Non-visit Dr. Saeid Watkins Work Phone: [facility] Start: 01-21-2022 Non-patient / Non-visit Dr. Saeid Watkins Work Phone: [facility] Start: 01-20-2022 End: 01-24-2022 Evaluation and management of inpatient [facility] Sarai Watkins [facility] Start: 01-20-2022 Non-patient / Non-visit Dr. Saeid Watkins Work Phone: [facility] Start: 01-20-2022 Evaluation and manag ement of inpatient Dr. Sarai Watkins [facility] Start: 01-15-2022 End: 01-15-[address] Sarai Watkins Work Phone: [facility] Start: 01-11-2022 End: 01-11-[address] Sarai Watkins Work Phone: [facility] Start: 01-02-2022 Non-patient / Non-visit Dr. Saeid Watkins Work Phone: [facility] Start: 01-02-2022 End: 01-02-2022 Admission to same day surgery center Dr. Sarai Watkins Work Phone: [facility]-Endoscopy Start: 12-25-2021 End: 12-25-[address] Sarai Watkins Work Phone: [facility]Cardi[facility] Start: 12-17-2021 End: 12-17-[address] Sarai Watkins Work Phone: [facility] Start: 11-22-2021 End: 11-22-2021 Phys/qhp telephone evaluation 21-30 min Mili Moncada MD Work Phone: [facility] Comment on above: Primary osteoarthrit is involving multiple joints (Primary Dx) Start: 10-25-2021 End: 10-25-[address] Sarai Watkins Work Phone: [facility] Start: 10-11-2021 End: 10-11-[address] Sarai Watkins Work Phone: [facility] Start: 10-11-2021 End: 10-11-[address] Sarai Watkins Work Phone: [facility] Start: 10-10-2021 End: 10-10-2021 Emergency department patient visit Dr. Sarai Watkins Work Phone: [facility]Emergency Department Start: 09-26-2021 End: 09-26-2021 Subsequent hospital visit by physician Xr [facility] Work Phone: Radiology Comment on above: Hand injury, right, initial encounter [S69.91XA] Start: 09-11-2021 End: 09-12-[address] Sarai Watkins Work Phone: [facility]-Physical Therapy Start: 09-03-2021 End: 09-03-[address] Sarai Watkins Work Phone: [facility] Start: 02-23-2021 End: 02-23-2021 Subsequent hospital visit by physician Sukumar [facility] [employer] Work Phone: Radiology Comment on above: Hand injury, left, i nitial encounter [S69.92XA] Start: 01-18-2021 End: 01-20-2021 Subsequent hospital visit by physician Sumeet Street DO Work Phone: [facility] Comment on above: Hiatal hernia (Prima ry Dx) Start: 01-11-2021 End: 01-11-2021 Subsequent hospital visit by physician Sumeet Street DO Work Phone: [facility] Pre-Admit Testing Comment on above: Arrived Start: 11-30-2020 End: 11-30-2020 Subsequent hospital visit by physician Eriberto Hines Work Phone: [facility] Comment on above: Arrived Start: 09-05-2020 End: 09-05-2020 Subsequent hospital visit by physician Sukumar [facility] [employer] Work Phone: Radiology Comment on above: Thumb pain, left [M7 9.645] Start: 08-01-2020 End: 08-04-2020 Emergency department patient visit Magali Easley Work Phone: [facility]Med Comment on above: Hiatal hernia (Prima ry Dx); Intractable abdominal pain Procedures Date Procedure Procedure Detail Performing Clinician Start: 01-06-2025 Urnls dip stick/tabl et reagent auto microscopy Denise Irasema Raisa [employer] Work Phone: Start: 01-06-2025 End: 01-06-2025 Creatinine blood Denise Villalpando Raisa DO Work Phone: Start: 01-06-2025 Hepatic function panel Denise Irasema Raisa [employer] Work Phone: Start: 11-05-2024 Evaluation of diagno stic study results Dr. Sarai Watkins MD Work Phone: Start: 10-18-2024 Measurement of renal function Dr. Sarai Watkins MD Work Phone: Comment on above: GFR Calc Start: 09-28-[address] Sarai Watkins MD Work Phone: Start: 09-27-[address] Sarai Watkins MD Work Phone: Start: 09-27-2024 Measurement of occul t blood in stool specimen using immunoassay Dr. Sarai Watkins MD Work Phone: Start: 09-27-2024 X-ray of chest, PA a nd lateral views Dr. Sarai Watkins MD Work Phone: Start: 12-24-[address] Saeid Watkins Work Phone: Start: 06-30-2023 End: 06-30-2023 Plain x-ray of pelvis and lower extremity Dr. Sarai Watkins Work Phone: Start: 06-30-2023 X-ray of lumbar spin e, two or three views Dr. Sarai Watkins Work Phone: Start: 06-25-2023 Legionella pneumophi la antigen assay Dr. Sarai Watkins Work Phone: Start: 06-25-2023 Streptococcus pneumo niae Antigen (M Dr. Sarai Watkins Work Phone: Start: 06-25-2023 CT of thorax with contrast Dr. Sarai Watkins Work Phone: Start: 06-24-2023 Plain chest X-ray Dr. Lucero Watkins Work Phone: Start: 06-24-[address] Sarai Watkins Work Phone: Start: 06-24-2023 SARS-CoV-2 & FLU Ant igen (Rapid) Dr. Sarai Watkins Work Phone: Start: 06-04-2023 Plain chest X-ray Dr. Lucero Watkins Work Phone: Start: 06-04-2023 Investigation of tra nsfusion reaction Dr. Sarai Watkins Work Phone: Start: 06-04-2023 Respiratory microbia l culture Dr. Sarai Watkins Work Phone: Start: 01-09-2023 Arthrocentesis aspir &/inj major jt/bursa w/o us Bartolo Baker MD Work Phone: Start: 01-09-2023 Radex shoulder compl ete minimum 2 views Bartolo Baker MD Work Phone: Start: 01-03-[address] Sarai Watkins Work Phone: Start: 01-03-[address] Sarai Watkins Work Phone: Start: 12-24-2022 Plain chest X-ray Dr. Lucero Watkins Work Phone: Start: 12-19-2022 Pulmonary stress testing Shane Clemons APRN.[facility] Work Phone: Start: 11-09-2022 Computed tomography of abdomen and pelvis with intravenous contrast Dr. Sarai Watkins Work Phone: Start: 11-09-2022 Plain chest X-ray Dr. Lucero Watkins Work Phone: Start: 10-10-2022 Plain chest X-ray Dr. Lucero Watkins Work Phone: Start: 09-13-2022 CT of chest without contrast Dr. Sarai Watkins Work Phone: Start: 09-13-2022 Plain chest X-ray Dr. Lucero Watkins Work Phone: Start: 09-11-2022 Plain chest X-ray Dr. Lucero Watkins Work Phone: Start: 08-09-[address] Sarai Watkins Work Phone: Start: 08-09-[address] Sarai Watkins Work Phone: Start: 05-21-2022 Plain chest X-ray Dr. Lucero Watkins Work Phone: Start: 05-21-2022 CT of head without contrast Dr. Sarai Watkins Work Phone: Start: 05-18-2022 MRI of brain without contrast Dr. Sarai Watkins Work Phone: Start: 05-18-2022 CT of head without contrast Dr. Sarai Watkins Work Phone: Start: 05-16-2022 Plain chest X-ray Dr. Lucero Watkins Work Phone: Start: 01-22-[address] Sarai Watkins Work Phone: Start: 01-22-[address] Sarai Watkins Work Phone: Start: 01-02-2022 End: 01-02-[address] Sarai Watkins Work Phone: Start: 01-02-2022 End: 01-02-[address] Sarai Watkins Work Phone: Start: 10-10-2021 Plain chest X-ray Dr. Lucero Watkins Work Phone: Start: 09-26-2021 Radex hand minimum 3 views Adeline Frankel APRN.[employer] Work Phone: Start: 02-23-2021 Radex hand minimum 3 views Carolee BREAUX-Brian Work Phone: Start: 01-20-2021 Assay of magnesium Norma Martinez MD Work Phone: Start: 01-20-2021 BASIC METABOLIC PANE L W/ REFLEX TO MG FOR LOW K Liliana Martinez MD Work Phone: Start: 01-19-2021 BASIC METABOLIC PANE L W/ REFLEX TO MG FOR LOW K Julian Padilla MD Work Phone: Start: 01-19-2021 ADD ON LAB TEST Elisabe th A [place] DO Work Phone: Start: 01-19-2021 Radiologic exam upr gi trc single contrast study Liliana Martinez MD Work Phone: Start: 01-19-2021 Ecg routine ecg w/le ast 12 lds w/i&r Julian Padilla MD Work Phone: Start: 01-19-2021 Assay of magnesium Norma Martinez MD Work Phone: Start: 01-19-2021 BASIC METABOLIC PANE L W/ REFLEX TO MG FOR LOW K Liliana Martinez MD Work Phone: Start: 01-18-2021 OPERATIVE REPORT 3m Sca nning Start: 01-18-2021 Level iv surg pathol ogy gross&microscopic exam Sumeet Street DO Work Phone: Start: 01-11-2021 Ecg routine ecg w/le ast 12 lds w/i&r Bushra Ledbetter [employer] Work Phone: Start: 11-30-2020 HM ENDOSCOPY REPORT 3m Scanning Start: 09-05-2020 Radex hand minimum 3 views Steven Prather FUNCTIONAL TE[employer] Work Phone: Start: 08-04-2020 HOME O2 EVAL (DESATU RATION SCREEN) Raven Smileyuger Work Phone: Start: 08-04-2020 Assay of magnesium Earline Ford Work Phone: Start: 08-04-2020 Basic metabolic pane l calcium total Claudia Logan Work Phone: Start: 08-04-2020 Blood count complete auto&auto difrntl wbc Liz Shine Rylan Work Phone: Start: 08-03-2020 Assay of magnesium Ruben kenan Das Work Phone: Start: 08-03-2020 OPERATIVE REPORT 3m Sca nning Start: 08-03-2020 Level iv surg pathol ogy gross&microscopic exam Sumeet Street Work Phone: Start: 08-03-2020 ADD ON LAB TEST Nidia Ford Work Phone: Start: 08-03-2020 Assay of magnesium Gemm a Zack Hearn Work Phone: Start: 08-03-2020 Assay of thyroid sti mulating hormone tsh Gemma LBrooke Partidae Work Phone: Start: 08-03-2020 Basic metabolic pane l calcium total Maya eHarn Work Phone: Start: 08-03-2020 Blood count complete auto&auto difrntl wbc Maya Hearn Work Phone: Start: 08-03-2020 Gonadotropin chorion ic qualitative Maya Hearn Work Phone: Start: 08-03-2020 Hepatic function panel Maya Hearn Work Phone: Start: 08-02-2020 Blood typing serologic abo Liz Fagan Work Phone: Start: 08-02-2020 Hepatic function panel Maya Hearn Work Phone: Start: 08-02-2020 PROTIME/INR & PTT Liz Fagan Work Phone: Start: 08-02-2020 Hepatobil syst imag inc gb w/pharma intervenj Liz Fagan Work Phone: Start: 08-02-2020 Ct thorax w/contrast material Ondina A [place] Work Phone: Start: 08-02-2020 Us abdominal real ti me w/image limited Ondina A Eduardo Work Phone: Start: 08-02-2020 Assay of lactate Elisab eth A Eduardo Work Phone: Start: 07-07-2018 Colonoscopy Mili Igoe M D Work Phone: Start: 11-10-2013 Lipid 1996 panel - S miguelangel or Plasma [employer] Work Phone: Start: 10-22-2009 Mammography Melanie ricks MD Work Phone: Bacteria identified in Blood by Culture Dr. Sarai Watkins Work Phone: Investigation of tra nsfusion reaction Dr. Sarai Watkins Work Phone: Respiratory microbia l culture Dr. Sarai Watkins Work Phone: SARS-CoV-2 & FLU Ant igen (Rapid) Dr. Sarai Watkins Work Phone: Streptococcus pneumo niae Antigen (M Dr. Sarai Watknis Work Phone: Viral antigen assay Dr. Sarai Watkins Work Phone: Plan of Treatment Date Care Activity Detail Author Start: 2033 Pneumococcal 0-64 years Vaccine (2 of 2) Pneumococcal 0-64 years Vaccine (2 of 2) And[employer] Work Phone: Start: 2033 Pneumococcal Vaccine: Ped or At-Risk (2 of 2 - PPSV23) Pneumococcal Vaccine: Ped or At-Risk (2 of 2 - PPSV23) [facility] Start: 04-20-2032 Tetanus vaccination Tetanus: Every 10yrs [facility] Start: 04-20-2032 Urine microalbumin profile DTaP,Tdap,Td Vaccine (4 - Td or Tdap) [facility] Start: 01-03-2032 Screening for malignant neoplasm of colon [facility] Start: 02-09-2030 DTaP/Tdap/Td vaccine (2 - Td) DTaP/Tdap/Td vaccine (2 - Td) [place] Start: 02-09-2030 DTaP/Tdap/Td vaccine (3 - Td) DTaP/Tdap/Td vaccine (3 - Td) [employer] Work Phone: Start: 02-09-2030 Tetanus vaccination Tetanus: Every 10yrs [facility] Start: 07-07-2028 Colonoscopy COLONOSCOPY [facility] Start: 07-07-2028 COLORECTAL CANCER SCREENING COLORECTAL CANCER SCREENING [facility] Start: 07-07-2028 Screening for malignant neoplasm of colon [facility] Start: 07-13-2025 End: 07-13-2025 Patient encounter procedure [facility] Start: 06-23-2025 ambulatory Ambulatory Facility:[facility] Start: 05-20-2025 End: 05-20-2025 Evaluation of diagnostic study results [facility] Start: 05-02-2025 COVID-19 Vaccine ( season) COVID-19 Vaccine ( season) [facility] Start: 05-02-2025 Influenza vaccination Influenza Vaccine (#1) [facility] Start: 11-05-2024 Patient referral [facility] Work Phone: Start: 10-22-2024 Diabetes Screening Diabetes Screening [facility] Start: 09-29-2024 Patient discharge [facility] Start: 09-27-2024 End: 09-28-2024 [facility] Start: 09-27-2024 Following clinical pathway protocol [facility] Start: 09-27-2024 Ambulation without limitation [facility] Start: 09-27-2024 Assessment of risk of venous thromboembolism [facility] Start: 09-27-2024 Catheterization of vein [facility] Start: 09-27-2024 Elevation of affected extremity [facility] Start: 09-27-2024 Inhalation therapy procedure [facility] Start: 09-27-2024 Insertion of catheter into peripheral vein [facility] Start: 09-27-2024 Measuring intake and output [facility] Start: 09-27-2024 Notification of physician [facility] Start: 09-27-2024 Oxygen therapy [facility] Start: 09-27-2024 Patient education [facility] Start: 09-27-2024 Providing care according to standard [facility] Start: 09-27-2024 Vital signs measurements [facility] Start: 09-27-2024 Admission procedure [facility] Start: 09-27-2024 Hospital admission, emergency, from emergency room, medical nature [facility] Start: 09-27-2024 Patient referral to dietitian [facility] Start: 05-19-2024 End: 05-19-2024 Patient encounter procedure 05/19/2024 1:00 PM EDT Office Visit [facility] [address] [place] [address] [place] [address] Mili Moncada MD [address] [place] [id number] [facility] Start: 05-02-2024 Covid-19 Vaccine () Covid-19 Vaccine () [facility] Start: 05-02-2024 Influenza vaccination Influenza Vaccine (#1) [facility] Start: 02-19-2024 End: 02-19-2024 Patient encounter procedure 02/19/2024 8:45 AM EDT Office Visit [facility] [address] [facility] [place] [address] Denise Kline, DO [address] [place] [id number] [facility] Start: 08-29-2023 Evaluation of diagnostic study results [facility] Start: 06-26-2023 Patient discharge [facility] Start: 06-26-2023 [facility] Start: 06-24-2023 Assessment of risk of venous thromboembolism [facility] Start: 06-24-2023 Elevation of head of bed [facility] Start: 06-24-2023 Fluid restriction [facility] Start: 06-24-2023 Inhalation therapy procedure [facility] Start: 06-24-2023 Insertion of catheter into peripheral vein [facility] Start: 06-24-2023 Measuring intake and output [facility] Start: 06-24-2023 Oxygen therapy [facility] Start: 06-24-2023 Patient education [facility] Start: 06-24-2023 Providing care according to standard [facility] Start: 06-24-2023 Provision of activity privileges [facility] Start: 06-24-2023 Referral to service [facility] Start: 06-24-2023 End: 06-24-2023 [facility] Start: 06-24-2023 Following clinical pathway protocol [facility] Start: 06-24-2023 Verification routine [facility] Start: 06-24-2023 Legionella pneumophila Ag [Presence] in Urine [facility] Start: 06-24-2023 Streptococcus pneumoniae antigen assay [facility] Start: 06-24-2023 [facility] Start: 06-24-2023 Hospital admission, emergency, from emergency room, medical nature [facility] Start: 06-24-2023 Admission procedure [facility] Start: 06-24-2023 [facility] Start: 05-02-2023 Covid-19 Vaccine ( season) Covid-19 Vaccine () [facility] Start: 05-02-2023 Influenza vaccination [facility] Start: 04-09-2023 End: 04-09-2023 Patient encounter procedure [facility] Start: 11-01-2022 End: 08-31-2023 CBC W Auto Differential panel - Blood CBC + DIFF Lab Routine Dyspnea and respiratory abnormalities Expected: 11/01/2022, Expires: 08/31/2023 [facility] Work Phone: Comment on above: Expected: 11/01/2022, Expires: 3 Start: 11-01-2022 End: 08-31-2023 Comprehensive metabolic 2000 panel - Serum or Plasma COMP METABOLIC PANEL Lab Routine Pulmonary hypertension (HCC) Expected: 11/01/2022, Expires: 08/31/2023 [facility] Work Phone: Comment on above: Expected: 11/01/2022, Expires: 3 Start: 11-01-2022 End: 08-31-2023 Natriuretic peptide.B prohormone N-Terminal [Mass/volume] in Serum or Plasma NT PRO BNP Lab Routine Dyspnea and respiratory abnormalities Expected: 11/01/2022, Expires: 08/31/2023 [facility] Work Phone: Comment on above: Expected: 11/01/2022, Expires: 3 Start: 10-10-2022 [facility] Start: 09-16-2022 Patient discharge [facility] Start: 09-15-2022 [facility] Start: 09-14-2022 Inhalation therapy procedure [facility] Start: 09-13-2022 Application of intermittent pneumatic compression device [facility] Start: 09-13-2022 Aspiration precautions [facility] Start: 09-13-2022 Assessment of risk of venous thromboembolism [facility] Start: 09-13-2022 Fall prevention [facility] Start: 09-13-2022 Incentive spirometry [facility] Start: 09-13-2022 Insertion of catheter into peripheral vein [facility] Start: 09-13-2022 Introduction of urinary catheter [facility] Start: 09-13-2022 Measuring intake and output [facility] Start: 09-13-2022 Oxygen therapy [facility] Start: 09-13-2022 Physiotherapy of chest [facility] Start: 09-13-2022 Providing care according to standard [facility] Start: 09-13-2022 Provision of activity privileges [facility] Start: 09-13-2022 Referral to occupational therapist [facility] Start: 09-13-2022 Referral to service [facility] Start: 09-13-2022 [facility] Start: 09-13-2022 Following clinical pathway protocol [facility] Start: 09-13-2022 Admission procedure [facility] Start: 09-13-2022 Continuous pulse oximetry [facility] Work Phone: Start: 09-13-2022 Dual pressure spontaneous ventilation support [facility] Work Phone: Start: 09-13-2022 [facility] Work Phone: Start: 09-11-2022 Evaluation of diagnostic study results [facility] Start: 09-11-2022 Basic metabolic panel calcium total METABOLIC PANEL TOTAL CA [facility] Start: 09-11-2022 Blood count complete auto&auto difrntl wbc COMPLETE CBC W/AUTO DIFF WBC [facility] Start: 09-11-2022 Collection venous blood venipuncture ROUTINE VENIPUNCTURE [facility] Start: 09-11-2022 Natriuretic peptide ASSAY OF NATRIURETIC PEPTIDE [facility] Start: 09-11-2022 Radiologic exam chest 2 views X-RAY EXAM CHEST 2 VIEWS [facility] Start: 07-22-2022 DIABETES SCREEN DIABETES SCREEN [facility] Start: 07-22-2022 Diabetes Screening Diabetes Screening [facility] Start: 05-23-2022 Patient discharge [facility] Work Phone: Start: 05-22-2022 Vital signs measurements [facility] Work Phone: Start: 05-22-2022 T4 free measurement [facility] Work Phone: Start: 05-21-2022 Following clinical pathway protocol [facility] Work Phone: Start: 05-21-2022 Ambulation without limitation [facility] Work Phone: Start: 05-21-2022 Assessment of risk of venous thromboembolism [facility] Work Phone: Start: 05-21-2022 Insertion of catheter into peripheral vein [facility] Work Phone: Start: 05-21-2022 Measuring intake and output [facility] Work Phone: Start: 05-21-2022 Oxygen therapy [facility] Work Phone: Start: 05-21-2022 Patient education [facility] Work Phone: Start: 05-21-2022 Providing care according to standard [facility] Work Phone: Start: 05-21-2022 Referral to rig builder helper [facility] Work Phone: Start: 05-21-2022 Referral to service [facility] Work Phone: Start: 05-21-2022 Seizure precautions [facility] Work Phone: Start: 05-21-2022 [facility] Work Phone: Start: 05-21-2022 Admission procedure [facility] Work Phone: Start: 05-21-2022 Verification routine [facility] Work Phone: Start: 05-21-2022 End: 05-22-2022 [facility] Work Phone: Start: 05-20-2022 [facility] Work Phone: Start: 05-20-2022 Patient discharge [facility] Work Phone: Start: 05-18-2022 Following clinical pathway protocol [facility] Work Phone: Start: 05-17-2022 [facility] Work Phone: Start: 05-17-2022 Care planning and problem solving actions [facility] Work Phone: Start: 05-17-2022 Care planning and problem solving actions [facility] Work Phone: Start: 05-17-2022 Following clinical pathway protocol [facility] Work Phone: Start: 05-16-2022 [facility] Work Phone: Start: 05-16-2022 Oxygen therapy [facility] Work Phone: Start: 05-16-2022 Assessment of risk of venous thromboembolism [facility] Work Phone: Start: 05-16-2022 Catheterization of vein [facility] Work Phone: Start: 05-16-2022 Insertion of catheter into peripheral vein [facility] Work Phone: Start: 05-16-2022 Measuring intake and output [facility] Work Phone: Start: 05-16-2022 Medication education [facility] Work Phone: Start: 05-16-2022 Providing care according to standard [facility] Work Phone: Start: 05-16-2022 Provision of activity privileges [facility] Work Phone: Start: 05-16-2022 Referral to rig builder helper [facility] Work Phone: Start: 05-16-2022 [facility] Work Phone: Start: 05-16-2022 Admission procedure [facility] Work Phone: Start: 05-16-2022 Following clinical pathway protocol [facility] Work Phone: Start: 05-16-2022 End: 05-16-2022 Blood culture [facility] Work Phone: Start: 05-16-2022 Blood chemistry [facility] Work Phone: Start: 05-16-2022 End: 05-17-2022 [facility] Work Phone: Start: 05-16-2022 Inhalation therapy procedure [facility] Work Phone: Start: 05-16-2022 [facility] Work Phone: Start: 05-02-2022 Influenza vaccination [facility] Start: 04-20-2022 Simple repair scalp/neck/ax/genit/trunk 2.5cm/< RPR S/N/AX/GEN/TRNK 2.5CM/< [facility] Work Phone: Start: 01-30-2022 Evaluation of diagnostic study results [facility] Work Phone: Start: 01-24-2022 Patient discharge [facility] Work Phone: Start: 01-21-2022 Inhalation therapy procedure [facility] Work Phone: Start: 01-20-2022 End: 01-21-2022 [facility] Work Phone: Start: 01-20-2022 Following clinical pathway protocol [facility] Work Phone: Start: 01-20-2022 Assessment of risk of venous thromboembolism [facility] Work Phone: Start: 01-20-2022 Notification of physician [facility] Work Phone: Start: 01-20-2022 Vital signs measurements [facility] Work Phone: Start: 01-20-2022 Admission procedure [facility] Work Phone: Start: 01-20-2022 Creatinine measurement Creatinine monitoring [facility] Work Phone: Start: 01-20-2022 Potassium monitoring Potassium monitoring [facility] Work Phone: Start: 01-20-2022 Screening for malignant neoplasm of colon Fecal occult blood test (FOBT,FIT) [facility] Start: 01-02-2022 Colonoscopy w/biopsy single/multiple COLONOSCOPY AND BIOPSY [facility] Work Phone: Start: 01-02-2022 Colsc flx w/rmvl of tumor polyp lesion snare tq COLONOSCOPY W/LESION REMOVAL [facility] Work Phone: Start: 01-02-2022 Egd transoral biopsy single/multiple EGD BIOPSY SINGLE/MULTIPLE [facility] Work Phone: Start: 01-02-2022 Patient discharge [facility] Work Phone: Start: 10-29-2021 COVID-19 Vaccine (4 - Booster for Pfizer series) COVID-19 Vaccine (4 - Booster for Pfizer series) [facility] Start: 08-23-2021 COVID-19 VACCINE (4 - Booster for Pfizer series) COVID-19 VACCINE (4 - Booster for Pfizer series) [facility] Start: 08-04-2021 Creatinine measurement Creatinine monitoring [facility] [place] Start: 08-04-2021 Potassium monitoring Potassium monitoring [place], [place] Start: 05-02-2021 Influenza vaccination [facility] Start: 02-01-2021 End: 02-01-2021 Patient encounter procedure 02/01/2021 Office Visit [facility] Sumeet Street, DO [address], [address] [place] [address] [phone] [facility] [place] [facility] Start: 01-18-2021 End: 01-18-2021 Patient encounter procedure 01/18/2021 Appointment General Surgery Sumeet Street, DO [address], [address] [place] [address] [phone] [facility] Surgery Start: 12-12-2020 End: 12-12-2020 Office Visit 12/12/2020 Office Visit [facility] Aminah Sumeet, DO [address], [address] [place] [address] [phone] [facility] [place] [facility] Start: 05-02-2020 Influenza vaccination Flu vaccine (#1) [place], [place] Start: 11-30-2019 Urine microalbumin profile DTAP,TDAP,TD (2 - Td or Tdap) [facility] Start: 11-10-2018 Lipid 1996 panel - Serum or Plasma Lipid Screening [facility] Start: 11-10-2018 Lipid panel Lipid Screening [facility] Start: 11-10-2018 LIPID SCREEN LIPID SCREEN [facility] Start: 2018 Administration of herpes zoster vaccine Zoster Vaccines (1 of 2) [facility] Start: 2018 Screening for malignant neoplasm of breast Breast cancer screen [facility] Start: 2018 Screening for malignant neoplasm of colon [facility] Start: 2018 Shingles Vaccine (1 of 2) Shingles Vaccine (1 of 2) [employer] [place] Start: 2018 SHINGRIX VACCINE (1 of 2) SHINGRIX VACCINE (1 of 2) [facility] Start: 11-12-2014 PNEUMOCOCCAL (2 - PCV) PNEUMOCOCCAL (2 - PCV) [facility] Start: 11-12-2014 [facility]neum[facility] Start: 11-12-2014 Pneumococcal Vaccine: Age 50+ (2 of 2 - PCV) Pneumococcal Vaccine: Age 50+ (2 of 2 - PCV) [facility] Start: 11-12-2014 Pneumococcal Vaccine: Ped or At-Risk (2 - PCV) Pneumococcal Vaccine: Ped or At-Risk (2 - PCV) [facility] Start: 11-12-2014 Pneumococcal Vaccine: Ped or At-Risk (2 of 2 - PCV) Pneumococcal Vaccine: Ped or At-Risk (2 of 2 - PCV) [facility] Start: 2013 COLOGUARD (FIT-DNA) COLOGUARD (FIT-DNA) [facility] Start: [address] COLONOGRAPHY [facility] Start: 2013 FECAL OCCULT BLOOD FECAL OCCULT BLOOD [facility] Start: 2013 Screening for malignant neoplasm of colon [facility] Start: 2013 SIGMOIDOSCOPY SIGMOIDOSCOPY [facility] Start: 10-22-2010 Mammography [facility] Start: 10-22-2010 Screening for malignant neoplasm of breast Mammogram Screening [facility] Start: 2008 Diabetes screen Diabetes screen [facility] Start: 2008 Screening for malignant neoplasm of breast Mammogram [facility] Start: 1989 Screening for malignant neoplasm of cervix [facility] Start: 11-09-1987 Hepatitis B Vaccine (1 of 3 - 19+ 3-dose series) Hepatitis B Vaccine (1 of 3 - 19+ 3-dose series) [facility] Start: 1986 ANNUAL PCP TEAM CHRONIC DISEASE VISIT ANNUAL PCP TEAM CHRONIC DISEASE VISIT [facility] Start: 1986 BP CONTROLLED (<130/80) BP CONTROLLED (<130/80) [facility] Start: 1986 Hepatitis C screening Hepatitis C Screening [facility] Start: 1986 HEPATITIS C SCREENING HEPATITIS C SCREENING [facility] Start: 1986 HIV SCREENING HIV SCREENING [facility] Start: 1986 HIV screening HIV Screening [facility] Start: 11-09-1983 HIV screening [facility] Start: 1980 Depression screening using PHQ-9 (Patient Health Questionnaire 9) score [facility] Start: 1978 Lipid panel Lipid screen [place], [place] Start: 1974 Pneumococcal 0-64 years Vaccine (1 of 1 - PPSV23) Pneumococcal 0-64 years Vaccine (1 of 1 - PPSV23) [place] Start: 11-09-1971 History and physical examination, annual for health maintenance Wellness Visit [facility] Start: 1968 HEPATITIS B (1 of 3 - 3-dose series) HEPATITIS B (1 of 3 - 3-dose series) [facility] Start: 1968 Hepatitis B Vaccine (1 of 3 - 3-dose series) Hepatitis B Vaccine (1 of 3 - 3-dose series) [facility] Start: 1968 Hepatitis C screening Hepatitis C screen [facility] Work Phone: Start: 1968 Screening for malignant neoplasm of cervix Pap Smear [facility] Start: 1968 Screening for malignant neoplasm of colon [facility] [id number]. tumor marker [Units/volume] in Serum or Plasma [facility] End: 01-06-2026 Antibody to single and double stranded DNA measurement Anti-DNA Double-Stranded Antibody Lab Routine Anti-phospholipid antibody syndrome Positive double stranded DNA antibody test 1 Occurrences starting 01/06/2025 until 01/06/2026 [facility] Work Phone: Comment on above: 1 Occurrences starting 01/06/2025 until 01/06/2026 End: 10-17-2023 Autoantibody measurement MyoMarker Panel 3 Plus Lab Routine Severe pulmonary hypertension (HCC) 1 Occurrences starting 10/17/2022 until 10/17/2023 [facility] Work Phone: Comment on above: 1 Occurrences starting 10/17/2022 until 10/17/2023 Bacteria identified in Blood by Culture Blood Culture [facility] Work Phone: Basic metabolic 2008 panel with ionized calcium - Serum or Plasma [facility] Basic Metabolic Pane l w/ Reflex to MG Basic Metabolic Panel w/ Reflex to MG Lab Routine Daily until discontinued starting 01/19/2021, 2 completed [facility] Work Phone: Comment on above: Daily until discontinued starting 2020, 2 completed End: 05-21-2024 BETA-2 GLYCOPROTEIN 1 ANTIBODIES, IGG AND IGM, SERUM BETA-2 GLYCOPROTEIN 1 ANTIBODIES, IGG AND IGM, SERUM Lab Routine Antiphospholipid antibody positive 1 Occurrences starting 05/21/2023 until 05/21/2024 [facility] Work Phone: Comment on above: 1 Occurrences starting 05/21/2023 until 05/21/2024 BETA-2 GLYCOPROTEIN 1 ANTIBODIES, IGG AND IGM, SERUM BETA-2 GLYCOPROTEIN 1 ANTIBODIES, IGG AND IGM, SERUM Lab Routine Antiphospholipid antibody positive 05/21/2023 2:48 PM EDT [facility] Blood ammonia measurement [facility] Work Phone: Blood chemistry [facility] Work Phone: Blood culture [facility] Work Phone: C reactive protein [Mass/volume] in Serum or Plasma [facility] Work Phone: C reactive protein [Mass/volume] in Serum or Plasma [facility] C reactive protein [Mass/volume] in Serum or Plasma [facility] CBC auto differential [facility] [place] [place] Comment on above: Tomorrow AM until discontinued starting 08/04/2020, 1 completed Daily until disconti nued starting 01/19/2021, 2 completed CBC W Auto Different ial panel - Blood [facility] Work Phone: CBC W Auto Different ial panel - Blood [facility] CBC W Auto Different ial panel - Blood [facility] End: 02-13-2023 Centromere Antibody, IgG Centromere Antibody, IgG Lab Routine Pulmonary arterial hypertension (HCC) 1 Occurrences starting 02/13/2022 until 02/13/2023 [facility] Comment on above: 1 Occurrences starting 02/13/2022 until 02/13/2023 End: 11-12-2024 Chromatin Antibodies Chromatin Antibodies Lab Routine Antiphospholipid antibody positive 1 Occurrences starting 11/13/2023 until 11/12/2024 [facility] Work Phone: Comment on above: 1 Occurrences starting 11/13/2023 until 11/12/2024 Chromatin Antibodies Chromatin A ntibodies Lab Routine Antiphospholipid antibody positive 11/13/2023 9:41 AM EDT [facility] Copper [Moles/volume ] in Serum or Plasma [facility] Work Phone: Cytoplasmic ANCA Screen [facility] End: 11-02-2023 Echocardiography ECHO Cardiology Routine Pulmonary hypertension (HCC) 1 Occurrences starting 11/01/2022 until 11/02/2023 [facility] Work Phone: Comment on above: 1 Occurrences starting 11/01/2022 until 11/02/2023 EKG 12 Lead [facility] Work Phone: Erythrocyte sediment ation rate [facility] Work Phone: Evaluation of diagno stic study results [facility] Work Phone: Ferritin [Mass/volum e] in Serum or Plasma [facility] Work Phone: Ferritin [Mass/volum e] in Serum or Plasma [facility] Ferritin [Mass/volum e] in Serum or Plasma [facility] Gamma glutamyl transferase measurement [facility] Work Phone: Gamma glutamyl transferase measurement [facility] Haptoglobin [Mass/vo lume] in Serum or Plasma [facility] Work Phone: Hemoglobin A1c/Hemoglobin.total in Blood [facility] Hemoglobin A1c/Hemoglobin.total in Blood [facility] Home BIPAP or CPAP Home BIPAP or CPAP Respiratory Care Routine Daily until discontinued starting 01/18/2021 [facility] Work Phone: Comment on above: Daily until discontinued starting 2020 Imaging of liver [facility] Intermittent pulse oximetry Pulse Oximetry Spot Check Respiratory Care Routine Every 4hr until discontinued starting 01/18/2021 [facility] Work Phone: Comment on above: Every 4hr until discontinued starting Iron and Iron bindin g capacity panel - Serum or Plasma [facility] Lactate dehydrogenas e measurement [facility] Lipid 1996 panel - S miguelangel or Plasma [facility] End: 02-13-2023 Liver function tests - general Liver Fibrosis, Fibro Test Lab Routine Thrombocytopenia (HCC) 1 Occurrences starting 02/13/2022 until 02/13/2023 [facility] Comment on above: 1 Occurrences starting 02/13/2022 until 02/13/2023 Liver stiffness by US.transient elastography [facility] LUNG DIFFUSION CAPAC ITY (DLCO) LUNG DIFFUSION CAPACITY (DLCO) PFT Routine Pulmonary hypertension (HCC) Ordered: 11/01/2022 [facility] Work Phone: Comment on above: Ordered: 11/01/2022 LUNG VOLUMES LUNG VOLUMES PFT Routine Pulmonary hypertension (HCC) Ordered: 11/01/2022 [facility] Work Phone: Comment on above: Ordered: 11/01/2022 Magnesium [Mass/volu me] in Serum or Plasma Magnesium Lab Routine Daily until discontinued starting 01/19/2021, 2 completed [facility] Work Phone: Comment on above: Daily until discontinued starting 2020, 2 completed Magnesium measurement [facility] [place] Comment on above: 08,1999 (respiratory use only) until d iscontinued starting 08/04/2020 0800,1999 (respirato ry use only) until discontinued starting 01/18/2021 End: 02-13-2023 Measurement of beta 2-glycoprotein 1 antibody Beta-2 Glycoprotein Antibodies Lab Routine Anti-phospholipid antibody syndrome (HCC) 1 Occurrences starting 02/13/2022 until 02/13/2023 [facility] Comment on above: 1 Occurrences starting 02/13/2022 until 02/13/2023 Mitochondria Ab [Presence] in Serum [facility] Work Phone: Mitochondria Ab [Presence] in Serum [facility] Nebulizer therapy [facility] Routine 0600, 1000, 1400, 1800, 2200 until discontinued starting [facility]03/2020 [facility]: 0600, 1000, 1400, 1800, 2200 until disco ntinued starting 08/03/2020 Oxygen therapy [[facility] Data Set] [facility] Comment on above: Daily until discontinued starting 2019 Daily until disconti nued starting 01/18/2021 Patient Education [facility] Work Phone: Patient referral [facility] Work Phone: Phosphate [Mass/volu me] in Serum or Plasma Phosphorus Lab Routine Daily until discontinued starting 01/19/2021, 2 completed [facility] Work Phone: Comment on above: Daily until discontinued starting 2020, 2 completed End: 02-13-2023 Platelets [#/volume] in Blood Platelet Count, Citrate Lab Routine Thrombocytopenia (HCC) 1 Occurrences starting 02/13/2022 until 02/13/2023 [facility] Work Phone: Comment on above: 1 Occurrences starting 02/13/2022 until 02/13/2023 Procedure [facility] Procedure [facility] Prothrombin time [facility] Work Phone: Prothrombin time [facility] Prothrombin time [facility] End: 12-01-2023 Pulmonary ventilation & perfusion imaging NM LUNG VENT / PERF VQ Radiology Routine Pulmonary hypertension (HCC) 1 Occurrences starting 11/01/2022 until 12/01/2023 [facility] Work Phone: Comment on above: 1 Occurrences starting 11/01/2022 until 12/01/2023 End: 02-13-2023 RNA Polymerase III Antibody IgG, Blood RNA Polymerase III Antibody IgG, Blood Lab Routine Pulmonary arterial hypertension (HCC) 1 Occurrences starting 02/13/2022 until 02/13/2023 [facility] Comment on above: 1 Occurrences starting 02/13/2022 until 02/13/2023 End: 02-13-2023 Serum anti-cardiolipin measurement Cardiolipin Antibodies Lab Routine Anti-phospholipid antibody syndrome (HCC) 1 Occurrences starting 02/13/2022 until 02/13/2023 [facility] Comment on above: 1 Occurrences starting 02/13/2022 until 02/13/2023 End: 05-21-2024 Serum anti-cardiolipin measurement Cardiolipin Antibodies Lab Routine Antiphospholipid antibody positive 1 Occurrences starting 05/21/2023 until 05/21/2024 [facility] Comment on above: 1 Occurrences starting 05/21/2023 until 05/21/2024 Serum anti-cardiolip in measurement Cardiolipin Antibodies Lab Routine Antiphospholipid antibody positive 05/21/2023 2:48 PM EDT [facility] SIX MINUTE WALK SIX MINUTE WALK PFT Routine Pulmonary hypertension ([facility]) Ordered: 11/01/2022 [facility] Work Phone: Comment on above: Ordered: 11/01/2022 Smooth muscle Ab [Presence] in Serum [facility] Work Phone: Smooth muscle Ab [Presence] in Serum [facility] Spirometry panel Incentive mayra metry Respiratory Care Routine Every 1hr while awake until discontinued starting 01/18/2021 [facility] Work Phone: Comment on above: Every 1hr while awake until discontinued starting 01/18/2021 SPIROMETRY WITH DILA TOR IF OBSTRUCTED SPIROMETRY WITH DILATOR IF OBSTRUCTED PFT Routine Pulmonary hypertension (HCC) Ordered: 11/01/2022 [facility] Work Phone: Comment on above: Ordered: 11/01/2022 T4 free measurement [facility] Work Phone: Thyroid stimulating hormone measurement [facility] Ultrasound elastography [facility] Work Phone: Ultrasound elastography [facility] US Abdomen limited [facility] Work Phone: US Abdomen limited [facility] US Heart [facility] Work Phone: Vitamin D, 25-hydrox y measurement [facility] Vitamin D, 25-hydrox y measurement [facility] End: 02-01-2024 XR SHOULDER GENERAL 3V OR MORE AP/TRUE AP/OTHER LEFT XR SHOULDER GENERAL 3V OR MORE AP/TRUE AP/OTHER LEFT Radiology Routine Left shoulder pain, unspecified chronicity 1 Occurrences starting 01/02/2023 until 02/01/2024 [facility] Work Phone: Comment on above: 1 Occurrences starting 01/02/2023 until 02/01/2024 [facility] Immunizations Immunization Date Immunization Notes Care Provider [facility] 06-28-2024 influenza virus vacc ine, unspecified formulation Denise Kline DO Work Phone: [facility] 06-25-2023 influenza, injectabl e, quadrivalent, preservative free Dr. Sarai Watkins Work Phone: [facility] 06-25-2023 influenza virus vacc ine, unspecified formulation Xr [facility] Work Phone: [facility] 05-31-2022 influenza virus vacc ine, unspecified formulation Xr [facility] Work Phone: [facility] 04-20-2022 tetanus toxoid, redu vicki diphtheria toxoid, and acellular pertussis vaccine, adsorbed Dr. Sarai Watkins Work Phone: [facility] 06-28-2021 Covid (Pfizer) Dr. Sarai wood Work Phone: [facility] 11-28-2020 Covid (Pfizer) Dr. Sarai wood Work Phone: [facility] 11-07-2020 Covid (Pfizer) Dr. Sarai wood Work Phone: [facility] 07-07-2018 influenza, injectabl e, quadrivalent, preservative free Dr. Sarai Watkins Work Phone: [facility] 07-07-2018 influenza, seasonal, injectable Dr. Sarai Watkins Work Phone: [facility] 11-12-2013 pneumococcal polysaccharide vaccine, 23 valent Melanie Posadas MD Work Phone: [facility] 11-29-2009 tetanus toxoid, redu vicki diphtheria toxoid, and acellular pertussis vaccine, adsorbed Melanie Posadas MD Work Phone: [facility] Payers Date Payer Category Payer Miscellaneous or Other [employer] H[employer] [id number] 2024 Unknown [id number] 2024 Self-pay [id number] 2024 Unknown [id number] 2020 Medicaid [id number] 2020 Unknown [id number] 2020 Unknown [id number] 2017 Unknown [id number] 1999 Unknown [id number] 1968 Unknown [id number] 903 1968 Unknown [id number] 1968 Unknown [id number] 903 1968 Unknown [id number] 903 Unknown [id number] Unknown [id number] Unknown [id number] 462 Unknown [id number] 462 Unknown [id number] 2.840.1.351332.3.579.2. 462 Unknown [id number] 2.840.1.677526.3.579.2. 462 Unknown [id number] 2.840.1.789580.3.579.2. 462 Unknown [id number] 2.840.1.735667.3.579.2. 462 Unknown [id number] 2.840.1.277800.3.579.2. 462 Unknown [id number] 2.840.1.657846.3.579.2. 462 Unknown [id number] 2.840.1.348398.3.579.2. 462 Unknown [id number] 2.840.1.694377.3.579.2. 462 Unknown [id number] 2.840.1.755280.3.579.2. 462 Unknown [id number] 2.840.1.293780.3.579.2. 462 Unknown [id number] 2.840.1.303037.3.579.2. 462 Unknown [id number] 2.840.1.851388.3.579.2. 462 Unknown [id number] 2.16.840.1.653633.3.579.2. 462 Unknown [id number] 2.16.840.1.623067.3.579.2. 462 Unknown [id number] 2.16.840.1.895226.3.579.2. 462 Unknown [id number] 2.16.840.1.716637.3.579.2. 462 Unknown [id number] 2.16.840.1.470943.3.579.2. 462 Unknown [id number] 2.16.840.1.236140.3.579.2. 462 Unknown [id number] 2.16.840.1.374181.3.579.2. 462 Unknown [id number] 2.16.840.1.137678.3.579.2. 462 Social History Date Type Detail Facility Start: 08-03-2020 End: 01-18-2021 Tobacco smoking status NHIS Never smoker [place] Start: 08-03-2020 End: 05-21-2023 Tobacco use and exposure Never used [place] Start: 08-03-2020 End: 05-21-2023 Alcohol intake Current drinker of alcohol (finding) [place] Start: 08-01-2020 Alcohol Comment 1/2 bottle of wild turkey [place] Start: 1970 Sex Assigned At Not on file [place] Start: 08-06-2020 End: 10-16-2022 Exposure to SARS-CoV-2 (event) Not sure [place] Start: 08-16-2020 History SDOH Alcohol Frequency 99 [employer] Work Phone: Start: 08-16-2020 History SDOH Alcohol Binge 5 [employer] Work Phone: Start: 01-11-2021 Alcohol Comment 1/2 bottle of wild turkey/day; [employer] Work Phone: Start: 10-22-2021 End: 05-21-2023 Tobacco smoking status NHIS Occasional tobacco smoker [facility] Start: 10-22-2021 End: 05-21-2023 Cigarettes smoked current (pack per day) - Reported 0.25 [facility] Start: 10-22-2021 History SDOH Alcohol Comment pt states she is an alcholic [facility] Start: 12-31-2021 End: 10-15-2023 Tobacco smoking status MTIS Unknown if ever smoked [facility] Start: 12-28-2020 Heavy [facility] Start: 07-07-2018 None [facility] Start: 12-28-2020 Homeless [facility] Start: 12-28-2020 Cigarettes [facility] Start: 1970 Sex Assigned At Female [facility] Start: 11-22-1997 End: 11-22-2017 History of tobacco use Cigarette Smoker [facility] Start: 09-05-2020 End: 09-27-2021 Alcohol intake Ex-drinker (finding) [facility] Start: 04-06-2015 End: 12-19-2022 Tobacco Comment 09/04 to 09/02 ppd [facility] Start: 06-24-2019 Alcohol Comment quit december 08, 2018 [facility] Start: 02-13-2022 End: 05-21-2023 Tobacco use panel [facility] Start: 08-07-2021 Gender identity Identifies as female gender (finding) [facility] Start: 11-01-2021 Sexual orientation Heterosexual (finding) [facility] PHQ2 Score 0 [facility] Start: 08-07-2021 Sexual orientation Choose not to disclose [facility] Start: 12-09-2023 End: 09-27-2024 Tobacco smoking status NHIS Ex-smoker [facility] Start: 11-22-1997 End: 11-22-2017 History of tobacco use Current smoker [facility] Start: 12-09-2023 Alcohol Comment OCC quit december 08, 2018 [facility] Start: 11-29-2024 End: 12-09-2024 Sex Female (finding) [facility] Goals Date Patient Goal Desired Activity /State Functional Status Date Assessment Result Facility 09-29-2024 Functional status Ambulates [facility] Work Phone: 06-26-2023 Functional status Activity Ability Indepe ndent [facility] Work Phone: 06-25-2023 Functional status Ambulates [facility] Work Phone: 09-16-2022 Functional [facility] 09-16-2022 Functional status Patient Activity Ambula rush [facility] Work Phone: 09-15-2022 Functional status None [facility] Work Phone: 05-23-2022 Functional status Ambulates [facility] Work Phone: 05-20-2022 Functional status Ambulates [facility] Work Phone: 01-24-2022 Functional status Activity Ability Indepe [facility] Work Phone: 01-24-2022 Functional status Up ad ciro [facility] Work Phone: 01-21-2022 Functional status Ambulates;Up ad ciro [facility] Work Phone: Mental Status Date Assessment Result Facility 09-29-2024 Cognitive function Voice/Name [facility] Work Phone: 06-26-2023 Cognitive function Voice/Name [facility] Work Phone: 10-10-2022 Cognitive function Voice/Name [facility] Work Phone: 09-16-2022 Cognitive function Voice/Name [facility] Work Phone: 05-22-2022 Cognitive function Voice/Name [facility] Work Phone: 05-21-2022 Cognitive function Level Of Cons ciousness Awake;Alert;Appropriate;Follow s Commands [facility] Work Phone: 05-20-2022 Cognitive function Voice/Name [facility] Work Phone: 05-16-2022 Cognitive function Awake;Alert;Appropriat e [facility] Work Phone: 01-24-2022 Cognitive function Voice/Name;Touch/Romel mcrae [facility] Work Phone: 01-20-2022 Cognitive function Voice/Name;Touch/Romel mcrae [facility] Work Phone: 01-02-2022 Cognitive function Voice/Name [facility] Work Phone: 10-10-2021 Cognitive function Level Of Cons ciousness Awake;Alert;Appropriate;Follow s Commands [facility] Work Phone: Clinical Notes 08-23-2015 to 06-07-2025 Telephone Encounter - Viola Arshad LPN - 06/07/2025 7:40 AM EDTTelephone Encounter - Viola Arshad LPN - 06/07/2025 7:40 AM EDT Note Date & Type Note Facility 06-07-2025 Telephone encounter Note Form atting of this note might be different from the original. Rheumatology Refill Request Date of last visit: Follow-up scheduled? [x]Yes []No For hydroxychloroquine only: Eye exam within the last 12 months? [x]Yes []No []N/A *If yes, please update blue sticky with date* NOTE: [facility] 06-07-2025 Miscellaneous Notes Formattin g of this note might be different from the original. Rheumatology Refill Request Date of last visit: Follow-up scheduled? [x]Yes []No For hydroxychloroquine only: Eye exam within the last 12 months? [x]Yes []No []N/A *If yes, please update blue sticky with date* NOTE: documented in this encounter [facility] 05-20-[address] [facility] 05-20-2025 Progress note Note Date/Time May 20, 2025 4:18pm [facility] [address] [place], [place] [address] OFFICE VISIT Date of Service: 05/20/25 MR#: [id number] Acct: [id number] Name: DEE SHEPHERD Rep #: [id number] : 1970 Provider: SAEID [place] Age/Sex: 54/F Location[place] [facility] Status: Signed HPI HPI History of Present Illness Details: DEE SHEPHERD, is a 53 F that presents here today for a cardiovascular follow-up. She has a history of paroxysmal atrial fibrillation, severe pulmonary hypertension, hypertension, previous pulmonary embolism in 2016, tobacco abuse, anemia and obesity. She did have her large hiatal hernia repair done in December of 2020. She presented to [facility] on 05/16/2022 for palpitations, chest heaviness. She was noted to be in atrial fibrillation with RVR. During that hospitalization it was noted that she had resumed EtOH use andhad not been compliant with her medications. The initial plan was to proceed with a MABEL cardioversion however patient left AMA prior to proceeding with this. She then presented back to the hospital on May 21, 2022 for near syncope.A MABEL was performed on 05/23/2022 and showed an EF of 40% with mild to moderate global hypokinesis of the left ventricle and moderate global right ventricular systolic dysfunction and dilation.? She had a patent foramen ovale and the left atrium is moderately enlarged.? She was also noted to have a small pericardial effusion at that time.? No clots were noted and therefore she was taken for cardioversion with successful synchronized cardioversion into normal sinus rhythm.? She was discharged home on amiodarone 200 mg twice a day, Eliquis 5 mg twice a day, metoprolol 100 mg twice a day. Her losartan and hydrochlorothiazide were held due to her renal insufficiency. She was switched back to her flecainide. Her metoprolol has been decreased. Repeat echocardiogramin 2022 demonstrated and improved EF of 55-60%. She was in the hospital in 06/2023 for Acute CHF. Patient was hospitalized on September 27, 2023 for acute congestive heart failure with preserved ejection fraction. Echocardiogram demonstrated an ejection fraction of 55% with mildly enlarged left atrium, diastolic dysfunction was unable to be assessed. Patient was started on diuretic therapy. Swelling is better now with support stockings. She does not alway take her lasix. She does not have any palpitations. She does not have any chest pain or working SOB. She does not have any lightheadedness/dizziness. She is working FT. 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: No Is patient in pain?: No Allergies doxycycline Allergy (Verified 02/08/25 07:50) Hives hydrocodone (From Vicodin) Adverse Reaction (Verified 02/08/25 07:50) Itching Medications ?Medication ?Instructions ?Recorded ?Confirmed ?Type rosuvastatin 5 mg tablet (Crestor) 10 mg PO DAILY chol esterol 06/18/19 05/20/25 History acetaminophen 500 mg tablet 1,000 mg PO DAILY PRN Pain 1-10 Or 08/01/20 05/20/25 History Fever cholecalciferol (vitamin D3) 10 4,000 unit PO DAILY tam pplement 08/01/20 05/20/25 History mcg (400 unit) capsule folic acid 1 mg tablet 1 mg PO DAILY supplement 09/2005/20/25 History sildenafil (pulm.hypertension) 20 40 mg PO TID pulmona ry HTN 05/01/21 05/20/25 History mg tablet fluticasone fur. 100 mcg-umeclid 1 inh inhalation MILA Y COPD 01/20/22 05/20/25 History 62.5 mcg-vilant 25 mcg inhalat.powder (Trelegy Ellipta) bupropion HCl 300 mg 24 hr tablet, 300 mg PO DAILY moo d 05/16/22 05/20/25 History extended release hydroxychloroquine 200 mg tablet 400 mg (2 x 200 mg) P O DAILY 06/13/23 05/20/25 Rx (Plaquenil) arthritis #1 TAB albuterol sulfate 90 mcg/actuation 2 inh inhalation Q4 H PRN shortness 06/24/23 05/20/25 History breath activated powder inhaler of breath naltrexone 50 mg tablet 50 mg PO DAILY 08/29/2305/02 History trazodone 100 mg tablet 100 mg PO QHS PRN Insomnia 0 09/27/24 05/20/25 History furosemide 40 mg tablet 40 mg PO DAILY 1 month #30 t abs 09/29/24 05/20/25 Rx magnesium chloride 64 mg 128 mg (2 x 64 mg) PO BID 1 month 09/29/24 05/20/25 Rx (magnesium chloride) #120 tabs tablet,delayed release pantoprazole 40 mg tablet,delayed 40 mg PO QAM acid re flux 1 month 12/01/24 05/20/25 Rx release #30 tabs apixaban 5 mg tablet (Eliquis) 5 mg PO BID #180 tabs 0 12/02/24 05/20/25 Rx flecainide 50 mg tablet 50 mg PO Q12H #180 tabs /05/20/25 Rx metoprolol tartrate 25 mg tablet 25 mg PO Q12H high bl ood pressure 04/20/25 05/20/25 Rx #90 tabs spironolactone 25 mg tablet 12.5 mg (1/2 x 25 mg) PO D AILY 1 04/21/25 05/20/25 Rx month #30 tabs Ejection fraction %: 65 Have you fallen in the past year?: Yes PFSH Medical History Acute exacerbation of CHF (congestive heart failure) Left shoulder pain HTN (hypertension), benign PFO (patent foramen ovale) PAF (paroxysmal atrial fibrillation) Chronic kidney disease (CKD) Secondary pulmonary arterial hypertension HFrEF (heart failure with reduced ejection fraction) Non-ischemic cardiomyopathy Atrial flutter Panic attack Heart failure with preserved ejection fraction Atrial fibrillation Esophageal spasm Osteoarthritis Tubular adenoma of colon Extremity cyanosis Fatty liver Former smoker CPAP (continuous positive airway pressure) dependence History of pain when walking History of edema Patellofemoral syndrome of both knees Bilateral knee pain Paroxysmal atrial fibrillation Hyperthyroidism Former smoker Migraines HLD (hyperlipidemia) Hiatal hernia COPD (chronic obstructive pulmonary disease) Anxiety History of back problems Obstructive sleep apnea Essential (primary) hypertension Hypomagnesemia Iron deficiency Morbid obesity with BMI of 40.0-44.9, adult DVT (deep venous thrombosis) Anemia Pulmonary embolism (04/26/16) Tobacco user GERD (gastroesophageal reflux disease) Depression Allergic rhinitis Alcohol abuse Surgical History History of transesophageal echocardiography (MABEL) (05/23/22) History of cardioversion (05/23/22) History of cardiac catheterization History of repair of hiatal hernia (12/2020) History of cholecystectomy History of nasal surgery History of hysterectomy H/O repair of rotator cuff History of Family History Mother Breast cancer Cancer lung cancer Father Cancer lung cancer Hypertension High cholesterol Social History household members: spouse Smoking Status: Former smoker quit date: 06/01/23 alcohol intake: current alcohol intake frequency: 3 or more drinks per day Alcohol type: hard liquor details: Started drinking again recently, has been intermittent. Hard liquor drinks. substance use type: does not use ROS Const Const: Positive for headache(s); Negative for fatigue, weakness or frequent falls Eyes Eyes: Negative for blurry vision ENT ENT: Positive for headache(s); Negative for dizziness or Nosebleed/epistaxis Cardio Chest Pain: No Palpitations: No Edema: Right and None Muscle aches with walking: None Resp Respiratory: Negative for SOB with activity, SOB at rest or SOB orthopnea\SOB lying down GI GI: Negative nausea, vomiting, heartburn, bright, red blood in stools or black,tarry stools : Negative for hematuria Neuro Neuro: Positive for headache(s); Negative for dizziness, lightheadedness, near syncope, syncope, frequent falls, weakness or blurry vision Endo Endo: Negative for fatigue Cardiology Exam Const Appearance: cooperative, comfortable, no acute distress and well developed Nutritional Appearance: obese Orientation: alert, awake and oriented x3 Head Head: normal to inspection Ears: hearing grossly normal bilaterally Nose: external nose normal Face and Sinus: face symmetric Mouth: oral mucosae normal, lip normal and moist mucous membranes Eyes General: appearance normal, both eyes and all related structures Eyelids: eyelids normal Conjunctivae: conjunctivae normal Pupils: PERRL EOM: EOM intact bilaterally Neck Neck: normal visual inspection and trachea midline; Negative no JVD Carotids: Negative bruit Chest Chest inspection: normal inspection of the chest Auscultation: Bilateral: Diminished Lung Sounds Cardio Palpation: normal PMI Rate: regular rate Rhythm: regular rhythm Heart sounds: S1 normal and S2 normal; Negative rub, gallop or murmur GI GI: soft, no hepatosplenomegaly, bowel sounds present and obese Neuro General: patient alert, patient awake, patient oriented x3 and CN's II-XI intactbilaterally Extremities Pulses: Normal: Right Posterior Tibial Pulse, Left Posterior Tibial Pulse, RightRadial Pulse and Left Radial Pulse Lower Extremity Edema: Trace: Bilateral Psych Psychological: normal affect Supplemental Info Supplemental Information Right heart catheterization from 08/07/2018: CONCLUSIONS The patient has pulmonary hypertension which is moderate. Normal pulmonary capillary wedge pressure of 6 RECOMMENDATIONS Refer to supervisor dog license officer CORONARY ANGIOGRAPHY RIGHT HEART ASSESSMENT Thermal CO: 6.07 Thermal CI: 2.72 PW: 6/5 2 PA: 51/20 31 RV: 48/-7 0 RA: 3/2 0 PVR: 382 Right Heart pressures - elevated Echocardiogram from 12/28/2020: Interpretation Summary Pulmonary artery systolic pressure is RVSP 77 mmhg mmHg. Severe pulmonary Hypertension The estimated ejection fraction is EF 60-65% %. Moderate TR Small pericardial Effusion Echocardiogram 03/2022: Normal LV size. Moderate concentric left ventricular hypertrophy. Left ventricular systolic function is normal. Mild-Moderate (1-2+) eccentric mitral valve insufficiency. Pulmonary artery systolic pressure is 80 mmHg. Severe pulmonary hypertension. Echocardiogram 10/2022: The estimated ejection fraction is 55-60 %. Trivial pericardial effusion. Echocardiogram 12/2023: The estimated ejection fraction is 55 %. Unable to assess diastolic dysfunction. The left atrium is mildly enlarged. ? ECHO/Echo Complete W/ Contrast 09/2024 Interpretation Summary The estimated ejection fraction is 65 %. Diastolic function is indeterminate. The left atrium is mildly enlarged. MABEL 05/2022: Normal LV size. The estimated ejection fraction is 40 %. There is mild to moderate global hypokinesis of the left ventricle. Moderate global right ventricular systolic dysfunction. Moderately dilated right ventricle. The left atrium is moderately enlarged. Patent foramen ovale. Small pericardial effusion. Stress test on 12/29/2020: Conclusion: Negative Lexiscan sestamibi myocardial perfusion study for reversible myocardialischemia Normal LV systolic function Attenuation artifact, in the anterior secondary to breast attenuation as well asin the inferior region due to large hiatus hernia. Labs: LDL Cholesterol, (0-130) 58 mg/dL HDL Cholesterol, (40-) 126 mg/dL Cholesterol, (200) 209 mg/dL H Triglycerides, (-199) 126 mg/dL Diagnostics: Electrocardiogram Echocardiogram Transesophageal Echocardiogram Stress Test Stress Test Nuclear Medicine Cardiac Catheterization Chest X-Ray Chest CTA Abdomen Ultrasound Abdomen/Pelvis CT Extremity Arterial Study Past Visits: Cardiology Visit Today Assessment and Plan Assessment and Plan (1) Lymphedema: Status: Acute Plan: Edema is better today, she is wearing support stockings. If need be can re-refer back to vascular for help with this. (2) Venous insufficiency (chronic) (peripheral): Status: Chronic (3) PAF (paroxysmal atrial fibrillation): Status: Acute Plan: Patient has not had any recurrence of her atrial fibrillation that she is aware of. She will continue with her flecainide, metoprolol and eliquis. She is on the lower dose of flecainide d/t her plaquenil. (4) Non-ischemic cardiomyopathy: Status: Acute Plan: Patient does not have any symptoms of congestive heart failure. Most recent echocardiogram demonstrated an ejection fraction of 55%. She will continue withcurrent medical management. Will continue to monitor closely. (5) Chronic kidney disease (CKD): Status: Chronic Plan: We will continue to monitor with routine labs. This is being monitored by all her physicians. (6) HLD (hyperlipidemia): Status: Chronic Plan: Pt will continue with low dose statin (7) Secondary pulmonary arterial hypertension: Status: Chronic Plan: Patient does have severe pulmonary hypertension. She is stating that she is using her sildenafil as directed in addition to her CPAP. Encouraged her to follow with Dr. Lugo for this. She was encouraged to continue to use her diuretics as prescribed. (8) HTN (hypertension), benign: Status: Acute Plan: Controlled on her current medications. Will not make any adjustments. Orders: Orders 12 Lead EKG performed by [facility] Today I48.91 - Unspecified atrial fibrillation Plan Encouraged continued smoking cessation in addition to EtoH cessation. 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 TECH- its been a while since she seen him) Coding Level of Care Code Off vis,est,level 4 Diagnoses Lymphedema I89.0 Venous insufficiency (chronic) (peripheral) I87.2 PAF (paroxysmal atrial fibrillation) I48.0 Non-ischemic cardiomyopathy I42.8 Chronic kidney disease (CKD) N18.9 HLD (hyperlipidemia) E78.5 Secondary pulmonary arterial hypertension I27.21 HTN (hypertension), benign I10 Coding Level of Care Code Off vis,est,level 4 Diagnoses Lymphedema I89.0 Venous insufficiency (chronic) (peripheral) I87.2 PAF (paroxysmal atrial fibrillation) I48.0 Non-ischemic cardiomyopathy I42.8 Chronic kidney disease (CKD) N18.9 HLD (hyperlipidemia) E78.5 Secondary pulmonary arterial hypertension I27.21 HTN (hypertension), benign I10 Clinical Quality Measures Falls Risk Screening/Assistive Devices Have you fallen in the past year?: Yes Cardiac Ejection fraction %: 65 05/20/25 1631 <Electronically signed by Jasmyne Ramires> Date _ Jasmyne BREAUX Cosigner Signature: Date (if applicable) CC: ~ [facility] Work Phone: 1(112) 651-691106-10-2025 Evaluation note* Diagnosis Onset Date Resolution Status Admit Date Alcoholic fatty liver chronic Jan 7:47am Metabolic dysfunction-associated steatotic liver disease (MASLD) chronic February 08, 2025 7:47am HTN (hypertension), benign acute May 20, 2025 3:47pm Lymphedema acute May 3:47pm Non-ischemic cardiomyopathy acute May 20, 2025 3:47pm PAF (paroxysmal atrial fibrillation) acute May 20, 2025 3:47pm Chronic kidney disease (CKD) chronic May 20, 2025 3:47pm HLD (hyperlipidemia) chronic May 3:47pm Secondary pulmonary arterial hypertension chronic May 20, 2025 3:47pm Venous insufficiency (chroni c) (peripheral) chronic May 20, 2025 3:47pm [employer] [facility] Work Phone: 1(124) 118-879105-08-2025 NoteRHEUMATOLOGY FOLLOW-UP VISIT Patient Name: Dee Shepherd : 1970 Medical Record: [id number] PCP: Sarai Watkins MD CHIEF COMPLAINT Positive dsDNA and antiphospholipid antibodies ASSESSMENT AND PLAN Dee Shepherd is a 54 y.o. female who is being seen for evaluation of positive dsDNA and antiphospholipid antibodies. Antiphospholipid antibodies While patient has persistent antiphospholipid antibodies on multiple occasion, difficult to tell if she has had a clinically relevant thrombotic event. No prior history of miscarriages. She did have a DVT, though this may have been a possible provoked DVT (2016), and patient was just on short-term anticoagulation at that time. She did have an evaluation with hematology who noted that she is already on anticoagulation from an A-fib perspective, so they did not have anything further to add at that point. Will refer patient to hematology for further assistance with this diagnosis. Patient is currently on Eliquis, but in discussion with her, this is for A-fib. She wishes to follow with her 's business programmer, and she will let us know the details of this. Positive dsDNA INGE negative previously. Lupus thought to be less likely by Dr. Moncada previously given lack of characteristic symptoms. She was started on hydroxychloroquine given her antiphospholipid antibodies and double-stranded DNA antibody. Patient has not been seen in follow-up over the last year, so she has been out of the hydroxychloroquine for approximately 6 months. She notes worsening arthralgias since being out of this medication and wishes to restart it. I did discuss with her that it is still clinically unclear in regards to whether she truly or not has underlying SLE given negative INGE, but she does have positive dsDNA and there has been some evidence that hydroxychloroquine can be of benefit in reducing APS antibodies. Will send for a 90-day supply of hydroxychloroquine 400 mg daily. I had advised patient that she needs to get an updated eye exam for further fills. She expressed understanding. Will update lupus labs today. Pulmonary hypertension Right heart catheterization in August 2018 with pulmonary hypertension which was moderate. Echocardiogram from November 2020 with RVSP 77 mmHg. Patient has followed with Dr. Lugo with pulmonology in [place] regarding this. High risk medication use Patient advised on need for yearly hydroxychloroquine eye exam. Return to clinic in 6 months. Sooner if needed. Please do not hesitate to contact me with any questions or concerns. Denise Kline DO [facility] Rheumatology [address] [place] [address] O: [phone] F: [phone] The above recommendations were discussed with the patient who understands and agrees with the plan. Portions of this note were copied forward from the patient's last clinic visit.? I have reviewed and updated the history, physical exam, data, assessment and plan of the note so that it reflects the evaluation and management of the patient on 01/06/2025. Portions of this note were created with [employer]. Every effort was made to proofread, but sound-alike errors may occasionally occur. Please contact me for any clarification of note contents. I am managing Dee Shepherd for complex chronic condition(s) serving as the focal point for the patient's care for consistency and continuity over time. HPI/ROS Dee Shepherd is a 54 y.o. female who is being seen in follow-up for positive antiphospholipid antibodies and positive dsDNA. Interval history I reviewed the nursing intake form. Any corrections needed have been updated in the HPI. Here for follow-up today. She has not been seen since October 2023. She has been out of the hydroxychloroquine for about 6 months. Notes that she has had worsening arthralgias since being off of the hydroxychloroquine and would like to restart it. We did discuss that she saw hematology previously, though she cannot recall this. She does remain on the Eliquis. Prior and initial history Originally referred to Dr. Moncada in October 2021 for evaluation of positive double-stranded DNA. Per review of her note, double-stranded DNA elevated at 32 - I also reviewed on original referral documents. Cardiology initially did not want patient to take hydroxychloroquine. Per review of Dr. Moncada's notes, cardiac medications were adjusted to facilitate hydroxychloroquine. Patient also has a history of pulmonary hypertension thought to be secondary to lung disease, FADY, and obesity. There is question on whether antiphospholipid antibodies could be contributing. Serologies/pertinent imaging and pathology December 2015 (lower extremity ultrasound) LEFT SIDE - DEEP VEINS Acute deep vein thrombosis in the distal femoral vein, popliteal vein, posterior tibial veins, peroneal veins and gastrocnemius veins. Labs from October 2021: Negative INGE. Neg (more content not included)...[facility]05-08-2025 History of Present illness Narrative* Denise Kline, DO - 01/06/2025 3:25 PM EDT Images from the original note were not included. RHEUMATOLOGY FOLLOW-UP VISIT Patient Name: Dee Shepherd : 1970 Medical Record: [id number] PCP: Sarai Watkins MD CHIEF COMPLAINT Positive dsDNA and antiphospholipid antibodies ASSESSMENT AND PLAN Dee Shepherd is a 54 y.o. female who is being seen for evaluation of positive dsDNA and antiphospholipid antibodies. Antiphospholipid antibodies While patient has persistent antiphospholipid antibodies on multiple occasion, difficult to tell ifshe has had a clinically relevant thrombotic event. No prior history of miscarriages. She did have a DVT, though this may have been a possible provoked DVT (2015), and patient was just on short-term anticoagulation at that time. She did have an evaluation with hematology who noted that she is already on anticoagulation from Inge-fib perspective, so they did not have anything further to add at that point. Will refer patient to hematology for further assistance with this diagnosis. Patient is currently on Eliquis, but in discussion with her, this is for A-fib. She wishes to follow with her 's business programmer, and she will let us know the details of this. Positive dsDNA INGE negative previously. Lupus thought to be less likely by Dr. Moncada previously given lack of characteristic symptoms. She was started on hydroxychloroquine given her antiphospholipid antibodies and double-stranded DNA antibody. Patient has not been seen in follow-up over the last year, so she has been out of the hydroxychloroquine for approximately 6 months. She notes worsening arthralgias since being out of this medicationand wishes to restart it. I did discuss with her that it is still clinically unclear in regards to whether she truly or not has underlying SLE given negative INGE, but she does have positive dsDNA andthere has been some evidence that hydroxychloroquine can be of benefit in reducing APS antibodies. Will send for a 90-day supply of hydroxychloroquine 400 mg daily. I had advised patient that she needs to get an updated eye exam for further fills. She expressed understanding. Will update lupus labs today. Pulmonary hypertension Right heart catheterization in August 2018 with pulmonary hypertension which was moderate. Echocardiogram from November 2020 with RVSP 77 mmHg. Patient has followed with Dr. Sibilia with pulmonology in [place] regarding this. High risk medication use Patient advised on need for yearly hydroxychloroquine eye exam. Return to clinic in 6 months. Sooner if needed. Please do not hesitate to contact me with any questions or concerns. Denise Kline DO [facility] Rheumatology [address] [place] [address] O: [phone] F: [phone] The above recommendations were discussed with the patient who understands and agrees with the plan. Portions of this note were copied forward from the patient's last clinic visit.? I have reviewed and updated the history, physical exam, data, assessment and plan of the note so that it reflects the evaluation and management of the patient on 01/06/2025. Portions of this note were created with [employer]. Every effort was made to proofread, but sound-alike errors may occasionally occur. Please contact me for any clarification of note contents. I am managing Dee Shepherd for complex chronic condition(s) serving as the focal point for the patient's care for consistency and continuity over time. HPI/ROS Dee Shepherd is a 54 y.o. female who is being seen in follow-up for positive antiphospholipid antibodies and positive dsDNA. Interval history I reviewed the nursing intake form. Any corrections needed have been updated in the HPI. Here for follow-up today. She has not been seen since October 2023. She has been out of the hydroxychloroquine for about 6 months. Notes that she has had worsening arthralgias since being off of the hydroxychloroquine and would like to restart it. We did discuss that she saw hematology previously, though she cannot recall this. She does remain on the Eliquis. Prior and initial history Originally referred to Dr. Moncada in October 2021 for evaluation of positive double-stranded DNA. Per review of her note, double-stranded DNA elevated at 32 - I also reviewed on original referral documents. Cardiology initially did not want patient to take hydroxychloroquine. Per review of Dr. Moncada's notes, cardiac medications were adjusted to facilitate hydroxychloroquine. Patient also has a history of pulmonary hypertension thought to be secondary to lung disease, FADY, and obesity. There is question on whether antiphospholipid antibodies could be contributing. Serologies/pertinent imaging and pathology December 2015 (lower extremity ultrasound) LEFT SIDE - DEEP VEINS Acute deep vein thrombosis in the distal femoral vein, popliteal vein, posterior tibial veins, peroneal veins and gastrocnemius veins. Labs from October 2021: Negative INGE. Negative c-ANCA/p-ANCA. Normal complements. Beta 2 glycoprotein IgG elevated to 57.8. Cardiolipin IgG elevated to 16.0. Labs from March 2022 with cardiolipin IgG elevated 275.7. Cardiolipin IgM normal. Beta-2 glycoprotein IgG elevated to 58.7. RNA polymerase 3 and centromere antibodies negative. Labs from May 2023 with cardiolipin IgG 94.3 and beta-2 glycoprotein IgG 437.9. Myomarker 3 negative. PHYSICAL EXAM Vitals: 01/06/25 1509 BP: (!) 145/79 BP Location: Left arm Patient Position: Sitting Pulse: 91 Weight: 122.5 kg (270 lb) Constitutional: ?No acute distress. Normal appearance. Not?ill-appearing. HENT: Head normocephalic?and atraumatic. Eyes: No discharge.??? Pulmonary: Pulmonary effort is normal. No?respiratory distress. Skin: Warm?and dry. No obvious rash over exposed surfaces Neurological: Alert. Psychiatric: ???Mood, affect, thought content normal. Musculoskeletal: No obvious synovitis detected on exam today. PAST MEDICAL HISTORY Past Medical History: Diagnosis Date Anemia Asthma Clotting disorder COPD (chronic obstructive pulmonary disease) (HCC) Hypertension pulmonary Lupus (HCC) * Viola Arshad LPN - 01/06/2025 3:11 PM EDT RHEUMATOLOGY FOLLOW-UP VISIT INTAKE: Have you had any new illnesses, infections, or hospitalizations? ? [x]Yes []No If yes, please specify: edema sep 27 to Are you having any side effects from your rheumatology medications? ? []Yes ? [x]No ? []N/A If yes, please specify: Are you having morning stiffness? ? [x]Yes []No How many minutes does it last? just a few Are you having any joint swelling? ? []Yes [x]No If yes, what joints? Global Assessment: Considering all of the ways that your disease affects you, how are you doing (0 = best ; 10 = worst)? 4.0 No show/cancellation policy provided to patient: []Yes []Patient declined [x]Patient previously received and declined additional copy documented in this [id number] Evaluation note* Diagnosis Onset Date Resolution Status Admit Date HTN (hypertension), benign acute November 05, 2024 3:38pm Lymphedema acute November 05 3:38pm Non-ischemic cardiomyopathy acute November 05, 2024 3:38pm PAF (paroxysmal atrial fibrillation) acute November 05, 2024 3:38pm Chronic kidney disease (CKD) chronic November 05, 2024 3:38pm HLD (hyperlipidemia) chronic 2024 3:38pm Secondary pulmonary arterial hypertension chronic November 05, 2024 3:38pm Venous insufficiency (chroni c) (peripheral) chronic November 05, 2024 3:38pm Alcoholic fatty liver chronic Jan 7:47am Metabolic dysfunction-associ ated steatotic liver disease (MASLD) chronic February 08, 2025 7:47am [facility] Work Phone: 1(554) 360-554801-29-2025 [facility] Medical Records Department [address] [place] [address] Discharge Summary 09/29/24 1520 MR#: [id number] Acct: [id number] Name: DEE SHEPHERD Rep #: [id number] : 1970 53 From: Ike Gibbs MD PCP: Dr. Sarai Watkins MD Status:ADM IN Location: [place] [id number] Providers Date of Admission: 09/27/24 Date of Discharge: 09/29/24 Primary Care Physician: Dr. Sarai Watkins MD Reason For Visit: ACUTE CONGESTIVE HEART FAILURE Diagnosis Discharge Diagnosis (1) Acute exacerbation of CHF (congestive heart failure): Status: Chronic Code(s): I50.9 - Heart failure, unspecified (2) Metabolic dysfunction-associated steatotic liver disease (MASLD): Status: Chronic Code(s): K76.0 - Fatty (change of) liver, not elsewhere classified (3) PAF (paroxysmal atrial fibrillation): Status: Acute Code(s): I48.0 - Paroxysmal atrial fibrillation (4) Secondary pulmonary arterial hypertension: Status: Chronic Code(s): I27.21 - Secondary pulmonary arterial hypertension (5) Alcoholic fatty liver: Status: Chronic Code(s): K70.0 - Alcoholic fatty liver Plan Patient is a 53-year-old lady presenting with progressive shortness of breath and weight gain 1. Acute congestive heart failure with preserved ejection fraction 2D echo from 12/11/2023 demonstrated estimated EF of 55%. Patient has been admitted to monitored bed started on strict input and output, daily weight, fluid restriction as well as IV diuretics. Repeat echo ordered for subsequent assessment ??? 09/28/2024; patient 2D echo demonstrated EF of 55% with mildly enlarged left atrium. Diastolic dysfunction was not able to be assessed. Patient responded to diuretic therapy with a negative fluid balance of 6.6 L over the past 24 hours. 09/29: Since patient was rapidly vigorously diuresed. Her creatinine went up from 1.23???1.6 1 in the morning. Diuretics furosemide were held. Patient wanted to go home therefore repeat BMP was done in afternoon and is still shows 1.79. Advised to hold furosemide and spironolactone for 3 days, repeat BMP and magnesium and then call PCP to resume or titrate the dose of diuretics. Follow-up in cardiology office Jasmyne Sparks. 2. Paroxysmal A. fib/flutter ??? Patient is on flecainide and metoprolol as well as systemic anticoagulation with warfarin with subtherapeutic INR. Did continue with patient home meds daily INR ordered for monitoring 3. Pulmonary hypertension ??? Patient is on sildenafil, did continue 4. Chronic alcohol dependence ??? Counseled on cessation. Patient reported being at risk for possible withdrawal was subsequently placed on a CIWA protocol with phenobarb taper 09/29: Patient has naltrexone at home. Advised to continue weight. Alcohol cessation advised and reinforced. 5. COPD ??? Currently not in exacerbation did continue patient home regimen including Trelegy Ellipta 6. Class III obesity with BMI of 46.3 ??? Weight loss advised 7. Dyslipidemia -Patient is on statin therapy, continued at home dose 8. Anemia ??? Secondary to chronic disorder monitoring H H and transfuse if patient becomes symptomatic or hemoglobin falls below 7 9. GERD with history of reflux esophagitis ??? On PPI 10. Hypothyroidism - Patient is on levothyroxine home dose continued 11. Metabolic dysfunction with associated steatotic liver disease ??? Patient is followed by hepatology as outpatient patient. On ursodiol. Advised to follow-up in GI/hepatology clinic 12. Depression with anxiety ??? Patient is appropriate. 13. Rheumatoid arthritis ??? Patient is on hydroxychloroquine 14. DVT prophylaxis ??? Patient is on warfarin 15. Hypokalemia -Corrected per protocol, Hypokalemia corrected. Potassium supplement was discontinued and spironolactone dose increased 16. Hypomagnesemia Magnesium was low 1.4 and then 1.4. Getting replaced. Prescription for magnesium sulfate given. Patient is also alcoholic. Discharge medication reconciliation done. Discharge follow-up instructions completed. Discharge process discussed with the patient and all questions were answered to patient's satisfaction. Follow with PCP in 1 to 2 weeks Total time spent, exact 35 minutes on discharge meds reconciliation, examination, coordination of care with nurses and ancillary staff, review of imaging and blood test and discussion with the patient on follow-up instructions. Medications at Discharge Home Medications rosuvastatin 5 mg tablet (Crestor) 10 mg PO DAILY cholesterol 06/18/19 acetaminophen 500 mg tablet 1,000 mg PO DAILY PRN Pain 1-10 Or Fever 08/01/20 cholecalciferol (vitamin D3) 10 mcg (400 unit) capsule 4,000 unit PO DAILY supplement 08/01/20 folic acid 1 mg tablet 1 mg PO DAILY supplement 08/01/20 sildenafil (pulm.hypertension) 20 mg tablet 40 mg PO TID pulmonary HTN 05/01/21 fluticasone fu (more content not included)...[facility] 09-27-2024 Evaluation note* Diagnosis Onset Date Resolution Status Admit Date Diarrhea acute September 27, 2024 7:50am Alcoholic fatty liver chronic [facility] 2024 7:50am Metabolic dysfunction-associated steatotic liver disease (MASLD) chronic September 27, 2024 7:50am HTN (hypertension), benign acute September 27, 2024 10:41am 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 acute September 27 10:41am Non-ischemic cardiomyopathy acute September 27, 2024 10:41am PAF (paroxysmal atrial fibrillation) acute September 27 10:41am Alcoholic fatty liver chronic Huber gimenez 2024 10:41am Fatty liver chronic September 27, 2024 10:41am HLD (hyperlipidemia) chronic Ezra aiken 2024 10:41am Metabolic dysfunction-associated steatotic liver disease (MASLD) chronic September 27, 2024 10:41am Right-sided heart failure chronic September 27, 2024 10:41am Secondary pulmonary arterial hypertension chronic September 27 10:41am Acute exacerbation of CHF (congestive heart failure) inactive Eduin ry 2024 10:41am HTN (hypertension), benign acute November 05, 2024 3:38pm Lymphedema acute November 05 3:38pm Non-ischemic cardiomyopathy acute November 05, 2024 3:38pm PAF (paroxysmal atrial fibrillation) acute November 05, 2024 3:38pm Chronic kidney disease (CKD) chronic November 05, 2024 3:38pm HLD (hyperlipidemia) chronic 2024 3:38pm Secondary pulmonary arterial hypertension chronic November 05, 2024 3:38pm Venous insufficiency (chroni c) (peripheral) chronic November 05, 2024 3:38pm [facility] Work Phone: 1(500) 208-423505-09-2024 Telephone encounter Note* Telephone Encounter - Juan Carlos Fraga LPN - 01/08/2024 9:40 AM EDT Pt called in this morning asking that her HCQ go to a new pharmacy as it is way cheaper for her - [facility], it is in her pharmacy listing. [id number] Miscellaneous Notes* Telephone Encounter - Juan Carlos Fraga LPN - 01/08/2024 9:40 AM EDT Pt called in this morning asking that her HCQ go to a new pharmacy as it is way cheaper for her - [facility], it is in her pharmacy listing. documented in this [id number] Telephone encounter Note* Telephone Encounter - Juan Carlos Fraga LPN - 01/06/2024 10:25 AM EDT Rheumatology Refill Request Follow-up scheduled? [x]Yes []No Labs at [facility]: Lab Results Component Value Date WBC 6.49 11/13/2023 HGB 13.3 11/13/2023 HCT 41.8 11/13/2023 MCV 97.7 11/13/2023 PLT 205 11/13/2023 RBC 4.28 11/13/2023 Lab Results Component Value Date CREATININE 1.26 (H) 11/13/2023 Lab Results Component Value Date ALT 19 03/11/2022 AST 22 10/22/2021 ALKPHOS 100 10/22/2021 BILITOT 0.6 10/22/2021 Location of labs outside of [facility]: []CareEverywhere []Scanned into Media []N/A For hydroxychloroquine only: Eye exam within the last 12 months? []Yes [x]No []N/A NOTE: Pt has appt with you in January, I have question out to her as to who her Eye doctor is for eye exam notes [id number] Miscellaneous Notes* Telephone Encounter - Juan Carlos Fraga LPN - 01/06/2024 10:25 AM EDT Rheumatology Refill Request Follow-up scheduled? [x]Yes []No Labs at [facility]: Lab Results Component Value Date WBC 6.49 11/13/2023 HGB 13.3 11/13/2023 HCT 41.8 11/13/2023 MCV 97.7 11/13/2023 PLT 205 11/13/2023 RBC 4.28 11/13/2023 Lab Results Component Value Date CREATININE 1.26 (H) 11/13/2023 Lab Results Component Value Date ALT 19 03/11/2022 AST 22 10/22/2021 ALKPHOS 100 10/22/2021 BILITOT 0.6 10/22/2021 Location of labs outside of [facility]: []CareEverywhere []Scanned into Media []N/A For hydroxychloroquine only: Eye exam within the last 12 months? []Yes [x]No []N/A NOTE: Pt has appt with you in January, I have question out to her as to who her Eye doctor is for eye exam notes documented in this [id number] NoteHNO ID: [id number] Author: RONAL MACDONALD MD Service: ? Author Type: Physician Type: Progress Notes Filed: 12/09/2023 12:33 Note Text: HISTORY OF PRESENT ILLNESS: Dee Shepherd is a 53 year old female remote history of DVT (possibly 10 years ago) on short course (3 months) of ac at that time, now here with newer dx APS, has been on eliquis for past 5 years, has been on for recurrent atrial fibrillation. Has pulmonary hypertension, dx on basis of heart catheterization. Done around time of atrial fibrillation was diagnosed. No history of miscarriage. Mention made in PMH re PE, but I see no scan results, pt unaware CLINICAL IMPRESSION: Pulmonary HTN IgG positive anticardiolipin antibodies RECOMMENDATION/PLAN: 1. She requires indefinite anticoagulation from a cardiac standpoint, this will cover us from a hypercoagulable standpoint. 2. No further work up needed 3. See back prn Written and verbal health teaching given to patient, patient verbalizes understanding and agrees with treatment plan. PAST MEDICAL HISTORY Diagnosis Date Atrial fibrillation (HCC) COPD (chronic obstructive pulmonary disease) (HCC) DDD (degenerative disc disease), lumbar Deep vein thrombosis (HCC) 04/2016 right leg Dysthymic disorder Depression (non-psychotic) Generalized anxiety disorder Anxiety, Generalized Heartburn Hypertension 11/12/2013 Iron deficiency anemia secondary to inadequate dietary iron intake 06/25/2019 Liver fibrosis Migraine with aura Obstructive sleep apnea Other and unspecified alcohol dependence, unspecified drinking behavior ETOH depend. syn. Pulmonary emboli (HCC) 04/2016 Pulmonary hypertension (HCC) Systemic lupus erythematosus (HCC) Tobacco use disorder PAST SURGICAL HISTORY Procedure Laterality Date DELIVERY ONLY , low cervical COLONOSCOPY FLX DX W/COLLJ SPEC WHEN PFRMD 07/07/2018 normal - 10 year follow up EGD TRANSORAL BIOPSY SINGLE/MULTIPLE 07/07/2018 gastritis ESOPHAGOGASTRODUODENOSCOPY TRANSORAL DIAGNOSTIC 08/23/2015 EGD PAST SURGICAL HISTORY OF dr yates 06/29/2010 left shoulder repair, tendon repair, calcium deposits removed PAST SURGICAL HISTORY OF 07/2011 nasal surgery PAST SURGICAL HISTORY OF Right 2011 right shoulder surgery PAST SURGICAL HISTORY OF 01/18/2021 lap roddy fundiplication REMOVAL GALLBLADDER 2020 VAGINAL HYSTERECTOMY UTERUS 250 GM/< 2004 Hysterectomy, vaginal cervix and uterus FAMILY HISTORY Problem Relation Age of Onset Cancer Mother metastatic cancer- unsure of origin Cancer Father lung Alcohol/Drug Father Cataract Paternal Grandfather Glaucoma Paternal Grandfather Alzheimer's Disease Paternal Grandfather Social History Tobacco Use Smoking status: Former Packs/day: 0.50 Years: 20.00 Additional pack years: 0.00 Total pack years: 10.00 Types: Cigarettes Smokeless tobacco: Never Tobacco comments: 09/04 to 09/02 ppd Vaping Use Vaping Use: Never used Substance Use Topics Alcohol use: Yes Comment: OCC quit december 08, 2018 Drug use: No ALLERGIES: ALLERGIES Allergen Reactions Doxycycline Rash Palmar rash/discolration/blood blisters - occurred on two separate occasions Environmental [Othe* Hydrocodone Itching Milk Mushrooms [Other] Pollen CURRENT OUTPATIENT MEDICATIONS: rosuvastatin (CRESTOR) 10 mg tabletTake 10 mg by mouth once daily.Disp: Rfl: metoprolol succinate ER (TOPROL XL) 50 mg 24 hr tabletTake 50 mg by mouth two times a day.Disp: Rfl: Cholecalciferol, Vitamin D3, (D3-5000) 125 mcg (5,000 unit) capTake 1 capsule by mouth two times a day.Disp: Rfl: acetaminophen (TYLENOL) 500 mg tabletTake by mouth as needed.Disp: Rfl: Vitamin E, dl, acetate, (VITAMIN E) 400 unit capsuleTake 1 capsule by mouth once daily.Disp: Rfl: ursodiol (ACTIGALL) 300 mg capsuleTake 300 mg by mouth two times a day.Disp: Rfl: traZODone (DESYREL) 100 mg tabletTake 100 mg by mouth daily at bedtime.Disp: Rfl: spironolactone (ALDACTONE) 25 mg tabletTake 0.5 tablets by mouth once daily.Disp: Rfl: pantoprazole DR (PROTONIX) 40 mg tabletTake 40 mg by mouth once daily.Disp: Rfl: ondansetron (ZOFRAN) 4 mg tabletTake 4 mg by mouth as needed.Disp: Rfl: buPROPion XL (WELLBUTRIN XL) 300 mg 24 hr tabletTake 300 mg by mouth once daily.Disp: Rfl: diphenhydrAMINE (BENADRYL) 25 mg capsuleTake 50 mg by mouth as needed.Disp: Rfl: JARDIANCE 10 mg tabletTake 10 mg by mouth once daily.Disp: Rfl: hydrOXYchloroQUINE (PLAQUENIL) 200 mg tabletTake 400 mg by mouth once daily.Disp: Rfl: sildenafil (REVATIO) 20 mg tabletTake 40 mg by mouth three times a day.Disp: Rfl: ELIQUIS 5 mg tab(s)Take 5 mg by mouth two times a day.Disp: Rfl: flecainide (TAMBOCOR) 100 mg tabletTake 50 mg by mouth two times a day.Disp: Rfl: TRELEGY ELLIPTA 100-62.5-25 mcg dsdv1 Puff once daily.Disp: Rfl: 3 PROAIR HFA 90 mcg/actuation inhaleras needed.Disp: Rfl: 2 folic acid 1 mg tabletT (more content not included)...[facility] 12-09-2023 History of Present illness Narrative* Ronal Macdonald MD - 12/09/2023 9:14 AM EDT HISTORY OF PRESENT ILLNESS: Dee Shepherd is a 53 year old female remote history of DVT ([id number] years ago) on short course (3 months) of ac at that time, now here with newer dx APS, has been on eliquis for past 5 years, has been on for recurrent atrial fibrillation. Has pulmonary hypertension, dx on basis of heart catheterization. Done around time of atrial fibrillation was diagnosed. No history of miscarriage. Mention made in PMH re PE, but I see no scan results, pt unaware CLINICAL IMPRESSION: Pulmonary HTN IgG positive anticardiolipin antibodies RECOMMENDATION/PLAN: 1. She requires indefinite anticoagulation from a cardiac standpoint, this will cover us from a hypercoagulable standpoint. 2. No further work up needed 3. See back prn Written and verbal health teaching given to patient, patient verbalizes understanding and agrees with treatment plan. PAST MEDICAL HISTORY Diagnosis Date Atrial fibrillation (HCC) COPD (chronic obstructive pulmonary disease) (HCC) DDD (degenerative disc disease), lumbar Deep vein thrombosis (HCC) 04/2016 right leg Dysthymic disorder Depression (non-psychotic) Generalized anxiety disorder Anxiety, Generalized Heartburn Hypertension 11/12/2013 Iron deficiency anemia secondary to inadequate dietary iron intake 06/25/2019 Liver fibrosis Migraine with aura Obstructive sleep apnea Other and unspecified alcohol dependence, unspecified drinking behavior ETOH depend. syn. Pulmonary emboli (HCC) 04/2016 Pulmonary hypertension (HCC) Systemic lupus erythematosus (HCC) Tobacco use disorder PAST SURGICAL HISTORY Procedure Laterality Date DELIVERY ONLY , low cervical COLONOSCOPY FLX DX W/COLLJ SPEC WHEN PFRMD 07/07/2018 normal - 10 year follow up EGD TRANSORAL BIOPSY SINGLE/MULTIPLE 07/07/2018 gastritis ESOPHAGOGASTRODUODENOSCOPY TRANSORAL DIAGNOSTIC 08/23/2015 EGD PAST SURGICAL HISTORY OF dr yates 06/29/2010 left shoulder repair, tendon repair, calcium deposits removed PAST SURGICAL HISTORY OF 07/2011 nasal surgery PAST SURGICAL HISTORY OF Right 2010 right shoulder surgery PAST SURGICAL HISTORY OF 01/18/2021 lap roddy fundiplication REMOVAL GALLBLADDER 2019 VAGINAL HYSTERECTOMY UTERUS 250 GM/< 2004 Hysterectomy, vaginal cervix and uterus FAMILY HISTORY Problem Relation Age of Onset Cancer Mother metastatic cancer- unsure of origin Cancer Father lung Alcohol/Drug Father Cataract Paternal Grandfather Glaucoma Paternal Grandfather Alzheimer's Disease Paternal Grandfather Social History Tobacco Use Smoking status: Former Packs/day: 0.50 Years: 20.00 Additional pack years: 0.00 Total pack years: 10.00 Types: Cigarettes Smokeless tobacco: Never Tobacco comments: 09/04 to 09/02 ppd Vaping Use Vaping Use: Never used Substance Use Topics Alcohol use: Yes Comment: OCC quit december 08, 2018 Drug use: No ALLERGIES: ALLERGIES Allergen Reactions Doxycycline Rash Palmar rash/discolration/blood blisters - occurred on two separate occasions Environmental [Othe* Hydrocodone Itching Milk Mushrooms [Other] Pollen CURRENT OUTPATIENT MEDICATIONS: rosuvastatin (CRESTOR) 10 mg tablet^Take 10 mg by mouth once daily.^Disp: ^Rfl: metoprolol succinate ER (TOPROL XL) 50 mg 24 hr tablet^Take 50 mg by mouth two times a day.^Disp: ^Rfl: Cholecalciferol, Vitamin D3, (D3-5000) 125 mcg (5,000 unit) cap^Take 1 capsule by mouth two times aday.^Disp: ^Rfl: acetaminophen (TYLENOL) 500 mg tablet^Take by mouth as needed.^Disp: ^Rfl: Vitamin E, dl, acetate, (VITAMIN E) 400 unit capsule^Take 1 capsule by mouth once daily.^Disp: ^Rfl: ursodiol (ACTIGALL) 300 mg capsule^Take 300 mg by mouth two times a day.^Disp: ^Rfl: traZODone (DESYREL) 100 mg tablet^Take 100 mg by mouth daily at bedtime.^Disp: ^Rfl: spironolactone (ALDACTONE) 25 mg tablet^Take 0.5 tablets by mouth once daily.^Disp: ^Rfl: pantoprazole DR (PROTONIX) 40 mg tablet^Take 40 mg by mouth once daily.^Disp: ^Rfl: ondansetron (ZOFRAN) 4 mg tablet^Take 4 mg by mouth as needed.^Disp: ^Rfl: buPROPion XL (WELLBUTRIN XL) 300 mg 24 hr tablet^Take 300 mg by mouth once daily.^Disp: ^Rfl: diphenhydrAMINE (BENADRYL) 25 mg capsule^Take 50 mg by mouth as needed.^Disp: ^Rfl: JARDIANCE 10 mg tablet^Take 10 mg by mouth once daily.^Disp: ^Rfl: hydrOXYchloroQUINE (PLAQUENIL) 200 mg tablet^Take 400 mg by mouth once daily.^Disp: ^Rfl: sildenafil (REVATIO) 20 mg tablet^Take 40 mg by mouth three times a day.^Disp: ^Rfl: ELIQUIS 5 mg tab(s)^Take 5 mg by mouth two times a day.^Disp: ^Rfl: flecainide (TAMBOCOR) 100 mg tablet^Take 50 mg by mouth two times a day.^Disp: ^Rfl: TRELEGY ELLIPTA 100-62.5-25 mcg dsdv^1 Puff once daily.^Disp: ^Rfl: 3 PROAIR HFA 90 mcg/actuation inhaler^as needed.^Disp: ^Rfl: 2 folic acid 1 mg tablet^Take 1 mg by mouth once daily.^Disp: ^Rfl: amLODIPine (NORVASC) 5 mg tablet^^Disp: ^Rfl: ascorbic acid, vitamin C, (VITAMIN C) 500 mg tablet^Take 500 mg by mouth.^Disp: ^Rfl: cyanocobalamin (VITAMIN B-12) 1,000 mcg tab^^Disp: ^Rfl: Iron AspGl and PS Cm-Vit C-Ca-SA 150-50-50 mg cap^Take 150 mg by mouth.^Disp: ^Rfl: montelukast (SINGULAIR) 10 mg tablet^Take 10 mg by mouth daily at bedtime.^Disp: ^Rfl: Cholecalciferol, Vitamin D3, (VITAMIN D-3) 50 mcg (2,000 unit) cap^Take 2 capsules by mouth once daily.^Disp: ^Rfl: melatonin 12 mg tab^Take 2 tablets by mouth at bedtime as needed for for insomnia.^Disp: ^Rfl: tiotropium bromide (SPIRIVA RESPIMAT) 2.5 mcg/actuation inhaler^Inhale 2 Puffs as instructed once daily.^Disp: ^Rfl: cyclobenzaprine (FLEXERIL) 5 mg tablet^Take 5 mg by mouth three times daily as needed.^Disp: ^Rfl: methylPREDNISolone (MEDROL, JORDAN,) 4 mg Dose-Pack^Take as directed^Disp: 1 Package^Rfl: 0 (Patient not taking: Reported on 09/04/2019 ) iron polysaccharide complex (FERREX 150) 150 mg iron capsule^Take 1 capsule by mouth once daily.^Disp: 30 capsule^Rfl: 0 (Patient not taking: Reported on 02/12/2021 ) acetaminophen (TYLENOL) 325 mg tablet^acetaminophen Acetaminophen 650 MG PO EVERY 6 HOURS NEEDEDPRN For Mild Pain (scale 0-3)/T>100.7 July 08, 2018 Active 07-08-2018 [facility] ([id number])^Disp: ^Rfl: bumetanide (BUMEX) 1 mg tablet^1 mg once daily. ^Disp: ^Rfl: (Patient not taking: Reported on 02/12/2021 ) methocarbamol (ROBAXIN) 750 mg tablet^^Disp: ^Rfl: metoprolol succinate ER (TOPROL XL) 50 mg 24 hr tablet^50 mg once daily. takes 25 mg daily ^Disp: ^Rfl: rosuvastatin (CRESTOR) 5 mg tablet^5 mg once daily. ^Disp: ^Rfl: benzonatate (TESSALON PERLE) 100 mg capsule^Take 1 capsule by mouth three times daily as needed.^Disp: 30 capsule^Rfl: 0 (Patient not taking: Reported on 02/23/2019 ) THIAMINE HCL ORAL^Take by mouth.^Disp: ^Rfl: (Patient not taking: Reported on 02/12/2021 ) esomeprazole (NEXIUM) 40 mg capsule^Take 1 capsule by mouth daily before breakfast.^Disp: 30 capsule^Rfl: 11 REVIEW OF SYSTEMS: GENERAL: No fever, night sweats, weight loss or malaise. All other reviewed and negative other than HPI. PHYSICAL EXAMINATION: VITAL SIGNS: BP 125/84 Pulse 58 Temp (Src) 97.5 (Temporal) Ht 5' 6.142[verified with Maren Shields RN[ (1.68m) Wt 257 lb 8 oz (116.8kg) SpO2 97% BMI 41.38 kg/(m^2). GENERAL APPEARANCE: Well appearing, in no acute distress, alert and oriented x3, well-hydrated, well nourished. I spent a total of 45 minutes on the date of the service which included preparing to see the patient, [id number] patient care, completing clinical documentation, obtaining and/or reviewing separately obtained history, counseling and educating the patient/family/caregiver, independently interpretin g results (not separately reported), and communicating results to the patient/family/caregiver. Electronically Signed: Ronal Macdonald MD December 09, 2023 9:14 AM [facility] History of Present illness Narrative* Denise Kline, - 11/13/2023 9:04 AM EDT Images from the original note were not included. RHEUMATOLOGY FOLLOW-UP VISIT Patient Name: Dee Shepherd : 1970 Medical Record: [id number] PCP: Sarai Watkins MD CHIEF COMPLAINT Positive dsDNA and antiphospholipid antibodies ASSESSMENT AND PLAN Dee Shepherd is a 53 y.o. female who is being seen for evaluation of positive dsDNA and antiphospholipid antibodies. Antiphospholipid antibodies While patient has persistent antiphospholipid antibodies on multiple occasion, difficult to tell ifshe has had a clinically relevant thrombotic event. No prior history of miscarriages. She did have a DVT, though this may have been a possible provoked DVT (2015), and patient was just on short-term anticoagulation at that time.. Will refer patient to hematology for further assistance with this diagnosis. Patient is currently on Eliquis, but in discussion with her, this is for A-fib. She wishes to follow with her 's business programmer, and she will let us know the details of this. Positive dsDNA INGE negative previously. Lupus thought to be less likely by Dr. Moncada previously given lack of characteristic symptoms. She was started on hydroxychloroquine given her antiphospholipid antibodies and double-stranded DNA antibody. For now, we will continue with current dose of hydroxychloroquine 400 mg daily. This can be of somebenefit in the setting of antiphospholipid antibodies as well. Will repeat INGE, dsDNA, C3/C4, CBC, and creatinine 2-day for current evaluation of any activity of connective tissue disease. Pulmonary hypertension Right heart catheterization in August 2018 with pulmonary hypertension which was moderate. Echocardiogram from November [address] Moncada queried whether pulmonary hypertension could be related to underlying antiphospholipid antibodies. Will clarify diagnosis with hematology as above. Patient is currently following with Dr. Lugo with pulmonology in [place] who is managing this. Will defer to him on the utility of a VQ scan to evaluate for CTEPH. High risk medication use Patient advised on need for yearly hydroxychloroquine eye exam. Return to clinic in 3 months Please do not hesitate to contact me with any questions or concerns. Denise Kline DO [facility] Rheumat[facility] [address] [place] [address] [place] [address] O: [phone] F: [phone] The above recommendations were discussed with the patient who understands and agrees with the plan. Portions of this note were copied forward from the patient's last clinic visit.? I have reviewed and updated the history, physical exam, data, assessment and plan of the note so that it reflects the evaluation and management of the patient on 11/13/2023. Portions of this note were created with [employer]. Every effort was made to proofread, but sound-alike errors may occasionally occur. Please contact me for any clarification of note contents. I am managing Dee Shepherd for complex chronic condition(s) serving as the focal point for the patient's care for consistency and continuity over time. HPI/ROS Dee Shepherd is a 53 y.o. female who is being seen in follow-up for positive antiphospholipid antibodies and positive dsDNA. Interval history I reviewed the nursing intake form. Any corrections needed have been updated in the [facility]. Prior Dr. Moncada patient. Here to establish care with me today. Discussed her diagnosis of antiphospholipid syndrome. Patient reports that she is very unclear on this. Reports that she had a DVT in 2016, but was not diagnosed with antiphospholipid syndrome at that time. Reports that she was very stationary at the time of diagnosis. She received anticoagulation for a brief period of time. Currently,she was on Eliquis, and that is for her A-fib. She has no history of miscarriages. In regards to her pulmonary hypertension, she had a right heart cath at the end of 2017. She follows with Dr. Lugo - supervisor dog license officer in [place]. She is on sildenafil. Initially, she was referred to Dr. Moncada because of abnormal serologies (positive double-stranded DNA). Ultimately, had been placed on hydroxychloroquine. She thinks it helped a little bit with her joint symptoms. Currently, she reports some mild hair thinning. She also has some right elbow pain. In the past, reports that she has had some swelling. Prior and initial history Originally referred to Dr. Moncada in October 2021 for evaluation of positive double-stranded DNA. Per review of her note, double-stranded DNA elevated at 32 - I also reviewed on original referral documents. Cardiology initially did not want patient to take hydroxychloroquine. Per review of Dr. Moncada's notes, cardiac medications were adjusted to facilitate hydroxychloroquine. Patient also has a history of pulmonary hypertension thought to be secondary to lung disease, FADY, and obesity. There is question on whether antiphospholipid antibodies could be contributing. Serologies/pertinent imaging and pathology December 2015 (lower extremity ultrasound) LEFT SIDE - DEEP VEINS Acute deep vein thrombosis in the distal femoral vein, popliteal vein, posterior tibial veins, peroneal veins and gastrocnemius veins. Labs from October 2021: Negative INGE. Negative c-ANCA/p-ANCA. Normal complements. Beta 2 glycoprotein IgG elevated to 57.8. Cardiolipin IgG elevated to 16.0. Labs from March 2022 with cardiolipin IgG elevated 275.7. Cardiolipin IgM normal. Beta-2 glycoprotein IgG elevated to 58.7. RNA polymerase 3 and centromere antibodies negative. Labs from May 2023 with cardiolipin IgG 94.3 and beta-2 glycoprotein IgG 437.9. Myomarker 3 negative. PHYSICAL EXAM Vitals: 11/13/23 0834 BP: 133/64 Pulse: (!) 55 Weight: 117.1 kg (258 lb 3.2 oz) Constitutional: ?No acute distress. Normal appearance. Not?ill-appearing. HENT: Head normocephalic?and atraumatic. Eyes: No discharge.??? Pulmonary: Pulmonary effort is normal. No?respiratory distress. Skin: Warm?and dry. No rash over exposed surfaces. Neurological: Alert. Psychiatric: ???Mood, affect, thought content normal. Musculoskeletal: Right medial epicondyle with tenderness. No overt synovitis detected. PAST MEDICAL HISTORY Past Medical History: Diagnosis Date Anemia Asthma Clotting disorder (HCC) COPD (chronic obstructive pulmonary disease) (HCC) Hypertension pulmonary Lupus (HCC) MEDICATIONS Reviewed. * Viola Arshad LPN - 11/13/2023 8:35 AM EDT RHEUMATOLOGY FOLLOW-UP VISIT INTAKE: Have you had any new illnesses, infections, or hospitalizations? ? []Yes [x]No If yes, please specify: Are you having any side effects from your rheumatology medications? ? []Yes ? [x]No ? []N/A If yes, please specify: Are you having morning stiffness? ? [x]Yes []No How many minutes does it last? varies Are you having any joint swelling? ? [x]Yes []No If yes, what joints? hands, elbow knees Global Assessment: Considering all of the ways that your disease affects you, how are you doing (0 = best ; 10 = worst)? 4.0 documented in this [id number] Progress note Author Rose Marie Baker [facility] June 25, 2023 11:20am Note Date/Time June 25, 2023 8 :09am [facility] Medical Records Department [address] [place] [address] Progress Note - Hospitalist 06/25/23 0756 MR#: [id number] Acct: [id number] Name: DEE SHEPHERD Rep #:[id number] : 1970 52 From: Rose Marie Baker MD PCP: Dr. Sarai Watkins MD Status:ADM I N Location: [place] [address] Reason for Visit Reason for Visit: Diagnoses Other cardiomyopathies (06/24/23) Unspecified systolic (congestive) heart failure (06/24/23) Pneumonia, unspecified organism (06/24/23) Subjective Subjective Still short of breath, may be slightly better than previous though still not close to baseline and feels unwell, cough has improved significantly however with only 1 episode of coughing up/spitting up blood-tinged sputum, was feeling somewhat sweaty and shaky yesterday Objective Data Objective Data Vital Signs: Vital Signs Temp Pulse Resp BP Pulse Ox O2 Del Method O2 Flow Rate 97.9 F 66 22 H 117/54 L 96 Nasal Cannula 3 06/25/23 04:52 06/25/23 04:52 06/25/23 04:52 06/25/23 04:52 06/25/23 04:52 06/25/23 04:52 06/25/23 04:52 Oxygen Flow Rate (L/min) 3 Oxygen Delivery Method Nasal Cannula Weight: 116.2 kg Body Mass Index (BMI) 41.3 Intake & Output: Intake and Output for Last 24 Hours 06/23/23 06/24/23 06/25/23 23:59 23:59 23:59 Intake Total 270 / 270 400 / 400 Balance 270 / 270 400 / 400 Lab / Micro Data 06/25/23 06:01 06/25/23 06:01 Labs: Laboratory Results - last 24 hr 06/24/23 17:30: WBC 18.2 H, RBC 4.05 L, Hgb 12.5, Hct 39.6, MCV 97.8, MCH 30.9, MCHC 31.6 L, RDW Std Deviation 46.1 H, RDW Coeff of Leighton 12.9, Plt Count 205, MPV9.7, Immature Gran % (Auto) 0.900, Neut % (Auto) 93.5 H, Lymph % (Auto) 1.8 L, [place] % (Auto) 3.3, Eos % (Auto) 0.1, Baso % (Auto) 0.4, Absolute Neuts (auto) 17.0 H, Absolute Lymphs (auto) 0.33 L, Nucleated RBC % 0, Differential Comment ,Sodium 140, Potassium 4.7, Chloride 111 H, Carbon Dioxide 23.0, Anion Gap 6, BUN22 H, Creatinine 1.11 H, Estim Creat Clear Calc 56.34, Est GFR (MDRD) Af Amer 66, Est GFR (MDRD) Non-Af 54 L, BUN/Creatinine Ratio 19.8, Glucose 154 H, Calcium 8.9, Troponin I High Sens 7, B-Natriuretic Peptide 347.8 H 06/25/23 06:01: WBC 6.9, RBC 3.59 L, Hgb 11.6 L, Hct 35.0 L, MCV 97.5, MCH 32.3 H, MCHC 33.1, RDW Std Deviation 46.2 H, RDW Coeff of Leighton 13.0, Plt Count 159, MPV 9.3, Immature Gran % (Auto) 0.600, Neut % (Auto) 84.0 H, Lymph % (Auto) 7.4 L, [place] % (Auto) 6.8, Eos % (Auto) 0.6, Baso % (Auto) 0.6, Absolute Neuts (auto)5.8, Absolute Lymphs (auto) 0.51 L, Nucleated RBC % 0, Differential Comment SCANNED, Sodium 138, Potassium 3.5, Chloride 107, Carbon Dioxide 24.0, Anion Gap7, BUN 19 H, Creatinine 1.08 H, Estim Creat Clear Calc 55.75, Est GFR (MDRD) Af Amer 68, Est GFR (MDRD) Non-Af 56 L, BUN/Creatinine Ratio 17.6, Glucose 98, Calcium 8.6 Micro: Microbiology 06/25/23 02:10 Urine, Clean Catch Legionella Antigen - Final 06/25/23 02:10 Urine, Clean Catch Streptococcus pneumoniae Antigen (M - Final 06/24/23 23:25 Mucosa - Nasopharyngeal Respiratory Panel (PCR) - Final 06/24/23 17:30 Nasal Secretion SARS-CoV-2 & FLU Antigen (Rapid) - Final Radiography Diagnostic Testing: Radiology Impression Chest X-Ray 06/24/23 18:08 IMPRESSION: Findings which may be consistent with congestive failure although pneumonia or other nonspecific causes of pulmonary edema not excluded. Electronically Signed: Edinson Smith MD at 18:23 EDT , Rhythm Strip Rhythm Strip: Sinus Rhythm Rate: 65 Ectopy: None Physical Exam Narrative General: Alert, oriented, appears tired HEENT: Atraumatic, normocephalic Eyes: Anicteric, normal conjunctiva, extraocular movements grossly intact Neck: Supple Respiratory: Somewhat diminished bilaterally, increased respiratory effort with movement Cardiovascular: Regular rate GI: Soft, nontender, nondistended Extremities: No edema Musculoskeletal: Moving all extremities Neuro: No overt focal neurological deficits, no tremor in hands Skin: No rashes appreciated Psych: Cooperative Assessment & Plan Assessment/Plan (1) Non-ischemic cardiomyopathy: (2) HFrEF (heart failure with reduced ejection fraction): (3) Atypical pneumonia: PLAN: Plan #Hypoxia with increasing SOB and history of COPD and hemoptysis -Reports O2 sat was 70% at home and in the ED she was 87% on 5 L with ambulationand dyspneic necessitating admission -Thought to be due to to atypical pneumonia, bilateral pulmonary infiltrates noted on chest x-ray and had low-grade temp at hospital with reported high-gradefever at home -White count 18 with neutrophilia that is resolved with antibiotics -Legionella and strep negative -Nebs, Rocephin and azithromycin?Daily EKGs to assess QTc given patient also on flecainide. Holding hydroxychloroquine at this time. Unable to substitute azithromycin for doxycycline due to hives and Levaquin can also prolong QTc. Monitor closely -Respiratory panel and COVID negative -Follows with Dr. Lugo -Given reports of hemoptysis and patient saying this has been going on for a month with waxing and waning symptoms as well as unclear underlying primary etiology will obtain CT with contrast #FADY/chronic respiratory failure -NIPPV nightly with 2 L O2 #hx non ischemic cardiomyopathy/pulmonary hypertension -Transthoracic echocardiogram on 10/10/2022 showed ejection fraction of 55 to 60%. -Transesophageal echocardiogram on 05/23/2022 showed estimate ejection fraction of 40% -Less likely acute on chronic heart failure with no weight change or swelling and concern for infectious signs and symptoms BNP is mildly elevated however so cannot yet rule this out -Did get Lasix x1 in ED and then was started on IV twice daily however will decrease to IV once daily given she only uses as needed and did not appear to begrossly overloaded on presentation -Continue other home meds #Alcohol use disorder -Drinks 1/2-1/3 of the fifth of whiskey every night, CIWA, as needed Ativan, thiamine and folate #hx ckd stage IIIa -Continue to monitor #afib and history of PE 2016 -flecainide -eliquis #Hypertension -Continue present medications #DVT ppx: Continue Eliquis Rose Marie Baker MD Time spent in the patient's overall evaluation,decision-making process, review of diagnostic data, adjustment of management, discussion with other providers, nursing nursing and ancillary staff involved in patient's care documentation, 45Minutes Charges/Coding Visit Charges Inpatient E&M: 54065 Subs Hosp L2 06/25/23 1120 <Electronically signed by Rose Marie Baker MD> Cosigner Signature (if applicable): CC: ~ Signed [facility] Work Phone: 1(114) 148-738410-25-2023 History and physical note Author Hung Vinson [facility] June 24, 2023 10:06pm Note Date/Time June 24, 2023 8 :54pm [facility] Medical Records Department [address] [place] [address] H&P Exam - Hospitalist 06/24/232053 MR#: [id number] Acct: [id number] Name: DEE SHEPHERD Rep #:[id number] : 1970 52 From: Hung Vinson MD PCP: Dr. Sarai Watkins MD Status:ADM I N Location: [place] [address] HPI - General General Date of Admission: 06/24/23 Date of Service: 06/24/23 Chief Complaint: Shortness of breath HPI Narrative DEE SHEPHERD, is a 52 F with a significant history of COPD; nonischemic cardiomyopathy; alcoholism; atrial fibrillation on flecainide and Eliquis who presents to the emergency department with persistent shortness of breath above her baseline. Patient's symptoms started on the same day of presentation. Associated with her symptoms is hemoptysis. Of note patient took some NyQuil but thinks that the hemoptysis was real since the hematemesis persisted even about 4 hours after taking the NyQuil. Chronically at night patient uses a CPAP with oxygen 2 L bled in. Patient checked her oxygen saturations and it was about 70%. She reports drinking and smoking and night before presentation. She thinks thather cough is from smoking. She reports home temperature of more than 100 Fahrenheit. She reports chills more than her baseline on the day of presentation. She reports headaches She has chronic swelling of bilateral lower extremities last no change. She reports wheezing which is not above her baseline She sleeps on her side chronically because she cannot sleep on her back secondary to pain. She denies paroxysmal nocturnal dyspnea saying that she is always inebriated with sleeping. Patient reported the day before presentation she had a repeat pulmonary functiontests. Patient's supervisor dog license officer is Dr. Lugo. [facility] Medical History Alcohol abuse Allergic rhinitis Anemia Anxiety Atrial fibrillation Atrial flutter Bilateral knee pain Chronic kidney disease (CKD) COPD (chronic obstructive pulmonary disease) CPAP (continuous positive airway pressure) dependence Depression DVT (deep venous thrombosis) Esophageal spasm Essential (primary) hypertension Extremity cyanosis Fatty liver Former smoker Former smoker GERD (gastroesophageal reflux disease) Heart failure with preserved ejection fraction HFrEF (heart failure with reduced ejection fraction) Hiatal hernia History of back problems History of edema History of pain when walking HLD (hyperlipidemia) HTN (hypertension), benign Hyperthyroidism Hypomagnesemia Iron deficiency Migraines Morbid obesity with BMI of 40.0-44.9, adult Non-ischemic cardiomyopathy Obstructive sleep apnea Osteoarthritis PAF (paroxysmal atrial fibrillation) Panic attack Paroxysmal atrial fibrillation Patellofemoral syndrome of both knees PFO (patent foramen ovale) Pulmonary embolism (04/26/16) Secondary pulmonary arterial hypertension Tobacco user Tubular adenoma of colon Home Medications rosuvastatin 5 mg tablet (Crestor) 10 mg PO DAILY cholesterol 06/18/19 [History Last Taken 09/12/22] acetaminophen 500 mg tablet 1,000 mg PO DAILY PRN PRN Pain 1-10 Or Fever 08/01/20 [History Last Taken 09/13/22] cholecalciferol (vitamin D3) 10 mcg (400 unit) capsule 4,000 unit PO DAILY supplement 08/01/20 [History Last Taken 09/12/22] folic acid 1 mg tablet 1 mg PO DAILY supplement 08/01/20 [History Last Taken 09/12/22] multivitamin 1 tab PO DAILY DAILY 12/28/20 [History Last Taken 09/12/22] sildenafil (pulm.hypertension) 20 mg tablet 20 mg PO TID pulmonary HTN 05/01/21 [History Last Taken 09/12/22] fluticasone fur. 100 mcg-umeclid 62.5 mcg-vilant 25 mcg inhalat.powder (Trelegy Ellipta) 1 inh inhalation DAILY COPD 01/20/22 [History Last Taken 09/12/22] trazodone 100 mg tablet 100 mg PO QHS PRN PRN Insomnia 14 days #14 tabs 01/24/22[Rx Last Taken 3 Days Ago ~09/10/22] bupropion HCl 300 mg 24 hr tablet, extended release 300 mg PO DAILY mood 05/16/22 [History Last Taken 09/12/22] celecoxib 100 mg capsule (Celebrex) 100 mg PO DAILY pain 07/18/22 [History Last Taken 09/12/22] empagliflozin 10 mg tablet (Jardiance) 10 mg PO DAILY diabetes #90 tabs 07/18/22[Rx Last Taken 09/12/22] pantoprazole 40 mg tablet,delayed release 40 mg PO QAM #30 tabs 08/13/22 [Rx Last Taken 09/12/22] amlodipine 5 mg tablet (Norvasc) 5 mg PO DAILY pain #30 tabs 09/11/22 [Rx Last Taken 09/13/22] oxycodone 5 mg tablet 5 mg PO Q8H PRN pain 3 days #10 tabs 09/28/22 [Rx Last Taken Unknown] metoprolol tartrate 25 mg tablet 25 mg PO Q12 #180 tabs 10/23/22 [Rx Last Taken Unknown] flecainide 100 mg tablet 50 mg (1/2 x 100 mg) PO BID heart rhythm #60 tabs 10/28/22 [Rx Last Taken 06/24/23] ursodiol 300 mg capsule 300 mg PO BID #180 caps 03/07/23 [Rx Last Taken Unknown] furosemide 40 mg tablet 40 mg PO .COMPLEX edema #14 tabs 04/29/23 [Rx Last Taken Unknown] apixaban 5 mg tablet (Eliquis) 5 mg PO BID blood thinner #60 tabs 06/02/23 [Rx Last Taken Unknown] hydroxychloroquine 200 mg tablet (Plaquenil) 400 mg (2 x 200 mg) PO DAILY #1 TAB06/13/23 [Rx Last Taken Unknown] Allergy/AdvReac Type Severity Reaction Status Date / Time doxycycline Allergy Hives Verified 06/24/23 17:34 hydrocodone [From Vicodin] AdvReac Itching Verified 06/24/23 17:34 Family History Mother Breast cancer Cancer lung cancer Father Cancer lung cancer Hypertension High cholesterol Surgical History H/O repair of rotator cuff History of History of cardiac catheterization History of cardioversion (05/23/22) History of cholecystectomy History of hysterectomy History of nasal surgery History of repair of hiatal hernia (12/2020) History of transesophageal echocardiography (MABEL) (05/23/22) Social History household members: spouse Smoking Status: Current some day smoker tobacco type: cigarettes alcohol intake: current alcohol intake frequency: 3 or more drinks per day Alcohol type: hard liquor details: Started drinking again recently, has been intermittent. Hard liquor drinks. substance use type: does not use ROS ROS Narrative Pertinent positives and pertinent negatives as noted in HPI. All other systems were reviewed and are negative Vital Signs Vital Signs Vital Signs: 06/24/23 17:30 06/24/23 17:35 06/24/23 17:36 Temperature 99.5 F H Temperature Source Temporal Pulse Rate 77 73 Respiratory Rate 30 H 18 Respiratory Effort Short of Breath Labored Respiratory Depth Shallow Respiratory Pattern Tachypnea Blood Pressure 127/73 H Blood Pressure Mean 91 Pulse Ox 90 92 Oxygen Delivery Method Nasal Cannula Nasal Cannula Nasal Cannula Oxygen Flow Rate (L/min) 6 6 6 06/24/23 17:50 06/24/23 18:03 06/24/23 19:40 Temperature Temperature Source Pulse Rate 71 66 Respiratory Rate 16 21 H Respiratory Effort Respiratory Depth Respiratory Pattern Normal Blood Pressure Blood Pressure Mean Pulse Ox 91 83 Oxygen Delivery Method Nasal Cannula Room Air Oxygen Flow Rate (L/min) 6 06/24/23 19:43 Temperature Temperature Source Pulse Rate 59 L Respiratory Rate 18 Respiratory Effort Respiratory Depth Respiratory Pattern Blood Pressure Blood Pressure Mean Pulse Ox 90 Oxygen Delivery Method Nasal Cannula Oxygen Flow Rate (L/min) 2 Weight Weight: 115.666 kg Body Mass Index (BMI) 40.0 Physical Exam Narrative Physical exam: General: Well-nourished, well-developed. Head: Normocephalic, atraumatic, no tenderness Eyes: Vision is grossly intact. EOMI ENT, no trauma, mildly dry mucous membranes, no rhinorrhea Neck: Nontender, No thyromegaly. CVS: Regular rate and rhythm. S1-S2 present. No murmur, gallop or rub. Respiratory : Diminished lung sounds bilaterally, chest wall nontender Abdomen: Soft, nontender, nondistended, normal bowel sounds, no masses : Deferred Back: Nontender, no CVA tenderness, no midline spinal tenderness, deformities, step-offs Extremities: Nontender full range of motion, no trauma. Nonpitting edema of bilateral lower legs Skin: Normal color, no trauma, abrasions Neuro: Alert, oriented, cranial nerves II through XII grossly intact. Psychiatry: Normal mood. Normal affect. Not depressed. Not anxious. Results Lab / Micro Data 06/24/23 17:30 06/24/23 17:30 Labs: Laboratory Results - last 24 hr 06/24/23 17:30: WBC 18.2 H, RBC 4.05 L, Hgb 12.5, Hct 39.6, MCV 97.8, MCH 30.9, MCHC 31.6 L, RDW Std Deviation 46.1 H, RDW Coeff of [place]ight[place] 12.9, Plt Count 205, MPV9.7, Immature Gran % (Auto) 0.900, Neut % (Auto) 93.5 H, Lymph % (Auto) 1.8 L, [place] % (Auto) 3.3, Eos % (Auto) 0.1, Baso % (Auto) 0.4, Absolute Neuts (auto) 17.0 H, Absolute Lymphs (auto) 0.33 L, Nucleated RBC % 0, Differential Comment ,Sodium 140, Potassium 4.7, Chloride 111 H, Carbon Dioxide 23.0, Anion Gap 6, BUN22 H, Creatinine 1.11 H, Estim Creat Clear Calc 56.34, Est GFR (MDRD) Af Amer 66, Est GFR (MDRD) Non-Af 54 L, BUN/Creatinine Ratio 19.8, Glucose 154 H, Calcium 8.9, Troponin I High Sens 7, B-Natriuretic Peptide 347.8 H Micro: Microbiology 06/24/23 17:30 Nasal Secretion SARS-CoV-2 & FLU Antigen (Rapid) - Final Radiology Impression Chest X-Ray 06/24/23 18:08 IMPRESSION: Findings which may be consistent with congestive failure although pneumonia or other nonspecific causes of pulmonary edema not excluded. Electronically Signed: Edinson Smith MD at 18:23 EDT , Assessment & Plan Assessment/Plan (1) Non-ischemic cardiomyopathy: (2) HFrEF (heart failure with reduced ejection fraction): (3) Atypical pneumonia: PLAN: Plan Worsening respiratory failure Like secondary to atypical pneumonia. Impression of chest x-ray by radiologist: Findings which may be consistent with congestive heart failure although pneumonia or other nonspecific causes of pulm edema not excluded. Chest x-ray was independently interpreted by hospitalist: Bilateral pulmonary infiltrate noted. Of note patient had low grade fever at the Hospital; and high grade fever at home. She reports she is above her baseline. White count of 18.2 with neutrophilia and lymphopenia. Trend CBC Legionella antigen screen and Strep antigen ordered. Headaches PRN Tylenol ordered. Chronic heart failure with improved ejection fraction/nonischemic cardiomyopathy Transthoracic echocardiogram on 10/10/2022 showed ejection fraction of 55 to 60%. Transesophageal echocardiogram on 05/23/2022 showed estimate ejection fraction of 40%. Doubt acute on chronic heart failure send patient denies change in weight or change in swelling. BNP is mildly elevated at 347.8. However of note her BNP on 02/06/2023 was 97.7. Received Lasix 20 mg IV at the emergency department. Patient reports that if hetakes Lasix for a long time, but for about a week she develops kidney disease. She takes Lasix only as needed. We will hold off further Lasix at this time. Trend BMP. Daily weights. Fluid restriction. Alcoholism Patient reports drinking about half to a third of a fifth of whiskey every night. She is concerned that she may go into withdrawal with admission. CIWA protocol with as needed Ativan ordered. Thiamine and folic acid p.o. ordered. Paroxysmal A-fib Patient in sinus rhythm at her presentation. Resume home Eliquis; and flecainide. Placed on telemetry. Hypertension Blood pressure is stable. Continue home blood pressure medications when verified. Monitor. CKD stage IIIa Stable Trend BMP. Tobacco abuse Counseled. DVT prophylaxis: Not indicated as patient is on home Eliquis. Resume home Eliquis when medication verified Time spent in the patient's overall evaluation,decision-making process, review of diagnostic data, adjustment of management, discussion with other providers, nursing and ancillary staff involved in patient's care documentation, 72 minutes. Charges/Coding Visit Charges Inpatient E&M: 98606 Init Hosp L3 06/24/232205 <Electronically signed by Hung Vinson MD> Cosigner Signature (if applicable): CC: Dr. Hung Vinson MD; Dr. Sarai Watkins MD~ Signed [facility] Work Phone: 1(283) 792-884910-24-2023 Discharge summary Author Bartolo Callejas [facility] June 24, 2023 9:04pm Note Date/Time June 24, 2023 5 :46pm [facility] Medical Records Department [address] [place] [id number] Emergency Department Summary 06/24/23 MR#: [id number] Acct: [id number] Name: DEE SHEPHERD Rep #:[id number] : 1970 52 From: Bartolo Callejas MD PCP: Dr. Sarai Watkins MD Status:REG E R Location: ED HPI History of Present Illness Chief Complaint: Asthma Informant: patient Narrative Narrative: 52-year-old female with a history of COPD and pulmonary hypertension as well as A-fib/flutter and nonischemic cardiomyopathy presenting with shortness of breaththat started today gradually and is gradually become worse, occasionally felt like she was wheezing but states she mostly just feels like she cannot catch herbreath. Uses 2 L nasal cannula at nighttime only, she states she checked her pulse oximetry at home and she was 70% on room air so she put her oxygen on. Ithelped a little but not very much. No chest discomfort, no chest tightness. Chronic edema in her legs is no different for the last couple months. She states she smoked last night and she thinks that is the cause of this. She did not have dyspnea last night while smoking. She states she has her Trelegy and she has been compliant with that, but although she has albuterol inhaler at home, she has not used any type of rescue breathing treatment or inhaler today with the symptoms. She has developed hemoptysis. She is anticoagulated on apixaban and is also on flecainide for her A-fib and does not feel like she has been in A-fib. [facility] Medical History Alcohol abuse Allergic rhinitis Anemia Anxiety Atrial fibrillation Atrial flutter Bilateral knee pain Chronic kidney disease (CKD) COPD (chronic obstructive pulmonary disease) CPAP (continuous positive airway pressure) dependence Depression DVT (deep venous thrombosis) Esophageal spasm Essential (primary) hypertension Extremity cyanosis Fatty liver Former smoker Former smoker GERD (gastroesophageal reflux disease) Heart failure with preserved ejection fraction HFrEF (heart failure with reduced ejection fraction) Hiatal hernia History of back problems History of edema History of pain when walking HLD (hyperlipidemia) HTN (hypertension), benign Hyperthyroidism Hypomagnesemia Iron deficiency Migraines Morbid obesity with BMI of 40.0-44.9, adult Non-ischemic cardiomyopathy Obstructive sleep apnea Osteoarthritis PAF (paroxysmal atrial fibrillation) Panic attack Paroxysmal atrial fibrillation Patellofemoral syndrome of both knees PFO (patent foramen ovale) Pulmonary embolism (04/26/16) Secondary pulmonary arterial hypertension Tobacco user Tubular adenoma of colon Home Medications rosuvastatin 5 mg tablet (Crestor) 10 mg PO DAILY cholesterol 06/18/19 [History Last Taken 09/12/22] acetaminophen 500 mg tablet 1,000 mg PO DAILY PRN PRN Pain 1-10 Or Fever 08/01/20 [History Last Taken 09/13/22] cholecalciferol (vitamin D3) 10 mcg (400 unit) capsule 4,000 unit PO DAILY supplement 08/01/20 [History Last Taken 09/12/22] folic acid 1 mg tablet 1 mg PO DAILY supplement 08/01/20 [History Last Taken 09/12/22] multivitamin 1 tab PO DAILY DAILY 12/28/20 [History Last Taken 09/12/22] sildenafil (pulm.hypertension) 20 mg tablet 20 mg PO TID pulmonary HTN 05/01/21 [History Last Taken 09/12/22] fluticasone fur. 100 mcg-umeclid 62.5 mcg-vilant 25 mcg inhalat.powder (Trelegy Ellipta) 1 inh inhalation DAILY COPD 01/20/22 [History Last Taken 09/12/22] trazodone 100 mg tablet 100 mg PO QHS PRN PRN Insomnia 14 days #14 tabs 01/24/22[Rx Last Taken 3 Days Ago ~09/10/22] bupropion HCl 300 mg 24 hr tablet, extended release 300 mg PO DAILY mood 05/16/22 [History Last Taken 09/12/22] celecoxib 100 mg capsule (Celebrex) 100 mg PO DAILY 07/18/22 [History Last Taken 09/12/22] empagliflozin 10 mg tablet (Jardiance) 10 mg PO DAILY #90 tabs 07/18/22 [Rx Last Taken 09/12/22] pantoprazole 40 mg tablet,delayed release 40 mg PO QAM #30 tabs 08/13/22 [Rx Last Taken 09/12/22] amlodipine 5 mg tablet (Norvasc) 5 mg PO DAILY #30 tabs 09/11/22 [Rx Last Taken 09/13/22] oxycodone 5 mg tablet 5 mg PO Q8H PRN pain 3 days #10 tabs 09/28/22 [Rx Last Taken Unknown] metoprolol tartrate 25 mg tablet 25 mg PO Q12 #180 tabs 10/23/22 [Rx Last Taken Unknown] flecainide 100 mg tablet 50 mg (1/2 x 100 mg) PO BID #60 tabs 10/28/22 [Rx Last Taken Unknown] ursodiol 300 mg capsule 300 mg PO BID #180 caps 03/07/23 [Rx Last Taken Unknown] furosemide 40 mg tablet 40 mg PO .COMPLEX edema #14 tabs 04/29/23 [Rx Last Taken Unknown] apixaban 5 mg tablet (Eliquis) 5 mg PO BID blood thinner #60 tabs 06/02/23 [Rx Last Taken Unknown] cefuroxime axetil 500 mg tablet 500 mg PO BID 06/13/23 [History Last Taken Unknown] hydroxychloroquine 200 mg tablet (Plaquenil) 400 mg (2 x 200 mg) PO DAILY #1 TAB06/13/23 [Rx Last Taken Unknown] Allergy/AdvReac Type Severity Reaction Status Date / Time doxycycline Allergy Hives Verified 06/24/23 17:34 hydrocodone [From Vicodin] AdvReac Itching Verified 06/24/23 17:34 Family History Mother Breast cancer Cancer lung cancer Father Cancer lung cancer Hypertension High cholesterol Surgical History H/O repair of rotator cuff History of History of cardiac catheterization History of cardioversion (05/23/22) History of cholecystectomy History of hysterectomy History of nasal surgery History of repair of hiatal hernia (12/2020) History of transesophageal echocardiography (MABEL) (05/23/22) Social History household members: spouse Smoking Status: Current some day smoker tobacco type: cigarettes alcohol intake: current alcohol intake frequency: 3 or more drinks per day Alcohol type: hard liquor details: Started drinking again recently, has been intermittent. Hard liquor drinks. substance use type: does not use ROS ROS ED Constitutional Constitutional ED: Denies chills or fever(s) Eyes Eyes: Denies change in vision or diplopia ENT ENT ED: Denies rhinorrhea or sore throat Cardiovascular Cardiovascular: Reports leg edema; Denies chest pain or palpitations Respiratory/Chest Respiratory/Chest: Reports cough, dyspnea and hemoptysis Gastrointestinal Gastrointestinal: Denies abdominal pain, diarrhea, nausea or vomiting Genitourinary Genitourinary ED: Denies dysuria or hematuria Musculoskeletal Musculoskeletal: Denies back pain or neck pain Integumentary Denies abscess or rash Neurologic Neurologic: Denies headache(s), paresthesias or weakness Psychiatric Psychiatric: Denies anxiety or suicidal thoughts EXAM Physical Exam Const Vital Signs: 06/24/23 17:30 06/24/23 17:35 06/24/23 17:36 Temperature 99.5 F H Temperature Source Temporal Pulse Rate 77 73 Respiratory Rate 30 H 18 Respiratory Effort Short of Breath Labored Respiratory Depth Shallow Respiratory Pattern Tachypnea Blood Pressure 127/73 H Blood Pressure Mean 91 Pulse Ox 90 92 Oxygen Delivery Method Nasal Cannula Nasal Cannula Nasal Cannula Oxygen Flow Rate (L/min) 6 6 6 06/24/23 17:50 06/24/23 18:03 06/24/23 19:40 Temperature Temperature Source Pulse Rate 71 66 Respiratory Rate 16 21 H Respiratory Effort Respiratory Depth Respiratory Pattern Normal Blood Pressure Blood Pressure Mean Pulse Ox 91 83 Oxygen Delivery Method Nasal Cannula Room Air Oxygen Flow Rate (L/min) 6 06/24/23 19:43 Temperature Temperature Source Pulse Rate 59 L Respiratory Rate 18 Respiratory Effort Respiratory Depth Respiratory Pattern Blood Pressure Blood Pressure Mean Pulse Ox 90 Oxygen Delivery Method Nasal Cannula Oxygen Flow Rate (L/min) 2 Positive well nourished, well developed and obese General Appearance ED: well developed and NAD Nutritional Appearance: obese HEENT Reports moist mucous membranes normocephalic and atraumatic Eyes PERRL and EOMs intact bilaterally Neck full ROM, no lymphadenopathy, supple and no JVD Resp clear to auscultation bilaterally Resp Narrative: Tachypnea but without respiratory distress or retractions Cardio regular rate, regular rhythm and no murmurs GI non-tender and non-distended Auscultation: normoactive bowel sounds Palpation: soft Back/Spine no CVA tenderness General Back: other FROM Extremity normal to inspection General Extremety ED: Yes edema; Negative for pulses abnormal or tenderness General Extremity: edema bilateral lower extremity Details: moderate (Symmetric without signs of cellulitis or tenderness); Negative for pulses abnormal Neuro oriented x3, CN's II-XII intact bilaterally and no sensory deficits noted Sensorium / Orientation: awake and alert Motor Exam: strength 5/5 throughout Skin no rashes or lesions noted and no wounds MDM MDM MDM Narrative Medical decision making narrative: Differential here includes infectious etiologies, reactive airway/COPD, cardiogenic pulmonary edema, noncardiogenic pulmonary edema. Work-up does not prove 1 over another; she is a leukocytosis, to be chest x-ray my interpretationshows edema versus atypical infection as reported by radiology, this could be either 1. She sounds clear does not sound wet. Her BNP is slightly elevated but not extremely high as would be the case with severe acute decompensated congestive heart failure, her troponin is normal, her EKG is unremarkable, and the rest of her work-up is unremarkable except for mild prerenal azotemia. I am going to cover her for both with antibiotics Levaquin and Lasix, however her IV blew and so she was feeling better after the nebulizers and we ambulated her. She is very hypoxic on 2 L. She preferred to try to go home, so we ambulated her on 5 L which is what her concentrator goes up to and she still desatted downto 87%, and was dyspneic with a short walk. At rest she is recovered, plan is for admission. History & Record Review Additional record(s) reviewed:: Prior outpatient record (echo: EF 55-60% in Oct this year) Lab Data Attestation: I reviewed the patient's lab results. Labs: Laboratory Results - last 24 hr 06/24/23 17:30 WBC 18.2 H RBC 4.05 L Hgb 12.5 Hct 39.6 MCV 97.8 MCH 30.9 MCHC 31.6 L RDW Std Deviation 46.1 H RDW Coeff of [place] 12.9 Plt Count 205 MPV 9.7 Immature Gran % (Auto) 0.900 Neut % (Auto) 93.5 H Lymph % (Auto) 1.8 L [place] % (Auto) 3.3 Eos % (Auto) 0.1 Baso % (Auto) 0.4 Absolute Neuts (auto) 17.0 H Absolute Lymphs (auto) 0.33 L Nucleated RBC % 0 Differential Comment Sodium 140 Potassium 4.7 Chloride 111 H Carbon Dioxide 23.0 Anion Gap 6 BUN 22 H Creatinine 1.11 H Estim Creat Clear Calc 56.34 Est GFR (MDRD) Af Amer 66 Est GFR (MDRD) Non-Af 54 L BUN/Creatinine Ratio 19.8 Glucose 154 H Calcium 8.9 Troponin I High Sens 7 B-Natriuretic Peptide 347.8 H Radiography Diagnostic Testing: Clinical Impression(s) from Imaging Studies Chest X-Ray 06/24/23 18:08 IMPRESSION: Findings which may be consistent with congestive failure although pneumonia or other nonspecific causes of pulmonary edema not excluded. Electronically Signed: Edinson Smith MD at 18:23 EDT , Rhythm Strip Rhythm Strip: Sinus Rhythm Rate: 65 Ectopy: None EKG Initial EKG: Attestation: I personally reviewed and interpreted this EKG as follows: Interpretation: Sinus Rhythm and No Acute Injury Pattern Management Discussion w/another healthcare provider: Hospitalist Discharge Plan Dx/Rx/DC Orders Clinical Impression: Hypoxemia, Non-ischemic cardiomyopathy, Secondary pulmonary arterial hypertension, Atypical pneumonia Disposition Disposition: Acute Care Hospital [facility] What to do if you have Problems For any increased pain, shortness of breath, bleeding, nausea or vomiting, chestpain, or any unexpected problems, contact your Primary Care Provider. Call [facility] ([phone]) or report to the closest Emergency Room. Call 911 if necessary. 06/24/232103 <Electronically signed by Bartolo Callejas MD> Cosigner Signature (if applicable): CC: Dr. Sarai Watkins MD ~ Signed [facility] Work Phone: [phone] 313-132310-24-2023 Discharge summary Author Bartolo Callejas [facility] June 24, 2023 9:04pm Note Date/Time June 24, 2023 5 :46pm [facility] Medical Records Department [address] [place] [address] Emergency Department Summary 06/24/23 MR#: [id number] Acct: [id number] Name: DEE SHEPHERD Rep #:[id number] : 1970 52 From: Bartolo Callejas MD PCP: Dr. Sarai Watkins MD Status:REG E R Location: ED HPI History of Present Illness Chief Complaint: Asthma Informant: patient Narrative Narrative: 52-year-old female with a history of COPD and pulmonary hypertension as well as A-fib/flutter and nonischemic cardiomyopathy presenting with shortness of breaththat started today gradually and is gradually become worse, occasionally felt like she was wheezing but states she mostly just feels like she cannot catch herbreath. Uses 2 L nasal cannula at nighttime only, she states she checked her pulse oximetry at home and she was 70% on room air so she put her oxygen on. Ithelped a little but not very much. No chest discomfort, no chest tightness. Chronic edema in her legs is no different for the last couple months. She states she smoked last night and she thinks that is the cause of this. She did not have dyspnea last night while smoking. She states she has her Trelegy and she has been compliant with that, but although she has albuterol inhaler at home, she has not used any type of rescue breathing treatment or inhaler today with the symptoms. She has developed hemoptysis. She is anticoagulated on apixaban and is also on flecainide for her A-fib and does not feel like she has been in A-fib. [facility] Medical History Alcohol abuse Allergic rhinitis Anemia Anxiety Atrial fibrillation Atrial flutter Bilateral knee pain Chronic kidney disease (CKD) COPD (chronic obstructive pulmonary disease) CPAP (continuous positive airway pressure) dependence Depression DVT (deep venous thrombosis) Esophageal spasm Essential (primary) hypertension Extremity cyanosis Fatty liver Former smoker Former smoker GERD (gastroesophageal reflux disease) Heart failure with preserved ejection fraction HFrEF (heart failure with reduced ejection fraction) Hiatal hernia History of back problems History of edema History of pain when walking HLD (hyperlipidemia) HTN (hypertension), benign Hyperthyroidism Hypomagnesemia Iron deficiency Migraines Morbid obesity with BMI of 40.0-44.9, adult Non-ischemic cardiomyopathy Obstructive sleep apnea Osteoarthritis PAF (paroxysmal atrial fibrillation) Panic attack Paroxysmal atrial fibrillation Patellofemoral syndrome of both knees PFO (patent foramen ovale) Pulmonary embolism (04/26/16) Secondary pulmonary arterial hypertension Tobacco user Tubular adenoma of colon Home Medications rosuvastatin 5 mg tablet (Crestor) 10 mg PO DAILY cholesterol 06/18/19 [History Last Taken 09/12/22] acetaminophen 500 mg tablet 1,000 mg PO DAILY PRN PRN Pain 1-10 Or Fever 08/01/20 [History Last Taken 09/13/22] cholecalciferol (vitamin D3) 10 mcg (400 unit) capsule 4,000 unit PO DAILY supplement 08/01/20 [History Last Taken 09/12/22] folic acid 1 mg tablet 1 mg PO DAILY supplement 08/01/20 [History Last Taken 09/12/22] multivitamin 1 tab PO DAILY DAILY 12/28/20 [History Last Taken 09/12/22] sildenafil (pulm.hypertension) 20 mg tablet 20 mg PO TID pulmonary HTN 05/01/21 [History Last Taken 09/12/22] fluticasone fur. 100 mcg-umeclid 62.5 mcg-vilant 25 mcg inhalat.powder (Trelegy Ellipta) 1 inh inhalation DAILY COPD 01/20/22 [History Last Taken 09/12/22] trazodone 100 mg tablet 100 mg PO QHS PRN PRN Insomnia 14 days #14 tabs 01/24/22[Rx Last Taken 3 Days Ago ~09/10/22] bupropion HCl 300 mg 24 hr tablet, extended release 300 mg PO DAILY mood 05/16/22 [History Last Taken 09/12/22] celecoxib 100 mg capsule (Celebrex) 100 mg PO DAILY 07/18/22 [History Last Taken 09/12/22] empagliflozin 10 mg tablet (Jardiance) 10 mg PO DAILY #90 tabs 07/18/22 [Rx Last Taken 09/12/22] pantoprazole 40 mg tablet,delayed release 40 mg PO QAM #30 tabs 08/13/22 [Rx Last Taken 09/12/22] amlodipine 5 mg tablet (Norvasc) 5 mg PO DAILY #30 tabs 09/11/22 [Rx Last Taken 09/13/22] oxycodone 5 mg tablet 5 mg PO Q8H PRN pain 3 days #10 tabs 09/28/22 [Rx Last Taken Unknown] metoprolol tartrate 25 mg tablet 25 mg PO Q12 #180 tabs 10/23/22 [Rx Last Taken Unknown] flecainide 100 mg tablet 50 mg (1/2 x 100 mg) PO BID #60 tabs 10/28/22 [Rx Last Taken Unknown] ursodiol 300 mg capsule 300 mg PO BID #180 caps 03/07/23 [Rx Last Taken Unknown] furosemide 40 mg tablet 40 mg PO .COMPLEX edema #14 tabs 04/29/23 [Rx Last Taken Unknown] apixaban 5 mg tablet (Eliquis) 5 mg PO BID blood thinner #60 tabs 06/02/23 [Rx Last Taken Unknown] cefuroxime axetil 500 mg tablet 500 mg PO BID 06/13/23 [History Last Taken Unknown] hydroxychloroquine 200 mg tablet (Plaquenil) 400 mg (2 x 200 mg) PO DAILY #1 TAB06/13/23 [Rx Last Taken Unknown] Allergy/AdvReac Type Severity Reaction Status Date / Time doxycycline Allergy Hives Verified 06/24/23 17:34 hydrocodone [From Vicodin] AdvReac Itching Verified 06/24/23 17:34 Family History Mother Breast cancer Cancer lung cancer Father Cancer lung cancer Hypertension High cholesterol Surgical History H/O repair of rotator cuff History of History of cardiac catheterization History of cardioversion (05/23/22) History of cholecystectomy History of hysterectomy History of nasal surgery History of repair of hiatal hernia (12/2020) History of transesophageal echocardiography (MABEL) (05/23/22) Social History household members: spouse Smoking Status: Current some day smoker tobacco type: cigarettes alcohol intake: current alcohol intake frequency: 3 or more drinks per day Alcohol type: hard liquor details: Started drinking again recently, has been intermittent. Hard liquor drinks. substance use type: does not use ROS ROS ED Constitutional Constitutional ED: Denies chills or fever(s) Eyes Eyes: Denies change in vision or diplopia ENT ENT ED: Denies rhinorrhea or sore throat Cardiovascular Cardiovascular: Reports leg edema; Denies chest pain or palpitations Respiratory/Chest Respiratory/Chest: Reports cough, dyspnea and hemoptysis Gastrointestinal Gastrointestinal: Denies abdominal pain, diarrhea, nausea or vomiting Genitourinary Genitourinary ED: Denies dysuria or hematuria Musculoskeletal Musculoskeletal: Denies back pain or neck pain Integumentary Denies abscess or rash Neurologic Neurologic: Denies headache(s), paresthesias or weakness Psychiatric Psychiatric: Denies anxiety or suicidal thoughts EXAM Physical Exam Const Vital Signs: 06/24/23 17:30 06/24/23 17:35 06/24/23 17:36 Temperature 99.5 F H Temperature Source Temporal Pulse Rate 77 73 Respiratory Rate 30 H 18 Respiratory Effort Short of Breath Labored Respiratory Depth Shallow Respiratory Pattern Tachypnea Blood Pressure 127/73 H Blood Pressure Mean 91 Pulse Ox 90 92 Oxygen Delivery Method Nasal Cannula Nasal Cannula Nasal Cannula Oxygen Flow Rate (L/min) 6 6 6 06/24/23 17:50 06/24/23 18:03 06/24/23 19:40 Temperature Temperature Source Pulse Rate 71 66 Respiratory Rate 16 21 H Respiratory Effort Respiratory Depth Respiratory Pattern Normal Blood Pressure Blood Pressure Mean Pulse Ox 91 83 Oxygen Delivery Method Nasal Cannula Room Air Oxygen Flow Rate (L/min) 6 06/24/23 19:43 Temperature Temperature Source Pulse Rate 59 L Respiratory Rate 18 Respiratory Effort Respiratory Depth Respiratory Pattern Blood Pressure Blood Pressure Mean Pulse Ox 90 Oxygen Delivery Method Nasal Cannula Oxygen Flow Rate (L/min) 2 Positive well nourished, well developed and obese General Appearance ED: well developed and NAD Nutritional Appearance: obese HEENT Reports moist mucous membranes normocephalic and atraumatic Eyes PERRL and EOMs intact bilaterally Neck full ROM, no lymphadenopathy, supple and no JVD Resp clear to auscultation bilaterally Resp Narrative: Tachypnea but without respiratory distress or retractions Cardio regular rate, regular rhythm and no murmurs GI non-tender and non-distended Auscultation: normoactive bowel sounds Palpation: soft Back/Spine no CVA tenderness General Back: other FROM Extremity normal to inspection General Extremety ED: Yes edema; Negative for pulses abnormal or tenderness General Extremity: edema bilateral lower extremity Details: moderate (Symmetric without signs of cellulitis or tenderness); Negative for pulses abnormal Neuro oriented x3, CN's II-XII intact bilaterally and no sensory deficits noted Sensorium / Orientation: awake and alert Motor Exam: strength 5/5 throughout Skin no rashes or lesions noted and no wounds MDM MDM MDM Narrative Medical decision making narrative: Differential here includes infectious etiologies, reactive airway/COPD, cardiogenic pulmonary edema, noncardiogenic pulmonary edema. Work-up does not prove 1 over another; she is a leukocytosis, to be chest x-ray my interpretationshows edema versus atypical infection as reported by radiology, this could be either 1. She sounds clear does not sound wet. Her BNP is slightly elevated but not extremely high as would be the case with severe acute decompensated congestive heart failure, her troponin is normal, her EKG is unremarkable, and the rest of her work-up is unremarkable except for mild prerenal azotemia. I am going to cover her for both with antibiotics Levaquin and Lasix, however her IV blew and so she was feeling better after the nebulizers and we ambulated her. She is very hypoxic on 2 L. She preferred to try to go home, so we ambulated her on 5 L which is what her concentrator goes up to and she still desatted downto 87%, and was dyspneic with a short walk. At rest she is recovered, plan is for admission. History & Record Review Additional record(s) reviewed:: Prior outpatient record (echo: EF 55-60% in Oct this year) Lab Data Attestation: I reviewed the patient's lab results. Labs: Laboratory Results - last 24 hr 06/24/23 17:30 WBC 18.2 H RBC 4.05 L Hgb 12.5 Hct 39.6 MCV 97.8 MCH 30.9 MCHC 31.6 L RDW Std Deviation 46.1 H RDW Coeff of Leighton 12.9 Plt Count 205 MPV 9.7 Immature Gran % (Auto) 0.900 Neut % (Auto) 93.5 H Lymph % (Auto) 1.8 L [place] % (Auto) 3.3 Eos % (Auto) 0.1 Baso % (Auto) 0.4 Absolute Neuts (auto) 17.0 H Absolute Lymphs (auto) 0.33 L Nucleated RBC % 0 Differential Comment Sodium 140 Potassium 4.7 Chloride 111 H Carbon Dioxide 23.0 Anion Gap 6 BUN 22 H Creatinine 1.11 H Estim Creat Clear Calc 56.34 Est GFR (MDRD) Af Amer 66 Est GFR (MDRD) Non-Af 54 L BUN/Creatinine Ratio 19.8 Glucose 154 H Calcium 8.9 Troponin I High Sens 7 B-Natriuretic Peptide 347.8 H Radiography Diagnostic Testing: Clinical Impression(s) from Imaging Studies Chest X-Ray 06/24/23 18:08 IMPRESSION: Findings which may be consistent with congestive failure although pneumonia or other nonspecific causes of pulmonary edema not excluded. Electronically Signed: Edinson Smith MD at 18:23 EDT , Rhythm Strip Rhythm Strip: Sinus Rhythm Rate: 65 Ectopy: None EKG Initial EKG: Attestation: I personally reviewed and interpreted this EKG as follows: Interpretation: Sinus Rhythm and No Acute Injury Pattern Management Discussion w/another healthcare provider: Hospitalist Discharge Plan Dx/Rx/DC Orders Clinical Impression: Hypoxemia, Non-ischemic cardiomyopathy, Secondary pulmonary arterial hypertension, Atypical pneumonia Disposition Disposition: Acute Care Hospital [facility] What to do if you have Problems For any increased pain, shortness of breath, bleeding, nausea or vomiting, chestpain, or any unexpected problems, contact your Primary Care Provider. Call [facility] ([phone]) or report to the closest Emergency Room. Call 911 if necessary. 06/24/232103 <Electronically signed by Bartolo Callejas MD> Cosigner Signature (if applicable): CC: Dr. Sarai Watkins MD ~ Signed [facility] Work Phone: [phone]) 803-868609-20-2023 History of Present illness Narrative* Mili Moncada MD - 05/21/2023 2:18 PM EDT Images from the original note were not included. RHEUMATOLOGY EST PATIENT VISIT Patients name: Dee Shepherd : 1970 Today's date: 05/21/2023 Reason for visit: Referred by Dr. Watkins for arthralgia Disease summary: APLS, SLE unlikely Status: Serology: +ve dsDNA, APLS -ve INGE, ANCA, IVONNE Radiology: Current Meds: Pain control: Prior Meds: HPC: This is a 52 y.o. female with a pmhx of tobacco abuse, alcohol abuse, degenerative arthritis, hypertension, A. Fib/flutter,h/o PE/PAH, FADY GERD, obesity who was referred by her primary care physician for an evaluation of lupus as patient tested +ve dsDNA. Outside labs reviewed: Elevated double-stranded DNA 32, lymphopenia, with elevated neutrophil count, normal creatinine, essentially normal GFR, Patient reports longstanding history of arthralgia most notably right shoulder, right knee medial aspect, both hands most notably in bilateral CMC joints. Patient has longstanding history of EtOH abuse and recently restarted smoking. No constitutional symptoms, such as fever, fatigue, lymphadenopathy, or weight loss No photosensitive skin lesions, such as a malar rash No painless oral or nasal ulcers No hair loss that is patchy or frontal/peripheral No Raynaud phenomenon No joint pain or swelling, which can be migratory or symmetrical No dyspnea or pleuritic chest pain suggestive of serositis No chest pain suggestive of pericarditis No lower-extremity edema No neurologic symptoms, such as seizures or psychosis No recurrent miscarriages No exposure to medications associated with drug-induced lupus Has pul HTN->Anatoliy Lugo MD Sleep/Pulm Pain management dr->[facility] Prior Rheum appts: NIL Oct Interim: The patient, Dee, reports that her pulmonary hypertension is currently stable. She was unable tovisit the specialists in [place] due to her 's emergency surgery. She recently experienceda flare of her chronic obstructive pulmonary disease (COPD) and was prescribed medication by her primary care physician. She is scheduled for a pulse oximetry test and a walking and breathing test with Dr. Thayer next week, a routine she has been following for years. She reports that her last testresults were neither particularly good nor bad, as she had just recovered from a cold. She uses supplemental oxygen only with her continuous positive airway pressure (CPAP) device at night and is due for a sleep study soon. Dee's blood tests have shown positive markers for antiphospholipid syndrome. She admits to dailyalcohol consumption and is attempting to quit. Her rig builder helper has recently advised her to reduce her Flecainide dosage from 100mg to 50mg twice daily. She is also on Plaquenil and an anticoagulant. The etiology of her pulmonary hypertension remains unknown to her. She underwent a heart catheterization in 2018 at [facility], which confirmed her diagnosis. She occasionally experiences dyspnea, particularly during physical exertion. She had a chest CT scan in the past, the results of which were normal to her knowledge. She had a thrombotic event years ago and there is a suspicion that her antiphospholipid syndrome could be contributing to her pulmonary hypertension. She has been advised to continue her Plaquenil regimen as it aids in the clearance of antiphospholipid antibodies. She had an echocardiogram in the past but does not recall the exact date. She was hospitalized in September for walking pneumonia and last May for atrial fibrillation. I have reviewed the patient's medical history in detail and updated the computerized patient record. Past Medical History: Diagnosis Date Anemia Asthma Clotting disorder (HCC) COPD (chronic obstructive pulmonary disease) (HCC) Hypertension pulmonary Lupus (HCC) Past Surgical History: Procedure Laterality Date SECTION, CLASSIC CHOLECYSTECTOMY HIATAL HERNIA REPAIR N/A HYSTERECTOMY (CERVIX REMAINS) SHOULDER SURGERY Bilateral SINUS SURGERY deviated septum UMBILICAL HERNIA REPAIR N/A Social History Tobacco Use Smoking status: Some Days Packs/day: .25 Types: Cigarettes Smokeless tobacco: Never Vaping Use Vaping Use: Never used Substance Use Topics Alcohol use: Yes Comment: pt states she is an alcholic Drug use: Not Currently Family History Problem Relation Age of Onset Arthritis Mother Cancer Mother Cancer Father Allergies Allergen Reactions Doxycycline Hives and Rash Patient states she gets a black rash on her hands and her skin falls off. Palmar rash/discolration/blood blisters - occurred on two separate occasions Hydrocodone-Acetaminophen Itching Tramadol GI Intolerance, Itching and Other (See Comments) Nasal congesiton Milk Other (See Comments) Outpatient Medications Marked as Taking for the 05/21/23 encounter (Office Visit) with Mili Moncada MD Medication Sig Dispense Refill acetaminophen (TYLENOL) 500 MG tablet Take by mouth as needed . albuterol (PROVENTIL) 2.5 mg /3 mL (0.083 %) nebulizer solution Inhale 1 Unspecified as needed . buPROPion (WELLBUTRIN XL) 300 MG 24 hr tablet Take 1 (one) tablet (300 mg total) by mouth daily . cholecalciferol, vitamin D3, 50 mcg (2,000 unit) cap Take 2 (two) capsules by mouth daily . Eliquis 5 mg Tab Take 1 (one) tablet (5 mg total) by mouth 2 (two) times a day . flecainide (TAMBOCOR) 100 MG tablet Take 1 (one) tablet (100 mg total) by mouth 2 (two) times a day. hydrOXYchloroQUINE (PLAQUENIL) 200 mg tablet Take 2 (two) tablets (400 mg total) by mouth daily . 180 tablet 3 metoprolol succinate (TOPROL-XL) 50 MG 24 hr tablet Take 1 (one) tablet (50 mg total) by mouth daily . multivitamin (THERAGRAN) per tablet Take by mouth daily . rosuvastatin (CRESTOR) 10 MG tablet Take 1 (one) tablet (10 mg total) by mouth daily . sildenafil, antihypertens, (REVATIO) 20 mg tablet Take 1 (one) tablet (20 mg total) by mouth 3 (three) times a day . Review of Systems: General Constitutional: Denied fevers, chills, anorexia, weight loss, or night sweats Eyes: denied blurry vision, no dry eyes, n o RP ENT: denied nasal drainage, sinus pressure, nasal ulcers Mouth: denied oral ulcers, dry mouth Lymphatics: no new adenopathy in cervical, supraclavicular, axillary, inguinal regions Respiratory: no cough, SOB CV: denied palpitations, chest pain/pressure, PND, orthopnea. GI: denied abd pain, n/v/d, constipation, melena. : denied dysuria, urgency, frequency or hematuria. Skin: no rashes or lesions Musculoskeletal: as per HPI Hematologic/lmmunologic: no adenopathy, bleeding, easy bruisiality or recurrent infection. Neurology: Denied new headaches, speech/balance/coordination problems. Denied new focal numbness orweakness of extremities Psych: denied anxiety, depression or mood swings A 10 point review of systems was completed. Physical Exam: BP (!) 145/90 Pulse (!) 53 Wt 114.8 kg (253 lb) BMI 39.92 kg/m Gen: NAD, resting comfortably,Alert, cooperative, no distress, appears stated age HEENT: NCAT, no temporal wasting, EOMI, perrl, anicteric sclerae, mmm, no op lesions Neck: supple, no thyromegaly or LAD, no bruits Lymphatics: no cervical, axillary, or inguinal adenopathy Chest: Good a/e b/l, no added sounds, no respiratory distress CV: RRR, no m/r/g, normal S1, S2 Abd: soft, nontender, nondistended, +BS, no hepatosplenomegaly Ext: no clubbing, cyanosis or edema MSK: No synovitis of the MCPs or PIPs. Crepitus of the knees no effusion or warmth. Skin: no rashes or lesions Neuro: no focal deficits, moves all four extremities Psych: Mood and affect appropriate DATA: I have reviewed lab work and imaging. Labs:reviewed. Imaging: reviewed. 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 Return to clinic 6-9 mo or as needed Telehealth appointments ok. Mili Moncada MD Steam Press Operator Production Supply Equipment Tender Note: To expedite correspondence this note was generated by [employer] voice recognition software. Somegrammatical or spelling errors may occur using the system. documented in this [id number] NoteHNO ID: [id number] Author: Bartolo Baker MD Service: ? Author Type: Physician Type: Progress Notes Filed: 02/12/2023 11:22 PM Note Text: Bartolo Baker MD Department of Orthopaedics Orthopaedics [address] [facility] [address] Dept: [phone] Dept January 09, 2023 CHIEF COMPLAINT: Established Patient of the Left Shoulder and Last seen 09/27/21 Right 5th MC fracture HPI Patient here for evaluation left shoulder pain. Patient states the pain started about 7-8 months ago. No specific injury. She has had an injection in her shoulder in the past and help. Patient states her pain can come and go. Depends on her activities. Taking Tylenol for the pain and does help. X-rays done today. ASSESSMENT: M25.512, G89.29 Chronic left shoulder pain (primary encounter diagnosis) M25.819 Shoulder impingement PLAN: She is interested in a cortisone injection today. Ms. Dee Shepherd was advised as to contrast therapies and/or to take analgesics/anti-inflammatories as needed and all contraindications were reviewed. OBJECTIVE: Ms. Dee Shepherd is a pleasant 52 year old in no apparent distress. Gen:There were no vitals taken for this visit. nl development, obese, no deformities ENT: Normocephalic, normal hearing, moist mucosa CV: Pulses:Radial= 2+ and symmetric, capillary refill < 2 secs, no peripheral edema/varicosities Skin: no rash, bruising or lesions. Good turgor. Psych: cooperative and appropriate, alert and oriented x 3, good mood and affect. Musculoskeletal: Supple range of motion of the cervical spine without pain. Spurling signs are negative. No atrophy of the deltoid and shoulder musculature. left shoulder is nontender to palpation over the SC joint, clavicle and AC joint. no tenderness to palpation over the posterior shoulder, postitive tenderness to palpation over the anterior lateral corner of the shoulder and greater tuberosity. nontender at the bicipital groove and coracoid. Active range of motion is 160 of forward elevation, 60 external rotation, and internal rotation to the low thoracic. Passive range of motion is symmetrical, limited by some pain, respectively. No laxity with anterior and posterior stress. positive Neer and Murdock impingement signs. 4+/5 strength with supraspinatus, infraspinatus and subscapularis. Sensation is intact in the axillary, radial, median and ulnar nerve distribution Large Joint Arthro/Inj: L subacromial bursa Informed Consent Consent Obtained: Verbal [place] Protocol A moment to CARE was completed. SIGN IN Sign in communication not applicable due to emergent procedure. Personnel directly involved with the procedure wore the appropriate PPE. Special Equipment: N/A Patient/Surrogate Stated/Verified: Patient name, Date of , Relevant allergies and Intended procedure TIME OUT Intended patient and procedure match the source document(s). Consent documented and matches the intended procedure. Relevant labs, photos, and/or imaging studies have been reviewed. Correct side/site marked and visible. Medications required for procedure verified. No fire risk assessment and interventions applicable. No implant(s) inserted. 01/09/2023 12:09 PM The procedure site was prepped in the usual sterile fashion. Site: L subacromial bursa Medications: 6 mg betamethasone acetate-betamethasone sodium phosphate 6 mg/mL Anesthetics: 4 mL lidocaine (PF) 10 mg/mL (1 %) Outcome: Tolerated well, no immediate complications Post-injection instructions were reviewed with the patient and the patient voiced understanding of these instructions. SIGN OUT No instruments, equipment or retained foreign bodies applicable. Imaging: IMPRESSION: Degenerative changes in the left shoulder as described above. Bias Cutter Helper: DORON Transcribe Date/Time: Jan 14 2023 8:30A Dictated by : RUFINO VILLEGAS MD This examination was interpreted and the report reviewed and electronically signed by: RUFINO VILLEGAS MD on Jan 14 2023 8:35AM EST Results-Findings * * *Final Report* * * DATE OF EXAM: Jan 09 2023 11:23AM [id number] - XR SHLDR >/=3V AP/JAVON AP/OTHR LT / PROCEDURE REASON: Left shoulder pain, unspecified chronicity * * * * Physician Interpretation * * * * EXAM TITLE: XR SHLDR >/=3V AP/JAVON AP/OTHR LT EXAM DATE/TIME: 01/09/2023 11:23 AM COMPARISON: X-ray shoulder on 05/14/2010 CLINICAL INDICATION/HISTORY: Shoulder pain. TECHNIQUE: AP, true AP and axillary views of the left shoulder are presented FINDINGS: No acute fractures or subluxations are noted. Acromioclavicular joint space narrowing is demonstrated, with associated osteophyte formation. The glenohumeral joint space is maintained however minimal osteophyte formation is noted. There is a suture anchor in the humeral head. Normal acromiohumeral interval. The mineralization of the bones is normal. There is no significant sof (more content not included)...[facility]05-11-2023 NoteHNO ID: [id number] Author: Neha Solitario RT(R) Service: Nuclear Medicine Author Type: Technologist Type: Progress Notes Filed: 01/09/2023 11:24 AM Note Text: Radiology Service Progress Note PATIENT NAME: Dee Shepherd DATE OF SERVICE: January 09, 2023 TIME: 11:14 AM PATIENT IDENTITY VERIFICATION COMPLETED USING TWO (2) IDENTIFIERS: Name and Date of confirmed by patient verbally. FALL SCREENING: Has the patient had 2 falls in the last year or 1 fall with injury or currently using an Ambulatory Assistive Device (Walker, Cane, Wheelchair, Crutches, etc.)? No PATIENT GENDER DATA: Female. status: : No status: NO. PATIENT RELEVANT IMPLANT DATA REVIEWED: Not Applicable RADIOLOGY DEPARTMENT: General X-ray: Exam(s) Completed: Upper Extremity X-Ray(s): Shoulder, AP / TRUE AP / AXILLARY left PERIPHERAL IV DATA: Not applicable SIGNED BY: Neha Solitario, RT(R) January 09, 2023 11:14 [facility]05-11-2023 History of Present illness Narrative* Bartolo Baker MD - 01/09/2023 11:38 AM EDTAssociated Order(s): Large Joint Arthro/Inj: L subacromial bursa Post-Procedure Diagnose(s): Chronic left shoulder pain; Shoulder impingement Bartolo Baker MD Department of Orthopaedics Orthopaedics [address] [facility] [address] Dept: [phone] Dept January 09, 2023 CHIEF COMPLAINT: Established Patient of the Left Shoulder and Last seen 09/27/21 Right 5th MC fracture HPI Patient here for evaluation left shoulder pain. Patient states the pain started about 7-8 months ago. No specific injury. She has had an injection in her shoulder in the past and help. Patient statesher pain can come and go. Depends on her activities. Taking Tylenol for the pain and does help. X-rays done today. ASSESSMENT: M25.512, G89.29 Chronic left shoulder pain (primary encounter diagnosis) M25.819 Shoulder impingement PLAN: She is interested in a cortisone injection today. Ms. Dee Shepherd was advised as to contrast therapies and/or to take analgesics/anti-inflammatories as needed and all contraindications were reviewed. OBJECTIVE: Ms. Dee Shepherd is a pleasant 52 year old in no apparent distress. Gen:There were no vitals taken for this visit. nl development, obese, no deformities ENT: Normocephalic, normal hearing, moist mucosa CV: Pulses:Radial= 2+ and symmetric, capillary refill < 2 secs, no peripheral edema/varicosities Skin: no rash, bruising or lesions. Good turgor. Psych: cooperative and appropriate, alert and oriented x 3, good mood and affect. Musculoskeletal: Supple range of motion of the cervical spine without pain. Spurling signs are negative. No atrophy of the deltoid and shoulder musculature. left shoulder is nontender to palpation over the SC joint, clavicle and AC joint. no tenderness to palpation over the posterior shoulder, postitive tenderness to palpation over the anterior lateral corner of the shoulder and greater tuberosity. nontender at the bicipital groove and coracoid. Active range of motion is 160 of forward elevation, 60 external rotation, and internal rotation to the low thoracic. Passive range of motion is symmetrical, limited by some pain, respectively. No laxity with anterior and posterior stress. positive Neer and Murdock impingement signs. 4+/5 strength with supraspinatus, infraspinatus and subscapularis. Sensation is intact in the axillary, radial, median and ulnar nerve distribution Large Joint Arthro/Inj: L subacromial bursa Informed Consent Consent Obtained: Verbal [place] Protocol A moment to CARE was completed. SIGN IN Sign in communication not applicable due to emergent procedure. Personnel directly involved with the procedure wore the appropriate PPE. Special Equipment: N/A Patient/Surrogate Stated/Verified: Patient name, Date of , Relevant allergies and Intended procedure TIME OUT Intended patient and procedure match the source document(s). Consent documented and matches the intended procedure. Relevant labs, photos, and/or imaging studies have been reviewed. Correct side/site marked and visible. Medications required for procedure verified. No fire risk assessment and interventions applicable. No implant(s) inserted. 01/09/2023 12:09 PM The procedure site was prepped in the usual sterile fashion. Site: L subacromial bursa Medications: 6 mg betamethasone acetate-betamethasone sodium phosphate 6 mg/mL Anesthetics: 4 mL lidocaine (PF) 10 mg/mL (1 %) Outcome: Tolerated well, no immediate complications Post-injection instructions were reviewed with the patient and the patient voiced understanding of these instructions. SIGN OUT No instruments, equipment or retained foreign bodies applicable. Imaging: IMPRESSION: Degenerative changes in the left shoulder as described above. Bias Cutter Helper: DORON Transcribe Date/Time: Jan 14 2023 8:30A Dictated by : RUFINO VILLEGAS MD This examination was interpreted and the report reviewed and electronically signed by: RUFINO VILLEGAS MD on Jan 14 2023 8:35AM EST Results-Findings * * *Final Report* * * DATE OF EXAM: Jan 09 2023 11:23AM [id number] - XR SHLDR >/=3V AP/JAVON AP/OTHR LT / PROCEDURE REASON: Left shoulder pain, unspecified chronicity * * * * Physician Interpretation * * * * EXAM TITLE: XR SHLDR >/=3V AP/JAVON AP/OTHR LT EXAM DATE/TIME: 01/09/2023 11:23 AM COMPARISON: X-ray shoulder on 05/14/2010 CLINICAL INDICATION/HISTORY: Shoulder pain. TECHNIQUE: AP, true AP and axillary views of the left shoulder are presented FINDINGS: No acute fractures or subluxations are noted. Acromioclavicular joint space narrowing is demonstrated, with associated osteophyte formation. The glenohumeral joint space is maintained however minimal osteophyte formation is noted. There is a suture anchor in the humeral head. Normal acromiohumeral interval. The mineralization of the bones is normal. There is no significant soft tissue swelling. Probably mild supraspinatus tendon calcification. Supporting Subjective Information Below: Past Surgical History: PAST SURGICAL HISTORY Procedure Laterality Date DELIVERY ONLY , low cervical COLONOSCOPY FLX DX W/COLLJ SPEC WHEN PFRMD 07/07/2018 normal - 10 year follow up EGD TRANSORAL BIOPSY SINGLE/MULTIPLE 07/07/2018 gastritis ESOPHAGOGASTRODUODENOSCOPY TRANSORAL DIAGNOSTIC 08/23/2015 EGD PAST SURGICAL HISTORY OF dr yates 06/29/2010 left shoulder repair, tendon repair, calcium deposits removed PAST SURGICAL HISTORY OF 07/2011 nasal surgery PAST SURGICAL HISTORY OF Right 2011 right shoulder surgery PAST SURGICAL HISTORY OF 01/18/2021 lap roddy fundiplication VAGINAL HYSTERECTOMY UTERUS 250 GM/< 2004 Hysterectomy, vaginal cervix and uterus Medications: Current Outpatient Medications Medication Sig amLODIPine (NORVASC) 5 mg tablet ascorbic acid, vitamin C, (VITAMIN C) 500 mg tablet Take 500 mg by mouth. buPROPion XL (WELLBUTRIN XL) 300 mg 24 hr tablet Take by mouth. cyanocobalamin (VITAMIN B-12) 1,000 mcg tab diphenhydrAMINE (BENADRYL) 25 mg capsule Take 50 mg by mouth. JARDIANCE 10 mg tablet Take 10 mg by mouth once daily. hydrOXYchloroQUINE (PLAQUENIL) 200 mg tablet Take 400 mg by mouth. Iron AspGl and PS Cm-Vit C-Ca-SA 150-50-50 mg cap Take 150 mg by mouth. sildenafil (REVATIO) 20 mg tablet Take 20 mg by mouth three times daily. ELIQUIS 5 mg tab(s) Take 1 tablet by mouth twice daily. flecainide (TAMBOCOR) 100 mg tablet Take 1 tablet by mouth twice daily. TRELEGY ELLIPTA 100-62.5-25 mcg dsdv 1 Puff once daily. PROAIR HFA 90 mcg/actuation inhaler as needed. folic acid 1 mg tablet Take 1 mg by mouth once daily. montelukast (SINGULAIR) 10 mg tablet Take 10 mg by mouth daily at bedtime. Cholecalciferol, Vitamin D3, (VITAMIN D-3) 50 mcg (2,000 unit) cap Take 2 capsules by mouth once daily. melatonin 12 mg tab Take 2 tablets by mouth at bedtime as needed for for insomnia. tiotropium bromide (SPIRIVA RESPIMAT) 2.5 mcg/actuation inhaler Inhale 2 Puffs as instructed once daily. cyclobenzaprine (FLEXERIL) 5 mg tablet Take 5 mg by mouth three times daily as needed. methylPREDNISolone (MEDROL, JORDAN,) 4 mg Dose-Pack Take as directed (Patient not taking: Reported on 09/04/2019 ) iron polysaccharide complex (FERREX 150) 150 mg iron capsule Take 1 capsule by mouth once daily. (Patient not taking: Reported on 02/12/2021 ) acetaminophen (TYLENOL) 325 mg tablet acetaminophen Acetaminophen 650 MG PO EVERY 6 HOURS NEEDEDPRN For Mild Pain (scale 0-3)/T>100.7 July 08, 2018 Active 07-08-2018 [facility] ([id number]) bumetanide (BUMEX) 1 mg tablet 1 mg once daily. (Patient not taking: Reported on 02/12/2021 ) methocarbamol (ROBAXIN) 750 mg tablet metoprolol succinate ER (TOPROL XL) 50 mg 24 hr tablet 50 mg once daily. takes 25 mg daily rosuvastatin (CRESTOR) 5 mg tablet 5 mg once daily. benzonatate (TESSALON PERLE) 100 mg capsule Take 1 capsule by mouth three times daily as needed. (Patient not taking: Reported on 02/23/2019 ) THIAMINE HCL ORAL Take by mouth. (Patient not taking: Reported on 02/12/2021 ) esomeprazole (NEXIUM) 40 mg capsule Take 1 capsule by mouth daily before breakfast. Current Facility-Administered Medications Medication Dose Route Frequency perflutren lipid microspheres 1.3 mL in NaCl (PF) 0.9% 10 mL injection (DEFINITY) INTRAVENOUS DIRECTED PRN sodium chloride 0.9 % (flush) 10 mL (BD POSIFLUSH) 10 mL INTRAVENOUS DIRECTED PRN Allergies: Doxycycline, Environmental [Other], Hydrocodone, Milk, Mushrooms [Other], and Pollen ROS: General (negative for fatigue, malaise, weight loss/gain) HEENT (negative for headache, earache, recent vision changes, sinus pain, sore throat) Respiratory (no recent shortness of breath, hemoptysis) CV (negative for chest tightness, palpitations) Musculoskeletal (see HPI) Psych (no depression, anxiety) Bartolo Baker MD documented in this encounterPark[facility]05-[facility] History of Present illness Narrative* Neha Solitario RT(R) - 01/09/2023 11:10 AM EDT Radiology Service Progress Note PATIENT NAME: Dee Shepherd DATE OF SERVICE: January 09, 2023 TIME: 11:14 AM PATIENT IDENTITY VERIFICATION COMPLETED USING TWO (2) IDENTIFIERS: Name and Date of confirmedby patient verbally. FALL SCREENING: Has the patient had 2 falls in the last year or 1 fall with injury or currently using an Ambulatory Assistive Device (Walker, Cane, Wheelchair, Crutches, etc.)? No PATIENT GENDER DATA: Female. status: : No status: NO. PATIENT RELEVANT IMPLANT DATA REVIEWED: Not Applicable RADIOLOGY DEPARTMENT: General X-ray: Exam(s) Completed: Upper Extremity X- Ray(s): Shoulder, AP / TRUE AP / AXILLARY left PERIPHERAL IV DATA: Not applicable SIGNED BY: RT Chavo(R) January 09, 2023 11:14 AM documented in this encounterParkwood Hospital04-24-2023 Telephone encounter Note * Telephone Encounter - Juan Carlos Fraga LPN - 12/23/2022 8:24 AM EDT See mychart messages from pt, also results/notes from her card. [id number] Miscellaneous Notes* Telephone Encounter - Juan Carlos Fraga LPN - 12/23/2022 8:24 AM EDT See mychart messages from pt, also results/notes from her card. documented in this [id number] NoteHNO ID: [id number] Author: HARJINDER Romeo Service: ? Author Type: Respiratory Therapist Type: Procedures Filed: 12/19/2022 11:32 AM Note Text: Attestation signed by Danielle Baez MD at 12/20/2022 11:37 AM The patient completed the six minute walk test with 2 stops. Total Duration Of The Stops (seconds): 10. The patient required Room Air to complete the test. The distance the patient walked in six minutes is extremely reduced. This is the first time patient takes the six minute walk test. The patient perceived their dyspnea during the six minute walk test to be 2-Slight on the modified Yolanda scale. The patient perceived their fatigue during the six minute walk test to be 2-Slight on the modified Yolanda scale. No desaturation with ambulation. I have reviewed the findings and made appropriate revisions as needed. SIGNATURE: Danielle Baez MD PATIENT NAME: Dee Shepherd DATE: December 20, 2022 TIME: 11:37 AM RESPIRATORY THERAPY SIX MINUTE WALK TEST OXIMETRY REPORT Six Minute Walk Test for This Encounter Oxygen Device Liters FIO2 SpO2% HR Activity Feet Speed (MPH) Flag R/A 95 50 Resting R/A 91 74 Six Minute Walk 675 1.3 R/A 92 58 Recovery 1 minute post R/A 95 52 Recovery 2 minute post R/A 95 50 Recovery 3 minute post General Information Height Weight Smoking Status Pulse Oximetry Site Oximeter Pre Blood Pressure Post Blood Pressure Total Time Spent (min) 170.5 cm (5' 7.13) 115.7 kg (255 lb) Current Smoker L Index Finger Masimo 107/54 107/58 60 _ Distance Walked (meters) Distance Walked (feet) Female Predicted Walk Distance (feet) Female Lower Limit of Normal (feet) Female % Predicted Total Duration Of The Stops (seconds) 205.74 675 1475.72 1019.72 45.7 10 _ Lowest SpO2 During 6 Minute Walk Pre-Yolanda Dyspnea Rating Pre-Yolanda Fatigue Rating Post Yolanda Dyspnea Rating Post Yolanda Fatigue Rating O2 Supply Carrier Walking Assistance/Device 90 % 0 0 2 2 -- -- Six Minute Walk Trend (Previous Encounters) None SIGNATURE: HARJINDER Romeo PATIENT NAME: Dee Shepherd DATE: December 19, 2022 TIME: 11:32 [facility]04-20-2023 NoteHNO ID: [id number] Author: HARJINDER Romeo Service: ? Author Type: Respiratory Therapist Type: Progress Notes Filed: 12/19/2022 11:32 AM Note Text: PULM FUNCTION SMARTBLOCK: Provider: Shane Clemons APRN.CABINET MAKER Assisting Tech: HARJINDER Romeo Spirometry w/BD: 1 DLCO: 1 LV - Box: 1 6 [facility] History of Present illness Narrative * HARJINDER Romeo - 12/19/2022 11:28 AM EDT PULM FUNCTION SMARTBLOCK: Provider: Shane Clemons APRN.CABINET MAKER Assisting Tech: HARJINDER Romeo Spirometry w/BD: 1 DLCO: 1 LV - Box: 1 6 MW: 1 documented in this encounterParkwood Hospital03-11-2023 History of Present illness Narrative* SAEID Kelly - 11/09/2022 12:31 PM EST Patient was triaged due to severe abdominal pain. Patient states she has been having right-sided abdominal pain for the past 2 days. She states that it is worse with movement and palpation. She states that the pain is a 10 out of 10. No vomiting or diarrhea. No fevers. She does not have a gallbladder, but does still have her appendix. She has not seen a rash. Due to limited capabilities in express care and severe abdominal pain, patient sent to the emergency room. She will go to [facility] emergency room. ER passport sent. documented in this encounterParkwood Hospital03-02-2023 History of Present illness Narrative* Shane Clemons APRN.CABINET MAKER - 10/31/2022 12:14 PM EST Images from the original note were not included. Patient referred by We have received the following records: Brief HPI: PMH- Tobacco abuse, alcohol abuse, degenerative arthritis, HTN, A- Fib/ Aflutter, FADY, GERD, COPD, Lupus CT chest with contrast Yes Date 08/02/2020 IMPRESSION: 1. 9.2 cm fluid collection in the mediastinum measuring just above simple fluid attenuation which appears to at least abut if not arise from the mid to distal esophagus. Etiology is uncertain given lack of oral contrast or air within this collection which would be expected in the setting of Boerhaave syndrome. Findings may still relate to esophageal rupture or rupture of paraesophageal cyst among other possibilities. 2. Moderate to large hiatal hernia. 3. Mild cardiomegaly. CT chest without contrast 09/13/22 Echocardiogram Yes Date 03/13/22 Right heart catheterization No Date CXR No Date PFTs Yes Date 09/09/22 DLCO No Date VQ scan No Date Creatinine No BNP No Weight 254 lbs I have reviewed the above data. In addition, we need to order PFTs, VQ Scan, Labs, and Echo. documented in this encounterParkwood Hospital02-16-2023 Miscellaneous Notes* Telephone Encounter - Kaylee Smith - 10/17/2022 3:42 PM EST Faxed records request to Dr. Lugo's office. * Telephone Encounter - Kaylee Smith - 10/17/2022 3:[address] Moncada is referring to Dr. Posadas for PH. Care Everywhere indicates that patient sees Anatoliy Lugo (PH: [phone], fax: [phone]) at [facility] for pulmonary. Will request records. Referring physician: Sun Moncada MD Address: [address] [place] [address] Diagnosis: PH Are there epic records: No Are there care everywhere records: Yes Has a referral form been faxed: No Has patient been added to spreadsheet: Yes Routing: If records complete - route to [facility] pool for clinical team review. If records incomplete - please route to administrative assistant coordinator. documented in this encounterParkwood Hospital02-16-2023 History of Present illness Narrative* Mili Moncada MD - 10/17/2022 10:18 AM EST Images from the original note were not included. Telephone Visit Via Phone Call I discussed risks, benefits and alternatives of a telephone visit telemedicine consultation with the patient (and any accompanying persons) including the risks that the patient's personal health details and medical records will be discussed over real-time, synchronous, interactive audio technology,the visit will not be recorded without the express consent of both the provider and the patient, and that there are inherent diagnostic limitations compared to [id number] evaluations. We elected toproceed with the telephone visit telemedicine consultation. I have spent 30 minutes with the patient reviewing the HPI, reviewing and updating the medical records & coordination of care. The patient indicates understanding of these issues and agrees with the plan. RHEUMATOLOGY EST PATIENT VISIT Patients name: Dee Shepherd : 1970 Today's date: 10/17/2022 Reason for visit: Referred by Dr. Watkins for arthralgia Disease summary: APLS, SLE unlikely Status: Not on HCQ as per cards Serology: +ve dsDNA, APLS -ve INGE, ANCA, IVONNE Radiology: Current Meds: Pain control: Prior Meds: HPC: This is a 51 y.o. female with a pmhx of tobacco abuse, alcohol abuse, degenerative arthritis, hypertension, A. Fib/flutter,h/o PE/PAH, FADY GERD, obesity who was referred by her primary care physician for an evaluation of lupus as patient tested +ve dsDNA. Outside labs reviewed: Elevated double-stranded DNA 32, lymphopenia, with elevated neutrophil count, normal creatinine, essentially normal GFR, Patient reports longstanding history of arthralgia most notably right shoulder, right knee medial aspect, both hands most notably in bilateral CMC joints. Patient has longstanding history of EtOH abuse and recently restarted smoking. No constitutional symptoms, such as fever, fatigue, lymphadenopathy, or weight loss No photosensitive skin lesions, such as a malar rash No painless oral or nasal ulcers No hair loss that is patchy or frontal/peripheral No Raynaud phenomenon No joint pain or swelling, which can be migratory or symmetrical No dyspnea or pleuritic chest pain suggestive of serositis No chest pain suggestive of pericarditis No lower-extremity edema No neurologic symptoms, such as seizures or psychosis No recurrent miscarriages No exposure to medications associated with drug-induced lupus Has pul HTN->Anatoliy Lugo MD Sleep/Pulm Pain management dr->[facility] Prior Rheum appts: NIL Oct Interim: Labs reviewed xrays reviewed Records reviewed -> severe PAH (77) On sildenafil APLS I have reviewed the patient's medical history in detail and updated the computerized patient record. Past Medical History: Diagnosis Date Anemia Asthma Clotting disorder (HCC) COPD (chronic obstructive pulmonary disease) (HCC) Hypertension pulmonary Lupus (HCC) Past Surgical History: Procedure Laterality Date SECTION, CLASSIC CHOLECYSTECTOMY HIATAL HERNIA REPAIR N/A HYSTERECTOMY (CERVIX REMAINS) SHOULDER SURGERY Bilateral SINUS SURGERY deviated septum UMBILICAL HERNIA REPAIR N/A Social History Tobacco Use Smoking status: Some Days Packs/day: 0.25 Types: Cigarettes Smokeless tobacco: Never Vaping Use Vaping Use: Never used Substance Use Topics Alcohol use: Yes Comment: pt states she is an alcholic Drug use: Not Currently Family History Problem Relation Age of Onset Arthritis Mother Cancer Mother Cancer Father Allergies Allergen Reactions Doxycycline Hives and Rash Patient states she gets a black rash on her hands and her skin falls off. Palmar rash/discolration/blood blisters - occurred on two separate occasions Hydrocodone-Acetaminophen Itching Tramadol GI Intolerance, Itching and Other (See Comments) Nasal congesiton Milk Other (See Comments) No outpatient medications have been marked as taking for the 10/17/22 encounter (Appointment) with Mili Moncada MD. Review of Systems: General Constitutional: Denied fevers, chills, anorexia, weight loss, or night sweats Eyes: denied blurry vision, no dry eyes, n o RP ENT: denied nasal drainage, sinus pressure, nasal ulcers Mouth: denied oral ulcers, dry mouth Lymphatics: no new adenopathy in cervical, supraclavicular, axillary, inguinal regions Respiratory: no cough, SOB CV: denied palpitations, chest pain/pressure, PND, orthopnea. GI: denied abd pain, n/v/d, constipation, melena. : denied dysuria, urgency, frequency or hematuria. Skin: no rashes or lesions Musculoskeletal: as per HPI Hematologic/lmmunologic: no adenopathy, bleeding, easy bruisiality or recurrent infection. Neurology: Denied new headaches, speech/balance/coordination problems. Denied new focal numbness orweakness of extremities Psych: denied anxiety, depression or mood swings A 10 point review of systems was completed. Physical Exam: There were no vitals taken for this visit. DATA: I have reviewed lab work and imaging. Labs:reviewed. Imaging: reviewed. 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 The patient indicates understanding of these issues and agrees with the plan. Return to clinic 6-9 mo Telehealth appointments ok. Mili Moncada MD Steam Press Operator Production Supply Equipment Tender Note: To expedite correspondence this note was generated by [employer] voice recognition software. Somegrammatical or spelling errors may occur using the system. documented in this [id number] History of Present illness Narrative* Mili Moncada MD - 02/13/2022 1:40 PM EDT Images from the original note were not included. Telephone Visit Via Phone Call I discussed risks, benefits and alternatives of a telephone visit telemedicine consultation with the patient (and any accompanying persons) including the risks that the patient's personal health details and medical records will be discussed over real-time, synchronous, interactive audio technology,the visit will not be recorded without the express consent of both the provider and the patient, and that there are inherent diagnostic limitations compared to [id number] evaluations. We elected toproceed with the telephone visit telemedicine consultation. I have spent 30 minutes with the patient reviewing the HPI, reviewing and updating the medical records & coordination of care. The patient indicates understanding of these issues and agrees with the plan. RHEUMATOLOGY EST PATIENT VISIT Patients name: Dee Shepherd : 1970 Today's date: 02/13/2022 Reason for visit: Referred by Dr. Watkins for Lupus Disease summary: Status: Serology: +ve dsDNA, APLS -ve INGE, ANCA, IVONNE Radiology: Current Meds: Pain control: Prior Meds: HPC: This is a 51 y.o. female with a pmhx of tobacco abuse, alcohol abuse, degenerative arthritis, hypertension, A. Fib/flutter,h/o PE/PAH, FADY GERD, obesity who was referred by her primary care physician for an evaluation of lupus as patient tested +ve dsDNA. Outside labs reviewed: Elevated double-stranded DNA 32, lymphopenia, with elevated neutrophil count, normal creatinine, essentially normal GFR, Patient reports longstanding history of arthralgia most notably right shoulder, right knee medial aspect, both hands most notably in bilateral CMC joints. Patient has longstanding history of EtOH abuse and recently restarted smoking. No constitutional symptoms, such as fever, fatigue, lymphadenopathy, or weight loss No photosensitive skin lesions, such as a malar rash No painless oral or nasal ulcers No hair loss that is patchy or frontal/peripheral No Raynaud phenomenon No joint pain or swelling, which can be migratory or symmetrical No dyspnea or pleuritic chest pain suggestive of serositis No chest pain suggestive of pericarditis No lower-extremity edema No neurologic symptoms, such as seizures or psychosis No recurrent miscarriages No exposure to medications associated with drug-induced lupus Has pul HTN->Anatoliy Lugo MD Sleep/Pulm Pain management dr->[facility] Prior Rheum appts: NIL Interim: Labs reviewed xrays reviewed Patient off etOH and cigarettes. Pain in joints and back Tells me she has PAH -> cause unknown, I dont have records. I have reviewed the patient's medical history in detail and updated the computerized patient record. Past Medical History: Diagnosis Date Anemia Asthma Clotting disorder (HCC) COPD (chronic obstructive pulmonary disease) (HCC) Hypertension pulmonary Lupus (HCC) Past Surgical History: Procedure Laterality Date SECTION, CLASSIC CHOLECYSTECTOMY HIATAL HERNIA REPAIR N/A HYSTERECTOMY (CERVIX REMAINS) SHOULDER SURGERY Bilateral SINUS SURGERY deviated septum UMBILICAL HERNIA REPAIR N/A Social History Tobacco Use Smoking status: Some Days Packs/day: 0.25 Pack years: 0.00 Types: Cigarettes Smokeless tobacco: Never Vaping Use Vaping Use: Never used Substance Use Topics Alcohol use: Yes Comment: pt states she is an alcholic Drug use: Not Currently Family History Problem Relation Age of Onset Arthritis Mother Cancer Mother Cancer Father Allergies Allergen Reactions Doxycycline Hives and Rash Patient states she gets a black rash on her hands and her skin falls off. Palmar rash/discolration/blood blisters - occurred on two separate occasions Hydrocodone-Acetaminophen Itching Tramadol GI Intolerance, Itching and Other (See Comments) Nasal congesiton Milk Other (See Comments) No outpatient medications have been marked as taking for the 02/13/22 encounter (Telemedicine Telephone) with Mili Moncada MD. Review of Systems: General Constitutional: Denied fevers, chills, anorexia, weight loss, or night sweats Eyes: denied blurry vision, no dry eyes, n o RP ENT: denied nasal drainage, sinus pressure, nasal ulcers Mouth: denied oral ulcers, dry mouth Lymphatics: no new adenopathy in cervical, supraclavicular, axillary, inguinal regions Respiratory: no cough, SOB CV: denied palpitations, chest pain/pressure, PND, orthopnea. GI: denied abd pain, n/v/d, constipation, melena. : denied dysuria, urgency, frequency or hematuria. Skin: no rashes or lesions Musculoskeletal: as per HPI Hematologic/lmmunologic: no adenopathy, bleeding, easy bruisiality or recurrent infection. Neurology: Denied new headaches, speech/balance/coordination problems. Denied new focal numbness orweakness of extremities Psych: denied anxiety, depression or mood swings A 10 point review of systems was completed. Physical Exam: There were no vitals taken for this visit. DATA: I have reviewed lab work and imaging. Labs:reviewed. Imaging: reviewed. 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 Return to clinic 6-9 mo Telehealth appointments ok. Mili Moncada MD [employer] T[employer] Note: To expedite correspondence this note was generated by [employer] voice recognition software. Somegrammatical or spelling errors may occur using the system. documented in this [id number] History of Present illness Narrative* Mili Moncada MD - 11/22/2021 1:54 PM EDT Images from the original note were not included. Telephone Visit Via Phone Call I discussed risks, benefits and alternatives of a telephone visit telemedicine consultation with the patient (and any accompanying persons) including the risks that the patient's personal health details and medical records will be discussed over real-time, synchronous, interactive audio technology,the visit will not be recorded without the express consent of both the provider and the patient, and that there are inherent diagnostic limitations compared to [id number] evaluations. We elected toproceed with the telephone visit telemedicine consultation. I have spent 30 minutes with the patient reviewing the HPI, reviewing and updating the medical records & coordination of care. The patient indicates understanding of these issues and agrees with the plan. RHEUMATOLOGY EST PATIENT VISIT Patients name: Dee Shepherd : 1970 Today's date: 11/22/2021 Reason for visit: Referred by Dr. Watkins for Lupus Disease summary: Status: Serology: +ve dsDNA -ve Radiology: Current Meds: Pain control: Prior Meds: HPC: This is a 51 y.o. female with a pmhx of tobacco abuse, alcohol abuse, degenerative arthritis, hypertension, A. Fib/flutter,h/o PE/PAH, FADY GERD, obesity who was referred by her primary care physician for an evaluation of lupus as patient tested +ve dsDNA. Outside labs reviewed: Elevated double-stranded DNA 32, lymphopenia, with elevated neutrophil count, normal creatinine, essentially normal GFR, Patient reports longstanding history of arthralgia most notably right shoulder, right knee medial aspect, both hands most notably in bilateral CMC joints. Patient has longstanding history of EtOH abuse and recently restarted smoking. No constitutional symptoms, such as fever, fatigue, lymphadenopathy, or weight loss No photosensitive skin lesions, such as a malar rash No painless oral or nasal ulcers No hair loss that is patchy or frontal/peripheral No Raynaud phenomenon No joint pain or swelling, which can be migratory or symmetrical No dyspnea or pleuritic chest pain suggestive of serositis No chest pain suggestive of pericarditis No lower-extremity edema No neurologic symptoms, such as seizures or psychosis No recurrent miscarriages No exposure to medications associated with drug-induced lupus Prior Rheum appts: NIL Interim: Labs reviewed xrays reviewed Pain inhands is worst Sometimes N&T No redness or swelling Cards said no HCQ I have reviewed the patient's medical history in detail and updated the computerized patient record. Past Medical History: Diagnosis Date Anemia Asthma Clotting disorder (HCC) COPD (chronic obstructive pulmonary disease) (HCC) Hypertension pulmonary Lupus (HCC) Past Surgical History: Procedure Laterality Date SECTION, CLASSIC CHOLECYSTECTOMY HIATAL HERNIA REPAIR N/A HYSTERECTOMY (CERVIX REMAINS) SHOULDER SURGERY Bilateral SINUS SURGERY deviated septum UMBILICAL HERNIA REPAIR N/A Social History Tobacco Use Smoking status: Current Some Day Smoker Packs/day: 0.25 Smokeless tobacco: Never Used Vaping Use Vaping Use: Never used Substance Use Topics Alcohol use: Yes Comment: pt states she is an alcholic Drug use: Not Currently Family History Problem Relation Age of Onset Arthritis Mother Cancer Mother Cancer Father Allergies Allergen Reactions Doxycycline Hives and Rash Patient states she gets a black rash on her hands and her skin falls off. Palmar rash/discolration/blood blisters - occurred on two separate occasions Hydrocodone-Acetaminophen Itching Tramadol GI Intolerance, Itching and Other (See Comments) Nasal congesiton Milk Other (See Comments) No outpatient medications have been marked as taking for the 11/22/21 encounter (Appointment) with Mili Moncada MD. Review of Systems: General Constitutional: Denied fevers, chills, anorexia, weight loss, or night sweats Eyes: denied blurry vision, no dry eyes, n o RP ENT: denied nasal drainage, sinus pressure, nasal ulcers Mouth: denied oral ulcers, dry mouth Lymphatics: no new adenopathy in cervical, supraclavicular, axillary, inguinal regions Respiratory: no cough, SOB CV: denied palpitations, chest pain/pressure, PND, orthopnea. GI: denied abd pain, n/v/d, constipation, melena. : denied dysuria, urgency, frequency or hematuria. Skin: no rashes or lesions Musculoskeletal: as per HPI Hematologic/lmmunologic: no adenopathy, bleeding, easy bruisiality or recurrent infection. Neurology: Denied new headaches, speech/balance/coordination problems. Denied new focal numbness orweakness of extremities Psych: denied anxiety, depression or mood swings A 10 point review of systems was completed. Physical Exam: There were no vitals taken for this visit. DATA: I have reviewed lab work and imaging. Labs:reviewed. Imaging: reviewed. Health Maintenance Due Topic Date Due Pap Smear Never done Wellness Visit Never done Depression Screening (PHQ-2/9) Never done HIV Screening Never done Hepatitis C Screening Never done Mammogram Never done Zoster Vaccines (1 of 2) Never done Sequential Influenza Vaccine (1) 05/02/2021 Assessment & Plan Arthralgia / to DJD - SLE w/u neg, patient reports N&T in hands - No HCQ allowed as per cards - patient will call if she experiences new sx: swelling or redness of joints - will consider EMG of b/l UE if N&T worsens The patient indicates understanding of these issues and agrees with the plan. Return to clinic as needed Telehealth appointments ok. Mili Moncada MD [employer] Tender Note: To expedite correspondence this note was generated by [employer] voice recognition software. Somegrammatical or spelling errors may occur using the system. documented in this [id number] History of Present illness Narrative* Neha Solitario, RT(R) - 02/23/2021 4:00 PM EDT Radiology Service Progress Note PATIENT NAME: Dee Shepherd DATE OF SERVICE: February 23, 2021 TIME: 4:04 PM PATIENT IDENTITY VERIFICATION COMPLETED USING TWO (2) IDENTIFIERS: Name and Date of confirmedby patient verbally. FALL SCREENING: Has the patient had 2 falls in the last year or 1 fall with injury or currently using an Ambulatory Assistive Device (Walker, Cane, Wheelchair, Crutches, etc.)? No PATIENT GENDER DATA: Female. status: : No status: NO. PATIENT RELEVANT IMPLANT DATA REVIEWED: Not Applicable RADIOLOGY DEPARTMENT: General X-ray: Exam(s) Completed: Upper Extremity X- Ray(s): Hand, left PERIPHERAL IV DATA: Not applicable SIGNED BY: RT Chavo(R) February 23, 2021 4:04 PM [facility] NoteDischarge Summary Dee Shepherd : 1970 ADMIT DATE: 01/18/2021 DISCHARGE DATE: 01/20/2021 ATTENDING PHYSICIAN: Sumeet Street DO VISIT STATUS: Admission CODE STATUS: Full Code DISCHARGE DIAGNOSES: Active Problems: Hiatal hernia Resolved Problems: * No resolved hospital problems. * BMI Classification: Obese (BMI 30.0-39.9) HOSPITAL COURSE: Dee Shepherd is a 50 y.o. female who presented to [facility] on 01/18/2021 for elective HH repair, Roddy fundoplication with sidra gastroplasty and mesh on the day of admission. An UGI was obtained POD #1 and bariatric clear liquid diet was subsequently started.They were prepared for discharge POD #2. At the time of discharge patient's vital signs were within normal limits. Patient was voiding spontaneously, tolerating a diet, ambulating independently and having bowel function. Patient's pain was controlled with PO pain meds. Pt was discharged with instructions as follows. CONSULTANTS: none SIGNIFICANT DIAGNOSTIC STUDIES: UGI DISCHARGE MEDICATIONS: Dee Shepherd Home Medication Instructions REED:[id number] Printed on:01/20/21 3240 Medication Information albuterol (PROVENTIL) (2.5 MG/3ML) 0.083% nebulizer solution INHALE the contents of 1 (ONE) vial in a NEBULIZER EVERY 6 HOURS NEEDED apixaban (ELIQUIS) 5 MG TABS tablet Take 5 mg by mouth 2 times daily bumetanide (BUMEX) 0.5 MG tablet Take 0.5 mg by mouth daily Cholecalciferol (VITAMIN D3 PO) Take 4,000 Units by mouth daily cyclobenzaprine (FLEXERIL) 5 MG tablet Take 5 mg by mouth 3 times daily as needed cyclobenzaprine (FLEXERIL) 5 MG tablet TAKE 1 TABLET BY MOUTH THREE TIMES DAILY diphenhydrAMINE (BENADRYL ALLERGY) 25 MG capsule Take 50 mg by mouth 2 times daily Indications: pt takes prn Esomeprazole Magnesium (NEXIUM PO) Take 40 mg by mouth daily flecainide (TAMBOCOR) 100 MG tablet TAKE 1 TABLET BY MOUTH TWICE DAILY folic acid (FOLVITE) 1 MG tablet Take 1 mg by mouth daily lisinopril-hydroCHLOROthiazide (PRINZIDE;ZESTORETIC) 10-12.5 MG per tablet Take 1 tablet by mouth daily metoprolol succinate (TOPROL XL) 50 MG extended release tablet Take 50 mg by mouth daily Indications: pt takes 25 mg po bid montelukast (SINGULAIR) 10 MG tablet Take 10 mg by mouth nightly nortriptyline (PAMELOR) 50 MG capsule Take 100 mg by mouth nightly ondansetron (ZOFRAN) 4 MG tablet Take 1 tablet by mouth daily as needed for Nausea or Vomiting oxyCODONE-acetaminophen (PERCOCET) 5-325 MG per tablet Take 1 tablet by mouth every 6 hours as needed for Pain for up to 5 days. Intended supply: 5 days. Take lowest dose possible to manage pain pantoprazole (PROTONIX) 40 MG tablet Indications: has not started. PROAIR HFA 108 (90 Base) MCG/ACT inhaler as needed rosuvastatin (CRESTOR) 10 MG tablet Take 10 mg by mouth daily sildenafil (REVATIO) 20 MG tablet Take 20 mg by mouth 3 times daily sildenafil (VIAGRA) 25 MG tablet Take 25 mg by mouth 3 times daily SYNTHROID 25 MCG tablet Take 25 mcg by mouth Daily TRELEGY ELLIPTA 100-62.5-25 MCG/INH AEPB Inhale 1 puff into the lungs daily vitamin D (CHOLECALCIFEROL) 50 MCG (2000 UT) TABS tablet TAKE 2 TABLETS BY MOUTH DAILY DIET: Roddy Diet Protocol with Clears, instruction for continued diet included in discharge instructions. ACTIVITY: No driving while on narcotic pain medication. No heavy lifting. No strenuous activity. Instructions to proceed will be provided during outpatient follow up. WOUND CARE: keep wound clean and dry DISPOSITION: Home FACILITY/HOME CARE AGENCY NAME: N/A Follow up with: Sumeet Street DO in 1-2 weeks PCP: SARAI WATKINS MD in 1-2 weeks SIGNED: Ondina Do DO 01/20/2021, 10:53 [facility]05-22-2021 History of Present illness Narrative* Rachel Bustillos - 01/20/2021 12:51 PM EDT .Nutrition rescreen completed. Patient is NPO/Clear liquid >3 days. Refer to Dietitian.Rachel Bustillos DT * Deepthi Robb - 01/19/2021 1:57 PM EDT [facility] Respiratory Care Department Progress Note As part of the Respiratory Assessment Program (RAP), the following Respiratory Therapist evaluationhas been completed, including a chart review and clinical/physical assessment. Respiratory Therapist RAP Evaluation Guideline Points 0 1 2 3 4 Points Strongly Consider History Factor No Pulmonary conditions Stable Pulmonary condition(s) Surgery or Intervention that may impact Pulmonary system (at risk) Surgery or Intervention that is impacting Pulmonary system Active Exacerbation of Pulmonary Condition 1 Respiratory Pattern Regular, RR= 12-18 ANGELO or Increased RR= 19-24 Irregular, or RR= 25-30 SOB, talk in short sentences, or RR= 31-35 Severe SOB, accessory muscle use, one word answers, or RR>35 1 Aerosol Med(s), High Flow O2 Breath Sounds Clear Diminished in 1 lobe Diminished in ? 2 lobes Adventitious breath sounds Coarse crackles, Wheezes, or Diminished in >2 lobes 1 Aerosol Med(s), Bronchial Hygiene, Hyperinflation Cough & Sputum Strong cough, no secretion retention or production Weak cough, no secretion retention or production Weak cough, w/ production (less often than Q2hr), or secretion retention No cough, w/ secretion retention or production (less often than Q2hr) Significant secretion production (more often than Q2hr) or mucus plug 0 Aerosol Med(s), Bronchial Hygiene, Hyperinflation Level of Activity Ambulatory Ambulatory with Assist Up in chair or edge of bed (dangle) Non-ambulatory, bedridden with active ROM Completely paralyzed or without active ROM 0 Triage 5 0-2 Triage 4 3-5 Triage 3 6-10 Triage 2 11-14 Triage 1 ?15 Total 3 Triage Score = 4 TRIAGE SCORING SUGGESTED FREQUENCIES Aerosol Therapy Bronchial Hygiene Hyperinflation Triage Score Q4h & PRN 1 Q4hWA (QID) & PRN 2 TID & PRN 3 BID & PRN 4 PRN 5 Therapy(s) Indicated Yes/No Aerosol Medication y Hyperinflation n Bronchial Hygiene n High Flow Oxygen n RT to enter/modify frequency of treatment order in EMR/EHR to match this RAP evaluation. Based on this RAP evaluation the following therapy is being initiated: Proventil At the following frequency: PRN Comments: Thank you for involving Respiratory in the care of this patient, * Marisela Espinal - 01/19/2021 8:51 AM EDT Preliminary negative documented in this [facility] Work Phone: [phone]) 413-853205-20-2021 NoteProcedure: 1. LAPAROSCOPIC RODDY FUNDOPLICATION -with Lamona Bio A 2. LAPAROSCOPIC SIDRA GASTROPLASY 3. 60 MINUTES OF EXTRA DISSECTION 4. EGD ? Preoperative Diagnosis: LARGE Hiatal hernia with gastroesophageal reflux. ? Postoperative Diagnosis: LARGE Hiatal hernia with gastroesophageal reflux. Shortened Esophagus ? Anesthesia: General endotracheal anesthesia. ? Document Control Coordinator: resident ? Findings: Hiatal hernia. ? Complications: None. ? Specimens: None. ? Estimated Blood Loss: 10 mL. ? Special Medications: See anesthesia ? Indications: The patient is a 50 y.o. year old female a hiatal hernia and symptomatic reflux. ? Description of Procedure: After explaining the risks, benefits, and alternatives of the procedure to the patient, she agreed to undergo the above procedure. The patient was brought to the operating room and placed supine on the operative table. General endotracheal anesthesia was induced by the anesthesia team. The patient was placed in the split leg position and SCIP criteria was adhered to. Time-out was performed and sponge, needle, and instrument counts were correct at the end of the case. We made an incision in the left upper quadrant and entered the abdomen with a Veress needle without difficulty and we then proceeded with placing a 12-mm trocar in the left upper quadrant, a 5-mm trocar in the right upper quadrant, a 5 mm in the mid abdomen, 5 in the left lateral abdomen and a Radha Liver retractor in sub xiphoid position. We then proceeded with dissection of the pars flaccida of the right erika. The patient was noted to have a very large crural opening with 1/3 of stomach herniated into the chest with twisting of the stomach. We began circumferentially mobilizing the tissues around the esophagus. We continued our dissection cephalad and around the left Erika. We dissected in the inferior mediastinum in a circumferential fashion around the esophagus. Both vagus nerves were identified and preserved. We then worked on the retroesophageal window and identified the left erika, the right erika, and the aorta. We then mobilized the shortgastrics up towards the left erika. The patient had a very large hernia sack which was carefully dissected from the mediastinal structures. This allowed the stomach to be mobilized and reduced from the chest but this part of the dissection added 60 minutes to the procedure. We then passed a grasper through retroesophageal window to pass the Lidia. We then placed Surgidac stitches to re-approximate the diaphragmatic crura after a few cm of esophagus was mobilized into the abdominal cavity. We then passed a 50-Yoruba lighted bougie down the esophagus to the stomach and then we placed one more Surgidac suture to reapproximate the erika. We were able to pass an instrument in between the esophagus and the erika with the 50-Yoruba lighted bougie in place. As we mobilized these structures we noted that the esophagus had a tendency to recoil into the chest, therefore elected to perform a Sidra gastroplasty using combination of green and blue staple loads. This allowed the GE junction to now sit without tension in the abdominal cavity. We then secured Lamona bioa mesh tot he diaphragm with Endouniversal tacks. We then performed the fundoplication making sure to take only fundus with shoe-shine maneuver. We placed 3 stitches to complete the fundoplication. We had 4 cm of intra-abdominal esophagus. We then performed an upper endosocpy - the wrap was seen going around the intra-abdominal esophagus without twisting of the stomach. We also placed a 19F Arvin drain into the large mediastinal cavity to prevent fluid collection and pleural effusion. This was brought out through right sided port and secured to the skin with 3-0 silk. We then deflated the abdomen and desufflated the stomach and removed the esophagogastroduodenoscope. We then closed the 12-mm trocar with an 0 Vicryl stitch on a suture passer. We then desufflated the abdomen completely and closed all the trocars with 4-0 Monocryl suture. We then cleaned and dried the abdomen and placed Steri-Strips over top of the incisions. The patient was extubated and taken to recovery in stable condition. There were no complications. [facility] 01-18-2021 Hospital Discharge instructions* Discharge Instr - Diet* Liliana Martinez MD - 01/18/2021 11:08 AM EDT Good nutrition is important when healing from an illness, injury, or surgery. Follow any nutrition recommendations given to you during your hospital stay. If you were given an oral nutrition supplement while in the hospital, continue to take this supplement at home. You can take it with meals, in-between meals, and/or before bedtime. These supplements can be purchased at most local grocery stores, pharmacies, and [employer]-stores. If you have any questions about your diet or nutrition, call the hospital and ask for the dietitian. Avoid carbonation, straws, gum chewing, and smoking. These activities introduce air into your stomach and cause bloating and discomfort. Simethicone (gas-x) may ease gas pain and can be purchased over the counter without a prescription. Day 1 after your surgery begin a clear liquid diet. It includes the following liquids: Apple juice Cranberry juice Grape juice Chicken broth Beef broth Flavored gelatin (Jell-O ) Decaf tea and coffee Caffeinated beverages are permitted based on tolerance [facility] ice Day 2 and Day 3 after your surgery advance diet to full liquid diet which includes anything on the clear liquid diet, plus: Milk, soy, rice and almond (no chocolate) Cream of wheat, cream of rice, grits Strained creamed soups (no tomato or broccoli) Vanilla and strawberry-flavored ice cream Sherbet Blended, custard styled or whipped yogurt (plain or vanilla only) Vanilla and butterscotch pudding (no chocolate or coconut) Nutritional drinks including Ensure , Boost , [place] Instant Breakfast (no chocolate-flavored) Mashed potatoes On Day 4 after your surgery you may start a soft diet and continue this diet until you follow up inthe office in one to two weeks. A list of food items is below. Food Category Foods to Choose Foods to Avoid Beverages Milk, such as, whole, 2%, 1%, non-fat, or skim, soy, rice, almond Caffeinated and decaf tea and coffee Powdered drink mixes (in moderation) Non-citrus juices (apple, grape, cranberry or blends of these) Fruit nectars Nutritional drinks including Boost , Ensure , [place] Instant Breakfast Chocolate milk, cocoa or other chocolate-flavored drinks Carbonated drinks Alcohol [place] juices like orange, grapefruit, lemon and [place] Breads Pancakes, Yoruba toast and waffles Crackers (saltine, butter, soda, geoff, Goldfish and Cheese Nips ) Toasted bread Untoasted bread, bagels, [place] and hard rolls, Swedish muffins Crackers with nuts, seeds, fresh or dried fruit, coconut, or highly seasoned, such as garlic or onion-flavored Sweet rolls, coffee cake or doughnuts Cereals Well cooked cereals, such as oatmeal (plain or flavored) Cold cereal (Cornflakes , Rice Krispies , Cheerios , Special K plain, Rice Chex and puffed rice) Very coarse cereal, such as bran, shredded wheat Any cereal with fresh or dried fruit, coconut, seeds or nuts Desserts Eat in moderation and do not eat desserts or sweets by themselves. Plain cakes, cookies and cream-filled pies Vanilla and butterscotch pudding or custard Ice cream, ice milk, frozen yogurt and sherbet Gelatin made from allowed foods Fruit ices and popsicles Desserts containing chocolate, coconut, nuts, seeds, fresh or dried fruit,peppermint or spearmint Eggs Poached, hard boiled or scrambled Fried eggs and highly seasoned eggs (deviled eggs) Fats Eat in moderation. Butter and margarine Mayonnaise and vegetable oils Mildly seasoned cream sauces and gravies Plain cream cheese Sour cream Highly seasoned salad dressings, cream sauces and gravies Le, le fat, ham fat, lard and salt pork Fried foods Nuts Fruits Fruit juice Any canned or cooked fruit except those listed in the AVOID column ALL fresh fruits, such as citrus, bananas and pineapple Canned pineapple Dried fruits, such as raisins, berries Fruits with seeds, such as berries, kiwi and figs Meat, Fish, Poultry, and Dairy Products Meats may be ground, minced or chopped to ease swallowing and digestion Tender, well cooked and moist cuts of beef, chicken, turkey and pork Veal and triana Flaky, cooked fish Canned tuna Cottage and ricotta cheeses Mild cheese, such as [place]yan, brick, mozzarella and baby [place] Creamy peanut butter Plain custard or blended fruit yogurt Moist casseroles, such as macaroni & cheese, tuna noodle Grilled or toasted cheese sandwich Tough meats with a lot of gristle Fried, highly seasoned, smoked and fatty meat, fish or poultry, such as frankfurters, luncheon meats, sausage, le, spare ribs, beef brisket, sardines, anchovies, duck and goose [place] and other entrees made with pepper or chili pepper Shellfish Strongly flavored cheeses, such as sharp cheese, extra sharp cheddar, cheese containing peppers or other seasonings Crunchy peanut butter Any yogurt with nuts, seeds, coconut, strawberries or raspberries Potatoes and Starches Peeled, mashed or boiled white or sweet potatoes Oven-baked potatoes without skin Well cooked white rice, enriched noodles, barley, spaghetti, macaroni and other pastas Fried potatoes, potato skins and potato chips Hard and soft taco shells Fried, brown or wild rice Soups Mildly flavored meat stocks Cream soups made from allowed foods Highly seasoned soups and tomato based soups, cream soups made with gas producing vegetables, such as broccoli, cauliflower, onion, etc. Sweets and Snacks Use in moderation and do not eat large amounts of sweets by themselves. Syrup, honey, jelly and seedless jam Plain hard candies and plain candies made with allowed ingredients Molasses Marshmallows Other candy made from allowed ingredients Thin pretzels Jam, marmalade and preserves Chocolate in any form Any candy containing nuts, coconut, seeds, peppermint, spearmint or dried or fresh fruit Popcorn, potato chips, tortilla chips Soft or hard thick pretzels, such as sourdough Vegetables Well cooked soft vegetables without seeds or skins, such as asparagus tips, beets, carrots, green and wax beans, chopped spinach, tender canned baby peas, squash and pumpkin Raw vegetables, tomatoes, tomato juice, tomato sauce and V-8 juice Gas producing vegetables, such as broccoli, Brussel sprouts, cabbage, cauliflower, onions, corn, cucumber, green peppers, rutabagas, turnips, radishes and sauerkraut Dried beans, peas and lentils Miscellaneous Salt and spices in moderation Mustard and vinegar in moderation Fried or highly seasoned foods Coconut and seeds Pickles and olives [place] sauces, ketchup, barbecue sauce, horseradish, black pepper, chili powder and onion and garlicseasonings Any other strongly flavored seasoning, condiment, spice or herb not tolerated Any food not tolerated * Additional Instructions* Ondina Do DO - 01/18/2021 Images from the original note were not included. DISCHARGE INSTRUCTIONS Thank you very much for allowing me to participate in your care, it is truly a privilege. Below please see discharge orders that will help you during your recovery. Please do not hesitate to call theoffice during the day at [phone] for any questions. After hours, the same number will allow you to reach the on-call surgeon. Leave steri strips in place after surgery. Any clear bandages and gauze placed in the navel, if applicable, can be removed in 5 days. If you have been provided with an abdominal binder, this is for your comfort. Please take this off in order to shower and use it as needed for your comfort. There is no designated time frame with which you should wear the binder. Do not lift anything that is 15-20 pounds or greater for 2 weeks from the date of your surgery. This is to prevent herniation at your incision sites. Activity restrictions will be addressed at the first post op visit. Please shower the day after surgery. Soap and water is adequate. Keep the incisions clean and dry. No lotions or ointments until you are seen in the office. Do not swim in a pool, go in a hot tub, orsoak in a bathtub for the first week after your surgery. Surgery can hurt! Please make every effort to take the pain medicine as instructed to help reduce your discomfort. I usually recommend that you take pain medicine when you wake up in the morning and before you go to sleep. Schedule the rest of the day in order to not interfere with medication dosages as prescribed. If you feel that the medicine is not working, please call the office. Make sure to take a stool softner such as Colace or Milk of Magnesia while you are taking pain medication. If you do not have a bowel movement within 2-3 days, switch to daily Miralax. If still no result - call the office. Should you have nausea after surgery you may have been prescribed nausea medication. Try taking themedicine and if you feel that the medicine is not working, please call the office. Should you be unable to urinate after ~12 hours after surgery - especially a inguinal hernia repair- please call the office or the answering line for instructions. For any emergencies, please dial 911. Thank you again for allowing me to participate in your care, and get well soon! Sincerely, Dr. Sumeet Street Good nutrition is important when healing from an illness, injury, or surgery. Follow any nutrition recommendations given to you during your hospital stay. If you were given an oral nutrition supplement while in the hospital, continue to take this supplement at home. You can take it with meals, in-between meals, and/or before bedtime. These supplements can be purchased at most local grocery stores, pharmacies, and chain [employer]-stores. If you have any questions about your diet or nutrition, call the hospital and ask for the dietitian. Avoid carbonation, straws, gum chewing, and smoking. These activities introduce air into your stomach and cause bloating and discomfort. Simethicone (gas-x) may ease gas pain and can be purchased over the counter without a prescription. Day 1 after your surgery begin a clear liquid diet. It includes the following liquids: Apple juice Cranberry juice Grape juice Chicken broth Beef broth Flavored gelatin (Jell-O ) Decaf tea and coffee Caffeinated beverages are permitted based on tolerance Popsicles Austrian ice Day 2 after your surgery advance diet to full liquid diet which includes anything on the clear liquid diet, plus: Milk, soy, rice and almond (no chocolate) Cream of wheat, cream of rice, grits Strained creamed soups (no tomato or broccoli) Vanilla and strawberry-flavored ice cream Sherbet Blended, custard styled or whipped yogurt (plain or vanilla only) Vanilla and butterscotch pudding (no chocolate or coconut) Nutritional drinks including Ensure , Boost , [place] Instant Breakfast (no chocolate-flavored) On day 3 after your surgery you may start a soft diet and continue this diet until you follow up inthe office in one to two weeks. A list of food items is below. Food Category Foods to Choose Foods to Avoid Beverages Milk, such as, whole, 2%, 1%, non-fat, or skim, soy, rice, almond Caffeinated and decaf tea and coffee Powdered drink mixes (in moderation) Non-citrus juices (apple, grape, cranberry or blends of these) Fruit nectars Nutritional drinks including Boost , Ensure , [place] Instant Breakfast Chocolate milk, cocoa or other chocolate-flavored drinks Carbonated drinks Alcohol [place] juices like orange, grapefruit, lemon and [place] Breads Pancakes, Yoruba toast and waffles Crackers (saltine, butter, soda, geoff, Goldfish and Cheese Nips ) Toasted bread Untoasted bread, bagels, [place] and hard rolls, Swedish muffins Crackers with nuts, seeds, fresh or dried fruit, coconut, or highly seasoned, such as garlic or onion-flavored Sweet rolls, coffee cake or doughnuts Cereals Well cooked cereals, such as oatmeal (plain or flavored) Cold cereal (Cornflakes , Rice Krispies , Cheerios , Special K plain, Rice Chex and puffed rice) Very coarse cereal, such as bran, shredded wheat Any cereal with fresh or dried fruit, coconut, seeds or nuts Desserts Eat in moderation and do not eat desserts or sweets by themselves. Plain cakes, cookies and cream-filled pies Vanilla and butterscotch pudding or custard Ice cream, ice milk, frozen yogurt and sherbet Gelatin made from allowed foods Fruit ices and popsicles Desserts containing chocolate, coconut, nuts, seeds, fresh or dried fruit,peppermint or spearmint Eggs Poached, hard boiled or scrambled Fried eggs and highly seasoned eggs (deviled eggs) Fats Eat in moderation. Butter and margarine Mayonnaise and vegetable oils Mildly seasoned cream sauces and gravies Plain cream cheese Sour cream Highly seasoned salad dressings, cream sauces and gravies Le, le fat, ham fat, lard and salt pork Fried foods Nuts Fruits Fruit juice Any canned or cooked fruit except those listed in the AVOID column ALL fresh fruits, such as citrus, bananas and pineapple Canned pineapple Dried fruits, such as raisins, berries Fruits with seeds, such as berries, kiwi and figs Meat, Fish, Poultry, and Dairy Products Meats may be ground, minced or chopped to ease swallowing and digestion Tender, well cooked and moist cuts of beef, chicken, turkey and pork Veal and triana Flaky, cooked fish Canned tuna Cottage and ricotta cheeses Mild cheese, such as [place], brick, mozzarella and baby [place] Creamy peanut butter Plain custard or blended fruit yogurt Moist casseroles, such as macaroni & cheese, tuna noodle Grilled or toasted cheese sandwich Tough meats with a lot of gristle Fried, highly seasoned, smoked and fatty meat, fish or poultry, such as frankfurters, luncheon meats, sausage, le, spare ribs, beef brisket, sardines, anchovies, duck and goose [place] and other entrees made with pepper or chili pepper Shellfish Strongly flavored cheeses, such as sharp cheese, extra sharp cheddar, cheese containing peppers or other seasonings Crunchy peanut butter Any yogurt with nuts, seeds, coconut, strawberries or raspberries Potatoes and Starches Peeled, mashed or boiled white or sweet potatoes Oven-baked potatoes without skin Well cooked white rice, enriched noodles, barley, spaghetti, macaroni and other pastas Fried potatoes, potato skins and potato chips Hard and soft taco shells Fried, brown or wild rice Soups Mildly flavored meat stocks Cream soups made from allowed foods Highly seasoned soups and tomato based soups, cream soups made with gas producing vegetables, such as broccoli, cauliflower, onion, etc. Sweets and Snacks Use in moderation and do not eat large amounts of sweets by themselves. Syrup, honey, jelly and seedless jam Plain hard candies and plain candies made with allowed ingredients Molasses Marshmallows Other candy made from allowed ingredients Thin pretzels Jam, marmalade and preserves Chocolate in any form Any candy containing nuts, coconut, seeds, peppermint, spearmint or dried or fresh fruit Popcorn, potato chips, tortilla chips Soft or hard thick pretzels, such as sourdough Vegetables Well cooked soft vegetables without seeds or skins, such as asparagus tips, beets, carrots, green and wax beans, chopped spinach, tender canned baby peas, squash and pumpkin Raw vegetables, tomatoes, tomato juice, tomato sauce and V-8 juice Gas producing vegetables, such as broccoli, Brussel sprouts, cabbage, cauliflower, onions, corn, cucumber, green peppers, rutabagas, turnips, radishes and sauerkraut Dried beans, peas and lentils Miscellaneous Salt and spices in moderation Mustard and vinegar in moderation Fried or highly seasoned foods Coconut and seeds Pickles and olives [place] sauces, ketchup, barbecue sauce, horseradish, black pepper, chili powder and onion and garlicseasonings Any other strongly flavored seasoning, condiment, spice or herb not tolerated Any food not tolerated documented in this [facility] Work Phone: [phone] Hospital Discharge instructions* Instructions* Sun Schmitz, RN - 01/11/2021 Please shower with an antibacterial soap( example DIAL OR SAFEGUARD) Please bring your [facility] Surgical Information folder on the day of surgery. Please sumeet the last dose taken (date and time ) on your Daily Medications List provided in your After Visit Summary. Please bring a photo ID and insurance information Do NOT take the following medications on the morning of surgery-lisinopril hydrochlorothiazide. TAKE the following medications the morning of your surgery-albuterol nebulizer, trelegy ellipta inhaler, flecainide, metoprolol, synthroid, singulair, nexium You may take your prescription pain medications. You may take Tylenol (Acetaminophen) if needed forpain. No Motrin, Ibuprofen, or Advil 24 hours prior to surgery, or longer if instructed by your surgeon. No Aleve or Naprosyn 3 days prior to surgery, or longer if instructed by your surgeon. If you are on BLOOD THINNERS or ASPIRIN, follow rig builder helper's instructions with regard to eliquis use preop. Follow all instructions given to you by Dr. Street. You will receive a reminder call the day before surgery with your Same Day Surgery arrival time. If you have specific questions, please call your surgeon. * Attachments The following attachments cannot be sent through Care Everywhere. * Roddy Fundoplication: Pre-op (Swedish) * Roddy Fundoplication: Post-op (Swedish) * EGD (Upper Endoscopy): Post-op (Swedish) * EGD (Upper Endoscopy): Pre-op (Swedish) documented in this encounter[facility] Work Phone: [phone] 442-390401-05-2021 History of Present illness Narrative* Neha Solitario (Rt), Anand - 09/05/2020 5:00 PM EST Radiology Service Progress Note PATIENT NAME: Dee Shepherd DATE OF SERVICE: September 05, 2020 TIME: 5:06 PM PATIENT IDENTITY VERIFICATION COMPLETED USING TWO (2) IDENTIFIERS: Name and Date of confirmedby patient verbally. FALL SCREENING: Has the patient had 2 falls in the last year or 1 fall with injury or currently using an Ambulatory Assistive Device (Walker, Cane, Wheelchair, Crutches, etc.)? No PATIENT GENDER DATA: Female. status: : No status: NO. PATIENT RELEVANT IMPLANT DATA REVIEWED: Not Applicable RADIOLOGY DEPARTMENT: General X-ray: Exam(s) Completed: Upper Extremity X- Ray(s): Hand, left : PERIPHERAL IV DATA: Not applicable SIGNED BY: RT Chavo September 05, 2020 5:06 PM [facility] NoteDischarge Summary Dee Shepherd : 1970 Admit date: 08/01/2020 Discharge date: 08/04/2020 Admitting Physician: Magali Andres MD Primary Care Physician: SARAI WATKINS MD Code Status: Full Code Discharged Condition: Stable Activity: activity as tolerated Diet: DIET GENERAL; Discharge Diagnoses: Active Problems: Hiatal hernia Intractable abdominal pain ETOH abuse HTN (hypertension) HLD (hyperlipidemia) FADY (obstructive sleep apnea) Hypomagnesemia Resolved Problems: * No resolved hospital problems. * Hospital Course: 49 y.o. female who presents to [place] ER with chief complaint of RUQ abdominal pain and distention. Pain has been constant since Friday. Rated as 8/10 and described as aching and uncomfortable. Denies any aggravating or alleviating factors. States it does not appear to be related to food/fluid intake. Denies any fevers, nausea or vomiting/diarrhea. Denies any CP, cough, SOB, Hematuria, urinary symptoms, hematochezia or hemoptysis. No history of abdominal surgeries. She does report history of ETOH use and drinks half a bottle of whiskey most days. Denies history of DVT/PE. Home O2 eval: ? SpO2 at rest on RA = 84% HR at rest = 96 ? ? Distance Walked = 50ft ? ? Recovery SpO2 with lpm with ambulation (if needed) = 94% w/ 4 L O2 ? Qualify for home O2 Y/N = Yes ? Patient mobile at home Y/N = Yes Patient states she has a hx of pulmonary hypertension and follows with a supervisor dog license officer in [place]. She states she saw him last week. She will follow up with him in 2 weeks. She states she has had issues with her pulse ox and PHTN for the last 3 years and is followed closely. ? Magnesium replaced: repeat level 2.3 General Surgery Consult: Plan U/s and ct negative for acute process Has hh, no need for urgent surgery at this time. Will check hida. If negative po challenge and if ok she can be discharged from a surgery s/p ? I saw and evaluated the patient on 08/02/20 I agree with the findings and plan of care as documented in the resident/fellow's note. ? Follow up note ASSESSMENT AND PLAN: 49 y.o. female s/p lap charly and liver biopsy 08/03 ? - Doing well post op - OK for dc from surgery standpoint - Follow up with Dr. Street as an outpatient in 2 weeks - Liver biopsy result pending - D/w Dr. Street Cardiothoracic Surgery consult: Subacute presentation of what appears to be incarcerated omentum in hiatal hernia. Fluid collection secondary to incarceration. + epigastric pain, abdominal discomfort R>L. ? Mediastinal fluid collection is contained in the hiatal hernia sac, appears to abut the esophagus, no odynophagia, no air in fluid collection, no contrast extravasation of CT scan, no clinical history to suggest esophageal pathology. Low likelihood of being an esophageal perforation. ? Management per general surgery team. If thoracic surgery needed, please do not hesitate to notify me. ? Beatriz Pink MD Cardiothoracic Surgery Addictive medicine Consult Assessment/Plan: Alcohol use disorder severe with withdrawal Day # 5 of no use Evaluated the patient CIWA score and is low, continue medications, adjust per symptoms/signs ? ? Remaining medical management per primary team. ? Will sign off. She can be discharged from detox standpoint. She is from [place] and I left information for [facility] IOP at [facility] in her discharge instruction that she can follow up with them. Discharge Medications: Dee Shepherd Home Medication Instructions REED:[id number] Printed on:08/04/20 1563 Medication Information bumetanide (BUMEX) 0.5 MG tablet Take 0.5 mg by mouth daily Cholecalciferol (VITAMIN D3 PO) Take 4,000 Units by mouth daily diphenhydrAMINE (BENADRYL ALLERGY) 25 MG capsule Take 50 mg by mouth 2 times daily Esomeprazole Magnesium (NEXIUM PO) Take 40 mg by mouth daily folic acid (FOLVITE) 1 MG tablet Take 1 mg by mouth daily metoprolol succinate (TOPROL XL) 50 MG extended release tablet Take 50 mg by mouth daily montelukast (SINGULAIR) 10 MG tablet Take 10 mg by mouth nightly ondansetron (ZOFRAN) 4 MG tablet Take 1 tablet by mouth daily as needed for Nausea or Vomiting oxyCODONE-acetaminophen (PERCOCET) 5-325 MG per tablet Take 1 tablet by mouth every 6 hours as needed for Pain for up to 7 days. Intended supply: 7 days. Take lowest dose possible to manage pain rosuvastatin (CRESTOR) 10 MG tablet Take 10 mg by mouth daily sildenafil (VIAGRA) 25 MG tablet Take 25 mg by mouth 3 times daily Consults: IP CONSULT TO SOCIAL WORK IP CONSULT TO SOCIAL WORK IP CONSULT TO ADDICTION MEDICINE Significant Diagnostic Studies: Results for DEE SHEPHERD ( ) as of 08/04/2020 11:27 Ref. Range 08/04/2020 06:31 Sodium Latest Ref Range: 135 - 145 mmol/L 135 Potassium Latest Ref Range: 3.5 - 5.1 mmol/L 4.7 Chloride Latest Ref Range: 98 - 107 mmol/L 100 CO2 Lat (more content not included)...[facility]12-03-2020 Note OPERATIVE NOTE DATE OF PROCEDURE: 08/03/2020 SURGEON: Sumeet Street DO WAX BALL MOLDER: Chacho Lamb MD pgy4 Liz Fagan MD pgy2 Toya Hull MD pgy1 PREOPERATIVE DIAGNOSIS: Acute on chronic cholecystitis, etoh liver disease, incarcerated ventral hernia POSTOPERATIVE DIAGNOSIS: Same OPERATION: Laparoscopic cholecystectomy, Laparoscopic liver wedge biopsy Laparoscopic incarcerated ventral hernia repair with suture ANESTHESIA: General anesthesia ESTIMATED BLOOD LOSS: less than 50 COMPLICATIONS: None SPECIMENS: Gallbladder, liver biopsy PREOPERATIVE MEDICATIONS: See chart HISTORY: The patient is a 49 y.o. year old female with history of above preop diagnosis including chronic cholecystitis, umbilical hernia diagnosed prior to surgery, and alcoholic liver disease. I explained the risk, benefits, expected outcome, and alternatives to the procedure. Patient understands and is in agreement to proceed with operation. PROCEDURE: The patient was brought to the operating room and placed in supine position. After initiation of general anesthesia by the Anesthesia Department, the abdomen was prepped and draped normal sterile fashion. A time-out was performed verifying correct patient, procedure, allergies, perioperative medications, and need for special equipment. A Veress needle was placed in the left upper quadrant and insufflated without difficulty. We placed three 5mm laparoscopic trochars, one in the left upper quadrant, 2 in the right upper quadrant. We identified an omentum containing umbilical hernia. The omentum was retracted out of the hernia. We then placed a 12mm port at the umbilicus through the hernia defect. We then inspected the right upper quadrant, the gallbladder was identified, grasped, and retracted cephalad. The transverse colon and omentum were lying close to the gallbladder infundibulum so an additional 5mm trochar was placed in the left mid-abdomen for downward retraction of the omentum. The peritoneum overlying the junction of the cystic duct was stripped free. Hook electrocautery was used to detach the lateral peritoneal attachments, the left and right side of the gallbladder up towards the fundus. We isolated the cystic duct and cystic artery and dissected the posterior aspect of the gallbladder from the gallbladder fossa. There were only 2 structures noted, the cystic duct and the cystic artery. We placed 3 Hemolock clips on the stay side of the cystic duct and 1 clip on the gallbladder side and the cystic duct was divided. We placed 2 clips on the stay side of the cystic artery and the cystic artery was divided above the clips with hook electrocautery. Hook electrocautery was used to remove the gallbladder from the gallbladder fossa. Prior to amputating the gallbladder, we again re-evaluated our clip structures, there was no evidence of bleeding or bilious extravasation. The gallbladder was amputated and removed using a wound protection device. We then inspected the liver which appeared firm. A liver wedge biopsy was obtained using laparoscopic scissors, hemostasis at the biopsy site was achieved with electrocautery. A snake liver retractor was then carefully inserted and the left lobe of the liver retracted anteriorly exposing the proximal stomach and hiatus. A large hiatal hernia was identified containing stomach and omentum. The herniated stomach was partially reduced and inspected. The stomach appeared pink, healthy, and without evidence of ischemia. Next, a single suture of 0 Vicryl and 3 sutures of #1 Nurolon were used via suture passer to close the fascia at the umbilical hernia (3 cm) as a primary hernia repair- this was identified pre operatively. The skin was closed using 4-0 Monocryl. At the completion of the case, the final instrument, needle, and sponge counts were correct. The patient tolerated the procedure well, was extubated, and sent to the recovery room in stable condition. Attending physician, Dr. Street, was present for the entirety of the operation. [facility] 08-23-2015 History of Past illness Narrative* Problem Noted Date Resolved Date Reflux esophagitis 08/23/2015 08/23/2015 documented as of this encounter (statuses as of 10/17/2022) [facility]12-[facility] History of Past illness Narrative* Problem Noted Date Resolved Date Reflux esophagitis 08/23/2015 08/23/2015 documented as of this encounter (statuses as of 11/01/2022) [facility] History of Past illness Narrative* Problem Noted Date Resolved Date Reflux esophagitis 08/23/2015 08/23/2015 documented as of this encounter (statuses as of 11/09/2022) [facility] of Past illness Narrative* Problem Noted Date Resolved Date Reflux esophagitis 08/23/2015 08/23/2015 documented as of this encounter (statuses as of 12/20/2022) [facility] of Past illness Narrative* Problem Noted Date Resolved Date Reflux esophagitis 08/23/2015 08/23/2015 documented as of this encounter (statuses as of 01/03/2023) [place] [id number] History of Past illness Narrative* Problem Noted Date Resolved Date Reflux esophagitis 08/23/2015 08/23/2015 documented as of this encounter (statuses as of 02/13/2023) [facility] of Past illness Narrative* Problem Noted Date Diagnosed Date Resolved Date Reflux esophagitis 08/23/2015 5 documented as of this encounter (statuses as of 07/06/2023) [place] [address]-23-2015 History of Past illness Narrative* Problem Noted Date Diagnosed Date Resolved Date Reflux esophagitis 08/23/2015 5 documented as of this encounter (statuses as of 12/10/2023) [facility] summary Author Rose Marie Baker [facility] June 26, 2023 4:20pm Note Date/Time June 26, 2023 4 :13pm [facility] Medical Records Department [address] [place] [address] Instructions for Home/Discharge Instructions 06/26/23 1612 MR#: [id number] Acct: [id number] Name: DEE SHEPHERD Rep #:[id number] : 1970 52 From: Rose Marie Baker MD PCP: Dr. Sarai Watkins MD Status:ADM I N Discharge Instructions Diet Discharge Diet: - (-DASH diet, 3000 mg sodium restriction, 2 L fluid restriction) Activity Discharge Activity: - (Ambulate with 2 L O2) Follow Up Care Test Results: Test results from this visit will be discussed in further detail at your follow- up appointment, if applicable. Discharge Plan Admission Admit Date/Time: 06/24/23 21:01 Primary Reason for Your Visit: Shortness of breath Attending Provider: Rose Marie Baker Primary Care Provider: Sarai Watkins Consulting Providers: Hung Vinson Instructions Patient Instructions: Asthma and COPD Additional Instructions / Restrictions: DISCHARGE INSTRUCTIONS PLEASE READ *Please take this with you to your next doctors appointment* -You will be discharged on Augmentin 875 mg twice daily for another 5 days -Please follow-up with your lung and heart doctors upon discharge -You will be discharged on a prednisone taper: -60 mg daily x3 days -50mg daily x3 days -40mg daily x3 days -30mg daily x3 days -20mg daily x3 days -10mg daily x3 days -Weigh yourself every day. A sudden weight gain can mean you are retaining fluid. Weigh yourself at the same time of day and in the same kind of clothes. Ideally, weigh yourself first thing in the morning after you empty your bladder,but before you eat breakfast. -Please call your physician if your weight goes up by more than 2 pounds in 1 day or 5 pounds in 1 week. This can be a sign that you are retaining more fluid than you should be. Clues to weight gain include checking your ankles for swelling, or noticing you are short of breath when you lie down -Please limit your sodium intake to less than 3 g/day. Here are tips: Limit canned, dried, packaged, and fast foods. Don't add salt to your food at the table. Season foods with herbs instead of salt when you cook. When you eat out, ask that the wheel truer not add any salt to your dish. Don't eat fried or greasy foods. Be careful of bottled beverages. They can contain a lot of salt -Call 911 right away if you have: -Severe shortness of breath, such that you can't catch your breath even while resting -Severe chest pain that does not resolve with rest or nitroglycerin -[place], foamy mucus with cough and shortness of breath -An ongoing rapid or irregular heartbeat -Passing out or fainting -Stroke symptoms such as sudden numbness or weakness on one side of your face, arm, or leg or sudden confusion, trouble speaking or vision changes - It is strongly advised that you refrain from any further alcohol use. Please call [facility] located at [address] [place] [address] (ph [phone]) ifyou are interested in further resources -Please call your primary care provider's office upon discharge to schedule a hospital follow up within 1 week. -For any concerning signs or symptoms please call 911 or proceed to the nearest emergency department Discharge Orders/Prescriptions Prescriptions: New prednisone 20 mg Tablet See Taper PO BREAKFAST Qty: 32 0RF Taper: Prednisone Taper 60 mg WITH BREAKFAST for 3 Days and 0 Hour 50 mg WITH BREAKFAST for 3 Days and 0 Hour 40 mg WITH BREAKFAST for 3 Days and 0 Hour 30 mg WITH BREAKFAST for 3 Days and 0 Hour 20 mg WITH BREAKFAST for 3 Days and 0 Hour 10 mg WITH BREAKFAST for 3 Days and 0 Hour amoxicillin-pot clavulanate 875-125 mg tablet 1 tab PO BID 5 Days Qty: 10 0RF Continued rosuvastatin [Crestor] 5 mg tablet 10 mg PO DAILY sildenafil (pulm.hypertension) 20 mg tablet 20 mg PO TID pantoprazole 40 mg tablet,delayed release (DR/EC) 40 mg PO QAM Qty: 30 12RF Jardiance 10 mg tablet 10 mg PO DAILY Qty: 90 3RF metoprolol tartrate 25 mg tablet 25 mg PO Q12 Qty: 180 3RF flecainide 100 mg tablet 50 mg PO BID Qty: 60 11RF hydroxychloroquine [Plaquenil] 200 mg tablet 400 mg PO DAILY Qty: 1 0RF acetaminophen 500 MG tablet 1,000 mg PO DAILY PRN PRN (Reason: Pain 1-10 Or Fever) folic acid 1 MG tablet 1 mg PO DAILY cholecalciferol (vitamin D3) 10 MCG capsule 4,000 unit PO DAILY Trelegy Ellipta 100-62.5-25 mcg blister with device 1 inh INHALATION DAILY Patient Comments: INHALE 1 (ONE) PUFF FOLLOWED BY GOOD ORAL CARe trazodone 100 mg Tablet 100 mg PO QHS PRN PRN (Reason: Insomnia) 14 Days Qty: 14 0RF bupropion HCl 300 mg tablet extended release 24 hr 300 mg PO DAILY vitamin E mixed 1,000 unit capsule 400 unit PO DAILY albuterol sulfate 90 mcg/actuation aerosol powdr breath activated 2 inh inhalation Q4H PRN (Reason: shortness of breath) ursodiol 300 mg capsule 300 mg PO BID Qty: 180 3RF Eliquis 5 mg tablet 5 mg PO BID Qty: 60 11RF Changed furosemide 40 mg tablet 40 mg PO DAILY PRN (Reason: weight gain) Qty: 30 0RF Patient Comments: for ankle swelling. pt has pills from old script and takes on occasion Discontinued celecoxib [Celebrex] 100 mg capsule 100 mg PO DAILY Hold Instructions: MANJINDER amlodipine [Norvasc] 5 mg tablet 5 mg PO DAILY Qty: 30 11RF Referrals / Follow Up: Sarai Watkins MD [Primary Care Provider] - 07/09/23 9:30 am Disposition Disposition (needs filled in before D/C Order can be placed): Home, Self Care 06/26/23 1620<Electronically signed by Rose Marie Baker MD>Rose Marie Baker MD CC: Dr. Hung Vinson MD; Dr. Sarai Watkins MD ~ Signed [facility] Work Phone: Discharge summary Author Rose Marie Baker [facility] June 26, 2023 4:21pm Note Date/Time June 26, 2023 4 :19pm [facility] Medical Records Department [address] [place] [address] [place] [address] Discharge Summary 06/26/23 1613 MR#: [id number] Acct: [id number] Name: DEE SHEPHERD Rep #:[id number] : 1970 52 From: Rose Marie Baker MD PCP: Dr. Sarai Watkins MD Status:ADM I N Location: [place] [address] Providers Date of Admission: 06/24/23 Date of Discharge: 06/26/23 Primary Care Physician: Dr. Sarai Watkins MD Reason For Visit: WORSENING RESPIRATORY FAILURE WITH HYPOXIA Diagnosis Discharge Diagnosis (1) Non-ischemic cardiomyopathy: Status: Acute Code(s): I42.8 - Other cardiomyopathies (2) HFrEF (heart failure with reduced ejection fraction): Status: Acute Code(s): I50.20 - Unspecified systolic (congestive) heart failure (3) Atypical pneumonia: Status: Acute Code(s): J18.9 - Pneumonia, unspecified organism (4) Hypoxemia: Status: Acute Code(s): R09.02 - Hypoxemia (5) HTN (hypertension), benign: Status: Acute Code(s): I10 - Essential (primary) hypertension (6) Morbid obesity with BMI of 40.0-44.9, adult: Status: Chronic Code(s): E66.01 - Morbid (severe) obesity due to excess calories; Z68.41 - Body mass index [BMI] 40.0-44.9, adult Plan #Hypoxia 2/2 atypical pneumonia and COPD exacerbation w/ hemoptysis #FADY/chronic respiratory failure #hx non ischemic cardiomyopathy/pulmonary hypertension #Alcohol use disorder #hx ckd stage IIIa #afib and history of PE 2015 #Hypertension Medications at Discharge Home Medications rosuvastatin 5 mg tablet (Crestor) 10 mg PO DAILY cholesterol 06/18/19 acetaminophen 500 mg tablet 1,000 mg PO DAILY PRN PRN Pain 1-10 Or Fever 08/01/20 cholecalciferol (vitamin D3) 10 mcg (400 unit) capsule 4,000 unit PO DAILY supplement 08/01/20 folic acid 1 mg tablet 1 mg PO DAILY supplement 08/01/20 sildenafil (pulm.hypertension) 20 mg tablet 20 mg PO TID pulmonary HTN 05/01/21 fluticasone fur. 100 mcg-umeclid 62.5 mcg-vilant 25 mcg inhalat.powder (Trelegy Ellipta) 1 inh inhalation DAILY COPD 01/20/22 trazodone 100 mg tablet 100 mg PO QHS PRN PRN Insomnia 14 days #14 tabs 01/24/22 bupropion HCl 300 mg 24 hr tablet, extended release 300 mg PO DAILY mood 05/16/22 empagliflozin 10 mg tablet (Jardiance) 10 mg PO DAILY diabetes #90 tabs 07/18/22 pantoprazole 40 mg tablet,delayed release 40 mg PO QAM acid reflux #30 tabs 08/13/22 metoprolol tartrate 25 mg tablet 25 mg PO Q12 high blood pressure #180 tabs 10/23/22 flecainide 100 mg tablet 50 mg (1/2 x 100 mg) PO BID heart rhythm #60 tabs 10/28/22 ursodiol 300 mg capsule 300 mg PO BID heart #180 caps 03/07/23 apixaban 5 mg tablet (Eliquis) 5 mg PO BID blood thinner #60 tabs 06/02/23 hydroxychloroquine 200 mg tablet (Plaquenil) 400 mg (2 x 200 mg) PO DAILY arthritis #1 TAB 06/13/23 albuterol sulfate 90 mcg/actuation breath activated powder inhaler 2 inh inhalation Q4H PRN shortness of breath 06/24/23 vitamin E mixed 1,000 unit capsule 400 unit PO DAILY general health 06/24/23 amoxicillin 875 mg-potassium clavulanate 125 mg tablet 1 tab PO BID 5 days #10 tabs 06/26/23 furosemide 40 mg tablet 40 mg PO DAILY PRN weight gain #30 tabs 06/26/23 prednisone 20 mg tablet See Taper PO BREAKFAST #32 tabs 06/26/23 Hospital Course Summary of Care Provided Minutes Spent on Discharge: 36 Hospital Course: Patient is a 52-year-old female history of alcohol abuse, atrial fibrillation, COPD, CKD, DVT, FADY on CPAP, nonischemic cardiomyopathy who presented to [facility] 06/24/2023 with increasing shortness of breath above her baseline. Symptoms started same day of presentation and she had associated hemoptysis. She had been having increasing shortness of breath over the past month with multiple pulmonology evaluations with her supervisor dog license officer Dr. Lugo and thinks she had been on steroids and noted in the past couple weeks that she had pulmonary function test which had worsened. On presentation she said she had a temp of more than 100.4 ?F at home and some chills and she has been havingcough with posttussis gagging and some hemoptysis more so over the past 24 to 48hours and additionally had a white blood cell count of 18.2. Denies any weight gain or any increase in swelling, only takes Lasix as needed at home at baseline. Based on her symptoms and initial imaging there was concern she had an atypical pneumonia, also had slight increase in BNP and some lower extremity swelling and was given IV Lasix which quickly improved without aspect, she did improve some on antibiotics but had slow to improve symptoms and was placed on asteroid taper given her history which significantly improved respiratory and clinical status and was felt there is component of acute exacerbation of COPD. Patient was ambulated in ED and could not maintain O2 sats even on 6 L of O2 butwas ambulated day of discharge and needed 2 L with ambulation, much improved, will likely only need the short-term at home and patient verbalized understanding. Patient is ambulatory in the home and in the community and requires home oxygen with portability. Additionally she was placed on CIWA during her admission and symptoms did begin to improve from a withdrawal standpoint and patient reports intent to quit drinking and smoking and will discuss this with her primary care physician. On day of discharge feeling significantly better, discharge instructions as follows: -You will be discharged on Augmentin 875 mg twice daily for another 5 days -Please follow-up with your lung and heart doctors upon discharge -You will be discharged on a prednisone taper: -60 mg daily x3 days -50mg daily x3 days -40mg daily x3 days -30mg daily x3 days -20mg daily x3 days -10mg daily x3 days -Weigh yourself every day. A sudden weight gain can mean you are retaining fluid. Weigh yourself at the same time of day and in the same kind of clothes. Ideally, weigh yourself first thing in the morning after you empty your bladder,but before you eat breakfast. -Please call your physician if your weight goes up by more than 2 pounds in 1 day or 5 pounds in 1 week. This can be a sign that you are retaining more fluid than you should be. Clues to weight gain include checking your ankles for swelling, or noticing you are short of breath when you lie down -Please limit your sodium intake to less than 3 g/day. Here are tips: Limit canned, dried, packaged, and fast foods. Don't add salt to your food at the table. Season foods with herbs instead of salt when you cook. When you eat out, ask that the wheel truer not add any salt to your dish. Don't eat fried or greasy foods. Be careful of bottled beverages. They can contain a lot of salt -Call 911 right away if you have: -Severe shortness of breath, such that you can't catch your breath even while resting -Severe chest pain that does not resolve with rest or nitroglycerin -[place], foamy mucus with cough and shortness of breath -An ongoing rapid or irregular heartbeat -Passing out or fainting -Stroke symptoms such as sudden numbness or weakness on one side of your face, arm, or leg or sudden confusion, trouble speaking or vision changes - It is strongly advised that you refrain from any further alcohol use. Please call [facility] located at [address] [place] [address] (ph [phone]) ifyou are interested in further resources -Please call your primary care provider's office upon discharge to schedule a hospital follow up within 1 week. -For any concerning signs or symptoms please call 911 or proceed to the nearest emergency department Physical Exam Narrative General: Alert, oriented, appears tired HEENT: Atraumatic, normocephalic Eyes: Anicteric, normal conjunctiva, extraocular movements grossly intact Neck: Supple Respiratory: Somewhat diminished bilaterally but improving air movement, normal respiratory effort Cardiovascular: Regular rate GI: Soft, nontender, nondistended Extremities: No edema, slight wrinkling Musculoskeletal: Moving all extremities Neuro: No overt focal neurological deficits, no tremor in hands Skin: No rashes appreciated Psych: Cooperative Weight / BMI Weight Weight: 113.8 kg Body Mass Index (BMI) 40.4 ABG / Lab / Microbiology Data 06/26/23 07:25 06/26/23 07:25 Laboratory: Laboratory Results - last 24 hr 06/24/23 17:30: Mycoplasma pneumon IgG < 100, Mycoplasma pneumon IgM < 770 06/26/23 07:25: WBC 5.6, RBC 3.98 L, Hgb 12.3, Hct 38.8, MCV 97.5, MCH 30.9, MCHC 31.7 L, RDW Std Deviation 46.5 H, RDW Coeff of [place] 13.0, Plt Count 159, MPV9.4, Immature Gran % (Auto) 1.100 H, Neut % (Auto) 78.0 H, Lymph % (Auto) 9.4 L,[place] % (Auto) 9.2, Eos % (Auto) 1.4, Baso % (Auto) 0.9, Absolute Neuts (auto) 4.4, Absolute Lymphs (auto) 0.53 L, Nucleated RBC % 0, Differential Comment SCANNED, Sodium 139, Potassium 3.4 L, Chloride 105, Carbon Dioxide 26.0, Anion Gap 8, BUN 23 H, Creatinine 1.25 H, Estim Creat Clear Calc 48.16, Est GFR (MDRD)Af Amer 57 L, Est GFR (MDRD) Non-Af 47 L, BUN/Creatinine Ratio 18.4, Glucose 109H, Calcium 8.6 Microbiology: Microbiology 06/25/23 02:10 Urine, Clean Catch Legionella Antigen - Final 06/25/23 02:10 Urine, Clean Catch Streptococcus pneumoniae Antigen (M - Final 06/24/23 23:25 Mucosa - Nasopharyngeal Respiratory Panel (PCR) - Final 06/24/23 17:30 Nasal Secretion SARS-CoV-2 & FLU Antigen (Rapid) - Final D/C Instructions Discharge Diet: - (-DASH diet, 3000 mg sodium restriction, 2 L fluid restriction) Meaningful Use Info Meaningful Use Diagnoses (Choose all that apply): None applicable Discharge Plan Admission Admit Date/Time: 06/24/23 21:01 Primary Reason for Your Visit: Shortness of breath Attending Provider: Rose Marie Baker Primary Care Provider: Sarai Watkins Consulting Providers: Hung Vinson Instructions Patient Instructions: Asthma and COPD Additional Instructions / Restrictions: DISCHARGE INSTRUCTIONS PLEASE READ *Please take this with you to your next doctors appointment* -You will be discharged on Augmentin 875 mg twice daily for another 5 days -Please follow-up with your lung and heart doctors upon discharge -You will be discharged on a prednisone taper: -60 mg daily x3 days -50mg daily x3 days -40mg daily x3 days -30mg daily x3 days -20mg daily x3 days -10mg daily x3 days -Weigh yourself every day. A sudden weight gain can mean you are retaining fluid. Weigh yourself at the same time of day and in the same kind of clothes. Ideally, weigh yourself first thing in the morning after you empty your bladder,but before you eat breakfast. -Please call your physician if your weight goes up by more than 2 pounds in 1 day or 5 pounds in 1 week. This can be a sign that you are retaining more fluid than you should be. Clues to weight gain include checking your ankles for swelling, or noticing you are short of breath when you lie down -Please limit your sodium intake to less than 3 g/day. Here are tips: Limit canned, dried, packaged, and fast foods. Don't add salt to your food at the table. Season foods with herbs instead of salt when you cook. When you eat out, ask that the wheel truer not add any salt to your dish. Don't eat fried or greasy foods. Be careful of bottled beverages. They can contain a lot of salt -Call 911 right away if you have: -Severe shortness of breath, such that you can't catch your breath even while resting -Severe chest pain that does not resolve with rest or nitroglycerin -[place], foamy mucus with cough and shortness of breath -An ongoing rapid or irregular heartbeat -Passing out or fainting -Stroke symptoms such as sudden numbness or weakness on one side of your face, arm, or leg or sudden confusion, trouble speaking or vision changes - It is strongly advised that you refrain from any further alcohol use. [facility] at [address] [place] [phone] (ph [phone]) ifyou are interested in further resources -Please call your primary care provider's office upon discharge to schedule a hospital follow up within 1 week. -For any concerning signs or symptoms please call 911 or proceed to the nearest emergency department Discharge Orders/Prescriptions Prescriptions: New prednisone 20 mg Tablet See Taper PO BREAKFAST Qty: 32 0RF Taper: Prednisone Taper 60 mg WITH BREAKFAST for 3 Days and 0 Hour 50 mg WITH BREAKFAST for 3 Days and 0 Hour 40 mg WITH BREAKFAST for 3 Days and 0 Hour 30 mg WITH BREAKFAST for 3 Days and 0 Hour 20 mg WITH BREAKFAST for 3 Days and 0 Hour 10 mg WITH BREAKFAST for 3 Days and 0 Hour amoxicillin-pot clavulanate 875-125 mg tablet 1 tab PO BID 5 Days Qty: 10 0RF Continued rosuvastatin [Crestor] 5 mg tablet 10 mg PO DAILY sildenafil (pulm.hypertension) 20 mg tablet 20 mg PO TID pantoprazole 40 mg tablet,delayed release (DR/EC) 40 mg PO QAM Qty: 30 12RF Jardiance 10 mg tablet 10 mg PO DAILY Qty: 90 3RF metoprolol tartrate 25 mg tablet 25 mg PO Q12 Qty: 180 3RF flecainide 100 mg tablet 50 mg PO BID Qty: 60 11RF hydroxychloroquine [Plaquenil] 200 mg tablet 400 mg PO DAILY Qty: 1 0RF acetaminophen 500 MG tablet 1,000 mg PO DAILY PRN PRN (Reason: Pain 1-10 Or Fever) folic acid 1 MG tablet 1 mg PO DAILY cholecalciferol (vitamin D3) 10 MCG capsule 4,000 unit PO DAILY Trelegy Ellipta 100-62.5-25 mcg blister with device 1 inh INHALATION DAILY Patient Comments: INHALE 1 (ONE) PUFF FOLLOWED BY GOOD ORAL CARe trazodone 100 mg Tablet 100 mg PO QHS PRN PRN (Reason: Insomnia) 14 Days Qty: 14 0RF bupropion HCl 300 mg tablet extended release 24 hr 300 mg PO DAILY vitamin E mixed 1,000 unit capsule 400 unit PO DAILY albuterol sulfate 90 mcg/actuation aerosol powdr breath activated 2 inh inhalation Q4H PRN (Reason: shortness of breath) ursodiol 300 mg capsule 300 mg PO BID Qty: 180 3RF Eliquis 5 mg tablet 5 mg PO BID Qty: 60 11RF Changed furosemide 40 mg tablet 40 mg PO DAILY PRN (Reason: weight gain) Qty: 30 0RF Patient Comments: for ankle swelling. pt has pills from old script and takes on occasion Discontinued celecoxib [Celebrex] 100 mg capsule 100 mg PO DAILY Hold Instructions: MANJINDER amlodipine [Norvasc] 5 mg tablet 5 mg PO DAILY Qty: 30 11RF Referrals / Follow Up: Sarai Watkins MD [Primary Care Provider] - 07/09/23 9:30 am Disposition Disposition (needs filled in before D/C Order can be placed): Home, Self Care Charges/Coding Visit Charges Inpatient E&M: 69032 Disch Hosp >30min 10/26/23 1621 <Electronically signed by Rose Marie Baker MD> Cosigner Signature (if applicable): CC: Dr. Rose Marie Baker MD; Dr. Sarai Watkins MD~ Signed [facility] Work Phone: Evaluation note* Diagnosis Hiatal hernia- Primary Diaphragmatic hernia without mention of obstruction or gangrene [facility] Work Phone: Evaluation note* Diagnosis Primary osteoarthritis involving multiple joints- [facility] Diagnosis Onset Date Resolution Status Essential (primary) hypertension chronic Paroxysmal atrial fibrillation chronic Esophageal spasm acute Fatty liver acute GERD (gastroesophageal reflux disease) acute Alcohol abuse chronic Esophageal spasm acute Fatty liver acute GERD (gastroesophageal reflux disease) acute Alcohol abuse [facility] Work Phone: Evaluation note* Diagnosis Onset Date Resolution Status Essential (primary) hypertension chronic Paroxysmal atrial fibrillation chronic Esophageal spasm acute Fatty liver acute GERD (gastroesophageal reflux disease) acute Alcohol abuse chronic Esophageal spasm acute Fatty liver acute GERD (gastroesophageal reflux disease) acute Alcohol abuse chronic Extremity cyanosis acute Fatty liver acute GERD (gastroesophageal reflux disease) acute Tubular adenoma of colon acu te Alcohol abuse chronic Morbid obesity with BMI of 40.0-44.9, adult chronic Acute foot pain acute Alcohol abuse [facility] Work Phone: Evaluation note* Diagnosis Onset Date Resolution Status Essential (primary) hypertension chronic Paroxysmal atrial fibrillation chronic Esophageal spasm acute Fatty liver acute GERD (gastroesophageal reflux disease) acute Alcohol abuse chronic Esophageal spasm acute Fatty liver acute GERD (gastroesophageal reflux disease) acute Alcohol abuse chronic Extremity cyanosis acute Fatty liver acute GERD (gastroesophageal reflux disease) acute Tubular adenoma of colon acu te Alcohol abuse chronic Morbid obesity with BMI of 40.0-44.9, adult chronic Acute foot pain acute Fatty liver acute Alcohol abuse [facility] Work Phone: Evaluation note* Diagnosis Onset Date Resolution Status Essential (primary) hypertension chronic Paroxysmal atrial fibrillation chronic Esophageal spasm acute GERD (gastroesophageal reflux disease) acute Alcohol abuse chronic Fatty liver chronic Esophageal spasm acute GERD (gastroesophageal reflux disease) acute Alcohol abuse chronic Fatty liver chronic Extremity cyanosis acute GERD (gastroesophageal reflux disease) acute Tubular adenoma of colon acu te Alcohol abuse chronic Fatty liver chronic Morbid obesity with BMI of 40.0-44.9, adult chronic Acute foot pain acute Alcohol abuse chronic Fatty liver chronic Venous insufficiency acute Essential (primary) hypertension chronic Paroxysmal atrial fibrillation chronic Secondary pulmonary arterial hypertension [facility] Work Phone: evaluation note* Diagnosis Anti-phospholipid antibody syndrome (HCC)- Primary Primary hypercoagulable state Thrombocytopenia (HCC) Unspecified thrombocytopenia Low serum vitamin D Pulmonary arterial hypertension (HCC) [facility] Diagnosis Onset Date Resolution Status Esophageal spasm acute GERD (gastroesophageal reflux disease) acute Alcohol abuse chronic Fatty liver chronic Esophageal spasm acute GERD (gastroesophageal reflux disease) acute Alcohol abuse chronic Fatty liver chronic Extremity cyanosis acute GERD (gastroesophageal reflux disease) acute Tubular adenoma of colon acu te Alcohol abuse chronic Fatty liver chronic Morbid obesity with BMI of 40.0-44.9, adult chronic Acute foot pain acute Alcohol abuse chronic Fatty liver chronic Venous insufficiency acute Essential (primary) hypertension chronic Paroxysmal atrial fibrillation chronic Secondary pulmonary arterial hypertension [facility] Work Phone: evaluation note* Diagnosis Onset Date Resolution Status Esophageal spasm acute GERD (gastroesophageal reflux disease) acute Alcohol abuse chronic Fatty liver chronic GERD (gastroesophageal reflux disease) acute Tubular adenoma of colon acu te Alcohol abuse chronic Fatty liver chronic Morbid obesity with BMI of 40.0-44.9, adult chronic Alcohol abuse chronic Fatty liver chronic Essential (primary) hypertension chronic Paroxysmal atrial fibrillation chronic Secondary pulmonary arterial hypertension chronic Liver fibrosis acute [facility] Work Phone: Evaluation note* Diagnosis Onset Date Resolution Status GERD (gastroesophageal reflux disease) acute Tubular adenoma of colon acu te Alcohol abuse chronic Fatty liver chronic Morbid obesity with BMI of 40.0-44.9, adult chronic Alcohol abuse chronic Fatty liver chronic Essential (primary) hypertension chronic Paroxysmal atrial fibrillation chronic Pulmonary hypertension chron ic Secondary pulmonary arterial hypertension chronic Liver fibrosis acute Essential (primary) hypertension chronic Paroxysmal atrial fibrillation chronic Pulmonary hypertension chron ic Secondary pulmonary arterial hypertension [facility] Work Phone: evaluation note* Diagnosis Onset Date Resolution Status Alcohol abuse chronic Fatty liver chronic Essential (primary) hypertension chronic Paroxysmal atrial fibrillation chronic Pulmonary hypertension chron ic Secondary pulmonary arterial hypertension chronic Liver fibrosis acute Essential (primary) hypertension chronic Paroxysmal atrial fibrillation chronic Pulmonary hypertension chron ic Secondary pulmonary arterial hypertension chronic Acute dyspnea acute Atrial fibrillation with rapid ventricular response acute Chest pain acute [facility] Work Phone: Evaluation note* Diagnosis Onset Date Resolution Status Alcohol abuse chronic Fatty liver chronic Essential (primary) hypertension chronic Paroxysmal atrial fibrillation chronic Pulmonary hypertension chron ic Secondary pulmonary arterial hypertension chronic Liver fibrosis acute Essential (primary) hypertension chronic Paroxysmal atrial fibrillation chronic Pulmonary hypertension chron ic Secondary pulmonary arterial hypertension chronic Acute dyspnea acute Alcohol use acute Atrial fibrillation with rapid ventricular response acute Chest pain acute Heart failure with preserved ejection fraction acute Panic attack acute Essential (primary) hypertension chronic Paroxysmal atrial fibrillation chronic Pulmonary hypertension chron ic [facility] Work Phone: Evaluation note* Diagnosis Onset Date Resolution Status Essential (primary) hypertension chronic Paroxysmal atrial fibrillation chronic Pulmonary hypertension chron ic Secondary pulmonary arterial hypertension chronic Liver fibrosis acute Essential (primary) hypertension chronic Paroxysmal atrial fibrillation chronic Pulmonary hypertension chron ic Secondary pulmonary arterial hypertension chronic Acute dyspnea acute Alcohol use acute Atrial fibrillation with rapid ventricular response acute Chest pain acute Heart failure with preserved ejection fraction acute Panic attack acute Essential (primary) hypertension chronic Paroxysmal atrial fibrillation chronic Pulmonary hypertension chron ic Atrial flutter acute Chest pain acute Near syncope acute [facility] Work Phone: Evaluation note* Diagnosis Onset Date Resolution Status Essential (primary) hypertension chronic Paroxysmal atrial fibrillation chronic Pulmonary hypertension chron ic Secondary pulmonary arterial hypertension chronic Liver fibrosis acute Essential (primary) hypertension chronic Paroxysmal atrial fibrillation chronic Pulmonary hypertension chron ic Secondary pulmonary arterial hypertension chronic Acute dyspnea acute Alcohol use acute Atrial fibrillation with rapid ventricular response acute Chest pain acute Heart failure with preserved ejection fraction acute Panic attack acute Essential (primary) hypertension chronic Paroxysmal atrial fibrillation chronic Pulmonary hypertension chron ic Atrial flutter acute Chest pain acute Heart failure with preserved ejection fraction acute Near syncope acute Essential (primary) hypertension chronic Paroxysmal atrial fibrillation chronic Secondary pulmonary arterial hypertension [facility] Work Phone: Evaluation note* Diagnosis Onset Date Resolution Status Liver fibrosis acute Acute dyspnea resolved Chest pain resolved Chest pain resolved Near syncope resolved Non-ischemic cardiomyopathy acute PAF (paroxysmal atrial fibrillation) acute PFO (patent foramen ovale) a cute Chronic kidney disease (CKD) chronic HLD (hyperlipidemia) chronic Secondary pulmonary arterial hypertension [facility] Work Phone: Evaluation note* Diagnosis Onset Date Resolution Status Acute dyspnea resolved Chest pain resolved Chest pain resolved Near syncope resolved Non-ischemic cardiomyopathy acute PAF (paroxysmal atrial fibrillation) acute PFO (patent foramen ovale) a cute Chronic kidney disease (CKD) chronic HLD (hyperlipidemia) chronic Secondary pulmonary arterial hypertension chronic Non-ischemic cardiomyopathy acute PAF (paroxysmal atrial fibrillation) acute PFO (patent foramen ovale) a cute Chronic kidney disease (CKD) chronic HLD (hyperlipidemia) chronic Secondary pulmonary arterial hypertension [facility] Work Phone: Evaluation note* Diagnosis Onset Date Resolution Status Acute dyspnea resolved Chest pain resolved Chest pain resolved Near syncope resolved Non-ischemic cardiomyopathy acute PAF (paroxysmal atrial fibrillation) acute PFO (patent foramen ovale) a cute Chronic kidney disease (CKD) chronic HLD (hyperlipidemia) chronic Secondary pulmonary arterial hypertension chronic Non-ischemic cardiomyopathy acute PAF (paroxysmal atrial fibrillation) acute PFO (patent foramen ovale) a cute Chronic kidney disease (CKD) chronic HLD (hyperlipidemia) chronic Secondary pulmonary arterial hypertension chronic Liver fibrosis acute HTN (hypertension), benign a cute Non-ischemic cardiomyopathy acute PAF (paroxysmal atrial fibrillation) acute PFO (patent foramen ovale) a cute Chronic kidney disease (CKD) chronic HLD (hyperlipidemia) chronic Secondary pulmonary arterial hypertension [facility] Work Phone: Evaluation note* Diagnosis Onset Date Resolution Status Non-ischemic cardiomyopathy acute PAF (paroxysmal atrial fibrillation) acute PFO (patent foramen ovale) a cute Chronic kidney disease (CKD) chronic HLD (hyperlipidemia) chronic Secondary pulmonary arterial hypertension chronic Non-ischemic cardiomyopathy acute PAF (paroxysmal atrial fibrillation) acute PFO (patent foramen ovale) a cute Chronic kidney disease (CKD) chronic HLD (hyperlipidemia) chronic Secondary pulmonary arterial hypertension chronic Liver fibrosis acute HTN (hypertension), benign a cute Non-ischemic cardiomyopathy acute PAF (paroxysmal atrial fibrillation) acute PFO (patent foramen ovale) a cute Chronic kidney disease (CKD) chronic HLD (hyperlipidemia) chronic Secondary pulmonary arterial hypertension chronic Acute respiratory failure with hypoxia resolved [facility] Work Phone: Evaluation note* Diagnosis Onset Date Resolution Status Non-ischemic cardiomyopathy acute PAF (paroxysmal atrial fibrillation) acute PFO (patent foramen ovale) a cute Chronic kidney disease (CKD) chronic HLD (hyperlipidemia) chronic Secondary pulmonary arterial hypertension chronic Liver fibrosis acute HTN (hypertension), benign a cute Non-ischemic cardiomyopathy acute PAF (paroxysmal atrial fibrillation) acute PFO (patent foramen ovale) a cute Chronic kidney disease (CKD) chronic HLD (hyperlipidemia) chronic Secondary pulmonary arterial hypertension chronic Acute respiratory failure with hypoxia resolved [facility] Work Phone: Evaluation note* Diagnosis Severe pulmonary hypertension (HCC)- Primary Anti-phospholipid antibody syndrome (HCC) Primary hypercoagulable state documented in this encounter [facility] note* Diagnosis Onset Date Resolution Status Non-ischemic cardiomyopathy acute PAF (paroxysmal atrial fibrillation) acute PFO (patent foramen ovale) a cute Chronic kidney disease (CKD) chronic HLD (hyperlipidemia) chronic Secondary pulmonary arterial hypertension chronic Liver fibrosis acute HTN (hypertension), benign a cute Non-ischemic cardiomyopathy acute PAF (paroxysmal atrial fibrillation) acute PFO (patent foramen ovale) a cute Chronic kidney disease (CKD) chronic HLD (hyperlipidemia) chronic Secondary pulmonary arterial hypertension chronic Acute respiratory failure with hypoxia resolved HTN (hypertension), benign a cute Non-ischemic cardiomyopathy acute PAF (paroxysmal atrial fibrillation) acute PFO (patent foramen ovale) a cute Chronic kidney disease (CKD) chronic HLD (hyperlipidemia) chronic Secondary pulmonary arterial hypertension [facility] Work Phone: Evaluation note* Diagnosis Pulmonary hypertension (HCC)- Primary Other chronic pulmonary heart diseases Dyspnea and respiratory abnormalities Other dyspnea and respiratory abnormality [facility]* Diagnosis Abdominal pain, unspecified abdominal location- Primary documented in this encounter [facility] note* Diagnosis Pulmonary hypertension (HCC)- Primary Other chronic pulmonary heart diseases documented in this encounter [facility] note* Diagnosis Primary osteoarthritis involving multiple joints- Primary Anti-phospholipid antibody syndrome (HCC) Primary hypercoagulable state documented in this encounter [facility] note* Diagnosis Onset Date Resolution Status HTN (hypertension), benign a cute Non-ischemic cardiomyopathy acute PAF (paroxysmal atrial fibrillation) acute PFO (patent foramen ovale) a cute Chronic kidney disease (CKD) chronic HLD (hyperlipidemia) chronic Secondary pulmonary arterial hypertension chronic Acute respiratory failure with hypoxia resolved HTN (hypertension), benign a cute Non-ischemic cardiomyopathy acute PAF (paroxysmal atrial fibrillation) acute PFO (patent foramen ovale) a cute Chronic kidney disease (CKD) chronic HLD (hyperlipidemia) chronic Secondary pulmonary arterial hypertension [facility] Work Phone: Evaluation note* Diagnosis Left shoulder pain, unspecified chronicity- Primary documented in this encounter [facility] note* Diagnosis Chronic left shoulder pain- Primary Pain in joint, shoulder region Shoulder impingement Other affections of shoulder region, not elsewhere classified documented in this encounter [facility] note* Diagnosis Antiphospholipid antibody positive- Primary Other and unspecified nonspecific immunological findings Severe pulmonary hypertension (HCC) documented in this encounter [facility] note* Diagnosis Onset Date Resolution Status HTN (hypertension), benign a cute Non-ischemic cardiomyopathy acute PAF (paroxysmal atrial fibrillation) acute PFO (patent foramen ovale) a cute Chronic kidney disease (CKD) chronic HLD (hyperlipidemia) chronic Secondary pulmonary arterial hypertension chronic Atypical pneumonia acute HFrEF (heart failure with reduced ejection fraction) acute Hypoxemia acute Non-ischemic cardiomyopathy acute Secondary pulmonary arterial hypertension [facility] Work Phone: evaluation note* Diagnosis Onset Date Resolution Status HTN (hypertension), benign a cute Non-ischemic cardiomyopathy acute PAF (paroxysmal atrial fibrillation) acute PFO (patent foramen ovale) a cute Chronic kidney disease (CKD) chronic HLD (hyperlipidemia) chronic Secondary pulmonary arterial hypertension chronic Atypical pneumonia acute HFrEF (heart failure with reduced ejection fraction) acute HTN (hypertension), benign a cute Hypoxemia acute Non-ischemic cardiomyopathy acute Morbid obesity with BMI of 40.0-44.9, adult chronic Secondary pulmonary arterial hypertension [facility] Work Phone: evaluation note* Diagnosis Left shoulder pain, unspecified chronicity documented in this encounter [facility] note* Diagnosis Onset Date Resolution Status Atypical pneumonia acute HFrEF (heart failure with reduced ejection fraction) acute HTN (hypertension), benign a cute Hypoxemia acute Non-ischemic cardiomyopathy acute Morbid obesity with BMI of 40.0-44.9, adult chronic Secondary pulmonary arterial hypertension chronic HTN (hypertension), benign a cute Non-ischemic cardiomyopathy acute PAF (paroxysmal atrial fibrillation) acute PFO (patent foramen ovale) a cute Chronic kidney disease (CKD) chronic HLD (hyperlipidemia) chronic Secondary pulmonary arterial hypertension [facility] Work Phone: Evaluation note* Diagnosis Antiphospholipid antibody positive- Primary Other and unspecified nonspecific immunological findings Positive double stranded DNA antibody test Severe pulmonary hypertension (HCC) High risk medication use [facility] Diagnosis Antiphospholipid antibody positive- Primary Other and unspecified nonspecific immunological findings documented in this encounter [facility] note* Diagnosis Onset Date Resolution Status HTN (hypertension), benign a cute Non-ischemic cardiomyopathy acute PAF (paroxysmal atrial fibrillation) acute PFO (patent foramen ovale) a cute Chronic kidney disease (CKD) chronic HLD (hyperlipidemia) chronic Secondary pulmonary arterial hypertension chronic Morbid obesity with BMI of 40.0-44.9, adult chronic NAFLD (nonalcoholic fatty liver disease) chronic Right-sided heart failure [facility] Work Phone: Evaluation note* Diagnosis Onset Date Resolution Status Morbid obesity with BMI of 40.0-44.9, adult chronic NAFLD (nonalcoholic fatty liver disease) chronic Right-sided heart failure [facility] Work Phone: Evaluation note* Diagnosis Anti-phospholipid antibody syndrome (HCC)- Primary Primary hypercoagulable state documented in this encounter [facility] note* Diagnosis Anti-phospholipid antibody syndrome (HCC) Primary hypercoagulable state [facility] Hand [facility], right, initial encounter documented in this encounter [facility] note* Diagnosis Hand injury, left, initial encounter documented in this encounter [facility] note* Diagnosis Anti-phospholipid antibody syndrome- Primary Primary hypercoagulable state Positive double stranded DNA antibody test Severe pulmonary hypertension (HCC) High risk medication use documented in this encounter [facility] note* Diagnosis Anti-phospholipid antibody syndrome Primary hypercoagulable state [facility] Author Hung Vinson [facility] June 24, 2023 10:06pm Note Date/Time June 24, 2023 8 :54pm [facility] Medical Records Department [address] [place] [address] H&P Exam - Hospitalist 06/24/232053 MR#: [id number] Acct: [id number] Name: DEE SHEPHERD Rep #:[id number] : 1970 52 From: Hung Vinson MD PCP: Dr. Sarai Watkins MD Status:ADM I N Location: [place] [id number] HPI - General General Date of Admission: 06/24/23 Date of Service: 06/24/23 Chief Complaint: Shortness of breath HPI Narrative DEE SHEPHERD, is a 52 F with a significant history of COPD; nonischemic cardiomyopathy; alcoholism; atrial fibrillation on flecainide and Eliquis who presents to the emergency department with persistent shortness of breath above her baseline. Patient's symptoms started on the same day of presentation. Associated with her symptoms is hemoptysis. Of note patient took some NyQuil but thinks that the hemoptysis was real since the hematemesis persisted even about 4 hours after taking the NyQuil. Chronically at night patient uses a CPAP with oxygen 2 L bled in. Patient checked her oxygen saturations and it was about 70%. She reports drinking and smoking and night before presentation. She thinks thather cough is from smoking. She reports home temperature of more than 100 Fahrenheit. She reports chills more than her baseline on the day of presentation. She reports headaches She has chronic swelling of bilateral lower extremities last no change. She reports wheezing which is not above her baseline She sleeps on her side chronically because she cannot sleep on her back secondary to pain. She denies paroxysmal nocturnal dyspnea saying that she is always inebriated with sleeping. Patient reported the day before presentation she had a repeat pulmonary functiontests. Patient's supervisor dog license officer is Dr. Lugo. [facility] Medical History Alcohol abuse Allergic rhinitis Anemia Anxiety Atrial fibrillation Atrial flutter Bilateral knee pain Chronic kidney disease (CKD) COPD (chronic obstructive pulmonary disease) CPAP (continuous positive airway pressure) dependence Depression DVT (deep venous thrombosis) Esophageal spasm Essential (primary) hypertension Extremity cyanosis Fatty liver Former smoker Former smoker GERD (gastroesophageal reflux disease) Heart failure with preserved ejection fraction HFrEF (heart failure with reduced ejection fraction) Hiatal hernia History of back problems History of edema History of pain when walking HLD (hyperlipidemia) HTN (hypertension), benign Hyperthyroidism Hypomagnesemia Iron deficiency Migraines Morbid obesity with BMI of 40.0-44.9, adult Non-ischemic cardiomyopathy Obstructive sleep apnea Osteoarthritis PAF (paroxysmal atrial fibrillation) Panic attack Paroxysmal atrial fibrillation Patellofemoral syndrome of both knees PFO (patent foramen ovale) Pulmonary embolism (04/26/16) Secondary pulmonary arterial hypertension Tobacco user Tubular adenoma of colon Home Medications rosuvastatin 5 mg tablet (Crestor) 10 mg PO DAILY cholesterol 06/18/19 [History Last Taken 09/12/22] acetaminophen 500 mg tablet 1,000 mg PO DAILY PRN PRN Pain 1-10 Or Fever 08/01/20 [History Last Taken 09/13/22] cholecalciferol (vitamin D3) 10 mcg (400 unit) capsule 4,000 unit PO DAILY supplement 08/01/20 [History Last Taken 09/12/22] folic acid 1 mg tablet 1 mg PO DAILY supplement 08/01/20 [History Last Taken 09/12/22] multivitamin 1 tab PO DAILY DAILY 12/28/20 [History Last Taken 09/12/22] sildenafil (pulm.hypertension) 20 mg tablet 20 mg PO TID pulmonary HTN 05/01/21 [History Last Taken 09/12/22] fluticasone fur. 100 mcg-umeclid 62.5 mcg-vilant 25 mcg inhalat.powder (Trelegy Ellipta) 1 inh inhalation DAILY COPD 01/20/22 [History Last Taken 09/12/22] trazodone 100 mg tablet 100 mg PO QHS PRN PRN Insomnia 14 days #14 tabs 01/24/22[Rx Last Taken 3 Days Ago ~09/10/22] bupropion HCl 300 mg 24 hr tablet, extended release 300 mg PO DAILY mood 05/16/22 [History Last Taken 09/12/22] celecoxib 100 mg capsule (Celebrex) 100 mg PO DAILY pain 07/18/22 [History Last Taken 09/12/22] empagliflozin 10 mg tablet (Jardiance) 10 mg PO DAILY diabetes #90 tabs 07/18/22[Rx Last Taken 09/12/22] pantoprazole 40 mg tablet,delayed release 40 mg PO QAM #30 tabs 08/13/22 [Rx Last Taken 09/12/22] amlodipine 5 mg tablet (Norvasc) 5 mg PO DAILY pain #30 tabs 09/11/22 [Rx Last Taken 09/13/22] oxycodone 5 mg tablet 5 mg PO Q8H PRN pain 3 days #10 tabs 09/28/22 [Rx Last Taken Unknown] metoprolol tartrate 25 mg tablet 25 mg PO Q12 #180 tabs 10/23/22 [Rx Last Taken Unknown] flecainide 100 mg tablet 50 mg (1/2 x 100 mg) PO BID heart rhythm #60 tabs 10/28/22 [Rx Last Taken 06/24/23] ursodiol 300 mg capsule 300 mg PO BID #180 caps 03/07/23 [Rx Last Taken Unknown] furosemide 40 mg tablet 40 mg PO .COMPLEX edema #14 tabs 04/29/23 [Rx Last Taken Unknown] apixaban 5 mg tablet (Eliquis) 5 mg PO BID blood thinner #60 tabs 06/02/23 [Rx Last Taken Unknown] hydroxychloroquine 200 mg tablet (Plaquenil) 400 mg (2 x 200 mg) PO DAILY #1 TAB06/13/23 [Rx Last Taken Unknown] Allergy/AdvReac Type Severity Reaction Status Date / Time doxycycline Allergy Hives Verified 06/24/23 17:34 hydrocodone [From Vicodin] AdvReac Itching Verified 06/24/23 17:34 Family History Mother Breast cancer Cancer lung cancer Father Cancer lung cancer Hypertension High cholesterol Surgical History H/O repair of rotator cuff History of History of cardiac catheterization History of cardioversion (05/23/22) History of cholecystectomy History of hysterectomy History of nasal surgery History of repair of hiatal hernia (12/2020) History of transesophageal echocardiography (MABEL) (05/23/22) Social History household members: spouse Smoking Status: Current some day smoker tobacco type: cigarettes alcohol intake: current alcohol intake frequency: 3 or more drinks per day Alcohol type: hard liquor details: Started drinking again recently, has been intermittent. Hard liquor drinks. substance use type: does not use ROS ROS Narrative Pertinent positives and pertinent negatives as noted in HPI. All other systems were reviewed and are negative Vital Signs Vital Signs Vital Signs: 06/24/23 17:30 06/24/23 17:35 06/24/23 17:36 Temperature 99.5 F H Temperature Source Temporal Pulse Rate 77 73 Respiratory Rate 30 H 18 Respiratory Effort Short of Breath Labored Respiratory Depth Shallow Respiratory Pattern Tachypnea Blood Pressure 127/73 H Blood Pressure Mean 91 Pulse Ox 90 92 Oxygen Delivery Method Nasal Cannula Nasal Cannula Nasal Cannula Oxygen Flow Rate (L/min) 6 6 6 06/24/23 17:50 06/24/23 18:03 06/24/23 19:40 Temperature Temperature Source Pulse Rate 71 66 Respiratory Rate 16 21 H Respiratory Effort Respiratory Depth Respiratory Pattern Normal Blood Pressure Blood Pressure Mean Pulse Ox 91 83 Oxygen Delivery Method Nasal Cannula Room Air Oxygen Flow Rate (L/min) 6 06/24/23 19:43 Temperature Temperature Source Pulse Rate 59 L Respiratory Rate 18 Respiratory Effort Respiratory Depth Respiratory Pattern Blood Pressure Blood Pressure Mean Pulse Ox 90 Oxygen Delivery Method Nasal Cannula Oxygen Flow Rate (L/min) 2 Weight Weight: 115.666 kg Body Mass Index (BMI) 40.0 Physical Exam Narrative Physical exam: General: Well-nourished, well-developed. Head: Normocephalic, atraumatic, no tenderness Eyes: Vision is grossly intact. EOMI ENT, no trauma, mildly dry mucous membranes, no rhinorrhea Neck: Nontender, No thyromegaly. CVS: Regular rate and rhythm. S1-S2 present. No murmur, gallop or rub. Respiratory : Diminished lung sounds bilaterally, chest wall nontender Abdomen: Soft, nontender, nondistended, normal bowel sounds, no masses : Deferred Back: Nontender, no CVA tenderness, no midline spinal tenderness, deformities, step-offs Extremities: Nontender full range of motion, no trauma. Nonpitting edema of bilateral lower legs Skin: Normal color, no trauma, abrasions Neuro: Alert, oriented, cranial nerves II through XII grossly intact. Psychiatry: Normal mood. Normal affect. Not depressed. Not anxious. Results Lab / Micro Data 06/24/23 17:30 06/24/23 17:30 Labs: Laboratory Results - last 24 hr 06/24/23 17:30: WBC 18.2 H, RBC 4.05 L, Hgb 12.5, Hct 39.6, MCV 97.8, MCH 30.9, MCHC 31.6 L, RDW Std Deviation 46.1 H, RDW Coeff of [place] 12.9, Plt Count 205, MPV9.7, Immature Gran % (Auto) 0.900, Neut % (Auto) 93.5 H, Lymph % (Auto) 1.8 L, [place] % (Auto) 3.3, Eos % (Auto) 0.1, Baso % (Auto) 0.4, Absolute Neuts (auto) 17.0 H, Absolute Lymphs (auto) 0.33 L, Nucleated RBC % 0, Differential Comment ,Sodium 140, Potassium 4.7, Chloride 111 H, Carbon Dioxide 23.0, Anion Gap 6, BUN22 H, Creatinine 1.11 H, Estim Creat Clear Calc 56.34, Est GFR (MDRD) Af Amer 66, Est GFR (MDRD) Non-Af 54 L, BUN/Creatinine Ratio 19.8, Glucose 154 H, Calcium 8.9, Troponin I High Sens 7, B-Natriuretic Peptide 347.8 H Micro: Microbiology 06/24/23 17:30 Nasal Secretion SARS-CoV-2 & FLU Antigen (Rapid) - Final Radiology Impression Chest X-Ray 06/24/23 18:08 IMPRESSION: Findings which may be consistent with congestive failure although pneumonia or other nonspecific causes of pulmonary edema not excluded. Electronically Signed: Edinson Smith MD at 18:23 EDT , Assessment & Plan Assessment/Plan (1) Non-ischemic cardiomyopathy: (2) HFrEF (heart failure with reduced ejection fraction): (3) Atypical pneumonia: PLAN: Plan Worsening respiratory failure Like secondary to atypical pneumonia. Impression of chest x-ray by radiologist: Findings which may be consistent with congestive heart failure although pneumonia or other nonspecific causes of pulm edema not excluded. Chest x-ray was independently interpreted by hospitalist: Bilateral pulmonary infiltrate noted. Of note patient had low grade fever at the Hospital; and high grade fever at home. She reports she is above her baseline. White count of 18.2 with neutrophilia and lymphopenia. Trend CBC Legionella antigen screen and Strep antigen ordered. Headaches PRN Tylenol ordered. Chronic heart failure with improved ejection fraction/nonischemic cardiomyopathy Transthoracic echocardiogram on 10/10/2022 showed ejection fraction of 55 to 60%. Transesophageal echocardiogram on 05/23/2022 showed estimate ejection fraction of 40%. Doubt acute on chronic heart failure send patient denies change in weight or change in swelling. BNP is mildly elevated at 347.8. However of note her BNP on 02/06/2023 was 97.7. Received Lasix 20 mg IV at the emergency department. Patient reports that if hetakes Lasix for a long time, but for about a week she develops kidney disease. She takes Lasix only as needed. We will hold off further Lasix at this time. Trend BMP. Daily weights. Fluid restriction. Alcoholism Patient reports drinking about half to a third of a fifth of whiskey every night. She is concerned that she may go into withdrawal with admission. CIWA protocol with as needed Ativan ordered. Thiamine and folic acid p.o. ordered. Paroxysmal A-fib Patient in sinus rhythm at her presentation. Resume home Eliquis; and flecainide. Placed on telemetry. Hypertension Blood pressure is stable. Continue home blood pressure medications when verified. Monitor. CKD stage IIIa Stable Trend BMP. Tobacco abuse Counseled. DVT prophylaxis: Not indicated as patient is on home Eliquis. Resume home Eliquis when medication verified Time spent in the patient's overall evaluation,decision-making process, review of diagnostic data, adjustment of management, discussion with other providers, nursing and ancillary staff involved in patient's care documentation, 72 minutes. Charges/Coding Visit Charges Inpatient E&M: 76356 Init Hosp L3 06/24/232205 <Electronically signed by Hung Vinson MD> Cosigner Signature (if applicable): CC: Dr. Hung Vinson MD; Dr. Sarai Watkins MD~ Signed [facility] Work Phone: Reason for referral (narrative)* Outpatient Procedure (Routine) - Pending Review Specialty Diagnoses / Procedures Referred By Contac t Referred To Contact [facility] Diagnoses Pulmonary hypertension (HCC) Procedures ECHO ECHO TTHRC R-T 2D W/WOM-MODE COMPL SPEC&COLR D Shane Clemons APRN.CABINET MAKER [address] [place] [address] [facility] [address] [place] [address] Referral ID Status Reason Start Date Expiration Date Visits Requested Visits Authorized [id number] Pending Review Auto-Generat ed Referral 11/01/2022 11/01/2023 1 1 * Diagnostic Procedure Only (Routine) - Pending Review Specialty Diagnoses / Procedures Referred By Contac t Referred To Contact MOLECULAR & FUNCTIONAL IMAGING Diagnoses Pulmonary hypertension (HCC) Procedures NM LUNG VENT / PERF VQ PULMONARY VENTILATION & PERFUSION IMAGING Shane Clemons APRN.CNP [address] [place] [address] Molecular & Functional Imaging [address] [place] [address] Referral ID Status Reason Start Date Expiration Date Visits Requested Visits Authorized [id number] Pending Review Auto-Generat ed Referral 11/01/2022 12/01/2023 1 1 * Outpatient Procedure (Routine) - Pending Review Specialty Diagnoses / [facility] Diagnoses Pulmonary hypertension (HCC) Procedures SIX MINUTE WALK CARDIOPULMONARY EXERCISE STRESS Shane Clemons APRN.CABINET MAKER [address] [place] [address] Respiratory [facility] [address] [place] [address] Referral ID Status Reason Start Date Expiration Date Visits Requested Visits Authorized [id number] Pending Review Auto-Generat ed Referral 11/01/2022 12/01/2023 1 1 * Outpatient Procedure (Routine) - Pending Review Specialty Diagnoses / Procedures Referred By Contac t Referred To [facility] Diagnoses Pulmonary hypertension (HCC) Procedures LUNG DIFFUSION CAPACITY (DLCO) DIFFUSING CAPACITY Shane Clemons APRN.CABINET MAKER [address] [place] [address] [address] Referral ID Status Reason Start Date Expiration Date Visits Requested Visits Authorized [id number] Pending Review Auto-Generat ed Referral 11/01/2022 12/01/2023 1 1 * Outpatient Procedure (Routine) - Pending Review Specialty Diagnoses / Procedures Referred By Contac t Referred To Contact [facility] Diagnoses Pulmonary hypertension (HCC) Procedures LUNG VOLUMES Shane Clemons APRN.CABINET MAKER [address] [place] [address] Res[facility] [address] [place] [address] Referral ID Status Reason Start Date Expiration Date Visits Requested Visits Authorized [id number] Pending Review Auto-Generat ed Referral 11/01/2022 12/01/2023 1 1 * Outpatient Procedure (Routine) - Pending Review Specialty Diagnoses / Procedures Referred By Contac t Referred To Contact [facility] Diagnoses Pulmonary hypertension (HCC) Procedures SPIROMETRY WITH DILATOR IF OBSTRUCTED BRNCDILAT RSPSE SPMTRY PRE&POST-BRNCDILAT ADMN Shane Clemons APRN.CABINET MAKER [address] [place] [address] [facility] [address] [place] [address] Referral ID Status Reason Start Date Expiration Date Visits Requested Visits Authorized [id number] Pending Review Auto-Generat ed Referral 11/01/2022 12/01/2023 1 1 [facility] for referral (narrative)* Diagnostic Procedure Only (Routine) - Pending Review Specialty Diagnoses / Procedures Referred By Contac t Referred To Contact XR IMAGING Diagnoses Left shoulder pain, unspecified chronicity Procedures XR SHOULDER GENERAL 3V OR MORE AP/TRUE AP/OTHER LEFT RADEX SHOULDER COMPLETE MINIMUM 2 VIEWS Bartolo Baker MD [address] [facility] [place] [address] Xr Imaging Referral ID Status Reason Start Date Expiration Date Visits Requested Visits Authorized [id number] Pending Review Auto-Generat ed Referral 01/02/2023 02/01/2024 1 1 [facility] for referral (narrative)* Diagnostic Procedure Only (Routine) - Closed Specialty Diagnoses / Procedures Referred By Contac t Referred To Contact XR IMAGING Diagnoses Left shoulder pain, unspecified chronicity Procedures XR SHOULDER GENERAL 3V OR MORE AP/TRUE AP/OTHER LEFT RADEX SHOULDER COMPLETE MINIMUM 2 VIEWS Bartolo Baker MD [address] [place] [address] [place] [address] Referral ID Status Reason Start Date Expiration Date V isits Requested Visits Authorized [id number] Closed Auto-Generate d Referral 01/02/2023 02/01/2024 1 1 [facility] for referral (narrative)* Diagnostic Procedure Only (Urgent) - Closed Specialty Diagnoses / Procedures Referred By Contac t Referred To Contact XR IMAGING Diagnoses Hand injury, right, initial encounter Procedures XR HAND GENERAL 3V PA/LAT/OBL RIGHT RADEX HAND MINIMUM 3 VIEWS Adeline Frankel, FUNCTIONAL TESTER.CABINET MAKER [address] [place] [address] [place] [address] Referral ID Status Reason Start Date Expiration Date V isits Requested Visits Authorized [id number] Closed Auto-Generate d Referral 09/26/2021 10/26/2022 1 1 [facility] for referral (narrative)No reason for referral information [facility] Work Phone: [facility] Narrative* Diagnostic Procedure Only (Routine) - Closed Specialty Diagnoses / Procedures Referred By Contac t Referred To Contact XR IMAGING Diagnoses Left shoulder pain, unspecified chronicity Procedures XR SHOULDER GENERAL 3V OR MORE AP/TRUE AP/OTHER LEFT RADEX SHOULDER COMPLETE MINIMUM 2 VIEWS Bartolo Baker MD [address] [place] [address] [place] [address] Referral ID Status Reason Start Date Expiration Date V isits Requested Visits Authorized [id number] Closed Auto-Generate d Referral 01/02/2023 02/01/2024 [facility] Procedure Only (Urgent) - Closed Specialty Diagnoses / Procedures Referred By Contac t Referred To Contact XR IMAGING Diagnoses Hand injury, right, initial encounter Procedures XR HAND GENERAL 3V PA/LAT/OBL RIGHT RADEX HAND MINIMUM 3 VIEWS Adeline Frankel, EMMA.CABINET MAKER [address] [place] [address] [place] [address] Referral ID Status Reason Start Date Expiration Date V isits Requested Visits Authorized [id number] Closed Auto-Generate d Referral 09/26/2021 10/26/2022 1 1 [facility] Summary Purpose Family History No Family History Records Found Relationship Condition Age at Onset Recorded Date/T mandy mother Malignant neoplasm of breast Unknown Malignant neoplasm Unknown father Malignant neoplasm Unknown Hypertension Unknown High blood cholesterol Unknown Advance Directives No Advanced Directives Records FoundLatest Code Status on File Code Status Date Activated Date Inactivated Comments Full Code 08/03/2020 4:44 PM Full Code 08/02/2020 5:13 PM 08/03/2020 4:44 PM Latest Code Status on File Code Status Date Activated Date Inactivated Comments Full Code 08/03/2020 4:44 PM 08/04/2020 8:09 PM Latest Code Status on File Code Status Date Activated Date Inactivated Comments Full Code 01/18/2021 4:35 PM Full Code 01/18/2021 5:35 AM 01/18/2021 4:33 PM Full Code 08/03/2020 4:44 PM 08/04/2020 8:09 PM Documents on File Type Date Recorded Patient Drawing In Machine Tender Expl anation Advance Directives and Livin g Will 10/22/2021 10:52 AM Advance Directive Response Recorded Date/ Time Advance Directives No August 07, 2018 10:47am Living Will No December 31, 2021 2: 18pm Power of Car Electronics Installer No December 31, 2021 2:18pm Advance Directive Response Recorded Date/ Time Advance Directives No August 07, 2018 10:47am Living Will No January 20, 2022 6 :32pm Power of Car Electronics Installer No January 20, 2022 6:32pm Advance Directive Response Recorded Date/ Time Advance Directives No August 07, 2018 10:47am Living Will No January 20, 2022 9 :56pm Power of Car Electronics Installer No January 20, 2022 9:56pm Advance Directive Response Recorded Date/ Time Advance Directives No August 07, 2018 10:47am Living Will No April 20 9:44am Power of Car Electronics Installer No April 20 9:44am Advance Directive Response Recorded Date/ Time Advance Directives No August 07, 2018 10:47am Living Will No May 16, 2022 8:07am Power of Car Electronics Installer No May 8:07am Advance Directive Response Recorded Date/ Time Advance Directives No August 07, 2018 10:47am Living Will No May 16, 2022 11:02am Power of Car Electronics Installer No May 11:02am Advance Directive Response Recorded Date/ Time Advance Directives No August 07, 2018 10:47am Living Will No May 21, 2022 8:00pm Power of Car Electronics Installer No May 8:00pm Advance Directive Response Recorded Date/ Time Advance Directives No August 07, 2018 10:47am Living Will No May 21, 2022 11:14pm Power of Car Electronics Installer No May 11:14pm Advance Directive Response Recorded Date/ Time Advance Directives No August 07, 2018 9:47am Living Will No May 21, 2022 10:14pm Power of Car Electronics Installer No May 10:14pm Advance Directive Response Recorded Date/ Time Advance Directives No August 07, 2018 9:47am Living Will No September 13 5:19pm Power of Car Electronics Installer No September 13, 2022 5:19pm Advance Directive Response Recorded Date/ Time Advance Directives No August 07, 2018 9:47am Living Will No September 28 9:56am Power of Car Electronics Installer No September 28, 2022 9:56am Advance Directive Response Recorded Date/ Time Advance Directives No August 07, 2018 9:47am Living Will No October 10 9:18am Power of Car Electronics Installer No October 10, 2022 9:18am Advance Directive Response Recorded Date/ Time Advance Directives No August 07, 2018 10:47am Living Will No November 09, 2022 2:35pm Power of Car Electronics Installer No November 09 2:35pm Advance Directive Response Recorded Date/ Time Advance Directives No August 07, 2018 10:47am Living Will No June 24 5:34pm Power of Car Electronics Installer No June 24, 2023 5:34pm Advance Directive Response Recorded Date/ Time Advance Directives No August 07, 2018 10:47am Living Will No June 24 10:28pm Power of Car Electronics Installer No June 24, 2023 10:28pm Advance Directive Response Recorded Date/ Time Advance Directives No August 07, 2018 9:47am Living Will No June 24 9:28pm Power of Car Electronics Installer No June 24, 2023 9:28pm Advance Directive Response Recorded Date/ Time Living Will No March 25, 2024 8:41am Do you have a Healthcare Power of Car Electronics Installer? No March 25, 2024 8:41am Living Will No August 01 2:42am Do you have a Healthcare Power of Car Electronics Installer? No August 01, 2024 2:42am Living Will No September 27 12:32pm Do you have a Healthcare Power of Car Electronics Installer? No September 27, 2024 12:32pm Advance Directives No March 25 8:41am Advance Directive Response Recorded Date/ Time Living Will No March 25, 2024 8:41am Do you have a Healthcare Power of Car Electronics Installer? No March 25, 2024 8:41am Living Will No August 01 2:42am Do you have a Healthcare Power of Car Electronics Installer? No August 01, 2024 2:42am Living Will No September 27 12:32pm Do you have a Healthcare Power of Car Electronics Installer? No September 27, 2024 12:32pm Living Will No November 29, 2024 10:56pm Do you have a Healthcare Power of Car Electronics Installer? No November 29, 2024 10:56pm Advance Directives No March 25 8:41am Advance Directive Response Recorded Date/ Time Living Will No August 01 2:42am Do you have a Healthcare Power of Car Electronics Installer? No August 01, 2024 2:42am Living Will No November 29, 2024 10:56pm Do you have a Healthcare Power of Car Electronics Installer? No November 29, 2024 10:56pm Advance Directives No March 25 8:41am Advance Directive Response Recorded Date/ Time Advance Directives No March 25 8:41am Discharge Instructions * Discharge Instr - Activity* Raven Das APRN - CNP - 08/04/2020 11:32 AM EST As tolerated * Discharge Instr - Diet* Rocío Moseley RN - 08/04/2020 4:12 PM EST ? Good nutrition is important when healing from an illness, injury, or surgery. Follow any nutrition recommendations given to you during your hospital stay. ? If you were given an oral nutrition supplement while in the hospital, continue to take this supplement at home. You can take it with meals, in-between meals, and/or before bedtime. These supplements can be purchased at most local grocery stores, pharmacies, and chain [employer]-stores. ? If you have any questions about your diet or nutrition, call the hospital and ask for the dietitian. Diet regular * Additional Instructions* Raven Das APRN - CNP - 08/04/2020 Incentive spirometer 10 times every hour while awake. Follow up with supervisor dog license officer at [facility] in 1-2 weeks Do not remove steri strips (they will eventually fall off) documented in this encounter* Instructions* Yaima Mckee RN - 11/30/2020 Upper GI Endoscopy: What to expect at home ACTIVITY: DO NOT DRIVE, OPERATE MACHINERY, OR DRINK ANY ALCOHOL TODAY. Avoid making critical decisions, signing legal documents, or performing any activity that requires alertness for the rest of the day. You may be bloated or have gas pains since air was introduced into the stomach for the procedure. You may need to pass the gas throughout the day. You may experience a mild sore throat. You may use an [id number] chloraseptic spray, gargle with warm salt water, or use throat lozenges. Notify your physician if this feeling lasts more than 48 hours. Rest the remainder of the day. You may resume normal activity tomorrow. You may return to work tomorrow. DIET: You may resume a normal diet unless notified or recommended by your physician. You may be eager to eat a large meal after fasting, but it is a good idea to start with light mealsand ease into solid foods the first day. (*) If your stomach is upset, try clear liquids and bland, low-fat foods like plain toast or rice. Drink plenty of fluids for the first 24 hours (unless your physician states otherwise). MEDICATION: Resume your normal home medications unless notified or recommended by your physician. If you take blood thinners (such as Coumadin, Eliquis, Plavix, Aspirin, etc.) or anti-inflammatory medications (Advil, Motrin, Aleve, etc.), ask your physician when you may resume these medications. FOLLOW-UP APPOINTMENT: Follow up with or call your physician as needed. When to call for help: Call your doctor IMMEDIATELY or seek medical care if you experience: Severe pain or vomiting Coughing up more than a teaspoon of blood You pass a large amount of tar-like stools Your belly is swollen and firm with severe pain A fever greater than 101 degrees Redness or swelling of arm from the IV site for more than 48 hours Sudden onset of chest pain or shortness of breath If you become extremely dizzy or pass out (lose consciousness) IF YOU ARE UNABLE TO REACH YOUR PHYSICIAN GO TO NEAREST EMERGENCY DEPARTMENT You may experience some minor side effects following your procedure. Minor complications of esophageal manometry include: Nosebleed Discomfort in the nose and throat Stuffy/runny nose Severe complications from this procedure are rare. If you experience any signs of severe complications, please alert your physician and/or seek emergency medical care. Severe complications of esophageal manometry include: Chest pain Shortness of breath Irregular heart rhythm Aspiration (inhaling stomach contents into the lungs) Fever great than 100.4 F Perforation or tearing of the esophagus Perforation or tearing of a lung (pneumothorax) *Please continue taking your medications as prescribed and resume your previous diet unless instructed otherwise by your physician. *If a new medication has been prescribed, you will either receive a paper prescription or have it sent electronically to your pharmacy. This will be discussed with you by your physician and/or your nurse. documented in this encounter History of Present Illness * Sarai Fonseca RCP - 08/04/2020 2:35 PM EST [facility] Respiratory Care Department Progress Note SpO2 at rest on RA = 84% HR at rest = 96 Distance Walked = 50ft Recovery SpO2 with lpm with ambulation (if needed) = 94% w/ 4 L O2 Qualify for home O2 Y/N = Yes Patient mobile at home Y/N = Yes * Gilbert Michaud MD - 08/04/2020 9:48 AM EST CHEMICAL DEPENDENCY PROGRESS NOTE PATIENT: Dee Shepherd [facility] complaint Chief Complaint Patient presents with Abdominal Pain Patient stated she started having ABD pain friday on the right side. Patient states that she is distended. Patient has a history of hernias. Patient was sent here from [facility] for fluid in the abdomen and further evaulation. Seen for follow up of substance dependence and use and to monitor withdrawals S: Patient seen and examined. Overall symptoms improving. She was placed on phenobarbital prn for withdrawal symptoms yesterday but it seems like it was discontinued after she was brought back from OR (Lap Lan and liver biopsy). This am: she had a panic attack (chronic issue) because of her breathing and didn't get her home inhalers. Received one time ativan and breathing treatment and feels fine now,. REVIEW OF SYMPTOMS: Patient denies CP or SOB.Denies audio-, visual or tactile hallucinations. Denies dizziness or visual changes. Denies acute pain. Denies rhinorrhea, lacrimation, cough or sore throat. No difficulty ambulating, urinating, swallowing. Denies rash O: Vitals: 08/04/20 0807 BP: Pulse: Resp: Temp: SpO2: 95% Patient seen and examined. Alert and oriented x 3. NAD. Head: NCAT. Skin: warm, dry Eyes: PERRL. Sclera clear. Conjunctiva clear. No nystagmus. Tongue: is pink, moist, midline and non-tremulous. Teeth: no disrepair or obvious caries B/L Upper extremeties: demonstrate no gross visible or palpable tremor and no deformities Cardio: no visible edema noted in distal extremities, pedal pulses intact Chest: moves symmetrically with respiration, no audible wheezes. CNII-XII are grossly intact. And symmetrical Sensation appears to be intact in distal extremities and Gait stable. Insight and judgement are fair. Denies suicidal or homocidal ideation. Cognition intact. Denies audio, visual or tactile hallucinations. Not responding to internal stimuli, good eye contact. Recent Results (from the past 24 hour(s)) Magnesium Collection Time: 08/03/20 10:08 PM Result Value Ref Range Magnesium 1.5 (L) 1.6 - 2.3 mg/dL CBC auto differential Collection Time: 08/04/20 6:31 AM Result Value Ref Range WBC 17.9 (H) 3.6 - 10.7 10*3/uL RBC 4.53 3.80 - 5.20 10*6/uL Hemoglobin 14.1 11.7 - 16.0 g/dL Hematocrit 43.2 35.0 - 47.0 % MCV 95.4 79.0 - 98.0 fL MCH 31.1 26.0 - 34.0 pg MCHC 32.6 32.0 - 36.0 % RDW 16.5 (H) 11.5 - 14.5 % Platelets 181 140 - 440 10*3/uL MPV 7.8 7.4 - 10.4 fL Granulocytes % 89.6 (H) 40.0 - 80.0 % Lymphocyte % 2.4 (L) 20.0 - 40.0 % Monocytes 7.6 2.0 - 10.0 % Eosinophils 0.1 (L) 1.0 - 6.0 % Basophils 0.3 0.0 - 2.0 % Absolute Neut # 16.0 (H) 1.8 - 7.0 10*3/uL Absolute Lymph # 0.4 (L) 1.0 - 4.3 10*3/uL Absolute [place] # 1.4 (H) 0.0 - 0.8 10*3/uL Absolute Eos # 0.0 0.0 - 0.5 10*3/uL Absolute Baso # 0.1 0.0 - 0.2 10*3/uL Magnesium Collection Time: 08/04/20 6:31 AM Result Value Ref Range Magnesium 2.3 1.6 - 2.3 mg/dL Basic Metabolic Panel Collection Time: 08/04/20 6:31 AM Result Value Ref Range Sodium 135 135 - 145 mmol/L Potassium 4.7 3.5 - 5.1 mmol/L Chloride 100 98 - 107 mmol/L CO2 20 (L) 22 - 30 mmol/L Anion Gap 15 NA Glucose 156 (H) 70 - 100 mg/dL BUN 22 (H) 7 - 20 mg/dL CREATININE 1.14 0.52 - 1.25 mg/dL eGFR 64.1 >60 mL/min EGFR IF NonAfrican Kenyan 55.3 (A) >60 mL/min Calcium 9.0 8.4 - 10.4 mg/dL Assessment/Plan: Alcohol use disorder severe with withdrawal Day # 5 of no use Evaluated the patient CIWA score and is low, continue medications, adjust per symptoms/signs Remaining medical management per primary team. Will sign off. She can be discharged from detox standpoint. She is from [facility] and I left information for CD IOP at [facility] in her discharge instruction that she can follow up with them. Gilbert Sweet MD Addiction Medicine 08/04/2020 at 9:48 AM Associated attestation - Grabiel Ash MD - 08/04/2020 12:14 PM EST Patient seen and examined by me. Discussed patient with the resident. Agree with assessment and plan as written. I spent over 51% of total time of 35 minutes counseling and coordinating care and provided discussion regarding this patient's condition ,chemical dependency, psychiatric and medical history, symptoms and signs , reviewing past detoxification hospitalizations, assessing withdrawal status, evaluating detoxification medications, and discussing lab work and treatment plan, with providing options. GRABIEL ASH MD 08/04/20 12:14 PM * Shane Pisano - 08/03/2020 2:40 PM EST Nutrition rescreen completed. Chart reviewed. Patient to be monitored and followed by the diet radiochemical technician. PAIGE Dotson * Cris Gomez RN - 08/03/2020 2:[address] Rylan pratt regarding pt return to [facility] documented in this encounter Assessments Diagnosis Hiatal hernia Diaphragmatic hernia without mention of obstruction or gangrene Intractable abdominal pain Abdominal pain, unspecified site ETOH abuse Alcohol abuse, unspecified HTN (hypertension) Unspecified essential hypertension HLD (hyperlipidemia) Other and unspecified hyperlipidemia FADY (obstructive sleep apnea) Obstructive sleep apnea (adult) (pediatric) Hypomagnesemia Disorders of magnesium metabolism Chief Complaint and Reason for Visit Chief Complaint REX KN PAIN/PT HAS R X chest pain 6 m fu ER REF-ESOPHO SPASMS 2 Week f/u BLUE TOES / Cyanosis Reason for Visit Essential (primary) hypertension Paroxysmal atrial fibrillation Esophageal spasm Fatty liver GERD (gastroesophageal reflux disease) Alcohol abuse Esophageal spasm Fatty liver GERD (gastroesophageal reflux disease) Alcohol abuse Chief Complaint chest pain 6 m fu ER REF-ESOPHO SPASMS 2 Week f/u BLUE TOES / Cyanosis PVD 2 WK FU DETOX Reason for Visit Essential (primary) hypertension Paroxysmal atrial fibrillation Esophageal spasm Fatty liver GERD (gastroesophageal reflux disease) Alcohol abuse Esophageal spasm Fatty liver GERD (gastroesophageal reflux disease) Alcohol abuse Extremity cyanosis Fatty liver GERD (gastroesophageal reflux disease) Tubular adenoma of colon Alcohol abuse Morbid obesity with BMI of 40.0-44.9, adult Acute foot pain Alcohol abuse Chief Complaint chest pain 6 m fu ER REF-ESOPHO SPASMS 2 Week f/u BLUE TOES / Cyanosis PVD 2 WK FU DETOX DETOX Reason for Visit Essential (primary) hypertension Paroxysmal atrial fibrillation Esophageal spasm Fatty liver GERD (gastroesophageal reflux disease) Alcohol abuse Esophageal spasm Fatty liver GERD (gastroesophageal reflux disease) Alcohol abuse Extremity cyanosis Fatty liver GERD (gastroesophageal reflux disease) Tubular adenoma of colon Alcohol abuse Morbid obesity with BMI of 40.0-44.9, adult Acute foot pain Alcohol abuse Chief Complaint chest pain 6 m fu ER REF-ESOPHO SPASMS 2 Week f/u BLUE TOES / Cyanosis PVD 2 WK FU DETOX ALCOHOL WITHDRAWAL, ALCOHOLIC DETOX ALCOHOL WITHDRAWAL, ALCOHOLIC ALCOHOL WITHDRAWAL, ALCOHOLIC Reason for Visit Essential (primary) hypertension Paroxysmal atrial fibrillation Esophageal spasm Fatty liver GERD (gastroesophageal reflux disease) Alcohol abuse Esophageal spasm Fatty liver GERD (gastroesophageal reflux disease) Alcohol abuse Extremity cyanosis Fatty liver GERD (gastroesophageal reflux disease) Tubular adenoma of colon Alcohol abuse Morbid obesity with BMI of 40.0-44.9, adult Acute foot pain Fatty liver Alcohol abuse Chief Complaint chest pain 6 m fu ER REF-ESOPHO SPASMS 2 Week f/u BLUE TOES / Cyanosis PVD 2 WK FU DETOX ALCOHOL WITHDRAWAL, ALCOHOLIC DETOX ALCOHOL WITHDRAWAL, ALCOHOLIC ALCOHOL WITHDRAWAL, ALCOHOLIC ALCOHOL WITHDRAWAL, ALCOHOLIC CIRCULATION ISSUES Reason for Visit Essential (primary) hypertension Paroxysmal atrial fibrillation Esophageal spasm GERD (gastroesophageal reflux disease) Alcohol abuse Fatty liver Esophageal spasm GERD (gastroesophageal reflux disease) Alcohol abuse Fatty liver Extremity cyanosis GERD (gastroesophageal reflux disease) Tubular adenoma of colon Alcohol abuse Fatty liver Morbid obesity with BMI of 40.0-44.9, adult Acute foot pain Alcohol abuse Fatty liver Venous insufficiency Essential (primary) hypertension Paroxysmal atrial fibrillation Secondary pulmonary arterial hypertension Chief Complaint ER REF-ESOPHO SPASMS 2 Week f/u BLUE TOES / Cyanosis PVD 2 WK FU DETOX ALCOHOL WITHDRAWAL, ALCOHOLIC DETOX ALCOHOL WITHDRAWAL, ALCOHOLIC ALCOHOL WITHDRAWAL, ALCOHOLIC ALCOHOL WITHDRAWAL, ALCOHOLIC CIRCULATION ISSUES EORDER Reason for Visit Esophageal spasm GERD (gastroesophageal reflux disease) Alcohol abuse Fatty liver Esophageal spasm GERD (gastroesophageal reflux disease) Alcohol abuse Fatty liver Extremity cyanosis GERD (gastroesophageal reflux disease) Tubular adenoma of colon Alcohol abuse Fatty liver Morbid obesity with BMI of 40.0-44.9, adult Acute foot pain Alcohol abuse Fatty liver Venous insufficiency Essential (primary) hypertension Paroxysmal atrial fibrillation Secondary pulmonary arterial hypertension Chief Complaint 2 Week f/u BLUE TOES / Cyanosis PVD 2 WK FU DETOX ALCOHOL WITHDRAWAL, ALCOHOLIC DETOX ALCOHOL WITHDRAWAL, ALCOHOLIC ALCOHOL WITHDRAWAL, ALCOHOLIC ALCOHOL WITHDRAWAL, ALCOHOLIC CIRCULATION ISSUES EORDER FU HYPERTENSION Reason for Visit Esophageal spasm GERD (gastroesophageal reflux disease) Alcohol abuse Fatty liver GERD (gastroesophageal reflux disease) Tubular adenoma of colon Alcohol abuse Fatty liver Morbid obesity with BMI of 40.0-44.9, adult Alcohol abuse Fatty liver Essential (primary) hypertension Paroxysmal atrial fibrillation Secondary pulmonary arterial hypertension Liver fibrosis Chief Complaint BLUE TOES / Cyanosis PVD 2 WK FU DETOX ALCOHOL WITHDRAWAL, ALCOHOLIC DETOX ALCOHOL WITHDRAWAL, ALCOHOLIC ALCOHOL WITHDRAWAL, ALCOHOLIC ALCOHOL WITHDRAWAL, ALCOHOLIC CIRCULATION ISSUES EORDER FU HYPERTENSION 6 M FU laceration Reason for Visit GERD (gastroesophage al reflux disease) Tubular adenoma of colon Alcohol abuse Fatty liver Morbid obesity with BMI of 40.0-44.9, adult Alcohol abuse Fatty liver Essential (primary) hypertension Paroxysmal atrial fibrillation Pulmonary hypertension Secondary pulmonary arterial hypertension Liver fibrosis Essential (primary) hypertension Paroxysmal atrial fibrillation Pulmonary hypertension Secondary pulmonary arterial hypertension Chief Complaint DETOX ALCOHOL WITHDRAWAL, ALCOHOLIC DETOX ALCOHOL WITHDRAWAL, ALCOHOLIC ALCOHOL WITHDRAWAL, ALCOHOLIC ALCOHOL WITHDRAWAL, ALCOHOLIC CIRCULATION ISSUES EORDER FU HYPERTENSION 6 M FU laceration CHEST PAIN Reason for Visit Alcohol abuse Fatty liver Essential (primary) hypertension Paroxysmal atrial fibrillation Pulmonary hypertension Secondary pulmonary arterial hypertension Liver fibrosis Essential (primary) hypertension Paroxysmal atrial fibrillation Pulmonary hypertension Secondary pulmonary arterial hypertension Acute dyspnea Atrial fibrillation with rapid ventricular response Chest pain Chief Complaint DETOX ALCOHOL WITHDRAWAL, ALCOHOLIC DETOX ALCOHOL WITHDRAWAL, ALCOHOLIC ALCOHOL WITHDRAWAL, ALCOHOLIC ALCOHOL WITHDRAWAL, ALCOHOLIC CIRCULATION ISSUES EORDER FU HYPERTENSION 6 M FU laceration A FIB WITH RVR CHEST PAIN CHEST PAIN A FIB WITH RVR A FIB WITH RVR A FIB WITH RVR A FIB WITH RVR Reason for Visit Alcohol abuse Fatty liver Essential (primary) hypertension Paroxysmal atrial fibrillation Pulmonary hypertension Secondary pulmonary arterial hypertension Liver fibrosis Essential (primary) hypertension Paroxysmal atrial fibrillation Pulmonary hypertension Secondary pulmonary arterial hypertension Acute dyspnea Alcohol use Atrial fibrillation with rapid ventricular response Chest pain Heart failure with preserved ejection fraction Panic attack Essential (primary) hypertension Paroxysmal atrial fibrillation Pulmonary hypertension Chief Complaint DETOX ALCOHOL WITHDRAWAL, ALCOHOLIC ALCOHOL WITHDRAWAL, ALCOHOLIC ALCOHOL WITHDRAWAL, ALCOHOLIC CIRCULATION ISSUES EORDER FU HYPERTENSION 6 M FU laceration A FIB WITH RVR CHEST PAIN CHEST PAIN A FIB WITH RVR A FIB WITH RVR A FIB WITH RVR A FIB WITH RVR A FIB WITH RVR A FIB WITH RVR NEAR SYNCOPE Reason for Visit Essential (primary) hypertension Paroxysmal atrial fibrillation Pulmonary hypertension Secondary pulmonary arterial hypertension Liver fibrosis Essential (primary) hypertension Paroxysmal atrial fibrillation Pulmonary hypertension Secondary pulmonary arterial hypertension Acute dyspnea Alcohol use Atrial fibrillation with rapid ventricular response Chest pain Heart failure with preserved ejection fraction Panic attack Essential (primary) hypertension Paroxysmal atrial fibrillation Pulmonary hypertension Atrial flutter Chest pain Near syncope Chief Complaint ALCOHOL WITHDRAWAL, ALCOHOLIC ALCOHOL WITHDRAWAL, ALCOHOLIC CIRCULATION ISSUES EORDER FU HYPERTENSION 6 M FU laceration A FIB WITH RVR CHEST PAIN CHEST PAIN A FIB WITH RVR A FIB WITH RVR A FIB WITH RVR A FIB WITH RVR A FIB WITH RVR A FIB WITH RVR NEAR SYNCOPE NEAR SYNCOPE NEAR SYNCOPE NEAR SYNCOPE NEAR SYNCOPE NEAR SYNCOPE Reason for Visit Essential (primary) hypertension Paroxysmal atrial fibrillation Pulmonary hypertension Secondary pulmonary arterial hypertension Liver fibrosis Essential (primary) hypertension Paroxysmal atrial fibrillation Pulmonary hypertension Secondary pulmonary arterial hypertension Acute dyspnea Alcohol use Atrial fibrillation with rapid ventricular response Chest pain Heart failure with preserved ejection fraction Panic attack Essential (primary) hypertension Paroxysmal atrial fibrillation Pulmonary hypertension Atrial flutter Chest pain Heart failure with preserved ejection fraction Near syncope Essential (primary) hypertension Paroxysmal atrial fibrillation Secondary pulmonary arterial hypertension Chief Complaint FU HYPERTENSION 6 M FU laceration A FIB WITH RVR CHEST PAIN CHEST PAIN A FIB WITH RVR A FIB WITH RVR A FIB WITH RVR A FIB WITH RVR A FIB WITH RVR A FIB WITH RVR NEAR SYNCOPE NEAR SYNCOPE NEAR SYNCOPE NEAR SYNCOPE NEAR SYNCOPE NEAR SYNCOPE 1 WK EKG POST DCCV E-ORDER Syncope, atrial fib RVR L.[place] Reason for Visit Liver fibrosis Acute dyspnea Chest pain Chest pain Near syncope Non-ischemic cardiomyopathy PAF (paroxysmal atrial fibrillation) PFO (patent foramen ovale) Chronic kidney disease (CKD) HLD (hyperlipidemia) Secondary pulmonary arterial hypertension Chief Complaint FU HYPERTENSION 6 M FU laceration A FIB WITH RVR CHEST PAIN CHEST PAIN A FIB WITH RVR A FIB WITH RVR A FIB WITH RVR A FIB WITH RVR A FIB WITH RVR A FIB WITH RVR NEAR SYNCOPE NEAR SYNCOPE NEAR SYNCOPE NEAR SYNCOPE NEAR SYNCOPE NEAR SYNCOPE 1 WK EKG POST DCCV E-ORDER Syncope, atrial fib RVR L.[place]orson eorders Reason for Visit Liver fibrosis Acute dyspnea Chest pain Chest pain Near syncope Non-ischemic cardiomyopathy PAF (paroxysmal atrial fibrillation) PFO (patent foramen ovale) Chronic kidney disease (CKD) HLD (hyperlipidemia) Secondary pulmonary arterial hypertension Chief Complaint 6 M FU laceration A FIB WITH RVR CHEST PAIN CHEST PAIN A FIB WITH RVR A FIB WITH RVR A FIB WITH RVR A FIB WITH RVR A FIB WITH RVR A FIB WITH RVR NEAR SYNCOPE NEAR SYNCOPE NEAR SYNCOPE NEAR SYNCOPE NEAR SYNCOPE NEAR SYNCOPE 1 WK EKG POST DCCV E-ORDER Syncope, atrial fib RVR L.Lorson eorders 6 wk FU INT LABS Reason for Visit Acute dyspnea Chest pain Chest pain Near syncope Non-ischemic cardiomyopathy PAF (paroxysmal atrial fibrillation) PFO (patent foramen ovale) Chronic kidney disease (CKD) HLD (hyperlipidemia) Secondary pulmonary arterial hypertension Non-ischemic cardiomyopathy PAF (paroxysmal atrial fibrillation) PFO (patent foramen ovale) Chronic kidney disease (CKD) HLD (hyperlipidemia) Secondary pulmonary arterial hypertension Chief Complaint laceration A FIB WITH RVR CHEST PAIN CHEST PAIN A FIB WITH RVR A FIB WITH RVR A FIB WITH RVR A FIB WITH RVR A FIB WITH RVR A FIB WITH RVR NEAR SYNCOPE NEAR SYNCOPE NEAR SYNCOPE NEAR SYNCOPE NEAR SYNCOPE NEAR SYNCOPE 1 WK EKG POST DCCV E-ORDER Syncope, atrial fib RVR L.[place]orson eorders 6 wk FU INT LABS LIVER FIBROSIS Reason for Visit Acute dyspnea Chest pain Chest pain Near syncope Non-ischemic cardiomyopathy PAF (paroxysmal atrial fibrillation) PFO (patent foramen ovale) Chronic kidney disease (CKD) HLD (hyperlipidemia) Secondary pulmonary arterial hypertension Non-ischemic cardiomyopathy PAF (paroxysmal atrial fibrillation) PFO (patent foramen ovale) Chronic kidney disease (CKD) HLD (hyperlipidemia) Secondary pulmonary arterial hypertension Chief Complaint A FIB WITH RVR CHEST PAIN CHEST PAIN A FIB WITH RVR A FIB WITH RVR A FIB WITH RVR A FIB WITH RVR A FIB WITH RVR A FIB WITH RVR NEAR SYNCOPE NEAR SYNCOPE NEAR SYNCOPE NEAR SYNCOPE NEAR SYNCOPE NEAR SYNCOPE 1 WK EKG POST DCCV E-ORDER Syncope, atrial fib RVR L.[place]orson eorders 6 wk FU INT LABS LIVER FIBROSIS 5 MO FU 2 M FU EORDERS RESP FAILURE, POSS CHF EXAC/COPD EXAC, BRONCHITIS Reason for Visit Acute dyspnea Chest pain Chest pain Near syncope Non-ischemic cardiomyopathy PAF (paroxysmal atrial fibrillation) PFO (patent foramen ovale) Chronic kidney disease (CKD) HLD (hyperlipidemia) Secondary pulmonary arterial hypertension Non-ischemic cardiomyopathy PAF (paroxysmal atrial fibrillation) PFO (patent foramen ovale) Chronic kidney disease (CKD) HLD (hyperlipidemia) Secondary pulmonary arterial hypertension Liver fibrosis HTN (hypertension), benign Non-ischemic cardiomyopathy PAF (paroxysmal atrial fibrillation) PFO (patent foramen ovale) Chronic kidney disease (CKD) HLD (hyperlipidemia) Secondary pulmonary arterial hypertension Chief Complaint 1 WK EKG POST DCCV E-ORDER Syncope, atrial fib RVR L.Lorson eorders 6 wk FU INT LABS LIVER FIBROSIS 5 MO FU 2 M FU EORDERS RESP FAILURE, POSS CHF EXAC/COPD EXAC, BRONCHITIS RESP FAILURE, POSS CHF EXAC/COPD EXAC, BRONCHITIS RESP FAILURE, POSS CHF EXAC/COPD EXAC, BRONCHITIS RESP FAILURE, POSS CHF EXAC/COPD EXAC, BRONCHITIS RESP FAILURE, POSS CHF EXAC/COPD EXAC, BRONCHITIS b/l lower leg pain Reason for Visit Non-ischemic cardiom yopathy PAF (paroxysmal atrial fibrillation) PFO (patent foramen ovale) Chronic kidney disease (CKD) HLD (hyperlipidemia) Secondary pulmonary arterial hypertension Non-ischemic cardiomyopathy PAF (paroxysmal atrial fibrillation) PFO (patent foramen ovale) Chronic kidney disease (CKD) HLD (hyperlipidemia) Secondary pulmonary arterial hypertension Liver fibrosis HTN (hypertension), benign Non-ischemic cardiomyopathy PAF (paroxysmal atrial fibrillation) PFO (patent foramen ovale) Chronic kidney disease (CKD) HLD (hyperlipidemia) Secondary pulmonary arterial hypertension Acute respiratory failure with hypoxia Chief Complaint eorders 6 wk FU INT LABS LIVER FIBROSIS 5 MO FU 2 M FU EORDERS RESP FAILURE, POSS CHF EXAC/COPD EXAC, BRONCHITIS RESP FAILURE, POSS CHF EXAC/COPD EXAC, BRONCHITIS CP RESP FAILURE, POSS CHF EXAC/COPD EXAC, BRONCHITIS AM EKG RESP FAILURE, POSS CHF EXAC/COPD EXAC, BRONCHITIS RESP FAILURE, POSS CHF EXAC/COPD EXAC, BRONCHITIS b/l lower leg pain CHEST PAIN Reason for Visit Non-ischemic cardiom yopathy PAF (paroxysmal atrial fibrillation) PFO (patent foramen ovale) Chronic kidney disease (CKD) HLD (hyperlipidemia) Secondary pulmonary arterial hypertension Liver fibrosis HTN (hypertension), benign Non-ischemic cardiomyopathy PAF (paroxysmal atrial fibrillation) PFO (patent foramen ovale) Chronic kidney disease (CKD) HLD (hyperlipidemia) Secondary pulmonary arterial hypertension Acute respiratory failure with hypoxia Chief Complaint 6 wk FU INT LABS LIVER FIBROSIS 5 MO FU 2 M FU EORDERS RESP FAILURE, POSS CHF EXAC/COPD EXAC, BRONCHITIS RESP FAILURE, POSS CHF EXAC/COPD EXAC, BRONCHITIS CP RESP FAILURE, POSS CHF EXAC/COPD EXAC, BRONCHITIS AM EKG RESP FAILURE, POSS CHF EXAC/COPD EXAC, BRONCHITIS RESP FAILURE, POSS CHF EXAC/COPD EXAC, BRONCHITIS b/l lower leg pain CHEST PAIN Reason for Visit Non-ischemic cardiom yopathy PAF (paroxysmal atrial fibrillation) PFO (patent foramen ovale) Chronic kidney disease (CKD) HLD (hyperlipidemia) Secondary pulmonary arterial hypertension Liver fibrosis HTN (hypertension), benign Non-ischemic cardiomyopathy PAF (paroxysmal atrial fibrillation) PFO (patent foramen ovale) Chronic kidney disease (CKD) HLD (hyperlipidemia) Secondary pulmonary arterial hypertension Acute respiratory failure with hypoxia Chief Complaint 6 wk FU INT LABS LIVER FIBROSIS 5 MO FU 2 M FU EORDERS RESP FAILURE, POSS CHF EXAC/COPD EXAC, BRONCHITIS RESP FAILURE, POSS CHF EXAC/COPD EXAC, BRONCHITIS CP RESP FAILURE, POSS CHF EXAC/COPD EXAC, BRONCHITIS AM EKG RESP FAILURE, POSS CHF EXAC/COPD EXAC, BRONCHITIS RESP FAILURE, POSS CHF EXAC/COPD EXAC, BRONCHITIS b/l lower leg pain CHEST PAIN 6-8 WK F/U Reason for Visit Non-ischemic cardiom yopathy PAF (paroxysmal atrial fibrillation) PFO (patent foramen ovale) Chronic kidney disease (CKD) HLD (hyperlipidemia) Secondary pulmonary arterial hypertension Liver fibrosis HTN (hypertension), benign Non-ischemic cardiomyopathy PAF (paroxysmal atrial fibrillation) PFO (patent foramen ovale) Chronic kidney disease (CKD) HLD (hyperlipidemia) Secondary pulmonary arterial hypertension Acute respiratory failure with hypoxia HTN (hypertension), benign Non-ischemic cardiomyopathy PAF (paroxysmal atrial fibrillation) PFO (patent foramen ovale) Chronic kidney disease (CKD) HLD (hyperlipidemia) Secondary pulmonary arterial hypertension Chief Complaint 2 M FU EORDERS RESP FAILURE, POSS CHF EXAC/COPD EXAC, BRONCHITIS RESP FAILURE, POSS CHF EXAC/COPD EXAC, BRONCHITIS CP RESP FAILURE, POSS CHF EXAC/COPD EXAC, BRONCHITIS AM EKG RESP FAILURE, POSS CHF EXAC/COPD EXAC, BRONCHITIS RESP FAILURE, POSS CHF EXAC/COPD EXAC, BRONCHITIS b/l lower leg pain CHEST PAIN 6-8 WK F/U ABD PAIN EORDER- ongoing cough; rule out pneumonia Reason for Visit HTN (hypertension), benign Non-ischemic cardiomyopathy PAF (paroxysmal atrial fibrillation) PFO (patent foramen ovale) Chronic kidney disease (CKD) HLD (hyperlipidemia) Secondary pulmonary arterial hypertension Acute respiratory failure with hypoxia HTN (hypertension), benign Non-ischemic cardiomyopathy PAF (paroxysmal atrial fibrillation) PFO (patent foramen ovale) Chronic kidney disease (CKD) HLD (hyperlipidemia) Secondary pulmonary arterial hypertension Chief Complaint 2 M FU EORDERS RESP FAILURE, POSS CHF EXAC/COPD EXAC, BRONCHITIS RESP FAILURE, POSS CHF EXAC/COPD EXAC, BRONCHITIS CP RESP FAILURE, POSS CHF EXAC/COPD EXAC, BRONCHITIS AM EKG RESP FAILURE, POSS CHF EXAC/COPD EXAC, BRONCHITIS RESP FAILURE, POSS CHF EXAC/COPD EXAC, BRONCHITIS b/l lower leg pain CHEST PAIN 6-8 WK F/U ABD PAIN EORDER- ongoing cough; rule out pneumonia HEP FIBROSIS/ 2 ORDERING DOCTORS Reason for Visit HTN (hypertension), benign Non-ischemic cardiomyopathy PAF (paroxysmal atrial fibrillation) PFO (patent foramen ovale) Chronic kidney disease (CKD) HLD (hyperlipidemia) Secondary pulmonary arterial hypertension Acute respiratory failure with hypoxia HTN (hypertension), benign Non-ischemic cardiomyopathy PAF (paroxysmal atrial fibrillation) PFO (patent foramen ovale) Chronic kidney disease (CKD) HLD (hyperlipidemia) Secondary pulmonary arterial hypertension Chief Complaint 1 Y FU WORSENING RESPIRATORY FAILURE WITH HYPOXIA Reason for Visit HTN (hypertension), benign Non-ischemic cardiomyopathy PAF (paroxysmal atrial fibrillation) PFO (patent foramen ovale) Chronic kidney disease (CKD) HLD (hyperlipidemia) Secondary pulmonary arterial hypertension Atypical pneumonia HFrEF (heart failure with reduced ejection fraction) Hypoxemia Non-ischemic cardiomyopathy Secondary pulmonary arterial hypertension Chief Complaint 1 Y FU WORSENING RESPIRATORY FAILURE WITH HYPOXIA WORSENING RESPIRATORY FAILURE WITH HYPOXIA WORSENING RESPIRATORY FAILURE WITH HYPOXIA Reason for Visit HTN (hypertension), benign Non-ischemic cardiomyopathy PAF (paroxysmal atrial fibrillation) PFO (patent foramen ovale) Chronic kidney disease (CKD) HLD (hyperlipidemia) Secondary pulmonary arterial hypertension Atypical pneumonia HFrEF (heart failure with reduced ejection fraction) HTN (hypertension), benign Hypoxemia Non-ischemic cardiomyopathy Morbid obesity with BMI of 40.0-44.9, adult Secondary pulmonary arterial hypertension Chief Complaint 1 Y FU WORSENING RESPIRATORY FAILURE WITH HYPOXIA WORSENING RESPIRATORY FAILURE WITH HYPOXIA WORSENING RESPIRATORY FAILURE WITH HYPOXIA EORDER Reason for Visit HTN (hypertension), benign Non-ischemic cardiomyopathy PAF (paroxysmal atrial fibrillation) PFO (patent foramen ovale) Chronic kidney disease (CKD) HLD (hyperlipidemia) Secondary pulmonary arterial hypertension Atypical pneumonia HFrEF (heart failure with reduced ejection fraction) HTN (hypertension), benign Hypoxemia Non-ischemic cardiomyopathy Morbid obesity with BMI of 40.0-44.9, adult Secondary pulmonary arterial hypertension Chief Complaint WORSENING RESPIRATOR Y FAILURE WITH HYPOXIA WORSENING RESPIRATORY FAILURE WITH HYPOXIA WORSENING RESPIRATORY FAILURE WITH HYPOXIA EORDER S/P [facility] 06/26 HFrEF & CARDIOMYOPATHY Reason for Visit Atypical pneumonia HFrEF (heart failure with reduced ejection fraction) HTN (hypertension), benign Hypoxemia Non-ischemic cardiomyopathy Morbid obesity with BMI of 40.0-44.9, adult Secondary pulmonary arterial hypertension HTN (hypertension), benign Non-ischemic cardiomyopathy PAF (paroxysmal atrial fibrillation) PFO (patent foramen ovale) Chronic kidney disease (CKD) HLD (hyperlipidemia) Secondary pulmonary arterial hypertension Chief Complaint S/P [facility] 06/26 HFrEF & CARDIOMYOPATHY 6 mo fu 1ST VISIT 60 CHF Reason for Visit HTN (hypertension), benign Non-ischemic cardiomyopathy PAF (paroxysmal atrial fibrillation) PFO (patent foramen ovale) Chronic kidney disease (CKD) HLD (hyperlipidemia) Secondary pulmonary arterial hypertension Morbid obesity with BMI of 40.0-44.9, adult NAFLD (nonalcoholic fatty liver disease) Right-sided heart failure Chief Complaint 6 mo fu 1ST VISIT 58 CHF Fatty (change of) liver, not elsewhere classified Reason for Visit Morbid obesity with BMI of 40.0-44.9, adult NAFLD (nonalcoholic fatty liver disease) Right-sided heart failure Chief Complaint Admit Date NEED ORDER September 17, 2024 4 :11pm 4 M FU September 27, 2024 7 :50am ACUTE CONGESTIVE HEART FAILURE September 022024 10:41am ACUTE CONGESTIVE HEART FAILURE September 022024 9:45am ACUTE CONGESTIVE HEART FAILURE September 022024 3:20pm S/P 09/28 CHF November 05, 2024 3:38 pm STANDING ORDER November 05, 2024 4:32 pm Reason for Visit Admit Date Diarrhea September 27, 2024 7 :50am Alcoholic fatty liver September 27, 2024 7:50am Metabolic dysfunction-associ ated steatotic liver disease (MASLD) September 27, 2024 7:50am HTN (hypertension), benign September 27, 2024 10:41am snf current use of anticoagulant J anuary 2024 10:41am Non-ischemic cardiomyopathy September 10:41am PAF (paroxysmal atrial fibrillation) Huber gimenez 2024 10:41am Alcoholic fatty liver September 27, 2024 10:41am Fatty liver September 27, 2024 1 0:41am HLD (hyperlipidemia) September 27, 2024 10:41am Metabolic dysfunction-associ ated steatotic liver disease (MASLD) September 27, 2024 10:41am Right-sided heart failure September 27, 2024 10:41am Secondary pulmonary arterial hypertensio n September 27, 2024 10:41am Acute exacerbation of CHF (congestive he art failure) September 27, 2024 10:41am HTN (hypertension), benign November 05 3:38pm Lymphedema November 05, 2024 3:38 pm Non-ischemic cardiomyopathy November 05, 2 025 3:38pm PAF (paroxysmal atrial fibrillation) Oct 3:38pm Chronic kidney disease (CKD) November 05, 2024 3:38pm HLD (hyperlipidemia) November 05, 2024 3:3 8pm Secondary pulmonary arterial hypertensio n November 05, 2024 3:38pm Venous insufficiency (chronic) (peripher al) November 05, 2024 3:38pm Chief Complaint Admit Date NEED ORDER September 17, 2024 4 :11pm 4 M FU September 27, 2024 7 :50am ACUTE CONGESTIVE HEART FAILURE September 022024 10:41am ACUTE CONGESTIVE HEART FAILURE September 022024 9:45am ACUTE CONGESTIVE HEART FAILURE September 022024 3:20pm S/P 09/28 CHF November 05, 2024 3:38 pm STANDING ORDER November 05, 2024 4:32 pm E ORDERS December 07, 2024 8:01 am STANDING ORDER December 09, 2024 8:0 3am Chief Complaint Admit Date S/P 09/28 CHF November 05, 2024 3:38 pm STANDING ORDER November 05, 2024 4:32 pm E ORDERS December 07, 2024 8:01 am STANDING ORDER December 14, 2024 7:5 8am Follow up February 08, 2025 7:47 am Reason for Visit Admit Date HTN (hypertension), benign November 05 3:38pm Lymphedema November 05, 2024 3:38 pm Non-ischemic cardiomyopathy November 05, 025 3:38pm PAF (paroxysmal atrial fibrillation) Oct 3:38pm Chronic kidney disease (CKD) November 05, 2024 3:38pm HLD (hyperlipidemia) November 05, 2024 3:3 8pm Secondary pulmonary arterial hypertensio n November 05, 2024 3:38pm Venous insufficiency (chronic) (peripher al) November 05, 2024 3:38pm Alcoholic fatty liver February 08, 2025 7: 47am Metabolic dysfunction-associ ated steatotic liver disease (MASLD) February 08, 2025 7:47am Chief Complaint Admit Date Follow up February 08, 2025 7:47 am 6 M FU May 20, 2025 3:47pm Reason for Visit Admit Date Alcoholic fatty liver February 08, 2025 7: 47am Metabolic dysfunction-associ ated steatotic liver disease (MASLD) February 08, 2025 7:47am HTN (hypertension), benign May 3:47pm Lymphedema May 20, 2025 3:47pm Non-ischemic cardiomyopathy May 202024 3:47pm PAF (paroxysmal atrial fibrillation) Sep tember 2024 3:47pm Chronic kidney disease (CKD) May 022024 3:47pm HLD (hyperlipidemia) May 20 3:47pm Secondary pulmonary arterial hypertensio n May 20, 2025 3:47pm Venous insufficiency (chronic) (peripher al) May 20, 2025 3:47pm Reason for Referral Specialty Diagnoses / Procedures Referred By Sunita yen Referred To Contact Diagnoses Severe pulmonary hypertension (HCC) Anti-phospholipid antibody syndrome (HCC) Mili Moncada MD [address] [place] [address] Melanie Posadas MD [address] [place] [address] Referral ID Status Reason Start Date Expiration Date V isits Requested Visits Authorized [id number] Closed Specialty Services Required/Rosalee ent's Best Interest 10/17/2022 10/17/2023 1 1 Medications Administered Section Inactive Administered Medications - up to 3 most recent administrations Medication Order MAR Action Action Date Dose Rate Site betamethasone acetate-betamethasone sodium phosphate 6 mg injection (CELESTONE) 6 mg, Injection - FOR ORTHO USE ONLY, ONE TIME INJECTION, 1 dose, Starting on [place] 01/09/23 at 1209, Until [place] 01/09/23 at 1209 Given 01/09/2023 12:09 PM EDT 6 mg Shoulder, Left lidocaine (PF) 10 mg/mL (1 %) 4 mL injection (XYLOCAINE) 4 mL, Injection - FOR ORTHO USE ONLY, ONE TIME INJECTION, 1 dose, Starting on [place] 01/09/23 at 1209, Until [place] 01/09/23 at 1209 Given 01/09/2023 12:09 PM EDT 4 mL Shoulder, Left Additional Source Comments INFORMATION SOURCE (unrecogn ized section and content) DATE CREATED AUTHOR 02/08/2019 [facility] DATE CREATED AUTHOR AUTHOR'S ORGANIZ ATION 11/11/2019 [facility] DATE CREATED AUTHOR AUTHOR'S ORGANIZ ATION 07/23/2021 [facility] DATE CREATED AUTHOR AUTHOR'S ORGANIZ ATION [facility]20[facility] DATE CREATED AUTHOR AUTHOR'S ORGANIZ ATION 12/10/2023 [facility] DATE CREATED AUTHOR AUTHOR'S ORGANIZ ATION 01/13/2025 [facility] DATE CREATED AUTHOR AUTHOR'S ORGANIZ ATION 06/15/2025 [facility] DATE CREATED AUTHOR AUTHOR'S ORGANIZ ATION [facility] Reason for Visit (unrecogniz ed section and content) Reason Comments Abdominal Pain Patient stated she s tarted having ABD pain friday on the right side. Patient states that she is distended. Patient has a history of hernias. Patient was sent here from [facility] for fluid in the abdomen and further evaulation. Reason Comments New PH Referral Reason Comments Spirometry Specialty Diagnoses / Procedures Referred By Sunita yen Referred To Contact [facility] Diagnoses Pulmonary hypertension (HCC) Procedures SPIROMETRY WITH DILATOR IF OBSTRUCTED BRNCDILAT RSPSE SPMTRY PRE&POST-BRNCDILAT ADMN Shane Clemons, FUNCTIONAL TESTER.[facility] [address] [place] [address] Respiratory Malin [address] [place] [address] Referral ID Status Reason Start Date Expiration Date V isits Requested Visits Authorized [id number] Closed Auto-Generate d Referral 11/01/2022 12/01/2023 1 1 Reason Onset Date Comments Medication Refill 12/23/2022 Reason Comments Established Patient Last seen 09/27/21 Right 5th MC fracture Reason Comments New Patient Reason Onset Date Comments Medication Refill 01/06/2024 Reason Onset Date Comments Medication Refill 01/08/2024 Reason Onset Date Comments Medication Refill 06/07/2025 Ordered Prescriptions (unrec ognized section and content) Prescription Sig Dispensed Refills Start Date End Da te oxyCODONE-acetaminophen (PERCOCET) 5-325 MG per tabletIndications:Hiatal hernia Take 1 tablet by mouth every 6 hours as needed for Pain for up to 2 days. Intended supply: 3 days. Take lowest dose possible to manage pain 8 tablet 0 01/20/2021 01/22/2021 oxyCODONE-acetaminophen (PERCOCET) 5-325 MG per tabletIndications:Hiatal hernia Take 1 tablet by mouth every 6 hours as needed for Pain for up to 5 days. Intended supply: 5 days. Take lowest dose possible to manage pain 15 tablet 0 01/18/2021 01/23/2021 Scheduled Active and Recently Administ ered Medications (unrecognized section and content) Medication Order 01/18/2021 01/19/2021 01/20/2021 0.9 % sodium chloride bolus (COMPLETED) 500 mL (4.36 mL/kg), Intravenous, at 1,000 mL/hr, Administer over 0.5 Hours, ONCE, On Fri01/19/21 at 0600, For 1 dose 0709 (New Bag - Provider: Anya Huitron, CATHIE)0739 (Stopped - Provider: Carolin Roberts RN) albuterol (PROVENTIL) nebulizer solution 2.5 mg (CANCELED) 2.5 mg, Nebulization, 4 TIMES DAILY, First dose on Fri01/18/21 at 1999 1817 (Given - Provider: CLAUDIA MATHEWS) 0950 (Given - Provider: Deepthi Robb)1349 (Given - Provider: Deepthi Robb) albuterol sulfate HFA 108 (90 Base) MCG/ACT inhaler 1 puff 1 puff, Inhalation, 4 TIMES DAILY, First dose on Fri01/18/21 at 1999 2049 (Given - Provider: Anya Huitron RN) 1200 (Not Given - Provider: Carolin Roberts RN - Reason: Patient/family refused)1752 (Not Given - Provider: Carolin Roberts RN - Reason: Patient/family refused)1811 (Not Given - Provider: Carolin Roberts RN - Reason: Patient/family refused)1999 (Due) 0902 (Not Given - Provider: Sadaf Tuttle RN - Reason: Patient/family refused)1200 (Held - Provider: Sadaf Tuttle RN - Reason: Patient/family refused)1600 (Due)1999 (Due) celecoxib (CELEBREX) capsule 400 mg (COMPLETED) 400 mg, Oral, ONCE, On Fri01/18/21 at 0600, For 1 dose, Pre-op (day of surgery) 0601 (Given - Provider: Eugenia Baez RN) enoxaparin (LOVENOX) injection 40 mg 40 mg, Subcutaneous, DAILY, First dose on Fri01/19/21 at 0900 0951 (Given - Provider: Carolin Roberts RN) 0904 (Given - Provider: Sadaf Tuttle RN) famotidine (PEPCID) tablet 20 mg (COMPLETED) 20 mg, Oral, ONCE, On [place] 01/18/21 at 0600, For 1 dose, Pre-op (day of surgery) 06 (Given - Provider: Eugenia Baez RN) flecainide (TAMBOCOR) tablet 100 mg 100 mg, Oral, 2 TIMES DAILY, First dose on Fri01/19/21 at 1230 1346 (Given - Provider: Carolin Roberts RN)2119 (Given - Provider: Chacho Richardson RN) 0909 (Given - Provider: Sadaf Tuttle, CATHIE)2100 (Due) fluticasone-umeclidin- vilant (TRELEGY ELLIPTA) 100-62.5-25 MCG/INH inhaler 1 puff 1 puff, Inhalation, DAILY, First dose (after last reorder) on [place] 01/18/21 at 1900, Rinse mouth out with water (without swallowing) after every dose. Patient's Own Medication Verified By DRW 1900 (Given - Provider: Aníbal Han RN) 0951 (Given - Provider: Carolin Roberts RN) 0903 (Given - Provider: Sadaf Tuttle, CATHIE) folic acid (FOLVITE) tablet 1 mg 1 mg, Oral, DAILY, First dose on Fri01/19/21 at 1230 1345 (Given - Provider: Carolin Roberts RN) 0904 (Given - Provider: Sadaf Tuttle, CATHIE) gabapentin (NEURONTIN) capsule 100 mg (COMPLETED) 100 mg, Oral, ONCE, On [place] 01/18/21 at 0600, For 1 dose, For Age >69, or Low GFR, Pre-op (day of surgery) 06 (Given - Provider: Eugenia Baez, CATHIE) heparin (porcine) injection 5,000 Units (COMPLETED) 5,000 Units, Subcutaneous, ONCE, On [place] 01/18/21 at 0600, For 1 dose, Pre-op (day of surgery) 06 (Given - Provider: Eugenia Baez, CATHIE) levothyroxine (SYNTHROID) tablet 25 mcg 25 mcg, Oral, DAILY, First dose on Fri01/19/21 at 1230, Tube feeding (TF) interaction, obtain physician order to manage, recommend holding TF for 30 minutes before and after dose. 1346 (Given - Provider: Carolin Roberts RN) 0601 (Given - Provider: Chacho Richardson RN) magnesium sulfate 2000 mg in 50 mL IVPB premix (COMPLETED) 2,000 mg, Intravenous, at 25 mL/hr, Administer over 2 Hours, ONCE, On Fri01/19/21 at 0600, For 1 dose, Recommended infusion rate not to exceed 1,000 mg (milligrams) per hour. 0741 (New Bag - Provider: Anya Huitron RN)0949 (Stopped - Provider: Carolin Roberts RN) metoprolol (LOPRESSOR) injection 5 mg (CANCELED) 5 mg, Intravenous, EVERY 6 HOURS, First dose on Fri01/18/21 at 1700, Hold for HR < 70 1803 (Not Given - Provider: Aníbal Han RN - Reason: Order parameters not met - Comment: hold HR<70)2330 (Not Given - Provider: Anya Huitron RN - Reason: Order parameters not met) 0709 (Given - Provider: Anya Huitron RN)1232 (Not Given - Provider: Carolin Roberts RN - Reason: Other - Comment: discontinued) metoprolol succinate (TOPROL XL) extended release tablet 50 mg 50 mg, Oral, DAILY, First dose on Fri01/19/21 at 1230, Do not crush or chew. 1345 (Given - Provider: Carolin Roberts RN) 0904 (Given - Provider: Sadaf Tuttle RN) montelukast (SINGULAIR) tablet 10 mg 10 mg, Oral, NIGHTLY, First dose on Fri01/19/21 at 2345 2348 (Given - Provider: Chacho Richardson, CATHIE) 2099 (Due) nortriptyline (PAMELOR) capsule 100 mg 100 mg, Oral, NIGHTLY, First dose on Fri01/19/21 at 2099 2118 (Given - Provider: Chacho Richardson, RN) 2099 (Due) rosuvastatin (CRESTOR) tablet 10 mg 10 mg, Oral, DAILY, First dose on Fri01/19/21 at 2099 2118 (Given - Provider: Chacho Richardson RN) 2099 (Due) sildenafil (REVATIO) tablet 20 mg 20 mg, Oral, 3 TIMES DAILY, First dose on Fri01/19/21 at 1400 1346 (Not Given - Provider: Carolin Roberts RN - Reason: Patient/family refused)2118 (Given - Provider: Chacho Richardson RN) 0910 (Given - Provider: Sadaf Tuttle RN)1529 (Not Given - Provider: Sadaf Tuttle RN - Reason: Patient not available)2099 (Due) sodium chloride flush 0.9 % injection 10 mL 10 mL, Intravenous, EVERY 12 HOURS SCHEDULED (2 times per day), First dose on [place] 01/18/21 at 2099 2048 (Given - Provider: Anya Huitron RN) 0949 (Not Given - Provider: Carolin Roberts RN - Reason: IV Fluid Infusing)2120 (Not Given - Provider: Chacho Richardson RN - Reason: IV Fluid Infusing) 0939 (Not Given - Provider: Sadaf Tuttle RN - Reason: IV Fluid Infusing)2099 (Due) sodium chloride flush 0.9 % injection 5-40 mL 5-40 mL, Intravenous, EVERY 12 HOURS SCHEDULED (2 times per day), First dose on [place] 01/18/21 at 2099, For Line Patency: Peripheral IV = 5 mL; Midline or Central Line = 10 mL/lumen. If following IV push medication, administer flush at same rate as the IV push. Flush volume is determined by type of infusion therapy being given. For non-viscous solutions use: Peripheral IV = 5 mL Midline or Central Line = 10 mL/lumen For viscous solutions (i.e. blood components, parenteral nutrition, contrast media, or after obtaining blood sample) use: Peripheral IV = 10 mL Midline or Central Line = 20 mL/lumen 2049 (Not Given - Provider: Anya Huitron RN - Reason: Other) 0950 (Not Given - Provider: Carolin Roberts RN - Reason: Patient/family refused)2120 (Not Given - Provider: Chacho Richardson RN - Reason: IV Fluid Infusing) 0939 (Not Given - Provider: Sadaf Tuttle RN - Reason: IV Fluid Infusing)2099 (Due) thiamine (B-1) injection 100 mg 100 mg, Intravenous, DAILY, First dose on [place] 01/18/21 at 1700 1812 (Given - Provider: Aníbal Han, CATHIE) 0951 (Given - Provider: Carolin Roberts, CATHIE) 0904 (Given - Provider: Sadaf Tuttle RN) Continuous Medication Order 01/18/2021 01/19/2021 01/20/2021 dextrose 5 % and 0.45 % sodium chloride infusion Intravenous, at 75 mL/hr, CONTINUOUS, Starting on Fri01/19/21 at 0600 0737 (New Bag - Provider: Anya Huitron RN)1345 (Rate/Dose Change - Provider: Carolin Roberts, CATHIE)1853 (New Bag - Provider: Carolin Roberts RN) lactated ringers infusion (CANCELED) Intravenous, at 50 mL/hr, CONTINUOUS, Starting on [place] 01/18/21 at 0600, Upon admission to sameday - please start iv if patient does not have iv access. Use 500ml NS for patients on dialysis., Pre-op (day of surgery) 0614 (New Bag - Provider: Eugenia Baez RN)1656 (Stopped - Provider: Aníbal Han RN) lactated ringers infusion (CANCELED) Intravenous, at 125 mL/hr, CONTINUOUS, Starting on [place] 01/18/21 at 1700 1703 (New Bag - Provider: Aníbal Han RN) 0950 (Stopped - Provider: Carolin Roberts, CATHIE) PRN Medication Order 01/18/2021 01/19/2021 01/20/2021 0.9 % sodium chloride infusion 25 mL, Intravenous, at 100 mL/hr, PRN, If patient receiving piggyback infusions without ordered maintenance IV fluids or with frequent/long duration piggyback infusions, Starting on [place] 01/18/21 at 1634, Administer at the same rate as the piggyback being infused. albuterol (PROVENTIL) nebulizer solution 2.5 mg 2.5 mg, Nebulization, EVERY 6 HOURS PRN, Wheezing, Starting on [place] 01/18/21 at 1340 1348 (Given - Provider: Umm Henriquez RN) albuterol (PROVENTIL) nebulizer solution 2.5 mg 2.5 mg, Nebulization, EVERY 4 HOURS PRN, Wheezing, Starting on Fri01/19/21 at 1415 2113 (Given - Provider: Brandon Gonzalez RCP) 1021 (Given - Provider: Berkley Britt RCP) ALPRAZolam (NIRAVAM) dissolvable tablet 0.25 mg (CANCELED) 0.25 mg, Oral, PRN, Anxiety, Starting on [place] 01/18/21 at 0535, Pre-op (day of surgery) 0601 (Given - Provider: Eugenia Baez RN) HYDROmorphone (DILAUDID) injection 0.5 mg (CANCELED) 0.5 mg, Intravenous, EVERY 5 MIN PRN, Pain Severe (7-10), Starting on [place] 01/18/21 at 0634, For 4 doses, Phase I - Initial therapy for severe pain. Restricted to a 50 minute time frame starting when the patient can verbally state their pain score., PACU only 1105 (Given - Provider: Umm Henriquez RN) LORazepam (ATIVAN) injection 0.5 mg (COMPLETED) 0.5 mg, Intravenous, EVERY 15 MIN PRN, Anxiety, Starting on [place] 01/18/21 at 1309, For 2 doses, PACU only 1313 (Given - Provider: Augustina Howell RN)1340 (Given - Provider: Umm Henriquez RN) LORazepam (ATIVAN) injection 1 mg(Linked Group 1) 1 mg, Intravenous, EVERY 1 HOUR PRN (WITHDRAWAL), Withdrawal, For alcohol withdrawal., Starting on [place] 01/18/21 at 1634, For CIWA score 8 to 10. If both oral and intravenous CIWA medications ordered, use intravenous if unable to tolerate oral equivalent. Reassess CIWA one hour after each dose of medication and as needed. LORazepam (ATIVAN) injection 2 mg(Linked Group 1) 2 mg, Intravenous, EVERY 1 HOUR PRN (WITHDRAWAL), Withdrawal, For alcohol withdrawal., Starting on [place] 01/18/21 at 1634, For CIWA score 11 to 15. If both oral and intravenous CIWA medications ordered, use intravenous if unable to tolerate oral equivalent. Reassess CIWA one hour after each dose of medication and as needed. LORazepam (ATIVAN) injection 3 mg(Linked Group 1) 3 mg, Intravenous, EVERY 1 HOUR PRN (WITHDRAWAL), Withdrawal, For alcohol withdrawal., Starting on [place] 01/18/21 at 1634, For CIWA score 16 to 20. If both oral and intravenous CIWA medications ordered, use intravenous if unable to tolerate oral equivalent. Reassess CIWA one hour after each dose of medication and as needed. LORazepam (ATIVAN) injection 4 mg(Linked Group 1) 4 mg, Intravenous, EVERY 1 HOUR PRN (WITHDRAWAL), Withdrawal, For alcohol withdrawal., Starting on [place] 01/18/21 at 1634, For CIWA score greater than 20. If both oral and intravenous CIWA medications ordered, use intravenous if unable to tolerate oral equivalent. Reassess CIWA one hour after each dose of medication and as needed. LORazepam (ATIVAN) tablet 1 mg(Linked Group 1) 1 mg, Oral, EVERY 1 HOUR PRN (WITHDRAWAL), For alcohol withdrawal., Starting on [place] 01/18/21 at 1634, For CIWA score 8 to 10. Reassess CIWA one hour after each dose of medication and as needed. LORazepam (ATIVAN) tablet 2 mg(Linked Group 1) 2 mg, Oral, EVERY 1 HOUR PRN (WITHDRAWAL), For alcohol withdrawal., Starting on [place] 01/18/21 at 1634, For CIWA score 11 to 15. Reassess CIWA one hour after each dose of medication and as needed. LORazepam (ATIVAN) tablet 3 mg(Linked Group 1) 3 mg, Oral, EVERY 1 HOUR PRN (WITHDRAWAL), For alcohol withdrawal., Starting on [place] 01/18/21 at 1634, For CIWA score 16 to 20. Reassess CIWA one hour after each dose of medication and as needed. LORazepam (ATIVAN) tablet 4 mg(Linked Group 1) 4 mg, Oral, EVERY 1 HOUR PRN (WITHDRAWAL), For alcohol withdrawal., Starting on [place] 01/18/21 at 1634, For CIWA score greater than 20. Reassess CIWA one hour after each dose of medication and as needed. morphine sulfate (PF) injection 2 mg(Linked Group 2) 2 mg, Intravenous, EVERY 2 HOURS PRN, Pain Moderate (4-6), Starting on [place] 01/18/21 at 1634, If oral and IV narcotics ordered, use oral first and only use IV if oral is ineffective or cannot take oral. Do Not give oral and IV within 1 hour of each other unless specifically ordered. 184 (See Alternative - Provider: Aníbal Han RN)2046 (See Alternative - Provider: Anya Huitron RN) 003 (See Alternative - Provider: Anya Huitron RN)0440 (See Alternative - Provider: Anya Huitron RN)0709 (See Alternative - Provider: Anya Huitron RN)0954 (See Alternative - Provider: Carolin Roberts, CATHIE) 0902 (See Alternative - Provider: Sadaf Tuttle, CATHIE) morphine sulfate (PF) injection 4 mg(Linked Group 2) 4 mg, Intravenous, EVERY 2 HOURS PRN, Pain Severe (7-10), Starting on [place] 01/18/21 at 1634, If oral and IV narcotics ordered, use oral first and only use IV if oral is ineffective or cannot take oral. Do Not give oral and IV within 1 hour of each other unless specifically ordered. 184 (Given - Provider: Aníbal Han RN)2046 (Given - Provider: Anya Huitron RN) 36 (Given - Provider: Anya Huitron RN)044 (Given - Provider: Anya Huitron RN)0709 (Given - Provider: Anya Huitron RN)0954 (Given - Provider: Carolin Roberts, CATHIE) 0902 (Given - Provider: Sadaf Tuttle, CATHIE) ondansetron (ZOFRAN) injection 4 mg(Linked Group 3) 4 mg, Intravenous, EVERY 6 HOURS PRN, Nausea, Vomiting, Starting on [place] 5/ at 1634, Administer if oral route cannot be used. 172 (Given - Provider: Aníbal Han RN) ondansetron (ZOFRAN-ODT) disintegrating tablet 4 mg(Linked Group 3) 4 mg, Oral, EVERY 8 HOURS PRN, Nausea, Vomiting, Starting on [place] 5/21 at 1634 1720 (See Alternative - Provider: Aníbal Han RN) oxyCODONE-acetaminophen (PERCOCET) 5-325 MG per tablet 1 tablet(Linked Group 4) 1 tablet, Oral, EVERY 4 HOURS PRN, Pain Moderate (4-6), Starting on Fri01/19/21 at 1211, Maximum dose of acetaminophen is 4000 mg from all sources in 24 hours. 1349 (See Alternative - Provider: Carolin Roberts RN)1853 (See Alternative - Provider: Carolin Roberts RN)2354 (See Alternative - Provider: Chacho Richardson RN) 0601 (See Alternative - Provider: Chacho Richardson RN)1012 (See Alternative - Provider: Sadaf Tuttle RN) oxyCODONE-acetaminophen (PERCOCET) 5-325 MG per tablet 2 tablet(Linked Group 4) 2 tablet, Oral, EVERY 4 HOURS PRN, Pain Severe (7-10), Starting on Fri01/19/21 at 1211, Maximum dose of acetaminophen is 4000 mg from all sources in 24 hours. 1349 (Given - Provider: Carolin Roberts RN)1853 (Given - Provider: Carolin Roberts RN)2354 (Given - Provider: Chacho Richardson RN) 0601 (Given - Provider: Chacho Richardson RN)1012 (Given - Provider: Sadaf Tuttle, CATHIE) sodium chloride flush 0.9 % injection 10 mL 10 mL, Intravenous, PRN, Line Care, After every IV line use, Starting on [place] 01/18/21 at 1634 sodium chloride flush 0.9 % injection 5-40 mL 5-40 mL, Intravenous, PRN, Line Care, After every IV line use, Starting on [place] 01/18/21 at 1634, For Line Patency: Peripheral IV = 5 mL; Midline or Central Line = 10 mL/lumen. If following IV push medication, administer flush at same rate as the IV push. Flush volume is determined by type of infusion therapy being given. For non-viscous solutions use: Peripheral IV = 5 mL Midline or Central Line = 10 mL/lumen For viscous solutions (i.e. blood components, parenteral nutrition, contrast media, or after obtaining blood sample) use: Peripheral IV = 10 mL Midline or Central Line = 20 mL/lumen Linked Groups Order Group 1: LORazepam (ATIVAN) tablet 1 mgJump to med 1 mg, Oral, EVERY 1 HOUR PRN (WITHDRAWAL), For alcohol withdrawal., Starting on [place] 01/18/21 at 1634
For CIWA score 8 to 10. Reassess CIWA one hour after each dose of medication and as needed.
Or LORazepam (ATIVAN) injection 1 mgJump to med 1 mg, Intravenous, EVERY 1 HOUR PRN (WITHDRAWAL), Withdrawal, For alcohol withdrawal., Starting on [place] 01/18/21 at 1634
For CIWA score 8 to 10. If both oral and intravenous CIWA medications ordered, use intravenous if unable to tolerate oral equivalent. Reassess CIWA one hour after each dose of medication and as needed.
Or LORazepam (ATIVAN) tablet 2 mgJump to med 2 mg, Oral, EVERY 1 HOUR PRN (WITHDRAWAL), For alcohol withdrawal., Starting on [place] 01/18/21 at 1634
For CIWA score 11 to 15. Reassess CIWA one hour after each dose of medication and as needed.
Or LORazepam (ATIVAN) injection 2 mgJump to med 2 mg, Intravenous, EVERY 1 HOUR PRN (WITHDRAWAL), Withdrawal, For alcohol withdrawal., Starting on [place] 01/18/21 at 1634
For CIWA score 11 to 15. If both oral and intravenous CIWA medications ordered, use intravenous if unable to tolerate oral equivalent. Reassess CIWA one hour after each dose of medication and as needed.
Or LORazepam (ATIVAN) tablet 3 mgJump to med 3 mg, Oral, EVERY 1 HOUR PRN (WITHDRAWAL), For alcohol withdrawal., Starting on [place] 01/18/21 at 1634
For CIWA score 16 to 20. Reassess CIWA one hour after each dose of medication and as needed.
Or LORazepam (ATIVAN) injection 3 mgJump to med 3 mg, Intravenous, EVERY 1 HOUR PRN (WITHDRAWAL), Withdrawal, For alcohol withdrawal., Starting on [place] 01/18/21 at 1634
For CIWA score 16 to 20. If both oral and intravenous CIWA medications ordered, use intravenous if unable to tolerate oral equivalent. Reassess CIWA one hour after each dose of medication and as needed.
Or LORazepam (ATIVAN) tablet 4 mgJump to med 4 mg, Oral, EVERY 1 HOUR PRN (WITHDRAWAL), For alcohol withdrawal., Starting on [place] 01/18/21 at 1634
For CIWA score greater than 20. Reassess CIWA one hour after each dose of medication and as needed.
Or LORazepam (ATIVAN) injection 4 mgJump to med 4 mg, Intravenous, EVERY 1 HOUR PRN (WITHDRAWAL), Withdrawal, For alcohol withdrawal., Starting on [place] 01/18/21 at 1634
For CIWA score greater than 20. If both oral and intravenous CIWA medications ordered, use intravenous if unable to tolerate oral equivalent. Reassess CIWA one hour after each dose of medication and as needed.
Group 2: morphine sulfate (PF) injection 2 mgJump to med 2 mg, Intravenous, EVERY 2 HOURS PRN, Pain Moderate (4-6), Starting on [place] 01/18/21 at 1634
If oral and IV narcotics ordered, use oral first and only use IV if oral is ineffective or cannot take oral. Do Not give oral and IV within 1 hour of each other unless specifically ordered.
Or morphine sulfate (PF) injection 4 mgJump to med 4 mg, Intravenous, EVERY 2 HOURS PRN, Pain Severe (7-10), Starting on [place] 01/18/21 at 1634
If oral and IV narcotics ordered, use oral first and only use IV if oral is ineffective or cannot take oral. Do Not give oral and IV within 1 hour of each other unless specifically ordered.
Group 3: ondansetron (ZOFRAN-ODT) disintegrating tablet 4 mgJump to med 4 mg, Oral, EVERY 8 HOURS PRN, Nausea, Vomiting, Starting on [place] 01/18/21 at 1634 Or ondansetron (ZOFRAN) injection 4 mgJump to med 4 mg, Intravenous, EVERY 6 HOURS PRN, Nausea, Vomiting, Starting on [place] 01/18/21 at 1634
Administer if oral route cannot be used.
Group 4: oxyCODONE-acetaminophen (PERCOCET) 5-325 MG per tablet 1 tabletJump to med 1 tablet, Oral, EVERY 4 HOURS PRN, Pain Moderate (4-6), Starting on Fri01/19/21 at 1211
Maximum dose of acetaminophen is 4000 mg from all sources in 24 hours.
Or oxyCODONE-acetaminophen (PERCOCET) 5-325 MG per tablet 2 tabletJump to med 2 tablet, Oral, EVERY 4 HOURS PRN, Pain Severe (7-10), Starting on Fri01/19/21 at 1211
Maximum dose of acetaminophen is 4000 mg from all sources in 24 hours.
Care Teams (unrecognized sec tion and content) Foreign Food Cook Specialty Relationship Specialty Start Date End Date No, Physician [facility] PCP - General 10/22/21 Foreign Food Cook Specialty Relationship Specialty Start Date End Date No, Physician [facility] PCP - General 10/22/21 Team Status: Active Member Role Status Dates Dr. Sarai Watkins MD Family Provider Active Dr. Sarai Watkins MD Primary Care Provider Active Team Status: Inactive Member Role Status Dates Dr. Sarai Watkins MD Primary Care Provider, Referring Provider Active Gris White [employer], [employer]-C Attending Provider Active Team Status: Inactive Member Role Status Dates Dr. Sarai Watkins MD Primary Care Provider, Referring Provider Active Jasmyne Sparks PA, PA Attending Provider Active Team Status: Active Member Role Status Dates Dr. Sarai Watkins MD Primary Care Provider Active Dr. Jason Reardon DO Emergency Provider Active Dr. Jennifer Christopher MD Admit Provider, Attending Provider, Other Provider Active Team Status: Active Member Role Status Dates Dr. Sarai Watkins MD Primary Care Provider Active Dr. Jason Reardon DO Emergency Provider Active Dr. Jennifer Christopher MD Admit Provider, Other Provider Active Dr. Henrik Werner MD Attending Provider, Other Provid er Active Team Status: Active Member Role Status Dates Dr. Sarai Watkins MD Primary Care Provider Active Dr. Jason Reardon DO Emergency Provider Active Dr. Jennifer Christopher MD Admit Provider, Other Provider Active Dr. Maurice Barrientos MD Attending Provider, Other Provider Active Dr. Henrik Werner MD Other Provider Active Team Status: Inactive Member Role Status Dates Dr. Sarai Watkins MD Primary Care Provider Active Gris White [employer], [employer]-C Attending Provider, Referrin g Provider Active Team Status: Inactive Member Role Status Dates Dr. Sarai Watkins MD Primary Care Provider Active Dr. Luis Benavides MD Attending Provider, Referring Pro vider Active Team Status: Inactive Member Role Status Dates Dr. Sarai Watkins MD Primary Care Provider Active Jasmyne Sparks PA, PA Attending Provider, Referr ing Provider Active Team Status: Active Member Role Status Dates Dr. Sarai Watkins MD Primary Care Provider Active Jasmyne Sparks PA, PA Attending Provider, Referr ing Provider Active Team Status: Inactive Member Role Status Dates Dr. Sarai Watkins MD Primary Care Provider Active Dr. Jason Reardon DO Emergency Provider Active Dr. Jennifer Christopher MD Admit Provider, Other Provider Active Dr. Maurice Barrientos MD Attending Provider Active Dr. Henrik Werner MD Other Provider Active Team Status: Inactive Member Role Status Dates Dr. Sarai Watkins MD Primary Care Provider Active Dr. Claudia Craft MD Emergency Provider Active Team Status: Active Member Role Status Dates Dr. Sarai Watkins MD Primary Care Provider Active Dr. Sarai White MD Attending Provider Active Dr. Jennifer Christopher MD Referring Provider Active Team Status: Active Member Role Status Dates Dr. Sarai Watkins MD Primary Care Provider Active Dr. Sarai White MD Attending Provider, Referring Provider Active Team Status: Active Member Role Status Dates Dr. Sarai Watkins MD Primary Care Provider Active Dr. Eyad Dwyer MD Attending Provider Activ e Team Status: Inactive Member Role Status Dates Dr. Sraai Watkins MD Primary Care Provider Active Dr. Claudia Craft MD Attending Provider, Emergency Provider Active Team Status: Inactive Member Role Status Dates Dr. Sarai Watkins MD Primary Care Provider Active Dr. Michael Valdez DO Emergency Provider Active Foreign [employer] Specialty Relationship Specialty Start Date End Date Sarai Watkins MD [address] [place] [address] PCP - General Family Medicine 10/17/22 Foreign [employer] Cook Specialty Relationship Specialty Start Date End Date Sarai Watkins MD PCP - General Family Medicine 10/02/16 Team Status: Inactive Member Role Status Dates Dr. Sarai Watkins MD Primary Care Provider Active Dr. Michael Valdez DO Attending Provider, Emergency Provide r Active Team Status: Active Member Role Status Dates Dr. Sarai Watkins MD Primary Care Provider Active Simran Bravo NP [employer]-C Attending Provider Active Team Status: Inactive Member Role Status Dates Dr. Sarai Watkins MD Primary Care Provider Active Simran Bravo NP [employer]-C Attending Provider Active [employer] Specialty Relationship Specialty Start Date End Date Sarai Watkins MD PCP - General Family Medicine 10/02/16 Foreign Food Cook Specialty Relationship Specialty Start Date End Date Sarai Watkins MD PCP - General Family Medicine 10/02/16 Foreign Food Cook Specialty Relationship Specialty Start Date End Date Sarai Watkins MD [address] [place] [address] PCP - General Family Medicine 10/17/22 Team Status: Inactive Member Role Status Dates Dr. Sarai Watkins MD Primary Care Provider Active Dr. Giovanna Hernandez DO Attending Provider, Fadumo mcclellan Active Team Status: Inactive Member Role Status Dates Dr. Sarai Watkins MD Primary Care Provider Active LAZ MitchellC Attending Provider, Referring Pr heri Active Foreign [employer] Specialty Relationship Specialty Start Date End Date Sarai Watkins MD PCP - General Family Medicine 10/02/16 Team Status: Inactive Member Role Status Dates Dr. Sarai Watkins MD Primary Care Provider Active Gris White NP, [employer]-C Attending Provider, Referrin g Provider Active BHAVNA HICKS Other Provider Active Foreign [employer] Cook Specialty Relationship Specialty Start Date End Date Sarai Watkins MD PCP - General Family Medicine 10/02/16 Foreign Food Cook Specialty Relationship Specialty Start Date End Date Sarai Watkins MD [address] [facility] [address] [place] [address] PCP - General Family Medicine 10/17/22 Team Status: Inactive Member Role Status Dates Dr. Sarai Watkins MD Primary Care Provider Active Dr. Anatoliy Lugo MD Attending Provider, Referrin g Provider Active Team Status: Active Member Role Status Dates Dr. Sarai Watkins MD Primary Care Provider Active Dr. Bartolo Callejas MD Emergency Provider Active Dr. Hung Vinson MD Admit Provider, Attending Pro vider Active Team Status: Active Member Role Status Dates Dr. Sarai Watkins MD Primary Care Provider Active Dr. Bartolo Callejas MD Emergency Provider Active Dr. Hung Vinson MD Admit Provider, Other Provide r Active Dr. Rose Marie Baekr MD Attending Provider, Other Provid er Active Team Status: Inactive Member Role Status Dates Dr. Sarai Watkins MD Primary Care Provider Active Dr. Bartolo Callejas MD Emergency Provider Active Dr. Hung Vinson MD Admit Provider, Other Provide r Active Dr. Rose Marie Baker MD Attending Provider Active Team Status: Inactive Member Role Status Dates Dr. Sarai Watkins MD Primary Care Provider Active Lisa Rodriguez [employer]ER-C Attending Provider, Referring Pro vider Active Team Status: Active Member Role Status Dates Dr. Sarai Watkins MD Primary Care Provider Active Dr. Anatoliy Lugo MD Attending Provider, Referrin g Provider Active [employer] Specialty Relationship Specialty Start Date End Date Sarai Watkins MD PCP - General Family Medicine 10/02/16 Team Status: Inactive Member Role Status Dates Dr. Sarai Watkins MD Primary Care Provi thelma, Attending Provider, Referring Provider Active Team Status: Inactive Member Role Status Dates Dr. 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 Sarai Watkins MD Primary Care Provider, Referring Provider Active Dr. Ike Gibbs MD Attending Provider Active Team Status: Inactive Member Role Status Dates Dr. Sarai Watkins MD Primary Care Provider Active Dr. 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 Sarai Watkins MD Primary Care Provider Active Team Status: Inactive Member Role Status Dates Dr. Sarai Watkins MD Primary Care Provider Active Start: August 06, 2024 End: August 06, 2024 Dr. Sarai Watkins MD Attending Provider Active Start: August 06, 2024 End: August 06, 2024 Dr. Sarai Watkins MD Referring Provider Active Start: August 06, 2024 End: August 06, 2024 Team Status: Inactive Member Role Status Dates Dr. Sarai Watkins MD Primary Care Provider Active Start: September 10, 2024 End: September 10, 2024 Dr. Ike Gibbs MD Attending Provider Active Start: September 10, 2024 End: September 10, 2024 Dr. Ike Gibbs MD Referring Provider Active Start: September 10, 2024 End: September 10, 2024 Jasmyne BREAUX PA Other Provider Active Start: September 10, 2024 End: September 10, 2024 Team Status: Inactive Member Role Status Dates Dr. Sarai Watkins MD Primary Care Provider Active Start: September 17, 2024 End: September 17, 2024 Jasmyne BREAUX PA Attending Provider Active Start: September 17, 2024 End: September 17, 2024 Jasmyne BREAUX PA Referring Provider Active Start: September 17, 2024 End: September 17, 2024 Team Status: Inactive Member Role Status Dates Dr. Sarai Watkins MD Primary Care Provider Active Start: September 27, 2024 End: September 27, 2024 Dr. Sarai Watkins MD Referring Provider Active Start: September 27, 2024 End: September 27, 2024 Dr. Ike Gibbs MD Attending Provider Active Start: September 27, 2024 End: September 27, 2024 Team Status: Inactive Member Role Status Dates Dr. Sarai Watkins MD Primary Care Provider Active Start: September 27, 2024 End: September 29, 2024 Dr. Bruce Boucher MD Emergency Provider Active Sta rt: September 27, 2024 End: September 29, 2024 Dr. Henrik Werner MD Admit Provider Active Star t: September 27, 2024 End: September 29, 2024 Dr. Henrik Werner MD Other Provider Active Star t: September 27, 2024 End: September 29, 2024 Dr. Ike Gibbs MD Attending Provider Active Start: September 27, 2024 End: September 29, 2024 Team Status: Active Member Role Status Dates Dr. Sarai Watkins MD Primary Care Provider Active Start: September 27, 2024 Dr. Eyad Dwyer MD Attending Provider Activ e Start: September 27, 2024 Team Status: Active Member Role Status Dates Dr. Sarai Watkins MD Primary Care Provider Active Start: September 28, 2024 Dr. Bruce Boucher MD Emergency Provider Active Sta rt: September 28, 2024 Dr. Henrik Werner MD Admit Provider Active Star t: September 28, 2024 Dr. Henrik Werner MD Attending Provider Active Start: September 28, 2024 Dr. Henrik Werner MD Other Provider Active Star t: September 28, 2024 Team Status: Inactive Member Role Status Dates Dr. Sarai Watkins MD Primary Care Provider Active Start: September 28, 2024 End: September 28, 2024 Dr. Ike Gibbs MD Attending Provider Active Start: September 28, 2024 End: September 28, 2024 Dr. Ike Gibbs MD Referring Provider Active Start: September 28, 2024 End: September 28, 2024 Team Status: Active Member Role Status Dates Dr. Sarai Watkins MD Primary Care Provider Active Start: September 29, 2024 Dr. Bruce Boucher MD Emergency Provider Active Sta rt: September 29, 2024 Dr. Henrik Werner MD Admit Provider Active Star t: September 29, 2024 Dr. Henrik Werner MD Other Provider Active Star t: September 29, 2024 Dr. Ike Gibbs MD Attending Provider Active Start: September 29, 2024 Dr. Ike Gibbs MD Other Provider Active Sta rt: September 29, 2024 Team Status: Inactive Member Role Status Dates Dr. Sarai Watkins MD Primary Care Provider Active Start: October 18, 2024 End: October 18, 2024 Dr. Sarai Watkins MD Attending Provider Active Start: October 18, 2024 End: October 18, 2024 Dr. Sarai Watkins MD Referring Provider Active Start: October 18, 2024 End: October 18, 2024 Dr. Luis Benavides MD Other Provider Active Start : October 18, 2024 End: October 18, 2024 Team Status: Inactive Member Role Status Dates Dr. Sarai Watkins MD Primary Care Provider Active Start: November 05, 2024 End: November 05, 2024 Dr. Sarai Watkins MD Referring Provider Active Start: November 05, 2024 End: November 05, 2024 Jasmyne Sparks PA, PA Attending Provider Active Start: November 05, 2024 End: November 05, 2024 Team Status: Inactive Member Role Status Dates Dr. Sarai Watkins MD Primary Care Provider Active Start: November 05, 2024 End: November 05, 2024 Jasmyne Sparks PA PA Attending Provider Active Start: November 05, 2024 End: November 05, 2024 Jasmyne Sparks PA PA Referring Provider Active Start: November 05, 2024 End: November 05, 2024 Team Status: Inactive Member Role Status Dates Dr. Sarai Watkins MD Primary Care Provider Active Start: December 07, 2024 End: December 07, 2024 Jasmyne Sparks PA, PA Attending Provider Active Start: December 07, 2024 End: December 07, 2024 Jasmyne Sparks PA, PA Referring Provider Active Start: December 07, 2024 End: December 07, 2024 Team Status: Active Member Role Status Dates Dr. 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 Sarai Watkins MD Primary Care Provider Active Start: December 14, 2024 End: December 29, 2024 Jasmyne BREAUX PA Attending Provider Active Start: December 14, 2024 End: December 29, 2024 Jasmyne BREAUX PA Referring Provider Active Start: December 14, 2024 End: December 29, 2024 Team Status: Inactive Member Role Status Dates Dr. Sarai Watkins MD Primary Care Provider Active Start: February 08, 2025 End: February 08, 2025 Dr. Sarai Watkins MD Referring Provider Active Start: February 08, 2025 End: February 08, 2025 Dr. Ike Gibbs MD Attending Provider Active Start: February 08, 2025 End: February 08, 2025 Team Status: Active Member Role/Relationship Status Dates Dr. Sarai Watkins MD Primary care physician Active Team Status: Inactive Member Role/Relationship Status Dates Dr. Sarai Watkins MD Primary care physician Active Start: February 08, 2025 End: February 08, 2025 Dr. Sarai Watkins MD Referring Provider Active Start: February 08, 2025 End: February 08, 2025 Dr. Ike Gibbs MD Attending physician Active Start: February 08, 2025 End: February 08, 2025 Team Status: Inactive Member Role/Relationship Status Dates Dr. Sarai Watkins MD Primary care physician Active Start: May 20, 2025 End: May 20, 2025 Dr. Sarai Watkins MD Referring Provider Active Start: May 20, 2025 End: May 20, 2025 Jasmyne BREAUX, PA Attending physician Active Start: May 20, 2025 End: May 20, 2025 Foreign Food Cook Specialty Relationship Specialty Start Date End Date Sarai Watkins MD [address] [place] [address] PCP - General Family Medicine 10/17/22 Goals (unrecognized section and content) Goals may be documented in a n alternate sectionGoals may be documented in an alternate sectionGoals may be documented in an alternate sectionGoals may be documented in an alternate sectionGoals may be documented in an alternate sectionGoals may be documented in an alternate sectionGoals may be documented in an alternate sectionGoals may be documented in an alternate sectionGoals may be documented in an alternate sectionGoals may be documented in an alternate sectionGoals may be documented in an alternate section Source Comments (unrecognize d section and content) In the event this informatio n is protected by the Federal Confidentiality of Alcohol and Drug Abuse Patient Records regulations: The Federal rules restrict any use of the information to criminally investigate or prosecute any alcohol or drug abuse patient.[facility] the event this information is protected by the Federal Confidentiality of Alcohol and Drug Abuse Patient Records regulations: The Federal rules restrict any use of the information to criminally investigate or prosecute any alcohol or drug abuse patient.[facility] the event this information is protected by the Federal Confidentiality of Alcohol and Drug Abuse Patient Records regulations: The Federal rules restrict any use of the information to criminally investigate or prosecute any alcohol or drug abuse patient.[facility] the event this information is protected by the Federal Confidentiality of Alcohol and Drug Abuse Patient Records regulations: The Federal rules restrict any use of the information to criminally investigate or prosecute any alcohol or drug abuse patient.[facility] the event this information is protected by the Federal Confidentiality of Alcohol and Drug Abuse Patient Records regulations: The Federal rules restrict any use of the information to criminally investigate or prosecute any alcohol or drug abuse patient.[facility]In the event this information is protected by the Federal Confidentiality of Alcohol and Drug Abuse Patient Records regulations: The Federal rules restrict any use of the information to criminally investigate or prosecute any alcohol or drug abuse patient.[facility] HospitalIn the event this information is protected by the Federal Confidentiality of Alcohol and Drug Abuse Patient Records regulations: The Federal rules restrict any use of the information to criminally investigate or prosecute any alcohol or drug abuse patient.[facility] HospitalIn the event this information is protected by the Federal Confidentiality of Alcohol and Drug Abuse Patient Records regulations: The Federal rules restrict any use of the information to criminally investigate or prosecute any alcohol or drug abuse patient.[facility] HospitalIn the event this information is protected by the Federal Confidentiality of Alcohol and Drug Abuse Patient Records regulations: The Federal rules restrict any use of the information to criminally investigate or prosecute any alcohol or drug abuse patient.[facility] HospitalIn the event this information is protected by the Federal Confidentiality of Alcohol and Drug Abuse Patient Records regulations: The Federal rules restrict any use of the information to criminally investigate or prosecute any alcohol or drug abuse patient.[facility] Hospital[facility] the event this information is protected by the Federal Confidentiality of Alcohol and Drug Abuse Patient Records regulations: The Federal rules restrict any use of the information to criminally investigate or prosecute any alcohol or drug abuse patient.[facility] FOR RECORDS PERTAINING TO PATIENTS WHO ARE OR HAVE BEEN ENROLLED IN A CHEMICAL DEPENDENCY/SUBSTANCEABUSE PROGRAM, SOME INFORMATION MAY BE OMITTED. This clinical summary was aggregated from multiple sources. Caution should be exercised in using it in the provision of clinical care. This summary normalizes information from multiple sources, and as a consequence, information in this document may materially change the coding, format and clinical context of patient data. In addition, data may be omitted in some cases. CLINICAL DECISIONS SHOULD BE BASED ON THE PRIMARY CLINICAL RECORDS. [facility] [employer] [facility] provides no warranty or guarantee of the accuracy or completeness of information in this document.
== END 2025-06-23 23:59 | disposition home or self-care (01) ==
PROVIDERS: PCP Family Medicine; Referring Provider Internal Medicine; Visit Provider Internal Medicine
DX: K76.0 Fatty (change of) liver, not elsewhere classified (principal); I42.8 Other cardiomyopathies; K70.0 Alcoholic fatty liver
CPT/HCPCS: 76705; 76981